=== PATIENT | male | born 1970 | race Caucasian/White ===

== ENCOUNTER 2021-04-01 22:09 | Inpatient (IN) ==
[2021-04-01] MEDS ORDERED: ACETAMINOPHEN 1,000 MG/100 ML VIAL IV STA (23:56)
[2021-04-02 00:09] LABS: Basophils # (auto) 0.03 K/uL (0-0.2); Basophils % (auto) 0.3 %; Eosinophils # (auto) 0.46 K/uL (0-0.5); Hematocrit (blood only) 43.5 % (42-52); Immature Granulocytes # (auto) 0.03 K/uL (0.00-0.02); Immature Granulocytes % (auto) 0.3 %; Lymphocytes # (auto) 1.76 K/uL (1.2-3.4); Lymphocytes % (auto) 15.3 %; Mean Corpuscular Hemoglobin 31.4 pg (25-34); Mean Corpuscular Hgb Conc 34.5 g/dL (32-36); Mean Corpuscular Volume 91.2 fL (80-100); Mean Platelet Volume 10.1 fL (7.4-10.4); Monocytes # (auto) 0.94 K/uL (0.11-0.59); Monocytes % (auto) 8.2 %; Neutrophils # (auto) 8.31 K/uL (1.4-6.5); Neutrophils % (auto) 71.9 %; Platelet Count 216 K/uL (130-400); RDW Coefficient of Variation 13.8 % (11.5-14.5); RDW Standard Deviation 46.3 fL (36.4-46.3); Red Blood Count 4.77 M/uL (4.7-6.1); White Blood Count 11.53 K/uL (4.8-10.8)
[2021-04-02 00:21] LABS: INR 2.3 (0.9-1.1); Partial Thromboplastin Ratio 1.5; Partial Thromboplastin Time 40.1 Seconds (21.0-31.0); Prothrombin Time 21.9 Seconds (9.0-12.0)
[2021-04-02 00:26] LABS: Alanine Aminotransferase 25 U/L (12-78); Albumin Level 3.6 gm/dl (3.4-5.0); Aspartate Aminotransferase 14 U/L (15-37); BUN Creatinine Ratio 17.1 (10-20); Blood Urea Nitrogen 12 mg/dl (7-18); Calcium 8.7 mg/dl (8.5-10.1); Carbon Dioxide 29 mmol/L (21-32); Chloride 108 mmol/L (98-107); Creatinine Clr Calc Pharmacy 124.6 ml/min; Est GFR (African American) 122.7 ml/min; Est GFR (Non-African American) 105.9 ml/min; Glucose 91 mg/dl (70-99); Potassium 3.7 mmol/L (3.5-5.1); Sodium 141 mmol/L (136-145)
[2021-04-02 00:31] LABS: Albumin Globulin Ratio 0.9 (0.9-2); Alkaline Phosphatase 95 U/L (45-117); Bilirubin,Total 0.6 mg/dl (0.2-1); Total Protein 7.6 gm/dl (6.4-8.2); Troponin I < 0.015 ng/ml (0-0.045)
--- NOTE | 2021-04-02 01:58 | Emergency Department Note ---
History of Present Illness General Chief complaint: Leg Injury/Pain Stated complaint: LEFT LEG PAIN SWELLING TINGLING-JUST GOT OFF FLHT Time Seen by Provider: 04/01/21 23:45 History of Present Illness Maximum Pain Intensity: 2 This 51-year-old currently on Coumadin for DVT in the right leg presents to the ER complaining of left leg pain and swelling with ongoing cough and congestion who is an appointment later this month with pulmonology and is supposed to have a CAT scan of his chest Location: Left leg and chest Quality: Uncomfortable Severity: Moderate Duration: Leg pain started today Timing: Patient flew back from [place] today Context: Family was concerned and came in Modifying factors: better with elevation of the leg; worse with activity Patient states he still has a cough and has some breathing issues. He has a scheduled CT of his chest later this month. He would like to have it now. Patient is on Coumadin for DVT of the right leg. Symptoms today are now in the left leg. He has not missed a dose. Patient denies abdominal pain, fever, chills, numbness, tingling. No trauma to the area. He does not smoke. Home Medications Medication Instructions Recorded Confirmed Type amoxicillin-pot clavulanate 1 tab PO BID #20 tab 01/09/21 Rx [Augmentin] ibuprofen [Advil] 400 mg PO DIRECTED PRN 01/09/21 01/09/21 History Allergies Allergy/AdvReac Type Severity Reaction Status Date / Time No Known Allergies Allergy Verified 01/09/21 16:11 Past Med/Surg History Medical History (Updated 04/02/21 @ 14:31 by Petar Lehman MD) Abnormal CT scan, chest COVID-19 Fatigue Superficial thrombophlebitis of right leg Surgical History No pertinent past surgical history Social History Smoking Status: Never smoker Hx Alcohol Use: Yes Alcohol type: beer Hx Substance Use: No Preferred Language: Ukrainian Material Handler Required: No Beliefs That Will Affect Care: None Current Living Situation: Spouse Other Information That Helps Us Care for You: No Feels Safe at Home: Yes Safety Concerns: Feels Safe At This Time Review of Systems A total of 10 systems reviewed and were otherwise negative Physical Exam Vital Signs Vital Signs - 24 hr 04/02/21 01:31 04/02/21 02:32 04/02/21 02:59 Pulse Rate [Right Finger] 73 70 72 Respiratory Rate 20 20 20 Blood Pressure [Left Arm] 153/103 H 125/81 139/84 Blood Pressure Mean [Left Arm] 119 95 102 Pulse Oximetry 93 92 95 Oxygen Delivery Method Room Air Room Air Room Air 04/02/21 04:10 04/02/21 04:58 Pulse Rate [Right Finger] 77 70 Respiratory Rate 20 20 Blood Pressure [Left Arm] 144/85 H 134/87 Blood Pressure Mean [Left Arm] 104 102 Pulse Oximetry 92 93 Oxygen Delivery Method Room Air Room Air VITALS: Vitals are noted on the nurse's note and reviewed by myself. Vital signs stable. GENERAL: Pleasant male, in no acute distress, nondiaphoretic, well-developed we ll-nourished. SKIN: The skin was without rashes, erythema, edema, or bruising. There is no tenting of the skin. Capillary reflex less than 2 seconds. HEAD: Normocephalic atraumatic. EARS: External auditory canals clear EYES: Pupils equal round and reactive to light and accommodation. Conjunctivae without injection, sclerae without icterus. Extraocular movements intact. NOSE: Patent, turbinates without inflammation or discharge. MOUTH: Mucous membranes moist. Pharynx without erythema or exudate. Uvula midline. Airway patent. Tongue does not deviate. NECK: Supple without nuchal rigidity. No lymphadenopathy. No thyromegaly. Cervical spine is nontender. No JVD. HEART: Regular rate and rhythm LUNGS: Clear to auscultation bilaterally without wheezes, rales or rhonchi. No retractions or accessory muscle use. ABDOMEN: Positive bowel sounds x 4. Normal tympanic percussion. Soft, nontender, without masses or organomegaly. Richardson sign negative. No guarding or rebound tenderness. No CVA tenderness MUSCULOSKELETAL: No muscle atrophy, erythema, or edema noted. Left calf tender to palpation. NEURO: Patient was alert and oriented to person place and time. Normal sensat ion to light and sharp touch. No focal neurological deficits. Course Administered Medications Heparin Sodium/Dextrose (Heparin Sodium/Dextrose) 25,000 units in 500 mls @ 29 mls/hr IV .[id number] [facility]; Protocol Stop: 05/02/21 04:42 Last Admin: 04/02/21 22:15 Dose: 1,450 units/hr, 29 mls/hr Documented by: [id number] Cosigned by: [id number] Titration: 04/02/21 22:15 Dose: 1,450 units/hr, 29 mls/hr Documented by: [id number] Cosigned by: [id number] Titration: 04/02/21 19:06 Dose: 1,450 units/hr, 29 mls/hr Documented by: [id number] Cosigned by: [id number] Titration: 04/02/21 11:00 Dose: 1,450 units/hr, 29 mls/hr Documented by: [id number] Cosigned by: [id number] Admin: 04/02/21 06:50 Dose: 1,450 units/hr, 29 mls/hr Documented by: [id number] Cosigned by: [id number] Admin: 04/02/21 04:57 Dose: Not Given Documented by: [id number] Lactated Ringer's (Lr) 1,000 mls @ 50 mls/hr IV .Q20H ONE Stop: 04/03/21 02:47 Last Admin: 04/02/21 08:41 Dose: 50 mls/hr Documented by: [id number] Discontinued Medications Heparin Sodium/Dextrose (Heparin 45885 Unit/500 Ml D5w) Confirm Administered Dose 25,000 units IV .STK-MED ONE Stop: 04/02/21 04:39 Last Admin: 04/02/21 04:43 Dose: 1,450 units Documented by: [id number] Cosigned by: [id number] Acetaminophen (Ofirmev) 1,000 mg in 100 mls @ 400 mls/hr IV NOW STA Stop: 04/02/21 00:10 Last Infusion: 04/02/21 00:30 Dose: 0 mls/hr Documented by: [id number] Admin: 04/02/21 00:07 Dose: 400 mls/hr Documented by: [id number] Ioversol (Optiray 350 500ml) 117 ml IV ONCE ONE Stop: 04/02/21 04:02 Last Admin: 04/02/21 04:01 Dose: 117 ml Documented by: [id number] Medical Decision Making Medical Records Attestation: I reviewed the patient's medical records. Home Medications Current Medication List: was personally reviewed by me Laboratory Data Attestation: I reviewed the patient's lab results. Result diagrams: 04/02/21 10:22 04/02/21 10:22 Lab Results 04/01/21 04/01/21 04/01/21 Range/Units 23:58 23:58 23:58 WBC 11.53 H (4.8-10.8) K/uL RBC 4.77 (4.7-6.1) M/uL Hgb 15.0 (14.0-18.0) g/dL Hct 43.5 (42-52) % MCV 91.2 (80-100) fL MCH 31.4 (25-34) pg MCHC 34.5 (32-36) g/dL RDW Std Deviation 46.3 (36.4-46.3) fL RDW Coeff of Jose 13.8 (11.5-14.5) % Plt Count 216 (130-400) K/uL MPV 10.1 (7.4-10.4) fL Immature Gran % (Auto) 0.3 % Neut % (Auto) 71.9 % Lymph % (Auto) 15.3 % Banner % (Auto) 8.2 % Eos % (Auto) 4.0 % Baso % (Auto) 0.3 % Neut # (Auto) 8.31 H (1.4-6.5) K/uL Lymph # (Auto) 1.76 (1.2-3.4) K/uL Banner # (Auto) 0.94 H (0.11-0.59) K/uL Eos # (Auto) 0.46 (0-0.5) K/uL Baso # (Auto) 0.03 (0-0.2) K/uL Immature Gran # (Auto) 0.03 H (0.00-0.02) K/uL PT 21.9 H (9.0-12.0) Seconds INR 2.3 H (0.9-1.1) APTT 40.1 H (21.0-31.0) Seconds PTT Ratio 1.5 Sodium 141 (136-145) mmol/L Potassium 3.7 (3.5-5.1) mmol/L Chloride 108 H (98-107) mmol/L Carbon Dioxide 29 (21-32) mmol/L Anion Gap 4.0 (3-11) BUN 12 (7-18) mg/dl Creatinine 0.73 (0.6-1.4) mg/dl Est Cr Clr Drug Dosing 124.6 ml/min Est GFR ( Amer) 122.7 ml/min Est GFR (Non-Af Amer) 105.9 ml/min BUN/Creatinine Ratio 17.1 (10-20) Glucose 91 (70-99) mg/dl Calcium 8.7 (8.5-10.1) mg/dl Magnesium (1.8-2.4) mg/dl Total Bilirubin 0.6 (0.2-1) mg/dl AST 14 L (15-37) U/L ALT 25 (12-78) U/L Alkaline Phosphatase 95 (45-117) U/L Troponin I < 0.015 (0-0.045) ng/ml NT-Pro-B Natriuret Pep (0-900) pg/ml Total Protein 7.6 (6.4-8.2) gm/dl Albumin 3.6 (3.4-5.0) gm/dl Globulin 4.0 (2.5-4.0) gm/dl Albumin/Globulin Ratio 0.9 (0.9-2) COVID-19 Eval Order SARS-CoV-2 (PCR) (Negative) 04/01/21 04/02/21 04/02/21 Range/Units 23:58 04:10 04:10 WBC (4.8-10.8) K/uL RBC (4.7-6.1) M/uL Hgb (14.0-18.0) g/dL Hct (42-52) % MCV (80-100) fL MCH (25-34) pg MCHC (32-36) g/dL RDW Std Deviation (36.4-46.3) fL RDW Coeff of Jose (11.5-14.5) % Plt Count (130-400) K/uL MPV (7.4-10.4) fL Immature Gran % (Auto) % Neut % (Auto) % Lymph % (Auto) % Banner % (Auto) % Eos % (Auto) % Baso % (Auto) % Neut # (Auto) (1.4-6.5) K/uL Lymph # (Auto) (1.2-3.4) K/uL Banner # (Auto) (0.11-0.59) K/uL Eos # (Auto) (0-0.5) K/uL Baso # (Auto) (0-0.2) K/uL Immature Gran # (Auto) (0.00-0.02) K/uL PT (9.0-12.0) Seconds INR (0.9-1.1) APTT (21.0-31.0) Seconds PTT Ratio Sodium (136-145) mmol/L Potassium (3.5-5.1) mmol/L Chloride (98-107) mmol/L Carbon Dioxide (21-32) mmol/L Anion Gap (3-11) BUN (7-18) mg/dl Creatinine (0.6-1.4) mg/dl Est Cr Clr Drug Dosing ml/min Est GFR ( Amer) ml/min Est GFR (Non-Af Amer) ml/min BUN/Creatinine Ratio (10-20) Glucose (70-99) mg/dl Calcium (8.5-10.1) mg/dl Magnesium 2.4 (1.8-2.4) mg/dl Total Bilirubin (0.2-1) mg/dl AST (15-37) U/L ALT (12-78) U/L Alkaline Phosphatase (45-117) U/L Troponin I (0-0.045) ng/ml NT-Pro-B Natriuret Pep 27 (0-900) pg/ml Total Protein (6.4-8.2) gm/dl Albumin (3.4-5.0) gm/dl Globulin (2.5-4.0) gm/dl Albumin/Globulin Ratio (0.9-2) COVID-19 Eval Order Covid19 at [facility] SARS-CoV-2 (PCR) NEGATIVE (Negative) Imaging Data Attestation: I personally reviewed and interpreted this imaging study as follows: Radiologist's Impression: Chest CTA 04/01/21 23:57 CT ANGIOGRAM OF THE CHEST CLINICAL HISTORY: Eval for PE COMPARISON STUDY: January 09, 2021 TECHNIQUE: Following the IV administration of 110 mL of Optiray, CT angiogram of the thorax was performed from the thoracic inlet to the lung bases utilizing the pulmonary embolus protocol. Images are reviewed in the axial, sagittal, and coronal planes. IV contrast was administered without complication. MIP imaging was performed. A dose lowering technique was utilized adhering to the principles of ALARA. CT DOSE: 358.63 mGy.cm FINDINGS: No definite pulmonary filling defects are seen within pulmonary artery and its branches to suggest pulmonary embolus however opacification of the main pulmonary artery is insufficient for adequate evaluation for pulmonary embolus. There is no axillary, supra clavicle or internal mammary lymphadenopathy seen. Mottled mediastinal lymph nodes are seen measuring up to 1.4 cm in short axis in AP window, 1.6 cm in the right axilla and 0.8 cm and subcarinal region. Few calcifications within hilar and subcarinal lymph nodes are seen which could be sequela from prior granulomatous process. Visualized portion of thyroid gland shows no evidence of focal lesions. Minimal hiatal hernia is seen. Aorta is normal in caliber. Main pulmonary artery is slightly dilated measuring 2.9 cm in diameter. There is minimal four-chamber cardiomegaly. No right heart strain is seen. Minimal pericardial effusion is demonstrated. Tracheobronchial tree is patent. Diffuse septal thickening, peribronchial vascular edema and patchy areas of groundglass attenuation predominantly within bilateral upper lobes are worsening within the left upper and lower lobes and new within right upper and lower right lobes. Involvement of the left lung is worse than right. Limited evaluation of upper abdominal viscera shows no evidence of acute abnormalities. Evaluation of osseous structures shows mild degenerative changes of the spine and thoracic scoliosis IMPRESSION: 1. No definite pulmonary embolus is seen however opacification within main pulmonary artery is insufficient for adequate evaluation for pulmonary embolus. 2. Interval worsening of diffuse septal thickening, peribronchial vascular edema and patchy areas of groundglass attenuation which likely represent pulmonary edema. No definite compression of pulmonary veins by enlarged mediastinal lymph nodes. Lymphangiectatic carcinomatosis is less likely due to nonnodular appearance of septal thickening. Please correlate above-mentioned findings was prior history of neoplastic process. Short-term follow-up is per clinical protocol. 3. Minimal pericardial effusion. ACT 112: Positive. There are findings on this exam that require communication between the performing entity and the patient following Patient Test Result Information Act ([place] Act 112) guidelines. The above report was generated using voice recognition software. It may contain grammatical, syntax or spelling errors. Electronically signed by: Sujey Moura DO 04/02/2021 1:46 PM MDM Narrative Prior records reviewed and summarized above. Triage Nursing notes reviewed. Additional history obtained from the family. The patient's history was concerning for swelling and pain in the leg along with ongoing cough and chest issues Differential diagnosis: Etiologies such as DVT, musculoskeletal, infection, joint effusion, trauma, lymphedema, idiopathic, CHF,pulmonary, cardiac, as well as others were entertained.. Physical examination: The physical examination revealed no signs of infection. Neurovascularly intact. ER treatment provided: An order was placed for continuous cardiac monitoring. The monitor shows a rate of 60-1 10 with a sinus rhythm. Tylenol On reassessment the patient felt better. Diagnostics interpreted by me: EKG: Normal sinus, normal intervals, no acute ST-T wave changes. Impression normal sinus rhythm interpreted by myself EKG ordered for chest I think arrhythmia is unlikely. EKG shows normal sinus rhythm with no interval abnormalities such as QT prolongation or WPW. There are no findings to suggest Brugada syndrome. Cardiac monitoring in the emergency department reveals no tachycardic or bradycardic dysrhythmia. Hypertrophic cardiomyopathy was considered but there are no clear historical elements pointing toward this. EKG is not suggestive. The QRS voltage is not extremely large and there are no suggestive Q waves. The labs revealed stable H&H, mild leukocytosis Therapeutic INR Imaging studies: US VENOUS BILATERAL LOWER EXTREMITIES: RIGHT: Nearly occlusive thrombus involving the right popliteal vein, with some partially occlusive changes extending into the calf veins. The thrombus in the calf veins was noted on the examination 01/09/2021 and there was some minimal echogenic material in the popliteal vein at that time. However, there is progression of thrombus in the right popliteal vein from the previous exam. No extension of the popliteal thrombus central into the right femoral or common femoral veins. LEFT: There is partially occlusive to completely occlusive thrombus throughout the left posterior tibial veins and the left peroneal veins. There is no extension centrally of the calf veins to involve the left popliteal vein, femoral vein or common femoral vein. Radiologist: Wilfred Cheng MD CTA CHEST: No evidence for pulmonary embolism. Advancing ground-glass opacities throughout the lungs. Also progressing prominent interstitial, perivascular and peribronchial interstitial thickening when compared to the examination 01/09/2021. 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 Similar AP window and bilateral hilar lymphadenopathy. The thoracic aorta and cardiac chambers are unremarkable and stable in appearance. Trace pericardial effusion. No acute osseous or significant overlying soft tissue abnormality. Consultation: A consultation was placed with Dr Nereyda badillo. The case was discussed and diagnostics were reviewed. The patient was evaluated in the ER for further treatment. This appears to be consistent with worsening bilateral DVTs with lung opacities concerning for cancer. Patient's Coumadin level is therapeutic. He developed DVTs while on Coumadin. Medicine was consulted. He will be evaluated for possible admission. By the evaluation outlined above emergent etiologies such as septic joint, trauma, CHF, as well as others were deemed relatively unlikely. The pt informed about the findings as listed above. All questions were answered and pleased with the treatment. The chart was completed utilizing [employer] Speech voice recognition software. Grammatical errors, random word insertions, pronoun errors, and incomplete sentences are an occassional consequence of this system due to software limitations, ambient noise, and hardware issues. Any formal questions or concerns about the content, text, or information contained within the body of this dictation should be directly addressed to the physician media assistant for clarification. Impression & Plan DVT (deep venous thrombosis), Ground glass opacity present on imaging of lung Discharge Plan Visit Data Chief Complaint: Leg Injury/Pain Stated Complaint: LEFT LEG PAIN SWELLING TINGLING-JUST GOT OFF FLHT ED Provider: Avery German ED Midlevel Provider: Madelyn Kwong Discharge Problem: DVT (deep venous thrombosis), Ground glass opacity present on imaging of lung Patient Disposition: Admitted As Inpatient Condition: Good Discharge Instructions Interventions: ED Discharge Assessment Last Done: 04/02/21 06:21 Discharge Problem: DVT (deep venous thrombosis) Qualifiers: DVT location: lower extremity Affected thrombotic vein of extremity: unspecified vein of extremity Chronicity: acute Laterality: bilateral Qualified Code(s): I82.403 - Acute embolism and thrombosis of unspecified deep veins of lower extremity, bilateral
[2021-04-02] MEDS ORDERED: OPTIRAY 350 500ml IV ONE (04:01)
[2021-04-02] MEDS ORDERED: Heparin IV Adult Wt-Based Standard *NO* Bolus Protocol IV STA (04:29)
--- NOTE | 2021-04-02 04:30 | History & Physical Report ---
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 Pulmonary consult Re: second opinion/inpatient work-up for progressive lung pathology as per patient/ request May benefit from Hematology consultation regarding recommendations for anticoagulation upon discharge given Coumadin failure. DVT prophylaxis. IV Heparin Full code Patient's requesting updates from providers. Ms. Rose Mary Brothers, contact #[phone]. Text document was generated using [employer] voice recognition software. It may contain grammatical or spelling errors. Kindly contact undersigned for clarification of any documentation item in question. History of Present Illness Chief Complaint: Left leg swelling/pain Primary Care Provider: Matthew Spivey PA-C History obtained from patient, family, and records. Medical history significant for recent RLE DVT on Coumadin, pulmonary nodules on recent CT imaging. Patient has had chronic cough since Covid 19 infection from September 2020. Denies headache, weight loss, night sweats, abdominal pain. Denies aspiration. No improvement despite multiple outpatient antibiotic and steroid courses. 3 months ago, patient noted right leg swelling after plane travel to [place] for a in the family. Patient seen at the [facility] ER. CT chest showed no pulmonary embolism. Nonspecific mediastinal and hilar lymphadenopathy. Scattered solid right lung pulmonary nodules measuring up to 4 mm in diameter. 13 mm groundglass right upper lobe nodule. Diffuse left lung interlobular edema as well as an area of masslike nodular consolidation within left lower lobe measuring 4 to 6 mm. Pronounced thickening bronchovascular bu ndles most pronounced within left lower lobe with prominent bronchial wall thickening and soft tissue encasing left lower lobe pulmonary arteries. Diagnostic entities include sarcoidosis, lymphangitic carcinomatosis and certain types of pneumonia. Right LE venous Dopplers showed right popliteal vein and posterior tibial vein DVT and probable thrombus within right peroneal vein. Thrombus varicosities of the right calf. Patient discharged on weight-based Lovenox. Patient eventually bridged to Coumadin by outpatient anticoagulation clinic. Patient tolerated Coumadin well as per . Recent outpatient INR was 2.5 (03/15/21). 2 months ago, patient seen at the office by [facility] [place] state farm agent team member for abnormal CT results. As per documentation, lung opacities and adenopathy on CT with broad differenti al diagnosis. (Resolving COVID-19 pneumonia vs other pneumonias vs advanced lung malignancy) Parks And Recreation Manager recommended full PFTs including DLCO, lung volumes, spirometry, 6- minute walk on room air. Repeat CT chest in 3 months before next appointment third week of March,. Levaquin course prescribed. As per specialist documentation, patient offered bronchoscopy with EBUS and transbronchial biopsies but patient would like to defer until repeat imaging in 3 months. 3 weeks ago, patient noted RLE pain with persistent cough symptoms. Outpatient ultrasound requested by PCP negative for DVT. Worsening cough symptoms on follow-up visit at PCPs office 2 weeks ago. Outpatient chest x-ray showed worsening diffuse interstitial and airspace opacification throughout both lungs with small left effusion concerning for pulmonary edema and multifocal pneumonia in the correct setting. Patient and family were on a vacation in [place] when abnormal CXR was communicated by PCPs office. Azithromycin course prescribed with some improvement in cough symptoms. Patient left [place] to go back to [facility] 2 days ago. Patient noted achy swelling this time involving left leg in addition to chronic right leg discomfort/swelling. Patient compliant with home medications. Usual shortness of breath on exertion. Patient denies chest pain. Patient brought to ER by upon arrival back home for evaluation. 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 Allergies Allergy/AdvReac Type Severity Reaction Status Date / Time No Known Allergies Allergy Verified 01/09/21 16:11 Home Medications Medication Instructions Recorded Confirmed Type amoxicillin-pot clavulanate 1 tab PO BID #20 tab 01/09/21 Rx [Augmentin] ibuprofen [Advil] 400 mg PO DIRECTED PRN 01/09/21 01/09/21 History Past Med/Surg History Medical History (Updated 04/02/21 @ 05:13 by Anthony Dawn MD) COVID-19 Superficial thrombophlebitis of right leg Surgical History (Updated 04/02/21 @ 01:58 by Madelyn Kwong PA-C) No pertinent past surgical history Social History Smoking Status: Never smoker Preferred Language: Cameroonian Feels Safe at Home: Yes Review of Systems Review of Systems: As per HPI, all 10 systems reviewed, all other ROS negative Physical Exam Physical Exam: GENERAL: Comfortable, pleasant, no respiratory distress SKIN: suntanned, warm HEENT: Opp palpebral conjunctivae, no ptosis, dry buccal mucosa NECK : Supple, no tenderness CHEST : Decreased breath sounds, no tenderness HEART : RRR, no obvious murmurs ABDOMEN: Some distention, nontender EXTREMITIES : LE swelling right greater than the left, bilateral LE tenderness, no other conspicuous deformities noted NEUROLOGIC : Coherent, no facial asymmetry, no other gross focality Results & Data Results & Data ([facility]) Vital Signs (Past 12 Hours) Vital Signs Temp Pulse Pulse Resp BP BP Pulse Ox 04/02/21 04:10 77 20 144/85 H 92 04/02/21 02:59 72 20 139/84 95 04/02/21 02:32 70 20 125/81 92 04/02/21 01:31 73 20 153/103 H 93 04/01/21 23:50 85 20 153/103 H 95 04/01/21 22:12 37.1 C 85 18 147/95 H 95 Laboratory Results Laboratory Results WBC 11.53 K/uL (4.8-10.8) H 04/01/21 23:58 RBC 4.77 M/uL (4.7-6.1) 04/01/21 23:58 Hgb 15.0 g/dL (14.0-18.0) 04/01/21 23:58 Hct 43.5 % (42-52) 04/01/21 23:58 MCV 91.2 fL (80-100) 04/01/21 23:58 MCH 31.4 pg (25-34) 04/01/21 23:58 MCHC 34.5 g/dL (32-36) 04/01/21 23:58 RDW Std Deviation 46.3 fL (36.4-46.3) 04/01/21 23:58 RDW Coeff of Jose 13.8 % (11.5-14.5) 04/01/21 23:58 Plt Count 216 K/uL (130-400) 04/01/21 23:58 MPV 10.1 fL (7.4-10.4) 04/01/21 23:58 Immature Gran % (Auto) 0.3 % 04/01/21 23:58 Neut % (Auto) 71.9 % 04/01/21 23:58 Lymph % (Auto) 15.3 % 04/01/21 23:58 Barren % (Auto) 8.2 % 04/01/21 23:58 Eos % (Auto) 4.0 % 04/01/21 23:58 Baso % (Auto) 0.3 % 04/01/21 23:58 Neut # (Auto) 8.31 K/uL (1.4-6.5) H 04/01/21 23:58 Lymph # (Auto) 1.76 K/uL (1.2-3.4) 04/01/21 23:58 Barren # (Auto) 0.94 K/uL (0.11-0.59) H 04/01/21 23:58 Eos # (Auto) 0.46 K/uL (0-0.5) 04/01/21 23:58 Baso # (Auto) 0.03 K/uL (0-0.2) 04/01/21 23:58 Immature Gran # (Auto) 0.03 K/uL (0.00-0.02) H 04/01/21 23:58 PT 21.9 Seconds (9.0-12.0) H 04/01/21 23:58 INR 2.3 (0.9-1.1) H 04/01/21 23:58 APTT 40.1 Seconds (21.0-31.0) H 04/01/21 23:58 PTT Ratio 1.5 04/01/21 23:58 Sodium 141 mmol/L (136-145) 04/01/21 23:58 Potassium 3.7 mmol/L (3.5-5.1) 04/01/21 23:58 Chloride 108 mmol/L (98-107) H 04/01/21 23:58 Carbon Dioxide 29 mmol/L (21-32) 04/01/21 23:58 Anion Gap 4.0 (3-11) 04/01/21 23:58 BUN 12 mg/dl (7-18) 04/01/21 23:58 Creatinine 0.73 mg/dl (0.6-1.4) 04/01/21 23:58 Est Cr Clr Drug Dosing 124.6 ml/min 04/01/21 23:58 Est GFR ( Amer) 122.7 ml/min 04/01/21 23:58 Est GFR (Non-Af Amer) 105.9 ml/min 04/01/21 23:58 BUN/Creatinine Ratio 17.1 (10-20) 04/01/21 23:58 Glucose 91 mg/dl (70-99) 04/01/21 23:58 Calcium 8.7 mg/dl (8.5-10.1) 04/01/21 23:58 Total Bilirubin 0.6 mg/dl (0.2-1) 04/01/21 23:58 AST 14 U/L (15-37) L 04/01/21 23:58 ALT 25 U/L (12-78) 04/01/21 23:58 Alkaline Phosphatase 95 U/L (45-117) 04/01/21 23:58 Troponin I < 0.015 ng/ml (0-0.045) 04/01/21 23:58 Total Protein 7.6 gm/dl (6.4-8.2) 04/01/21 23:58 Albumin 3.6 gm/dl (3.4-5.0) 04/01/21 23:58 Globulin 4.0 gm/dl (2.5-4.0) 04/01/21 23:58 Albumin/Globulin Ratio 0.9 (0.9-2) 04/01/21 23:58 COVID-19 Eval Order Covid19 at [facility] 04/02/21 04:[address] chest initial read: No evidence for pulmonary embolism. Advancing ground-glass opacities throughout the lungs. Also progressing prominent interstitial, perivascular and peribronchial interstitial thickening when compared to the examination 01/09/2021. 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 Similar AP window and bilateral hilar lymphadenopathy. The thoracic aorta and cardiac chambers are unremarkable and stable in appearance. Trace pericardial effusion. No acute osseous or significant overlying soft tissue abnormality. LE venous Dopplers initial read: RIGHT: Nearly occlusive thrombus involving the right popliteal vein, with some partially occlusive changes extending into the calf veins. The thrombus in the calf veins was noted on the examination 01/09/2021 and there was some minimal echogenic material in the popliteal vein at that time. However, there is progression of thrombus in the right popliteal vein from the previous exam. No extension of the popliteal thrombus central into the right femoral or common femoral veins. LEFT: There is partially occlusive to completely occlusive thrombus throughout the left posterior tibial veins and the left peroneal veins. There is no extension centrally of the calf veins to involve the left popliteal vein, femoral vein or common femoral vein. EKG as per my interpretation rate 70, NSR, normal axis, no ischemia
[2021-04-02] MEDS ORDERED: HEPARIN 25000 UNIT/500 ML D5W IV ONE (04:38)
[2021-04-02] MEDS: HEPARIN SODIUM/DEXTROSE 25,000 UNITS/500 ML BAG IV SCH ×3 (04:57→22:15)
[2021-04-02 05:59] LABS: Magnesium 2.4 mg/dl (1.8-2.4)
[2021-04-02] MEDS ORDERED: LACTATED RINGER'S 1,000 ML IV ONE (06:48)
[2021-04-02] MEDS ORDERED: MoRPHine SULFATE 2 MG/ML CARP IV PRN (06:48)
[2021-04-02] MEDS ORDERED: traMADol HCL 50 MG TABLET PO PRN (06:48)
[2021-04-02] MEDS ORDERED: LORazepam 0.25 MG/0.5 ML VIAL IV PRN (06:48)
[2021-04-02] MEDS ORDERED: ACETAMINOPHEN 325 MG TAB PO PRN (06:48)
[2021-04-02] MEDS ORDERED: PROMETHAZINE HCL 12.5 MG in SODIUM CHLORIDE 0.9% 50 ML IV PRN (06:48)
--- NOTE | 2021-04-02 08:26 | Electrocardiogram Report ---
Test Reason : Blood Pressure : / mmHG Vent. Rate : 069 BPM Atrial Rate : 069 BPM P-R Int : 188 ms QRS Dur : 096 ms QT Int : 406 ms P-R-T Axes : 044 039 040 degrees QTc Int : 435 ms Poor data quality, interpretation may be adversely affected Normal sinus rhythm Normal ECG No previous ECGs available Confirmed by Gio House ([id number]) on 04/02/2021 8:26:40 AM Referred By: REFERRED SELF Confirmed By:Gio House
--- NOTE | 2021-04-02 08:26 | Electrocardiogram Report ---
Test Reason : Blood Pressure : / mmHG Vent. Rate : 068 BPM Atrial Rate : 068 BPM P-R Int : 182 ms QRS Dur : 098 ms QT Int : 416 ms P-R-T Axes : 045 052 034 degrees QTc Int : 442 ms Normal sinus rhythm Normal ECG When compared with ECG of 02-APR-2021 02:23, No significant change was found Confirmed by Gio House ([id number]) on 04/02/2021 8:26:51 AM Referred By: REFERRED SELF Confirmed By:Gio House
--- NOTE | 2021-04-02 09:17 | Ultrasound Report ---
US venous doppler LE BI CLINICAL HISTORY: swelling, hx dvt COMPARISON STUDY: January 09, 2021 FINDINGS: RIGHT: Nonocclusive deep venous thrombosis is seen within mid-distal right popliteal vein as well as in 1 of 2 posterior tibialis veins. Above-mentioned findings were also seen during prior. LEFT: Thrombosis is seen within proximal to midportion of the one of 2 posterior tibialis veins and within distal aspect of the both posterior tibialis veins. Thrombus is also seen within left peroneal veins. The above mentioned findings are new since prior study. IMPRESSION: DVT involving calf veins on the left is new since prior study. Redemonstration of deep venous thrombosis on the right not significantly changed since prior study of ACT 112: Negative or not required by law. The above report was generated using voice recognition software. It may contain grammatical, syntax o r spelling errors. Electronically signed by: Sujey Moura DO 04/02/2021 9:16 AM
[2021-04-02 10:43] LABS: Basophils # (auto) 0.04 K/uL (0-0.2); Basophils % (auto) 0.4 %; Eosinophils # (auto) 0.43 K/uL (0-0.5); Eosinophils % (auto) 4.7 %; Hematocrit (blood only) 42.8 % (42-52); Hemoglobin 14.6 g/dL (14.0-18.0); Immature Granulocytes # (auto) 0.02 K/uL (0.00-0.02); Immature Granulocytes % (auto) 0.2 %; Lymphocytes # (auto) 1.57 K/uL (1.2-3.4); Lymphocytes % (auto) 17.2 %; Mean Corpuscular Hemoglobin 31.6 pg (25-34); Mean Corpuscular Hgb Conc 34.1 g/dL (32-36); Mean Corpuscular Volume 92.6 fL (80-100); Mean Platelet Volume 10.5 fL (7.4-10.4); Monocytes # (auto) 0.68 K/uL (0.11-0.59); Monocytes % (auto) 7.5 %; Neutrophils # (auto) 6.37 K/uL (1.4-6.5); Platelet Count 225 K/uL (130-400); RDW Coefficient of Variation 13.8 % (11.5-14.5); RDW Standard Deviation 47.1 fL (36.4-46.3); Red Blood Count 4.62 M/uL (4.7-6.1); White Blood Count 9.11 K/uL (4.8-10.8)
[2021-04-02 11:05] LABS: INR 1.9 (0.9-1.1); Partial Thromboplastin Ratio 2.3; Prothrombin Time 18.4 Seconds (9.0-12.0)
[2021-04-02 11:08] LABS: Calcium 8.2 mg/dl (8.5-10.1); Creatinine Clr Calc Pharmacy 151.6 ml/min; Est GFR (Non-African American) 114.8 ml/min; Potassium 3.7 mmol/L (3.5-5.1)
--- NOTE | 2021-04-02 13:48 | CT Scan Report ---
CT ANGIOGRAM OF THE CHEST CLINICAL HISTORY: Eval for PE COMPARISON STUDY: January 09, 2021 TECHNIQUE: Following the IV administration of 110 mL of Optiray, CT angiogram of the thorax was perfo rmed from the thoracic inlet to the lung bases utilizing the pulmonary embolus protocol. Images are r eviewed in the axial, sagittal, and coronal planes. IV contrast was administered without complication . MIP imaging was performed. A dose lowering technique was utilized adhering to the principles of AL MELLISSA. CT DOSE: 358.63 mGy.cm FINDINGS: No definite pulmonary filling defects are seen within pulmonary artery and its branches to suggest pu lmonary embolus however opacification of the main pulmonary artery is insufficient for adequate evalu ation for pulmonary embolus. There is no axillary, supra clavicle or internal mammary lymphadenopathy seen. Mottled mediastinal ly mph nodes are seen measuring up to 1.4 cm in short axis in AP window, 1.6 cm in the right axilla and 0.8 cm and subcarinal region. Few calcifications within hilar and subcarinal lymph nodes are seen whi ch could be sequela from prior granulomatous process. Visualized portion of thyroid gland shows no evidence of focal lesions. Minimal hiatal hernia is seen. Aorta is normal in caliber. Main pulmonary artery is slightly dilated measuring 2.9 cm in diameter. There is minimal four-chamber cardiomegaly. No right heart strain is seen. Minimal pericardial effusi on is demonstrated. Tracheobronchial tree is patent. Diffuse septal thickening, peribronchial vascular edema and patchy areas of groundglass attenuation p redominantly within bilateral upper lobes are worsening within the left upper and lower lobes and new within right upper and lower right lobes. Involvement of the left lung is worse than right. Limited evaluation of upper abdominal viscera shows no evidence of acute abnormalities. Evaluation of osseous structures shows mild degenerative changes of the spine and thoracic scoliosis IMPRESSION: 1. No definite pulmonary embolus is seen however opacification within main pulmonary artery is insuf ficient for adequate evaluation for pulmonary embolus. 2. Interval worsening of diffuse septal thickening, peribronchial vascular edema and patchy areas of groundglass attenuation which likely represent pulmonary edema. No definite compression of pulmonary veins by enlarged mediastinal lymph nodes. Lymphangiectatic carcinomatosis is less likely due to n onnodular appearance of septal thickening. Please correlate above-mentioned findings was prior histor y of neoplastic process. Short-term follow-up is per clinical protocol. 3. Minimal pericardial effusion. ACT 112: Positive. There are findings on this exam that require communication between the performing entity and the patient following Patient Test Result Information Act ([place] Act 112) guidelines. The above report was generated using voice recognition software. It may contain grammatical, syntax o r spelling errors. Electronically signed by: Sujey Moura DO 04/02/2021 1:46 PM
--- NOTE | 2021-04-02 14:29 | Hospitalist Progress Note ---
Date of Service April 02, 2021 Assessment & Plan (1) SOB (shortness of breath): Suspected pulmonary edema Mediastinal lymphadenopathy Cannot rule out neoplastic process H/O COVID-19 infection -CTA:No definite pulmonary embolus is seen however opacification within main pulmonary artery is insufficient for adequate evaluation for pulmonary embolus. Interval worsening of diffuse septal thickening, peribronchial vascular edema and patchy areas of groundglass attenuation which likely represent pulmonary edema. No definite compression of pulmonary veins by enlarged mediastinal lymph nodes. Lymphangiectatic carcinomatosis is less likely due to nonnodular appearance of septal thickening. Please correlate above-mentioned findings was prior history of neoplastic process. Short-term follow-up is per clinical protocol. Minimal pericardial effusion. -May need bronchoscopy for further evaluation Pulmonology consulted Saturating low 90s on room air Acute Left LE DVT H/O Right LE DVT on Coumadin (December 2020) -Venous Doppler: Thrombosis is seen within proximal to midportion of the one of 2 posterior tibialis veins and within distal aspect of the both posterior tibialis veins. Thrombus is also seen within left peroneal veins. The above mentioned findings are new since prior study. Nonocclusive deep venous thrombosis is seen within mid-distal right popliteal vein as well as in 1 of 2 posterior tibialis veins. Above-mentioned findings were also seen during prior. -? Coumadin failure -INR therapeutic on presentation -Coumadin held for possible procedure -Continue IV Heparin DVT Px: IV Heparin Code Status Full code Admission and Anticipated Discharge Date Admission Date: April 02, 2021 Subjective Patient is seen and examined at bedside States having cough with no expectoration since many weeks Reports having leg pain Denies chest pain, shortness of breath, dizziness, nausea, abdominal pain Offers no other complaints Discussed with pulmonology today Review of Systems Review of Systems: All systems reviewed & are unremarkable except as noted in HPI & below Physical Exam Physical Exam: Physical Exam: Vitals signs as noted above General Appearance:Moderately built and nourished, no apparent distress Head: normocephalic, Atraumatic Eyes: normal inspection, EOMI Neck: supple, Trachea midline Respiratory/Chest: Normal breath sounds, Basal Crackles Cardiovascular: S1, S2, No murmur Abdomen/GI:Soft, Non tender, Bowel sounds present Extremities/Musculoskeletal:normal inspection, 1+ R>L LE edema Neurologic/Psych:AAOX3, grossly no focal neurological deficits Skin: normal color, warm Results & Data Results & Data ([facility]) Vital Signs (Past 12 Hours) Vital Signs Temp Pulse Pulse Resp BP Pulse Ox 04/02/21 11:31 36.9 C 76 16 133/89 92 04/02/21 07:00 74 04/02/21 06:48 36.6 C 67 20 143/77 H 93 04/02/21 05:57 70 20 141/91 H 92 04/02/21 04:58 70 20 134/87 93 04/02/21 04:10 77 20 144/85 H 92 04/02/21 02:59 72 20 139/84 95 04/02/21 02:32 70 20 125/81 92 Laboratory Results Short CBC 04/01/21 04/02/21 Range/Units 23:58 10:22 WBC 11.53 H 9.11 (4.8-10.8) K/uL Hgb 15.0 14.6 (14.0-18.0) g/dL Hct 43.5 42.8 (42-52) % Plt Count 216 225 (130-400) K/uL BMP 04/01/21 04/02/21 23:58 10:22 Sodium 141 141 Potassium 3.7 3.7 Chloride 108 H 108 H Carbon Dioxide 29 29 BUN 12 10 Creatinine 0.73 0.60 Glucose 91 116 H Calcium 8.7 8.2 L Cardiac Enzymes 04/01/21 Range/Units 23:58 Troponin I < 0.015 (0-0.045) ng/ml Liver Function 04/01/21 Range/Units 23:58 Total Bilirubin 0.6 (0.2-1) mg/dl AST 14 L (15-37) U/L ALT 25 (12-78) U/L Alkaline Phosphatase 95 (45-117) U/L Albumin 3.6 (3.4-5.0) gm/dl
--- NOTE | 2021-04-02 14:37 | Pulmonary Consultation ---
Date of Consultation April 02, 2021 Assessment & Plan (1) Abnormal CT scan, chest: 51-year-old male with COVID-19 illness in September and recurrent DVT on warfarin therapy. Abnormal CT chest: His CT chest findings are highly concerning for malignancy. He is currently on a heparin drip. Bronchoscopy can be performed and will need to be coordinated with the cardiac cath rn will be air operations manager starting Saturday. Other differentials include, but less likely, are sarcoidosis, chronic hyper sensitivity pneumonitis, lymphocytic interstitial pneumonia and other disorders. Notably, his calcium level is within normal limits. Please have the patient be n.p.o. after midnight and hold his heparin drip starting at 6 AM. Shortness of breath and fatigue: Secondary to the underlying pulmonary process. Recurrent DVT: This may also be secondary to an underlying malignancy. Would suggest transitioning him to Lovenox or DOAC therapy as this is superior in the setting of malignancy if indeed malignancy is discovered. Thank you for the consultation. Pulmonary will continue to follow along with you. (2) SOB (shortness of breath): (3) Fatigue: History of Present Illness Reason for Consultation: Abnormal CT chest Attending Physician: Daniel Cervantes MD History of Present Illness 51-year-old male with a past medical history of recent right lower extremity DVT was placed on warfarin and COVID-19 illness in September who presented to the hospital due to lower extremity swelling. He was seen in in the emergency department 3 months ago and found to have a DVT in his right lower extremity. He was placed on warfarin. He also underwent a CT of his chest which demonstrated scattered pulmonary nodules with interlobular thickening and mediastinal adenopathy. He followed up with Dr. Michel who is in [facility] cardiac cath rn. It was recommended that he undergo a CT chest in 3 months for follow-up and bronchoscopy with biopsy was recommended. He was recently given azithromycin for cough and worsening shortness of breath 2 weeks ago. He was also recently on a trip to [place]. He noted aching in his left lower extremity. An ultrasound of his left lower extremity was completed and demonstrated DVT in his calf veins. Chest CTA was also completed no definitive evidence of pulmonary embolism was seen. Interval worsening septal thickening was noted. Enlarged mediastinal lymph nodes were seen as well. There is concern for lymphangitic carcinomatosis. Minimal pericardial effusion was noted. He is a lifelong non-smoker. He denies any personal history of cancer. 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 He notes occasional night sweats. He has been more fatigued as of late. He denies any substantial weight loss. I was able to speak to his via [employer] on the phone. Allergies Allergy/AdvReac Type Severity Reaction Status Date / Time No Known Allergies Allergy Verified 01/09/21 16:11 Home Medications Medication Instructions Recorded Confirmed Type amoxicillin-pot clavulanate 1 tab PO BID #20 tab 01/09/21 Rx [Augmentin] ibuprofen [Advil] 400 mg PO DIRECTED PRN 01/09/21 01/09/21 History Patient History Medical History COVID-19 Superficial thrombophlebitis of right leg Surgical History No pertinent past surgical history Social History Smoking Status: Never smoker Hx Alcohol Use: Yes Alcohol type: beer Hx Substance Use: No Preferred Language: Khmer Hand Former Required: No Beliefs That Will Affect Care: None Current Living Situation: Spouse Other Information That Helps Us Care for You: No Feels Safe at Home: Yes Safety Concerns: Feels Safe At This Time Review of Systems Review of Systems: All systems reviewed & are unremarkable except as noted in HPI & below Physical Exam Constitutional: WD/WN, vitals as above Respiratory: normal respiratory effort, lungs clear to auscultation Cardiovascular: RRR, no murmur, no edema Gastrointestinal (Abdomen): normal bowel sounds, soft, nontender, no hepatosplenomegaly Musculoskeletal: no cyanosis or clubbing, extremities motor strength 5/5 Skin: no rashes, warm and dry Neurologic: PERRL, EOMI, accommodation nl, no face palsy, no dysarthria Psychiatric: A+Ox3, euthymic affect Results & Data Results & Data ([facility]) Vital Signs (Past 12 Hours) Vital Signs Temp Pulse Pulse Resp BP Pulse Ox 04/02/21 11:31 98.4 F 76 16 133/89 92 04/02/21 07:00 74 04/02/21 06:48 97.9 F 67 20 143/77 H 93 04/02/21 05:57 70 20 141/91 H 92 04/02/21 04:58 70 20 134/87 93 04/02/21 04:10 77 20 144/85 H 92 04/02/21 02:59 72 20 139/84 95 04/02/21 02:32 70 20 125/81 92 Vital signs, labs and imaging reviewed PG Care Time/CCT Total # of Minutes Spent Total Time Spent with Patient: Total time spent is greater than 50% in coordination of care (as documented) at patient's floor/unit and/or counseling patient: Coding Level of Care Code 44768 Inpt Consult Level [address] scan, chest R93.89 SOB (shortness of breath) R06.02 Fatigue R53.83
[2021-04-03 08:36] LABS: Hematocrit (blood only) 43.6 % (42-52); Hemoglobin 14.9 g/dL (14.0-18.0); Mean Corpuscular Hemoglobin 31.1 pg (25-34); Mean Corpuscular Hgb Conc 34.2 g/dL (32-36); Mean Platelet Volume 10.4 fL (7.4-10.4); Platelet Count 228 K/uL (130-400); RDW Coefficient of Variation 13.7 % (11.5-14.5); RDW Standard Deviation 45.5 fL (36.4-46.3); Red Blood Count 4.79 M/uL (4.7-6.1); White Blood Count 9.33 K/uL (4.8-10.8)
--- NOTE | 2021-04-03 08:44 | Pulmonology Progress Note ---
Date of Service April 03, 2021 Assessment & Plan (1) Abnormal CT scan, chest: (2) Ground glass opacity present on imaging of lung: (3) SOB (shortness of breath): (4) DVT (deep venous thrombosis): Impression: 51-year-old male with diagnosis of Covid back in September and right lower extremity DVT 3 months ago. He has had persistent cough and an abnormal CT scan despite a course of antibiotics in the outpatient setting. Updated CT scan demonstrated patchy areas of consolidation with adenopathy and septal thickening. Adenopathy appears stable compared to prior CT scan from December 2020. Recommendations: 1. Differential diagnosis would include inflammatory lung disease including sarcoid, bronchocentric granulomatosis, and occupational lung disease. Cannot exclude malignancy. Patient will be scheduled for bronchoscopy with transbronchial biopsies, BAL, and endobronchial ultrasound of mediastinal lymph nodes. Discussed with scheduling today and the soonest that this procedure can be performed is tomorrow at noon. Okay to restart heparin and allow patient to eat today. N.p.o. after midnight and would stop heparin infusion at 04 100 tomorrow morning. 2. DVT: Okay to restart heparin today. Hypercoagulable work-up per primary service. 3. Plan was discussed with the patient at bedside and questions were answered to the best my ability. We will continue to follow with you. Feel free to contact us with additional questions or concerns Affected thrombotic vein of extremity: unspecified vein of extremity Chronicity: acute DVT location: lower extremity Laterality: bilateral Qualified Code(s): I82.403 - Acute embolism and thrombosis of unspecified deep veins of lower extremity, bilateral Admission and Anticipated Discharge Date Admission Date: April 02, 2021 Subjective Patient seen and examined. Discussed with off going advertising specialist. The patient without complaint this morning. He denies shortness of breath chest pain cough or sputum production. No fevers chills night sweats or other constitutional symptoms. He overall feels about the same. Review of Systems Review of Systems: All systems reviewed & are unremarkable except as noted in HPI & below Physical Exam Constitutional: WD/WN, vitals as above Neck: trachea midline, no thyromegaly Respiratory: normal respiratory effort, lungs clear to auscultation Cardiovascular: RRR, no murmur, no edema Gastrointestinal (Abdomen): normal bowel sounds, soft, nontender, no hepatosplenomegaly Musculoskeletal: Extremities: extremities normal to inspection Skin: no rashes, warm and dry Neurologic: Nonfocal exam Lymphatic: no cervical lymphadenopathy Results & Data Results & Data ([facility]) Vital Signs (Past 12 Hours) Vital Signs Temp Pulse Pulse Resp BP Pulse Ox 04/03/21 08:29 72 04/03/21 07:36 36.8 C 81 16 147/91 H 04/03/21 05:06 74 04/03/21 04:00 36.9 C 87 18 137/87 92 04/02/21 23:00 36.8 C 74 18 146/90 H 94 Laboratory Results 04/03/21 08:14 Diagnostic Findings No new imaging PG Care Time/CCT Total # of Minutes Spent Total Time Spent with Patient: Total time spent is greater than 50% in coordination of care (as documented) at patient's floor/unit and/or counseling patient: Coding Level of Care Code 22942 Subseq Hosp Care Lvl [address] scan, chest R93.89 Ground glass opacity present on imaging of lung R91.8 SOB (shortness of breath) R06.02 DVT (deep venous thrombosis) I82.403 Affected thrombotic vein of extremity: unspecified vein of extremity Chronicity: acute DVT location: lower extremity Laterality: bilateral Time Spent (min) 40
[2021-04-03 08:50] LABS: INR 1.3 (0.9-1.1); Partial Thromboplastin Ratio 1.2; Partial Thromboplastin Time 31.3 Seconds (21.0-31.0); Prothrombin Time 12.8 Seconds (9.0-12.0)
[2021-04-03 09:04] LABS: BUN Creatinine Ratio 16.5 (10-20); Calcium 8.6 mg/dl (8.5-10.1); Creatinine Clr Calc Pharmacy 128.2 ml/min; Est GFR (African American) 124.2 ml/min; Est GFR (Non-African American) 107.1 ml/min; Potassium 3.7 mmol/L (3.5-5.1)
--- NOTE | 2021-04-03 16:38 | Hospitalist Progress Note ---
Date of Service April 03, 2021 Assessment & Plan (1) SOB (shortness of breath): Abnormal Chest CT Suspected pulmonary edema Mediastinal lymphadenopathy Cannot rule out neoplastic process DD: Sarcoidosis, granulomatous disease, occupational lung disease H/O COVID-19 infection -CTA:No definite pulmonary embolus is seen however opacification within main pulmonary artery is insufficient for adequate evaluation for pulmonary embolus. Interval worsening of diffuse septal thickening, peribronchial vascular edema and patchy areas of groundglass attenuation which likely represent pulmonary edema. No definite compression of pulmonary veins by enlarged mediastinal lymph nodes. Lymphangiectatic carcinomatosis is less likely due to nonnodular appearance of septal thickening. Please correlate above-mentioned findings was prior history of neoplastic process. Short-term follow-up is per clinical protocol. Minimal pericardial effusion. -Plan for bronchoscopy tomorrow Appreciate Pulmonology Input Saturating well on room air Acute Left LE DVT H/O Right LE DVT on Coumadin (December 2020) -Venous Doppler: Thrombosis is seen within proximal to midportion of the one of 2 posterior tibialis veins and within distal aspect of the both posterior tibialis veins. Thrombus is also seen within left peroneal veins. The above mentioned findings are new since prior study. Nonocclusive deep venous thrombosis is seen within mid-distal right popliteal vein as well as in 1 of 2 posterior tibialis veins. Above-mentioned findings were also seen during prior. -? Coumadin failure -INR therapeutic on presentation -Coumadin held for procedure -Continue IV Heparin DVT Px: IV Heparin Code Status Full code Admission and Anticipated Discharge Date Admission Date: April 02, 2021 Subjective Patient is seen and examined at bedside Persistent cough with minimal expectoration States having left calf pain No new complaints Plan for bronchoscopy tomorrow Denies chest pain, shortness of breath, dizziness, nausea, abdominal pain Review of Systems Review of Systems: As per HPI, all 10 systems reviewed, all other ROS negative Physical Exam Physical Exam: Physical Exam: Vitals signs as noted above General Appearance:Moderately built and nourished, no apparent distress Head: normocephalic, Atraumatic Eyes: normal inspection, EOMI Neck: supple, Trachea midline Respiratory/Chest: Normal breath sounds, Basal Crackles Cardiovascular: S1, S2, No murmur Abdomen/GI:Soft, Non tender, Bowel sounds present Extremities/Musculoskeletal:normal inspection, 1+ R>L LE edema Neurologic/Psych:AAOX3, grossly no focal neurological deficits Skin: normal color, warm Results & Data Results & Data ([facility]) Vital Signs (Past 12 Hours) Vital Signs Temp Pulse Pulse Resp BP Pulse Ox 04/03/21 15:51 36.5 C 82 16 131/77 94 04/03/21 15:25 75 04/03/21 12:16 37.0 C 81 18 134/88 92 04/03/21 08:29 72 04/03/21 07:36 36.8 C 81 16 147/91 H 04/03/21 05:06 74 Laboratory Results Short CBC 04/03/21 Range/Units 08:14 WBC 9.33 (4.8-10.8) K/uL Hgb 14.9 (14.0-18.0) g/dL Hct 43.6 (42-52) % Plt Count 228 (130-400) K/uL BMP 04/03/21 08:14 Sodium 141 Potassium 3.7 Chloride 108 H Carbon Dioxide 26 BUN 12 Creatinine 0.71 Glucose 108 H Calcium 8.6
[2021-04-03 17:12] LABS: Partial Thromboplastin Ratio 1.4; Partial Thromboplastin Time 36.2 Seconds (21.0-31.0)
[2021-04-03] MEDS ORDERED: HEPARIN SOD (PORCINE) 1000 UNIT/ML IV ONE (17:18)
[2021-04-03] MEDS: HEPARIN SODIUM/DEXTROSE 25,000 UNITS/500 ML BAG IV SCH (19:57)
--- NOTE | 2021-04-03 23:38 | Communication Note ---
Date of Service: April 03, 2021 Notified by RN of hemoptysis and epistaxis. AP Hemoptysis Ongoing IV anticoagulation for recurrent DVT CT chest CBC now Hold IV heparin.
[2021-04-04 00:41] LABS: Basophils # (auto) 0.04 K/uL (0-0.2); Basophils % (auto) 0.4 %; Eosinophils # (auto) 0.42 K/uL (0-0.5); Eosinophils % (auto) 4.6 %; Hematocrit (blood only) 42.5 % (42-52); Hemoglobin 14.7 g/dL (14.0-18.0); Immature Granulocytes # (auto) 0.03 K/uL (0.00-0.02); Immature Granulocytes % (auto) 0.3 %; Lymphocytes # (auto) 1.72 K/uL (1.2-3.4); Lymphocytes % (auto) 18.7 %; Mean Corpuscular Hemoglobin 31.5 pg (25-34); Mean Corpuscular Hgb Conc 34.6 g/dL (32-36); Mean Platelet Volume 10.4 fL (7.4-10.4); Monocytes # (auto) 0.69 K/uL (0.11-0.59); Monocytes % (auto) 7.5 %; Neutrophils # (auto) 6.29 K/uL (1.4-6.5); Neutrophils % (auto) 68.5 %; Platelet Count 242 K/uL (130-400); RDW Coefficient of Variation 13.6 % (11.5-14.5); RDW Standard Deviation 45.1 fL (36.4-46.3); Red Blood Count 4.67 M/uL (4.7-6.1); White Blood Count 9.19 K/uL (4.8-10.8)
[2021-04-04 00:50] LABS: Partial Thromboplastin Ratio 1.3; Partial Thromboplastin Time 33.5 Seconds (21.0-31.0)
--- NOTE | 2021-04-04 07:59 | CT Scan Report ---
CT chest diagnostic wo con CT DOSE: 372.90 mGy.cm CLINICAL HISTORY: 51 years-old Male with hemoptysis. Acute hemoptysis TECHNIQUE: Multiaxial CT images of the chest were performed without contrast. A dose lowering techni que was utilized adhering to the principles of ALARA. COMPARISON: CTA chest 04/02/2021, 01/09/2021. FINDINGS: Unremarkable thyroid. There are several prominent mildly enlarged partially calcified media stinal and hilar lymph nodes, unchanged. Mild cardiomegaly with small pericardial effusion. Trace left pleural effusion. No pneumothorax. Left greater than right pronounced intralobular septal thickening. Thickening of the bronchovascular bundles redemonstrated. Pronounced bronchial wall thick ening of the left greater than right lung bases with associated areas of mucous plugging. A perilymph atic distribution of pulmonary micronodules are redemonstrated, left greater than right. A 4.2 cm are a of consolidation is present within the basal left lower lobe on image 220 series 4 which is similar in size dating back to 01/09/2021. Patchy groundglass and nodular consolidative opacities are again n oted within the upper lobes, progressively worsened from 01/09/2021. There is no significant change fr om the study obtained 2 days prior. No acute process of the imaged upper abdomen. Unremarkable soft tissues. No acute fracture. IMPRESSION: 1. Stable exam from the study obtained 04/02/2021. 2. Left greater than right intralobular septal thickening with perilymphatic distribution of micronod ules. This pattern of disease has progressively worsened from 01/09/2021. Lymphangitic carcinomatosis versus a nonspecific infectious or inflammatory pneumonitis are differential considerations. 3. Masslike area of consolidation within the basal left lower lobe measuring 4.2 cm is unchanged. 4. Patchy upper lung zone predominant groundglass and irregular nodular consolidative opacities with bronchial wall thickening again noted. 5. Unchanged mediastinal and hilar adenopathy. 6. Cardiomegaly with small pericardial effusion. ACT 112: Negative or not required by law. Electronically signed by: Hermilo Everett M.D. 04/04/2021 7:57 AM
[2021-04-04 08:03] LABS: Hematocrit (blood only) 43.7 % (42-52); Hemoglobin 14.9 g/dL (14.0-18.0); Mean Corpuscular Hemoglobin 31.4 pg (25-34); Mean Corpuscular Hgb Conc 34.1 g/dL (32-36); Mean Corpuscular Volume 92.2 fL (80-100); Mean Platelet Volume 10.3 fL (7.4-10.4); Platelet Count 249 K/uL (130-400); RDW Coefficient of Variation 13.6 % (11.5-14.5); RDW Standard Deviation 46.2 fL (36.4-46.3); Red Blood Count 4.74 M/uL (4.7-6.1); White Blood Count 9.54 K/uL (4.8-10.8)
[2021-04-04 08:13] LABS: INR 1.1 (0.9-1.1); Prothrombin Time 10.8 Seconds (9.0-12.0)
[2021-04-04 08:30] LABS: BUN Creatinine Ratio 24.2 (10-20); Calcium 8.7 mg/dl (8.5-10.1); Creatinine Clr Calc Pharmacy 118.2 ml/min; Est GFR (African American) 120.1 ml/min; Est GFR (Non-African American) 103.6 ml/min; Potassium 3.9 mmol/L (3.5-5.1)
[2021-04-04] MEDS ORDERED: fentaNYL citrate 100 MCG/2 ML VIAL ONE ×2 (11:08→12:14)
[2021-04-04] MEDS ORDERED: MIDAZOLAM HCL 5 MG/ML 1 ML VIAL ONE ×2 (11:08→12:23)
--- NOTE | 2021-04-04 11:54 | Pre Anesthesia Assessment ---
Date of Service April 04, 2021 Pre Sedation Assessment Vital Signs Temp Pulse Pulse Pulse Resp BP Pulse Ox 04/04/21 11:15 81 18 135/87 94 04/04/21 07:29 36.6 C 72 18 152/66 H 93 04/04/21 07:23 65 04/04/21 03:33 37.1 C 83 83 20 121/76 87 L 04/04/21 03:06 87 04/03/21 23:00 37.1 C 79 18 128/78 92 04/03/21 19:00 37.0 C 70 18 122/78 92 04/03/21 15:51 36.5 C 82 16 131/77 94 04/03/21 15:25 75 04/03/21 12:16 37.0 C 81 18 134/88 92 Pre-Sedation Airway Assessment Smoking Status: Never smoker Hx Sleep Apnea: No Short, Thick Neck: No Thyromental Distance: < 3.5 Finger Breadths Oral Cavity: + WNL Mallampati Class: II ASA: ASA2 NPO Status Date of Last Intake of Fluids: 04/04/21 Time of Last Intake of Fluids: 00:00 Last Oral Intake of Fluids Comment: atleast since midnight Date of Last Intake of Solid Food: 04/04/21 Time of Last Intake of Solid Foods: 00:00 Last Intake of Solids Comment: atleast since midnight Notes The planned sedation has been discussed with the patient. Informed Consent was obtained. I have identified the patient, determined the appropriateness of sedation and have assessed the patient immediately prior to the procedure. All medicine(s) and interventions are by my order.
--- NOTE | 2021-04-04 11:55 | Pulmonology Progress Note ---
Date of Service April 04, 2021 Assessment & Plan (1) Ground glass opacity present on imaging of lung: (2) SOB (shortness of breath): (3) DVT (deep venous thrombosis): Impression: 51-year-old male with diagnosis of Covid back in September and right lower extremity DVT 3 months ago. He has had persistent cough and an abnormal CT scan despite a course of antibiotics in the outpatient setting. Updated CT scan demonstrated patchy areas of consolidation with adenopathy and septal thickening. Adenopathy appears stable compared to prior CT scan from December 2020. Recommendations: 1. Differential diagnosis would include inflammatory lung disease including sarcoid, bronchocentric granulomatosis, and occupational lung disease. Cannot exclude malignancy. Patient to undergo bronchoscopy with transbronchial biopsies, BAL, and endobronchial ultrasound of mediastinal lymph nodes. We will check serological evaluation if not previously performed. May consider steroids after bronchoscopy. 2. DVT: Per primary service 3. Hemoptysis: We will see what bronchoscopy shows today. We will continue to follow with you. Feel free to contact us with additional questions or concerns Affected thrombotic vein of extremity: unspecified vein of extremity Chronicity: acute DVT location: lower extremity Laterality: bilateral Qualified Code(s): I82.403 - Acute embolism and thrombosis of unspecified deep veins of lower extremity, bilateral Admission and Anticipated Discharge Date Admission Date: April 02, 2021 Subjective Patient seen and examined in the bronchoscopy suite. He reports no acute events overnight. He remains on room air. No chest pain palpitations or significant lower extremity edema. He is n.p.o. and his heparin has been held for bronchoscopy today. Review of Systems Review of Systems: All systems reviewed & are unremarkable except as noted in HPI & below Physical Exam Constitutional: WD/WN, vitals as above ENMT: Mallampati Class: II Neck: trachea midline, no thyromegaly Respiratory: normal respiratory effort, lungs clear to auscultation Cardiovascular: RRR, no murmur, no edema Gastrointestinal (Abdomen): normal bowel sounds, soft, nontender, no hep atosplenomegaly Musculoskeletal: Extremities: extremities normal to inspection Skin: no rashes, warm and dry Lymphatic: no cervical lymphadenopathy Results & Data Results & Data ([facility]) Vital Signs (Past 12 Hours) Vital Signs Temp Pulse Pulse Pulse Resp BP Pulse Ox 04/04/21 11:15 81 18 135/87 94 04/04/21 07:29 36.6 C 72 18 152/66 H 93 04/04/21 07:23 65 04/04/21 03:33 37.1 C 83 83 20 121/76 87 L 04/04/21 03:06 87 Laboratory Results 04/04/21 07:14 04/04/21 07:[address] angiogram performed last night due to hemoptysis showed no definitive PE. Parenchymal abnormalities appeared unchanged. PG Care Time/CCT Total # of Minutes Spent Total Time Spent with Patient: Total time spent is greater than 50% in coordination of care (as documented) at patient's floor/unit and/or counseling patient: Coding Level of Care Code 55977 Subseq Hosp Care Lvl 2 Diagnoses Ground glass opacity present on imaging of lung R91.8 SOB (shortness of breath) R06.02 DVT (deep venous thrombosis) I82.403 Affected thrombotic vein of extremity: unspecified vein of extremity Chronicity: acute DVT location: lower extremity Laterality: bilateral
--- NOTE | 2021-04-04 12:48 | Post Anesthesia Assessment ---
Date of Service April 04, 2021 Post Sedation Assessment Vital Signs Temp Pulse Pulse Pulse Resp BP Pulse Ox 04/04/21 12:40 86 16 118/62 93 04/04/21 12:35 86 16 111/72 93 04/04/21 12:30 88 16 107/66 93 04/04/21 12:25 86 14 119/76 94 04/04/21 12:20 84 14 124/75 94 04/04/21 12:19 87 14 128/88 89 L 04/04/21 12:15 96 H 16 128/88 95 04/04/21 12:10 91 H 16 117/82 97 04/04/21 12:05 81 16 114/74 93 04/04/21 12:00 83 18 128/87 95 04/04/21 11:55 83 18 126/84 95 04/04/21 11:50 81 18 158/90 H 95 04/04/21 11:15 81 18 135/87 94 04/04/21 07:29 36.6 C 72 18 152/66 H 93 04/04/21 07:23 65 04/04/21 03:33 37.1 C 83 83 20 121/76 87 L 04/04/21 03:06 87 04/03/21 23:00 37.1 C 79 18 128/78 92 04/03/21 19:00 37.0 C 70 18 122/78 92 04/03/21 15:51 36.5 C 82 16 131/77 94 04/03/21 15:25 75 Discharge Sedation Level of Care: Fast Track Phase II Post Sedation Plan On clinical assessment, the patient appears to have tolerated the sedation without complications. Patient is recovering as anticipated. Patient will continue to be monitored by nursing and may be discharged when sedation discharge criteria are met per below protocol. Upon Completions of procedure up to 15 minutes continue every 5 minute vital signs and the P.A.R. score; then discharge to a Phase I or Fast Track to Phase II per the following guidelines: * Discharge Patient to appropriate Phase II area if PAR is 8 or greater or return to pre- procedure baseline. The post - procedure orders will be as directed. * If PAR score is less than 8 or not return to pre-procedure baseline then patient will follow Phase I monitoring till PAR is reached for Phase II. The Phase I may be done in procedure room or may call to secure a Phase I area. * If naloxone or flumazenil are used for reversal, hold in Phase I for continued monitoring from when last reversal dose was given for a minimum of 60 minutes or longer pending the nurse and/or physician discretion of patient condition before discharge to Phase II. Please call the Sedation Physician to re-evaluate and complete post-note for discharge to Phase II area. Do NOT discharge from procedure sedation or Phase 1 until post- sedation evaluation note is complete by procedure /sedation MD Sedation Discharge Instructions to be given to the patient at discharge to home.
--- NOTE | 2021-04-04 12:59 | Procedure Note ---
Procedure Note Date of Service April 04, 2021 Procedure: Fiberoptic bronchoscopy Endobronchial ultrasound evaluation during bronchoscopy Endobronchial ultrasound with transbronchial needle aspiration of lymph nodes, 2 station Bronchoalveolar lavage Transbronchial biopsies, single lobe without fluoroscopy Conscious sedation Provider: Jackson Chin MD Consent: Signed by patient and timeout verified prior to procedure. Sedation start: 1154 Sedation end: 1255 Conscious sedation: 250 mcg fentanyl, 10 mg Versed, and topical lidocaine per protocol Procedure: Patient was brought to the bronchoscopy suite. Consent was verified. Appropriate radiographic studies had been reviewed prior to the procedure. Standard monitoring was applied. Oxygen was administered. After topical anesthesia of the airways per respiratory therapy protocol, the fiberoptic scope was advanced through the bite block via the oropharynx. Oropharynx was unremarkable. Vocal cords were visualized and were normal in function and appearance. Topical anesthesia of the cords was achieved with instillation of lidocaine through the scope. Scope was then passed through the vocal cords. The trachea was midline. Main nini was sharp. Anesthesia of the lower airways was achieved with instillation of lidocaine through the scope. A sequential and systematic examination of the lower airways was conducted. The right-sided airways were widely patent with normal anatomic configuration and the mucosa appeared normal. Left-sided airways were widely patent with normal anatomic configuration and the mucosa appeared normal. Once the inspection bronchoscopy was completed, the scope was wedged into the apical posterior segment of the left upper lobe. A BAL was performed with instillation of 2 aliquots of 60 mL sterile saline. Return was adequate. It was slightly foamy and cloudy but there was no evidence of bleeding. After the BAL was completed, the scope was advanced into the left lower lobe, anterior segment. A total of 5 transbronchial biopsies were taken without the use of fluoroscopy. Minimal bleeding was encountered with control blood instilled saline. After the BAL and transbronchial biopsies were completed, the diagnostic scope was removed from the airway. The endobronchial ultrasound was then advanced through the bite-block and through the vocal cords. The scope was directed to the level 4L station where adenopathy was identified on the CT scan. A lymph node was identified under ultrasound guidance and using a 21-gauge needle the lymph node was aspirated using ultrasound guidance. A total of 5 passes was taken of this lymph node with rapid onsite cytologic evaluation confirming cellularity. The scope was then used to examine the 4R, 7, 2R, 2L, and 10 L stations. No significant adenopathy was identified in the stations. In the 11 L station, small lymph node measuring approximately 8 mm was identified. This was also biopsied under ultrasound guidance using a 21-gauge needle with rapid onsite cytology confirming adequacy of specimen. The scope was then withdrawn to the level of the main nini. Hemostasis was confirmed. The scope was withdrawn The patient tolerated the procedure well without obvious complication. Patient was returned to the recovery room. Impression: 1. Normal inspection bronchoscopy. 2. Successful BAL left upper lobe 3. Successful transbronchial biopsies left lower lobe 4. Pathologic adenopathy identified in the 4L and 11 L stations successfully biopsied with 21-gauge needle. Await final pathology and cytologic results. Coding CPT Codes Pulmonary/Thoracic - Pulmonary and Thoracic: 48043 Dx bronchoscopy/BAL ([id number]) Pulmonary/Thoracic - Pulmonary and Thoracic: 83794 Bronchoscopy w/ transbronchial lung bx ([id number]) Pulmonary/Thoracic - Pulmonary and Thoracic: 26322 Bronchoscopy, w/EBUS add on ([id number]) Pulmonary/Thoracic - Pulmonary and Thoracic: 86207 Bronchoscopy, w/EBUS 1 or 2 mediastinal ([id number]) Sedation/Anesthesia - Sedation/Anesthesia: 21564 Mod Sedation by the same physician;Init15 Min Child Age 5 & Up ([id number]) Sedation/Anesthesia - Sedation/Anesthesia: 45364 Mod Sedation by the same physician; Ea [id number] Minutes ([id number]) [facility] Procedure Codes (Charges) Pulmonary/Thoracic Procedure 1: Pulmonary and Thoracic: 86037 Dx bronchoscopy/BAL Procedure 2: Pulmonary and Thoracic: 41257 Bronchoscopy w/ transbronchial lung bx Procedure 3: Pulmonary and Thoracic: 60696 Bronchoscopy, w/EBUS add on Procedure 4: Pulmonary and Thoracic: 08036 Bronchoscopy, w/EBUS 1 or 2 mediastinal Sedation/Anesthesia Procedure 5: Sedation/Anesthesia: 22990 Mod Sedation by the same physician;Init15 Min Child Age 5 & Up Total Sedation Time (minutes): 60 Procedure 6: Sedation/Anesthesia: 13905 Mod Sedation by the same physician; Ea [id number] Minutes Total Sedation Time (minutes): 60
[2021-04-04] MEDS ORDERED: LIDOCAINE 4% INH SOLN 4 ML BTL ONE (13:05)
[2021-04-04] MEDS ORDERED: LIDOCAINE 2% LOCAL 50 ML VIAL ONE (13:06)
--- NOTE | 2021-04-04 13:08 | XRay Report ---
XR chest 1V portable HISTORY: s/p EBUS, Bronchoscopy COMPARISON: Chest 01/09/2021. Chest CT 04/04/2021. FINDINGS: No pneumothorax. No pleural effusions. The heart remains borderline enlarged. Diffuse retic ulonodular interstitial thickening with scattered patchy airspace opacities are again noted. This sim ilar to the prior chest CT. IMPRESSION: No change in the diffuse reticulonodular interstitial thickening and scattered airspace opacities. No pneumothorax. ACT 112: Negative or not required by law. Electronically signed by: Gonsalo Burger M.D. 04/04/2021 1:06 PM
[2021-04-04 14:11] LABS: Eosinophil Body Fluid Man 5 %; Fluid Mono/Macrophage 44 %; Neutrophil Body Fluid Man 1 %
[2021-04-04 14:12] LABS: Lymphocyte Body Fluid Man 50 %
--- NOTE | 2021-04-04 17:11 | Hospitalist Progress Note ---
Date of Service April 04, 2021 Assessment & Plan (1) SOB (shortness of breath): Abnormal Chest CT Suspected pulmonary edema Mediastinal lymphadenopathy Cannot rule out neoplastic process DD: Sarcoidosis, granulomatous disease, occupational lung disease H/O COVID-19 infection -CTA:No definite pulmonary embolus is seen however opacification within main pulmonary artery is insufficient for adequate evaluation for pulmonary embolus. Interval worsening of diffuse septal thickening, peribronchial vascular edema and patchy areas of groundglass attenuation which likely represent pulmonary edema. No definite compression of pulmonary veins by enlarged mediastinal lymph nodes. Lymphangiectatic carcinomatosis is less likely due to nonnodular appearance of septal thickening. Please correlate above-mentioned findings was prior history of neoplastic process. Short-term follow-up is per clinical protocol. Minimal pericardial effusion. -Had Bronchoscopy, BAL, transbronchial biopsies of left upper lobe, lymph node biopsy on 04/04/21 -Appreciate Pulmonology Input -Pathology pending Needs follow-up with pulmonology upon discharge Acute Left LE DVT H/O Right LE DVT on Coumadin (December 2020) -Venous Doppler: Thrombosis is seen within proximal to midportion of the one of 2 posterior tibialis veins and within distal aspect of the both posterior tibialis veins. Thrombus is also seen within left peroneal veins. The above mentioned findings are new since prior study. Nonocclusive deep venous thrombosis is seen within mid-distal right popliteal vein as well as in 1 of 2 posterior tibialis veins. Above-mentioned findings were also seen during prior. -INR therapeutic on presentation -Hold Coumadin for now -Continue IV Heparin -Patient interested in DOACs Hypoxia Continue supplemental oxygen as needed May need 2 step prior to discharge DVT Px: IV Heparin Code Status Full code Admission and Anticipated Discharge Date Admission Date: April 02, 2021 Subjective Patient is seen and examined at bedside Patient had minimal epistaxis overnight Had bronchoscopy earlier today Leg pain, swelling better but persistent No other complaints Denies chest pain, shortness of breath, dizziness, nausea, abdominal pain Updated patient's family at bedside Discussed with pulmonology Review of Systems Review of Systems: All systems reviewed & are unremarkable except as noted in HPI & below Physical Exam Physical Exam: Physical Exam: Vitals signs as noted above General Appearance:Moderately built and nourished, no apparent distress Head: normocephalic, Atraumatic Eyes: normal inspection, EOMI Neck: supple, Trachea midline Respiratory/Chest: Normal breath sounds, CTA Cardiovascular: S1, S2, No murmur Abdomen/GI:Soft, Non tender, Bowel sounds present Extremities/Musculoskeletal:normal inspection, 1+ R>L LE edema Neurologic/Psych:AAOX3, grossly no focal neurological deficits Skin: normal color, warm Results & Data Results & Data ([facility]) Vital Signs (Past 12 Hours) Vital Signs Temp Pulse Pulse Pulse Resp BP Pulse Ox 04/04/21 14:37 36.7 C 89 22 114/77 95 04/04/21 13:39 36.9 C 90 90 20 116/81 93 04/04/21 13:10 87 16 124/75 97 04/04/21 13:05 92 H 16 120/79 93 04/04/21 13:00 92 H 16 106/75 93 04/04/21 12:55 88 16 125/85 94 04/04/21 12:50 92 H 16 133/81 94 04/04/21 12:45 91 H 16 163/85 H 94 04/04/21 12:40 86 16 118/62 93 04/04/21 12:35 86 16 111/72 93 04/04/21 12:30 88 16 107/66 93 04/04/21 12:25 86 14 119/76 94 04/04/21 12:20 84 14 124/75 94 04/04/21 12:19 87 14 128/88 89 L 04/04/21 12:15 96 H 16 128/88 95 04/04/21 12:10 91 H 16 117/82 97 04/04/21 12:05 81 16 114/74 93 04/04/21 12:00 83 18 128/87 95 04/04/21 11:55 83 18 126/84 95 04/04/21 11:50 81 18 158/90 H 95 04/04/21 11:15 81 18 135/87 94 04/04/21 07:29 36.6 C 72 18 152/66 H 93 04/04/21 07:23 65 Laboratory Results Short CBC 04/04/21 04/04/21 Range/Units 00:25 07:14 WBC 9.19 9.54 (4.8-10.8) K/uL Hgb 14.7 14.9 (14.0-18.0) g/dL Hct 42.5 43.7 (42-52) % Plt Count 242 249 (130-400) K/uL BMP 04/04/21 07:14 Sodium 139 Potassium 3.9 Chloride 108 H Carbon Dioxide 25 BUN 19 H D Creatinine 0.77 Glucose 104 H Calcium 8.7
[2021-04-04 22:43] LABS: Partial Thromboplastin Ratio 1.3; Partial Thromboplastin Time 33.4 Seconds (21.0-31.0)
[2021-04-04] MEDS ORDERED: HEPARIN SOD (PORCINE) 1000 UNIT/ML IV STA (23:05)
[2021-04-05] MEDS: HEPARIN SODIUM/DEXTROSE 25,000 UNITS/500 ML BAG IV SCH (02:17)
[2021-04-05 05:56] LABS: Hematocrit (blood only) 41.3 % (42-52); Hemoglobin 14.2 g/dL (14.0-18.0); Mean Corpuscular Hemoglobin 31.2 pg (25-34); Mean Corpuscular Hgb Conc 34.4 g/dL (32-36); Mean Corpuscular Volume 90.8 fL (80-100); Platelet Count 226 K/uL (130-400); RDW Coefficient of Variation 13.6 % (11.5-14.5); Red Blood Count 4.55 M/uL (4.7-6.1); White Blood Count 10.56 K/uL (4.8-10.8)
[2021-04-05 06:14] LABS: BUN Creatinine Ratio 18.6 (10-20); Calcium 8.4 mg/dl (8.5-10.1); Creatinine Clr Calc Pharmacy 131.9 ml/min; Est GFR (African American) 125.6 ml/min; Est GFR (Non-African American) 108.4 ml/min; Magnesium 2.5 mg/dl (1.8-2.4); Potassium 3.7 mmol/L (3.5-5.1)
[2021-04-05 06:22] LABS: Partial Thromboplastin Ratio 1.8; Prothrombin Time 10.3 Seconds (9.0-12.0)
[2021-04-05 06:23] LABS: Partial Thromboplastin Time 46.1 Seconds (21.0-31.0)
--- NOTE | 2021-04-05 10:27 | Pulmonology Progress Note ---
Date of Service April 05, 2021 Assessment & Plan (1) Ground glass opacity present on imaging of lung: (2) SOB (shortness of breath): (3) DVT (deep venous thrombosis): Impression: 51-year-old male with diagnosis of Covid back in September and right lower extremity DVT 3 months ago. Transbronchial biopsy, BAL, and EBUS with TB NA performed 04/04/2021 with findings unfortunately demonstrating what appears to be adenocarcinoma. Special stains are currently pending. Recommendations: 1. Advanced non-small cell cancer, likely lung primary. Preliminary results were relayed to the patient and his . I discussed with pathology and reflex molecular gene rearrangements are pending in addition to immunohistochemical studies to better differentiate the malignancy. Patient needs follow-up with medical oncology and he and his request that this be done through [facility] [place]. They would also like that her pulmonary follow-up to be done in [place]. Given the patient's age, Diffuse nature of the disease, and non- smoking status, it is highly likely that the patient may have an actionable genetic mutation. 2. DVT: Given his underlying malignancy would recommend treatment with either low molecular weight heparin or DOAC.Long-term management can be directed by the patient's medical oncologist 3. Hemoptysis: Resolved Total of 45 minutes was spent in management of this patient including discussion with pathology and extensive discussions with the patient and his . Pulmonary will sign off at this point time. Feel free to contact us if we can be of additional assistance Affected thrombotic vein of extremity: unspecified vein of extremity Chronicity: acute DVT location: lower extremity Laterality: [facility] Qualified Code(s): I82.403 - Acute embolism and thrombosis of unspecified deep veins of lower extremity, bilateral Admission and Anticipated Discharge Date Admission Date: April 02, 2021 Subjective Patient seen and examined. He is status post bronchoscopy from yesterday. He is doing well clinically. He reported some slight blood-tinged phlegm yesterday but this is resolved. No fevers chills or night sweats. No chest pain or palpitations. He is tolerating a diet. He is anxious to go home. Review of Systems Review of Systems: All systems reviewed & are unremarkable except as noted in HPI & below Physical Exam Constitutional: WD/WN, vitals as above Neck: trachea midline, no thyromegaly Respiratory: normal respiratory effort Cardiovascular: RRR, no murmur, no edema Gastrointestinal (Abdomen): normal bowel sounds, soft, nontender, no hepatosplenomegaly Musculoskeletal: Extremities: extremities normal to inspection Skin: no rashes, warm and dry Lymphatic: no cervical lymphadenopathy Results & Data Results & Data ([facility]) Vital Signs (Past 12 Hours) Vital Signs Temp Pulse Pulse Resp BP Pulse Ox 04/05/21 07:18 36.7 C 76 18 123/78 94 04/05/21 07:13 67 04/05/21 04:00 36.5 C 82 18 121/77 90 04/04/21 23:00 37.0 C 72 18 130/78 92 Laboratory Results 04/05/21 05:39 04/05/21 05:39 Pathology reviewed from the bronchoscopy with the pathologist. There are malignant cells identified in the BAL, transbronchial needle aspiration of the lymph node, and on the transbronchial lung biopsies. These appear consistent with an adeno at first glance but special stains and molecular gene rearrangement studies are currently pending. Diagnostic Findings Post bronchoscopy x-ray was reviewed and demonstrated no pneumothorax with persistence of the interstitial markings bilaterally PG Care Time/CCT Total # of Minutes Spent Total Time Spent with Patient: Total time spent is greater than 50% in coordination of care (as documented) at patient's floor/unit and/or counseling patient: Coding Level of Care Code 26074 Subseq Hosp Care Lvl 3 Diagnoses Ground glass opacity present on imaging of lung R91.8 SOB (shortness of breath) R06.02 DVT (deep venous thrombosis) I82.403 Affected thrombotic vein of extremity: unspecified vein of extremity Chronicity: acute DVT location: lower extremity Laterality: bilateral Time Spent (min) 45
[2021-04-05] MEDS ORDERED: ENOXAPARIN 1.5 MG/KG SQ SCH (11:30)
[2021-04-05] MEDS ORDERED: LOVENOX TEACHING KIT ONE (11:40)
[2021-04-05] MEDS ORDERED: ENOXAPARIN 150 MG/ML SYR SQ SCH (12:00)
--- NOTE | 2021-04-05 12:44 | Hospitalist Progress Note ---
Date of Service April 05, 2021 Assessment & Plan (1) SOB (shortness of breath): Abnormal Chest CT: Suspected adenocarcinoma of the lung Suspected pulmonary edema Mediastinal lymphadenopathy H/O COVID-19 infection -CTA:No definite pulmonary embolus is seen however opacification within main pul monary artery is insufficient for adequate evaluation for pulmonary embolus. Interval worsening of diffuse septal thickening, peribronchial vascular edema and patchy areas of groundglass attenuation which likely represent pulmonary edema. No definite compression of pulmonary veins by enlarged mediastinal lymph nodes. Lymphangiectatic carcinomatosis is less likely due to nonnodular appearance of septal thickening. Please correlate above-mentioned findings was prior history of neoplastic process. Short-term follow-up is per clinical protocol. Minimal pericardial effusion. -Had Bronchoscopy, BAL, transbronchial biopsies of left upper lobe, lymph node biopsy on 04/04/21 -Appreciate Pulmonology Input -Pathology pending 2 step: Did not qualify for oxygen Needs follow-up with pulmonology and Oncology upon discharge Acute Left LE DVT H/O Right LE DVT on Coumadin (December 2020) -Venous Doppler: Thrombosis is seen within proximal to midportion of the one of 2 posterior tibialis veins and within distal aspect of the both posterior tibialis veins. Thrombus is also seen within left peroneal veins. The above mentioned findings are new since prior study. Nonocclusive deep venous thrombosis is seen within mid-distal right popliteal vein as well as in 1 of 2 posterior tibialis veins. Above-mentioned findings were also seen during prior. -INR therapeutic on presentation -Coumadin discontinued -Continue IV Heparin >> will be transition to SQ Lovenox Hypoxia Continue supplemental oxygen as needed Resolved DVT Px: Lovenox SQ Code Status Full code Admission and Anticipated Discharge Date Admission Date: April 02, 2021 Subjective Patient is seen and examined at bedside Minimal blood-tinged sputum this morning Left leg pain resolved Discussed with pulmonology today 2 step: Did not qualify for supplemental oxygen Updated patient's family Denies chest pain, shortness of breath, dizziness, nausea, abdominal pain Review of Systems Review of Systems: All systems reviewed & are unremarkable except as noted in HPI & below Physical Exam Physical Exam: Physical Exam: Vitals signs as noted above General Appearance:Moderately built and nourished, no apparent distress Head: normocephalic, Atraumatic Eyes: normal inspection, EOMI Neck: supple, Trachea midline Respiratory/Chest: Normal breath sounds, CTA Cardiovascular: S1, S2, No murmur Abdomen/GI:Soft, Non tender, Bowel sounds present Extremities/Musculoskeletal:normal inspection, 1+ R>L LE edema Neurologic/Psych:AAOX3, grossly no focal neurological deficits Skin: normal color, warm Results & Data Results & Data ([facility]) Vital Signs (Past 12 Hours) Vital Signs Temp Pulse Pulse Pulse Pulse Pulse Resp 04/05/21 11:27 86 95 H 93 H 04/05/21 07:18 36.7 C 76 18 04/05/21 07:13 67 04/05/21 04:00 36.5 C 82 18 Resp Resp Resp BP Pulse Ox Pulse Ox Pulse Ox 04/05/21 11:27 18 18 16 94 94 04/05/21 07:18 123/78 94 04/05/21 07:13 04/05/21 04:00 121/77 90 Pulse Ox 04/05/21 11:27 93 04/05/21 07:18 04/05/21 07:13 04/05/21 04:00 Laboratory Results Short CBC 04/05/21 Range/Units 05:39 WBC 10.56 (4.8-10.8) K/uL Hgb 14.2 (14.0-18.0) g/dL Hct 41.3 L (42-52) % Plt Count 226 (130-400) K/uL BMP 04/05/21 05:39 Sodium 140 Potassium 3.7 Chloride 108 H Carbon Dioxide 27 BUN 13 Creatinine 0.69 Glucose 111 H Calcium 8.4 L
--- NOTE | 2021-04-05 13:23 | Discharge Summary ---
Date of Service April 05, 2021 Admission HPI Per Admitting Provider History obtained from patient, family, and records. Medical history significant for recent RLE DVT on Coumadin, pulmonary nodules on recent CT imaging. Patient has had chronic cough since Covid 19 infection from September 2020. Denies headache, weight loss, night sweats, abdominal pain. Denies aspiration. No improvement despite multiple outpatient antibiotic and steroid courses. 3 months ago, patient noted right leg swelling after plane travel to [place] for a in the family. Patient seen at the [facility] ER. CT chest showed no pulmonary embolism. Nonspecific mediastinal and hilar lymphadenopathy. Scattered solid right lung pulmonary nodules measuring up to 4 mm in diameter. 13 mm groundglass right upper lobe nodule. Diffuse left lung interlobular edema as well as an area of masslike nodular consolidation within left lower lobe measuring 4 to 6 mm. Pronounced thickening bronchovascular bundles most pronounced within left lower lobe with prominent bronchial wall thickening and soft tissue encasing left lower lobe pulmonary arteries. Diagnostic entities include sarcoidosis, lymphangitic carcinomatosis and certain types of pneumonia. Right LE venous Dopplers showed right popliteal vein and posterior tibial vein DVT and probable thrombus within right peroneal vein. Thrombus varicosities of the right calf. Patient discharged on weight-based Lovenox. Patient eventually bridged to Coumadin by outpatient anticoagulation clinic. Patient tolerated Coumadin well as per . Recent outpatient INR was 2.5 (03/15/21). 2 months ago, patient seen at the office by [facility] field spec for abnormal CT results. As per documentation, lung opacities and adenopathy on CT with broad differential diagnosis. (Resolving COVID-19 pneumonia vs other pneumonias vs advanced lung malignancy) Childhood Development Teacher recommended full PFTs including DLCO, lung volumes, spirometry, 6- minute walk on room air. Repeat CT chest in 3 months before next appointment third week of March,. Levaquin course prescribed. As per specialist documentation, patient offered bronchoscopy with EBUS and transbronchial biopsies but patient would like to defer until repeat imaging in 3 months. 3 weeks ago, patient noted RLE pain with persistent cough symptoms. Outpatient ultrasound requested by PCP negative for DVT. Worsening cough symptoms on follow-up visit at PCPs office 2 weeks ago. Outpatient chest x-ray showed worsening diffuse interstitial and airspace opacification throughout both lungs with small left effusion concerning for pulmonary edema and multifocal pneumonia in the correct setting. Patient and family were on a vacation in [place] when abnormal CXR was communicated by PCPs office. Azithromycin course prescribed with some improvement in cough symptoms. Patient left [place] to go back to [facility] 2 days ago. Patient noted achy swelling this time involving left leg in addition to chronic right leg discomfort/swelling. Patient compliant with home medications. Usual shortness of breath on exertion. Patient denies chest pain. Patient brought to ER by upon arrival back home for evaluation. 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 Admission Exam Per Admitting Provider Physical Exam Physical Exam: GENERAL: Comfortable, pleasant, no respiratory distress SKIN: suntanned, warm HEENT: [place] palpebral conjunctivae, no ptosis, dry buccal mucosa NECK : Supple, no tenderness CHEST : Decreased breath sounds, no tenderness HEART : RRR, no obvious murmurs ABDOMEN: Some distention, nontender EXTREMITIES : LE swelling right greater than the left, bilateral LE tenderness, no other conspicuous deformities noted NEUROLOGIC : Coherent, no facial asymmetry, no other gross focality Principal Diagnosis Suspected adenocarcinoma of the lung Acute lower extremity deep vein thrombosis Hypoxia Discharge Data Allergies Allergy/AdvReac Type Severity Reaction Status Date / Time No Known Allergies Allergy Verified 01/09/21 16:11 Consultations 04/02/21 04:15 ED Decision to Admit Stat 04/02/21 06:48 Consult Pulmonology Routine Procedures Performed Operation Date: 04/04/21 12:00 Actual Procedures p Endobronchial Ultrasound (EBUS)(Bilateral) - Jackson Chin MD Ordered Studies 04/01/21 23:56 US venous doppler LE BI Urgent 04/01/21 23:57 CT angio chest PE protocol Urgent 04/03/21 23:38 CT chest diagnostic wo con Urgent -CTA:No definite pulmonary embolus is seen however opacification within main pulmonary artery is insufficient for adequate evaluation for pulmonary embolus. Interval worsening of diffuse septal thickening, peribronchial vascular edema and patchy areas of groundglass attenuation which likely represent pulmonary edema. No definite compression of pulmonary veins by enlarged mediastinal lymph nodes. Lymphangiectatic carcinomatosis is less likely due to nonnodular appearance of septal thickening. Please correlate above-mentioned findings was prior history of neoplastic process. Short-term follow-up is per clinical protocol. Minimal pericardial effusion. Hospital Course (1) SOB (shortness of breath): Abnormal Chest CT: Suspected adenocarcinoma of the lung Suspected pulmonary edema Mediastinal lymphadenopathy H/O COVID-19 infection -CTA:No definite pulmonary embolus is seen however opacification within main pulmonary artery is insufficient for adequate evaluation for pulmonary embolus. Interval worsening of diffuse septal thickening, peribronchial vascular edema and patchy areas of groundglass attenuation which likely represent pulmonary edema. No definite compression of pulmonary veins by enlarged mediastinal lymph nodes. Lymphangiectatic carcinomatosis is less likely due to nonnodular appearance of septal thickening. Please correlate above-mentioned findings was prior history of neoplastic process. Short-term follow-up is per clinical protocol. Minimal pericardial effusion. -Had Bronchoscopy, BAL, transbronchial biopsies of left upper lobe, lymph node biopsy on 04/04/21 -Appreciate Pulmonology Input -Pathology pending 2 step: Did not qualify for oxygen Needs follow-up with pulmonology and Oncology upon discharge Acute Left LE DVT H/O Right LE DVT on Coumadin (December 2020) -Venous Doppler: Thrombosis is seen within proximal to midportion of the one of 2 posterior tibialis veins and within distal aspect of the both posterior tibia lis veins. Thrombus is also seen within left peroneal veins. The above mentioned findings are new since prior study. Nonocclusive deep venous thrombosis is seen within mid-distal right popliteal vein as well as in 1 of 2 posterior tibialis veins. Above-mentioned findings were also seen during prior. -INR therapeutic on presentation -Coumadin discontinued -Continue IV Heparin >> will be transition to SQ Lovenox Hypoxia Continue supplemental oxygen as needed Resolved DVT Px: Lovenox SQ Code Status Full code Total Time Total Time Spent Total Time Spent (In Minutes): 42 minutes Total Time Includes: Examination of the Patient, Discharge Planning, Medication Reconciliation, Communication With Other Providers and Other Discharge Plan Discharge Items Patient Disposition: Home - Self-Care Reason For Visit: SOB, RECURRENT DVT Discharge Diagnosis: Suspected adenocarcinoma of the lung Acute lower extremity deep vein thrombosis Hypoxia Condition on Discharge: Good Activity: Per Instructions section Exercise/Sports: Wait until after follow-up appointment Non-emergency contact: Primary Care Provider, Oncologist and Childhood Development Teacher Call non-emergency contact if: you have any medication questions, your symptoms worsen, your pain is not controlled, your pain is concerning for you and you have a fever Follow-up/Referrals: Matthew Spivey PA-C [Primary Care Provider] - (Date & Time 04/10/2021 2:20 PM Provider Lien Santos PA-C Department [facility] ) Mehrdad Michel MD [Outside Practitioners] - (Date & Time 04/19/2021 2:00 PM Provider Mehrdad Michel MD Department Pulmonary Medicine, [facility] ) Diet: Regular Addtl Attending Provider Instructions: Follow-up with your primary care physician Matthew Spivey PA-C on 04/10/2021 2:20 PM Follow-up with your field spec Dr. Michel on 04/19/2021 2:00 PM Follow up with your Oncologist in 1 week Your pathology is pending at the time of discharge. Follow-up with your physician for results. Do not take group of medications belonging to NSAIDs group -can cause worsening your risk for bleeding List Of these medications includes but not limited to: Aspirin Diclofenac Ibuprofen, Motrin, Advil Toradol,ketorolac Naproxen, Aleve, Naprosyn You can take Tylenol as needed for pain or fever When buying [id number] pain medications please consult with pharmacy if you are not sure regarding ingredients, as a lot of the pain medications have combination of NSAIDs and Tylenol. Seek immediate medical attention if your symptoms reoccur or worsen Please take all medications as instructed on discharge list below. Please call if you have any questions or problems. You can reach a [facility] hospitalist on duty at [facility] 24 hours a day by calling [phone] Pending Studies at Discharge: Yes Studies:: Pathology Stand-Alone Forms: My [facility], Work/School Release, Smoking Cessation Medications and DC Order Prescriptions: New enoxaparin [Lovenox] 150 mg/mL Syringe 129 mg subcut Q24H 30 Days Qty: 25.8 RF: 1 Discontinued ibuprofen [Advil] 200 mg Tablet 400 mg PO DIRECTED PRN (Reason: Pain) RF: 0 amoxicillin-pot clavulanate [Augmentin] 875-125 mg tablet 1 tab PO BID Qty: 20 RF: 0 Discharge Orders: Discharge Order (Routine); Ordered 06/09/21 Ordered By: Daniel Cervantes Admission Data Admit Date/Time: 04/02/21 05:29 Attending Provider: Daniel Cervantes Admit Provider: Anthony Dawn Primary Care Provider: Matthew Spivey Other Providers: Anthony Dawn ; Brandon Kraus ; Claus Bearden ; Jaylin Enriquez ; Uche Valverde ; Gwen Arora ; Petar Lehman ; Jackson Chin ; Lynda Causey Other Interventions: Discharge Summary Assessment (RN) Last Done: 04/05/21 14:09
[2021-04-08 01:03] LABS: ANCA Screen Negative (Negative); Angiotensin Converting Enzyme 28 U/L (9-67); Anti Nuclear Antibody Screen POSITIVE (NEGATIVE); Myeloperoxidase Ab <1.0 AI (<1.0); Proteinase-3 AB <1.0 AI (<1.0)
--- NOTE | 2021-04-09 14:44 | Coding Query ---
PATHOLOGY To promote full compliance with coding requirements relating to patient care, physician participation is requested in all cases of dot etcher apprentice uncertainty. Please assist us with the question(s) below: Please review the Pathology report and please document any relevant diagnosis(es) below: Diagnosis(es): Lung cancer Thank you Swetha GIVENS
--- NOTE | 2021-04-09 14:47 | Coding Query ---
CODING QUERY To promote full compliance with coding requirements relating to patient care, provider participation is requested in all cases of medical billing coder uncertainty. Please assist us with the question(s) below: Coding Question(s): Suspected Pulmonary Edema is documented through the record and on Discharge Summary. Please specify below, in your clinical opinion, regarding Pulmonary Edema. ( ) Acute Pulmonary Edema was treated and/or monitored during this admission ( ) Chronic or Unspecified Pulmonary Edema was treated and/or monitored during this admission ( x) Pulmonary Edema was not treated or monitored during this admission ( ) Other: Please Specify Physician's Response(s): Thank you Swetha Mccrary Principal Diagnosis: "that condition established after study, to be chiefly responsible for occasioning the admission of the patient to the hospital for care." Co-Existing Principal Diagnosis: "when two or more diagnoses equally meet the criteria for principal diagnosis as determined by the circumstances of admission, diagnostic work up, and/or therapy provided, and the Alphabetic Index, Tabular List, or another coding guideline does not provide sequencing direction, any one of the diagnoses may be sequenced first." "When the physician has documented what appears to be a current diagnosis in the body of the record, but has not included the diagnosis in the final diagnostic statement, the physician should be asked whether the diagnosis should be added." ([facility] 2 QTR90. p3-4) TOSHA
[2021-04-10 10:02] LABS: ANA Pattern Nuclear, Speckled; ANA Titer 1:40 titer
[2021-04-10 10:05] LABS: ANA Pattern 2 Nuclear, Homogeneous; ANA Titer 2 1:40 titer
[2021-04-15 03:37] LABS: Source BRONCH WASH
== END 2021-04-05 14:46 | disposition home or self-care (01) | DRG 181 ==
LOC: ED 22:09 → 2W 04-02 05:29

== ENCOUNTER 2023-05-12 11:32 | Inpatient (IN) ==
[2023-05-12] MEDS ORDERED: ASPIRIN CHEW 324 MG ONE (11:44)
[2023-05-12] MEDS ORDERED: NITROGLYCERIN SL 0.4 MG/TAB TAB ONE (11:45)
[2023-05-12] MEDS ORDERED: SODIUM CHLORIDE 0.9% 1000ML 1,000 ML IV STA (11:46)
[2023-05-12] MEDS ORDERED: NITROGLYCERIN SL 0.4 MG/TAB TAB SL PRN (11:46)
[2023-05-12] MEDS ORDERED: ASPIRIN CHEW 324 MG PO STA (11:46)
[2023-05-12 12:19] LABS: Basophils # (auto) 0.06 K/uL (0-0.2); Eosinophils # (auto) 0.17 K/uL (0-0.50); Eosinophils % (auto) 2.9 %; Hematocrit (blood only) 41.2 % (42.0-52.0); Hemoglobin 14.5 g/dl (14.0-18.0); Immature Granulocytes # (auto) 0.01 K/uL (0.01-0.20); Immature Granulocytes % (auto) 0.2 %; Lymphocytes % (auto) 20.8 %; Mean Corpuscular Hgb Conc 35.2 g/dL (32.0-36.0); Mean Corpuscular Volume 93.6 fL (80.0-100.0); Mean Platelet Volume 10.7 fL (9.4-12.4); Monocytes # (auto) 0.24 K/uL (0.11-0.59); Monocytes % (auto) 4.2 %; Neutrophils % (auto) 70.9 %; Platelet Count 230 K/uL (130-400); RDW Coefficient of Variation 13.2 % (11.5-14.5); RDW Standard Deviation 44.9 fL (36.4-46.3); White Blood Count 5.78 K/ul (4.8-10.8)
--- NOTE | 2023-05-12 12:20 | XRay Report ---
XR chest 1V portable CLINICAL HISTORY: Chest pain, nonspecific TECHNIQUE: Single frontal radiograph of the chest was obtained. Comparison: Comparison is made to chest radiograph 04/04/2021 FINDINGS: No lines and tubes are seen. The cardiomediastinal silhouette is normal. The lungs are clear. No evid ence of pleural effusion or pneumothorax. IMPRESSION: No acute chest disease. ACT 112: Negative or not required by law. Electronically signed by: Michael Gomez M.D. 05/12/2023 12:19 PM
[2023-05-12 12:37] LABS: Anion Gap 6 (3-11); BUN Creatinine Ratio 19.6 (10-20); Blood Urea Nitrogen 19 mg/dl (6-23); Calcium 9.1 mg/dl (8.6-10.3); Carbon Dioxide 27 mmol/L (21-32); Chloride 107 mmol/L (98-107); Est GFR (African American) 101.4 ml/min; Est GFR (Non-African American) 87.5 ml/min; Glucose 109 mg/dl (70-99(Fasting)); Lipase 26 U/L (11-82); Potassium 3.8 mmol/L (3.5-5.1); Sodium 140 mmol/L (136-145)
--- NOTE | 2023-05-12 12:44 | Electrocardiogram Report ---
Test Reason : Blood Pressure : / mmHG Vent. Rate : 057 BPM Atrial Rate : 057 BPM P-R Int : 190 ms QRS Dur : 100 ms QT Int : 410 ms P-R-T Axes : 032 006 026 degrees QTc Int : 399 ms Sinus bradycardia Poor R wave progression, consider anterior ND vs. lead placement vs. LVH Abnormal ECG When compared with ECG of 02-APR-2021 07:58, Minimal criteria for Anterior infarct are now Present Confirmed by Brandon Howell ([id number]) on 05/12/2023 12:43:54 PM Referred By: Confirmed By:Brandon Howell
[2023-05-12 12:49] LABS: Prothrombin Time 11.2 Seconds (9.0-12.0)
[2023-05-12 12:50] LABS: Troponin I High Sensitivity 70.9 pg/ml (0-20)
[2023-05-12] MEDS ORDERED: ACETAMINOPHEN 325 MG TAB PO PRN (13:12)
[2023-05-12] MEDS ORDERED: MAGNESIUM HYDROXIDE SUSP 30 ML UDC PO PRN (13:12)
[2023-05-12] MEDS ORDERED: ONDANSETRON INJ 2 MG/ML 2 ML VIAL IV PRN (13:12)
[2023-05-12] MEDS ORDERED: ALUMINUM/MAGNESIUM SUSP 30 ML UDC PO PRN (13:12)
[2023-05-12] MEDS ORDERED: POLYETHYLENE (MIRALAX) 17 GM PACK PO PRN (13:12)
--- NOTE | 2023-05-12 13:20 | History & Physical Report ---
Date of Service May 12, 2023 Assessment & Plan (1) Chest pain: (2) History of DVT (deep vein thrombosis): (3) Stage IV adenocarcinoma of lung: (4) Dizziness: (5) ACS (acute coronary syndrome): Plan 53 Y/O male currently being treated for stage IV adenocarcinoma of the lung d iagnosed 04/2021 (receives Keytruda, Alitma, and Zometa Q 21 days with his last infusion on 05/09) and H/O DVT/PE (On Xarelto) presents with anterior crushing chest pain relieved by Nitro SL x1. He describes sitting in the anabaptism pew and abruptly started to have crushing chest pain ranging 8/10, SOB at rest, with diaphoresis with no provoking or palliative factors. No radiation into jaw, shoulder blades, or upper extremities. ECHO today: EF 60-65%, moderate concentric LVH, no valvular dz, trace MR/TR. CXR negative for acute cardiopulmonary disease. No known CAD. FMH father AMI at 74 y/o. Initial Troponin 70.9; will trend. EKG reveals sinus bradycardia with non-ST elevation in anterior leads. ACS: Chest pain: EKG SB with changes in anterior leads; V1 CP relieved with Nitro SL x1 CXR negative ASA 324 given in ED; will continue Baby ASA daily Initial Trop 70.9; trending upward 74 EKG PRN and QAM ECHO today: EF 60-65%, moderate concentric LVH, no valvular dz, trace MR/TR Mg+ ordered Lipid panel: TG 293, LDL 123, HDL 44; will obtain fasting lipid panel in AM Does not take lipid-lowering agents; will start Atorvastatin 80 mg; adjust as necessary On Xarelto for Anti-Coagulation; per cards recommendation; will hold for now. 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 Foote Current regimen: Keytruda, Alitma, and Zometa Q 21 days Last infusion on 05/09 Dizziness: Intermittent; likely related to cancer treatment Check Orthostatic BP's Normal BP in ED Disposition: PCP: Dr. Schuler Code Status: Full Code VTE Prophylaxis: Takes Xarelto; hold for now I spent a total of 87 minutes coordinating, documenting, and providing care for this patient excluding time spent in the performance of separately billed services. All of the aforementioned completed while collaborating with the assigned attending physician for a full treatment plan. Please see their addendum for further details. History of Present Illness Chief Complaint: chest pain Primary Care Provider: Matthew Michaeljulianne Mr. Brothers is a 53 year old male that presented to the [facility] today with chest pain that started this morning while attending anabaptism at 1100. He describes sitting in the anabaptism pew and abruptly started to have crushing chest pain ranging 8/10, SOB at rest, with diaphoresis with no provoking or palliative factors. No radiation into jaw, shoulder blades, or upper extremities. Has had intermittent reflux symptoms recently, but has not experienced chest pain like this morning. Being followed by Dr. Foote for stage IV adenocarcinoma of the lung diagnosed 04/[address] currently receiving Keytruda, Alitma, and Zometa Q 21 days with his last infusion on 05/09. Labs otherwise unremarkable. Magnesium pending. Additional past medical history includes right lower extremity DVT diagnosed 12/2020 followed by a PE in 07/2021. Patient takes Xarelto daily. Does not take any statins or beta-blockers. Additionally, patient has intermittent 'tunnel' vision that he attributes to position changes coupled with dizziness. States dizziness and vision changes with quick position changes. Does not take any anti-hypertensives. Does correlate these symptoms with chemotherapy. Pt has chronic lower extremity edema related to cancer treatments. ECHO today: EF 60-65%, moderate concentric LVH, no valvular dz, trace MR/TR. Chest x-ray negative for acute cardiopulmonary disease. Patient without without known CAD, no aspirin use over the last week. Family history discussion revealed father due to an AMI at 74 years old. No leukocytosis. Initial Troponin 70.9; will trend. EKG reveals sinus bradycardia with non-ST elevation in anterior leads. Pt denies tobacco, alcohol, or recreational drug use, including medical marijuana. No recent travel. Otherwise, denies ZAMORANO, abdominal pain or tenderness, N/V/D, recent falls or trauma, urinary or bowel changes, auditory changes. Reports having a good appetite without appetite stimulants, overall reports being tired when he receives cancer treatment. Confirmed patient to be a full code. Patient will be admitted for further evaluation and management. Please see A/P for further details. Allergies Allergy/AdvReac Type Severity Reaction Status Date / Time No Known Allergies Allergy Verified 05/12/23 12:40 Home Medications Medication Instructions Recorded Confirmed Type L.acidophilus,rhamnosus-B.breve-S.thermophilus 1 tab PO QAM 05/12/23 05/12/23 History 3 billion cell chew tab folic acid 1 mg tablet 1 mg PO QAM 05/12/23 05/12/23 History meclizine 25 mg tablet 25 mg PO TID PRN Dizziness 05/12/23 05/12/23 History ondansetron HCl 8 mg tablet 8 mg PO Q6H PRN NAUSEA/VOMITING 05/12/23 05/12/23 History rivaroxaban 20 mg tablet (Xarelto) 20 mg PO HS 05/12/23 05/12/23 History vitamin E 400 unit tablet 400 unit PO QAM 05/12/23 05/12/23 History Past Med/Surg History Medical History Abnormal CT scan, chest ACS (acute coronary syndrome) Chest pain COVID-19 Dizziness Fatigue History of DVT (deep vein thrombosis) NSTEMI (non-ST elevated myocardial infarction) Stage IV adenocarcinoma of lung Superficial thrombophlebitis of right leg Surgical History No pertinent past surgical history Family History Mother Dyslipidemia Father Heart disease Hypertension Social History Smoking Status: Never smoker Do You Dip or Chew Tobacco: No; Hx Alcohol Use: Yes Alcohol type: beer Hx Substance Use: No Preferred Language: Bulgarian Moccasin Sewer Required: No Beliefs That Will Affect Care: None Current Living Situation: Spouse Other Information That Helps Us Care for You: No Feels Safe at Home: Yes Safety Concerns: Feels Safe At This Time Assistive Devices: None Review of Systems Review of Systems: Neuro: (-) Falls, trauma, slurred speech HEENT: (-) ZAMORANO, dizziness, dysphagia, visual or auditory changes CV: (-) CP, palpitations, swelling Resp: (-) SOB GI: (-) appetite changes, N/V/D, bowel changes : (-) urinary changes Skin: (-) rashes Psych: (-) anxiety, depression Physical Exam Physical Exam: Neuro: AAOx4, PERRLA, no aphagia, memory changes, CNII-XII grossly intact HEENT: head normocephalic, moist mucus membranes CV: S1/S2, bradycardia, (-) M/G/R, (-) edema, cap refill < 3 seconds. (+1) BL LE edema Resp: Lungs CTA in all george. On RA GI: Abdomen S/NT/ND, Ax4 bowel sounds, (-) CVA tenderness Musculoskeletal: 5/5 B/L UE strength, 5/5 B/L LE strength. No gait disturbance Skin: (-) rashes , (-) erythema. Psych: euthymic mood Results & Data Results & Data Vital Signs (Past 12 Hours) Vital Signs Temp Pulse Pulse Resp BP BP Pulse Ox 05/12/23 12:40 56 L 23 96 05/12/23 12:30 57 L 17 96 05/12/23 12:30 123/80 05/12/23 12:20 57 L 21 95 05/12/23 12:10 65 18 83 L 05/12/23 12:04 100/71 05/12/23 12:04 56 L 21 96 05/12/23 12:00 63 15 95 05/12/23 11:53 64 17 93 05/12/23 11:46 98 05/12/23 11:32 62 17 124/80 96 05/12/23 11:55 64 05/12/23 11:34 36.8 C 62 20 129/81 97 O2 Del Method 05/12/23 12:40 05/12/23 12:30 05/12/23 12:30 05/12/23 12:20 05/12/23 12:10 05/12/23 12:04 05/12/23 12:04 05/12/23 12:00 05/12/23 11:53 05/12/23 11:46 05/12/23 11:32 Room Air 05/12/23 11:55 05/12/23 11:34 Room Air Laboratory Results Short CBC 05/12/23 Range/Units 11:55 WBC 5.78 (4.8-10.8) K/ul Hgb 14.5 (14.0-18.0) g/dl Hct 41.2 L (42.0-52.0) % Plt Count 230 (130-400) K/uL [facility] 05/12/23 11:55 Sodium 140 Potassium 3.8 Chloride 107 Carbon Dioxide 27 BUN 19 Creatinine 0.97 Glucose 109 H Calcium 9.1 Diagnostic Findings Chest X-Ray 05/12/23 11:46 XR chest 1V portable CLINICAL HISTORY: Chest pain, nonspecific TECHNIQUE: Single frontal radiograph of the chest was obtained. Comparison: Comparison is made to chest radiograph 04/04/2021 FINDINGS: No lines and tubes are seen. The cardiomediastinal silhouette is normal. The lungs are clear. No evidence of pleural effusion or pneumothorax. IMPRESSION: No acute chest disease. ACT 112: Negative or not required by law. Electronically signed by: Michael Gomez M.D. 05/12/2023 12:19 PM Code Status & VTE Plan Code Status Full Code in the event of cardiac or respiratory arrest VTE Prophylaxis Plan VTE Prophylaxis will be ordered: Yes Supervising Physician Co-Signing Physician Notes I have seen and examined the patient and have discussed the case with the provider above. I agree with the assessment and plan as stated. 53 yo M with Stage IV lung cancer since 2020 presents with acute chest pain after sitting down in anabaptism. He reports associated diaphoresis with localized pain in his left anterior chest without radiation. He denies feeling this in the past. Workup includes troponin elevated to 70.974.3. EKG with no evidence of acute ischemia. Resting bradycardia noted. On Keytruda for treatment as noted above which can be associated with myocarditis. He was seen by cardiology who has this in the differential. We are continuing to trend trops and monitoring on telemetry. He is currently chest pain-free. On exam he is hemodynamically stable and afebrile, oxygenating well on room air. There is no chest wall TTP and lungs are clear to auscultation bilaterally. Cardiac exam is unremarkable and he is euvolemic. Labs and imaging reviewed. Agree with plan as noted above including ruling out NSTEMI, cont ASA, providing statin for plaque stabilization and keeping myocarditis in the differential. Appreciate cardiology recommendations. Lipid panel will be repeated when fasting in am. DO Kareem
[2023-05-12 14:37] LABS: Chol HDL Ratio 5.1 (0-5); Cholesterol 226 mg/dl (0-200); HDL Cholesterol 44 mg/dl; LDL Cholesterol Calculated 123 mg/dl; Triglycerides 293 mg/dl (0-150); VLDL Cholesterol 59 mg/dl (0-30)
[2023-05-12] MEDS ORDERED: MECLIZINE HCL 25 MG TAB PO PRN (14:50)
--- NOTE | 2023-05-12 15:56 | Cardiology Consultation ---
Date of Consultation May 12, 2023 Assessment & Plan (1) Chest pain: (2) Elevated troponin: (3) Non-small cell carcinoma of lung: Plan 53-year-old male presents with acute symptoms of chest pain and shortness of breath with associated diaphoresis occurring at rest. Initial EKG without injury or ischemic pattern but troponins elevated. Echocardiogram with preserved LV systolic function Plan: Agree with telemetry exclude arrhythmia. Keytruda associated with acute myocarditis/myocardial inflammation. We will trend troponins as ordered. May need further ischemic work-up depending on results of EKG and laboratory testing. Beta-stanislav contraindicated given resting bradycardia atorvastatin ordered. Will hold Xarelto History of Present Illness Reason for Consultation: Chest pain, elevated troponin Requesting Physician: Dr. 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 Patient presented to the ER this morning having developed substernal chest pain while while sedentary. Symptoms associated with diaphoresis and nausea and shortness of breath. Records reflect relief with 1 sublingual nitroglycerin. No sense of tachypalpitations syncope or near syncope. Has been experiencing symptoms of increasing dizziness and vertigo. MRI of the brain 05/06/2023 without lesion Patient denies prior history of cardiac disease rheumatic fever scarlet fever or heart murmur. Familial history of coronary disease in father and later years No prior history of hypertension diabetes renal or hepatic disease no history of hyperlipidemia Past history of DVT/thrombophlebitis on chronic anticoagulation with Xarelto Initial EKG without acute ischemic changes. Echocardiogram with preserved LV systolic function Allergies Allergy/AdvReac Type Severity Reaction Status Date / Time No Known Allergies Allergy Verified 05/12/23 12:40 Home Medications Medication Instructions Recorded Confirmed Type L.acidophilus,rhamnosus-B.breve-S.thermophilus 1 tab PO QAM 05/12/23 05/12/23 History 3 billion cell chew tab folic acid 1 mg tablet 1 mg PO QAM 05/12/23 05/12/23 History meclizine 25 mg tablet 25 mg PO TID PRN Dizziness 05/12/23 05/12/23 History ondansetron HCl 8 mg tablet 8 mg PO Q6H PRN NAUSEA/VOMITING 05/12/23 05/12/23 History rivaroxaban 20 mg tablet (Xarelto) 20 mg PO HS 05/12/23 05/12/23 History vitamin E 400 unit tablet 400 unit PO QAM 05/12/23 05/12/23 History Patient History Medical History Abnormal CT scan, chest ACS (acute coronary syndrome) Chest pain COVID-19 Dizziness Fatigue History of DVT (deep vein thrombosis) NSTEMI (non-ST elevated myocardial infarction) Stage IV adenocarcinoma of lung Superficial thrombophlebitis of right leg Surgical History No pertinent past surgical history Family History Mother Dyslipidemia Father Heart disease Hypertension Social History Smoking Status: Never smoker Hx Alcohol Use: Yes Alcohol type: beer Hx Substance Use: No Preferred Language: Setswana Gameplay Programmer Required: No Beliefs That Will Affect Care: None Current Living Situation: Spouse Feels Safe at Home: Yes Assistive Devices: None Review of Systems Review of Systems: All systems reviewed & are unremarkable except as noted in HPI & below Physical Exam Constitutional: WD/WN, vitals as above Eyes: PERRL, conjunctivae normal, anicteric sclerae ENMT: external ear and nose normal, oropharynx normal Neck: trachea midline, no thyromegaly Respiratory: normal respiratory effort, lungs clear to auscultation Cardiovascular: RRR, no murmur, no edema Gastrointestinal (Abdomen): normal bowel sounds, soft, nontender, no hepatosplenomegaly Skin: no rashes, warm and dry Results & Data Vital Signs (Past 12 Hours) Vital Signs Temp Pulse Pulse Resp BP BP Pulse Ox 05/12/23 15:24 52 L 16 96 05/12/23 14:30 63 26 H 97 05/12/23 14:30 138/92 05/12/23 14:20 57 L 15 100 05/12/23 14:10 55 L 16 97 05/12/23 14:00 51 L 19 97 05/12/23 14:00 128/79 05/12/23 13:50 76 15 99 05/12/23 13:40 52 L 15 97 05/12/23 13:30 58 L 15 98 05/12/23 13:30 124/78 05/12/23 13:20 54 L 14 97 05/12/23 13:10 60 17 96 05/12/23 13:00 51 L 21 96 05/12/23 13:00 113/63 05/12/23 12:50 57 L 18 96 05/12/23 13:32 49 L 18 124/78 98 05/12/23 13:14 49 L 18 97 05/12/23 12:40 56 L 23 96 05/12/23 12:30 57 L 17 96 05/12/23 12:30 123/80 05/12/23 12:20 57 L 21 95 05/12/23 12:10 65 18 83 L 05/12/23 12:04 100/71 05/12/23 12:04 56 L 21 96 05/12/23 12:00 63 15 95 05/12/23 11:53 64 17 93 05/12/23 11:46 98 05/12/23 11:32 62 17 124/80 96 05/12/23 11:55 64 05/12/23 11:34 36.8 C 62 20 129/81 97 O2 Del Method 05/12/23 15:24 Room Air 05/12/23 14:30 05/12/23 14:30 05/12/23 14:20 05/12/23 14:10 05/12/23 14:00 05/12/23 14:00 05/12/23 13:50 05/12/23 13:40 05/12/23 13:30 05/12/23 13:30 05/12/23 13:20 05/12/23 13:10 05/12/23 13:00 05/12/23 13:00 05/12/23 12:50 05/12/23 13:32 05/12/23 13:14 05/12/23 12:40 05/12/23 12:30 05/12/23 12:30 05/12/23 12:20 05/12/23 12:10 05/12/23 12:04 05/12/23 12:04 05/12/23 12:00 05/12/23 11:53 05/12/23 11:46 05/12/23 11:32 Room Air 05/12/23 11:55 05/12/23 11:34 Room Air Laboratory Results Laboratory Results - last 24 hr 05/12/23 05/12/23 05/12/23 11:55 11:55 11:55 WBC 5.78 RBC 4.40 L Hgb 14.5 Hct 41.2 L MCV 93.6 MCH 33.0 MCHC 35.2 RDW Std Deviation 44.9 RDW Coeff of Jose 13.2 Plt Count 230 MPV 10.7 Immature Gran % (Auto) 0.2 Neut % (Auto) 70.9 Lymph % (Auto) 20.8 [place] % (Auto) 4.2 Eos % (Auto) 2.9 Baso % (Auto) 1.0 Neut # (Auto) 4.10 Lymph # (Auto) 1.20 [place] # (Auto) 0.24 Eos # (Auto) 0.17 Baso # (Auto) 0.06 Immature Gran # (Auto) 0.01 PT 11.2 INR 1.0 APTT 29.0 PTT Ratio 1.0 Sodium 140 Potassium 3.8 Chloride 107 Carbon Dioxide 27 Anion Gap 6 BUN 19 Creatinine 0.97 Est Cr Clr Drug Dosing Not Reportable Est GFR ( Amer) 101.4 Est GFR (Non-Af Amer) 87.5 BUN/Creatinine Ratio 19.6 Glucose 109 H Calcium 9.1 Troponin I High Sens 70.9 H* Triglycerides 293 H Cholesterol 226 H LDL Cholesterol, Calc 123 VLDL Cholesterol, Calc 59 H HDL Cholesterol 44 Cholesterol/HDL Ratio 5.1 H Lipase 26 SARS-CoV-2, RNA, NAAT 05/12/23 05/12/23 05/12/23 13:57 14:04 14:19 WBC RBC Hgb Hct MCV MCH MCHC RDW Std Deviation RDW Coeff of Jose Plt Count MPV Immature Gran % (Auto) Neut % (Auto) Lymph % (Auto) [place] % (Auto) Eos % (Auto) Baso % (Auto) Neut # (Auto) Lymph # (Auto) [place] # (Auto) Eos # (Auto) Baso # (Auto) Immature Gran # (Auto) PT INR APTT PTT Ratio Sodium Potassium Chloride Carbon Dioxide Anion Gap BUN Creatinine Est Cr Clr Drug Dosing Est GFR ( Amer) Est GFR (Non-Af Amer) BUN/Creatinine Ratio Glucose Calcium Troponin I High Sens 74.3 H* Triglycerides Cholesterol LDL Cholesterol, Calc VLDL Cholesterol, Calc HDL Cholesterol Cholesterol/HDL Ratio Lipase SARS-CoV-2, RNA, NAAT Cancelled NEGATIVE
--- NOTE | 2023-05-12 17:57 | Emergency Department Note ---
History of Present Illness General Chief Complaint: Chest Pain Stated Complaint: CHEST PAIN, DIFFICULTY BREATHING, SWEATING Time Seen by Provider: 05/12/23 11:40 History of Present Illness Provider Complaint: chest pain Onset (ago): minute(s) 30 Duration: improved Onset: during rest Pain Location: substernal Pain Radiation: none Severity: severe Maximum Pain Intensity: 9 Current Pain Intensity: 4 Quality: + tightness Relieved By: + nothing Exacerbated By: + nothing Context: no recent illness, no recent surgery, no recent immobilization, no recent travel, no trauma/injury, no new medications or no history of DVT/PE Associated symptoms: + diaphoresis, + dyspnea and + palpitations; no nausea, no vomiting, no syncope or no cough Treatments prior to arrival: none Patient on Xarelto. Patient is also on Keytruda and Aletma Home Medications Medication Instructions Recorded Confirmed Type L.acidophilus,rhamnosus-B.breve-S.thermophilus 1 tab PO QAM 05/12/23 05/12/23 History 3 billion cell chew tab folic acid 1 mg tablet 1 mg PO QAM 05/12/23 05/12/23 History meclizine 25 mg tablet 25 mg PO TID PRN Dizziness 05/12/23 05/12/23 History ondansetron HCl 8 mg tablet 8 mg PO Q6H PRN NAUSEA/VOMITING 05/12/23 05/12/23 History rivaroxaban 20 mg tablet (Xarelto) 20 mg PO HS 05/12/23 05/12/23 History vitamin E 400 unit tablet 400 unit PO QAM 05/12/23 05/12/23 History Allergies Allergy/AdvReac Type Severity Reaction Status Date / Time No Known Allergies Allergy Verified 05/12/23 12:40 Past Med/Surg History Medical History Abnormal CT scan, chest ACS (acute coronary syndrome) Chest pain COVID-19 Dizziness Fatigue History of DVT (deep vein thrombosis) NSTEMI (non-ST elevated myocardial infarction) Stage IV adenocarcinoma of lung Superficial thrombophlebitis of right leg Surgical History No pertinent past surgical history Family History Mother Dyslipidemia Father Heart disease Hypertension Social History Smoking Status: Never smoker Do You Dip or Chew Tobacco: No; Hx Alcohol Use: Yes Alcohol type: beer Hx Substance Use: No Preferred Language: 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 Beliefs That Will Affect Care: None Current Living Situation: Spouse Other Information That Helps Us Care for You: No Feels Safe at Home: Yes Safety Concerns: Feels Safe At This Time Assistive Devices: None Physical Exam Vital Signs Vital Signs - 24 hr 05/12/23 11:34 05/12/23 11:55 05/12/23 11:32 Temperature 36.8 C Temperature Source Temporal Artery Scan Pulse Rate 62 64 Pulse Rate [Apical] 62 Pulse Rate from SpO2 Sensor Respiratory Rate 20 17 Respiratory Effort / Characteristics Non-Labored Spontaneous Respiratory Depth Normal Normal Blood Pressure 129/81 Blood Pressure [Right Arm] 124/80 Blood Pressure Mean 97 Blood Pressure Mean [Right Arm] 94 Blood Pressure Position Sitting Pulse Oximetry 97 96 Oxygen Delivery Method Room Air Room Air Sepsis Recent Fever Within 48 Hours No Sepsis New/Unexplained Change in Mental Status No Sepsis Action Taken by Nursing No Action Required 05/12/23 11:46 05/12/23 11:53 05/12/23 12:00 Temperature Temperature Source Pulse Rate 64 63 Pulse Rate [Apical] Pulse Rate from SpO2 Sensor 66 63 Respiratory Rate 17 15 Respiratory Effort / Characteristics Respiratory Depth Blood Pressure Blood Pressure [Right Arm] Blood Pressure Mean Blood Pressure Mean [Right Arm] Blood Pressure Position Pulse Oximetry 98 93 95 Oxygen Delivery Method Sepsis Recent Fever Within 48 Hours Sepsis New/Unexplained Change in Mental Status Sepsis Action Taken by Nursing 05/12/23 12:04 05/12/23 12:04 05/12/23 12:10 Temperature Temperature Source Pulse Rate 56 L 65 Pulse Rate [Apical] Pulse Rate from SpO2 Sensor 55 L 61 Respiratory Rate 21 18 Respiratory Effort / Characteristics Respiratory Depth Blood Pressure 100/71 Blood Pressure [Right Arm] Blood Pressure Mean 79 Blood Pressure Mean [Right Arm] Blood Pressure Position Pulse Oximetry 96 83 L Oxygen Delivery Method Sepsis Recent Fever Within 48 Hours Sepsis New/Unexplained Change in Mental Status Sepsis Action Taken by Nursing 05/12/23 12:20 05/12/23 12:30 05/12/23 12:30 Temperature Temperature Source Pulse Rate 57 L 57 L Pulse Rate [Apical] Pulse Rate from SpO2 Sensor 57 L 59 L Respiratory Rate 21 17 Respiratory Effort / Characteristics Respiratory Depth Blood Pressure 123/80 Blood Pressure [Right Arm] Blood Pressure Mean 96 Blood Pressure Mean [Right Arm] Blood Pressure Position Pulse Oximetry 95 96 Oxygen Delivery Method Sepsis Recent Fever Within 48 Hours Sepsis New/Unexplained Change in Mental Status Sepsis Action Taken by Nursing 05/12/23 12:40 05/12/23 12:50 05/12/23 13:00 Temperature Temperature Source Pulse Rate 56 L 57 L Pulse Rate [Apical] Pulse Rate from SpO2 Sensor 55 L 56 L Respiratory Rate 23 18 Respiratory Effort / Characteristics Respiratory Depth Blood Pressure 113/63 Blood Pressure [Right Arm] Blood Pressure Mean 77 Blood Pressure Mean [Right Arm] Blood Pressure Position Pulse Oximetry 96 96 Oxygen Delivery Method Sepsis Recent Fever Within 48 Hours Sepsis New/Unexplained Change in Mental Status Sepsis Action Taken by Nursing 05/12/23 13:00 05/12/23 13:10 Temperature Temperature Source Pulse Rate 51 L 60 Pulse Rate [Apical] Pulse Rate from SpO2 Sensor 55 L 61 Respiratory Rate 21 17 Respiratory Effort / Characteristics Respiratory Depth Blood Pressure Blood Pressure [Right Arm] Blood Pressure Mean Blood Pressure Mean [Right Arm] Blood Pressure Position Pulse Oximetry 96 96 Oxygen Delivery Method Sepsis Recent Fever Within 48 Hours Sepsis New/Unexplained Change in Mental Status Sepsis Action Taken by Nursing Physical Exam GENERAL: oriented to person, place, and time. appears well-developed and well- nourished. HENT: Exam performed. - Head: Normocephalic and atraumatic. EYES: Conjunctivae and EOM are normal. Right eye exhibits no discharge. Left eye exhibits no discharge. No scleral icterus. NECK: Normal range of motion. Neck supple. No JVD present. CV: Normal rate, regular rhythm, normal heart sounds and intact distal pulses. There is no peripheral edema. Palpable radial pulses bue. PULM/CHEST: Effort normal and breath sounds normal. No respiratory distress. No stridor. no wheezes. no rales. ABD: The abdomen is soft. There is no tenderness. NEURO: Motor and sensation grossly intact. SKIN: Skin is warm and dry. He is not diaphoretic. PSYCH: normal mood and affect. Behavior is normal. Judgment and thought content normal. Course Course 1140: The patient was evaluated in room C4. A complete history and physical exam was performed Cardiac monitoring: An order was placed for continuous cardiac monitoring. The monitor shows a rate of 60 with sinus rhythm interpreted by sd 1205: Patient reports that the chest pain has resolved status post 1 sublingual nitroglycerin. 1255: Vital signs stable. Labs show an elevated troponin of 70.9. Patient will be admitted for NSTEMI. Patient is already on Xarelto and has been compliant no need for heparin. No chest pain after 1 sublingual nitroglycerin. Patient be admitted to the [facility] hospitalist team. Administered Medications Discontinued Medications Aspirin (Aspirin Chew 324 Mg) Confirm Administered Dose 324 mg .ROUTE .STK-MED ONE Stop: 05/12/23 11:45 Last Admin: 05/12/23 11:46 Dose: 324 mg Documented By: ACC Aspirin (Aspirin Chew 324 Mg) 324 mg PO NOW STA Stop: 05/12/23 11:47 Last Admin: 05/12/23 12:02 Dose: Not Given Documented By: MES Sodium Chloride (Nss 1000ml) 1,000 mls @ 999 mls/hr IV .Q1H1M STA Stop: 05/12/23 12:46 Last Infusion: 05/12/23 16:21 Dose: 0 mls/hr Documented By: Admin: 05/12/23 11:56 Dose: 999 mls/hr Documented By: ACC Nitroglycerin (Nitroglycerin Sl 0.4 Mg/Tab Tab) Confirm Administered Dose 0.4 mg .ROUTE .STK-MED ONE Stop: 05/12/23 11:46 Last Admin: 05/12/23 11:47 Dose: 0.4 mg Documented By: ACC Medical Decision Making Laboratory Data Attestation: I reviewed the patient's lab results. 05/12/23 11:55 05/12/23 11:55 Labs: Lab Results 05/12/23 05/12/23 05/12/23 Range/Units 11:55 11:55 11:55 WBC 5.78 (4.8-10.8) K/ul RBC 4.40 L (4.70-6.10) M/uL Hgb 14.5 (14.0-18.0) g/dl Hct 41.2 L (42.0-52.0) % MCV 93.6 (80.0-100.0) fL MCH 33.0 (25.0-34.0) pg MCHC 35.2 (32.0-36.0) g/dL RDW Std Deviation 44.9 (36.4-46.3) fL RDW Coeff of Jose 13.2 (11.5-14.5) % Plt Count 230 (130-400) K/uL MPV 10.7 (9.4-12.4) fL Immature Gran % (Auto) 0.2 % Neut % (Auto) 70.9 % Lymph % (Auto) 20.8 % [place] % (Auto) 4.2 % Eos % (Auto) 2.9 % Baso % (Auto) 1.0 % Neut # (Auto) 4.10 (1.40-6.50) K/uL Lymph # (Auto) 1.20 (1.2-3.4) K/uL [place] # (Auto) 0.24 (0.11-0.59) K/uL Eos # (Auto) 0.17 (0-0.50) K/uL Baso # (Auto) 0.06 (0-0.2) K/uL Immature Gran # (Auto) 0.01 (0.01-0.20) K/uL PT 11.2 (9.0-12.0) Seconds INR 1.0 (0.9-1.1) APTT 29.0 (21.0-31.0) Seconds PTT Ratio 1.0 Sodium 140 (136-145) mmol/L Potassium 3.8 (3.5-5.1) mmol/L Chloride 107 (98-107) mmol/L Carbon Dioxide 27 (21-32) mmol/L Anion Gap 6 (3-11) BUN 19 (6-23) mg/dl Creatinine 0.97 (0.6-1.4) mg/dl Est Cr Clr Drug Dosing Not Reportable Est GFR ( Amer) 101.4 ml/min Est GFR (Non-Af Amer) 87.5 ml/min BUN/Creatinine Ratio 19.6 (10-20) Glucose 109 H (70-99(Fasting)) mg/dl Calcium 9.1 (8.6-10.3) mg/dl Troponin I High Sens 70.9 H* (0-20) pg/ml Triglycerides 293 H (0-150) mg/dl Cholesterol 226 H (0-200) mg/dl LDL Cholesterol, Calc 123 mg/dl VLDL Cholesterol, Calc 59 H (0-30) mg/dl HDL Cholesterol 44 mg/dl Cholesterol/HDL Ratio 5.1 H (0-5) Lipase 26 (11-82) U/L Imaging Data Chest x-ray: Attestation: I personally reviewed and interpreted this imaging study as follows: My impression: Chest x-ray negative. Airway clear. No pneumothorax. No consolidation. No cardiomegaly or cephalization.. No free air under the diaphragm. No fractures of the skeletal structures. Radiologist's impression: Chest X-Ray 05/12/23 11:46 XR chest 1V portable CLINICAL HISTORY: Chest pain, nonspecific TECHNIQUE: Single frontal radiograph of the chest was obtained. Comparison: Comparison is made to chest radiograph 04/04/2021 FINDINGS: No lines and tubes are seen. The cardiomediastinal silhouette is normal. The lungs are clear. No evidence of pleural effusion or pneumothorax. IMPRESSION: No acute chest disease. ACT 112: Negative or not required by law. Electronically signed by: Michael Gomez M.D. 05/12/2023 12:19 PM ECG Data Attestation: I personally reviewed and interpreted this ECG as follows: Additional Comments: EKG 1 at 1141: Sinus rhythm with a rate of 57. AL QRS and QTc intervals within normal limits. No ST elevation or ST depression. EKG #2 at 1202: Sinus rhythm with a rate of 57. AL 202 QRS [address] elevation or ST depression. First-degree AV block present. [facility] Narrative 1140: The patient was evaluated in room C4. A complete history and physical exam was performed Cardiac monitoring: An order was placed for continuous cardiac monitoring. The monitor shows a rate of 60 with sinus rhythm interpreted by me 1205: Patient reports that the chest pain has resolved status post 1 sublingual nitroglycerin. 1255: Vital signs stable. Labs show an elevated troponin of 70.9. Patient will be admitted for NSTEMI. Patient is already on Xarelto and has been compliant no need for heparin. No chest pain after 1 sublingual nitroglycerin. [facility] Impression & Plan NSTEMI (non-ST elevated myocardial infarction) Discharge Plan Visit Data Chief Complaint: Chest Pain Stated Complaint: CHEST PAIN, DIFFICULTY BREATHING, SWEATING ED Provider: Rizwan Kim Discharge Problem: NSTEMI (non-ST elevated myocardial infarction) Patient Disposition: Admitted As Inpatient Discharge Instructions Interventions: ED Discharge Assessment Last Done: 05/12/23 15:24
[2023-05-12] MEDS ORDERED: RIVAROXABAN 20 MG TAB PO SCH (21:00)
[2023-05-13 06:10] LABS: Hematocrit (blood only) 38.6 % (42.0-52.0); Hemoglobin 13.8 g/dl (14.0-18.0); Mean Corpuscular Hemoglobin 32.8 pg (25.0-34.0); Mean Corpuscular Hgb Conc 35.8 g/dL (32.0-36.0); Mean Corpuscular Volume 91.7 fL (80.0-100.0); Mean Platelet Volume 10.3 fL (9.4-12.4); Platelet Count 201 K/uL (130-400); RDW Coefficient of Variation 13.2 % (11.5-14.5); Red Blood Count 4.21 M/uL (4.70-6.10); White Blood Count 6.35 K/ul (4.8-10.8)
[2023-05-13 06:27] LABS: Albumin Globulin Ratio 1.4 (0.9-2); Albumin Level 3.9 gm/dl (3.4-5.0); BUN Creatinine Ratio 17.8 (10-20); Bilirubin,Total 0.9 mg/dl (0.2-1.0); Calcium 8.5 mg/dl (8.6-10.3); Creatinine Clr Calc Pharmacy 110.4 ml/min; Est GFR (Non-African American) 95.8 ml/min; Globulin 2.7 gm/dl (2.5-4.0); Potassium 3.8 mmol/L (3.5-5.1); Total Protein 6.6 gm/dl (6.0-8.3)
[2023-05-13] MEDS ORDERED: ASPIRIN 81 MG CHEW PO SCH (09:00)
[2023-05-13] MEDS ORDERED: TOCOPHERYL, DL-ALPHA 400 UNITS 180 MG CAP PO SCH (09:00)
[2023-05-13] MEDS ORDERED: ATORVASTATIN 40 MG TAB PO SCH (09:00)
[2023-05-13] MEDS ORDERED: FOLIC ACID 1 MG TAB PO SCH (09:00)
--- NOTE | 2023-05-13 11:54 | Discharge Summary ---
Discharge Summary Date of Service May 13, 2023 Notes For Next Care Provider chest pain this admission from possible myocarditis related to Keytruda use close oncology followup recommended Medication Changes From Visit see med rec Admission HPI Per Admitting Provider Mr. Brothers is a 53 year old male that presented to the [facility] today with chest pain that started this morning while attending yarsani at 1100. He describes sitting in the yarsani pew and abruptly started to have crushing chest pain ranging 8/10, SOB at rest, with diaphoresis with no provoking or palliative factors. No radiation into jaw, shoulder blades, or upper extremities. Has had intermittent reflux symptoms recently, but has not experienced chest pain like this morning. Being followed by Dr. Foote for stage IV adenocarcinoma of the lung diagnosed 04/[address] currently receiving Keytruda, Alitma, and Zometa Q 21 days with his last infusion on 05/09. Labs otherwise unremarkable. Magnesium pending. Additional past medical history includes right lower extremity DVT diagnosed 12/2020 followed by a PE in 07/2021. Patient takes Xarelto daily. Does not take any statins or beta-blockers. Additionally, patient has intermittent 'tunnel' vision that he attributes to position changes coupled with dizziness. States dizziness and vision changes with quick position changes. Does not take any anti-hypertensives. Does correlate these symptoms with chemotherapy. Pt has chronic lower extremity edema related to cancer treatments. ECHO today: EF 60-65%, moderate concentric LVH, no valvular dz, trace MR/TR. Chest x-ray negative for acute cardiopulmonary disease. Patient without without known CAD, no aspirin use over the last week. Family history discussion revealed father due to an AMI at 74 years old. No leukocytosis. Initial Troponin 70.9; will trend. EKG reveals sinus bradycardia with non-ST elevation in anterior leads. Pt denies tobacco, alcohol, or recreational drug use, including medical marijuana. No recent travel. Otherwise, denies ZAMORANO, abdominal pain or tenderness, N/V/D, recent falls or trauma, urinary or bowel changes, auditory changes. Reports having a good appetite without appetite stimulants, overall reports being tired when he receives cancer treatment. Confirmed patient to be a full code. Patient will be admitted for further evaluation and management. Please see A/P for further details. Admission Exam Per Admitting Provider Neuro: AAOx4, PERRLA, no aphagia, memory changes, CNII-XII grossly intact HEENT: head normocephalic, moist mucus membranes CV: S1/S2, bradycardia, (-) M/G/R, (-) edema, cap refill < 3 seconds. (+1) BL LE edema Resp: Lungs CTA in all george. On RA GI: Abdomen S/NT/ND, Ax4 bowel sounds, (-) CVA tenderness Musculoskeletal: 5/5 B/L UE strength, 5/5 B/L LE strength. No gait disturbance Skin: (-) rashes , (-) erythema. Psych: euthymic mood Principal Dx & Hospital Course #1 = Principal Diagnosis (1) Chest pain: (2) History of DVT (deep vein thrombosis): (3) Stage IV adenocarcinoma of lung: (4) Dizziness: Plan 53 Y/O male currently being treated for stage IV adenocarcinoma of the lung diagnosed 04/2021 (receives Keytruda, Alitma, and Zometa Q 21 days with his last infusion on 05/09) and H/O DVT/PE (On Xarelto) presents with anterior crushing chest pain relieved by Nitro SL x1. He was admitted to the medicine team and cardiology was consulted. He was initially treated for ACS with full dose aspirin and atorvastatin. Anticoagulated on Xarelto. EKG was not consis tent with ischemic injury. Troponin trend was elevated but flat likely reflecting the use of Keytruda, known to have a side effect of myocarditis. A stress echo revealed no echocardiographic or ECG evidence of myocardial ischemia having achieved a heart rate adequate fro diagnostic purposes. The Keytruda may have been contributing to a mild myocarditis, but it was felt to be providing more benefit than harm as his symptoms were resolved. Keytruda was continued at discharge as a result. Discharge Exam hemodynamically stable and afebrile oxygenating well on room air mentating and ambulating at baseline. Updated Medication List Medication Instructions Recorded Confirmed Type L.acidophilus,rhamnosus-B.breve-S.thermophilus 1 tab PO QAM 05/12/23 05/12/23 History 3 billion cell chew tab folic acid 1 mg tablet 1 mg PO QAM 05/12/23 05/12/23 History meclizine 25 mg tablet 25 mg PO TID PRN Dizziness 05/12/23 05/12/23 History ondansetron HCl 8 mg tablet 8 mg PO Q6H PRN NAUSEA/VOMITING 05/12/23 05/12/23 History rivaroxaban 20 mg tablet (Xarelto) 20 mg PO HS 05/12/23 05/12/23 History vitamin E 400 unit tablet 400 unit PO QAM 05/12/23 05/12/23 History nitroglycerin 0.4 mg sublingual 0.4 mg sublingual UD PRN chest 05/20/23 Rx tablet (Nitrostat) pain #10 tabs pantoprazole 40 mg tablet,delayed 40 mg PO BID #60 tabs 05/20/23 Rx release prednisone 5 mg tablet 5 mg PO UD #69 tabs 05/20/23 Rx Hospital Stay Data Consultations 05/12/23 12:53 ED Decision to Admit Stat 05/12/23 13:12 Consult Cardiology Routine Pending Results Patient Have Any Pending Studies at Discharge: No Discharge Instructions Given to Patient (Per Discharging Provider) Please take all medications as instructed on discharge list below. It is recommended that you follow-up with your primary care physician within one week of discharge from the hospital to [facility] and ensure you are feeling well. OK to continue Keytruda. This episode may have been related to a side effect of this medication. Please discuss with your cancer doctor at next visit. It was a pleasure taking care of you! Please call if you have any questions or problems. You can reach a [facility] hospitalist on duty at [facility] 24 hours a day by calling [phone]. Take care of yourself. Geraldine Serna, [facility] Hospitalist Total Time Total Time Spent Total Time Spent (In Minutes): 60
--- NOTE | 2023-05-13 12:14 | Cardiology Progress Note ---
Date of Service May 13, 2023 Assessment & Plan (1) Chest pain: (2) Elevated troponin: (3) Non-small cell carcinoma of lung: Plan 53-year-old male presents with acute symptoms of chest pain and shortness of breath with associated diaphoresis occurring at rest. Initial EKG without injury or ischemic pattern but troponins elevated. Echocardiogram with preserved LV systolic function Plan: Agree with telemetry exclude arrhythmia. Keytruda associated with acute myocarditis/myocardial inflammation. We will trend troponins as ordered. May need further ischemic work-up depending on results of EKG and laboratory testing. Beta-stanislav contraindicated given resting bradycardia atorvastatin ordered. Will hold Xarelto 05/13/2023 Patient without recurrent of symptoms. Stress echocardiogram is normal to high level work Troponins elevated but flat likely reflecting patient's underlying medication use with Keytruda. LV systolic function is preserved at rest and stress Recommendations: No findings consistent with acute coronary syndrome. Troponins elevated possibly in association with Keytruda use but with preserved LV systolic function at rest and stress. Would not limit use at this time with patient having excellent clinical response Would resume Xarelto. Admission and Anticipated Discharge Date Admission Date: May 12, 2023 Subjective Patient seen and examined, chart, medications, telemetry reviewed. Patient examined both pre and post stress testing. No further chest pain or shortness of breath. No arrhythmias on telemetry. No dizziness or lightheadedness. No edema Review of Systems Review of Systems: All systems reviewed & are unremarkable except as noted in Subjective Physical Exam Constitutional: WD/WN, vitals as above Eyes: PERRL, conjunctivae normal, anicteric sclerae ENMT: external ear and nose normal, oropharynx normal Neck: trachea midline, no thyromegaly Respiratory: normal respiratory effort, lungs clear to auscultation Cardiovascular: RRR, no murmur, no edema Gastrointestinal (Abdomen): normal bowel sounds, soft, nontender, no hepatosplenomegaly Skin: no rashes, warm and dry Results & Data Vital Signs (Past 12 Hours) Vital Signs Temp Pulse Pulse Resp BP BP Pulse Ox 05/13/23 11:20 36.5 C 74 16 103/67 95 05/13/23 07:03 36.5 C 55 L 14 132/78 97 05/13/23 03:13 36.8 C 51 L 12 123/71 96 O2 Del Method 05/13/23 11:20 Room Air 05/13/23 07:03 Room Air 05/13/23 03:13 Room Air Laboratory Results Laboratory Results - last 24 hr 05/12/23 05/12/23 05/12/23 11:55 11:55 11:55 WBC 5.78 RBC 4.40 L Hgb 14.5 Hct 41.2 L MCV 93.6 MCH 33.0 MCHC 35.2 RDW Std Deviation 44.9 RDW Coeff of Jose 13.2 Plt Count 230 MPV 10.7 Immature Gran % (Auto) 0.2 Neut % (Auto) 70.9 Lymph % (Auto) 20.8 [place] % (Auto) 4.2 Eos % (Auto) 2.9 Baso % (Auto) 1.0 Neut # (Auto) 4.10 Lymph # (Auto) 1.20 [place] # (Auto) 0.24 Eos # (Auto) 0.17 Baso # (Auto) 0.06 Immature Gran # (Auto) 0.01 PT 11.2 INR 1.0 APTT 29.0 PTT Ratio 1.0 Sodium 140 Potassium 3.8 Chloride 107 Carbon Dioxide 27 Anion Gap 6 BUN 19 Creatinine 0.97 Est Cr Clr Drug Dosing Not Reportable Est GFR ( Amer) 101.4 Est GFR (Non-Af Amer) 87.5 BUN/Creatinine Ratio 19.6 Glucose 109 H Calcium 9.1 Magnesium 2.0 Total Bilirubin AST ALT Alkaline Phosphatase Troponin I High Sens 70.9 H* Total Protein Albumin Globulin Albumin/Globulin Ratio Triglycerides 293 H Cholesterol 226 H LDL Cholesterol, Calc 123 VLDL Cholesterol, Calc 59 H HDL Cholesterol 44 Cholesterol/HDL Ratio 5.1 H Lipase 26 SARS-CoV-2, RNA, NAAT 05/12/23 05/12/23 05/12/23 13:57 14:04 14:19 WBC RBC Hgb Hct MCV MCH MCHC RDW Std Deviation RDW Coeff of Jose Plt Count MPV Immature Gran % (Auto) Neut % (Auto) Lymph % (Auto) [place] % (Auto) Eos % (Auto) Baso % (Auto) Neut # (Auto) Lymph # (Auto) [place] # (Auto) Eos # (Auto) Baso # (Auto) Immature Gran # (Auto) PT INR APTT PTT Ratio Sodium Potassium Chloride Carbon Dioxide Anion Gap BUN Creatinine Est Cr Clr Drug Dosing Est GFR ( Amer) Est GFR (Non-Af Amer) BUN/Creatinine Ratio Glucose Calcium Magnesium Total Bilirubin AST ALT Alkaline Phosphatase Troponin I High Sens 74.3 H* Total Protein Albumin Globulin Albumin/Globulin Ratio Triglycerides Cholesterol LDL Cholesterol, Calc VLDL Cholesterol, Calc HDL Cholesterol Cholesterol/HDL Ratio Lipase SARS-CoV-2, RNA, NAAT Cancelled NEGATIVE 05/12/23 05/13/23 05/13/23 18:23 05:40 05:40 WBC 6.35 RBC 4.21 L Hgb 13.8 L Hct 38.6 L MCV 91.7 MCH 32.8 MCHC 35.8 RDW Std Deviation 44.0 RDW Coeff of Jose 13.2 Plt Count 201 MPV 10.3 Immature Gran % (Auto) Neut % (Auto) Lymph % (Auto) [place] % (Auto) Eos % (Auto) Baso % (Auto) Neut # (Auto) Lymph # (Auto) [place] # (Auto) Eos # (Auto) Baso # (Auto) Immature Gran # (Auto) PT INR APTT PTT Ratio Sodium 141 Potassium 3.8 Chloride 107 Carbon Dioxide 30 Anion Gap 4 BUN 16 Creatinine 0.90 Est Cr Clr Drug Dosing 110.4 Est GFR ( Amer) 111.0 Est GFR (Non-Af Amer) 95.8 BUN/Creatinine Ratio 17.8 Glucose 102 H Calcium 8.5 L Magnesium Total Bilirubin 0.9 AST 31 ALT 36 Alkaline Phosphatase 59 Troponin I High Sens 56.5 H* D Total Protein 6.6 Albumin 3.9 Globulin 2.7 Albumin/Globulin Ratio 1.4 Triglycerides 161 H Cholesterol 216 H LDL Cholesterol, Calc 141 VLDL Cholesterol, Calc 32 H HDL Cholesterol 43 Cholesterol/HDL Ratio 5.0 Lipase SARS-CoV-2, RNA, NAAT Diagnostic Findings Stress echocardiogram performed 05/13/2023 Patient exercised to a high level workload achieving 11 minutes on a standard Avi protocol for an estimate level of 13.3 METS. Patient achieved greater than 85% age-predicted maximal heart rate. No symptoms of chest pain or discomfort Normal EKG response to stress Normal echocardiographic response to chest without stress-induced wall motion abnormality Study is negative for stress-induced ischemia at high level workload
--- NOTE | 2023-05-13 12:41 | Electrocardiogram Report ---
Test Reason : Blood Pressure : / mmHG Vent. Rate : 057 BPM Atrial Rate : 057 BPM P-R Int : 202 ms QRS Dur : 100 ms QT Int : 420 ms P-R-T Axes : 031 001 024 degrees QTc Int : 408 ms Sinus bradycardia Poor R wave progression, consider anterior AL vs. lead placement vs. LVH Abnormal ECG When compared with ECG of 12-MAY-2023 11:41, No significant change was found Confirmed by Brandon Howell ([id number]) on 05/13/2023 12:40:49 PM Referred By: REFERRED SELF Confirmed By:Brandon Howell
--- NOTE | 2023-05-13 13:12 | Electrocardiogram Report ---
Test Reason : Blood Pressure : / mmHG Vent. Rate : 056 BPM Atrial Rate : 056 BPM P-R Int : 202 ms QRS Dur : 096 ms QT Int : 436 ms P-R-T Axes : 108 -22 000 degrees QTc Int : 420 ms Sinus bradycardia Inferior infarct , age undetermined Poor R wave progression, consider anterior MO vs. lead placement vs. LVH Abnormal ECG When compared with ECG of 12-MAY-2023 12:02, (unconfirmed) Nonspecific T wave abnormality, worse in Inferior leads Confirmed by Brandon Howell ([id number]) on 05/13/2023 1:12:17 PM Referred By: REFERRED SELF Confirmed By:Brandon Howell
--- NOTE | 2023-05-26 05:20 | Coding Query ---
CHEST PAIN To promote full compliance with coding requirements relating to patient care physician participation is requested in all cases of product engineer uncertainty. Please assist us with the question(s) below: Please list a more specific chest pain diagnosis or cause of chest pain if known by placing an X within the parenthesis (x): ( x) Atypical Chest Pain ( ) Chest Wall Pain ( ) Midsternal Chest Pain ( ) Musculoskeletal Chest Pain ( ) Pleuritic Chest Pain ( ) Substernal Chest Pain ( ) Costochondral Chest Pain ( ) Other (please Specify) Thank you MICK Renteria [facility]
== END 2023-05-13 12:40 | disposition home or self-care (01) | DRG 313 ==
LOC: ED 11:32 → 2S 13:12

== ENCOUNTER 2023-05-18 20:25 | Inpatient (IN) ==
[2023-05-18] MEDS ORDERED: SODIUM CHLORIDE 0.9% 1000ML 1,000 ML IV ONE (20:56)
[2023-05-18 21:37] LABS: Albumin Level 4.3 gm/dl (3.4-5.0); Bilirubin,Total 0.5 mg/dl (0.2-1.0); Calcium 9.2 mg/dl (8.6-10.3); Magnesium 2.1 mg/dl (1.7-2.4); Potassium 3.6 mmol/L (3.5-5.1)
[2023-05-18 21:43] LABS: Albumin Globulin Ratio 1.4 (0.9-2); BUN Creatinine Ratio 12.7 (10-20); Creatinine Clr Calc Pharmacy 91.3 ml/min; Est GFR (African American) 87.1 ml/min; Est GFR (Non-African American) 75.2 ml/min; Globulin 3.1 gm/dl (2.5-4.0); Phosphorus 3.1 mg/dl (2.5-4.9); Total Protein 7.4 gm/dl (6.0-8.3)
[2023-05-18 21:53] LABS: Troponin I High Sensitivity 511.1 pg/ml (0-20)
[2023-05-18] MEDS ORDERED: ACETAMINOPHEN 1,000 MG/100 ML VIAL IV STA (22:21)
--- NOTE | 2023-05-18 22:26 | Emergency Department Note ---
Impression & Plan Chest pain, Elevated troponin, Non-small cell carcinoma of lung ED Provider Note NAME: SERENA MANCILLA AGE: 53 SEX: M ARRIVES VIA: Walk-In INFORMANT: Patient ED PROVIDER(S): Rudolph Jarquin MD CHIEF COMPLAINT: Chest pain PLAN: Disposition: Admit MEDICAL DECISION MAKING: The patient is a pleasant 53-year-old gentleman with a past medical history of non-small cell lung cancer undergoing treatment with Keytruda, history of DVT/PE on Xarelto who presents to the emergency department for chest pain that has continued and was severe today and continued until arrival in the setting of being admitted to this facility on 05/12-05/13 for chest pain with elevated tropo jerson where suspicion was raised for possible adverse effect of his Keytruda. Patient did have a stress test that was negative and echocardiogram that was reassuring at that time. Otherwise they deny any fevers, chills, cough, congestion, GI or symptoms. Patient initially reports that he feels w orsening pain when he lay flat however on our evaluation he reported improvement when supine. On arrival emergency department the patient is in no acute distress, afebrile blood pressure 160s/90s and otherwise with stable vital signs. He appears clinically dry. Exam is otherwise unremarkable. EKG without overt acute ischemia. CXR negative for acute cardiopulmonary process. WBC within normal limits. H/H similar to prior. Platelets within normal limits. Chemistry without metabolic acidosis. Electrolytes without significant abnormality. AST 44, nonspecific and LFTs otherwise unremarkable. Initial high-sensitivity troponin 511, significantly elevated from recent hospitalization of 58-[address] of the chest was performed and was negative for PE. Note is made of spiculated nodule left lower lobe consistent with patient's history of lung cancer that is does decrease significantly compared to 202. Basilar scarring at lung bases is seen. Given constant nature of patient's symptoms ACS is considered less likely given his recent negative stress test. Pericarditis/myocarditis is considered. Upon reevaluation the patient was feeling improved and reported feeling significantly better following IV fluid hydration and IV APAP. We did review his findings and the patient and his agree with plan for admission for further evaluation and management. Given constant nature of patient's symptoms ACS is considered less likely given his recent negative stress test. Pericarditis/myocarditis is considered. However, full dose aspirin administered. [facility] for [facility]. Further management per admitting team. Triage Nursing notes reviewed and agree them. Prior/outside medical records reviewed Vital Signs: reviewed Differential diagnosis: Cardiac ischemia, aortic dissection, pulmonary embolism, pneumothorax, pneumonia, pericarditis, myocarditis, esophageal rupture, GERD, cholecystitis, p ancreatitis, musculoskeletal, as well as other pathologies. ER treatment provided: See below. Diagnostics interpreted by me: ECG: Normal sinus rhythm, 64 bpm, no ectopy, no overt ST elevation or depression, QTc 427, QRS 104. Cardiac Monitoring: An order for continuous cardiac monitoring was placed and demonstrated Normal sinus rhythm, 64 bpm, no ectopy. Laboratory studies: See below Imaging studies: See below Consultation(s): [facility] the patient for admission. HPI: The patient is a pleasant 53-year-old gentleman with a past medical history of non-small cell lung cancer undergoing treatment with Keytruda, history of D VT/PE on Xarelto who presents to the emergency department for chest pain that has continued and was severe today and continued until arrival in the setting of being admitted to this facility on 05/12-05/13 for chest pain with elevated troponin where suspicion was raised for possible adverse effect of his Keytruda. Patient did have a stress test that was negative and echocardiogram that was reassuring at that time. Otherwise they deny any fevers, chills, cough, congestion, GI or symptoms. Patient initially reports that he feels worsening pain when he lay flat however on our evaluation he reported improvement when supine. ROS: See above HPI for pertinent positives & negatives. A total of 10 systems reviewed and were otherwise negative. VITALS:See Below PHYSICAL EXAMINATION: GENERAL: Awake, alert, fatigued but well-appearing, in no distress HENT: Normocephalic, atraumatic. Oropharynx with dry mucous membranes and otherwise unremarkable. EYES: Normal conjunctiva. Sclera non-icteric. NECK: Supple. No nuchal rigidity. FROM. No JVD. RESPIRATORY: Clear to auscultation. CARDIAC: Regular rate, normal rhythm. Extremities warm and well perfused. Pulses equal. ABDOMEN: Soft, non-distended. No tenderness to palpation. No rebound or guarding. No masses. RECTAL: Deferred. MUSCULOSKELETAL: Chest examination reveals no tenderness. The back is symmetrical on inspection without obvious abnormality. There is no CVA tenderness to palpation. No joint edema. LOWER EXTREMITIES: Calves are equal size bilaterally and non-tender. No edema. No discoloration. NEURO: Normal sensorium. No sensory or motor deficits noted. SKIN: No rash or jaundice noted. ED COURSE: Critical Care: I have personally spent greater than 35 minutes of critical care time in the direct management of this patient. This includes bedside care, interpretation of diagnostic studies, and testing, discussion with consultants, patient, and family members, and other required patient management activities. This 35 minut es is in excess of all separately billable procedures. Rudolph Jarquin MD Past Med/Surg History Medical History Abnormal CT scan, chest ACS (acute coronary syndrome) Chest pain COVID-19 Dizziness Fatigue History of DVT (deep vein thrombosis) NSTEMI (non-ST elevated myocardial infarction) Stage IV adenocarcinoma of lung Superficial thrombophlebitis of right leg Surgical History No pertinent past surgical history Family History Mother Dyslipidemia Father Heart disease Hypertension Social History Smoking Status: Never smoker Do You Dip or Chew Tobacco: No; Hx Alcohol Use: No Hx Substance Use: No Preferred Language: Danish Communication Ability: Effective Tube Room Cashier Required: No Beliefs That Will Affect Care: None Current Living Situation: Spouse Other Information That Helps Us Care for You: No Feels Safe at Home: Yes Safety Concerns: Feels Safe At This Time Assistive Devices: None Allergies Allergies Allergy/AdvReac Type Severity Reaction Status Date / Time No Known Allergies Allergy Verified 05/12/23 12:40 Home Meds Home Medications Medication Instructions Recorded Confirmed L.acidophilus,rhamnosus-B.breve-S.thermophilus 1 tab PO QAM 05/12/23 05/12/23 3 billion cell chew tab folic acid 1 mg tablet 1 mg PO QAM 05/12/23 05/12/23 meclizine 25 mg tablet 25 mg PO TID PRN Dizziness 05/12/23 05/12/23 ondansetron HCl 8 mg tablet 8 mg PO Q6H PRN NAUSEA/VOMITING 05/12/23 05/12/23 rivaroxaban 20 mg tablet (Xarelto) 20 mg PO HS 05/12/23 05/12/23 vitamin E 400 unit tablet 400 unit PO QAM 05/12/23 05/12/23 Results & Data (ED) Vital Signs Vital Signs - 24 hr 05/18/23 20:26 05/18/23 20:32 05/18/23 20:33 Temperature 36.5 C Temperature Source Temporal Artery Scan Pulse Rate 62 Pulse Rate [Apical] 58 L Pulse Rate from SpO2 Sensor Respiratory Rate 16 17 Respiratory Effort / Characteristics Non-Labored Respiratory Depth Normal Respiratory Pattern Regular Blood Pressure 162/94 H Blood Pressure [Left Arm] 151/97 H Blood Pressure Mean 116 Blood Pressure Mean [Left Arm] 115 Pulse Oximetry 98 96 95 Oxygen Delivery Method Room Air Room Air Room Air Sepsis Recent Fever Within 48 Hours No Sepsis New/Unexplained Change in Mental Status N/A Sepsis Action Taken by Nursing No Action Required 05/18/23 20:59 05/18/23 20:34 05/18/23 20:35 Temperature Temperature Source Pulse Rate 58 L 62 Pulse Rate [Apical] Pulse Rate from SpO2 Sensor 60 Respiratory Rate 26 H Respiratory Effort / Characteristics Respiratory Depth Respiratory Pattern Blood Pressure Blood Pressure [Left Arm] Blood Pressure Mean Blood Pressure Mean [Left Arm] Pulse Oximetry 99 94 Oxygen Delivery Method Room Air Sepsis Recent Fever Within 48 Hours Sepsis New/Unexplained Change in Mental Status Sepsis Action Taken by Nursing 05/18/23 20:36 05/18/23 21:00 05/18/23 21:30 Temperature Temperature Source Pulse Rate 58 L 57 L 54 L Pulse Rate [Apical] Pulse Rate from SpO2 Sensor 57 L 57 L 55 L Respiratory Rate 16 18 15 Respiratory Effort / Characteristics Respiratory Depth Respiratory Pattern Blood Pressure 151/97 H Blood Pressure [Left Arm] Blood Pressure Mean 115 Blood Pressure Mean [Left Arm] Pulse Oximetry 96 99 97 Oxygen Delivery Method Sepsis Recent Fever Within 48 Hours Sepsis New/Unexplained Change in Mental Status Sepsis Action Taken by Nursing 05/18/23 22:00 05/18/23 22:30 05/18/23 23:00 Temperature Temperature Source Pulse Rate 55 L 58 L 69 Pulse Rate [Apical] Pulse Rate from SpO2 Sensor 57 L 61 Respiratory Rate 16 23 20 Respiratory Effort / Characteristics Respiratory Depth Respiratory Pattern Blood Pressure Blood Pressure [Left Arm] Blood Pressure Mean Blood Pressure Mean [Left Arm] Pulse Oximetry 96 97 Oxygen Delivery Method Sepsis Recent Fever Within 48 Hours Sepsis New/Unexplained Change in Mental Status Sepsis Action Taken by Nursing 05/18/23 23:04 05/18/23 23:30 05/19/23 00:00 Temperature Temperature Source Pulse Rate 58 L 57 L 59 L Pulse Rate [Apical] Pulse Rate from SpO2 Sensor 60 57 L 57 L Respiratory Rate 21 15 17 Respiratory Effort / Characteristics Respiratory Depth Respiratory Pattern Blood Pressure 140/94 143/88 H 140/84 Blood Pressure [Left Arm] Blood Pressure Mean 109 106 102 Blood Pressure Mean [Left Arm] Pulse Oximetry 95 97 93 Oxygen Delivery Method Sepsis Recent Fever Within 48 Hours Sepsis New/Unexplained Change in Mental Status Sepsis Action Taken by Nursing 05/19/23 00:30 05/19/23 00:33 05/19/23 01:00 Temperature Temperature Source Pulse Rate 64 61 58 L Pulse Rate [Apical] Pulse Rate from SpO2 Sensor 59 L 54 L Respiratory Rate 19 20 Respiratory Effort / Characteristics Respiratory Depth Respiratory Pattern Blood Pressure 118/82 Blood Pressure [Left Arm] Blood Pressure Mean 94 Blood Pressure Mean [Left Arm] Pulse Oximetry 96 98 Oxygen Delivery Method Sepsis Recent Fever Within 48 Hours Sepsis New/Unexplained Change in Mental Status Sepsis Action Taken by Nursing Laboratory Data Attestation: I reviewed the patient's lab results. 05/18/23 20:40 05/18/23 20:40 Lab Results 05/18/23 05/18/23 05/18/23 Range/Units 20:40 20:40 20:41 WBC 5.85 (4.8-10.8) K/ul RBC 4.48 L (4.70-6.10) M/uL Hgb 14.8 (14.0-18.0) g/dl Hct 42.1 (42.0-52.0) % MCV 94.0 (80.0-100.0) fL MCH 33.0 (25.0-34.0) pg MCHC 35.2 (32.0-36.0) g/dL RDW Std Deviation 45.1 (36.4-46.3) fL RDW Coeff of Jose 13.6 (11.5-14.5) % Plt Count 218 (130-400) K/uL MPV 10.5 (9.4-12.4) fL Immature Gran % (Auto) 1.0 % Neut % (Auto) 47.7 % Lymph % (Auto) 32.5 % Gulf % (Auto) 12.8 % Eos % (Auto) 5.0 % Baso % (Auto) 1.0 % Neut # (Auto) 2.79 (1.40-6.50) K/uL Lymph # (Auto) 1.90 (1.2-3.4) K/uL Gulf # (Auto) 0.75 H (0.11-0.59) K/uL Eos # (Auto) 0.29 (0-0.50) K/uL Baso # (Auto) 0.06 (0-0.2) K/uL Immature Gran # (Auto) 0.06 (0.01-0.20) K/uL Sodium 140 (136-145) mmol/L Potassium 3.6 (3.5-5.1) mmol/L Chloride 106 (98-107) mmol/L Carbon Dioxide 27 (21-32) mmol/L Anion Gap 7 (3-11) BUN 14 (6-23) mg/dl Creatinine 1.10 (0.6-1.4) mg/dl Est Cr Clr Drug Dosing 91.3 ml/min Est GFR ( Amer) 87.1 ml/min Est GFR (Non-Af Amer) 75.2 ml/min BUN/Creatinine Ratio 12.7 (10-20) Glucose 87 (70-99(Fasting)) mg/dl Calcium 9.2 (8.6-10.3) mg/dl Phosphorus 3.1 (2.5-4.9) mg/dl Magnesium 2.1 (1.7-2.4) mg/dl Total Bilirubin 0.5 (0.2-1.0) mg/dl AST 44 H (13-39) U/L ALT 51 (7-52) U/L Alkaline Phosphatase 78 (34-104) U/L Troponin I High Sens 511.1 H* (0-20) pg/ml B-Natriuretic Peptide (0-100) pg/ml Total Protein 7.4 (6.0-8.3) gm/dl Albumin 4.3 (3.4-5.0) gm/dl Globulin 3.1 (2.5-4.0) gm/dl Albumin/Globulin Ratio 1.4 (0.9-2) Lipase 158 H (11-82) U/L SARS-CoV-2, RNA, NAAT NEGATIVE (NEGATIVE) 05/18/23 Range/Units 22:34 WBC (4.8-10.8) K/ul RBC (4.70-6.10) M/uL Hgb (14.0-18.0) g/dl Hct (42.0-52.0) % MCV (80.0-100.0) fL MCH (25.0-34.0) pg MCHC (32.0-36.0) g/dL RDW Std Deviation (36.4-46.3) fL RDW Coeff of Jose (11.5-14.5) % Plt Count (130-400) K/uL MPV (9.4-12.4) fL Immature Gran % (Auto) % Neut % (Auto) % Lymph % (Auto) % Gulf % (Auto) % Eos % (Auto) % Baso % (Auto) % Neut # (Auto) (1.40-6.50) K/uL Lymph # (Auto) (1.2-3.4) K/uL Gulf # (Auto) (0.11-0.59) K/uL Eos # (Auto) (0-0.50) K/uL Baso # (Auto) (0-0.2) K/uL Immature Gran # (Auto) (0.01-0.20) K/uL Sodium (136-145) mmol/L Potassium (3.5-5.1) mmol/L Chloride (98-107) mmol/L Carbon Dioxide (21-32) mmol/L Anion Gap (3-11) BUN (6-23) mg/dl Creatinine (0.6-1.4) mg/dl Est Cr Clr Drug Dosing ml/min Est GFR ( Amer) ml/min Est GFR (Non-Af Amer) ml/min BUN/Creatinine Ratio (10-20) Glucose (70-99(Fasting)) mg/dl Calcium (8.6-10.3) mg/dl Phosphorus (2.5-4.9) mg/dl Magnesium (1.7-2.4) mg/dl Total Bilirubin (0.2-1.0) mg/dl AST (13-39) U/L ALT (7-52) U/L Alkaline Phosphatase (34-104) U/L Troponin I High Sens (0-20) pg/ml B-Natriuretic Peptide 40 (0-100) pg/ml Total Protein (6.0-8.3) gm/dl Albumin (3.4-5.0) gm/dl Globulin (2.5-4.0) gm/dl Albumin/Globulin Ratio (0.9-2) Lipase (11-82) U/L SARS-CoV-2, RNA, NAAT (NEGATIVE) Administered Medications Discontinued Medications Aspirin (Aspirin Chew 324 Mg) 324 mg PO NOW STA Stop: 05/18/23 23:44 Last Admin: 05/18/23 23:58 Dose: 324 mg Documented By: MARK Sodium Chloride (Nss 1000ml) 1,000 mls @ 999 mls/hr IV .Q1H1M ONE Stop: 05/18/23 21:56 Last Infusion: 05/18/23 22:34 Dose: 0 mls/hr Documented By: Admin: 05/18/23 21:03 Dose: 999 mls/hr Documented By: ANAHI Acetaminophen (Ofirmev) 1,000 mg in 100 mls @ 400 mls/hr IV NOW STA Stop: 05/18/23 22:35 Last Infusion: 05/18/23 23:39 Dose: 0 mls/hr Documented By: Admin: 05/18/23 23:18 Dose: 400 mls/hr Documented By: MARK Ioversol (Ioversol 350 Mg 125ml Prefilled Syringe) 119 ml IV ONCE ONE Stop: 05/18/23 22:53 Last Admin: 05/18/23 22:52 Dose: 119 ml Documented By: CARRIE Imaging Data Radiologist's Impression: Chest CTA 05/18/23 22:19 Exam(s): CTA CHEST IV Amt: 119 ml optiray 350 EXAM: CT Angiography Chest With Intravenous Contrast CLINICAL HISTORY: Reason for exam: lung CA, cp, s/o elevated trop, r/o PE. TECHNIQUE: Axial computed tomographic angiography images of the chest with intravenous contrast. CTDI is 26.15 mGy and DLP is 844.41 mGy-cm. Automated exposure control was utilized for the study. A dose lowering technique was utilized adhering to the principles of ALARA. MIP reconstructed images were created and reviewed. COMPARISON: Dated 04/02/21 FINDINGS: Pulmonary arteries: Unremarkable. No pulmonary embolism. Aorta: No acute findings. No thoracic aortic aneurysm. Lungs: There is a spiculated nodule in the left lower lobe measuring 2. 3 x 1.6 and meters (image 34 series 3), this is significantly decreased from the 2020 comparison study. There is some scarring at the lung bases. Pleural space: Unremarkable. No significant effusion. No pneumothorax. Heart: Unremarkable. No cardiomegaly. No significant pericardial effusion. No evidence of RV dysfunction. Bones/joints: No acute fracture. No dislocation. Soft tissues: Unremarkable. Lymph nodes: Unremarkable. No enlarged lymph nodes. IMPRESSION: No evidence for pulmonary embolus. 1.6 cm spiculated nodule in the left lower lobe which appears significant a decreased from the 2020 comparison and correlation with interval oncologic imaging is recommended. Electronically signed by: Kade Kwong MD 05/18/23 23:25 PM Discharge Plan Visit Data Chief Complaint: Chest Pain Stated Complaint: CHEST PAIN,SOB,HBP ED Provider: Rudolph Jarquin Discharge Problem: Chest pain, Elevated troponin, Non-small cell carcinoma of lung Patient Disposition: Admitted As Inpatient Discharge Instructions Interventions: ED Discharge Assessment Last Done: 05/19/23 02:53
[2023-05-18 22:36] LABS: Basophils # (auto) 0.06 K/uL (0-0.2); Eosinophils # (auto) 0.29 K/uL (0-0.50); Hematocrit (blood only) 42.1 % (42.0-52.0); Hemoglobin 14.8 g/dl (14.0-18.0); Immature Granulocytes # (auto) 0.06 K/uL (0.01-0.20); Lymphocytes % (auto) 32.5 %; Mean Corpuscular Hgb Conc 35.2 g/dL (32.0-36.0); Mean Platelet Volume 10.5 fL (9.4-12.4); Monocytes # (auto) 0.75 K/uL (0.11-0.59); Monocytes % (auto) 12.8 %; Neutrophils # (auto) 2.79 K/uL (1.40-6.50); Neutrophils % (auto) 47.7 %; Platelet Count 218 K/uL (130-400); RDW Coefficient of Variation 13.6 % (11.5-14.5); RDW Standard Deviation 45.1 fL (36.4-46.3); Red Blood Count 4.48 M/uL (4.70-6.10); White Blood Count 5.85 K/ul (4.8-10.8)
[2023-05-18] MEDS ORDERED: IOVERSOL 350 MG 125mL Prefilled Syringe IV ONE (22:52)
--- NOTE | 2023-05-18 23:27 | CT Scan Report ---
Exam(s): CTA CHEST IV Amt: 119 ml optiray 350 EXAM: CT Angiography Chest With Intravenous Contrast CLINICAL HISTORY: Reason for exam: lung CA, cp, s/o elevated trop, r/o PE. TECHNIQUE: Axial computed tomographic angiography images of the chest with intravenous contrast. CTDI is 26.15 mGy and DLP is 844.41 mGy-cm. Automated exposure control was utilized for the study. A dose lowering technique was utilized adhering to the principles of ALARA. MIP reconstructed images were created and reviewed. COMPARISON: Dated 04/02/21 FINDINGS: Pulmonary arteries: Unremarkable. No pulmonary embolism. Aorta: No acute findings. No thoracic aortic aneurysm. Lungs: There is a spiculated nodule in the left lower lobe measuring 2. 3 x 1.6 and meters (image 34 series 3), this is significantly decreased from the 2020 comparison study. There is some scarring at the lung bases. Pleural space: Unremarkable. No significant effusion. No pneumothorax. Heart: Unremarkable. No cardiomegaly. No significant pericardial effusion. No evidence of RV dysfunction. Bones/joints: No acute fracture. No dislocation. Soft tissues: Unremarkable. Lymph nodes: Unremarkable. No enlarged lymph nodes. IMPRESSION: No evidence for pulmonary embolus. 1.6 cm spiculated nodule in the left lower lobe which appears significant a decreased from the 2020 comparison and correlation with interval oncologic imaging is recommended. Electronically signed by: Kade Kwong MD 05/18/23 23:25 PM
[2023-05-18] MEDS ORDERED: ASPIRIN CHEW 324 MG PO STA (23:43)
--- NOTE | 2023-05-19 01:33 | History & Physical Report ---
Date of Service May 19, 2023 Assessment & Plan (1) Elevated troponin: Plan: 53-year-old male present with chest pain and have elevated troponin. Chest pain Troponin of 511 EKG okay Currently asymptomatic Recently recently in the hospital for chest pain chest pain and troponins in the range of 70-50 Stress echo was okay Question of Keytruda induced myocardial inflammation Says the pain is more when he lies down and less when he leans forward Patient is already on Xarelto for DVT CTA chest no PE We will keep him n.p.o., serial cardiac enzymes, repeat echo Monitoring telemetry Cardiac consult in a.m. for further recommendations History of DVT Continue Xarelto Stage IV adenocarcinoma of the lung CAT scan showed decrease lesion Follow-up with heme-onc DVT prophylaxis On Xarelto Disposition Monitoring telemetry Full code (2) Chest pain: (3) Non-small cell carcinoma of lung: History of Present Illness Chief Complaint: Chest pain Primary Care Provider: Matthew Spivey 3 Y/O male currently being treated for stage IV adenocarcinoma of the lung diagnosed 04/2021 (receives Keytruda, Alitma, and Zometa Q 21 days )and H/O DVT/PE (On Xarelto) presents with chest pain. Today morning when patient woke up he was having some nausea. At 1:30 PM patient was playing horse shoe game when he developed retrosternal chest pain mild to moderate in severity radiating to his left arm. Lasted several hours and subsided around 10 PM in the ER. Currently no chest pain. Denies any shortness of breath. No sweating. No headache or dizziness. No runny nose or sore throat. Afebrile. No abdominal pain. Normal bowel and bladder movements. Patient was recently in the hospital for chest pain and got discharged on May 13. During that admission he had a stress echo which was unremarkable. His troponins were elevated in 50-70 range. Cardiology thought his troponin elevation probably secondary to Keytruda. Possible Keytruda associated acute myocarditis medical information. But Naheed Prieto was okay and stress was okay advised to continue Keytruda and discharge. Today troponins is 511. Past medical history as mentioned above Past surgical history colonoscopy, Mediport, mastectomy Allergies Allergy/AdvReac Type Severity Reaction Status Date / Time No Known Allergies Allergy Verified 05/12/23 12:40 Home Medications Medication Instructions Recorded Confirmed Type L.acidophilus,rhamnosus-B.breve-S.thermophilus 1 tab PO QAM 05/12/23 05/12/23 History 3 billion cell chew tab folic acid 1 mg tablet 1 mg PO QAM 05/12/23 05/12/23 History meclizine 25 mg tablet 25 mg PO TID PRN Dizziness 05/12/23 05/12/23 History ondansetron HCl 8 mg tablet 8 mg PO Q6H PRN NAUSEA/VOMITING 05/12/23 05/12/23 History rivaroxaban 20 mg tablet (Xarelto) 20 mg PO HS 05/12/23 05/12/23 History vitamin E 400 unit tablet 400 unit PO QAM 05/12/23 05/12/23 History Past Med/Surg History Medical History Abnormal CT scan, chest ACS (acute coronary syndrome) Chest pain COVID-19 Dizziness Fatigue History of DVT (deep vein thrombosis) NSTEMI (non-ST elevated myocardial infarction) Stage IV adenocarcinoma of lung Superficial thrombophlebitis of right leg Surgical History (Updated 05/19/23 @ 01:38 by Cullen Denney MD) No pertinent past surgical history Family History Mother Dyslipidemia Father Heart disease Hypertension Social History Smoking Status: Never smoker Do You Dip or Chew Tobacco: No; Hx Alcohol Use: Yes Alcohol type: beer Hx Substance Use: No Preferred Language: Kyrgyz Communication Ability: Effective Bar Turner Required: No Beliefs That Will Affect Care: None Current Living Situation: Spouse Feels Safe at Home: Yes Assistive Devices: None Review of Systems Review of Systems: All systems reviewed & are unremarkable except as noted in Subjective Physical Exam Physical Exam: General- Not in distress Head- atraumatic Eyes- PERRL. ENT- oropharynx clear Neck- supple, no JVD, Lungs- clear to auscultation and percussion Heart- regular rhythm; no murmur, no gallop, no rub appreciated Abdomen- normal bowel sounds, soft, nontender, no masses or hepatosplenomegaly Extremities- no pretibial edema, no erythema seen Neuro- alert, oriented x 3; PERRL,Non focal. Skin- warm & dry Results & Data Results & Data Vital Signs (Past 12 Hours) Vital Signs Temp Pulse Pulse Resp BP BP Pulse Ox 05/19/23 00:33 61 05/19/23 00:30 64 19 118/82 96 05/19/23 00:00 59 L 17 140/84 93 05/18/23 23:30 57 L 15 143/88 H 97 05/18/23 23:04 58 L 21 140/94 95 05/18/23 23:00 69 20 05/18/23 22:30 58 L 23 97 05/18/23 22:00 55 L 16 96 05/18/23 21:30 54 L 15 97 05/18/23 21:00 57 L 18 99 05/18/23 20:36 58 L 16 151/97 H 96 05/18/23 20:35 62 26 H 94 05/18/23 20:34 58 L 05/18/23 20:59 99 05/18/23 20:33 58 L 17 151/97 H 95 05/18/23 20:32 96 05/18/23 20:26 36.5 C 62 16 162/94 H 98 O2 Del Method 05/19/23 00:33 05/19/23 00:30 05/19/23 00:00 05/18/23 23:30 05/18/23 23:04 05/18/23 23:00 05/18/23 22:30 05/18/23 22:00 05/18/23 21:30 05/18/23 21:00 05/18/23 20:36 05/18/23 20:35 05/18/23 20:34 05/18/23 20:59 Room Air 05/18/23 20:33 Room Air 05/18/23 20:32 Room Air 05/18/23 20:26 Room Air Diagnostic Findings Laboratory Results WBC 5.85 K/ul (4.8-10.8) 05/18/23 20:40 RBC 4.48 M/uL (4.70-6.10) L 05/18/23 20:40 Hgb 14.8 g/dl (14.0-18.0) 05/18/23 20:40 Hct 42.1 % (42.0-52.0) 05/18/23 20:40 MCV 94.0 fL (80.0-100.0) 05/18/23 20:40 MCH 33.0 pg (25.0-34.0) 05/18/23 20:40 MCHC 35.2 g/dL (32.0-36.0) 05/18/23 20:40 RDW Std Deviation 45.1 fL (36.4-46.3) 05/18/23 20:40 RDW Coeff of Jose 13.6 % (11.5-14.5) 05/18/23 20:40 Plt Count 218 K/uL (130-400) 05/18/23 20:40 MPV 10.5 fL (9.4-12.4) 05/18/23 20:40 Immature Gran % (Auto) 1.0 % 05/18/23 20:40 Neut % (Auto) 47.7 % 05/18/23 20:40 Lymph % (Auto) 32.5 % 05/18/23 20:40 [place] % (Auto) 12.8 % 05/18/23 20:40 Eos % (Auto) 5.0 % 05/18/23 20:40 Baso % (Auto) 1.0 % 05/18/23 20:40 Neut # (Auto) 2.79 K/uL (1.40-6.50) 05/18/23 20:40 Lymph # (Auto) 1.90 K/uL (1.2-3.4) 05/18/23 20:40 [place] # (Auto) 0.75 K/uL (0.11-0.59) H 05/18/23 20:40 Eos # (Auto) 0.29 K/uL (0-0.50) 05/18/23 20:40 Baso # (Auto) 0.06 K/uL (0-0.2) 05/18/23 20:40 Immature Gran # (Auto) 0.06 K/uL (0.01-0.20) 05/18/23 20:40 Sodium 140 mmol/L (136-145) 05/18/23 20:40 Potassium 3.6 mmol/L (3.5-5.1) 05/18/23 20:40 Chloride 106 mmol/L (98-107) 05/18/23 20:40 Carbon Dioxide 27 mmol/L (21-32) 05/18/23 20:40 Anion Gap 7 (3-11) 05/18/23 20:40 BUN 14 mg/dl (6-23) 05/18/23 20:40 Creatinine 1.10 mg/dl (0.6-1.4) 05/18/23 20:40 Est Cr Clr Drug Dosing 91.3 ml/min 05/18/23 20:40 Est GFR ( Amer) 87.1 ml/min 05/18/23 20:40 Est GFR (Non-Af Amer) 75.2 ml/min 05/18/23 20:40 BUN/Creatinine Ratio 12.7 (10-20) 05/18/23 20:40 Glucose 87 mg/dl (70-99(Fasting)) 05/18/23 20:40 Calcium 9.2 mg/dl (8.6-10.3) 05/18/23 20:40 Phosphorus 3.1 mg/dl (2.5-4.9) 05/18/23 20:40 Magnesium 2.1 mg/dl (1.7-2.4) 05/18/23 20:40 Total Bilirubin 0.5 mg/dl (0.2-1.0) 05/18/23 20:40 AST 44 U/L (13-39) H 05/18/23 20:40 ALT 51 U/L (7-52) 05/18/23 20:40 Alkaline Phosphatase 78 U/L (34-104) 05/18/23 20:40 Troponin I High Sens 511.1 pg/ml (0-20) H* 05/18/23 20:40 B-Natriuretic Peptide 40 pg/ml (0-100) 05/18/23 22:34 Total Protein 7.4 gm/dl (6.0-8.3) 05/18/23 20:40 Albumin 4.3 gm/dl (3.4-5.0) 05/18/23 20:40 Globulin 3.1 gm/dl (2.5-4.0) 05/18/23 20:40 Albumin/Globulin Ratio 1.4 (0.9-2) 05/18/23 20:40 Lipase 158 U/L (11-82) H 05/18/23 20:40 SARS-CoV-2, RNA, NAAT NEGATIVE (NEGATIVE) 05/18/23 20:41 Impressions Chest CTA 05/18/23 22:19 Exam(s): CTA CHEST IV Amt: 119 ml optiray 350 EXAM: CT Angiography Chest With Intravenous Contrast CLINICAL HISTORY: Reason for exam: lung CA, cp, s/o elevated trop, r/o PE. TECHNIQUE: Axial computed tomographic angiography images of the chest with intravenous contrast. CTDI is 26.15 mGy and DLP is 844.41 mGy-cm. Automated exposure control was utilized for the study. A dose lowering technique was utilized adhering to the principles of ALARA. MIP reconstructed images were created and reviewed. COMPARISON: Dated 04/02/21 FINDINGS: Pulmonary arteries: Unremarkable. No pulmonary embolism. Aorta: No acute findings. No thoracic aortic aneurysm. Lungs: There is a spiculated nodule in the left lower lobe measuring 2. 3 x 1.6 and meters (image 34 series 3), this is significantly decreased from the 2020 comparison study. There is some scarring at the lung bases. Pleural space: Unremarkable. No significant effusion. No pneumothorax. Heart: Unremarkable. No cardiomegaly. No significant pericardial effusion. No evidence of RV dysfunction. Bones/joints: No acute fracture. No dislocation. Soft tissues: Unremarkable. Lymph nodes: Unremarkable. No enlarged lymph nodes. IMPRESSION: No evidence for pulmonary embolus. 1.6 cm spiculated nodule in the left lower lobe which appears significant a decreased from the 2020 comparison and correlation with interval oncologic imaging is recommended. Electronically signed by: Kade Kwong MD 05/18/23 23:25 PM ECG Additional Comments: ECG normal sinus rhythm with rate of 64. Nonspecific ST changes seen Code Status & VTE Plan VTE Prophylaxis Plan VTE Prophylaxis will be ordered: Yes
[2023-05-19] MEDS ORDERED: MECLIZINE HCL 25 MG TAB PO PRN (02:28)
[2023-05-19] MEDS ORDERED: POLYETHYLENE (MIRALAX) 17 GM PACK PO PRN (02:28)
[2023-05-19] MEDS ORDERED: NITROGLYCERIN SL 0.4 MG/TAB TAB SL PRN (02:28)
[2023-05-19] MEDS ORDERED: ONDANSETRON INJ 2 MG/ML 2 ML VIAL IV PRN (02:28)
[2023-05-19] MEDS ORDERED: ACETAMINOPHEN 325 MG TAB PO PRN (02:28)
[2023-05-19 06:00] LABS: Basophils # (auto) 0.03 K/uL (0-0.2); Basophils % (auto) 0.6 %; Eosinophils # (auto) 0.29 K/uL (0-0.50); Eosinophils % (auto) 5.5 %; Hematocrit (blood only) 37.4 % (42.0-52.0); Hemoglobin 13.4 g/dl (14.0-18.0); Immature Granulocytes # (auto) 0.05 K/uL (0.01-0.20); Lymphocytes # (auto) 1.66 K/uL (1.2-3.4); Lymphocytes % (auto) 31.7 %; Mean Corpuscular Hemoglobin 32.8 pg (25.0-34.0); Mean Corpuscular Hgb Conc 35.8 g/dL (32.0-36.0); Mean Corpuscular Volume 91.7 fL (80.0-100.0); Mean Platelet Volume 9.9 fL (9.4-12.4); Monocytes # (auto) 0.71 K/uL (0.11-0.59); Monocytes % (auto) 13.5 %; Neutrophils % (auto) 47.7 %; Platelet Count 169 K/uL (130-400); RDW Coefficient of Variation 13.4 % (11.5-14.5); RDW Standard Deviation 43.8 fL (36.4-46.3); Red Blood Count 4.08 M/uL (4.70-6.10); White Blood Count 5.24 K/ul (4.8-10.8)
[2023-05-19 06:16] LABS: BUN Creatinine Ratio 12.9 (10-20); Calcium 8.5 mg/dl (8.6-10.3); Creatinine Clr Calc Pharmacy 106.4 ml/min; Est GFR (African American) 106.7 ml/min; Est GFR (Non-African American) 92.1 ml/min; Potassium 3.7 mmol/L (3.5-5.1)
--- NOTE | 2023-05-19 07:51 | Electrocardiogram Report ---
Test Reason : Blood Pressure : / mmHG Vent. Rate : 056 BPM Atrial Rate : 056 BPM P-R Int : 212 ms QRS Dur : 104 ms QT Int : 442 ms P-R-T Axes : 039 005 026 degrees QTc Int : 426 ms Sinus bradycardia with 1st degree A-V block Incomplete right bundle branch block Nondiagnostic inferior Q waves Abnormal ECG When compared with ECG of 18-MAY-2023 20:31, No significant change was found Confirmed by Gio House ([id number]) on 05/19/2023 7:50:41 AM Referred By: IVETTE WALLIS Confirmed By:Gio House
--- NOTE | 2023-05-19 08:11 | Electrocardiogram Report ---
Test Reason : Blood Pressure : / mmHG Vent. Rate : 064 BPM Atrial Rate : 064 BPM P-R Int : 204 ms QRS Dur : 104 ms QT Int : 414 ms P-R-T Axes : 044 018 037 degrees QTc Int : 427 ms Normal sinus rhythm Possible Old Inferior infarct Abnormal ECG When compared with ECG of 13-MAY-2023 05:49, Nonspecific T wave abnormality, improved in Inferior leads Confirmed by Gio House ([id number]) on 05/19/2023 8:11:23 AM Referred By: IVETTE WALLIS Confirmed By:Gio House
--- NOTE | 2023-05-19 08:28 | XRay Report ---
XR chest 1V portable CLINICAL HISTORY: Chest pain, nonspecific COMPARISON STUDY: Chest radiograph May 12, 2023. FINDINGS: Lung volumes are normal. Mild left basilar opacity is present. There is no pneumothorax or pleural effusion. Cardiac size is normal. Mediastinal contours are normal. There is no evidence for p ulmonary edema. IMPRESSION: Mild left basilar opacity. This may reflect pneumonia or atelectasis. Radiographic follow -up to ensure resolution and exclude the possibility of an underlying pulmonary lesion is recommended . ACT 112: Negative or not required by law. Electronically signed by: Dimas Tran M.D. 05/19/2023 8:27 AM
[2023-05-19] MEDS ORDERED: NON-FORMULARY MEDICATION (L.Acid-L.Rham-B.Breve-S.Therm 3 billion cell Tablet,Chewable) PO SCH (09:00)
--- NOTE | 2023-05-19 10:05 | Electrocardiogram Report ---
Test Reason : Blood Pressure : / mmHG Vent. Rate : 065 BPM Atrial Rate : 065 BPM P-R Int : 202 ms QRS Dur : 106 ms QT Int : 428 ms P-R-T Axes : 042 008 031 degrees QTc Int : 445 ms Normal sinus rhythm Nondiagnostic inferior Q waves Abnormal ECG When compared with ECG of 19-MAY-2023 03:08, No significant change was found Confirmed by Gio House ([id number]) on 05/19/2023 10:04:39 AM Referred By: IVETTE WALLIS Confirmed By:Gio House
[2023-05-19] MEDS ORDERED: FAMOTIDINE 20 MG in SYRINGE 3 ML IV STA (10:10)
[2023-05-19] MEDS: FOLIC ACID 1 MG TAB PO SCH (10:47)
[2023-05-19] MEDS ORDERED: Heparin IV Adult Wt-Based Standard *NO* Bolus Protocol IV SCH (11:30)
[2023-05-19 11:42] LABS: C Reactive Protein < 0.50 mg/dl (0-0.5)
[2023-05-19 11:50] LABS: Troponin I High Sensitivity 4514.6 pg/ml (0-20)
[2023-05-19] MEDS ORDERED: HEPARIN SODIUM/DEXTROSE 25,000 UNITS/500 ML BAG IV SCH (12:00)
--- NOTE | 2023-05-19 12:33 | Hospitalist Progress Note ---
Date of Service May 19, 2023 Assessment & Plan (1) Chest pain: (2) Elevated troponin: Plan: Recurrence of chest pain and now rising troponin concerning for ACS. He continues on Xarelto but did not receive a dose of this last evening while in the ER. No evidence of PE or pneumonia on CT chest with contrast. Know history of Keytruda for treatment of Stage 4 adenocarcinoma of lung, known to cause myocarditis. It is difficult to discern if pain and troponin elevation may be asociated wt acute plaque rupture vs myocarditis. Resting echo this morning is unremarkable with EF 60-65%. He received ASA 324 around midnight last night. Can cont on ASA 81mg daily at this time. Appreciate cardiology recommendations. Will given pepcid at this time for heartburn symptom. If pain cannot be controlled, consider urgent cardiac catheterization today. (3) Stage IV adenocarcinoma of lung: Plan: Keytruda, Alitma and zometa q21 days. Last infusion was 05/09. Cont per oncology. After last presentation it was felt more beneficial to continue the Keytruda. (4) History of DVT (deep vein thrombosis): Plan: continue on Xarelto. Xarelto Full Code Dispo-cont telemetry monitoring. Geraldine Serna DO [facility] Hospitalist Admission and Anticipated Discharge Date Admission Date: May 19, 2023 Subjective 53 yo M on Keytruda presents with recurrence of chest pain associated nausea with vomiting this morining. He also had a radiation of pain into his left arm which he can still feel reports feeling some heartburn symptoms similar to yesterday he is NPO and reports hunger No SOB or other issues at this time at bedside, reviewed troponin numbers with her, differential diagnosis and possible treatment options Discussed case [facility] Cardiology. Review of Systems Review of Systems: no acute issues outside of that mentioned above. Physical Exam Physical Exam: CONSTITUTIONAL: WNWD, vitals as above, generally well-appearing, NAD EYES: normal conjunctivae, no scleral icterus ENT: external ear and nose normal, NAD NECK: trachea midline RESPIRATORY: clear to auscultation bilaterally, no crackles, rales or wheezes, normal respiratory effort CARDIOVASCULAR: regular rate and rhythm, S1 and 2 heard without murmurs, gallops or rubs, no JVD, no peripheral edema CHEST: inspection of chest was normal GASTROINTESTINAL: soft, nontender, ND, no guarding MUSCULOSKELETAL: strength 5/5 throughout, head is normocephalic and atraumatic SKIN: warm and dry NEUROLOGIC: CN 2-12 grossly intact, no sensory deficit, normal cognition, normal speech, no tremor PSYCHIATRIC: alert cooperative and oriented to person, place and time. Euthymic mood, makes good eye contact, language grossly intact, recent and remote memory grossly intact. Results & Data Results & Data Vital Signs (Past 12 Hours) Vital Signs Temp Pulse Pulse Resp BP BP Pulse Ox 05/19/23 11:41 36.5 C 54 L 18 128/81 95 05/19/23 07:52 36.5 C 61 18 133/86 95 05/19/23 07:00 49 L 05/19/23 02:41 52 L 05/19/23 02:41 52 L 0 L 05/19/23 02:00 52 L 16 129/85 95 05/19/23 02:43 36.5 C 58 L 18 109/70 96 05/19/23 01:30 64 20 124/80 93 05/19/23 01:00 58 L 20 98 05/19/23 00:33 61 05/19/23 00:30 64 19 118/82 96 O2 Del Method 05/19/23 11:41 Room Air 05/19/23 07:52 Room Air 05/19/23 07:00 05/19/23 02:41 05/19/23 02:41 05/19/23 02:00 05/19/23 02:43 Room Air 05/19/23 01:30 05/19/23 01:00 05/19/23 00:33 05/19/23 00:30 Laboratory Results Short CBC 05/18/23 05/19/23 Range/Units 20:40 05:45 WBC 5.85 5.24 (4.8-10.8) K/ul Hgb 14.8 13.4 L (14.0-18.0) g/dl Hct 42.1 37.4 L (42.0-52.0) % Plt Count 218 169 (130-400) K/uL BMP 05/18/23 05/19/23 20:40 05:45 Sodium 140 141 Potassium 3.6 3.7 Chloride 106 109 H Carbon Dioxide 27 27 BUN 14 12 Creatinine 1.10 0.93 Glucose 87 103 H Calcium 9.2 8.5 L Liver Function 05/18/23 Range/Units 20:40 Total Bilirubin 0.5 (0.2-1.0) mg/dl AST 44 H (13-39) U/L ALT 51 (7-52) U/L Alkaline Phosphatase 78 (34-104) U/L Albumin 4.3 (3.4-5.0) gm/dl Diagnostic Findings Chest X-Ray 05/18/23 20:56 XR chest 1V portable CLINICAL HISTORY: Chest pain, nonspecific COMPARISON STUDY: Chest radiograph May 12, 2023. FINDINGS: Lung volumes are normal. Mild left basilar opacity is present. There is no pneumothorax or pleural effusion. Cardiac size is normal. Mediastinal contours are normal. There is no evidence for pulmonary edema. IMPRESSION: Mild left basilar opacity. This may reflect pneumonia or atelecta sis. Radiographic follow-up to ensure resolution and exclude the possibility of an underlying pulmonary lesion is recommended. ACT 112: Negative or not required by law. Electronically signed by: Dimas Tran M.D. 05/19/2023 8:27 AM Medications Administered Current Inpatient Medications Acetaminophen (Acetaminophen 325 Mg Tab) 650 mg PO Q4H PRN PRN Reason: Pain or Fever Stop: 06/18/23 02:27 Aspirin (Aspirin 81 Mg Ectab) [facility] [place] Stop: 06/18/23 11:29 Folic Acid (Folic Acid 1 Mg Tab) [facility] [place] Stop: 06/18/23 08:59 Last Admin: 05/19/23 10:47 Dose: Not Given Heparin Sodium/Dextrose (Heparin Sodium/Dextrose) 25,000 units in 500 mls @ 30 mls/hr IV .[id number] [facility]; Protocol Stop: 06/18/23 11:59 Meclizine HCl (Meclizine Hcl 25 Mg Tab) 25 mg PO TID PRN PRN Reason: Dizziness Stop: 06/18/23 02:27 Nitroglycerin (Nitroglycerin Sl 0.4 Mg/Tab Tab) 0.4 mg SL Q5M PRN PRN Reason: Chest Pain Stop: 06/18/23 02:27 Ondansetron HCl (Ondansetron Inj 2 Mg/Ml 2 Ml Vial) 4 mg IV Q6H PRN PRN Reason: Nausea Stop: 06/18/23 02:27 Polyethylene Glycol (Polyethylene (Miralax) 17 Gm Pack) 17 gm PO DAILY PRN PRN Reason: Constipation Stop: 06/18/23 02:27
[2023-05-19] MEDS: ASPIRIN 81 MG ECTAB PO SCH (12:39)
--- NOTE | 2023-05-19 14:22 | Cardiology Consultation ---
Date of Consultation May 19, 2023 Assessment & Plan (1) Chest pain: (2) Elevated troponin: (3) Non-small cell carcinoma of lung: (4) History of DVT (deep vein thrombosis): - A CT angiogram was performed on 05/18/2023 with no evidence of pulmonary embolism. Radiology report describes a spiculated nodule in the left lower lobe measuring 2.3 x 1.6 cm which was decreased compared to 202 with some scarring in the lung bases. No pericardial effusion. -C-reactive protein is normal as was the erythrocyte sedimentation rate performed with his morning labs. The patient's white blood cell count is normal with normal eosinophil count, and very minimal elevation in the monocytes. -As previously noted, patient is treated with the checkpoint inhibitor agent pembrolizumab (Keytruda) which has been associated with pneumonitis and myocarditis. Review of the literature reveals that often times a myocarditis associated with this agent presents with viral prodrome and fever which the patient does not have. As noted, his inflammatory markers are within normal limits. -This once again raises the concerns of possible underlying coronary heart disease as a cause of his symptoms and elevation in the troponin, but he did just have a normal exercise stress test without provocation of symptoms at that time. -Recommend advancing the patient's diet today and make him n.p.o. after midnight. He is on Xarelto for history of DVT and PE with pulmonary embolism diagnosed in 2020. He did not receive his dose of Xarelto yesterday 05/18/2023, and at this point we will place him on a heparin bridge with plans to hold at 4 AM for plans for invasive coronary angiography tomorrow 05/20/2023. At this point with improvement in his symptoms and no ST segment elevation on EKG, emergent cardiac catheterization today is not felt to be indicated. Will start aspirin. Liver function tests are within normal notes and recent LDL level was drawn on 05/13/2023 was mildly elevated at 141 mg/dL, therefore start atorvastatin. The patient's baseline heart rate is in the 50s to 60s and so therefore beta-stanislav is not indicated. Blood pressure well controlled without indication for the addition of an WILLIS inhibitor or angiotensin receptor stanislav at present. If coronary angiography does not yield explanation for his symptoms, will need to update his oncologist with regards to changing his treatment. At present given his normal ejection fraction I think it is prudent to hold off on adding corticosteroids. If cardiac catheterization is without culprit, future considerations include cardiac MRI which unfortunately is not available as an inpatient at [facility]. Case discussed at length with Dr Serna of the hospitalist service for purpose of coordination of care. History of Present Illness Attending Physician: Geraldine Serna, DO History of Present Illness Mr Brothers is a 53 year old male seen in cardiology consultation per the request of Dr Serna for the evaluation of chest tightness and elevated troponin. Patient has a history of stage IV non-small cell lung carcinoma with metastatic disease to the bone who is on chronic palliative chemotherapy with pembrolizumab (Keytruda), carboplatin, and pemetrexed every 21 days for the last two years with most recent treatment on 05/09/23 at [facility]. On 05/12/2023 he presented to the emergency department at [facility] with chest discomfort, no acute EKG changes to suggest ischemia, and a mild elevation in the high-sensitivity troponin with measurements of 70.9, 74.3, and 56.5 PG per mL respectively. He was seen in consultation by Dr. Bright of our practice. Resting echocardiogram revealed moderate concentric left ventricular hypertrophy, with no regional wall motion abnormalities, normal diastolic dysfunction, no significant valvular heart disease, no pericardial effusion, LVEF in the range of 60-65%. He remained in the hospital for observation and underwent an exercise stress echocardiogram for further assessment on 05/13/2023 that was negative for ischemia having reached a high workload, 11 minutes on Avi protocol. The patient was subsequently discharged in stable condition. Yesterday, 05/18/2023 he was at a gathering playing [employer] when at 1 PM he had sudden onset of left-sided and central chest tightness with occasional pain in his left arm. He thought that it was due to heat or humidity where the it was what he had ate. He rested in his truck and the air conditioning, and his symptoms waxed and waned having been 5/10 intensity. He subsequently presented to the emergency department again last evening where he has been found to have serial EKG tracings without suggestion of acute ischemia. High-sensitivity troponin however has been elevated with measurements of 511, 3,332, 4,893, and most recently 4,514 PG per mL at 1113 this morning. At the time my assessment the patient's symptoms had resolved. Symptoms were not worsened with deep inspiration or lying flat at the time my assessment. Telemetry revealed sinus bradycardia and sinus rhythm with rates ranging from 50 bpm to 70 bpm. A 5 beat run of nonsustained ventricular tachycardia however was observed at 1019 this morning. History is otherwise notable for DVT and subsequent pulmonary embolism diagnosed by outpatient CT angiography in 2020. Patient has been anticoagulated with Xarelto. 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 Family History: Father's history of diabetes and suddenly of a presumed heart related event in his 70s. Allergies Allergy/AdvReac Type Severity Reaction Status Date / Time No Known Allergies Allergy Verified 05/12/23 12:40 Home Medications Medication Instructions Recorded Confirmed Type L.acidophilus,rhamnosus-B.breve-S.thermophilus 1 tab PO QAM 05/12/23 05/12/23 History 3 billion cell chew tab folic acid 1 mg tablet 1 mg PO QAM 05/12/23 05/12/23 History meclizine 25 mg tablet 25 mg PO TID PRN Dizziness 05/12/23 05/12/23 History ondansetron HCl 8 mg tablet 8 mg PO Q6H PRN NAUSEA/VOMITING 05/12/23 05/12/23 History rivaroxaban 20 mg tablet (Xarelto) 20 mg PO HS 05/12/23 05/12/23 History vitamin E 400 unit tablet 400 unit PO QAM 05/12/23 05/12/23 History Patient History Medical History Abnormal CT scan, chest ACS (acute coronary syndrome) Chest pain COVID-19 Dizziness Fatigue History of DVT (deep vein thrombosis) NSTEMI (non-ST elevated myocardial infarction) Stage IV adenocarcinoma of lung Superficial thrombophlebitis of right leg Surgical History No pertinent past surgical history Family History Mother Dyslipidemia Father Heart disease Hypertension Social History Smoking Status: Never smoker Do You Dip or Chew Tobacco: No; Hx Alcohol Use: No Hx Substance Use: No Preferred Language: Kinyarwanda Communication Ability: Effective Academic Specialist Required: No Beliefs That Will Affect Care: None Current Living Situation: Spouse Other Information That Helps Us Care for You: No Feels Safe at Home: Yes Safety Concerns: Feels Safe At This Time Assistive Devices: None Review of Systems Review of Systems: All systems reviewed & are unremarkable except as noted in HPI & below Physical Exam Physical Exam: Temp Pulse Resp BP Pulse Ox O2 Del Method 36.5 C 54 L 18 128/81 95 Room Air 05/19/23 11:41 05/19/23 11:41 05/19/23 11:41 05/19/23 11:41 05/19/23 11:41 05/19/23 11:41 Constitutional: WD/WN, vitals as above Respiratory: normal respiratory effort, lungs clear to auscultation Cardiovascular: RRR, no murmur, no edema Gastrointestinal (Abdomen): normal bowel sounds, soft, nontender, no hepatosplenomegaly Neurologic: PERRL, EOMI, accommodation nl, no face palsy, no dysarthria Psychiatric: A+Ox3, euthymic affect Results & Data Vital Signs (Past 12 Hours) Vital Signs Temp Pulse Pulse Resp BP Pulse Ox O2 Del Method 05/19/23 11:41 36.5 C 54 L 18 128/81 95 Room Air 05/19/23 07:52 36.5 C 61 18 133/86 95 Room Air 05/19/23 07:00 49 L 05/19/23 02:41 52 L 05/19/23 02:41 52 L 0 L 05/19/23 02:43 36.5 C 58 L 18 109/70 96 Room Air Laboratory Results Cardiac Enzymes 05/18/23 05/18/23 05/19/23 Range/Units 20:40 22:34 02:00 AST 44 H (13-39) U/L Troponin I High Sens 511.1 H* 3332.4 H* D (0-20) pg/ml B-Natriuretic Peptide 40 (0-100) pg/ml 05/19/23 05/19/23 Range/Units 05:45 11:13 AST (13-39) U/L Troponin I High Sens 4893.3 H* D 4514.6 H* (0-20) pg/ml B-Natriuretic Peptide (0-100) pg/ml Coagulation 05/18/23 Range/Units 22:34 B-Natriuretic Peptide 40 (0-100) pg/ml CBC 05/18/23 05/19/23 Range/Units 20:40 05:45 WBC 5.85 5.24 (4.8-10.8) K/ul RBC 4.48 L 4.08 L (4.70-6.10) M/uL Hgb 14.8 13.4 L (14.0-18.0) g/dl Hct 42.1 37.4 L (42.0-52.0) % Plt Count 218 169 (130-400) K/uL Neut # (Auto) 2.79 2.50 (1.40-6.50) K/uL Lymph # (Auto) 1.90 1.66 (1.2-3.4) K/uL [place] # (Auto) 0.75 H 0.71 H (0.11-0.59) K/uL Eos # (Auto) 0.29 0.29 (0-0.50) K/uL Baso # (Auto) 0.06 0.03 (0-0.2) K/uL Comprehensive Metabolic Panel 05/18/23 05/19/23 Range/Units 20:40 05:45 Sodium 140 141 (136-145) mmol/L Potassium 3.6 3.7 (3.5-5.1) mmol/L Chloride 106 109 H (98-107) mmol/L Carbon Dioxide 27 27 (21-32) mmol/L BUN 14 12 (6-23) mg/dl Creatinine 1.10 0.93 (0.6-1.4) mg/dl Glucose 87 103 H (70-99(Fasting)) mg/dl Calcium 9.2 8.5 L (8.6-10.3) mg/dl AST 44 H (13-39) U/L ALT 51 (7-52) U/L Alkaline Phosphatase 78 (34-104) U/L Total Protein 7.4 (6.0-8.3) gm/dl Albumin 4.3 (3.4-5.0) gm/dl Intake and Output 05/18/23 05/19/23 05/19/23 22:59 06:59 14:59 Intake Total 1000 / 1100 100 / 1100 Balance 1000 / 1100 100 / 1100 Intake: IV 1000 / 1100 100 / 1100 Acetaminophen 1,000 mg In 100 100 / 100 ml @ 400 mls/hr IV NOW STA Rx#: [id number] Sodium Chloride 0.9% 1000ML 1, 1000 / 1000 000 ml @ 999 mls/hr IV .Q1H1M ONE Rx#:[id number] Oral 0 / 0 Other: Other Intake Source npo Weight 99.8 kg 96.57 kg Weight Measurement Method Built in [facility] Built in [facility] Diagnostic Findings Serial EKG tracings have been performed, the most recent of which was on 05/19/2023 with findings of sinus rhythm at 65 bpm, Q waves noted in the inferior leads III and aVF that are not felt to meet diagnostic criteria for infarct, and there were no repolarization changes to suggest ischemia. Repeat echocardiogram performed today for reassessment of wall motion revealed ongoing moderate concentric (not asymmetric) left ventricular hypertrophy, no regional wall motion abnormalities noted, LVEF in the range of 60 to 65%, no pericardial effusion.
[2023-05-19] MEDS: ATORVASTATIN 40 MG TAB PO SCH (18:18)
[2023-05-19 19:42] LABS: Partial Thromboplastin Ratio 1.5
[2023-05-19 20:05] LABS: Partial Thromboplastin Time 42.9 Seconds (21.0-31.0)
[2023-05-19] MEDS ORDERED: SODIUM CHLORIDE 0.9% 1000ML 1,000 ML IV SCH (21:00)
[2023-05-19] MEDS ORDERED: RIVAROXABAN 20 MG TAB PO SCH (21:00)
--- NOTE | 2023-05-20 08:33 | Electrocardiogram Report ---
Test Reason : Blood Pressure : / mmHG Vent. Rate : 063 BPM Atrial Rate : 063 BPM P-R Int : 200 ms QRS Dur : 104 ms QT Int : 410 ms P-R-T Axes : 044 014 010 degrees QTc Int : 419 ms Normal sinus rhythm Nondiagnostic inferior Q waves Borderline ECG Abnormal ECG When compared with ECG of 19-MAY-2023 06:41, No significant change was found Confirmed by Gio House ([id number]) on 05/20/2023 8:33:02 AM Referred By: IVETTE WALLIS Confirmed By:Gio House
[2023-05-20] MEDS ORDERED: niCARdipine HCL INJ 2.5 MG/ML 10 ML AMP ONE (09:07)
[2023-05-20] MEDS ORDERED: fentaNYL citrate PF 100 MCG/2 ML VIAL ONE (09:07)
[2023-05-20] MEDS ORDERED: MIDAZOLAM HCL 1 MG/ML 2ML VIAL ONE (09:07)
[2023-05-20] MEDS ORDERED: HEPARIN (PORCINE) 1000 UNIT/ML 10 ML (CATH LAB USE ONLY) ONE (09:07)
[2023-05-20] MEDS ORDERED: NITROGLYCERIN/D5W 100MCG/ML 20ML SYR ONE (09:08)
[2023-05-20] MEDS: ATORVASTATIN 40 MG TAB PO SCH (10:23)
[2023-05-20] MEDS: FOLIC ACID 1 MG TAB PO SCH (10:23)
[2023-05-20] MEDS: ASPIRIN 81 MG ECTAB PO SCH (10:24)
[2023-05-20] MEDS ORDERED: predniSONE 20 MG TAB PO ONE (11:45)
[2023-05-20] MEDS ORDERED: PANTOprazole 40 MG TAB PO SCH (11:45)
--- NOTE | 2023-05-20 12:25 | Cardiology Progress Note ---
Date of Service May 20, 2023 Assessment & Plan (1) Myocarditis: Plan: -perhaps idiopathic , or related to pembrolizumab (Keytruda). -ESR , CRP are normal. -Symptoms resolved. -troponin trending toward improvement -Normal LVEF, no pericardial effusion -normal coronaries on cardiac cath. - DC ASA and atorvastatin. -Start prednisone, tapering course, 20 mg x 7 days, 15 mg x 7 days, 10 mg x 7 days, 5 mg x 7 days , 2.5 mg every other day x 5 doses -protonix for GI prophylaxis while on prednisone -I have placed order for expedited cardiac MRI at or [facility] within a week and scheduling is working on this. 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 -Pt should avoid strenuous work or physical exercise pending results of cardiac MRI and outpatient follow up. - Pt with a single 6 beat run of ventricular ectopy at 10:19 am yesterday, 05/19/23. No recurrence. Baseline bradycardia precluded the use of a beta stanislav. LVEF is normal. (2) Non-small cell carcinoma of lung: Plan: - pembrolizumab (Keytruda) will likely need to be held. -Spoke to Dr Foote of Oncology at [facility] who follows the patient and we collaborated with regards to the prednisone therapy. (3) History of DVT (deep vein thrombosis): Plan: h/o PE , DVT in 2020 . Resume Xarelto this evening. Stable for discharge later today. Admission and Anticipated Discharge Date Admission Date: May 19, 2023 Subjective Patient with episode of mild chest discomfort yesterday. None overnight or thus far today. Telemetry reveals sinus rhythm in the 50s to 60s. Afebrile. Physical Exam Physical Exam: Temp Pulse Resp BP Pulse Ox O2 Del Method 36.5 C 60 23 119/73 95 Room Air 05/20/23 07:20 05/20/23 11:30 05/20/23 11:30 05/20/23 11:15 05/20/23 11:30 05/20/23 09:55 Constitutional: WD/WN, vitals as above Respiratory: normal respiratory effort, lungs clear to auscultation Cardiovascular: RRR, no murmur, no edema right wrist, cath site, clean , dry , intact Gastrointestinal (Abdomen): normal bowel sounds, soft, nontender, no hepatosplenomegaly Neurologic: PERRL, EOMI, accommodation nl, no face palsy, no dysarthria Psychiatric: A+Ox3, euthymic affect Results & Data Diagnostic Findings Cardiac Enzymes 05/19/23 Range/Units 18:35 Troponin I High Sens 2875.7 H* D (0-20) pg/ml Coagulation 05/19/23 Range/Units 18:35 APTT 42.9 H* (21.0-31.0) Seconds Intake and Output 05/19/23 05/20/23 05/20/23 22:59 06:59 14:59 Intake Total 726.5 / 1412.0 385.5 / 1412.0 Balance 726.5 / 1412.0 385.5 / 1412.0 Intake: IV 226.5 / 462.0 235.5 / 462.0 Heparin Sodium/Dextrose 25,000 226.5 / 462.0 235.5 / 462.0 units In 500 ml @ 1,500 UNITS/ HR 30 mls/hr IV .[id number] [facility] Rx #:[id number] Oral 500 / 950 150 / 950 Other: Other Intake Source npo # Unmeasured Voids 2 Weight 96.615 kg Weight Measurement Method Built in [facility] Medications Administered EKG this am SR at 63 bpm, with first degree AV block. Otherwise , normal.
--- NOTE | 2023-05-20 12:58 | Discharge Summary ---
Date of Service May 20, 2023 Admission HPI Per Admitting Provider 3 Y/O male currently being treated for stage IV adenocarcinoma of the lung diagnosed 04/2021 (receives Keytruda, Alitma, and Zometa Q 21 days )and H/O DVT/PE (On Xarelto) presents with chest pain. Today morning when patient woke up he was having some nausea. At 1:30 PM patient was playing horse shoe game when he developed retrosternal chest pain mild to moderate in severity radiating to his left arm. Lasted several hours and subsided around 10 PM in the ER. Currently no chest pain. Denies any shortness of breath. No sweating. No headache or dizziness. No runny nose or sore throat. Afebrile. No abdominal pain. Normal bowel and bladder movements. Patient was recently in the hospital for chest pain and got discharged on May 13. During that admission he had a stress echo which was unremarkable. His troponins were elevated in 50-70 range. Cardiology thought his troponin elevation probably secondary to Keytruda. Possible Keytruda associated acute myocarditis medical information. But Naheed Damircain was okay and stress was okay advised to continue Keytruda and discharge. Today troponins is 511. Past medical history as mentioned above Past surgical history colonoscopy, Mediport, mastectomy Admission Exam Per Admitting Provider General- Not in distress Head- atraumatic Eyes- PERRL. ENT- oropharynx clear Neck- supple, no JVD, Lungs- clear to auscultation and percussion Heart- regular rhythm; no murmur, no gallop, no rub appreciated Abdomen- normal bowel sounds, soft, nontender, no masses or hepatosplenomegaly Extremities- no pretibial edema, no erythema seen Neuro- alert, oriented x 3; PERRL,Non focal. Skin- warm & dry Principal Diagnosis Chest pain, ruled out ACS History of stage IV adenocarcinoma of lung on Keytruda Heartburn, possible GERD Discharge Exam GENERAL: Alert and oriented x3. NAD, on RA. HEENT: No pallor, no icterus. Pupils equal, round and reactive to light. Oral mucosa moist. NECK: No JVD, no neck masses. HEART: S1 and S2 heard. Regular rate and rhythm. No murmur, no gallop. RESPIRATORY SYSTEM: Normal AP diameter. No accessory muscle use. No wheezing, no crackles. ABDOMEN: Soft, bowel sounds present, nontender, no distention. CENTRAL NERVOUS SYSTEM: No facial droop. Speech is clear. Obeys simple commands. Moves extremities. EXTREMITIES: No edema, no erythema seen. Discharge Data Allergies Allergy/AdvReac Type Severity Reaction Status Date / Time No Known Allergies Allergy Verified 05/12/23 12:40 Consultations 05/18/23 23:43 ED Decision to Admit Stat 05/19/23 02:28 Consult Cardiology Routine Procedures Performed Operation Date: 05/20/23 08:00 Actual Procedures p Cineradiography w/Routine Exam - William Mcdonnell MD, PhD p Cath, Coronaries ONLY (no LV) - William Mcdonnell MD, PhD Ordered Studies 05/18/23 22:19 CT angio chest PE protocol Stat 05/20/23 06:44 CL Cath Imgs for PACS use only Routine Hospital Course (1) Chest pain: (2) Elevated troponin: Recurrence of chest pain and now rising troponin concerning for ACS. He continues on Xarelto but did not receive a dose of this on the arrival day evening while in the ER. No evidence of PE or pneumonia on CT chest with contrast. Know history of Keytruda for treatment of Stage 4 adenocarcinoma of lung, known to cause myocarditis. It is difficult to discern if pain and troponin elevation may be associated with acute plaque rupture vs myocarditis. Cardiac cath w/ normal coronaries. Resting echo unremarkable with EF 60-65%. Cardio evaled, plan for OP Cardiac MRI; no asa and statin for now. Pt put on tapering dose of prednisone for concern of myocarditis, patient to continue with pantoprazole 40 Mg twice a day for a month and then daily. Patient also complained of some heartburn symptoms after spicy food on the day of arrival. Patient encouraged to have discussion regarding alternatives to Keytruda during his next follow-up visit with his oncology on May 30. (3) Stage IV adenocarcinoma of lung: Keytruda, Alitma and zometa q21 days. Last infusion was 05/09. Cont per oncology. After last presentation it was felt more beneficial to continue the Keytruda. Next visit May 30 per pt. (4) History of DVT (deep vein thrombosis): continue on Xarelto. Xarelto Full Code Patient being discharged home with following instruction at the point of discharge: Follow-up with your primary care physician within a week time and likely you will need labs CBC/CMP/magnesium/phosphorus. Follow-up with your cardiology in 2 to 4 weeks time upon discharge. You are scheduled to get cardiac MRI/follow-up with your cardiology office for cardiac MRI appointment if you don't get call back. Avoid strenuous activity. Stay off of work through 06/07/2023. Follow-up with your oncology as scheduled on May 30 and encourage discussion regarding alternative for Keytruda due to concerns of myocarditis. You are being started on tapering dose of prednisone as: 20 mg x 7 days (first dose given in the hospital), 15 mg x 7 days, 10 mg x 7 days, 5 mg x 7 days , 2.5 mg every other day x 5 doses. Use Protonix 40 mg twice daily for 4 weeks and then once daily. Avoid spicy/sour food for concerns of heartburn. If your heartburn symptoms are not improved/recurring, you might benefit from establishing with GI doctor, in that case coordinate with your PCP office for referral. Please make sure that you are able to get your medications today by calling your pharmacy before you leave the hospital so that your treatment continuity is not broken. Home Health Attestation I certify that this patient is under my care and that I, or a physicians driller's assistant working with me, had a face to-face encounter that meets the home health [id number] encounter requirements with this patient. The encounter with the patient was in whole, or in part, for the following medical condition, which is the primary reason for home health care (list medical condition): I certify that, based on my findings, the following services are medically necessary home health services: My clinical findings support the need for the above services because: Further, I certify that my clinical findings support that this patient is homebound (i.e. absences from home require considerable and taxing effort and are for medical reasons or pentec[employer] services or infrequently or of short duration when for other reasons) because: Certification for Home Health Services: Based on the above findings, I certify that this patient is confined to the home and needs intermittent chcf care, physical therapy and/or speech therapy or continues to need occupational therapy. The patient is under my care, and I have initiated the establishment of the plan of care. This patient will be followed by a physician who will periodically review the plan of care. Total Time Total Time Spent Total Time Spent (In Minutes): 45 Discharge Plan Discharge Items Patient Disposition: Home - Self-Care Reason For Visit: CHEST PAIN Discharge Diagnosis: Chest pain, ruled out ACS History of stage IV adenocarcinoma of lung on Keytruda Heartburn, possible GERD Activity: Resume your previous activity Non-emergency contact: Primary Care Provider Follow-up/Referrals: William Collazo DO [Supervisor [employer]] - (The cardiology office will call you with an appointment.) Matthew Spivey PA-C [Primary Care Provider] - Diet: Heart Healthy Addtl Attending Provider Instructions: Follow-up with your primary care physician within a week time and likely you will need labs CBC/CMP/magnesium/phosphorus. Follow-up with your cardiology in 2 to 4 weeks time upon discharge. You are scheduled to get cardiac MRI/follow-up with your cardiology office for cardiac MRI appointment if you don't get call back. Avoid strenuous activity. Stay off of work through 06/07/2023. Follow-up with your oncology as scheduled on May 30 and encourage discussion regarding alternative for Keytruda due to concerns of myocarditis. You are being started on tapering dose of prednisone as: 20 mg x 7 days (first dose given in the hospital), 15 mg x 7 days, 10 mg x 7 days, 5 mg x 7 days , 2.5 mg every other day x 5 doses. Use Protonix 40 mg twice daily for 4 weeks and then once daily. Avoid spicy/sour food for concerns of heartburn. If your heartburn symptoms are not improved/recurring, you might benefit from establishing with GI doctor, in that case coordinate with your PCP office for referral. Please make sure that you are able to get your medications today by calling your pharmacy before you leave the hospital so that your treatment continuity is not broken. Pending Studies at Discharge: No Stand-Alone Forms: My TUNJI, Work/School Release, Smoking Cessation Medications and DC Order Prescriptions: New nitroglycerin [Nitrostat] 0.4 mg Tablet, Sublingual 0.4 mg sublingual UD PRN (Reason: chest pain) Qty: 10 0RF pantoprazole 40 mg Tablet,Delayed Release (Dr/Ec) 40 mg PO BID Qty: 60 0RF prednisone 5 mg tablet 5 mg PO UD Qty: 69 0RF Rx Instructions: 20 mg x 6 days, 15 mg x 7 days, 10 mg x 7 days, 5 mg x 7 days , 2.5 mg every other day x 5 doses Continued ondansetron HCl 8 mg tablet 8 mg PO Q6H PRN (Reason: NAUSEA/VOMITING) meclizine 25 mg tablet 25 mg PO TID PRN (Reason: Dizziness) vitamin E 400 unit Tablet 400 unit PO QAM folic acid 1 mg tablet 1 mg PO QAM Xarelto 20 mg tablet 20 mg PO HS L.acid-L.rham-B.breve-S.therm 3 billion cell Tablet,Chewable 1 tab PO QAM Discharge Orders: Discharge Order (Routine); Ordered 05/20/23 Ordered By: Juve Cardoso Admission Data Admit Date/Time: 05/19/23 01:30 Attending Provider: Juve Cardoso Admit Provider: Cullen Denney Primary Care Provider: Matthew Spivey Other Providers: Cullen Denney ; William Collazo
[2023-05-20] MEDS ORDERED: RIVAROXABAN 20 MG TAB PO SCH (21:00)
--- NOTE | 2023-05-26 10:17 | Coding Query ---
CHEST PAIN To promote full compliance with coding requirements relating to patient care physician participation is requested in all cases of flattening machine operator uncertainty. Please assist us with the question(s) below: Please list a more specific chest pain diagnosis or cause of chest pain if known by placing an X within the parenthesis (x). 05/20 Cardiology progress note documented possible myocarditis idiopathic or d/t Keytruda ... Thanks for your help! MICK Renteria [facility] (x ) Atypical Chest Pain ( ) Chest Wall Pain ( ) Midsternal Chest Pain ( ) Musculoskeletal Chest Pain ( ) Pleuritic Chest Pain ( ) Substernal Chest Pain ( ) Costochondral Chest Pain ( ) Other (please Specify) MTDD
--- NOTE | 2023-05-28 12:18 | Pre Anesthesia Assessment ---
Date of Service May 20, 2023 Pre Sedation Assessment Cardiovascular RRR, no murmur, no edema Respiratory normal respiratory effort, lungs clear to auscultation Pre-Sedation Airway Assessment Smoking Status: Never smoker Hx Sleep Apnea: No Short, Thick Neck: No Thyromental Distance: > or= 3.5 Finger Breadths Oral Cavity: + WNL Mallampati Class: III ASA: ASA3 NPO Status Date of Last Intake of Fluids: 05/19/23 Time of Last Intake of Fluids: 22:00 Date of Last Intake of Solid Food: 05/19/23 Time of Last Intake of Solid Foods: 22:00 Notes The planned sedation has been discussed with the patient. Informed Consent was obtained. I have identified the patient, determined the appropriateness of sedation and have assessed the patient immediately prior to the procedure. All medicine(s) and interventions are by my order.
--- NOTE | 2023-05-28 12:20 | Post Anesthesia Assessment ---
Date of Service May 20, 2023 Post Sedation Assessment Recovery Score Activity: Moves 4 extremities Respiration: Deep Breath/Cough Circulation: +/-20% PreAnes Value Consciousness: Fully Awake Oxygen Saturation: > 92% On Room Air Post Anesthesia Score: 10 Discharge Sedation Level of Care: Fast Track Phase II Post Sedation Plan On clinical assessment, the patient appears to have tolerated the sedation without complications. Patient is recovering as anticipated. Patient will continue to be monitored by nursing and may be discharged when sedation discharge criteria are met per below protocol. Upon Completions of procedure up to 15 minutes continue every 5 minute vital signs and the P.A.R. score; then discharge to a Phase I or Fast Track to Phase II per the following guidelines: * Discharge Patient to appropriate Phase II area if PAR is 8 or greater or return to pre- procedure baseline. The post - procedure orders will be as directed. * If PAR score is less than 8 or not return to pre-procedure baseline then patient will follow Phase I monitoring till PAR is reached for Phase II. The Phase I may be done in procedure room or may call to secure a Phase I area. * If naloxone or flumazenil are used for reversal, hold in Phase I for continued monitoring from when last reversal dose was given for a minimum of 60 minutes or longer pending the nurse and/or physician discretion of patient condition before discharge to Phase II. Please call the Sedation Physician to re-evaluate and complete post-note for discharge to Phase II area. Do NOT discharge from procedure sedation or Phase 1 until post- sedation evaluation note is complete by procedure /sedation MD Sedation Discharge Instructions to be given to the patient at discharge to home. [facility] Procedure Codes (Charges) Indication for Procedure Indication for procedure: Non-ST elevation MS, chest pain Sedation/Anesthesia Procedure 1: Sedation/Anesthesia: 54539 Mod Sedation by the same physician;Init15 Min Child Age 5 & Up (Start time 923, end time 932) Total Sedation Time (minutes): 9
--- NOTE | 2023-05-28 12:29 | Cardiac Catheterization ---
[facility] Data: [employer] Cardiac Status Clinical evaluation leading to the procedure CAD Presenation: Non STEMI Anginal Classification: CCS IV Heart Failure: No Cardiogenic Shock within 24 Hours: No Cardiac Arrest within 24 Hours: No Imaging Studies Past 6 Months: No Coronary Anatomy Dominant: Right Left Main (% Stenosis): Normal LAD (% Stenosis): Normal D1 (% Stenosis): Normal D2 (% Stenosis): Normal Circumflex (% Stenosis): Normal OM1 (% Stenosis): Normal OM2 (% Stenosis): Normal RCA (% Stenosis): Normal R PDA (% Stenosis): Normal R PL1 (% Stenosis): Normal Diagnostic Physicians Name: William Mcdonnell MD, PhD Closure Device Percutaneous Entry Location: Radial Closure Device: Radial Band Recommendations: Medical Therapy and/or Counseling Cardiac Cath Procedure Full Procedure Date May 20, 2023 Pre-Procedure Diagnosis Pre-Procedure Diagnosis: Non STEMI AUC Score AUC Score: 07 Post-Procedure Diagnosis Post-Procedure Diagnosis: Normal Coronary Arteries Procedure(s) Performed Procedure(s) Performed: Coronary Angiography Guide Setter William Mcdonnell MD, PhD Estimated Blood Loss Estimated Blood Loss: Less than 5 mL Medication(s) Medication(s): Fentanyl, Heparin, Lidocaine 1%, Nicardipine, Nitroglycerin and Versed Summary of Findings Brief description: Patient was brought to the cardiac catheterization suite where he was shaved and prepped in a sterile fashion. Sedated using IV Versed and fentanyl. Soft tissues of the right wrist were anesthetized using 3 mL of 1% Xylocaine. The right radial artery was accessed with a modified Seldinger technique and a 6 [place]ian radial artery glide sheath was placed. Patient was provided anticoa gulation with IV heparin and antispasmodics including nitroglycerin and nicardipine. All catheters were advanced and exchanged over a 0.035 J-tip wire. Left coronary angiography in orthogonal views with a 5 [place] 4 diagnostic catheter. Right coronary angiography in orthogonal views with a 5 [place] 4 diagnostic catheter. Diagnostic catheters were removed. Radial artery sheath was removed. Hemostasis was obtained using the TR band. Patient remained hemodynamically stable and asymptomatic. He was returned to the recovery area. This ended the case. Coronary angiography findings: TCH-vnmot-bpgstmv vessel bifurcating into LAD and circumflex. No angiographically evident disease. LAD-large caliber and transapical. Provides a septal and a diagonal as its first major branches. It then provides a large caliber branching second diagonal. There is no angiographically evident disease in the LAD or its branches. LCx-this is large caliber and nondominant. Proximal and mid AV groove vessel are large in caliber. From the AV groove vessel there is a medium caliber OM1 followed by a large branching OM 2. Then the distal AV groove vessel becomes smaller and terminates. There is no angiographically significant disease in the circumflex or its branches. RCA-this is large caliber and dominant. Distally it bifurcates into a large PDA and a large multi branching posterolateral. There is no more than mild luminal irregularities in the RCA and its branches. Summary: 1. No angiographically significant coronary disease. 2. Elevated troponin likely represents myocarditis 3. Continue guideline directed medical therapy for primary prevention of coronary disease per primary neurology epilepsy physician. Hemodynamics Rest Ao:: 104/77 mmHg Final Ao: 110/66 mmHg LV: Not performed Recommendations Recommendations: Medical Therapy and/or Counseling Radiation Exposure (mGy) 486 mGy, fluoroscopy time 1.5 minutes Contrast (mls) 54 mL Anesthesia 1 mg IV Versed, 25 mcg IV fentanyl. Start time 923, end time 932 Procedural Complication(s) None Disposition Recovery Room\PACU I attest to the content of the Intraoperative Record and any orders documented therein. Any exceptions are noted below. [facility] Card Cath Procedure Codes Cardiac Catheterization Procedure 1: Cardiovascular Cath Procedures: 29008 Coronaries Moderate Sedation Procedure 1: Sedation/Anesthesia: 12574 Mod Sedation by the same physician;Init15 Min Child Age 5 & Up (Initial 15 minutes, start time 923, end time 932) PG Care Time/CCT Total # of Minutes Spent Total Time Spent with Patient: Total time spent is greater than 50% in coordination of care (as documented) at patient's floor/unit and/or counseling patient:
== END 2023-05-20 12:52 | disposition home or self-care (01) | DRG 313 ==
LOC: ED 20:25 → SUATTDRO 05-19 01:30 → 2E 05-19 01:30 → EDINP 05-23 16:39
PROC: CLB.CCO (2023-05-20 08:00)

== ENCOUNTER 2024-04-10 17:13 | Observation (INO) ==
--- NOTE | 2024-04-10 18:00 | Emergency Department Note ---
Impression & Plan Fever, Diarrhea ED Provider Note HISTORY OF PRESENT ILLNESS: Patient is a 54-year-old male presenting with subjective fevers and chills and diarrhea. Patient is a lung cancer patient currently receiving chemotherapy. His last round of chemo infusion was 1 week ago. He states he been doing well up until today. He has had subjective chills throughout the day today and developed a fever around 2 PM. His temperature was 102.7 via tympanic thermometer. He did not take any antipyretics prior to arrival in the emergency department. He did call his oncologist who referred him to the ER for further evaluation. Patient reports he had multiple episodes of watery diarrhea today. Reports more than 6 episodes of diarrhea. He denies any significant abdominal pain. Denies any chest pain, shortness of breath or cough. Denies any recent sick contact exposures. Denies recent travel. He denies any recent antibiotic use. Patient denies any rashes. Denies any radiation treatment for his lung cancer. ROS: as above PHYSICAL EXAM: Constitutional: Patient appears in no acute distress. HENT: Head: Normocephalic and atraumatic. Eyes: EOMI, PERRL Mouth/Throat: Mucous membranes moist. Neck: Trachea midline. Neck supple. Cardiovascular: Tachycardic with regular rhythm. No murmurs, rubs or gallops. Intact distal pulses. Pulmonary/Chest: No respiratory distress. Breath sounds clear and equal bilaterally. No wheezes or rales. Abdominal: Abdomen soft, no tenderness, rebound or guarding. Musculoskeletal: No edema, tenderness or deformity noted. Skin: Warm and dry. No rash, erythema, pallor or cyanosis Psychiatric: Appropriate mood and affect for situation. Neurological: Alert and keenly responsive. CN II-XII grossly intact, moving all extremities equally and fully. MDM: - Vitals signs showed tachycardia. - History obtained via patient and patient's. History as above. - Chronic conditions affecting care: stage IV adenocarcinoma of lung; CVA - Differential diagnoses include, but are not limited to: UTI; pneumonia; bacteremia; viral syndrome; Cdiff - Order placed for continuous cardiac monitoring. At this time, monitor showed rate of 91 bpm with normal sinus rhythm, per my interpretation. - External medical records reviewed. Discharge summary dated 08/22/2023 was reviewed. Patient was admitted that time for acute CVA. - EKG interpreted by myself showed normal sinus rhythm. Rate 87 bpm. QT 338. No acute ischemic changes. - Laboratory workup interpreted by myself showed normal WBC; normal PT/INR; stable electrolytes; normal troponin; normal BNP; normal procalcitonin - CXR negative for pneumonia, per my interpretation - Blood cultures obtained - Patient given 2L NS in ER. - Patient did develop a fever in the ER. Given 1g IV tylenol and IV cefepime empirically. - Stool PCR and Cdiff samples sent. - Considered CT abdomen/pelvis with IV contrast, but patient has no reproducible abdominal pain on examination. His laboratory workup is grossly unremarkable. - Unclear source for fever at this time. Added lyme and anaplasmosis testing to workup. - Discussion was had with cyanide case hardener about patient's case and need for admission - Hospitalist consulted for admission - [facility] to [facility] for further evaluation and management. ASSESSMENT AND PLAN: Diagnosis: fever; diarrhea Plan: admit Past Med/Surg History Problem List (Updated 04/10/24 @ 19:48 by Amita Evans MD) Diarrhea (Acute) Fever (Acute) Acute CVA (cerebrovascular accident) Stroke-like symptoms (Acute) Myocarditis Chest pain (Acute) Elevated troponin (Acute) Vasectomy status Elevated troponin ACS (acute coronary syndrome) Stage IV adenocarcinoma of lung Chest pain Dizziness History of DVT (deep vein thrombosis) NSTEMI (non-ST elevated myocardial infarction) (Acute) Abnormal CT scan, chest DVT (deep venous thrombosis) (Acute) Ground glass opacity present on imaging of lung (Acute) Superficial thrombophlebitis of right leg (Acute) Medical History Abnormal CT scan, chest ACS (acute coronary syndrome) Chest pain COVID-19 Dizziness Fatigue History of DVT (deep vein thrombosis) NSTEMI (non-ST elevated myocardial infarction) Stage IV adenocarcinoma of lung Superficial thrombophlebitis of right leg Surgical History No pertinent past surgical history Family History Mother Dyslipidemia Father Heart disease Hypertension Social History Smoking Status: Never smoker Do You Dip or Chew Tobacco: No; Hx Alcohol Use: No Hx Substance Use: No Preferred Language: German Communication Ability: Effective Ice Cream Scooper Required: No Beliefs That Will Affect Care: None Current Living Situation: Family Feels Safe at Home: Yes Assistive Devices: None Allergies Allergies Allergy/AdvReac Type Severity Reaction Status Date / Time No Known Allergies Allergy Verified 10/08/23 00:06 Home Meds Home Medications Medication Instructions Recorded Confirmed folic acid 1 mg tablet 1 mg PO QAM 05/12/23 10/08/23 ondansetron HCl 8 mg tablet 8 mg PO Q6H PRN NAUSEA/VOMITING 05/12/23 10/08/23 amlodipine 2.5 mg tablet 2.5 mg PO DAILY 08/20/23 10/08/23 dexamethasone 4 mg tablet 4 mg PO QAM 10/08/23 10/08/23 enoxaparin 100 mg/mL subcutaneous 100 mg subcut BID 10/08/23 10/08/23 syringe olanzapine 5 mg tablet 5 mg PO DIRECTED 10/08/23 10/08/23 prochlorperazine maleate 10 mg 10 mg PO Q6H PRN NAUSEA/VOMITING 10/08/23 10/08/23 tablet topiramate 25 mg tablet 25 mg PO HS 10/08/23 10/08/23 vitamin E 268 mg (400 unit) capsule 268 mg PO DAILY 10/08/23 10/08/23 Previous Rx's Medication Instructions Recorded nitroglycerin 0.4 mg sublingual 0.4 mg sublingual UD PRN chest 05/20/23 tablet (Nitrostat) pain #10 tabs atorvastatin 40 mg tablet 40 mg PO DAILY #30 tabs 08/21/23 Results & Data (ED) Vital Signs Vital Signs - 24 hr 04/10/24 17:23 04/10/24 19:25 04/10/24 19:28 Temperature 37.3 C 39.2 C H Temperature Source Oral Oral Pulse Rate 92 H Pulse Rate [Finger] 90 Respiratory Rate 18 15 Respiratory Effort / Characteristics Non-Labored Respiratory Depth Normal Respiratory Pattern Regular Blood Pressure 130/74 Blood Pressure [Right Arm] 115/78 Blood Pressure Mean 92 Blood Pressure Mean [Right Arm] 90 Pulse Oximetry 96 Oxygen Delivery Method Room Air Sepsis Recent Fever Within 48 Hours No Sepsis New/Unexplained Change in Mental Status N/A Sepsis Action Taken by Nursing No Action Required 04/10/24 19:35 04/10/24 19:39 Temperature Temperature Source Pulse Rate 85 88 Pulse Rate [Finger] Respiratory Rate 19 Respiratory Effort / Characteristics Respiratory Depth Respiratory Pattern Blood Pressure Blood Pressure [Right Arm] Blood Pressure Mean Blood Pressure Mean [Right Arm] Pulse Oximetry Oxygen Delivery Method Sepsis Recent Fever Within 48 Hours Sepsis New/Unexplained Change in Mental Status Sepsis Action Taken by Nursing Laboratory Data 04/10/24 17:35 04/10/24 17:35 Lab Results 04/10/24 04/10/24 04/10/24 Range/Units 17:35 17:50 19:05 WBC 5.66 (4.8-10.8) K/ul RBC 4.63 L (4.70-6.10) M/uL Hgb 13.7 L (14.0-18.0) g/dl Hct 41.1 L (42.0-52.0) % MCV 88.8 (80.0-100.0) fL MCH 29.6 (25.0-34.0) pg MCHC 33.3 (32.0-36.0) g/dL RDW Std Deviation 51.4 H (36.4-46.3) fL RDW Coeff of Jose 16.1 H (11.5-14.5) % Plt Count 297 (130-400) K/uL MPV 10.6 (9.4-12.4) fL Immature Gran % (Auto) 0.7 % Neut % (Auto) 80.2 % Lymph % (Auto) 11.7 % [place] % (Auto) 5.1 % Eos % (Auto) 2.1 % Baso % (Auto) 0.2 % Neut # (Auto) 4.54 (1.40-6.50) K/uL Lymph # (Auto) 0.66 L (1.20-3.40) K/uL [place] # (Auto) 0.29 (0.11-0.59) K/uL Eos # (Auto) 0.12 (0.00-0.50) K/uL Baso # (Auto) 0.01 (0.00-0.20) K/uL Immature Gran # (Auto) 0.04 (0.01-0.20) K/uL Absolute Nucleated RBC 0.03 (0.00-0.12) K/uL Nucleated RBC % (auto) 0.5 % PT 10.2 (9.0-12.0) Seconds INR 0.9 (0.9-1.1) APTT 31 (21-31) Seconds PTT Ratio 1.2 Sodium 137 (136-145) mmol/L Potassium 3.6 (3.5-5.1) mmol/L Chloride 107 (98-107) mmol/L Carbon Dioxide 23 (21-32) mmol/L Anion Gap 7 (3-11) BUN 14 (6-23) mg/dl Creatinine 0.89 (0.6-1.4) mg/dl Est Cr Clr Drug Dosing 114.2 ml/min Est GFR ( Amer) 110.8 ml/min Est GFR (Non-Af Amer) 95.6 ml/min BUN/Creatinine Ratio 15.7 (10-20) Glucose 117 H (70-99(Fasting)) mg/dl Calcium 8.8 (8.6-10.3) mg/dl Magnesium 1.8 (1.7-2.4) mg/dl Total Bilirubin 0.5 (0.2-1.0) mg/dl AST 16 (13-39) U/L ALT 28 (7-52) U/L Alkaline Phosphatase 69 (34-104) U/L Troponin I High Sens 4.3 (0-20) pg/ml B-Natriuretic Peptide 16 (0-100) pg/ml Total Protein 6.9 (6.0-8.3) gm/dl Albumin 4.1 (3.4-5.0) gm/dl Globulin 2.8 (2.5-4.0) gm/dl Albumin/Globulin Ratio 1.5 (0.9-2) Procalcitonin 0.12 (0-0.5) ng/ml Urine Color Yellow Urine Appearance Clear (Clear) Urine pH 5.5 (4.5-7.5) Ur Specific [place] 1.012 (1.000-1.030) Urine Protein Negative (Negative) Urine Glucose (UA) Negative (Negative) Urine Ketones Negative (Negative) Urine Blood Negative (Negative) Urine Nitrite Negative (Negative) Urine Bilirubin Negative (Negative) Urine Urobilinogen Negative (Negative) Ur Leukocyte Esterase Negative (Negative) Adenovirus (PCR) Not Detected (NotDetected) B. pertussis DNA (PCR) Not Detected (NotDetected) B.parapertussis DNA PCR Not Detected (NotDetected) C. pneumoniae DNA (PCR) Not Detected (NotDetected) Coronavirus OC43 (PCR) Not Detected (NotDetected) Coronavirus HKU1 (PCR) Not Detected (NotDetected) Coronavirus 229E (PCR) Not Detected (NotDetected) SARS-CoV-2 (PCR) Not Detected (NotDetected) Coronavirus NL63 (PCR) Not Detected (NotDetected) Human Metapneumovir PCR Not Detected (NotDetected) Influenza Type A (PCR) Not Detected (NotDetected) Influenza Type B (PCR) Not Detected (NotDetected) M. pneumoniae (PCR) Not Detected (NotDetected) Parainfluenza 1 (PCR) Not Detected (NotDetected) Parainfluenza 2 (PCR) Not Detected (NotDetected) Parainfluenza 3 (PCR) Not Detected (NotDetected) Parainfluenza 4 (PCR) Not Detected (NotDetected) RSV (PCR) Not Detected (NotDetected) Entero/Rhino (PCR) Not Detected (NotDetected) Administered Medications Sodium Chloride (Nss) 2,000 mls @ 999 mls/hr IV .Q2H1M ONE Stop: 04/10/24 20:00 Last Admin: 04/10/24 18:30 Dose: 999 mls/hr Documented By: ABELINO Discontinued Medications Acetaminophen (Ofirmev) 1,000 mg in 100 mls @ 400 mls/hr IV NOW STA Stop: 04/10/24 19:44 Last Admin: 04/10/24 19:47 Dose: 400 mls/hr Documented By: ABELINO Cefepime HCl (Maxipime) 2,000 mg in 20 mls @ 5 mls/min IV NOW STA; Protocol Stop: 04/10/24 19:33 Last Admin: 04/10/24 19:48 Dose: 5 mls/min Documented By: ABELINO Discharge Plan Visit Data Chief Complaint: Illness Stated Complaint: 102.7 FEVER, CANCER PT, DIARRHEA ED Provider: Amita Evans Discharge Problem: Fever, Diarrhea Forms Stand Alone Forms: [facility] Prescriptions Prescriptions: No Action amlodipine 2.5 mg tablet 2.5 mg PO DAILY atorvastatin 40 mg Tablet 40 mg PO DAILY Qty: 30 0RF olanzapine 5 mg tablet 5 mg PO DIRECTED Rx Instructions: TAKES NIGHT OF CHEMO, THEN FOR 4 MORE DAYS, REPEAT WITH CHEMO RX. topiramate 25 mg tablet 25 mg PO HS Rx Instructions: PER PT'S SPOUSE "STAYING AT 25 MG FOR NOW". prochlorperazine maleate 10 mg tablet 10 mg PO Q6H PRN (Reason: NAUSEA/VOMITING) dexamethasone 4 mg tablet 4 mg PO QAM vitamin E 268 mg (400 unit) Capsule 268 mg PO DAILY enoxaparin 100 mg/mL syringe 100 mg subcut BID ondansetron HCl 8 mg tablet 8 mg PO Q6H PRN (Reason: NAUSEA/VOMITING) folic acid 1 mg tablet 1 mg PO QAM nitroglycerin [Nitrostat] 0.4 mg Tablet, Sublingual 0.4 mg sublingual UD PRN (Reason: chest pain) Qty: 10 0RF Referrals Referrals: Matthew Spivey PA-C [Primary Care Provider] -
[2024-04-10 18:04] LABS: Basophils # (auto) 0.01 K/uL (0.00-0.20); Basophils % (auto) 0.2 %; Eosinophils # (auto) 0.12 K/uL (0.00-0.50); Eosinophils % (auto) 2.1 %; Hematocrit (blood only) 41.1 % (42.0-52.0); Hemoglobin 13.7 g/dl (14.0-18.0); Immature Granulocytes # (auto) 0.04 K/uL (0.01-0.20); Immature Granulocytes % (auto) 0.7 %; Lymphocytes # (auto) 0.66 K/uL (1.20-3.40); Lymphocytes % (auto) 11.7 %; Mean Corpuscular Hemoglobin 29.6 pg (25.0-34.0); Mean Corpuscular Hgb Conc 33.3 g/dL (32.0-36.0); Mean Corpuscular Volume 88.8 fL (80.0-100.0); Mean Platelet Volume 10.6 fL (9.4-12.4); Monocytes # (auto) 0.29 K/uL (0.11-0.59); Monocytes % (auto) 5.1 %; Neutrophils # (auto) 4.54 K/uL (1.40-6.50); Neutrophils % (auto) 80.2 %; Nucleated RBC # (auto) 0.03 K/uL (0.00-0.12); Nucleated RBC % (auto) 0.5 %; Platelet Count 297 K/uL (130-400); RDW Coefficient of Variation 16.1 % (11.5-14.5); RDW Standard Deviation 51.4 fL (36.4-46.3); Red Blood Count 4.63 M/uL (4.70-6.10); White Blood Count 5.66 K/ul (4.8-10.8)
[2024-04-10 18:20] LABS: Albumin Globulin Ratio 1.5 (0.9-2); Albumin Level 4.1 gm/dl (3.4-5.0); BUN Creatinine Ratio 15.7 (10-20); Bilirubin,Total 0.5 mg/dl (0.2-1.0); Calcium 8.8 mg/dl (8.6-10.3); Creatinine Clr Calc Pharmacy 114.2 ml/min; Est GFR (African American) 110.8 ml/min; Est GFR (Non-African American) 95.6 ml/min; Globulin 2.8 gm/dl (2.5-4.0); Magnesium 1.8 mg/dl (1.7-2.4); Potassium 3.6 mmol/L (3.5-5.1); Total Protein 6.9 gm/dl (6.0-8.3)
[2024-04-10 18:26] LABS: Troponin I High Sensitivity 4.3 pg/ml (0-20)
[2024-04-10] MEDS: SODIUM CHLORIDE 0.9% 2,000 ML IV ONE (18:30)
[2024-04-10 18:32] LABS: INR 0.9 (0.9-1.1); Partial Thromboplastin Ratio 1.2; Partial Thromboplastin Time 31 Seconds (21-31); Prothrombin Time 10.2 Seconds (9.0-12.0)
[2024-04-10 18:50] LABS: Adenovirus PCR Not Detected (NotDetected); Bordetella parapertussis PCR Not Detected (NotDetected); Bordetella pertussis PCR Not Detected (NotDetected); Chlamydia pneumoniae PCR Not Detected (NotDetected); Coronavirus 229E PCR Not Detected (NotDetected); Coronavirus CoV-2 (COVID19)PCR Not Detected (NotDetected); Coronavirus HKU1 PCR Not Detected (NotDetected); Coronavirus NL63 PCR Not Detected (NotDetected); Coronavirus OC43PCR Not Detected (NotDetected); Human Metapneumovirus PCR Not Detected (NotDetected); Influenza A PCR Not Detected (NotDetected); Influenza B PCR Not Detected (NotDetected); Mycoplasma pneumoniae PCR Not Detected (NotDetected); Parainfluenza Virus 1 PCR Not Detected (NotDetected); Parainfluenza Virus 2 PCR Not Detected (NotDetected); Parainfluenza Virus 3 PCR Not Detected (NotDetected); Parainfluenza Virus 4 PCR Not Detected (NotDetected); Respiratory Syncytial VirusPCR Not Detected (NotDetected); Rhinovirus/Enterovirus PCR Not Detected (NotDetected)
[2024-04-10 19:26] LABS: Appearance Urine Clear (Clear); Bilirubin Urine Negative (Negative); Blood Urine Negative (Negative); Color Urine Yellow; Glucose Urine UA Negative (Negative); Ketones Urine Negative (Negative); Leukocyte Esterase Urine Negative (Negative); Nitrite Urine Negative (Negative); Protein Urine Negative (Negative); Specific Gravity Urine 1.012 (1.000-1.030); Urobilinogen Urine Negative (Negative); pH Urine 5.5 (4.5-7.5)
[2024-04-10] MEDS: ACETAMINOPHEN 1,000 MG/100 ML VIAL IV STA (19:47)
[2024-04-10] MEDS: CEFEPIME 2,000 MG/20 ML VIAL IV STA (19:48)
--- NOTE | 2024-04-10 20:23 | History & Physical Report ---
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 Xarelto Full code Patient's requesting updates from providers. Ms. Rose Mary Brothers, contact #[phone]. Text document was generated using [employer] voice recognition software. It may contain grammatical or spelling errors. Kindly contact undersigned for clarification of any documentation item in question. History of Present Illness Chief Complaint: Fever, diarrhea Primary Care Provider: Matthew Spivey History obtained from patient, family, and records. 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 Last confinement July 2023 for acute CVA likely thromboembolic in the setting of COVID-19 infection. Patient had chills today associated with fever. Watery diarrhea without abdominal pain. Not sure about sick contacts. No recent antibiotic Rx. No out-of-town travel or new restaurants. No chest pain, no SOB, no dysuria symptoms. No issues with a port site. IV cefepime administered at the ER. 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 Allergies Allergy/AdvReac Type Severity Reaction Status Date / Time No Known Allergies Allergy Verified 10/08/23 00:06 Home Medications Medication Instructions Recorded Confirmed Type folic acid 1 mg tablet 1 mg PO QAM 05/12/23 04/10/24 History ondansetron HCl 8 mg tablet 8 mg PO Q6H PRN NAUSEA/VOMITING 05/12/23 04/10/24 History nitroglycerin 0.4 mg sublingual 0.4 mg sublingual UD PRN chest 05/20/23 04/10/24 Rx tablet (Nitrostat) pain #10 tabs amlodipine 2.5 mg tablet 2.5 mg PO DAILY 08/20/23 04/10/24 History atorvastatin 40 mg tablet 40 mg PO DAILY #30 tabs 08/21/23 04/10/24 Rx dexamethasone 4 mg tablet 4 mg PO UD PRN chemo days 10/08/23 04/10/24 History enoxaparin 100 mg/mL subcutaneous 80 mg subcut BID 10/08/23 04/10/24 History syringe olanzapine 5 mg tablet 5 mg PO DIRECTED 10/08/23 04/10/24 History prochlorperazine maleate 10 mg 10 mg PO Q6H PRN NAUSEA/VOMITING 10/08/23 04/10/24 History tablet topiramate 25 mg tablet 25 mg PO HS 10/08/23 04/10/24 History vitamin E 268 mg (400 unit) capsule 268 mg PO DAILY 10/08/23 04/10/24 History Vitamin D3 50 mcg PO DAILY 04/10/24 04/10/24 History furosemide 20 mg tablet 20 mg PO DAILY 04/10/24 04/10/24 History Past Med/Surg History Problem List (Updated 04/10/24 @ 19:48 by Amita Evans MD) Diarrhea (Acute) Fever (Acute) Acute CVA (cerebrovascular accident) Stroke-like symptoms (Acute) Myocarditis Chest pain (Acute) Elevated troponin (Acute) Vasectomy status Elevated troponin ACS (acute coronary syndrome) Stage IV adenocarcinoma of lung Chest pain Dizziness History of DVT (deep vein thrombosis) NSTEMI (non-ST elevated myocardial infarction) (Acute) Abnormal CT scan, chest DVT (deep venous thrombosis) (Acute) Ground glass opacity present on imaging of lung (Acute) Superficial thrombophlebitis of right leg (Acute) Medical History Abnormal CT scan, chest ACS (acute coronary syndrome) Chest pain COVID-19 Dizziness Fatigue History of DVT (deep vein thrombosis) NSTEMI (non-ST elevated myocardial infarction) Stage IV adenocarcinoma of lung Superficial thrombophlebitis of right leg Surgical History No pertinent past surgical history Family History Mother Dyslipidemia Father Heart disease Hypertension Social History Smoking Status: Never smoker Do You Dip or Chew Tobacco: No; Hx Alcohol Use: No Hx Substance Use: No Preferred Language: Kyrgyz Communication Ability: Effective Marine Services Technician Required: No Beliefs That Will Affect Care: None Current Living Situation: Family Feels Safe at Home: Yes Assistive Devices: None Review of Systems Review of Systems: As per HPI, all other systems reviewed and negative Physical Exam Physical Exam: GENERAL: Slightly uncomfortable, obese, pleasant, no respiratory distress SKIN: Pallor, warm HEENT: Alopecia, pale palpebral conjunctivae, no ptosis, dry buccal mucosa NECK : Supple, no tenderness CHEST : decreased breath sounds, no tenderness HEART : RRR, no obvious murmurs ABDOMEN: Some distention, nontender EXTREMITIES : No LE swelling/tenderness, no other conspicuous deformities noted NEUROLOGIC : Coherent, no facial asymmetry, no other gross focality Results & Data Results & Data Vital Signs (Past 12 Hours) Vital Signs Temp Pulse Pulse Resp BP BP Pulse Ox 04/10/24 19:39 88 19 04/10/24 19:35 85 04/10/24 19:28 39.2 C H 04/10/24 19:25 90 15 115/78 04/10/24 17:23 37.3 C 92 H 18 130/74 96 O2 Del Method 04/10/24 19:39 04/10/24 19:35 04/10/24 19:28 04/10/24 19:25 04/10/24 17:23 Room Air Laboratory Results Laboratory Results WBC 5.66 K/ul (4.8-10.8) 04/10/24 17:35 RBC 4.63 M/uL (4.70-6.10) L 04/10/24 17:35 Hgb 13.7 g/dl (14.0-18.0) L 04/10/24 17:35 Hct 41.1 % (42.0-52.0) L 04/10/24 17:35 MCV 88.8 fL (80.0-100.0) 04/10/24 17:35 MCH 29.6 pg (25.0-34.0) 04/10/24 17:35 MCHC 33.3 g/dL (32.0-36.0) 04/10/24 17:35 RDW Std Deviation 51.4 fL (36.4-46.3) H 04/10/24 17:35 RDW Coeff of Jose 16.1 % (11.5-14.5) H 04/10/24 17:35 Plt Count 297 K/uL (130-400) 04/10/24 17:35 MPV 10.6 fL (9.4-12.4) 04/10/24 17:35 Immature Gran % (Auto) 0.7 % 04/10/24 17:35 Neut % (Auto) 80.2 % 04/10/24 17:35 Lymph % (Auto) 11.7 % 04/10/24 17:35 Casey % (Auto) 5.1 % 04/10/24 17:35 Eos % (Auto) 2.1 % 04/10/24 17:35 Baso % (Auto) 0.2 % 04/10/24 17:35 Neut # (Auto) 4.54 K/uL (1.40-6.50) 04/10/24 17:35 Lymph # (Auto) 0.66 K/uL (1.20-3.40) L 04/10/24 17:35 Casey # (Auto) 0.29 K/uL (0.11-0.59) 04/10/24 17:35 Eos # (Auto) 0.12 K/uL (0.00-0.50) 04/10/24 17:35 Baso # (Auto) 0.01 K/uL (0.00-0.20) 04/10/24 17:35 Immature Gran # (Auto) 0.04 K/uL (0.01-0.20) 04/10/24 17:35 Absolute Nucleated RBC 0.03 K/uL (0.00-0.12) 04/10/24 17:35 Nucleated RBC % (auto) 0.5 % 04/10/24 17:35 PT 10.2 Seconds (9.0-12.0) 04/10/24 17:35 INR 0.9 (0.9-1.1) 04/10/24 17:35 APTT 31 Seconds (21-31) 04/10/24 17:35 PTT Ratio 1.2 04/10/24 17:35 Sodium 137 mmol/L (136-145) 04/10/24 17:35 Potassium 3.6 mmol/L (3.5-5.1) 04/10/24 17:35 Chloride 107 mmol/L (98-107) 04/10/24 17:35 Carbon Dioxide 23 mmol/L (21-32) 04/10/24 17:35 Anion Gap 7 (3-11) 04/10/24 17:35 BUN 14 mg/dl (6-23) 04/10/24 17:35 Creatinine 0.89 mg/dl (0.6-1.4) 04/10/24 17:35 Est Cr Clr Drug Dosing 114.2 ml/min 04/10/24 17:35 Est GFR ( Amer) 110.8 ml/min 04/10/24 17:35 Est GFR (Non-Af Amer) 95.6 ml/min 04/10/24 17:35 BUN/Creatinine Ratio 15.7 (10-20) 04/10/24 17:35 Glucose 117 mg/dl (70-99(Fasting)) H 04/10/24 17:35 Lactate 0.8 mmol/L (0.4-2.0) 04/10/24 19:30 Calcium 8.8 mg/dl (8.6-10.3) 04/10/24 17:35 Magnesium 1.8 mg/dl (1.7-2.4) 04/10/24 17:35 Total Bilirubin 0.5 mg/dl (0.2-1.0) 04/10/24 17:35 AST 16 U/L (13-39) 04/10/24 17:35 ALT 28 U/L (7-52) 04/10/24 17:35 Alkaline Phosphatase 69 U/L (34-104) 04/10/24 17:35 Troponin I High Sens 4.3 pg/ml (0-20) 04/10/24 17:35 B-Natriuretic Peptide 16 pg/ml (0-100) 04/10/24 17:35 Total Protein 6.9 gm/dl (6.0-8.3) 04/10/24 17:35 Albumin 4.1 gm/dl (3.4-5.0) 04/10/24 17:35 Globulin 2.8 gm/dl (2.5-4.0) 04/10/24 17:35 Albumin/Globulin Ratio 1.5 (0.9-2) 04/10/24 17:35 Procalcitonin 0.12 ng/ml (0-0.5) 04/10/24 17:35 Urine Color Yellow 04/10/24 19:05 Urine Appearance Clear (Clear) 04/10/24 19:05 Urine pH 5.5 (4.5-7.5) 04/10/24 19:05 Ur Specific [place] 1.012 (1.000-1.030) 04/10/24 19:05 Urine Protein Negative (Negative) 04/10/24 19:05 Urine Glucose (UA) Negative (Negative) 04/10/24 19:05 Urine Ketones Negative (Negative) 04/10/24 19:05 Urine Blood Negative (Negative) 04/10/24 19:05 Urine Nitrite Negative (Negative) 04/10/24 19:05 Urine Bilirubin Negative (Negative) 04/10/24 19:05 Urine Urobilinogen Negative (Negative) 04/10/24 19:05 Ur Leukocyte Esterase Negative (Negative) 04/10/24 19:05 Stl C. diff Tox B Gene Negative Cdiff Gene (Neg) 04/10/24 19:05 Adenovirus (PCR) Not Detected (NotDetected) 04/10/24 17:50 B. pertussis DNA (PCR) Not Detected (NotDetected) 04/10/24 17:50 B.parapertussis DNA PCR Not Detected (NotDetected) 04/10/24 17:50 C. pneumoniae DNA (PCR) Not Detected (NotDetected) 04/10/24 17:50 Coronavirus OC43 (PCR) Not Detected (NotDetected) 04/10/24 17:50 Coronavirus HKU1 (PCR) Not Detected (NotDetected) 04/10/24 17:50 Coronavirus 229E (PCR) Not Detected (NotDetected) 04/10/24 17:50 SARS-CoV-2 (PCR) Not Detected (NotDetected) 04/10/24 17:50 Coronavirus NL63 (PCR) Not Detected (NotDetected) 04/10/24 17:50 Human Metapneumovir PCR Not Detected (NotDetected) 04/10/24 17:50 Influenza Type A (PCR) Not Detected (NotDetected) 04/10/24 17:50 Influenza Type B (PCR) Not Detected (NotDetected) 04/10/24 17:50 M. pneumoniae (PCR) Not Detected (NotDetected) 04/10/24 17:50 Parainfluenza 1 (PCR) Not Detected (NotDetected) 04/10/24 17:50 Parainfluenza 2 (PCR) Not Detected (NotDetected) 04/10/24 17:50 Parainfluenza 3 (PCR) Not Detected (NotDetected) 04/10/24 17:50 Parainfluenza 4 (PCR) Not Detected (NotDetected) 04/10/24 17:50 RSV (PCR) Not Detected (NotDetected) 04/10/24 17:50 Entero/Rhino (PCR) Not Detected (NotDetected) 04/10/24 17:50
[2024-04-10] MEDS ORDERED: PROMETHAZINE HCL 12.5 MG in SODIUM CHLORIDE 0.9% 50 ML IV PRN (20:26)
[2024-04-10] MEDS ORDERED: oxyCODONE HCL IR 5 MG TAB (IMMEDIATE RELEASE) PO PRN (20:26)
[2024-04-10] MEDS ORDERED: ACETAMINOPHEN 325 MG TAB PO PRN (20:26)
[2024-04-10] MEDS ORDERED: LORazepam 0.5 MG TAB PO PRN (20:26)
[2024-04-10 20:47] LABS: Adenovirus F 40/41 PCR Not Detected (NotDetected); Astrovirus PCR Not Detected (NotDetected); Campylobacter PCR Not Detected (NotDetected); Cryptosporidium PCR Not Detected (NotDetected); Cyclospora cayetanensis PCR Not Detected (NotDetected); Entamoeba histolytica PCR Not Detected (NotDetected); Enteroaggregative E.coli(EAEC) Not Detected (NotDetected); Enteropathogenic E.coli (EPEC) Not Detected (NotDetected); Enterotoxigenic E.coli (ETEC) Not Detected (NotDetected); Giardia lamblia PCR Not Detected (NotDetected); Norovirus GI/GII PCR Not Detected (NotDetected); Plesiomonas shigelloides PCR Not Detected (NotDetected); Rotavirus A PCR Not Detected (NotDetected); Salmonella PCR Not Detected (NotDetected); Sapovirus PCR Not Detected (NotDetected); Shiga-like Toxin E.coli (STEC) Not Detected (NotDetected); Shigella/Enteroinvasive E.coli Not Detected (NotDetected); Vibrio cholerae PCR Not Detected (NotDetected); Vibrio species PCR Not Detected (NotDetected); Yersinia enterocolitica PCR Not Detected (NotDetected)
[2024-04-10] MEDS: NSS + 20MEQ KCL 20 MEQ/1,000 ML BAG IV ONE (21:11)
[2024-04-10] MEDS: ENOXAPARIN 80 MG/0.8 ML SYR SQ ONE (21:11)
[2024-04-10] MEDS: TOPIRAMATE 25 MG TAB PO STA (21:36)
--- NOTE | 2024-04-10 22:00 | XRay Report ---
XR chest 1V portable CLINICAL HISTORY: fever TECHNIQUE: Single frontal radiograph of the chest was obtained. Comparison: Comparison is made to chest radiograph 08/20/2023 FINDINGS: A port catheter is seen. The cardiomediastinal silhouette is normal. The lungs are clear. No evidence of pleural effusion or pneumothorax. IMPRESSION: No acute abnormalities and in particular no radiographic evidence of pneumonia. ACT 112: Negative or not required by law. Electronically signed by: Michael Gomez M.D. 04/10/2024 9:58 PM
[2024-04-10] MEDS ORDERED: LOPERAMIDE HCL 2 MG CAP PO PRN (22:31)
--- NOTE | 2024-04-11 07:19 | Electrocardiogram Report ---
Test Reason : Blood Pressure : / mmHG Vent. Rate : 087 BPM Atrial Rate : 087 BPM P-R Int : 186 ms QRS Dur : 094 ms QT Int : 338 ms P-R-T Axes : 032 001 065 degrees QTc Int : 406 ms Normal sinus rhythm possible Inferior infarct , age undetermined Abnormal ECG When compared with ECG of 07-OCT-2023 23:29, Inferior infarct is now Present Confirmed by Don Kirkland ([id number]) on 04/11/2024 7:19:25 AM Referred By: REFERRED SELF Confirmed By:Robbie Kirkland
[2024-04-11] MEDS: ENOXAPARIN 80 MG/0.8 ML SYR SQ SCH (07:44)
[2024-04-11] MEDS: NSS + 20MEQ KCL 20 MEQ/1,000 ML BAG IV ONE (07:44)
[2024-04-11] MEDS: amLODIPine BESYLATE 5 MG TAB PO SCH (07:45)
[2024-04-11] MEDS: ATORVASTATIN 40 MG TAB PO SCH (07:45)
[2024-04-11] MEDS: FOLIC ACID 1 MG TAB PO SCH (07:45)
[2024-04-11 08:09] LABS: BUN Creatinine Ratio 11.2 (10-20); Calcium 7.8 mg/dl (8.6-10.3); Creatinine Clr Calc Pharmacy 113.3 ml/min; Est GFR (African American) 110.8 ml/min; Est GFR (Non-African American) 95.6 ml/min; Potassium 3.5 mmol/L (3.5-5.1)
[2024-04-11 08:10] LABS: Basophils # (auto) 0.02 K/uL (0.00-0.20); Basophils % (auto) 0.4 %; Eosinophils # (auto) 0.09 K/uL (0.00-0.50); Eosinophils % (auto) 1.6 %; Hematocrit (blood only) 37.7 % (42.0-52.0); Hemoglobin 12.7 g/dl (14.0-18.0); Immature Granulocytes # (auto) 0.05 K/uL (0.01-0.20); Immature Granulocytes % (auto) 0.9 %; Lymphocytes # (auto) 0.98 K/uL (1.20-3.40); Lymphocytes % (auto) 17.9 %; Mean Corpuscular Hemoglobin 29.9 pg (25.0-34.0); Mean Corpuscular Hgb Conc 33.7 g/dL (32.0-36.0); Mean Corpuscular Volume 88.7 fL (80.0-100.0); Mean Platelet Volume 10.6 fL (9.4-12.4); Monocytes # (auto) 0.41 K/uL (0.11-0.59); Monocytes % (auto) 7.5 %; Neutrophils # (auto) 3.91 K/uL (1.40-6.50); Neutrophils % (auto) 71.7 %; Nucleated RBC # (auto) 0.02 K/uL (0.00-0.12); Nucleated RBC % (auto) 0.4 %; Platelet Count 264 K/uL (130-400); RDW Coefficient of Variation 16.3 % (11.5-14.5); RDW Standard Deviation 52.3 fL (36.4-46.3); Red Blood Count 4.25 M/uL (4.70-6.10); White Blood Count 5.46 K/ul (4.8-10.8)
--- NOTE | 2024-04-11 14:01 | Hospitalist Progress Note ---
Date of Service April 11, 2024 Assessment & Plan (1) Fever: Plan: Fever Immunocompromised State Diarrhea Likely due to chemotherapy Vs Viral illness No obvious source of infection currently --BioFire negative --Stool PCR, C. difficile negative --CXR:No acute abnormalities and in particular no radiographic evidence of pneumonia. --UA within normal limits --Normal lactate, procalcitonin level --Blood cultures pending Continue IV fluids, Imodium as needed Will hold off on antibiotics for now unless patient develops fever again H/O Metastatic non-small cell lung CA ongoing chemotherapy Needs follow-up with oncology on discharge Recurrent PE/DVT Was on Xarelto Currently on therapeutic Lovenox--continue HTN Currently hypotensive Hold amlodipine, lasix Monitor BP H/O Coronary vasospasm H/O Embolic CVA Continue Lipitor, Lovenox COPD No signs of exacerbation Monitor Prediabetes Last HbA1c 6.2 Anemia of chronic disease Hb at baseline DVT Px: Lovenox SQ Code Status Full code Admission and Anticipated Discharge Date Admission Date: April 10, 2024 Subjective Patient is seen and examined at bedside Continues to have ongoing diarrhea Also reports minimal cough unchanged chronic Denies any nausea, vomiting, chest pain, dyspnea, abdominal pain Discussed with patient family at bedside No other complaints Review of Systems Review of Systems: All systems reviewed & are unremarkable except as noted in Subjective Physical Exam Physical Exam: Physical Exam: Vitals signs as noted above General Appearance:Moderately built and nourished, no apparent distress Head: normocephalic, Atraumatic Eyes: normal inspection, EOMI Neck: supple, Trachea midline Respiratory/Chest: Decreased breath sounds, CTA, No accessory muscle use Cardiovascular: S1, S2, No murmur Abdomen/GI:Soft, Non tender, Bowel sounds present Extremities/Musculoskeletal:normal inspection, no edema Neurologic/Psych:AAOX3, grossly no focal neurological deficits Skin: normal color, warm Results & Data Results & Data Vital Signs (Past 12 Hours) Vital Signs Temp Pulse Resp BP Pulse Ox O2 Del Method 04/11/24 07:53 36.5 C 70 16 100/62 93 Room Air Laboratory Results Short CBC 04/10/24 04/11/24 Range/Units 17:35 07:04 WBC 5.66 5.46 (4.8-10.8) K/ul Hgb 13.7 L 12.7 L (14.0-18.0) g/dl Hct 41.1 L 37.7 L (42.0-52.0) % Plt Count 297 264 (130-400) K/uL BMP 04/10/24 04/11/24 17:35 07:04 Sodium 137 139 Potassium 3.6 3.5 Chloride 107 112 H Carbon Dioxide 23 21 BUN 14 10 Creatinine 0.89 0.89 Glucose 117 H 106 H Calcium 8.8 7.8 L Liver Function 04/10/24 Range/Units 17:35 Total Bilirubin 0.5 (0.2-1.0) mg/dl AST 16 (13-39) U/L ALT 28 (7-52) U/L Alkaline Phosphatase 69 (34-104) U/L Albumin 4.1 (3.4-5.0) gm/dl Urine 04/10/24 Range/Units 19:05 Urine Color Yellow Urine Appearance Clear (Clear) Urine pH 5.5 (4.5-7.5) Ur Specific [place] 1.012 (1.000-1.030) Urine Protein Negative (Negative) Urine Glucose (UA) Negative (Negative)
--- OUTSIDE RECORDS SUMMARY | 2024-04-11 14:44 | External Medical Summary ---
Author Name Unknown Address Unknown Organization [id number]:[facility] [place] [facility] [address] [facility] [facility] [place] [id number] Laboratory Report Ordering Provider Test Date Status JOSE STEELE 04/02/2024 08:53:22 Final Observation Date Value Abnormality Reference (Units ) Status BUN 04/02/2024 08:53:22 14 6-20 (mg/dL) Final Creatinine 04/02/2024 08:53:22 0.9 0.6-1.2 (mg/dL) Final Glomerular filtration rate/1.73 sq M.predicted [Volume Rate/Area] in Serum, Plasma or Blood by Creatinine-based formula (CKD-EPI) 04/02/2024 08:53:22 >90 >=60 (mL/min) Final eGFR is calculated based on the CKD-EPI 2020 equation Sodium 04/02/2024 08:53:22 142 135-146 (m mol/L) Final Potassium 04/02/2024 08:53:22 3.7 3.5-5.1 (m mol/L) Final Cl 04/02/2024 08:53:22 109 Above high normal 98 -107 (mmol/L) Final CO2 04/02/2024 08:53:22 24 22-32 (mmo l/L) Final Anion gap 04/02/2024 08:53:22 9 7-15 (mmol /L) Final Glucose 04/02/2024 08:53:22 99 70-120 (mg /dL) Final Albumin 04/02/2024 08:53:22 4.0 3.8-5.0 (g /dL) Final AST (Aspartate aminotransferase) 04/02/2024 08:53:22 19 10-50 (U/L) Fin al Alk Phos 04/02/2024 08:53:22 82 35-130 (U/ L) Final Bilirubin, Total 04/02/2024 08:53:22 0.3 <=1 .2 (mg/dL) Final Calcium 04/02/2024 08:53:22 9.1 8.4-10.2 ( mg/dL) Final Protein 04/02/2024 08:53:22 6.8 6.0-8.3 (g /dL) Final ALT (Alanine aminotransferase) 04/02/2024 08:53:22 33 10-50 (U/L) Marvin graham Performing Location LAB[facility]ORY [facility] [place] - [address] [facility] [id number]
--- OUTSIDE RECORDS SUMMARY | 2024-04-11 14:44 | External Medical Summary | Summary of Care ---
Author Name Unknown Organization [facility] Address [address] [place] [address] Phone [phone] Care Team Providers Care Iron Caster Name Role Phone Matthew Herrmnan PA-C Primary Care Provider [phone] Reason for Visit * Reason Comments Treatment * Evaluate & Treat - Unlimited Visits (Within 10 days (routine)) - Pending Review Specialty Diagnoses / Procedures Referred By Yuli seay Referred To Contact Hematology/Oncology Diagnoses Malignant neoplasm of unspecified part of unspecified bronchus or lung (HCC) Yonathan Tomas CRNP [address] [place] [address] Referral ID Status Reason Start Date Expiration Date Visits Requested Visits Authorized [id number] Pending Review Specialty Services Required 11/21/2023 11/20/[phone] Encounter Details Date Type Department Care Team (Latest Contact Info) Description 02/13/2024 11:30 AM EDT Hem/Onc Treatment Hematology Oncology [facility], [place] [address] [place] [address] [place], [facility] 4 Hem/Onc [address] [place] [address] Chemotherapy adverse reaction, initial encounter*; Chemotherapy induced nausea and vomiting; Encounter for antineoplastic chemotherapy; Malignant neoplasm of lower lobe, left bronchus or lung (HCC); 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) Allergies Active Allergy Reactions Criticality Noted Date Comments Carboplatin High 11/14/2021 Dyspnea, chest pain, hypoxia, sore throat, edema throat, flushing, mild hypotension Isosorbide Nitrate Other (Please comment) 07/22/2023 Headache documented as of this encounter (statuses as of 03/31/2024) Medications Medication Sig Dispensed Refills Start Date End Date Status Vitamin E 1000 UNIT Oral Capsule Take 1 Capsule by mouth in the morning. Active Ondansetron HCl 8 MG Oral TabletIndications: Chemotherapy induced nausea and vomiting Take 1 Tablet by mouth in the morning and 1 Tablet at noon and 1 Tablet before bedtime. 30 Tablet 3 3 Active Nitroglycerin 0.4 MG Sublingual Tablet Sublingual (Nitrostat) Place 1 Tablet under the tongue once as needed. As directed for chest pain Active Culturelle Probiotics Oral Tablet Chewable Take 1 Tablet by mouth in the morning. 3 Active amLODIPine Besylate 2.5 MG Oral Tablet (Norvasc) Take 1 Tablet by mouth in the morning. 90 Tablet 3 3 Active Atorvastatin Calcium 40 MG Oral Tablet (Lipitor)Indicatio ns:Acute CVA (cerebrovascular accident) (HCC) Take 1 Tablet by mouth daily. 90 Tablet 3 3 Active Folic Acid 1 MG Oral TabletIndications: 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 90 Tablet 3 3 Active Prochlorperazine Maleate 10 MG Oral Tablet (Compazine)Indicat ions:Chemotherapy induced nausea and vomiting Take 1 Tablet by mouth every 6 hours as needed for Nausea. 30 Tablet 3 3 Active ProAir HFA 108 (90 Base) MCG/ACT Inhalation Aerosol SolutionIndication s:LRTI (lower respiratory tract infection) Inhale 2 Puffs by mouth every 4 hours as needed for Wheezing or Shortness of Breath. 18 g 4 Active Furosemide 20 MG Oral Tablet (Lasix)Indications :Generalized edema due to fluid overload Take 1 Tablet by mouth in the morning. 90 Tablet 3 4 Active Fluticasone Furoate-Vilanterol 100-25 MCG/ACT Inhalation Aerosol Powder Breath Activated (BREO ellipta) Inhale 1 Puff by mouth in the morning. 60 Blister Dosing Unit 2 4 04/01/20 24 Active dexAMETHasone 4 MG Oral Tablet (Decadron)Indicati ons: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),Chemotherapy adverse reaction, initial encounter,Chemothe rapy induced nausea and vomiting,Encounter for antineoplastic chemotherapy,Malig nant neoplasm of lower lobe, left bronchus or lung (HCC) Take 2 tabs in AM with food x 3 days AFTER chemo and as directed prior to chemo. 30 Tablet 4 Active Topiramate 25 MG Oral Tablet (Topamax) Take 1 tablet nightly x 2 weeks then increase to 2 tablets nightly. 60 Tablet 5 3 03/17/20 24 Discontinued OLANZapine 5 MG Oral Tablet (zyPREXA)Indicatio ns: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),Chemotherapy adverse reaction, initial encounter,Chemothe rapy induced nausea and vomiting,Encounter for antineoplastic chemotherapy,Malig nant neoplasm of lower lobe, left bronchus or lung (HCC) Take 1 tab at bedtime starting the night of chemo x 4 nights. Repeat with each treatment. 30 Tablet 3 3 03/12/20 24 Discontinued(Ref ill) Enoxaparin Sodium 80 MG/0.8ML Injection Solution Prefilled Syringe (Lovenox)Indicatio ns:History of pulmonary embolism Inject 80 mg under the skin in the morning and 80 mg before bedtime. 48 mL 4 02/24/20 24 Discontinued(Ref ill) Hospital, Clinic, or Other Facility Administered Medication Ordered Dose Route Frequency Start Date End Date Status Albuterol Sulfate (Proventil) (5 MG/ML) 0.5% *conc* inhalation solution 2.5 mgIndications:Primary malignant neoplasm of left lower lobe of lung (HCC),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),Malignant neoplasm of lower lobe, left bronchus or lung (HCC),Acute deep vein thrombosis (DVT) of proximal vein of right lower extremity (HCC) 2.5 mg NEBULIZER PRN 01/02/2024 01/01/2025 Act elisa Albuterol Sulfate (Proventil) (2.5 MG/3ML) 0.083% inhalation solution 2.5 mgIndications:Primary malignant neoplasm of left lower lobe of lung (HCC),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),Malignant neoplasm of lower lobe, left bronchus or lung (HCC),Acute deep vein thrombosis (DVT) of proximal vein of right lower extremity (HCC) 2.5 mg NEBULIZER PRN 01/02/2024 01/01/2025 Act elisa documented as of this encounter (statuses as of 03/31/2024) Active Problems Problem Noted Date Diagnosed Date Lung disease, restrictive 02/12/2024 Malnutrition of moderate degree 12/09/2023 Acute hypoxic respiratory failure 12/05/2023 Pneumonia 12/04/2023 History of pulmonary embolism 10/03/2023 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 with embolic cerebrovascular accident (CVA) 10/03/2023 Malignant neoplasm of lower lobe, left bronchus or lung 06/13/2023 Immunodeficiency 03/12/2023 Chemotherapy adverse reaction, initial encounter 11/14/2021 Prediabetes 09/22/2021 Multiple subsegmental pulmon andrei emboli without acute cor pulmonale 05/23/2021 Dyspnea on exertion 05/23/2021 Encounter for antineoplastic chemotherapy 2020 Non-small cell lung cancer metastatic to bone Chemotherapy induced nausea and vomiting 021 Primary malignant neoplasm of left lower lobe of lung 04/20/2021 Cancer Staging:Clinical stage from 04/20/2021:Stage IVB(cT4, cN3, cM1c) - Signed by Melissa Beal MD on 06/08/[address] scan of lung 01/10/2021 Acute deep vein thrombosis ( DVT) of proximal vein of right lower extremity 01/10/2021 Generalized osteoarthritis of multiple sites documented as of this encounter (statuses as of 03/31/2024) Resolved Problems Problem Noted Date Diagnosed Date Resolved Date MSSA bacteremia 08/01/2021 08/07/2021 Sepsis 08/01/2021 08/07/2021 COPD, group B, by GOLD 2017 classification 05/08/2021 06/21/2021 Overview: Per COPD GOLD Classification Obstructive lung disease 04/10/2021 Overview: Per COPD GOLD Classification documented as of this encounter (statuses as of 03/31/2024) Immunizations Name Administration Dates Next Due COVID-19 mRNA, LNP-s, No Pre serve, 2-Dose Series (Pfizer) 09/23/2021 Pneumococcal Conjugate Vacci ne, 20-valent ([id number]) 12/12/2023(Deferred: Patient Refused - Renee Duarte MD) Seasonal Influenza, PF, 6 M & above, IM , (FluLaval or Fluzone) 12/12/2023(Deferred: Patient Refused - Renee Duarte MD) documented as of this encounter Social History Tobacco Use Types Packs/Day Years Used Date Smoking Tobacco: Never Smokeless Tobacco: Never Alcohol Use Standard Drinks/Week Comments Not Currently 0 (1 standard drink = 0.6 oz pur e alcohol) occasionally PHQ-2 Answer Date Recorded PHQ Adult Total Score 0 05/30/2021 Hunger Vital Sign Answer Date Recorded Worried About Running Out of Food in the Last Ye ar Never true 03/15/2020 Ran Out of Food in the Last Year Never true 03/15/2020 Sex and Gender Information Value Date Recorded Sex Assigned at Male 02/04/2019 7:46 AM EDT Gender Identity Male 02/04/2019 7:46 AM EDT Sexual Orientation Straight 02/04/2019 7: 46 AM EDT Job Start Date Occupation Industry Not on file Not on file Not on file documented as of this encounter Functional Status Functional Status Response Date of Assess ment Are you deaf or do you have serious difficulty h earing? No 08/01/2021 Are you blind or do you have serious difficulty seeing, even when wearing glasses? No 08/01/2021 Do you have serious difficul ty walking or climbing stairs? (5 years old or older) No 08/01/2021 Do you have difficulty dress ing or bathing? (5 years old or older) No 08/01/2021 Because of a physical, menta l, or emotional condition, do you have difficulty doing errands alone such as visiting a doctor s office or shopping? (15 years old or older) No 08/01/20 21 Cognitive Status Response Date of Assessm ent Because of a physical, menta l, or emotional condition, do you have serious difficulty concentrating, remembering, or making decisions? (5 years old or older) No 08/01/2021 documented as of this encounter Nursing Notes * Wilfred Abdullahi RN - 02/13/2024 3:35 PM EDT Functional status at today's visit: Fully active, able to carry on all pre-disease performance without restriction The drug name, dose, infusion volume, rate and route of administration, expiration date and time, appearance and physical integrity of the drug and rate set on the pump and sequencing of drug administration (as applicable) were verified by me and second sign-in RN. Patient was assessed for symptoms or adverse side effects during treatment. Safety and Risk for Injury Patient will remain free from injury. Ensure appropriate safety devices are available. Provide and maintain safe environment. Goals: as above Possible barriers to meeting goals: none Stability of the patient: Moderately stable - low risk of patient condition declining or worsening Summary regarding today's goals: Met: Pt remains ambulatory Pt. In chair 6 * Ila Cobb RN - 02/13/2024 11:25 AM EDT Pre-chemo checklist Chemo/Immune agents Taxol Consent for chemotherapy drug treatment complete, dated, and signed? Yes - 09-23-23 Is this a research protocol? no Treatment lab parameters met? yes Has treatment weight changed > than 10% No Treatment preauthorized? Yes Return appointment scheduled Yes Orders released Yes, per provider Ok to proceed with treatment per Dr. Cates documented in this encounter Plan of Treatment Upcoming Encounters Date Type Department Care Team (Late st Contact Info) Description 04/01/2024 1:00 PM EDT Rehab Services Speech Therapy, [place] [id number] [place] [address] Lisa Hairston, HOT ROLL INSPECTOR [address] [place] [id number] 04/02/2024 8:15 AM EDT Nurse Only Hematology Oncology [address] [place] [address] [place], Nurse Lab Hem/Onc [address] [place] [address] 04/02/2024 9:00 AM EDT Office Visit Hematology Oncology [facility], [place] [address] [place] [address] Diego Pena CRNP [address] [place] [address] 04/02/2024 10:00 AM EDT Hem/Onc Treatment Hematology Oncology [facility], [place] [address] [place], [place] [phone] [place], Chair 16 Hem/Onc [address] [place] [id number] 04/08/2024 9:00 AM EDT Rehab Services Speech Therapy, [place] [address] [place] [address] Reginaldo Mendoza, HOT ROLL INSPECTOR [address] [place] [address] 04/14/2024 10:30 AM EDT Laboratory [facility] [id number] [address] [address] 04/15/2024 6:15 AM EDT Anticoagulation Pharmacy Call Center [facility] [address] [facility] [place] [address] C[facility], [facility] [address] [facility] [place] [address] 04/23/2024 7:15 AM EDT Nurse Only Hematology Oncology [facility], [place] [address] [place] [address] [place], Nurse Lab Hem/Onc [address] [place] [id number] 04/23/2024 8:00 AM EDT Office Visit Hematology Oncology [facility], [place] [address] [place] [address] Velia Segundo PA-C [address] [place] [address] 04/23/2024 9:00 AM EDT Hem/Onc Treatment Hematology Oncology [facility], [place] [address] [place], [place] [id number] [place], Chair 11 Hem/Onc [facility] [address] [place], [place] [id number] 05/06/2024 9:20 AM EDT Office Visit Neurology [facility] [address] [place] [address] Kathy Pryor PA-C [address] [place] [address] 08/31/2024 8:40 AM EST Office Visit Pulmonary Medicine, [facility] [address] [facility] [place] [address] Wyatt Gallegos MD [address] [facility] [id number] Scheduled Orders Name Type Priority Associated Diagnoses Orde r Schedule GLUCOSE Lab STAT Chemotherapy adverse reaction, initial encounter Chemotherapy induced nausea and vomiting Encounter for antineoplastic chemotherapy Malignant neoplasm of lower lobe, left bronchus or lung (HCC) 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) Expected: 02/13/2024 (Approximate), Expires: 08/11/2024 Health Maintenance Due Date Last Done Comments Pneumococcal Vaccine: Pediatrics (0 to 5 Years) and At-Risk Patients (6 to 64 Years) (1 of 2 - PCV) 02/18/1974 DTaP,Tdap,and Td Vaccines (1 - Tdap) 02/18/1987 Hepatitis B (1 of 3 - 19+ 3-dose series) 02/18/1987 Zoster Vaccines (1 of 2) 02/18/1987 Cologuard 02/18/2013 Fecal Occult Blood Test 02/18/2013 Sigmoidoscopy 02/18/2013 COVID-19 Vaccine (3 - Pfizer risk series) 10/21/2021 09/23/2021, 09/02/2021 Depression Screening 05/30/2022 05/30/2021 Influenza Vaccine (FLU shot) (Season Ended) 2024 HbA1c 11/06/2024 11/06/2023, 04/28, 09/19/2021, Additional history exists Colonoscopy 08/13/2029 08/13/2019, 08/13/2019 Colorectal Cancer Screening 08/13/2029 GARDASIL-HPV IMMUNIZATION SERIES Aged Out No longer eligible based on patient's age to complete this topic MENINGOCOCCAL (MENACTRA/MENVEO) Aged Out No longer eligible based on patient's age to complete this topic documented as of this encounter Medical Devices Implanted Type Area Armhole Presser Device Identifier Shelf Expiration Date Model / Serial / Lot Power Port 8fr Sngl Lumen Plas - [id number] Implanted:Qty: 1 on 04/24/2021 at [facility] CR BARD : PERIPHERAL VASCULAR [id number] 02/24/2022 [id number] / / [id number] Port Implant W/8f Poly Cath - [id number] Implanted:Qty: 1 on 10/15/2023 at [facility] CR BARD : PERIPHERAL VASCULAR [id number] 03/27/2025 [id number] / / [id number] documented as of this encounter Results * (ABNORMAL) COMPREHENSIVE METABOLIC PANEL (03/12/2024 7:49 AM EDT) Pathologist [facility] BUN 12 6 - 20 mg/dL 03/12/2024 8:29 AM EDT LAB[facility]ATORY [facility] Creatinine 0.9 0.6 - 1.2 mg/dL 03/12/2024 8:29 AM EDT [facility] Estimated Glomerular Filtration Rate >90 >=60 mL/min 03/12/2024 8:29 AM EDT [facility] Comment:eGFR is calculated b ased on the CKD-EPI 2020 equation Sodium 145 135 - 146 mmol/L 03/12/2024 8:29 AM EDT [facility] Potassium 3.8 3.5 - 5.1 mmol/L 03/12/2024 8:29 AM EDT [facility] Chloride 109(H) 98 - 107 mmol/L 03/12/2024 8:29 AM EDT [facility] CO2 25 22 - 32 mmol/L 03/12/2024 8:29 AM EDT [facility] Anion Gap 11 7 - 15 mmol/L 03/12/2024 8:29 AM EDT [facility] Glucose 89 70 - 120 mg/dL 03/12/2024 8:29 AM EDT [facility] Albumin 4.3 3.8 - 5.0 g/dL 03/12/2024 8:29 AM EDT [facility] AST 20 10 - 50 U/L 03/12/2024 8:29 AM EDT [facility] Alkaline Phosphatase 90 35 - 130 U/L 03/12/2024 8:29 AM EDT LAB[facility] Bilirubin, Total 0.4 <=1.2 mg/dL 03/12/2024 8:29 AM EDT [facility] Calcium 9.2 8.4 - 10.2 mg/dL 03/12/2024 8:29 AM EDT LAB[facility] Protein 6.8 6.0 - 8.3 g/dL 03/12/2024 8:29 AM EDT LAB[facility]ATORY [facility] ALT 33 10 - 50 U/L 03/12/2024 8:29 AM EDT LABORATORY C Blood Blood sample taken from central line / Unknown Central Line / Unknown 03/12/2024 7:49 AM EDT 03/12/2024 8:00 AM EDT Kerri Foote MD LAB BLOOD ORDERAB LES LABORATORY [facility] [address] [place] [address] * TSH WITH FREE T4 IF INDICATED (03/12/2024 7:49 AM EDT) TSH 2.69 0.27 - 4.20 uIU/mL 03/12/2024 10:03 AM EDT LABORATORY [facility] Blood Blood sample taken from central line / Unknown Central Line / Unknown 03/12/2024 7:49 AM EDT 03/12/2024 8:00 AM EDT Kerri Foote MD LAB BLOOD ORDERAB LES LABORATORY [facility] [address] [place] [address] documented in this encounter Visit Diagnoses Diagnosis Chemotherapy adverse reaction, initial encounter- Primary Chemotherapy induced nausea and vomiting Nausea with vomiting Encounter for antineoplastic chemotherapy Malignant neoplasm of lower lobe, left bronchus or lung (HCC) 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) documented in this encounter Administered Medications Inactive Administered Medications - up to 3 most recent administrations Medication Order MAR Action Action Date Dose Rate Site diphenhydrAMINE (Benadryl) cap 50 mg 50 mg, Oral, ONCE, On Ofe 02/13/24 at 1230, For 1 dose Given 02/13/2024 11:56 AM EDT 50 mg Famotidine (Pepcid) tab 20 mg 20 mg, Oral, ONCE, On Ofe 02/13/24 at 1230, For 1 dose Given 02/13/2024 11:56 AM EDT 20 mg hEParin 100 UNIT/ML Lock Flush inj 500 Units 500 Units (5 mL), IV Lock, PRN Other, IV Flush, Starting on Ofe 02/13/24 at 1129, Until Ofe 02/13/24 at 1944, For 24 hours, Do not flush if lock, PICC, or central line not in place; IV infusing or unable to flush. Given 02/13/2024 3:40 PM EDT 500 Units NSS infusion Intravenous, at 50 mL/hr, PRN, Starting on Ofe 02/13/24 at 1230, Until Ofe 02/13/24 at 1944, Maintenance line Start Infusion 02/13/2024 11:56 AM EDT 50 mL/hr ondansetron (Zofran) tab 8 mg 8 mg, Oral, ONCE, On Ofe 02/13/24 at 1200, For 1 dose Given 02/13/2024 11:56 AM EDT 8 mg PACLitaxel (Taxol) 387 mg in NSS 500 mL infusion 387 mg (rounded from 386.75 mg = 175 mg/m2 2.21 m2 Treatment Plan BSA from Recorded weight), IV Piggyback, at 166.67 mL/hr Administer over 180 Minutes, Administer through 0.22 micron low protein binding filter!, ONCE, 1 dose, On Ofe 02/13/24 at 1330 Start Infusion 02/13/2024 12:32 PM EDT 387 mg 166.67 mL/hr sodium chloride 0.9 % flush central line 10 mL 10 mL, IV Push, PRN Other, IV Flush, Starting on Ofe 02/13/24 at 1129, Until Ofe 02/13/24 at 1944, For 24 hours, Do not flush if lock, PICC, or central line not in place; IV infusing or unable to flush. Given 02/13/2024 3:39 PM EDT 10 mL Zoledronic Acid (Zometa) 4 mg in 100 mL PREMIX ivpb 4 mg, IV Piggyback, ONCE, 1 dose, On Ofe 02/13/24 at 1215, Administer over 15 Minutes Start Infusion 02/13/2024 12:01 PM EDT 4 mg 400 mL/hr documented in this encounter Advance Directives * Full Code (Latest Code Status on File) Date Activated Date Inactivated Comments 12/04/2023 8:24 PM 12/12/2023 4:41 PM This order re flects the patients wishes and were consensually agreed upon. Question Answer Comments Discussion of Advance Directives occurred with: Patient * Full Code Date Activated Date Inactivated Comments 08/01/2021 12:18 AM 08/08/2021 12:10 PM This orde r reflects the patients wishes and were consensually agreed upon. Question Answer Comments Discussion of Advance Directives occurred with: Patient Does the patient have a Living Will? No Does the patient have Health Care Power of Attor trevon? No * Full Code Date Activated Date Inactivated Comments 05/23/2021 12:21 PM 05/24/2021 9:38 PM This order reflects the patients wishes and were consensually agreed upon. Question Answer Comments Discussion of Advance Directives occurred with: Patient Care Teams Iron Caster Relationship Specialty Start Date End Date Matthew Herrmann PA-C [address] [place], [place] [address] [id number] PCP - General Physician Meter Installer 03/22/21 documented as of this encounter
--- OUTSIDE RECORDS SUMMARY | 2024-04-11 14:44 | External Medical Summary ---
Author Name Unknown Address Unknown Organization [address] [address] [address] Laboratory Report Ordering Provider Test Date Status JOSE STEELE 04/02/2024 08:53:22 Final Observation Date Value Abnormality Reference (Units ) Status SYNC LEUKOCYTES IN BLOOD BY AUTOMATED COUNT 04/02/2024 08:53:22 5.07 4.00-10.80 (K/uL) Final Segs 04/02/2024 08:53:22 57.7 40.0-75.0 (%) Final Lymphs % 04/02/2024 08:53:22 29.0 18.0-42.0 (%) Final Monos 04/02/2024 08:53:22 9.1 1.0-11.0 (%) Final Eosinophils 04/02/2024 08:53:22 2.6 0.0-6.0 (%) Final Basos 04/02/2024 08:53:22 1.0 0.0-2.0 (%) Final Immature Granulocyte, Percent 04/02/2024 08:53:22 0.6 0.0-2.0 (%) Final Absolute Segs 04/02/2024 08:53:22 2.93 1.80-7.70 (K/uL) Final Lymphs, absolute 04/02/2024 08:53:22 1.47 1.00-4.80 (K/ul) Final Monos, Abs 04/02/2024 08:53:22 0.46 0.00-1.10 (K/uL) Final Eos, Abs 04/02/2024 08:53:22 0.13 0.00-0.70 (K/uL) Final Basos, Abs 04/02/2024 08:53:22 0.05 0.00-0.20 (K/uL) Final Immature Granulocytes, Number 04/02/2024 08:53:22 0.03 0.00-0.20 (K/uL) Final Performing Location [facility] - [address] [place] [address]
--- OUTSIDE RECORDS SUMMARY | 2024-04-11 14:44 | External Medical Summary | Summary of Care ---
Author Name Unknown Organization [facility] Address [address] [place] [address] Phone [phone] Care Team Providers Care Federal Appellate Clerk Name Role Phone Matthew Herrmann PA-C Primary Care Provider [phone] Reason for Visit * Reason Comments Treatment * Evaluate & Treat - Unlimited Visits (Within 10 days (routine)) - Pending Review Specialty Diagnoses / Procedures Referred By Yuli seay Referred To Contact Hematology/Oncology Diagnoses Malignant neoplasm of unspecified part of unspecified bronchus or lung (HCC) Yonathan Tomas CRNP [address] [place] [address] Referral ID Status Reason Start Date Expiration Date Visits Requested Visits Authorized [id number] Pending Review Specialty Services Required 11/21/2023 11/20/2024 [id number] Encounter Details Date Type Department Care Team (Latest Contact Info) Description 02/13/2024 11:30 AM EDT Hem/Onc Treatment Hematology Oncology [facility], [place] [address] [place] [address] [place], [facility] 4 Hem/Onc [address] [place] [address] Chemotherapy adverse reaction, initial encounter*; Chemotherapy induced [...] (Pfizer) 09/23/2021 Pneumococcal Conjugate Vacci ne, 20-valent ([id number]) 12/12/2023(Deferred: Patient Refused - Renee Duarte MD) [...] 1:00 PM EDT Rehab Services Speech Therapy, [place] [address] [place] [address] Lisa Hairston, PHARMACY INTAKE COORDINATOR [address] [place] [address] 04/02/2024 8:15 AM EDT Nurse Only Hematology Oncology [address] [place] [address] [place], Nurse Lab Hem/Onc [address] [place] [address] 04/02/2024 9:00 AM EDT Office Visit Hematology Oncology [facility], [place] [address] [place] [address] Diego Pena CRNP [address] [place] [address] 04/02/2024 10:00 AM EDT Hem/Onc Treatment Hematology Oncology [facility], [place] [address] [place], [place] [phone] [place], Chair 16 Hem/Onc [address] [place] [id number] 04/08/2024 9:00 AM EDT Rehab Services Speech Therapy, [place] [address] [place] [address] Reginaldo Mendoza, PHARMACY INTAKE COORDINATOR [address] [place] [address] 04/14/2024 10:30 AM EDT Laboratory [facility] [phone] [address] [address] 04/15/2024 6:15 AM EDT Anticoagulation Pharmacy Call Center WB 58[address]60 [facility] [place] [address] [place], [facility] 58 60 [facility] [place] [address] 04/23/2024 7:15 AM EDT Nurse Only Hematology Oncology [facility], [place] [address] [place] [address] [place], Nurse Lab Hem/Onc [address] [place] [address] 04/23/2024 8:00 AM EDT Office Visit Hematology Oncology [facility], [place] [address] [place] [address] Velia Segundo PA-C [address] [place] [address] 04/23/2024 9:00 AM EDT Hem/Onc Treatment Hematology Oncology [facility], [place] [address] [place], [place] [phone] [place], Chair 11 Hem/Onc [facility] [address] [place], [place] [phone] 05/06/2024 9:20 AM EDT Office Visit Neurology [facility] [address] [facility] [place] [address] Kathy Pryor PA-C [address] [facility] [place] [address] 08/31/2024 8:40 AM EST Office Visit Pulmonary Medicine, [facility] [address] [facility] [place] [address] Wyatt Gallegos [facility] [address] [facility] [phone] Scheduled Orders Name Type Priority Associated Diagnoses [...] this encounter Medical Devices Implanted Type Area Primer Assembler Device Identifier Shelf Expiration Date Model / Serial / Lot Power Port 8fr Sngl Lumen Plas - [id number] Implanted:Qty: 1 on 04/24/2021 at [facility] CR BARD : PERIPHERAL VASCULAR [id number] 02/24/2022 [id number] / / [id number] Port Implant W/8f Poly Cath - [id number] Implanted:Qty: 1 on 10/15/2023 at [facility] CR BARD : PERIPHERAL VASCULAR [id number] 03/27/2025 [id number] / / [id number] documented as of this encounter Results * (ABNORMAL) COMPREHENSIVE METABOLIC PANEL (03/12/2024 7:49 AM EDT) Pathologist [facility] BUN 12 6 - 20 mg/dL 03/12/2024 [...] Foote MD LAB BLOOD ORDERAB LES LABORATORY [facility] [address] [place] [address] * TSH WITH FREE T4 IF INDICATED (03/12/2024 7:49 AM EDT) TSH 2.69 0.27 - 4.20 uIU/mL 03/12/2024 10:03 AM EDT LABORATORY [facility] Blood Blood sample taken from central line / Unknown Central Line / Unknown 03/12/2024 7:49 AM EDT 03/12/2024 8:00 AM EDT Kerri Foote MD LAB BLOOD ORDERAB LES LABORATORY [facility] [address] [place] [address] documented in this encounter Visit Diagnoses Diagnosis [...] Advance Directives occurred with: Patient Care Teams Federal Appellate Clerk Relationship Specialty Start Date End Date Matthew Herrmann PA-C [address] [place], [place] [address] [address] PCP - General Physician Education Courses Sales Representative 03/22/21 documented as of this encounter
--- OUTSIDE RECORDS SUMMARY | 2024-04-11 14:44 | External Medical Summary | Summary of Care ---
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) Matthew Herrmann PA-C [address] [place] [id number] Referral ID Status Reason Start Date Expiration Date Visits Requested Visits Authorized [id number] Authorized Specialty Services Required 06/11/2023 06/11/[phone] Encounter Details Date Type Department Care Team (Late st Contact Info) Description 04/02/2024 8:15 AM EDT Nurse Only Hematology Oncology [facility] [address] [place], [place] [phone] [place], Nurse Lab Hem/Onc [address] [place], [place] [phone] Arrived Allergies Active Allergy Reactions Criticality Noted Date Comments Carboplatin High 11/14/2021 Dyspnea, chest pain, hypoxia, sore throat, edema throat, flushing, mild hypotension Isosorbide Nitrate Other (Please comment) 07/22/2023 Headache documented as of this encounter (statuses as of 04/02/2024) Medications Medication Sig Dispensed Refills Start Date End Date Status Vitamin E 1000 UNIT Oral Capsule Take 1 Capsule by mouth in the morning. Active Ondansetron HCl 8 MG Oral TabletIndications:Chem otherapy induced nausea and vomiting Take 1 Tablet by mouth in the morning and 1 Tablet at noon and 1 Tablet before bedtime. 30 Tablet 3 05/09/2023 Active Nitroglycerin 0.4 MG Sublingual Tablet Sublingual (Nitrostat) Place 1 Tablet under the tongue once as needed. As directed for chest pain Active Culturelle Probiotics Oral Tablet Chewable Take 1 Tablet by mouth in the morning. 05/12/2023 Active amLODIPine Besylate 2.5 MG Oral Tablet (Norvasc) Take 1 Tablet by mouth in the morning. 90 Tablet 3 06/03/2023 Active Atorvastatin Calcium 40 MG Oral Tablet (Lipitor)Indications:A cute CVA (cerebrovascular accident) (HCC) Take 1 Tablet by mouth daily. 90 Tablet 3 08/28/2023 Active Folic Acid 1 MG Oral TabletIndications:Non- small cell lung cancer metastatic to bone (HCC) Take 1 Tablet by mouth in the morning. 90 Tablet 3 09/03/2023 Active Prochlorperazine Maleate 10 MG Oral Tablet (Compazine)Indications :Chemotherapy induced nausea and vomiting Take 1 Tablet by mouth every 6 hours as needed for Nausea. 30 Tablet 3 09/22/2023 Active ProAir HFA 108 (90 Base) MCG/ACT Inhalation Aerosol SolutionIndications:LR TI (lower respiratory tract infection) Inhale 2 Puffs by mouth every 4 hours as needed for Wheezing or Shortness of Breath. 18 g 10/29/2023 Active Furosemide 20 MG Oral Tablet (Lasix)Indications:Gen eralized edema due to fluid overload Take 1 Tablet by mouth in the morning. 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 30 Tablet 01/23/2024 Active OLANZapine 5 MG Oral Tablet (zyPREXA)Indications:H istory of pulmonary embolism,Chemotherapy induced nausea and vomiting Take 1 tab at bedtime starting the night of chemo x 4 nights. Repeat with each treatment. 30 Tablet 3 03/12/2024 Active Enoxaparin Sodium 80 MG/0.8ML Injection Solution Prefilled Syringe (Lovenox)Indications:H istory of pulmonary embolism Inject 80 mg under the skin in the morning and 80 mg before bedtime. 48 mL 10 03/12/2024 Active Topiramate 25 MG Oral Tablet (topAMAX) TAKE 1 TABLET NIGHTLY X 2 WEEKS THEN INCREASE TO 2 TABLETS NIGHTLY. 60 Tablet 1 03/17/2024 Active Hospital, Clinic, or Other Facility Administered Medication [...] as of this encounter (statuses as of 04/02/2024) Active Problems Problem Noted Date Diagnosed Date Cerebral infarction 2024 Lung disease, restrictive 02/12/2024 Malnutrition of moderate [...] as of this encounter (statuses as of 04/02/2024) Resolved Problems Problem Noted Date Diagnosed Date Resolved Date MSSA bacteremia 08/01/2021 08/07/2021 Sepsis 08/01/2021 08/07/2021 COPD, group B, by GOLD 2017 classification 05/08/2021 06/21/2021 Overview: Per COPD GOLD Classification Obstructive lung disease 04/10/2021 Overview: Per COPD GOLD Classification documented as of this encounter (statuses as of 04/02/2024) Immunizations Name Administration Dates Next Due COVID-19 mRNA, LNP-s, No Pre serve, 2-Dose Series ([employer]) 09/23/2021 Pneumococcal Conjugate Vacci ne, 20-valent ([id number]) 12/12/2023(Deferred: Patient Refused - Renee Duarte MD) [...] No 08/01/2021 documented as of this encounter Plan of Treatment Upcoming Encounters Date Type Department Care Team (Late st Contact Info) Description 04/02/2024 10:00 AM EDT Hem/Onc Treatment Hematology Oncology [facility], [address] [address] [place], Chair 16 Hem/Onc [facility] [place] [address] Arrived 04/08/2024 9:00 AM EDT Rehab Services Speech Therapy, [address] [address] Reginaldo Mendoza, FAMILY MEDIATOR [address] [place] [address] 04/14/2024 10:30 AM EDT Laboratory Laboratory [facility] [phone] [place], Lab Lock [address] [place] [address] 04/15/2024 6:15 AM EDT Anticoagulation Central[facility] Services, [place] Leal [address] [place] [address] [place] [address] [facility], [address] [place] [address] 04/23/2024 7:15 AM EDT Nurse Only Hematology Oncology [place] [address] [place] [address] [place], Nurse Lab Hem/Onc [address] [place] [address] 04/23/2024 8:00 AM EDT Office Visit Hematology Oncology [facility] [address] [place] [phone] Velia Segundo PA-C [address] [place] [address] 04/23/2024 9:00 AM EDT Hem/Onc Treatment Hematology Oncology [place] [address] [place] [address] [place], Chair 11 Hem/Onc [facility] [place] [address] 05/06/2024 9:20 AM EDT Office Visit Neurology [facility] [address] [place] [address] Kathy Pryor PA-C [address] [place] [address] 08/31/2024 8:40 AM EST Office Visit Pulmonary Medicine, [facility] [address] [place] [address] Wyatt Gallgeos MD [address] [place] [phone] Pending Results Name Type Priority Associated Diagnoses Date /Time COMPREHENSIVE METABOLIC PANEL Lab STAT Chemotherapy adverse reaction, initial encounter Chemotherapy induced nausea and vomiting Encounter for antineoplastic chemotherapy Malignant neoplasm of lower lobe, left bronchus or lung (HCC) 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) 04/02/2024 8:53 AM EDT Health Maintenance Due Date Last Done Comments [...] this encounter Medical Devices Implanted Type Area Phlebotomist Supervisor/Instructor Device Identifier Shelf Expiration Date Model / Serial / Lot Power Port 8fr Sngl Lumen Plas - [id number] Implanted:Qty: 1 on 04/24/2021 at [facility] CR BARD : PERIPHERAL VASCULAR [id number] 02/24/2022 [id number] / / [id number] Port Implant W/8f Poly Cath - [id number] Implanted:Qty: 1 on 10/15/2023 at [facility] CR BARD : PERIPHERAL VASCULAR [id number] 03/27/2025 [id number] / / [id number] documented as of this encounter Procedures Procedure Name Priority Date/Time Associated Diagnosis Comments DIFFERENTIAL, AUTOMATED STAT 04/02/2024 8:53 AM EDT Chemotherapy adverse reaction, initial encounter Chemotherapy induced nausea and vomiting Encounter for antineoplastic chemotherapy Malignant neoplasm of lower lobe, left bronchus or lung (HCC) 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) CBC STAT 04/02/2024 8:53 AM EDT Chemotherapy adverse reaction, initial encounter Chemotherapy induced nausea and vomiting Encounter for antineoplastic chemotherapy Malignant neoplasm of lower lobe, left bronchus or lung (HCC) 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) CBC STAT 04/02/2024 8:53 AM EDT Chemotherapy adverse reaction, initial encounter Chemotherapy induced nausea and vomiting Encounter for antineoplastic chemotherapy Malignant neoplasm of lower lobe, left bronchus or lung (HCC) 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) documented in this encounter Results * DIFFERENTIAL, AUTOMATED (04/02/2024 8:53 AM EDT) WBC 5.07 4.00 - 10.80 K/uL 04/02/2024 9:03 AM EDT [facility] Neutrophils % 57.7 40.0 - 75.0 % 04/02/2024 9:03 AM EDT [facility] Lymphocytes % 29.0 18.0 - 42.0 % 04/02/2024 9:[address] [facility] Monocytes % 9.1 1.0 - 11.0 % 04/02/2024 9:03 AM EDT [facility] Eosinophils % 2.6 0.0 - 6.0 % 04/02/2024 9:[address] [facility] Basophils % 1.0 0.0 - 2.0 % 04/02/2024 9:03 AM EDT LABORATORY [facility] Immature Granulocytes % 0.6 0.0 - 2.0 % 04/02/2024 9:03 AM EDT LABORATORY [facility] Absolute Neutrophils 2.93 1.80 - 7.70 K/uL 04/02/2024 9:03 AM EDT LABORATORY [facility] Absolute Lymphocytes 1.47 1.00 - 4.80 K/ul 04/02/2024 9:03 AM EDT LABORATORY [facility] Absolute Monocytes 0.46 0.00 - 1.10 K/uL 04/02/2024 9:03 AM EDT LABORATORY [facility] Absolute Eosinophils 0.13 0.00 - 0.70 K/uL 04/02/2024 9:03 AM EDT LABORATORY [facility] Absolute Basophils 0.05 0.00 - 0.20 K/uL 04/02/2024 9:03 AM EDT LABORATORY [facility] Absolute Immature Granulocytes 0.03 0.00 - 0.20 K/uL 04/02/2024 9:03 AM EDT LABORATORY [facility] Blood Blood sample taken from central line / Unknown Central Line / Unknown 04/02/2024 8:53 AM EDT 04/02/2024 9:00 AM EDT Kerri Foote MD LAB BLOOD ORDERAB LES LABORATORY [facility] [address] [place] [address] * (ABNORMAL) CBC (04/02/2024 8:53 AM EDT) [facility] WBC 5.07 4.00 - 10.80 K/uL 04/02/2024 9:03 AM EDT LABORATORY [facility] RBC 4.54 4.50 - 5.25 M/uL 04/02/2024 9:03 AM EDT LABORATORY [facility] HGB 13.7(L) 14.0 - 16.8 g/dL 04/02/2024 9:03 AM EDT LABORATORY [facility] HCT 40.8 40.0 - 48.4 % 04/02/2024 9:03 AM EDT LABORATORY [facility] MCV 89.9 82.0 - 99.5 fL 04/02/2024 9:03 AM EDT LABORATORY [facility] MCH 30.2 27.0 - 34.0 pg 04/02/2024 9:03 AM EDT LABORATORY [facility] MCHC 33.6 32.0 - 36.0 g/dL 04/02/2024 9:03 AM EDT LABORATORY [facility] RDW 15.9 11.5 - 15.5 % 04/02/2024 9:03 AM EDT LABORATORY [facility] PLT 271 140 - 400 K/uL 04/02/2024 9:03 AM EDT LABORATORY [facility] MPV 10.5 6.6 - 11.1 fL 04/02/2024 9:03 AM EDT LABORATORY [facility] nRBCs 0 <=0 /100 WBCs 04/02/2024 9:03 AM EDT LABORATORY [facility] Blood Blood sample taken from central line / Unknown Central Line / Unknown 04/02/2024 8:53 AM EDT 04/02/2024 9:00 AM EDT Kerri Foote MD LAB BLOOD ORDERAB LES LABORATORY [facility] [address] [place], [place] [id number] documented in this encounter Visit Diagnoses Diagnosis Chemotherapy adverse reaction, initial encounter- Primary Chemotherapy induced nausea and vomiting Nausea with vomiting Encounter for antineoplastic chemotherapy Malignant neoplasm of lower lobe, left bronchus or lung (HCC) 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) documented in this encounter Advance Directives * [...] Advance Directives occurred with: Patient Care Teams Tower Operator Relationship Specialty Start Date End Date Matthew Herrmann PA-C [address] [place] [address] [phone] PCP - General Physician Special Education Director 03/22/21 documented as of this encounter
--- OUTSIDE RECORDS SUMMARY | 2024-04-11 14:44 | External Medical Summary ---
Author Name Unknown Address Unknown Organization K01:[facility] - [address] [facility] [address] Laboratory Report Ordering Provider Test Date Status JOSE STEELE 04/02/2024 08:53:22 Final Observation Date Value Abnormality Reference (Units ) Status WBC, Total 04/02/2024 08:53:22 5.07 4.00-10.80 (K/uL) Final RBC 04/02/2024 08:53:22 4.54 4.50-5.25 (M/uL) Final Hemoglobin 04/02/2024 08:53:22 13.7 Below low normal 14.0-16.8 (g/dL) Final HCT 04/02/2024 08:53:22 40.8 40.0-48.4 (%) Final MCV 04/02/2024 08:53:22 89.9 82.0-99.5 (fL) Final MCH 04/02/2024 08:53:22 30.2 27.0-34.0 (pg) Final MCHC 04/02/2024 08:53:22 33.6 32.0-36.0 (g/dL) Final RDW 04/02/2024 08:53:22 15.9 11.5-15.5 (%) Final Platelets 04/02/2024 08:53:22 271 140-400 (K/uL) Final MPV 04/02/2024 08:53:22 10.5 6.6-11.1 (fL) Final Nucleated erythrocytes/100 leukocytes [Ratio] in Blood by Automated count 04/02/2024 08:53:22 0 <=0 (/100 WBCs) Final Performing Location [facility] - [address] [place] [address] [address]
--- OUTSIDE RECORDS SUMMARY | 2024-04-11 14:44 | External Medical Summary | Summary of Care ---
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 Active Ondansetron HCl 8 MG Oral TabletIndications:C hemotherapy induced nausea and vomiting Take 1 Tablet [...] Active Atorvastatin Calcium 40 MG Oral Tablet (Lipitor)Indication s:Acute CVA (cerebrovascular accident) (HCC) Take 1 Tablet by mouth daily. 90 Tablet 3 08/28/2023 Active Folic Acid 1 MG Oral TabletIndications:N on-small cell lung cancer metastatic to bone (HCC) Take 1 Tablet by mouth in the morning. 90 Tablet 3 09/03/2023 Active Prochlorperazine Maleate 10 MG Oral Tablet (Compazine)Indicati ons:Chemotherapy induced nausea and vomiting Take 1 Tablet by mouth every 6 hours as needed for Nausea. 30 Tablet 3 09/22/2023 Active ProAir HFA 108 (90 Base) MCG/ACT Inhalation Aerosol SolutionIndications :LRTI (lower respiratory tract infection) Inhale 2 Puffs by mouth every 4 hours as needed for Wheezing or Shortness of Breath. 18 g 10/29/2023 Active Furosemide 20 MG Oral Tablet (Lasix)Indications: Generalized edema due to fluid overload Take 1 Tablet by mouth in the morning. 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 30 Tablet 01/23/2024 Active OLANZapine 5 MG Oral Tablet (zyPREXA)Indication s:History of pulmonary embolism,Chemothera py induced nausea and vomiting Take 1 tab at bedtime starting the night of chemo x 4 nights. Repeat with each treatment. 30 Tablet 3 03/12/2024 Active Enoxaparin Sodium 80 MG/0.8ML Injection Solution Prefilled Syringe (Lovenox)Indication s:History of pulmonary embolism Inject 80 mg under the skin in the morning and 80 mg before bedtime. 48 mL 10 03/12/2024 Active Topiramate 25 MG Oral Tablet (topAMAX) TAKE 1 TABLET NIGHTLY X 2 WEEKS THEN INCREASE TO 2 TABLETS NIGHTLY. 60 Tablet 1 03/17/2024 Active Fluticasone Furoate-Vilanterol 100-25 MCG/ACT Inhalation Aerosol Powder Breath Activated (BREO ellipta) Inhale 1 Puff by mouth in the morning. 60 Blister Dosing Unit 2 01/02/2024 4 Discontinue d(Refill) Hospital, Clinic, or Other Facility Administered Medication [...] mRNA, LNP-s, No Pre serve, 2-Dose Series (Appscio) 09/23/2021 Pneumococcal Conjugate Vacci ne, 20-valent ([id number]) 12/12/2023(Deferred: Patient Refused - Renee Duarte MD) [...] as of this encounter Nursing Notes * Kenya Espinoza RN - 04/02/2024 10:34 AM EDT Patient in chair 20 Safety and Risk for Injury Patient will remain free from injury. Ensure appropriate safety devices are available. Provide and maintain safe environment. Goals: see above Possible barriers to meeting goals: IV Stability of the patient: Moderately stable - low risk of patient condition declining or worsening Summary regarding today's goals: Met: no falls * Nova Smith RN - 04/02/2024 9:40 AM EDT Pre-chemo checklist Chemo/Immune agents :::taxol/zometa Consent for chemotherapy drug treatment complete, dated, and signed? 09/23/2023 Is this a research protocol? no Treatment lab parameters met? Yes Has treatment weight changed > than 10% No Treatment preauthorized? Yes Blood pressure N/A Urine protein N/A Chemo education completed for new therapies? N/A Return appointment scheduled Yes Orders released Yes, per provider per Diego WALKER patient is good to get taxol/zometa today documented in this encounter Plan of Treatment Upcoming Encounters Date Type Department Care Team (Late st Contact Info) Description 04/08/2024 9:00 AM EDT Rehab Services Speech Therapy, [facility] [address] [place] [address] Reginaldo Mendoza, ELECTRICAL ACCESSORIES I ASSEMBLER [address] [place] [address] 04/14/2024 10:30 AM EDT Laboratory [facility], [address] [phone] [place], Lab Lock [address] [place] [address] 04/15/2024 6:15 AM EDT Anticoagulation Centralized Clinical Pharmacy Services, [place] Leal [address] [place] [address] [place] [address] [place] [address] 04/23/2024 7:15 AM EDT Nurse Only Hematology Oncology [facility], [address] [address] [place], Nurse Lab Hem/Onc [address] [place] [address] 04/23/2024 8:00 AM EDT Office Visit Hematology Oncology [facility], [address] [phone] Velia Segundo PA-C [address] [place] [phone] 04/23/2024 9:00 AM EDT Hem/Onc Treatment Hematology Oncology [facility], [address] [address] [place], Chair 11 Hem/Onc [address] [place] [address] [phone] 05/06/2024 9:20 AM EDT Office Visit Neurology [facility] [place] [address] Kathy Pryor PA-C [facility] [place] [address] 08/31/2024 8:40 AM EST Office Visit Pulmonary Medicine, [facility] [address] [facility] [place] [phone] Wyatt Gallegos MD [address] [place] [phone] Scheduled Orders Name Type Priority Associated Diagnoses Orde r Schedule TSH WITH FREE T4 IF INDICATED Lab STAT Chemotherapy adverse reaction, initial encounter Chemotherapy induced nausea and vomiting Encounter for antineoplastic chemotherapy Malignant neoplasm of lower lobe, left bronchus or lung (HCC) 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) Expected: 04/02/2024 (Approximate), Expires: 09/29/2024 GLUCOSE Lab STAT Chemotherapy adverse reaction, initial encounter Chemotherapy induced nausea and vomiting Encounter for antineoplastic chemotherapy Malignant neoplasm of lower lobe, left bronchus or lung (HCC) 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) Expected: 04/02/2024 (Approximate), Expires: 09/29/2024 CBC WITH WBC DIFFERENTIAL Lab STAT Chemotherapy adverse reaction, initial encounter Chemotherapy induced nausea and vomiting Encounter for antineoplastic chemotherapy Malignant neoplasm of lower lobe, left bronchus or lung (HCC) 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) Expected: 04/02/2024 (Approximate), Expires: 09/29/2024 COMPREHENSIVE METABOLIC PANEL Lab STAT Chemotherapy adverse reaction, initial encounter Chemotherapy induced nausea and vomiting Encounter for antineoplastic chemotherapy Malignant neoplasm of lower lobe, left bronchus or lung (HCC) 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) Expected: 04/02/2024 (Approximate), Expires: 09/29/2024 Health Maintenance Due Date Last Done Comments [...] shot) (Season Ended) 2024 HbA1c 11/06/2024 11/06/2023, 07/05/2023, 09/19/2021, Additional history exists Colonoscopy 08/13/2029 08/13/2019, 08/13/2019 Colorectal Cancer Screening 08/13/2029 GARDASIL-HPV IMMUNIZATION SERIES Aged Out No longer eligible based on patient's age to complete this topic MENINGOCOCCAL (MENACTRA/MENVEO) Aged Out No longer eligible based on patient's age to complete this topic documented as of this encounter Medical Devices Implanted Type Area Residential Sales Device Identifier Shelf Expiration Date Model / Serial / Lot Power Port 8fr Sngl Lumen Plas - [id number] Implanted:Qty: 1 on 04/24/2021 at [facility] : PERIPHERAL VASCULAR [id number] 02/24/2022 [id number] / / [id number] Port Implant W/8f Poly Cath - [id number] Implanted:Qty: 1 on 10/15/2023 at [facility] CR [facility] : PERIPHERAL VASCULAR [id number] 03/27/2025 [id number] / / [id number] documented as of this encounter Visit Diagnoses Diagnosis Chemotherapy adverse reaction, initial encounter- Primary Chemotherapy induced nausea and vomiting Nausea with vomiting Encounter for antineoplastic chemotherapy Malignant neoplasm of lower lobe, left bronchus or lung (HCC) 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) documented in this encounter Administered Medications Active Administered Medications - up to 3 most recent administrations Medication Order MAR Action Action Date Dose Rate Site diphenhydrAMINE (Benadryl) inj 50 mg 50 mg, IV Push, ONCE PRN Other, Hypersensitivity Reaction, Starting on Sat04/02/24 at 0941, Until Sat04/03/24 at 0940, For 24 hours EPINEPHrine 1 MG/ML inj 0.3 mg 0.3 mg, Intramuscular, ONCE PRN Other, Hypersensitivity Reaction or Anaphylaxis, Starting on Sat04/02/24 at 0941, Until Sat04/03/24 at 0940, For 24 hours hEParin 100 UNIT/ML Lock Flush inj 500 Units 500 Units (5 mL), IV Lock, PRN Other, IV Flush, Starting on Sat04/02/24 at 0941, Until Sat04/03/24 at 0940, For 24 hours, Do not flush if lock, PICC, or central line not in place; IV infusing or unable to flush. Given 04/02/2024 2:00 PM EDT 500 Units Hydrocortisone Sod Suc (PF) (Solu-Cortef) inj 100 mg 100 mg, IV Push, ONCE PRN Other, Hypersensitivity Reaction, Starting on Sat04/02/24 at 0941, Until Sat04/03/24 at 0940, For 24 hours LORAzepam (Ativan) tab 0.5 mg 0.5 mg, Oral, ONCE PRN Anxiety, Nausea, Starting on Sat04/02/24 at 1045, Until Discontinued NSS infusion Intravenous, at 50 mL/hr, PRN, Starting on Sat04/02/24 at 1045, Until Discontinued, Maintenance line Start Infusion 04/02/2024 10:17 AM EDT 50 mL/hr oxygen GAS Inhalation, OXYGEN, First dose on Ofe 04/02/24 at 1015, Until Discontinued, Device/Managed by: Low Flow Device, Goal SPO2 (%): 91-95, Starting Device: Nasal Cannula, Initial Flow Rate (LPM): 2, Lowest Support: Nasal Cannula: Flow 0-6 LPM. Titrate up/down by 1 LPM., Higher Support: Non-Rebreather (NRB) Mask: Minimum of 10 LPM. Titrate to maintain bag inflation., Titration Interval: Q2 minutes and as needed., Notify Provider: For sudden DECREASE in resting SPO2 to less than 85% and when escalating delivery device. sodium chloride 0.9 % flush central line 10 mL 10 mL, IV Push, PRN Other, IV Flush, Starting on Sat04/02/24 at 0941, Until Sat04/03/24 at 0940, For 24 hours, Do not flush if lock, PICC, or central line not in place; IV infusing or unable to flush. Given 04/02/2024 2:00 PM EDT 10 mL Given 04/02/2024 10:17 AM EDT 10 mL Inactive Administered Medications - up to 3 most recent administrations Medication Order MAR Action Action Date Dose Rate Site diphenhydrAMINE (Benadryl) cap 50 mg 50 mg, Oral, ONCE, On Sat04/02/24 at 1045, For 1 dose Given 04/02/2024 10:15 AM EDT 50 mg Famotidine (Pepcid) tab 20 mg 20 mg, Oral, ONCE, On Ofe 04/02/24 at 1045, For 1 dose Given 04/02/2024 10:15 AM EDT 20 mg ondansetron (Zofran) tab 8 mg 8 mg, Oral, ONCE, On Sat04/02/24 at 1015, For 1 dose Given 04/02/2024 10:15 AM EDT 8 mg PACLitaxel (Taxol) 387 mg in NSS 500 mL infusion 387 mg (rounded from 386.75 mg = 175 mg/m2 2.21 m2 Treatment Plan BSA from Recorded weight), IV Piggyback, at 191.5 mL/hr Administer over 180 Minutes, Administer through 0.22 micron low protein binding filter!, ONCE, 1 dose, On Ofe 04/02/24 at 1145 New Bag 04/02/2024 10:45 AM EDT 387 mg 191.5 mL/hr Zoledronic Acid (Zometa) 4 mg in 100 mL PREMIX ivpb 4 mg, IV Piggyback, ONCE, 1 dose, On Ofe 04/02/24 at 1015, Administer over 15 Minutes Start Infusion 04/02/2024 10:19 AM EDT 4 mg 400 mL/hr documented in [...] Advance Directives occurred with: Patient Care Teams Ceramic Design Engineer Relationship Specialty Start Date End Date Matthew Herrmann PA-C [address] [place] [address] [place] [address] PCP - General Physician [employer] Senior Sergeant 03/22/21 documented as of this encounter
--- OUTSIDE RECORDS SUMMARY | 2024-04-11 14:44 | External Medical Summary | Summary of Care ---
Author Name Unknown Organization [facility] Address [address] [facility] [place] [address] Phone [phone] Care Team Providers Care Spray Machine Tender Name Role Phone Matthew Herrmann PA-C Primary Care Provider [phone] Reason for Visit * Reason Onset Date Comments Medication Refill 04/02/2024 Elena bello Encounter Details Date Type Department Care Team (Late st Contact Info) Description 04/02/2024 Refill Pulmonary Medicine [place] Davies [address] [place] [phone] Wyatt Carrillo MD [address] [place] [address] Allergies Active Allergy Reactions Criticality Noted Date [...] the morning. 60 Blister Dosing Unit 2 04/02/2024 Active Fluticasone Furoate-Vilanterol 100-25 MCG/ACT Inhalation Aerosol Powder Breath Activated (BREO ellipta) Inhale 1 Puff by mouth in the morning. 60 Blister Dosing Unit 2 01/02/2024 Discontinue d(Refill) Hospital, Clinic, or Other Facility [...] mRNA, LNP-s, No Pre serve, 2-Dose Series (makr) 09/23/2021 Pneumococcal Conjugate Vacci ne, 20-valent ([id number]) 12/12/2023(Deferred: Patient Refused - Renee Duarte MD) [...] No 08/01/2021 documented as of this encounter Miscellaneous Notes * Telephone Encounter - Wyatt Carrillo MD - 04/02/2024 2:15 PM EDT Signed Prescriptions: Disp Refills Fluticasone Furoate-Vilanterol 100-25 MCG/*60 Bli*2 Sig: Inhale 1 Puff by mouth in the morning. Authorizing Provider: WYATT CARRILLO * Telephone Encounter - Iza Araiza LPN - 04/02/2024 7:56 AM EDTPending Prescriptions: Disp Refills Fluticasone Furoate-Vilanterol 100-25 MCG/*60 Bli*2 Sig: Inhale 1 Puff by mouth in the morning. documented in this encounter Plan of Treatment Upcoming Encounters Date Type Department Care Team (Late st Contact Info) Description 04/08/2024 9:00 AM EDT Rehab Services Speech Therapy, [address] [address] Reginaldo Mendoza, IGNITION EXPERT [address] [place] [address] 04/14/2024 10:30 AM EDT [facility] [phone] [address] [address] 04/15/2024 6:15 AM EDT Anticoagulation Centralized Clinical Pharmacy Services, [place] Leal [address] [place] [address] [place] [address] [place] [address] [address] [facility] [place] [address] 04/23/2024 7:15 AM EDT Nurse Only Hematology Oncology [facility], [address] [phone] [place], Nurse Lab Hem/Onc [address] [place] [address] 04/23/2024 8:00 AM EDT Office Visit Hematology Oncology apper [facility] [place] [address] [place] [address] Velia Segundo PA-C [address] [place], [place] [phone] 04/23/2024 9:00 AM EDT Hem/Onc Treatment Hematology Oncology [facility] [place] [address] [place] [address] [place], Chair 11 Hem/Onc [address] [place] [address] 05/06/2024 9:20 AM EDT Office Visit Neurology [facility] 200 [facility] [place] [address] Kathy Pryor PA-C [facility] [place] [address] 08/31/2024 8:40 AM EST Office Visit Pulmonary Medicine, [facility] [address] [facility] [place] [phone] Wyatt [facility]illo MD [address] [facility] [phone] Health Maintenance Due Date Last Done Comments [...] this encounter Medical Devices Implanted Type Area Sash Sticker Device Identifier Shelf Expiration Date Model / Serial / Lot Power Port 8fr Sngl Lumen Plas - [id number] Implanted:Qty: 1 on 04/24/2021 at [facility] CR [facility] : PERIPHERAL VASCULAR [id number] 02/24/2022 [id number] / / [id number] Port Implant W/8f Poly Cath - [id number] Implanted:Qty: 1 on 10/15/2023 at [facility] CR BARD : PERIPHERAL VASCULAR [id number] 03/27/2025 [id number] / / [id number] documented as of this encounter Advance Directives * Full Code [...] Advance Directives occurred with: Patient Care Teams Spray Machine Tender Relationship Specialty Start Date End Date Matthew Herrmann PA-C [address] [place], [place] [address] PCP - General Physician Utilization Review Specialist 03/22/21 documented as of this encounter
--- OUTSIDE RECORDS SUMMARY | 2024-04-11 14:44 | External Medical Summary | Summary of Care ---
Author Name Unknown Organization [facility] Address [address] [place] [address] Phone [phone] Care Team Providers Care Open Hearth Laborer Name Role Phone Matthew Herrmann PA-C Primary Care Provider [phone] Reason for Visit * Reason Comments Speech * Evaluate & Treat - Unlimited Visits (Within 10 days (routine)) - Pending Review Specialty Diagnoses / Procedures Referred By Yuli seay Referred To Contact Speech Pathology / Speech Pathology Diagnoses Cerebral infarction, unspecified (HCC) Yonathan Tomas CRNP [address] [place] [address] [address] Referral ID Status Reason Start Date Expiration Date Visits Requested Visits Authorized [id number] Pending Review Specialty Services Required 01/21/2024 07/19/2024 15 15 Encounter Details Date Type Department Care Team (Latest Contact Info) Description 04/01/2024 1:00 PM EDT Rehab Services Speech Therapy, [facility] [address] [place] [address] Lisa Hairston, BISQUE KILN DRAWER [address] [place] [phone] Cerebral infarction, unspecified mechanism (HCC)*; Dysphagia, unspecified type Allergies Active Allergy Reactions Criticality Noted Date Comments Carboplatin High 11/14/2021 Dyspnea, chest pain, hypoxia, sore throat, edema throat, flushing, mild hypotension Isosorbide Nitrate Other (Please comment) 07/22/2023 Headache documented as of this encounter (statuses as of 04/06/2024) Medications Medication Sig Dispensed Refills Start Date [...] as of this encounter (statuses as of 04/06/2024) Active Problems Problem Noted Date Diagnosed Date [...] as of this encounter (statuses as of 04/06/2024) Resolved Problems Problem Noted Date Diagnosed Date Resolved Date MSSA bacteremia 08/01/2021 08/07/2021 Sepsis 08/01/2021 08/07/2021 COPD, group B, by GOLD 2017 classification 05/08/2021 06/21/2021 Overview: Per COPD GOLD Classification Obstructive lung disease 04/10/2021 Overview: Per COPD GOLD Classification documented as of this encounter (statuses as of 04/06/2024) Immunizations Name Administration Dates Next Due COVID-19 mRNA, LNP-s, No Pre serve, 2-Dose Series ([employer]) 09/23/2021 Pneumococcal Conjugate Vacci ne, 20-valent ([id number]) 12/12/2023(Deferred: Patient Refused - Renee Duarte MD) [...] No 08/01/2021 documented as of this encounter Progress Notes * Lisa Hairston, BISQUE KILN DRAWER - 04/06/2024 8:34 AM EDT OUTPATIENT REHABILITATION SPEECH-LANGUAGE PATHOLOGY DAILY PROGRESS NOTE Speech Therapy, [facility] [address] [facility] [address] Patient Name: John Brothers Date: 04/01/2024 Time: 0226-5755 Plan of Care Expiration Date: 05/19/2024 Visit Number: 6 of 15 Dysphagia/ Communication diagnosis: Cerebral infarction, unspecified mechanism (HCC) Subjective: John seen in speech office with his and orienting speech therapist present. Johnindicated that he is concentrating on rate and smaller bolus size while eating and more specifically eating and that he is "coughing a lot less" which was verified by his . They both validate primary concern with memory and additional education provided regarding prognosis and rehabilitation timeline. Short Term Communication Goals: John will name 15 category members in a timed 1 minute period to increase overall naming/thought formulation. Comments: Using visualization John generated 12 category members in 1 minute. There was evidence of categorization within the category suggestive of improved thought organization. John will utilize compensatory memory strategies independently at 90% of opportunities given to recall detail for completion of IADL tasks. Comment: Spouse generated a list of 3 things she says that are important to remember and 3 things that are not important. She then was asked to introduce the important items with an attention cue "this is important, " for delayed recall. During this activity spouse indicated that she is most concerned with John forgetting his injected medication as this is a frequent high importance task John forgets. After analyzing environmental, motivation, and recall/attention factors we determined plan to try an alarm on cell phone with specific label as well as placing the medication in the area where John gets dressed so he can inject it prior to getting dressed. Written cue provided with guidance on these strategies. Follow up with patient regarding effectiveness and potential barriers at next visit. Short Term Dysphagia Goals: 1) John will utilize compensatory swallowing strategies to minimize signs and symptoms of dysphagia to less than 10% of trials. Comments: John used double swallow and small single sips free of cues and overt signs and symptomsof aspiration/penetration. Advised John and to focus on rate and small bolus size. Goal met. 2) John will improve pharyngeal stage function via facilitative techniques including effortful swallow and rianna maneuver with less than 10% signs and symptoms of aspiration/ penetration over 2consecutive sessions. Comments: John completed chin tuck against resistance (CTAR) with use of a rolled up towel for 3 set of 1 minute hold and 30 repetitions of 3 second hold with min cues. John will continue effortfulswallow with dense consistencies and complete CTAR for home exercise program. Plan: Recommend continued therapy to address higher level cognitive tasks including memory and recall of detail as well as word finding and add dysphagia treatment to plan of care. Indicated 1 days/week, 45-60 minutes/session x 10 week(s) Lisa Hairston MS, CCC-BISQUE KILN DRAWER 04/01/2024 documented in this encounter Plan of Treatment Upcoming Encounters Date Type Department Care Team (Late st Contact Info) Description 04/08/2024 9:00 AM EDT Rehab Services Speech Therapy, [address] [address] Reginaldo Mendoza, BISQUE KILN DRAWER [address] [place] [address] 04/14/2024 10:30 AM EDT Laboratory [facility] [phone] [place], [facility] [address] [place] [address] 04/15/2024 6:15 AM EDT Anticoagulation Centralized Clinical Pharmacy Services, [facility] Leal [address] [place] [address] TG Contreras [address] [place] [address] 60 [facility] TG [place] [address] 04/23/2024 7:15 AM EDT Nurse Only Hematology Oncology [facility], [address] [address] [place], Nurse Lab Hem/Onc [facility] [address] [place], [place] [phone] 04/23/2024 8:00 AM EDT Office Visit Hematology Oncology [facility], [place] [address] [place] [address] Velia Segundo PA-C [address] [place] [address] 04/23/2024 9:00 AM EDT Hem/Onc Treatment Hematology Oncology [facility], [place] [address] [place] [address] Pache[place], [facility] 11 Hem/Onc [address] [place] [address] 05/06/2024 9:20 AM EDT Office Visit [facility] [address] [place] [address] Kathy Pryor PA-C [address] [place] [address] 08/31/2024 8:40 AM EST Office Visit Pulmonary Medicine, [facility] [address] [facility] TG [place] [address] Wyatt Gallegos MD [address] [place] [phone] Health Maintenance Due Date Last Done Comments [...] this encounter Medical Devices Implanted Type Area Glass Selector Device Identifier Shelf Expiration Date Model / Serial / Lot Power Port 8fr Sngl Lumen Plas - [id number] Implanted:Qty: 1 on 04/24/2021 at [facility] : PERIPHERAL VASCULAR [id number] 02/24/2022 [id number] / / [id number] Port Implant W/8f Poly Cath - [id number] Implanted:Qty: 1 on 10/15/2023 at [facility] CR BARD : PERIPHERAL VASCULAR [id number] 03/27/2025 [id number] / / [id number] documented as of this encounter Visit Diagnoses Diagnosis Cerebral infarction, unspecified mechanism (HCC)- Primary Dysphagia, unspecified type documented in this encounter Advance Directives * [...] patient have Health Care Power of Attor treovn? No * Full Code Date Activated Date Inactivated Comments 05/23/2021 12:21 PM 05/24/2021 9:38 PM This order reflects the patients wishes and were consensually agreed upon. Question Answer Comments Discussion of Advance Directives occurred with: Patient Care Teams Open Hearth Laborer Relationship Specialty Start Date End Date Matthew Herrmann PA-C [address] [place] [address] [phone] PCP - General Physician E Marketing Specialist 03/22/21 documented as of this encounter
--- OUTSIDE RECORDS SUMMARY | 2024-04-11 14:44 | External Medical Summary | Summary of Care ---
Author Name Unknown Organization [facility] Address [address] [place] [address] Phone [phone] Care Team Providers Care Edge Bonder Name Role Phone Matthew Herrmann PA-C Primary Care Provider [phone] Reason for Visit * Reason Comments Memory Loss * Evaluate & Treat - Unlimited Visits (Within 10 days (routine)) - Pending Review Specialty Diagnoses / Procedures Referred By Yuli seay Referred To Contact Speech Pathology / Speech Pathology Diagnoses Cerebral infarction, unspecified (HCC) Yonathan Tomas CRNP [address] [place] [address] [address] Referral ID Status Reason Start Date Expiration Date Visits Requested Visits Authorized [id number] Pending Review Specialty Services Required 01/21/2024 07/19/2024 15 15 Encounter Details Date Type Department Care Team (Latest Contact Info) Description 04/08/2024 9:00 AM EDT Rehab Services Speech Therapy, [address] [address] Ursula Richardson CCC-ASSISTANT SOFTBALL COACH [address] [place] [address] Cerebrovascular accident (CVA), unspecified mechanism (HCC)* Allergies Active Allergy Reactions Criticality Noted Date Comments Carboplatin High 11/14/2021 Dyspnea, chest pain, hypoxia, sore throat, edema throat, flushing, mild hypotension Isosorbide Nitrate Other (Please comment) 07/22/2023 Headache documented as of this encounter (statuses as of 04/09/2024) Medications Medication Sig Dispensed Refills Start Date End Date Status Vitamin E 1000 UNIT Oral Capsule Take 1 Capsule by mouth in the morning. Active Ondansetron HCl 8 MG Oral TabletIndications:Ch emotherapy induced nausea and vomiting Take 1 Tablet [...] Active Atorvastatin Calcium 40 MG Oral Tablet (Lipitor)Indications :Acute CVA (cerebrovascular accident) (HCC) Take 1 Tablet by mouth daily. 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 90 Tablet 3 09/03/2023 Active Prochlorperazine Maleate 10 MG Oral Tablet (Compazine)Indicatio ns:Chemotherapy induced nausea and vomiting Take 1 Tablet by mouth every 6 hours as needed for Nausea. 30 Tablet 3 09/22/2023 Active ProAir HFA 108 (90 Base) MCG/ACT Inhalation Aerosol SolutionIndications: LRTI (lower respiratory tract infection) Inhale 2 Puffs by mouth every 4 hours as needed for Wheezing or Shortness of Breath. 18 g 10/29/2023 Active Furosemide 20 MG Oral Tablet (Lasix)Indications:G eneralized edema due to fluid overload Take 1 Tablet by mouth in the morning. 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 30 Tablet 01/23/2024 Active OLANZapine 5 MG Oral Tablet (zyPREXA)Indications :History of pulmonary embolism,Chemotherap y induced nausea and vomiting Take 1 tab at bedtime starting the night of chemo x 4 nights. Repeat with each treatment. 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 with embolic cerebrovascular accident (CVA) 10/03/2023 Malignant neoplasm of lower lobe, left bronchus or lung 06/13/2023 Immunodeficiency 03/12/2023 Chemotherapy adverse reaction, initial encounter 11/14/2021 Multiple subsegmental pulmon andrei emboli without acute [...] as of this encounter (statuses as of 04/09/2024) Resolved Problems Problem Noted Date Diagnosed Date Resolved Date Prediabetes 09/22/2021 04/09/2024 MSSA bacteremia 08/01/2021 08/07/2021 Sepsis 08/01/2021 08/07/2021 COPD, group B, by GOLD 2017 classification 05/08/2021 06/21/2021 Overview: Per COPD GOLD Classification Obstructive lung disease 04/10/2021 Overview: Per COPD GOLD Classification documented as of this encounter (statuses as of 04/09/2024) Immunizations Name Administration Dates Next Due COVID-19 mRNA, LNP-s, No Pre serve, 2-Dose Series ([employer]izer) 09/23/2021 Pneumococcal Conjugate Vacci ne, 20-valent ([id number]) 12/12/2023(Deferred: Patient Refused - Renee Duarte MD) [...] as of this encounter Progress Notes * Ursula Richardson, PÉREZ-ASSISTANT SOFTBALL COACH - 04/09/2024 1:56 PM EDT OUTPATIENT REHABILITATION SPEECH-LANGUAGE PATHOLOGY DAILY PROGRESS NOTE Speech Therapy, [address] [place] [address] Patient Name: John Brothers Date: 04/08/2024 Time: [id number] Plan of Care Expiration Date: 05/19/2024 Visit Number: 7 of 15 Dysphagia/ Communication diagnosis: Cerebral infarction, unspecified mechanism (HCC) Subjective: John seen with his present in the session, Orienting ASSISTANT SOFTBALL COACH was present as well. They indicated things are going well and they did not have further concerns. They have been implementing techniques for memory as swallowing techniques that are maintain safe swallow and decreasing coughing during liquids. Short Term Communication Goals: John will name [...] detail for completion of IADL tasks. Comment: during the last completed speech appointment, John's spouse indicated that she is most concerned with John forgetting his injected medication as this is a frequent high importance task John forgets. Analysis of environmental and attention/recall factors they created and implemented strategies including discussion about setting up an alarm for the injectable med. Discussion on putting this med in a common and well noticed area. They did indicated following last session there was not any medication misses this week and they felt things were going very well. A lot of education provided on the use of self identification tasks to identify when he is feeling well or increased fatigue e tc. Due to current chemo therapy treatments and medications. Education provided that his deficit areas will become more prominent when he is not feeling well. 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 Judgement and reasoning were good throughout this, and his indicated he does also have one of his children with him for work to assist with these decisionmaking tasks. Short Term Dysphagia Goals: 1) John will utilize compensatory swallowing strategies to minimize signs and symptoms of dysphagia to less than 10% of trials. Comments: John used double swallow and small single sips free of cues and overt signs and symptomsof aspiration/penetration. Advised John and to focus on rate and small bolus size. Goal met. Plan: Recommend discharge following today's session. He has met goals and is able to maintain a good level of independence at home. Both he and his wish to be discharged and feel his cognitive goals as well as swallowing goals have been met at this time. John is motivated to continue and maintain a positive outlook on his medical condition focusing on the the techniques that were discussed to maintain and remain as independent as possible. Providers Signature: Date: Comments: PLEASE SIGN AND FAX TO [phone] Thank you, Ursula Richardson CCC-ASSISTANT SOFTBALL COACH 04/09/2024 2:15 PM Ursula Richardson CO, CCC-ASSISTANT SOFTBALL COACH documented in this encounter Plan of Treatment Upcoming Encounters Date Type Department Care Team (Late st Contact Info) Description 04/14/2024 10:30 AM EDT Laboratory Laboratory [facility] [place], [place] [address] [place] [address] TG [place] [phone] Shawna Glez [address] [place] [address] TG HOFFMAN [address] 04/15/2024 6:15 AM EDT Anticoagulation Centralized Clinical Pharmacy Services, [facility] Leal [address] [place] [address] TG Contreras [address] [facility] 58 60 [facility] TG [place] [address] 04/23/2024 7:15 AM EDT Nurse Only Hematology Oncology [facility], [place] [address] [address] [place], [place] [phone] [place], Nurse Lab Hem/Onc [facility] [address] [place], [place] [phone] 04/23/2024 8:00 AM EDT Office Visit Hematology Oncology [facility], [place] [address] [place] [phone] Velia Segundo PA-C [address] [place], [place] [phone] 04/23/2024 9:00 AM EDT Hem/Onc Treatment Hematology Oncology [facility], [place] [address] [place] [address] Pacheco, Chair 11 Hem/Onc [address] [place] [id number] 05/06/2024 9:20 AM EDT Office Visit Neurology [facility] [address] [place] [address] Kathy Pryor PA-C [address] [place] [address] 08/31/2024 8:40 AM EST Office Visit Pul[facility] Medicine, [facility] [place] [id number] Wytat Gallegos MD [address] [place] [phone] Health Maintenance Due Date Last Done Comments [...] Influenza Vaccine (FLU shot) (Season Ended) 2024 Diabetes Screening 04/02/2027 04/02/2024, 0 03/12/2024, 02/13/2024, Additional history exists Colonoscopy 08/13/2029 08/13/2019, 08/13/2019 Colorectal Cancer Screening 08/13/2029 GARDASIL-HPV IMMUNIZATION SERIES Aged Out No longer eligible based on patient's age to complete this topic MENINGOCOCCAL (MENACTRA/MENVEO) Aged Out No longer eligible based on patient's age to complete this topic documented as of this encounter Medical Devices Implanted Type Area Stripe Matcher Device Identifier Shelf Expiration Date Model / Serial / Lot Power Port 8fr Sngl Lumen Plas - [id number] Implanted:Qty: 1 on 04/24/2021 at [facility] CR BARD : PERIPHERAL VASCULAR [id number] 02/24/2022 [id number] / / [id number] Port Implant W/8f Poly Cath - [id number] Implanted:Qty: 1 on 10/15/2023 at [facility] CR BARD : PERIPHERAL VASCULAR [id number] 03/27/2025 [id number] / / [id number] documented as of this encounter Visit Diagnoses Diagnosis Cerebrovascular accident (CVA), unspecified mechanism (HCC)- Primary documented in this encounter Advance Directives * [...] Advance Directives occurred with: Patient Care Teams Edge Bonder Relationship Specialty Start Date End Date Matthew Herrmann PA-C [address] [place] [phone] PCP - General Physician Service Or Work Dispatcher 03/22/21 documented as of this encounter
--- OUTSIDE RECORDS SUMMARY | 2024-04-11 14:44 | External Medical Summary | Summary of Care ---
Author Name Unknown Organization [facility] Address [address] [place] [address] Phone [phone] Care Team Providers Care Glass Cutting Machine Feeder Name Role Phone Matthew Herrmann PA-C Primary Care Provider [phone] Reason for Visit * Reason Comments Treatment * Evaluate & Treat - Unlimited Visits (Within 10 days (routine)) - Pending Review Specialty Diagnoses / Procedures Referred By Yuli seay Referred To Contact Hematology/Oncology Diagnoses Malignant neoplasm of unspecified part of unspecified bronchus or lung (HCC) Yonathan Tomas CRNP [address] [place] [address] Referral ID Status Reason Start Date Expiration Date Visits Requested Visits Authorized [id number] Pending Review Specialty Services Required 11/21/2023 11/20/[phone] Encounter Details Date Type Department Care Team (Latest Contact Info) Description 02/13/2024 11:30 AM EDT Hem/Onc Treatment Hematology Oncology [facility], [place] [address] [place] [address] [place], [facility] 4 Hem/Onc [address] [place] [address] Chemotherapy adverse reaction, initial encounter*; Chemotherapy induced [...] (Pfizer) 09/23/2021 Pneumococcal Conjugate Vacci ne, 20-valent ([id number]) 12/12/2023(Deferred: Patient Refused - Renee Duarte MD) [...] 1:00 PM EDT Rehab Services Speech Therapy, [place] [id number] [place] [address] Lisa Hairston, MANAGER LATIN [address] [place] [address] 04/02/2024 8:15 AM EDT Nurse Only Hematology Oncology [address] [place] [address] [place], Nurse Lab Hem/Onc [address] [place] [address] 04/02/2024 9:00 AM EDT Office Visit Hematology Oncology [facility], [place] [address] [place] [address] Diego Pena CRNP [address] [place] [address] 04/02/2024 10:00 AM EDT Hem/Onc Treatment Hematology Oncology [facility], [place] [address], [place] [phone] [place], Chair 16 Hem/Onc [address] [place] [phone] 04/08/2024 9:00 AM EDT Rehab Services Speech Therapy, [place] [address] [place] [address] Reginaldo Mendoza, MANAGER LATIN [address] [place] [address] 04/14/2024 10:30 AM EDT Laboratory Laboratory [facility] [phone] [address] [address] 04/15/2024 6:15 AM EDT Anticoagulation Pharmacy Call Center WB 58-60 [facility] [place] [address] Ccps, [facility] 58 60 [facility] [place] [address] 04/23/2024 7:15 AM EDT Nurse Only Hematology Oncology [facility], [place] [address] [place] [address] [place], Nurse Lab Hem/Onc [address] [place] [address] 04/23/2024 8:00 AM EDT Office Visit Hematology Oncology [facility], [place] [address] [place] [address] Velia Segundo PA-C [address] [place] [address] 04/23/2024 9:00 AM EDT Hem/Onc Treatment Hematology Oncology [facility], [place] [address], [place] [phone] [place], Chair 11 Hem/Onc [facility] [address] [place], [place] [phone] 05/06/2024 9:20 AM EDT Office Visit Neurology [facility] 200 [facility] [place] [address] Kathy Pryor PA-C 200 [facility] [place] [address] 08/31/2024 8:40 AM EST Office Visit Pulmonary Medicine, [facility] 132 [facility] [place] [address] Wyatt Gallegos MD [address] [facility] [phone] Scheduled Orders Name Type Priority Associated Diagnoses [...] this encounter Medical Devices Implanted Type Area Nurse Staff Industrial Device Identifier Shelf Expiration Date Model / Serial / Lot Power Port 8fr Sngl Lumen Plas - [id number] Implanted:Qty: 1 on 04/24/2021 at [facility] CR BARD : PERIPHERAL VASCULAR [id number] 02/24/2022 [id number] / / [id number] Port Implant W/8f Poly Cath - [id number] Implanted:Qty: 1 on 10/15/2023 at [facility] CR BARD : PERIPHERAL VASCULAR [id number] 03/27/2025 [id number] / / [id number] documented as of this encounter Results * (ABNORMAL) COMPREHENSIVE METABOLIC PANEL (03/12/2024 7:49 AM EDT) Pathologist [facility] BUN 12 6 - 20 mg/dL 03/12/2024 [...] Foote MD LAB BLOOD ORDERAB LES LABORATORY [facility] [address] [place] [address] * TSH WITH FREE T4 IF INDICATED (03/12/2024 7:49 AM EDT) TSH 2.69 0.27 - 4.20 uIU/mL 03/12/2024 10:03 AM EDT LABORATORY [facility] Blood Blood sample taken from central line / Unknown Central Line / Unknown 03/12/2024 7:49 AM EDT 03/12/2024 8:00 AM EDT Kerri Foote MD LAB BLOOD ORDERAB LES LABORATORY [facility] [address] [place] [address] documented in this encounter Visit Diagnoses Diagnosis [...] 50 mg 50 mg, Oral, ONCE, On Foe 02/13/24 at 1230, For 1 dose Given [...] Advance Directives occurred with: Patient Care Teams Glass Cutting Machine Feeder Relationship Specialty Start Date End Date Matthew Herrmann PA-C [address] [place], [place] [address]TG white [address] PCP - General Physician Spring Fitter 03/22/21 documented as of this encounter
--- OUTSIDE RECORDS SUMMARY | 2024-04-11 14:44 | External Medical Summary | Summary of Care ---
Author Name Unknown Organization [facility] Address [address] [place] [address] Phone [phone] Care Team Providers Care Director News Name Role Phone Matthew Herrmann PA-C Primary Care Provider [phone] Reason for Visit * Reason Comments Follow Up * Evaluate & Treat - Unlimited Visits (Within 30 days (routine)) - Authorized Specialty Diagnoses / Procedures Referred By Yuli seay Referred To Contact Oncology Diagnoses Malignant neoplasm of unspecified part of unspecified bronchus or lung (HCC) Procedures Eval and Treat Yonathan Tomas CRNP [address] [place] [address] Referral ID Status Reason Start Date Expiration Date Visits Requested Visits Authorized [id number] Authorized Specialty Services Required 3 11/20/[phone] Encounter Details Date Type Department Care Team (Late st Contact Info) Description 04/02/2024 9:00 AM EDT Office Visit Hematology Oncology [facility] [address] [place] [address] Diego Pena CRNP [address] [place] [address] 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)*; Chemotherapy-induced peripheral neuropathy (HCC) Allergies Active Allergy Reactions Criticality Noted Date Comments Carboplatin High 11/14/2021 Dyspnea, chest pain, hypoxia, sore throat, edema throat, flushing, mild hypotension Isosorbide Nitrate Other (Please comment) 07/22/2023 Headache documented as of this encounter (statuses as of 04/05/2024) Medications Medication Sig Dispensed Refills Start Date [...] as of this encounter (statuses as of 04/05/2024) Active Problems Problem Noted Date Diagnosed Date [...] as of this encounter (statuses as of 04/05/2024) Resolved Problems Problem Noted Date Diagnosed Date Resolved Date MSSA bacteremia 08/01/2021 08/07/2021 Sepsis 08/01/2021 08/07/2021 COPD, group B, by GOLD 2017 classification 05/08/2021 06/21/2021 Overview: Per COPD GOLD Classification Obstructive lung disease 04/10/2021 Overview: Per COPD GOLD Classification documented as of this encounter (statuses as of 04/05/2024) Immunizations Name Administration Dates Next Due COVID-19 mRNA, LNP-s, No Pre serve, 2-Dose Series (Pfizer) 09/23/2021 Pneumococcal Conjugate Vacci ne, 20-valent ([id number]) 12/12/2023(Deferred: Patient Refused - Renee Duarte MD) [...] on file documented as of this encounter Last Filed Vital Signs Vital Sign Reading Time Taken Comments Blood Pressure 112/78 04/02/2024 9:00 AM EDT Man ual Pulse 58 04/02/2024 9:00 AM EDT Temperature 36.3 C (97.3 F) 04/02/2024 9:00 AM ED T Respiratory Rate 16 04/02/2024 9:00 AM EDT Oxygen Saturation 96% 04/02/2024 9:00 AM EDT RA Inhaled Oxygen Concentration - - Weight 101.9 kg (224 lb 9.6 oz) 04/02/2024 9:00 AM EDT Height 182 cm (5' 11.65") 04/02/2024 9:00 AM EDT Body Mass Index 30.76 04/02/2024 9:00 AM EDT documented in this encounter Functional Status Functional Status Response [...] No 08/01/2021 documented as of this encounter Patient Instructions * Patient Instructions* Diego Pena CRNP - 04/02/2024 9:27 AM EDT For cancer-fatigue: Mongolian [place] Ginseng 1,000 mg by mouth at breakfast and 1,000 mg by mouth at lunch so it wont affect your sleep. documented in this encounter Progress Notes * Diego Pena CRNP - 04/02/2024 9:15 AM EDT Hematology/Oncology Outpatient Clinic Note [facility] [address] HEMATOLOGY/ONCOLOGY [facility] Name: John Brothers Date: 04/02/2024 CHIEF COMPLAINT: John Brothers is a 54 year old male patient of Dr. Foote here today for f/u visit. HISTORY OF PRESENT ILLNESS: Oncology history from patient chart, copied from Dr. Foote's previous note and updated as appropriate: Cancer Diagnosis: Metastatic lung cancer Cancer Staging Primary malignant neoplasm of left lower lobe of lung (HCC) Staging form: Lung, AJCC 8th Edition - Clinical stage from 04/20/2021: Stage IVB (cT4, cN3, cM1c) - Signed by Melissa Beal MD on 06/08/2021 Oncologic History : Chemotherapy Carboplatin/pemetrexed from 04/27-06/08/21 x 3 cycles followed by carboplatin/pemetrexed/pembrolizumabfrom 06/29/21 to 11/14/21 x 9 cycles ( had 6 cycles of pembrolizumab)- stopped secondary to COVID. Had 5 cycles of pembrolizumab with pemetrexed from 12/04- 03/01/22 Then had 3 cycles of pemetrexed 03/30-05/10/22 Followed by 05/31/22-05/09/23 - pemetrexed with pembrolizumab x 16 cycles Followed by 3 cycles of pemetrexed from 05/30/23- 09/12/23 Followed by 10/03-11/21/23 - had 3 cycles of paclitaxel with pembrolizumab 12/30/23- 02/13/24- paclitaxel single agent. Stopped pembrolizumab secondary to toxicities - GI _ N/V and ? Pneumonitis vs pneumonia Current therapy: paclitaxel Q 21 days C6D1 on 02/13/24 IMPRESSION/PLAN: Metastatic NSCLC Chemotherapy-induced neuropathy, grade 2 Fatigue Taxol 175mg/m2 C8 today. - Continue to monitor neuropathy and consider DR if worsening. Zometa every 6 weeks; due today. Discussed use of [place] Ginseng for treatment of fatigue. Timing of restaging scans as per Dr. Foote; message sent. Patient to follow-up in the clinic in 3 weeks with Velia Segundo PA-C as scheduled for clinical evaluation prior to treatment. INTERVAL HISTORY: John Brothers is a 54 year old male with a history as outlined above. Currently here for f/u visittoday. Presents to the clinic accompanied by his . Complains of fatigue. Notes intermittent neuropathy to feet; uncomfortable at times. Doing cold therapy for management. Not interested in further management at this time. Performance Status: ECOG 1 Current Outpatient Medications Medication Sig Dispense Refill Vitamin E 1000 UNIT Oral Capsule Take 1 Capsule by mouth in the morning. Ondansetron HCl 8 MG Oral Tablet Take 1 Tablet by mouth in the morning and 1 Tablet at noon and 1 Tablet before bedtime. 30 Tablet 3 Nitroglycerin 0.4 MG Sublingual Tablet Sublingual (Nitrostat) Place 1 Tablet under the tongue once as needed. As directed for chest pain Culturelle Probiotics Oral Tablet Chewable Take 1 Tablet by mouth in the morning. amLODIPine Besylate 2.5 MG Oral Tablet (Norvasc) Take 1 Tablet by mouth in the morning. 90 Tablet 3 Atorvastatin Calcium 40 MG Oral Tablet (Lipitor) Take 1 Tablet by mouth daily. 90 Tablet 3 Folic Acid 1 MG Oral Tablet Take 1 Tablet by mouth in the morning. 90 Tablet 3 Prochlorperazine Maleate 10 MG Oral Tablet (Compazine) Take 1 Tablet by mouth every 6 hours as needed for Nausea. 30 Tablet 3 ProAir HFA 108 (90 Base) MCG/ACT Inhalation Aerosol Solution Inhale 2 Puffs by mouth every 4 hours as needed for Wheezing or Shortness of Breath. 18 g 0 Furosemide 20 MG Oral Tablet (Lasix) Take 1 Tablet by mouth in the morning. 90 Tablet 3 dexAMETHasone 4 MG Oral Tablet (Decadron) Take 2 tabs in AM with food x 3 days AFTER chemo and as directed prior to chemo. 30 Tablet 0 OLANZapine 5 MG Oral Tablet (zyPREXA) Take 1 tab at bedtime starting the night of chemo x 4 nights.Repeat with each treatment. 30 Tablet 3 Enoxaparin Sodium 80 MG/0.8ML Injection Solution Prefilled Syringe (Lovenox) Inject 80 mg under theskin in the morning and 80 mg before bedtime. 48 mL 10 Topiramate 25 MG Oral Tablet (topAMAX) TAKE 1 TABLET NIGHTLY X 2 WEEKS THEN INCREASE TO 2 TABLETS NIGHTLY. 60 Tablet 1 Fluticasone Furoate-Vilanterol 100-25 MCG/ACT Inhalation Aerosol Powder Breath Activated (BREO ellipta) Inhale 1 Puff by mouth in the morning. 60 Blister Dosing Unit 2 Current Facility-Administered Medications Medication Dose Route Frequency Provider Last Rate Last Admin Albuterol Sulfate (Proventil) (5 MG/ML) 0.5% *conc* inhalation solution 2.5 mg 2.5 mg Nebulizer Wyatt Crow MD 2.5 mg at 02/12/24 0754 Albuterol Sulfate (Proventil) (2.5 MG/3ML) 0.083% inhalation solution 2.5 mg 2.5 mg Nebulizer PRN Wyatt Gallegos MD REVIEW OF SYSTEMS: See interval history OBJECTIVE: Filed Vitals: 04/02/24 0900 BP: 112/78 Pulse: 58 Resp: 16 Temp: 36.3 C (97.3 F) TempSrc: Tympanic SpO2: 96% Weight: 101.9 kg (224 lb 9.6 oz) Height: 1.82 m (5' 11.65") Wt Readings from Last 5 Encounters: 04/02/24 101.9 kg (224 lb 9.6 oz) 03/12/24 103 kg (227 lb 1.6 oz) 03/05/24 102.6 kg (226 lb 1.6 oz) 02/13/24 102.5 kg (225 lb 14.4 oz) 02/12/24 102.6 kg (226 lb 3.1 oz) Is the pt having any pain related to today's visit?: No (04/02/24 0904) PHYSICAL EXAM: General Appearance: Normal - Healthy appearing patient in no acute distress Lungs/Thorax: Normal - Clear to auscultation Heart: Normal - Regular rate and rhythm, normal S1, S2, no appreciable murmurs, rubs, gallops Abdomen: Normal - Soft, nontender, bowel sounds present, no appreciable hepatosplenomegaly, no palpable masses Neurologic: Normal - Grossly intact LABS: Results for orders placed or performed in visit on 04/02/24 COMPREHENSIVE METABOLIC PANEL Result Value Ref Range BUN 14 6 - 20 mg/dL Creatinine 0.9 0.6 - 1.2 mg/dL Estimated Glomerular Filtration Rate >90 >=60 mL/min Sodium 142 135 - 146 mmol/L Potassium 3.7 3.5 - 5.1 mmol/L Chloride 109 (H) 98 - 107 mmol/L CO2 24 22 - 32 mmol/L Anion Gap 9 7 - 15 mmol/L Glucose 99 70 - 120 mg/dL Albumin 4.0 3.8 - 5.0 g/dL AST 19 10 - 50 U/L Alkaline Phosphatase 82 35 - 130 U/L Bilirubin, Total 0.3 <=1.2 mg/dL Calcium 9.1 8.4 - 10.2 mg/dL Protein 6.8 6.0 - 8.3 g/dL ALT 33 10 - 50 U/L CBC Result Value Ref Range WBC 5.07 4.00 - 10.80 K/uL RBC 4.54 4.50 - 5.25 M/uL HGB 13.7 (L) 14.0 - 16.8 g/dL HCT 40.8 40.0 - 48.4 % MCV 89.9 82.0 - 99.5 fL MCH 30.2 27.0 - 34.0 pg MCHC 33.6 32.0 - 36.0 g/dL RDW 15.9 11.5 - 15.5 % PLT 271 140 - 400 K/uL MPV 10.5 6.6 - 11.1 fL nRBCs 0 <=0 /100 WBCs DIFFERENTIAL, AUTOMATED Result Value Ref Range WBC 5.07 4.00 - 10.80 K/uL Neutrophils % 57.7 40.0 - 75.0 % Lymphocytes % 29.0 18.0 - 42.0 % Monocytes % 9.1 1.0 - 11.0 % Eosinophils % 2.6 0.0 - 6.0 % Basophils % 1.0 0.0 - 2.0 % Immature Granulocytes % 0.6 0.0 - 2.0 % Absolute Neutrophils 2.93 1.80 - 7.70 K/uL Absolute Lymphocytes 1.47 1.00 - 4.80 K/ul Absolute Monocytes 0.46 0.00 - 1.10 K/uL Absolute Eosinophils 0.13 0.00 - 0.70 K/uL Absolute Basophils 0.05 0.00 - 0.20 K/uL Absolute Immature Granulocytes 0.03 0.00 - 0.20 K/uL *Note: Due to a large number of results and/or encounters for the requested time period, some results have not been displayed. A complete set of results can be found in Results Review. I had a discussion with John Brothers regarding the plan of care, treatment and other issues. Please, see top of note for IMPRESSION and PLAN. DENISE Ponce documented in this encounter Nursing Notes * Angelina Cortes MA - 04/02/2024 9:00 AM EDT Room 1 .Patient was instructed to not get up on the exam table/exam chair until directed and assisted by their provider; patient is to remain seated in the chair/ wheelchair/ exam table/ exam chair for fallprevention and safety reasons. Patient is aware to have assistance to step down off exam table/examchair with personnel. Patient voiced full comprehension of instructions. documented in this encounter Plan of Treatment Upcoming Encounters Date Type Department Care Team (Late st Contact Info) Description 04/08/2024 9:00 AM EDT Rehab Services Speech Therapy, [address] [address] Reginaldo Mendoza, STRAIGHTENING ROLL OPERATOR [address] [place] [address] 04/14/2024 10:30 AM EDT Laboratory Laboratory [facility] Center[address] [phone] [place], Lab Lock [address] [place] [address] 04/15/2024 6:15 AM EDT Anticoagulation Centralized Clinical Pharmacy Services, [place]cy Leal [address] [place] [address] [place] [address] [place] [address] 60 [facility] [place] [address] 04/23/2024 7:15 AM EDT Nurse Only Hematology Oncology [facility], [place] [address] [place] [address] [place], Nurse Lab Hem/Onc [address], [place] [phone] 04/23/2024 8:00 AM EDT Office Visit Hematology Oncology apper [facility], [place] [address] [place] [facility] [address] Velia Segundo PA-C [address] [place] [address] 04/23/2024 9:00 AM EDT Hem/Onc Treatment Hematology Oncology [facility], [place] [address] [place] [address] [place], [facility] 11 Hem/Onc [address] [place] [address] 05/06/2024 9:20 AM EDT Office Visit Neurology [facility] [address] [place] [address] Kathy Pryor PA-C [address] [place] [address] 08/31/2024 8:40 AM EST Office Visit Pulmonary Medicine, Health system 132 [facility] [place] [phone] Wyatt Gallegos MD [address] [place] [phone] Health Maintenance Due Date Last Done Comments [...] this encounter Medical Devices Implanted Type Area Transportation Worker Device Identifier Shelf Expiration Date Model / Serial / Lot Power Port 8fr Sngl Lumen Plas - [id number] Implanted:Qty: 1 on 04/24/2021 at [facility] CR BARD : PERIPHERAL VASCULAR [id number] 02/24/2022 [id number] / / [id number] Port Implant W/8f Poly Cath - [id number] Implanted:Qty: 1 on 10/15/2023 at [facility] CR BARD : PERIPHERAL VASCULAR [id number] 03/27/2025 [id number] / / [id number] documented as of this encounter Visit Diagnoses Diagnosis 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
--- OUTSIDE RECORDS SUMMARY | 2024-04-11 14:45 | External Medical Summary | Summary of Care ---
Author Name Unknown Organization [facility] Address [address] [place] [address] Phone [phone] Care Team Providers Care University Professor Name Role Phone Matthew Herrmann PA-C Primary Care Provider [phone] Reason for Visit * Reason Comments Treatment * Evaluate & Treat - Unlimited Visits (Within 10 days (routine)) - Pending Review Specialty Diagnoses / Procedures Referred By Yuli seay Referred To Contact Hematology/Oncology Diagnoses Malignant neoplasm of unspecified part of unspecified bronchus or lung (HCC) Yonathan Tomas CRNP [address] [place] [address] Referral ID Status Reason Start Date Expiration Date Visits Requested Visits Authorized [id number] Pending Review Specialty Services Required 11/21/2023 11/20/[phone] Encounter Details Date Type Department Care Team (Latest Contact Info) Description 02/13/2024 11:30 AM EDT Hem/Onc Treatment Hematology Oncology [facility], [place] [address] [place] [address] [place], [facility] 4 Hem/Onc [address] [place] [address] Chemotherapy adverse reaction, initial encounter*; Chemotherapy induced [...] (Pfizer) 09/23/2021 Pneumococcal Conjugate Vacci ne, 20-valent ([id number]) 12/12/2023(Deferred: Patient Refused - Renee Duarte MD) [...] 1:00 PM EDT Rehab Services Speech Therapy, [place] [address] [place] [address] Lisa Hairston, DRILLING FIELD PROFESSIONAL [address] [place] [address] 04/02/2024 8:15 AM EDT Nurse Only Hematology Oncology [address] [place] [address] [place], Nurse Lab Hem/Onc [address] [place] [address] 04/02/2024 9:00 AM EDT Office Visit Hematology Oncology [facility] [place] [address] [place] [address] Diego Pena CRNP [address] [place] [address] 04/02/2024 10:00 AM EDT Hem/Onc Treatment Hematology Oncology [facility], [place] [address], [place] [phone] [place], Chair 16 Hem/Onc [address] [place] [id number] 04/08/2024 9:00 AM EDT Rehab Services Speech Therapy, [place] [address] [place] [address] Reginaldo Mendoza, DRILLING FIELD PROFESSIONAL [address] [place] [address] 04/14/2024 10:30 AM EDT Laboratory Laboratory [facility] Service Center[address] [phone] [address] [address] 04/15/2024 6:15 AM EDT Anticoagulation Pharmacy Call Center WB 58-60 [facility] [place] [address] Cc[place], [facility] 58 60 [facility] [place] [address] 04/23/2024 7:15 AM EDT Nurse Only Hematology Oncology [facility], [place] [address] [place] [address] [place], Nurse Lab Hem/Onc [address] [place] [address] 04/23/2024 8:00 AM EDT Office Visit Hematology Oncology [facility] [place] [address] [place] [address] Velia Segundo PA-C [address] [place] [address] 04/23/2024 9:00 AM EDT Hem/Onc Treatment Hematology Oncology [facility] [place] [address], [place] [phone] [place], Chair 11 Hem/Onc [facility] [address] [place], [place] [phone] 05/06/2024 9:20 AM EDT Office Visit Neurology [facility] 200 [facility] [address] Kathy Pryor PA-C 200 [facility] [address] 08/31/2024 8:40 AM EST Office Visit Pulmonary Medicine, [facility] 132 [facility] [place] [address] Wyatt Gallegos MD [address] [facility] [phone] Scheduled Orders Name Type Priority Associated Diagnoses [...] this encounter Medical Devices Implanted Type Area Oil Scout Device Identifier Shelf Expiration Date Model / Serial / Lot Power Port 8fr Sngl Lumen Plas - [id number] Implanted:Qty: 1 on 04/24/2021 at [facility] CR BARD : PERIPHERAL VASCULAR [id number] 02/24/2022 [id number] / / [id number] Port Implant W/8f Poly Cath - [id number] Implanted:Qty: 1 on 10/15/2023 at [facility] CR BARD : PERIPHERAL VASCULAR [id number] 03/27/2025 [id number] / / [id number] documented as of this encounter Results * (ABNORMAL) COMPREHENSIVE METABOLIC PANEL (03/12/2024 7:49 AM EDT) Pathologist [facility] BUN 12 6 - 20 mg/dL 03/12/2024 [...] Foote MD LAB BLOOD ORDERAB LES LABORATORY [facility] [address] [place] [address] * TSH WITH FREE T4 IF INDICATED (03/12/2024 7:49 AM EDT) TSH 2.69 0.27 - 4.20 uIU/mL 03/12/2024 10:03 AM EDT LABORATORY [facility] Blood Blood sample taken from central line / Unknown Central Line / Unknown 03/12/2024 7:49 AM EDT 03/12/2024 8:00 AM EDT Kerri Foote MD LAB BLOOD ORDERAB LES LABORATORY [facility] [address] [place] [address] documented in this encounter Visit Diagnoses Diagnosis [...] Advance Directives occurred with: Patient Care Teams University Professor Relationship Specialty Start Date End Date Matthew Herrmann PA-C [address] [place], [place] [address]TG white [address] PCP - General Physician Isobutylene Operator Chief 03/22/21 documented as of this encounter
--- OUTSIDE RECORDS SUMMARY | 2024-04-11 14:45 | External Medical Summary ---
Author Name Unknown Address Unknown Organization K01:[place] [address] [facility] [address] Laboratory Report Ordering Provider Test Date Status JOSE STEELE 03/12/2024 07:49:02 Final Observation Date Value Abnormality Reference (Units ) Status SYNC LEUKOCYTES IN BLOOD BY AUTOMATED COUNT 03/12/2024 07:49:02 5.42 4.00-10.80 (K/uL) Final Segs 03/12/2024 07:49:02 59.2 40.0-75.0 (%) Final Lymphs % 03/12/2024 07:49:02 28.0 18.0-42.0 (%) Final Monos 03/12/2024 07:49:02 8.7 1.0-11.0 (%) Final Eosinophils 03/12/2024 07:49:02 3.0 0.0-6.0 (%) Final Basos 03/12/2024 07:49:02 0.7 0.0-2.0 (%) Final Immature Granulocyte, Percent 03/12/2024 07:49:02 0.4 0.0-2.0 (%) Final Absolute Segs 03/12/2024 07:49:02 3.21 1.80-7.70 (K/uL) Final Lymphs, absolute 03/12/2024 07:49:02 1.52 1.00-4.80 (K/ul) Final Monos, Abs 03/12/2024 07:49:02 0.47 0.00-1.10 (K/uL) Final Eos, Abs 03/12/2024 07:49:02 0.16 0.00-0.70 (K/uL) Final Basos, Abs 03/12/2024 07:49:02 0.04 0.00-0.20 (K/uL) Final Immature Granulocytes, Number 03/12/2024 07:49:02 0.02 0.00-0.20 (K/uL) Final Performing Location [facility] - [address] [place] [address]
--- OUTSIDE RECORDS SUMMARY | 2024-04-11 14:45 | External Medical Summary ---
Author Name Unknown Address Unknown Organization K01:[facility] [place] - [address] [place] [place] [address] Laboratory Report Ordering Provider Test Date Status JOSE STEELE 03/12/2024 07:49:02 Final Observation Date Value Abnormality Reference (Units ) Status TSH 03/12/2024 07:49:02 2.69 0.27-4.20 (uIU/mL) Final Performing Location [facility] - [address] [place] [address]
--- OUTSIDE RECORDS SUMMARY | 2024-04-11 14:45 | External Medical Summary | Summary of Care ---
Author Name Unknown Organization [facility] Address [address] [place] [address] Phone [phone] Care Team Providers Care Right Of Way Cutter Name Role Phone Matthew Herrmann PA-C Primary Care Provider [phone] Reason for Visit * Reason Onset Date Comments Medication Refill 03/12/2024 Encounter Details Date Type Department Care Team (Late st Contact Info) Description 03/12/2024 Refill Hematology Oncology [facility] [address] [place] [address] Ivette Foote MD [address] [place] [address] Chemotherapy induced nausea and vomiting*; History of pulmonary embolism Allergies Active Allergy Reactions Criticality Noted Date Comments Carboplatin High 11/14/2021 Dyspnea, chest pain, hypoxia, sore throat, edema throat, flushing, mild hypotension Isosorbide Nitrate Other (Please comment) 07/22/2023 Headache documented as of this encounter (statuses as of 03/12/2024) Medications Medication Sig Dispensed Refills Start Date End Date Status Vitamin E 1000 UNIT Oral Capsule Take 1 Capsule by mouth in the morning. 0 Active Ondansetron HCl 8 MG Oral TabletIndications:C hemotherapy induced nausea and vomiting Take 1 Tablet by mouth in the morning and 1 Tablet at noon and 1 Tablet before bedtime. 30 Tablet 3 05/09/2023 Active Nitroglycerin 0.4 MG Sublingual Tablet Sublingual (Nitrostat) Place 1 Tablet under the tongue once as needed. As directed for chest pain 0 Active Culturelle Probiotics Oral Tablet Chewable Take 1 Tablet by mouth in the morning. 0 05/12/2023 Active amLODIPine Besylate 2.5 MG Oral [...] the morning. 90 Tablet 3 09/03/2023 Active Topiramate 25 MG Oral Tablet (Topamax) Take 1 tablet nightly x 2 weeks then increase to 2 tablets nightly. 60 Tablet 5 09/10/2023 Active Prochlorperazine Maleate 10 MG Oral Tablet (Compazine)Indicati ons:Chemotherapy induced nausea and vomiting Take 1 Tablet by mouth every 6 hours as needed for Nausea. 30 Tablet 3 09/22/2023 Active ProAir HFA 108 (90 Base) MCG/ACT Inhalation Aerosol SolutionIndications :LRTI (lower respiratory tract infection) Inhale 2 Puffs by mouth every 4 hours as needed for Wheezing or Shortness of Breath. 18 g 0 10/29/2023 Active Furosemide 20 MG Oral Tablet (Lasix)Indications: Generalized edema due to fluid overload Take 1 Tablet by mouth in the morning. 90 Tablet 3 12/30/2023 Active Fluticasone Furoate-Vilanterol 100-25 MCG/ACT Inhalation Aerosol Powder Breath Activated (BREO ellipta) Inhale 1 Puff by mouth in the morning. 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 30 Tablet 0 01/23/2024 Active OLANZapine 5 MG Oral Tablet [...] before bedtime. 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 Repeat with each treatment. 30 Tablet 3 09/30/2023 4 Discontinue d(Refill) Enoxaparin Sodium 80 MG/0.8ML Injection Solution Prefilled Syringe (Lovenox)Indication s:History of pulmonary embolism Inject 80 mg under the skin in the morning and 80 mg before bedtime. 48 mL 10 02/24/2024 4 Discontinue d(Refill) Hospital, Clinic, or Other [...] as of this encounter (statuses as of 03/12/2024) Active Problems Problem Noted Date Diagnosed Date [...] as of this encounter (statuses as of 03/12/2024) Resolved Problems Problem Noted Date Diagnosed Date Resolved Date MSSA bacteremia 08/01/2021 08/07/2021 Sepsis 08/01/2021 08/07/2021 COPD, group B, by GOLD 2017 classification 05/08/2021 06/21/2021 Overview: Per COPD GOLD Classification Obstructive lung disease 04/10/2021 Overview: Per COPD GOLD Classification documented as of this encounter (statuses as of 03/12/2024) Immunizations Name Administration Dates Next Due COVID-19 mRNA, LNP-s, No Pre serve, 2-Dose Series (GoGo Tech) 09/23/2021 Pneumococcal Conjugate Vacci ne, 20-valent ([id number]) 12/12/2023(Deferred: Patient Refused - Renee Duarte MD) [...] encounter Miscellaneous Notes * Telephone Encounter - Ivette Foote MD - 03/12/2024 10:30 AM EDTSigned Prescriptions: Disp Refills OLANZapine 5 MG Oral Tablet (zyPREXA) 30 Tab*3 Sig: Take 1 tab at bedtime starting the night of chemo x 4 nights. Repeat with each treatment.Authorizing Provider: IVETTE FOOTE Enoxaparin Sodium 80 MG/0.8ML Injection So*48 mL 10 Sig: Inject 80 mg under theskin in the morning and 80 mg before bedtime.Authorizing Provider: IVETTE FOOTE documented in this encounter Plan of Treatment Upcoming Encounters Date Type Department Care Team (Late st Contact Info) Description 03/17/2024 9:00 AM EDT Rehab Services Speech [address] [address] Lisa Hairston SLP [address] [place] [address] 03/24/2024 9:00 AM EDT Rehab Services Speech [address] [address] Lisa Hairston SLP [address] [place] [address] 04/01/2024 1:00 PM EDT Rehab Services Speech [address] [address] Lisa Hairston SLP [address] [place] [address] 04/02/2024 8:15 AM EDT Nurse Only Hematology Oncology [address] [address] [place], Nurse Lab Hem/Onc [address] [place] [address] 04/02/2024 9:00 AM EDT Office Visit Hematology Oncology [facility] [place], [place] [address] [place] [address] Diego Pena CRNP [address] [place] [address] 04/02/2024 10:00 AM EDT Hem/Onc Treatment Hematology Oncology [facility] [place], [place] [address] [place] [address] [place], Chair 16 Hem/Onc [address] [place] [address] 04/08/2024 9:00 AM EDT Rehab Services Speech Therapy, [address] [address] Reginaldo Mendoza, ORCHARD PRUNER [facility] [place] [address] 04/14/2024 10:30 AM EDT Laboratory [facility] [id number] [place], Lab [address] [address] 04/15/2024 6:15 AM EDT Anticoagulation Pharmacy Call Center [address] [place] [address] [facility], [facility] [address] [facility] [place] [address] 04/23/2024 7:15 AM EDT Nurse Only Hematology Oncology [facility] [place], [place] [address] [place] [address] [place], Nurse Lab Hem/Onc [address] [place] [address] 04/23/2024 8:00 AM EDT Office Visit Hematology Oncology [facility], [place], [place] [address] [place] [address] Velia Segundo PA-C [address] [place] [address] 04/23/2024 9:00 AM EDT Hem/Onc Treatment Hematology Oncology [facility] [place], [place] [address] [place] [address] [place], Chair 11 Hem/Onc [address] [place], [place] [id number] 05/06/2024 9:20 AM EDT Office Visit Neurology [facility] [address] [place] [address] Kathy Pryor PA-C [address] [place] [address] 08/31/2024 8:40 AM EST Office Visit Pulmonary Medicine, [facility] [address] [facility] [place] [address] Wyatt Gallegos MD [address] [facility] [phone] Health Maintenance Due Date Last Done Comments [...] this encounter Medical Devices Implanted Type Area Combo Welder Device Identifier Shelf Expiration Date Model / Serial / Lot Power Port 8fr Sngl Lumen Plas - [id number] Implanted:Qty: 1 on 04/24/2021 at [facility] : PERIPHERAL VASCULAR [id number] 02/24/2022 [id number] / / [id number] Port Implant W/8f Poly Cath - [id number] Implanted:Qty: 1 on 10/15/2023 at [facility] [employer] : PERIPHERAL VASCULAR [id number] 03/27/2025 [id number] / / [id number] documented as of this encounter Visit Diagnoses Diagnosis Chemotherapy induced nausea and vomiting- Primary Nausea with vomiting History of pulmonary embolism Personal history of pulmonary embolism documented in this encounter Advance Directives Latest Code Status on File Code Status Date Activated Date Inactivated Comments Full Code 12/04/2023 8:24 PM 12/12/2023 4:41 PM This o rder reflects the patients wishes and were consensually agreed upon. Question Answer Comments Discussion of Advance Directives occurred with: Patient Code Status History Code Status Date Activated Date Inactivated Comments Full Code 08/01/2021 12:18 AM 08/08/2021 12:10 PM Th is order reflects the patients wishes and were consensually agreed upon. Question Answer Comments Discussion of Advance Directives occurred with: Patient Does the patient have a Living Will? No Does the patient have Health Care Power of [employer]? No Full Code 05/23/2021 12:21 PM 05/24/2021 9:38 PM This order reflects the patients wishes and were consensually agreed upon. Question Answer Comments Discussion of Advance Directives occurred with: Patient Care Teams Right Of Way Cutter Relationship Specialty Start Date End Date Matthew Herrmann PA-C [address] [place], [place] [address] PCP - General Physician Washroom Operator 03/22/21 documented as of this encounter
--- OUTSIDE RECORDS SUMMARY | 2024-04-11 14:45 | External Medical Summary | Summary of Care ---
Author Name Unknown Organization [facility] Address [address] [place] [address] Phone [phone] Care Team Providers Care Home Fire Alarm Installer Name Role Phone Matthew Herrmann PA-C Primary Care Provider [phone] Reason for Visit * Reason Comments Follow Up * Evaluate & Treat - Unlimited Visits (Within 10 days (routine)) - Pending Review Specialty Diagnoses / Procedures Referred By Yuli seay Referred To Contact Hematology/Oncology Diagnoses Malignant neoplasm of unspecified part of unspecified bronchus or lung (HCC) Yonathan Tomas CRNP [address] [place] [address] Referral ID Status Reason Start Date Expiration Date Visits Requested Visits Authorized [id number] Pending Review Specialty Services Required 11/21/2023 11/20/[phone] Encounter Details Date Type Department Care Team (Latest Contact Info) Description 03/05/2024 10:00 AM EDT Office Visit Hematology Oncology [facility] [address] [place] [address] Kerri Foote MD [address] [place] [address] Malignant neoplasm of lower lobe, left bronchus or lung (HCC)*; History of pulmonary embolism; History of stroke; Nausea and vomiting, unspecified vomiting type; Neuropathy due to chemotherapeutic drug (HCC); Hypophosphatemia; Multiple subsegmental pulmonary emboli without acute cor pulmonale (HCC); 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 48 mL 10 4 03/12/20 24 Discontinued(Ref ill) Hospital, Clinic, or Other [...] as of this encounter (statuses as of 03/17/2024) Active Problems Problem Noted Date Diagnosed Date [...] as of this encounter (statuses as of 03/17/2024) Resolved Problems Problem Noted Date Diagnosed Date Resolved Date MSSA bacteremia 08/01/2021 08/07/2021 Sepsis 08/01/2021 08/07/2021 COPD, group B, by GOLD 2017 classification 05/08/2021 06/21/2021 Overview: Per COPD GOLD Classification Obstructive lung disease 04/10/2021 Overview: Per COPD GOLD Classification documented as of this encounter (statuses as of 03/17/2024) Immunizations Name Administration Dates Next Due COVID-19 mRNA, LNP-s, No Pre serve, 2-Dose Series (ALTHIA) 09/23/2021 Pneumococcal Conjugate Vacci ne, 20-valent ([id number]) 12/12/2023(Deferred: Patient Refused - Renee Duarte MD) Seasonal Influenza, PF, 6 M & above, IM , (FluLaval or Fluzone) 12/12/2023(Deferred: Patient Refused - Renee Duarte MD) documented as of this encounter Social History Tobacco Use Types Packs/Day Years Used Date Smoking Tobacco: Never Smokeless Tobacco: Never Tobacco Cessation:Counseling Given: Not Answered Alcohol Use Standard Drinks/Week Comments Not Currently [...] Sign Reading Time Taken Comments Blood Pressure 114/80 03/05/2024 10:20 AM EDT Pulse 71 03/05/2024 10:20 AM EDT Temperature 36.5 C (97.7 F) 03/05/2024 1 0:20 AM EDT Respiratory Rate 16 03/05/2024 10:2 0 AM EDT Oxygen Saturation 96% 03/05/2024 10: 20 AM EDT RA Inhaled Oxygen Concentration - - Weight 102.6 kg (226 lb 1.6 oz) 024 10:20 AM EDT Height 182 cm (5' 11.65") 03/05/2024 10 :20 AM EDT Body Mass Index 30.96 03/05/2024 10:20 AM EDT documented in this encounter Functional [...] (15 years old or older) No 08/01/20 Cognitive Status Response Date of Assessm ent Because of a physical, menta l, or emotional condition, do you have serious difficulty concentrating, remembering, or making decisions? (5 years old or older) No 08/01/2021 documented as of this encounter Progress Notes * Kerri Foote MD - 03/05/2024 10:25 AM EDT Hematology/Medical Oncology [facility] [place] [address] Outpatient Progress Note Data Source: Patient, Epic record. 03/05/2024 10:25 AM [facility] [id number] 54 year old Patient Encounter: HEMATOLOGY ONCOLOGY [facility] Assessment/Plan: Metastatic non-small cell lung cancer Stable disease. 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 No nausea or vomiting REVIEW OF SYSTEMS: General: No Fever, chills, night sweats, or weight loss. HEENT: No change in visual acuity, blurred or double vision. No epistaxis, facial pain, nasal discharge or change in hearing. Denies dysphagia, no muscosal ulceration, or sores noted. Cardiovascular: No chest pain, ALDRIDGE, or palpitations Respiratory: No shortness of breath, cough, hemoptysis, or pleuritic chest pain Gastrointestinal: No abdominal pain, nausea, vomiting, diarrhea, rectal pain or bleeding Genitourinary: Denies Hematuria or dysuria Musculoskeletal: No bone pain Skin: No skin rash or lesions noted Neurologic: No numbness, weakness, neuropathic pain or change in cognitive function Psychiatric: No vegetative signs of depression Endocrine: No symptoms of hypothyroidism or hyperglycemia Hematologic: No bleeding or lymph nodes noted As mentioned above, all of the systems were reviewed in full and are unremarkable. PHYSICAL EXAMINATION: General Appearance: Healthy appearing patient in no acute distress. ECOG: Performance Status 0 = 100% Normal Activity Ht 1.82 m (5' 11.65") | Wt 102.6 kg (226 lb 1.6 oz) | BMI 30.96 kg/m | BSA 2.28 m Vitals reviewed. HEENT: No oral or pharyngeal masses, ulceration or thrush noted, no sinus tenderness. Neck is supple with no thyromegaly or JVD noted. Lymph Nodes: No lymphadenopathy noted in the occipital, pre and post auricular, cervical, supra andinfraclavicular, axillary, epitrochlear, inguinal, and popliteal region. Lungs/Thorax: Clear to auscultation, no accessory muscles of respiration being used. Heart: Regular rate and rhythm, normal S1, S2, no appreciable murmurs, rubs, gallops Abdomen: Soft, nontender, bowel sounds present, no appreciable hepatosplenomegaly, no palpable masses Extremities: Good pulses bilaterally, no peripheral edema. Skin: Normal skin tone with no rash, petechiae, ecchymosis noted. Musculoskeletal: No pain on palpation over bony prominence, no edema, no evidence of gout, no jointor bony deformity Neurologic: Grossly intact LABS/IMAGING: Results for orders placed or performed in visit on 02/13/24 COMPREHENSIVE METABOLIC PANEL Result Value Ref Range BUN 11 6 - 20 mg/dL Creatinine 0.9 0.6 - 1.2 mg/dL Estimated Glomerular Filtration Rate >90 >=60 mL/min Sodium 143 135 - 146 mmol/L Potassium 3.7 3.5 - 5.1 mmol/L Chloride 108 (H) 98 - 107 mmol/L CO2 27 22 - 32 mmol/L Anion Gap 8 7 - 15 mmol/L Glucose 126 (H) 70 - 120 mg/dL Albumin 4.0 3.8 - 5.0 g/dL AST 24 10 - 50 U/L Alkaline Phosphatase 86 35 - 130 U/L Bilirubin, Total 0.4 <=1.2 mg/dL Calcium 9.2 8.4 - 10.2 mg/dL Protein 6.8 6.0 - 8.3 g/dL ALT 35 10 - 50 U/L CBC Result Value Ref Range WBC 5.26 4.00 - 10.80 K/uL RBC 4.54 4.50 - 5.25 M/uL HGB 14.2 14.0 - 16.8 g/dL HCT 41.9 40.0 - 48.4 % MCV 92.3 82.0 - 99.5 fL MCH 31.3 27.0 - 34.0 pg MCHC 33.9 32.0 - 36.0 g/dL RDW 15.0 11.5 - 15.5 % PLT 263 140 - 400 K/uL MPV 10.2 6.6 - 11.1 fL nRBCs 0 <=0 /100 WBCs DIFFERENTIAL, AUTOMATED Result Value Ref Range WBC 5.26 4.00 - 10.80 K/uL Neutrophils % 57.2 40.0 - 75.0 % Lymphocytes % 29.7 18.0 - 42.0 % Monocytes % 8.9 1.0 - 11.0 % Eosinophils % 2.7 0.0 - 6.0 % Basophils % 1.1 0.0 - 2.0 % Immature Granulocytes % 0.4 0.0 - 2.0 % Absolute Neutrophils 3.01 1.80 - 7.70 K/uL Absolute Lymphocytes 1.56 1.00 - 4.80 K/ul Absolute Monocytes 0.47 0.00 - 1.10 K/uL Absolute Eosinophils 0.14 0.00 - 0.70 K/uL Absolute Basophils 0.06 0.00 - 0.20 K/uL Absolute Immature Granulocytes 0.02 0.00 - 0.20 K/uL *Note: Due to a large number of results and/or encounters for the requested time period, some results have not been displayed. A complete set of results can be found in Results Review. CT CHEST/ABDOMEN/PELVIS WITH IV CONTRAST WITH ORAL CONTRAST Narrative: EXAM: EXAM: CT CHEST/ABDOMEN/PELVIS WITH IV CONTRAST WITH ORAL CONTRAST DATE TIME: 02/25/2024 - 02/25/2024 11:21 am HISTORY: 54 y/o M metastatic lung cancer, pneumonia TECHNIQUE: CT of the Chest, Abdomen and Pelvis was performed with intravenous contrast. COMPARISON: CT chest abdomen pelvis 12/02/2023. FINDINGS: CHEST: LUNGS AND LARGE AIRWAYS: Patent central airways. A left lower lobe nodule measures 2.6 x 1.1 cm, not significantly changed (5, 280). Previously reported scattered patchy/nodular opacities are overallimproving compared to the prior exam. A couple of sub 6 mm pulmonary nodules in the left upper lobeare new compared to the prior exam (series 5, images 164 and 174). PLEURA: No pleural effusion. VESSELS: Normal caliber thoracic aorta and main pulmonary artery. HEART: Heart is normal in size. No pericardial effusion. MEDIASTINUM AND GENOVEVA: No lymphadenopathy. CHEST WALL AND LOWER NECK: Right chest wall port terminates near the superior cavoatrial junction. ABDOMEN AND PELVIS: LIVER: A couple of subcentimeter hypodense hepatic foci are too small to characterize. BILE DUCTS: Normal caliber. GALLBLADDER: Within normal limits. SPLEEN: Within normal limits. PANCREAS: Within normal limits. ADRENALS: Within normal limits. KIDNEYS/URETERS: Symmetric renal enhancement. No focal renal lesion. No hydronephrosis. BLADDER: Within normal limits. REPRODUCTIVE ORGANS: Mildly enlarged prostate. BOWEL: No bowel obstruction.Appendix is normal. PERITONEUM: No ascites. VESSELS: Atherosclerotic changes. No abdominal aortic aneurysm. RETROPERITONEUM: Enlarged upper abdominal/retroperitoneal lymph nodes, similar to the prior exam. For reference, a the portacaval lymph node measures 1.5 cm in short axis, previously 1.4 cm, not significantly changed (5, 430). A peripancreatic lymph node measures 1.7 cm in short axis, previously 1.6 cm, not significantly changed (5, 399). A left para-aortic lymph node measures 10 mm in short axis, not significantly changed (5, 566). ABDOMINAL WALL: Small fat containing umbilical and right inguinal hernia. BONES: Degenerative changes of the spine. Grade 1 retrolisthesis of L4 on L5. Grade 1 anterolisthesis of L5 on S1. Bilateral pars defects at L5. Similar scattered osseous sclerotic lesions (for example in the C7 vertebral body). Impression: IMPRESSION: 1. A left lower lobe nodule measures 2.6 x 1.1 cm, not significantly changed. 2. Previously reported scattered patchy/nodular opacities are overall improving compared to the prior exam. 3. A couple of sub 6 mm pulmonary nodules in the left upper lobe are new compared to the prior exam. 4. Enlarged upper abdominal/retroperitoneal lymph nodes, similar to the prior exam. 5. Similar scattered osseous sclerotic lesions consistent with osseous metastases. Amount and/or Complexity of Data Reviewed with patient from past year Clinical lab tests: Ordered and reviewed Radiology tests: Ordered and reviewed Other medical tests: ordered and reviewed I spent a total of 60 minutes on the date of service in preparation, delivery, and documentation ofthe care provided to [facility]. See above for assessment and plan Dr eKrri Foote [facility], [id number] Fx: [phone] documented in this encounter Nursing Notes * Sarai Mark CNA - 03/05/2024 10:27 AM EDT Patient was instructed to not get up on the exam table/exam chair until directed and assisted by their provider; patient is to remain seated in the chair/ wheelchair/ exam table/ exam chair for fall prevention and safety reasons. Patient is aware to have assistance to step down off exam table/exam chair with personnel. Patient voiced full comprehension of instructions. Room 7 documented in this encounter Plan of Treatment Upcoming Encounters Date Type Department Care Team (Late st Contact Info) Description 03/24/2024 9:00 AM EDT Rehab Services Speech [address] [address] Lisa Hairston SLP [address] [place] [phone] 04/01/2024 1:00 PM EDT Rehab Services Speech [address] [address] Lisa Hairston SLP [address] [place] [phone] 04/02/2024 8:15 AM EDT Nurse Only Hematology Oncology [facility], [address] [address] [place], Nurse Lab Hem/Onc [address] [place] [phone] 04/02/2024 9:00 AM EDT Office Visit Hematology Oncology [facility], [address] [phone] Diego Pena, DENISE [address] [place] [address] [phone] 04/02/2024 10:00 AM EDT Hem/Onc Treatment Hematology Oncology [address] [address] [place], Chair 16 Hem/Onc [address] [place] [address] [phone] 04/08/2024 9:00 AM EDT Rehab Services Speech Therapy, [address] [address] Reginaldo Mendoza, ELECTRIC FRYING PAN REPAIRER [facility] [place] [address] 04/14/2024 10:30 AM EDT Laboratory Laboratory [facility] [phone] [address] [address] 04/15/2024 6:15 AM EDT Anticoagulation Pharmacy Call Center WB 58-60 [facility] [place] [address] [facility] 58 60 [facility] [place] [phone] 04/23/2024 7:15 AM EDT Nurse Only Hematology Oncology [facility], [address] [place] [address] [place], Nurse Lab Hem/Onc [facility] [place] [address] 04/23/2024 8:00 AM EDT Office Visit Hematology Oncology [facility], [place] [address] [place] [address] Velia Segundo PA-C [facility] [address] [place], [place] [phone] 04/23/2024 9:00 AM EDT Hem/Onc Treatment Hematology Oncology [facility], [place] [address] [place] [address] [place], Chair 11 Hem/Onc [address] [place] [phone] 05/06/2024 9:20 AM EDT Office Visit Neurology [facility] [address] [place] [address] Kathy Pryor PA-C [address] [place] [address] 08/31/2024 8:40 AM EST Office Visit Pulmonary Medicine, [facility] [address] [facility], [place] [phone] Wyatt Gallegos MD [address] [facility] [place] [phone] Health Maintenance Due Date Last Done Comments [...] this encounter Medical Devices Implanted Type Area Reed Worker Device Identifier Shelf Expiration Date Model / Serial / Lot Power Port 8fr Sngl Lumen Plas - [id number] Implanted:Qty: 1 on 04/24/2021 at [facility] [employer] : PERIPHERAL VASCULAR [id number] 02/24/2022 [id number] / / [id number] Port Implant W/8f Poly Cath - [id number] Implanted:Qty: 1 on 10/15/2023 at [facility] [employer] : PERIPHERAL VASCULAR [id number] 03/27/2025 [id number] / / [id number] documented as of this encounter Visit Diagnoses Diagnosis Malignant neoplasm of lower lobe, left bronchus or lung (HCC)- Primary History of pulmonary embolism Personal history of pulmonary embolism History of stroke Transient ischemic attack (TIA), and cerebral infarction without residual deficits Nausea and vomiting, unspecified vomiting type 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 Hypophosphatemia Disorders of phosphorus metabolism Multiple subsegmental pulmonary emboli without acute cor pulmonale (HCC) 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
--- OUTSIDE RECORDS SUMMARY | 2024-04-11 14:45 | External Medical Summary ---
Author Name Unknown Address Unknown Organization K01:[facility] - [address] [place] [address] Laboratory Report Ordering Provider Test Date Status JOSE STEELE 03/12/2024 07:49:02 Final Observation Date Value Abnormality Reference (Units ) Status WBC, Total 03/12/2024 07:49:02 5.42 4.00-10.80 (K/uL) Final RBC 03/12/2024 07:49:02 4.67 4.50-5.25 (M/uL) Final Hemoglobin 03/12/2024 07:49:02 14.1 14.0-16.8 (g/dL) Final HCT 03/12/2024 07:49:02 42.0 40.0-48.4 (%) Final MCV 03/12/2024 07:49:02 89.9 82.0-99.5 (fL) Final MCH 03/12/2024 07:49:02 30.2 27.0-34.0 (pg) Final MCHC 03/12/2024 07:49:02 33.6 32.0-36.0 (g/dL) Final RDW 03/12/2024 07:49:02 15.3 11.5-15.5 (%) Final Platelets 03/12/2024 07:49:02 269 140-400 (K/uL) Final MPV 03/12/2024 07:49:02 10.4 6.6-11.1 (fL) Final Nucleated erythrocytes/100 leukocytes [Ratio] in Blood by Automated count 03/12/2024 07:49:02 0 <=0 (/100 WBCs) Final Performing Location [facility] - [address] [place] [address]
--- OUTSIDE RECORDS SUMMARY | 2024-04-11 14:45 | External Medical Summary | Summary of Care ---
Author Name Unknown Organization [facility] Address [address] [facility] [address] Phone [phone] Care Team Providers Care Thoracic Medicine Physician Name Role Phone Matthew Herrmann PA-C Primary Care Provider [phone] [phone] Reason for Visit * Reason Comments eRx-Medication Refill Encounter Details Date Type Department Care Team (Late st Contact Info) Description 03/14/2024 Refill Neurology [facility] [place] [address] Angelina Harp PA-C [facility] [place] [address] Allergies Active Allergy Reactions Criticality Noted Date [...] 3 Active Folic Acid 1 MG Oral TabletIndications:N [...] 4 Active Furosemide 20 MG Oral Tablet (Lasix)Indications: Generalized edema due to fluid overload Take 1 Tablet by mouth in the morning. 90 Tablet 3 4 Active Fluticasone Furoate-Vilanterol 100-25 MCG/ACT Inhalation Aerosol Powder Breath Activated (BREO ellipta) Inhale 1 Puff by mouth in the morning. 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 30 Tablet 4 Active OLANZapine 5 MG Oral Tablet (zyPREXA)Indication s:History of pulmonary embolism,Chemothera py induced nausea and vomiting Take 1 tab at bedtime starting the night of chemo x 4 nights. Repeat with each treatment. 30 Tablet 3 4 Active Enoxaparin Sodium 80 MG/0.8ML Injection Solution Prefilled Syringe (Lovenox)Indication s:History of pulmonary embolism Inject 80 mg under the skin in the morning and 80 mg before bedtime. 48 mL 10 4 Active Topiramate 25 MG Oral Tablet (topAMAX) TAKE 1 TABLET NIGHTLY X 2 WEEKS THEN INCREASE TO 2 TABLETS NIGHTLY. 60 Tablet 1 4 Active Topiramate 25 MG Oral Tablet (Topamax) Take 1 tablet nightly x 2 weeks then increase to 2 tablets nightly. 60 Tablet 5 3 03/17/20 24 Discontinued Hospital, Clinic, or Other Facility Administered Medication [...] 2.5 mg NEBULIZER PRN 01/02/2024 01/01/2025 Act eilsa Albuterol Sulfate (Proventil) (2.5 MG/3ML) 0.083% inhalation [...] mRNA, LNP-s, No Pre serve, 2-Dose Series (Novavax AB) 09/23/2021 Pneumococcal Conjugate Vacci ne, 20-valent ([id number]) 12/12/2023(Deferred: Patient Refused - Renee Duarte MD) [...] encounter Miscellaneous Notes * Telephone Encounter - [facility] - 03/17/2024 11:39 AM EDT Signed Prescriptions: Disp Refills Topiramate 25 MG Oral Tablet (topAMAX) 60 Tab*1 Sig: TAKE 1 TABLET NIGHTLY X 2 WEEKS THEN INCREASE TO 2 TABLETS NIGHTLY.Authorizing Provider: Larissa HARP User: MYRTLE JEFFERSON * Telephone Encounter - [facility]rtle [facility] - 03/17/2024 11:38 AM EDT Refill authorized. Patient has upcoming OV. Thanks, Myrtle Jefferson, PharmD Clinical Pharmacist [facility](formerly telepharmacy) [phone] 03/17/2024, 11:38 AM * Telephone Encounter - Ankita Mejia - 03/14/2024 8:32 PM EDTPending Prescriptions: Disp Refills Topiramate 25 MG Oral Tablet [Pharmacy Med*60 Tab*5 Sig: Take 1 tablet nightly x 2 weeks then increase to 2 tablets nightly. * Telephone Encounter - Ankita Mejia - 03/14/2024 8:30 PM EDT Did you pend patient's preferred pharmacy and medication before forwarding?yes Pharmacy: [id number] [address] Pending Prescriptions: Disp Refills Topiramate 25 MG Oral Tablet (topAMAX) [P*60 Tab*5 Sig: TAKE 1 TABLET NIGHTLY X 2 WEEKS THEN INCREASE TO 2 TABLETS NIGHTLY. Last Visit: 10/30/2023 (in office), Visit date not found (telemedicine) Next Visit: 05/06/2024 If no future appointments scheduled, and last appointment is greater than a year ago, please schedule patient for a follow-up appointment Last date the medication was ordered: 09/10/2023 Is this request for a controlled substance?No Urine Drug Screen:No results found. However, due to the size of the patient record, not all encounters were searched. Please check Results Review for a complete set of results. Patient Phone Numbers Labs: Lab Results Component Value Date/Time CREAT 0.9 03/12/2024 07:49 AM CREAT 1.0 01/03/2017 10:13 AM POTASSIUM 3.8 03/12/2024 07:49 AM POTASSIUM 3.8 01/03/2017 10:13 AM TSH 2.69 03/12/2024 07:49 AM TSH 2.27 01/09/2019 12:02 PM LDLCALC 99 09/19/2021 09:57 AM LDLCALC 111 07/30/2013 10:05 AM ALT 33 03/12/2024 07:49 AM ALT 21 01/03/2017 10:13 AM HGBA1C 6.2 (H) 11/06/2023 12:26 PM HGBA1C 5.5 01/03/2017 10:13 AM documented in this encounter Plan of Treatment Upcoming Encounters Date Type Department Care Team (Late st Contact Info) Description 03/24/2024 9:00 AM EDT Rehab Services Speech [address] [address] Lisa Hairston, WIND TURBINE INSTALLER [address] [place] [address] 04/01/2024 1:00 PM EDT Rehab Services Speech [address] [address] Lisa Hairston, WIND TURBINE INSTALLER [address] [place] [address] 04/02/2024 8:15 AM EDT Nurse Only Hematology Oncology [facility], [place] [address] [place] [address] [place], Nurse Lab Hem/Onc [address] [place], [place] [phone] 04/02/2024 9:00 AM EDT Office Visit Hematology Oncology [facility], [address] [phone] Diego Pena CRNP [facility][note 3] [place] [address] 04/02/2024 10:00 AM EDT Hem/Onc Treatment Hematology Oncology [facility], [address] [phone] [place], Chair 16 Hem/Onc [address] [place] [id number] 04/08/2024 9:00 AM EDT Rehab Services Speech Therapy, [place] [phone] [place] [address] Reginaldo Mendoza, WIND TURBINE INSTALLER [address] [place] [address] [phone] 04/14/2024 10:30 AM EDT Laboratory [facility], [address] [phone] [address] 04/15/2024 6:15 AM EDT Anticoagulation Pharmacy Call Center [address] [place] [address] [facility] 58 [address] [place] [address] 04/23/2024 7:15 AM EDT Nurse Only Hematology Oncology [facility], [address] [phone] [place], Nurse Lab Hem/Onc [address] [place] [address] [phone] 04/23/2024 8:00 AM EDT Office Visit Hematology Oncology [facility], [address] [address] Velia Segundo PA-C [address] [place], [place] [phone] 04/23/2024 9:00 AM EDT Hem/Onc Treatment Hematology Oncology [facility], [place] [address] [place] [address] [place], Chair 11 Hem/Onc [address] [place], [place] [phone] 05/06/2024 9:20 AM EDT Office Visit Neurology [facility] [address] [place] [address] Kathy Pryor PA-C [address] [place] [address] 08/31/2024 8:40 AM EST Office Visit Pulmonary Medicine, [facility] [place] [phone] Wyatt Gallegos MD [address] [facility] [address] Health Maintenance Due Date Last Done Comments [...] shot) (Season Ended) 2024 HbA1c 11/06/2024 11/06/2023, 0705/2023, 09/19/2021, Additional history exists Colonoscopy 08/13/2029 08/13/2019, 08/13/2019 Colorectal Cancer Screening 08/13/2029 GARDASIL-HPV IMMUNIZATION SERIES Aged Out No longer eligible based on patient's age to complete this topic MENINGOCOCCAL (MENACTRA/MENVEO) Aged Out No longer eligible based on patient's age to complete this topic documented as of this encounter Medical Devices Implanted Type Area Self Rising Flour Mixer Device Identifier Shelf Expiration Date Model / Serial / Lot Power Port 8fr Sngl Lumen Plas - [id number] Implanted:Qty: 1 on 04/24/[address] [facility] CR BARD : PERIPHERAL VASCULAR [id number] 02/24/2022 [id number] / / [id number] Port Implant W/8f Poly Cath - [id number] Implanted:Qty: 1 on 10/15/[address] [facility] CR BARD : PERIPHERAL VASCULAR [id number] 03/27/2025 [id number] / / [id number] documented as of this encounter Advance Directives [...] Advance Directives occurred with: Patient Care Teams Thoracic Medicine Physician Relationship Specialty Start Date End Date Matthew Herrmann PA-C [address] [place] [address] PCP - General Physician Casing Man 03/22/21 documented as of this encounter
--- OUTSIDE RECORDS SUMMARY | 2024-04-11 14:45 | External Medical Summary | Summary of Care ---
Author Name Unknown Organization [facility] Address [address] [place] [address] Phone [phone] Care Team Providers Care Belt Operator Name Role Phone Matthew Herrmann PA-C Primary Care Provider [phone] Reason for Visit * Reason Comments Treatment * Evaluate & Treat - Unlimited Visits (Within 10 days (routine)) - Pending Review Specialty Diagnoses / Procedures Referred By Yuli seay Referred To Contact Hematology/Oncology Diagnoses Malignant neoplasm of unspecified part of unspecified bronchus or lung (HCC) Yonathan Tomas CRNP [address] [place] [address] Referral ID Status Reason Start Date Expiration Date Visits Requested Visits Authorized [id number] Pending Review Specialty Services Required 11/21/2023 11/20/[phone] Encounter Details Date Type Department Care Team (Latest Contact Info) Description 02/13/2024 11:30 AM EDT Hem/Onc Treatment Hematology Oncology [facility], [place] [address] [place] [address] [place], [facility] 4 Hem/Onc [address] [place] [address] Chemotherapy adverse reaction, initial encounter*; Chemotherapy induced [...] (Pfizer) 09/23/2021 Pneumococcal Conjugate Vacci ne, 20-valent ([id number]) 12/12/2023(Deferred: Patient Refused - Renee Duarte MD) [...] 1:00 PM EDT Rehab Services Speech Therapy, [place] [address] [place] [address] Lisa Hairston, SADDLE MECHANIC [address] [place] [address] 04/02/2024 8:15 AM EDT Nurse Only Hematology Oncology [address] [place] [address] [place], Nurse Lab Hem/Onc [address] [place] [address] 04/02/2024 9:00 AM EDT Office Visit Hematology Oncology [facility], [place] [address] [place] [address] Diego Pena CRNP [address] [place] [address] 04/02/2024 10:00 AM EDT Hem/Onc Treatment Hematology Oncology [facility], [place] [address] [place], [place] [phone] [place], Chair 16 Hem/Onc [address] [place] [address] [phone] 04/08/2024 9:00 AM EDT Rehab Services Speech Therapy, [place] [address] [place] [address] Reginaldo Mendoza, SADDLE MECHANIC [address] [place] [address] 04/14/2024 10:30 AM EDT Laboratory Laboratory [facility] [phone] [address] [address] 04/15/2024 6:15 AM EDT Anticoagulation Pharmacy Call Center WB [address] [facility] [place] [address] [facility], [facility] 58 60 [facility] [place] [address] 04/23/2024 7:15 AM EDT Nurse Only Hematology Oncology [facility], [place] [address] [place] [address] [place], Nurse Lab Hem/Onc [address] [place] [address] 04/23/2024 8:00 AM EDT Office Visit Hematology Oncology [facility], [place] [address] [place] [address] Velia Segundo PA-C [address] [place] [address] 04/23/2024 9:00 AM EDT Hem/Onc Treatment Hematology Oncology [facility], [place] [address] [place], [place] [phone] [place], Chair 11 Hem/Onc [facility] [address] [place], [place] [phone] 05/06/2024 9:20 AM EDT Office Visit Neurology [facility] 200 [facility] [place] [address] Kathy Pryor PA-C 200 [facility] [place] [address] 08/31/2024 8:40 AM EST Office Visit Pulmonary Medicine, [facility] 132 [facility] [place] [address] Wyatt Gallegos MD [address] [facility] [phone] Scheduled Orders Name Type Priority Associated Diagnoses [...] this encounter Medical Devices Implanted Type Area Proof Press Operator Device Identifier Shelf Expiration Date Model / Serial / Lot Power Port 8fr Sngl Lumen Plas - [id number] Implanted:Qty: 1 on 04/24/2021 at [facility] CR BARD : PERIPHERAL VASCULAR [id number] 02/24/2022 [id number] / / [id number] Port Implant W/8f Poly Cath - [id number] Implanted:Qty: 1 on 10/15/2023 at [facility] CR BARD : PERIPHERAL VASCULAR [id number] 03/27/2025 [id number] / / [id number] documented as of this encounter Results * (ABNORMAL) COMPREHENSIVE METABOLIC PANEL (03/12/2024 7:49 AM EDT) Pathologist [facility] BUN 12 6 - 20 mg/dL 03/12/2024 [...] Foote MD LAB BLOOD ORDERAB LES LABORATORY [facility] [address] [place] [address] * TSH WITH FREE T4 IF INDICATED (03/12/2024 7:49 AM EDT) TSH 2.69 0.27 - 4.20 uIU/mL 03/12/2024 10:03 AM EDT LABORATORY [facility] Blood Blood sample taken from central line / Unknown Central Line / Unknown 03/12/2024 7:49 AM EDT 03/12/2024 8:00 AM EDT Kerri Foote MD LAB BLOOD ORDERAB LES LABORATORY [facility] [address] [place] [address] documented in this encounter Visit Diagnoses Diagnosis [...] 20 mg 20 mg, Oral, ONCE, On Foe 02/13/24 at [...] Advance Directives occurred with: Patient Care Teams Belt Operator Relationship Specialty Start Date End Date Matthew Herrmann PA-C [address] [place], [place] [address] [phone] PCP - General Physician Proofreader 03/22/21 documented as of this encounter
--- OUTSIDE RECORDS SUMMARY | 2024-04-11 14:45 | External Medical Summary | Summary of Care ---
Author Name Unknown Organization [facility] Address [address] [place] [address] Phone [phone] Care Team Providers Care Network Strategist Name Role Phone Matthew Herrmann PA-C Primary Care Provider +1 -[phone] Reason for Visit * Reason Comments dysphagia * Evaluate & Treat - Unlimited Visits (Within 10 days (routine)) - Pending Review Specialty Diagnoses / Procedures Referred By Yuli seay Referred To Contact Speech Pathology / Speech Pathology Diagnoses Cerebral infarction, unspecified (HCC) Yonathan Tomas CRNP [address] [place] [address] [address] Referral ID Status Reason Start Date Expiration Date Visits Requested Visits Authorized [id number] Pending Review Specialty Services Required 01/21/2024 07/19/2024 15 15 Encounter Details Date Type Department Care Team (Latest Contact Info) Description 03/17/2024 9:00 AM EDT Rehab Services Speech Therapy, [address] [address] Lisa Hairston, STAND [place] [address] [place] [address] Cerebral infarction, unspecified mechanism (HCC)*; Dysphagia, unspecified type Allergies Active Allergy Reactions Criticality Noted Date Comments Carboplatin High 11/14/2021 Dyspnea, chest pain, hypoxia, sore throat, edema throat, flushing, mild hypotension Isosorbide Nitrate Other (Please comment) 07/22/2023 Headache documented as of this encounter (statuses as of 03/19/2024) Medications Medication Sig Dispensed Refills Start Date [...] as of this encounter (statuses as of 03/19/2024) Active Problems Problem Noted Date Diagnosed Date [...] as of this encounter (statuses as of 03/19/2024) Resolved Problems Problem Noted Date Diagnosed Date Resolved Date MSSA bacteremia 08/01/2021 08/07/2021 Sepsis 08/01/2021 08/07/2021 COPD, group B, by GOLD 2017 classification 05/08/2021 06/21/2021 Overview: Per COPD GOLD Classification Obstructive lung disease 04/10/2021 Overview: Per COPD GOLD Classification documented as of this encounter (statuses as of 03/19/2024) Immunizations Name Administration Dates Next Due COVID-19 mRNA, LNP-s, No Pre serve, 2-Dose Series (SABIA) 09/23/2021 Pneumococcal Conjugate Vacci ne, 20-valent ([id number]) 12/12/2023(Deferred: Patient Refused - Renee Duarte MD) [...] this encounter Progress Notes * Lisa Hairston, STAND [place] - 03/19/2024 8:15 AM EDT OUTPATIENT REHABILITATION SPEECH-LANGUAGE PATHOLOGY DAILY PROGRESS NOTE Speech Therapy, [facility] [address] [facility] [address] Patient Name: John Brothers Date: 03/17/2024 Time: [id number] Plan of Care Expiration Date: 05/19/2024 Visit Number: 5 of 15 Dysphagia/ Communication diagnosis: Cerebral infarction, unspecified mechanism (HCC) Subjective: John seen in speech office with his present. Focus of this session was dysphagia. Short Term Communication Goals: John will name 15 category members in a timed 1 minute period to increase overall naming/thought formulation. Comments: Not targeted today. Previously: Using visualization John generated 12 category members in 1 minute. There was evidence of categorization within the category suggestive of improved thought organization. He rates this activity at moderate difficulty level and found closing his eyes to be beneficial. John will utilize compensatory memory strategies independently at 90% of opportunities given to recall detail for completion of IADL tasks. Comment: John indicated he used internal memory strategy visualization although it was not useful.With further analysis we determined that attending to the information initially was a potential barrier to successful use of the strategy. Short Term Dysphagia Goals: 1) John will utilize compensatory swallowing strategies to minimize signs and symptoms of dysphagia to less than 10% of trials. Comments: John used double swallow and small single sips with review and verbal cues free of overtsigns and symptoms of aspiration/penetration. With large consecutive drinking from the bottle Johnhad moderate coughing. Advised John and to focus on rate and small bolus size. 2) John will improve pharyngeal stage function [...] minutes/session x 10 week(s) Lisa Hairston MS, CCC-STAND [place] 03/17/2024 documented in this encounter Plan of Treatment Upcoming Encounters Date Type Department Care Team (Late st Contact Info) Description 03/24/2024 9:00 AM EDT Rehab Services Speech [facility], [address] [address] Lisa Hairston, STAND [place] [address] [address] 04/01/2024 1:00 PM EDT Rehab Services Speech [facility], [address] [address] Lisa Hairston, STAND [place] [address] [address] 04/02/2024 8:15 AM EDT Nurse Only Hematology Oncology [facility], [address] [address] [place], Nurse Lab Hem/Onc [address] [place] [address] 04/02/2024 9:00 AM EDT Office Visit Hematology Oncology [facility], [address] [phone] Diego Pena [place] [address] 04/02/2024 10:00 AM EDT Hem/Onc Treatment Hematology Oncology [facility], [address] [address] [place], Chair 16 Hem/Onc [address] [place] [address] 04/08/2024 9:00 AM EDT Rehab Services Speech [facility], [address] [address] Reginaldo Mendoza, STAND [place] [address] [place] [address] 04/14/2024 10:30 AM EDT Laboratory Laboratory [facility], [address] [address] [place], Lab Lock [address] [place] [address] 04/15/2024 6:15 AM EDT Anticoagulation Pharmacy Call Center [address] [place] [address] Cc[address], [facility] [place] [place] [address] [place] [address] 04/23/2024 7:15 AM EDT Nurse Only Hematology Oncology [place] [address] [place], [place] [phone] [place], Nurse Lab Hem/[place]c [place] [address] 04/23/2024 8:00 AM EDT Office Visit Hematology Oncology [place] [address] [place] [address] Velia Segundo PA-C [address] [place], [place] [phone] 04/23/2024 9:00 AM EDT Hem/Onc Treatment Hematology Oncology [facility] [address] [place] [address] [place], Chair 11 Hem/Onc [address] [place], [place] [phone] 05/06/2024 9:20 AM EDT Office Visit Neurology [facility] [address] [place] [address] [address] Kathy Pryor PA-C [address] [address] 08/31/2024 8:40 AM EST Office Visit Pulmonary Medicine, [facility] [address] [place] [address] Wyatt Gallegos MD [address] [place] [address] Health Maintenance Due Date Last Done [...] this encounter Medical Devices Implanted Type Area Foreign Student Adviser Device Identifier Shelf Expiration Date Model / Serial / Lot Power Port 8fr Sngl Lumen Plas - [id number] Implanted:Qty: 1 on 04/24/2021 at [facility] CR BARD : PERIPHERAL VASCULAR [id number] 02/24/2022 [id number] / / [id number] Port Implant W/8f Poly Cath - [id number] Implanted:Qty: 1 on 10/15/2023 at [facility] CR BARD : PERIPHERAL VASCULAR [id number] 03/27/2025 [id number] / / [id number] documented as of this encounter Visit Diagnoses [...] Advance Directives occurred with: Patient Care Teams Network Strategist Relationship Specialty Start Date End Date Matthew Herrmann PA-C [address] [place] [address] [place] [phone] PCP - General Physician Route Sales Specialist 03/22/21 documented as of this encounter
--- OUTSIDE RECORDS SUMMARY | 2024-04-11 14:45 | External Medical Summary | Summary of Care ---
Author Name Unknown Organization [facility] Address [address] [place] [address] Phone [phone] Care Team Providers Care Academic Counselor Name Role Phone Matthew Herrmann PA-C Primary Care Provider [phone] Encounter Details Date Type Department Care Team (Late st Contact Info) Description 03/12/2024 7:30 AM EDT Nurse Only Hematology Oncology [facility] ([facility] [address] [place] [address] [facility], Nurse Lab Hem/Onc [address] [place] [address] Arrived Allergies Active Allergy Reactions Criticality Noted [...] 0 Active Ondansetron HCl 8 MG Oral TabletIndications:Ch [...] for Nausea. 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 Repeat with each treatment. 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 30 Tablet 0 01/23/2024 Active Enoxaparin Sodium 80 MG/0.8ML Injection Solution Prefilled Syringe (Lovenox)Indications :History of pulmonary embolism Inject 80 mg under the skin in the morning and 80 mg before bedtime. 48 mL 10 02/24/2024 Active Hospital, Clinic, or Other Facility Administered [...] mRNA, LNP-s, No Pre serve, 2-Dose Series ([email or web address]) 09/23/2021 Pneumococcal Conjugate Vacci ne, 20-valent ([id number]) 12/12/2023(Deferred: Patient Refused - Renee Duarte MD) [...] 03/17/2024 9:00 AM EDT Rehab Services Speech [address] [address] Lisa Hairston, DAWOOD [address] [address] 03/24/2024 9:00 AM EDT Rehab Services Speech [address] [address] Lisa Hairston, DAWOOD [address] [address] 04/01/2024 1:00 PM EDT Rehab Services Speech Therapy, [address] [address] Lisa Hairston, RADIOLOGY CLERK [address] [place] [address] 04/02/2024 8:15 AM EDT Nurse Only Hematology Oncology [facility], [address] [address] [facility], Nurse Lab Hem/Onc [address] [place] [address] 04/02/2024 9:00 AM EDT Office Visit Hematology Oncology [facility], [address] [phone] Diego Pena CRNP [address] [place] [address] 04/02/2024 10:00 AM EDT Hem/Onc Treatment Hematology Oncology [facility], [address] [address] [facility], Chair 16 Hem/Onc [address] [place] [address] 04/08/2024 9:00 AM EDT Rehab Services Speech Therapy, [address] [address] Reginaldo Mendoza, RADIOLOGY CLERK [address] [place] [address] 04/14/2024 10:30 AM EDT Laboratory [facility] [phone] [place], [address] [address] 04/15/2024 6:15 AM EDT Anticoagulation Pharmacy Call Center 5860 [facility] [place] [address] [facility] 58 60 [facility] [place] [address] 04/23/2024 7:15 AM EDT Nurse Only Hematology Oncology [facility], [place] [address] [place], [place] [phone] [facility], Nurse Lab Hem/Onc [facility] [address] [place], [place] [phone] 04/23/2024 8:00 AM EDT Office Visit Hematology Oncology [facility], [place] [address] [place] [address] Velia Segundo PA-C [facility] [address] [place], [place] [phone] 04/23/2024 9:00 AM EDT Hem/Onc Treatment Hematology Oncology [place] [address] [place] [address] [facility], Chair 11 Hem/Onc [facility] [place] [address] 05/06/2024 9:20 AM EDT Office Visit Neurology [facility] [place] [address] Kathy Pryor PA-C [facility] [place] [address] 08/31/2024 8:40 AM EST Office Visit Pulmonary Medicine, [facility] 132 [facility] [place] [phone] Wyatt Gallegos MD [address] [place] [phone] Pending Results Name Type Priority Associated Diagnoses Date /Time TSH WITH FREE T4 IF INDICATED Lab STAT Chemotherapy adverse reaction, initial encounter Chemotherapy induced nausea and vomiting Encounter for antineoplastic chemotherapy Malignant neoplasm of lower lobe, left bronchus or lung (HCC) 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) 03/12/2024 7:49 AM EDT COMPREHENSIVE METABOLIC PANEL Lab STAT Chemotherapy adverse reaction, initial encounter Chemotherapy induced nausea and vomiting Encounter for antineoplastic chemotherapy Malignant neoplasm of lower lobe, left bronchus or lung (HCC) 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) 03/12/2024 7:49 AM EDT Health Maintenance Due Date Last [...] this encounter Medical Devices Implanted Type Area Lead Welder Device Identifier Shelf Expiration Date Model / Serial / Lot Power Port 8fr Sngl Lumen Plas - [id number] Implanted:Qty: 1 on 04/24/2021 at [facility] CR BARD : PERIPHERAL VASCULAR [id number] 02/24/2022 [id number] / / [id number] Port Implant W/8f Poly Cath - [id number] Implanted:Qty: 1 on 10/15/2023 at [facility] CR BARD : PERIPHERAL VASCULAR [id number] 03/27/2025 [id number] / / [id number] documented as of this encounter Procedures Procedure Name Priority Date/Time Associated Diagnosis Comments DIFFERENTIAL, AUTOMATED STAT 03/12/2024 7:49 AM EDT Chemotherapy adverse reaction, initial encounter Chemotherapy induced nausea and vomiting Encounter for antineoplastic chemotherapy Malignant neoplasm of lower lobe, left bronchus or lung (HCC) 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) CBC STAT 03/12/2024 7:49 AM EDT Chemotherapy adverse reaction, initial encounter Chemotherapy induced nausea and vomiting Encounter for antineoplastic chemotherapy Malignant neoplasm of lower lobe, left bronchus or lung (HCC) 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) CBC STAT 03/12/2024 7:49 AM EDT Chemotherapy adverse reaction, initial encounter Chemotherapy induced nausea and vomiting Encounter for antineoplastic chemotherapy Malignant neoplasm of lower lobe, left bronchus or lung (HCC) 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) documented in this encounter Results * DIFFERENTIAL, AUTOMATED (03/12/2024 7:49 AM EDT) WBC 5.42 4.00 - 10.80 K/uL 03/12/2024 7:54 AM EDT [facility] Neutrophils % 59.2 40.0 - 75.0 % 03/12/2024 7:54 AM EDT [facility] Lymphocytes % 28.0 18.0 - 42.0 % 03/12/2024 7:54 AM EDT [facility] Monocytes % 8.7 1.0 - 11.0 % 03/12/2024 7:54 AM EDT [facility] Eosinophils % 3.0 0.0 - 6.0 % 03/12/2024 7:54 AM EDT [facility] Basophils % 0.7 0.0 - 2.0 % 03/12/2024 7:54 AM EDT [facility] Immature Granulocytes % 0.4 0.0 - 2.0 % 03/12/2024 7:54 AM EDT [facility] Absolute Neutrophils 3.21 1.80 - 7.70 K/uL 03/12/2024 7:54 AM EDT [facility] Absolute Lymphocytes 1.52 1.00 - 4.80 K/ul 03/12/2024 7:54 AM EDT [facility] Absolute Monocytes 0.47 0.00 - 1.10 K/uL 03/12/2024 7:54 AM EDT [facility] Absolute Eosinophils 0.16 0.00 - 0.70 K/uL 03/12/2024 7:54 AM EDT [facility] Absolute Basophils 0.04 0.00 - 0.20 K/uL 03/12/2024 7:54 AM EDT [facility] Absolute Immature Granulocytes 0.02 0.00 - 0.20 K/uL 03/12/2024 7:54 AM EDT [facility] Blood Blood sample taken from central line / Unknown Central Line / Unknown 03/12/2024 7:49 AM EDT 03/12/2024 7:52 AM EDT Kerri Foote MD LAB BLOOD ORDERAB LES [facility] [address] [place] [address] * CBC (03/12/2024 7:49 AM EDT) WBC 5.42 4.00 - 10.80 K/uL 03/12/2024 7:54 AM EDT [facility] RBC 4.67 4.50 - 5.25 M/uL 03/12/2024 7:54 AM EDT [facility] HGB 14.1 14.0 - 16.8 g/dL 03/12/2024 7:54 AM EDT [facility] HCT 42.0 40.0 - 48.4 % 03/12/2024 7:54 AM EDT [facility] MCV 89.9 82.0 - 99.5 fL 03/12/2024 7:54 AM EDT [facility] MCH 30.2 27.0 - 34.0 pg 03/12/2024 7:54 AM EDT [facility] MCHC 33.6 32.0 - 36.0 g/dL 03/12/2024 7:54 AM EDT [facility] RDW 15.3 11.5 - 15.5 % 03/12/2024 7:54 AM EDT [facility] PLT 269 140 - 400 K/uL 03/12/2024 7:54 AM EDT [facility] MPV 10.4 6.6 - 11.1 fL 03/12/2024 7:54 AM EDT [facility] nRBCs 0 <=0 /100 WBCs 03/12/2024 7:54 AM EDT [facility] Blood Blood sample taken from central line / Unknown Central Line / Unknown 03/12/2024 7:49 AM EDT 03/12/2024 7:52 AM EDT Kerri Foote MD LAB BLOOD ORDERAB LES [facility] [address] [place] [address] documented in this encounter Visit Diagnoses Diagnosis Chemotherapy adverse reaction, initial encounter- Primary Chemotherapy induced nausea and vomiting Nausea with vomiting Encounter for antineoplastic chemotherapy Malignant neoplasm of lower lobe, left bronchus or lung (HCC) 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 No Full Code 05/23/2021 12:21 PM 05/24/2021 9:38 PM This order reflects the patients wishes and were consensually agreed upon. Question Answer Comments Discussion of Advance Directives occurred with: Patient Care Teams Academic Counselor Relationship Specialty Start Date End Date Matthew Herrmann PA-C [address] [place] [phone] PCP - General Physician Vocational Director 03/22/21 documented as of this encounter
--- OUTSIDE RECORDS SUMMARY | 2024-04-11 14:45 | External Medical Summary | Summary of Care ---
Author Name Unknown Organization [facility] Address [address] [place] [address] Phone [phone] Care Team Providers Care Retail Training Manager Name Role Phone Matthew Herrmann PA-C Primary Care Provider [phone] Reason for Visit * Reason Comments dysphagia * Evaluate & Treat - Unlimited Visits (Within 10 days (routine)) - Pending Review Specialty Diagnoses / Procedures Referred By Yuli seay Referred To Contact Speech Pathology / Speech Pathology Diagnoses Cerebral infarction, unspecified (HCC) Yonathan Tomas CRNP [address] [place] [address] [address] Referral ID Status Reason Start Date Expiration Date Visits Requested Visits Authorized [id number] Pending Review Specialty Services Required 01/21/2024 07/19/2024 15 15 Encounter Details Date Type Department Care Team (Latest Contact Info) Description 03/17/2024 9:00 AM EDT Rehab Services Speech Therapy, [address] [address] Lisa Hairston, TRACK EQUIPMENT OPERATOR [address] [place] [phone] Cerebral infarction, unspecified mechanism (HCC)*; Dysphagia, [...] mRNA, LNP-s, No Pre serve, 2-Dose Series (Fuzz) 09/23/2021 Pneumococcal Conjugate Vacci ne, 20-valent ([id number]) 12/12/2023(Deferred: Patient Refused - Renee Duarte MD) [...] this encounter Progress Notes * Lisa Hairston, TRACK EQUIPMENT OPERATOR - 03/19/2024 8:15 AM EDT OUTPATIENT REHABILITATION SPEECH-LANGUAGE PATHOLOGY DAILY PROGRESS NOTE Speech Therapy, [facility] [address] [facility] [address] Patient Name: John Brothers Date: 03/17/2024 Time: [id number] Plan of Care Expiration Date: 05/19/2024 Visit [...] minutes/session x 10 week(s) Lisa Hairston MS, CCC-TRACK EQUIPMENT OPERATOR 03/17/2024 documented in this encounter Plan of Treatment Upcoming Encounters Date Type Department Care Team (Late st Contact Info) Description 03/24/2024 9:00 AM EDT Rehab Services Speech [facility], [address] [address] Lisa Hairston, TRACK EQUIPMENT OPERATOR [address] [address] 04/01/2024 1:00 PM EDT Rehab Services Speech [facility], [address] [address] Lisa Hairston, TRACK EQUIPMENT OPERATOR [address] [address] 04/02/2024 8:15 AM EDT Nurse Only Hematology Oncology [facility], [address] [address] [place], Nurse Lab Hem/Onc [address] [place] [address] 04/02/2024 9:00 AM EDT Office Visit Hematology Oncology [facility], [address] [address] Diego Pena CRNP [facility] [place] [address] 04/02/2024 10:00 AM EDT Hem/Onc Treatment Hematology Oncology [facility], [address] [address] [place], Chair 16 Hem/Onc [address] [place] [address] 04/08/2024 9:00 AM EDT Rehab Services Speech [facility], [address] [address] Reginaldo Mendoza, TRACK EQUIPMENT OPERATOR [address] [place] [address] 04/14/2024 10:30 AM EDT Laboratory [facility], [address] [phone] [place], Lab Lock [address] [place] [address] 04/15/2024 6:15 AM EDT Anticoagulation Pharmacy Call Center [address] [place] [address] Ccps, [facility] 58 [address] [place] [address] 04/23/2024 7:15 AM EDT Nurse Only Hematology Oncology [place] [address] [place], [place] [phone] [place], Nurse Lab Hem/Onc [facility] [place] [address] 04/23/2024 8:00 AM EDT Office Visit Hematology Oncology [place] [address] [place] [address] Velia Segundo PA-C [address] [place], [place] [phone] 04/23/2024 9:00 AM EDT Hem/Onc Treatment Hematology Oncology [facility] [address] [place] [address] [place], Chair 11 Hem/Onc [address] [place], [place] [phone] 05/06/2024 9:20 AM EDT Office Visit Neurology [facility] [address] [address] Kathy Pryor PA-C [address] [address] 08/31/2024 8:40 AM EST Office Visit Pulmonary Medicine, [facility] [address] [place] [address] Wyatt [...] this encounter Medical Devices Implanted Type Area Light Bulb Tester Device Identifier Shelf Expiration Date Model / Serial / Lot Power Port 8fr Sngl Lumen Plas - [id number] [facility] CR BARD : PERIPHERAL VASCULAR [id number] 02/24/2022 [id number] / / [id number] Port Implant W/8f Poly Cath - [id number] Implanted:Qty[facility] CR BARD : PERIPHERAL VASCULAR [id number] 03/27/2025 [id number] / / [id number] documented as of this encounter Visit Diagnoses [...] Advance Directives occurred with: Patient Care Teams Retail Training Manager Relationship Specialty Start Date End Date Matthew Herrmann PA-C [address] [place] [address] [place] [phone] PCP - General Physician Fish Stringer Assembler 03/22/21 documented as of this encounter
--- OUTSIDE RECORDS SUMMARY | 2024-04-11 14:45 | External Medical Summary | Summary of Care ---
Author Name Unknown Organization [facility] Address [address] [place] [address] Phone [phone] Care Team Providers Care Log Chipper Name Role Phone Matthew Herrmann PA-C Primary Care Provider [phone] Reason for Visit * Reason Comments Speech * Evaluate & Treat - Unlimited Visits (Within 10 days (routine)) - Pending Review Specialty Diagnoses / Procedures Referred By Yuli seay Referred To Contact Speech Pathology / Speech Pathology Diagnoses Cerebral infarction, unspecified (HCC) Yonathan Tomas CRNP [address] [place] [address] Speech [address] [address] Referral ID Status Reason Start Date Expiration Date Visits Requested Visits Authorized [id number] Pending Review Specialty Services Required 01/21/2024 07/19/2024 15 15 Encounter Details Date Type Department Care Team (Latest Contact Info) Description 03/10/2024 9:00 AM EDT Rehab Services Speech Therapy, [address] [address] Lisa Hairston, PAPER STRIPPER [address] [place] [phone] Cerebral infarction, unspecified mechanism (HCC)* Allergies Active Allergy Reactions [...] 60 Blister Dosing Unit 2 01/02/2024 4 Active dexAMETHasone 4 MG Oral Tablet (Decadron)Indicatio [...] (Pfizer) 09/23/2021 Pneumococcal Conjugate Vacci ne, 20-valent ([id number]) 12/12/2023(Deferred: Patient Refused - Renee Duarte MD) [...] this encounter Progress Notes * Lisa Hairston, PAPER STRIPPER - 03/10/2024 9:14 AM EDT OUTPATIENT REHABILITATION SPEECH-LANGUAGE PATHOLOGY Re-certification Speech Therapy, [facility] [address] [facility] [address] Patient Name: John Brothers Start of Care: 02/05/2024 Plan of Care Expiration Date: 03/04/2024 Visit Number: 4 Dysphagia/ Communication diagnosis: Cerebral infarction, unspecified mechanism (HCC) Subjective: John seen in speech office with his present. John is using external memory aids for short term recall including journal, calendar application on phone, and written notes. Both he and his endorse ongoing difficulty with short term recall as a main concern and at the end of the session his asked about scheduling a swallow study as discussed with another clinician. Short Term Communication Goals: John will name 15 category members in a timed 1 minute period to increase overall naming/thought formulation. Comments: Using visualization John generated 12 category members in 1 minute. There was evidence of categorization within the category suggestive of improved thought organization. He rates this activity at moderate difficulty level and found closing his eyes to be beneficial. Continue goal as John is making progress and demonstrating carryover of wait time, phrase completion, and circumlocutionstrategies in conversation for improved functional communication and word retrieval skills. John will utilize compensatory memory strategies independently at 90% of opportunities given to recall detail for completion of IADL tasks. Comment: John describes external memory aids to facilitate recall of upcoming events, detailed information, and personal information. Focus needed for internal recall strategies to facilitate independence in the absence of external memory aids. John utilized visualization and categorization for short term recall task with 70% success increased to 100% given min descriptive cues. Continue goal. John is making progress toward goal and would benefit from ongoing skilled training and analysis ofinternal recall strategies to maximize independence. New Short Term Dysphagia Goals: 1) John will utilize compensatory swallowing strategies to minimize signs and symptoms of dysphagia to less than 10% of trials. 2) Jonh will improve pharyngeal stage function via facilitative techniques including effortful swallow and rianna maneuver with less than 10% signs and symptoms of aspiration/ penetration over 2consecutive sessions. Plan: Recommend continued therapy to address higher level cognitive tasks including memory and recall of detail as well as word finding and add dysphagia treatment to plan of care. Indicated 1 days/week, 45-60 minutes/session x 10 week(s) Providers Signature: Date: Comments: PLEASE SIGN AND FAX TO [phone] Lisa Hairston MS, CCC-PAPER STRIPPER 03/10/2024 documented in this encounter Plan of Treatment Upcoming Encounters Date Type Department Care Team (Late st Contact Info) Description 03/17/2024 9:00 AM EDT Rehab Services Speech Therapy, [address] [place] [address] Lisa Hairston SLP [address] [place] [address] [place] [phone] 03/24/2024 9:00 AM EDT Rehab Services Speech Therapy, [address] [address] Lisa Hairston SLP [address] [place] [address] [place] [address] 04/01/2024 1:00 PM EDT Rehab Services Speech [facility], [address] [address] Lisa Hairston, PAPER STRIPPER [address] [place] [address] 04/02/2024 8:15 AM EDT Nurse Only Hematology Oncology [facility], [address] [address] [place], Nurse Lab Hem/Onc [address] [place] [address] 04/02/2024 9:00 AM EDT Office Visit Hematology Oncology [facility], [address] [address] Diego Pena CRNP [address] [place] [address] 04/02/2024 10:00 AM EDT Hem/Onc Treatment Hematology Oncology [facility], [address] [address] [place], Chair 16 Hem/Onc [address] [place] [address] 04/08/2024 9:00 AM EDT Rehab Services Speech Therapy, [address] [address] Reginaldo Mendoza, PAPER STRIPPER [address] [place] [address] 04/14/2024 10:30 AM EDT Laboratory [facility] [address] [place], Lab Lock [address] [place] [address] 04/15/2024 6:15 AM EDT Anticoagulation Pharmacy Call Center [address] [place] [address] Ccps, [facility] 58 60 [facility] [place] [address] 04/23/2024 7:15 AM EDT Nurse Only Hematology Oncology [facility], [place] [address] [place], [place] [phone] [place], Nurse Lab Hem/Onc [facility] [address] [place], [place] [phone] 04/23/2024 8:00 AM EDT Office Visit Hematology Oncology [facility], [place] [address] [place] [phone] Velia Segundo PA-C [address] [place], [place] [phone] 04/23/2024 9:00 AM EDT Hem/Onc Treatment Hematology Oncology [facility], [place] [address] [place] [address] [place], Chair 11 Hem/Onc [address] [place] [phone] 05/06/2024 9:20 AM EDT Office Visit Neurology [facility] 200 [facility] [place] [address] Kathy Pryor PA-C [address] [facility] [place] [address] 08/31/2024 8:40 AM EST Office Visit Pulmonary Medicine, [facility] [address] [place] [phone] Wyatt Gallegos MD [address] [place] [address] Health Maintenance Due Date Last Done Comments [...] this encounter Medical Devices Implanted Type Area Semiconductor Packages Sealer Device Identifier Shelf Expiration Date Model / Serial / Lot Power Port 8fr Sngl Lumen Plas - [id number] Implanted:Qty: 1 on 04/24/2021 at [facility] CR BARD : PERIPHERAL VASCULAR [id number] 02/24/2022 [id number] / / [id number] Port Implant W/8f Poly Cath - [id number] Implanted:Qty: 1 on 10/15/2023 at [facility] CR BARD : PERIPHERAL VASCULAR [id number] 03/27/2025 [id number] / / [id number] documented as of this encounter Visit Diagnoses Diagnosis Cerebral infarction, unspecified mechanism (HCC)- Primary documented in this encounter Advance Directives Latest [...] the patient have Health Care Power of Wireless Retail Manager? No Full Code 05/23/2021 12:21 PM 05/24/2021 9:38 PM This order reflects the patients wishes and were consensually agreed upon. Question Answer Comments Discussion of Advance Directives occurred with: Patient Care Teams Log Chipper Relationship Specialty Start Date End Date Matthew Herrmann PA-C [address] [place] [address] PCP - General Physician Saturator Operator 03/22/21 documented as of this encounter
--- OUTSIDE RECORDS SUMMARY | 2024-04-11 14:45 | External Medical Summary | Summary of Care ---
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) Procedures OH FOSAPREPITANT INJECTION OH INJ PEMBROLIZUMAB OH PACLITAXEL INJECTION Kerri Foote MD [address] [place] [address] Anc Hem/Onc Jay [address] [place] [address] Referral ID Status Reason Start Date Expiration Date V isits Requested Visits Authorized [id number] Authorized 09/30/2023 10/27/2099 999 [id number] Encounter Details Date Type Department Care Team (Latest Contact Info) Description 03/12/2024 8:00 AM EDT Hem/Onc Treatment Hematology Oncology [facility], Jay [address] [place] [address] Pacheco, Chair 5 Hem/Onc [address] [place] [address] Chemotherapy adverse reaction, initial encounter*; Chemotherapy induced [...] mRNA, LNP-s, No Pre serve, 2-Dose Series ([employer]) 09/23/2021 Pneumococcal Conjugate Vacci ne, 20-valent ([id number]) 12/12/2023(Deferred: Patient Refused - Renee Duarte MD) [...] Sign Reading Time Taken Comments Blood Pressure 123/77 03/12/2024 7:59 AM EDT Pulse 62 03/12/2024 7:59 AM EDT Temperature 36.2 C (97.2 F) 03/12/2024 7:59 AM ED T Respiratory Rate 16 03/12/2024 7:59 AM EDT Oxygen Saturation 96% 03/12/2024 7:59 AM EDT ra Inhaled Oxygen Concentration - - Weight 103 kg (227 lb 1.6 oz) 03/12/2024 7:59 AM EDT Height 182 cm (5' 11.65") 03/12/2024 7:59 AM EDT Body Mass Index 31.1 03/12/2024 7:59 AM EDT documented in this encounter Functional [...] as of this encounter Nursing Notes * Ursula Bunn, RN - 03/12/2024 12:00 PM EDT Old treatment room Chair 9 Ok to proceed with treatment today per Dr Foote Pt was agreeable to proceed with treatment Safety and Risk for Injury Goals: Patient will remain free from serious injury throughout pit recorder will ensure various appropriate safety devices are available and utilized RN will provide and maintain safe environment. Possible barriers to meeting goals: IV pole/medical equipment, disease process, unfamiliar environment Stability of the patient: Moderately stable - low risk of patient condition declining or worsening Summary/outcome/evaluation of todays goals: MET, pt remained free on injury, harm and falls during today's visit Pt was ambulatory from clinic today Pt tolerated treatment well, pt did not verbalize any complaints Patient verbalized awareness to watch for and agreeable to immediately report to nurse any shortness of breath, difficulty breathing, rash, face/lip/tongue swelling, hives, chest pain/tightness, back pain, itching, abdominal cramps/pain, dizziness, rapid heartbeat, light-headedness, flushing, nausea or vomiting, or any unusual feeling or pain. Working Call dela cruz within pt reach at chairside at all times, pt verbalized understanding how to use. No reactions, injuries, or falls occurred/ observed or reported Pt was oriented to treatment room Functional status at today's visit: Restricted in physically strenuous activity but ambulatory and able to carry out work on a light orsedentary nature, e.g. light house work, office work The drug name, dose, infusion volume, rate and route of administration, expiration date and time, appearance and physical integrity of the drug and rate set on the pump were verified by this keno writer / runner and second sign-in RN Patient was assessed for symptoms or adverse side effects during treatment. * Nova Smith RN - 03/12/2024 8:33 AM EDT Pre-chemo checklist Chemo/Immune agents :::taxol Consent for chemotherapy drug treatment complete, dated, and signed? 09/23/2023 Is this a research protocol? no Treatment lab parameters met? Yes Has treatment weight changed > than 10% No Treatment preauthorized? Yes Blood pressure N/A Urine protein N/A Chemo education completed for new therapies? N/A Return appointment scheduled Yes Orders released Yes, per provider per Dr. Foote it is OK for patient to get taxol today without being seen. documented in this encounter Plan of Treatment Upcoming Encounters Date Type Department Care Team (Late st Contact Info) Description 03/17/2024 9:00 AM EDT Rehab Services Speech [facility], [address] [address] Lisa Hairston SLP [address] [place] [address] 03/24/2024 9:00 AM EDT Rehab Services Speech [facility], [address] [address] Lisa Hairston SLP [address] [place] [address] 04/01/2024 1:00 PM EDT Rehab Services Speech [facility], [address] [address] Lisa Hairston, ADOPTION SOCIAL WORKER [address] [place] [address] 04/02/2024 8:15 AM EDT Nurse Only Hematology Oncology [facility], [address] [address] Jay, Nurse Lab Hem/Onc [address] [place] [address] 04/02/2024 9:00 AM EDT Office Visit Hematology Oncology [facility], [address] [phone] Diego Pena CRNP [facility] [place] [address] 04/02/2024 10:00 AM EDT Hem/Onc Treatment Hematology Oncology [facility], [address] [address] Jay, Chair 16 Hem/Onc [address] [place] [address] 04/08/2024 9:00 AM EDT Rehab Services Speech Therapy, [address] [address] Reginaldo Mendoza, ADOPTION SOCIAL WORKER [address] [place] [address] 04/14/2024 10:30 AM EDT Laboratory [facility] [phone] [place], Lab Lock [address] [place] [address] 04/15/2024 6:15 AM EDT Anticoagulation Pharmacy Call Center WB 58-60 [facility] [place] [address] Ccps, [facility] 58 60 [facility] [place] [address] 04/23/2024 7:15 AM EDT Nurse Only Hematology Oncology [facility], [address] [address] Jay, Nurse Lab Hem/Onc [facility] [place] [address] 04/23/2024 8:00 AM EDT Office Visit Hematology Oncology [facility], [address] [phone] Velia Segundo PA-C [facility] [address] [place], [place] [phone] 04/23/2024 9:00 AM EDT Hem/Onc Treatment Hematology Oncology [facility], [place] [address] [place] [address] Pacheco, Chair 11 Hem/Onc [address] [place] [id number] 05/06/2024 9:20 AM EDT Office Visit Neurology [facility] [place] [address] Kathy Pryor PA-C [address] [facility] [place] [address] 08/31/2024 8:40 AM EST Office Visit Pulmonary Medicine, 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) Expected: 03/12/2024 (Approximate), Expires: 09/08/2024 GLUCOSE Lab STAT Chemotherapy adverse reaction, initial encounter Chemotherapy induced nausea and vomiting Encounter for antineoplastic chemotherapy Malignant neoplasm of lower lobe, left bronchus or lung (HCC) 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) Expected: 03/12/2024 (Approximate), Expires: 09/08/2024 CBC WITH WBC DIFFERENTIAL Lab STAT Chemotherapy adverse reaction, initial encounter Chemotherapy induced nausea and vomiting Encounter for antineoplastic chemotherapy Malignant neoplasm of lower lobe, left bronchus or lung (HCC) 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) Expected: 03/12/2024 (Approximate), Expires: 09/08/2024 COMPREHENSIVE METABOLIC PANEL Lab STAT Chemotherapy adverse reaction, initial encounter Chemotherapy induced nausea and vomiting Encounter for antineoplastic chemotherapy Malignant neoplasm of lower lobe, left bronchus or lung (HCC) 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) Expected: 03/12/2024 (Approximate), Expires: 09/08/2024 Health Maintenance Due Date Last Done Comments [...] this encounter Medical Devices Implanted Type Area Rougher Operator Device Identifier Shelf Expiration Date Model / Serial / Lot Power Port 8fr Sngl Lumen Plas - [id number] Implanted:Qty: 1 on 04/24/2021 at [facility] CR BARD : PERIPHERAL VASCULAR [id number] 02/24/2022 [id number] / / [id number] Port Implant W/8f Poly Cath - [id number] Implanted:Qty: 1 on 10/15/2023 at [facility] CR BARD : PERIPHERAL VASCULAR [id number] 03/27/2025 [id number] / / [id number] documented as of this encounter Visit Diagnoses [...] ONCE PRN Other, Hypersensitivity Reaction, Starting on Sat03/12/24 at 0834, Until Sat03/13/24 at 0833, For 24 hours EPINEPHrine 1 MG/ML inj 0.3 mg 0.3 mg, Intramuscular, ONCE PRN Other, Hypersensitivity Reaction or Anaphylaxis, Starting on Sat03/12/24 at 0834, Until Sat03/13/24 at 0833, For 24 hours hEParin 100 UNIT/ML Lock Flush inj 500 Units 500 Units (5 mL), IV Lock, PRN Other, IV Flush, Starting on Sat03/12/24 at 0834, Until Sat03/13/24 at 0833, For 24 hours, Do not flush if lock, PICC, or central line not in place; IV infusing or unable to flush. Given 03/12/2024 12:15 PM EDT 500 Units Hydrocortisone Sod Suc (PF) (Solu-Cortef) inj 100 mg 100 mg, IV Push, ONCE PRN Other, Hypersensitivity Reaction, Starting on Sat03/12/24 at 0834, Until Sat03/13/24 at 0833, For 24 hours LORAzepam (Ativan) tab 0.5 mg 0.5 mg, Oral, ONCE PRN Anxiety, Nausea, Starting on Ofe 03/12/24 at 0945, Until Discontinued NSS infusion Intravenous, at 50 mL/hr, PRN, Starting on Ofe 03/12/24 at 0945, Until Discontinued, Maintenance line Start Infusion 03/12/2024 8:51 AM EDT 50 mL/hr oxygen GAS Inhalation, OXYGEN, First dose on Ofe 03/12/24 at 0915, Until Discontinued, Device/Managed by: Low Flow Device, [...] PRN Other, IV Flush, Starting on Ofe 03/12/24 at 0834, Until Sat03/13/24 at 0833, For 24 hours, Do not flush if lock, PICC, or central line not in place; IV infusing or unable to flush. Given 03/12/2024 12:15 PM EDT 10 mL Given 03/12/2024 8:49 AM EDT 10 mL Inactive Administered Medications - up to 3 most recent administrations Medication Order MAR Action Action Date Dose Rate Site diphenhydrAMINE (Benadryl) cap 50 mg 50 mg, Oral, ONCE, On Ofe 03/12/24 at 0945, For 1 dose Given 03/12/2024 8:48 AM EDT 50 mg Famotidine (Pepcid) tab 20 mg 20 mg, Oral, ONCE, On Ofe 03/12/24 at 0945, For 1 dose Given 03/12/2024 8:55 AM EDT 20 mg ondansetron (Zofran) tab 8 mg 8 mg, Oral, ONCE, On Ofe 03/12/24 at 0915, For 1 dose Given 03/12/2024 8:48 AM EDT 8 mg PACLitaxel (Taxol) 387 mg in NSS 500 mL infusion 387 mg (rounded from 386.75 mg = 175 mg/m2 2.21 m2 Treatment Plan BSA from Recorded weight), IV Piggyback, at 204.83 mL/hr Administer over 180 Minutes, Administer through 0.22 micron low protein binding filter!, ONCE, 1 dose, On Ofe 03/12/24 at 1045 New Bag 03/12/2024 9:16 AM EDT 387 mg 204.83 mL/hr documented in this encounter Advance Directives Latest [...] the patient have Health Care Power of Cost And Risk Analysis Manager? No Full Code 05/23/2021 12:21 PM 05/24/2021 9:38 PM This order reflects the patients wishes and were consensually agreed upon. Question Answer Comments Discussion of Advance Directives occurred with: Patient Care Teams On Site Nurse Relationship Specialty Start Date End Date Matthew Herrmann PA-C [address] [place] [id number] PCP - General Physician Lime Kiln And Recausticizing Operator 03/22/21 documented as of this encounter
--- OUTSIDE RECORDS SUMMARY | 2024-04-11 14:45 | External Medical Summary | Summary of Care ---
Author Name Unknown Organization [facility] Address [address] [place] [address] Phone [phone] Care Team Providers Care Asp Developer Name Role Phone Matthew Herrmann PA-C Primary Care Provider [phone] Reason for Visit * Reason Comments Treatment * Evaluate & Treat - Unlimited Visits (Within 10 days (routine)) - Pending Review Specialty Diagnoses / Procedures Referred By Yuli seay Referred To Contact Hematology/Oncology Diagnoses Malignant neoplasm of unspecified part of unspecified bronchus or lung (HCC) Yonathan Tomas CRNP [address] [place] [address] Referral ID Status Reason Start Date Expiration Date Visits Requested Visits Authorized [id number] Pending Review Specialty Services Required 11/21/2023 11/20/2024 [id number] Encounter Details Date Type Department Care Team (Latest Contact Info) Description 02/13/2024 11:30 AM EDT Hem/Onc Treatment Hematology Oncology [facility], [place] [address] [place] [address] [place], [facility] 4 Hem/Onc [address] [place] [address] Chemotherapy adverse reaction, initial encounter*; Chemotherapy induced [...] (Pfizer) 09/23/2021 Pneumococcal Conjugate Vacci ne, 20-valent ([id number]) 12/12/2023(Deferred: Patient Refused - Renee Duarte MD) [...] 1:00 PM EDT Rehab Services Speech Therapy, [place] [address] [place] [address] Lisa Hairston, CRAYON PAINTER [address] [place] [address] 04/02/2024 8:15 AM EDT Nurse Only Hematology Oncology [address] [place] [address] [place], Nurse Lab Hem/Onc [address] [place] [address] 04/02/2024 9:00 AM EDT Office Visit Hematology Oncology [facility], [place] [address] [place] [address] Diego Pena CRNP [address] [place] [address] 04/02/2024 10:00 AM EDT Hem/Onc Treatment Hematology Oncology [facility], [place] [address] [place], [place] [phone] [place], Chair 16 Hem/Onc [address] [place] [id number] 04/08/2024 9:00 AM EDT Rehab Services Speech Therapy, [place] [address] [place] [address] Reginaldo Mendoza, CRAYON PAINTER [address] [place] [address] 04/14/2024 10:30 AM EDT Laboratory Laboratory [facility] [phone] [address] [address] 04/15/2024 6:15 AM EDT Anticoagulation Pharmacy Call Center WB 58[address]60 [facility] [place] [address] Ccps, [facility] 58 60 [facility] [place] [address] 04/23/2024 7:15 AM EDT Nurse Only Hematology Oncology [facility], [place] [address] [place] [address] [place], Nurse Lab Hem/Onc [address] [place] [address] 04/23/2024 8:00 AM EDT Office Visit Hematology Oncology [facility], [place] [address] [place] [address] Velia Segundo PA-C [address] [place] [address] 04/23/2024 9:00 AM EDT Hem/Onc Treatment Hematology Oncology [facility], [place] [address] [place], [place] [phone] [place], Chair 11 Hem/Onc [facility] [address] [place], [place] [phone] 05/06/2024 9:20 AM EDT Office Visit Neurology [facility] 200 [facility] [place] [address] Kathy Pryor PA-C 200 [facility] [place] [address] 08/31/2024 8:40 AM EST Office Visit Pulmonary Medicine, [facility] 132 [facility] [place] [address] Wyatt [facility]legos MD [address] [facility] [phone] Scheduled Orders Name Type Priority Associated Diagnoses [...] this encounter Medical Devices Implanted Type Area Sediment Remediation Consultant Device Identifier Shelf Expiration Date Model / Serial / Lot Power Port 8fr Sngl Lumen Plas - [id number] Implanted:Qty: 1 on 04/24/2021 at [facility] CR BARD : PERIPHERAL VASCULAR [id number] 02/24/2022 [id number] / / [id number] Port Implant W/8f Poly Cath - [id number] Implanted:Qty: 1 on 10/15/2023 at [facility] CR BARD : PERIPHERAL VASCULAR [id number] 03/27/2025 [id number] / / [id number] documented as of this encounter Results * (ABNORMAL) COMPREHENSIVE METABOLIC PANEL (03/12/2024 7:49 AM EDT) Pathologist [facility] BUN 12 6 - 20 mg/dL 03/12/2024 [facility] [address] [place] [address] * TSH WITH FREE T4 IF INDICATED (03/12/2024 7:49 AM EDT) TSH 2.69 0.27 - 4.20 uIU/mL 03/12/2024 10:03 AM EDT LABORATORY [facility] Blood Blood sample taken from central line / Unknown Central Line / Unknown 03/12/2024 7:49 AM EDT 03/12/2024 8:00 AM EDT Kerri Foote MD LAB BLOOD ORDERAB LES LABORATORY [facility] [address] [place] [address] documented in this encounter Visit Diagnoses Diagnosis [...] Starting on Ofe 02/13/24 at 1230, Until Oef 02/13/24 at 1944, Maintenance line Start Infusion [...] Advance Directives occurred with: Patient Care Teams Asp Developer Relationship Specialty Start Date End Date Matthew Herrmann PA-C [address] [place], [place] [address] [phone] PCP - General Physician Day Care Provider 03/22/21 documented as of this encounter
--- OUTSIDE RECORDS SUMMARY | 2024-04-11 14:45 | External Medical Summary ---
Author Name Unknown Address Unknown Organization K01:[facility]ATORY [facility] [address] [facility] [place] [address] Laboratory Report Ordering Provider Test Date Status JOSE STEELE 03/12/2024 07:49:02 Final Observation Date Value Abnormality Reference (Units ) Status BUN 03/12/2024 07:49:02 12 6-20 (mg/dL) Final Creatinine 03/12/2024 07:49:02 0.9 0.6-1.2 (mg/dL) Final Glomerular filtration rate/1.73 sq M.predicted [Volume Rate/Area] in Serum, Plasma or Blood by Creatinine-based formula (CKD-EPI) 03/12/2024 07:49:02 >90 >=60 (mL/min) Final eGFR is calculated based on the CKD-EPI 2020 equation Sodium 03/12/2024 07:49:02 145 135-146 (m mol/L) Final Potassium 03/12/2024 07:49:02 3.8 3.5-5.1 (m mol/L) Final Cl 03/12/2024 07:49:02 109 Above high normal 98 -107 (mmol/L) Final CO2 03/12/2024 07:49:02 25 22-32 (mmo l/L) Final Anion gap 03/12/2024 07:49:02 11 7-15 (mmol /L) Final Glucose 03/12/2024 07:49:02 89 70-120 (mg /dL) Final Albumin 03/12/2024 07:49:02 4.3 3.8-5.0 (g /dL) Final AST (Aspartate aminotransferase) 03/12/2024 07:49:02 20 10-50 (U/L) Fin al Alk Phos 03/12/2024 07:49:02 90 35-130 (U/ L) Final Bilirubin, Total 03/12/2024 07:49:02 0.4 <=1 .2 (mg/dL) Final Calcium 03/12/2024 07:49:02 9.2 8.4-10.2 ( mg/dL) Final Protein 03/12/2024 07:49:02 6.8 6.0-8.3 (g /dL) Final ALT (Alanine aminotransferase) 03/12/2024 07:49:02 33 10-50 (U/L) Marvin graham Performing Location LABORATORY [facility] - [address] [facility] [address]
--- OUTSIDE RECORDS SUMMARY | 2024-04-11 14:46 | External Medical Summary | Summary of Care ---
Author Name Unknown Organization [facility] Address [address] [place] [address] Phone [phone] Care Team Providers Care Bookkeeping Service Sales Agent Name Role Phone Matthew Herrmann PA-C Primary Care Provider [phone] [phone] Reason for Visit * Evaluate & Treat - Unlimited Visits (Within 30 days (routine)) - Authorized Specialty Diagnoses / Procedures Referred By Yuli seay Referred To Contact Hematology/Oncology / Hematology Oncology Diagnoses 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) Matthew Herrmann PA-C [address] [place] [address] Referral ID Status Reason Start Date Expiration Date Visits Requested Visits Authorized [id number] Authorized Specialty Services Required 06/11/2023 06/11/[id number] Encounter Details Date Type Department Care Team (Latest Contact Info) Description 01/03/2024 10:30 AM EST Hem/Onc Treatment Hematology Oncology [facility], [place] [address] [place] [address] [place], [facility] 4 Hem/Onc [facility] [place] [address] Chemotherapy adverse reaction, initial encounter*; Chemotherapy induced [...] as of this encounter (statuses as of 02/20/2024) Medications Medication Sig Dispensed Refills Start Date [...] 09/22/2023 Active OLANZapine 5 MG Oral Tablet (zyPREXA)Indication [...] as directed prior to chemo. 30 Tablet 3 09/30/2023 4 Discontinue d(Refill) Enoxaparin Sodium 80 MG/0.8ML Injection Solution Prefilled Syringe (Lovenox) Inject 80 mg under the skin in the morning and 80 mg before bedtime. 8 mL 2 10/11/2023 4 Discontinue d(Refill) Hospital, Clinic, or Other [...] as of this encounter (statuses as of 02/20/2024) Active Problems Problem Noted Date Diagnosed Date Malnutrition of moderate degree 12/09/2023 Acute hypoxic [...] as of this encounter (statuses as of 02/20/2024) Resolved Problems Problem Noted Date Diagnosed Date Resolved Date MSSA bacteremia 08/01/2021 08/07/2021 Sepsis 08/01/2021 08/07/2021 COPD, group B, by GOLD 2017 classification 05/08/2021 06/21/2021 Overview: Per COPD GOLD Classification Obstructive lung disease 04/10/2021 Overview: Per COPD GOLD Classification documented as of this encounter (statuses as of 02/20/2024) Immunizations Name Administration Dates Next Due COVID-19 mRNA, LNP-s, No Pre serve, 2-Dose Series (Pfizer) 09/23/2021 Pneumococcal Conjugate Vacci ne, 20-valent ([id number]) 12/12/2023(Deferred: Patient Refused - Renee Duarte MD) [...] as of this encounter Progress Notes * Zandra Arauz RN - 01/03/2024 12:09 PM EST Chair 16 (treatment room) Safety and Risk for Injury Patient will remain free from injury. Ensure appropriate safety devices are available. Provide and maintain safe environment. Goals: No falls Possible barriers to meeting goals: IV pole Stability of the patient: Moderately stable - low risk of patient condition declining or worsening Summary regarding today's goals: Met: no falls today Functional status at today's visit: Restricted in [...] symptoms or adverse side effects during treatment. documented in this encounter Nursing Notes * Nova Smith RN - 01/03/2024 9:40 AM EST Pre-chemo checklist Chemo/Immune agents ::: taxol Consent for chemotherapy drug treatment complete, dated, and signed? 09/23/2023 Is this a research protocol? no Treatment lab parameters met? Yes Has treatment weight changed > than 10% No Treatment preauthorized? Yes Blood pressure N/A Urine protein N/A Chemo education completed for new therapies? N/A Return appointment scheduled Yes Ok to release order and treat per provider Yes - Per Velia Segundo PA-C it is OK for patient to get taxol and zometa today documented in this encounter Plan of Treatment Upcoming Encounters Date Type Department Care Team (Late st Contact Info) Description 02/25/2024 6:15 AM EDT Anticoagulation Pharmacy Call Center [address] [place] [address] [facility] [address] [place] [address] 02/25/2024 9:30 AM EDT Appointment Radiology, [address] [address] 03/05/2024 10:00 AM EDT Office Visit Hematology Oncology [facility], [place] [address] [place] [address] Kerri Foote MD [address] [place] [address] 03/10/2024 9:00 AM EDT Rehab Services Speech Therapy, [address] [address] Lisa Hairston, OCCUPATIONAL THERAPY ASST [address] [place] [address] 03/17/2024 9:00 AM EDT Rehab Services Speech Therapy, [address] [address] Lisa Hairston, OCCUPATIONAL THERAPY ASST [address] [place] [address] 03/24/2024 9:00 AM EDT Rehab Services Speech [facility], [address] [address] Lisa Hairston, OCCUPATIONAL THERAPY ASST [address] [place] [address] 05/06/2024 9:20 AM EDT Office Visit Neurology [facility] [address] [place] [address] Kathy Pryor PA-C [address] [facility] [place] [address] 08/31/2024 8:40 AM EST Office Visit Pulmonary Medicine, [facility] [address] [facility] [place] [address] Wyatt Gallegos MD [address] [place] [address] Health Maintenance Due Date Last Done Comments [...] this encounter Medical Devices Implanted Type Area Drying Machine Tender Device Identifier Shelf Expiration Date Model / Serial / Lot Power Port 8fr Sngl Lumen Plas - [id number] Implanted:Qty: 1 on 04/24/2021 at [facility] CR BARD : PERIPHERAL VASCULAR [id number] 02/24/2022 [id number] / / [id number] Port Implant W/8f Poly Cath - [id number] Implanted:Qty: 1 on 10/15/2023 at [facility] CR BARD : PERIPHERAL VASCULAR [id number] 03/27/2025 [id number] / / [id number] documented as of this encounter Visit Diagnoses [...] 50 mg 50 mg, Oral, ONCE, On Sat01/03/24 at 1045, For 1 dose Given 01/03/2024 9:59 AM EST 50 mg Famotidine (Pepcid) tab 20 mg 20 mg, Oral, ONCE, On Sat01/03/24 at 1045, For 1 dose Given 01/03/2024 9:59 AM EST 20 mg hEParin 100 UNIT/ML Lock Flush inj 500 Units 500 Units (5 mL), IV Lock, PRN Other, IV Flush, Starting on Sat01/03/24 at 0941, Until Sat01/03/24 at 1814, For 24 hours, Do not flush if lock, PICC, or central line not in place; IV infusing or unable to flush. Given 01/03/2024 1:45 PM EST 500 Units NSS infusion Intravenous, at 50 mL/hr, PRN, Starting on Sat01/03/24 at 1045, Until Sat01/03/24 at 1814, Maintenance line Start Infusion 01/03/2024 10:05 AM EST 50 mL/hr ondansetron (Zofran) tab 8 mg 8 mg, Oral, ONCE, On Sat01/03/24 at 1015, For 1 dose Given 01/03/2024 9:59 AM EST 8 mg PACLitaxel (Taxol) 387 mg in NSS 500 mL infusion 387 mg (rounded from 386.75 mg = 175 mg/m2 2.21 m2 Treatment Plan BSA from Recorded weight), IV Piggyback, at 166.67 mL/hr Administer over 180 Minutes, Administer through 0.22 micron low protein binding filter!, ONCE, 1 dose, On Sat01/03/24 at 1145 Start Infusion 01/03/2024 10:31 AM EST 387 mg 166.67 mL/hr sodium chloride 0.9 % flush central line 10 mL 10 mL, IV Push, PRN Other, IV Flush, Starting on Sat01/03/24 at 0941, Until Sat01/03/24 at 1814, For 24 hours, Do not flush if lock, PICC, or central line not in place; IV infusing or unable to flush. Given 01/03/2024 1:45 PM EST 10 mL Zoledronic Acid (Zometa) 4 mg in 100 mL PREMIX ivpb 4 mg, IV Piggyback, ONCE, 1 dose, On Sat01/03/24 at 1015, Administer over 15 Minutes Start Infusion 01/03/2024 10:08 AM EST 4 mg 400 mL/hr documented in this [...] the patient have Health Care Power of Gift Shop Manager? No Full Code 05/23/2021 12:21 PM 05/24/2021 9:38 PM This order reflects the patients wishes and were consensually agreed upon. Question Answer Comments Discussion of Advance Directives occurred with: Patient Care Teams Bookkeeping Service Sales Agent Relationship Specialty Start Date End Date Matthew Herrmann PA-C [address] [place] [address] PCP - General Physician Meter Reader 03/22/21 documented as of this encounter
--- OUTSIDE RECORDS SUMMARY | 2024-04-11 14:46 | External Medical Summary | Summary of Care ---
Author Name Unknown Organization [facility] Address [address] [place] [address] Phone [phone] Care Team Providers Care Gear Cutting Machine Set Up Operator Name Role Phone Matthew Herrmann PA-C Primary Care Provider [phone] [phone] Reason for Visit * Reason Comments Follow Up * Evaluate & Treat - Unlimited Visits (Within 10 days (routine)) - Pending Review Specialty Diagnoses / Procedures Referred By Yuli seay Referred To Contact Hematology/Oncology Diagnoses Malignant neoplasm of unspecified part of unspecified bronchus or lung (HCC) Yonathan Tomas CRNP [address] [place] [address] Referral ID Status Reason Start Date Expiration Date Visits Requested Visits Authorized [id number] Pending Review Specialty Services Required 11/21/2023 11/20/[phone] Encounter Details Date Type Department Care Team (Latest Contact Info) Description 02/13/2024 10:30 AM EDT Office Visit Hematology Oncology [facility] [address] [place] [address] Kerri Foote MD [address] [place] [address] 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)*; Encounter for antineoplastic chemotherapy; History of pulmonary embolism; Generalized edema due to fluid overload; Bilateral leg edema; Dyspnea, unspecified type; History of stroke; Multiple subsegmental pulmonary emboli without acute cor pulmonale (HCC); Encounter for antineoplastic immunotherapy Allergies Active Allergy Reactions Criticality Noted Date [...] 60 Blister Dosing Unit 2 01/02/2024 Active Enoxaparin Sodium 80 MG/0.8ML Injection Solution Prefilled Syringe (Lovenox)Indications :History of pulmonary embolism Inject 80 mg under the skin in the morning and 80 mg before bedtime. 48 mL 0 01/23/2024 Active dexAMETHasone 4 MG Oral Tablet (Decadron)Indication s: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),Chemotherapy adverse reaction, initial encounter,Chemothera py induced nausea and vomiting,Encounter for antineoplastic chemotherapy,Maligna nt neoplasm of lower lobe, left bronchus or lung (HCC) Take 2 tabs in AM with food x 3 days AFTER chemo and as directed prior to chemo. 30 Tablet 0 01/23/2024 Active Hospital, Clinic, or Other Facility Administered [...] IVB(cT4, cN3, cM1c) - Signed by Melissa Bael MD on 06/08/[address] scan of [...] (Pfizer) 09/23/2021 Pneumococcal Conjugate Vacci ne, 20-valent ([id number]) 12/12/2023(Deferred: Patient Refused - Renee Duarte MD) [...] Sign Reading Time Taken Comments Blood Pressure 108/76 02/13/2024 10:21 AM EDT Pulse 63 02/13/2024 10:21 AM EDT Temperature 36.2 C (97.1 F) 02/13/2024 1 0:21 AM EDT Respiratory Rate 16 02/13/2024 10:2 1 AM EDT Oxygen Saturation 96% 02/13/2024 10: 21 AM EDT Inhaled Oxygen Concentration - - Weight 102.5 kg (225 lb 14.4 oz) 2023 10:21 AM EDT Height 182 cm (5' 11.65") 02/13/2024 10 :21 AM EDT Body Mass Index 30.94 02/13/2024 10:21 AM EDT documented in this encounter Functional [...] as of this encounter Nursing Notes * Jonathan Simental MED ASSIST - 02/13/2024 10:21 AM EDT Room 1 Patient was instructed to not get up [...] Anticoagulation Pharmacy Call Center [address] [place] [address] [facility] 58 60 [facility] [place] [address] 02/25/2024 9:30 AM EDT Appointment Radiology, [address] [address] 03/05/2024 10:00 AM EDT Office Visit Hematology Oncology [facility], [address] [place] [address] Kreri Foote MD [address] [place] [address] 03/10/2024 9:00 AM EDT Rehab Services Speech [facility], [address] [address] Lisa Hairston, SPEECH THERAPY ASSISTANT [address] [place] [address] 03/17/2024 9:00 AM EDT Rehab Services Speech [facility], [address] [address] Lisa Hairston, SPEECH THERAPY ASSISTANT [address] [place] [address] 03/24/2024 9:00 AM EDT Rehab Services Speech [facility], [address] [address] Lisa Hairston, SPEECH THERAPY ASSISTANT [address] [place] [address] 05/06/2024 9:20 AM EDT Office Visit Neurology [facility] 200 [facility] [address] Kathy Pryor PA-C [address] [facility] [address] 08/31/2024 8:40 AM EST Office Visit Pulmonary Medicine, [facility] [address] [place] [address] Wyatt Gallegos MD [address] [place] [id number] Health Maintenance Due Date Last Done Comments [...] this encounter Medical Devices Implanted Type Area Registered Dental Hygienist Device Identifier Shelf Expiration Date Model / Serial / Lot Power Port 8fr Sngl Lumen Plas - [id number] Implanted:Qty: 1 on 04/24/2021 at [facility] CR BARD : PERIPHERAL VASCULAR [id number] 02/24/2022 [id number] / / [id number] Port Implant W/8f Poly Cath - [id number] Implanted:Qty: 1 on 10/15/2023 at [facility] CR BARD : PERIPHERAL VASCULAR [id number] 03/27/2025 [id number] / / [id number] documented as of this encounter Visit Diagnoses Diagnosis 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)- Primary Encounter for antineoplastic chemotherapy History of pulmonary embolism Personal history of pulmonary embolism Generalized edema due to fluid overload Bilateral leg edema Edema Dyspnea, unspecified type History of stroke Transient ischemic attack (TIA), and cerebral infarction without residual deficits Multiple subsegmental pulmonary emboli without acute cor pulmonale (HCC) Encounter for antineoplastic immunotherapy documented in this encounter Advance Directives Latest [...] the patient have Health Care Power of Reactor Fueling Supervisor? No Full Code 05/23/2021 12:21 PM 05/24/2021 9:38 PM This order reflects the patients wishes and were consensually agreed upon. Question Answer Comments Discussion of Advance Directives occurred with: Patient Care Teams Gear Cutting Machine Set Up Operator Relationship Specialty Start Date End Date Matthew Herrmann PA-C [address] [place] [phone] PCP - General Physician Game Programmer 03/22/21 documented as of this encounter
--- OUTSIDE RECORDS SUMMARY | 2024-04-11 14:46 | External Medical Summary | Summary of Care ---
Author Name Unknown Organization [facility] Address [address] [place] [address] Phone [phone] Care Team Providers Care Practicing Dermatologist Name Role Phone Matthew Herrmann PA-C Primary Care Provider [phone] Reason for Visit * Evaluate & Treat - Unlimited Visits (Within 30 days (routine)) - Authorized Specialty Diagnoses / Procedures Referred By Yuli seay Referred To Contact Hematology/Oncology / Hematology Oncology Diagnoses 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) Matthew Herrmann PA-C [address] [place] [address] Referral ID Status Reason Start Date Expiration Date Visits Requested Visits Authorized [id number] Authorized Specialty Services Required 06/11/2023 06/11/[phone] Encounter Details Date Type Department Care Team (Latest Contact Info) Description 01/03/2024 10:30 AM EST Hem/Onc Treatment Hematology Oncology [facility], [place] [address] [place] [address] [place], [facility] 4 Hem/Onc [facility] [place] [address] Chemotherapy adverse reaction, initial encounter*; Chemotherapy induced [...] (Pfizer) 09/23/2021 Pneumococcal Conjugate Vacci ne, 20-valent ([id number]) 12/12/2023(Deferred: Patient Refused - Renee Duarte MD) [...] Center [address] [place] [address] [facility] [address] [place] [address] 02/25/2024 9:30 AM EDT Appointment Radiology, [address] [address] 03/05/2024 10:00 AM EDT Office Visit Hematology Oncology [facility], [place] [address] [place] [address] Kerri Foote MD [address] [place] [address] 03/10/2024 9:00 AM EDT Rehab Services Speech Therapy, [address] [address] Lisa Hairston, [employer]YWOOD LAYUP LINE CORE LAYER [address] [place] [address] 03/17/2024 9:00 AM EDT Rehab Services Speech Therapy, [address] [address] Lisa Hairston, [employer] LAYUP LINE CORE LAYER [address] [place] [address] 03/24/2024 9:00 AM EDT Rehab Services Speech [facility], [address] [address] Lisa Hairston, PLYWOOD LAYUP LINE CORE LAYER [address] [place] [address] 05/06/2024 9:20 AM EDT Office Visit Neurology [facility] 200 [facility] [place] [address] Kathy Pryor PA-C [facility] [place] [address] 08/31/2024 8:40 AM EST Office Visit Pulmonary Medicine, [facility] 132 [facility] [place] [address] Wyatt Gallegos MD [address] [place] [address] Health Maintenance Due Date Last Done Comments [...] this encounter Medical Devices Implanted Type Area Leather Production Artisan Device Identifier Shelf Expiration Date Model / Serial / Lot Power Port 8fr Sngl Lumen Plas - [id number] Implanted:Qty: 1 on 04/24/2021 at [facility] CR BARD : PERIPHERAL VASCULAR [id number] 02/24/2022 [id number] / / [id number] Port Implant W/8f Poly Cath - [id number] Implanted:Qty: 1 on 10/15/2023 at [facility] CR BARD : PERIPHERAL VASCULAR [id number] 03/27/2025 [id number] / / [id number] documented as of this encounter Visit Diagnoses [...] the patient have Health Care Power of Bone Crusher? No Full Code 05/23/2021 12:21 PM 05/24/2021 9:38 PM This order reflects the patients wishes and were consensually agreed upon. Question Answer Comments Discussion of Advance Directives occurred with: Patient Care Teams Practicing Dermatologist Relationship Specialty Start Date End Date Matthew Herrmann PA-C [address] [place] [address] PCP - General Physician Ballaster 03/22/21 documented as of this encounter
--- OUTSIDE RECORDS SUMMARY | 2024-04-11 14:46 | External Medical Summary | Summary of Care ---
Author Name Unknown Organization [facility] Address [address] [place] [address] Phone [phone] Care Team Providers Care Child And Adolescent Psychologist Name Role Phone Matthew Herrmann PA-C Primary Care Provider [phone] Reason for Visit * Evaluate & Treat - Unlimited Visits (Within 30 days (routine)) - Authorized Specialty Diagnoses / Procedures Referred By Yuli seay Referred To Contact Hematology/Oncology / Hematology Oncology Diagnoses 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) Matthew Herrmann PA-C [address] [place] [address] Referral ID Status Reason Start Date Expiration Date Visits Requested Visits Authorized [id number] Authorized Specialty Services Required 06/11/2023 06/11/[phone] Encounter Details Date Type Department Care Team (Latest Contact Info) Description 01/03/2024 10:30 AM EST Hem/Onc Treatment Hematology Oncology [facility] [place] [address] [place] [address] [place], [facility] 4 Hem/Onc [facility] [place] [place] [address] Chemotherapy adverse reaction, initial encounter*; Chemotherapy induced [...] (Pfizer) 09/23/2021 Pneumococcal Conjugate Vacci ne, 20-valent ([id number]) 12/12/2023(Deferred: Patient Refused - Renee Duarte MD) [...] Center [address] [place] [address] [facility] [address] [place] [address] 02/25/2024 9:30 AM EDT Appointment Radiology, [address] [address] 03/05/2024 10:00 AM EDT Office Visit Hematology Oncology [facility], [place] [address] [place] [address] Kerri Foote MD [address] [place] [address] 03/10/2024 9:00 AM EDT Rehab Services Speech Therapy, [address] [address] Lisa Hairston, LEARNING CENTER COORDINATOR [address] [place] [address] 03/17/2024 9:00 AM EDT Rehab Services Speech Therapy, [address] [address] Lisa Hairston, LEARNING CENTER COORDINATOR [address] [place] [address] 03/24/2024 9:00 AM EDT Rehab Services Speech [facility], [address] [address] Lisa Hairston, LEARNING CENTER COORDINATOR [address] [place] [address] 05/06/2024 9:20 AM EDT Office Visit Neurology [facility] 200 [facility] [place] [address] Kathy Pryor PA-C [address] [facility] [place] [address] 08/31/2024 8:40 AM EST Office Visit Pulmonary Medicine, [facility] 132 [facility] [place] [address] Wyatt Gallegos MD [address] [place] [address] Health Maintenance Due Date Last Done Comments [...] this encounter Medical Devices Implanted Type Area Supervisor Grips Device Identifier Shelf Expiration Date Model / Serial / Lot Power Port 8fr Sngl Lumen Plas - [id number] Implanted:Qty: 1 on 04/24/2021 at [facility] CR BARD : PERIPHERAL VASCULAR [id number] 02/24/2022 [id number] / / [id number] Port Implant W/8f Poly Cath - [id number] Implanted:Qty: 1 on 10/15/2023 at [facility] CR BARD : PERIPHERAL VASCULAR [id number] 03/27/2025 [id number] / / [id number] documented as of this encounter Visit Diagnoses [...] the patient have Health Care Power of Student Worker? No Full Code 05/23/2021 12:21 PM 05/24/2021 9:38 PM This order reflects the patients wishes and were consensually agreed upon. Question Answer Comments Discussion of Advance Directives occurred with: Patient Care Teams Child And Adolescent Psychologist Relationship Specialty Start Date End Date Matthew Herrmann PA-C [address] [place] [address] PCP - General Physician Sole Buffer 03/22/21 documented as of this encounter
--- OUTSIDE RECORDS SUMMARY | 2024-04-11 14:46 | External Medical Summary | Summary of Care ---
Author Name Unknown Organization [facility] Address [address] [address] Phone [phone] Care Team Providers Care Square Cutter Name Role Phone Matthew Herrmann PA-C Primary Care Provider [phone] Reason for Visit * Reason Comments Dosage Adjustment Via Phone (anticoag Cl inic) Encounter Details Date Type Department Care Team (Latest Contact Info) Description 03/11/2024 6:15 AM EDT Anticoagulation Pharmacy Call Center 58-60 Public [place] [address] [facility] 58 60 [facility] [place] [address] Acute deep vein thrombosis (DVT) of proximal vein of right lower extremity (HCC)*; Abnormal CT scan of lung; History of pulmonary embolism; 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) Allergies Active Allergy Reactions Criticality Noted Date Comments Carboplatin High 11/14/2021 Dyspnea, chest pain, hypoxia, sore throat, edema throat, flushing, mild hypotension Isosorbide Nitrate Other (Please comment) 07/22/2023 Headache documented as of this encounter (statuses as of 03/11/2024) Medications Medication Sig Dispensed Refills Start Date [...] as of this encounter (statuses as of 03/11/2024) Active Problems Problem Noted Date Diagnosed Date [...] as of this encounter (statuses as of 03/11/2024) Resolved Problems Problem Noted Date Diagnosed Date Resolved Date MSSA bacteremia 08/01/2021 08/07/2021 Sepsis 08/01/2021 08/07/2021 COPD, group B, by GOLD 2017 classification 05/08/2021 06/21/2021 Overview: Per COPD GOLD Classification Obstructive lung disease 04/10/2021 Overview: Per COPD GOLD Classification documented as of this encounter (statuses as of 03/11/2024) Immunizations Name Administration Dates Next Due COVID-19 mRNA, LNP-s, No Pre serve, 2-Dose Series ([employer]) 09/23/2021 Pneumococcal Conjugate Vacci ne, 20-valent ([id number]) 12/12/2023(Deferred: Patient Refused - Renee Duarte MD) [...] as of this encounter Progress Notes * Wilfred Gary, in home nanny - 03/11/2024 12:41 PM EDT Patient Phone Numbers Spoke to [facility] via phone. Unusual Bruising or Bleeding : no Upcoming procedure: no Lovenox dose verified: compliant Labs were drawn ~ 4 hours after dose yes; compliant AntiXa results, Lovenox dose instructions, and next antiXa date communicated as noted by Pharmacist: Yes Thank You, Wilfred Gary [facility] Machine Operator II Centralized Clinical Pharmacy Services (Formerly Telepharmacy) 03/11/2024, 12:41 PM * Betzy Parra RPh - 03/11/2024 11:43 AM EDT Anticoagulation Clinic Current Lovenox Dose: 70mg every 12 hours AntiXa level 1.04 (goal 0.6-1.0) Dose instructions: Lovenox CONTINUE 70mg every 12 hours Repeat antiXa level in 5 weeks on 04/14 at [place]. Remind patient that labs must be drawn 4 hours after dose. SHIRA to contact patient with dose instructions as noted. Betzy Parra RPh 03/11/24, 11:44 AM documented in this encounter Plan of Treatment Upcoming Encounters Date Type Department Care Team (Late st Contact Info) Description 03/12/2024 7:30 AM EDT Nurse Only Hematology Oncology [address] [address] [place], Nurse Lab Hem/Onc [address] [place] [address] 03/12/2024 8:00 AM EDT Hem/Onc Treatment Hematology Oncology [address] [address] [place], Chair 5 Hem/Onc [address] [place] [address] 03/17/2024 9:00 AM EDT Rehab Services Speech Therapy, [place] [id number] [place] [address] Lisa Hairston, EXPLOSIVE ORDNANCE DISPOSAL SPECIALIST [address] [address] 03/24/2024 9:00 AM EDT Rehab Services Speech Therapy, [address] [address] Lisa Hairston, EXPLOSIVE ORDNANCE DISPOSAL SPECIALIST [address] [place] [address] 04/01/2024 1:00 PM EDT Rehab Services Speech [facility], [address] [address] Lisa Hairston, EXPLOSIVE ORDNANCE DISPOSAL SPECIALIST [address] [place] [address] 04/02/2024 8:15 AM EDT Nurse Only Hematology Oncology [address] [address] [place], Nurse Lab Hem/Onc [address] [place] [address] 04/02/2024 9:00 AM EDT Office Visit Hematology Oncology [facility], [address] [address] Diego Pena, SEWING MACHINE [facility] [address] 04/02/2024 10:00 AM EDT Hem/Onc Treatment Hematology Oncology [address] [address] [place], Chair 16 Hem/Onc [address] [place] [address] 04/08/2024 9:00 AM EDT Rehab Services Speech Therapy, [address] [address] Reginaldo Mendoza, EXPLOSIVE ORDNANCE DISPOSAL SPECIALIST [address] [place] [address] 04/14/2024 10:30 AM EDT Laboratory Laboratory [facility] [phone] Amaris, Lab Lock [address] [facility] [place] [address] 04/15/2024 6:15 AM EDT Anticoagulation Pharmacy Call Center WB 58-60 [facility] [place] [address] [facility], [facility] [address] [facility] [place] [address] 04/23/2024 7:15 AM EDT Nurse Only Hematology Oncology [facility], [place] [address] [place] [address] Pacheco, Nurse Lab Hem/Onc [facility] [place] [address] 04/23/2024 8:00 AM EDT Office Visit Hematology Oncology [facility], [place] [address] [place] [address] Velia Segundo PA-C [address] [place] [address] 04/23/2024 9:00 AM EDT Hem/Onc Treatment Hematology Oncology [facility], [place] [address] [place] [address] Pacheco, Chair 11 Hem/Onc [facility] [place] [address] 05/06/2024 9:20 AM EDT Office Visit Neurology [facility] [address] [place] [address] Kathy Pryor PA-C [address] [place] [address] 08/31/2024 8:40 AM EST Office Visit Pulmonary Medicine, [facility] 132 [facility] [place] [address] Wyatt Gallegos MD [address] [place] [address] Health Maintenance Due Date Last Done Comments [...] this encounter Medical Devices Implanted Type Area Project Finance Analyst Device Identifier Shelf Expiration Date Model / Serial / Lot Power Port 8fr Sngl Lumen Plas - [id number] Implanted:Qty: 1 on 04/24/2021 at [facility] CR BARD : PERIPHERAL VASCULAR [id number] 02/24/2022 [id number] / / [id number] Port Implant W/8f Poly Cath - [id number] Implanted:Qty: 1 on 10/15/2023 at [facility] CR BARD : PERIPHERAL VASCULAR [id number] 03/27/2025 [id number] / / [id number] documented as of this encounter Visit Diagnoses Diagnosis Acute deep vein thrombosis (DVT) of proximal vein of right lower extremity (HCC)- Primary Abnormal CT scan of lung Other nonspecific abnormal finding of lung field History of pulmonary embolism Personal history of pulmonary embolism 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 No Full Code 05/23/2021 12:21 PM 05/24/2021 9:38 PM This order reflects the patients wishes and were consensually agreed upon. Question Answer Comments Discussion of Advance Directives occurred with: Patient Care Teams Square Cutter Relationship Specialty Start Date End Date Matthew Herrmann PA-C [address] [place], [place] [address] [phone] PCP - General Physician Logistics Operations Manager 03/22/21 documented as of this encounter
--- OUTSIDE RECORDS SUMMARY | 2024-04-11 14:46 | External Medical Summary | Summary of Care ---
Author Name Unknown Organization [facility] Address [address] [place] [address] Phone [phone] Care Team Providers Care Cab Starter Name Role Phone Matthew Herrmann PA-C Primary Care Provider [phone] Reason for Visit * Reason Comments Memory Loss * Evaluate & Treat - Unlimited Visits (Within 10 days (routine)) - Pending Review Specialty Diagnoses / Procedures Referred By Yuli seay Referred To Contact Speech Pathology / Speech Pathology Diagnoses Cerebral infarction, unspecified (HCC) Yonathan Tomas CRNP [address] [place] [address] [address] Referral ID Status Reason Start Date Expiration Date Visits Requested Visits Authorized [id number] Pending Review Specialty Services Required 01/21/2024 07/19/2024 15 15 Encounter Details Date Type Department Care Team (Late st Contact Info) Description 2024 9:00 AM EDT Rehab Services Speech Therapy, [address] [phone] Reginaldo Mendoza, DAWOOD [address] [place] [address] Cerebral infarction, unspecified mechanism (HCC)* Allergies Active Allergy Reactions Criticality Noted Date Comments Carboplatin High 11/14/2021 Dyspnea, chest pain, hypoxia, sore throat, edema throat, flushing, mild hypotension Isosorbide Nitrate Other (Please comment) 07/22/2023 Headache documented as of this encounter (statuses as of 2024) Medications Medication Sig Dispensed Refills Start Date [...] Blister Dosing Unit 2 01/02/2024 4 Active Enoxaparin Sodium 80 MG/0.8ML Injection [...] as of this encounter (statuses as of 2024) Active Problems Problem Noted Date Diagnosed Date [...] as of this encounter (statuses as of 2024) Resolved Problems Problem Noted Date Diagnosed Date Resolved Date MSSA bacteremia 08/01/2021 08/07/2021 Sepsis 08/01/2021 08/07/2021 COPD, group B, by GOLD 2017 classification 05/08/2021 06/21/2021 Overview: Per COPD GOLD Classification Obstructive lung disease 04/10/2021 Overview: Per COPD GOLD Classification documented as of this encounter (statuses as of 2024) Immunizations Name Administration Dates Next Due COVID-19 mRNA, LNP-s, No Pre serve, 2-Dose Series (Pfizer) 09/23/2021 Pneumococcal Conjugate Vacci ne, 20-valent ([id number]) 12/12/2023(Deferred: Patient Refused - Renee Duarte MD) [...] as of this encounter Progress Notes * Reginaldo Mendoza SLP - 2024 12:31 PM EDT Outpatient Speech Therapy Daily Progress Note Speech Therapy, [place] [address] [facility] [address] Patient Name: John Brothers Date of : 1970 Age: [age] year old Date: Start of Care: 02/05/2024 Plan of Care Expiration Date: 03/04/2024 Visit Number: 3 Subjective: Patient reports he is doing well. Today is his birthday and his daughter is going fishing with him to celebrate when he leaves therapy. . Objective: Patient was given a written in which we provided the set up to a basic fly fishing set up. He was given a visual drawing to help him learn the equipment and set up. After studying the image and given education he was able to recall the information from multiple choice answers with semantic cues with approx. 70% accuracy. Assessment: John had a great session today. He was able to complete all tasks with some verbal cues. He was able to recall tasks from previous session without any cues. Plan: Recommend continued therapy to address higher level cognitive tasks including memory and recall of detail as well as word finding. TOTAL TIMES: 50 MINUTES Reginaldo Mendoza Msub acromial space. [facility]-HOTEL SUPERINTENDENT documented in this encounter Plan of Treatment Upcoming Encounters Date Type Department Care Team (Late st Contact Info) Description 02/25/2024 6:15 AM EDT Anticoagulation Pharmacy Call Center WB [address] [place] [address] [facility] 58 60 Public [facility] [place] [address] 02/25/2024 9:30 AM EDT Appointment Radiology, [address] [address] 03/05/2024 10:00 AM EDT Office Visit Hematology Oncology [facility], [address] [address] Kerri Foote MD [address] [place] [address] 03/10/2024 9:00 AM EDT Rehab Services Speech Therapy, [address] [address] Lisa Hairston, HOTEL SUPERINTENDENT [address] [place] [address] 03/17/2024 9:00 AM EDT Rehab Services Speech [facility], [address] [address] Lisa Hairston, HOTEL SUPERINTENDENT [address] [place] [address] 03/24/2024 9:00 AM EDT Rehab Services Speech [facility], [address] [address] Lisa Hairston, HOTEL SUPERINTENDENT [address] [place] [address] 05/06/2024 9:20 AM EDT Office Visit Neurology [facility] 200 [facility] [place] [address] Kathy Pryor PA-C [facility] [place] [address] 08/31/2024 8:40 AM EST Office Visit Pulmonary Medicine, [facility] [address] [place] [phone] Wyatt Gallegos MD [address] [place] [phone] Health Maintenance Due Date Last Done Comments [...] 11/06/2024 11/06/2023, 04/28, 09/19/2021, Additional history exists Lipid Panel 09/19/2026 09/19/2021, 1012/2012, 04/25/2010 Colonoscopy 08/13/2029 08/13/2019, 08/13/2019 Colorectal Cancer Screening 08/13/2029 GARDASIL-HPV IMMUNIZATION SERIES Aged Out No longer eligible based on patient's age to complete this topic MENINGOCOCCAL (MENACTRA/MENVEO) Aged Out No longer eligible based on patient's age to complete this topic documented as of this encounter Medical Devices Implanted Type Area Financial Adviser Device Identifier Shelf Expiration Date Model / Serial / Lot Power Port 8fr Sngl Lumen Plas - [id number] Implanted:Qty: 1 on 04/24/2021 at [facility] CR BARD : PERIPHERAL VASCULAR [id number] 02/24/2022 [id number] / / [id number] Port Implant W/8f Poly Cath - [id number] Implanted:Qty: 1 on 10/15/2023 at [facility] CR BARD : PERIPHERAL VASCULAR [id number] 03/27/2025 [id number] / / [id number] documented as of this encounter Visit Diagnoses [...] the patient have Health Care Power of Nuclear Operator? No Full Code 05/23/2021 12:21 PM 05/24/2021 9:38 PM This order reflects the patients wishes and were consensually agreed upon. Question Answer Comments Discussion of Advance Directives occurred with: Patient Care Teams Cab Starter Relationship Specialty Start Date End Date Matthew Herrmann PA-C [address] [place] [address] [phone] PCP - General Physician Dye Tub Tender 03/22/21 documented as of this encounter
--- OUTSIDE RECORDS SUMMARY | 2024-04-11 14:46 | External Medical Summary | Summary of Care ---
Author Name Unknown Organization [facility] Address [address] [place] [address] Phone [phone] Care Team Providers Care Fitter Helper Name Role Phone LukeharryMatthew PA-C Primary Care Provider [phone] Reason for Visit * Precert (Within 10 days (routine)) - Authorized Specialty Diagnoses / Procedures Referred By Yuli t Referred To Contact Radiology Diagnoses Primary malignant neoplasm of left lower lobe of lung (HCC) Malignant neoplasm of lower lobe, left bronchus or lung (HCC) Procedures CT CHEST/ABDOMEN/PELVIS WITH IV CONTRAST WITH ORAL CONTRAST Kerri Foote MD [address] [place] [address] Referral ID Status Reason Start Date Expiration Date V isits Requested Visits Authorized [id number] Authorized Precert 10/17/2023 11/20/[phone] Encounter Details Date Type Department Care Team (Latest Contact Info) Description 02/25/2024 9:27 AM EDT - 02/25/2024 11:59 PM EDT Hospital Encounter Radiology, [place] [address] [place] [address] Arrived Discharge Disposition: Home - Self Care Allergies Active Allergy Reactions Criticality Noted Date Comments Carboplatin High 11/14/2021 Dyspnea, chest pain, hypoxia, sore throat, edema throat, flushing, mild hypotension Isosorbide Nitrate Other (Please comment) 07/22/2023 Headache documented as of this encounter (statuses as of 02/26/2024) Medications Medication Sig Dispensed Refills Start Date [...] as of this encounter (statuses as of 02/26/2024) Active Problems Problem Noted Date Diagnosed Date [...] as of this encounter (statuses as of 02/26/2024) Resolved Problems Problem Noted Date Diagnosed Date Resolved Date MSSA bacteremia 08/01/2021 08/07/2021 Sepsis 08/01/2021 08/07/2021 COPD, group B, by GOLD 2017 classification 05/08/2021 06/21/2021 Overview: Per COPD GOLD Classification Obstructive lung disease 04/10/2021 Overview: Per COPD GOLD Classification documented as of this encounter (statuses as of 02/26/2024) Immunizations Name Administration Dates Next Due COVID-19 mRNA, LNP-s, No Pre serve, 2-Dose Series (Pfizer) 09/23/2021 Pneumococcal Conjugate Vacci ne, 20-valent ([id number]) 12/12/2023(Deferred: Patient Refused - Renee Duarte MD) [...] Care Team (Late st Contact Info) Description 03/03/2024 6:15 AM EDT Anticoagulation Pharmacy Call Center 58[address]60 [facility] [place] [address] [facility] 58 60 [place] [address] 03/05/2024 10:00 AM EDT Office Visit Hematology Oncology [facility] [address] [place] [address] Kerri Foote MD [address] [place] [address] 03/10/2024 9:00 AM EDT Rehab Services Speech Therapy, [address] [address] Lisa Hairston, FORESTRY HUNTER [address] [place] [address] 03/17/2024 9:00 AM EDT Rehab Services Speech [facility], [address] [address] Lisa Hairston, FORESTRY HUNTER [address] [place] [address] 03/24/2024 9:00 AM EDT Rehab Services Speech [facility], [address] [address] Lisa Hairston FORESTRY HUNTER [address] [place] [address] 05/06/2024 9:20 AM EDT Office Visit Neurology [facility] [address] [place] [address] Kathy Pryor PA-C [address] [place] [address] 08/31/2024 8:40 AM EST Office Visit Pulmonary Medicine, [facility] 132 [facility] [place] [address] Wyatt Gallegos MD [address] [place] [address] Pending Results Name Type Priority Associated Diagnoses Date /Time CT CHEST/ABDOMEN/PELVI S WITH IV CONTRAST WITH ORAL CONTRAST Medical Imaging Routine Primary malignant neoplasm of left lower lobe of lung (HCC) Malignant neoplasm of lower lobe, left bronchus or lung (HCC) 02/25/2024 11:21 AM EDT Health Maintenance Due Date Last [...] this encounter Medical Devices Implanted Type Area Weigher Bulker Device Identifier Shelf Expiration Date Model / Serial / Lot Power Port 8fr Sngl Lumen Plas - [id number] Implanted:Qty: 1 on 04/24/2021 at [facility] CR BARD : PERIPHERAL VASCULAR [id number] 02/24/2022 [id number] / / [id number] Port Implant W/8f Poly Cath - [id number] Implanted:Qty: 1 on 10/15/2023 at [facility] CR BARD : PERIPHERAL VASCULAR [id number] 03/27/2025 [id number] / / [id number] documented as of this encounter Visit Diagnoses Diagnosis Primary malignant neoplasm of left lower lobe of lung (HCC) Malignant neoplasm of lower lobe, bronchus, or lung Malignant neoplasm of lower lobe, left bronchus or lung (HCC) documented in this encounter Administered Medications Inactive Administered Medications - up to 3 most recent administrations Medication Order MAR Action Action Date Dose Rate Site Iohexol (Omnipaque) 9 MG/ML oral solution 1,000 mL 1,000 mL, Oral, ONCE, On Sat02/25/24 at 1124, For 1 dose, Radiology Medication Routing (Non-IR) Given 02/25/2024 11:24 AM EDT 750 mL Iopamidol (Isovue 370) inj 100 mL 100 mL, Intravenous, ONCE, On Sat02/25/24 at 1124, For 1 dose, Radiology Medication Routing (Non-IR) Given 02/25/2024 11:24 AM EDT 80 mL documented in this encounter Advance Directives Latest [...] the patient have Health Care Power of Audit Clerks Supervisor? No Full Code 05/23/2021 12:21 PM 05/24/2021 9:38 PM This order reflects the patients wishes and were consensually agreed upon. Question Answer Comments Discussion of Advance Directives occurred with: Patient Care Teams Fitter Helper Relationship Specialty Start Date End Date Matthew Herrmann PA-C [address] [place] [address] PCP - General Physician Learning Disabled Teacher 03/22/21 documented as of this encounter
--- OUTSIDE RECORDS SUMMARY | 2024-04-11 14:46 | External Medical Summary | Summary of Care ---
Author Name Unknown Organization [facility] Address [address] [place] [address] Phone [phone] Care Team Providers Care Willow Machine Operator Name Role Phone Matthew Herrmann PA-C Primary Care Provider +1 -[phone] Reason for Visit * Reason Comments Speech * Evaluate & Treat - Unlimited Visits (Within 10 days (routine)) - Pending Review Specialty Diagnoses / Procedures Referred By Yuli seay Referred To Contact Speech Pathology / Speech Pathology Diagnoses Cerebral infarction, unspecified (HCC) Yonathan Tomas CRNP [address] [place] [address] [address] Referral ID Status Reason Start Date Expiration Date Visits Requested Visits Authorized [id number] Pending Review Specialty Services Required 01/21/2024 07/19/2024 15 15 Encounter Details Date Type Department Care Team (Late st Contact Info) Description 02/10/2024 9:00 AM EDT Rehab Services Speech Therapy, [address] [address] Ursula Richardson CCC-FISHING TACKLE REPAIRER [address] [place] [address] Cerebral infarction, unspecified mechanism (HCC)* Allergies Active Allergy Reactions Criticality Noted Date Comments Carboplatin High 11/14/2021 Dyspnea, chest pain, hypoxia, sore throat, edema throat, flushing, mild hypotension Isosorbide Nitrate Other (Please comment) 07/22/2023 Headache documented as of this encounter (statuses as of 02/18/2024) Medications Medication Sig Dispensed Refills Start Date [...] as of this encounter (statuses as of 02/18/2024) Active Problems Problem Noted Date Diagnosed Date [...] as of this encounter (statuses as of 02/18/2024) Resolved Problems Problem Noted Date Diagnosed Date Resolved Date MSSA bacteremia 08/01/2021 08/07/2021 Sepsis 08/01/2021 08/07/2021 COPD, group B, by GOLD 2017 classification 05/08/2021 06/21/2021 Overview: Per COPD GOLD Classification Obstructive lung disease 04/10/2021 Overview: Per COPD GOLD Classification documented as of this encounter (statuses as of 02/18/2024) Immunizations Name Administration Dates Next Due COVID-19 mRNA, LNP-s, No Pre serve, 2-Dose Series (MedServe) 09/23/2021 Pneumococcal Conjugate Vacci ne, 20-valent ([id number]) 12/12/2023(Deferred: Patient Refused - Renee Duarte MD) [...] this encounter Progress Notes * Ursula Richardson, PÉREZ-FISHING TACKLE REPAIRER - 02/18/2024 7:27 AM EDT Outpatient Speech Therapy Daily Progress Note Speech Therapy, [place] [address] [facility] [address] Patient Name: John Brothers Date of : 1970 Age: [age] year old Date: 02/10/2024 Start of Care: 02/05/2024 Plan of Care Expiration Date: 03/04/2024 Visit Number: 2 Subjective: Patient reports he is feeling well, and feels that he is getting better. He also reports he did do a short distance drive with family in the vehicle and feels that went well. He was present for most of the session without his spouse, however she did come in at the end when the results of the CLQT were reviewed. Objective: Patient was given a written task to complete, he was asked to write driving directions from his house to the hospital. Step by step, as detailed as possible. He did extremely well with this task. His also reviewed at the end and noted there were no errors. He did well with turn by turn directions, no cues required. He was also given exercises for word finding and very general broad sentence completion tasks. He was noted to require increase time to complete phrases and sentencesat the beginning of the exercise, however after he began completing and as the task continued he was able to increase the speed at which he was generating a word to fill in the sentence. Increased thought formulation in the beginning of the exercise was noted. Cues for rehearsal,and visual cues were successful with increased speed for completion time. Assessment: Overall today John did well, he was able to complete written directions that were verydetailed to accurately depict directions from one destination to the next. He also worked on exercises to increase thought formulation and the speed of word finding in structured tasks. Results of his assessment were discussed with both John and his , and they were in agreement with the areas of his lower below average scores including language and memory. Plan: Recommend continued therapy to address higher level cognitive tasks including memory and recall of detail as well as word finding. TOTAL TIMES: 45 MINUTES Ursula Richardson M.S. PÉREZ-FISHING TACKLE REPAIRER documented in this encounter Plan of Treatment Upcoming Encounters Date Type Department Care Team (Late st Contact Info) Description 2024 9:00 AM EDT Rehab Services Speech Therapy, [place] [address] [place] [address] Reginaldo Mendoza, FISHING TACKLE REPAIRER [address] [place] [address] 02/25/2024 6:15 AM EDT Anticoagulation Pharmacy Call Center [address] [facility] [place] [address] C[facility], [facility] [address] 02/25/2024 9:30 AM EDT Appointment Radiology, [address] [address] 03/05/2024 10:00 AM EDT Office Visit [facility]ology [facility], [address] [address] Kerri Foote MD [address] [place] [address] 03/05/2024 2:00 PM EDT Rehab Services Speech Therapy, [place] [address] [place] [address] Lisa Hairston, DAWOOD [address] [place] [address] 05/06/2024 9:20 AM EDT Office Visit Neurology [facility] [address] [place] [address] Kathy Pryor PA-C [address] [place] [address] 08/31/2024 8:40 AM EST Office Visit Pulmonary Medicine, [facility] 132 [facility] [place] [address] Wyatt Gallegos MD [address] [facility] [place] [address] Health Maintenance Due Date Last Done [...] Additional history exists Lipid Panel 09/19/2026 09/19/2021, 10/12/2012, 04/25/2010 Colonoscopy 08/13/2029 08/13/2019, 08/13/2019 Colorectal Cancer Screening 08/13/2029 GARDASIL-HPV IMMUNIZATION SERIES Aged Out No longer eligible based on patient's age to complete this topic MENINGOCOCCAL (MENACTRA/MENVEO) Aged Out No longer eligible based on patient's age to complete this topic documented as of this encounter Medical Devices Implanted Type Area Director State Pharmacy Device Identifier Shelf Expiration Date Model / Serial / Lot Power Port 8fr Sngl Lumen Plas - [id number] Implanted:Qty: 1 on 04/24/2021 at [facility] CR BARD : PERIPHERAL VASCULAR [id number] 02/24/2022 [id number] / / [id number] Port Implant W/8f Poly Cath - [id number] Implanted:Qty: 1 on 10/15/2023 at [facility] CR BARD : PERIPHERAL VASCULAR [id number] 03/27/2025 [id number] / / [id number] documented as of this encounter Visit Diagnoses [...] the patient have Health Care Power of Clinical Specialist? No Full Code 05/23/2021 12:21 PM 05/24/2021 9:38 PM This order reflects the patients wishes and were consensually agreed upon. Question Answer Comments Discussion of Advance Directives occurred with: Patient Care Teams Willow Machine Operator Relationship Specialty Start Date End Date Matthew Herrmann PA-C [address] [place] [id number] PCP - General Physician Commissary Steward 03/22/21 documented as of this encounter
--- OUTSIDE RECORDS SUMMARY | 2024-04-11 14:46 | External Medical Summary | Summary of Care ---
Author Name Unknown Organization [facility] Address [address] [place] [address] Phone [phone] Care Team Providers Care Parcel Wrapper Name Role Phone Matthew Herrmann PA-C Primary Care Provider +1 -[phone] Reason for Visit * Evaluate & Treat - Unlimited Visits (Within 30 days (routine)) - Authorized Specialty Diagnoses / Procedures Referred By Yuli seay Referred To Contact Hematology/Oncology / Hematology Oncology Diagnoses 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) Matthew Herrmann PA-C [address] [place] [address] Referral ID Status Reason Start Date Expiration Date Visits Requested Visits Authorized [id number] Authorized Specialty Services Required 06/11/2023 06/11/[phone] Encounter Details Date Type Department Care Team (Latest Contact Info) Description 01/03/2024 10:30 AM EST Hem/Onc Treatment Hematology Oncology [facility], [place] [address] [place] [address] [place], [facility] 4 Hem/Onc [facility]note 2] [place] [address] Chemotherapy adverse reaction, initial encounter*; Chemotherapy induced [...] (Pfizer) 09/23/2021 Pneumococcal Conjugate Vacci ne, 20-valent ([id number]) 12/12/2023(Deferred: Patient Refused - Renee Duarte MD) [...] Center [address] [place] [address] [facility] [address] [place] [address] 02/25/2024 9:30 AM EDT Appointment Radiology, [address] [address] 03/05/2024 10:00 AM EDT Office Visit Hematology Oncology [facility], [place] [address] [place] [address] Kerri Foote MD [address] [place] [address] 03/10/2024 9:00 AM EDT Rehab Services Speech Therapy, [address] [address] Lisa Hairston, GRAIN SCOOPER [address] [place] [address] 03/17/2024 9:00 AM EDT Rehab Services Speech Therapy, [address] [address] Lisa Hairston, GRAIN SCOOPER [address] [place] [address] 03/24/2024 9:00 AM EDT Rehab Services Speech [facility], [address] [address] Lisa Hairston, GRAIN SCOOPER [address] [place] [address] 05/06/2024 9:20 AM EDT Office Visit Neurology [facility] 200 [facility] [place] [address] Kathy Pryor PA-C [address] [facility] [place] [address] 08/31/2024 8:40 AM EST Office Visit Pulmonary Medicine, [facility] 132 [facility] [place] [address] Wyatt Gallegos MD [address] [place] [address] Health Maintenance Due Date Last Done Comments [...] this encounter Medical Devices Implanted Type Area Selling Specialist Device Identifier Shelf Expiration Date Model / Serial / Lot Power Port 8fr Sngl Lumen Plas - [id number] Implanted:Qty: 1 on 04/24/2021 at [facility] CR BARD : PERIPHERAL VASCULAR [id number] 02/24/2022 [id number] / / [id number] Port Implant W/8f Poly Cath - [id number] Implanted:Qty: 1 on 10/15/2023 at [facility] CR BARD : PERIPHERAL VASCULAR [id number] 03/27/2025 [id number] / / [id number] documented as of this encounter Visit Diagnoses [...] the patient have Health Care Power of Curator H[employer]icultural [employer]? No Full Code 05/23/2021 12:21 PM 05/24/2021 9:38 PM This order reflects the patients wishes and were consensually agreed upon. Question Answer Comments Discussion of Advance Directives occurred with: Patient Care Teams Parcel Wrapper Relationship Specialty Start Date End Date Matthew Herrmann PA-C [address] [place] [address] PCP - General Physician Cold Header Operator 03/22/21 documented as of this encounter
--- OUTSIDE RECORDS SUMMARY | 2024-04-11 14:46 | External Medical Summary | Summary of Care ---
Author Name Unknown Organization [facility] Address [address] [facility] [place] [address] Phone [phone] Care Team Providers Care Dairy Powder Mixer Operator Name Role Phone Matthew Herrmann PA-C Primary Care Provider +1 -[phone] Reason for Visit * Reason Onset Date Comments Medication Refill 02/24/2024 Encounter Details Date Type Department Care Team (Late st Contact Info) Description 02/24/2024 Refill Hematology Oncology, [place] [address] [place] [address] Jessica Jeffers CRNP [address] [place] [address] History of pulmonary embolism Allergies Active Allergy Reactions Criticality Noted Date Comments Carboplatin High 11/14/2021 Dyspnea, chest pain, hypoxia, sore throat, edema throat, flushing, mild hypotension Isosorbide Nitrate Other (Please comment) 07/22/2023 Headache documented as of this encounter (statuses as of 02/24/2024) Medications Medication Sig Dispensed Refills Start Date [...] before bedtime. 48 mL 10 02/24/2024 Active Enoxaparin Sodium 80 MG/0.8ML Injection Solution Prefilled Syringe (Lovenox)Indication s:History of pulmonary embolism Inject 80 mg under the skin in the morning and 80 mg before bedtime. 48 mL 0 01/23/2024 Discontinue d(Refill) Hospital, Clinic, or Other Facility [...] as of this encounter (statuses as of 02/24/2024) Active Problems Problem Noted Date Diagnosed Date [...] as of this encounter (statuses as of 02/24/2024) Resolved Problems Problem Noted Date Diagnosed Date Resolved Date MSSA bacteremia 08/01/2021 08/07/2021 Sepsis 08/01/2021 08/07/2021 COPD, group B, by GOLD 2017 classification 05/08/2021 06/21/2021 Overview: Per COPD GOLD Classification Obstructive lung disease 04/10/2021 Overview: Per COPD GOLD Classification documented as of this encounter (statuses as of 02/24/2024) Immunizations Name Administration Dates Next Due COVID-19 mRNA, LNP-s, No Pre serve, 2-Dose Series (Where) 09/23/2021 Pneumococcal Conjugate Vacci ne, 20-valent ([id number]) 12/12/2023(Deferred: Patient Refused - Renee Duarte MD) Seasonal Influenza, PF, 6 M & above, IM , (FluLaval or Fluzone) 12/12/2023(Deferred: Patient Refused - Renee Durate MD) documented as of this encounter Social [...] Telephone Encounter - Ivette Foote MD - 02/24/2024 11:33 AM EDTSigned Prescriptions: Disp Refills Enoxaparin Sodium 80 MG/0.8ML Injection So*48 mL 10 Sig: Vepsgb23 mg under the skin in the morning and 80 mg before bedtime.Authorizing Provider: IVETTE FOOTE INI documented in this encounter Plan of Treatment Upcoming Encounters Date Type Department Care Team (Late st Contact Info) Description 02/25/2024 6:15 AM EDT Anticoagulation Pharmacy Call Center [address] [place] [address] Ccps, [facility] 58 60 [facility] [place] [address] 02/25/2024 9:30 AM EDT Appointment Radiology, [address] [address] 03/05/2024 10:00 AM EDT Office Visit Hematology Oncology [facility], [address] [phone] Ivette Foote MD [facility] [place] [address] 03/10/2024 9:00 AM EDT Rehab Services Speech [facility], [address] [address] Lisa Hairston, DIVISION LEADER [address] [place] [address] 03/17/2024 9:00 AM EDT Rehab Services Speech Therapy, [address] [address] Lisa Hairston, DIVISION LEADER [address] [place] [address] 03/24/2024 9:00 AM EDT Rehab Services Speech [facility], [address] [address] Lisa Hairston, DAWOOD 68 [facility] 205 [place] [address] 05/06/2024 9:20 AM EDT Office Visit Neurology [facility] [address] [place] [address] Kathy Pryor PA-C [address] [place] [address] 08/31/2024 8:40 AM EST Office Visit Pulmonary Medicine, [facility] 132 [facility] [place] [address] Wyatt Gallegos MD [address] [place] [address] Health Maintenance Due Date Last Done Comments [...] this encounter Medical Devices Implanted Type Area Car Hopper Device Identifier Shelf Expiration Date Model / Serial / Lot Power Port 8fr Sngl Lumen Plas - [id number] Implanted:Qty: 1 on 04/24/2021 at [facility] CR BARD : PERIPHERAL VASCULAR [id number] 02/24/2022 [id number] / / [id number] Port Implant W/8f Poly Cath - [id number] Implanted:Qty: 1 on 10/15/2023 at [facility] CR BARD : PERIPHERAL VASCULAR [id number] 03/27/2025 [id number] / / [id number] documented as of this encounter Visit Diagnoses Diagnosis History of pulmonary embolism Personal history of [...] the patient have Health Care Power of Hospice Care Consultant? No Full Code 05/23/2021 12:21 PM 05/24/2021 9:38 PM This order reflects the patients wishes and were consensually agreed upon. Question Answer Comments Discussion of Advance Directives occurred with: Patient Care Teams Dairy Powder Mixer Operator Relationship Specialty Start Date End Date Matthew Herrmann PA-C [address] [place] [address] PCP - General Physician Waste Water Worker 03/22/21 documented as of this encounter
--- OUTSIDE RECORDS SUMMARY | 2024-04-11 14:46 | External Medical Summary | Summary of Care ---
Author Name Unknown Organization [facility] Address [address] [place] [address] Phone [phone] Care Team Providers Care Barn Boss Name Role Phone Matthew Herrmann PA-C Primary Care Provider +1 -[phone] Reason for Visit * Evaluate & Treat - Unlimited Visits (Within 30 days (routine)) - Authorized Specialty Diagnoses / Procedures Referred By Yuli seay Referred To Contact Hematology/Oncology / Hematology Oncology Diagnoses 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) Matthew Herrmann PA-C [address] [place] [id number] Referral ID Status Reason Start Date Expiration Date Visits Requested Visits Authorized [id number] Authorized Specialty Services Required 06/11/2023 06/11/[phone] Encounter Details Date Type Department Care Team (Latest Contact Info) Description 01/03/2024 10:30 AM EST Hem/Onc Treatment Hematology Oncology [facility], [place] [address] [place] [address] [place], [facility] 4 Hem/[place]c [facility] [place] [address] Chemotherapy adverse reaction, initial encounter*; Chemotherapy induced [...] (Pfizer) 09/23/2021 Pneumococcal Conjugate Vacci ne, 20-valent ([id number]) 12/12/2023(Deferred: Patient Refused - Renee Duarte MD) [...] Center [address] [place] [address] [facility] [address] [place] [address] 02/25/2024 9:30 AM EDT Appointment Radiology, [address] [address] 03/05/2024 10:00 AM EDT Office Visit Hematology Oncology [facility], [place] [address] [place] [address] Kerri Foote MD [address] [place] [address] 03/10/2024 9:00 AM EDT Rehab Services Speech Therapy, [address] [address] Lisa Hairston, ELEVATOR BUILDER [address] [place] [address] 03/17/2024 9:00 AM EDT Rehab Services Speech Therapy, [address] [address] Lisa Hairston, ELEVATOR BUILDER [address] [place] [address] 03/24/2024 9:00 AM EDT Rehab Services Speech [facility], [address] [address] Lisa Hairston, ELEVATOR BUILDER [address] [place] [address] 05/06/2024 9:20 AM EDT Office Visit Neurology [facility] 200 [facility] [place] [address] Kathy Pryor PA-C [facility] [place] [address] 08/31/2024 8:40 AM EST Office Visit Pulmonary Medicine, [facility] 132 [facility] [place] [address] Wyatt Gallegos MD [address] [place] [address] Health Maintenance Due Date Last Done Comments [...] encounter Medical Devices Implanted Type Area Director Of Sales Support Device Identifier Shelf Expiration Date Model / Serial / Lot Power Port 8fr Sngl Lumen Plas - [id number] Implanted:Qty: 1 on 04/24/2021 at [facility] CR BARD : PERIPHERAL VASCULAR [id number] 02/24/2022 [id number] / / [id number] Port Implant W/8f Poly Cath - [id number] Implanted:Qty: 1 on 10/15/2023 at [facility] CR BARD : PERIPHERAL VASCULAR [id number] 03/27/2025 [id number] / / [id number] documented as of this encounter Visit Diagnoses [...] the patient have Health Care Power of Waste Transportation Technician? No Full Code 05/23/2021 12:21 PM 05/24/2021 9:38 PM This order reflects the patients wishes and were consensually agreed upon. Question Answer Comments Discussion of Advance Directives occurred with: Patient Care Teams Barn Boss Relationship Specialty Start Date End Date Matthew Herrmann PA-C [address] [place] [address] PCP - General Physician Shaker Operator 03/22/21 documented as of this encounter
--- OUTSIDE RECORDS SUMMARY | 2024-04-11 14:46 | External Medical Summary ---
Author Name Unknown Address Unknown Organization K01:[facility] - [facility] [address] [place] [address] Laboratory Report Ordering Provider Test Date Status PABLO TODD 03/10/2024 10:34:16 Final Standing order for Anti Xa<b r/>Please draw pt/inr every 1 to [address] [facility]
Observation Date Value Abnormality Reference (Units ) Status LMW Heparin [Units/volume] in Platelet poor plasma by Chromogenic method 03/10/2024 10:34:16 1.04 Above high normal <0.10 (IU/mL) Final Low molecular weight heparin 's therapeutic range is 0.6 - 1.00 I.U./mL. Performing Location [facility] - [address] [place] [address]
--- OUTSIDE RECORDS SUMMARY | 2024-04-11 14:46 | External Medical Summary | Summary of Care ---
Author Name Unknown Organization [facility] Address [address] [place] [address] Phone [phone] Care Team Providers Care Spouter Name Role Phone Matthew Herrmann PA-C Primary Care Provider +1 [phone] Reason for Visit * Reason Comments Outpatient Testing Encounter Details Date Type Department Care Team ([facility] st Contact Info) Description 03/10/2024 10:30 AM EDT Laboratory Laboratory Patient Service [address] [phone] [facility] Lab Lock [address] [place] [address] History of pulmonary embolism; Acute deep vein thrombosis (DVT) of proximal vein of right lower extremity (HCC) Allergies Active Allergy Reactions Criticality Noted Date Comments Carboplatin High 11/14/2021 Dyspnea, chest pain, hypoxia, sore throat, edema throat, flushing, mild hypotension Isosorbide Nitrate Other (Please comment) 07/22/2023 Headache documented as of this encounter (statuses as of 03/10/2024) Medications Medication Sig Dispensed Refills Start Date [...] morning. 60 Blister Dosing Unit 2 01/02/2024 06/05/202 4 Active dexAMETHasone 4 MG Oral Tablet (Decadron)Indication [...] as of this encounter (statuses as of 03/10/2024) Active Problems Problem Noted Date Diagnosed Date [...] as of this encounter (statuses as of 03/10/2024) Resolved Problems Problem Noted Date Diagnosed Date Resolved Date MSSA bacteremia 08/01/2021 08/07/2021 Sepsis 08/01/2021 08/07/2021 COPD, group B, by GOLD 2017 classification 05/08/2021 06/21/2021 Overview: Per COPD GOLD Classification Obstructive lung disease 04/10/2021 Overview: Per COPD GOLD Classification documented as of this encounter (statuses as of 03/10/2024) Immunizations Name Administration Dates Next Due COVID-19 mRNA, LNP-s, No Pre serve, 2-Dose Series (Way[place]) 09/23/2021 Pneumococcal Conjugate Vacci ne, 20-valent ([id number]) 12/12/2023(Deferred: Patient Refused - Renee Duarte MD) [...] Care Team (Late st Contact Info) Description 03/11/2024 6:15 AM EDT Anticoagulation Pharmacy Call Center WB 58[address]60 [facility] [place] [address] [facility] 58 60 [facility] [place] [address] 03/12/2024 7:30 AM EDT Nurse Only Hematology Oncology [facility], [place] [address] [place], [place] [phone] [place], Nurse Lab Hem/Onc [address] [place] [address] 03/12/2024 8:00 AM EDT Hem/Onc Treatment Hematology Oncology [facility], [address] [address] [place], Chair 5 Hem/Onc [facility] [place] [address] 03/17/2024 9:00 AM EDT Rehab Services Speech Therapy, [address] [address] Lisa Hairston, LACQUER MACHINE FEEDER [address] [place] [address] 03/24/2024 9:00 AM EDT Rehab Services Speech [facility], [address] [address] Lisa Hairston, LACQUER MACHINE FEEDER [address] [place] [address] 04/01/2024 1:00 PM EDT Rehab Services Speech [facility], [address] [address] Lisa Hairston, LACQUER MACHINE FEEDER [address] [place] [address] 04/02/2024 8:15 AM EDT Nurse Only Hematology Oncology [facility], [place] [address] [place] [address] [place], Nurse Lab Hem/Onc [facility] [place] [address] 04/02/2024 9:00 AM EDT Office Visit Hematology Oncology [facility], [address] [phone] Diego Pena CRNP [facility] [place] [address] 04/02/2024 10:00 AM EDT Hem/Onc Treatment Hematology Oncology [facility], [address] [address] [place], Chair 16 Hem/Onc [address] [place] [address] 04/08/2024 9:00 AM EDT Rehab Services Speech Therapy, [facility] [address] [place] [address] Lisa Hairston, LACQUER MACHINE FEEDER [address] [address] 04/23/2024 7:15 AM EDT Nurse Only Hematology Oncology [facility], [address] [address] [place], Nurse Lab Hem/Onc [address] [place] [address] 04/23/2024 8:00 AM EDT Office Visit Hematology Oncology apper [facility], [address] [phone] Velia Segundo PA-C [address] [place] [address] 04/23/2024 9:00 AM EDT Hem/Onc Treatment Hematology Oncology [facility], [address] [address] [place], Chair 11 Hem/Onc [address] [place] [address] 05/06/2024 9:20 AM EDT Office Visit Neurology [facility] [place] [address] [place] [address] Kathy Pryor PA-C [address] [place] [address] 08/31/2024 8:40 AM EST Office Visit Pulmonary Medicine, [facility] 132 [facility] [place] [address] Wyatt Gallegos MD [address] [place] [phone] Pending Results Name Type Priority Associated Diagnoses Date /Time HEPARIN, LOW MOLECULAR WEIGHT Lab Routine History of pulmonary embolism Acute deep vein thrombosis (DVT) of proximal vein of right lower extremity (HCC) 03/10/2024 10:34 AM EDT Health Maintenance Due Date Last [...] this encounter Medical Devices Implanted Type Area Graphite Grinder Device Identifier Shelf Expiration Date Model / Serial / Lot Power Port 8fr Sngl Lumen Plas - [id number] Implanted:Qty: 1 on 04/24/2021 at [facility] CR BARD : PERIPHERAL VASCULAR [id number] 02/24/2022 [id number] / / [id number] Port Implant W/8f Poly Cath - [id number] Implanted:Qty: 1 on 10/15/2023 at [facility] CR BARD : PERIPHERAL VASCULAR [id number] 03/27/2025 [id number] / / [id number] documented as of this encounter Visit Diagnoses Diagnosis History of pulmonary embolism Personal history of pulmonary embolism Acute deep vein thrombosis (DVT) of proximal vein of right lower extremity (HCC) documented in this encounter Advance Directives [...] the patient have Health Care Power of Paintless Dent Repair Technician? No Full Code 05/23/2021 12:21 PM 05/24/2021 9:38 PM This order reflects the patients wishes and were consensually agreed upon. Question Answer Comments Discussion of Advance Directives occurred with: Patient Care Teams Spouter Relationship Specialty Start Date End Date Matthew Herrmann PA-C [address] [place], [place] [address] [place] [address] PCP - General Physician Web Site Manager 03/22/21 documented as of this encounter
--- OUTSIDE RECORDS SUMMARY | 2024-04-11 14:47 | External Medical Summary ---
Author Name Unknown Address Unknown Organization [address] [address] [facility] [address] Laboratory Report Ordering Provider Test Date Status JOSE STEELE 02/13/2024 09:47:44 Final Observation Date Value Abnormality Reference (Units ) Status SYNC LEUKOCYTES IN BLOOD BY AUTOMATED COUNT 02/13/2024 09:47:44 5.26 4.00-10.80 (K/uL) Final Segs 02/13/2024 09:47:44 57.2 40.0-75.0 (%) Final Lymphs % 02/13/2024 09:47:44 29.7 18.0-42.0 (%) Final Monos 02/13/2024 09:47:44 8.9 1.0-11.0 (%) Final Eosinophils 02/13/2024 09:47:44 2.7 0.0-6.0 (%) Final Basos 02/13/2024 09:47:44 1.1 0.0-2.0 (%) Final Immature Granulocyte, Percent 02/13/2024 09:47:44 0.4 0.0-2.0 (%) Final Absolute Segs 02/13/2024 09:47:44 3.01 1.80-7.70 (K/uL) Final Lymphs, absolute 02/13/2024 09:47:44 1.56 1.00-4.80 (K/ul) Final Monos, Abs 02/13/2024 09:47:44 0.47 0.00-1.10 (K/uL) Final Eos, Abs 02/13/2024 09:47:44 0.14 0.00-0.70 (K/uL) Final Basos, Abs 02/13/2024 09:47:44 0.06 0.00-0.20 (K/uL) Final Immature Granulocytes, Number 02/13/2024 09:47:44 0.02 0.00-0.20 (K/uL) Final Performing Location [facility] - [address] [place] [address]
--- OUTSIDE RECORDS SUMMARY | 2024-04-11 14:47 | External Medical Summary | Summary of Care ---
Author Name Unknown Organization [facility] Address [address] [place] [address] Phone [phone] Care Team Providers Care Boat Officer Name Role Phone Matthew Herrmann PA-C Primary Care Provider [phone] Reason for Visit * Evaluate & Treat - Unlimited Visits (Within 10 days (routine)) - Authorized Specialty Diagnoses / Procedures Referred By Yuli seay Referred To Contact Hematology/Oncology / Hematology Oncology Diagnoses Malignant neoplasm of unspecified part of unspecified bronchus or lung (HCC) Yonathan Tomas CRNP [address] [place] [address] Referral ID Status Reason Start Date Expiration Date Visits Requested Visits Authorized [id number] Authorized Specialty Services Required 11/05/2023 11/04/[phone] Encounter Details Date Type Department Care Team (Latest Contact Info) Description 01/23/2024 9:30 AM EDT Hem/Onc Treatment Hematology Oncology [facility], [place] [address] [place] [address] [place], [facility] 4 Hem/Onc [address] [place] [phone] Chemotherapy adverse reaction, initial encounter*; Chemotherapy induced [...] as of this encounter (statuses as of 02/14/2024) Medications Medication Sig Dispensed Refills Start Date [...] 60 Blister Dosing Unit 2 01/02/2024 Active Hospital, Clinic, or Other Facility Administered [...] as of this encounter (statuses as of 02/14/2024) Active Problems Problem Noted Date Diagnosed Date [...] as of this encounter (statuses as of 02/14/2024) Resolved Problems Problem Noted Date Diagnosed Date Resolved Date MSSA bacteremia 08/01/2021 08/07/2021 Sepsis 08/01/2021 08/07/2021 COPD, group B, by GOLD 2017 classification 05/08/2021 06/21/2021 Overview: Per COPD GOLD Classification Obstructive lung disease 04/10/2021 Overview: Per COPD GOLD Classification documented as of this encounter (statuses as of 02/14/2024) Immunizations Name Administration Dates Next Due COVID-19 mRNA, LNP-s, No Pre serve, 2-Dose Series (Arimaz) 09/23/2021 Pneumococcal Conjugate Vacci ne, 20-valent ([id number]) 12/12/2023(Deferred: Patient Refused - Renee Duarte MD) [...] as of this encounter Nursing Notes * Kamryn Rojas RN - 01/23/2024 10:01 AM EDT Safety and Risk for Injury Patient will remain free from injury. Ensure appropriate safety devices are available. Provide and maintain safe environment. Goals: see above Possible barriers to meeting goals: iv infusion Stability of the patient: Moderately stable - low risk of patient condition declining or worsening Summary regarding today's goals: Met: no falls Functional status at today's visit: Ambulatory and capable of all selfcare but unable to carry out any work activities. Up and about more than 50% of waking hours 0. * Nova Smith RN - 01/23/2024 9:26 AM EDT Pre-chemo checklist Chemo/Immune agents :::taxol Consent for chemotherapy drug treatment complete, dated, and signed? 09/23/2023 Is this a research protocol? no Treatment lab parameters met? Yes Has treatment weight changed > than 10% No Treatment preauthorized? Yes Blood pressure N/A Urine protein N/A Chemo education completed for new therapies? N/A Return appointment scheduled Yes Orders released Per Jessica WALKER patient is good for taxol today documented in this encounter Plan of Treatment Upcoming Encounters Date Type Department Care Team (Late st Contact Info) Description 02/18/2024 6:15 AM EDT Anticoagulation Pharmacy Call Center 58[address] [place] [address] [facility] 58 [address] [place] [address] 2024 9:00 AM EDT Rehab Services Speech Therapy, [address] [address] Reginaldo Mendoza, CHAINSTITCH SEAT JOINER [address] [place] [address] 02/25/2024 9:30 AM EDT Appointment Radiology, [address] [phone] 03/04/2024 9:00 AM EDT Rehab Services Speech Therapy, [address] [address] Reginaldo Mendoza, CHAINSTITCH SEAT JOINER [address] [place] [address] 03/05/2024 10:00 AM EDT Office Visit Hematology Oncology [facility], [address] [phone] Kerri Foote MD [address] [place] [address] 05/06/2024 9:20 AM EDT [facility] [address] Kathy Pryor PA-C [address] [facility] [address] 08/31/2024 8:40 AM EST Office Visit Pulmonary Medicine, [facility] 132 [facility] [place] [address] Wyatt Gallegos MD [address] [facility] [place] [phone] Scheduled Orders Name Type Priority Associated Diagnoses Orde r Schedule TSH WITH FREE T4 IF INDICATED Lab STAT Chemotherapy adverse reaction, initial encounter Chemotherapy induced nausea and vomiting Encounter for antineoplastic chemotherapy Malignant neoplasm of lower lobe, left bronchus or lung (HCC) 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) Expected: 01/23/2024 (Approximate), Expires: 07/21/2024 GLUCOSE Lab STAT Chemotherapy adverse reaction, initial encounter Chemotherapy induced nausea and vomiting Encounter for antineoplastic chemotherapy Malignant neoplasm of lower lobe, left bronchus or lung (HCC) 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) Expected: 01/23/2024 (Approximate), Expires: 07/21/2024 Health Maintenance Due Date Last Done Comments [...] Additional history exists Lipid Panel 09/19/2026 09/19/2021, 10/0 12/2012, 04/25/2010 Colonoscopy 08/13/2029 08/13/2019, 08/13/2019 Colorectal Cancer Screening 08/13/2029 GARDASIL-HPV IMMUNIZATION SERIES Aged Out No longer eligible based on patient's age to complete this topic MENINGOCOCCAL (MENACTRA/MENVEO) Aged Out No longer eligible based on patient's age to complete this topic documented as of this encounter Medical Devices Implanted Type Area Binman Device Identifier Shelf Expiration Date Model / Serial / Lot Power Port 8fr Sngl Lumen Plas - [id number] Implanted:Qty: 1 on 04/24/2021 at [facility] CR BARD : PERIPHERAL VASCULAR [id number] 02/24/2022 [id number] / / [id number] Port Implant W/8f Poly Cath - [id number] Implanted:Qty: 1 on 10/15/2023 at [facility] CR BARD : PERIPHERAL VASCULAR [id number] 03/27/2025 [id number] / / [id number] documented as of this encounter Results * (ABNORMAL) COMPREHENSIVE METABOLIC PANEL (02/13/2024 9:47 AM EDT) BUN 11 6 - 20 mg/dL 02/13/2024 10:26 AM EDT [facility] Creatinine 0.9 0.6 - 1.2 mg/dL 02/13/2024 10:26 AM EDT [facility] Estimated Glomerular Filtration Rate >90 >=60 mL/min 02/13/2024 10:26 AM EDT [facility] Comment:eGFR is calculated b ased on the CKD-EPI 2020 equation Sodium 143 135 - 146 mmol/L 02/13/2024 10:26 AM EDT [facility] Potassium 3.7 3.5 - 5.1 mmol/L 02/13/2024 10:26 AM EDT [facility] Chloride 108(H) 98 - 107 mmol/L 02/13/2024 10:26 AM EDT [facility] CO2 27 22 - 32 mmol/L 02/13/2024 10:26 AM EDT [facility] Anion Gap 8 7 - 15 mmol/L 02/13/2024 10:26 AM EDT [facility] Glucose 126(H) 70 - 120 mg/dL 02/13/2024 10:26 AM EDT [facility] Albumin 4.0 3.8 - 5.0 g/dL 02/13/2024 10:26 AM EDT [facility] AST 24 10 - 50 U/L 02/13/2024 10:26 AM EDT [facility] Alkaline Phosphatase 86 35 - 130 U/L 02/13/2024 10:26 AM EDT [facility] Bilirubin, Total 0.4 <=1.2 mg/dL 02/13/2024 10:26 AM EDT [facility] Calcium 9.2 8.4 - 10.2 mg/dL 02/13/2024 10:26 AM EDT [facility] Protein 6.8 6.0 - 8.3 g/dL 02/13/2024 10:26 AM EDT [facility] ALT 35 10 - 50 U/L 02/13/2024 10:26 AM EDT [facility] Blood Blood sample taken from central line / Unknown Central Line / Unknown 02/13/2024 9:47 AM EDT 02/13/2024 9:55 AM EDT Kerri Foote MD LAB BLOOD ORDERAB LES LABORATORY [facility] [address] [place] [address] documented in this encounter Visit Diagnoses Diagnosis [...] mg 50 mg, Oral, ONCE, On Ofe 01/23/24 at 1030, For 1 dose Given 01/23/2024 9:52 AM EDT 50 mg Famotidine (Pepcid) tab 20 mg 20 mg, Oral, ONCE, On Ofe 01/23/24 at 1030, For 1 dose Given 01/23/2024 9:52 AM EDT 20 mg hEParin 100 UNIT/ML Lock Flush inj 500 Units 500 Units (5 mL), IV Lock, PRN Other, IV Flush, Starting on Ofe 01/23/24 at 0928, Until Sat01/23/24 at 2017, For 24 hours, Do not flush if lock, PICC, or central line not in place; IV infusing or unable to flush. Given 01/23/2024 2:06 PM EDT 500 Units NSS infusion Intravenous, at 50 mL/hr, PRN, Starting on Sat01/23/24 at 1030, Until Sat01/23/24 at 2017, Maintenance line Rate Change 01/23/2024 2:06 PM EDT 350 mL/hr Start Infusion 01/23/2024 9:57 AM EDT 50 mL/hr ondansetron (Zofran) tab 8 mg 8 mg, Oral, ONCE, On Ofe 01/23/24 at 1000, For 1 dose Given 01/23/2024 9:52 AM EDT 8 mg PACLitaxel (Taxol) 387 mg in NSS 500 mL infusion 387 mg (rounded from 386.75 mg = 175 mg/m2 2.21 m2 Treatment Plan BSA from Recorded weight), IV Piggyback, at 166.67 mL/hr Administer over 180 Minutes, Administer through 0.22 micron low protein binding filter!, ONCE, 1 dose, On Ofe 01/23/24 at 1130 Start Infusion 01/23/2024 10:41 AM EDT 387 mg 166.67 mL/hr sodium chloride 0.9 % flush central line 10 mL 10 mL, IV Push, PRN Other, IV Flush, Starting on Sat01/23/24 at 0928, Until Sat01/23/24 at 2017, For 24 hours, Do not flush if lock, PICC, or central line not in place; IV infusing or unable to flush. Given 01/23/2024 2:06 PM EDT 10 mL Given 01/23/2024 9:54 AM EDT 10 mL documented in this encounter Advance Directives [...] the patient have Health Care Power of Audio Visual Secretary? No Full Code 05/23/2021 12:21 PM 05/24/2021 9:38 PM This order reflects the patients wishes and were consensually agreed upon. Question Answer Comments Discussion of Advance Directives occurred with: Patient Care Teams Boat Officer Relationship Specialty Start Date End Date Matthew Herrmann PA-C [address] [place] [address] [place] [address] PCP - General Physician Plastic Parts Fabricator Trimmer 03/22/21 documented as of this encounter
--- OUTSIDE RECORDS SUMMARY | 2024-04-11 14:47 | External Medical Summary | Summary of Care ---
Author Name Unknown Organization [facility] Address [address] [place] [address] Phone [phone] Care Team Providers Care Fish Tender Name Role Phone Matthew Herrmann PA-C Primary Care Provider [phone] Reason for Visit * Evaluate & Treat - Unlimited Visits (Within 10 days (routine)) - Authorized Specialty Diagnoses / Procedures Referred By Yuli seay Referred To Contact Hematology/Oncology / Hematology Oncology Diagnoses Malignant neoplasm of unspecified part of unspecified bronchus or lung (HCC) Yonathan Tomas CRNP [address] [place] [address] Referral ID Status Reason Start Date Expiration Date Visits Requested Visits Authorized [id number] Authorized Specialty Services Required 11/05/2023 11/04/[phone] Encounter Details Date Type Department Care Team (Latest Contact Info) Description 01/23/2024 9:30 AM EDT Hem/Onc Treatment Hematology Oncology [facility], [place] [address] [place] [address] [place], [facility] 4 Hem/Onc [address] [place] [phone] Chemotherapy adverse reaction, initial encounter*; Chemotherapy induced [...] mRNA, LNP-s, No Pre serve, 2-Dose Series (Sigmascreening) 09/23/2021 Pneumococcal Conjugate Vacci ne, 20-valent ([id number]) 12/12/2023(Deferred: Patient Refused - Renee Duarte MD) [...] AM EDT Anticoagulation Pharmacy Call Center [address] [place] [address] [facility] 58 [address] [place] [address] 2024 9:00 AM EDT Rehab Services Speech Therapy, [address] [address] Reginaldo Mendoza, FORESTRY FARM LABORER [address] [place] [address] 02/25/2024 9:30 AM EDT Appointment Radiology, [address] [phone] 03/04/2024 9:00 AM EDT Rehab Services Speech Therapy, [address] [address] Reginaldo Mendoza, FORESTRY FARM LABORER [address] [place] [address] 03/05/2024 10:00 AM EDT Office Visit Hematology Oncology [facility], [address] [phone] Kerri Foote MD [address] [place] [address] 05/06/2024 9:20 AM EDT Office Visit Neurology [facility] [place] [address] Kathy Pryor PA-C 200 [facility] [place] [address] 08/31/2024 8:40 AM EST Office Visit Pulmonary Medicine, [facility] 132 [facility] [place] [address] Wyatt Gallegos MD [address] [facility] [place] [phone] Scheduled Orders Name Type Priority Associated Diagnoses [...] this encounter Medical Devices Implanted Type Area Muck Operator Device Identifier Shelf Expiration Date Model / Serial / Lot Power Port 8fr Sngl Lumen Plas - [id number] Implanted:Qty: 1 on 04/24/2021 at [facility] CR BARD : PERIPHERAL VASCULAR [id number] 02/24/2022 [id number] / / [id number] Port Implant W/8f Poly Cath - [id number] Implanted:Qty: 1 on 10/15/2023 at [facility] CR BARD : PERIPHERAL VASCULAR [id number] 03/27/2025 [id number] / / [id number] documented as of this encounter Results * [...] Foote MD LAB BLOOD ORDERAB LES LABORATORY [facility] [address] [place] [address] documented in this encounter Visit [...] the patient have Health Care Power of Sales Team Member? No Full Code 05/23/2021 12:21 PM 05/24/2021 9:38 PM This order reflects the patients wishes and were consensually agreed upon. Question Answer Comments Discussion of Advance Directives occurred with: Patient Care Teams Fish Tender Relationship Specialty Start Date End Date Matthew Herrmann PA-C [address] [place] [address] [place] [address] PCP - General Physician Plant Protection Superintendent 03/22/21 documented as of this encounter
--- OUTSIDE RECORDS SUMMARY | 2024-04-11 14:47 | External Medical Summary | Summary of Care ---
Author Name Unknown Organization [facility] Address [address] [place] [address] Phone [phone] Care Team Providers Care Manager Search Engine Name Role Phone Matthew Hrermann PA-C Primary Care Provider [phone] [phone] Reason for Visit * Reason Comments Speech * Evaluate & Treat - Unlimited Visits (Within 10 days (routine)) - Authorized Specialty Diagnoses / Procedures Referred By Yuli seay Referred To Contact Speech Pathology / Speech Pathology Diagnoses Cerebral infarction, unspecified (HCC) Yonathan Tomas CRNP [address] [place] [address] [address] Referral ID Status Reason Start Date Expiration Date Visits Requested Visits Authorized [id number] Authorized Specialty Services Required 01/21/2024 07/19/2024 15 15 Encounter Details Date Type Department Care Team (Late st Contact Info) Description 02/05/2024 9:00 AM EDT Rehab Services Speech Therapy, [address] [address] Ursula Richardson CCC-HARBOR BOAT PILOT [address] [place] [address] Cerebral infarction, unspecified mechanism (HCC)* Allergies Active Allergy Reactions Criticality Noted Date Comments Carboplatin High 11/14/2021 Dyspnea, chest pain, hypoxia, sore throat, edema throat, flushing, mild hypotension Isosorbide Nitrate Other (Please comment) 07/22/2023 Headache documented as of this encounter (statuses as of 02/07/2024) Medications Medication Sig Dispensed Refills Start Date [...] as of this encounter (statuses as of 02/07/2024) Active Problems Problem Noted Date Diagnosed Date [...] as of this encounter (statuses as of 02/07/2024) Resolved Problems Problem Noted Date Diagnosed Date Resolved Date MSSA bacteremia 08/01/2021 08/07/2021 Sepsis 08/01/2021 08/07/2021 COPD, group B, by GOLD 2017 classification 05/08/2021 06/21/2021 Overview: Per COPD GOLD Classification Obstructive lung disease 04/10/2021 Overview: Per COPD GOLD Classification documented as of this encounter (statuses as of 02/07/2024) Immunizations Name Administration Dates Next Due COVID-19 mRNA, LNP-s, No Pre serve, 2-Dose Series ([employer]) 09/23/2021 Pneumococcal Conjugate Vacci ne, 20-valent ([id number]) 12/12/2023(Deferred: Patient Refused - Renee Duarte MD) [...] this encounter Progress Notes * Ursula Richardson, PÉREZ-HARBOR BOAT PILOT - 02/07/2024 7:53 AM EDT COGNITIVE COMMUNICATION ASSESSMENT Speech Language Pathology Speech Therapy, [place] [address] [facility] [address] Patient Name: John Brothers Date of : 1970 Age: [age] year old Insurance: Payor: [facility] Plan: [facility] Product Type: *No Product type* Payor: [facility] TPA Plan: [facility] PEBTF [id number] Product Type: *No Product type* Authorization for 15 visits 01/21/24- APPROX. 07/19/24 [id number] Date: 02/07/2024 Patient Verified by: Name and Date of Birthday Onset Date: July 2023 Start of Care: 02/05/2024 Plan of Care Expiration Date: 02/05/2024- 03/04/2024 Visit Number: 1 Referring Physician: DENISE Cleveland Primary Care Physician: Matthew Herrmann PA-C Encounter Diagnosis: ICD-10-CM 1. Cerebral infarction, unspecified mechanism (HCC) I63.9 Reason for Speech Therapy Referral: Memory and word finding difficulties in speech. History: Patient has a significant medical history. 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 In July of 2023. At that time he had increased difficulty with swallowing and speech and language. He did have an evaluation completed here on 10/11/2023. He received one session and then did not continue further services. He is back for re-evaluation with his present. He states his swallowing has improved significantly, but his does note concerns with some memory and expressing language concerns at time. They wish to improve overallcognitive function and hope that he can be come more independent to return to driving, and other ADL tasks independently. Prior Functional Level: Reported by Patient and Family/Friends Communication and Cognition: Within functional limits no concerns prior to stoke in 07/2023. Occupation: Retired Barriers to Learning: None Known and Visual Impairments Hearing Acuity: Within normal limits LEVEL OF ALERTNESS: Alert/Focused: within normal limits Alert/Oriented : within normal limits AUDITORY COMPREHENSION: Yes/No Questions: within normal limits Personal: within normal limits [place]: within normal limits Abstract: within normal limits Body Part Identification: within normal limits Right/Left Discrimination: within normal limits Commands Simple: within normal limits Complex: within normal limits Comprehension Words: within normal limits Sentences: within normal limits Paragraphs: within normal limits Conversation: within normal limits VERBAL EXPRESSION: Automatic Speech: within normal limits Spontaneous Utterances Words: within normal limits Sentences: within normal limits Conversation: within normal limits Sentence formation: within normal limits Naming in categories: mild impairment SPEECH MECHANISM: Oral Motor: within functional limits- mild left facial droop (slight) Speech Intelligibility: within normal limits Dysarthria: absent Apraxia Oral: absent Verbal: absent COGNITIVE-COMMUNICATION SKILLS: The Cognitive Linguistic Quick Test (CLQT) was administered. The CLQT is a criterion-referenced test utilized to assess five cognitive domains including attention, memory, language, executive functions, and visuospatial skills in adults aged 18-89 with acquired neurological dysfunction. Task Scores Personal Facts: 8 Symbol Cancellation: 12 Confrontation Namin Clock Drawin Story Retellin* Symbol Trails: 9 Generative Namin* Design Memory: 6 Mazes: 8 Design Generation: 9 Auditory Comprehension:19 *= scores that fall below the cut score for corresponding age group Domain/Index Scores and Severity Rating (WNL, Mild, Mod, Severe) Attention:196 (WFL) Memory: 144 (MILD) Executive Functions: 30 (WFL) Language: 26 (MILD) Visuospatial Skills:99 (WFL) Clock Drawin (WFL) Non-Linguistic Cognition: 44(WFL) Linguistic/Aphasia: 45 (WFL) Composite Severity Ratin.6 (Within Normal limits) - Assessment / Diagnosis: overall Mild deficits in the areas of memory and language, in which were noted in the CLQT. He had difficulty with generative naming tasks, increased response time for answering overal open ended questions in conversation, and thought formulation time was increased. His memory with recall of detail was decreased, and he was able to identify this task was challenging. Overall his composite score is on the low end of normal. However, he does have mild impairment with the above noted areas of Memory and Language, his scores for both were below the normal range for his age, however is should be noted that his overall normal composite rating score is a result of the higher scores in other areas of design memory, mazes, design generation, and clock drawing. The below average areas are the areas that both he and his are noting difficulty in, It is recommended that he attend skilled ST sessions 1xweek for 4 weeks to instruct on compensatory strategies for word find ing/naming, and techniques for memory and recall of detail. The goal is to increase his overall independence at home in these areas of decline. Swallowing Function. ORAL MECHANISM EXAM: Facial Symmetry Impaired - slight left sided droop Labial Function Within functional limits Lingual Function Within functional limits Dentition: Natural PROTECTIVE MECHANISMS: Volitional Swallow Within Functional Limits Volitional Throat Clearing Within Functional Limits Volitional Cough Within Functional Limits Vocal Quality Within Functional Limits Tracheostomy Tube: Not Present Ventilator Status: Not Applicable SWALLOWING FUNCTION: The following consistencies were evaluated: Regular and thin ORAL PREPARATION PHASE: Difficulty securing bolus: No Anterior loss of bolus: No Mastication: within functional limits/ slightly extended Tongue thrusting: No ORAL PHASE: Increased oral transit time (greater than 1 sec.): No Oral residue after swallow: Minimal PHARYNGEAL PHASE Delayed/absent swallow: No Nasal penetration: No Wet vocal quality after swallow: No Cough after swallow: No Throat clearing after swallow: No Compensatory Strategies Utilized: small sips/slow rate. Overall swallowing function was within functional limits. He does have slight extended mastication,and utilizes self strategies to assist including slow rate of intake. No s/s of aspiration were noted upon evaluation, it is recommended he continue his current diet, if swallowing difficulty increases than an outpatient VFSS would be recommended, however at this time not indicated. Cognitive-Communication Rehab Potential: good RECOMMENDATIONS / TREATMENT PLAN: Pkbbhu-Anblnhsu-Fhbyeowwv-Communication Therapy: Indicated 1x week for 4 weeks buttermaker continuous churn goal- (4 weeks) 03/04/2024 Improve overall cognitive linguistic functioning in the areas of Memory and language to WF. Short Term Communication Goals: John will name 15 category members in a timed 1 minute period to increase overall naming/thought formulation. John will utilize compensatory memory strategies independently at 90% of opportunities given to recall detail for completion of IADL tasks. Providers Signature: Date: Comments: PLEASE SIGN AND FAX TO [phone] Ursula Richardson M.S. PÉREZ-HARBOR BOAT PILOT 02/07/2024 7:53 AM documented in this encounter Plan of Treatment Upcoming Encounters Date Type Department Care Team (Late st Contact Info) Description 02/10/2024 9:00 AM EDT Rehab Services Speech Therapy, [facility] [address] [facility] [place] [address] Ursula Richardson CCC-HARBOR BOAT PILOT [address] [place] [address] 02/11/2024 6:15 AM EDT [facility] Call Center 58[address] [facility] [place] [address] [facility] 58 60 [facility] [place] [address] 02/12/2024 8:00 AM EDT PulmDiagnostic Pulmonary Function Lab, [facility] [address] [place] [address] [place], [address] [place] [address] 02/12/2024 10:20 AM EDT Office Visit Pulmonary Medicine, [facility] [address] [place] [address] Wyatt Gallegos MD [address] [place] [address] 02/13/2024 9:45 AM EDT Nurse Only Hematology Oncology [facility], [address] [address] [place], Nurse Lab Hem/Onc [address] [place] [address] [id number] 02/13/2024 10:30 AM EDT Office Visit Hematology Oncology [address] [address] Kerri Foote MD [facility] [address] [place], [place] [id number] 02/13/2024 11:30 AM EDT Hem/Onc Treatment Hematology Oncology [address] [address] [place], Chair 4 Hem/Onc [address] [place] [address] [id number] 2024 9:00 AM EDT Rehab Services Speech Therapy, [address] [address] Ursula Richardson [facility] P[facility]OT [address] [place] [address] 02/25/2024 9:30 AM EDT Appointment Radiology, [address] [phone] 03/04/2024 9:00 AM EDT Rehab Services Speech Therapy, [address] [address] Reginaldo Mendoza, HARBOR BOAT PILOT [address] [place] [address] 05/06/2024 9:20 AM EDT Office Visit Neurology [address] [place] [address] Kathy Pryor PA-C [address] [place] [address] Health Maintenance Due Date Last Done Comments [...] Additional history exists Lipid Panel 09/19/2026 09/19/2021, 12/2012, 04/25/2010 Colonoscopy 08/13/2029 08/13/2019, 08/13/2019 Colorectal Cancer Screening 08/13/2029 GARDASIL-HPV IMMUNIZATION SERIES Aged Out No longer eligible based on patient's age to complete this topic MENINGOCOCCAL (MENACTRA/MENVEO) Aged Out No longer eligible based on patient's age to complete this topic documented as of this encounter Medical Devices Implanted Type Area Binding Cutter Device Identifier Shelf Expiration Date Model / Serial / Lot Power Port 8fr Sngl Lumen Plas - [id number] Implanted:Qty: 1 on 04/24/2021 at [facility] CR BARD : PERIPHERAL VASCULAR [id number] 02/24/2022 [id number] / / [id number] Port Implant W/8f Poly Cath - [id number] Implanted:Qty: 1 on 10/15/2023 at [facility] CR BARD : PERIPHERAL VASCULAR [id number] 03/27/2025 [id number] / / [id number] documented as of this encounter Visit Diagnoses [...] the patient have Health Care Power of Diffusion Furnace Operator? No Full Code 05/23/2021 12:21 PM 05/24/2021 9:38 PM This order reflects the patients wishes and were consensually agreed upon. Question Answer Comments Discussion of Advance Directives occurred with: Patient Care Teams Manager Search Engine Relationship Specialty Start Date End Date Matthew Herrmann PA-C [address] [place] [address] [phone] PCP - General Physician Transfer Coordinator 03/22/21 documented as of this encounter
--- OUTSIDE RECORDS SUMMARY | 2024-04-11 14:47 | External Medical Summary ---
Author Name Unknown Address Unknown Organization [id number]:[facility] - [address] [facility] [facility] [address] Laboratory Report Ordering Provider Test Date Status JOSE STEELE 02/13/2024 09:47:44 Final Observation Date Value Abnormality Reference (Units ) Status WBC, Total 02/13/2024 09:47:44 5.26 4.00-10.80 (K/uL) Final RBC 02/13/2024 09:47:44 4.54 4.50-5.25 (M/uL) Final Hemoglobin 02/13/2024 09:47:44 14.2 14.0-16.8 (g/dL) Final HCT 02/13/2024 09:47:44 41.9 40.0-48.4 (%) Final MCV 02/13/2024 09:47:44 92.3 82.0-99.5 (fL) Final MCH 02/13/2024 09:47:44 31.3 27.0-34.0 (pg) Final MCHC 02/13/2024 09:47:44 33.9 32.0-36.0 (g/dL) Final RDW 02/13/2024 09:47:44 15.0 11.5-15.5 (%) Final Platelets 02/13/2024 09:47:44 263 140-400 (K/uL) Final MPV 02/13/2024 09:47:44 10.2 6.6-11.1 (fL) Final Nucleated erythrocytes/100 leukocytes [Ratio] in Blood by Automated count 02/13/2024 09:47:44 0 <=0 (/100 WBCs) Final Performing Location [facility] - [address] [facility] [address] [facility] [address]
--- OUTSIDE RECORDS SUMMARY | 2024-04-11 14:47 | External Medical Summary | Summary of Care ---
Author Name Unknown Organization [facility] Address [address] [place] [address] Phone [phone] Care Team Providers Care Quarter Doper Name Role Phone Matthew Herrmann PA-C Primary Care Provider [phone] Reason for Visit * Evaluate & Treat - Unlimited Visits (Within 10 days (routine)) - Authorized Specialty Diagnoses / Procedures Referred By Yuli seay Referred To Contact Hematology/Oncology / Hematology Oncology Diagnoses Malignant neoplasm of unspecified part of unspecified bronchus or lung (HCC) Yonathan Tomas CRNP [address] [place] [address] Referral ID Status Reason Start Date Expiration Date Visits Requested Visits Authorized [id number] Authorized Specialty Services Required 11/05/2023 11/04/[phone] Encounter Details Date Type Department Care Team (Latest Contact Info) Description 01/23/2024 9:30 AM EDT Hem/Onc Treatment Hematology Oncology [facility], [place] [address] [place] [address] [place], [facility] 4 Hem/Onc [address] [place] [address] [phone] Chemotherapy adverse reaction, initial encounter*; Chemotherapy induced [...] mRNA, LNP-s, No Pre serve, 2-Dose Series ([employer]) 09/23/2021 Pneumococcal Conjugate Vacci ne, 20-valent ([id number]) 12/12/2023(Deferred: Patient Refused - Renee Duarte MD) [...] AM EDT Anticoagulation Pharmacy Call Center 58[address] [place] [address] [facility] 58 [address] [place] [address] 2024 9:00 AM EDT Rehab Services Speech Therapy, [address] [address] Reginaldo Mendoza, FISHER POT [address] [place] [address] 02/25/2024 9:30 AM EDT Appointment Radiology, [address] [phone] 03/04/2024 9:00 AM EDT Rehab Services Speech Therapy, [address] [address] Reginaldo Mendoza, FISHER POT [address] [place] [address] 03/05/2024 10:00 AM EDT Office Visit Hematology Oncology [facility], [address] [address] Kerri Foote MD [address] [place] [address] 05/06/2024 9:20 AM EDT Office Visit [facility] [address] [facility] [place] [address] Kathy Pryor PA-C [address] [facility] [place] [address] 08/31/2024 8:40 AM EST Office Visit Pulmonary Medicine, [facility] [address] [facility] [place] [address] Wyatt Gallegos MD [address] [facility] [place] [phone] Scheduled Orders Name Type Priority Associated Diagnoses [...] this encounter Medical Devices Implanted Type Area Core Filer Device Identifier Shelf Expiration Date Model / Serial / Lot Power Port 8fr Sngl Lumen Plas - [id number] Implanted:Qty: 1 on 04/24/2021 at [facility] CR BARD : PERIPHERAL VASCULAR [id number] 02/24/2022 [id number] / / [id number] Port Implant W/8f Poly Cath - [id number] Implanted:Qty: 1 on 10/15/2023 at [facility] CR BARD : PERIPHERAL VASCULAR [id number] 03/27/2025 [id number] / / [id number] documented as of this encounter Results * [...] Foote MD LAB BLOOD ORDERAB LES [facility]ATORY [facility] [address] [place] [address] documented in this encounter Visit [...] the patient have Health Care Power of Sand Bobber? No Full Code 05/23/2021 12:21 PM 05/24/2021 9:38 PM This order reflects the patients wishes and were consensually agreed upon. Question Answer Comments Discussion of Advance Directives occurred with: Patient Care Teams Quarter Doper Relationship Specialty Start Date End Date Matthew Herrmann PA-C [address] [place] [address] [place] [address] PCP - General Physician Lamination Spinner 03/22/21 documented as of this encounter
--- OUTSIDE RECORDS SUMMARY | 2024-04-11 14:47 | External Medical Summary | Summary of Care ---
Author Name Unknown Organization [facility] Address [address] [place] [address] Phone [phone] Care Team Providers Care Racing Manager Name Role Phone Matthew Herrmann PA-C Primary Care Provider [phone] Reason for Visit * Reason Comments Treatment * Evaluate & Treat - Unlimited Visits (Within 10 days (routine)) - Authorized Specialty Diagnoses / Procedures Referred By Yuli seay Referred To Contact Hematology/Oncology Diagnoses Malignant neoplasm of unspecified part of unspecified bronchus or lung (HCC) Yonathan Tomas CRNP [address] [place] [address] Referral ID Status Reason Start Date Expiration Date Visits Requested Visits Authorized [id number] Authorized Specialty Services Required 11/21/2023 11/20/[phone] Encounter Details Date Type Department Care Team (Latest Contact Info) Description 02/13/2024 11:30 AM EDT Hem/Onc Treatment Hematology Oncology [facility], [place] [address] [place] [address] [place], [facility] 4 Hem/Onc [facility] [address] [place], [place] [phone] Chemotherapy adverse reaction, initial encounter*; Chemotherapy induced [...] (Pfizer) 09/23/2021 Pneumococcal Conjugate Vacci ne, 20-valent ([id number]) 12/12/2023(Deferred: Patient Refused - Renee Duarte MD) [...] Call Center WB [address] [place] [address] [facility] [address] [facility] [place] [address] 2024 9:00 AM EDT Rehab Services Speech Therapy, [place] [address] [place], [place] [phone] Reginaldo Mendoza, TRANSITION ASSISTANT [address] [place] [address] 02/25/2024 9:30 AM EDT Appointment Radiology, [address] [phone] 03/04/2024 9:00 AM EDT Rehab Services Speech Therapy, [facility] [address] [place] [address] Reginaldo Mendoza, TRANSITION ASSISTANT [address] [place] [address] 03/05/2024 10:00 AM EDT Office Visit Hematology Oncology [facility], [address] [phone] Kerri Foote MD [address] [place] [address] 05/06/2024 9:20 AM EDT Office Visit Neurology [facility] [address] [facility] [place] [address] Kathy Pryor PA-C [address] [facility] [place] [address] 08/31/2024 8:40 AM EST Office Visit Pulmonary Medicine, [facility] [address] [place], [place] [phone] Wyatt Gallegos MD [address] [place], [place] [phone] Scheduled Orders Name Type Priority Associated Diagnoses Orde r Schedule TSH WITH FREE T4 IF INDICATED Lab STAT Chemotherapy adverse reaction, initial encounter Chemotherapy induced nausea and vomiting Encounter for antineoplastic chemotherapy Malignant neoplasm of lower lobe, left bronchus or lung (HCC) 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) Expected: 02/13/2024 (Approximate), Expires: 08/11/2024 GLUCOSE Lab STAT Chemotherapy adverse reaction, initial encounter Chemotherapy induced nausea and vomiting Encounter for antineoplastic chemotherapy Malignant neoplasm of lower lobe, left bronchus or lung (HCC) 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) Expected: 02/13/2024 (Approximate), Expires: 08/11/2024 CBC WITH WBC DIFFERENTIAL Lab STAT Chemotherapy adverse reaction, initial encounter Chemotherapy induced nausea and vomiting Encounter for antineoplastic chemotherapy Malignant neoplasm of lower lobe, left bronchus or lung (HCC) 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) Expected: 02/13/2024 (Approximate), Expires: 08/11/2024 COMPREHENSIVE METABOLIC PANEL Lab STAT Chemotherapy adverse [...] this encounter Medical Devices Implanted Type Area Quality Control Auditor Device Identifier Shelf Expiration Date Model / Serial / Lot Power Port 8fr Sngl Lumen Plas - [id number] Implanted:Qty: 1 on 04/24/2021 at [facility] CR BARD : PERIPHERAL VASCULAR [id number] 02/24/2022 [id number] / / [id number] Port Implant W/8f Poly Cath - [id number] Implanted:Qty: 1 on 10/15/2023 at [facility] CR BARD : PERIPHERAL VASCULAR [id number] 03/27/2025 [id number] / / [id number] documented as of this encounter Visit Diagnoses [...] the patient have Health Care Power of Food Selector? No Full Code 05/23/2021 12:21 PM 05/24/2021 9:38 PM This order reflects the patients wishes and were consensually agreed upon. Question Answer Comments Discussion of Advance Directives occurred with: Patient Care Teams Racing Manager Relationship Specialty Start Date End Date Matthew Herrmann PA-C [address] [place] [address] PCP - General Physician Wood Carver Hand 03/22/21 documented as of this encounter
--- OUTSIDE RECORDS SUMMARY | 2024-04-11 14:47 | External Medical Summary | Summary of Care ---
Author Name Unknown Organization [facility] Address [address] [place] [address] Phone [phone] Care Team Providers Care Damage Inside Adjuster Name Role Phone Matthew Herrmann PA-C Primary Care Provider [phone] [phone] Reason for Visit * Evaluate & Treat - Unlimited Visits (Within 10 days (routine)) - Authorized Specialty Diagnoses / Procedures Referred By Yuli seay Referred To Contact Hematology/Oncology / Hematology Oncology Diagnoses Malignant neoplasm of unspecified part of unspecified bronchus or lung (HCC) Yonathan Tomas CRNP [address] [place] [address] Referral ID Status Reason Start Date Expiration Date Visits Requested Visits Authorized [id number] Authorized Specialty Services Required 11/05/2023 11/04/[phone] Encounter Details Date Type Department Care Team (Latest Contact Info) Description 01/23/2024 9:30 AM EDT Hem/Onc Treatment Hematology Oncology [facility] [place] [address] [place] [address] [place], [facility] 4 Hem/Onc [address] [place] [address] [phone] Chemotherapy adverse reaction, initial encounter*; Chemotherapy induced [...] mRNA, LNP-s, No Pre serve, 2-Dose Series ([employer]) 09/23/2021 Pneumococcal Conjugate Vacci ne, 20-valent ([id number]) 12/12/2023(Deferred: Patient Refused - Renee Duarte MD) [...] AM EDT Anticoagulation Pharmacy Call Center 58[address] [place] [address] [facility] 58 [address] [place] [address] 2024 9:00 AM EDT Rehab Services Speech Therapy, [address] [address] Reginaldo Mendoza, COMPUTER ENGINEERING TECHNOLOGIST [address] [place] [address] 02/25/2024 9:30 AM EDT Appointment Radiology, [address] [phone] 03/04/2024 9:00 AM EDT Rehab Services Speech Therapy, [address] [address] Reginaldo Mendoza, COMPUTER ENGINEERING TECHNOLOGIST [address] [place] [address] 03/05/2024 10:00 AM EDT Office Visit Hematology Oncology [facility] [address] [address] Kerri Foote MD [address] [place] [address] 05/06/2024 9:20 AM EDT Office Visit [facility] [place] [address] Kathy Pryor PA-C 200 [facility] [place] [address] 08/31/2024 8:40 AM EST Office Visit Pulmonary Medicine, [facility] 132 [facility] [place] [address] Wyatt Gallegos MD [address] [facility] [place] [id number] Scheduled Orders Name Type Priority Associated Diagnoses [...] this encounter Medical Devices Implanted Type Area Workforce Development Vice President Device Identifier Shelf Expiration Date Model / Serial / Lot Power Port 8fr Sngl Lumen Plas - [id number] Implanted:Qty: 1 on 04/24/[address] [facility] CR BARD : PERIPHERAL VASCULAR [id number] 02/24/2022 [id number] / / [id number] Port Implant W/8f Poly Cath - [id number] Implanted:Qty: 1 on 10/15/[address] [facility] CR BARD : PERIPHERAL VASCULAR [id number] 03/27/2025 [id number] / / [id number] documented as of this encounter Results * [...] Foote MD LAB BLOOD ORDERAB LES LABORATORY [facility] [address] [place] [address] documented in this encounter Visit [...] the patient have Health Care Power of Bleach Supervisor? No Full Code 05/23/2021 12:21 PM 05/24/2021 9:38 PM This order reflects the patients wishes and were consensually agreed upon. Question Answer Comments Discussion of Advance Directives occurred with: Patient Care Teams Damage Inside Adjuster Relationship Specialty Start Date End Date Matthew Herrmann PA-C [address] [place] [address] [place] [address] PCP - General Physician Manpower Development Specialist Manager 03/22/21 documented as of this encounter
--- OUTSIDE RECORDS SUMMARY | 2024-04-11 14:47 | External Medical Summary | Summary of Care ---
Author Name Unknown Organization [facility] Address [address] [place] [address] Phone [phone] Care Team Providers Care Morning Show Host Name Role Phone Matthew Herrmann PA-C Primary Care Provider +1 [phone] Reason for Visit * Reason Comments Treatment * Evaluate & Treat - Unlimited Visits (Within 10 days (routine)) - Authorized Specialty Diagnoses / Procedures Referred By Yuli seay Referred To Contact Hematology/Oncology Diagnoses Malignant neoplasm of unspecified part of unspecified bronchus or lung (HCC) Yonathan Tomas CRNP [address] [place] [address] Referral ID Status Reason Start Date Expiration Date Visits Requested Visits Authorized [id number] Authorized Specialty Services Required 11/21/2023 11/20/[phone] Encounter Details Date Type Department Care Team (Latest Contact Info) Description 02/13/2024 11:30 AM EDT Hem/Onc Treatment Hematology Oncology [facility], [place] [address] [place] [address] [place], [facility] 4 Hem/Onc [facility] [address] [place], [place] [phone] Chemotherapy adverse reaction, initial encounter*; Chemotherapy induced [...] as of this encounter (statuses as of 02/13/2024) Medications Medication Sig Dispensed Refills Start Date [...] as of this encounter (statuses as of 02/13/2024) Active Problems Problem Noted Date Diagnosed Date [...] as of this encounter (statuses as of 02/13/2024) Resolved Problems Problem Noted Date Diagnosed Date Resolved Date MSSA bacteremia 08/01/2021 08/07/2021 Sepsis 08/01/2021 08/07/2021 COPD, group B, by GOLD 2017 classification 05/08/2021 06/21/2021 Overview: Per COPD GOLD Classification Obstructive lung disease 04/10/2021 Overview: Per COPD GOLD Classification documented as of this encounter (statuses as of 02/13/2024) Immunizations Name Administration Dates Next Due COVID-19 mRNA, LNP-s, No Pre serve, 2-Dose Series (Pfizer) 09/23/2021 Pneumococcal Conjugate Vacci ne, 20-valent ([id number]) 12/12/2023(Deferred: Patient Refused - Renee Duarte MD) [...] ambulatory Pt. In chair 6 * Ila Cbob RN - 02/13/2024 11:25 AM EDT Pre-chemo [...] Call Center WB [address] [place] [address] [facility] 58 60 [facility] [place] [address] 2024 9:00 AM EDT Rehab Services Speech Therapy, [place] [address] [place], [place] [phone] Reginaldo Mendoza, TELECOMMUNICATIONS REPAIRER [address] [place] [address] 02/25/2024 9:30 AM EDT Appointment Radiology, [address] [phone] 03/04/2024 9:00 AM EDT Rehab Services Speech Therapy, [facility] [address] [place] [address] Reginaldo Mendoza, TELECOMMUNICATIONS REPAIRER [address] [place] [address] 03/05/2024 10:00 AM EDT Office Visit Hematology Oncology [facility], [address] [phone] Kerri Foote MD [address] [place] [address] 05/06/2024 9:20 AM EDT Office Visit Neurology [facility] 200 [facility] [place] [address] Kathy Pryor PA-C 200 [facility] [place] [address] 08/31/2024 8:40 AM EST Office Visit Pulmonary Medicine, [facility] [address] [place], [place] [phone] Wyatt Gallegos MD [address] [place], [place] [phone] Scheduled Orders Name Type Priority Associated Diagnoses [...] this encounter Medical Devices Implanted Type Area Beef Selector Device Identifier Shelf Expiration Date Model / Serial / Lot Power Port 8fr Sngl Lumen Plas - [id number] Implanted:Qty: 1 on 04/24/2021 at [facility] CR BARD : PERIPHERAL VASCULAR [id number] 02/24/2022 [id number] / / [id number] Port Implant W/8f Poly Cath - [id number] Implanted:Qty: 1 on 10/15/2023 at [facility] CR BARD : PERIPHERAL VASCULAR [id number] 03/27/2025 [id number] / / [id number] documented as of this encounter Visit Diagnoses [...] ONCE PRN Other, Hypersensitivity Reaction, Starting on Sat02/13/24 at 1129, Until Sat02/14/24 at 1128, For 24 hours EPINEPHrine 1 MG/ML inj 0.3 mg 0.3 mg, Intramuscular, ONCE PRN Other, Hypersensitivity Reaction or Anaphylaxis, Starting on Sat02/13/24 at 1129, Until Sat02/14/24 at 1128, For 24 hours hEParin 100 UNIT/ML Lock Flush inj 500 Units 500 Units (5 mL), IV Lock, PRN Other, IV Flush, Starting on Sat02/13/24 at 1129, Until Sat02/14/24 at 1128, For 24 hours, Do not flush if lock, PICC, or central line not in place; IV infusing or unable to flush. Given 02/13/2024 3:40 PM EDT 500 Units Hydrocortisone Sod Suc (PF) (Solu-Cortef) inj 100 mg 100 mg, IV Push, ONCE PRN Other, Hypersensitivity Reaction, Starting on Sat02/13/24 at 1129, Until Sat02/14/24 at 1128, For 24 hours LORAzepam (Ativan) tab 0.5 mg 0.5 mg, Oral, ONCE PRN Anxiety, Nausea, Starting on Sat02/13/24 at 1230, Until Discontinued NSS infusion Intravenous, at 50 mL/hr, PRN, Starting on Sat02/13/24 at 1230, Until Discontinued, Maintenance line Start Infusion 02/13/2024 11:56 AM EDT 50 mL/hr oxygen GAS Inhalation, OXYGEN, First dose on Sat02/13/24 at 1600, Until Discontinued, Device/Managed by: Low Flow Device, [...] Push, PRN Other, IV Flush, Starting on Sat02/13/24 at 1129, Until Sat02/14/24 at 1128, For 24 hours, Do not flush if lock, PICC, or central line not in place; IV infusing or unable to flush. Given 02/13/2024 3:39 PM EDT 10 mL Inactive Administered Medications - up to 3 most recent administrations Medication Order MAR Action Action Date Dose Rate Site diphenhydrAMINE (Benadryl) cap 50 mg 50 mg, Oral, ONCE, On Sat02/13/24 at 1230, For 1 dose Given 02/13/2024 11:56 AM EDT 50 mg Famotidine (Pepcid) tab 20 mg 20 mg, Oral, ONCE, On Sat02/13/24 at 1230, For 1 dose Given 02/13/2024 11:56 AM EDT 20 mg ondansetron (Zofran) tab 8 mg 8 mg, Oral, ONCE, On Sat02/13/24 at 1200, For 1 dose Given 02/13/2024 [...] 12:32 PM EDT 387 mg 166.67 mL/hr Zoledronic Acid (Zometa) 4 mg in [...] the patient have Health Care Power of Assembler 1St Shift? No Full Code 05/23/2021 12:21 PM 05/24/2021 9:38 PM This order reflects the patients wishes and were consensually agreed upon. Question Answer Comments Discussion of Advance Directives occurred with: Patient Care Teams Morning Show Host Relationship Specialty Start Date End Date Matthew Herrmann PA-C [address] [place] [address] [place] [address] PCP - General Physician Cloth Printing Back Tender 03/22/21 documented as of this encounter
--- OUTSIDE RECORDS SUMMARY | 2024-04-11 14:47 | External Medical Summary | Summary of Care ---
Author Name Unknown Organization [facility] Address [address] [place] [address] Phone [phone] Care Team Providers Care Poultry Helper Name Role Phone Matthew Herrmann PA-C Primary Care Provider +1 -[phone] Reason for Visit * Evaluate & Treat - Unlimited Visits (Within 10 days (routine)) - Authorized Specialty Diagnoses / Procedures Referred By Yuli seay Referred To Contact Hematology/Oncology / Hematology Oncology Diagnoses Malignant neoplasm of unspecified part of unspecified bronchus or lung (HCC) Yonathan Tomas CRNP [address] [place] [address] Referral ID Status Reason Start Date Expiration Date Visits Requested Visits Authorized [id number] Authorized Specialty Services Required 11/05/2023 11/04/[phone] Encounter Details Date Type Department Care Team (Late st Contact Info) Description 02/13/2024 9:45 AM EDT Nurse Only Hematology Oncology [facility] [address] [place], [place] [phone] [place], Nurse Lab Hem/Onc [address] [place], [place] [phone] Arrived Allergies Active Allergy Reactions Criticality Noted [...] (Pfizer) 09/23/2021 Pneumococcal Conjugate Vacci ne, 20-valent ([id number]) 12/12/2023(Deferred: Patient Refused - Renee Duarte MD) [...] Upcoming Encounters Date Type Department Care Team (Latest Contact Info) Description 02/13/2024 10:30 AM EDT Office Visit Hematology Oncology [address] [address] Kerri Foote MD [address] [place] [address] Hematology/Medical Oncology 02/13/2024 11:30 AM EDT Hem/Onc Treatment Hematology Oncology [facility], [place] [address] [place] [address] [place], Chair 4 Hem/Onc [address] [place] [address] Arrived 02/18/2024 6:15 AM EDT Anticoagulation Pharmacy Call Center WB [address]60 [facility] [place] [address] [place], [facility] 58 60 [facility] [place] [address] 2024 9:00 AM EDT Rehab Services Speech Therapy, [address] [address] Reginaldo Mendoza, ALMOND BLANCHER OPERATOR [address] [place] [address] 02/25/2024 9:30 AM EDT Appointment Radiology, [address] [phone] 03/04/2024 9:00 AM EDT Rehab Services Speech Therapy, [address] [address] Reginaldo Mendoza, ALMOND BLANCHER OPERATOR [address] [place] [address] 05/06/2024 9:20 AM EDT [facility] [address] [place] [address] Kathy Pryor PA-C [address] [place] [address] 08/31/2024 8:40 AM EST Office Visit Pulmonary Medicine, [facility] 132 [place] [address] Wyatt Gallegos MD [address] [place] [phone] Pending Results Name Type Priority Associated Diagnoses Date /Time COMPREHENSIVE METABOLIC PANEL Lab STAT Chemotherapy adverse reaction, initial encounter Chemotherapy induced nausea and vomiting Encounter for antineoplastic chemotherapy Malignant neoplasm of lower lobe, left bronchus or lung (HCC) 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) 02/13/2024 9:47 AM EDT Health Maintenance Due Date Last [...] encounter Medical Devices Implanted Type Area Director Information Security Device Identifier Shelf Expiration Date Model / Serial / Lot Power Port 8fr Sngl Lumen Plas - [id number] Implanted:Qty: 1 on 04/24/2021 at [facility] CR BARD : PERIPHERAL VASCULAR [id number] 02/24/2022 [id number] / / [id number] Port Implant W/8f Poly Cath - [id number] Implanted:Qty: 1 on 10/15/2023 at [facility] CR BARD : PERIPHERAL VASCULAR [id number] 03/27/2025 [id number] / / [id number] documented as of this encounter Procedures Procedure Name Priority Date/Time Associated Diagnosis Comments DIFFERENTIAL, AUTOMATED STAT 02/13/2024 9:47 AM EDT Chemotherapy adverse reaction, initial encounter Chemotherapy induced nausea and vomiting Encounter for antineoplastic chemotherapy Malignant neoplasm of lower lobe, left bronchus or lung (HCC) 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) CBC STAT 02/13/2024 9:47 AM EDT Chemotherapy adverse reaction, initial encounter Chemotherapy induced nausea and vomiting Encounter for antineoplastic chemotherapy Malignant neoplasm of lower lobe, left bronchus or lung (HCC) 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 Neutrophils % 57.2 40.0 - 75.0 % 02/13/2024 9:[address] [facility] Lymphocytes % 29.7 18.0 - 42.0 % 02/13/2024 9:[address] [facility] Monocytes % 8.9 1.0 - 11.0 % 02/13/2024 9:[address] [facility] Eosinophils % 2.7 0.0 - 6.0 % 02/13/2024 9:52 AM EDT LABORATORY [facility] Basophils % 1.1 0.0 - 2.0 % 02/13/2024 9:52 AM EDT LABORATORY [facility] Immature Granulocytes % 0.4 0.0 - 2.0 % 02/13/2024 9:52 AM EDT LABORATORY [facility] Absolute Neutrophils 3.01 1.80 - 7.70 K/uL 02/13/2024 9:52 AM EDT LABORATORY [facility] Absolute Lymphocytes 1.56 1.00 - 4.80 K/ul 02/13/2024 9:52 AM EDT LABORATORY [facility] Absolute Monocytes 0.47 0.00 - 1.10 K/uL 02/13/2024 9:52 AM EDT LABORATORY [facility] Absolute Eosinophils 0.14 0.00 - 0.70 K/uL 02/13/2024 9:52 AM EDT LABORATORY [facility] Absolute Basophils 0.06 0.00 - 0.20 K/uL 02/13/2024 9:52 AM EDT LABORATORY [facility] Absolute Immature Granulocytes 0.02 0.00 - 0.20 K/uL 02/13/2024 9:52 AM EDT LABORATORY [facility] Blood Blood sample taken from central line / Unknown Central Line / Unknown 02/13/2024 9:47 AM EDT 02/13/2024 9:50 AM EDT Kerri Foote MD LAB BLOOD ORDERAB LES Performing Organization Address City/State/[facility] Co de Phone Number LABORATORY [facility] [address] [place], [place] [phone] * CBC (02/13/2024 9:47 AM EDT) WBC 5.26 4.00 - 10.80 K/uL 02/13/2024 9:52 AM EDT LABORATORY [facility] RBC 4.54 4.50 - 5.25 M/uL 02/13/2024 9:52 AM EDT LABORATORY [facility] HGB 14.2 14.0 - 16.8 g/dL 02/13/2024 9:52 AM EDT LABORATORY [facility] HCT 41.9 40.0 - 48.4 % 02/13/2024 9:52 AM EDT LABORATORY [facility] MCV 92.3 82.0 - 99.5 fL 02/13/2024 9:52 AM EDT LABORATORY [facility] MCH 31.3 27.0 - 34.0 pg 02/13/2024 9:52 AM EDT LABORATORY [facility] MCHC 33.9 32.0 - 36.0 g/dL 02/13/2024 9:52 AM EDT LABORATORY [facility] RDW 15.0 11.5 - 15.5 % 02/13/2024 9:52 AM EDT LABORATORY [facility] PLT 263 140 - 400 K/uL 02/13/2024 9:52 AM EDT LABORATORY [facility] MPV 10.2 6.6 - 11.1 fL 02/13/2024 9:52 AM EDT LABORATORY [facility] nRBCs 0 <=0 /100 WBCs 02/13/2024 9:52 AM EDT LABORATORY [facility] Blood Blood sample taken from central line / Unknown Central Line / Unknown 02/13/2024 9:47 AM EDT 02/13/2024 9:50 AM EDT Kerri Foote MD LAB BLOOD ORDERAB LES LABORATORY [facility] [address] [place] [address] documented in this encounter Visit Diagnoses Diagnosis Malignant neoplasm of lower lobe, left bronchus or lung (HCC)- Primary Chemotherapy adverse reaction, initial encounter Chemotherapy induced nausea and vomiting Nausea with vomiting Encounter for antineoplastic chemotherapy Non-small cell lung cancer metastatic to bone [...] the patient have Health Care Power of Vending Machine Collector? No Full Code 05/23/2021 12:21 PM 05/24/2021 9:38 PM This order reflects the patients wishes and were consensually agreed upon. Question Answer Comments Discussion of Advance Directives occurred with: Patient Care Teams Poultry Helper Relationship Specialty Start Date End Date Matthew Herrmann PA-C [address] [place] [address] [phone] PCP - General Physician Director Data Analytics 03/22/21 documented as of this encounter
--- OUTSIDE RECORDS SUMMARY | 2024-04-11 14:47 | External Medical Summary | Summary of Care ---
Author Name Unknown Organization [facility] Address [address] [place] [address] Phone [phone] Care Team Providers Care Cctv Technician Name Role Phone Matthew Herrmann PA-C Primary Care Provider +[phone] -[phone] Reason for Visit * Evaluate & Treat - Unlimited Visits (Within 10 days (routine)) - Authorized Specialty Diagnoses / Procedures Referred By Yuli seay Referred To Contact Hematology/Oncology / Hematology Oncology Diagnoses Malignant neoplasm of unspecified part of unspecified bronchus or lung (HCC) Yonathan Tomas CRNP [address] [place] [address] Referral ID Status Reason Start Date Expiration Date Visits Requested Visits Authorized [id number] Authorized Specialty Services Required 11/05/2023 11/04/[phone] Encounter Details Date Type Department Care Team (Latest Contact Info) Description 01/23/2024 9:30 AM EDT Hem/Onc Treatment Hematology Oncology [facility], [place] [address] [place] [address] [place], [facility] 4 Hem/Onc [address] [place] [phone] Chemotherapy adverse reaction, initial encounter*; Chemotherapy induced [...] mRNA, LNP-s, No Pre serve, 2-Dose Series ([employer]) 09/23/2021 Pneumococcal Conjugate Vacci ne, 20-valent ([id number]) 12/12/2023(Deferred: Patient Refused - Renee Duarte MD) [...] AM EDT Anticoagulation Pharmacy Call Center [address] [place] [address] [facility] 58 [address] [place] [address] 2024 9:00 AM EDT Rehab Services Speech Therapy, [address] [address] Reginaldo Mendoza, TOBACCO DRUMMER [address] [place] [address] 02/25/2024 9:30 AM EDT Appointment Radiology, [address] [phone] 03/04/2024 9:00 AM EDT Rehab Services Speech Therapy, [address] [address] Reginaldo Mendoza, TOBACCO DRUMMER [address] [place] [address] 03/05/2024 10:00 AM EDT Office Visit Hematology Oncology [facility], [address] [address] Kerri Foote MD [address] [place] [address] 05/06/2024 9:20 AM EDT Office [facility] 200 [facility] [place] [address] Kathy Pryor PA-C 200 [facility] [place] [address] 08/31/2024 8:40 AM EST Office Visit Pulmonary Medicine, [facility] 132 [facility] [place] [address] Wyatt Gallegos MD [address] [facility] [place] [phone] Scheduled Orders Name Type Priority Associated Diagnoses [...] this encounter Medical Devices Implanted Type Area Sheet Metal Foreman Device Identifier Shelf Expiration Date Model / Serial / Lot Power Port 8fr Sngl Lumen Plas - [id number] Implanted:Qty: 1 on 04/24/2021 at [facility] CR BARD : PERIPHERAL VASCULAR [id number] 02/24/2022 [id number] / / [id number] Port Implant W/8f Poly Cath - [id number] Implanted:Qty: 1 on 10/15/2023 at [facility] CR BARD : PERIPHERAL VASCULAR [id number] 03/27/2025 [id number] / / [id number] documented as of this encounter Results * [...] Foote MD LAB BLOOD ORDERAB LES LABORATORY [facility] [address] [place] [address] documented in this encounter Visit [...] the patient have Health Care Power of Tooth Cutter Pinion? No Full Code 05/23/2021 12:21 PM 05/24/2021 9:38 PM This order reflects the patients wishes and were consensually agreed upon. Question Answer Comments Discussion of Advance Directives occurred with: Patient Care Teams Cctv Technician Relationship Specialty Start Date End Date Matthew Herrmann PA-C [address] [place] [address] [place] [address] PCP - General Physician Facilities Administrator 03/22/21 documented as of this encounter
--- OUTSIDE RECORDS SUMMARY | 2024-04-11 14:47 | External Medical Summary | Summary of Care ---
Author Name Unknown Organization [facility] Address [address] [facility] [address] Phone [phone] Care Team Providers Care Human Resources Receptionist Name Role Phone Matthew Herrmann PA-C Primary Care Provider [phone] Reason for Visit * Reason Comments Pulmonary Function Test PFT with broncho dilator Oxygen Assessment 6 minute walk Encounter Details Date Type Department Care Team (Latest Contact Info) Description 02/12/2024 8:00 AM EDT PulmDiagnostic Pulmonary Function Lab, [facility] [address] [facility] [place] [address] [address], [address] [facility] [place] [id number] Primary malignant neoplasm of left lower lobe of lung (HCC)*; 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); Malignant neoplasm of lower lobe, left bronchus or lung (HCC); Acute deep vein thrombosis (DVT) of proximal vein of right lower extremity (HCC) Allergies Active Allergy Reactions Criticality Noted Date Comments Carboplatin High 11/14/2021 Dyspnea, chest pain, hypoxia, sore throat, edema throat, flushing, mild hypotension Isosorbide Nitrate Other (Please comment) 07/22/2023 Headache documented as of this encounter (statuses as of 02/12/2024) Medications Medication Sig Dispensed Refills Start Date [...] as of this encounter (statuses as of 02/12/2024) Active Problems Problem Noted Date Diagnosed Date [...] as of this encounter (statuses as of 02/12/2024) Resolved Problems Problem Noted Date Diagnosed Date Resolved Date MSSA bacteremia 08/01/2021 08/07/2021 Sepsis 08/01/2021 08/07/2021 COPD, group B, by GOLD 2017 classification 05/08/2021 06/21/2021 Overview: Per COPD GOLD Classification Obstructive lung disease 04/10/2021 Overview: Per COPD GOLD Classification documented as of this encounter (statuses as of 02/12/2024) Immunizations Name Administration Dates Next Due COVID-19 mRNA, LNP-s, No Pre serve, 2-Dose Series (Pathable) 09/23/2021 Pneumococcal Conjugate Vacci ne, 20-valent ([id number]) 12/12/2023(Deferred: Patient Refused - Renee Duarte MD) [...] Sign Reading Time Taken Comments Blood Pressure 112/68 02/12/2024 8:26 AM EDT Pulse 64 02/12/2024 8:26 AM EDT Temperature - - Respiratory Rate 16 02/12/2024 8:26 AM EDT Oxygen Saturation 97% 02/12/2024 8:26 AM EDT Inhaled Oxygen Concentration - - Weight 102.6 kg (226 lb 3.1 oz) 02/12/2024 8:26 AM EDT Height 182 cm (5' 11.65") 02/12/2024 8:26 AM EDT Body Mass Index 30.97 02/12/2024 8:26 AM EDT documented in this encounter Functional [...] as of this encounter Nursing Notes * Jw Gautam RRT - 02/12/2024 8:27 AM EDT John Brothers was identified by name, Date of : (1970), and . Vitals were obtained for testing. Body mass index is 30.97 kg/m. Pt does not have a smoking history. 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 Pt wears 2 liters of oxygen at night. Spirometry, DLCO, MIP/MEP, MVV, RAW, and TGV performed. A slow volume nebulizer treatment of 0.5ml of albuterol in 3 ml of NSS was given. The proper method of use, as well as anticipated side effects, of this svnare discussed and demonstrated to the patient. Patient demonstrates adequate delivery. Administrations This Visit Albuterol Sulfate (Proventil) (5 MG/ML) 0.5% *conc* inhalation solution 2.5 mg Admin Date 02/12/2024 Action Given Dose 2.5 mg Route Nebulizer Documented By Jw Gautam RRT 6 Minute walk Exercise oximetry performed on room air x 6 minutes. Pt ambulated 1800 feet/ 549 meters. No rest periods were required. Lowest SPO2 on room air was 97%. documented in this encounter Plan of Treatment Upcoming Encounters Date Type Department Care Team (Late st Contact Info) Description 02/12/2024 10:20 AM EDT Office Visit Pulmonary Medicine, [facility] [address] [facility] [place] [address] Wyatt Gallegos MD [address] [place] [phone] 02/13/2024 9:45 AM EDT Nurse Only Hematology Oncology [address] [place] [address] [place], Nurse Lab Hem/Onc [facility] [place] [address] 02/13/2024 10:30 AM EDT Office Visit Hematology Oncology [facility] [place] [address] [place] [phone] Kerri Foote MD [facility] [place] [address] 02/13/2024 11:30 AM EDT Hem/Onc Treatment Hematology Oncology [facility] [address] [address] [place], Chair 4 Hem/Onc [address] [place] [phone] 02/18/2024 6:15 AM EDT Anticoagulation Pharmacy Call Center [address] [place] [address] [facility] [address] [place] [address] 2024 9:00 AM EDT Rehab Services Speech Therapy, [address] [address] Reginaldo Mendoza, TIPPLE REPAIRER [address] [place] [phone] 02/25/2024 9:30 AM EDT Appointment Radiology, [address] [phone] 03/04/2024 9:00 AM EDT Rehab Services Speech Therapy, [address] [address] Reginaldo Mendoza, TIPPLE REPAIRER [address] [place] [phone] 05/06/2024 9:20 AM EDT Office Visit Neurology [facility] [address] [facility] [place] [id number] Kathy Pryor PA-C [address] [facility] [place] [phone] Pending Results Name Type Priority Associated Diagnoses Date /Time DIFFUSION CAPACITY (DLCO) Procedures Routine Primary malignant neoplasm of left lower lobe of lung (HCC) 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) Malignant neoplasm of lower lobe, left bronchus or lung (HCC) Acute deep vein thrombosis (DVT) of proximal vein of right lower extremity (HCC) 02/12/2024 8:01 AM EDT LUNG VOLUMES (PLETHYSMOGRAPHY) Procedures Routine Primary malignant neoplasm of left lower lobe of lung (HCC) 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) Malignant neoplasm of lower lobe, left bronchus or lung (HCC) Acute deep vein thrombosis (DVT) of proximal vein of right lower extremity (HCC) 02/12/2024 8:01 AM EDT SPIROMETRY B/A BRONCHODILATOR Procedures Routine Primary malignant neoplasm of left lower lobe of lung (HCC) 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) Malignant neoplasm of lower lobe, left bronchus or lung (HCC) Acute deep vein thrombosis (DVT) of proximal vein of right lower extremity (HCC) 02/12/2024 8:01 AM EDT Health Maintenance Due Date Last [...] this encounter Medical Devices Implanted Type Area Audio Production Engineer Device Identifier Shelf Expiration Date Model / Serial / Lot Power Port 8fr Sngl Lumen Plas - [id number] Implanted:Qty: 1 on 04/24/2021 at [facility] CR [facility]ARD : PERIPHERAL VASCULAR [id number] 02/24/2022 [id number] / / [id number] Port Implant W/8f Poly Cath - [id number] Implanted:Qty: 1 on 10/15/2023 at [facility] CR BARD : PERIPHERAL VASCULAR [id number] 03/27/2025 [id number] / / [id number] documented as of this encounter Procedures Procedure Name Priority Date/Time Associated Diagnosis Comments DIFFUSION CAPACITY (DLCO) Routine 2023 8:01 AM EDT Primary malignant neoplasm of left lower lobe of lung (HCC) 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) Malignant neoplasm of lower lobe, left bronchus or lung (HCC) Acute deep vein thrombosis (DVT) of proximal vein of right lower extremity (HCC) LUNG VOLUMES (PLETHYSMOGRAPHY) Routine 02/12/2024 8:01 AM EDT Primary malignant neoplasm of left lower lobe of lung (HCC) 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) Malignant neoplasm of lower lobe, left bronchus or lung (HCC) Acute deep vein thrombosis (DVT) of proximal vein of right lower extremity (HCC) SPIROMETRY B/A BRONCHODILATOR Routine 02/12/2024 8:01 AM EDT Primary malignant neoplasm of left lower lobe of lung (HCC) 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) Malignant neoplasm of lower lobe, left bronchus or lung (HCC) Acute deep vein thrombosis (DVT) of proximal vein of right lower extremity (HCC) documented in this encounter Visit Diagnoses Diagnosis Primary malignant neoplasm of left lower lobe of lung (HCC)- Primary Malignant neoplasm of lower lobe, bronchus, or lung 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) Malignant neoplasm of lower lobe, left bronchus or lung (HCC) Acute deep vein thrombosis (DVT) of proximal vein of right lower extremity (HCC) documented in this encounter Administered Medications Active Administered Medications - up to 3 most recent administrations Medication Order MAR Action Action Date Dose Rate Site Albuterol Sulfate (Proventil) (5 MG/ML) 0.5% *conc* inhalation solution 2.5 mg 2.5 mg, Nebulizer, PRN Other, for Pulmonary Function Testing, Starting on Ofe 01/02/24 at 0828, Until Sat01/01/25 at 0827, For 365 days, *Dilute with 0.9% saline IF needed Given 02/12/2024 7:54 AM EDT 2.5 mg documented in this encounter Advance Directives Latest [...] the patient have Health Care Power of Dispatch Lead? No Full Code 05/23/2021 12:21 PM 05/24/2021 9:38 PM This order reflects the patients wishes and were consensually agreed upon. Question Answer Comments Discussion of Advance Directives occurred with: Patient Care Teams Human Resources Receptionist Relationship Specialty Start Date End Date Matthew Herrmann PA-C [address] [place] [address] [phone] PCP - General Physician Automotive Fuel Injection Servicer 03/22/21 documented as of this encounter
--- OUTSIDE RECORDS SUMMARY | 2024-04-11 14:47 | External Medical Summary ---
Author Name Unknown Address Unknown Organization [id number]:[facility] [place] [facility] [address] [place] [address] Laboratory Report Ordering Provider Test Date Status JOSE STEELE 02/13/2024 09:47:44 Final Observation Date Value Abnormality Reference (Units ) Status BUN 02/13/2024 09:47:44 11 6-20 (mg/dL) Final Creatinine 02/13/2024 09:47:44 0.9 0.6-1.2 (mg/dL) Final Glomerular filtration rate/1.73 sq M.predicted [Volume Rate/Area] in Serum, Plasma or Blood by Creatinine-based formula (CKD-EPI) 02/13/2024 09:47:44 >90 >=60 (mL/min) Final eGFR is calculated based on the CKD-EPI 2020 equation Sodium 02/13/2024 09:47:44 143 135-146 (m mol/L) Final Potassium 02/13/2024 09:47:44 3.7 3.5-5.1 (m mol/L) Final Cl 02/13/2024 09:47:44 108 Above high normal 98 -107 (mmol/L) Final CO2 02/13/2024 09:47:44 27 22-32 (mmo l/L) Final Anion gap 02/13/2024 09:47:44 8 7-15 (mmol /L) Final Glucose 02/13/2024 09:47:44 126 Above high normal 70 -120 (mg/dL) Final Albumin 02/13/2024 09:47:44 4.0 3.8-5.0 (g /dL) Final AST (Aspartate aminotransferase) 02/13/2024 09:47:44 24 10-50 (U/L) Fin al Alk Phos 02/13/2024 09:47:44 86 35-130 (U/ L) Final Bilirubin, Total 02/13/2024 09:47:44 0.4 <=1 .2 (mg/dL) Final Calcium 02/13/2024 09:47:44 9.2 8.4-10.2 ( mg/dL) Final Protein 02/13/2024 09:47:44 6.8 6.0-8.3 (g /dL) Final ALT (Alanine aminotransferase) 02/13/2024 09:47:44 35 10-50 (U/L) Marvin graham Performing Location [facility] [place] [address] [facility] [id number]
--- OUTSIDE RECORDS SUMMARY | 2024-04-11 14:47 | External Medical Summary | Summary of Care ---
Author Name Unknown Organization [facility] Address [address] [facility] [place] [address] Phone [phone] Care Team Providers Care Security Consultant Name Role Phone Matthew Herrmann PA-C Primary Care Provider [phone] Reason for Visit * Reason Comments Follow Up Encounter Details Date Type Department Care Team (Late st Contact Info) Description 02/12/2024 10:20 AM EDT Office Visit Pulmonary Medicine, [facility] [address] [facility] [place] [address] Wyatt Gallegos MD [address] 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); Dyspnea on exertion Allergies Active Allergy Reactions Criticality Noted Date [...] mRNA, LNP-s, No Pre serve, 2-Dose Series (R[employer]) 09/23/2021 Pneumococcal Conjugate Vacci ne, 20-valent ([id number]) 12/12/2023(Deferred: Patient Refused - Renee Duarte MD) [...] Time Taken Comments Blood Pressure 112/68 02/12/2024 8:55 AM EDT Pulse 64 02/12/2024 8:55 AM EDT Temperature - - Respiratory Rate 16 02/12/2024 8:55 AM EDT Oxygen Saturation 97% 02/12/2024 8:55 AM EDT Inhaled Oxygen Concentration - - Weight 102.6 kg (226 lb 3.1 oz) 02/12/2024 8:55 AM EDT Height 182 cm (5' 11.65") 02/12/2024 8:55 AM EDT Body Mass Index 30.97 02/12/2024 8:55 AM EDT documented in this encounter Functional [...] as of this encounter Progress Notes * Wyatt Gallegos MD - 02/12/2024 9:09 AM EDT 02/12/2024 Pulmonary Medicine, [facility] [address] [place] [address] [id number] John Orlando Brothers 1970 male 53 year old Attending Physician Documentation: 53-year-old male, 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 Since last evaluation, patient describes stable respiratory symptoms status, compliant with Breo and rescue albuterol therapy. Rare use of nebulized albuterol therapy reported. Denies recent hospitalization or emergency room visits. Denies nocturnal respiratory symptoms. Well-preserved exercise tolerance reported. Patient has been compliant with nighttime 2 L nasal cannula oxygen use. Denies high grade fever, hemoptysis, leg edema. Compliant with nocturnal oxygen. Current bronchodilator regimen is Breo plus ProAir rescue inhaler. Physical examination significant for class 3 throat, scattered coarse wheezing, no dullness, regular cardiac rhythm, no evidence of volume overload and nonlateralizing Neuro examination. Data review PFT data 02/12/2024: shows moderate restrictive ventilatory pattern without bronchodilator responseand mild gas transfer defect. 6 minute walk test 02/12/2024: showed stable oxygen saturation on ambulation without evidence of hypoxia. Lowest oxygen saturation reported 97% on ambulation. CT scan chest 2022 showed residual parenchymal infiltrates in left upper lobe, left lower lobe and right apex. No pleural effusions noted. Right-sided port status noted. Evidence of metastatic disease noted in multiple skeletal sites. Disease burden is reported stable per Oncology evaluation. XR CHEST 2 VIEWS-12/04/2023 7:23 pm FINDINGS Right chest Port-A-Cath tip projects over the right atrium. Similar left upper lung peripheral ill-defined density, likely inflammatory/infectious. Similar bibasilar streaky opacities. Lower lung nodules better demonstrated on CT 12/02/2023. No pleural effusion or discernible pneumothorax. The pulmonary vasculature and cardiomediastinal silhouette are within normal limits. No acute osseous abnormality. IMPRESSION IMPRESSION Similar left upper lung ill-defined density, likely inflammatory/infectious. Lower lobe nodules better demonstrated on prior CT. CT PULMONARY EMBOLUS W CONTRAST; CT ABD/PELVIS W IV CONTRAST - WO ORAL CONTRAST DATE and TIME: 12/02/2023 10:44 am HISTORY CLINICAL INFORMATION: Rule out PE vs CHF vs PNA vs increased tumor burden, new exertional dyspnea and orthopnea; Rule out metastatic disease TECHNIQUE Oral Contrast: Oral contrast was not administered. IV Contrast: IV contrast used. A CT pulmonary angiogram was performed during dynamic intravenous contrast administration. Scanningwas performed during peak enhancement of pulmonary arteries. Multi planar reformatted and MIP reformatted images of the chest were created and reviewed. Scanning of the abdomen and pelvis was performed during the portal venous phase of enhancement. COMPARISON: CT scan of the chest, abdomen and pelvis from 09/16/2023. FINDINGS LINES AND DEVICES: There is a port in the right chest wall. The line from the port terminates in the superior cavoatrial junction. LUNGS: Again identified is a nodule in the right lower lobe measuring 1.1 x 2.6 cm. There are multiple scattered patchy airspace and ground-glass opacities in the lungs, some of these are peribronchial in distribution, which appear worse compared to the prior examination. There are scattered ill-defined nodular opacities in the lungs as well. These findings may represent pneumonia. LARGE AIRWAYS: Unremarkable PLEURA: Unremarkable VESSELS: There is no pulmonary embolism. HEART: The right ventricle is not dilated relative to ventricle. MEDIASTINUM AND GENOVEVA: Unremarkable CHEST WALL/SOFT TISSUES: Unremarkable BONES: There are degenerative changes in the spine. There is mild anterolisthesis of L5 on S1 secondary to bilateral L5 pars defects. Similar appearance of a blastic lesion at L1 and L4. Similar appearance of blastic lesion T12 and the pelvis. IMPRESSION 1. No evidence for pulmonary embolism. 2. Interval worsening of scattered infiltrates in the lungs, which may represent pneumonia. 3. No significant interval change of a 2.6 cm nodule in the left lower lobe. 4. Interval improvement of retroperitoneal adenopathy. 5. 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 01/09/2021 CT thorax noting mediastinal bilateral hilar lymphadenopathy. 13 mm ground-glass right upper lobe pulmonary nodule. There is scattered right lung pulmonary nodules measuring up to 4 mm in diameter. There is a 46 mm area of masslike consolidation within the left lower lobe. There is left lower lobe bronchial wall thickening there are scattered ground-glass left lung opacities. There is left lung interlobular septal edema. 04/04/2021 Bronchoscopy and biopsy of left lower lobe, left hilum and 4L diagnosing NSCLC, Adenocarcinoma - [place] 04/06/2021 CTA thorax, no definitive PE. Interval worsening of diffuse septal thickening peribronchial vascular edema and patchy areas of ground-glass attenuation which likely represent pulmonary edema. No definitive compression of pulmonary veins by enlarged mediastinal lymph nodes. Lymphangitic carcinomatosis is less likely due to none nodular appearance of septal thickening. Please correlate above-mentioned findings with prior history of neoplastic process. Minimal pericardial effusion. 04/18/2021 pet/ct IMPRESSION 1. Markedly worsening masslike opacities throughout both lungs with increasing irregular septal thickening and peribronchial thickening. These have mild FDG activity. These could be neoplastic, however, can also be seen with other underlying disorder such as sarcoidosis. Please confirm with histologic sampling, if not performed already. 2. Multiple FDG avid mediastinal and hilar lymph nodes, some of which are calcified. This can also be seen in a granulomatous setting more commonly the neoplasm. 3. Small mildly avid bilateral supraclavicular lymph node with same differential as given above. 4. Mildly avid retrocrural lymph nodes as well as paraesophageal lymph nodes as detailed above. 5. Remaining findings as above. 04/26/2021 Brain MRI IMPRESSION 1. Small (3 mm) round foci of enhancement within the right frontal white matter and inferolateral right temporal lobe, which may represent metastatic disease. 2. Two areas of indeterminate enhancement within the right frontal lobe, which may represent metastatic disease or vascular enhancement. 3. Nonspecific cerebral white matter and pontine foci of T2/FLAIR hyperintensity, most commonly associated with chronic small vessel disease. 4. Mild mucosal thickening of the left maxillary sinus. Assessment Metastatic lung cancer. He progressed on pemetrexed On Paclitaxel and pembrolizumab. Recommend holding pembrolizumab and continuing with paclitaxel Concern with pembrolizumab pneumonitis though most of his symptoms most likely were secondary to anemia Recommend oxygen with exercise. Repeat restaging ct scans in 2 mos 2. History of pulmonary emboli. No evidence of recurrent disease. Continue Lovenox 3. CVA- thrombotic. Continue Lovenox. Stable. 4. Vertigo. Resolved 5. Coughing fits with vomit in am - recommend he takes amlodipine and lasix in am and other pills later in the day 6. Dyspnea. Secondary to lung cancer and hx of pneumonia. Recommend oxygen with exercise 7. Edema. Improved. Continue furosemide We will continue with current Bronchodilator therapy including Breo along with continue ProAir. Importance of maintaining physical activity status and monitoring for opportunistic infections was discussed. Pulmonary clinic follow-up recommended in 6 months. Patient and spouse were advised to contact the office with any change in respiratory symptoms status. 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 | Check-out note: ity status F/u 6 months Wyatt Gallegos MD Subjective CC: Chief Complaint Patient presents with Follow Up HPI: Nursing Notes: Jw Gautam, PIERCING ARTIST 02/12/24 0902 Signed Interm History/Respiratory Symptoms Cough: No Hemoptysis: No Sinus Symptoms: No Hospitalizations: [facility] Pneumonia November 2023 ED Trips: Was admitted 12/21 Triggers: Exertion Nocturnal: Oxygen @ 2 liters HS CPAP/BiPAP/O2: Oxygen @ 2 liters HS COVID 19: 09/23/21 Myc Visit Accident Related Question Question 02/12/2024 8:58 AM EDT - Filed by Patient Is this visit related to an accident? (i.e work, motor vehicle) No MMRC Dyspnea Scale = 0 (I only get breathless with strenuous exercise) Objective Filed Vitals: 02/12/24 0855 BP: 112/68 Pulse: 64 Resp: 16 SpO2: 97% Weight: 102.6 kg (226 lb 3.1 oz) Height: 1.82 m (5' 11.65") Exam: Const: No signs of acute distress present. Head/Face: Normal on inspection. Eyes: Conjunctivae clear. Pupils equal round and reactive to light. ENMT: Oropharynx: No erythema, exudate or masses. Posterior pharynx is normal. Neck: Supple and symmetric. Resp: Respiratory examination as outlined above CV: Rate is regular. Rhythm is regular. No heart murmur appreciated. Extremities: No edema of the lower limbs bilaterally. Skin: Skin is warm and dry. Neuro: Coordination normal. No involuntary movement. Psych: Patient's attitude is cooperative. Mood is normal. Affect is normal. Tests reviewed with the patient: MRI BRAIN W WO CONTRAST Result Date: 12/05/2023 IMPRESSION 1. No intracranial metastatic disease. 2. 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 XR CHEST 2 VIEWS Result Date: 12/04/2023 IMPRESSION Similar left upper lung ill-defined density, likely inflammatory/infectious. Lower lobe nodules better demonstrated on prior CT. XR CHEST 2 VIEWS Result Date: 12/02/2023 IMPRESSION 1. Left upper lobe ill-defined density likely infectious, inflammatory, or metastatic given history of lung cancer, recommend continued follow-up. 2. Left lower lung nodule better seen on prior CT. I have personally reviewed this examination and agree with the resident/fellow physician's interpretation. CT PULMONARY EMBOLUS W CONTRAST Result Date: 12/02/2023 IMPRESSION 1. No evidence for pulmonary embolism. 2. Interval worsening of scattered infiltrates inthe lungs, which may represent pneumonia. 3. No significant interval change of a 2.6 cm nodule in the left lower lobe. 4. Interval improvement of retroperitoneal adenopathy. 5. Similar appearance of b lastic metastases in the bones. CT ABD/PELVIS W IV CONTRAST - WO ORAL CONTRAST Result Date: 12/02/2023 IMPRESSION 1. No evidence for pulmonary embolism. 2. Interval worsening of scattered infiltrates inthe lungs, which may represent pneumonia. 3. No significant interval change of a 2.6 cm nodule in the left lower lobe. 4. Interval improvement of retroperitoneal adenopathy. 5. Similar appearance of b lastic metastases in the bones. IR VENOUS ACCESS MEDIPORT Result Date: 10/15/2023 IMPRESSION: This impression is a preliminary interpretation by the resident and is subject to changes following review by an attending radiologist. Be sure to review a final report to be signed by a staff radiologist for any discrepancies with this preliminary interpretation. Successful placement of a right chest power injectable medical port. I have personally reviewed this examination and agreewith the resident/fellow physician's interpretation. MRI BRAIN W WO CONTRAST Result Date: 09/30/2023 IMPRESSION 1. Late subacute/early chronic ischemic infarction involving the right MCA territory with associated laminar necrosis and mild volume loss. 2. Multiple additional subacute to chronic infarcts scattered in both cerebral hemispheres. 3. No significant mass effect, midline shift, or hydrocephalus. 4. No convincing evidence of intracranial metastatic disease. Continued MRI surveillance is warranted. 5. Negative MRI evaluation of the IAC's. MRI C SPINE W WO CONTRAST Result Date: 09/30/2023 IMPRESSION 1. Sclerotic bony metastasis within the C7 vertebral body without associated pathologic collapse. 2. No evidence of epidural or intradural extension of tumor. 3. Multilevel degenerative changes causing varying degrees of neural foraminal narrowing without significant spinal canal stenosis. CT CHEST/ABDOMEN/PELVIS WITH IV CONTRAST WITH ORAL CONTRAST Result Date: 09/16/2023 IMPRESSION Progression of disease. 1. Likely increasing disease burden in the lower lobes. 2. Enlarging abdominal lymphadenopathy. 3. Progression of osseous metastasis within the spine and pelvis. 4.Nonspecific infectious/inflammatory changes within both lungs. Immune check point inhibitor pneumonitis can be considered in the correct clinical setting. Underlying additional adenocarcinoma metastatic lesions are a possibility. Follow-up to resolution is recommended. I have personally reviewed this examination and agree with the resident/fellow physician's interpretation. Available Radiologic data was reviewed by me in PACS. The images were shown to the patient and findings were discussed with the patient. HOME MEDICATIONS: dexAMETHasone 4 MG Oral Tablet (Decadron) Enoxaparin Sodium 80 MG/0.8ML Injection Solution Prefilled Syringe (Lovenox) Fluticasone Furoate-Vilanterol 100-25 MCG/ACT Inhalation Aerosol Powder Breath Activated (BREO ellipta) Furosemide 20 MG Oral Tablet (Lasix) OLANZapine 5 MG Oral Tablet (zyPREXA) Topiramate 25 MG Oral Tablet (Topamax) Folic Acid 1 MG Oral Tablet Atorvastatin Calcium 40 MG Oral Tablet (Lipitor) amLODIPine Besylate 2.5 MG Oral Tablet (Norvasc) Culturelle Probiotics Oral Tablet Chewable Vitamin E 1000 UNIT Oral Capsule ProAir HFA 108 (90 Base) MCG/ACT Inhalation Aerosol Solution Prochlorperazine Maleate 10 MG Oral Tablet (Compazine) Nitroglycerin 0.4 MG Sublingual Tablet Sublingual (Nitrostat) Ondansetron HCl 8 MG Oral Tablet Albuterol Sulfate (Proventil) (2.5 MG/3ML) 0.083% inhalation solution 2.5 mg Albuterol Sulfate (Proventil) (5 MG/ML) 0.5% *conc* inhalation solution 2.5 mg ROS: No reported history of Hemoptysis, Hematemesis, Melena No reported history of Dysuria, Hematuria, Flank Pain No reported history of chronic headache, seizures No reported history of Fall or trauma . No reported history of recent change in weight or appetite. Past Medical History: Diagnosis Date Pneumonia Past Surgical History: Procedure Laterality Date BRONCHOSCOPY, DIAGNOSTIC N/A 12/11/2023 BRONCHOSCOPY DIAGNOSTIC WITH OR WITHOUT WASHING performed by Rae Ramirez MD at ENDOSCOPY [facility] COLONOSCOPY, DIAGNOSTIC (RECTUM) N/A 08/13/2019 COLONOSCOPY FLEXIBLE PROXIMAL DIAGNOSTIC performed by Pavan Villaseñor MD at ENDOSCOPY [facility] IR VENOUS ACCESS MEDIPORT 04/24/2021 IR VENOUS ACCESS MEDIPORT 08/01/2021 IR VENOUS ACCESS MEDIPORT 10/15/2023 VASECTOMY Social History Socioeconomic History Marital status: Occupational History 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, [employer] Tobacco Use Smoking status: Never Smokeless tobacco: Never Vaping Use Vaping Use: Never used Substance and Sexual Activity Alcohol use: Not Currently Comment: occasionally Drug use: No Social Determinants of Health Food Insecurity: No Food Insecurity (03/15/2020) Hunger Vital Sign Worried About Running Out of Food in the Last Year: Never true Ran Out of Food in the Last Year: Never true Family History Problem Relation Age of Onset Diabetes Father Hypertension Father Heart attack Father Fatal [place] age 74 No Known Problems Mother No Known Problems Sister No Known Problems Brother Lymphoma Niece Review of patient's allergies indicates: Allergen Reactions Carboplatin Dyspnea, chest pain, hypoxia, sore throat, edema throat, flushing, mild hypotension Isosorbide Nitrate Other (Please comment) Headache documented in this encounter Nursing Notes * Jw Gautam RRT - 02/12/2024 8:58 AM EDT Interm History/Respiratory Symptoms Cough: No Hemoptysis: No Sinus Symptoms: No Hospitalizations: [facility] Pneumonia November 2023 ED Trips: Was admitted 12/21 Triggers: Exertion Nocturnal: Oxygen @ 2 liters HS CPAP/BiPAP/O2: Oxygen @ 2 liters HS COVID 19: 09/23/21 Myc Visit Accident Related Question Question 02/12/2024 8:58 AM EDT - Filed by Patient Is this visit related to an accident? (i.e work, motor vehicle) No MMRC Dyspnea Scale = 0 (I only get breathless with strenuous exercise) documented in this encounter Plan of Treatment Upcoming Encounters Date Type Department Care Team (Late st Contact Info) Description 02/13/2024 9:45 AM EDT Nurse Only Hematology Oncology [facility] [place] [address] [place] [address] [place], Nurse Lab Hem/Onc [address] [place] [address] 02/13/2024 10:30 AM EDT Office Visit Hematology Oncology [facility] [address] [place] [address] Kerri Foote MD [address], [place] [id number] 02/13/2024 11:30 AM EDT Hem/Onc Treatment Hematology Oncology [facility] [place] [address] [place] [address] [place], Chair 4 Hem/Onc [address] [place] [address] 02/18/2024 6:15 AM EDT Anticoagulation Pharmacy Call Center [address] [place] [phone] [facility] [address] [facility] [place] [address] 2024 9:00 AM EDT Rehab Services Speech Therapy, [address] [address] Reginaldo Mendoza, SSRS DEVELOPER [address] [place] [address] 02/25/2024 9:30 AM EDT Appointment Radiology, [address] [phone] 03/04/2024 9:00 AM EDT Rehab Services Speech Therapy, [address] [address] Reginaldo Mendoza, SSRS DEVELOPER [address] [place] [address] 05/06/2024 9:20 AM EDT Office Visit Neurology [facility] [address] [place] [address] Kathy Pryor PA-C [address] [place] [address] 08/31/2024 8:40 AM EST Office Visit Pulmonary Medicine, [facility] [address] [facility] [place] [address] Wyatt Gallegos MD [address] [place] [address] Health Maintenance Due Date Last Done Comments [...] this encounter Medical Devices Implanted Type Area Video Journalist Device Identifier Shelf Expiration Date Model / Serial / Lot Power Port 8fr Sngl Lumen Plas - [id number] Implanted:Qty: 1 on 04/24/2021 at [facility] [place] : PERIPHERAL VASCULAR [id number] 02/24/2022 [id number] / / [id number] Port Implant W/8f Poly Cath - [id number] Implanted:Qty: 1 on 10/15/2023 at [facility] [place] : PERIPHERAL VASCULAR [id number] 03/27/2025 [id number] / / [id number] documented as of this encounter Visit Diagnoses Diagnosis Primary malignant neoplasm of left lower lobe of lung (HCC)- Primary Malignant neoplasm of lower lobe, bronchus, or lung 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 No Full Code 05/23/2021 12:21 PM 05/24/2021 9:38 PM This order reflects the patients wishes and were consensually agreed upon. Question Answer Comments Discussion of Advance Directives occurred with: Patient Care Teams Security Consultant Relationship Specialty Start Date End Date Matthew Herrmann PA-C [address] [place] [id number] PCP - General Physician Picture Copyist 03/22/21 documented as of this encounter
--- OUTSIDE RECORDS SUMMARY | 2024-04-11 14:48 | External Medical Summary | Summary of Care ---
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) Matthew Herrmann PA-C [address] [place] [id number] Referral ID Status Reason Start Date Expiration Date Visits Requested Visits Authorized [id number] Authorized Specialty Services Required 06/11/2023 06/11/[phone] Encounter Details Date Type Department Care Team (Latest Contact Info) Description 01/03/2024 10:30 AM EST Hem/Onc Treatment Hematology Oncology [facility], [place] [address] [place] [address] [place], [facility] 4 Hem/Onc [facility] [place] [address] Chemotherapy adverse reaction, initial encounter*; Chemotherapy induced [...] as of this encounter (statuses as of 01/03/2024) Medications Medication Sig Dispensed Refills Start Date [...] for Nausea. 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 Repeat with each treatment. 30 Tablet 3 09/30/2023 Active Enoxaparin Sodium 80 MG/0.8ML Injection Solution Prefilled Syringe (Lovenox) Inject 80 mg under the skin in the morning and 80 mg before bedtime. 8 mL 2 10/11/2023 Active ProAir HFA 108 (90 Base) MCG/ACT [...] as of this encounter (statuses as of 01/03/2024) Active Problems Problem Noted Date Diagnosed Date [...] as of this encounter (statuses as of 01/03/2024) Resolved Problems Problem Noted Date Diagnosed Date Resolved Date MSSA bacteremia 08/01/2021 08/07/2021 Sepsis 08/01/2021 08/07/2021 COPD, group B, by GOLD 2017 classification 05/08/2021 06/21/2021 Overview: Per COPD GOLD Classification Obstructive lung disease 04/10/2021 Overview: Per COPD GOLD Classification documented as of this encounter (statuses as of 01/03/2024) Immunizations Name Administration Dates Next Due COVID-19 mRNA, LNP-s, No Pre serve, 2-Dose Series ([employer] [place]) 09/23/2021 Pneumococcal Conjugate Vacci ne, 20-valent ([id number]) 12/12/2023(Deferred: Patient Refused - Renee Duarte MD) [...] Care Team (Late st Contact Info) Description 01/10/2024 9:45 AM EDT Scheduled Telephone Care Coordination and Integration [address] [facility] [place] [id number] Mere Peterson, Community [facility] Executive Services Administrator [address] [place] [facility] [id number] 01/23/2024 7:45 AM EDT Nurse Only Hematology Oncology [facility], [place] [address] [place] [address] [place], Nurse Lab Hem/Onc [address] [place] [address] 01/23/2024 8:30 AM EDT Office Visit Hematology Oncology [facility], [place] [address] [place] [address] Nicole Carrillo PA-C [address] [place] [address] 01/23/2024 9:30 AM EDT Hem/Onc Treatment Hematology Oncology [facility], [place] [address] [place] [address] [place], Chair 4 Hem/Onc [address] [place] [address] 02/03/2024 12:40 PM EDT Laboratory [facility] [phone] [address] 02/04/2024 6:15 AM EDT Anticoagulation Pharmacy Call Center [address] [facility] [place] [address] [facility] [address] [facility] [place] [address] 02/12/2024 8:00 AM EDT PulmDiagnostic Pulmonary Function Lab, [facility] [address] [place] [address] [place], [address] [place] [address] 02/12/2024 10:20 AM EDT Office Visit Pulmonary Medicine, [facility] [address] [place] [address] Wyatt Gallegos MD [address] [facility] [place] [id number] 02/13/2024 9:45 AM EDT Nurse Only Hematology Oncology [facility], [address] [address] [place], Nurse Lab Hem/Onc [address] [place] [id number] 02/13/2024 10:30 AM EDT Office Visit Hematology Oncology [facility], [address] [phone] Kerri Foote MD [facility] [address], [place] [id number] 02/13/2024 11:30 AM EDT Hem/Onc Treatment Hematology Oncology [facility], [address] [id number] [place], Chair 4 Hem/Onc [address] [place] [id number] 02/25/2024 9:30 AM EDT Appointment Radiology, [address] [phone] 05/06/2024 9:20 AM EDT Office Visit Neurology [facility] [address] [facility] [place] [address] Kathy Pryor PA-C [address] [facility] [place] [address] Health Maintenance Due Date Last Done Comments [...] Screening 05/30/2022 05/30/2021 Influenza Vaccine (FLU shot) (#1) 2023 HbA1c 11/06/2024 11/06/2023, 07/05/2023, 09/19/2021, Additional history exists Lipid Panel 09/19/2026 09/19/2021, 10/0 12/2012, 04/25/2010 Colonoscopy 08/13/2029 08/13/2019, 08/13/2019 Colorectal Cancer Screening 08/13/2029 GARDASIL-HPV IMMUNIZATION SERIES Aged Out No longer eligible based on patient's age to complete this topic MENINGOCOCCAL (MENACTRA/MENVEO) Aged Out No longer eligible based on patient's age to complete this topic documented as of this encounter Medical Devices Implanted Type Area Surgical Coordinator Device Identifier Shelf Expiration Date Model / Serial / Lot Power Port 8fr Sngl Lumen Plas - [id number] Implanted:Qty: 1 on 04/24/2021 at [facility] : PERIPHERAL VASCULAR [id number] 02/24/2022 [id number] / / [id number] Port Implant W/8f Poly Cath - [id number] Implanted:Qty: 1 on 10/15/2023 at [facility] [employer] : PERIPHERAL VASCULAR [id number] 03/27/2025 [id number] / / [id number] documented as of this encounter Visit Diagnoses [...] ONCE PRN Other, Hypersensitivity Reaction, Starting on Sat01/03/24 at 0941, Until 01/04/24 at 0940, For 24 hours EPINEPHrine 1 MG/ML inj 0.3 mg 0.3 mg, Intramuscular, ONCE PRN Other, Hypersensitivity Reaction or Anaphylaxis, Starting on Sat01/03/24 at 0941, Until 01/04/24 at 0940, For 24 hours hEParin 100 UNIT/ML Lock Flush inj 500 Units 500 Units (5 mL), IV Lock, PRN Other, IV Flush, Starting on Sat01/03/24 at 0941, Until 01/04/24 at 0940, For 24 hours, Do not flush if lock, PICC, or central line not in place; IV infusing or unable to flush. Given 01/03/2024 1:45 PM EST 500 Units Hydrocortisone Sod Suc (PF) (Solu-Cortef) inj 100 mg 100 mg, IV Push, ONCE PRN Other, Hypersensitivity Reaction, Starting on Sat01/03/24 at 0941, Until 01/04/24 at 0940, For 24 hours LORAzepam (Ativan) tab 0.5 mg 0.5 mg, Oral, ONCE PRN Anxiety, Nausea, Starting on Sat01/03/24 at 1045, Until Discontinued NSS infusion Intravenous, at 50 mL/hr, PRN, Starting on Sat01/03/24 at 1045, Until Discontinued, Maintenance line Start Infusion 01/03/2024 10:05 AM EST 50 mL/hr oxygen GAS Inhalation, OXYGEN, First dose on Sat01/03/24 at 1015, Until Discontinued, Device/Managed by: Low [...] Flush, Starting on Sat01/03/24 at 0941, Until 01/04/24 at 0940, For 24 hours, Do not flush if lock, PICC, or central line not in place; IV infusing or unable to flush. Given 01/03/2024 1:45 PM EST 10 mL Inactive Administered Medications - up [...] Given 01/03/2024 9:59 AM EST 20 mg ondansetron (Zofran) tab 8 mg [...] 10:31 AM EST 387 mg 166.67 mL/hr Zoledronic Acid (Zometa) [...] the patient have Health Care Power of Family Support Coordinator? No Full Code 05/23/2021 12:21 PM 05/24/2021 9:38 PM This order reflects the patients wishes and were consensually agreed upon. Question Answer Comments Discussion of Advance Directives occurred with: Patient Care Teams Poultry Farmworker Relationship Specialty Start Date End Date Matthew Herrmann PA-C [address] [place] [id number] PCP - General Physician Executive Services Administrator 03/22/21 documented as of this encounter
--- OUTSIDE RECORDS SUMMARY | 2024-04-11 14:48 | External Medical Summary | Summary of Care ---
Author Name Unknown Organization [facility] Address [address] [place] [address] Phone [phone] Care Team Providers Care Fire Equipment Inspector Helper Name Role Phone Matthew Herrmann PA-C Primary Care Provider [phone] Reason for Visit * Reason Comments Follow Up * Evaluate & Treat - Unlimited Visits (Within 10 days (routine)) - Authorized Specialty Diagnoses / Procedures Referred By Yuli seay Referred To Contact Hematology/Oncology / Hematology Oncology Diagnoses Malignant neoplasm of unspecified part of unspecified bronchus or lung (HCC) Yonathan Tomas CRNP [address] [place] [address] Referral ID Status Reason Start Date Expiration Date Visits Requested Visits Authorized [id number] Authorized Specialty Services Required 11/05/2023 11/04/[phone] Encounter Details Date Type Department Care Team (Latest Contact Info) Description 01/23/2024 8:30 AM EDT Office Visit Hematology Oncology [facility] [address] [place] [address] Jessica Jeffers CRNP [address] [facility] [place] [address] Malignant neoplasm of lower lobe, left bronchus or lung (HCC)*; 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 30 Tablet 0 01/23/2024 Active dexAMETHasone 4 MG Oral Tablet (Decadron)Indicatio [...] as of this encounter (statuses as of 01/23/2024) Active Problems Problem Noted Date Diagnosed Date [...] as of this encounter (statuses as of 01/23/2024) Resolved Problems Problem Noted Date Diagnosed Date Resolved Date MSSA bacteremia 08/01/2021 08/07/2021 Sepsis 08/01/2021 08/07/2021 COPD, group B, by GOLD 2017 classification 05/08/2021 06/21/2021 Overview: Per COPD GOLD Classification Obstructive lung disease 04/10/2021 Overview: Per COPD GOLD Classification documented as of this encounter (statuses as of 01/23/2024) Immunizations Name Administration Dates Next Due COVID-19 mRNA, LNP-s, No Pre serve, 2-Dose Series (QuantuMDx Group) 09/23/2021 Pneumococcal Conjugate Vacci ne, 20-valent ([id number]) 12/12/2023(Deferred: Patient Refused - Renee Duarte MD) [...] Sign Reading Time Taken Comments Blood Pressure 120/84 01/23/2024 8:12 AM EDT man ual Pulse 70 01/23/2024 8:12 AM EDT Temperature 36.2 C (97.2 F) 01/23/2024 8:12 AM ED T Respiratory Rate 16 01/23/2024 8:12 AM EDT Oxygen Saturation 96% 01/23/2024 8:12 AM EDT ra Inhaled Oxygen Concentration - - Weight 103 kg (227 lb) 01/23/2024 8:12 AM EDT Height 180.3 cm (5' 10.98") 01/23/2024 8:12 AM E DT Body Mass Index 31.67 01/23/2024 8:12 AM EDT documented in this encounter Functional [...] as of this encounter Progress Notes * Jessica Jeffers CRNP - 01/23/2024 8:07 AM EDT Hematology/Oncology Outpatient Clinic note [facility] PHYSICIAN: Kerri Foote MD CARE TEAM: Matthew Herrmann PA-C CHIEF COMPLAINT: John Orlando Brothers is seen today in follow up. HEMATOLOGY/ONCOLOGY DIAGNOSIS: Metastatic non-small cell lung cancer to bones. Adenocarcinoma. Molecular markers were not performed. STAGE: Cancer Staging Primary malignant neoplasm of left lower lobe of lung (HCC) Staging form: Lung, AJCC 8th Edition - Clinical stage from 04/20/2021: Stage IVB (cT4, cN3, cM1c) - Signed by Melissa Beal MD on 06/08/2021 HEME/ONC HISTORY (copied from previous Hematology/Oncology OV note and updated as needed): 09/2020 diagnosed COVID+, symptoms of cough Did not require imaging, ED visit, hospitalization Cough persisted and has intensified 12/2020 traveled to [place], when returned diagnosed with DVT, imaging with lung infiltrates treated with abx, unclear if infectious/inflammatory perhaps resolving post COVID interstitial changes, and left lower lobe mass noted 02/2021 traveled to [place], returned another DVT, workup with CTA noting increase in bilateral infiltrates and adenopathy, recommending workup with bronch Treatment Summary Primary malignant neoplasm of left lower lobe of lung (HCC) 04/20/2021 Initial Diagnosis Primary malignant neoplasm of left lower lobe of lung (HCC) 04/20/2021 Cancer Staged Staging form: Lung, AJCC 8th Edition, Clinical stage from 04/20/2021: Stage IVB (cT4, cN3, cM1c) - Signed by Melissa Beal MD on 06/08/2021 10/09/2021 - 09/12/2023 Supportive Therapy SCP - VITAMIN B-12 (CYANOCOBALAMIN) [id number] Plan Provider: Kerri Foote MD Treatment goal: Supportive Line of treatment: [No plan line of treatment] 06/21/2023 - Chemotherapy SCP - HYDRATION [id number] 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) 04/21/2021 Initial Diagnosis 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) 04/27/2021 - 05/19/2021 Chemotherapy CARBOPLATIN AUC 5 PEMETREXED 500 mg/m2 bevacizumab-xxxx 15 mg/kg D1 (Every 21 Days) [id number] 05/18/2021 - Supportive Therapy SCP - ZOLEDRONIC ACID (ZOMETA) [id number] Plan Provider: Kerri Foote MD Treatment goal: Supportive Line of treatment: [No plan line of treatment] 06/08/2021 - 09/12/2023 Chemotherapy PEMBROLIZUMAB 200 mg CARBOPLATIN AUC 5 PEMETREXED 500 mg/m2 (C1-4 D1 Every 21 Days) followed by PEMBROLIZUMAB/PEMETREXED (Every 21 Days) [id number] 10/03/2023 - Chemotherapy OP Pembrolizumab and Paclitaxel and Carboplatin every 21 days (Lung) [id number] Malignant neoplasm of lower lobe, left bronchus or lung (HCC) 06/08/2021 - 09/12/2023 Chemotherapy PEMBROLIZUMAB 200 mg CARBOPLATIN AUC 5 PEMETREXED 500 mg/m2 (C1-4 D1 Every 21 Days) followed by PEMBROLIZUMAB/PEMETREXED (Every 21 Days) [id number] 06/13/2023 Initial Diagnosis Malignant neoplasm of lower lobe, left bronchus or lung (HCC) 10/03/2023 - Chemotherapy OP Pembrolizumab and Paclitaxel and Carboplatin every 21 days (Lung) [id number] CURRENT TREATMENT:Paclitaxel and Pembrolizumab every 21 days (10/03/23 - present) - ED visit at [facility] 10/07/23 - pneumonia - ED visit at [facility] 12/04/23 with admission from 12/04-12/12 for pneumonia, hypoxia - 12/23/23 - saw Dr. Foote who put hold on Keytruda at this time, to continue with Paclitaxel only HISTORY OF PRESENT ILLNESS: John Brothers is a patient of Dr. Foote seen today in follow up. He presents to the visit with his . He is feeling well today. Breathing is much improved. Tolerated taxol only very well. Has ongoing mild LE edema. Has not been wearing compression socks. He states he is trying to be more active. Appetite is good. Denies nausea, vomiting, diarrhea, headache, dizziness, rash, itching. Past Medical History: Diagnosis Date Pneumonia Past Surgical History: Procedure Laterality Date BRONCHOSCOPY, DIAGNOSTIC N/A 12/11/2023 BRONCHOSCOPY DIAGNOSTIC WITH OR WITHOUT WASHING performed by Rae Ramirez MD at ENDOSCOPY [facility] COLONOSCOPY, DIAGNOSTIC (RECTUM) N/A 08/13/2019 COLONOSCOPY FLEXIBLE PROXIMAL DIAGNOSTIC performed by Pavan Villaseñor MD at ENDOSCOPY [facility] IR VENOUS ACCESS MEDIPORT 04/24/2021 IR VENOUS ACCESS MEDIPORT 08/01/2021 IR VENOUS ACCESS MEDIPORT 10/15/2023 VASECTOMY Review of patient's allergies indicates: Allergen Reactions Carboplatin Dyspnea, chest pain, hypoxia, sore throat, edema throat, flushing, mild hypotension Isosorbide Nitrate Other (Please comment) Headache Current Outpatient Medications Medication Sig Dispense Refill amLODIPine Besylate 2.5 MG Oral Tablet (Norvasc) Take 1 Tablet by mouth in the morning. 90 Tablet 3 Atorvastatin Calcium 40 MG Oral Tablet (Lipitor) Take 1 Tablet by mouth daily. 90 Tablet 3 Culturelle Probiotics Oral Tablet Chewable Take 1 Tablet by mouth in the morning. dexAMETHasone 4 MG Oral Tablet (Decadron) Take 2 tabs in AM with food x 3 days AFTER chemo and as directed prior to chemo. 30 Tablet 0 Enoxaparin Sodium 80 MG/0.8ML Injection Solution Prefilled Syringe (Lovenox) Inject 80 mg under theskin in the morning and 80 mg before bedtime. 48 mL 0 Fluticasone Furoate-Vilanterol 100-25 MCG/ACT Inhalation Aerosol Powder Breath Activated (BREO ellipta) Inhale 1 Puff by mouth in the morning. 60 Blister Dosing Unit 2 Folic Acid 1 MG Oral Tablet Take 1 Tablet by mouth in the morning. 90 Tablet 3 Furosemide 20 MG Oral Tablet (Lasix) Take 1 Tablet by mouth in the morning. 90 Tablet 3 Nitroglycerin 0.4 MG Sublingual Tablet Sublingual (Nitrostat) Place 1 Tablet under the tongue once as needed. As directed for chest pain OLANZapine 5 MG Oral Tablet (zyPREXA) Take 1 tab at bedtime starting the night of chemo x 4 nights.Repeat with each treatment. 30 Tablet 3 Ondansetron HCl 8 MG Oral Tablet Take 1 Tablet by mouth in the morning and 1 Tablet at noon and 1 Tablet before bedtime. 30 Tablet 3 ProAir HFA 108 (90 Base) MCG/ACT Inhalation Aerosol Solution Inhale 2 Puffs by mouth every 4 hours as needed for Wheezing or Shortness of Breath. 18 g 0 Prochlorperazine Maleate 10 MG Oral Tablet (Compazine) Take 1 Tablet by mouth every 6 hours as needed for Nausea. 30 Tablet 3 Topiramate 25 MG Oral Tablet (Topamax) Take 1 tablet nightly x 2 weeks then increase to 2 tablets nightly. 60 Tablet 5 Vitamin E 1000 UNIT Oral Capsule Take 1 Capsule by mouth in the morning. Current Facility-Administered Medications Medication Dose Route Frequency Provider Last Rate Last Admin Albuterol Sulfate (Proventil) (2.5 MG/3ML) 0.083% inhalation solution 2.5 mg 2.5 mg Nebulizer PRN Wyatt Gallegos MD Albuterol Sulfate (Proventil) (5 MG/ML) 0.5% *conc* inhalation solution 2.5 mg 2.5 mg Nebulizer Wyatt Crow MD Review of Systems Constitutional: Negative for appetite change, chills, fatigue and fever. HENT: Negative for lump/mass, sore throat and trouble swallowing. Eyes: Negative for eye problems. Respiratory: Positive for shortness of breath (exertion). Negative for cough. Cardiovascular: Positive for leg swelling. Negative for chest pain and palpitations. Gastrointestinal: Negative for abdominal distention, abdominal pain, constipation, diarrhea, nauseaand vomiting. Genitourinary: Negative for difficulty urinating and dysuria. Musculoskeletal: Negative for arthralgias, back pain, gait problem and myalgias. Skin: Negative for itching and rash. Neurological: Positive for numbness (feet). Negative for dizziness, extremity weakness, gait problem, headaches, light-headedness and speech difficulty. Hematological: Negative for adenopathy. Does not bruise/bleed easily. Psychiatric/Behavioral: Negative for confusion and sleep disturbance. The patient is not nervous/anxious. ECOG: Performance Status 0 = 100% Normal Activity Pain assessment: Patient had NO pain Filed Vitals: 01/23/24 0812 BP: 120/84 Pulse: 70 Resp: 16 Temp: 36.2 C (97.2 F) TempSrc: Tympanic SpO2: 96% Weight: 103 kg (227 lb) Height: 1.803 m (5' 10.98") Physical Exam Constitutional: General: He is not in acute distress. Appearance: Normal appearance. He is normal weight. HENT: Head: Normocephalic and atraumatic. Nose: Nose normal. Mouth/Throat: Mouth: Mucous membranes are moist. Pharynx: Oropharynx is clear. Cardiovascular: Rate and Rhythm: Normal rate and regular rhythm. Pulses: Normal pulses. Heart sounds: Normal heart sounds. Pulmonary: Effort: Pulmonary effort is normal. Breath sounds: Wheezing (L lobes mild) present. Abdominal: General: Abdomen is flat. Bowel sounds are normal. There is no distension. Palpations: Abdomen is soft. There is no hepatomegaly or splenomegaly. Tenderness: There is no abdominal tenderness. Musculoskeletal: Cervical back: Normal range of motion and neck supple. Right lower leg: Edema (1+) present. Left lower leg: Edema (1+) present. Lymphadenopathy: Cervical: No cervical adenopathy. Upper Body: Right upper body: No supraclavicular or axillary adenopathy. Left upper body: No supraclavicular or axillary adenopathy. Skin: General: Skin is warm and dry. Findings: No bruising or rash. Neurological: Mental Status: He is alert and oriented to person, place, and time. Motor: No weakness. Gait: Gait normal. Psychiatric: Mood and Affect: Mood normal. Behavior: Behavior normal. Thought Content: Thought content normal. Judgment: Judgment normal. RECENT LABS: Latest Reference Range & Units 01/03/24 08:52 01/23/24 08:00 WBC 4.00 - 10.80 K/uL 5.80 5.87 RBC 4.50 - 5.25 M/uL 4.61 4.55 HGB 14.0 - 16.8 g/dL 14.3 14.1 HCT 40.0 - 48.4 % 43.1 42.3 MCV 82.0 - 99.5 fL 93.5 93.0 MCH 27.0 - 34.0 pg 31.0 31.0 MCHC 32.0 - 36.0 g/dL 33.2 33.3 RDW 11.5 - 15.5 % 15.6 15.1 PLT 140 - 400 K/uL 279 265 MPV 6.6 - 11.1 fL 10.2 10.1 CBC WITH WBC DIFFERENTIAL Rpt Rpt Absolute Neutrophils 1.80 - 7.70 K/uL 3.40 3.22 Absolute Lymphocytes 1.00 - 4.80 K/ul 1.48 1.82 Absolute Monocytes 0.00 - 1.10 K/uL 0.54 0.56 Absolute Eosinophils 0.00 - 0.70 K/uL 0.29 0.16 Absolute Basophils 0.00 - 0.20 K/uL 0.08 0.08 Rpt: View report in Results Review for more information Latest Reference Range & Units 01/03/24 08:52 01/23/24 08:00 Sodium 135 - 146 mmol/L 142 142 Potassium 3.5 - 5.1 mmol/L 3.6 3.5 Chloride 98 - 107 mmol/L 106 106 CO2 22 - 32 mmol/L 25 26 BUN 6 - 20 mg/dL 10 12 Creatinine 0.6 - 1.2 mg/dL 0.9 0.8 Estimated Glomerular Filtration Rate >=60 mL/min >90 >90 Anion Gap 7 - 15 mmol/L 11 10 Glucose 70 - 120 mg/dL 121 (H) 105 Calcium 8.4 - 10.2 mg/dL 9.4 9.1 Protein 6.0 - 8.3 g/dL 7.0 6.7 Albumin 3.8 - 5.0 g/dL 4.3 4.1 AST 10 - 50 U/L 43 22 ALT 10 - 50 U/L 51 (H) 43 Alkaline Phosphatase 35 - 130 U/L 88 92 Bilirubin, Total <=1.2 mg/dL 0.7 0.4 (H): Data is abnormally high RECENT IMAGING: MRI BRAIN W WO CONTRAST Result Date: [...] and agree with the resident/fellow physician's interpretation. ASSESSMENT/ PLAN: John Brothers is a 53 year old male with history as above. Metastatic NSCLC with mets to bone: Doing well, labs reviewed Ok to treat with C5 paclitaxel today Pembrolizumab on hold Refill sent for dexamethasone D2-4 Continue zometa every [address] C/A/P scheduled 02/25/24 F/u [address] Dary Thompson PE: Lovenox BID Refill sent Bilateral leg edema: Stable, advised him to wear compression socks during the day and elevate legs when possible 4. Shortness of breath: Much improved, monitor All questions have been answered and the patient knows to call with any concerns in the interim. Patient in agreement with the plan of care. Jessica WALKER Hematology/ Oncology [facility] documented in this encounter Nursing Notes * Brayden Knight MED ASSIST - 01/23/2024 8:12 AM EDT Patient was instructed to not get up on the exam table/exam chair until directed and assisted by their provider; patient is to remain seated in the chair/ wheelchair/ exam table/ exam chair for fall prevention and safety reasons. Patient is aware to have assistance to step down off exam table/exam chair with personnel. Patient voiced full comprehension of instructions. Room 12 documented in this encounter Plan of Treatment Upcoming Encounters Date Type Department Care Team (Late st Contact Info) Description 02/03/2024 12:40 PM EDT Laboratory Laboratory Patient Service [address] [id number] [address] 02/04/2024 6:15 AM EDT Anticoagulation Pharmacy Call Center [address] [place] [address] [facility] [address] [place] [address] 02/05/2024 9:00 AM EDT Rehab Services Speech Therapy, [facility] [address] [place] [address] Reginaldo Mendoza, CHEST PAINTING AND SEALING SUPERVISOR [address] [place] [address] 02/12/2024 8:00 AM EDT PulmDiagnostic Pulmonary Function Lab, [facility] [address] [place] [address] [place], [address] [place] [address] 02/12/2024 10:20 AM EDT Office Visit Pulmonary Medicine, [facility] [address] [place] [address] Wyatt Gallegos MD [address] [place] [address] 02/13/2024 9:45 AM EDT Nurse Only Hematology Oncology [facility], [address] [address] [place], Nurse Lab Hem/Onc [address] [place] [address] 02/13/2024 10:30 AM EDT Office Visit Hematology Oncology [facility], [address] [address] Kerri Foote MD [facility] [address] [place], [place] [id number] 02/13/2024 11:30 AM EDT Hem/Onc Treatment Hematology Oncology [facility], [address] [id number] [place], Chair 4 Hem/Onc [address] [place] [id number] 02/25/2024 9:30 AM EDT Appointment Radiology, [address] [address] 05/06/2024 9:20 AM EDT Office Visit [facility] [address] [place] [address] Kathy Pryor PA-C [address] [place] [id number] Health Maintenance Due Date Last Done Comments [...] (FLU shot) (#1) 2023 HbA1c 11/06/2024 11/06/2023, 04/28, 09/19/2021, Additional history exists Lipid Panel 09/19/2026 09/19/2021, 12/2012, 04/25/2010 Colonoscopy 08/13/2029 08/13/2019, 08/13/2019 Colorectal Cancer Screening 08/13/2029 GARDASIL-HPV IMMUNIZATION SERIES Aged Out No longer eligible based on patient's age to complete this topic MENINGOCOCCAL (MENACTRA/MENVEO) Aged Out No longer eligible based on patient's age to complete this topic documented as of this encounter Medical Devices Implanted Type Area Hydroelectric Plant Mechanical Engineer Device Identifier Shelf Expiration Date Model / Serial / Lot Power Port 8fr Sngl Lumen Plas - [id number] Implanted:Qty: 1 on 04/24/[address] [facility] CR BARD : PERIPHERAL VASCULAR [id number] 02/24/2022 [id number] / / [id number] Port Implant W/8f Poly Cath - [id number] Implanted:Qty: 1 on 10/15/[address] 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 No Full Code 05/23/2021 12:21 PM 05/24/2021 9:38 PM This order reflects the patients wishes and were consensually agreed upon. Question Answer Comments Discussion of Advance Directives occurred with: Patient Care Teams Fire Equipment Inspector Helper Relationship Specialty Start Date End Date Matthew Herrmann PA-C [address] [place] [id number] PCP - General Physician Clinical Nursing Instructor 03/22/21 documented as of this encounter
--- OUTSIDE RECORDS SUMMARY | 2024-04-11 14:48 | External Medical Summary | Summary of Care ---
Author Name Unknown Organization [facility] Address [address] [place] [address] Phone [phone] Care Team Providers Care Manager Zone Name Role Phone Matthew Herrmann PA-C Primary Care Provider [phone] Encounter Details Date Type Department Care Team (Late st Contact Info) Description 01/03/2024 10:30 AM EST Scheduled Telephone Care Coordination and Integration [address] [place] [address] Mere Peterson Formerly [facility], [facility] Health Public Relations Assistant [address] [place] [address] Allergies Active Allergy Reactions Criticality Noted Date Comments Carboplatin High 11/14/2021 Dyspnea, chest pain, hypoxia, sore throat, edema throat, flushing, mild hypotension Isosorbide Nitrate Other (Please comment) 07/22/2023 Headache documented as of this encounter (statuses as of 01/06/2024) Medications Medication Sig Dispensed Refills Start Date [...] as of this encounter (statuses as of 01/06/2024) Active Problems Problem Noted Date Diagnosed Date [...] as of this encounter (statuses as of 01/06/2024) Resolved Problems Problem Noted Date Diagnosed Date Resolved Date MSSA bacteremia 08/01/2021 08/07/2021 Sepsis 08/01/2021 08/07/2021 COPD, group B, by GOLD 2017 classification 05/08/2021 06/21/2021 Overview: Per COPD GOLD Classification Obstructive lung disease 04/10/2021 Overview: Per COPD GOLD Classification documented as of this encounter (statuses as of 01/06/2024) Immunizations Name Administration Dates Next Due COVID-19 mRNA, LNP-s, No Pre serve, 2-Dose Series ([employer]) 09/23/2021 Pneumococcal Conjugate Vacci ne, 20-valent ([id number]) 12/12/2023(Deferred: Patient Refused - Renee Duarte MD) [...] Telephone Care Coordination and Integration [address] [place] [address] Mere Peterson, [facility] Public Relations Assistant [address], [place] 01/23/2024 7:45 AM EDT Nurse Only Hematology Oncology [address] [address] [place], Nurse Lab Hem/Onc [address] [place] [address] 01/23/2024 8:30 AM EDT Office Visit Hematology Oncology [facility], [address] [phone] Nicole Carrillo PA-C [address] [place] [address] 01/23/2024 9:30 AM EDT Hem/Onc Treatment Hematology Oncology [facility], [place] [address] [place] [address] [place], Chair 4 Hem/Onc [address] [place] [address] 02/03/2024 12:40 PM EDT Laboratory [facility], [address] [phone] [place], [address] [address] 02/04/2024 6:15 AM EDT Anticoagulation Pharmacy Call Center [address] [facility] [place] [address] [facility] [address] [facility] [address] 02/12/2024 8:00 AM EDT PulmDiagnostic Pulmonary Function Lab, [facility] [address] [facility] [place] [address] [place], [address] [place] [address] 02/12/2024 10:20 AM EDT Office Visit Pulmonary Medicine, [facility] [address] [facility] [place] [address] Wyatt Gallegos MD [address] [place] [address] 02/13/2024 9:45 AM EDT Nurse Only Hematology Oncology [facility], [place] [address] [place] [address] [place], Nurse Lab Hem/Onc [address] [place] [address] 02/13/2024 10:30 AM EDT Office Visit Hematology Oncology [facility], [place] [address] [place] [phone] Kerri Foote MD [facility] [address] [place], [place] [id number] 02/13/2024 11:30 AM EDT Hem/Onc Treatment Hematology Oncology [facility], [place] [address] [place] [address] [place], Chair 4 Hem/Onc [address] [place] [address] 02/25/2024 9:30 AM EDT Appointment Radiology, [address] [phone] 05/06/2024 9:20 AM EDT Office Visit Neurology [facility] [address] [facility] [place] [address] Kathy Pryor PA-C [address] [facility] [place], [place] [phone] Health Maintenance Due Date Last Done Comments [...] this encounter Medical Devices Implanted Type Area Inspector Barrel Device Identifier Shelf Expiration Date Model / Serial / Lot Power Port 8fr Sngl Lumen Plas - [id number] Implanted:Qty: 1 on 04/24/2021 at [facility] [employer] : PERIPHERAL VASCULAR [id number] 02/24/2022 [id number] / / [id number] Port Implant W/8f Poly Cath - [id number] Implanted:Qty: 1 on 10/15/2023 at [facility] [employer] : PERIPHERAL VASCULAR [id number] 03/27/2025 [id number] / / [id number] documented as of this encounter Advance Directives Latest Code Status [...] the patient have Health Care Power of Conduit Helper? No Full Code 05/23/2021 12:21 PM 05/24/2021 9:38 PM This order reflects the patients wishes and were consensually agreed upon. Question Answer Comments Discussion of Advance Directives occurred with: Patient Care Teams Manager Zone Relationship Specialty Start Date End Date Matthew Herrmann PA-C [address] [place] [address] PCP - General Physician Public Relations Assistant 03/22/21 documented as of this encounter
--- OUTSIDE RECORDS SUMMARY | 2024-04-11 14:48 | External Medical Summary | Summary of Care ---
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) Matthew Herrmann PA-C [address] [place] [address] Referral ID Status Reason Start Date Expiration Date Visits Requested Visits Authorized [id number] Authorized Specialty Services Required 06/11/2023 06/11/[phone] Encounter Details Date Type Department Care Team (Latest Contact Info) Description 01/03/2024 9:30 AM EST Office Visit Hematology Oncology [facility] ([facility] [address] [place] [address] Velia Segundo PA-C [address] [place] [address] Primary malignant neoplasm of left lower lobe of lung (HCC)*; 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); History of pulmonary embolism; Encounter for antineoplastic chemotherapy; Bilateral leg edema; Dyspnea, unspecified type Allergies Active Allergy Reactions Criticality [...] Blister Dosing Unit 2 01/02/2024 4 Active Hospital, Clinic, or Other Facility Administered [...] mRNA, LNP-s, No Pre serve, 2-Dose Series (Xanitos) 09/23/2021 Pneumococcal Conjugate Vacci ne, 20-valent ([id number]) 12/12/2023(Deferred: Patient Refused - Renee Duarte MD) [...] Sign Reading Time Taken Comments Blood Pressure 105/78 01/03/2024 8:56 AM EST man ual Pulse 66 01/03/2024 8:56 AM EST Temperature 36.5 C (97.7 F) 01/03/2024 8:56 AM ES T Respiratory Rate 16 01/03/2024 8:56 AM EST Oxygen Saturation 97% 01/03/2024 8:56 AM EST RA Inhaled Oxygen Concentration - - Weight 101.2 kg (223 lb 1.6 oz) 01/03/2024 8:56 AM EST Height 180.3 cm (5' 11") 01/03/2024 8:56 AM EST Body Mass Index 31.12 01/03/2024 8:56 AM EST documented in this encounter Functional Status Functional [...] as of this encounter Progress Notes * Velia Segundo PA-C - 01/03/2024 9:13 AM EST Hematology/Oncology Outpatient Clinic note [place] [address] Name: John Brothers Date: 01/03/24 CHIEF COMPLAINT: John Brothers is a 53 year old male patient of Dr. Foote here today for a follow up visit. Pleasesee bottom of note for IMPRESSION and PLAN. HISTORY OF PRESENT ILLNESS Oncology history from patient chart, confirmed with patient. Copied/pasted from my previous note and updated as appropriate. HEMATOLOGY/ONCOLOGY DIAGNOSIS: Metastatic non-small cell lung cancer to bones. Adenocarcinoma. Biopsy done at [facility]. Molecular markers were not performed. SITE OF MALIGNANCY: B/L Lungs/hilum, mediastinum, L SCV HISTOPATHOLOGY: NSCLC, Adenocarcinoma, no further molecular analysis currently STAGE: At least IIIC, [id number], high suspicion and concern for Stage IV due to M1a bilateral disease and lymphangitic carcinomatosis DATE OF DIAGNOSIS: 04/20/2021 TREATMENT RENDERED: No regular chest imaging. 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 No history of tobacco abuse. 09/2020 diagnosed COVID+, symptoms of cough Did not require imaging, ED visit, hospitalization Cough persisted and has intensified 12/2020 traveled to [place], when returned diagnosed with DVT, imaging with lung infiltrates treated with abx, unclear if infectious/inflammatory perhaps resolving post COVID interstitial changes, and left lower lobe mass noted 02/2021 traveled to [place], returned another DVT, workup with CTA noting increase in bilateral infiltrates and adenopathy, recommending workup with bronch 01/09/2021 CT thorax noting mediastinal bilateral hilar [...] hilum and 4L diagnosing NSCLC, Adenocarcinoma - Ms Ceferino 04/06/2021 CTA thorax, no definitive PE. Interval [...] of neoplastic process. Minimal pericardial effusion. 04/18/2021 PET SCAN: Head / Neck: Inflammatory uptake present within the palatine tonsils. Small FDG avid bilateral supraclavicular lymph nodes are present, most intense on the left with a maximum SUV of 3.5. Chest: Multiple areas of nodular consolidation and diffuse irregular septal thickening present throughout both lungs have significantly worsened since the prior CT examination. One of the largest nodules in the left upper lobe measures approximately 2.9 cm in diameter with a maximum SUV of 3.27. One of the largest nodules in the right upper lobe measures 3.3 cm with a maximum SUV of 3.58. Multiple FDG avid mediastinal and bilateral hilar lymph nodes are present, some of which are calcified. AP window lymph nodes have a maximum SUV of 5.34. Maximum SUV at the right hilum is 5.65. FDG avid calcified lymph nodes posterior to the esophagus along the inferior thorax have a maximum SUV of 4.22. 4.2 x 2.3 cm nodule in the anterior left lower lobe has a maximum SUV of 6.54. Musculoskeletal / Other: There is activity within the L4 vertebral body corresponding to osteoblastic lesion with a maximum SUV of 6.26. There is mild activity within a small sclerotic lesion in the posterior left ilium. CT SCAN: Head / Neck: Small bilateral supraclavicular lymph nodes as detailed above. Chest: Findings in chest are as detailed above. Small pericardial effusion is present. Abdomen: Minimal vascular calcifications. Small calcified retrocrural lymph nodes. Pelvis: No acute process identified. Musculoskeletal / Other: Osteoblastic lesions as detailed above. Smaller scattered sclerotic densities have no appreciable FDG activity but are below reliable size threshold for PET evaluation. Degenerative changes are present throughout the bony structures. IMPRESSION 1. Markedly worsening masslike opacities throughout [...] mucosal thickening of the left maxillary sinus. Cough since 09/2020 has continued, intensified, at times coughs so much that he vomits. Denies hemoptysis, or hematemesis. Chronic headache a bit more, thinks from cough, at times in morning. +5-10lbweight loss 07/31/21 - presented with fever, blood cultures grew S. Aureus, was admitted for IV abx, mediport removed 08/01/21 08/17/21 PET/CT IMPRESSION Marked interval decrease in size and metabolic activity of multifocal mass-like pulmonary consolidations, with residual disease in the left lower lobe. Additionally, interval decrease in size and metabolic activity of mediastinal, hilar, and retrocrural lymph nodes. No significant radiotracer activity in sites of osteoblastic metastases. Findings are consistent with positive treatment response. CT CAP 11/13/21 IMPRESSION 1. Slight progressive decrease in size of a left lower lobe mass consistent with partial treatment response. No evidence of new or progressive disease in the chest, abdomen or pelvis. 2. Similar appearing pelvic and lumbar spine metastases without evidence of new suspicious osseous lesions. 10/26/21- Cycle 7 Day 1 delayed due to positive COVID test PRIOR TREATMENT: Palliative intent Carboplatin + Pemetrexed + Pembro (06/08/2021- 09/23/23) C7 - carboplatin stopped due to infusion reaction C8 onward - Pemetrexed/Pembro only Supportive: Zoledronic acid (dental clearance brought in on 05/04/2021, okay to start at next treatment day - 05/18) CURRENT TREATMENT: Paclitaxel and Pembrolizumab every 21 days (10/03/23 - present) - ED visit at [facility] 10/07/23 - pneumonia - ED visit at [facility] 12/04/23 with admission from 12/04-12/12 for pneumonia, hypoxia - 12/23/23 - saw Dr. Foote who put hold on Keytruda at this time, to continue with Paclitaxel only INTERVAL HISTORY: John Brothers is a 53 year old male with a history as outlined above. Currently here today for a f/u visit with his . He notes that he is doing well today. His had questions about whether or not Dr. Foote added an injection for the day after his chemo because she has notes from last visit that they had discussed it. Also wanting to know if he is going to get zometa today. Did have a little blurry vision on the car ride down today - this is resolved. His BP is a little lower today. Continuing to lose weight after being off the dexamethasone. Patient denies fevers, night sweats, appetite changes, lymphadenopathy, nausea, vomiting, chest pain, SOB, ALDRIDGE, cough, abdominal pain, dysuria, hematuria, constipation, hematochezia, melena, difficulty with ambulation, edema, rashes, ecchymosis, petechiae, epistaxis, peripheral neuropathy, muscle/joint/bone pain, recent acute illness, or acute trauma. Vitals stable, labs reviewed and documented below. Review of patient's allergies indicates: Allergen Reactions [...] mouth in the morning. 90 Tablet 3 Topiramate 25 MG Oral Tablet (Topamax) Take 1 tablet nightly x 2 weeks then increase to 2 tablets nightly. 60 Tablet 5 Prochlorperazine Maleate 10 MG Oral Tablet (Compazine) Take 1 Tablet by mouth every 6 hours as needed for Nausea. 30 Tablet 3 dexAMETHasone 4 MG Oral Tablet (Decadron) Take 2 tabs in AM with food x 3 days AFTER chemo and as directed prior to chemo. 30 Tablet 3 OLANZapine 5 MG Oral Tablet (zyPREXA) Take 1 tab at bedtime starting the night of chemo x 4 nights.Repeat with each treatment. 30 Tablet 3 Enoxaparin Sodium 80 MG/0.8ML Injection Solution Prefilled Syringe (Lovenox) Inject 80 mg under theskin in the morning and 80 mg before bedtime. 8 mL 2 ProAir HFA 108 (90 Base) MCG/ACT Inhalation Aerosol Solution Inhale 2 Puffs by mouth every 4 hours as needed for Wheezing or Shortness of Breath. 18 g 0 Furosemide 20 MG Oral Tablet (Lasix) Take 1 Tablet by mouth in the morning. 90 Tablet 3 Fluticasone Furoate-Vilanterol 100-25 MCG/ACT Inhalation Aerosol Powder Breath Activated (BREO ellipta) Inhale 1 Puff by mouth in the morning. 60 Blister Dosing Unit 2 Current Facility-Administered Medications Medication Dose Route Frequency Provider Last Rate Last Admin Albuterol Sulfate (Proventil) (5 MG/ML) 0.5% *conc* inhalation solution 2.5 mg 2.5 mg Nebulizer Wyatt Crow MD Albuterol Sulfate (Proventil) (2.5 MG/3ML) 0.083% inhalation solution 2.5 mg 2.5 mg Nebulizer PRN Wyatt Gallegos MD Family History Problem Relation Age of Onset Diabetes Father Hypertension Father Heart attack Father Fatal CT age 74 No Known Problems Mother No Known Problems Sister No Known Problems Brother Lymphoma Niece REVIEW OF SYSTEMS: Please refer to interval history, otherwise ROS within normal limits. ECOG: Performance Status 1 = 80-90% Symptoms but nearly ambulatory OBJECTIVE: Filed Vitals: 01/03/24 0856 BP: 105/78 Pulse: 66 Resp: 16 Temp: 36.5 C (97.7 F) TempSrc: Tympanic SpO2: 97% Weight: 101.2 kg (223 lb 1.6 oz) Height: 1.803 m (5' 11") Wt Readings from Last 5 Encounters: 01/03/24 101.2 kg (223 lb 1.6 oz) 01/02/24 102.1 kg (225 lb) 12/23/23 102.6 kg (226 lb 3.2 oz) 12/19/23 103.6 kg (228 lb 6.4 oz) 12/05/23 110.7 kg (244 lb) Is the pt having any pain related to today's visit?: No (01/03/24 0900) PHYSICAL EXAM: General Appearance: Normal - Healthy appearing patient in no acute distress HEENT: Normal - No oral or pharyngeal masses, ulceration, or thrush noted; no sinus tenderness Lymph Nodes: Normal - No palpable lymph nodes in the neck or supraclavicular areas Lungs/Thorax: Normal - Clear to auscultation, no wheezes, rales, or rhonchi Heart: Normal - Regular rate and rhythm, normal S1, S2, no appreciable murmurs, rubs, gallops Pulses/Extremities/Skin: Pulses 2+ throughout and symmetrical, ecchymosis, or petechiae, b/l pitting edema R>L Abdomen: Normal - Soft, nontender, bowel sounds present, no appreciable hepatosplenomegaly, no palpable masses Musculoskeletal: Normal - No pain on palpation over bony prominences, no joint or bony deformity Neurologic: Normal - Grossly intact LABS: Results for orders placed or performed in visit on 01/03/24 COMPREHENSIVE METABOLIC PANEL Result Value Ref Range BUN 10 6 - 20 mg/dL Creatinine 0.9 0.6 - 1.2 mg/dL Estimated Glomerular Filtration Rate >90 >=60 mL/min Sodium 142 135 - 146 mmol/L Potassium 3.6 3.5 - 5.1 mmol/L Chloride 106 98 - 107 mmol/L CO2 25 22 - 32 mmol/L Anion Gap 11 7 - 15 mmol/L Glucose 121 (H) 70 - 120 mg/dL Albumin 4.3 3.8 - 5.0 g/dL AST 43 10 - 50 U/L Alkaline Phosphatase 88 35 - 130 U/L Bilirubin, Total 0.7 <=1.2 mg/dL Calcium 9.4 8.4 - 10.2 mg/dL Protein 7.0 6.0 - 8.3 g/dL ALT 51 (H) 10 - 50 U/L CBC Result Value Ref Range WBC 5.80 4.00 - 10.80 K/uL RBC 4.61 4.50 - 5.25 M/uL HGB 14.3 14.0 - 16.8 g/dL HCT 43.1 40.0 - 48.4 % MCV 93.5 82.0 - 99.5 fL MCH 31.0 27.0 - 34.0 pg MCHC 33.2 32.0 - 36.0 g/dL RDW 15.6 11.5 - 15.5 % PLT 279 140 - 400 K/uL MPV 10.2 6.6 - 11.1 fL nRBCs 0 <=0 /100 WBCs DIFFERENTIAL, AUTOMATED Result Value Ref Range WBC 5.80 4.00 - 10.80 K/uL Neutrophils % 58.6 40.0 - 75.0 % Lymphocytes % 25.5 18.0 - 42.0 % Monocytes % 9.3 1.0 - 11.0 % Eosinophils % 5.0 0.0 - 6.0 % Basophils % 1.4 0.0 - 2.0 % Immature Granulocytes % 0.2 0.0 - 2.0 % Absolute Neutrophils 3.40 1.80 - 7.70 K/uL Absolute Lymphocytes 1.48 1.00 - 4.80 K/ul Absolute Monocytes 0.54 0.00 - 1.10 K/uL Absolute Eosinophils 0.29 0.00 - 0.70 K/uL Absolute Basophils 0.08 0.00 - 0.20 K/uL Absolute Immature Granulocytes 0.01 0.00 - 0.20 K/uL IMPRESSION: Metastatic NSCLC with brain/bone mets Encounter for antineoplastic chemotherapy Hx PE Bilateral leg edema, improved ALDRIDGE PLAN: - Labs reviewed: - Hgb 14.3, plts 279k - CMP WNL - Okay to proceed with Paclitaxel only today - Pembrolizumab on hold per MD - Can proceed with Zometa today - likely no longer needs B12 injections as off Pemetrexed, last dose 09/12/24, will confirm with Dr. Foote - pt asking about an "immune shot" that she said Dr. Foote had mentioned - discussed that nothing was ordered, so will hold off at this time - saw pulmonology yesterday - planning for PFTs - continue Lasix for edema, improved - CT CAP scheduled 02/25/24 - RTC 01/22 with Nicole as scheduled - RTC 02/[address] Foote as scheduled - Patient was educated on concerning signs and symptoms and was instructed to call the clinic or goto the ED if they begin to experience any. Patient verbally understood and all questions were addressed. I spent a total of 20-29 minutes (exact time 25 mins) on the date of service in preparation, delivery, and documentation of the care provided to John Brothers excluding any time spent in the performance of separately billed services. 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) 01/03/2024 10:30 AM EST Scheduled Telephone Care Coordination and Integration [address] [place] [address] Mere Peterson [facility] Health Voice Data Communications Engineer [address] [place] [address] 01/23/2024 7:45 AM EDT Nurse Only Hematology Oncology [address] [address] [place], Nurse Lab Hem/Onc [address] [place] [address] 01/23/2024 8:30 AM EDT Office Visit Hematology Oncology [facility], [address] [phone] Nicole Carrillo PA-C [address] [place] [address] 01/23/2024 9:30 AM EDT Hem/Onc Treatment Hematology Oncology [facility], [address] [address] [place], [facility] 4 Hem/Onc [address] [place] [address] 02/03/2024 12:40 PM EDT Laboratory Laboratory [facility], [address] [id number] [facility] [address] [place] [address] 02/04/2024 6:15 AM EDT Anticoagulation Pharmacy Call Center [address] [place] [address] [facility], [facility] [address] [place] [address] 02/12/2024 8:00 AM EDT PulmDiagnostic Pulmonary Function Lab, [facility] [address] [facility] [place] [address] [place], [address] [place] [address] 02/12/2024 10:20 AM EDT Office Visit Pulmonary Medicine, [facility] [address] [place] [address] Wyatt Gallegos MD [address] [place] [address] 02/13/2024 9:45 AM EDT Nurse Only Hematology Oncology [facility], [address] [place] [address] [place], Nurse Lab Hem/Onc [address] [place] [address] 02/13/2024 10:30 AM EDT Office Visit Hematology Oncology [facility], [place] [address] [place] [address] Kerri Foote MD [facility] [place] [address] 02/13/2024 11:30 AM EDT Hem/Onc Treatment Hematology Oncology [facility], [address] [address] [place], Chair 4 Hem/Onc [address] [place] [address] 02/25/2024 9:30 AM EDT Appointment Radiology, [address] [phone] 05/06/2024 9:20 AM EDT Office Visit Neurology [facility] [address] [facility] [place] [address] Kathy Pryor PA-C [address] [facility] [place] [address] Health Maintenance Due Date Last Done Comments [...] (FLU shot) (#1) 2023 HbA1c 11/06/2024 11/06/2023, 07/2 05/2023, 09/19/2021, Additional history exists Lipid Panel 09/19/2026 09/19/2021, 10/0 12/2012, 04/25/2010 Colonoscopy 08/13/2029 08/13/2019, 08/13/2019 Colorectal Cancer Screening 08/13/2029 GARDASIL-HPV IMMUNIZATION SERIES Aged Out No longer eligible based on patient's age to complete this topic MENINGOCOCCAL (MENACTRA/MENVEO) Aged Out No longer eligible based on patient's age to complete this topic documented as of this encounter Medical Devices Implanted Type Area Air Pollution Control Engineer Device Identifier Shelf Expiration Date Model / Serial / Lot Power Port 8fr Sngl Lumen Plas - [id number] Implanted:Qty: 1 on 04/24/2021 at [facility] PERIPHERAL VASCULAR [id number] 02/24/2022 [id number] / / [id number] Port Implant W/8f Poly Cath - [id number] Implanted:Qty: 1 on 10/15/2023 at [facility] : PERIPHERAL VASCULAR [id number] 03/27/2025 [id number] / / [id number] documented as of this encounter Visit Diagnoses Diagnosis Primary malignant neoplasm of left lower lobe of lung (HCC)- Primary Malignant neoplasm of lower lobe, bronchus, or lung 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 No Full Code 05/23/2021 12:21 PM 05/24/2021 9:38 PM This order reflects the patients wishes and were consensually agreed upon. Question Answer Comments Discussion of Advance Directives occurred with: Patient Care Teams Lead Caregiver Relationship Specialty Start Date End Date Matthew Herrmann PA-C [address] [place] [phone] PCP - General Physician Voice Data Communications Engineer 03/22/21 documented as of this encounter
--- OUTSIDE RECORDS SUMMARY | 2024-04-11 14:48 | External Medical Summary | Summary of Care ---
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, [place] [address] [place], [place] [phone] [place], Nurse Lab Hem/Onc [address] [place], [place] [phone] Arrived Allergies Active Allergy Reactions Criticality Noted [...] mRNA, LNP-s, No Pre serve, 2-Dose Series ([place]os [place]) 09/23/2021 Pneumococcal Conjugate Vacci ne, 20-valent ([id number]) 12/12/2023(Deferred: Patient Refused - Renee Duarte MD) [...] 9:30 AM EST Office Visit Hematology Oncology [facility] [address] [place] [phone] Velia Segundo PA-C [address] [place] [address] Hematology/Oncolog y Outpatient Clinic note 01/03/2024 10:30 AM EST Hem/Onc Treatment Hematology Oncology [facility] [place] [address] [place] [address] [place], Chair 4 Hem/Onc [facility] [place] [address] Arrived 01/03/2024 10:30 AM EST Scheduled Telephone Care Coordination and Integration [address] [place] [address] Mere Peterson [facility] Animator [address] [place] [address] 01/23/2024 7:45 AM EDT Nurse Only Hematology Oncology [place] [address] [place] [address] [place], Nurse Lab Hem/Onc [facility] [place] [address] 01/23/2024 8:30 AM EDT Office Visit Hematology Oncology [place] [address] [place] [phone] Nicole Carrillo PA-C [address] [place] [address] 01/23/2024 9:30 AM EDT Hem/Onc Treatment Hematology Oncology [facility], [place] [address] [place] [address] [place], Chair 4 Hem/Onc [facility] [place] [address] 02/03/2024 12:40 PM EDT Laboratory Laboratory [facility], [address] [phone] [facility] [address] [phone] 02/04/2024 6:15 AM EDT Anticoagulation Pharmacy Call Center WB 58[address]60 [facility] [place] [address] [facility], [place] 58 60 [facility] [place] [address] 02/12/2024 8:00 AM EDT PulmDiagnostic Pulmonary Function Lab, [facility] 132 [facility] [place] [address] West, Pft 132 [facility] [place] [address] 02/12/2024 10:20 AM EDT Office Visit Pulmonary Medicine, [facility] [address] [facility] [place] [address] Wyatt Gallegos MD [address] [place], [place] [phone] 02/13/2024 9:45 AM EDT Nurse Only Hematology Oncology [place] [address] [place] [address] [place], Nurse Lab Hem/Onc [facility] [place] [address] 02/13/2024 10:30 AM EDT Office Visit Hematology Oncology [place] [address] [place] [phone] Kerri Foote MD [facility] [place] [address] 02/13/2024 11:30 AM EDT Hem/Onc Treatment Hematology Oncology [place] [address] [place], [place] [phone] [place], Chair 4 Hem/Onc [address] [place], [place] [phone] 02/25/2024 9:30 AM EDT Appointment Radiology, [address] [address] 05/06/2024 9:20 AM EDT Office Visit Neurology State Puneet Lala 200 [facility] [place] [address] Kathy Pryor PA-C 200 [facility] [place] [address] Pending Results Name Type Priority Associated Diagnoses Date /Time COMPREHENSIVE METABOLIC PANEL Lab STAT Malignant neoplasm of lower lobe, left bronchus or lung (HCC) 01/03/2024 8:52 AM EST Health Maintenance Due Date Last Done Comments [...] this encounter Medical Devices Implanted Type Area Foot Tender Device Identifier Shelf Expiration Date Model / Serial / Lot Power Port 8fr Sngl Lumen Plas - [id number] Implanted:Qty: 1 on 04/24/2021 at [facility] CR BARD : PERIPHERAL VASCULAR [id number] 02/24/2022 [id number] / / [id number] Port Implant W/8f Poly Cath - [id number] Implanted:Qty: 1 on 10/15/2023 at [facility] CR BARD : PERIPHERAL VASCULAR [id number] 03/27/2025 [id number] / / [id number] documented as of this encounter Procedures Procedure Name Priority Date/Time Associated Diagnosis Comments DIFFERENTIAL, AUTOMATED STAT 01/03/2024 8:52 AM EST Malignant neoplasm of lower lobe, left bronchus or lung (HCC) CBC STAT 01/03/2024 8:52 AM EST Malignant neoplasm of lower lobe, left bronchus or lung (HCC) CBC STAT 01/03/2024 8:52 AM EST Malignant neoplasm of lower lobe, left bronchus or lung (HCC) documented in this encounter Results * DIFFERENTIAL, AUTOMATED (01/03/2024 8:52 AM EST) WBC 5.80 4.00 - 10.80 K/uL 01/03/2024 8:56 AM EST [facility] Neutrophils % 58.6 40.0 - 75.0 % 01/03/2024 8:56 AM EST [facility] Lymphocytes % 25.5 18.0 - 42.0 % 01/03/2024 8:56 AM EST [facility] Monocytes % 9.3 1.0 - 11.0 % 01/03/2024 8:56 AM EST [facility] Eosinophils % 5.0 0.0 - 6.0 % 01/03/2024 8:56 AM EST [facility] Basophils % 1.4 0.0 - 2.0 % 01/03/2024 8:56 AM EST [facility] Immature Granulocytes % 0.2 0.0 - 2.0 % 01/03/2024 8:56 AM EST [facility] Absolute Neutrophils 3.40 1.80 - 7.70 K/uL 01/03/2024 8:56 AM EST [facility] Absolute Lymphocytes 1.48 1.00 - 4.80 K/ul 01/03/2024 8:56 AM EST [facility] Absolute Monocytes 0.54 0.00 - 1.10 K/uL 01/03/2024 8:56 AM EST [facility] Absolute Eosinophils 0.29 0.00 - 0.70 K/uL 01/03/2024 8:56 AM EST [facility] Absolute Basophils 0.08 0.00 - 0.20 K/uL 01/03/2024 8:56 AM EST [facility] Absolute Immature Granulocytes 0.01 0.00 - 0.20 K/uL 01/03/2024 8:56 AM EST [facility] Blood Blood sample taken from central line / Unknown Central Line / Unknown 01/03/2024 8:52 AM EST 01/03/2024 8:54 AM EST Kerri Foote MD LAB BLOOD ORDERAB LES [facility] [address] [place] [address] * CBC (01/03/2024 8:52 AM EST) WBC 5.80 4.00 - 10.80 K/uL 01/03/2024 8:56 AM EST [facility] RBC 4.61 4.50 - 5.25 M/uL 01/03/2024 8:56 AM EST [facility] HGB 14.3 14.0 - 16.8 g/dL 01/03/2024 8:56 AM EST [facility] HCT 43.1 40.0 - 48.4 % 01/03/2024 8:56 AM EST [facility] MCV 93.5 82.0 - 99.5 fL 01/03/2024 8:56 AM EST [facility] MCH 31.0 27.0 - 34.0 pg 01/03/2024 8:56 AM EST [facility] MCHC 33.2 32.0 - 36.0 g/dL 01/03/2024 8:56 AM EST [facility] RDW 15.6 11.5 - 15.5 % 01/03/2024 8:56 AM EST [facility] PLT 279 140 - 400 K/uL 01/03/2024 8:56 AM EST [facility] MPV 10.2 6.6 - 11.1 fL 01/03/2024 8:56 AM EST [facility] nRBCs 0 <=0 /100 WBCs 01/03/2024 8:56 AM EST [facility] Blood Blood sample taken from central line / Unknown Central Line / Unknown 01/03/2024 8:52 AM EST 01/03/2024 8:54 AM EST Kerri Foote MD LAB BLOOD ORDERAB LES [facility] [address] [place] [address] documented in this encounter Visit Diagnoses Diagnosis Malignant neoplasm of lower lobe, left bronchus or lung (HCC)- Primary documented in this encounter Advance [...] the patient have Health Care Power of Welder Tack? No Full Code 05/23/2021 12:21 PM 05/24/2021 9:38 PM This order reflects the patients wishes and were consensually agreed upon. Question Answer Comments Discussion of Advance Directives occurred with: Patient Care Teams Risk Control Analyst Relationship Specialty Start Date End Date Matthew Herrmann PA-C [address] [place] [phone] PCP - General Physician Animator 03/22/21 documented as of this encounter
--- OUTSIDE RECORDS SUMMARY | 2024-04-11 14:48 | External Medical Summary | Summary of Care ---
Author Name Unknown Organization [facility] Address [address] [place] [address] Phone [phone] Care Team Providers Care Agricultural Engineering Technicians Name Role Phone Matthew Herrmann PA-C Primary Care Provider [phone] Reason for Visit * Evaluate & Treat - Unlimited Visits (Within 10 days (routine)) - Authorized Specialty Diagnoses / Procedures Referred By Yuli seay Referred To Contact Hematology/Oncology / Hematology Oncology Diagnoses Malignant neoplasm of unspecified part of unspecified bronchus or lung (HCC) Yonathan Tomas CRNP [address] [place] [address] Referral ID Status Reason Start Date Expiration Date Visits Requested Visits Authorized [id number] Authorized Specialty Services Required 11/05/2023 11/04/[phone] Encounter Details Date Type Department Care Team (Latest Contact Info) Description 01/23/2024 9:30 AM EDT Hem/Onc Treatment Hematology Oncology [facility], [place] [address] [place] [address] [place], [facility] 4 Hem/Onc [address] [place] [address] [phone] Chemotherapy adverse reaction, initial encounter*; Chemotherapy induced [...] mRNA, LNP-s, No Pre serve, 2-Dose Series (Wrapp) 09/23/2021 Pneumococcal Conjugate Vacci ne, 20-valent ([id number]) 12/12/2023(Deferred: Patient Refused - Renee Duarte MD) [...] 12:40 PM EDT Laboratory Laboratory Patient Service [address] [phone] [address] 02/04/2024 6:15 AM EDT Anticoagulation Pharmacy Call Center [address] [place] [address] [facility] 58 [address] [place] [address] 02/05/2024 9:00 AM EDT Rehab Services Speech Therapy, [facility] [address] [place] [address] Reginaldo Mendoza, SEWER PIPE LAYER [address] [place] [address] 02/12/2024 8:00 AM EDT PulmDiagnostic Pulmonary Function Lab, [facility] 132 [facility] [place] [address] West, Pft 132 [facility] [place] [address] 02/12/2024 10:20 AM EDT Office Visit Pulmonary Medicine, [facility] [address] [place] [address] Wyatt Gallegos MD [address] [place] [address] 02/13/2024 9:45 AM EDT Nurse Only Hematology Oncology [facility], [address] [address] [place], Nurse Lab Hem/Onc [address] [place] [address] 02/13/2024 10:30 AM EDT Office Visit Hematology Oncology [facility], [address] [phone] Kerri Foote MD [facility] [address] [place], [place] [phone] 02/13/2024 11:30 AM EDT Hem/Onc Treatment Hematology Oncology [facility], [address] [phone] [place], Chair 4 Hem/Onc [address] [place] [phone] 02/25/2024 9:30 AM EDT Appointment Radiology, [address] [phone] 05/06/2024 9:20 AM EDT Office Visit Neurology [facility] 200 [place] [address] Kathy Pryor PA-C [address] [facility] [place] [phone] Scheduled Orders Name Type Priority Associated Diagnoses [...] bone (HCC) Expected: 01/23/2024 (Approximate), Expires: 07/21/2024 CBC WITH WBC DIFFERENTIAL Lab STAT Chemotherapy adverse reaction, initial encounter Chemotherapy induced nausea and vomiting Encounter for antineoplastic chemotherapy Malignant neoplasm of lower lobe, left bronchus or lung (HCC) 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) Expected: 01/23/2024 (Approximate), Expires: 07/21/2024 COMPREHENSIVE METABOLIC PANEL Lab STAT Chemotherapy adverse [...] this encounter Medical Devices Implanted Type Area Parking Regulation Enforcement Officer Device Identifier Shelf Expiration Date Model / Serial / Lot Power Port 8fr Sngl Lumen Plas - [id number] Implanted:Qty: 1 on 04/24/2021 at [facility] CR BARD : PERIPHERAL VASCULAR [id number] 02/24/2022 [id number] / / [id number] Port Implant W/8f Poly Cath - [id number] Implanted:Qty: 1 on 10/15/2023 at [facility] CR BARD : PERIPHERAL VASCULAR [id number] 03/27/2025 [id number] / / [id number] documented as of this encounter Visit Diagnoses [...] ONCE PRN Other, Hypersensitivity Reaction, Starting on Sat01/23/24 at 0928, Until Sat01/24/24 at 09, For 24 hours EPINEPHrine 1 MG/ML inj 0.3 mg 0.3 mg, Intramuscular, ONCE PRN Other, Hypersensitivity Reaction or Anaphylaxis, Starting on Sat01/23/24 at 0928, Until Sat01/24/24 at 09, For 24 hours hEParin 100 UNIT/ML Lock Flush inj 500 Units 500 Units (5 mL), IV Lock, PRN Other, IV Flush, Starting on Sat01/23/24 at 0928, Until Sat01/24/24 at 09, For 24 hours, Do not flush if lock, PICC, or central line not in place; IV infusing or unable to flush. Given 01/23/2024 2:06 PM EDT 500 Units Hydrocortisone Sod Suc (PF) (Solu-Cortef) inj 100 mg 100 mg, IV Push, ONCE PRN Other, Hypersensitivity Reaction, Starting on Sat01/23/24 at 0928, Until Sat01/24/24 at 0927, For 24 hours LORAzepam (Ativan) tab 0.5 mg 0.5 mg, Oral, ONCE PRN Anxiety, Nausea, Starting on Ofe 01/23/24 at 1030, Until Discontinued NSS infusion Intravenous, at 50 mL/hr, PRN, Starting on Ofe 01/23/24 at 1030, Until Discontinued, Maintenance line Rate Change 01/23/2024 2:06 PM EDT 350 mL/hr Start Infusion 01/23/2024 9:57 AM EDT 50 mL/hr oxygen GAS Inhalation, OXYGEN, First dose on Ofe 01/23/24 at 1000, Until Discontinued, Device/Managed by: Low Flow Device, [...] Flush, Starting on Sat01/23/24 at 0928, Until Sat01/24/24 at 09, For 24 hours, Do not flush if lock, PICC, or central line not in place; IV infusing or unable to flush. Given 01/23/2024 2:06 PM EDT 10 mL Given 01/23/2024 9:54 AM EDT 10 mL Inactive Administered Medications [...] Given 01/23/2024 9:52 AM EDT 20 mg ondansetron (Zofran) tab [...] 10:41 AM EDT 387 mg 166.67 mL/hr documented in this encounter Advance Directives [...] the patient have Health Care Power of Utility Mechanic Supervisor? No Full Code 05/23/2021 12:21 PM 05/24/2021 9:38 PM This order reflects the patients wishes and were consensually agreed upon. Question Answer Comments Discussion of Advance Directives occurred with: Patient Care Teams Agricultural Engineering Technicians Relationship Specialty Start Date End Date Matthew Herrmann PA-C [address] [place] [address] PCP - General Physician Glass Beveller 03/22/21 documented as of this encounter
--- OUTSIDE RECORDS SUMMARY | 2024-04-11 14:48 | External Medical Summary ---
Author Name Unknown Address Unknown Organization K01:[facility] [address] [place] [address] Laboratory Report Ordering Provider Test Date Status JOSE STEELE 01/23/2024 08:00:02 Final Observation Date Value Abnormality Reference (Units ) Status WBC, Total 01/23/2024 08:00:02 5.87 4.00-10.80 (K/uL) Final RBC 01/23/2024 08:00:02 4.55 4.50-5.25 (M/uL) Final Hemoglobin 01/23/2024 08:00:02 14.1 14.0-16.8 (g/dL) Final HCT 01/23/2024 08:00:02 42.3 40.0-48.4 (%) Final MCV 01/23/2024 08:00:02 93.0 82.0-99.5 (fL) Final MCH 01/23/2024 08:00:02 31.0 27.0-34.0 (pg) Final MCHC 01/23/2024 08:00:02 33.3 32.0-36.0 (g/dL) Final RDW 01/23/2024 08:00:02 15.1 11.5-15.5 (%) Final Platelets 01/23/2024 08:00:02 265 140-400 (K/uL) Final MPV 01/23/2024 08:00:02 10.1 6.6-11.1 (fL) Final Nucleated erythrocytes/100 leukocytes [Ratio] in Blood by Automated count 01/23/2024 08:00:02 0 <=0 (/100 WBCs) Final Performing Location [facility] [address] [facility] [address] [place] [address]
--- OUTSIDE RECORDS SUMMARY | 2024-04-11 14:48 | External Medical Summary | Summary of Care ---
Author Name Unknown Organization [facility] Address [address] [place] [address] Phone [phone] Care Team Providers Care Senior Recruitment Consultant Name Role Phone Matthew Herrmann PA-C Primary Care Provider [phone] Encounter Details Date Type Department Care Team (Late st Contact Info) Description 01/22/2024 Orders Only Hematology Oncology [facility] [address] [place] [address] Kerri Foote MD [address] [place] [address] Primary malignant neoplasm of left lower lobe of lung (HCC)*; 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) Allergies Active Allergy Reactions Criticality Noted Date Comments Carboplatin High 11/14/2021 Dyspnea, chest pain, hypoxia, sore throat, edema throat, flushing, mild hypotension Isosorbide Nitrate Other (Please comment) 07/22/2023 Headache documented as of this encounter (statuses as of 01/22/2024) Medications Medication Sig Dispensed Refills Start Date [...] as of this encounter (statuses as of 01/22/2024) Active Problems Problem Noted Date Diagnosed Date [...] as of this encounter (statuses as of 01/22/2024) Resolved Problems Problem Noted Date Diagnosed Date Resolved Date MSSA bacteremia 08/01/2021 08/07/2021 Sepsis 08/01/2021 08/07/2021 COPD, group B, by GOLD 2017 classification 05/08/2021 06/21/2021 Overview: Per COPD GOLD Classification Obstructive lung disease 04/10/2021 Overview: Per COPD GOLD Classification documented as of this encounter (statuses as of 01/22/2024) Immunizations Name Administration Dates Next Due COVID-19 mRNA, LNP-s, No Pre serve, 2-Dose Series (Bountii) 09/23/2021 Pneumococcal Conjugate Vacci ne, 20-valent ([id number]) 12/12/2023(Deferred: Patient Refused - Renee Duarte MD) [...] Care Team (Late st Contact Info) Description 01/23/2024 7:45 AM EDT Nurse Only Hematology Oncology [facility], [address] [address] [place], Nurse Lab Hem/Onc [address] [place] [address] 01/23/2024 8:30 AM EDT Office Visit Hematology Oncology [place] [address] [place] [phone] Jessica Jeffers CRNP [address] [place] [address] 01/23/2024 9:30 AM EDT Hem[facility]Onc Treatment [facility] [place] [address] [place] [address] [place], [facility] 4 Hem/Onc [address] [place] [address] 02/03/2024 12:40 PM EDT Laboratory Laboratory [facility] Service Center[address] [phone] [place], Lab Lock [address] [place] [address] 02/04/2024 6:15 AM EDT Anticoagulation Pharmacy Call Center 58[address]60 [place] [address] [facility], [facility] 58 60 [facility] [place] [address] 02/05/2024 9:00 AM EDT Rehab Services Speech Therapy, [facility] 10[address] [place] [address] Reginaldo Mendoza, CHANNEL BUSINESS MANAGER [address] [place] [address] 02/12/2024 8:00 AM EDT PulmDiagnostic Pulmonary Function Lab, [facility] 132 [facility] [place] [address] West, Pft [address] [place] [address] 02/12/2024 10:20 AM EDT Office Visit Pulmonary Medicine, [facility] [address] [place] [address] Wyatt Gallegos MD [address] [place] [address] 02/13/2024 9:45 AM EDT Nurse Only Hematology Oncology [facility], [address] [address] [place], Nurse Lab Hem/Onc [address] [place] [address] 02/13/2024 10:30 AM EDT Office Visit Hematology Oncology [facility], [address] [phone] Kerri Foote MD [facility] [address] 02/13/2024 11:30 AM EDT Hem/Onc Treatment Hematology Oncology [facility], [address] [address] [place], Chair 4 Hem/Onc [address] [place] [address] 02/25/2024 9:30 AM EDT Appointment Radiology, [address] [phone] 05/06/2024 9:20 AM EDT Office Visit Neurology [facility] [address] [facility] [place] [address] Kathy Pryor PA-C [address] [facility] [place] [address] Scheduled Orders Name Type Priority Associated Diagnoses Orde r Schedule CBC WITH WBC DIFFERENTIAL Lab Routine Primary malignant neoplasm of left lower lobe of lung (HCC) 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) Expected: 01/22/2024, Expires: 01/21/2025 COMPREHENSIVE METABOLIC PANEL Lab Routine Primary malignant neoplasm of left lower lobe of lung (HCC) 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) Expected: 01/22/2024, Expires: 01/21/2025 Health Maintenance Due Date Last Done Comments [...] (FLU shot) (#1) 2023 HbA1c 11/06/2024 11/06/2023, /05/2023, 09/19/2021, Additional history exists Lipid Panel 09/19/2026 09/19/2021, 12/2012, 04/25/2010 Colonoscopy 08/13/2029 08/13/2019, 08/13/2019 Colorectal Cancer Screening 08/13/2029 GARDASIL-HPV IMMUNIZATION SERIES Aged Out No longer eligible based on patient's age to complete this topic MENINGOCOCCAL (MENACTRA/MENVEO) Aged Out No longer eligible based on patient's age to complete this topic documented as of this encounter Medical Devices Implanted Type Area Software Team Leader Device Identifier Shelf Expiration Date Model / Serial / Lot Power Port 8fr Sngl Lumen Plas - [id number] Implanted:Qty: 1 on 04/24/2021 at [facility] CR BARD : PERIPHERAL VASCULAR [id number] 02/24/2022 [id number] / / [id number] Port Implant W/8f Poly Cath - [id number] Implanted:Qty: 1 on 10/15/2023 at [facility] CR BARD : PERIPHERAL VASCULAR [id number] 03/27/2025 [id number] / / [id number] documented as of this encounter Visit Diagnoses [...] the patient have Health Care Power of Technician Test Systems? No Full Code 05/23/2021 12:21 PM 05/24/2021 9:38 PM This order reflects the patients wishes and were consensually agreed upon. Question Answer Comments Discussion of Advance Directives occurred with: Patient Care Teams Senior Recruitment Consultant Relationship Specialty Start Date End Date Matthew Herrmann PA-C [address] [place], [place] [address] [place] [address] PCP - General Physician Checkout Operator 03/22/21 documented as of this encounter
--- OUTSIDE RECORDS SUMMARY | 2024-04-11 14:48 | External Medical Summary | Summary of Care ---
Author Name Unknown Organization [facility] Address [address] [place] [address] Phone [phone] Care Team Providers Care Sole Ruffer Name Role Phone Matthew Herrmann PA-C Primary Care Provider [phone] Encounter Details Date Type Department Care Team (Late st Contact Info) Description 01/10/2024 9:45 AM EDT Scheduled Telephone Care Coordination and Integration [address] [place] [address] [facility] Substation Wireman [address] [place] [address] Allergies Active Allergy Reactions Criticality Noted Date Comments Carboplatin High 11/14/2021 Dyspnea, chest pain, hypoxia, sore throat, edema throat, flushing, mild hypotension Isosorbide Nitrate Other (Please comment) 07/22/2023 Headache documented as of this encounter (statuses as of 01/10/2024) Medications Medication Sig Dispensed Refills Start Date [...] as of this encounter (statuses as of 01/10/2024) Active Problems Problem Noted Date Diagnosed Date [...] as of this encounter (statuses as of 01/10/2024) Resolved Problems Problem Noted Date Diagnosed Date Resolved Date MSSA bacteremia 08/01/2021 08/07/2021 Sepsis 08/01/2021 08/07/2021 COPD, group B, by GOLD 2017 classification 05/08/2021 06/21/2021 Overview: Per COPD GOLD Classification Obstructive lung disease 04/10/2021 Overview: Per COPD GOLD Classification documented as of this encounter (statuses as of 01/10/2024) Immunizations Name Administration Dates Next Due COVID-19 mRNA, LNP-s, No Pre serve, 2-Dose Series (Odysii) 09/23/2021 Pneumococcal Conjugate Vacci ne, 20-valent ([id number]) 12/12/2023(Deferred: Patient Refused - Renee Duarte MD) [...] as of this encounter Progress Notes * Mere [facility] Wireman - 01/10/2024 10:25 AM EDT Telemedicine visit: No Community [facility] Substation Wireman ([facility]) documentation: [facility] weekly f/u call per RANJIT Lu Denies any new issues or problems. Breathing has improved and he reported that he has gone a couple nights without oxygen. He states he is getting out and building up his strength. Confirmed he has CM contact information documented in this encounter Plan of Treatment Upcoming Encounters Date Type Department Care Team (Late st Contact Info) Description 01/23/2024 7:45 AM EDT Nurse Only Hematology Oncology [facility], [place] [address] [place] [address] [place], Nurse Lab Hem/Onc [address] [place] [address] 01/23/2024 8:30 AM EDT Office Visit Hematology Oncology [facility], [place] [address] [place] [address] Nicole Carrillo PA-C [address] [place] [address] 01/23/2024 9:30 AM EDT Hem/Onc Treatment Hematology Oncology [facility], [place] [address] [place] [address] [place], 4 Hem/[place]c [facility] [place] [address] 02/03/2024 12:40 PM EDT Laboratory [facility], [address] [phone] [address] [address] 02/04/2024 6:15 AM EDT Anticoagulation Pharmacy Call Center [address] [place] [address] [facility], [facility] 58 [address] [place] [address] 02/12/2024 8:00 AM EDT PulmDiagnostic Pulmonary Function Lab, [facility] [address] [facility] [place] [address] [place], [address] [place] [address] 02/12/2024 10:20 AM EDT Office Visit Pulmonary Medicine, [facility] [address] [facility] [place] [address] Wyatt Gallegos MD [address] [facility] [place] [address] 02/13/2024 9:45 AM EDT Nurse Only Hematology Oncology [facility], [address] [address] [place], Nurse Lab Hem/Onc [address] [place] [address] 02/13/2024 10:30 AM EDT Office Visit Hematology Oncology [facility], [address] [phone] Kerri Foote MD [address] [place] [id number] 02/13/2024 11:30 AM EDT Hem/Onc Treatment Hematology Oncology [facility], [address] [address] [place], Chair 4 Hem/Onc [address] [place] [address] 02/25/2024 9:30 AM EDT Appointment Radiology, [address] [address] 05/06/2024 9:20 AM EDT Office Visit Neurology [facility] [address] [facility] [place] [address] Kathy Pryor PA-C [address] [facility] [place], [place] [phone] Health Maintenance Due Date Last Done Comments [...] this encounter Medical Devices Implanted Type Area Pillow Cleaner Device Identifier Shelf Expiration Date Model / Serial / Lot Power Port 8fr Sngl Lumen Plas - [id number] Implanted:Qty: 1 on 04/24/2021 at [facility] CR BARD : PERIPHERAL VASCULAR [id number] 02/24/2022 [id number] / / [id number] Port Implant W/8f Poly Cath - [id number] Implanted:Qty: 1 on 10/15/2023 at [facility] CR BARD : PERIPHERAL VASCULAR [id number] 03/27/2025 [id number] / / [id number] documented as of this encounter Advance Directives [...] the patient have Health Care Power of Computer Network Engineer? No Full Code 05/23/2021 12:21 PM 05/24/2021 9:38 PM This order reflects the patients wishes and were consensually agreed upon. Question Answer Comments Discussion of Advance Directives occurred with: Patient Care Teams Sole Ruffer Relationship Specialty Start Date End Date Matthew Herrmann PA-C [address] [place] [address] PCP - General Physician Substation Wireman 03/22/21 documented as of this encounter
--- OUTSIDE RECORDS SUMMARY | 2024-04-11 14:48 | External Medical Summary ---
Author Name Unknown Address Unknown Organization K01:LABORATORY [facility] - [address] [facility] [place] [place] [address] Laboratory Report Ordering Provider Test Date Status JOSE STEELE 01/23/2024 08:00:02 Final Observation Date Value Abnormality Reference (Units ) Status BUN 01/23/2024 08:00:02 12 6-20 (mg/dL) Final Creatinine 01/23/2024 08:00:02 0.8 0.6-1.2 (mg/dL) Final Glomerular filtration rate/1.73 sq M.predicted [Volume Rate/Area] in Serum, Plasma or Blood by Creatinine-based formula (CKD-EPI) 01/23/2024 08:00:02 >90 >=60 (mL/min) Final eGFR is calculated based on the CKD-EPI 2020 equation Sodium 01/23/2024 08:00:02 142 135-146 (m mol/L) Final Potassium 01/23/2024 08:00:02 3.5 3.5-5.1 (m mol/L) Final Cl 01/23/2024 08:00:02 106 98-107 (mm ol/L) Final CO2 01/23/2024 08:00:02 26 22-32 (mmo l/L) Final Anion gap 01/23/2024 08:00:02 10 7-15 (mmol /L) Final Glucose 01/23/2024 08:00:02 105 70-120 (mg /dL) Final Albumin 01/23/2024 08:00:02 4.1 3.8-5.0 (g /dL) Final AST (Aspartate aminotransferase) 01/23/2024 08:00:02 22 10-50 (U/L) Final Alk Phos 01/23/2024 08:00:02 92 35-130 (U/ L) Final Bilirubin, Total 01/23/2024 08:00:02 0.4 <=1 .2 (mg/dL) Final Calcium 01/23/2024 08:00:02 9.1 8.4-10.2 ( mg/dL) Final Protein 01/23/2024 08:00:02 6.7 6.0-8.3 (g /dL) Final ALT (Alanine aminotransferase) 01/23/2024 08:00:02 43 10-50 (U/L) Final Performing Location [facility]ORY [facility] - [address] [facility] [address]
--- OUTSIDE RECORDS SUMMARY | 2024-04-11 14:48 | External Medical Summary | Summary of Care ---
Author Name Unknown Organization [facility] Address [address] [place] [address] Phone [phone] Care Team Providers Care Pastoral Worker Name Role Phone Matthew Herrmann PA-C Primary Care Provider [phone] Reason for Visit * Reason Comments Speech * Evaluate & Treat - Unlimited Visits (Within 10 days (routine)) - Authorized Specialty Diagnoses / Procedures Referred By Yuli seay Referred To Contact Speech Pathology / Speech Pathology Diagnoses Cerebral infarction, unspecified (HCC) Yonathan Tomas CRNP [address] [place] [address] [address] Referral ID Status Reason Start Date Expiration Date Visits Requested Visits Authorized [id number] Authorized Specialty Services Required 01/21/2024 07/19/2024 15 15 Encounter Details Date Type Department Care Team (Late st Contact Info) Description 02/05/2024 9:00 AM EDT Rehab Services Speech Therapy, [address] [address] Ursula Richardson CCC-MANUSCRIPT EDITOR [address] [place] [address] Cerebral infarction, unspecified mechanism (HCC)* Allergies Active [...] mRNA, LNP-s, No Pre serve, 2-Dose Series (Dynis) 09/23/2021 Pneumococcal Conjugate Vacci ne, 20-valent ([id number]) 12/12/2023(Deferred: Patient Refused - Renee Duarte MD) [...] this encounter Progress Notes * Ursula Richardson, PÉREZ-MANUSCRIPT EDITOR - 02/07/2024 7:53 AM EDT COGNITIVE COMMUNICATION ASSESSMENT Speech Language Pathology Speech Therapy, [place] [address] [facility] [address] Patient Name: John Brothers Date of : 1970 Age: [age] year old Insurance: Payor: [facility] Plan: [facility] Product Type: *No Product type* Payor: [facility] TPA Plan: [facility] [id number] Product Type: *No Product type* Authorization for 15 visits 01/21/24- APPROX. 07/19/24 [id number] Date: 02/07/2024 Patient Verified by: Name and [...] within normal limits Personal: within normal limits Bryan: within normal limits Abstract: within normal limits [...] Rehab Potential: good RECOMMENDATIONS / TREATMENT PLAN: Iiumpo-Soecerab-Dqyrilzzf-Communication Therapy: Indicated 1x week for 4 weeks sld educational aide goal- (4 weeks) 03/04/2024 Improve overall cognitive [...] Date: Comments: PLEASE SIGN AND FAX TO [phone] Ursula Richardson M.S. PÉREZ-MANUSCRIPT EDITOR 02/07/2024 7:53 AM documented in this encounter Plan of Treatment Upcoming Encounters Date Type Department Care Team (Late st Contact Info) Description 02/10/2024 9:00 AM EDT Rehab Services Speech Therapy, [facility] [facility] [address] Ursula Richardson CCC-MANUSCRIPT EDITOR [address] [place] [address] 02/11/2024 6:15 AM EDT [facility] Call Center [address] [facility] [place] [address] [facility] 58 60 [facility] [place] [address] 02/12/2024 8:00 AM EDT PulmDiagnostic Pulmonary Function Lab, [facility] [address] [place] [address] [place], [address] [place] [address] 02/12/2024 10:20 AM EDT Office Visit Pulmonary Medicine, [facility] [address] [place] [address] Wyatt Gallegos MD [address] [facility] [place] [address] 02/13/2024 9:45 AM EDT Nurse Only Hematology Oncology [facility], [address] [address] [place], Nurse Lab Hem/Onc [address] [place] [address] [phone] 02/13/2024 10:30 AM EDT Office Visit Hematology Oncology [address] [address] Kerri Foote MD [facility] [address] [place], [place] [phone] 02/13/2024 11:30 AM EDT Hem/Onc Treatment Hematology Oncology [address] [address] [place], Chair 4 Hem/Onc [address] [place] [address] [id number] 2024 9:00 AM EDT Rehab Services Speech Therapy, [address] [address] Ursula Richardson [facility]-MANUSCRIPT EDITOR [address] [place] [address] 02/25/2024 9:30 AM EDT Appointment Radiology, [address] [phone] 03/04/2024 9:00 AM EDT Rehab Services Speech Therapy, [address] [address] Reginaldo Mendoza, MANUSCRIPT EDITOR [address] [place] [address] 05/06/2024 9:20 AM EDT Office Visit Neurology [address] [place] [address] Kathy Pryor PA-C [address] [place] [address] Health Maintenance Due Date Last Done Comments [...] this encounter Medical Devices Implanted Type Area Blood Splatter Analyst Device Identifier Shelf Expiration Date Model / Serial / Lot Power Port 8fr Sngl Lumen Plas - [id number] Implanted:Qty: 1 on 04/24/2021 at [facility] CR BARD : PERIPHERAL VASCULAR [id number] 02/24/2022 [id number] / / [id number] Port Implant W/8f Poly Cath - [id number] Implanted:Qty: 1 on 10/15/2023 at [facility] CR BARD : PERIPHERAL VASCULAR [id number] 03/27/2025 [id number] / / [id number] documented as of this encounter Visit Diagnoses [...] patient have Health Care Power of Air Sampler? No Full Code 05/23/2021 12:21 PM 05/24/2021 9:38 PM This order reflects the patients wishes and were consensually agreed upon. Question Answer Comments Discussion of Advance Directives occurred with: Patient Care Teams Pastoral Worker Relationship Specialty Start Date End Date Matthew Herrmann PA-C [address] [place] [address] [phone] PCP - General Physician Associate Editor 03/22/21 documented as of this encounter
--- OUTSIDE RECORDS SUMMARY | 2024-04-11 14:48 | External Medical Summary | Summary of Care ---
Author Name Unknown Organization [facility] Address [address] [place] [facility] [place] [address] Phone [phone] Care Team Providers Care Production Shift Supervisor Name Role Phone Matthew Herrmann PA-C Primary Care Provider [phone] Reason for Visit * Reason Onset Date Comments Home Monitoring Orders Only 01/03/2024 Encounter Details Date Type Department Care Team ([facility] Contact Info) Description 01/03/2024 Home Monitoring [address] [phone] Matthew Herrmann PA-C [address] [place] [address] Shortness of breath* Allergies Active Allergy Reactions Criticality Noted Date [...] mRNA, LNP-s, No Pre serve, 2-Dose Series (Kiwiple) 09/23/2021 Pneumococcal Conjugate Vacci ne, 20-valent ([id number]) 12/12/2023(Deferred: Patient Refused - Renee Duarte MD) [...] as of this encounter Progress Notes * Lubna Perez OSA - 01/03/2024 9:25 AM EST Patient has been discharged from the [place] [address] home monitoring program due to Pleased[facility]charge the patient from [facility]. Device(s) to be discontinued: 20/05 WEARABLE due to COMPLETION OF THERAPY. Thank you. documented in this encounter Plan of Treatment Upcoming Encounters Date Type Department Care Team (Late st Contact Info) Description 01/03/2024 10:30 AM EST Hem/Onc Treatment Hematology Oncology [facility], [address] [place] [address] Chair [place] 4 Hem/Onc [address] [place] [address] Arrived 01/03/2024 10:30 AM EST Scheduled Telephone Care Coordination and Integration [facility] [place] [address] Mere Peterson, Community Health Large Engine Assembler [address] [place], [place] 01/23/2024 7:45 AM EDT Nurse Only Hematology Oncology [facility], [place] [address] [place] [address] [place], Nurse Lab Hem/Onc [address] [place] [address] 01/23/2024 8:30 AM EDT Office Visit Hematology Oncology [address] [phone] Nicole Carrillo PA-C [address] [place] [address] 01/23/2024 9:30 AM EDT Hem/Onc Treatment Hematology Oncology [facility], [address] [address] [place], Chair 4 Hem/Onc [address] [place] [address] 02/03/2024 12:40 PM EDT Laboratory Laboratory [facility] [phone] [address] [address] 02/04/2024 6:15 AM EDT Anticoagulation Pharmacy Call Center 58[address]60 [facility] [place] [address] [facility], [facility] 58 60 [facility] [place] [address] 02/12/2024 8:00 AM EDT PulmDiagnostic Pulmonary Function Lab, [facility] 132 [facility] [place] [address] [place], Pft [address] [facility] [place] [address] 02/12/2024 10:20 AM EDT Office Visit Pulmonary Medicine, [facility] [address] [facility] [place] [address] Wyatt Gallegos MD [address] [facility] [address] 02/13/2024 9:45 AM EDT Nurse Only Hematology Oncology [facility], [address] [address] [place], Nurse Lab Hem/Onc [address] [place] [address] 02/13/2024 10:30 AM EDT Office Visit Hematology Oncology [facility], [address] [address] Kerri Foote MD [facility] [place] [address] 02/13/2024 11:30 AM EDT Hem/Onc Treatment Hematology Oncology [facility], [address] [address] [place], Chair 4 Hem/Onc [address] [place] [address] 02/25/2024 9:30 AM EDT Appointment Radiology, [address] [address] 05/06/2024 9:20 AM EDT Office Visit Neurology [address] [place] [address] [place] [phone] Kathy Pryor PA-C [address] [place] [address] Health Maintenance Due Date Last Done Comments [...] this encounter Medical Devices Implanted Type Area Child Support Investigator Device Identifier Shelf Expiration Date Model / Serial / Lot Power Port 8fr Sngl Lumen Plas - [id number] Implanted:Qty: 1 on 04/24/2021 at [facility] CR BARD : PERIPHERAL VASCULAR [id number] 02/24/2022 [id number] / / [id number] Port Implant W/8f Poly Cath - [id number] Implanted:Qty: 1 on 10/15/2023 at [facility] CR BARD : PERIPHERAL VASCULAR [id number] 03/27/2025 [id number] / / [id number] documented as of this encounter Visit Diagnoses Diagnosis Shortness of breath- Primary documented in this encounter Advance Directives [...] the patient have Health Care Power of Heel Stainer? No Full Code 05/23/2021 12:21 PM 05/24/2021 9:38 PM This order reflects the patients wishes and were consensually agreed upon. Question Answer Comments Discussion of Advance Directives occurred with: Patient Care Teams Production Shift Supervisor Relationship Specialty Start Date End Date Matthew Herrmann PA-C [address] [place], [place] [address] [phone] PCP - General Physician Large Engine Assembler 03/22/21 documented as of this encounter
--- OUTSIDE RECORDS SUMMARY | 2024-04-11 14:48 | External Medical Summary ---
Author Name Unknown Address Unknown Organization K01:[address] [address] Laboratory Report Ordering Provider Test Date Status JOSE STEELE 01/23/2024 08:00:02 Final Observation Date Value Abnormality Reference (Units ) Status SYNC LEUKOCYTES IN BLOOD BY AUTOMATED COUNT 01/23/2024 08:00:02 5.87 4.00-10.80 (K/uL) Final Segs 01/23/2024 08:00:02 54.9 40.0-75.0 (%) Final Lymphs % 01/23/2024 08:00:02 31.0 18.0-42.0 (%) Final Monos 01/23/2024 08:00:02 9.5 1.0-11.0 (%) Final Eosinophils 01/23/2024 08:00:02 2.7 0.0-6.0 (%) Final Basos 01/23/2024 08:00:02 1.4 0.0-2.0 (%) Final Immature Granulocyte, Percent 01/23/2024 08:00:02 0.5 0.0-2.0 (%) Final Absolute Segs 01/23/2024 08:00:02 3.22 1.80-7.70 (K/uL) Final Lymphs, absolute 01/23/2024 08:00:02 1.82 1.00-4.80 (K/ul) Final Monos, Abs 01/23/2024 08:00:02 0.56 0.00-1.10 (K/uL) Final Eos, Abs 01/23/2024 08:00:02 0.16 0.00-0.70 (K/uL) Final Basos, Abs 01/23/2024 08:00:02 0.08 0.00-0.20 (K/uL) Final Immature Granulocytes, Number 01/23/2024 08:00:02 0.03 0.00-0.20 (K/uL) Final Performing Location [facility] - [address] [place] [address]
--- OUTSIDE RECORDS SUMMARY | 2024-04-11 14:48 | External Medical Summary ---
Author Name Unknown Address Unknown Organization K01:LABORATORY [facility] - [facility] [place] [address] Laboratory Report Ordering Provider Test Date Status JOSE STEELE 01/23/2024 08:00:02 Final Observation Date Value Abnormality Reference (Units ) Status LMW Heparin [Units/volume] in Platelet poor plasma by Chromogenic method 01/23/2024 08:00:02 0.87 Above high normal <0.10 (IU/mL) Final Low molecular weight heparin 's therapeutic range is 0.6 - 1.00 I.U./mL. Performing Location LABORATORY [facility] - [address] [place] [address]
--- OUTSIDE RECORDS SUMMARY | 2024-04-11 14:48 | External Medical Summary | Summary of Care ---
Author Name Unknown Organization [facility] Address [address] [place] [address] Phone [phone] Care Team Providers Care Photographic Developer And Printer Name Role Phone Matthew Herrmann PA-C Primary Care Provider [phone] Reason for Visit * Evaluate & Treat - Unlimited Visits (Within 10 days (routine)) - Authorized Specialty Diagnoses / Procedures Referred By Yuli seay Referred To Contact Hematology/Oncology / Hematology Oncology Diagnoses Malignant neoplasm of unspecified part of unspecified bronchus or lung (HCC) Yonathan Tomas CRNP [address] [place] [address] Referral ID Status Reason Start Date Expiration Date Visits Requested Visits Authorized [id number] Authorized Specialty Services Required 11/05/2023 11/04/[phone] Encounter Details Date Type Department Care Team (Late st Contact Info) Description 01/23/2024 7:45 AM EDT Nurse Only [facility] [address], [place] [phone] [place], Nurse Lab Hem/Onc [address], [place] [phone] Arrived Allergies Active Allergy Reactions Criticality Noted [...] mRNA, LNP-s, No Pre serve, 2-Dose Series (Munchkin Fun) 09/23/2021 Pneumococcal Conjugate Vacci ne, 20-valent ([id number]) 12/12/2023(Deferred: Patient Refused - Renee Duarte MD) [...] Office Visit Hematology Oncology [facility], [address] [address] Jessica Jeffers CRNP [address] [place] [address] Hematology/Oncology Outpatient Clinic note 01/23/2024 9:30 AM EDT Hem/Onc Treatment Hematology Oncology [facility], [place] [address] [place] [address] [place], Chair 4 Hem/Onc [address] [place] [address] Arrived 02/03/2024 12:40 PM EDT Laboratory [facility], [address] [phone] [address] [address] 02/04/2024 6:15 AM EDT Anticoagulation Pharmacy Call Center 58-60 [facility] [place] [address] [facility] 58 [address] [facility] [place] [address] 02/05/2024 9:00 AM EDT Rehab Services Speech Therapy, [facility] [address] [place] [address] Reginaldo Mendoza, TAR POT MAN [address] [place] [address] 02/12/2024 8:00 AM EDT PulmDiagnostic Pulmonary Function Lab, [facility] 132 [facility] [place] [address] West, Pft 132 [facility] TG [place] [address] 02/12/2024 10:20 AM EDT Office Visit Pulmonary Medicine, [facility] 132 [facility] TG [place] [address] Wyatt Gallegos MD [address] [place] [phone] 02/13/2024 9:45 AM EDT Nurse Only Hematology Oncology [facility], [address] [address] [place], Nurse Lab Hem/Onc [address] [place] [address] 02/13/2024 10:30 AM EDT Office Visit Hematology Oncology [facility], [address] [phone] Kerri Foote MD [address] [place] [phone] 02/13/2024 11:30 AM EDT Hem/Onc Treatment Hematology Oncology [facility], [address] [address] [place], Chair 4 Hem/Onc [address] [place] [phone] 02/25/2024 9:30 AM EDT Appointment Radiology, [address] [address] 05/06/2024 9:20 AM EDT Office Visit Neurology [facility] 200 [facility] [place] [address] Kathy Pryor PA-C [address] [facility] [place] [address] Pending Results Name Type Priority Associated Diagnoses Date /Time HEPARIN, LOW MOLECULAR WEIGHT Lab Routine Primary malignant neoplasm of left lower lobe of lung (HCC) 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) Encounter for antineoplastic chemotherapy 01/23/2024 8:00 AM EDT COMPREHENSIVE METABOLIC PANEL Lab Routine Primary malignant neoplasm of left lower lobe of lung (HCC) 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) 01/23/2024 8:00 AM EDT Scheduled Orders Name Type Priority Associated Diagnoses Orde r Schedule HEPARIN, LOW MOLECULAR WEIGHT Lab Routine Primary malignant neoplasm of left lower lobe of lung (HCC) 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) Encounter for antineoplastic chemotherapy Expected: 01/23/2024, Expires: 01/22/2025 Health Maintenance Due Date Last Done Comments [...] this encounter Medical Devices Implanted Type Area Custodial Operations Manager Device Identifier Shelf Expiration Date Model / Serial / Lot Power Port 8fr Sngl Lumen Plas - [id number] Implanted:Qty: 1 on 04/24/2021 at [facility] CR BARD : PERIPHERAL VASCULAR [id number] 02/24/2022 [id number] / / [id number] Port Implant W/8f Poly Cath - [id number] Implanted:Qty: 1 on 10/15/2023 at [facility] CR BARD : PERIPHERAL VASCULAR [id number] 03/27/2025 [id number] / / [id number] documented as of this encounter Procedures Procedure Name Priority Date/Time Associated Diagnosis Comments DIFFERENTIAL, AUTOMATED Routine 01/23/2024 8:00 AM EDT Primary malignant neoplasm of left lower lobe of lung (HCC) 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) CBC Routine 01/23/2024 8:00 AM EDT Primary malignant neoplasm of left lower lobe of lung (HCC) 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) CBC Routine 01/23/2024 8:00 AM EDT Primary malignant neoplasm of left lower lobe of lung (HCC) 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) documented in this encounter Results * DIFFERENTIAL, AUTOMATED (01/23/2024 8:00 AM EDT) Pathologist [facility] WBC 5.87 4.00 - 10.80 K/uL 01/23/2024 8:05 AM EDT [facility] Neutrophils % 54.9 40.0 - 75.0 % 01/23/2024 8:05 AM EDT [facility] Lymphocytes % 31.0 18.0 - 42.0 % 01/23/2024 8:05 AM EDT [facility] Monocytes % 9.5 1.0 - 11.0 % 01/23/2024 8:05 AM EDT [facility] Eosinophils % 2.7 0.0 - 6.0 % 01/23/2024 8:05 AM EDT [facility] Basophils % 1.4 0.0 - 2.0 % 01/23/2024 8:05 AM EDT [facility] Immature Granulocytes % 0.5 0.0 - 2.0 % 01/23/2024 8:05 AM EDT [facility] Absolute Neutrophils 3.22 1.80 - 7.70 K/uL 01/23/2024 8:05 AM EDT [facility] Absolute Lymphocytes 1.82 1.00 - 4.80 K/ul 01/23/2024 8:05 AM EDT [facility] Absolute Monocytes 0.56 0.00 - 1.10 K/uL 01/23/2024 8:05 AM EDT [facility] Absolute Eosinophils 0.16 0.00 - 0.70 K/uL 01/23/2024 8:05 AM EDT [facility] Absolute Basophils 0.08 0.00 - 0.20 K/uL 01/23/2024 8:05 AM EDT [facility] Absolute Immature Granulocytes 0.03 0.00 - 0.20 K/uL 01/23/2024 8:05 AM EDT [facility] Blood Blood sample taken from central line / Unknown Central Line / Unknown 01/23/2024 8:00 AM EDT 01/23/2024 8:03 AM EDT Kerri Foote MD LAB BLOOD ORDERAB LES [facility] [address] [place] [address] * CBC (01/23/2024 8:00 AM EDT) WBC 5.87 4.00 - 10.80 K/uL 01/23/2024 8:05 AM EDT [facility] RBC 4.55 4.50 - 5.25 M/uL 01/23/2024 8:05 AM EDT [facility] HGB 14.1 14.0 - 16.8 g/dL 01/23/2024 8:05 AM EDT [facility] HCT 42.3 40.0 - 48.4 % 01/23/2024 8:05 AM EDT [facility] MCV 93.0 82.0 - 99.5 fL 01/23/2024 8:05 AM EDT [facility] MCH 31.0 27.0 - 34.0 pg 01/23/2024 8:05 AM EDT [facility] MCHC 33.3 32.0 - 36.0 g/dL 01/23/2024 8:05 AM EDT [facility] RDW 15.1 11.5 - 15.5 % 01/23/2024 8:05 AM EDT [facility] PLT 265 140 - 400 K/uL 01/23/2024 8:05 AM EDT [facility] MPV 10.1 6.6 - 11.1 fL 01/23/2024 8:05 AM EDT [facility] nRBCs 0 <=0 /100 WBCs 01/23/2024 8:05 AM EDT [facility] Blood Blood sample taken from central line / Unknown Central Line / Unknown 01/23/2024 8:00 AM EDT 01/23/2024 8:03 AM EDT Kerri Foote MD LAB BLOOD ORDERAB LES [facility] [address] [place] [address] documented in this encounter Visit Diagnoses Diagnosis Primary malignant neoplasm of left lower lobe of lung (HCC)- Primary Malignant neoplasm of lower lobe, bronchus, or lung 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 No Full Code 05/23/2021 12:21 PM 05/24/2021 9:38 PM This order reflects the patients wishes and were consensually agreed upon. Question Answer Comments Discussion of Advance Directives occurred with: Patient Care Teams Photographic Developer And Printer Relationship Specialty Start Date End Date Matthew Herrmann PA-C [address] [place] [id number] PCP - General Physician Drop Hammer Operator Helper 03/22/21 documented as of this encounter
--- OUTSIDE RECORDS SUMMARY | 2024-04-11 14:49 | External Medical Summary | Summary of Care ---
Author Name Unknown Organization [facility] Address [address] [facility] [address] Phone [phone] Care Team Providers Care Floor Coverings Installer Name Role Phone Matthew Herrmann PA-C Primary Care Provider [phone] Encounter Details Date Type Department Care Team (Late st Contact Info) Description 01/03/2024 Orders Only PATIENT PORTAL DO NOT DELETE THIS DEPT USED BY TG [place] [id number] Allergies Active Allergy Reactions Criticality Noted Date [...] mRNA, LNP-s, No Pre serve, 2-Dose Series (tic) 09/23/2021 Pneumococcal Conjugate Vacci ne, 20-valent ([id number]) 12/12/2023(Deferred: Patient Refused - Renee Duarte MD) [...] Team (Late st Contact Info) Description 01/03/2024 8:45 AM EST Nurse Only Hematology Oncology [facility], [address] [address] [place], Nurse Lab Hem/Onc [facility] [address] 01/03/2024 9:30 AM EST Office Visit Hematology Oncology [facility], [place] [address] [place] [address] Velia Segundo PA-C [address] [place], [place] [phone] 01/03/2024 10:30 AM EST Hem/Onc Treatment Hematology Oncology [facility], [place] [address] [place] [address] [place], Chair 4 Hem/Onc [facility] [place] [address] 01/03/2024 10:30 AM EST Scheduled Telephone Care Coordination and Integration [address] [place] [address] Mere Peterson, [facility] Accounts Receivable Processor [address] [place] [address] 01/23/2024 7:45 AM EDT Nurse Only Hematology Oncology [facility], [place] [address] [place] [address] [place], Nurse Lab Hem/Onc [facility] [place] [address] 01/23/2024 8:30 AM EDT Office Visit Hematology Oncology [facility] [address] [place] [phone] Nicole Carrillo PA-C [address] [place] [address] 01/23/2024 9:30 AM EDT Hem/Onc Treatment Hematology Oncology [facility], [place] [address] [place] [address] [place], Chair 4 Hem/Onc [facility] [place] [address] 02/03/2024 12:40 PM EDT Laboratory [facility], [address] [phone] [address] [address] 02/04/2024 6:15 AM EDT Anticoagulation Pharmacy Call Center WB 58-60 [facility] [place] [address] [facility] 58 60 [facility] [place] [address] 02/12/2024 8:00 AM EDT PulmDiagnostic Pulmonary Function Lab, [facility] 132 [facility] [place] [address] West, Pft 132 [facility] [place] [address] 02/12/2024 10:20 AM EDT Office Visit Pulmonary Medicine, [facility] 132 [facility] [place] [address] Wyatt Gallegos MD [address] [place] [address] 02/13/2024 9:45 AM EDT Nurse Only Hematology Oncology [facility]er [facility], [address] [address] [place], Nurse Lab Hem/Onc [address] [place] [address] 02/13/2024 10:30 AM EDT Office Visit Hematology Oncology [facility], [address] [phone] Kerri Foote MD [facility] [place] [address] 02/13/2024 11:30 AM EDT Hem/Onc Treatment Hematology Oncology [facility], [address] [address] [place], Chair 4 Hem/Onc [address] [place] [address] 02/25/2024 9:30 AM EDT Appointment Radiology, [address] [phone] 05/06/2024 9:20 AM EDT Office Visit Neurology [address] [place] [facility] [place] [address] Kathy Pryor PA-C 200 [facility] [place] [phone] Health Maintenance Due Date Last Done Comments [...] this encounter Medical Devices Implanted Type Area Commissioner Of Officials Device Identifier Shelf Expiration Date Model / Serial / Lot Power Port 8fr Sngl Lumen Plas - [id number] Implanted:Qty: 1 on 04/24/2021 at [facility] CR BARD : PERIPHERAL VASCULAR [id number] 02/24/2022 [id number] / / [id number] Port Implant W/8f Poly Cath - [id number] Implanted:Qty: 1 on 10/15/2023 at [facility] CR BARD : PERIPHERAL VASCULAR [id number] 03/27/2025 [id number] / / [id number] documented as of this encounter Advance Directives [...] the patient have Health Care Power of Liaison Officer? No Full Code 05/23/2021 12:21 PM 05/24/2021 9:38 PM This order reflects the patients wishes and were consensually agreed upon. Question Answer Comments Discussion of Advance Directives occurred with: Patient Care Teams Floor Coverings Installer Relationship Specialty Start Date End Date Matthew Herrmann PA-C [address] [place] [phone] PCP - General Physician Accounts Receivable Processor 03/22/21 documented as of this encounter
--- OUTSIDE RECORDS SUMMARY | 2024-04-11 14:49 | External Medical Summary | Summary of Care ---
Author Name Unknown Organization [facility] Address [address] [place] [address] Phone [phone] Care Team Providers Care Hole Digger Name Role Phone Matthew Herrmann PA-C Primary Care Provider [phone] Encounter Details Date Type Department Care Team (Late st Contact Info) Description 01/01/2024 Orders Only Hematology Oncology [facility] [address] [place] [address] Kerri Foote MD [address] [place] [address] Malignant neoplasm of lower lobe, left bronchus or lung (HCC)* Allergies Active Allergy Reactions Criticality Noted Date Comments Carboplatin High 11/14/2021 Dyspnea, chest pain, hypoxia, sore throat, edema throat, flushing, mild hypotension Isosorbide Nitrate Other (Please comment) 07/22/2023 Headache documented as of this encounter (statuses as of 01/01/2024) Medications Medication Sig Dispensed Refills Start Date End Date Status Vitamin E 1000 UNIT Oral Capsule Take 1 Capsule by mouth in the morning. 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 30 Tablet 3 09/30/2023 Active OLANZapine 5 MG Oral Tablet (zyPREXA)Indications:N on-small cell lung cancer metastatic to bone (HCC),Chemotherapy [...] the morning. 90 Tablet 3 12/30/2023 Active documented as of this encounter (statuses as of 01/01/2024) Active Problems Problem Noted Date Diagnosed Date [...] as of this encounter (statuses as of 01/01/2024) Resolved Problems Problem Noted Date Diagnosed Date Resolved Date MSSA bacteremia 08/01/2021 08/07/2021 Sepsis 08/01/2021 08/07/2021 COPD, group B, by GOLD 2017 classification 05/08/2021 06/21/2021 Overview: Per COPD GOLD Classification Obstructive lung disease 04/10/2021 Overview: Per COPD GOLD Classification documented as of this encounter (statuses as of 01/01/2024) Immunizations Name Administration Dates Next Due COVID-19 mRNA, LNP-s, No Pre serve, 2-Dose Series (Pfizer) 09/23/2021 Pneumococcal Conjugate Vacci ne, 20-valent ([id number]) 12/12/2023(Deferred: Patient Refused - Renee Duarte MD) [...] Care Team (Late st Contact Info) Description 01/02/2024 8:00 AM EST Office Visit Pulmonary Medicine, [facility] [place] [address] Wyatt Gallegos MD [address] [place] [address] 01/03/2024 8:45 AM EST Nurse Only Hematology Oncology [facility] [address] [place] [address] [place], Nurse Lab Hem/Onc [facility] [place] [address] 01/03/2024 9:30 AM EST Office Visit Hematology Oncology [facility] [address] [place] [phone] Velia Segundo PA-C [address] [place], [place] [phone] 01/03/2024 10:30 AM EST Hem/Onc Treatment Hematology Oncology [facility] [address] [place] [address] [place], Chair 4 Hem/Onc [address] [place] [address] 01/03/2024 10:30 AM EST Scheduled Telephone Care Coordination and Integration [address] [place] [address] Mere Peterson [facility] Garnett Fixer [address] [place], [place] [phone] 01/23/2024 7:45 AM EDT Nurse Only Hematology Oncology [facility] [address] [place] [address] [place], Nurse Lab Hem/Onc [address] [place] [address] 01/23/2024 8:30 AM EDT Office Visit Hematology Oncology [facility], [place] [address] [place] [phone] Nicole Carrillo PA-C [address] [place] [address] 01/23/2024 9:30 AM EDT Hem/Onc Treatment Hematology Oncology [facility], [place] [address] [place] [address] [place], Chair 4 Hem/Onc [address] [place] [id number] 02/03/2024 12:40 PM EDT Laboratory [facility], [address] [phone] [address] [address] 02/04/2024 6:15 AM EDT Anticoagulation Pharmacy Call Center 58-[address] [place] [address] [facility] 58 [address] [place] [address] 02/13/2024 9:45 AM EDT Nurse Only Hematology Oncology [address] [address] [place], Nurse Lab Hem/Onc [facility] [place] [address] 02/13/2024 10:30 AM EDT Office Visit Hematology Oncology [address] [phone] Kerri Foote MD [address] [place] [address] 02/13/2024 11:30 AM EDT Hem/Onc Treatment Hematology Oncology [facility], [place] [address] [place] [address] [place], Chair 4 Hem/Onc [address] [place] [facility] [place] [address] 02/25/2024 9:30 AM EDT Appointment Radiology, [place] [address] [place] [facility] [place] [phone] 05/06/2024 9:20 AM EDT Office Visit Neurology [address] [place] [address] [place] [address] Kathy Pryor PA-C [address] [place] [address] Scheduled Orders Name Type Priority Associated Diagnoses Orde r Schedule CBC WITH WBC DIFFERENTIAL Lab STAT Malignant neoplasm of lower lobe, left bronchus or lung (HCC) Expected: 01/01/2024 (Approximate), Expires: 12/31/2024 COMPREHENSIVE METABOLIC PANEL Lab STAT Malignant neoplasm of lower lobe, left bronchus or lung (HCC) Expected: 01/01/2024 (Approximate), Expires: 12/31/2024 Health Maintenance Due Date Last Done Comments [...] this encounter Medical Devices Implanted Type Area Computer Consultant Device Identifier Shelf Expiration Date Model / Serial / Lot Power Port 8fr Sngl Lumen Plas - [id number] Implanted:Qty: 1 on 04/24/2021 at [facility] CR BARD : PERIPHERAL VASCULAR [id number] 02/24/2022 [id number] / / [id number] Port Implant W/8f Poly Cath - [id number] Implanted:Qty: 1 on 10/15/2023 at [facility] CR BARD : PERIPHERAL VASCULAR [id number] 03/27/2025 [id number] / / [id number] documented as of this encounter Visit Diagnoses [...] the patient have Health Care Power of Sorter Packer? No Full Code 05/23/2021 12:21 PM 05/24/2021 9:38 PM This order reflects the patients wishes and were consensually agreed upon. Question Answer Comments Discussion of Advance Directives occurred with: Patient Care Teams Hole Digger Relationship Specialty Start Date End Date Matthew Herrmann PA-C [address] [place] [address] [place] [address] PCP - General Physician Garnett Fixer 03/22/21 documented as of this encounter
--- OUTSIDE RECORDS SUMMARY | 2024-04-11 14:49 | External Medical Summary | Summary of Care ---
Author Name Unknown Organization [facility] Address [address] [facility] [address] Phone [phone] Care Team Providers Care Senior Applications Developer Name Role Phone Matthew Herrmann PA-C Primary Care Provider [phone] [phone] Reason for Visit * Reason Comments Dosage Adjustment Via Phone (anticoag Cl inic) Encounter Details Date Type Department Care Team (Latest Contact Info) Description 12/31/2023 6:[address] [facility] Anticoagulation Pharmacy Call Center WB 58-60 Public [place] [address] [facility] 58 60 Public [facility] [place] [phone] Acute deep vein thrombosis (DVT) of proximal [...] as of this encounter (statuses as of 12/31/2023) Medications Medication Sig Dispensed Refills Start Date [...] as of this encounter (statuses as of 12/31/2023) Active Problems Problem Noted Date Diagnosed Date [...] as of this encounter (statuses as of 12/31/2023) Resolved Problems Problem Noted Date Diagnosed Date Resolved Date MSSA bacteremia 08/01/2021 08/07/2021 Sepsis 08/01/2021 08/07/2021 COPD, group B, by GOLD 2017 classification 05/08/2021 06/21/2021 Overview: Per COPD GOLD Classification Obstructive lung disease 04/10/2021 Overview: Per COPD GOLD Classification documented as of this encounter (statuses as of 12/31/2023) Immunizations Name Administration Dates Next Due COVID-19 mRNA, LNP-s, No Pre serve, 2-Dose Series (Pfizer) 09/23/2021 Pneumococcal Conjugate Vacci ne, 20-valent ([id number]) 12/12/2023(Deferred: Patient Refused - Renee Duarte MD) [...] as of this encounter Progress Notes * Rufina Bearden attraction attendant - 12/31/2023 10:55 AM EST Patient Phone Numbers Spoke to John via phone. Unusual Bruising or Bleeding : no Upcoming procedure: no Lovenox dose verified: compliant Labs were drawn ~ 4 hours after dose yes; AntiXa results, Lovenox dose instructions, and next antiXa date communicated as noted by Pharmacist: Yes Thank you, Rufina Bearden Flatwork Finisher [facility] 12/31/2023,10:55 AM * Margret Hdez RPh - 12/31/2023 8:49 AM EST Anticoagulation Clinic Current Lovenox Dose: 70 mg every 12 hours AntiXa level 0.74 (goal 0.6-1.0) Dose instructions: Lovenox 70 mg every 12 hours Repeat antiXa level in 5 weeks on 02/03/24 at [place]. Remind patient that labs must be drawn 4 hours after dose. SHIRA to contact patient with dose instructions as noted. Margret Hdez RPh 12/31/23, 8:49 AM documented in this encounter Plan of Treatment Upcoming Encounters Date Type Department Care Team (Late st Contact Info) Description 01/02/2024 8:00 AM EST Office Visit Pulmonary Medicine, [facility] 132 [facility] [place] [address] Wyatt Gallegos MD [address] [facility] [place] [address] 01/03/2024 8:45 AM EST Nurse Only Hematology Oncology [facility], [place] [address] [place] [address] [place], Nurse Lab Hem/Onc [address] [place] [address] 01/03/2024 9:30 AM EST Office Visit Hematology Oncology [place] [address] [place] [phone] Velia Segundo PA-C [facility] [place] [address] 01/03/2024 10:30 AM EST Hem/Onc Treatment Hematology Oncology [place] [address] [place] [address] [place], Chair 4 Hem/Onc [address] [place] [address] 01/03/2024 10:30 AM EST Scheduled Telephone Care Coordination and Integration [facility] [place] [address] Mere Peterson, Community Health Clip Loading Machine Feeder [facility] [place] [address] 01/23/2024 7:45 AM EDT Nurse Only Hematology Oncology [facility] [address] [place] [address] [place], Nurse Lab Hem/Onc [address] [place] [address] 01/23/2024 8:30 AM EDT Office Visit Hematology Oncology [address] [phone] Nicole Carrillo PA-C [facility] [address] [place], [place] [phone] 01/23/2024 9:30 AM EDT Hem/Onc Treatment Hematology Oncology [facility] [address] [place] [address] [place], Chair 4 Hem/Onc [address] [place] [address] 02/04/2024 6:15 AM EDT Anticoagulation Pharmacy Call Center WB 58-[address] [place] [address] [facility], [facility] 58 60 [place] [address] 02/13/2024 9:45 AM EDT Nurse Only Hematology Oncology [facility], [place] [address] [place] [address] [place], Nurse Lab Hem/Onc [address] [place] [address] 02/13/2024 10:30 AM EDT Office Visit Hematology Oncology [facility], [place] [address] [place] [address] Kerri Foote MD [facility] [place] [address] 02/13/2024 11:30 AM EDT Hem/Onc Treatment Hematology Oncology [facility], [place] [address] [place] [address] [place], Chair 4 Hem/Onc [address] [place] [address] 02/25/2024 9:30 AM EDT Appointment Radiology, [address] [phone] 05/06/2024 9:20 AM EDT Office Visit Neurology [address] [place] 200 [facility] [place] [phone] Kathy Pryor PA-C [address] [place] [phone] Health Maintenance Due Date Last Done Comments [...] this encounter Medical Devices Implanted Type Area Certified Registered Nurse Practitioner Device Identifier Shelf Expiration Date Model / Serial / Lot Power Port 8fr Sngl Lumen Plas - [id number] Implanted:Qty: 1 on 04/24/2021 at [facility] CR BARD : PERIPHERAL VASCULAR [id number] 02/24/2022 [id number] / / [id number] Port Implant W/8f Poly Cath - [id number] Implanted:Qty: 1 on 10/15/2023 at [facility] CR BARD : PERIPHERAL VASCULAR [id number] 03/27/2025 [id number] / / [id number] documented as of this encounter Visit Diagnoses [...] the patient have Health Care Power of Item Processor? No Full Code 05/23/2021 12:21 PM 05/24/2021 9:38 PM This order reflects the patients wishes and were consensually agreed upon. Question Answer Comments Discussion of Advance Directives occurred with: Patient Care Teams Senior Applications Developer Relationship Specialty Start Date End Date Matthew Herrmann PA-C [address] [place] [address] [place] [address] PCP - General Physician Clip Loading Machine Feeder 03/22/21 documented as of this encounter
--- OUTSIDE RECORDS SUMMARY | 2024-04-11 14:49 | External Medical Summary | Summary of Care ---
Author Name Unknown Organization [facility] Address [address] [place] [address] Phone [phone] Care Team Providers Care Passenger Car Conductor Name Role Phone Matthew Herrmann PA-C Primary Care Provider [phone] Reason for Visit * Reason Onset Date Comments Medication Refill 12/30/2023 Dary Encounter Details Date Type Department Care Team (Late st Contact Info) Description 12/30/2023 Refill Hematology Oncology [facility] [address] [place] [address] Ivette Foote MD [address] [place] [address] Generalized edema due to fluid overload Allergies Active Allergy Reactions Criticality Noted Date Comments Carboplatin High 11/14/2021 Dyspnea, chest pain, hypoxia, sore throat, edema throat, flushing, mild hypotension Isosorbide Nitrate Other (Please comment) 07/22/2023 Headache documented as of this encounter (statuses as of 12/30/2023) Medications Medication Sig Dispensed Refills Start Date [...] the morning. 90 Tablet 3 12/30/2023 Active Furosemide 20 MG Oral Tablet (Lasix)Indications:G eneralized edema due to fluid overload Take 1 Tablet by mouth in the morning. 30 Tablet 0 11/21/2023 Discontinue d(Refill) documented as of this encounter (statuses as of 12/30/2023) Active Problems Problem Noted Date Diagnosed Date [...] as of this encounter (statuses as of 12/30/2023) Resolved Problems Problem Noted Date Diagnosed Date Resolved Date MSSA bacteremia 08/01/2021 08/07/2021 Sepsis 08/01/2021 08/07/2021 COPD, group B, by GOLD 2017 classification 05/08/2021 06/21/2021 Overview: Per COPD GOLD Classification Obstructive lung disease 04/10/2021 Overview: Per COPD GOLD Classification documented as of this encounter (statuses as of 12/30/2023) Immunizations Name Administration Dates Next Due COVID-19 mRNA, LNP-s, No Pre serve, 2-Dose Series (Breeze) 09/23/2021 Pneumococcal Conjugate Vacci ne, 20-valent ([id number]) 12/12/2023(Deferred: Patient Refused - Renee Duarte MD) [...] Telephone Encounter - Ivette Foote MD - 12/30/2023 11:11 AM ESTSigned Prescriptions: Disp Refills Furosemide 20 MG Oral Tablet (Lasix) 90 Tab*3 Sig: Take 1 Tablet by mouth in the morning. Authorizing Provider: IVETTE FOOTE * Telephone Encounter - Robyn Jackson LPN - 12/30/2023 9:52 AM ESTPending Prescriptions: Disp Refills Furosemide 20 MG Oral Tablet (Lasix) 30 Tab*0 Sig: Take 1 Tablet by mouth in the morning. * Telephone Encounter - Robyn Jackson LPN - 12/30/2023 9:50 AM EST [facility] [place] requesting refills of Furosemide for patient. Please review and sign if appropriate. * Telephone Encounter - Kristen Arnold OSA - 12/30/2023 9:05 AM EST Fax request received documented in this encounter Plan of Treatment Upcoming Encounters Date Type Department Care Team (Late st Contact Info) Description 01/02/2024 8:00 AM EST Office Visit Pulmonary Medicine, [facility] 132 [facility] [place] [address] Wyatt Gallegos MD [address] [facility] [address] 01/03/2024 8:45 AM EST Nurse Only Hematology Oncology [facility], [address] [phone] [place], Nurse Lab Hem/Onc [address] [place] [phone] 01/03/2024 9:30 AM EST Office Visit Hematology Oncology [facility], [address] [phone] Velia Segundo PA-C [address] [place] [address] [phone] 01/03/2024 10:30 AM EST Hem/Onc Treatment Hematology Oncology [facility], [address] [phone] [place], Chair 4 Hem/Onc [address] [place] [address] [phone] 01/03/2024 10:30 AM EST Scheduled Telephone Care Coordination and Integration [address] [place] [phone] Mere Peterson, Community Health Storage Battery Inspector [address] [place] [address] 01/23/2024 7:45 AM EDT Nurse Only Hematology Oncology [facility], [address] [address] [place], Nurse Lab Hem/Onc [address] [place] [address] 01/23/2024 8:30 AM EDT Office Visit Hematology Oncology [facility], [place] [address] [place] [address] Nicole Carrillo PA-C [address] [place] [address] 01/23/2024 9:30 AM EDT Hem/Onc Treatment Hematology Oncology [facility], [place] [address] [place] [address] [place], Chair 4 Hem/Onc [address] [place] [address] 01/24/2024 6:15 AM EDT Anticoagulation Pharmacy Call Center 58-[address] [place] [address] [facility], [facility] 58 60 [place] [address] 02/13/2024 9:45 AM EDT Nurse Only Hematology Oncology [facility], [place] [address] [place] [address] [place], Nurse Lab Hem/Onc [facility] [place] [address] 02/13/2024 10:30 AM EDT Office Visit Hematology Oncology [facility], [place] [address] [place] [phone] Ivette Foote MD [address] [place] [address] 02/13/2024 11:30 AM EDT Hem/Onc Treatment Hematology Oncology [facility], [place] [address] [place] [address] [place], Chair 4 Hem/Onc [address] [place] [address] 02/25/2024 9:30 AM EDT Appointment Radiology, [place] [address] [place] [phone] 05/06/2024 9:20 AM EDT [facility] [place] 200 [facility] [place] [address] Kathy Pryor PA-C [address] [facility] [place] [address] Health Maintenance Due Date Last Done Comments [...] this encounter Medical Devices Implanted Type Area Behavioral Medical Director Device Identifier Shelf Expiration Date Model / Serial / Lot Power Port 8fr Sngl Lumen Plas - [id number] Implanted:Qty: 1 on 04/24/2021 at [facility] CR BARD : PERIPHERAL VASCULAR [id number] 02/24/2022 [id number] / / [id number] Port Implant W/8f Poly Cath - [id number] Implanted:Qty: 1 on 10/15/2023 at [facility] CR BARD : PERIPHERAL VASCULAR [id number] 03/27/2025 [id number] / / [id number] documented as of this encounter Visit Diagnoses Diagnosis Generalized edema due to fluid overload documented in this encounter Advance Directives Latest [...] the patient have Health Care Power of Hard Candy Batch Mixer? No Full Code 05/23/2021 12:21 PM 05/24/2021 9:38 PM This order reflects the patients wishes and were consensually agreed upon. Question Answer Comments Discussion of Advance Directives occurred with: Patient Care Teams Passenger Car Conductor Relationship Specialty Start Date End Date Matthew Herrmann PA-C [address] [place] [address] [place] [address] PCP - General Physician Storage Battery Inspector 03/22/21 documented as of this encounter
--- OUTSIDE RECORDS SUMMARY | 2024-04-11 14:49 | External Medical Summary | Summary of Care ---
Author Name Unknown Organization [facility] Address [address] [place] [address] Phone [phone] Care Team Providers Care Sales Promotion Manager Name Role Phone Matthew Herrmann PA-C Primary Care Provider [phone] Reason for Visit * Evaluate & Treat - Unlimited Visits (Within 10 days (routine)) - Authorized Specialty Diagnoses / Procedures Referred By Yuli seay Referred To Contact Hematology/Oncology / Hematology Oncology Diagnoses Malignant neoplasm of unspecified part of unspecified bronchus or lung (HCC) Yonathan Tomas CRNP [address] [place] [address] Referral ID Status Reason Start Date Expiration Date Visits Requested Visits Authorized [id number] Authorized Specialty Services Required 11/05/2023 11/04/[id number] Encounter Details Date Type Department Care Team (Latest Contact Info) Description 11/21/2023 9:00 AM EST Hem/Onc Treatment Hematology Oncology [facility], [place] [address] [place] [address] [place], [facility] 4 Hem/Onc [facility] [address] [place], [place] [phone] Chemotherapy adverse reaction, initial encounter*; Chemotherapy induced [...] 09/22/2023 Active dexAMETHasone 4 MG Oral Tablet (Decadron)Indicatio [...] 09/30/2023 Active OLANZapine 5 MG Oral Tablet (zyPREXA)Indication [...] of Breath. 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 30 Tablet 5 09/23/2023 4 Discontinued Azithromycin 250 MG Oral Tablet (Zithromax)Indicati ons:LRTI (lower respiratory tract infection) Take 2 tabs by mouth on the first day, then 1 tab daily on days two through five 6 Tablet 0 10/29/2023 4 Discontinued Amoxicillin-Pot Clavulanate 875-125 MG Oral Tablet (Augmentin)Indicati ons:LRTI (lower respiratory tract infection) Take 1 Tablet by mouth in the morning and 1 Tablet before bedtime. Do all this for 10 days. 20 Tablet 0 10/29/2023 4 Discontinued documented as of this encounter (statuses as of 12/30/2023) Active Problems Problem Noted Date Diagnosed Date History of pulmonary embolism 10/03/2023 Vertigo due [...] mRNA, LNP-s, No Pre serve, 2-Dose Series (SideStep) 09/23/2021 documented as of this encounter Social History [...] as of this encounter Nursing Notes * Nova Smith RN - 11/21/2023 8:35 AM EST Per Nicole Carrillo PA-C it is OK to get keytruda and taxol today, adding IV lasix to plan documented in this encounter Plan of Treatment Upcoming Encounters Date Type Department Care Team (Late st Contact Info) Description 01/02/2024 8:00 AM EST Office Visit Pulmonary Medicine, [facility] 132 [facility] [place] [address] Wyatt [facility]legos MD [address] [facility] [address] 01/03/2024 8:45 AM EST Nurse Only Hematology Oncology [address] [address] [place], Nurse Lab Hem/Onc [address] [place] [address] 01/03/2024 9:30 AM EST Office Visit Hematology Oncology [address] [place] [address] Velia Segundo PA-C [address] [place] [address] 01/03/2024 10:30 AM EST Hem/Onc Treatment Hematology Oncology [facility], [place] [address] [place] [address] [place], Chair 4 Hem/Onc [address] [place] [address] 01/23/2024 7:45 AM EDT Nurse Only Hematology Oncology [facility], [place] [address] [place] [address] [place], Nurse Lab Hem/Onc [facility] [place] [address] 01/23/2024 8:30 AM EDT Office Visit Hematology Oncology [facility], [place] [address] [place] [address] Nicole Carrillo PA-C [address] [place] [address] 01/23/2024 9:30 AM EDT Hem/Onc Treatment Hematology Oncology [facility], [place] [address] [place] [address] [place], Chair 4 Hem/Onc [address] [place] [address] 01/24/2024 6:15 AM EDT Anticoagulation Pharmacy Call Center WB 58-60 [facility] TG [place] [address] [facility] 58 60 [facility] [place] [address] 02/13/2024 9:45 AM EDT Nurse Only Hematology Oncology [place] [address] [place] [address] [place], Nurse Lab Hem/Onc [address] [place] [address] 02/13/2024 10:30 AM EDT Office Visit Hematology Oncology [facility], [address] [phone] Kerri Foote MD [facility] [address] [place], [place] [phone] 02/13/2024 11:30 AM EDT Hem/Onc Treatment Hematology Oncology [facility], [address] [phone] [place], Chair 4 Hem/Onc [address] [place] [address] [phone] 02/25/2024 9:30 AM EDT Appointment Radiology, [address] [phone] 05/06/2024 9:20 AM EDT Office Visit Neurology [facility] [place] 200 [place] [address] Kathy Pryor PA-C 200 [facility] [place] [phone] Health Maintenance Due Date Last Done Comments [...] this encounter Medical Devices Implanted Type Area Sustainable Systems Analyst Device Identifier Shelf Expiration Date Model / Serial / Lot Power Port 8fr Sngl Lumen Plas - [id number] Implanted:Qty: 1 on 04/24/2021 at [facility] CR BARD : PERIPHERAL VASCULAR [id number] 02/24/2022 [id number] / / [id number] Port Implant W/8f Poly Cath - [id number] Implanted:Qty: 1 on 10/15/2023 at [facility] CR BARD : PERIPHERAL VASCULAR [id number] 03/27/2025 [id number] / / [id number] documented as of this encounter Results * (ABNORMAL) COMPREHENSIVE METABOLIC PANEL (12/19/2023 12:15 PM EST) BUN 9 6 - 20 mg/dL 12/19/2023 7:04 PM EST [facility] Creatinine 0.9 0.6 - 1.2 mg/dL 12/19/2023 7:04 PM EST [facility] Estimated Glomerular Filtration Rate >90 >=60 mL/min 12/19/2023 7:04 PM EST [facility] Comment:eGFR is calculated b ased on the CKD-EPI 2020 equation Sodium 140 135 - 146 mmol/L 12/19/2023 7:04 PM EST [facility] Potassium 3.8 3.5 - 5.1 mmol/L 12/19/2023 7:04 PM EST [facility] Chloride 104 98 - 107 mmol/L 12/19/2023 7:04 PM EST [facility] CO2 26 22 - 32 mmol/L 12/19/2023 7:04 PM EST [facility] Anion Gap 10 7 - 15 mmol/L 12/19/2023 7:04 PM EST [facility] Glucose 100 70 - 120 mg/dL 12/19/2023 7:04 PM EST [facility] Albumin 4.0 3.8 - 5.0 g/dL 12/19/2023 7:04 PM EST [facility] AST 32 10 - 50 U/L 12/19/2023 7:04 PM EST [facility] Alkaline Phosphatase 102 35 - 130 U/L 12/19/2023 7:04 PM EST [facility] Bilirubin, Total 0.4 <=1.2 mg/dL 12/19/2023 7:04 PM EST [facility] Calcium 9.1 8.4 - 10.2 mg/dL 12/19/2023 7:04 PM EST [facility] Protein 6.7 6.0 - 8.3 g/dL 12/19/2023 7:04 PM EST [facility] ALT 52(H) 10 - 50 U/L 12/19/2023 7:04 PM EST [facility] Blood Venous blood specimen / Unknown Venipuncture / Unknown 12/19/2023 12:15 PM EST 12/19/2023 12:15 PM EST Kerri Foote MD LAB BLOOD ORDERAB LES [facility] [address] [place] [address] * TSH WITH FREE T4 IF INDICATED (12/19/2023 12:15 PM EST) TSH 2.10 0.27 - 4.20 uIU/mL 12/19/2023 8:29 PM EST LABORATORY GM Blood Venous blood specimen / Unknown Venipuncture / Unknown 12/19/2023 12:15 PM EST 12/19/2023 12:15 PM EST Kerri Foote MD LAB BLOOD ORDERAB LES [facility] [address] [place] [address] documented in this encounter Visit Diagnoses Diagnosis [...] mg 50 mg, Oral, ONCE, On Ofe 11/21/23 at 1030, For 1 dose Given 11/21/2023 9:30 AM EST 50 mg Famotidine (Pepcid) tab 20 mg 20 mg, Oral, ONCE, On Ofe 11/21/23 at 1030, For 1 dose Given 11/21/2023 9:30 AM EST 20 mg Furosemide (Lasix) inj 40 mg 40 mg, IV Push, ONCE, On Ofe 11/21/23 at 1000, For 1 dose Given 11/21/2023 9:34 AM EST 40 mg hEParin 100 UNIT/ML Lock Flush inj 500 Units 500 Units (5 mL), IV Lock, PRN Other, IV Flush, Starting on Sat11/21/23 at 0916, Until Ofe 11/21/23 at 1806, For 24 hours, Do not flush if lock, PICC, or central line not in place; IV infusing or unable to flush. Given 11/21/2023 1:37 PM EST 500 Units NSS infusion Intravenous, at 50 mL/hr, PRN, Starting on Ofe 11/21/23 at 1030, Until Ofe 11/21/23 at 1806, Maintenance line Start Infusion 11/21/2023 9:30 AM EST 50 mL/hr ondansetron (Zofran) tab 8 mg 8 mg, Oral, ONCE, On Ofe 11/21/23 at 1000, For 1 dose Given 11/21/2023 9:30 AM EST 8 mg PACLitaxel (Taxol) 387 mg in NSS 500 mL infusion 387 mg (rounded from 386.75 mg = 175 mg/m2 2.21 m2 Treatment Plan BSA from Recorded weight), IV Piggyback, at 166.67 mL/hr Administer over 180 Minutes, Administer through 0.22 micron low protein binding filter!, ONCE, 1 dose, On Ofe 11/21/23 at 1130 Start Infusion 11/21/2023 10:29 AM EST 387 mg 166.67 mL/hr Pembrolizumab (Keytruda) 200 mg in NSS 100 mL infusion 200 mg, IV Piggyback, ONCE, 1 dose, On Ofe 11/21/23 at 1100, Administer over 30 Minutes, Infuse through 0.2 micron filter. Start Infusion 11/21/2023 9:48 AM EST 200 mg 200 mL/hr sodium chloride 0.9 % flush central line 10 mL 10 mL, IV Push, PRN Other, IV Flush, Starting on Ofe 11/21/23 at 0916, Until Ofe 11/21/23 at 1806, For 24 hours, Do not flush if lock, PICC, or central line not in place; IV infusing or unable to flush. Given 11/21/2023 1:37 PM EST 10 mL Given 11/21/2023 9:30 AM EST 10 mL documented in this encounter Additional Health Concerns Infection Onset Date Last Indicated Resolved Time COVID-19 (confirmed) 03/19/2022 03/19/2022 024 9:31 PM EST documented as of this encounter Advance Directives [...] the patient have Health Care Power of Store Stock Help? No Full Code 05/23/2021 12:21 PM 05/24/2021 9:38 PM This order reflects the patients wishes and were consensually agreed upon. Question Answer Comments Discussion of Advance Directives occurred with: Patient Care Teams Sales Promotion Manager Relationship Specialty Start Date End Date Matthew Herrmann PA-C [address] [place] [id number] PCP - General Physician Oracle Ebs Developer 03/22/21 documented as of this encounter
--- OUTSIDE RECORDS SUMMARY | 2024-04-11 14:49 | External Medical Summary | Summary of Care ---
Author Name Unknown Organization [facility] Address [address] [place] [address] Phone [phone] Care Team Providers Care Wheel Loader Operator Name Role Phone Matthew Herrmann PA-C Primary Care Provider [phone] Reason for Visit * Reason Onset Date Comments Remote Patient Monitoring Alert 01/03/2024 Encounter Details Date Type Department Care Team (Late st Contact Info) Description 01/03/2024 Telephone Care Coordination and Integration [address] [place], [place] [phone] Eryn Hancock RN [address] [place] [address] Remote Patient Monitoring Alert Allergies Active Allergy Reactions Criticality Noted Date [...] mRNA, LNP-s, No Pre serve, 2-Dose Series (Pocket Change Card) 09/23/2021 Pneumococcal Conjugate Vacci ne, 20-valent ([id number]) 12/12/2023(Deferred: Patient Refused - Renee Duarte MD) [...] encounter Miscellaneous Notes * Telephone Encounter - Eryn Hancock RN - 01/03/2024 9:07 AM EST Please discharge the patient from [facility]. Device(s) to be discontinued: 20/05 WEARABLE due to COMPLETION OF THERAPY. Thank you. documented in this encounter Plan of Treatment Upcoming Encounters Date Type Department Care Team (Latest Contact Info) Description 01/03/2024 9:30 AM EST Office Visit Hematology Oncology [facility] [address] [place] [address] Velia Segundo PA-C [address] [place] [address] Hematology/Oncolog y Outpatient Clinic note 01/03/2024 10:30 AM EST Hem/Onc Treatment Hematology Oncology [facility], [address] [address] [place], Chair 4 Hem/Onc [address] [place] [address] Arrived 01/03/2024 10:30 AM EST Scheduled Telephone Care Coordination and Integration [facility] [place] [address] Mere Peterson [facility] Wastewater Treatment Supervisor [facility] [place] [address] 01/23/2024 7:45 AM EDT Nurse Only Hematology Oncology [address] [address] [place], Nurse Lab Hem/Onc [address] [place] [address] 01/23/2024 8:30 AM EDT Office Visit Hematology Oncology [address] [address] Nicole Carrillo PA-C [facility] [place] [address] 01/23/2024 9:30 AM EDT Hem/Onc Treatment Hematology Oncology [place] [address] [place] [address] [place], Chair 4 Hem/Onc [address] [place] [address] 02/03/2024 12:40 PM EDT Laboratory [facility], [address] [phone] [place], Lab Lock [address] [place] [address] 02/04/2024 6:15 AM EDT Anticoagulation Pharmacy Call Center WB [address] [place] [address] [facility], [facility] 58 60 [facility] [place] [address] 02/12/2024 8:00 AM EDT PulmDiagnostic Pulmonary Function Lab, [facility] [address] [facility] [place] [address] [place], Pft 132 [facility] [place] [address] 02/12/2024 10:20 AM EDT Office Visit Pulmonary Medicine, [facility] [address] [facility] [place] [address] Wyatt Gallegos MD [address] [facility] [place] [phone] 02/13/2024 9:45 AM EDT Nurse Only Hematology Oncology [address] [address] [place], Nurse Lab Hem/Onc [address] [place] [id number] 02/13/2024 10:30 AM EDT Office Visit Hematology Oncology [address] [phone] Kerri Foote MD [facility] [place] [address] 02/13/2024 11:30 AM EDT Hem/Onc Treatment Hematology Oncology [facility], [address] [phone] [place], Chair 4 Hem/Onc [facility] [place], [place] [phone] 02/25/2024 9:30 AM EDT Appointment Radiology, [address] [address] 05/06/2024 9:20 AM EDT Office Visit Neurology [address] [place] [address] [facility] [place] [address] Kathy Pryor PA-C [address] [facility] [place] [address] Health Maintenance Due Date Last Done Comments [...] this encounter Medical Devices Implanted Type Area Boilermaker Helper Device Identifier Shelf Expiration Date Model / Serial / Lot Power Port 8fr Sngl Lumen Plas - [id number] Implanted:Qty: 1 on 04/24/2021 at [facility] BARD : PERIPHERAL VASCULAR [id number] 02/24/2022 [id number] / / [id number] Port Implant W/8f Poly Cath - [id number] Implanted:Qty: 1 on 10/15/2023 at [facility] CR BARD : PERIPHERAL VASCULAR [id number] 03/27/2025 [id number] / / [id number] documented as of this encounter Advance Directives [...] the patient have Health Care Power of Academic Program Specialist? No Full Code 05/23/2021 12:21 PM 05/24/2021 9:38 PM This order reflects the patients wishes and were consensually agreed upon. Question Answer Comments Discussion of Advance Directives occurred with: Patient Care Teams Wheel Loader Operator Relationship Specialty Start Date End Date Matthew Herrmann PA-C [address] [place], [place] [id number] [phone] PCP - General Physician Wastewater Treatment Supervisor 03/22/21 documented as of this encounter
--- OUTSIDE RECORDS SUMMARY | 2024-04-11 14:49 | External Medical Summary | Summary of Care ---
Author Name Unknown Organization [facility] Address [address] [place] [address] Phone [phone] Care Team Providers Care Pot Filler Name Role Phone Matthew Herrmann PA-C Primary Care Provider [phone] Reason for Visit * Evaluate & Treat - Unlimited Visits (Within 10 days (routine)) - Authorized Specialty Diagnoses / Procedures Referred By Yuli seay Referred To Contact Hematology/Oncology / Hematology Oncology Diagnoses Malignant neoplasm of unspecified part of unspecified bronchus or lung (HCC) Yonathan Tomas CRNP [address] [place] [address] Referral ID Status Reason Start Date Expiration Date Visits Requested Visits Authorized [id number] Authorized Specialty Services Required 11/05/2023 11/04/2024 [id number] Encounter Details Date Type Department Care Team (Latest Contact Info) Description 11/21/2023 9:00 AM EST Hem/Onc Treatment Hematology Oncology [facility], [place] [address] [place] [address] [place], [facility] 4 Hem/Onc [facility] [address] [place], [place] [phone] Chemotherapy adverse reaction, initial encounter*; Chemotherapy induced [...] mRNA, LNP-s, No Pre serve, 2-Dose Series (Field Dailies) 09/23/2021 documented as of this encounter Social [...] 8:00 AM EST Office Visit Pulmonary Medicine, [facility] 132 [facility] [place] [address] Wyatt [facility]os [facility] [address] [facility] [address] 01/03/2024 8:45 AM EST Nurse Only Hematology Oncology [address] [address] [place], Nurse Lab Hem/Onc [address] [place] [address] 01/03/2024 9:30 AM EST Office Visit Hematology Oncology [address] [place] [address] Velia Segundo PA-C [address] [place] [address] 01/03/2024 10:30 AM EST Hem/Onc Treatment Hematology Oncology [facility], [place] [address] [place] [address] [place], Chair 4 Hem/Onc [address] [place] [address] 01/23/2024 7:45 AM EDT Nurse Only Hematology Oncology [facility], [place] [address] [place] [address] [place], Nurse Lab Hem/Onc [facility] [place] [address] 01/23/2024 8:30 AM EDT Office Visit Hematology Oncology [facility], [place] [address] [place] [address] Nicole Carrillo PA-C [address] [place] [address] 01/23/2024 9:30 AM EDT Hem/Onc Treatment Hematology Oncology [facility], [place] [address] [place] [address] [place], Chair 4 Hem/Onc [address] [place] [address] 01/24/2024 6:15 AM EDT Anticoagulation Pharmacy Call Center WB 58-60 [facility] [place] [address] [facility] 58 60 [facility] [place] [address] 02/13/2024 9:45 AM EDT Nurse Only Hematology Oncology [place] [address] [place] [address] [place], Nurse Lab Hem/Onc [address] [place] [address] 02/13/2024 10:30 AM EDT Office Visit Hematology Oncology [facility], [address] [phone] Kerri Foote MD [facility] [address] [place], [place] [phone] 02/13/2024 11:30 AM EDT Hem/Onc Treatment Hematology Oncology [facility], [address] [phone] [place], Chair 4 Hem/Onc [address] [place] [phone] 02/25/2024 9:30 AM EDT Appointment Radiology, [address] [address] 05/06/2024 9:20 AM EDT Office Visit Neurology [facility] [place] 200 [facility] [address] Kathy Pryor PA-C 200 [facility] [place] [phone] Health Maintenance Due Date Last Done Comments [...] this encounter Medical Devices Implanted Type Area Regulatory Scientist Device Identifier Shelf Expiration Date Model / Serial / Lot Power Port 8fr Sngl Lumen Plas - [id number] Implanted:Qty: 1 on 04/24/2021 at [facility] CR BARD : PERIPHERAL VASCULAR [id number] 02/24/2022 [id number] / / [id number] Port Implant W/8f Poly Cath - [id number] Implanted:Qty: 1 on 10/15/2023 at [facility] CR BARD : PERIPHERAL VASCULAR [id number] 03/27/2025 [id number] / / [id number] documented as of this encounter Results * [...] Foote MD LAB BLOOD ORDERAB LES LABORATORY [facility] [address] [place] [address] * TSH WITH FREE T4 IF INDICATED (12/19/2023 12:15 PM EST) TSH 2.10 0.27 - 4.20 uIU/mL 12/19/2023 8:29 PM EST LABORATORY GM Blood Venous blood specimen / Unknown Venipuncture / Unknown 12/19/2023 12:15 PM EST 12/19/2023 12:15 PM EST Kerri Foote MD LAB BLOOD ORDERAB LES LABORATORY [facility] [address] [place] [address] documented in this encounter Visit Diagnoses Diagnosis [...] the patient have Health Care Power of Translator? No Full Code 05/23/2021 12:21 PM 05/24/2021 9:38 PM This order reflects the patients wishes and were consensually agreed upon. Question Answer Comments Discussion of Advance Directives occurred with: Patient Care Teams Pot Filler Relationship Specialty Start Date End Date Matthew Herrmann PA-C [address] [place] [id number] PCP - General Physician Healthcare Corporate Account Director 03/22/21 documented as of this encounter
--- OUTSIDE RECORDS SUMMARY | 2024-04-11 14:49 | External Medical Summary | Summary of Care ---
Author Name Unknown Organization [facility] Address [address] [place] [address] Phone [phone] Care Team Providers Care Barrel Ribs Solderer Name Role Phone Matthew Herrmann PA-C Primary Care Provider [phone] Reason for Visit * Reason Comments NEW PATIENT Here hospital discha rge. Encounter Details Date Type Department Care Team (Late st Contact Info) Description 01/02/2024 8:00 AM EST Office Visit Pulmonary Medicine, [facility] [address] [facility] [place] [address] Wyatt Gallegos MD [address] [facility] [place] [id number] Primary malignant neoplasm of left lower lobe [...] as of this encounter (statuses as of 01/02/2024) Medications Medication Sig Dispensed Refills Start Date [...] as of this encounter (statuses as of 01/02/2024) Active Problems Problem Noted Date Diagnosed Date [...] as of this encounter (statuses as of 01/02/2024) Resolved Problems Problem Noted Date Diagnosed Date Resolved Date MSSA bacteremia 08/01/2021 08/07/2021 Sepsis 08/01/2021 08/07/2021 COPD, group B, by GOLD 2017 classification 05/08/2021 06/21/2021 Overview: Per COPD GOLD Classification Obstructive lung disease 04/10/2021 Overview: Per COPD GOLD Classification documented as of this encounter (statuses as of 01/02/2024) Immunizations Name Administration Dates Next Due COVID-19 mRNA, LNP-s, No Pre serve, 2-Dose Series (IntellectSpace) 09/23/2021 Pneumococcal Conjugate Vacci ne, 20-valent ([id number]) 12/12/2023(Deferred: Patient Refused - Renee Duarte MD) [...] Sign Reading Time Taken Comments Blood Pressure 122/70 01/02/2024 8:06 AM EST Pulse 80 01/02/2024 8:06 AM EST Temperature 36.4 C (97.6 F) 01/02/2024 8:06 AM ES T Respiratory Rate 18 01/02/2024 8:06 AM EST Oxygen Saturation 98% 01/02/2024 8:07 AM EST ra-amb Inhaled Oxygen Concentration - - Weight 102.1 kg (225 lb) 01/02/2024 8:06 AM EST Height 180.3 cm (5' 11") 01/02/2024 8:06 AM EST Body Mass Index 31.38 01/02/2024 8:06 AM EST documented in this encounter Functional [...] Progress Notes * Wyatt Gallegos MD - 01/02/2024 8:06 AM EST 01/02/2024 Pulmonary Medicine, [facility] [address] [place] [id number] John Brothers 1970 male 53 year old Attending Physician Documentation: 53-year-old male, 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 Patient describes fatigue, malaise, tiredness, decreased exercise tolerance, improved symptoms status following antibiotic therapy and bronchoscopy during recent hospitalization. Denies high grade fever, hemoptysis, leg edema. Compliant with nocturnal oxygen. Current bronchodilator regimen is ProAir only. Physical examination significant for class 3 throat, scattered coarse wheezing, no dullness, regular cardiac rhythm, no evidence of volume overload and nonlateralizing Neuro examination. CT scan chest 2022 showed residual parenchymal infiltrates in left upper lobe, left lower lobe and right apex. No pleural effusions noted. Right-sided port status noted. Evidence of metastatic disease noted in multiple skeletal sites. Disease burden is reported stable per Oncology evaluation. We will proceed with baseline ventilatory assessment including PFT, 6 minute walk test. Bronchodilator therapy will be optimized to include Breo along with continue ProAir. Importance of maintaining physical activity status and monitoring for opportunistic infections was discussed. Pulmonary clinic follow-up recommended in 4 weeks. Patient and spouse were advised to contact the office with any change in respiratory symptoms status. Data review: XR CHEST 2 VIEWS-12/04/2023 7:23 pm HISTORY fever, concern for pneumonitis COMPARISON Chest radiograph and CT 12/02/2023. TECHNIQUE Frontal and lateral views of the chest are examined. FINDINGS Right chest Port-A-Cath tip projects over [...] and 4L diagnosing NSCLC, Adenocarcinoma - [place] 04/06/2021 CTA thorax, no definitive PE. Interval [...] with exercise 7. Edema. Improved. Continue furosemide Follow-up: Return in about 4 weeks (around 01/30/2024). 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 HPI: Nursing Notes: Iza Araiza LPN 01/02/24 0812 Signed Chief Complaint Patient presents with NEW PATIENT Here hospital discharge. Interm History/Respiratory Symptoms Cough: yes am more, clear phelgm Hemoptysis: no Sinus Symptoms: no Hospitalizations: yes 12-05-23 ED Trips: yes -12/04 Triggers: dust,exhaust fumes Nocturnal: yes CPAP/BiPAP/O2: yes 02 2L for sleeping. Flu Vaccine: 2022 Pneumovax: none Prevnar: none COVID 19: x1 Travel Screening Question 01/02/2024 7:55 AM EST - Filed by Patient Do you have any of the following new or worsening symptoms? None of these Have you recently been in contact with someone who was sick? No / Unsure Myc Visit Accident Related Question Question 01/02/2024 7:55 AM EST - Filed by Patient Is this visit related to an accident? (i.e work, motor vehicle) No Mmrc Cat Question 01/02/2024 8:09 AM EST - Filed by Iza Araiza LPN When do you become breathless? (3) I stop for breath after walking about 100 yards or after a few minutes on level ground How frequently do you cough? (2) Do you have phlegm in your chest? (3) Is your chest tight? (0) - My chest does not feel tight at all How breathless do you become when walking up a hill or steps? (4) How limited are you doing activities at home? (4) How confident are you leaving home with your lung condition? (4) How soundly do you sleep? (4) How much energy do you have? (2) Total MMRC Score (range: 0 - 4) 3 Total CAT Score (range: 0 - 40) 23 Objective Filed Vitals: 01/02/24 0806 01/02/24 0807 BP: 122/70 Pulse: 80 Resp: 18 Temp: 36.4 C (97.6 F) TempSrc: Tympanic SpO2: 98% 98% Weight: 102.1 kg (225 lb) Height: 1.803 m (5' 11") Exam: Const: No signs of acute distress [...] were discussed with the patient. HOME MEDICATIONS: Fluticasone Furoate-Vilanterol 100-25 MCG/ACT Inhalation Aerosol Powder Breath Activated (BREO ellipta) ProAir HFA 108 (90 Base) MCG/ACT Inhalation Aerosol Solution Enoxaparin Sodium 80 MG/0.8ML Injection Solution Prefilled Syringe (Lovenox) dexAMETHasone 4 MG Oral Tablet (Decadron) OLANZapine 5 MG Oral Tablet (zyPREXA) Prochlorperazine Maleate 10 MG Oral Tablet (Compazine) Topiramate 25 MG Oral Tablet (Topamax) Folic Acid 1 MG Oral Tablet Atorvastatin Calcium 40 MG Oral Tablet (Lipitor) amLODIPine Besylate 2.5 MG Oral Tablet (Norvasc) Culturelle Probiotics Oral Tablet Chewable Nitroglycerin 0.4 MG Sublingual Tablet Sublingual (Nitrostat) Ondansetron HCl 8 MG Oral Tablet Vitamin E 1000 UNIT Oral Capsule Furosemide 20 MG Oral Tablet (Lasix) Albuterol Sulfate (Proventil) (2.5 MG/3ML) 0.083% inhalation [...] performed by Rae Ramirez MD at ENDOSCOPY [facility] COLONOSCOPY, DIAGNOSTIC (RECTUM) N/A 08/13/2019 COLONOSCOPY FLEXIBLE PROXIMAL DIAGNOSTIC performed by Pavan Villaseñor MD at ENDOSCOPY [facility] IR VENOUS ACCESS MEDIPORT 04/24/2021 IR VENOUS ACCESS MEDIPORT 08/01/2021 IR VENOUS ACCESS MEDIPORT 10/15/2023 VASECTOMY Social History Socioeconomic History Marital status: Occupational History 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, [employer] Tobacco Use Smoking status: Never Smokeless tobacco: [...] Father Hypertension Father Heart attack Father Fatal [place] age 74 No Known Problems Mother No Known Problems Sister No Known Problems Brother Lymphoma Niece Review of patient's allergies indicates: Allergen Reactions Carboplatin Dyspnea, chest pain, hypoxia, sore throat, edema throat, flushing, mild hypotension Isosorbide Nitrate Other (Please comment) Headache documented in this encounter Nursing Notes * Iza Araiza LPN - 01/02/2024 8:09 AM EST Chief Complaint Patient presents with NEW PATIENT Here hospital discharge. Interm History/Respiratory Symptoms Cough: yes am more, clear phelgm Hemoptysis: no Sinus Symptoms: no Hospitalizations: yes 12-05-23 ED Trips: yes -12/04 Triggers: dust,exhaust fumes Nocturnal: yes CPAP/BiPAP/O2: yes 02 2L for sleeping. Flu Vaccine: 2022 Pneumovax: none Prevnar: none COVID 19: x1 Travel Screening Question 01/02/2024 7:55 AM EST - Filed by Patient Do you have any of the following new or worsening symptoms? None of these Have you recently been in contact with someone who was sick? No / Unsure Myc Visit Accident Related Question Question 01/02/2024 7:55 AM EST - Filed by Patient Is this visit related to an accident? (i.e work, motor vehicle) No Mmrc Cat Question 01/02/2024 8:09 AM EST - Filed by Iza Araiza LPN When do you become breathless? (3) I stop for breath after walking about 100 yards or after a few minutes on level ground How frequently do you cough? (2) Do you have phlegm in your chest? (3) Is your chest tight? (0) - My chest does not feel tight at all How breathless do you become when walking up a hill or steps? (4) How limited are you doing activities at home? (4) How confident are you leaving home with your lung condition? (4) How soundly do you sleep? (4) How much energy do you have? (2) Total MMRC Score (range: 0 - 4) 3 Total CAT Score (range: 0 - 40) 23 documented in this encounter Plan of Treatment Upcoming Encounters Date Type Department Care Team (Late st Contact Info) Description 01/03/2024 8:45 AM EST Nurse Only Hematology Oncology [address] [address] [place], Nurse Lab Hem/Onc [address] [place] [phone] 01/03/2024 9:30 AM EST Office Visit Hematology Oncology [address] [phone] Velia Segundo PA-C [address] [place] [address] 01/03/2024 10:30 AM EST Hem/Onc Treatment Hematology Oncology [address] [address] [place], Chair 4 Hem/Onc [address] [place] [address] 01/03/2024 10:30 AM EST Scheduled Telephone Care Coordination and Integration [address] [place] [phone] Mere Peterson, Community Health Fitness Attendant [address] [place] [address] 01/23/2024 7:45 AM EDT Nurse Only Hematology Oncology [facility], [place] [address] [place] [address] [place], Nurse Lab Hem/Onc [address] [place] [address] 01/23/2024 8:30 AM EDT Office Visit Hematology Oncology [facility], [place] [address] [place] [address] Nicole Carrillo PA-C [address] [place] [address] 01/23/2024 9:30 AM EDT Hem/Onc Treatment Hematology Oncology [facility], [place] [address] [place] [address] [place], Chair 4 Hem/Onc [address] [place] [address] 02/03/2024 12:40 PM EDT Laboratory [facility] [phone] [address] 02/04/2024 6:15 AM EDT Anticoagulation Pharmacy Call Center [address] [facility] [place] [address] [facility] [address] [facility] [place] [address] 02/12/2024 8:00 AM EDT PulmDiagnostic Pulmonary Function Lab, [facility] [address] [facility] [place] [address] [place], [address] [place] [address] 02/12/2024 10:20 AM EDT Office Visit Pulmonary Medicine, [facility] [address] [facility] [place] [address] Wyatt Gallegos MD [address] [facility] [address] 02/13/2024 9:45 AM EDT Nurse Only Hematology Oncology [facility], [address] [address] [place], Nurse Lab Hem/Onc [address] [place] [address] [phone] 02/13/2024 10:30 AM EDT Office Visit Hematology Oncology [address] [phone] Kerri Foote MD [address] [place] [address] 02/13/2024 11:30 AM EDT Hem/Onc Treatment Hematology Oncology [facility], [address] [address] [place], Chair 4 Hem/Onc [address] [place] [address] [phone] 02/25/2024 9:30 AM EDT Appointment Radiology, [address] [phone] 05/06/2024 9:20 AM EDT Office Visit Neurology [address] [place] [address] [facility] [place] [address] Kathy Pryor PA-C [address] [facility] [place] [address] Scheduled Orders Name Type Priority Associated Diagnoses Orde r Schedule DIFFUSION CAPACITY (DLCO) Procedures Routine Primary malignant neoplasm of left lower lobe of lung (HCC) 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) Malignant neoplasm of lower lobe, left bronchus or lung (HCC) Acute deep vein thrombosis (DVT) of proximal vein of right lower extremity (HCC) Expected: 01/09/2024, Expires: 02/01/2025 LUNG VOLUMES (PLETHYSMOGRAPHY) Procedures Routine Primary malignant neoplasm of left lower lobe of lung (HCC) 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) Malignant neoplasm of lower lobe, left bronchus or lung (HCC) Acute deep vein thrombosis (DVT) of proximal vein of right lower extremity (HCC) Expected: 01/09/2024, Expires: 02/01/2025 RESPIRATORY MUSCLE PRESSURES (BUGLE PRESSURES) Procedures Routine Primary malignant neoplasm of left lower lobe of lung (HCC) 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) Malignant neoplasm of lower lobe, left bronchus or lung (HCC) Acute deep vein thrombosis (DVT) of proximal vein of right lower extremity (HCC) Ordered: 01/02/2024 SPIROMETRY B/A BRONCHODILATOR Procedures Routine Primary malignant neoplasm of left lower lobe of lung (HCC) 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) Malignant neoplasm of lower lobe, left bronchus or lung (HCC) Acute deep vein thrombosis (DVT) of proximal vein of right lower extremity (HCC) Expected: 01/09/2024, Expires: 02/01/2025 PULMONARY STRESS TESTING Procedures Routine Primary malignant neoplasm of left lower lobe of lung (HCC) 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) Malignant neoplasm of lower lobe, left bronchus or lung (HCC) Acute deep vein thrombosis (DVT) of proximal vein of right lower extremity (HCC) Expected: 01/03/2024, Expires: 02/01/2025 Health Maintenance Due Date Last Done Comments [...] this encounter Medical Devices Implanted Type Area Heater Operator Device Identifier Shelf Expiration Date Model / Serial / Lot Power Port 8fr Sngl Lumen Plas - [id number] Implanted:Qty: 1 on 04/24/2021 at [facility] [employer] : PERIPHERAL VASCULAR [id number] 02/24/2022 [id number] / / [id number] Port Implant W/8f Poly Cath - [id number] Implanted:Qty: 1 on 10/15/2023 at [facility] [employer] : PERIPHERAL VASCULAR [id number] 03/27/2025 [id number] / / [id number] documented as of this encounter Visit Diagnoses [...] the patient have Health Care Power of Senior Catering Sales Manager? No Full Code 05/23/2021 12:21 PM 05/24/2021 9:38 PM This order reflects the patients wishes and were consensually agreed upon. Question Answer Comments Discussion of Advance Directives occurred with: Patient Care Teams Barrel Ribs Solderer Relationship Specialty Start Date End Date Matthew Herrmann PA-C [address] [place] [phone] PCP - General Physician Fitness Attendant 03/22/21 documented as of this encounter
--- OUTSIDE RECORDS SUMMARY | 2024-04-11 14:49 | External Medical Summary ---
Author Name Unknown Address Unknown Organization K01:[facility] [place] [address] [facility] [place] [place] [address] Laboratory Report Ordering Provider Test Date Status JOSE STEELE 01/03/2024 08:52:52 Final Observation Date Value Abnormality Reference (Units ) Status BUN 01/03/2024 08:52:52 10 6-20 (mg/dL) Final Creatinine 01/03/2024 08:52:52 0.9 0.6-1.2 (mg/dL) Final Glomerular filtration rate/1.73 sq M.predicted [Volume Rate/Area] in Serum, Plasma or Blood by Creatinine-based formula (CKD-EPI) 01/03/2024 08:52:52 >90 >=60 (mL/min) Final eGFR is calculated based on the CKD-EPI 2020 equation SODIUM 01/03/2024 08:52:52 142 135-146 (m mol/L) Final Potassium 01/03/2024 08:52:52 3.6 3.5-5.1 (m mol/L) Final Cl 01/03/2024 08:52:52 106 98-107 (mm ol/L) Final CO2 01/03/2024 08:52:52 25 22-32 (mmo l/L) Final Anion gap 01/03/2024 08:52:52 11 7-15 (mmol /L) Final Glucose 01/03/2024 08:52:52 121 Above high normal 70 -120 (mg/dL) Final Albumin 01/03/2024 08:52:52 4.3 3.8-5.0 (g /dL) Final AST (Aspartate aminotransferase) 01/03/2024 08:52:52 43 10-50 (U/L) Fin al Alk Phos 01/03/2024 08:52:52 88 35-130 (U/ L) Final Bilirubin, Total 01/03/2024 08:52:52 0.7 <=1 .2 (mg/dL) Final Calcium 01/03/2024 08:52:52 9.4 8.4-10.2 ( mg/dL) Final Protein 01/03/2024 08:52:52 7.0 6.0-8.3 (g /dL) Final ALT (Alanine aminotransferase) 01/03/2024 08:52:52 51 Above high normal 10-50 (U/L) Final Performing Location [facility] [place] [address] [facility] [address]
--- OUTSIDE RECORDS SUMMARY | 2024-04-11 14:49 | External Medical Summary ---
Author Name Unknown Address Unknown Organization K01:[place] [address] [facility] [address] [address] Laboratory Report Ordering Provider Test Date Status JOSE STEELE 01/03/2024 08:52:52 Final Observation Date Value Abnormality Reference (Units ) Status SYNC LEUKOCYTES IN BLOOD BY AUTOMATED COUNT 01/03/2024 08:52:52 5.80 4.00-10.80 (K/uL) Final Segs 01/03/2024 08:52:52 58.6 40.0-75.0 (%) Final Lymphs % 01/03/2024 08:52:52 25.5 18.0-42.0 (%) Final Monos 01/03/2024 08:52:52 9.3 1.0-11.0 (%) Final Eosinophils 01/03/2024 08:52:52 5.0 0.0-6.0 (%) Final Basos 01/03/2024 08:52:52 1.4 0.0-2.0 (%) Final Immature Granulocyte, Percent 01/03/2024 08:52:52 0.2 0.0-2.0 (%) Final Absolute Segs 01/03/2024 08:52:52 3.40 1.80-7.70 (K/uL) Final Lymphs, absolute 01/03/2024 08:52:52 1.48 1.00-4.80 (K/ul) Final Monos, Abs 01/03/2024 08:52:52 0.54 0.00-1.10 (K/uL) Final Eos, Abs 01/03/2024 08:52:52 0.29 0.00-0.70 (K/uL) Final Basos, Abs 01/03/2024 08:52:52 0.08 0.00-0.20 (K/uL) Final Immature Granulocytes, Number 01/03/2024 08:52:52 0.01 0.00-0.20 (K/uL) Final Performing Location [facility] - [address] [place] [address]
--- OUTSIDE RECORDS SUMMARY | 2024-04-11 14:49 | External Medical Summary ---
Author Name Unknown Address Unknown Organization K01:[facility] - [address] [facility] [address] Laboratory Report Ordering Provider Test Date Status JOSE STEELE 01/03/2024 08:52:52 Final Observation Date Value Abnormality Reference (Units ) Status WBC, Total 01/03/2024 08:52:52 5.80 4.00-10.80 (K/uL) Final RBC 01/03/2024 08:52:52 4.61 4.50-5.25 (M/uL) Final Hemoglobin 01/03/2024 08:52:52 14.3 14.0-16.8 (g/dL) Final HCT 01/03/2024 08:52:52 43.1 40.0-48.4 (%) Final MCV 01/03/2024 08:52:52 93.5 82.0-99.5 (fL) Final MCH 01/03/2024 08:52:52 31.0 27.0-34.0 (pg) Final MCHC 01/03/2024 08:52:52 33.2 32.0-36.0 (g/dL) Final RDW 01/03/2024 08:52:52 15.6 11.5-15.5 (%) Final Platelets 01/03/2024 08:52:52 279 140-400 (K/uL) Final MPV 01/03/2024 08:52:52 10.2 6.6-11.1 (fL) Final Nucleated erythrocytes/100 leukocytes [Ratio] in Blood by Automated count 01/03/2024 08:52:52 0 <=0 (/100 WBCs) Final Performing Location [facility] - [address] [facility] [address]
--- OUTSIDE RECORDS SUMMARY | 2024-04-11 14:49 | External Medical Summary | Summary of Care ---
Author Name Unknown Organization [facility] Address [address] [place] [address] Phone [phone] Care Team Providers Care Video Surveillance Technician Name Role Phone Matthew Herrmann PA-C Primary Care Provider +1 -[phone] Reason for Visit * Reason Comments Outpatient Testing Encounter Details Date Type Department Care Team (Late st Contact Info) Description 12/30/2023 12:00 PM [facility] Laboratory Laboratory [facility] Center[address] [phone] [facility] [address] [place] [phone] History of pulmonary embolism; Acute deep vein [...] (Pfizer) 09/23/2021 Pneumococcal Conjugate Vacci ne, 20-valent ([id number]) 12/12/2023(Deferred: Patient Refused - Renee Duarte MD) [...] 8:00 AM EST Office Visit Pulmonary Medicine, [facility] 132 [facility] [place] [address] Wyatt Gallegos MD [address] [place] [phone] 01/03/2024 8:45 AM EST Nurse Only Hematology Oncology [address] [address] [place], Nurse Lab Hem/Onc [address] [place] [address] 01/03/2024 9:30 AM EST Office Visit Hematology Oncology [place] [address] [place] [phone] Velia Segundo PA-C [address] [place], [place] [phone] 01/03/2024 10:30 AM EST Hem/Onc Treatment Hematology Oncology [place] [address] [place] [address] [place], Chair 4 Hem/Onc [address] [place] [phone] 01/03/2024 10:30 AM EST Scheduled Telephone Care Coordination and Integration [facility] [place] [address] Mere Peterson, Community Health Sales Service Assistant [facility] [place] [address] 01/23/2024 7:45 AM EDT Nurse Only Hematology Oncology [address] [address] [place] Nurse Lab Hem/Onc [address] [place] [address] 01/23/2024 8:30 AM EDT Office Visit Hematology Oncology [facility], [place] [address] [place] [phone] Nicole Carrillo PA-C [address] [place] [address] 01/23/2024 9:30 AM EDT Hem/Onc Treatment Hematology Oncology [facility], [place] [address] [place] [address] [place], Chair 4 Hem/Onc [facility] [place] [address] 01/24/2024 6:15 AM EDT Anticoagulation Pharmacy Call Center [address] [place] [address] [facility], [facility] 58 [address] [place] [address] 02/13/2024 9:45 AM EDT Nurse Only Hematology Oncology [facility], [place] [address] [place] [address] [place], Nurse Lab Hem/Onc [facility] [place] [address] 02/13/2024 10:30 AM EDT Office Visit Hematology Oncology [facility], [place] [address] [place] [phone] Kerri Foote MD [address] [place] [address] 02/13/2024 11:30 AM EDT Hem/Onc Treatment Hematology Oncology [facility], [place] [address] [place] [address] [place], Chair 4 Hem/Onc [facility] [place] [address] 02/25/2024 9:30 AM EDT Appointment Radiology, [place] 100 [facility] [place] [address] 05/06/2024 9:20 AM EDT Office Visit Neurology [facility] 200 [facility] [place] [address] Kathy Pryor PA-C [address] [place] [address] Pending Results Name Type Priority Associated Diagnoses Date /Time HEPARIN, LOW MOLECULAR WEIGHT Lab Routine History of pulmonary embolism Acute deep vein thrombosis (DVT) of proximal vein of right lower extremity (HCC) 12/30/2023 12:04 PM EST Health Maintenance Due Date Last Done [...] this encounter Medical Devices Implanted Type Area Counselor Aide Device Identifier Shelf Expiration Date Model / Serial / Lot Power Port 8fr Sngl Lumen Plas - [id number] Implanted:Qty: 1 on 04/24/2021 at [facility] CR BARD : PERIPHERAL VASCULAR [id number] 02/24/2022 [id number] / / [id number] Port Implant W/8f Poly Cath - [id number] Implanted:Qty: 1 on 10/15/2023 at [facility] CR BARD : PERIPHERAL VASCULAR [id number] 03/27/2025 [id number] / / [id number] documented as of this encounter Visit Diagnoses [...] patient have Health Care Power of Air Bag Buffer? No Full Code 05/23/2021 12:21 PM 05/24/2021 9:38 PM This order reflects the patients wishes and were consensually agreed upon. Question Answer Comments Discussion of Advance Directives occurred with: Patient Care Teams Video Surveillance Technician Relationship Specialty Start Date End Date Matthew Herrmann PA-C [address] [place] [address] PCP - General Physician Sales Service Assistant 03/22/21 documented as of this encounter
--- OUTSIDE RECORDS SUMMARY | 2024-04-11 14:50 | External Medical Summary ---
Author Name Unknown Address Unknown Organization K01:LABORATORY [facility] - [address] [place] [address] Laboratory Report Ordering Provider Test Date Status JOSE STEELE 12/19/2023 12:15:55 Final Observation Date Value Abnormality Reference (Units ) Status TSH 12/19/2023 12:15:55 2.10 0.27-4.20 (uIU/mL) Final Performing Location LABORATORY [facility] - [address] [place] [address]
--- OUTSIDE RECORDS SUMMARY | 2024-04-11 14:50 | External Medical Summary | Summary of Care ---
Author Name Unknown Organization [facility] Address [address] [place] [address] Phone [phone] Care Team Providers Care Cast Iron Dipper Name Role Phone Matthew Herrmann PA-C Primary Care Provider +1 -[phone] Reason for Visit * Reason Comments Outpatient Testing Encounter Details Date Type Department Care Team (Late st Contact Info) Description 12/19/2023 12:40 PM [email or web address] Laboratory Laboratory [facility] Service Center[address] [phone] [facility] [address] [address] History of pulmonary embolism; Acute deep vein thrombosis (DVT) of proximal vein of right lower extremity (HCC); Chemotherapy adverse reaction, initial encounter; Chemotherapy induced [...] as of this encounter (statuses as of 12/19/2023) Medications Medication Sig Dispensed Refills Start Date [...] in the morning. 30 Tablet 0 11/21/2023 Active documented as of this encounter (statuses as of 12/19/2023) Active Problems Problem Noted Date Diagnosed Date [...] as of this encounter (statuses as of 12/19/2023) Resolved Problems Problem Noted Date Diagnosed Date Resolved Date MSSA bacteremia 08/01/2021 08/07/2021 Sepsis 08/01/2021 08/07/2021 COPD, group B, by GOLD 2017 classification 05/08/2021 06/21/2021 Overview: Per COPD GOLD Classification Obstructive lung disease 04/10/2021 Overview: Per COPD GOLD Classification documented as of this encounter (statuses as of 12/19/2023) Immunizations Name Administration Dates Next Due COVID-19 mRNA, LNP-s, No Pre serve, 2-Dose Series (Pfizer) 09/23/2021 Pneumococcal Conjugate Vacci ne, 20-valent ([id number]) 12/12/2023(Deferred: Patient Refused - Renee Duarte MD) [...] Upcoming Encounters Date Type Department Care Team ([facility] st Contact Info) Description 12/19/2023 2:00 PM EST Office Visit [facility] [address] [place] [address] Matthew Herrmann PA-C [address] [place] [address] 12/20/2023 6:15 AM EST Anticoagulation Pharmacy Call Center WB [address] [place] [address] [facility] 58 [address] [place] [address] 12/23/2023 8:30 AM EST Office Visit Hematology Oncology [facility] [address] [place] [address] Kerri Foote MD [address] [place], [place] [phone] 01/02/2024 8:00 AM EST Office Visit Pulmonary Medicine, [facility] 132 [facility] [place] [address] Wyatt Gallegos MD [address] [facility] [place] [address] 05/06/2024 9:20 AM EDT Office Visit Neurology [facility] [place] [address] [place] [address] Kathy Pryor PA-C 200 [facility] [place] [address] Pending Results Name Type Priority Associated Diagnoses Date /Time HEPARIN, LOW MOLECULAR WEIGHT Lab Routine History of pulmonary embolism Acute deep vein thrombosis (DVT) of proximal vein of right lower extremity (HCC) 12/19/2023 12:15 PM EST TSH WITH FREE T4 IF INDICATED Lab STAT Chemotherapy adverse reaction, initial encounter Chemotherapy induced nausea and vomiting Encounter for antineoplastic chemotherapy Malignant neoplasm of lower lobe, left bronchus or lung (HCC) 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) 12/19/2023 12:15 PM EST CBC WITH WBC DIFFERENTIAL Lab STAT Chemotherapy adverse reaction, initial encounter Chemotherapy induced nausea and vomiting Encounter for antineoplastic chemotherapy Malignant neoplasm of lower lobe, left bronchus or lung (HCC) 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) 12/19/2023 12:15 PM EST COMPREHENSIVE METABOLIC PANEL Lab STAT Chemotherapy adverse reaction, initial encounter Chemotherapy induced nausea and vomiting Encounter for antineoplastic chemotherapy Malignant neoplasm of lower lobe, left bronchus or lung (HCC) 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) 12/19/2023 12:15 PM EST CBC Lab STAT Chemotherapy adverse reaction, initial encounter Chemotherapy induced nausea and vomiting Encounter for antineoplastic chemotherapy Malignant neoplasm of lower lobe, left bronchus or lung (HCC) 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) 12/19/2023 12:15 PM EST DIFFERENTIAL, AUTOMATED Lab STAT Chemotherapy adverse reaction, initial encounter Chemotherapy induced nausea and vomiting Encounter for antineoplastic chemotherapy Malignant neoplasm of lower lobe, left bronchus or lung (HCC) 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) 12/19/2023 12:15 PM EST Health Maintenance Due Date Last [...] this encounter Medical Devices Implanted Type Area Order Dispatcher Device Identifier Shelf Expiration Date Model / Serial / Lot Power Port 8fr Sngl Lumen Plas - [id number] Implanted:Qty: 1 on 04/24/2021 at [facility] CR BARD : PERIPHERAL VASCULAR [id number] 02/24/2022 [id number] / / [id number] Port Implant W/8f Poly Cath - [id number] Implanted:Qty: 1 on 10/15/2023 at [facility] CR BARD : PERIPHERAL VASCULAR [id number] 03/27/2025 [id number] / / [id number] documented as of this encounter Visit Diagnoses Diagnosis History of pulmonary embolism Personal history of pulmonary embolism Acute deep vein thrombosis (DVT) of proximal vein of right lower extremity (HCC) Chemotherapy adverse reaction, initial encounter Chemotherapy induced [...] the patient have Health Care Power of Medicare Contact Specialist? No Full Code 05/23/2021 12:21 PM 05/24/2021 9:38 PM This order reflects the patients wishes and were consensually agreed upon. Question Answer Comments Discussion of Advance Directives occurred with: Patient Care Teams Cast Iron Dipper Relationship Specialty Start Date End Date Matthew Herrmann PA-C [address] [place] [address] [phone] PCP - General Physician Child Development Instructor 03/22/21 documented as of this encounter
--- OUTSIDE RECORDS SUMMARY | 2024-04-11 14:50 | External Medical Summary ---
Author Name Unknown Address Unknown Organization K01:LABORATORY [facility] - [facility] [address] [facility] [address] Laboratory Report Ordering Provider Test Date Status JOSE STEELE 12/19/2023 12:15:55 Final Observation Date Value Abnormality Reference (Units ) Status WBC, Total 12/19/2023 12:15:55 8.32 4.00-10.80 (K/uL) Final RBC 12/19/2023 12:15:55 4.45 4.50-5.25 (M/uL) Final Hemoglobin 12/19/2023 12:15:55 14.0 14.0-16.8 (g/dL) Final HCT 12/19/2023 12:15:55 43.2 40.0-48.4 (%) Final MCV 12/19/2023 12:15:55 97.1 82.0-99.5 (fL) Final MCH 12/19/2023 12:15:55 31.5 27.0-34.0 (pg) Final MCHC 12/19/2023 12:15:55 32.4 32.0-36.0 (g/dL) Final RDW 12/19/2023 12:15:55 16.0 11.5-15.5 (%) Final Platelets 12/19/2023 12:15:55 429 Above high normal 140-400 (K/uL) Final MPV 12/19/2023 12:15:55 10.3 6.6-11.1 (fL) Final Nucleated erythrocytes/100 leukocytes [Ratio] in Blood by Automated count 12/19/2023 12:15:55 0 <=0 (/100 WBCs) Final Performing Location LABORATORY [facility] - [address] [place] [address]
--- OUTSIDE RECORDS SUMMARY | 2024-04-11 14:50 | External Medical Summary | Summary of Care ---
Author Name Unknown Organization [facility] Address [address] [facility] [address] Phone [phone] Care Team Providers Care Rehabilitation Counsellor Name Role Phone Matthew Herrmann PA-C Primary Care Provider +1 -[phone] Reason for Visit * Reason Comments Dosage Adjustment Via Phone (anticoag Cl inic) Encounter Details Date Type Department Care Team (Latest Contact Info) Description 12/13/2023 6:45 AM [facility] Anticoagulation Pharmacy Call Center WB [address] [place] [address] [facility] 58 [address] Public [facility] [place] [address] Acute deep vein thrombosis (DVT) of proximal [...] as of this encounter (statuses as of 12/13/2023) Medications Medication Sig Dispensed Refills Start Date [...] as of this encounter (statuses as of 12/13/2023) Active Problems Problem Noted Date Diagnosed Date [...] as of this encounter (statuses as of 12/13/2023) Resolved Problems Problem Noted Date Diagnosed Date Resolved Date MSSA bacteremia 08/01/2021 08/07/2021 Sepsis 08/01/2021 08/07/2021 COPD, group B, by GOLD 2017 classification 05/08/2021 06/21/2021 Overview: Per COPD GOLD Classification Obstructive lung disease 04/10/2021 Overview: Per COPD GOLD Classification documented as of this encounter (statuses as of 12/13/2023) Immunizations Name Administration Dates Next Due COVID-19 mRNA, LNP-s, No Pre serve, 2-Dose Series (Pfizer) 09/23/2021 Pneumococcal Conjugate Vacci ne, 20-valent ([id number]) 12/12/2023(Deferred: Patient Refused - Renee Duarte MD) [...] as of this encounter Progress Notes * Betzy Parra RPh - 12/13/2023 11:29 AM EST Date/Time Type Contact Phone/Fax 12/13/2023 11:35 AM EST by Betzy Parra RPh Outgoing [employer] (Self) Remove Spoke to Patient Pt discharged from [facility] to home. Pt was admitted for Pneumonia. Pt underwent bronchoscopy during admission. PT was discharged Lovenox 80mg every 12 hours (previously ACC had decreased to 70mg every 12 hours). No AntiXa levels checked during admission. Advised pt to resume 70mg every 12 hours. Pt to repeat AntiXa on 12/19 to match PCP appt. Betzy Parra Rph, Pharm.D. Clinical Pharmacist [facility] ([facility]) (formerly Telepharmacy) [phone] 12/13/2023,11:34 AM documented in this encounter Plan of Treatment Upcoming Encounters Date Type Department Care Team ([facility] st Contact Info) Description 12/19/2023 2:00 PM EST Office Visit [address] [phone] Mtathew Herrmann PA-C [address] [place] [address] 12/23/2023 8:30 AM EST Office Visit Hematology Oncology [facility] [address] [place] [phone] Kerri Foote MD [address] [place], [place] [phone] 01/02/2024 8:00 AM EST Office Visit Pulmonary Medicine, [facility] [address] [place] [address] Wyatt Gallegos MD [address] [place] [address] 05/06/2024 9:20 AM EDT Office Visit Neurology [facility] [place] [address] Kathy Pryor PA-C [facility] [place] [address] Health Maintenance Due Date Last Done Comments [...] this encounter Medical Devices Implanted Type Area Facilities Maintenance Engineer Device Identifier Shelf Expiration Date Model / Serial / Lot Power Port 8fr Sngl Lumen Plas - [id number] Implanted:Qty: 1 on 04/24/2021 at [facility] CR BARD : PERIPHERAL VASCULAR [id number] 02/24/2022 [id number] / / [id number] Port Implant W/8f Poly Cath - [id number] Implanted:Qty: 1 on 10/15/2023 at [facility] CR BARD : PERIPHERAL VASCULAR [id number] 03/27/2025 [id number] / / [id number] documented as of this encounter Visit Diagnoses [...] the patient have Health Care Power of Logging Engineer? No Full Code 05/23/2021 12:21 PM 05/24/2021 9:38 PM This order reflects the patients wishes and were consensually agreed upon. Question Answer Comments Discussion of Advance Directives occurred with: Patient Care Teams Rehabilitation Counsellor Relationship Specialty Start Date End Date Matthew Herrmann PA-C [address] [place], [place] [address] [phone] PCP - General Physician Poster 03/22/21 documented as of this encounter
--- OUTSIDE RECORDS SUMMARY | 2024-04-11 14:50 | External Medical Summary ---
Author Name Unknown Address Unknown Organization K01:LABORATORY [facility] - [facility] [address] [place] [address] Laboratory Report Ordering Provider Test Date Status PABLO TODD 12/19/2023 12:15:55 Final Standing order for Anti Xa<b r/>Please draw pt/inr every 1 to 4 weeks
Results to [facility] Anticoagulation Clinic
Observation Date Value Abnormality Reference (Units ) Status LMW Heparin [Units/volume] in Platelet poor plasma by Chromogenic method 12/19/2023 12:15:55 0.84 Above high normal <0.10 (IU/mL) Final Low molecular weight heparin 's therapeutic range is 0.6 - 1.00 I.U./mL. Performing Location LABORATORY [facility] - [facility] [address] [place] [place] [address]
--- OUTSIDE RECORDS SUMMARY | 2024-04-11 14:50 | External Medical Summary | Summary of Care ---
Author Name Unknown Organization [facility] Address [address] [place] [address] Phone [phone] Care Team Providers Care Styrene Dehydration Reactor Operator Name Role Phone Matthew Herrmann PA-C Primary Care Provider +1 -[phone] Reason for Visit * Evaluate & Treat - Unlimited Visits (Within 10 days (routine)) - Authorized Specialty Diagnoses / Procedures Referred By Yuli seay Referred To Contact Hematology/Oncology / Hematology Oncology Diagnoses Malignant neoplasm of unspecified part of unspecified bronchus or lung (HCC) Yonathan Tomas CRNP [address] [place] [address] Referral ID Status Reason Start Date Expiration Date Visits Requested Visits Authorized [id number] Authorized Specialty Services Required 11/05/2023 11/04/2024 [id number] Encounter Details Date Type Department Care Team (Latest Contact Info) Description 11/21/2023 9:00 AM EST Hem/Onc Treatment Hematology Oncology [facility], [place] [address] [place] [address] [place], [facility] 4 Hem/Onc [facility] [address] [place], [place] [phone] Chemotherapy adverse reaction, initial encounter*; Chemotherapy induced [...] mRNA, LNP-s, No Pre serve, 2-Dose Series ([facility]) 09/23/2021 documented as of this encounter Social [...] 8:00 AM EST Office Visit Pulmonary Medicine, [facility] 132 [facility] [place] [address] Wyatt Gallegos MD [address] [facility] [address] 01/03/2024 8:45 AM EST Nurse Only Hematology Oncology [address] [address] [place], Nurse Lab Hem/Onc [address] [place] [address] 01/03/2024 9:30 AM EST Office Visit Hematology Oncology [address] [place] [address] Velia Segundo PA-C [address] [place] [address] 01/03/2024 10:30 AM EST Hem/Onc Treatment Hematology Oncology [facility], [place] [address] [place] [address] [place], Chair 4 Hem/Onc [address] [place] [address] 01/23/2024 7:45 AM EDT Nurse Only Hematology Oncology [facility], [place] [address] [place] [address] [place], Nurse Lab Hem/Onc [facility] [place] [address] 01/23/2024 8:30 AM EDT Office Visit Hematology Oncology [facility], [place] [address] [place] [address] Nicole Carrillo PA-C [address] [place] [address] 01/23/2024 9:30 AM EDT Hem/Onc Treatment Hematology Oncology [facility], [place] [address] [place] [address] [place], Chair 4 Hem/Onc [address] [place] [address] 01/24/2024 6:15 AM EDT Anticoagulation Pharmacy Call Center WB [address] [facility] [place] [address] [facility] 58 60 [facility] [place] [address] 02/13/2024 9:45 AM EDT Nurse Only Hematology Oncology [place] [address] [place] [address] [place], Nurse Lab Hem/Onc [address] [place] [address] 02/13/2024 10:30 AM EDT Office Visit Hematology Oncology [facility], [address] [phone] Kerri Foote MD [facility] [address] [place], [place] [phone] 02/13/2024 11:30 AM EDT Hem/Onc Treatment Hematology Oncology [facility], [address] [phone] [place], Chair 4 Hem/Onc [address] [place] [address] [phone] 02/25/2024 9:30 AM EDT Appointment Radiology, [address] [address] 05/06/2024 9:20 AM EDT Office Visit Neurology [facility] [place] 200 [facility] [place] [address] Kathy Pryor PA-C 200 [facility] [place] [phone] Health Maintenance Due Date Last Done Comments [...] this encounter Medical Devices Implanted Type Area Manufacturer Representative Device Identifier Shelf Expiration Date Model / Serial / Lot Power Port 8fr Sngl Lumen Plas - [id number] Implanted:Qty: 1 on 04/24/2021 at [facility] CR BARD : PERIPHERAL VASCULAR [id number] 02/24/2022 [id number] / / [id number] Port Implant W/8f Poly Cath - [id number] Implanted:Qty: 1 on 10/15/2023 at [facility] CR BARD : PERIPHERAL VASCULAR [id number] 03/27/2025 [id number] / / [id number] documented as of this encounter Results * [...] Foote MD LAB BLOOD ORDERAB LES LABORATORY [facility] [address] [place] [address] * TSH WITH FREE T4 IF INDICATED (12/19/2023 12:15 PM EST) TSH 2.10 0.27 - 4.20 uIU/mL 12/19/2023 8:29 PM EST LABORATORY GM Blood Venous blood specimen / Unknown Venipuncture / Unknown 12/19/2023 12:15 PM EST 12/19/2023 12:15 PM EST Kerri Foote MD LAB BLOOD ORDERAB LES LABORATORY [facility] [address] [place] [address] documented in this encounter Visit Diagnoses Diagnosis [...] the patient have Health Care Power of Power Brake Operator? No Full Code 05/23/2021 12:21 PM 05/24/2021 9:38 PM This order reflects the patients wishes and were consensually agreed upon. Question Answer Comments Discussion of Advance Directives occurred with: Patient Care Teams Styrene Dehydration Reactor Operator Relationship Specialty Start Date End Date Matthew Herrmann PA-C [address] [place] [address] PCP - General Physician Program Management Analyst 03/22/21 documented as of this encounter
--- OUTSIDE RECORDS SUMMARY | 2024-04-11 14:50 | External Medical Summary ---
Author Name Unknown Address Unknown Organization K01:[facility] [place] [address] [facility] [place] [address] Laboratory Report Ordering Provider Test Date Status JOSE STEELE 12/19/2023 12:15:55 Final Observation Date Value Abnormality Reference (Units ) Status SYNC LEUKOCYTES IN BLOOD BY AUTOMATED COUNT 12/19/2023 12:15:55 8.32 4.00-10.80 (K/uL) Final Segs 12/19/2023 12:15:55 60.6 40.0-75.0 (%) Final Lymphs % 12/19/2023 12:15:55 21.5 18.0-42.0 (%) Final Monos 12/19/2023 12:15:55 13.8 Above high normal 1.0-11.0 (%) Final Eosinophils 12/19/2023 12:15:55 2.3 0.0-6.0 (%) Final Basos 12/19/2023 12:15:55 1.0 0.0-2.0 (%) Final Immature Granulocyte, Percent 12/19/2023 12:15:55 0.8 0.0-2.0 (%) Final Absolute Segs 12/19/2023 12:15:55 5.04 1.80-7.70 (K/uL) Final Lymphs, absolute 12/19/2023 12:15:55 1.79 1.00-4.80 (K/ul) Final Monos, Abs 12/19/2023 12:15:55 1.15 Above high normal 0.00-1.10 (K/uL) Final Eos, Abs 12/19/2023 12:15:55 0.19 0.00-0.70 (K/uL) Final Basos, Abs 12/19/2023 12:15:55 0.08 0.00-0.20 (K/uL) Final Immature Granulocytes, Number 12/19/2023 12:15:55 0.07 0.00-0.20 (K/uL) Final Performing Location [facility] [place] [address]
--- OUTSIDE RECORDS SUMMARY | 2024-04-11 14:50 | External Medical Summary ---
Author Name Unknown Address Unknown Organization K01:LABORAT[facility] [place] - [facility] [address] [place] [address] Laboratory Report Ordering Provider Test Date Status PABLO TODD 12/30/2023 12:04:25 Final Standing order for Anti Xa<b r/>Please draw pt/inr every 1 to 4 weeks
Results to [facility]
Observation Date Value Abnormality Reference (Units ) Status LMW Heparin [Units/volume] in Platelet poor plasma by Chromogenic method 12/30/2023 12:04:25 0.74 Above high normal <0.10 (IU/mL) Final Low molecular weight heparin 's therapeutic range is 0.6 - 1.00 I.U./mL. Performing Location [facility] - [address] [place] [address]
--- OUTSIDE RECORDS SUMMARY | 2024-04-11 14:50 | External Medical Summary | Summary of Care ---
Author Name Unknown Organization [facility] Address [address] [place] [address] Phone [phone] Care Team Providers Care Marine Engine Machinist Apprentice Name Role Phone Lukeharry Matthew Narayanan PA-C Primary Care Provider [phone] Reason for Referral * Precert (Within 10 days (routine)) - Pending Review Specialty Diagnoses / Procedures Referred By Yuli seay Referred To Contact Radiology Diagnoses Primary malignant neoplasm of left lower lobe of lung (HCC) Malignant neoplasm of lower lobe, left bronchus or lung (HCC) Procedures CT CHEST/ABDOMEN/PELVIS WITH IV CONTRAST WITH ORAL CONTRAST Kerri Foote MD [address] [place] [address] Referral ID Status Reason Start Date Expiration Date V isits Requested Visits Authorized [id number] Pending Review 02/25/2024 999 999 Reason for Visit * Reason Comments Follow Up * Evaluate & Treat - Unlimited Visits (Within 10 days (routine)) - Authorized Specialty Diagnoses / Procedures Referred By Yuli seay Referred To Contact Hematology/Oncology / Hematology Oncology Diagnoses Malignant neoplasm of unspecified part of unspecified bronchus or lung (HCC) Yonathan Tomas CRNP [address] [place] [address] Referral ID Status Reason Start Date Expiration Date Visits Requested Visits Authorized [id number] Authorized Specialty Services Required 11/05/2023 11/04/2024 999 [id number] Encounter Details Date Type Department Care Team (Latest Contact Info) Description 12/23/2023 8:30 AM EST Office Visit Hematology [facility] [address] [place] [address] Kerri Foote MD [address] [place] [address] 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)*; Primary malignant neoplasm of left lower lobe of lung (HCC); Malignant neoplasm of lower lobe, left bronchus or lung (HCC); Dizziness; Dyspnea, unspecified type; History of stroke; History of pulmonary embolism; 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); Multiple subsegmental pulmonary emboli without acute cor pulmonale (HCC); Nausea and vomiting, unspecified vomiting type; Generalized edema due to fluid overload Allergies Active Allergy Reactions Criticality Noted Date Comments Carboplatin High 11/14/2021 Dyspnea, chest pain, hypoxia, sore throat, edema throat, flushing, mild hypotension Isosorbide Nitrate Other (Please comment) 07/22/2023 Headache documented as of this encounter (statuses as of 12/23/2023) Medications Medication Sig Dispensed Refills Start Date [...] as of this encounter (statuses as of 12/23/2023) Active Problems Problem Noted Date Diagnosed Date [...] as of this encounter (statuses as of 12/23/2023) Resolved Problems Problem Noted Date Diagnosed Date Resolved Date MSSA bacteremia 08/01/2021 08/07/2021 Sepsis 08/01/2021 08/07/2021 COPD, group B, by GOLD 2017 classification 05/08/2021 06/21/2021 Overview: Per COPD GOLD Classification Obstructive lung disease 04/10/2021 Overview: Per COPD GOLD Classification documented as of this encounter (statuses as of 12/23/2023) Immunizations Name Administration Dates Next Due COVID-19 mRNA, LNP-s, No Pre serve, 2-Dose Series ([employer]) 09/23/2021 Pneumococcal Conjugate Vacci ne, 20-valent ([id number]) 12/12/2023(Deferred: Patient Refused - Renee Duarte MD) [...] Sign Reading Time Taken Comments Blood Pressure 110/76 12/23/2023 8:34 AM EST Pulse 80 12/23/2023 8:34 AM EST Temperature 36.9 C (98.5 F) 12/23/2023 8:34 AM ES T Respiratory Rate 17 12/23/2023 8:34 AM EST Oxygen Saturation 96% 12/23/2023 8:34 AM EST RA Inhaled Oxygen Concentration - - Weight 102.6 kg (226 lb 3.2 oz) 12/23/2023 8:34 AM EST Height 180.3 cm (5' 11") 12/23/2023 8:34 AM EST Body Mass Index 31.55 12/23/2023 8:34 AM EST documented in this encounter Functional [...] Progress Notes * Kerri Foote MD - 12/23/2023 8:58 AM EST Hematology/Medical Oncology [place] [address] Outpatient Progress Note Data Source: Patient, Epic record. 12/13/23 5 pm John Orlando Brothers [id number] 53 year old Patient Encounter: HEMATOLOGY ONCOLOGY [facility] [place] Assessment/Plan: 1. Metastatic lung cancer. He progressed on pemetrexed [...] with exercise 7. Edema. Improved. 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) Multiple subsegmental pulmonary emboli without acute cor pulmonale (HCC) Nausea and vomiting, unspecified vomiting type Generalized edema due to fluid overload Check-out note: Rx 4 hrs next week and 01/22 and 4/18 Cbcd cmp pre treatment with leela or 9 on 02/12 Shot on Saturday after chemo Ct of chest abd and pelvis end of January History of Present Illness: Cancer Diagnosis: Cancer Staging Primary malignant neoplasm of left lower lobe of lung (HCC) Staging form: Lung, AJCC 8th Edition - Clinical stage from 04/20/2021: Stage IVB (cT4, cN3, cM1c) - Signed by Melissa Beal MD on 06/08/2021 Metastatic non-small cell lung cancer to bones. Adenocarcinoma. Biopsy done at [facility]. Molecular markers were not performed. Oncology history No regular chest imaging. 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 No history of tobacco abuse. 09/2020 diagnosed COVID+, symptoms of cough Did not require imaging, ED visit, hospitalization Cough persisted and has intensified 12/2020 traveled to [place], when returned diagnosed with DVT, imaging with lung infiltrates treated with abx, unclear if infectious/inflammatory perhaps resolving post COVID interstitial changes, and left lower lobe mass noted 02/2021 traveled to [place], returned another DVT, workup with CTA noting [...] hilum and 4L diagnosing NSCLC, Adenocarcinoma - [facility] 04/06/2021 CTA thorax, no definitive PE. Interval [...] mucosal thickening of the left maxillary sinus. CURRENT TREATMENT:PEMETREXED (Every 21 days) 06/08/2021 09/14/21 Please add Carboplatin back into chemo plan 10/05/[address] Foote add 6 more cycles of chemo to plan. 11/15/21 STOP Carboplatin - due to reaction 05/31/22 to 04/2023 - Keytruda Supportive: Vitamin B12 every 9 weeks Zoledronic acid Last cycle of chemo/immuno 11/21/2023 Chemotherapy Meds Day, Cycle Day 1, Cycle 3 CARBOplatin (Paraplatin) IVPB PACLitaxel (Taxol) IVPB PACLitaxel (Taxol) IVPB 175 mg/m2 = 387 mg Pembrolizumab (Keytruda) IVPB 200 mg PEMEtrexed Disodium (Alimta) IVPB /- 12/12/23 hospitalized Active Hospital Problems Diagnosis *Principal Diagnosis - Acute hypoxic respiratory failure (HCC) Malnutrition of moderate degree (HCC) Pneumonia History of pulmonary embolism Immunodeficiency (HCC) Dyspnea on exertion Primary malignant neoplasm of left lower lobe of lung (HCC) Carboplatin stopped secondary to drug reaction - moderate Interval History Chief Complaint Patient presents with Follow Up On 2 L Oxygen at night. Short of breath with walking Vomiting in am after coughing. Occurs after he takes his pills. Fatigue. No appetite REVIEW OF SYSTEMS: General: No Fever, chills, night sweats, or weight loss. HEENT: No change in visual acuity, blurred or double vision. No epistaxis, facial pain, nasal discharge or change in hearing. Denies dysphagia, no muscosal ulceration, or sores noted. Cardiovascular: No chest pain, ALDRIDGE, or palpitations Respiratory: No hemoptysis, or pleuritic chest pain Gastrointestinal: No abdominal pain, diarrhea, rectal pain or bleeding Genitourinary: Denies Hematuria or dysuria Musculoskeletal: No bone pain Skin: No skin rash or lesions noted Neurologic: No neuropathic pain Psychiatric: No vegetative signs of depression Endocrine: No symptoms of hypothyroidism or hyperglycemia Hematologic: No bleeding or lymph nodes noted As mentioned above, all of the systems were reviewed in full and are unremarkable. PHYSICAL EXAMINATION: General Appearance: Healthy appearing patient in no acute distress. ECOG: Performance Status 0 BP 110/76 | Pulse 80 | Temp 36.9 C (98.5 F) (Tympanic) | Resp 17 | Ht 1.803 m (5' 11") | Wt 102.6 kg (226 lb 3.2 oz) | SpO2 96% Comment: RA | BMI 31.55 kg/m | BSA 2.27 m Vitals reviewed. HEENT: No oral or [...] of gout, no jointor bony deformity Neurologic: left facial numbness. LABS/IMAGING: Results for orders placed or performed in visit on 12/19/23 HEPARIN, LOW MOLECULAR WEIGHT Result Value Ref Range Heparin, Low Molecular Weight 0.84 (H) <0.10 IU/mL TSH WITH FREE T4 IF INDICATED Result Value Ref Range TSH 2.10 0.27 - 4.20 uIU/mL COMPREHENSIVE METABOLIC PANEL Result Value Ref Range BUN 9 6 - 20 mg/dL Creatinine 0.9 0.6 - 1.2 mg/dL Estimated Glomerular Filtration Rate >90 >=60 mL/min Sodium 140 135 - 146 mmol/L Potassium 3.8 3.5 - 5.1 mmol/L Chloride 104 98 - 107 mmol/L CO2 26 22 - 32 mmol/L Anion Gap 10 7 - 15 mmol/L Glucose 100 70 - 120 mg/dL Albumin 4.0 3.8 - 5.0 g/dL AST 32 10 - 50 U/L Alkaline Phosphatase 102 35 - 130 U/L Bilirubin, Total 0.4 <=1.2 mg/dL Calcium 9.1 8.4 - 10.2 mg/dL Protein 6.7 6.0 - 8.3 g/dL ALT 52 (H) 10 - 50 U/L CBC Result Value Ref Range WBC 8.32 4.00 - 10.80 K/uL RBC 4.45 4.50 - 5.25 M/uL HGB 14.0 14.0 - 16.8 g/dL HCT 43.2 40.0 - 48.4 % MCV 97.1 82.0 - 99.5 fL MCH 31.5 27.0 - 34.0 pg MCHC 32.4 32.0 - 36.0 g/dL RDW 16.0 11.5 - 15.5 % PLT 429 (H) 140 - 400 K/uL MPV 10.3 6.6 - 11.1 fL nRBCs 0 <=0 /100 WBCs DIFFERENTIAL, AUTOMATED Result Value Ref Range WBC 8.32 4.00 - 10.80 K/uL Neutrophils % 60.6 40.0 - 75.0 % Lymphocytes % 21.5 18.0 - 42.0 % Monocytes % 13.8 (H) 1.0 - 11.0 % Eosinophils % 2.3 0.0 - 6.0 % Basophils % 1.0 0.0 - 2.0 % Immature Granulocytes % 0.8 0.0 - 2.0 % Absolute Neutrophils 5.04 1.80 - 7.70 K/uL Absolute Lymphocytes 1.79 1.00 - 4.80 K/ul Absolute Monocytes 1.15 (H) 0.00 - 1.10 K/uL Absolute Eosinophils 0.19 0.00 - 0.70 K/uL Absolute Basophils 0.08 0.00 - 0.20 K/uL Absolute Immature Granulocytes 0.07 0.00 - 0.20 K/uL MRI BRAIN W WO CONTRAST Narrative: EXAM BRAIN MRI WITHOUT AND WITH CONTRAST - 12/05/2023 HISTORY Metastatic workup. Known history of lung cancer. COMPARISON MRI brain dated 09/30/2023. TECHNIQUE Multiplanar, multisequence MRI of the brain was performed without and with intravenous contrast. FINDINGS No acute infarct, acute intracranial hemorrhage, mass effect, midline shift, hydrocephalus, or extra-axial fluid collection. Mild volume loss with proportionate prominence of the ventricles and sulci. Subacute to chronic right MCA territory infarct is noted associated with gyriform enhancement. A few patchy foci of T2 prolongation in the subcortical and periventricular white matter are nonspecific and may reflect sequelaof chronic microvascular ischemia. The larger intracranial vascular flow voids are maintained. Mild mucosal thickening in the bilateral ethmoid air cells. Bilateral mastoid air cells are clear. Impression: IMPRESSION 1. No intracranial metastatic disease. 2. 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 Amount and/or Complexity of Data Reviewed independently by me and with patient from past year Clinical lab tests: Ordered and reviewed including recent cbcd, cmp . Phos Radiology tests: Ordered and reviewed including recent Mri of brain Other medical tests: ordered and reviewed Physician notes: reviewed past year including note by Dr Collazo All data in this note reviewed with patient I spent a total of 59 minutes on the date of service in preparation, delivery, and documentation ofthe care provided to John Brothers. See above for assessment and plan Kerri Foote MD Hematology Oncology [address] [address] documented in this encounter Nursing Notes * Sarai Mark CNA - 12/23/2023 8:41 AM EST Patient was instructed to not get up on the exam table/exam chair until directed and assisted by their provider; patient is to remain seated in the chair/ wheelchair/ exam table/ exam chair for fall prevention and safety reasons. Patient is aware to have assistance to step down off exam table/exam chair with personnel. Patient voiced full comprehension of instructions. Room 22 documented in this encounter Plan of Treatment Upcoming Encounters Date Type Department Care Team (Late st Contact Info) Description 01/02/2024 8:00 AM EST Office Visit Pulmonary Medicine, [facility] [address] [facility] [place] [address] Wyatt Gallegos MD [address] [place] [address] 01/03/2024 8:45 AM EST Nurse Only Hematology Oncology [facility], [address] [id number] [place], Nurse Lab Hem/Onc [address] [place] [address] 01/03/2024 9:30 AM EST Office Visit Hematology Oncology apper [facility], [place] [address] [place] [address] Velia Segundo PA-[place] [facility] [place] [address] 01/03/2024 10:30 AM EST Hem/Onc Treatment Hematology Oncology [facility], [place] [address] [place] [address] [place], Chair 4 Hem/Onc [address] [place] [address] 01/23/2024 7:45 AM EDT Nurse Only Hematology Oncology [facility], [address] [id number] [place], Nurse Lab Hem/Onc [address] [place] [address] 01/23/2024 8:30 AM EDT [facility], [address] [address] Nicole Carrillo PA-C [facility] [place] [address] 01/23/2024 9:30 AM EDT Hem/Onc Treatment Hematology Oncology [facility], [address] [address] [place], Chair 4 Hem/Onc [address] [place] [address] 01/24/2024 6:15 AM EDT Anticoagulation Pharmacy Call Center [address] [place] [address] [facility] [address] [place] [address] 02/25/2024 9:30 AM EDT Appointment Radiology, [address] [address] 05/06/2024 9:20 AM EDT Office Visit Neurology [facility] [address] [place] [address] Kathy Pryor PA-C [address] [place] [address] Scheduled Orders Name Type Priority Associated Diagnoses Orde r Schedule CT CHEST/ABDOMEN/PELVIS WITH IV CONTRAST WITH ORAL CONTRAST Medical Imaging Routine Primary malignant neoplasm of left lower lobe of lung (HCC) Malignant neoplasm of lower lobe, left bronchus or lung (HCC) Expected: 02/25/2024, Expires: 01/20/2025 Health Maintenance Due Date Last Done Comments [...] Additional history exists Lipid Panel 09/19/2026 09/19/2021, 100 12/2012, 04/25/2010 Colonoscopy 08/13/2029 08/13/2019, 08/13/2019 Colorectal Cancer Screening 08/13/2029 GARDASIL-HPV IMMUNIZATION SERIES Aged Out No longer eligible based on patient's age to complete this topic MENINGOCOCCAL (MENACTRA/MENVEO) Aged Out No longer eligible based on patient's age to complete this topic documented as of this encounter Medical Devices Implanted Type Area Painter Ordnance Device Identifier Shelf Expiration Date Model / Serial / Lot Power Port 8fr Sngl Lumen Plas - [id number] Implanted:Qty: 1 on 04/24/2021 at [facility] CR BARD : PERIPHERAL VASCULAR [id number] 02/24/2022 [id number] / / [id number] Port Implant W/8f Poly Cath - [id number] Implanted:Qty: 1 on 10/15/2023 at [facility] CR BARD : PERIPHERAL VASCULAR [id number] 03/27/2025 [id number] / / [id number] documented as of this encounter Visit Diagnoses Diagnosis 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)- Primary Primary malignant neoplasm of left lower lobe of lung (HCC) Malignant neoplasm of lower lobe, bronchus, or lung Malignant neoplasm of lower lobe, left bronchus or lung (HCC) Dizziness Dizziness and giddiness Dyspnea, unspecified type History of stroke Transient ischemic attack (TIA), and cerebral infarction without residual deficits History of pulmonary embolism Personal history of pulmonary embolism 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) Multiple subsegmental pulmonary emboli without acute cor pulmonale (HCC) Nausea and vomiting, unspecified vomiting type Generalized edema due to fluid overload documented [...] the patient have Health Care Power of Video Technician? No Full Code 05/23/2021 12:21 PM 05/24/2021 9:38 PM This order reflects the patients wishes and were consensually agreed upon. Question Answer Comments Discussion of Advance Directives occurred with: Patient Care Teams Marine Engine Machinist Apprentice Relationship Specialty Start Date End Date Matthew Herrmann PA-C [address] [place] [address] [place] [address] PCP - General Physician Pals Nurse 03/22/21 documented as of this encounter
--- OUTSIDE RECORDS SUMMARY | 2024-04-11 14:50 | External Medical Summary | Summary of Care ---
Author Name Unknown Organization [facility] Address [address] [facility] [address] Phone [phone] Care Team Providers Care Paper Gluing Operator Name Role Phone Matthew Herrmann PA-C Primary Care Provider [phone] Reason for Visit * Reason Comments Dosage Adjustment Via Phone (anticoag Cl inic) Encounter Details Date Type Department Care Team (Latest Contact Info) Description 12/20/2023 6:15 AM [facility] Anticoagulation Pharmacy Call Center [phone] [place] [address] [facility] [address] [facility] [place] [address] Acute deep vein thrombosis (DVT) of proximal [...] as of this encounter (statuses as of 12/20/2023) Medications Medication Sig Dispensed Refills Start Date [...] as of this encounter (statuses as of 12/20/2023) Active Problems Problem Noted Date Diagnosed Date [...] as of this encounter (statuses as of 12/20/2023) Resolved Problems Problem Noted Date Diagnosed Date Resolved Date MSSA bacteremia 08/01/2021 08/07/2021 Sepsis 08/01/2021 08/07/2021 COPD, group B, by GOLD 2017 classification 05/08/2021 06/21/2021 Overview: Per COPD GOLD Classification Obstructive lung disease 04/10/2021 Overview: Per COPD GOLD Classification documented as of this encounter (statuses as of 12/20/2023) Immunizations Name Administration Dates Next Due COVID-19 mRNA, LNP-s, No Pre serve, 2-Dose Series ([employer]) 09/23/2021 Pneumococcal Conjugate Vacci ne, 20-valent ([id number]) 12/12/2023(Deferred: Patient Refused - Renee Duarte MD) [...] as of this encounter Progress Notes * Candi Stallworth RPh - 12/20/2023 11:01 AM EST Patient Phone Numbers Spoke to John via phone. Unusual Bruising or Bleeding : no Upcoming procedure: no Lovenox dose verified: compliant Labs were drawn ~ 4 hours after dose yes; 815 AntiXa results, Lovenox dose instructions, and next antiXa date communicated as noted by Pharmacist: Yes Candi Bauer PharmD, MS Clinical Pharmacist [facility] [phone] 12/20/2023 11:01 AM * Betzy Parra RPh - 12/20/2023 9:05 AM EST Anticoagulation Clinic Current Lovenox Dose: 70mg every 12 hours AntiXa level 0.84 (goal 0.6-1.0) Dose instructions: Lovenox CONTINUE 70mg every 12 hours Repeat antiXa level in 5 weeks on 01/22 at [facility]. Remind patient that labs must be drawn 4 hours after dose. SHIRA to contact patient with dose instructions as noted. Betzy Parra RPh 12/20/23, 9:05 AM documented in this encounter Plan of Treatment Upcoming Encounters Date Type Department Care Team (Late st Contact Info) Description 12/23/2023 8:30 AM EST Office Visit Hematology Oncology [facility] [address] [place] [address] Kerri Foote MD [address] [facility] [place] [address] 01/02/2024 8:00 AM EST Office Visit Pulmonary Medicine, [facility] [address] [place] [address] Wyatt Gallegos MD [address] [facility] [place] [address] 05/06/2024 9:20 AM EDT Office Visit Neurology [facility] [address] [place] [address] Kathy Pryor PA-C [address] [facility] [place] [address] Health Maintenance Due Date Last Done Comments [...] this encounter Medical Devices Implanted Type Area Rcp Device Identifier Shelf Expiration Date Model / Serial / Lot Power Port 8fr Sngl Lumen Plas - [id number] Implanted:Qty: 1 on 04/24/2021 at [facility] CR BARD : PERIPHERAL VASCULAR [id number] 02/24/2022 [id number] / / [id number] Port Implant W/8f Poly Cath - [id number] Implanted:Qty: 1 on 10/15/2023 at [facility] CR BARD : PERIPHERAL VASCULAR [id number] 03/27/2025 [id number] / / [id number] documented as of this encounter Visit Diagnoses [...] the patient have Health Care Power of Chief Operating Engineer? No Full Code 05/23/2021 12:21 PM 05/24/2021 9:38 PM This order reflects the patients wishes and were consensually agreed upon. Question Answer Comments Discussion of Advance Directives occurred with: Patient Care Teams Paper Gluing Operator Relationship Specialty Start Date End Date Matthew Herrmann PA-C [address] [place], [place] [address] [place] [address] PCP - General Physician Automatic Glove Turner And Former 03/22/21 documented as of this encounter
--- OUTSIDE RECORDS SUMMARY | 2024-04-11 14:50 | External Medical Summary ---
Author Name Unknown Address Unknown Organization K01:[facility] [place] [address] [place] [address] Laboratory Report Ordering Provider Test Date Status JOSE STEELE 12/19/2023 12:15:55 Final Observation Date Value Abnormality Reference (Units ) Status BUN 12/19/2023 12:15:55 9 6-20 (mg/dL) Final Creatinine 12/19/2023 12:15:55 0.9 0.6-1.2 (mg/dL) Final Glomerular filtration rate/1.73 sq M.predicted [Volume Rate/Area] in Serum, Plasma or Blood by Creatinine-based formula (CKD-EPI) 12/19/2023 12:15:55 >90 >=60 (mL/min) Final eGFR is calculated based on the CKD-EPI 2020 equation SODIUM 12/19/2023 12:15:55 140 135-146 (m mol/L) Final Potassium 12/19/2023 12:15:55 3.8 3.5-5.1 (m mol/L) Final Cl 12/19/2023 12:15:55 104 98-107 (mm ol/L) Final CO2 12/19/2023 12:15:55 26 22-32 (mmo l/L) Final Anion gap 12/19/2023 12:15:55 10 7-15 (mmol /L) Final Glucose 12/19/2023 12:15:55 100 70-120 (mg /dL) Final Albumin 12/19/2023 12:15:55 4.0 3.8-5.0 (g /dL) Final AST (Aspartate aminotransferase) 12/19/2023 12:15:55 32 10-50 (U/L) Fin al Alk Phos 12/19/2023 12:15:55 102 35-130 (U/ L) Final Bilirubin, Total 12/19/2023 12:15:55 0.4 <=1 .2 (mg/dL) Final Calcium 12/19/2023 12:15:55 9.1 8.4-10.2 ( mg/dL) Final Protein 12/19/2023 12:15:55 6.7 6.0-8.3 (g /dL) Final ALT (Alanine aminotransferase) 12/19/2023 12:15:55 52 Above high normal 10-50 (U/L) Final Performing Location LABOR[facility]ORY [facility] - [address] [facility] [address]
--- OUTSIDE RECORDS SUMMARY | 2024-04-11 14:50 | External Medical Summary | Summary of Care ---
Author Name Unknown Organization [facility] Address [address] [place] [address] Phone [phone] Care Team Providers Care Corpsman Name Role Phone Matthew Herrmann PA-C Primary Care Provider [phone] Reason for Visit * Reason Onset Date Comments Hospital Follow-Up [facility] follow up see epic notes. Hospital Follow-Up 12/19/2023 Encounter Details Date Type Department Care Team ([facility] st Contact Info) Description 12/19/2023 2:00 PM EST Office Visit [address] [phone] Matthew Herrmann PA-C [address] [place] [address] Hospital discharge follow-up*; Non-small cell lung cancer metastatic to bone [...] (Pfizer) 09/23/2021 Pneumococcal Conjugate Vacci ne, 20-valent ([id number]) 12/12/2023(Deferred: Patient Refused - Renee Duarte MD) [...] Sign Reading Time Taken Comments Blood Pressure 108/74 12/19/2023 2:03 PM EST Pulse 94 12/19/2023 2:03 PM EST Temperature 37.2 C (98.9 F) 12/19/2023 2:03 PM ES T Respiratory Rate 20 12/19/2023 2:03 PM EST Oxygen Saturation 95% 12/19/2023 2:03 PM EST Inhaled Oxygen Concentration - - Weight 103.6 kg (228 lb 6.4 oz) 12/19/2023 2:03 PM EST Height - - Body Mass Index 31.86 12/05/2023 6:09 PM EST documented in this encounter Functional Status [...] as of this encounter Progress Notes * Matthew Herrmann PA-C - 12/19/2023 2:06 PM EST SUBJECTIVE: John Brothers is a 53 year old male. Chief Complaint Patient presents with Hospital Follow-Up [facility] follow up see epic notes. Recent Admission: Patient was recently admitted to [facility] 12/04/23. The date of discharge was 12/12/23. Discharge report received and reviewed. Dx multifocal pneumonia, hypersensitivity pneumonitis. ID, thoracic medicine, Oncology consulted. Respiratory status improved on IV antibiotics. A bronchoscopy was without any significant findings. Final cultures and cytology were pending at the time of discharge - thus far I see no abnormal findings, results still in preliminary status. He had an ambulatory pulse oximetry that did not show any significant desaturations. Nocturnal oximetry showed desaturations and was discharged oxygen at night. To follow up with thoracic medicine and Oncology as an outpatient for follow-up of results. Case management following. Using O2 at night, has continuous monitoring through case management program. Admits generally still SOB and tires easily, not worsening. Did find some breathing improvement with albuterol inhaler previously Rx'd, has not discussed any other inhaled medication treatments with Pulmonology - encouraged. 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) C34.90, C79.51 Chemotherapy induced nausea and vomiting R11.2, T45.1X5A Multiple subsegmental pulmonary emboli without acute cor pulmonale (HCC) I26.94 Dyspnea on exertion R06.09 Prediabetes R73.03 Chemotherapy adverse reaction, initial encounter T45.1X5A Immunodeficiency (HCC) D84.9 Malignant neoplasm of lower lobe, left bronchus or lung (HCC) C34.32 History of pulmonary embolism Z86.711 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 Ondansetron HCl 8 MG Oral Tablet Take 1 Tablet by mouth in the morning and 1 Tablet at noon and 1 Tablet before bedtime. 30 Tablet 3 Culturelle Probiotics Oral Tablet Chewable [...] mouth in the morning. 30 Tablet 0 Nitroglycerin 0.4 MG Sublingual Tablet Sublingual (Nitrostat) Place 1 Tablet under the tongue once as needed. As directed for chest pain (Patient not taking: Reported on 12/19/2023) No current facility-administered medications for this visit. Current and discharge medications have been reconciled. Review of patient's allergies indicates: Allergen Reactions Carboplatin Dyspnea, chest pain, hypoxia, sore throat, edema throat, flushing, mild hypotension Isosorbide Nitrate Other (Please comment) Headache OBJECTIVE: BP 108/74 | Pulse 94 | Temp 37.2 C (98.9 F) | Resp 20 | Wt 103.6 kg (228 lb 6.4 oz) | SpO2 95% | BMI 31.86 kg/m | BSA 2.28 m PHYSICAL EXAM: General: alert, no distress, well nourished, and well developed Head: Normocephalic, No masses, lesions, tenderness or abnormalities Heart: regular rate & rhythm, no murmur, and no gallops Lungs: Nonlabored breathing. Diminished breath sounds throughout. No wheezes/rales/rhonchi Extremities: no edema ASSESSMENT/PLAN: Hospital discharge follow-up (Primary) - DISCH MED RECON CUR MED LIS 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) Dyspnea on exertion Encouraged to discuss PFTs and/or inhaler/nebulizer recommendations at upcoming Pulmonology appointment. FOLLOW-UP: Follow Up: Return in about 4 months (around 04/18/2024). I spent a total of 30-39 minutes (exact time 30 mins) minutes on the date of service in preparation, delivery, and documentation of the care provided to John Brothers excluding any time spent in performance of separately billed services. Matthew Herrmann PA-C [address] [address] documented in this encounter Nursing Notes * Fausto Polanco LPN - 12/19/2023 1:59 PM EST The patient has been properly identified by confirmation of name and date of . Chief Complaint Patient presents with Hospital Follow-Up [facility] follow up see epic notes. Oxygen 2ml at night and as needed for sob. documented in this encounter Plan of Treatment Upcoming Encounters Date Type Department Care Team (Late st Contact Info) Description 12/20/2023 6:15 AM EST Anticoagulation Pharmacy Call Center WB [address] [place] [address] [facility] 58 [address] [place] [address] 12/23/2023 8:30 AM EST Office Visit Hematology Oncology [facility] [address] [place] [address] Kerri Foote MD [address] [place] [address] 01/02/2024 8:00 AM EST Office Visit Pulmonary Medicine, [facility] [address] [facility] [place] [address] Wyatt Gallegos [facility] [address] [facility] [address] 05/06/2024 9:20 AM EDT Office Visit Neurology [facility] [address] [place] [address] Kathy Pryor PA-C 200 [facility] [place] [address] Health Maintenance Due Date Last Done Comments [...] this encounter Medical Devices Implanted Type Area Lubricating Specialist Device Identifier Shelf Expiration Date Model / Serial / Lot Power Port 8fr Sngl Lumen Plas - [id number] Implanted:Qty: 1 on 04/24/2021 at [facility] CR BARD : PERIPHERAL VASCULAR [id number] 02/24/2022 [id number] / / [id number] Port Implant W/8f Poly Cath - [id number] Implanted:Qty: 1 on 10/15/2023 at [facility] CR BARD : PERIPHERAL VASCULAR [id number] 03/27/2025 [id number] / / [id number] documented as of this encounter Visit Diagnoses Diagnosis Hospital discharge follow-up- Primary Other follow-up examination Non-small cell lung cancer metastatic to bone [...] the patient have Health Care Power of Quality Control Microbiology Supervisor? No Full Code 05/23/2021 12:21 PM 05/24/2021 9:38 PM This order reflects the patients wishes and were consensually agreed upon. Question Answer Comments Discussion of Advance Directives occurred with: Patient Care Teams Corpsman Relationship Specialty Start Date End Date Matthew Herrmann PA-C [address] [place] [address] [phone] PCP - General Physician Refinery Operator Gas Plant 03/22/21 documented as of this encounter"
--- OUTSIDE RECORDS SUMMARY | 2024-04-11 14:50 | External Medical Summary | Summary of Care ---
Author Name Unknown Organization [facility] Address [address] [place] [address] Phone [phone] Care Team Providers Care Cement Crusher Operator Name Role Phone Matthew Herrmann PA-C Primary Care Provider [phone] Reason for Visit * Evaluate & Treat - Unlimited Visits (Within 10 days (routine)) - Authorized Specialty Diagnoses / Procedures Referred By Yuli seay Referred To Contact Hematology/Oncology / Hematology Oncology Diagnoses Malignant neoplasm of unspecified part of unspecified bronchus or lung (HCC) Yonathan Tomas CRNP [address] [place] [address] Referral ID Status Reason Start Date Expiration Date Visits Requested Visits Authorized [id number] Authorized Specialty Services Required 11/05/2023 11/04/2024 [id number] Encounter Details Date Type Department Care Team (Latest Contact Info) Description 11/21/2023 9:00 AM EST Hem/Onc Treatment Hematology Oncology [facility], [place] [address] [place] [address] [place], [facility] 4 Hem/Onc [facility] [place] [address] [place], [place] [phone] Chemotherapy adverse reaction, initial encounter*; Chemotherapy induced [...] mRNA, LNP-s, No Pre serve, 2-Dose Series (ChoozOn (d.b.a. Blue Kangaroo)) 09/23/2021 documented as of this encounter Social [...] 8:00 AM EST Office Visit Pulmonary Medicine, [facility] 132 [facility] [place] [address] Wyatt Gallegos MD [address] [facility] [address] 01/03/2024 8:45 AM EST Nurse Only Hematology Oncology [address] [address] [place], Nurse Lab Hem/Onc [address] [place] [address] 01/03/2024 9:30 AM EST Office Visit Hematology Oncology [address] [place] [address] Velia Segundo PA-C [address] [place] [address] 01/03/2024 10:30 AM EST Hem/Onc Treatment Hematology Oncology [facility], [place] [address] [place] [address] [place], Chair 4 Hem/Onc [address] [place] [address] 01/23/2024 7:45 AM EDT Nurse Only Hematology Oncology [facility], [place] [address] [place] [address] [place], Nurse Lab Hem/Onc [facility] [place] [address] 01/23/2024 8:30 AM EDT Office Visit Hematology Oncology [facility], [place] [address] [place] [address] Nicole Carrillo PA-C [address] [place] [address] 01/23/2024 9:30 AM EDT Hem/Onc Treatment Hematology Oncology [facility], [place] [address] [place] [address] [place], Chair 4 Hem/Onc [address] [place] [address] 01/24/2024 6:15 AM EDT Anticoagulation Pharmacy Call Center WB [address]60 [facility] [place] [address] [facility] 58 60 [facility] [place] [address] 02/13/2024 9:45 AM EDT Nurse Only Hematology Oncology [place] [address] [place] [address] [place], Nurse Lab Hem/Onc [address] [place] [address] 02/13/2024 10:30 AM EDT Office Visit Hematology Oncology [facility], [address] [phone] Kerri Foote MD [facility] [place] [address] [place], [place] [phone] 02/13/2024 11:30 AM EDT Hem/Onc Treatment Hematology Oncology [facility], [address] [phone] [place], Chair 4 Hem/Onc [address] [place] [phone] 02/25/2024 9:30 AM EDT Appointment Radiology, [address] [address] 05/06/2024 9:20 AM EDT Office Visit Neurology [facility] [place] 200 [facility] [place] [address] Kathy Pryor PA-C 200 [facility] [place] [phone] Health Maintenance Due Date Last Done Comments [...] this encounter Medical Devices Implanted Type Area Brickmason Device Identifier Shelf Expiration Date Model / Serial / Lot Power Port 8fr Sngl Lumen Plas - [id number] Implanted:Qty: 1 on 04/24/2021 at [facility] CR BARD : PERIPHERAL VASCULAR [id number] 02/24/2022 [id number] / / [id number] Port Implant W/8f Poly Cath - [id number] Implanted:Qty: 1 on 10/15/2023 at [facility] CR BARD : PERIPHERAL VASCULAR [id number] 03/27/2025 [id number] / / [id number] documented as of this encounter Results * [...] Foote MD LAB BLOOD ORDERAB LES LAB[facility]ATORY [facility] [address] [place] [address] * TSH WITH FREE T4 IF INDICATED (12/19/2023 12:15 PM EST) TSH 2.10 0.27 - 4.20 uIU/mL 12/19/2023 8:29 PM EST LABORATORY GM Blood Venous blood specimen / Unknown Venipuncture / Unknown 12/19/2023 12:15 PM EST 12/19/2023 12:15 PM EST Kerri Foote MD LAB BLOOD ORDERAB LES LABORATORY [facility] [address] [place] [address] documented in this encounter Visit Diagnoses Diagnosis [...] the patient have Health Care Power of Box Toe Cementer? No Full Code 05/23/2021 12:21 PM 05/24/2021 9:38 PM This order reflects the patients wishes and were consensually agreed upon. Question Answer Comments Discussion of Advance Directives occurred with: Patient Care Teams Cement Crusher Operator Relationship Specialty Start Date End Date Matthew Herrmann PA-C [address] [place] [address] PCP - General Physician Keymodule Assembly Supervisor 03/22/21 documented as of this encounter
--- OUTSIDE RECORDS SUMMARY | 2024-04-11 14:50 | External Medical Summary | Summary of Care ---
Author Name Unknown Organization [facility] Address [address] [place] [address] Phone [phone] Care Team Providers Care Business Office Representative Name Role Phone Matthew Herrmann PA-C Primary Care Provider [phone] Reason for Visit * Reason Onset Date Comments Hospital Follow-Up 12/16/2023 Encounter Details Date Type Department Care Team (Late st Contact Info) Description 12/16/2023 Telephone Hematology Oncology [facility] [place] [address] [place] [address] Kerri Foote MD [address] [place] [address] Hospital Follow-Up Allergies Active Allergy Reactions Criticality Noted Date Comments Carboplatin High 11/14/2021 Dyspnea, chest pain, hypoxia, sore throat, edema throat, flushing, mild hypotension Isosorbide Nitrate Other (Please comment) 07/22/2023 Headache documented as of this encounter (statuses as of 12/16/2023) Medications Medication Sig Dispensed Refills Start Date [...] as of this encounter (statuses as of 12/16/2023) Active Problems Problem Noted Date Diagnosed Date [...] as of this encounter (statuses as of 12/16/2023) Resolved Problems Problem Noted Date Diagnosed Date Resolved Date MSSA bacteremia 08/01/2021 08/07/2021 Sepsis 08/01/2021 08/07/2021 COPD, group B, by GOLD 2017 classification 05/08/2021 06/21/2021 Overview: Per COPD GOLD Classification Obstructive lung disease 04/10/2021 Overview: Per COPD GOLD Classification documented as of this encounter (statuses as of 12/16/2023) Immunizations Name Administration Dates Next Due COVID-19 mRNA, LNP-s, No Pre serve, 2-Dose Series (Pfizer) 09/23/2021 Pneumococcal Conjugate Vacci ne, 20-valent ([id number]) 12/12/2023(Deferred: Patient Refused - Renee Duarte MD) [...] encounter Miscellaneous Notes * Telephone Encounter - Yoselin Bhatt RN - 12/16/2023 2:03 PM EST HEMATOLOGY/ONCOLOGY HOSPITAL DISCHARGE FOLLOW-UP Call placed to patient to follow up after hospital discharge. Spoke with patient's . Dates patient was admitted: 12/04/23 to 12/12/23 with a primary diagnosis of Acute hypoxic respiratoryfailure. Currently has the following complaints: Still has some SOB with exertion, has home oxygen to use PRN . Denies any fevers or headaches All current medications reviewed with patient. Patient verbalizes understanding of regimen. Post discharge hospital visit is scheduled and patient is aware. documented in this encounter Plan of Treatment Upcoming Encounters Date Type Department Care Team ([facility] st Contact Info) Description 12/19/2023 12:40 PM EST Laboratory [facility] [phone] [address] [address] 12/19/2023 2:00 PM EST Office Visit [address] [phone] Matthew Herrmann PA-C [address] [place] [address] 12/20/2023 6:15 AM EST Anticoagulation Pharmacy Call Center WB [address] [facility] [place] [address] [facility] 58 60 [facility] [place] [address] 12/23/2023 8:30 AM EST Office Visit Hematology Oncology [facility] [place] [address] [place] [address] Kerri Foote MD [address] [place] [address] 01/02/2024 8:00 AM EST Office Visit Pulmonary Medicine, [facility] [address] [place] [address] Wyatt Gallegos MD [address] [place] [address] 05/06/2024 9:20 AM EDT Office Visit Neurology [facility] [address] [facility] [place] [address] Kathy Pryor PA-C [address] [facility] [place] [address] Health Maintenance Due Date Last Done Comments [...] this encounter Medical Devices Implanted Type Area Document Processor Device Identifier Shelf Expiration Date Model / Serial / Lot Power Port 8fr Sngl Lumen Plas - [id number] Implanted:Qty: 1 on 04/24/[address] [facility] CR BARD : PERIPHERAL VASCULAR [id number] 02/24/2022 [id number] / / [id number] Port Implant W/8f Poly Cath - [id number] Implanted:Qty: 1 on 10/15/[address] [facility] CR BARD : PERIPHERAL VASCULAR [id number] 03/27/2025 [id number] / / [id number] documented as of this encounter Advance Directives [...] the patient have Health Care Power of Sink Maker? No Full Code 05/23/2021 12:21 PM 05/24/2021 9:38 PM This order reflects the patients wishes and were consensually agreed upon. Question Answer Comments Discussion of Advance Directives occurred with: Patient Care Teams Business Office Representative Relationship Specialty Start Date End Date Matthew Herrmann PA-C [address] [place] [address] PCP - General Physician Business Banker 03/22/21 documented as of this encounter
--- OUTSIDE RECORDS SUMMARY | 2024-04-11 14:51 | External Medical Summary ---
Author Name Unknown Address Unknown Organization K01:[facility] [address] [facility] [address] [place] [address] Laboratory Report Ordering Provider Test Date Status RENETTA BASURTO 12/11/2023 13:19:00 Final Observation Date Value Abnormality Reference (Units ) Status BUN 12/11/2023 13:19:00 10 6-20 (mg/dL) Final Creatinine 12/11/2023 13:19:00 0.9 0.6-1.2 (mg/dL) Final Glomerular filtration rate/1.73 sq M.predicted [Volume Rate/Area] in Serum, Plasma or Blood by Creatinine-based formula (CKD-EPI) 12/11/2023 13:19:00 >90 >=60 (mL/min) Final eGFR is calculated based on the CKD-EPI 2020 equation SODIUM 12/11/2023 13:19:00 140 135-146 (m mol/L) Final Potassium 12/11/2023 13:19:00 3.9 3.5-5.1 (m mol/L) Final Cl 12/11/2023 13:19:00 106 98-107 (mm ol/L) Final CO2 12/11/2023 13:19:00 25 22-32 (mmo l/L) Final Anion gap 12/11/2023 13:19:00 9 7-15 (mmol /L) Final Glucose 12/11/2023 13:19:00 141 Above high normal 70 -120 (mg/dL) Final Calcium 12/11/2023 13:19:00 8.9 8.4-10.2 ( mg/dL) Final Performing Location [facility] [place] [address] [place] [address]
--- OUTSIDE RECORDS SUMMARY | 2024-04-11 14:51 | External Medical Summary ---
Author Name Unknown Address Unknown Organization K01:LAB[facility]ATORY [place] [address] [place] [address] Laboratory Report Ordering Provider Test Date Status RENETTA BASURTO 12/11/2023 13:19:00 Final Observation Date Value Abnormality Reference (Units ) Status WBC, Total 12/11/2023 13:19:00 7.64 4.00-10.80 (K/uL) Final RBC 12/11/2023 13:19:00 3.96 4.50-5.25 (M/uL) Final Hemoglobin 12/11/2023 13:19:00 12.5 Below low normal 14.0-16.8 (g/dL) Final HCT 12/11/2023 13:19:00 38.3 Below low normal 40.0-48.4 (%) Final MCV 12/11/2023 13:19:00 96.7 82.0-99.5 (fL) Final MCH 12/11/2023 13:19:00 31.6 27.0-34.0 (pg) Final MCHC 12/11/2023 13:19:00 32.6 32.0-36.0 (g/dL) Final RDW 12/11/2023 13:19:00 16.5 11.5-15.5 (%) Final Platelets 12/11/2023 13:19:00 477 Above high normal 140-400 (K/uL) Final MPV 12/11/2023 13:19:00 9.2 6.6-11.1 (fL) Final Nucleated erythrocytes/100 leukocytes [Ratio] in Blood by Automated count 12/11/2023 13:19:00 0 <=0 (/100 WBCs) Final Performing Location [facility] [place] [address] [place] [address]
--- OUTSIDE RECORDS SUMMARY | 2024-04-11 14:51 | External Medical Summary ---
Author Name Unknown Address Unknown Organization : Laboratory Report Ordering Provider Test Date Status GEORGE,ZAMORANO 12/11/2023 11:34:28 Final Observation Date Value Abnormality Reference (Units ) Status Galactomannan Ag [Units/volume] in Serum or Plasma by Immunoassay 12/11/2023 11:34:28 0.14 <0.50 Final Galactomannan Ag [Units/volume] in Serum or Plasma by Immunoassay 12/11/2023 11:34:28 Not Detected Not Detected Final A negative result does not e xclude invasive
aspergillosis. Follow-up testing may be
indicated for high-risk patients.
An Index <0.50 is considered to be negative.
An Index >=0.50 is considered to be positive.
A positive result for patients being treated with
piperacillin-tazobactam and other beta-lactam
antibiotics such as amoxicillin-clavulanate may be
a false positive due to cross reactivity and should
be viewed in conjunction with all clinical findings.
Positive results with this assay has also been reported
in patients infected with Penicillium marneffei and
Cryptococcus.

Test Performed at:
[facility]
[address] [facility]
[place] [address]
Gonsalo Silva M.D., Ph.D.,Director of Laboratories Performing Location
--- OUTSIDE RECORDS SUMMARY | 2024-04-11 14:51 | External Medical Summary ---
Author Name Unknown Address Unknown Organization K01:[facility] [place] [address] [place] [address] Laboratory Report Ordering Provider Test Date Status RENETTA BASURTO 12/12/2023 06:51:00 Final Observation Date Value Abnormality Reference (Units ) Status WBC, Total 12/12/2023 06:51:00 9.47 4.00-10.80 (K/uL) Final RBC 12/12/2023 06:51:00 3.70 4.50-5.25 (M/uL) Final Hemoglobin 12/12/2023 06:51:00 11.8 Below low normal 14.0-16.8 (g/dL) Final HCT 12/12/2023 06:51:00 34.9 Below low normal 40.0-48.4 (%) Final MCV 12/12/2023 06:51:00 94.3 82.0-99.5 (fL) Final MCH 12/12/2023 06:51:00 31.9 27.0-34.0 (pg) Final MCHC 12/12/2023 06:51:00 33.8 32.0-36.0 (g/dL) Final RDW 12/12/2023 06:51:00 16.0 11.5-15.5 (%) Final Platelets 12/12/2023 06:51:00 480 Above high normal 140-400 (K/uL) Final MPV 12/12/2023 06:51:00 9.1 6.6-11.1 (fL) Final Nucleated erythrocytes/100 leukocytes [Ratio] in Blood by Automated count 12/12/2023 06:51:00 0 <=0 (/100 WBCs) Final Performing Location [facility] [place] [address] [place] [address]
--- OUTSIDE RECORDS SUMMARY | 2024-04-11 14:51 | External Medical Summary | Summary of Care ---
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 No appt avail. Please assist patient with scheduling. Thank you. Encounter Details Date Type Department Care Team (Late st Contact Info) Description 12/12/2023 Telephone Infectious Disease, [place] [address] [place] [address] Specified, [place] No Resource [address] [place] [address] Hospital Follow-Up ([facility] 12/12/23 1 wk ... Allergies Active Allergy Reactions Criticality Noted Date Comments Carboplatin High 11/14/2021 Dyspnea, chest pain, hypoxia, sore throat, edema throat, flushing, mild hypotension Isosorbide Nitrate Other (Please comment) 07/22/2023 Headache documented as of this encounter (statuses as of 12/12/2023) Medications Medication Sig Dispensed Refills Start Date End Date Status Vitamin E 1000 UNIT Oral Capsule Take 1 Capsule by mouth in the morning. 0 Suspended Ondansetron HCl 8 MG Oral TabletIndications:Ch emotherapy induced nausea and vomiting Take 1 Tablet by mouth in the morning and 1 Tablet at noon and 1 Tablet before bedtime. 30 Tablet 3 05/09/2023 Suspended Additional Information Nitroglycerin 0.4 MG Sublingual Tablet Sublingual (Nitrostat) Place 1 Tablet under the tongue once as needed. As directed for chest pain 0 Suspended Culturelle Probiotics Oral Tablet Chewable Take 1 Tablet by mouth in the morning. 0 05/12/2023 Suspended amLODIPine Besylate 2.5 MG Oral Tablet (Norvasc) Take 1 Tablet by mouth in the morning. 90 Tablet 3 06/03/2023 Suspended Additional Information Atorvastatin Calcium 40 MG Oral Tablet (Lipitor)Indications :Acute CVA (cerebrovascular accident) (HCC) Take 1 Tablet by mouth daily. 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 90 Tablet 3 09/03/2023 Suspended Additional Information Topiramate 25 MG Oral Tablet (Topamax) Take 1 tablet nightly x 2 weeks then increase to 2 tablets nightly. 60 Tablet 5 09/10/2023 Suspended Additional Information Prochlorperazine Maleate 10 MG Oral Tablet (Compazine)Indicatio ns:Chemotherapy induced nausea and vomiting Take 1 Tablet by mouth every 6 hours as needed for Nausea. 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 Repeat with each treatment. 30 Tablet 3 09/30/2023 Suspended Additional Information Enoxaparin Sodium 80 MG/0.8ML Injection Solution Prefilled Syringe (Lovenox) Inject 80 mg under the skin in the morning and 80 mg before bedtime. 8 mL 2 10/11/2023 Suspended Additional Information ProAir HFA 108 (90 Base) MCG/ACT Inhalation Aerosol SolutionIndications: LRTI (lower respiratory tract infection) Inhale 2 Puffs by mouth every 4 hours as needed for Wheezing or Shortness of Breath. 18 g 0 10/29/2023 Suspended Additional Information Furosemide 20 MG Oral Tablet (Lasix)Indications:G eneralized edema due to fluid overload Take 1 Tablet by mouth in the morning. 30 Tablet 0 11/21/2023 Suspended Additional Information documented as of this encounter (statuses as of 12/12/2023) Active Problems Problem Noted Date Diagnosed Date [...] as of this encounter (statuses as of 12/12/2023) Resolved Problems Problem Noted Date Diagnosed Date Resolved Date MSSA bacteremia 08/01/2021 08/07/2021 Sepsis 08/01/2021 08/07/2021 COPD, group B, by GOLD 2017 classification 05/08/2021 06/21/2021 Overview: Per COPD GOLD Classification Obstructive lung disease 04/10/2021 Overview: Per COPD GOLD Classification documented as of this encounter (statuses as of 12/12/2023) Immunizations Name Administration Dates Next Due COVID-19 mRNA, LNP-s, No Pre serve, 2-Dose Series (Stackify) 09/23/2021 Pneumococcal Conjugate Vacci ne, 20-valent ([id number]) 12/12/2023(Deferred: Patient Refused - Renee Duarte MD) [...] encounter Miscellaneous Notes * Telephone Encounter - Nikia Alonso OSA - 12/12/2023 12:01 PM EST [facility] 12/12/23 1 wk f/u needed. No appt avail. Please assist patient with scheduling. Thank you. Serena Brothers 12/04/2023 6:13 PM ED to Hosp-Admission Description: 53 year old male Department: BP7 IP [facility] Message Patient Name: SERENA BROTHERS([id number]) Sex: Male : 1970 PCP: MONICA HERRMANN Center: [facility] Level of Service:06252 [place] EMERGENCY DEPT VISIT HIGH SEVERITY&THREAT FUNJ (TP01) Types of orders made on 12/12/2023: Communication, Diet, IP Discharge, IP Post Discharge , Lab, Medications, Respiratory, Supplies Order Date:12/12/2023 Ordering User:AHSAN ROMO [[id number]] Attending Provider:Lavell Jeter MD [[id number]] Authorizing Provider: Ahsan Romo MD [[id number]] Department:BP7 IP [facility][[id number]] Order Specific Information Order: RETURN APPT [CUSTOM: IP355] Order #: [id number] Priority: Routine Class: Nursing Unit Department (Single Entry) -> Infectious Disease Appt Needed Within: (Specify # of Days, Weeks, Months) -> 1 Wk Released on: 12/12/2023 11:50 AM Priority: Routine Class: Nursing Unit Department (Single Entry) -> Infectious Disease Appt Needed Within: (Specify # of Days, Weeks, Months) -> 1 Wk Released on: 12/12/2023 11:50 AM documented in this encounter Plan of Treatment Upcoming Encounters Date Type Department Care Team (Late st Contact Info) Description 12/13/2023 6:45 AM EST Anticoagulation Pharmacy Call Center WB [phone] [facility] [place] [phone] Ccps, [facility] [phone] [facility] [place] [phone] 12/19/2023 2:00 PM EST Office Visit [facility] [address] [place] [phone] Monica Herrmann PA-C [address] [place] [phone] 12/23/2023 8:30 AM EST Office Visit Hematology Oncology [facility] [address] [place] [address] Kerri Foote MD [address], [place] [phone] 01/02/2024 8:00 AM EST Office Visit Pulmonary Medicine, [facility] [address] [facility] [place] [address] Wyatt Gallegos MD [address] [place] [facility] [place] [address] 05/06/2024 9:20 AM EDT Office Visit Neurology [facility] [place] [address] [place] [address] Kathy Pryor PA-C [address] [facility] [place] [phone] Health Maintenance Due Date Last Done Comments Hepatitis B (1 of 3 - 3-dose series) 1970 Pneumococcal Vaccine: Pediatrics (0 to 5 Years) and At-Risk Patients (6 to 64 Years) (1 - PCV) 02/18/1974 DTaP,Tdap,and Td Vaccines (1 - Tdap) 02/18/1987 Zoster Vaccines (1 of 2) 02/18/1987 [...] this encounter Medical Devices Implanted Type Area Suction Plate Carrier Cleaner Device Identifier Shelf Expiration Date Model / Serial / Lot Power Port 8fr Sngl Lumen Plas - [id number] Implanted:Qty: 1 on 04/24/2021 at [facility] : PERIPHERAL VASCULAR [id number] 02/24/2022 [id number] / / [id number] Port Implant W/8f Poly Cath - [id number] Implanted:Qty: 1 on 10/15/2023 at [facility] CR [employer]ARD : PERIPHERAL VASCULAR [id number] 03/27/2025 [id number] / / [id number] documented as of this encounter Advance Directives Latest Code Status on File Code Status Date Activated Date Inactivated Comments Full Code 12/04/2023 8:24 PM This order reflects the patients wishes [...] the patient have Health Care Power of Hub Borer? No Full Code 05/23/2021 12:21 PM 05/24/2021 9:38 PM This order reflects the patients wishes and were consensually agreed upon. Question Answer Comments Discussion of Advance Directives occurred with: Patient Care Teams Hydroelectric Plant Operator Relationship Specialty Start Date End Date Monica Herrmann PA-C [address] [place] [address] [place] [address] PCP - General Physician Peanut Cleaner 03/22/21 documented as of this encounter
--- OUTSIDE RECORDS SUMMARY | 2024-04-11 14:51 | External Medical Summary ---
Author Name Unknown Address Unknown Organization K01:[facility] [place] [address] [address] [facility] [place] [address] Laboratory Report Ordering Provider Test Date Status GEORGE,ZAMORANO 12/11/2023 11:34:28 Final Observation Date Value Abnormality Reference (Units) Status Bacteria identified in Specimen by Culture 12/11/2023 11:34:28 < 1,000 colonies/ml (no growth) Final Gram Stain 12/11/2023 11:34:28 No polymorphonuclear leukocytes seen Final Gram Stain 12/11/2023 11:34:28 No organisms seen Final Test: Culture, Bronchial, Qu antitative
Specimen Source: Lung, Left upper lobe
Specimen Type: Bronchoalveolar Lavage (BAL)
Specimen Date: 12/11/2023 11:34 AM
Result Date: 12/13/2023 7:52 AM
Result Status: Final result
Resulting Lab: [facility]
[address]
[place] [address]

CULTURE

< 1,000 colonies/ml (no growth)

STAIN

No polymorphonuclear leukocytes seen

No organisms seen

null Performing Location LABORATORY [facility] [address] [facility] [address]
--- OUTSIDE RECORDS SUMMARY | 2024-04-11 14:51 | External Medical Summary ---
Author Name Unknown Address Unknown Organization K01:[facility] - [address] [place] [address] Laboratory Report Ordering Provider Test Date Status RENETTA BASURTO 12/12/2023 06:51:00 Final Observation Date Value Abnormality Reference (Units ) Status Phosphate 12/12/2023 06:51:00 2.6 2.5-4.8 (m g/dL) Final Performing Location [facility] - [address] [place] [address]
--- OUTSIDE RECORDS SUMMARY | 2024-04-11 14:51 | External Medical Summary ---
Author Name Unknown Address Unknown Organization K01:[facility] - [address] [facility] [address] [place] [address] Laboratory Report Ordering Provider Test Date Status RENETTA BASURTO 12/12/2023 06:51:00 Final Observation Date Value Abnormality Reference (Units ) Status Magnesium 12/12/2023 06:51:00 2.6 1.5-2.6 (m g/dL) Final Performing Location [facility] - [address] [place] [address]
--- OUTSIDE RECORDS SUMMARY | 2024-04-11 14:51 | External Medical Summary ---
Author Name Unknown Address Unknown Organization K01:[facility] - [address] [facility] [address] [place] [id number] Laboratory Report Ordering Provider Test Date Status GEORGEJAUN LAWSON 12/11/2023 11:34:28 Final Unable to evaluate fully due to supply shortage. Observation Date Value Abnormality Reference (Units ) Status Bacteria identified in Specimen by Culture 12/11/2023 11:34:28 No Legionella species isolated Final Test: Culture, Legionella
Specimen Source: Lung, Left upper lobe
Specimen Type: Bronchoalveolar Lavage (BAL)
Specimen Date: 12/11/2023 11:34 AM
Result Date: 12/21/2023 12:18 PM
Result Status: Final result
Resulting Lab: [facility]
[address]
[place] [id number]

CULTURE

No Legionella species isolated

Unable to evaluate fully due to supply shortage.

null Performing Location [facility] - [address] [facility] [place] [place] [id number]
--- OUTSIDE RECORDS SUMMARY | 2024-04-11 14:51 | External Medical Summary ---
Author Name Unknown Address Unknown Organization K01:[facility] - [address] [address] [place] [address] Laboratory Report Ordering Provider Test Date Status RENETTA BASURTO 12/11/2023 13:19:00 Final Observation Date Value Abnormality Reference (Units ) Status Magnesium 12/11/2023 13:19:00 2.6 1.5-2.6 (m g/dL) Final Performing Location [facility] - [address] [place] [address]
--- OUTSIDE RECORDS SUMMARY | 2024-04-11 14:51 | External Medical Summary ---
Author Name Unknown Address Unknown Organization K01:[facility]ORY [facility] - [address] [place] [address] Laboratory Report Ordering Provider Test Date Status GEORGE,ZAMORANO 12/11/2023 11:34:28 Final Observation Date Value Abnormality Reference (Units ) Status Bacteria identified in Specimen by Culture 12/11/2023 11:34:28 No acid fast bacilli isolated Final Microscopic observation [Identifier] in Specimen by Rhodamine-auramine fluorochrome stain 12/11/2023 11:34:28 No acid fast bacilli seen Final Test: Culture, AFB
Speci men Source: Lung, Left upper lobe
Specimen Type: Bronchoalveolar Lavage (BAL)
Specimen Date: 12/11/2023 11:34 AM
Result Date: 02/11/2024 11:25 AM
Result Status: Final result
Resulting Lab: [facility]
[address]
[place] [address]

CULTURE

No acid fast bacilli isolated

STAIN

No acid fast bacilli seen

null Performing Location [facility]ATORY [facility] - [address] [place] [address]
--- OUTSIDE RECORDS SUMMARY | 2024-04-11 14:51 | External Medical Summary ---
Author Name Unknown Address Unknown Organization K01:[facility] - [address] [place] [address] Laboratory Report Ordering Provider Test Date Status RENETTA BASURTO 12/11/2023 13:19:00 Final Observation Date Value Abnormality Reference (Units ) Status Phosphate 12/11/2023 13:19:00 3.0 2.5-4.8 (m g/dL) Final Performing Location [facility] - [address] [place] [address]
--- OUTSIDE RECORDS SUMMARY | 2024-04-11 14:51 | External Medical Summary ---
Author Name Unknown Address Unknown Organization K01:[facility] [address] [place] [address] Laboratory Report Ordering Provider Test Date Status GEORGE,ZAMORANO 12/11/2023 11:34:28 Final Observation Date Value Abnormality Reference (Units ) Status Pneumocystis sp identified in Specimen by Light microscopy 12/11/2023 11:34:28 No Pneumocystis jirovecii (formerly P. carinii) seen No Pneumocystis jirovecii (formerly P. carinii) seen Final Performing Location [facility] - [address] [place] [address]
--- OUTSIDE RECORDS SUMMARY | 2024-04-11 14:51 | External Medical Summary ---
Author Name Unknown Address Unknown Organization K01:[facility] [place] [address] [place] [id number] Laboratory Report Ordering Provider Test Date Status GEORGE,ZAMORANO 12/11/2023 11:34:28 Final Unable to evaluate fully due to supply shortage.

null Observation Date Value Abnormality Reference (Units) Status Bacteria identified in Specimen by Culture 12/11/2023 11:34:28 No Aerobic Actinomycetes isolated Final Gram Stain 12/11/2023 11:34:28 No Gram positive bacilli resembling Nocardia/aerobic Actinomycetes seen. Final Test: Culture, Nocardia
Specimen Source: Lung, Left upper lobe
Specimen Type: Bronchoalveolar Lavage (BAL)
Specimen Date: 12/11/2023 11:34 AM
Result Date: 01/03/2024 7:51 AM
Result Status: Final result
Resulting Lab: [facility]
[address]
[facility] [address]

CULTURE

No Aerobic Actinomycetes isolated

Unable to evaluate fully due to supply shortage.

STAIN

No Gram positive bacilli resembling Nocardia/aerobic Actinomycetes seen.

null Performing Location [facility] [place] [address] [facility] [address]
--- OUTSIDE RECORDS SUMMARY | 2024-04-11 14:51 | External Medical Summary ---
Author Name Unknown Address Unknown Organization K01:[facility]ORY [facility] [place] - [address] [address] [place] [address] Laboratory Report Ordering Provider Test Date Status RENETTA BASURTO 12/12/2023 06:51:00 Final Observation Date Value Abnormality Reference (Units ) Status BUN 12/12/2023 06:51:00 15 6-20 (mg/dL) Final Creatinine 12/12/2023 06:51:00 0.8 0.6-1.2 (mg/dL) Final Glomerular filtration rate/1.73 sq M.predicted [Volume Rate/Area] in Serum, Plasma or Blood by Creatinine-based formula (CKD-EPI) 12/12/2023 06:51:00 >90 >=60 (mL/min) Final eGFR is calculated based on the CKD-EPI 2020 equation SODIUM 12/12/2023 06:51:00 142 135-146 (m mol/L) Final Potassium 12/12/2023 06:51:00 3.5 3.5-5.1 (m mol/L) Final Cl 12/12/2023 06:51:00 108 Above high normal 98 -107 (mmol/L) Final CO2 12/12/2023 06:51:00 23 22-32 (mmo l/L) Final Anion gap 12/12/2023 06:51:00 11 7-15 (mmol /L) Final Glucose 12/12/2023 06:51:00 120 70-120 (mg /dL) Final Calcium 12/12/2023 06:51:00 8.8 8.4-10.2 ( mg/dL) Final Performing Location LAB[facility]ORY [facility] [place] - [address] [place] [address]
--- OUTSIDE RECORDS SUMMARY | 2024-04-11 14:51 | External Medical Summary | Summary of Care ---
Author Name Unknown Organization [facility] Address [address] [place] [address] Phone [phone] Care Team Providers Care Fruit Canner Name Role Phone Lukeharry Monica Narayanan PA-C Primary Care Provider [phone] Reason for Visit * Reason Comments Fever Headache * Auth/Cert Specialty Diagnoses / Procedures Referred By Yuli t Referred To Contact Referral ID Status Reason Start Date Expiration Date Visits Re quested Visits Authorized [id number] Encounter Details Date Type Department Care Team (Latest Contact Info) Description 12/04/2023 6:13 PM EST - 12/12/2023 12:41 PM EST Hospital Encounter [id number] [facility], [facility] 7th Floor [address], [place] [id number] Lavell Jeter MD [address], [place] [id number] Amanda Green DO [address] [facility] [place] [address] Fernando Salcido MD [address] [facility] [place] [address] Viet Mccartney MD [address] [facility] [place] [address] Ahsan Duran MD [address] [facility] [place] [address] Various: KATINA MONTIEL Discharge Disposition: Home - Self Care Allergies [...] the morning. 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 30 Tablet 5 09/23/2023 12/12/19 24 Discontinued Azithromycin 250 MG Oral Tablet (Zithromax)Indicati ons:LRTI (lower respiratory tract infection) Take 2 tabs by mouth on the first day, then 1 tab daily on days two through five 6 Tablet 0 10/29/2023 12/12/19 24 Discontinued Amoxicillin-Pot Clavulanate 875-125 MG Oral Tablet (Augmentin)Indicati ons:LRTI (lower respiratory tract infection) Take 1 Tablet by mouth in the morning and 1 Tablet before bedtime. Do all this for 10 days. 20 Tablet 0 10/29/2023 12/12/19 24 Discontinued Amoxicillin-Pot Clavulanate 875-125 MG Oral Tablet (Augmentin) Take 1 Tablet by mouth in the morning and 1 Tablet before bedtime. Do all this for 5 days. 10 Tablet 0 12/02/2023 12/12/19 24 Discontinued Doxycycline Hyclate 100 MG Oral Capsule Take 1 Capsule by mouth in the morning and 1 Capsule before bedtime. Do all this for 5 days. 10 Capsule 0 12/02/2023 12/12/19 24 Discontinued documented as of this encounter (statuses [...] (Pfizer) 09/23/2021 Pneumococcal Conjugate Vacci ne, 20-valent ([id number]) 12/12/2023(Deferred: Patient Refused - Renee Duarte MD) [...] Sign Reading Time Taken Comments Blood Pressure 126/69 12/12/2023 10:32 AM EST Pulse 81 12/12/2023 10:32 AM EST Temperature 36.4 C (97.5 F) 12/12/2023 10:[address] Respiratory Rate 20 12/12/2023 6:25 AM EST Oxygen Saturation 100% 12/12/2023 6:25 AM EST Inhaled Oxygen Concentration - - Weight 110.7 kg (244 lb) 12/05/2023 6:09 PM EST Height 180.3 cm (5' 11") 12/05/2023 6:09 PM EST Body Mass Index 34.03 12/05/2023 6:09 PM EST documented in this [...] No 08/01/2021 documented as of this encounter Discharge Summaries * Ahsan Duran MD - 12/12/2023 11:51 AM EST [facility] [address] Admission Date: 12/04/2023 Discharge Date: 12/12/2023 RECOMMENDED TO DO FOR NEXT PROVIDER(S): Please follow up on bronch studies REASON(S) FOR MEDICATION CHANGE(S): none DISPOSITION ON DISCHARGE: Home with Services ([employer]-oxygen needs) Active Hospital Problems Diagnosis *Principal Diagnosis - Acute hypoxic respiratory failure (HCC) Malnutrition of moderate degree (HCC) Pneumonia History of pulmonary embolism Immunodeficiency (HCC) Dyspnea on exertion Primary malignant neoplasm of left lower lobe of lung (HCC) Resolved Hospital Problems No resolved problems to display. 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 Started with SOB with exertion over weekend with low grade fever which came and went. Saturday night could not catch breath and was experiencing shortness of breath while at rest. Called director of compensation oncologist, was seen in ER Mon. Had CT scan and xray. No clot, diagnosed with pneumonia, given antibiotics (amoxicillin and doxycycline) taking BID since Sat. Today reports that he is not feeling any better. Very fatigued and lethargic. Still running fever, yesterday 101 all day. Today temp 100.5, feels cold, no shaking chills, headache which has had sinceFri. Taking tylenol every 6 hrs. Patient and his called oncology office and they were told to come to [facility] ED for IV anti-biotics. Has significant orthopnea and has noted some increased ankle swelling. But denies any other symptoms such as N/V/D, abdominal pain, chest pain, dizziness, or palpitations. Of note, Last chemo treatment 11/21. Was taking Decadron 4 mg PO daily, however, this was discontinued on 11/24. No taper completed. Back in July was admitted to [facility] for CVA. Thought to be due to hypercoagulability in setting ofCOVID and malignancy. Also, had elevated troponin and concern for ACS, however underwent Cardiac MRI which showed normal Coronary arteries. Elevated troponins thought to be due to vasospasm per outpat ient cardiology note. Patient wishes to be a FULL CODE and for his to be his surrogate decision maker in the event he cannot make decisions for himself. Review of Systems: Review of systems was conducted with pertinent positives and negatives as statedabove, otherwise negative. ED Course: Presenting Vitals: Afebrile, normotensive, nontachy, saturating well on RA Significant Labs: K 3.3, Cr 0.9, WBCs wnl, RVP negative, Imaging: CT PE: No PE, Interval worsening of scattered infiltrates in the lungs, which may represent pneumonia, No significant interval change of a 2.6 cm nodule in the left lower lobe Meds Given: Potassium, Tylenol, Vanc/Zosyn HOSPITAL COURSE (focused): Since he was admitted to the hospital he was started on broad-spectrum IV antibiotics for multifocal pneumonia and suspected hypersensitivity pneumonitis. Infectious Disease was consulted due to his immunosuppressed state and his antibiotics were narrowed down to ceftriaxone for community-acquired pneumonia. Thoracic medicine and Oncology were consulted with concerns for inflammatory lung infiltrates secondary to chemotherapy versus keytruda. During his course in the hospital his respiratory status improved on IV antibiotics. A bronchoscopy was done without any significant findings. His prelim cultures from bronch were negative. Final cultures and cytology were pending at the time of discharge. He had an ambulatory pulse oximetry that did not show any significant desaturations. Nocturnaloximetry showed desaturations and was discharged oxygen at night. He needs to follow up with thoracic medicine and Oncology as an outpatient for follow-up of results. He was discharged in stable condition. Operations & Procedures: bronchoscopy Complications: none significant Significant Lab and Imaging Results: As mentioned above Results Pending at Discharge: Lab Results Pending at Discharge: ASPERGILLUS ANTIGEN, EIA, BAL Routine Q FEVER (COXIELLA BURNETII)AB (IGG,M)W/REFL TITERS Routine BASIC METABOLIC PANEL Routine CBC Routine MAGNESIUM Routine PHOSPHORUS Routine MEDICATION UPDATES AT DISCHARGE CHANGE how you take these medications INSTRUCTIONS dexAMETHasone 4 MG Tabs Tablet Commonly known as: Decadron What changed: Another medication with the same name was removed. Continue taking this medication, and follow the directions you see here. Take 2 tabs in AM with food x 3 days AFTER chemo and as directed prior to chemo. CONTINUE taking these medications INSTRUCTIONS amLODIPine 2.5 MG Tablet Commonly known as: Norvasc Take 1 Tablet by mouth in the morning. atorvaSTATin 40 MG Tablet Commonly known as: Lipitor Take 1 Tablet by mouth daily. Culturelle Probiotics Chew Take 1 Tablet by mouth in the morning. Enoxaparin 80 MG/0.8ML injection Commonly known as: Lovenox Inject 80 mg under the skin in the morning and 80 mg before bedtime. folic acid 1 MG Tablet Take 1 Tablet by mouth in the morning. Furosemide 20 MG Tablet Commonly known as: Lasix Take 1 Tablet by mouth in the morning. Nitroglycerin 0.4 MG Subl Commonly known as: Nitrostat Place 1 Tablet under the tongue once as needed. As directed for chest pain OLANZapine 5 MG Tablet Commonly known as: zyPREXA Take 1 tab at bedtime starting the night of chemo x 4 nights. Repeat with each treatment. ondansetron 8 MG Tablet Commonly known as: Zofran Take 1 Tablet by mouth in the morning and 1 Tablet at noon and 1 Tablet before bedtime. ProAir HFA 108 (90 Base) MCG/ACT Aers Inhale 2 Puffs by mouth every 4 hours as needed for Wheezing or Shortness of Breath. prochlorperazine 10 MG Tablet Commonly known as: Compazine Take 1 Tablet by mouth every 6 hours as needed for Nausea. topiramate 25 MG Tabs Commonly known as: Topamax Take 1 tablet nightly x 2 weeks then increase to 2 tablets nightly. Vitamin E 1000 units Capsule Take 1 Capsule by mouth in the morning. STOP taking these medications amoxicillin-clavulanate 875-125 MG per Tablet Commonly known as: Augmentin Azithromycin 250 MG Tablet Commonly known as: Zithromax doxycycline hyclate 100 MG Capsule SCHEDULED FOLLOW-UP: Future Appointments Appt Date/Time Provider Department 12/13/2023 6:45 AM [facility] Call Center 12/19/2023 2:00 PM Monica Spivey PA-C [facility] 12/23/2023 8:30 AM Kerri Foote MD Hematology Oncology [facility] 01/02/2024 8:00 AM Wyatt Gallegos MD Pulmonary Medicine, [facility] 05/06/2024 9:20 AM Kathy Pryor PA-C Neurology [facility] Other Information Indwelling Devices: LINES ALL Duration Implanted IV Device Right Chest 58 days Airway 1 day Vital Signs (last recorded): Most Recent Systolic BP: 126 mmHg (12/12/23 1032) Most Recent Diastolic BP: 69 mmHg (12/12/23 1032) Pulse: 81 (12/12/23 1032) Resp: 20 (12/12/23 0625) Most Recent Temperature: 36.39 C (12/12/23 1032) Weight: 110.7 kg (244 lb) (12/05/23 1809) SpO2: 100 % (12/12/23 0625) O2 flow rate: 1 L/MIN (12/12/23 0625) Allergies: Carboplatin and Isosorbide nitrate Activity: as tolerated Diet: age appropriate diet Code Status: Full Code Condition on Discharge: stable Isolation status: None Cognition: normal HOSPITAL CONSULTS ORDERED: ONCOLOGY CONSULT IP INFECTIOUS DISEASE CONSULT IP THORACIC MEDICINE / PULMONOLOGY CONSULT IP REFERRING PHYSICIAN: Ref: [id number]] NO STREET ADDRESS AVAILABLE None (office) None (fax) PRIMARY CARE PROVIDER: PCP: Monica Spivey PA-C [address] [place] [address] / [facility] [phone] (office) [phone] (fax) Note: To contact a physician responsible for this patients hospital care, please call [employer] [phone]. I certify this patient is confined to the home and needs intermittent shelter care, physical therapy and/or speech therapy, or continues to need occupational therapy. The patient is under my care and I have authorized services on this plan of care. The clinical findings of decrease in functional mobility secondary to decreased strength, decreased balance, and decreased endurance due to recent hospitalization and overall medical condition support the need for home health, and the patientdemonstrates a considerable and taxing effort when attempting to leave the home. The patient had a [id number] encounter with an allowed provider type on 12/12/2023 and the encounter was related to the primary reason for home health care. Under situations in whichI am an acute/post acute facility physician who will not be following the patient's plan of care, Iauthorized services on this plan of care and I transfer the patient for plan of care certification to the primary care physician named below who will follow the patient and update the plan of care. Primary care physician Monica Spivey PA-C I spent a total of 35 minutes coordinating, documenting, and providing care for this patient excluding time spent in the performance of separately billed services. documented in this encounter Discharge Instructions * Discharge Instr - AVS* Ahsan Duran MD - 12/12/2023 11:51 AM EST Discharge Date: 12/12/2023 The information below provides you with the instructions and the list of medications you need to betaking following discharge from the hospital. If you have any questions, please ask before leaving. If you have questions after leaving, you can reach us at the numbers below. YOUR HOSPITAL PROVIDERS: Discharging Provider: Ahsan Duran MD Provider Department: Hospital Medicine To reach this Provider Saturday through Saturday (8:00 AM to 4:30 PM) for any questions or test results: Call [phone] For after-hours concerns: Call [phone] and have your provider paged, or the provider director of compensation for the Department of Hospital Medicine paged. Please note, the discharging provider will not be able to provide you with any medications refills.Please discuss these with your primary care provider. Worsening Symptoms: If you have new symptoms, or your symptoms get worse, please contact your Discharge Provider or Primary Care Provider (PCP). If these providers are not available, you can go to your local [facility] or [facility] Clinic during their business hours. In an EMERGENCY situation: Call 911 or go to the nearest emergency room. A BRIEF SUMMARY OF YOUR HOSPITAL STAY: You came to the hospital with: complaint of shortness of breath Your main diagnosis at discharge was: suspected community acquired pneumonia vs chemotherapy induced Operations & Procedures performed: Bronchoscopy Complications: none significant Inpatient test results that are pending at discharge: final bronch cultures, cytology results. Please fu with oncology team and thoracic medicine team to discuss the results once they are finalized Advance Directive Documented: Advance Directive Does the Patient have an Advance Directive? Not Addressed YOUR FOLLOW UP APPOINTMENTS: Primary Care Provider Information: PCP: Monica Spivey PA-C [address] [place] [phone] (office) [phone] (fax) An appointment was requested with your PCP (Monica Spivey PA-C) within 3 days. (Please take this form to this visit with your primary care physician.) You need the following studies in the future: none INSTRUCTIONS: Diet: Previous diet Activity: As tolerated documented in this encounter Progress Notes * Ahsan Duran MD - 12/11/2023 2:15 PM EST Images from the original note were not included. ATTENDING PROGRESS NOTE - Hospital Medicine [facility] [address] Name: John Mancilla Location: [facility] B735/A Date: 12/11/2023 Time: 2:15 PM SUBJECTIVE: No acute events overnight . His breathing feels better but has some difficulty when ambulating and wanted to see how he does while ambulating. Tolerated bronch well . Denies any chest pain . Has been afebrile ROS: All other systems were reviewed and negative other than stated above Most Recent Vital Signs: BP: 131 mmHg/82 mmHg (12/11/231311) Pulse: 80 (12/11/231311) Temp: 36.78 C (12/11/231311) Temp Summary: Temp Min: 36.3 C (97.3 F) Max: 37.4 C (99.3 F) SpO2: 97 % (12/11/231311) O2 flow rate: 2 L/MIN (12/11/231311) Supplemental O2 Delivery: Nasal Cannula (12/11/231311) Vital Signs Last 24 Hours: Systolic BP: Most Recent Systolic BP Av.5 mmHg Min: 119 mmHg Max: 142 mmHg Temperature: Most Recent Temperature Av.8 C Min: 36.28 C Max: 37.39 C Pulse: Pulse Av Min: 80 Max: 90 Respirations: Resp Av.4 Min: 16 Max: 31 SpO2: SpO2 Av.9 % Min: 91 % Max: 97 % Intake/Output: Intake/Output Summary (Last 24 hours) at 12/11/2023 1415 Last data filed at 12/11/2023 1140 Gross per 24 hour Intake 300 ml Output -- Net 300 ml Weight: Patient Vitals for the past 240 hrs: Weight 12/05/231808 110.7 kg (244 lb) Weight: 110.7 kg (244 lb) (12/05/231808) PHYSICAL EXAMINATION: General : No acute distress, alert, awake. HEENT: Normocephalic, atraumatic Neck : supple Cardiovascular: s1 s2 normal Lungs: occasional rales, no wheezing Abdomen: Soft Extremities: no significant edema Neuro: alert ,oriented LABS Blood Gas: Lab results within last 7 days (see chart for full results) Units 12/05/23 0048 12/04/23 1825 pH, Venous units 7.448* 7.384 pCO2, Venous mmHg 35.9* 47.0 pO2, Venous mmHg 48.1 22.2* Base Excess, Venous mmol/L 1.2 2.5* Chemistry Panel: Lab results within last 7 days (see chart for full results) Units 12/11/23 1319 12/10/23 0812 12/09/23 0910 12/08/23 0755 12/07/23 0744 12/06/23 0804 12/05/23 0527 Sodium mmol/L 140 139 138 139 140 139 140 Potassium mmol/L 3.9 3.5 3.2* 3.6 3.6 3.2* 3.1* Chloride mmol/L 106 104 102 103 105 106 106 CO2 mmol/L 25 23 24 25 24 23 BUN mg/dL 10 10 10 8 8 9 10 Creatinine mg/dL 0.9 0.9 0.9 1.0 0.9 0.9 0.9 Estimated Glomerular Filtration Rate mL/min >90 >90 >90 88 >90 >90 >90 Glucose mg/dL 141* 127* 149* 132* 139* 115 125* Calcium mg/dL 8.9 8.7 8.5 8.6 8.4 8.3* 8.1* Magnesium mg/dL 2.6 2.6 2.6 2.6 2.3 2.3 2.2 Phosphorus mg/dL 3.0 2.6 2.1* 2.6 2.9 1.9* 3.4 Anion Gap mmol/L 9 12 12 11 11 11 11 Complete Blood Count: Lab results within last 7 days (see chart for full results) Units 12/11/23 1319 12/10/23 0812 12/09/23 0910 12/08/23 0755 12/07/23 0744 12/06/23 0804 12/05/23 0527 WBC K/uL 7.64 7.21 6.59 6.52 5.82 5.48 4.87 HGB g/dL 12.5* 13.0* 12.5* 12.6* 12.1* 11.4* 12.2* HCT % 38.3* 39.6* 37.5* 38.0* 36.9* 34.1* 36.1* PLT K/uL 477* 499* 451* 419* 353 331 289 MCV fL 96.7 97.1 95.9 95.2 96.1 95.0 95.0 Cardiac Studies: Lab results within last 7 days (see chart for full results) Units 12/04/23 1825 Troponin T, High Sensitivity ng/L 11 Coagulation Studies: No results in the last 7 days - inpatent use only Liver Function Panel: Lab results within last 7 days (see chart for full results) Units 12/04/23 1825 Albumin g/dL 4.1 Protein g/dL 7.1 Bilirubin, Total mg/dL 0.4 AST U/L 35 ALT U/L 68* Alkaline Phosphatase U/L 81 Infectious Studies: No results in the last 7 days - inpatent use only Cultures: reviewed. Lab results within last 7 days (see chart for full results) Units 12/04/23 1834 Coronavirus SARS-CoV-2 by PCR Negative Recent Cultures (2 Weeks) 12/05/2023 12/04/2023 12/04/2023 12/02/2023 12/02/2023 09/04/2021 08/02/2021 08/01/2021 10:54 AM 6:30 PM 6:25 PM 10:07 AM 10:03 AM 4:29 PM 8:18 AM 7:30 AM STAIN DESCRIPTION No purulence detected. <25 neutrophils/low power microscopic field. -- -- -- -- -- -- Aerobic bottle Gram positive cocci in clusters Occasional Polymorphonuclear leukocytes Aerobic bottle Gram positive cocci in clusters Few Gram positive cocci in clusters Rare Budding yeast with pseudohyphae CULTURE GROWTH Moderate Yeast -- -- -- -- -- -- -- BLOOD CULTURE GROWTH -- No growth No growth No growth No growth -- No growth Aerobic bottle Staphylococcus aureus No growth Aerobic bottle Staphylococcus aureus QUANT URINE CULTURE GROWTH -- -- -- -- -- < 100 colonies/ml (no growth) -- -- Radiographic Studies (last 72 hours): reviewed. No imaging results in the last 72 hours IMPRESSION and PLAN: Principal Problem: Acute hypoxic respiratory failure (HCC) (POA: Unknown) Active Problems: Primary malignant neoplasm of left lower lobe of lung (HCC) (POA: Yes) Dyspnea on exertion (POA: Yes) Immunodeficiency (HCC) (POA: Yes) History of pulmonary embolism (POA: Yes) Pneumonia (POA: Yes) Malnutrition of moderate degree (HCC) (POA: Unknown) Resolved Problems: * No resolved hospital problems. * POA = Present On Admission Acute hypoxic respiratory failure Multifocal pneumonia/?pneumonitis secondary to chemotherapy Stage IV NSCLC (last chemo 11/21) -Legionella antigen negative, streptococcal pneumoniae antigen negative, MRI without metastasis presence of chronic right MCA territory infarct Oncology following -infectious Disease recommends BAL to check for bacterial culture, fungal culture, AFB, PJP, coxiella burnetti pcr -coxiella antibody pending - s/p bronch on 12/11/23 . Awaiting bronch cultures. Completed ceftriaxone course. Will monitor off antibiotics for now - sputum cultures show Occasional Polymorphonuclear leukocytes Few Gram positive cocci in clusters Rare Budding yeast with pseudohyphae Check ambulatory pulse ox and noc ox today Hypokalemia improved Hypophosphatemia improved Supplemented will monitor GERD Started Prilosec Chronic Problems: HTN: Continue [employer] Norvasc HLD: Continue [employer] Lipitor DVT/PE: can be restarted if ok from thoracic medicine stand point Headaches: Continue [employer] Topamax Orders Placed This Encounter Procedures Consistent Carbohydrate Diet : Number of Choices: 4 (60 grams) I have examined the patient and consistent with the dietitian's findings found malnutrition presentof Moderate (12/09/23 1433) degree. This is consistent with such due to Fat loss;Muscle loss;Inadequate energy intake (12/09/23 1433). I have also reviewed and agree with the dietitian's plan of carewhich include Oral nutritional supplement ordered/adjusted (12/09/23 1433). Please refer to the documented findings and plan of care. The patient's service consisted of an evaluation. I have seen and evaluated the patient. I spent a total of 45 minutes coordinating, documenting, and providing care for this patient excluding time spent in the performance of separately billed services or time spent by another provider/QHP. * Viet Mccartney MD - 12/10/2023 12:05 PM EST Images from the original note were not included. [facility] B735/A INTERVAL HISTORY: Patient was seen and examined he was resting comfortably. Reports of episode of nausea, continues to have loss of taste, having poor appetite. Still gets winded and short of breath his oxygen dropped at night. Continues to have productive cough. No high-grade fever reported, reports of abdominal distention and gas Daughter was by the bedside Objective Physical Exam Most Recent Vital Signs: BP: 126 mmHg/67 mmHg (12/10/23 1009) Pulse: 85 (12/10/23 1009) Temp: 37 C (12/10/23 1009) Temp Summary: Temp Min: 36.1 C (97 F) Max: 37.7 C (99.9 F) SpO2: 96 % (12/10/23 1022) O2 flow rate: 2 L/MIN (12/10/23 1022) Supplemental O2 Delivery: Nasal Cannula (12/10/23 1022) Constitutional: NAD, AAO x 3 Neck: Supple, Normal ROM Eyes: Sclera normal, PERRLA Cardiovascular: RRR, no murmurs/rubs/gallops appreciated Pulmonary: Presence of rales and rhonchi GI: Nontender to palpation, normal bowel sounds, soft Extremities: No lower extremity edema, no clubbing Skin: Appears warm and dry Neurological: AAO x 3, No gross focal neurologic deficit on exam Peripheral Line Left Antecubital 20 Gauge (Active) Number of days: 6 Implanted IV Device Right Chest (Active) Number of days: 56 STUDIES: Encounter Orders Labs and other studies reviewed with pertinent findings noted below: Chemistry with potassium 3.5, phosphorus 2.6, others within normal limit CBC without leukocytosis hemoglobin 13 platelets 499 Recent Cultures (2 Weeks) 12/05/2023 12/04/2023 12/04/2023 12/02/2023 12/02/2023 09/04/2021 08/02/2021 08/01/2021 10:54 AM 6:30 PM 6:25 PM 10:07 AM 10:03 AM 4:29 PM 8:18 AM 7:30 AM STAIN DESCRIPTION No purulence detected. <25 neutrophils/low power microscopic field. -- -- -- -- -- -- Aerobic bottle Gram positive cocci in clusters Occasional Polymorphonuclear leukocytes Aerobic bottle Gram positive cocci in clusters Few Gram positive cocci in clusters Rare Budding yeast with pseudohyphae CULTURE GROWTH Moderate Yeast -- -- -- -- -- -- -- BLOOD CULTURE GROWTH -- No growth No growth No growth No growth -- No growth Aerobic bottle Staphylococcus aureus No growth Aerobic bottle Staphylococcus aureus QUANT URINE CULTURE GROWTH -- -- -- -- -- < 100 colonies/ml (no growth) -- -- Assessment and Plan IMPRESSION : Principal Problem: Acute hypoxic respiratory failure (HCC) Active Problems: Primary malignant neoplasm of left lower lobe of lung (HCC) Dyspnea on exertion Immunodeficiency (HCC) History of pulmonary embolism Pneumonia Malnutrition of moderate degree (HCC) Resolved Problems: * No resolved hospital problems. * I have examined the patient and consistent with the dietitian's findings found malnutrition presentof Moderate (12/09/23 1433) degree. This is consistent with such due to Fat loss;Muscle loss;Inadequate energy intake (12/09/23 143). I have also reviewed and agree with the dietitian's plan of carewhich include Oral nutritional supplement ordered/adjusted (12/09/23 143). 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 Patient was on longer duration of dexamethasone. Patient admitted for acute hypoxic respiratory failure likely in setting of multifocal community-acquired pneumonia versus pneumonitis or inflammatory lung changes secondary to chemotherapy. Patient is awaiting bronchoscopy DIFFERENTIAL AND PLAN: Acute hypoxic respiratory failure Multifocal pneumonia/?pneumonitis secondary to chemotherapy Stage IV NSCLC (last chemo 11/21) -Legionella antigen negative, streptococcal pneumoniae antigen negative, -negative negative Patient driven respiratory protocol, flutter therapy MRI without metastasis presence of chronic right MCA territory infarct Oncology following -infectious Disease recommends BAL to check for bacterial culture, fungal culture, AFB, PJP, coxiella burnetti pcr -coxiella antibody pending, and continue ceftriaxone for now -plan for bronchoscopy tomorrow, NPO from midnight Hypokalemia improved Hypophosphatemia improved Supplemented will monitor GERD Started Prilosec Chronic Problems: HTN: Continue COMMANDING OFFICER GARAGE Norvasc HLD: Continue COMMANDING OFF[employer]ER GARAGE Lipitor DVT/PE: Continue COMMANDING OFFICER GARAGE Lovenox 80 BID Headaches: Continue COMMANDING OFFICER GARAGE Topamax PHARMACOLOGIC VTE PROPHYLAXIS: Enoxaparin CODE STATUS: Full Code EXPECTED DISCHARGE DATE: 12/12/2023 I spent a total of 53 minutes coordinating, documenting, and providing care for this patient excluding time spent in the performance of separately billed services. * Grayson Bello PA-C - 12/09/2023 7:42 PM EST PROGRESS NOTE - Oncology [facility] [place]-[address] [place] [id number] Name: John Mancilla Location: [facility] B735/A Date: 12/09/2023 Time: 7:42 PM SUBJECTIVE: Seen w , feeling ok and says SOB slightly improved but not convinced. Hypoxic into 80's just going to BR and not walking out of the room. NO O2 at rest in bed but SOB OOB. Small fever overnight. Denies n/v/d/cp/ OBJECTIVE: Most Recent Vital Signs: BP: 127 mmHg/75 mmHg (12/09/231914) Pulse: 91 (12/09/231914) Temp: 36.72 C (12/09/231914) Temp Summary: Temp Min: 36.6 C (97.9 F) Max: 38 C (100.4 F) SpO2: 95 % (12/09/231914) O2 flow rate: 0 L/MIN (12/09/231914) Supplemental O2 Delivery: Room Air, None (12/09/231914) Vital Signs Last 24 Hours: Systolic BP: Most Recent Systolic BP Av.8 mmHg Min: 124 mmHg Max: 132 mmHg Temperature: Most Recent Temperature Av.2 C Min: 36.61 C Max: 38 C Pulse: Pulse Av.2 Min: 84 Max: 95 Respirations: Resp Av Min: 18 Max: 22 SpO2: SpO2 Av.2 % Min: 86 % Max: 96 % Constitutional: NAD, some dyspnea w talking but off O2 and able to answer ROS Head: NC/AT, no masses Ears/Nose/Eyes: No nasal drainage, Sclera clear and EOMI, Pupils equal and round Mouth/Throat: No lip/oral lesions, dentition good, MMM Neck: supple, trachea midline, no lymphadenopathy CV: Regular rhythm and rate, no murmur appreciated, +2 radial and posterior tib pulses, no peripheral edema Respiratory: Normal resp rate and effort on RA, some scatt rhonchi, RLL crackles Abdomen: Soft, nontender, nondistended, normoactive bowel sounds Musculoskeletal: Normal ROM in extremities, normal strength, No joint pain, no signs of trauma Skin: Dry, warm, intact, no rashes or masses noticed Neuro: AAOx3, no focal neurological deficits, follow commands Psych: Appropriate mood/affect, answers question appropriately LABS: CHEMISTRY: BUN, Creatinine, GFR Estimated, Sodium, Potassium, Chloride, Carbon Dioxide, Glucose, Calcium (see below for most recent value): Lab Results Component Value Date/Time BUN 10 12/09/2023 09:10 AM BUN 15 01/03/2017 10:13 AM CREAT 0.9 12/09/2023 09:10 AM CREAT 1.0 01/03/2017 10:13 AM GFRESTIMATED >60.0 01/03/2017 10:13 AM NA 138 12/09/2023 09:10 AM NA 141 01/03/2017 10:13 AM POTASSIUM 3.2 (L) 12/09/2023 09:10 AM POTASSIUM 3.8 01/03/2017 10:13 AM CL 102 12/09/2023 09:10 AM CL 101 01/03/2017 10:13 AM CO2 24 12/09/2023 09:10 AM CO2 28 01/03/2017 10:13 AM CA 8.5 12/09/2023 09:10 AM CA 8.9 01/03/2017 10:13 AM BLOOD COUNT: WBC, Hgb, Platelets (see below for most recent value): Lab Results Component Value Date/Time WBC 6.59 12/09/2023 09:10 AM WBC 5.03 01/09/2019 12:02 PM HGB 12.5 (L) 12/09/2023 09:10 AM HGB 13.8 (L) 01/09/2019 12:02 PM PLT 451 (H) 12/09/2023 09:10 AM PLT 222 01/09/2019 12:02 PM RADIOLOGY: IMPRESSION 1. No evidence for pulmonary embolism. 2. Interval worsening of scattered infiltrates in the lungs, which may represent pneumonia. 3. No significant interval change of a 2.6 cm nodule in the left lower lobe. 4. Interval improvement of retroperitoneal adenopathy. 5. 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 ASSESSMENT: Stage IV Metastatic adenocarcinoma NSCLC Acute hypoxic respiratory failure, on 2 L nasal cannula Multifocal pneumonia verses pneumonitis History of DVT and PE, on Lovenox Headaches RECOMMENDATIONS: Mr. Mancilla is a 53 y/o w a pmhx of PE and stroke on lovenox w a pmhx of metastatic NSCLung ca currently on carbo/paclitaxel/ pembro and admitted w SOB and fevers. Bacterial vs viral vs atypical vs keytruda pneumonitis Seen in follow up today. Although SOB slightly improved he is only OOB to BR and in 80's after walking back from BR. Still w RLL crackles. noted on admit that he has been taking decadron 4 mg daily since August (was only for duringchemo but took it daily) so some concern for early PJP He still has RAMIREZ and are bothering him, would ask neurology for opinion. Still on CTX Given concern for possible taxol or keytruda pneumonitis vs atypical pna or PJP and need for possible steroids in the near term future, would recommend bronchoscopy for infectious BAL and biopsy if indicated. Pt and agreeable and pulm to likely due on Sat. Seen and discussed w Dr. Godinez. I have reviewed the advanced practitioner's documentation on the date of service referenced in note, and I agree with, and take responsibility for the plan of care. I spent a total of 40 minutes coordinating, documenting, and providing care for this patient excluding time spent in the performance of separately billed services or time spent by another provider/QHP. Associated attestation - Betzy Godinez MD - 12/09/2023 8:36 PM EST I have reviewed the advanced practitioner's documentation on the date of service referenced in note, and I agree with, and take responsibility for the plan of care. I spent a total of 30 minutes coordinating, documenting, and providing care for this patient excluding time spent in the performance of separately billed services or time spent by another provider/QHP. * Amish Pinto MD - 12/09/2023 2:41 PM EST Images from the original note were not included. PROGRESS NOTE - Infectious Disease [address] [id number] Name: John Mancilla Location: [facility] [place] B735/A Date: 12/09/2023 Time: 2:42 PM SUBJECTIVE: Intermittently febrile, still experiencing shortness of breath and hypoxia with ambulation. On CTX. OBJECTIVE: Most Recent Vital Signs: BP: 126 mmHg/82 mmHg (12/09/23 06) Pulse: 86 (12/09/23641) Temp: 37.22 C (12/09/23 0642) Temp Summary: Temp Min: 36.6 C (97.9 F) Max: 38 C (100.4 F) SpO2: 93 % (12/09/23 1238) O2 flow rate: 2 L/MIN (12/09/23 1018) Supplemental O2 Delivery: Room Air, None (12/09/23 1238) Vital Signs Last 24 Hours: Systolic BP: Most Recent Systolic BP Av mmHg Min: 122 mmHg Max: 126 mmHg Temperature: Most Recent Temperature Av.3 C Min: 36.61 C Max: 38 C Pulse: Pulse Av.3 Min: 84 Max: 95 Respirations: Resp Av Min: 18 Max: 22 SpO2: SpO2 Av.3 % Min: 86 % Max: 95 % General: alert, healthy and no distress HEENT: No cervical, preauricular, submandibular lymphadenopathy, oral mucosa unremarkable Cardio: RRR, well perfused, no murmurs/rubs/gallops, no JVD Pulm: CTA bilaterally, normal resp effort GI: Abdomen soft, non-tender, positive bowel sounds : deferred MSK: joints unremarkable without erythema or swelling Extremities: No pitting edema, well perfused Neuro: AAOx3, cranial nerves grossly intact Psych: Normal mood/affect Skin: no rashes noted LABS: Serum creatinine: 0.9 mg/dL 12/09/23 0910 Estimated creatinine clearance: 117.4 mL/min CBC Results: Results for orders placed or performed during the hospital encounter of 12/04/23 CBC Result Value Ref Range WBC 6.59 4.00 - 10.80 K/uL RBC 3.91 4.50 - 5.25 M/uL HGB 12.5 (L) 14.0 - 16.8 g/dL HCT 37.5 (L) 40.0 - 48.4 % MCV 95.9 82.0 - 99.5 fL MCH 32.0 27.0 - 34.0 pg MCHC 33.3 32.0 - 36.0 g/dL RDW 16.4 11.5 - 15.5 % PLT 451 (H) 140 - 400 K/uL MPV 9.4 6.6 - 11.1 fL nRBCs 0 <=0 /100 WBCs MICROBIOLOGY DATA: Recent Cultures (2 Weeks) 12/05/2023 12/04/2023 12/04/2023 12/02/2023 12/02/2023 09/04/2021 08/02/2021 08/01/2021 10:54 AM 6:30 PM 6:25 PM 10:07 AM 10:03 AM 4:29 PM 8:18 AM 7:30 AM STAIN DESCRIPTION No purulence detected. <25 neutrophils/low power microscopic field. -- -- -- -- -- -- Aerobic bottle Gram positive cocci in clusters Occasional Polymorphonuclear leukocytes Aerobic bottle Gram positive cocci in clusters Few Gram positive cocci in clusters Rare Budding yeast with pseudohyphae CULTURE GROWTH Moderate Yeast -- -- -- -- -- -- -- BLOOD CULTURE GROWTH -- No growth to date No growth to date No growth No growth -- No growth Aerobic bottle Staphylococcus aureus No growth Aerobic bottle Staphylococcus aureus QUANT URINE CULTURE GROWTH -- -- -- -- -- < 100 colonies/ml (no growth) -- -- IMAGING: Reviewed IMPRESSION: #Fever #PNA #NSCLC on chemotherapy #SOB Patient presenting with 1 week of intermittent fever, cough, headaches. Workup thus far has been unremarkable. It is unclear if this is an infectious source or related to his chemotherapy or Keytruda. Sputum culture unremarkable. He has improved slightly on ceftriaxone however continues to have intermittent fevers. He does report that he recently butchered pigs increasing risk for q-fever. RECOMMENDATIONS: -recommend BAL to check for bacterial culture, fungal culture, AFB, PJP, coxiella burnetti pcr -Coxiella antibody ordered -Continue ctx for now Associated attestation - Willy Conner MD - 12/09/2023 4:58 PM EST I did not see the patient, but I have reviewed the trainee documentation and was readily available on date of service. No real clinical improvement with empiric CTX. Need to consider bronch/BAL. Willy Conner MD * Kentrell Dee MD - 12/09/2023 1:46 PM EST Patient evaluated at bedside. No acute events overnight. Patient notes slight improvement in his dyspnea at rest. However there were a couple of episodes yesterday and today when he found himself catching his breath with exertion. He was briefly placed on 2 L of oxygen during these occasions. Patient also admits to significant anxiety. Last vital signs show temperature of 37.2, BP of 126/82, heart rate of 86, respiratory rate of 18, saturating 95% on 2 L of oxygen via nasal cannula. Examination shows bilateral equal air entry with no crackles. Heart sounds regular with no murmurs Abdomen soft nontender nondistended Extremities with 1+ pitting edema. Review of labs show potassium of 3.2. Hemoglobin of 12.5 with no leukocytosis. Infectious workup shows moderate yeast from respiratory cultures. Review of imaging shows CT chest from 12/02/2023 with no evidence of pulmonary embolism. Scattered infiltrates with peripheral predominance particularly in the upper lobes. Repeat chest x-ray from 12/04/2023 shows no significant changes compared to prior x-rays. ASSESSMENT 1. Acute hypoxic respiratory failure 2. Bilateral pulmonary infiltrates, infectious versus inflammatory infiltrates on background of Keytruda use 3. Anxiety 4. History of metastatic [id number] lung carcinoma Plan 1. Patient's clinical picture shows some improvement since presentation. His dyspnea has improved while at rest however patient is more concerned about episodes of dyspnea that happened when he is exerting himself. Radiology does not show progression in his infiltrates. 2. I went over implications of available data and possible diagnostic options with the patient and his at the bedside. The differential would be community-acquired pneumonia versus organizing pneumonia from Keytruda use. We could theoretically pursue a bronchoscopy in the next 1-2 days, however based on appearance and location of infiltrates, positive yield from bronchoscopy at this time will be quite low. Alternatively we could pursue empiric antibacterial therapy for community- acquired pneumonia, hold off Keytruda and repeat CT scan in 8 weeks' time and plan further diagnostic workup based on CT scanfindings. Patient and his are extremely nervous about pursuing a bronchoscopy at this time and they are leaning towards 2nd option of repeating CT scan in 8 weeks. I would encourage discussion with patient's Oncology team regarding feasibility of this approach. Pulmonary team will be available, please call us with any further questions. I spent a total of 65 minutes coordinating, documenting, and providing care for this patient excluding time spent in the performance of separately billed services. * Viet Mccartney MD - 12/09/2023 7:49 AM EST Images from the original note were not included. [facility] B735/A INTERVAL HISTORY: Patient was seen and examined he was resting comfortably. Patient feels his breathing has improved at rest but he still gets winded even on exertion walking to the bathroom. Had an episode of worsening shortness of breath yesterday. Having low-grade fever. Denies constipation nausea vomiting was by the bedside updated on regarding current plan Objective Physical Exam Most Recent Vital Signs: BP: 126 mmHg/82 mmHg (12/09/23641) Pulse: 86 (12/09/23641) Temp: 37.22 C (12/09/23641) Temp Summary: Temp Min: 36.6 C (97.9 F) Max: 38 C (100.4 F) SpO2: 95 % (12/09/23641) O2 flow rate: 2 L/MIN (12/09/23641) Supplemental O2 Delivery: Nasal Cannula (12/09/23641) Constitutional: NAD, AAO x 3 Neck: Supple, Normal ROM Eyes: Sclera normal, PERRLA Cardiovascular: RRR, no murmurs/rubs/gallops appreciated Pulmonary: Presence of occasional rales and rhonchi GI: Nontender to palpation, normal bowel sounds, soft Extremities: No lower extremity edema, no clubbing Skin: Appears warm and dry Neurological: AAO x 3, No gross focal neurologic deficit on exam Peripheral Line Left Antecubital 20 Gauge (Active) Number of days: 5 Implanted IV Device Right Chest (Active) Number of days: 55 STUDIES: Encounter Orders Labs and other studies reviewed with pertinent findings noted below: Chemistry with potassium 3.6, phosphorus 2.9, calcium 8.4 others within normal limit CBC without leukocytosis hemoglobin 12.1 platelets 353 Recent Cultures (2 Weeks) 12/05/2023 12/04/2023 12/04/2023 12/02/2023 12/02/2023 09/04/2021 08/02/2021 08/01/2021 10:54 AM 6:30 PM 6:25 PM 10:07 AM 10:03 AM 4:29 PM 8:18 AM 7:30 AM STAIN DESCRIPTION No purulence detected. <25 neutrophils/low power microscopic field. -- -- -- -- -- -- Aerobic bottle Gram positive cocci in clusters Occasional Polymorphonuclear leukocytes Aerobic bottle Gram positive cocci in clusters Few Gram positive cocci in clusters Rare Budding yeast with pseudohyphae CULTURE GROWTH Moderate Yeast -- -- -- -- -- -- -- BLOOD CULTURE GROWTH -- No growth to date No growth to date No growth No growth -- No growth Aerobic bottle Staphylococcus aureus No growth Aerobic bottle Staphylococcus aureus QUANT URINE CULTURE GROWTH -- -- -- -- -- < 100 colonies/ml (no growth) -- -- Assessment and Plan IMPRESSION : Principal Problem: Acute hypoxic respiratory failure (HCC) Active Problems: Primary malignant neoplasm of left lower lobe of lung (HCC) Dyspnea on exertion Immunodeficiency (HCC) History of pulmonary embolism Pneumonia Resolved Problems: * No resolved hospital problems. 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 Patient was on longer duration of dexamethasone. DIFFERENTIAL AND PLAN: Acute hypoxic respiratory failure Multifocal pneumonia/?pneumonitis secondary to chemotherapy Stage IV NSCLC (last chemo 11/21) currently on chemotherapy -Legionella antigen negative, streptococcal pneumoniae antigen pending, sputum culture growing someGram-positive cocci Patient driven respiratory protocol, flutter therapy MRI without metastasis presence of chronic right MCA territory infarct Oncology following -pulmonary followed up today, patient and family leaning towards bronchoscopy outpatient -infectious Disease recommends BAL to check for bacterial culture, fungal culture, AFB, PJP, coxiella burnetti pcr -coxiella antibody, and continue ceftriaxone for now -Oncology to discuss with patient and family regarding bronchoscopy Hypokalemia Hypophosphatemia Supplemented will monitor Chronic Problems: HTN: 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 * Viet Mccartney MD - 12/08/2023 7:47 AM EST Images from the original note were not included. [facility] B735/A INTERVAL HISTORY: Patient was seen and examined he was resting comfortably. Patient and by the bedside, patient feels somewhat improved in his breathing. But still gets winded when he walks. Feel he is at his baseline yet. No fever no chills appetite is poor. Objective Physical Exam Most Recent Vital Signs: BP: 131 mmHg/88 mmHg (12/08/23726) Pulse: 88 (12/08/23726) Temp: 36.72 C (12/08/23726) Temp Summary: Temp Min: 36.7 C (98.1 F) Max: 37.5 C (99.5 F) SpO2: 91 % (12/08/23726) O2 flow rate: 2 L/MIN (12/08/23253) Supplemental O2 Delivery: Room Air, None (12/08/23726) Constitutional: NAD, AAO x 3 Neck: Supple, Normal ROM Eyes: Sclera normal, PERRLA Cardiovascular: RRR, no murmurs/rubs/gallops appreciated Pulmonary: Lungs clear to auscultation bilaterally, No rales/rhonchi/wheezes appreciated GI: Nontender to palpation, normal bowel sounds, soft Extremities: No lower extremity edema, no clubbing Skin: Appears warm and dry Neurological: AAO x 3, No gross focal neurologic deficit on exam Peripheral Line Left Antecubital 20 Gauge (Active) Number of days: 4 Implanted IV Device Right Chest (Active) Number of days: 54 STUDIES: Encounter Orders Labs and other studies reviewed with pertinent findings noted below: Chemistry with potassium 3.6, phosphorus 2.9, calcium 8.4 others within normal limit CBC without leukocytosis hemoglobin 12.1 platelets 353 Recent Cultures (2 Weeks) 12/05/2023 12/04/2023 12/04/2023 12/02/2023 12/02/2023 09/04/2021 08/02/2021 08/01/2021 10:54 AM 6:30 PM 6:25 PM 10:07 AM 10:03 AM 4:29 PM 8:18 AM 7:30 AM STAIN DESCRIPTION No purulence detected. <25 neutrophils/low power microscopic field. -- -- -- -- -- -- Aerobic bottle Gram positive cocci in clusters Occasional Polymorphonuclear leukocytes Aerobic bottle Gram positive cocci in clusters Few Gram positive cocci in clusters Rare Budding yeast with pseudohyphae CULTURE GROWTH Moderate Yeast -- -- -- -- -- -- -- BLOOD CULTURE GROWTH -- No growth to date No growth to date No growth No growth -- No growth Aerobic bottle Staphylococcus aureus No growth Aerobic bottle Staphylococcus aureus QUANT URINE CULTURE GROWTH -- -- -- -- -- < 100 colonies/ml (no growth) -- -- Assessment and Plan IMPRESSION : Principal Problem: Acute hypoxic respiratory failure (HCC) Active Problems: Primary malignant neoplasm of left lower lobe of lung (HCC) Dyspnea on exertion Immunodeficiency (HCC) History of pulmonary embolism Pneumonia Resolved Problems: * No resolved hospital problems. 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 Patient was on longer duration of dexamethasone. DIFFERENTIAL AND PLAN: Acute hypoxic respiratory failure Multifocal pneumonia/?pneumonitis secondary to chemotherapy Stage IV NSCLC (last chemo 11/21) currently on chemotherapy Legionella antigen negative, streptococcal pneumoniae antigen pending, sputum culture growing some Gram-positive bacteremia Infectious Disease recommend ceftriaxone 2 g every 24 hours for cap, if no significant clinical improvement in 24-48 hours recommended BAL Thoracic medicine following, currently bronchoscopy is on hold as per Pulmonary Medicine Patient driven respiratory protocol, flutter therapy MRI without metastasis presence of chronic right MCA territory infarct Oncology following Will consider IV Lasix for concern of volume overload Infectious disease will follow-up tomorrow Hypokalemia resolved Hypophosphatemia resolved Supplemented will monitor Chronic Problems: HTN: 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 * Viet Mccartney MD - 12/07/2023 7:39 AM EST Images from the original note were not included. [facility] B735/A INTERVAL HISTORY: Patient was seen and examined he was resting comfortably. Had episode of vomiting this morning while he was taking potassium phosphate. He reports somewhat improved shortness of breath. Still gets short of breath even ongoing to the bathroom. No high-grade fever reported. Daughter was by the bedside. Objective Physical Exam Most Recent Vital Signs: BP: 132 mmHg/87 mmHg (12/07/23638) Pulse: 96 (12/07/23638) Temp: 37.5 C (12/07/23638) Temp Summary: Temp Min: 36.7 C (98.1 F) Max: 37.8 C (100 F) SpO2: 92 % (12/07/23638) O2 flow rate: 0 L/MIN (12/07/23638) Supplemental O2 Delivery: Room Air, None (12/07/23638) Constitutional: NAD, AAO x 3 Neck: Supple, Normal ROM Eyes: Sclera normal, PERRLA Cardiovascular: RRR, no murmurs/rubs/gallops appreciated Pulmonary: Lungs clear to auscultation bilaterally, No rales/rhonchi/wheezes appreciated GI: Nontender to palpation, normal bowel sounds, soft Extremities: No lower extremity edema, no clubbing Skin: Appears warm and dry Neurological: AAO x 3, No gross focal neurologic deficit on exam Peripheral Line Left Antecubital 20 Gauge (Active) Number of days: 3 Implanted IV Device Right Chest (Active) Number of days: 53 STUDIES: Encounter Orders Labs and other studies reviewed with pertinent findings noted below: Chemistry with potassium 3.6, phosphorus 2.9, calcium 8.4 others within normal limit CBC without leukocytosis hemoglobin 12.1 platelets 353 Recent Cultures (2 Weeks) 12/05/2023 12/04/2023 12/04/2023 12/02/2023 12/02/2023 09/04/2021 08/02/2021 08/01/2021 10:54 AM 6:30 PM 6:25 PM 10:07 AM 10:03 AM 4:29 PM 8:18 AM 7:30 AM STAIN DESCRIPTION No purulence detected. <25 neutrophils/low power microscopic field. -- -- -- -- -- -- Aerobic bottle Gram positive cocci in clusters Occasional Polymorphonuclear leukocytes Aerobic bottle Gram positive cocci in clusters Few Gram positive cocci in clusters Rare Budding yeast with pseudohyphae CULTURE GROWTH Moderate Yeast -- -- -- -- -- -- -- BLOOD CULTURE GROWTH -- No growth to date No growth to date No growth to date No growth to date -- No growth Aerobic bottle Staphylococcus aureus No growth Aerobic bottle Staphylococcus aureus QUANT URINE CULTURE GROWTH -- -- -- -- -- < 100 colonies/ml (no growth) -- -- Assessment and Plan IMPRESSION : Principal Problem: Acute hypoxic respiratory failure (HCC) Active Problems: Primary malignant neoplasm of left lower lobe of lung (HCC) Dyspnea on exertion Immunodeficiency (HCC) History of pulmonary embolism Pneumonia Resolved Problems: * No resolved hospital problems. 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 Patient was on longer duration of dexamethasone. DIFFERENTIAL AND PLAN: Acute hypoxic respiratory failure Multifocal pneumonia/?pneumonitis secondary to chemotherapy Stage IV NSCLC (last chemo 11/21) currently on chemotherapy Legionella antigen negative, streptococcal pneumoniae antigen pending, sputum culture growing some Gram-positive bacteremia Infectious Disease recommend ceftriaxone 2 g every 24 hours for cap, if no significant clinical improvement in 24-48 hours recommended BAL Thoracic medicine following, currently bronchoscopy is on hold as per Pulmonary Medicine Patient driven respiratory protocol, flutter therapy MRI without metastasis presence of chronic right MCA territory infarct Oncology following Will consider IV Lasix for concern of volume overload Hypokalemia Hypophosphatemia Supplemented will monitor Chronic Problems: HTN: 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 * Pj Chi MD - 12/06/2023 1:53 PM EST PROGRESS NOTE - Infectious Disease [address] [address] Name: John Mancilla Location: [facility] B735/A Date: 12/06/2023 Time: 1:53 PM SUBJECTIVE: Patient seen and examined at bedside. Yesterday evening T-max 100.6 F, WBC stable 5.48 this morning. Patient states his respiratory status slightly improved, he no longer feels significantly short of breath. Apparently had an episode of anxiety yesterday evening, this is development has occurred over the course of his cancer treatment. Remains on room air. Denies any N/V/D, CP/palpitations, chills, vision changes, numbness tingling. OBJECTIVE: Most Recent Vital Signs: BP: 124 mmHg/72 mmHg (12/06/23 1111) Pulse: 82 (12/06/23 1111) Temp: 36.89 C (12/06/23 1111) Temp Summary: Temp Min: 36.9 C (98.4 F) Max: 38.1 C (100.6 F) SpO2: 96 % (12/06/23 1111) O2 flow rate: 0 L/MIN (12/06/23 0218) Supplemental O2 Delivery: Room Air, None (12/06/23 1111) Vital Signs Last 24 Hours: Systolic BP: Most Recent Systolic BP Av.3 mmHg Min: 111 mmHg Max: 133 mmHg Temperature: Most Recent Temperature Av.6 C Min: 36.89 C Max: 38.11 C Pulse: Pulse Av.7 Min: 82 Max: 91 Respirations: Resp Av.3 Min: 20 Max: 28 SpO2: SpO2 Av % Min: 90 % Max: 98 % General: Appears in no acute distress Eyes: Pupils equal and reactive to light, no photophobia Cardiovascular: S1/S2, no murmurs appreciated Respiratory: Equal air exchange bilaterally, no wheezing/rhonchi/rales Abdomen: Soft, nontender to palpation, non-distended Musculoskeletal: No gross deformity, no neck stiffness Skin: No rashes, lesions Neurological: AAOx3, clear speech, sensory intact, motor 5/5, no focality, LABS: Labs reviewed as indicated below: Lab results within last 7 days (see chart for full results) Units 12/06/23 0804 12/05/23 0527 12/04/23 1825 12/02/23 1003 WBC K/uL 5.48 4.87 5.06 4.44 Creatinine mg/dL 0.9 0.9 0.9 1.0 BUN mg/dL 9 10 12 8 Estimated Glomerular Filtration Rate mL/min >90 >90 >90 >90 MICROBIOLOGY DATA: 12/02 Bclx: No growth to date 12/04 Bclx: no growth to date 12/05 Sputum culture: No purulence, stain with few GPC clusters/rare budding yeast with pseudohyphae 12/04 Strep P. Urine antigen pending, legionella Uag negative 12/04 RPP: negative IMAGING: CTA Chest: 1. No evidence for pulmonary embolism. 2. Interval worsening of scattered infiltrates in the lungs, which may represent pneumonia. 3. No significant interval change of a 2.6 cm nodule in the left lower lobe. 4. Interval improvement of retroperitoneal adenopathy. 5. 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 IMPRESSION: 53-year-old man with active NSCLC on chemotherapy with bony Mets cervical spine presenting for approximately 1 week intermittent fever/cough/headaches. Patient had exposure to daily dexamethasone from the months of August to October 2023. Differential at this time includes community-acquired pneumonia, drug-induced pneumonitis, more nefarious pathologies which may present to to his immunocompromise state. Okay to treat as community-acquired pneumonia for this time, if pending sputum cultures non revealing we will likely recommend need for BAL to further define the causative agent. Bilateral upper lobe opacities likely CAP vs. Drug-induced pneumonitis, r/o opportunistic organisms NSCLC on chemotherapy, with bony metastasis Hx PE on lovenox Hx CVA RECOMMENDATIONS: -Continue Ceftriaxone 2g IV qd -sputum culture with stain GPC in clusters in likely Charity -If sputum culture is not revealing will have to consider BAL -ID will continue to follow Case discussed with ID Attending Dr. Ubaldo Chi MD Infectious Disease PGY-4 [facility] Associated attestation - Willy Conner MD - 12/06/2023 5:07 PM EST I saw and evaluated the patient today. I have reviewed the trainee note and agree. Unclear if any improvement with empiric CTX just yet. Respiratory culture unremarkable so far. Will continue empiricCTX, but if no improvement in next 24-48 hours, will need to consider bronch/BAL. Willy Conner MD * Viet Mccartney MD - 12/06/2023 7:57 AM EST Images from the original note were not included. [facility] B735/A INTERVAL HISTORY: Patient was seen and examined he was resting comfortably in the bed he also reported he had some shortness of breaths on and off cough. present at the bedside reported patient likely had anxiety episode in the morning which significantly improved with small dose of Ativan. Nausea also improved, also reports of headache Having low-grade fever no new onset numbness tingling paresthesia or weakness Objective Physical Exam Most Recent Vital Signs: BP: 133 mmHg/85 mmHg (12/06/23 0506) Pulse: 90 (12/06/23 0506) Temp: 37.5 C (12/06/23 0549) Temp Summary: Temp Min: 37.5 C (99.5 F) Max: 38.1 C (100.6 F) SpO2: 97 % (12/06/23505) O2 flow rate: 0 L/MIN (12/06/23 021) Supplemental O2 Delivery: Room Air, None (12/06/23 050) Constitutional: NAD, AAO x 3 Neck: Supple, Normal ROM Eyes: Sclera normal, PERRLA Cardiovascular: RRR, no murmurs/rubs/gallops appreciated Pulmonary: Lungs clear to auscultation bilaterally, No rales/rhonchi/wheezes appreciated GI: Nontender to palpation, normal bowel sounds, soft Extremities: No lower extremity edema, no clubbing Skin: Appears warm and dry Neurological: AAO x 3, No gross focal neurologic deficit on exam Peripheral Line Left Antecubital 20 Gauge (Active) Number of days: 2 Implanted IV Device Right Chest (Active) Number of days: 52 STUDIES: Encounter Orders Labs and other studies reviewed with pertinent findings noted below: Chemistry with potassium 3.2, phosphorus 1.9, calcium 8.3 others within normal limit CBC without leukocytosis hemoglobin 11.4, platelets 331 Recent Cultures (2 Weeks) 12/05/2023 12/04/2023 12/04/2023 12/02/2023 12/02/2023 09/04/2021 08/02/2021 08/01/2021 10:54 AM 6:30 PM 6:25 PM 10:07 AM 10:03 AM 4:29 PM 8:18 AM 7:30 AM STAIN DESCRIPTION No purulence detected. <25 neutrophils/low power microscopic field. -- -- -- -- -- -- Aerobic bottle Gram positive cocci in clusters Occasional Polymorphonuclear leukocytes Aerobic bottle Gram positive cocci in clusters Few Gram positive cocci in clusters Rare Budding yeast with pseudohyphae BLOOD CULTURE GROWTH -- No growth to date No growth to date No growth to date No growth to date -- No growth Aerobic bottle Staphylococcus aureus No growth Aerobic bottle Staphylococcus aureus QUANT URINE CULTURE GROWTH -- -- -- -- -- < 100 colonies/ml (no growth) -- -- Assessment and Plan IMPRESSION : Principal Problem: Acute hypoxic respiratory failure (HCC) Active Problems: Primary malignant neoplasm of left lower lobe of lung (HCC) Dyspnea on exertion Immunodeficiency (HCC) History of pulmonary embolism Pneumonia Resolved Problems: * No resolved hospital problems. 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 Patient was on longer duration of dexamethasone. DIFFERENTIAL AND PLAN: Acute hypoxic respiratory failure Multifocal pneumonia/?pneumonitis secondary to chemotherapy Stage IV NSCLC (last chemo 11/21) currently on chemotherapy Legionella antigen negative, streptococcal pneumoniae antigen pending, sputum culture growing some Gram-positive bacteremia Infectious Disease recommend ceftriaxone 2 g every 24 hours for cap Thoracic medicine following, currently bronchoscopy is on hold as per Pulmonary Medicine Patient driven respiratory protocol, flutter therapy MRI without metastasis presence of chronic right MCA territory infarct Oncology following Hypokalemia Hypophosphatemia Supplemented will monitor Chronic Problems: HTN: 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 * Law Bethea, [facility] - 12/05/2023 12:19 AM EST PHARMACY PHARMACOKINETIC CONSULT [address] [address] Name: John Mancilla Location: X Date: 12/05/2023 Time: 12:19 AM Requesting Service: medicine Bacteria being treated: unknown - empiric Source of infection: unknown Medication(s) being managed: Vancomycin Pharmacokinetic calculations will be performed utilizing [employer] software. Lab information: Lab Results Component Value Date/Time WBC 5.06 12/04/2023 06:25 PM WBC 4.44 12/02/2023 10:03 AM WBC 14.12 (H) 11/21/2023 08:14 AM WBC 6.97 11/06/2023 12:26 PM WBC 16.68 (H) 10/24/2023 07:51 AM WBC 5.03 01/09/2019 12:02 PM WBC 7.25 01/03/2017 10:13 AM WBC 5.58 07/30/2013 10:05 AM WBC 5.39 05/09/2009 02:04 PM Lab Results Component Value Date/Time BUN 12 12/04/2023 06:25 PM BUN 8 12/02/2023 10:03 AM BUN 20 11/21/2023 08:14 AM BUN 15 11/06/2023 12:26 PM BUN 15 10/24/2023 07:51 AM BUN 15 01/03/2017 10:13 AM BUN 20 07/30/2013 10:05 AM BUN 16 04/25/2010 12:03 PM BUN 20 05/09/2009 02:04 PM Lab Results Component Value Date/Time CREAT 0.9 12/04/2023 06:25 PM CREAT 1.0 12/02/2023 10:03 AM CREAT 0.9 11/21/2023 08:14 AM CREAT 0.9 11/06/2023 12:26 PM CREAT 0.8 10/24/2023 07:51 AM CREAT 1.0 01/03/2017 10:13 AM CREAT 0.8 07/30/2013 10:05 AM CREAT 0.8 04/25/2010 12:03 PM CREAT 0.8 05/09/2009 02:04 PM ANTIMICROBIALS GIVEN (last 28 hours) Date/Time Action Medication Dose Rate 12/04/232122 New Bag vancomycin (Vancocin) 2,500 mg in NSS 500 mL ivpb 2,500 mg 220 mL/hr 12/04/232043 New Bag Piperacillin-Tazobactam (Zosyn) 4.5 g in 100 mL NSS ivpb (HALF hour infusion) 4.5 g 220 mL/hr Wt Readings from Last 1 Encounters: 12/04/23 105.2 kg (232 lb) Levels to date: No results found for: "VANCO", "VANCOPEAK", "VANCORANDOM", "VANCOTROUGH", "GENTPEAK", "GENTRANDOM","GENTTROUGH", "TOBRAPEAK", "TOBRARANDOM", "TOBRATROUGH", "AMIKAPEAK", "AMIKARANDOM", "AMIKATROUGH" Impression: John D Mancilla is a/an 53 year old male receiving vancomycin therapy. The pharmacokinetic target for therapy is AUC24,SS (range) 400-600mg/L.hr Assessment and Plan: Assessment: Analysis using [employer] gives the following patient-specific pharmacokinetic parameters: CL: 5.17 L/hr V: 71 L T1/2: 9.78 hours At this time we recommend a regimen of 1500 mg IV every 12 hours, which is predicted to result in asteady-state trough of 15.4 mg/L and AUC24 of 551 mg/L.hr. Recommendations: - Vancomycin 1500 mg IV every 12 hours - Obtain Vancomycin level 2 to 3 days - Continue to monitor serum creatinine Obtain next vancomycin level 2 to 3 days. Pharmacy will continue to follow and dose as appropriate by renal function, culture results, infectious disease input, and overall clinical status. Contact the Pharmacy at extension [phone] if there are any questions. Law Bethea RPh documented in this encounter H&P Notes * Brandon Monreal, DO - 12/11/2023 8:05 AM EST Endoscopy Pre-Procedure Assessment Name: John Mancilla Date: 12/11/2023 Time: 8:05 AM Procedure(s): Bronchoscopy; with Indication(s) of abnormal CT Endoscopy Pre-Procedure Assessment: Prior to the procedure, the patient is identified. The patient's history, medications and allergieshave been reviewed. The patient is competent. The risks and benefits of the proposed procedure and the planned sedation have been discussed with the patient. All questions have been answered and informed consent for the procedure has been obtained. Prior to Admission medications Medication Sig Last Dose Discont. Doxycycline Hyclate 100 MG Oral Capsule Take 1 Capsule by mouth in the morning and 1 Capsule beforebedtime. Do all this for 5 days. Past Week Furosemide 20 MG Oral Tablet (Lasix) Take 1 Tablet by mouth in the morning. 12/03/2023 ProAir HFA 108 (90 Base) MCG/ACT Inhalation Aerosol Solution Inhale 2 Puffs by mouth every 4 hours as needed for Wheezing or Shortness of Breath. Past Week Enoxaparin Sodium 80 MG/0.8ML Injection Solution Prefilled Syringe (Lovenox) Inject 80 mg under theskin in the morning and 80 mg before bedtime. 12/04/2023 dexAMETHasone 4 MG Oral Tablet (Decadron) Take 2 tabs in AM with food x 3 days AFTER chemo and as directed prior to chemo. Past Month OLANZapine 5 MG Oral Tablet (zyPREXA) Take 1 tab at bedtime starting the night of chemo x 4 nights.Repeat with each treatment. Past Week dexAMETHasone 4 MG Oral Tablet (Decadron) Take 1 Tablet by mouth in the morning. Past Month Prochlorperazine Maleate 10 MG Oral Tablet (Compazine) Take 1 Tablet by mouth every 6 hours as needed for Nausea. Past Week Topiramate 25 MG Oral Tablet (Topamax) Take 1 tablet nightly x 2 weeks then increase to 2 tablets nightly. 12/03/2023 Folic Acid 1 MG Oral Tablet Take 1 Tablet by mouth in the morning. 12/04/2023 Atorvastatin Calcium 40 MG Oral Tablet (Lipitor) Take 1 Tablet by mouth daily. 12/04/2023 amLODIPine Besylate 2.5 MG Oral Tablet (Norvasc) Take 1 Tablet by mouth in the morning. 12/04/2023 Culturelle Probiotics Oral Tablet Chewable Take 1 Tablet by mouth in the morning. Past Week Nitroglycerin 0.4 MG Sublingual Tablet Sublingual (Nitrostat) Place 1 Tablet under the tongue once as needed. As directed for chest pain Past Month Ondansetron HCl 8 MG Oral Tablet Take 1 Tablet by mouth in the morning and 1 Tablet at noon and 1 Tablet before bedtime. 12/03/2023 Vitamin E 1000 UNIT Oral Capsule Take 1 Capsule by mouth in the morning. Past Week Amoxicillin-Pot Clavulanate 875-125 MG Oral Tablet (Augmentin) Take 1 Tablet by mouth in the morning and 1 Tablet before bedtime. Do all this for 5 days. Amoxicillin-Pot Clavulanate 875-125 MG Oral Tablet (Augmentin) Take 1 Tablet by mouth in the morning and 1 Tablet before bedtime. Do all this for 10 days. Azithromycin 250 MG Oral Tablet (Zithromax) Take 2 tabs by mouth on the first day, then 1 tab dailyon days two through five Review of patient's allergies indicates: Allergen Reactions Carboplatin Dyspnea, chest pain, hypoxia, sore throat, edema throat, flushing, mild hypotension Isosorbide Nitrate Other (Please comment) Headache BP 131/77 | Pulse 80 | Temp 36.6 C (97.9 F) (Tympanic) | Resp 18 | Ht 1.803 m (5' 11") | Wt 110.7 kg (244 lb) | SpO2 93% | BMI 34.03 kg/m | BSA 2.35 m Physical Exam: Mental Status Examination: alert and oriented. Airway Examination: normal oropharyngeal airway and neck mobility. Respiratory Examination: poor air movement. CV Examination: regular rate and rhythm. ASA Grade: IV - A patient with severe systemic disease that is a constant threat to life. Abdomen: negative This patient has undergone a preprocedural evaluation. A determination has been made to proceed with the planned procedure under [facility] procedural guidelines and the [facility] Non-Emergent, Elective Medical Services and Treatment Recommendations (published on 02-02-20). The community and hospital prevalence of COVID-19 has been discussed as well as this patient's specific risks associated with SARS-CoV-19 infection. Based upon the clinical acuity and patient-specific care considerations, this procedure is deemed a Tier I - High acuity treatment or service with immediate threat to life or threat of severe progressive disease. Lack of treatment or service would result in patient harm. After reviewing the risks and benefits, the patient is deemed in satisfactory condition to undergo the procedure. The anesthesia plan is to use general anesthesia. Brandon Monreal DO 12/11/[address] Ramirez. 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 Started with SOB with exertion over weekend with low grade fever which came and went. Saturday night could not catch breath and was experiencing shortness of breath while at rest. Called director of compensation oncologist, was seen in ER Sat. Had CT scan and xray. No clot, diagnosed with pneumonia, given antibiotics (amoxicillin and doxycycline) taking BID since Sat. Today reports that he is not feeling any better. Very fatigued and lethargic. Still running fever, yesterday 101 all day. Today temp 100.5, feels cold, no shaking chills, headache which has had sinceFri. Taking tylenol every 6 hrs. Patient and his called oncology office and they were told to come to [facility] ED for IV anti-biotics. Has significant orthopnea and has noted some increased ankle swelling. But denies any other symptoms such as N/V/D, abdominal pain, chest pain, dizziness, or palpitations. Of note, Last chemo treatment 11/21. Was taking Decadron 4 mg PO daily, however, this was discontinued on 11/24. No taper completed. Back in July was admitted to [facility] for CVA. Thought to be due to hypercoagulability in setting ofCOVID and malignancy. Also, had elevated troponin and concern for ACS, however underwent Cardiac MRI which showed normal Coronary arteries. Elevated troponins thought to be due to vasospasm per outpat ient cardiology note. Patient wishes to be a FULL CODE and for his to be his surrogate decision maker in the event he cannot make decisions for himself. Review of Systems: Review of systems was conducted with pertinent positives and negatives as statedabove, otherwise negative. ED Course: Presenting Vitals: Afebrile, normotensive, nontachy, saturating well on RA Significant Labs: K 3.3, Cr 0.9, WBCs wnl, RVP negative, Imaging: CT PE: No PE, Interval worsening of scattered infiltrates in the lungs, which may represent pneumonia, No significant interval change of a 2.6 cm nodule in the left lower lobe Meds Given: Potassium, Tylenol, Vanc/Zosyn Past Medical History: Past Medical History: Diagnosis Date Pneumonia Past Surgical History: Past Surgical History: Procedure Laterality Date COLONOSCOPY, DIAGNOSTIC (RECTUM) N/A 08/13/2019 COLONOSCOPY FLEXIBLE PROXIMAL DIAGNOSTIC performed by Pavan Villaseñor MD at ENDOSCOPY [facility] IR VENOUS ACCESS MEDIPORT 04/24/2021 IR VENOUS ACCESS MEDIPORT 08/01/2021 IR VENOUS ACCESS MEDIPORT 10/15/2023 VASECTOMY Family Medical History: obtained and not relevant in this case Family History Problem Relation Age of Onset Diabetes Father Hypertension Father Heart attack Father Fatal [place] age 74 No Known Problems Mother No Known Problems Sister No Known Problems Brother Lymphoma Niece Social History: Social History Tobacco Use Smoking status: Never Smokeless tobacco: Never Vaping Use Vaping Use: Never used Substance Use Topics Alcohol use: Not Currently Comment: occasionally Drug use: No Allergies: Carboplatin and Isosorbide nitrate Home Medications: reviewed Prior to Admission medications Medication Sig Last Dose Discont. Amoxicillin-Pot Clavulanate 875-125 MG Oral Tablet (Augmentin) Take 1 Tablet by mouth in the morning and 1 Tablet before bedtime. Do all this for 5 days. Doxycycline Hyclate 100 MG Oral Capsule Take 1 Capsule by mouth in the morning and 1 Capsule beforebedtime. Do all this for 5 days. Furosemide 20 MG Oral Tablet (Lasix) Take 1 Tablet by mouth in the morning. Amoxicillin-Pot Clavulanate 875-125 MG Oral Tablet (Augmentin) Take 1 Tablet by mouth in the morning and 1 Tablet before bedtime. Do all this for 10 days. Azithromycin 250 MG Oral Tablet (Zithromax) Take 2 tabs by mouth on the first day, then 1 tab dailyon days two through five ProAir HFA 108 (90 Base) MCG/ACT Inhalation Aerosol Solution Inhale 2 Puffs by mouth every 4 hours as needed for Wheezing or Shortness of Breath. Enoxaparin Sodium 80 MG/0.8ML Injection Solution Prefilled Syringe (Lovenox) Inject 80 mg under theskin in the morning and 80 mg before bedtime. dexAMETHasone 4 MG Oral Tablet (Decadron) Take 2 tabs in AM with food x 3 days AFTER chemo and as directed prior to chemo. OLANZapine 5 MG Oral Tablet (zyPREXA) Take 1 tab at bedtime starting the night of chemo x 4 nights.Repeat with each treatment. dexAMETHasone 4 MG Oral Tablet (Decadron) Take 1 Tablet by mouth in the morning. Prochlorperazine Maleate 10 MG Oral Tablet (Compazine) Take 1 Tablet by mouth every 6 hours as needed for Nausea. Topiramate 25 MG Oral Tablet (Topamax) Take 1 tablet nightly x 2 weeks then increase to 2 tablets nightly. Folic Acid 1 MG Oral Tablet Take 1 Tablet by mouth in the morning. Atorvastatin Calcium 40 MG Oral Tablet (Lipitor) Take 1 Tablet by mouth daily. amLODIPine Besylate 2.5 MG Oral Tablet (Norvasc) Take 1 Tablet by mouth in the morning. Culturelle Probiotics Oral Tablet Chewable Take 1 Tablet by mouth in the morning. Nitroglycerin 0.4 MG Sublingual Tablet Sublingual (Nitrostat) Place 1 Tablet under the tongue once as needed. As directed for chest pain Ondansetron HCl 8 MG Oral Tablet Take 1 Tablet by mouth in the morning and 1 Tablet at noon and 1 Tablet before bedtime. Vitamin E 1000 UNIT Oral Capsule Take 1 Capsule by mouth in the morning. Objective: BP 127/78 | Pulse 83 | Temp 37.7 C (99.9 F) (Tympanic) | Resp 17 | SpO2 96% Vitals: -- Last 24 Hours -- Systolic BP: Most Recent Systolic BP Av mmHg Min: 127 mmHg Max: 127 mmHg Temperature: Most Recent Temperature Av.3 C Min: 36.89 C Max: 37.72 C Pulse: Pulse Av Min: 82 Max: 87 Respirations: Resp Av.3 Min: 17 Max: 20 SpO2: SpO2 Av.7 % Min: 95 % Max: 96 % No intake or output data in the 24 hours ending 12/04/232046 Wt Readings from Last 3 Encounters: 12/04/23 105.2 kg (232 lb) 12/02/23 101.2 kg (223 lb) 11/21/23 105.6 kg (232 lb 12.8 oz) PHYSICAL EXAM General: Pleasant middle aged male resting in bed, awake, no acute distress HEENT: Sclera white, extraocular muscles intact, oral mucosa pink and moist Neck: No obvious thyromegaly or JVD Cardiovascular: RRR, no murmur, rubs, or gallops Respiratory: Bibasilar crackles (worse on R), decreased breath sounds in L upper [place], no wheezing, no increased respiratory effort Abdomen: Soft, non-tender, non-distended, normal bowel sounds Musculoskeletal: No joint deformity Extremities: Trace lower extremity edema bilaterally, 2/4 pedal pulses bilaterally Neuro: Moves all extremities equally, no focal deficits Psych: normal affect, responds to questions appropriately Skin: No rashes, no skin lesions Laboratory Values: reviewed Recent Results (from the past 24 hour(s)) COMPREHENSIVE METABOLIC PANEL Collection Time: 12/04/23 6:25 PM Result Value Ref Range BUN 12 6 - 20 mg/dL Creatinine 0.9 0.6 - 1.2 mg/dL Estimated Glomerular Filtration Rate >90 >=60 mL/min Sodium 138 135 - 146 mmol/L Potassium 3.3 (L) 3.5 - 5.1 mmol/L Chloride 102 98 - 107 mmol/L CO2 25 22 - 32 mmol/L Anion Gap 11 7 - 15 mmol/L Glucose 122 (H) 70 - 120 mg/dL Albumin 4.1 3.8 - 5.0 g/dL AST 35 10 - 50 U/L Alkaline Phosphatase 81 35 - 130 U/L Bilirubin, Total 0.4 <=1.2 mg/dL Calcium 9.0 8.4 - 10.2 mg/dL Protein 7.1 6.0 - 8.3 g/dL ALT 68 (H) 10 - 50 U/L BLOOD GAS, VENOUS Collection Time: 12/04/23 6:25 PM Result Value Ref Range Temperature 37.0 C pH, Venous 7.384 7.320 - 7.430 units pCO2, Venous 47.0 40.0 - 60.0 mmHg pO2, Venous 22.2 (L) 25.0 - 50.0 mmHg Base Excess, Venous 2.5 (H) -2.0 - 2.0 mmol/L Hemoglobin, Whole Blood 9.5 (L) 14.0 - 16.8 g/dL Oxyhemoglobin, Venous 30.4 (L) 40.0 - 85.0 % total Hgb Carboxyhemoglobin, Whole Blood 0.9 <=1.5 % total Hgb Methemoglobin, Whole Blood 0.7 <=1.5 % total Hgb Reduced Hemoglobin, Venous 68.0 % total Hgb O2 Content, Venous 4.1 (L) 7.0 - 18.0 %vol Bicarbonate, Whole Blood 27.4 23.0 - 31.0 mmol/L TROPONIN T, HIGH SENSITIVITY Collection Time: 12/04/23 6:25 PM Result Value Ref Range Troponin T, High Sensitivity 11 <=22 ng/L CBC Collection Time: 12/04/23 6:25 PM Result Value Ref Range WBC 5.06 4.00 - 10.80 K/uL RBC 4.05 4.50 - 5.25 M/uL HGB 13.2 (L) 14.0 - 16.8 g/dL HCT 39.0 (L) 40.0 - 48.4 % MCV 96.3 82.0 - 99.5 fL MCH 32.6 27.0 - 34.0 pg MCHC 33.8 32.0 - 36.0 g/dL RDW 16.5 11.5 - 15.5 % PLT 332 140 - 400 K/uL MPV 9.2 6.6 - 11.1 fL nRBCs 1 (H) <=0 /100 WBCs DIFFERENTIAL, AUTOMATED Collection Time: 12/04/23 6:25 PM Result Value Ref Range WBC 5.06 4.00 - 10.80 K/uL Neutrophils % 53.3 40.0 - 75.0 % Lymphocytes % 26.9 18.0 - 42.0 % Monocytes % 15.2 (H) 1.0 - 11.0 % Eosinophils % 2.0 0.0 - 6.0 % Basophils % 1.2 0.0 - 2.0 % Immature Granulocytes % 1.4 0.0 - 2.0 % Absolute Neutrophils 2.70 1.80 - 7.70 K/uL Absolute Lymphocytes 1.36 1.00 - 4.80 K/ul Absolute Monocytes 0.77 0.00 - 1.10 K/uL Absolute Eosinophils 0.10 0.00 - 0.70 K/uL Absolute Basophils 0.06 0.00 - 0.20 K/uL Absolute Immature Granulocytes 0.07 0.00 - 0.20 K/uL RESPIRATORY PATHOGEN PANEL, PCR Collection Time: 12/04/23 6:34 PM Result Value Ref Range Adenovirus by PCR Negative Negative Coronavirus 229E by PCR Negative Negative Coronavirus HKU1 by PCR Negative Negative Coronavirus NL63 by PCR Negative Negative Coronavirus OC43 by PCR Negative Negative Coronavirus SARS-CoV-2 by PCR Negative Negative Human Metapneumovirus by PCR Negative Negative Rhinovirus/Enterovirus by PCR Negative Negative Influenza A Virus by PCR Negative Negative Influenza B Virus by PCR Negative Negative Parainfluenza Virus 1 by PCR Negative Negative Parainfluenza Virus 2 by PCR Negative Negative Parainfluenza Virus 3 by PCR Negative Negative Parainfluenza Virus 4 by PCR Negative Negative Respiratory Syncytial Virus by PCR Negative Negative Bordetella pertussis by PCR Negative Negative Chlamydia pneumoniae by PCR Negative Negative Mycoplasma pneumoniae by PCR Negative Negative Bordetella parapertussis by PCR Negative Negative Radiographic & Other Studies: reviewed XR CHEST 2 VIEWS Result Date: 12/04/2023 [...] of b lastic metastases in the bones. MRI CARDIAC, ADULT W WO CONTRAST - 07/2023 Interpretation Summary 1. Cardiac MRI findings of normal biventricular systolic function. There is subendocardial infarction noted in the distal inferior segment with associated hypokinesis in the segment. Myocardial edema is also noted in these segments suggesting that infarction is not chronic. There is no evidence of myocarditis. These findings are indicative of an occult infarction. 2. The left ventricle is of normal size. The left ventricular wall thickness is mildly increased in the basal septum. The left ventricle systolic function is normal. The calculated LV ejection fraction is 55%. 3. The right ventricle is of normal size and systolic function The calculated RV ejection fraction is 56%. 4. Focal myocardial infarction is noted in the distal inferior segment. Impression and Plan: Active Problems: Primary malignant neoplasm of left lower lobe of lung (HCC) (POA: Yes) Immunodeficiency (HCC) (POA: Yes) History of pulmonary embolism (POA: Yes) Pneumonia (POA: Yes) Resolved Problems: * No resolved hospital problems. 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 CT imaging significant for multi-focal patchy infiltrates concerning for Pneumonia vs Pneumonitis in setting of recently discontinued steroids and ongoing chemo. Multi-focal Pneumonia vs Hypersensitivity Pneumonitis Hx of Stage IV NSCLC (last chemo 11/21) Currently HDS, afebrile. No signs of sepsis. Saturating well on RA. Other infectious workup negative thus far. CT concerning for patchy infiltrates which could represent pneumonitis in setting of recently withheld steroids and ongoing chemo. Will start broad spectrum coverage in setting of immunosuppression. Oncology consulted. Patient does examine mildly hypervolemic, will diurese. Had cardiac MRI in Jul 2023 w/ normal EF. Suspect volume could be related to mcc steroid use? Start Vanc, Zosyn, and Azithromycin If no improvement in 24 hours or any signs of respiratory decompensation, low threshold to start Steroids and c/s Pulmonology Oncology consulted - recs appreciated Give Lasix 40 mg IV x1 Assess output tomorrow. Consider resuming [employer] dose vs repeat IV Albuterol nebs Q4H PRN FU Blood & Sputum cultures, MRSA nares Strep Pneumon and legionella urine antigens sent Trend CBC daily Chronic Problems: HTN: Continue [employer] Norvasc HLD: Continue [employer] Lipitor DVT/PE: Continue [employer] Lovenox 80 BID Headaches: Continue [employer] Topamax MISC -Access: Peripheral Line Left Antecubital 20 Gauge (Active) Number of days: 0 -Diet: Regular -Stress Ulcer ppx: None -Bowel Regimen: Senna, colace -Whiting: None -Rehab: PT/OT--recs pending -VTE ppx: Lovenox -Code Status: FULL CODE -Disposition: Med-Surg Patient will be seen and examined by attending physician, DO Ricardo Murray DO Resident, Internal Medicine This note has been completed using dictation software M Modal Fluency Direct. Grammatical errors, missed words, incorrect word insertion may occur when dictating using this software. Should there be any questions, concerns or confusion about the information contained in this note, please reach out to the mortgage or loan underwriter for clarification via TT or phone number below. Thank you. Associated attestation - Amanda Green DO - 12/05/2023 12:07 AM EST I have seen and evaluated the patient on 12/04/2023. I have discussed the case/treatment plan, reviewed the trainee note, labs, imaging, and agree with the documented findings and plan of care. I spent a total of 75 minutes coordinating, documenting, and providing care for this patient excluding time spent in the performance of separately billed services or time spent by another provider/QHP. documented in this encounter Procedure Notes * Monica Spivey PA-C - 12/11/2023 7:43 AM ESTAssociated Order(s): BRONCHOSCOPY [facility] Patient Name: John Mancilla Procedure Date: 12/11/2023 7:43 AM Date of : 1970 Admit Type: Inpatient Note Status: Finalized Date of : 1970 Admit Type: Inpatient Age: 53 Room: ENDO - ROOM 10 Gender: Male Note Status: Finalized Procedure: Bronchoscopy (with BAL) Indications: Abnormal CT scan of chest Providers: Lino Ramirez MD, Brandon Monreal, [facility] (Fellow) Referring MD: Monica Spivey (Referring ), Kentrell Dee MD (Referring MD), Ahsan Duran (Referring ) Medicines: General Anesthesia Complications: No immediate complications Procedure: Pre-Anesthesia Assessment: - ASA Grade Assessment: IV - A patient with severe systemic disease that is a constant threat to life. - The heart rate, respiratory rate, oxygen saturations, blood pressure, adequacy of pulmonary ventilation, and response to care were monitored throughout the procedure. - The supervising physician was present for the entire procedure from scope insertion until scope withdrawal. After obtaining informed consent,The procedure was accomplished without difficulty. The patient tolerated the procedure well. the BF-P180 Bronchoscope ([id number]) was introduced through the mouth, via the endotracheal tube (the patient was intubated for the procedure) and advanced to the tracheobronchial tree of both lungs. All instruments were visually inspected immediately before and after removal from the patient to ensure they are fully intact. Findings & Specimens: The endotracheal tube is in good position. The visualized portion of the trachea is of normal caliber. The nini is sharp. The tracheobronchial tree was examined to at least the first subsegmental level. Bronchial mucosa and anatomy are normal; there are no endobronchial lesions, and no secretions. The bronchoscope was advanced until wedged at the desired location for bronchoalveolar lavage. BAL was performed in the SHI apical posterior segments (B1 & B2) of the lung and sent for cell count, bacterial culture, smears & culture, and fungal & AFB analysis and cytology, bacterial, AFB and fungal analysis, Legionella (DFA & culture), Nocardia, fungal analysis, Aspergillus antigen and Pneumocystis (PCP/PJP) analysis. 100 mL of fluid were instilled. 41 mL were returned. The return was cellular and cloudy. Mucous plugs were present in the return fluid. Multiple specimens were obtained and pooled into one specimen, which was sent for analysis. The microbiology specimen was placed in Bottle A. The cytology specimen was placed in Bottle B. Impression: - Abnormal CT scan of chest - The airway examination was as above. - Bronchoalveolar lavage was performed. Recommendation: - Await BAL results. Rae-Erna Ramirez MD 12/11/2023 11:38:27 AM This report has been signed electronically. Brandon Monreal, [facility] 12/11/2023 11:38:15 AM documented in this encounter Consult Notes * Kentrell Dee MD - 12/10/2023 1:58 PM EST Images from the original note were not included. THORACIC / PULMONARY MEDICINE PROGRESS NOTE [address] [address] Name: John Mancilla Date: 12/10/2023 Time: 1:58 PM HISTORY OF PRESENT ILLNESS: 53-year-old male with past medical history significant for stage IV [id number] lung cancer withmetastatic disease to bone (currently managed on Taxol/pembro), DVT/PE on Lovenox, CVA prediabetes admitted 12/04/2023 for concern of progressive shortness of breath with exertion and low-grade feverwith imaging suggestive of multifocal pneumonia. Patient states that his shortness of breath began over the weekend insidiously with a transient low-grade fever; however, patient had more profound dyspnea on Saturday and on the recommendation of his primary oncologist, reported to the ED on Saturday. Chest imaging was suggestive of multifocal pneumonia, of which he was prescribed amoxicillin and doxycycline. He returned to the ED today stating thathe was not feeling any better, most concerning to him was feeling more fatigue and lethargy. Yesterday he had a more persistent fever of T-max 101 at home. Patient states he has been taking Tylenolaround the clock. Again by urging of primary Oncology, patient was recommended to present to the emergency department for IV antibiotic therapy. On presentation to ED again today, imaging is suggestive of worsening of bilateral infiltrates Of note, patient's last chemotherapy treatment was 11/21/2023. Incidentally, he was also taking Decadron 4 mg oral daily, however, this was discontinued on 11/24. No taper was completed, and medication was not intended to be a daily med but patient misunderstood and did take it daily by mistake. INTERIM HISTORY Patient is still complaining of dyspnea upon exertion. ID and Heme/Onc are recommending with bronchoscopy at this time. Patient and family at bedside would like to go ahead with the bronchoscopy. He denies any fever, chills, nausea, vomiting, constipation, diarrhea, chest pain. PAST MEDICAL HISTORY: Past Medical History: Diagnosis Date Pneumonia PAST SURGICAL HISTORY: Past Surgical History: Procedure Laterality Date COLONOSCOPY, DIAGNOSTIC (RECTUM) N/A 08/13/2019 COLONOSCOPY FLEXIBLE PROXIMAL DIAGNOSTIC performed by Pavan Villaseñor MD at ENDOSCOPY [facility] IR VENOUS ACCESS MEDIPORT 04/24/2021 IR VENOUS ACCESS MEDIPORT 08/01/2021 IR VENOUS ACCESS MEDIPORT 10/15/2023 VASECTOMY FAMILY HISTORY: Family History Problem Relation Age of Onset Diabetes Father Hypertension Father Heart attack Father Fatal [place] age 74 No Known Problems Mother No Known Problems Sister No Known Problems Brother Lymphoma Niece SOCIAL HISTORY: Social History Tobacco Use Smoking status: Never Smokeless tobacco: Never Vaping Use Vaping Use: Never used Substance Use Topics Alcohol use: Not Currently Comment: occasionally Drug use: No ALLERGIES: Carboplatin and Isosorbide nitrate ROS: As above PHYSICAL EXAMINATION: Oxygen Requirements: O2 Mode: O2 %: O2 Flow Rate: O2 flow rate: 2 L/MIN (12/10/23 1022) IPAP: CPAP/EPAP: Vital Signs Last 24 Hours: Systolic BP: Most Recent Systolic BP Av.7 mmHg Min: 107 mmHg Max: 132 mmHg Temperature: Most Recent Temperature Av C Min: 36.11 C Max: 37.72 C Pulse: Pulse Av.4 Min: 80 Max: 92 Respirations: Resp Av Min: 18 Max: 18 SpO2: SpO2 Av.3 % Min: 88 % Max: 100 % Eyes - PERRLA, EOM intact ENT - dry mucosa Neck - No noticeable or palpable swelling, redness or rash around throat or on face Cardiovascular - RRR no JVD Lungs - good inspiratory effort with bilateral air entry appreciated. Coarse breath sounds noted throughout all lung george. No use of accessory muscles. Crackles noted to bibasilar regions. No wheezing. Skin - No rashes, skin warm and dry, no erythematous areas Abdomen - Normal bowel sounds, abdomen soft and nontender Extremeties - No edema, cyanosis or clubbing Musculo Skeletal - No overt abnormality Neurological - Alert and oriented x 3 LABS: Blood Gas: Lab results within last 7 days (see chart for full results) Units 12/05/23 0048 12/04/23 1825 pH, Venous units 7.448* 7.384 pCO2, Venous mmHg 35.9* 47.0 pO2, Venous mmHg 48.1 22.2* Base Excess, Venous mmol/L 1.2 2.5* Chemistry Panel: Lab results within last 7 days (see chart for full results) Units 12/10/23 0812 12/09/23 0910 12/08/23 0755 12/07/23 0744 12/06/23 0804 12/05/23 0512/04/23 1825 Sodium mmol/L 139 138 139 140 139 140 138 Potassium mmol/L 3.5 3.2* 3.6 3.6 3.2* 3.1* 3.3* Chloride mmol/L 104 102 103 105 106 106 102 CO2 mmol/L 23 24 25 24 22 23 25 BUN mg/dL 10 10 8 8 9 10 12 Creatinine mg/dL 0.9 0.9 1.0 0.9 0.9 0.9 0.9 Estimated Glomerular Filtration Rate mL/min >90 >90 88 >90 >90 >90 >90 Glucose mg/dL 127* 149* 132* 139* 115 125* 122* Calcium mg/dL 8.7 8.5 8.6 8.4 8.3* 8.1* 9.0 Magnesium mg/dL 2.6 2.6 2.6 2.3 2.3 2.2 -- Phosphorus mg/dL 2.6 2.1* 2.6 2.9 1.9* 3.4 -- Anion Gap mmol/L 12 12 11 11 11 11 11 Complete Blood Count: Lab results within last 7 days (see chart for full results) Units 12/10/23 0812 12/09/23 0910 12/08/23 0755 12/07/23 0744 12/06/23 0804 12/05/23 0512/04/23 1825 WBC K/uL 7.21 6.59 6.52 5.82 5.48 4.87 5.06 HGB g/dL 13.0* 12.5* 12.6* 12.1* 11.4* 12.2* 13.2* HCT % 39.6* 37.5* 38.0* 36.9* 34.1* 36.1* 39.0* PLT K/uL 499* 451* 419* 353 331 289 332 MCV fL 97.1 95.9 95.2 96.1 95.0 95.0 96.3 Cardiac Studies: Lab results within last 7 days (see chart for full results) Units 12/04/23 1825 Troponin T, High Sensitivity ng/L 11 Coagulation Studies: No results in the last 7 days - inpatent use only Liver Function Panel: Lab results within last 7 days (see chart for full results) Units 12/04/23 1825 Albumin g/dL 4.1 Protein g/dL 7.1 Bilirubin, Total mg/dL 0.4 AST U/L 35 ALT U/L 68* Alkaline Phosphatase U/L 81 Infectious Studies: No results in the last 7 days - inpatent use only Cultures: reviewed. Lab results within last 7 days (see chart for full results) Units 12/04/23 1834 Coronavirus SARS-CoV-2 by PCR Negative Recent Cultures (2 Weeks) 12/05/2023 12/04/2023 12/04/2023 12/02/2023 12/02/2023 09/04/2021 08/02/2021 08/01/2021 10:54 AM 6:30 PM 6:25 PM 10:07 AM 10:03 AM 4:29 PM 8:18 AM 7:30 AM STAIN DESCRIPTION No purulence detected. <25 neutrophils/low power microscopic field. -- -- -- -- -- -- Aerobic bottle Gram positive cocci in clusters Occasional Polymorphonuclear leukocytes Aerobic bottle Gram positive cocci in clusters Few Gram positive cocci in clusters Rare Budding yeast with pseudohyphae CULTURE GROWTH Moderate Yeast -- -- -- -- -- -- -- BLOOD CULTURE GROWTH -- No growth No growth No growth No growth -- No growth Aerobic bottle Staphylococcus aureus No growth Aerobic bottle Staphylococcus aureus QUANT URINE CULTURE GROWTH -- -- -- -- -- < 100 colonies/ml (no growth) -- -- PFT 04/07/2021:No additional studies for comparison CHEST X-RAY: EXAM XR CHEST 2 VIEWS-12/04/2023 7:23 pm HISTORY [...] nodules better demonstrated on prior CT. CT CHEST: 1. No evidence for pulmonary embolism. 2. Interval worsening of scattered infiltrates in the lungs, which may represent pneumonia. 3. No significant interval change of a 2.6 cm nodule in the left lower lobe. 4. Interval improvement of retroperitoneal adenopathy. 5. 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 PULMONARY IMPRESSION: Acute hypoxemic respiratory insufficiency in the setting metastatic NSCLC (on Keytruda) - concerning for medication induced pneumonitis vs infectious pneumonia Hx of metastatic NSCLC PULMONARY SUGGESTION(S): Keep SpO2 >92% Can continue with Rocephin as per primary team Recommend to D/C Keytruda NPO except meds after midnight tonight and hold further lovenox doses today. Plan for bronchoscopy tomorrow AM. Flutter valve, incentive spirometry for on going pulmonary hygiene Patient seen and discussed with Dr Dee, Pulmonary / Thoracic Medicine Attending. Anahy Wren MD Fellow Pulmonary & Critical Care Medicine I saw and evaluated the patient today. I have reviewed the trainee note and agree. I spent a total of 50 minutes coordinating, documenting, and providing care for this patient excluding time spent in the performance of separately billed services. * Pj Chi MD - 12/05/2023 2:54 PM ESTAssociated Order(s): INFECTIOUS DISEASE CONSULT IP CONSULT - Infectious Disease [facility]-[address] [id number] Name: John Mancilla Location: Date: 12/05/2023 Time: 2:54 PM REQUESTING SERVICE: Medicine REASON FOR CONSULT: 53 yo male with NSCLS on chemo, immunosuppresed, new patchy infiltrates lung findings, would you please evaluate for abx and need to get a bronchscopy HPI: Patient is a 53 year old male medical history of active NSCLC, PE on Lovenox, CVA admitted to the hospital on 12/04/2023. Patient's family at bedside to assist with history. Since last Saturday patient experiencing shortness of breath and intermittent fever (tympanic measurements) and headache at home to Tmax 101F. Patient without sputum production during this time. Furthermore, states that at times he seems confused and is unable to express himself clearly, this is brief but was noticeable to the while family. Was seen in the [facility] ED 12/02 morning, CXR showing SHI density likely infections and LLL nodule as previously seen. Pt was afebrile and with normal WBC, sent home on Azithromycin/Doxycycline for CAP. At home patient still having intermittent fevers this time with chillsand worse SOB worsened with exertion. became concerned and brought patient to the ER this morning. Of note patient had been on Keytruda and there was concern from the Heme/Onc team for pneumonitis. There was a miscommunication between the patient and the oncology team and patient took Dexamethasone 4mg po daily from the end of August through end of October 2023. He has subsequently been taken off this medication. 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 Has cats and dogs at home, n[place] travel outside [place], no known sick contacts. Since admission patient has been afebrile with WBC 4.87. Legionella urine antigen negative, Streptococcus pneumoniae antigen pending, Respiratory pathogen panel negative. CTA chest showing no evidence of pulmonary embolism, interval worsening scattered infiltrates in the lungs which may represent pneumonia. No significant change of the 2.6 cm nodule in the left lower lobe. Patient given 1 dose ofZosyn and switch to cefepime, also on azithromycin and vancomycin. ALLERGIES: Carboplatin and Isosorbide nitrate PAST MEDICAL HISTORY: Past Medical History: Diagnosis Date Pneumonia PAST SURGICAL HISTORY: Past Surgical History: Procedure Laterality Date COLONOSCOPY, DIAGNOSTIC (RECTUM) N/A 08/13/2019 COLONOSCOPY FLEXIBLE PROXIMAL DIAGNOSTIC performed by Pavan Villaseñor MD at ENDOSCOPY [facility] IR VENOUS ACCESS MEDIPORT 04/24/2021 IR VENOUS ACCESS MEDIPORT 08/01/2021 IR VENOUS ACCESS MEDIPORT 10/15/2023 VASECTOMY SOCIAL HISTORY: Social History Tobacco Use Smoking status: Never Smokeless tobacco: Never Vaping Use Vaping Use: Never used Substance Use Topics Alcohol use: Not Currently Comment: occasionally Drug use: No FAMILY HISTORY and FAMILY STATUS: Family History Problem Relation Age of Onset Diabetes Father Hypertension Father Heart attack Father Fatal [place] age 74 No Known Problems Mother No Known Problems Sister No Known Problems Brother Lymphoma Niece Family Status Relation Status Fa Mo Alive Sis Alive Bro Alive Aries Alive AUNT Alive UNCLE Alive MGMA MGFA PGMA PGFA Aries Alive Niece Alive ROS: Constitutional: Fever/chills Eyes: No pain, drainage, vision change HENT: Intermittent headache Cardiovascular: No chest pain, palpitations, lower extremity swelling Respiratory: Shortness of breath, no cough or sputum production Gastrointestinal: No abdominal pain, nausea/vomiting, indigestion/heartburn Skin: No rash, lesions Neurological: No dizziness, weakness, confusion, sensory changes PHYSICAL EXAMINATION: Most Recent Vital Signs: BP: 133 mmHg/79 mmHg (12/05/23 1400) Pulse: 84 (12/05/23 1200) Temp: 37.61 C (12/05/231199) Temp Summary: Temp Min: 36.9 C (98.4 F) Max: 37.8 C (100 F) SpO2: 93 % (12/05/231399) O2 flow rate: 0 L/MIN (12/05/231399) Supplemental O2 Delivery: Room Air, None (12/05/231399) Vital Signs Last 24 Hours: Systolic BP: Most Recent Systolic BP Av mmHg Min: 102 mmHg Max: 133 mmHg Temperature: Most Recent Temperature Av.5 C Min: 36.89 C Max: 37.78 C Pulse: Pulse Av.8 Min: 77 Max: 91 Respirations: Resp Av.3 Min: 16 Max: 24 SpO2: SpO2 Av.5 % Min: 92 % Max: 98 % General: Appears in no acute distress Eyes: Pupils equal and reactive to light, no photophobia Cardiovascular: S1/S2, no murmurs appreciated Respiratory: Equal air exchange bilaterally, no wheezing/rhonchi/rales Abdomen: Soft, nontender to palpation, non-distended Musculoskeletal: No gross deformity, no neck stiffness Skin: No rashes, lesions Neurological: AAOx3, clear speech, sensory intact, motor 5/5, no focality, LABS: Labs reviewed as indicated below: Lab results within last 7 days (see chart for full results) Units 12/05/23 0527 12/04/23 1825 12/02/23 1003 WBC K/uL 4.87 5.06 4.44 Creatinine mg/dL 0.9 0.9 1.0 BUN mg/dL 10 12 8 Estimated Glomerular Filtration Rate mL/min >90 >90 >90 MICROBIOLOGY DATA: 12/02 Bclx: No growth to date 12/04 Bclx: no growth to date 12/05 Sputum culture: Pending 12/04 Strep P. Urine antigen pending, legionella Uag negative 12/04 RPP: negative IMAGING: CTA Chest: 1. No evidence for pulmonary embolism. 2. Interval worsening of scattered infiltrates in the lungs, which may represent pneumonia. 3. No significant interval change of a 2.6 cm nodule in the left lower lobe. 4. Interval improvement of retroperitoneal adenopathy. 5. 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 IMPRESSION: 53-year-old man with active NSCLC on chemotherapy with bony Mets cervical spine presenting for approximately 1 week intermittent fever/cough/headaches. Patient had exposure to daily dexamethasone from the months of August to October 2023. Differential at this time includes community-acquired pneumonia, drug-induced pneumonitis, more nefarious pathologies which may present to to his immunocompromise state. Okay to treat as community-acquired pneumonia for this time, if pending sputum cultures non revealing we will likely recommend need for BAL to further define the causative agent. Bilateral upper lobe opacities likely CAP vs. Drug-induced pneumonitis, r/o opportunistic organisms NSCLC on chemotherapy, with bony metastasis Hx PE on lovenox Hx CVA RECOMMENDATIONS: -Discontinue cefepime -Start Ceftriaxone 2g IV qd -Discontinue Azithromycin, Legionella Urine antigen is negative -If sputum culture is not revealing will have to consider BAL -ID will continue to follow Case discussed with ID Attending Dr. Ubaldo Chi MD Infectious Disease PGY-4 [facility] Associated attestation - Willy Conner MD - 12/05/2023 3:58 PM EST I saw and evaluated the patient today. I have reviewed the trainee note and agree. Patient admittedwith progressive dyspnea and fever. No significant cough. Today on room air, but still feels limited. CT non-specific-- not an obvious case of CAP. WBC normal with normal diff and procal not significantly elevated. OK to treat for CAP now, but if no ongoing improvement, will need bronch. Final abx plans pending. Willy Conner MD * Dav Ramires, DO - 12/05/2023 12:27 PM ESTAssociated Order(s): THORACIC MEDICINE / PULMONOLOGY CONSULT IP Images from the original note were not included. THORACIC / PULMONARY MEDICINE CONSULT [address] [address] Name: John Mancilla Date: 12/05/2023 Time: 12:28 PM REQUESTING SERVICE: Tony Campovered REASON FOR CONSULT: "53 yo male with NSCLC on chemo, immunosuppressed, new patchy infiltrates lung findings, would you please evaluate for need to get a bronchoscopy" ADMIT DATE: 12/04/2023 HISTORY OF PRESENT ILLNESS: History obtain bedside from patient and collateral via chart review. 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 Patient states that his shortness of breath began over the weekend insidiously with a transient low-grade fever; however, patient had more profound dyspnea on Saturday and on the recommendation of his primary oncologist, reported to the ED on Saturday. Chest imaging was suggestive of multifocal pneumonia, of which he was prescribed amoxicillin and doxycycline. He returned to the ED today stating thathe was not feeling any better, most concerning to him was feeling more fatigue and lethargy. Yesterday he had a more persistent fever of T-max 101 at home. Patient states he has been taking Tylenolaround the clock. Again by urging of primary Oncology, patient was recommended to present to the emergency department for IV antibiotic therapy. On presentation to ED again today, imaging is suggestive of worsening of bilateral infiltrates Of note, patient's last chemotherapy treatment was 11/21/2023. Incidentally, he was also taking Decadron 4 mg oral daily, however, this was discontinued on 11/24. No taper was completed, and medication was not intended to be a daily med but patient misunderstood and did take it daily by mistake. PAST MEDICAL HISTORY: Past Medical History: Diagnosis Date Pneumonia PAST SURGICAL HISTORY: Past Surgical History: Procedure Laterality Date COLONOSCOPY, DIAGNOSTIC (RECTUM) N/A 08/13/2019 COLONOSCOPY FLEXIBLE PROXIMAL DIAGNOSTIC performed by Pavan Villaseñor MD at ENDOSCOPY [facility] IR VENOUS ACCESS MEDIPORT 04/24/2021 IR VENOUS ACCESS MEDIPORT 08/01/2021 IR VENOUS ACCESS MEDIPORT 10/15/2023 VASECTOMY FAMILY HISTORY: Family History Problem Relation Age of Onset Diabetes Father Hypertension Father Heart attack Father Fatal [place] age 74 No Known Problems Mother No Known Problems Sister No Known Problems Brother Lymphoma Niece SOCIAL HISTORY: Social History Tobacco Use Smoking status: Never Smokeless tobacco: Never Vaping Use Vaping Use: Never used Substance Use Topics Alcohol use: Not Currently Comment: occasionally Drug use: No ALLERGIES: Carboplatin and Isosorbide nitrate ROS: Constitutional: (-) weight change, (-) chills (+) fever ENT: (-) negative: no headaches, vertigo, hearing loss, sinus, ear, or throat problems Cardiovascular: (-) chest pain, (-) lower extremity edema Pulmonary: (+) dyspnea with exertion, (+) shortness of breath, (+) cough with phlegm Abdominal/GI: (-) negative: no pain, heartburn, dysphagia, bleeding, change in bowel habits, nauseaor vomiting Musculoskeletal: (-) negative: no pain Hematology/oncology: (-) negative: no fever, night sweats, masses, or swollen nodes Skin: (-) negative: no rash or new or changing moles Neurology: (-) negative: no focal neurologic defect Psychiatry: (-) negative: no depression or anxiety Endocrine: (-) polyuria, (-) polydipsia, (-) temperature Intolerance Genitourinary: (-) dysuria, (-) urinary frequency, (-) hematuria, (-) flank pain PHYSICAL EXAMINATION: Oxygen Requirements: O2 Mode: O2 %: O2 Flow Rate: O2 flow rate: 2 L/MIN (12/05/23 0800) IPAP: CPAP/EPAP: Vital Signs Last 24 Hours: Systolic BP: Most Recent Systolic BP Av.5 mmHg Min: 102 mmHg Max: 127 mmHg Temperature: Most Recent Temperature Av.5 C Min: 36.89 C Max: 37.78 C Pulse: Pulse Av.8 Min: 77 Max: 91 Respirations: Resp Av.3 Min: 16 Max: 24 SpO2: SpO2 Av.6 % Min: 92 % Max: 98 % Eyes - PERRLA, EOM intact ENT - dry mucosa Neck - No noticeable or palpable swelling, redness or rash around throat or on face Cardiovascular - RRR no JVD Lungs - good inspiratory effort with bilateral air entry appreciated. Coarse breath sounds noted throughout all lung george. No use of accessory muscles. Crackles noted to bibasilar regions. No wheezing. Skin - No rashes, skin warm and dry, no erythematous areas Abdomen - Normal bowel sounds, abdomen soft and nontender Extremeties - No edema, cyanosis or clubbing Musculo Skeletal - No overt abnormality Neurological - Alert and oriented x 3 LABS: Reviewed as below Latest Reference Range & Units 12/05/23 00:48 12/05/23 05:27 Temperature C 37.0 pH, Venous 7.320 - 7.430 units 7.448 (H) pCO2, Venous 40.0 - 60.0 mmHg 35.9 (L) pO2, Venous 25.0 - 50.0 mmHg 48.1 O2 Content, Venous 7.0 - 18.0 %vol 14.3 Oxyhemoglobin, Venous 40.0 - 85.0 % total Hgb 82.0 Base Excess, Venous -2.0 - 2.0 mmol/L 1.2 Carboxyhemoglobin, Whole Blood <=1.5 % total Hgb 1.5 Methemoglobin, Whole Blood <=1.5 % total Hgb 0.6 Reduced Hemoglobin, Venous % total Hgb 15.9 Sodium 135 - 146 mmol/L 140 Potassium 3.5 - 5.1 mmol/L 3.1 (L) Chloride 98 - 107 mmol/L 106 CO2 22 - 32 mmol/L 23 BUN 6 - 20 mg/dL 10 Creatinine 0.6 - 1.2 mg/dL 0.9 Estimated Glomerular Filtration Rate >=60 mL/min >90 Anion Gap 7 - 15 mmol/L 11 Glucose 70 - 120 mg/dL 125 (H) Calcium 8.4 - 10.2 mg/dL 8.1 (L) Magnesium 1.5 - 2.6 mg/dL 2.2 Phosphorus 2.5 - 4.8 mg/dL 3.4 Bicarbonate, Whole Blood 23.0 - 31.0 mmol/L 24.5 LD <=250 U/L 440 (H) CBC Rpt ! WBC 4.00 - 10.80 K/uL 4.87 HGB 14.0 - 16.8 g/dL 12.2 (L) Hemoglobin, Whole Blood 14.0 - 16.8 g/dL 12.4 (L) HCT 40.0 - 48.4 % 36.1 (L) MCV 82.0 - 99.5 fL 95.0 PLT 140 - 400 K/uL 289 (H): Data is abnormally high (L): Data is abnormally low !: Data is abnormal Rpt: View report in Results Review for more information PFT 04/07/2021:No additional studies for comparison CHEST X-RAY: EXAM XR CHEST 2 VIEWS-12/04/2023 7:23 pm HISTORY [...] nodules better demonstrated on prior CT. CT CHEST: EXAM EXAM: CT PULMONARY EMBOLUS W CONTRAST; CT ABD/PELVIS [...] AND GENOVEVA: Unremarkable CHEST WALL/SOFT TISSUES: Unremarkable ABDOMEN/PELVIS: LIVER: Again identified is a tiny hypodense lesion in the right hepatic lobe which is too small to accurately characterize but may represent a cyst. BILE DUCTS: Unremarkable GALLBLADDER: Unremarkable PANCREAS: Unremarkable SPLEEN: Unremarkable ADRENALS: Unremarkable KIDNEYS/URETERS: Unremarkable BLADDER: Unremarkable BOWEL: Unremarkable LYMPH NODES: Previously described retroperitoneal adenopathy is improved. For example, a left periaortic lymph node previously measuring 1.3 cm in short axis now measures 0.8 cm. No new adenopathy isidentified. A prominent periportal lymph node appears unchanged. VESSELS: Unremarkable REPRODUCTIVE ORGANS: Unremarkable PERITONEUM/RETROPERITONEUM: Unremarkable ABDOMINAL WALL/SOFT TISSUES: There is a small fat containing umbilical hernia. BONES: There are degenerative changes in the spine. There is mild anterolisthesis of L5 on S1 secondary to bilateral L5 pars defects. Similar appearance of a blastic lesion at L1 and L4. Similar appearance of blastic lesion T12 and the pelvis. IMPRESSION IMPRESSION 1. No evidence for pulmonary embolism. 2. Interval worsening of scattered infiltrates in the lungs, which may represent pneumonia. 3. No significant interval change of a 2.6 cm nodule in the left lower lobe. 4. Interval improvement of retroperitoneal adenopathy. 5. 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 PULMONARY IMPRESSION: Acute hypoxemic respiratory insufficiency in the setting of likely infectious etiology of community-acquired pneumonia, with underlying metastatic NSCLC, less likely OP/HP/EP PULMONARY SUGGESTION(S): Agree with continuation of broad-spectrum antibiotics, defer final agent choice to Infectious Disease colleagues, including institution of PJP therapy; recommend sending lower respiratory culture if able to produce sputum, blood cultures and strep pneumo antigen pending and negative RVP/Legionella Recommend holding off on invasive bronchoscopy at this time, with re-evaluation of utility if patient has worsening of clinical deterioration despite being on broad-spectrum agents/persistent fevers on appropriate therapy Flutter valve, incentive spirometry for on going pulmonary hygiene Patient seen and discussed with Dr Ramires, Pulmonary / Thoracic Medicine Attending. Nirmala Rousseau MD Fellow Pulmonary & Critical Care Medicine Attending Attestation: I have discussed the patient's management with the medical trainee and agree with the note. Please refer to the documented findings and plan of care. The patient's bedside service today consisted of an evaluation. I was present and confirmed the findings of the history and exam. CT chest personallyvisualized, new patchy primarily SHI airspace opacities with peribronchial thickening, stable bilateral lower lobe opacities related to known malignancy. Differential includes infectious pneumonia including typical CAP vs more opportunistic pathogens given immunocompromised state, progressive malignancy, checkpoint inhibitor pneumonitis, there may be a component of pulmonary edema as well (has been gaining fluid weight/swelling on prednisone). He feels improved with initiation of iv antibioticsas well as diuresis. Would continue treating with antibiotics and diuresis. If he does not improve as expected can consider bronchoscopy for further evaluation. * Grayson Bello PA-C - 12/05/2023 7:10 AM ESTAssociated Order(s): ONCOLOGY CONSULT IP CONSULT - Oncology [facility] [place]-[address] [id number] Name: John Mancilla Location: Date: 12/05/2023 Time: 7:17 AM REQUESTING SERVICE: medicine REASON FOR CONSULT: pneumonia REFERRING PHYSICIAN: Loly DIAGNOSIS: pneumonia HISTORY OF PRESENT ILLNESS: Mr. Mancilla is a 53 y/o w a pmhx of PE on lovenox, stroke, and metastatic NSCLung ca LLL w mets to hilum, mediastinum, L SCV followed by Dr. Foote. She was dx in 01/15 and tx w carbo/alimta/avastin starting in 05/17 x 4C and followed w pembro/alimta. Due to progressive disease, he was placed on carbo/paclitaxel/ pembro in 10/19 due to progressive disease and he received C3 on 11/21/23. He was admitted to medicine after presenting w fevers and SOB since Saturday. Seen w and daughter in ER. Pt w increasing SOB and fevers that started on Saturday. Went to the ER on Saturday night/Saturday and was dx w pna and discharged on doxy/azithromax. Continued to have fevers, worsening SOB/ALDRIDGE, and fatigue. He is not improved this am but now has O2 off. Also notes recentrecurrent RAMIREZ and yesterday notes he had a episode of staring/confusion vs panic attack yesterday w SOB that was brief and he is not confused now and no episodes like this at home. Denies recent n/v/d/cp. Of note, mentioned that he has been on decadron from 09/19-11/24/23 by mistake as they thought it was every day. PAST MEDICAL HISTORY: Past Medical History: Diagnosis Date Pneumonia PAST SURGICAL HISTORY: Past Surgical History: Procedure Laterality Date COLONOSCOPY, DIAGNOSTIC (RECTUM) N/A 08/13/2019 COLONOSCOPY FLEXIBLE PROXIMAL DIAGNOSTIC performed by Pavan Villaseñor MD at ENDOSCOPY [facility] IR VENOUS ACCESS MEDIPORT 04/24/2021 IR VENOUS ACCESS MEDIPORT 08/01/2021 IR VENOUS ACCESS MEDIPORT 10/15/2023 VASECTOMY FAMILY HISTORY: Family History Problem Relation Age of Onset Diabetes Father Hypertension Father Heart attack Father Fatal [place] age 74 No Known Problems Mother No Known Problems Sister No Known Problems Brother Lymphoma Niece SOCIAL HISTORY: Social History Tobacco Use Smoking status: Never Smokeless tobacco: Never Vaping Use Vaping Use: Never used Substance Use Topics Alcohol use: Not Currently Comment: occasionally Drug use: No ALLERGIES: Carboplatin and Isosorbide nitrate ROS: see hpi. all others negative PHYSICAL EXAM: Most Recent Vital Signs: BP: 121 mmHg/74 mmHg (12/05/23 0200) Pulse: 91 (12/05/23 0200) Temp: 37.61 C (12/05/23 0000) Temp Summary: Temp Min: 36.9 C (98.4 F) Max: 37.7 C (99.9 F) SpO2: 98 % (12/05/23 020) O2 flow rate: 2 L/MIN (12/05/23 0300) Supplemental O2 Delivery: Nasal Cannula (12/05/23 030) Constitutional: NAD, some dyspnea w talking but off O2 and able to answer ROS Head: NC/AT, no masses Ears/Nose/Eyes: No nasal drainage, Sclera clear and EOMI, Pupils equal and round Mouth/Throat: No lip/oral lesions, dentition good, MMM Neck: supple, trachea midline, no lymphadenopathy CV: Regular rhythm and rate, no murmur appreciated, +2 radial and posterior tib pulses, no peripheral edema Respiratory: Normal resp rate and effort on RA, some scatt rhonchi, RLL crackles Abdomen: Soft, nontender, nondistended, normoactive bowel sounds Musculoskeletal: Normal ROM in extremities, normal strength, No joint pain, no signs of trauma Skin: Dry, warm, intact, no rashes or masses noticed Neuro: AAOx3, no focal neurological deficits, follow commands Psych: Appropriate mood/affect, answers question appropriately PE: ECOG PS 2 LABS: CHEMISTRY: BUN, Creatinine, GFR Estimated, Sodium, Potassium, Chloride, Carbon Dioxide, Glucose, Calcium (see below for most recent value): Lab Results Component Value Date/Time BUN 10 12/05/2023 05:27 AM BUN 15 01/03/2017 10:13 AM CREAT 0.9 12/05/2023 05:27 AM CREAT 1.0 01/03/2017 10:13 AM GFRESTIMATED >60.0 01/03/2017 10:13 AM NA 140 12/05/2023 05:27 AM NA 141 01/03/2017 10:13 AM POTASSIUM 3.1 (L) 12/05/2023 05:27 AM POTASSIUM 3.8 01/03/2017 10:13 AM CL 106 12/05/2023 05:27 AM CL 101 01/03/2017 10:13 AM CO2 23 12/05/2023 05:27 AM CO2 28 01/03/2017 10:13 AM CA 8.1 (L) 12/05/2023 05:27 AM CA 8.9 01/03/2017 10:13 AM BLOOD COUNT: WBC, Hgb, Platelets (see below for most recent value): Lab Results Component Value Date/Time WBC 4.87 12/05/2023 05:27 AM WBC 5.03 01/09/2019 12:02 PM HGB 12.2 (L) 12/05/2023 05:27 AM HGB 13.8 (L) 01/09/2019 12:02 PM PLT 289 12/05/2023 05:27 AM PLT 222 01/09/2019 12:02 PM RADIOLOGY: IMPRESSION 1. No evidence for pulmonary embolism. 2. Interval worsening of scattered infiltrates in the lungs, which may represent pneumonia. 3. No significant interval change of a 2.6 cm nodule in the left lower lobe. 4. Interval improvement of retroperitoneal adenopathy. 5. 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 ASSESSMENT: Stage IV Metastatic adenocarcinoma NSCLC Acute hypoxic respiratory failure, on 2 L nasal cannula Multifocal pneumonia verses pneumonitis History of DVT and PE, on Lovenox Headaches RECOMMENDATIONS: Mr. Mancilla is a 53 y/o w a pmhx of PE and stroke on lovenox w a pmhx of metastatic NSCLung ca currently on carbo/paclitaxel/ pembro and admitted w SOB and fevers. Worsening SOB fevers since Saturday and non responsive to doxycycline/ zithromax and CT w scattered infiltrates and exam w RLL crackles. Bacterial vs viral vs atypical vs keytruda pneumonitis notes that he has been taking decadron 4 mg daily since August (was only for during chemo but took it daily). Given this I am concerned about possible PJP. LD done is 440. Would consult ID and pulmonary for possible bronch. Will defer to ID but may want to hold on PJP tx until bronch is done. Would hold on steroids for now as keytruda pneumonitis is not top in differential but can revisit this is pt clinically declines. Recommend MRI brain given RAMIREZ. If further strokes or confusion episodes would get neurology and possible TTE w bubble/EEG. Overall his disease appears stable at this time. Will continue to follow. To be seen and discussed w Dr. Dong. I spent a total of 60 minutes coordinating, documenting, and providing care for this patient excluding time spent in the performance of separately billed services or time spent by another provider/QHP. Associated attestation - Yovani Dong MD - 12/05/2023 9:48 PM EST Images from the original note were not included. I have reviewed the advanced practitioner's documentation on the date of service referenced in note, and I agree with, and take responsibility for the plan of care. I spent a total of 85 minutes coordinating, documenting, and providing care for this patient excluding time spent in the performance of separately billed services or time spent by another provider/HP. D.D. include: 1- Pneumonia (CAP Vs PJP (has been on Decadron 4 mg po Q daily since Aug 2023) 2- irAE/pneumonitis 2/2 Pempro (Exacerbated after he stopped steroids last week) 3- Paclitaxil induced pneumonitis-less likely (Worsening SOB on the first few days of each chemo cycle) Plan: 1- Agree on Abx for now to treat infection, and watch for response 2- I discussed with Dr. Ramires from Pul, Will consider Bronch if no improvement. 3- Sputum culture was sent, will follow Plan discussed in details with patient, and his daughter at bedside. All questions answered. documented in this encounter Nursing Notes * Jessica Schwarz LPN - 12/12/2023 10:19 AM EST NURSING AMBULATION OXYGEN TEST [address] [address] Name: John Mancilla Location: [facility] B735/A Date: 12/12/2023 Time: 10:20 AM Date of test: 12/12/2023 (needs to be completed within 48 hours of discharge) O2 saturation on room air at rest: 97 % O2 saturation at rest is less than or equal to 88 %: no O2 saturation on room air during ambulation: 95 % O2 saturation during ambulation is less than or equal to 88 %: no * Jessica Schwarz LPN - 12/11/2023 3:46 PM EST NURSING AMBULATION OXYGEN TEST [address] [address] Name: John Mancilla Location: [facility] B735/A Date: 12/11/2023 Time: 3:46 PM Date of test: 12/11/2023 (needs to be completed within 48 hours of discharge) O2 saturation on room air at rest: 97 % on 2 Liters 90% on RA O2 saturation at rest is less than or equal to 88 %: no O2 saturation on room air during ambulation: 96% on 2 Liters 91 % on RA O2 saturation during ambulation is less than or equal to 88 %: no * Shanae Quinteros RN - 12/11/2023 1:00 PM EST Dual Licensed Skin Assessment completed by Patriica Quinteros rn and Jessica Chan LPN. The patient is/has a N/A Skin Breakdown (includes non blanchable erythema): No (small cut right side of lip ) * Levon Harman RN - 12/11/2023 12:13 PM EST Per verbal order, the physician has examined the patient, prescribed and verified the charted medication, and certified that he is recovered and may return to the nursing duffy. DISCHARGE PROGRESS NOTE - ENDOSCOPY [address] [address] Name: John Mancilla Location: ENDO [facility] HFAM/Endo Date: 12/11/2023 Time: 12:14 PM Patient is discharged under the care of : Jessica LARKIN and transport Report called to Inpatient unit [id number] Means of transportation: stretcher Bronchoscopy: N/A Oxygen support: Yes - Patient placed back on portable O2 tank at 2 liter prior to Patient Transports arrival. Oxygen tank checked for appropriate level of oxygen storage. * Ariella Brewer RN - 12/11/2023 11:35 AM EST Specimen(s) and location(s) verified with physician post procedure 11:35 AM * Ariella Brewer RN - 12/11/2023 11:09 AM EST Procedure being completed under general anesthesia. Please see anesthesia record for medications and vital signs. * Tricia Bright RN - 12/06/2023 7:43 AM EST 0630 pt reported dizziness and nausea, vs stable, Neuro checks at baseline, pt had just tom up to the restroom with assistance. Pt states he "just doesn't feel right". Notified director of compensation Shereen MAS at [phone], waited for response, checking on pt, states pt is having a lot of anxiety and has been having "these panic attack" since he started with the shortness of breath. Pt spo2 92%, lungsdiminished, helping with relaxation techniques. New order given by Dr Viet Mccartney for zofran and ativan, administered, pt laying in bed with doing some breathing exercises and appears to be calming down, report given to day shift nurse CHAYA Gordon. * Tricia Bright RN - 12/06/2023 7:42 AM EST Dual Licensed Skin Assessment completed by Tricia Rodriguez RN and Gurwinder Mcgovern RN. The patient is/has a N/A Skin Breakdown (includes non blanchable erythema): No * Flavia Sanches RN - 12/05/2023 5:21 PM EST Hand-Off - Nurse Communication Note Name: John Mancilla Location: Date: 12/05/2023 Time: 5:22 PM Sending to: [id number] Safety Concerns: None Allergies: Carboplatin and Isosorbide nitrate Code Status: Full Code Isolation: None Isolation flowsheet: Special Needs: Special Needs comments: Attention to: BP7 charge nurse Report from: FLAVIA SANCHES RN Phone extension: Patient arriving via: Stretcher Reason for SBAR handoff: Admission Situation/Background Patient is a 53 year old male medical history of active NSCLC, PE on Lovenox, CVA admitted to the hospital on 12/04/2023. Patient's family at bedside to assist with history. Since last Saturday patientexperiencing shortness of breath and intermittent fever (tympanic measurements) and headache at home to Tmax 101F. Patient without sputum production during this time. Furthermore, states that attimes he seems confused and is unable to express himself clearly, this is brief but was noticeable to the while family. Was seen in the [facility] ED 12/02 morning, CXR showing SHI density likely infections and LLL nodule as previously seen. Pt was afebrile and with normal WBC, sent home on Azithromyc in/Doxycycline for CAP. At home patient still having intermittent fevers this time with chills and worse SOB worsened with exertion. became concerned and brought patient to the ER this morning. Of note patient had been on Keytruda and there was concern from the Heme/Onc team for pneumonitis. There was a miscommunication between the patient and the oncology team and patient took Dexamethasone 4mg po daily from the end of August through end of October 2023. He has subsequently been taken off this medication. 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 Has cats and dogs at home, n[place] travel outside [place], no known sick contacts. Since admission patient has been afebrile with WBC 4.87. Legionella urine antigen negative, Streptococcus pneumoniae antigen pending, Respiratory pathogen panel negative. CTA chest showing no evidence of pulmonary embolism, interval worsening scattered infiltrates in the lungs which may represent pneumonia. No significant change of the 2.6 cm nodule in the left lower lobe. Patient given 1 dose ofZosyn and switch to cefepime, also on azithromycin and vancomycin. 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 * Level of Care: Med Surg [3] Assessment Vital Signs: BP: 124/65 (12/05/23 1600) Temp: 37.6 C (99.7 F) (12/05/23 1200) Pulse: 84 (12/05/23 1200) Resp: 20 (12/05/23 1200) SpO2: 98 % (12/05/23 1600) Fall Scale: Fall Score: 20 (12/05/23 1000) Fall Interventions: Bed at low level;Yellow armband applied/intact and on patient;Floor free of clutter;Non-skid foot covering on (12/05/23 1000) Neurological: Gerardo Coma Scale Eyes Open: Spontaneous (12/05/23 1400) Best Verbal Response: Verbally appropriate for age (12/05/23 1400) Best Motor Response: Obeys commands appropriate for age (12/05/23 1400) Coma Score: 15 (12/05/23 1400) Additional Neurological Information: Respiratory: Respiratory WNL: X - Exceptions to WNL as documented below (12/04/231805) Cough: (S) Hacking (12/05/23899) Depth/Rhythm: Regular (12/05/23899) Dyspnea Occurance: None (12/05/23899) Effort: Unlabored (12/05/23899) Oxygen therapy/ Mechanical vent O2 flow rate: 0 L/MIN (12/05/23 1600) Supplemental O2 Delivery: Room Air, None (12/05/23 1600) O2 flow rate: 0 L/MIN (12/05/23 1600) Additional Respiratory Information: Cardiac: Rhythm: Regular;NSR (12/05/23899) Pulses Right: Radial +;Palpable (12/04/231805) Pulses Left: Radial +;Palpable (12/04/23 180) Capillary Refill: 2 sec (12/05/23899) Additional Cardiac Information: GI/: Abdomen: Soft;Non-tender (12/05/23899) External Male Catheter Output (mL): 800 mL (12/05/23 1000) Additional GI/ Information: Integumentary: Skin Description: Dry;Warm (12/05/23899) Skin Color: Flesh Tone (12/05/23899) Additional Integumentary Information: Restraints: No orders of the defined types were placed in this encounter. Lines: Peripheral Line Left Antecubital 20 Gauge (Active) Status Fluids infusing 12/05/23 1000 Tubing Changed N/A 12/05/23 1000 Phlebitis Scale 0 12/05/23 1000 Infiltration Scale 0 12/05/23 1000 Site Description (Other) Without redness, swelling or drainage 12/05/23 1000 Site Intervention None required 12/05/23 1000 Dressing Assessment Dressing clean, dry, and intact 12/05/23 1000 Dressing Intervention None required 12/05/23 1000 Number of days: 1 Implanted IV Device Right Chest (Active) Status Not Accessed 12/05/23 1000 Number of days: 51 Labs: Labs This Encounter COMPREHENSIVE METABOLIC PANEL - Abnormal; Notable for the following components: Result Value Ref Range Potassium 3.3 3.5 - 5.1 mmol/L Glucose 122 70 - 120 mg/dL ALT 68 10 - 50 U/L All other components within normal limits BLOOD GAS, VENOUS - Abnormal; Notable for the following components: pO2, Venous 22.2 25.0 - 50.0 mmHg Base Excess, Venous 2.5 -2.0 - 2.0 mmol/L Hemoglobin, Whole Blood 9.5 14.0 - 16.8 g/dL Oxyhemoglobin, Venous 30.4 40.0 - 85.0 % total Hgb O2 Content, Venous 4.1 7.0 - 18.0 %vol All other components within normal limits CBC - Abnormal; Notable for the following components: HGB 13.2 14.0 - 16.8 g/dL HCT 39.0 40.0 - 48.4 % nRBCs 1 <=0 /100 WBCs All other components within normal limits DIFFERENTIAL, AUTOMATED - Abnormal; Notable for the following components: Monocytes % 15.2 1.0 - 11.0 % All other components within normal limits URINALYSIS, REFLEX TO CULTURE - Abnormal; Notable for the following components: WBC, Urine 3-5 0 - 2 /HPF Transitional Epithelial Cells, Urine 1-4 None /HPF All other components within normal limits BLOOD GAS, VENOUS - Abnormal; Notable for the following components: pH, Venous 7.448 7.320 - 7.430 units pCO2, Venous 35.9 40.0 - 60.0 mmHg Hemoglobin, Whole Blood 12.4 14.0 - 16.8 g/dL All other components within normal limits BASIC METABOLIC PANEL - Abnormal; Notable for the following components: Potassium 3.1 3.5 - 5.1 mmol/L Glucose 125 70 - 120 mg/dL Calcium 8.1 8.4 - 10.2 mg/dL All other components within normal limits CBC - Abnormal; Notable for the following components: HGB 12.2 14.0 - 16.8 g/dL HCT 36.1 40.0 - 48.4 % All other components within normal limits LD - Abnormal; Notable for the following components: LD 440 <=250 U/L All other components within normal limits RESPIRATORY PATHOGEN PANEL, PCR - Normal TROPONIN T, HIGH SENSITIVITY - Normal LEGIONELLA ANTIGEN, URINE - Normal MAGNESIUM - Normal PHOSPHORUS - Normal CBC WITH WBC DIFFERENTIAL Narrative: The following orders were created for panel order CBC WITH WBC DIFFERENTIAL. Procedure Abnormality Status --------- ------ CBC[[id number]] Abnormal Final result DIFFERENTIAL, AUTOMATED[[id number]] Abnormal Final result Please view results for these tests on the individual orders. CULTURE, BLOOD CULTURE, BLOOD URINALYSIS, REFLEX TO CULTURE (NOT FOR NEUTROPENIC PATIENTS) Narrative: The following orders were created for panel order URINALYSIS, REFLEX TO CULTURE (NOT FOR NEUTROPENIC PATIENTS). Procedure Abnormality Status --------- ------ URINALYSIS, REFLEX TO CU...[[id number]] Final result URINALYSIS, REFLEX TO CU...[[id number]] Abnormal Final result Please view results for these tests on the individual orders. URINALYSIS, REFLEX TO CULTURE (CUP ONLY) CULTURE, RESPIRATORY, LOWER, AEROBIC STREPTOCOCCUS PNEUMONIAE ANTIGENS, URINE MRSA SCREEN, PCR Diet: Orders Placed This Encounter Procedures Regular Diet Additional Diet Information: Intake and Output: Intake/Output Summary (Last 24 hours) at 12/05/2023 1722 Last data filed at 12/05/2023 1401 Gross per 24 hour Intake 723.33 ml Output 1300 ml Net -576.67 ml Patient Belongings and Home Medications Patient Belongings at Bedside Belongings at Bedside: Clothing (12/05/23899) Clothing: Shirt;Pants;Footwear (12/05/23899) Patient Belongings Sent Home (Does not apply to Ambulatory areas) Belongings Sent Home: None (12/05/23899) Patient Belongings Sent to Safe/Locker Belongings Sent to Safe: None (12/05/23899) Patient Medications Medications Brought by Patient?: No (12/05/23899) Recommendations/Follow up Goals/Plan of Care: -Discontinue cefepime -Start Ceftriaxone 2g IV qd -Discontinue Azithromycin, Legionella Urine antigen is negative -If sputum culture is not revealing will have to consider BAL -ID will continue to follow Consults not completed: heme/onc Anticipated tests/studies/procedures: sputum culture Medication Reconcilliation completed for this Admission? 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 The patient was seen at 12/04/231815. Patient is presenting to the emergency department for evaluation of fevers and shortness of breath.His states that his symptoms started on Saturday and got progressively worse prompting them tocome to the emergency department on Saturday where he was found to have pneumonia. Patient was started on Augmentin and doxycycline and was discharged with instruction to return for any persistence or worsening of his symptoms. Patient states that his shortness of breath has worsened and he will develop fevers and headaches every 6 hours. Prompting them to come back to the emergency department for evaluation. He denies any chest pain, abdominal pain, nausea or vomiting Review of Systems All other systems reviewed and are negative. The patient's allergies, past history, and medications were reviewed. PHYSICAL EXAM Initial Vitals (see all): BP 127/78 | Pulse 82 | Resp 18 | Temp 98.4 | O2 95 %, Room Air, None | Weight 105.24 kg | Height 180.3 cm | BMI 32.38 kg/m2 Initial Pain Assessment (see all): 0 (no pain)/10, Aching, location: head ([facility] Adult Scale 0-10) Physical Exam Constitutional: General: He is not in acute distress. Appearance: He is not ill-appearing. HENT: Head: Normocephalic and atraumatic. Mouth/Throat: Mouth: Mucous membranes are moist. Pharynx: No posterior oropharyngeal erythema. Eyes: Extraocular Movements: Extraocular movements intact. Pupils: Pupils are equal, round, and reactive to light. Cardiovascular: Rate and Rhythm: Normal rate and regular rhythm. Pulmonary: Effort: Pulmonary effort is normal. Breath sounds: Decreased breath sounds and rales present. Abdominal: General: Abdomen is flat. Bowel sounds are normal. Palpations: Abdomen is soft. Tenderness: There is no abdominal tenderness. Musculoskeletal: General: Normal range of motion. Cervical back: Normal range of motion and neck supple. Skin: General: Skin is warm and dry. Capillary Refill: Capillary refill takes less than 2 seconds. Neurological: General: No focal deficit present. Mental Status: He is alert and oriented to person, place, and time. PROCEDURES AND TREATMENTS ED Orders | ED Results MEDICAL DECISION MAKING Nursing notes and vital signs were reviewed. ED consults were placed. ED Course as of 12/05/23 1409 SatDec 04, [id number] Temp: 36.9 C (98.4 F) Received Tylenol at 2:00 a.m. this afternoon [FM] 1914 CBC with WBC Differential(!) No significant leukocytosis or leukopenia. Hemoglobin stable [FM] 1914 Comprehensive Metabolic Panel(!) Slightly hypokalemic without any other significant electrolyte abnormalities. No significant rise in his LFTs [FM] 1915 Troponin T, High Sensitivity: 11 [FM] 1915 pH, Venous: 7.384 [FM] 1999 XR Chest 2 Views I interpreted the chest x-ray to be similar previous with left upper lobe opacity. [FM] 2126 Respiratory Pathogen Panel, PCR Negative [FM] 2126 Urinalysis, Reflex to Culture (Not for Neutropenic Patients)(!) No evidence of infection [FM] ED Course User Index [FM] Bean Pak DO Differential Diagnoses Based on my history, physical exam, and evaluation, the differential includes, but is not limited, to the following diagnoses: dysrhythmia, myocardial infarction, pneumonia, pulmonary embolism, sepsis, URI and viral syndrome. In summary, John Mancilla is a 53 year old male who presented with shortness of breath and fevers.Differential as above. Nursing notes and pertinent past medical records reviewed. Vital signs reviewed and stable. Detailed history obtained as above and significant for past medical history significant for metastatic lung cancer who was found to have pneumonia and started on outpatient treatment. Patient failed his initial oral antibiotics having persistent fevers and worsening shortness of breath prompting him to come to the emergency department for evaluation. Physical exam was remarkable for diminished breath sounds with rales bilaterally. Patient completed laboratory studies and imaging. The pertinent lab/imaging results are seen above.I reviewed and interpreted the imaging which was significant for stable opacities from previous chest x-rays. I discussed the patient with Oncology who recommended a medicine admission with Oncology follow- up in the morning. Patient was started on Zosyn for broad-spectrum coverage as we await his blood cultures. Sputum culture unable to be obtained. I discussed the patient with the medicine team to evaluate potential admission. Patient was admitted to the medicine service for further workup and evaluation of his pneumonia Amount and/or Complexity of Data Reviewed Labs: ordered. Decision-making details documented in ED Course. Radiology: ordered and independent interpretation performed. Decision-making details documented in ED Course. Details: My interpretation of the x-ray reveals no fractured ribs Risk OTC drugs. Prescription drug management. Decision regarding hospitalization. Clinical Impressions Pneumonia Disposition Admitted. I discussed the management of this patient with the admitting provider and I made a decision to admit the patient. Admission Order Ordered Status . 12/04/232023 Admit for Inpatient Services (incl ZPO) ONCE Completed 12/04/232019 Admit for Inpatient Services (incl ZPO) ONCE Completed Lavell Jeter was the attending physician who supervised the care of this patient. Bean Pak DO ATTENDING ATTESTATION I have seen and examined this patient on the 12/04/2023 visit. I have discussed the patient's management with the provider listed above and agree with the note, findings, and plan of care. documented in this encounter Miscellaneous Notes * Ancillary Progress Note - Moises Sheffield RN - 12/12/2023 12:34 PM EST CARE MANAGEMENT - ADULT DISCHARGE NOTE [facility]-[address] [address] Name: John Mancilla Location: [facility] B735/A Date: 12/12/2023 Time: 12:34 PM The following coordination of care and discharge plan has been coordinated with the care team, patient, family and/or caregiver according to the patients needs and preferences. Discharge Discharge Second Notice Important Message from Medicare delivered: Not Applicable (12/12/23 123) Was Caregiver/Family/Facility contacted regarding discharge: Yes (12/12/23 123) Discharge Transportation: Family/Friends drive (12/12/23 123) Patient declined post-hospital transition of care recommendation: N/A (12/06/23 1402) Final Discharge Plan (Complete only at time of Discharge): Home with Services ([employer] [facility]-oxygen needs) (12/12/231233) Destination - Admitted Since 12/04/2023 No services have been selected for the patient. Destination - Episodes Includes Destination providers with selected services from the active episodes listed below Level 2 Complex Case Management Episode start date: 08/21/2023 There are no active outsourced providers for this episode. Durable Medical Equipment - Admitted Since 12/04/2023 Service Provider Selected Services Address Phone Fax Patient Preferred Last Updated [facility] Medical Equipment [facility] [employer]urable Medical Equipment [facility] [id number] -- Moises Sheffield, RN 12/12/2023 1223 Durable Medical Equipment - Episodes Includes Durable Medical Equipment providers with selected services from the active episodes listed below Level 2 Complex Case Management Episode start date: 08/21/2023 There are no active outsourced providers for this episode. Narrative: Patient discharged home with [employer] [facility] for oxygen needs at home. Pt's transporting pt home at discharge. [employer] made aware of pt's discharge. [facility] at discharge- [facility] made aware via Erika. I have conducted the discharge appointment with the patient (ph: at bedside, provider- Tian Duran), Care Management, nursing, and provider on 12/12/2023 at 1100 . This discussion occurred bedside, phone, and other IDTs . Meds to beds offered: yes. The following post care is planned: PCP follow up. I encouraged the patient and/or family to call the hospital with any questions or concerns about the hospital admission. * Ancillary Progress Note - Moises Sheffield RN - 12/12/2023 11:57 AM EST CARE MANAGEMENT - ADULT TRANSITION NOTE [address] [address] Name: John Mancilla Location: [facility] B735/A Date: 12/12/2023 Time: 11:58 AM Risk Stratification Risk Stratification Psycho Social / Medical Concerns Identified: Multiple Comorbidities (12/06/23 140) Readmission Risk Score: 15.91 (12/12/23 0801) AM-PAC Score With Stairs : 23 (12/12/23 0725) Caregiver Information Patient Contacts Name Relation Home Work Mobile ROSE MARY MANCILLA Spouse [phone] IDRIS GRIJALVA Mother [phone] Transition of Care Checklist Transition of Care Checklist (aka Readmission Risk Score) Discharge Disposition: Home w/Home Health (12/06/231401) Home or Home w/Home Health: Moderate (12-17%) (12/06/231401) Narrative: CM spoke pt/pt's concerning oxygen needs at discharge. Pt has no preference for oxygen DME company. CM made referral to [facility] for oxygen with preference for [employer] [facility] for oxygen. Anticipated Transportation at Discharge: pt's Patient/Family Expectations: Pt to be discharged when medically stable. Transition Planning Transition Planning Transition Plan/Considerations: Needs uncertain at this time - Continue monitoring for needs (12/06/231401) Transition plan discussed with - Enter name and phone #: pt and bedside (12/06/231401) Insurance Considerations: N/A (12/06/231401) Referral to Community Agency : N/A (12/06/231401) Post-Acute Care needs identified and Referrals Completed: IV Infusion;Other - Comment (home health pending ID recs) (12/06/231401) Additional Considerations: Care Management will continue to monitor and assist with discharge planning needs * Care Plan - Karla Garcia RN - 12/12/2023 6:28 AM EST Problem: Pain & Impaired Comfort Goal: Patient's pain & discomfort is manageable. Outcome: Progressing Problem: Safety & Risk for Injury Goal: Patient will remain free from injury. Outcome: Progressing Problem: Daily Care & Potential Self-Care Deficit Goal: Patient's daily care needs are met. Outcome: Progressing Problem: Risk for Impaired Physical Mobility Goal: Patient will maintain optimal mobility level. Outcome: Progressing Problem: Knowledge Deficit Goal: Patient & caregiver will demonstrate understanding. Outcome: Progressing Problem: Discharge Barriers Goal: Patient's discharge needs are met. Outcome: Progressing Problem: Actual & Potential for Impaired Skin Integrity Goal: Patient will maintain skin integrity. Outcome: Progressing Goal: Patient will maintain adequate nutritional intake. Outcome: Progressing Problem: Actual & Potential for Falls Goal: Patient will remain free of falls. Outcome: Progressing Clinical Goal(s): Pt will maintain SpO2> 90% this shift. (12/11/23 2300) Possible barriers to meeting goal(s)/advancing plan of care: diagnosis on admission. Stability of the patient: Moderately unstable - medium risk of patient condition declining or worsening Summary regarding today's goal(s): Met: Recommendations: continue current POC * Care Plan - Shanae Quinteros RN - 12/11/2023 4:06 PM EST Problem: Daily Care & Potential Self-Care Deficit Goal: Patient's daily care needs are met. Outcome: Progressing Clinical Goal(s): pt will remain free from falls and injury this shift (12/11/23 0700) Possible barriers to meeting goal(s)/advancing plan of care: Disease process Stability of the patient: Moderately stable - low risk of patient condition declining or worsening Summary regarding today's goal(s): Met: Recommendations: Continue with plan of care * Ancillary Progress Note - Moises Sheffield RN - 12/11/2023 10:51 AM EST CARE MANAGEMENT - ADULT TRANSITION NOTE [facility] [address] Name: John aMncilla Location: [facility]/Endo Date: 12/11/2023 Time: 10:51 AM Risk Stratification Risk Stratification Psycho Social / Medical Concerns Identified: Multiple Comorbidities (12/06/23 1401) Readmission Risk Score: 15.68 (12/11/23 0801) AM-PAC Score With Stairs : 22 (12/10/23 1009) Caregiver Information Patient Contacts Name Relation Home Work Mobile ROSE MARY MANCILLA Spouse [phone] IDRIS GRIJALVA Mother [phone] Transition of Care Checklist Transition of Care Checklist (aka Readmission Risk Score) Discharge Disposition: Home w/Home Health (12/06/23 140) Home or Home w/Home Health: Moderate (12-17%) (12/06/23 140) Narrative: Patient discussed in IDT's today. Bronch done 12/11/23, cultures pending. Pt referral made to [facility]/accepted and IS referral made- need to update both as needed. CM will continue to follow pt to assess discharge needs. Encouraged pt to contact CM with any questions/concerns. Anticipated Transportation at Discharge: family/TBD Patient/Family Expectations: Pt to be discharged when medically stable. Transition Planning Transition Planning Transition Plan/Considerations: Needs uncertain at this time - Continue monitoring for needs (12/06/231401) Transition plan discussed with - Enter name and phone #: pt and bedside (12/06/231401) Insurance Considerations: N/A (12/06/231401) Referral to Community Agency : N/A (12/06/231401) Post-Acute Care needs identified and Referrals Completed: IV Infusion;Other - Comment (home health pending ID recs) (12/06/231401) Additional Considerations: Care Management will continue to monitor and assist with discharge planning needs * Care Plan - Bridgett Aponte RN - 12/10/2023 11:03 PM EST Clinical Goal(s): pt will remain free from falls (12/10/23 2300) Possible barriers to meeting goal(s)/advancing plan of care: environment Stability of the patient: Moderately stable - low risk of patient condition declining or worsening Summary regarding today's goal(s): Met: no fall this shift Recommendations: assist oob * Care Plan - Kellee Velazquez RN - 12/10/2023 7:46 PM EST Clinical Goal(s): Pt will maintian spo2 >92%. (12/10/23 1009) Possible barriers to meeting goal(s)/advancing plan of care: none Stability of the patient: Moderately stable - low risk of patient condition declining or worsening Summary regarding today's goal(s): Not Met: SpO2 drops to 86% on room air at times. Recommendations: Continue oxygen 2L/nc as needed. * Care Tanya - Bridgett Aponte RN - 12/10/2023 12:37 AM EST Clinical Goal(s): pt will be free from injury (12/09/23 2300) Possible barriers to meeting goal(s)/advancing plan of care: environment Stability of the patient: Moderately stable - low risk of patient condition declining or worsening Summary regarding today's goal(s): Met: no injuries this shift Recommendations: assist oob * Care Tanya - Kellee Velazquez RN - 12/09/2023 6:01 PM EST Clinical Goal(s): Pt will remain free from falls/injury this shift. (12/09/23 0814) Possible barriers to meeting goal(s)/advancing plan of care: weakness Stability of the patient: Moderately stable - low risk of patient condition declining or worsening Summary regarding today's goal(s): Met: no falls/injury this shift. SpO2 drops to 80's when sleeping. Pt was started on oxygen at 2L/nc while sleeping. Recommendations: Fall precautions. Continuous pulse ox monitoring. 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 presents at bedside, Reports that his appetite and oral intake has been fluctuating. Has been having taste changes due to chemo. He has mouth sores as well. Having intermittent nausea/vomiting. Last BM was on 12/07. He doesn't prefers thick supplements. He prefers juice and water, thin liquids. No chewing/swallowing difficulty reported. As per EHR, not a significant wt loss noted over a year, however, some wt gain noted over a month. Discussed and reviewed food preferences. Agreeable to try boost breeze. Encouraged to call the kitchen for food preferences. NUTRITION ASSESSMENT: Past medical/surgical history and medications reviewed. Food/Nutrition-Related History Diet: Regular Previously followed diet: Regular Food Allergies/Intolerances: None Adult Energy Intake: Less than 75% of estimated energy requirement for greater than 3 months (moderate, social/environmental). Pertinent medications/vitamins/minerals/supplements: Folic acid, potassium and sodium phosphate, potassium chloride, Pertinent Biochemical Data: Latest Reference Range & Units 12/09/23 09:10 Phosphorus 2.5 - 4.8 mg/dL 2.1 (L) (L): Data is abnormally low Supplemented Nutrition-Focused Physical Findings: Appearance: Ill-appearing Respiratory support: Supplemental O2 Delivery: Room Air, None Nasal/Oral: No issues identified Digestive: Appetite poor Last Bowel Movement: 12/07/23 (12/08/23 0900) Cognition: Awake, alert and Oriented Skin: Intact Nutrition Focused Physical Exam: NFPE completed on 12/09/23 Subcutaneous Fat Loss: Orbital fat pads: Moderate Buccal fat: WNL Tricep: Mild Muscle Loss: Temples: Mild Clavicles: WNL Shoulders: Mild Quadriceps: WNL Calves: WNL Anthropometrics Measurements Height: 180.3 cm (5' 11") (12/05/231808) Admission weight: 110.678 kg (244 lb) Weight: 110.7 kg (244 lb) (12/05/231808) BMI: 34.05 (12/05/231808) Usual Body Weight: 94 -101 kg per EHR [place] weight: 81 kg [place] Weight Based on BMI: 24.9 Adjusted ideal weight: 88.4 kg per EHR Interpretation of Weight Change Prior to Admission: Weight gain Nutrition Prescription: Energy needs: 25-30 Kcal/kg Kcal/day: 2775 -3330 Based on admission weight Protein needs: 1.25-1.5 gm/kg Protein: 101 -121 GM Based on [place] weight - 81 KG Fluid needs: 35 ml/kg Fluid: 3094 ml/day Based on adjusted ideal weight - 88.4 KG Malnutrition: Malnutrition Present: Yes (12/09/231432) Adult Malnutrition Classification: Moderate (12/09/231432) Malnutrition Characteristics: Fat loss;Muscle loss;Inadequate energy intake (12/09/231432) NUTRITION DIAGNOSIS: Suboptimal oral intake related to chemo related taste changes as evidenced by decreased oral intakeand appetite Increased nutrient needs calorie and protein related to cancer dx as evidenced by nutrient demands of the condition Malnutrition moderate related to chronic illness as evidenced by patient consuming less than 75% ofestimated energy requirements x 1 month, mild fat loss, and mild muscle loss. Goals: Patient to consume greater than >75 % of daily meals and >75% of daily supplements within 3-5days. NUTRITION INTERVENTION/PLAN: Orders: Oral nutrition supplement added Boost Breeze (1 cup provides 250 calories, 9 grams protein, 54 grams carbohydrate) BID Continue current care plan Clinical Nutrition Recommendations: Diet: Continue current nutrition plan NUTRITION MONITORING AND EVALUATION: Nursing documentation flowsheets for percent meal intake Tolerance of supplement per patient/nursing report Lab values warranting change with MNT Weight for trends Plan follow-up: Will follow and adjust nutrition plan of care as medical condition requires. Please contact for change(s) in patient condition requiring earlier intervention. Ruchi Oconnor MS, DAYLINN, LDN Clinical Dietitian [facility] text * Ancillary Progress Note - Moises Sheffield RN - 12/09/2023 10:37 AM EST CARE MANAGEMENT - ADULT TRANSITION NOTE [facility] [address] Name: John Mancilla Location: [facility] B735/A Date: 12/09/2023 Time: 10:37 AM Risk Stratification Risk Stratification Psycho Social / Medical Concerns Identified: Multiple Comorbidities (12/06/23 1401) Readmission Risk Score: 14.85 (12/09/23 0801) AM-PAC Score With Stairs : 22 (12/09/23 0814) Caregiver Information Patient Contacts Name Relation Home Work [place] ROSE MARY MANCILLA Spouse [phone] IDRIS GRIJALVA Mother [phone] Transition of Care Checklist Transition of Care Checklist (aka Readmission Risk Score) Discharge Disposition: Home w/Home Health (12/06/23 140) Home or Home w/Home Health: Moderate (12-17%) (12/06/23 140) Narrative: Patient discussed in IDT's today. Waiting on ID recs, possible need for Bronch, IV access placement if needed. [facility] accepted patient. CM will continue to follow pt to assess discharge needs. Encouraged pt to contact CM with any questions/concerns. Anticipated Transportation at Discharge: family Patient/Family Expectations: Pt to be discharged when medically stable. Transition Planning Transition Planning Transition Plan/Considerations: Needs uncertain at this time - Continue monitoring for needs (12/06/231401) Transition plan discussed with - Enter name and phone #: pt and bedside (12/06/231401) Insurance Considerations: N/A (12/06/23 140) Referral to Community Agency : N/A (12/06/23 140) Post-Acute Care needs identified and Referrals Completed: IV Infusion;Other - Comment (home health pending ID recs) (12/06/23 140) Additional Considerations: Care Management will continue to monitor and assist with discharge planning needs * Care Plan - Tricia Bright RN - 12/09/2023 5:10 AM EST Clinical Goal(s): pt will remain free from falls this shift (12/08/23 2300) Possible barriers to meeting goal(s)/advancing plan of care: infection Stability of the patient: Moderately unstable - medium risk of patient condition declining or worsening Summary regarding today's goal(s): Met: pt free from falls this shift Recommendations: hourly rounding, call dela cruz in reach, * Ancillary Progress Note - Raven Vazquez RRT - 12/08/2023 2:16 PM EST PATIENT DRIVEN PROTOCOL - Respiratory Care Services [address] [address] Name: John Mancilla Location: [facility] B735/A Date: 12/08/2023 Time: 2:16 PM Patient Driven Protocol Summary: Initial evaluation performed. This Treatment Plan and medications will be reviewed by the Primary Care Team for any contraindications. Respiratory Care Treatment Plan Aerosol Therapy Treatment:: Hand Held Nebulizer Tx PRN with Albuterol Sulfate: Unit dose 0.083%. to reduce work of breathing and improve pulmonary gas exchange. . Secretion Management Treatment: Flutter TherapyPRN to enhance mobilization of secretions. . The patient will be re-evaluated: No re-evaluation needed. Indications for treatment met. The Triage Level is: (Assessment Score = 0 - 5) Level 5. Triage Level Definitions: Level 1 Severe Respiratory/Airway Compromise Level 2 Moderate Respiratory/Airway Compromise or high risk for pulmonary complications Level 3 Mild Respiratory/Airway Compromise or moderate risk for pulmonary complications Level 4 Episodic Respiratory/Airway Compromise or low risk for pulmonary complications Level 5 No Respiratory/Airway Compromise Triage 1 Triage 2 Triage 3 Triage 4 Triage 5 greater than 20 16 - 20 11 - 15 6 - 10 0 - 5 Medical Record Assessment Clinical Findings Pulmonary Status: 0 - No History Surgical Status: 0 - No Surgical History Chest X-Ray: 0 - Not Performed or performed greater than 3 days ago Assessment Score: 0 Patient Assessment Clinical Findings Respiratory Pattern: 1 - RR 21 - 25; Patient gets short of breath when hurrying on level ground or walking up a slight hill. Breath Sounds: 0 - Clear to auscultation Cough Effectiveness: 0 - Strong non-productive Sputum Production: 0 - No sputum production Level of Activity: 1 - Ambulatory with assist O2 needed to keep SpO2 greater than or equal to 92%: 0 - Room Air Assessment Score: 2 Total Assessment Score: 2 Breath Sounds: Inspiratory and expiratory clear bilaterally.. Cough and Sputum: An effective cough produced no sputum... CXR: not performed. Vital Signs: Resp: 20 (12/08/23940) Pulse: 89 (12/08/23940) Temp: 37 C (98.6 F) (12/08/23940) BP: 119/77 (12/08/23940) SpO2: 95 % (12/08/23940) Primary Service: Med R. Admitting Diagnosis: Pneumonia [J18.9] Pulmonary Diagnosis: Lung Mass. * Care Plan - Heidi Cordova RN - 12/07/2023 1:42 PM EST Clinical Goal(s): patient will not fall this shift (12/07/23 0700) Possible barriers to meeting goal(s)/advancing plan of care: Problem: Actual & Potential for Falls Goal: Patient will remain free of falls. Outcome: Progressing Stability of the patient: Moderately stable - low risk of patient condition declining or worsening Summary regarding today's goal(s): Met: patient has not fallen this shift Recommendations: Continue current POC. * Care Plan - Tricia Bright RN - 12/07/2023 5:17 AM EST Clinical Goal(s): pt will remain freefrom falls this shift (12/07/23 0210) Possible barriers to meeting goal(s)/advancing plan of care: infection Stability of the patient: Moderately unstable - medium risk of patient condition declining or worsening Summary regarding today's goal(s): Met: pt free from falls this shift Recommendations: fall precautions in place, hourly rounding, call dela cruz in reach * Care Plan - Heidi Cordova RN - 12/06/2023 4:02 PM EST Clinical Goal(s): patient will not fall this shift (12/06/23 0700) Possible barriers to meeting goal(s)/advancing plan of care: Problem: Actual & Potential for Falls Goal: Patient will remain free of falls. Outcome: Progressing Stability of the patient: Moderately stable - low risk of patient condition declining or worsening Summary regarding today's goal(s): Met: patient has not fallen this shift Recommendations: Continue current POC. * Ancillary Progress Note - Joslyn Mckeon RN - 12/06/2023 2:06 PM EST CARE MANAGEMENT - ADULT INITIAL SCREENING [facility]-[address] [address] Name: John Mancilla Location: [facility] B735/A Date: 12/06/2023 Time: 2:06 PM Discussed patient with the interdisciplinary care team. This Animal Behaviorist performed a chart review and met with pt and bedside at bedside to complete admission screen and assessed needs for transition planning. The client care representative role and services were explained and emotional support was provided. Chief Complaint: Fever and Headache Prior Living Arrangements What was your living situation prior to admission/observation?: With Spouse (12/05/23 2241) Living Quarters: House (12/06/23 1401) Number of steps to enter living quarters:: 2 (12/06/231400) History of falling: No (12/06/23 0300) Prior Level of Functioning Describe the patient's ability prior to admission/observation to perform ADLs: Performs independently (12/05/232240) Describe the patient's mobility status prior to admission: Patient ambulates independently (12/05/232240) Patient uses assistive device: No (12/05/232240) Caregiver Information Patient Contacts Name Relation Home Work [place] ROSE MARY MANCILLA Spouse [phone] IDRIS GRIJALVA Mother [phone] Risk Stratification/Psychosocial/Care Gaps Risk Stratification Psycho Social / Medical Concerns Identified: Multiple Comorbidities (12/06/231400) Readmission Risk Score: 16.9 (12/06/23 1200) AM-PAC Score With Stairs : 20 (12/06/23 0300) Prior to Admission Services Services Prior to Admission COMMANDING OFFICER GARAGE Services (Services received within the last 30 days with exception, Psych within last two years): N/A (12/06/231400) [place] Dept[place] of Aging (PDA) Waiver Program: N/A (12/06/231400) [employer] Transportation (Services received within the last 30 days): Family/Friends Personal Vehicle (12/06/231400) Outpatient Animal Behaviorist: Patient Care Team: Eryn Hancock RN as Director Blood Bank (Registered Nurse) Patient/Family Expectations: Spoke w & pt. Plan is home. They are ok with IV abx and HH ifneeded as they have done in in the past (2020). Awaiting final cultures and ID recs. Chart review pt had [facility] and [facility] in 2020. CM reached to Adilia Wright and made referral to [facility]. CM placed HH referral & asked CM to start with [facility] to see if able to follow and if not to continue with search. For further screening information, please refer to the Care Management flow document. * Ancillary Progress Note - Moises Sheffield RN - 12/06/2023 12:12 PM EST HOME HEALTH REFERRAL FORM CARE MANAGEMENT [facility] [address] Referred By: Joslyn Mckeon RN Admission Date: 12/04/2023 Discharge Date: tbd Discharge Time: tbd Start Date: Same day v next pending abx and plan Agency Referred To: [facility] PATIENT INFORMATION: Name: John Mancilla [address]: [address] [place] [id number] : 1970 (home) SSN: [id number] County: [place] Emergency Contacts: Extended Emergency Contact Information Primary Emergency Contact: ROSE MARY MANCILLA [place] Relation: Spouse Preferred language: [place] Product Development Specialist needed? No Secondary Emergency Contact: IDRIS GRIJALVA Relation: Mother Preferred language: [place] Product Development Specialist needed? No MEDICAL INFORMATION: Principal Diagnosis: pneumonia Other Diagnosis: See attached History and Physical Surgery and Dates: Past Surgical History: Procedure Laterality Date COLONOSCOPY, DIAGNOSTIC (RECTUM) N/A 08/13/2019 COLONOSCOPY FLEXIBLE PROXIMAL DIAGNOSTIC performed by Pavan Villaseñor MD at ENDOSCOPY [facility] IR VENOUS ACCESS MEDIPORT 04/24/2021 IR VENOUS ACCESS MEDIPORT 08/01/2021 IR VENOUS ACCESS MEDIPORT 10/15/2023 VASECTOMY Diet: Adults: As tolerated Allergies: Carboplatin and Isosorbide nitrate Isolation Type: None Activity Restrictions: Activity as tolerated Isolation For: None HOME CARE ORDERS: (Discipline and Frequency): [facility] for general assessment and evaluation, vital signs, medication teaching and compliance. PICC/Midline Care and follow Teaching for line and iv antibiotics to pt and family: Pt and is learner Dressing changes for line and labs as ordered by ID final recommendations ~AWAITING FINAL CULTURES AND ID RECS Medications Dose, Frequency, & Route: Refer to Physician's Discharge Instructions Equipment and Supplies: N/A Ordering Physician and Contact Information: Dr Viet Mccartney Comments: na PCP: PCP: MONICA SPIVEY [address] [place] [id number] D/C Physician: Dr Viet Mccartney Insurance: See attached facesheet. * Care Plan - Tricia Bright RN - 12/06/2023 7:12 AM EST Clinical Goal(s): pt will remain free from falls/injury this shift (12/05/23 2300) Possible barriers to meeting goal(s)/advancing plan of care: infection Stability of the patient: Moderately unstable - medium risk of patient condition declining or worsening Summary regarding today's goal(s): Met: free from falls/injurythis shift Recommendations: hourly rounding, call dela cruz in reach and ensure fall precautions in place * Ancillary Progress Note - Rufina Bryant RRT - 12/05/2023 8:09 PM EST PATIENT DRIVEN PROTOCOL - Respiratory Care Services [address] [address] Name: John Mancilla Location: [facility] B735/A Date: 12/05/2023 Time: 8:09 PM Patient Driven Protocol Summary: Initial evaluation performed. This Treatment Plan and medications will be reviewed by the Primary Care Team for any contraindications. Respiratory Care Treatment Plan Aerosol Therapy Treatment:: Hand Held Nebulizer Tx PRN with Albuterol Sulfate: Unit dose 0.083%. to reduce work of breathing and improve pulmonary gas exchange. . Pulmonary Volume Expansion Therapy: Deep Breathing/Cough PRN to enhance mobilization of secretions and prevent or treat alveolar consolidation and atelectasis. . The patient will be re-evaluated: No re-evaluation needed. Indications for treatment met. The Triage Level is: (Assessment Score = 0 - 5) Level 5. Triage Level Definitions: Level 1 Severe Respiratory/Airway Compromise Level 2 Moderate Respiratory/Airway Compromise or high risk for pulmonary complications Level 3 Mild Respiratory/Airway Compromise or moderate risk for pulmonary complications Level 4 Episodic Respiratory/Airway Compromise or low risk for pulmonary complications Level 5 No Respiratory/Airway Compromise Triage 1 Triage 2 Triage 3 Triage 4 Triage 5 greater than 20 16 - 20 11 - 15 6 - 10 0 - 5 Medical Record Assessment Clinical Findings Pulmonary Status: 0 - No History Surgical Status: 0 - No Surgical History Chest X-Ray: 2 - Infiltrates and/or Atelectasis Assessment Score: 2 Patient Assessment Clinical Findings Respiratory Pattern: 0 - RR 12 - 20; Patient only gets breathless with strenuous exercise. Breath Sounds: 0 - Clear to auscultation Cough Effectiveness: 0 - Strong non-productive Sputum Production: 0 - No sputum production Level of Activity: 1 - Ambulatory with assist O2 needed to keep SpO2 greater than or equal to 92%: 0 - Room Air Assessment Score: 1 Total Assessment Score: 3 Breath Sounds: Inspiratory and expiratory clear bilaterally.. Cough and Sputum: An effective cough produced no sputum... CXR: EXAM XR CHEST 2 VIEWS-12/04/2023 7:23 pm HISTORY [...] Lower lobe nodules better demonstrated on prior CT.. Vital Signs: Resp: 28 (12/05/23 1809) Pulse: 84 (12/05/23 1200) Temp: (!) 38.1 C (100.6 F) (12/05/23 1809) BP: 124/76 (12/05/23 1809) SpO2: 96 % (12/05/23 180) PFT: Minimal Predicted IC: 1.14 L. Primary Service: Med R. Admitting Diagnosis: Pneumonia [J18.9] Pulmonary Diagnosis: Pneumonia, Lung CA Prescriptions/Home Medications/Durable Medical Equipment: Albuterol PRN. * Communication - Ricardo Berg DO - 12/05/2023 1:01 AM EST Received page from nursing at 0030 AM regarding patient having increasing anxiety and distress. Patient seen and examined promptly at bedside. Patient appeared in obvious distress with noted tachypnea and increased respiratory effort. Spo2 91-93%. Other vitals otherwise stable. worried about stroke due to presenting like this in July when found to have small CVA. Fullphysical exam completed - no focal neurologic deficits. 5/5 strength in upper and lower extremities. Lung exam unchanged from prior - bibasilar crackles, worse on R. No wheezing. Patient placed on 2Lnc and almost immediately patient appeared more comfortable and verbalized thathe felt much better. Saturations increased to 96% and tachypnea improved. and daughter at bedside noted that he is back to his baseline after the addition of supplemental O2. Plan: Suspect patient was compensating at presentation and this is why his Spo2 was normal and he was notrequiring Supplemental O2 earlier this evening. However, patient has now likely tired out and has progressed into acute hypoxic respiratory failure. - Continue supplemental O2 for goal Spo2 >95% - Wean as tolerated - Check VBG to ensure no new hypercapnia - Albuterol nebs PRN * ED Cutting Table Operator Note - Pattie Mcneill RN - 12/05/2023 12:[address] Berg at bedside * ED Cutting Table Operator Note - Pattie Mcneill RN - 12/05/2023 12:[address] Berg requested at bedside due to concerns for a stroke or other worsening condition * ED Cutting Table Operator Note - Pattie Mcneill RN - 12/05/2023 12:15 AM EST Patient reporting difficulty breathing but all VSS. PRN nebs given. * Medical Necessity - Mayda Lugo RN - 12/04/2023 9:08 PM EST AdmissionCare Guideline: Pneumonia - INPT, Inpatient Based on the indications selected for the patient, the bed status of Inpatient was determined to beMET The following indications were selected as present at the time of evaluation of the patient: - Presence of risk factor for poor outcome (eg, gross hemoptysis, cavitary infiltrate, neuromuscular weakness, cystic fibrosis) Additional Information: Recommend admission to medicine team with IV antibiotics Chemotherapy will be held in the setting of active infection and immunotherapy held in the setting of possible pneumonitis. Sepsis work up including respiratory pathogen panel Oncology consult If patient not improving with IV antibiotics and supportive care, recommend pulmonology consult and consideration of steroids for pneumonitis. AdmissionCare documentation entered by: Mayda Lugo [facility] G3, 27th edition, Copyright 2022 [facility] [employer] All Rights Reserved. [id number] Solely for purpose of utilization review and payment; not a diagnostic tool * Communication - Kasandra Cates DO - 12/04/2023 7:51 PM EST ONCOLOGY COMMUNICATION NOTE John Mancilla is a 53 year old male with: Metastatic non-small cell lung cancer (adenocarcinoma) cT4 cN3 cM1c = Stage IVB 04/27/21 - 09/12/23: Carboplatin/Pemetrexed/Pembrolizumab initiated Pembrolizumab initiated on 06/29/21 Carboplatin discontinued on 12/04/21 05/18/21 - current: Zometa initiated, last dose 10/24/23 10/03/23 - current: Pembro/Paclitaxel, last dose C3D1 on 11/21/23 2. 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 Chest Xray and CT PE were performed showing no evidence of PE but with interval worsening of infiltrates in the lung. He was given IV lasix 40mg for concerns of pulmonary edema with some improvement. He was discharged from the ED with doxycycline and augmentin for complicated pneumonia in the setting of malignancy. CT A/P was also performed as scans were due for restaging purposes which showed interval improvement of retroperitoneal adenopathy. The patient's contacted our office earlier today reporting that the patient was continuing to have fevers and not having much progress with symptom improvement. He was advised to go back to the ER for concern for pneumonitis and/or infection. The ED contacted our team for recommendations. Upon review of imaging, there is evidence of pneumonia. However, pneumonitis in the setting of immunotherapy with Pembrolizumab cannot be excluded. RECOMMENDATIONS: Recommend admission to medicine team with IV antibiotics Chemotherapy will be held in the setting of active infection and immunotherapy held in the setting of possible pneumonitis. Sepsis work up including respiratory pathogen panel Oncology consult If patient not improving with IV antibiotics and supportive care, recommend pulmonology consult andconsideration of steroids for pneumonitis. If patient decompensates, recommend empiric treatment for pneumonitis. Official oncology consult to follow tomorrow. Patient care discussed with attending, Dr. Godinez. Kasandra Cates DO Hematology Oncology Fellow Physician, PGY-4 * ED Cutting Table Operator Note - Tanesha Lima RN - 12/04/2023 7:01 PM EST Pt getting chemotherapy for metastatic lung ca. Had blood work and ct on Saturday and was dx with pneumonia. Pt placed on antibiotics. Today pt still running low grade fevers with headaches and his heme/onc doctor instructed to come to ED. documented in this encounter Plan of Treatment Upcoming Encounters Date Type Department Care Team (Late st Contact Info) Description 12/13/2023 6:45 AM EST Anticoagulation Pharmacy Call Center [address] [facility] [place] [id number] [facility] [address] [facility] [place] [id number] 12/19/2023 2:00 PM EST Office Visit [address] [address] Monica Spivey PA-C [address] [place] [address] 12/23/2023 8:30 AM EST Office Visit Hematology Oncology [facility] [address] [place] [address] Kerri Foote MD [address], [place] [id number] 01/02/2024 8:00 AM EST Office Visit Pulmonary Medicine, [facility] [address] [facility] [place] [address] Wyatt Gallegos MD [address] [place] [facility] [place] [address] 05/06/2024 9:20 AM EDT Office Visit Neurology [facility] [address] [place] [address] Kathy Pryor PA-C [address] [facility] [place], [place] [id number] Pending Results Name Type Priority Associated Diagnoses Date /Time Q FEVER (COXIELLA BURNETII)AB (IGG,M)W/REFL TITERS Lab Routine 12/09/2023 3:08 PM EST CULTURE, AFB Lab Routine 12/11/2023 1 1:34 AM EST CULTURE,FUNGUS,NON-DERM Lab Routine 0 12/11/2023 11:34 AM EST CULTURE, BRONCHIAL, QUANTITATIVE Lab Routine 12/11/2023 11:34 AM EST CULTURE LEGIONELLA Lab Routine 2023 11:34 AM EST ASPERGILLUS ANTIGEN, EIA, BAL Lab Routine 12/11/2023 11:34 AM EST CULTURE, NOCARDIA Lab Routine 024 11:34 AM EST Scheduled Orders Name Type Priority Associated Diagnoses Orde r Schedule Q FEVER (COXIELLA BURNETII)AB (IGG,M)W/REFL TITERS Lab Routine One Time for 1 Occurrences starting 12/09/2023 until 12/09/2023 ASPERGILLUS ANTIGEN, EIA, BAL Lab Routine One Time for 1 Occurrences starting 12/11/2023 until 12/11/2023 Health Maintenance Due Date Last Done Comments [...] this encounter Medical Devices Implanted Type Area Drum Tender Device Identifier Shelf Expiration Date Model / Serial / Lot Power Port 8fr Sngl Lumen Plas - [id number] Implanted:Qty: 1 on 04/24/2021 at [facility] CR BARD : PERIPHERAL VASCULAR [id number] 02/24/2022 [id number] / / [id number] Port Implant W/8f Poly Cath - [id number] Implanted:Qty: 1 on 10/15/2023 at [facility] CR BARD : PERIPHERAL VASCULAR [id number] 03/27/2025 [id number] / / [id number] documented as of this encounter Procedures Procedure Name Priority Date/Time Associated Diagnosis Comments NOCTURNAL OXIMETRY (INPATIENT) Routine 12/12/2023 7:42 AM EST BASIC METABOLIC PANEL Routine 12/12/2023 6:51 AM EST PHOSPHORUS Routine 12/12/2023 6:51 AM EST CBC Routine 12/12/2023 6:51 AM EST MAGNESIUM Routine 12/12/2023 6:51 AM EST BASIC METABOLIC PANEL Routine 12/11/2023 1:19 PM EST PHOSPHORUS Routine 12/11/2023 1:19 PM EST CBC Routine 12/11/2023 1:19 PM EST MAGNESIUM Routine 12/11/2023 1:19 PM EST CULTURE, NOCARDIA Routine 12/11/2023 11: 34 AM EST CULTURE, BRONCHIAL, QUANTITATIVE Routine 12/11/2023 11:34 AM EST CULTURE, AFB Routine 12/11/2023 11:34 AM EST CULTURE LEGIONELLA Routine 12/11/2023 11 :34 AM EST CYTOLOGY Routine 12/11/2023 11:34 AM EST PNEUMOCYSTIS SMEAR Routine 12/11/2023 11 :34 AM EST CULTURE,FUNGUS,NON-TANK M Routine 12/11/2023 11:34 AM EST BRONCHOSCOPY 12/11/2023 7:43 AM EST BASIC METABOLIC PANEL Routine 12/10/2023 8:12 AM EST PHOSPHORUS Routine 12/10/2023 8:12 AM EST CBC Routine 12/10/2023 8:12 AM EST MAGNESIUM Routine 12/10/2023 8:12 AM EST BASIC METABOLIC PANEL Routine 12/09/2023 9:10 AM EST PHOSPHORUS Routine 12/09/2023 9:10 AM EST CBC Routine 12/09/2023 9:10 AM EST MAGNESIUM Routine 12/09/2023 9:10 AM EST BASIC METABOLIC PANEL Routine 12/08/2023 7:55 AM EST PHOSPHORUS Routine 12/08/2023 7:55 AM EST CBC Routine 12/08/2023 7:55 AM EST MAGNESIUM Routine 12/08/2023 7:55 AM EST BASIC METABOLIC PANEL Routine 12/07/2023 7:44 AM EST PHOSPHORUS Routine 12/07/2023 7:44 AM EST CBC Routine 12/07/2023 7:44 AM EST MAGNESIUM Routine 12/07/2023 7:44 AM EST BASIC METABOLIC PANEL Routine 12/06/2023 8:04 AM EST PHOSPHORUS Routine 12/06/2023 8:04 AM EST CBC Routine 12/06/2023 8:04 AM EST MAGNESIUM Routine 12/06/2023 8:04 AM EST CORTISOL Add-on 12/06/2023 8:04 AM EST MRSA SCREEN, PCR STAT 12/05/2023 8:44 PM EST MRI BRAIN W WO CONTRAST Routine 12/05/2023 5:38 PM EST CULTURE, RESPIRATORY, LOWER, AEROBIC Routine 12/05/2023 10:54 AM EST BASIC METABOLIC PANEL Routine 12/05/2023 5:27 AM EST PHOSPHORUS Routine 12/05/2023 5:27 AM EST LD Add-on 12/05/2023 5:27 AM EST CBC Routine 12/05/2023 5:27 AM EST MAGNESIUM Routine 12/05/2023 5:27 AM EST BLOOD GAS, VENOUS Routine 12/05/2023 12: 48 AM EST URINALYSIS, REFLEX TO CULTURE STAT 12/04/2023 8:12 PM EST URINALYSIS, REFLEX TO CULTURE (CUP ONLY) STAT 12/04/2023 8:12 PM EST URINALYSIS, REFLEX TO CULTURE (NOT FOR NEUTROPENIC PATIENTS) STAT 12/04/2023 8:12 PM EST STREPTOCOCCUS PNEUMONIAE ANTIGENS, URINE Add-on 12/04/2023 8:12 PM EST LEGIONELLA ANTIGEN, URINE Add-on 12/04/2023 8:12 PM EST XR CHEST 2 VIEWS STAT 12/04/2023 7:23 PM EST RESPIRATORY PATHOGEN PANEL, PCR STAT 12/04/2023 6:34 PM EST CULTURE, BLOOD STAT 12/04/2023 6:30 PM EST DIFFERENTIAL, AUTOMATED STAT 12/04/2023 6:25 PM EST TROPONIN T, HIGH SENSITIVITY STAT 12/04/2023 6:25 PM EST BLOOD GAS, VENOUS STAT 12/04/2023 6:2 5 PM EST COMPREHENSIVE METABOLIC PANEL STAT 12/04/2023 6:25 PM EST CBC STAT 12/04/2023 6:25 PM EST CULTURE, BLOOD STAT 12/04/2023 6:25 PM EST CBC STAT 12/04/2023 6:25 PM EST documented in this encounter Results * NOCTURNAL OXIMETRY (INPATIENT) (12/12/2023 7:42 AM EST) 12/12/2023 7:42 AM EST Ahsan Duran MD RESPIRA TORJim * PHOSPHORUS (12/12/2023 6:51 AM EST) Phosphorus 2.6 2.5 - 4.8 mg/dL 12/12/2023 7:37 AM EST LABORATORY C Blood Venous blood specimen / Unknown Venipuncture / Unknown 12/12/2023 6:51 AM EST 12/12/2023 7:10 AM EST Ricardo Berg DO LAB BLOOD ORDERABLE S Performing Organization Address City/[facility]/ZIP Co de Phone Number LABORATORY C [address] [place] [address] * MAGNESIUM (12/12/2023 6:51 AM EST) Magnesium 2.6 1.5 - 2.6 mg/dL 12/12/2023 7:37 AM EST LABORATORY G[facility] Blood Venous blood specimen / Unknown Venipuncture / Unknown 12/12/2023 6:51 AM EST 12/12/2023 7:10 AM EST Ricardo Berg LAB BLOOD ORDERABLE S LABORATORY GM [address] [place] [address] * (ABNORMAL) CBC (12/12/2023 6:51 AM EST) WBC 9.47 4.00 - 10.80 K/uL 12/12/2023 7:23 AM EST LABORATORY [facility] RBC 3.70 4.50 - 5.25 M/uL 12/12/2023 7:23 AM EST LABORATORY [facility] HGB 11.8(L) 14.0 - 16.8 g/dL 12/12/2023 7:23 AM EST LABORATORY G[facility] HCT 34.9(L) 40.0 - 48.4 % 12/12/2023 7:23 AM EST LABORATORY [facility] MCV 94.3 82.0 - 99.5 fL 12/12/2023 7:23 AM EST LABORATORY G[facility] MCH 31.9 27.0 - 34.0 pg 12/12/2023 7:23 AM EST LABORATORY G[facility] MCHC 33.8 32.0 - 36.0 g/dL 12/12/2023 7:23 AM EST LABORATORY G[facility] RDW 16.0 11.5 - 15.5 % 12/12/2023 7:23 AM EST LABORATORY G[facility] PLT 480(H) 140 - 400 K/uL 12/12/2023 7:23 AM EST LABORATORY G[facility] MPV 9.1 6.6 - 11.1 fL 12/12/2023 7:23 AM EST LABORATORY G[facility] nRBCs 0 <=0 /100 WBCs 12/12/2023 7:23 AM EST LABORATORY G[facility] Blood Venous blood specimen / Unknown Venipuncture / Unknown 12/12/2023 6:51 AM EST 12/12/2023 7:10 AM EST Ricardo Berg DO LAB BLOOD ORDERABLE S LABORATORY G[facility] [address] [facility] [place] [id number] * (ABNORMAL) BASIC METABOLIC PANEL (12/12/2023 6:51 AM EST) BUN 15 6 - 20 mg/dL 12/12/2023 7:37 AM EST LABORATORY G[facility] Creatinine 0.8 0.6 - 1.2 mg/dL 12/12/2023 7:37 AM EST LABORATORY G[facility] Estimated Glomerular Filtration Rate >90 >=60 mL/min 12/12/2023 7:37 AM EST LABORATORY G[facility] Comment:eGFR is calculated b ased on the CKD-EPI 2020 equation Sodium 142 135 - 146 mmol/L 12/12/2023 7:37 AM EST LABORATORY G[facility] Potassium 3.5 3.5 - 5.1 mmol/L 12/12/2023 7:37 AM EST LABORATORY G[facility] Chloride 108(H) 98 - 107 mmol/L 12/12/2023 7:37 AM EST LABORATORY [facility] CO2 23 22 - 32 mmol/L 12/12/2023 7:37 AM EST LABORATORY G[facility] Anion Gap 11 7 - 15 mmol/L 12/12/2023 7:37 AM EST LABORATORY G[facility] Glucose 120 70 - 120 mg/dL 12/12/2023 7:37 AM EST LABORATORY G[facility] Calcium 8.8 8.4 - 10.2 mg/dL 12/12/2023 7:37 AM EST LABORATORY G[facility] Blood Venous blood specimen / Unknown Venipuncture / Unknown 12/12/2023 6:51 AM EST 12/12/2023 7:10 AM EST Ricardo Berg LAB BLOOD ORDERABLE S Performing Organization Address City/[facility]/ZIP Co de Phone Number LABORATORY G[facility] [address] [place] [address] * PHOSPHORUS (12/11/2023 1:19 PM EST) Phosphorus 3.0 2.5 - 4.8 mg/dL 12/11/2023 1:56 PM EST LABORATORY G[facility] Blood Venous blood specimen / Unknown Venipuncture / Unknown 12/11/2023 1:19 PM EST 12/11/2023 1:30 PM EST Ricardo Gio Berg LAB BLOOD ORDERABLE S Performing Organization Address City/[facility]/ZIP Co de Phone Number LABORATORY G[facility] [address] [place] [address] * MAGNESIUM (12/11/2023 1:19 PM EST) Magnesium 2.6 1.5 - 2.6 mg/dL 12/11/2023 1:56 PM EST LABORATORY G[facility] Blood Venous blood specimen / Unknown Venipuncture / Unknown 12/11/2023 1:19 PM EST 12/11/2023 1:30 PM EST Ricardo Gio Otis FAY LAB BLOOD ORDERABLE S Performing Organization Address City/State/[facility] Co de Phone Number LABORATORY [facility] [address] [place] [address] * (ABNORMAL) CBC (12/11/2023 1:19 PM EST) WBC 7.64 4.00 - 10.80 K/uL 12/11/2023 1:43 PM EST LABORATORY [facility] RBC 3.96 4.50 - 5.25 M/uL 12/11/2023 1:43 PM EST LABORATORY G[facility] HGB 12.5(L) 14.0 - 16.8 g/dL 12/11/2023 1:43 PM EST LABORATORY [facility] HCT 38.3(L) 40.0 - 48.4 % 12/11/2023 1:43 PM EST LABORATORY [facility] MCV 96.7 82.0 - 99.5 fL 12/11/2023 1:43 PM EST LABORATORY [facility] MCH 31.6 27.0 - 34.0 pg 12/11/2023 1:43 PM EST LABORATORY [facility] MCHC 32.6 32.0 - 36.0 g/dL 12/11/2023 1:43 PM EST LABORATORY [facility] RDW 16.5 11.5 - 15.5 % 12/11/2023 1:43 PM EST LABORATORY [facility] PLT 477(H) 140 - 400 K/uL 12/11/2023 1:43 PM EST LABORATORY [facility] MPV 9.2 6.6 - 11.1 fL 12/11/2023 1:43 PM EST LABORATORY G[facility] nRBCs 0 <=0 /100 WBCs 12/11/2023 1:43 PM EST LABORATORY G[facility] Blood Venous blood specimen / Unknown Venipuncture / Unknown 12/11/2023 1:19 PM EST 12/11/2023 1:29 PM EST Ricardo Berg DO LAB BLOOD ORDERABLE S Performing Organization Address City/[facility]/ZIP Co de Phone Number LABORATORY [facility] [address] [place] [address] * (ABNORMAL) BASIC METABOLIC PANEL (12/11/2023 1:19 PM EST) BUN 10 6 - 20 mg/dL 12/11/2023 1:56 PM EST LABORATORY [facility] Creatinine 0.9 0.6 - 1.2 mg/dL 12/11/2023 1:56 PM EST LABORATORY [facility] Estimated Glomerular Filtration Rate >90 >=60 mL/min 12/11/2023 1:56 PM EST LABORATORY G[facility] Comment:eGFR is calculated b ased on the CKD-EPI 2020 equation Sodium 140 135 - 146 mmol/L 12/11/2023 1:56 PM EST LABORATORY [facility] Potassium 3.9 3.5 - 5.1 mmol/L 12/11/2023 1:56 PM EST LABORATORY [facility] Chloride 106 98 - 107 mmol/L 12/11/2023 1:56 PM EST LABORATORY [facility] CO2 25 22 - 32 mmol/L 12/11/2023 1:56 PM EST LABORATORY G[facility] Anion Gap 9 7 - 15 mmol/L 12/11/2023 1:56 PM EST LABORATORY [facility] Glucose 141(H) 70 - 120 mg/dL 12/11/2023 1:56 PM EST LABORATORY [facility] Calcium 8.9 8.4 - 10.2 mg/dL 12/11/2023 1:56 PM EST LABORATORY [facility] Blood Venous blood specimen / Unknown Venipuncture / Unknown 12/11/2023 1:19 PM EST 12/11/2023 1:30 PM EST Ricardo Berg DO LAB BLOOD ORDERABLE S Performing Organization Address City/[facility]/ZIP Co de Phone Number LABORATORY [facility] [address] [place] [address] * PNEUMOCYSTIS SMEAR (12/11/2023 11:34 AM EST) Pneumocystis Smear Result No Pneumocystis jirovecii (formerly P. carinii) seen No Pneumocystis jirovecii (formerly P. carinii) seen 12/11/2023 11:34 PM EST LABORATORY [facility] Bronchoalveolar Lavage (BAL) Structure of upper lobe of left lung / Unknown 12/11/2023 11:34 AM EST 12/11/2023 12:00 PM EST Rae Erna Ramirez MD LAB MICRO - GENERAL ORDERABLES LABORATORY [facility] [address] [place] [address] * CYTOLOGY (12/11/2023 11:34 AM EST) Final Diagnosis A. Lung, Left upper lobe, Bronchoalveolar lavage: Adequacy: Satisfactory for evaluation. Category: Benign. Interpretation: Squamous cells, neutrophils, respiratory epithelial cells and pulmonary macrophages. Other: Comment: No viral inclusions identified., Cellblock: The histological sections of the cellblock preparation show similar findings., GMS stain on the cell block is negative for pneumocystis and negative for other fungal elements. Differential cell count: Lymphocytes 37%, Neutrophils 27%, Monocytes 32%, Eosinophils 4%. 12/12/2023 3:11 PM EST LABORATORY [facility] Prior Cancer Lung Cancer 12/12/2023 3:11 PM EST LABORATORY [facility] Indication for Procedure Lung infiltrate 12/12/2023 3:11 PM EST LABORATORY [facility] Gross Description A. Lung, Left upper lobe. Received fresh labeled with name:John Mancilla and lung, left upper lobe, and verified with the patient's name and date of . Received 20mls of cloudy colored fluid. The specimen is prepared for ThinPrep and cell block at [facility]. The cell block is submitted in cassette A1 and processed at [facility]. Prepared by: VIVI Formalin fixation time: 7 hours 12/12/2023 3:11 PM EST LABORATORY [facility] Performing Labs [employer] Laborer screening performed at [facility] ([facility]), [facility] [place] [address]. Pathologist sign out performed at [facility] ([facility]), [facility] [place] [address]. 12/12/2023 3:11 PM EST LABORATORY [facility] Photographic images and diagrams represent lam findings in this case; they are not intended to replace a complete review of the final diagnostic report. The following statement applies to Flow Cytometry, Histology, In situ Hybridization Assays and Molecular Genetics. This test was developed and performed at [facility] and its performance characteristics determined by [facility]. It has not been cleared or approved by the U.S. Food and Drug Administration. The FDA has determined that such clearance or approval is not necessary. This test is used for clinical purposes. It should not be regarded as investigational or for research. Special stains, including histochemical stains, and studies using immunologic and SHILOH methodology (where applicable) are performed with appropriate positive and negative control reactions. 12/12/2023 3:11 PM EST LABORATORY [facility] Bronchoalveolar Lavage (BAL) Structure of upper lobe of left lung / Unknown 12/11/2023 11:34 AM EST 12/11/2023 12:09 PM EST Rae Ramirez MD LAB CYTOLOGY ORDERAB LES LABORATORY [place] [address] [place] [address] * BRONCHOSCOPY (12/11/2023 7:43 AM EST) 12/11/2023 7:43 AM EST Narrative Procedure Note Monica Spivey PA-C - 12/11/2023 7:43 AM EST [facility] Patient Name: John Mancilla Procedure Date: 12/11/2023 7:43 AM Date of : 1970 Admit Type: Inpatient Note Status:Finalized Date of : 1970 Admit Type: Inpatient Age: 53 Room: ENDO - ROOM 10 Gender: Male Note Status: Finalized Procedure: Bronchoscopy (with BAL) Indications: Abnormal CT scan of chest Providers: Lino Ramirez MD, Brandon Monreal, [facility] (Fellow) Referring MD: Monica Spivey (Referring MD), MD Magdalena (Referring MD), Ahsan Duran (Referring MD) Medicines: General Anesthesia Complications: No immediate complications Procedure: Pre-Anesthesia Assessment: - ASA Grade Assessment: IV - 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 - The heart rate, respiratory rate, oxygensaturations, blood pressure, adequacy of pulmonary ventilation, and response to care weremonitored throughout the procedure. - The supervising physician was present for theentire procedure from scope insertion until scope withdrawal. After obtaining informed consent,The procedure wasaccomplished without difficulty. The patient tolerated the procedure well. [id number] Bronchoscope ([id number]) was introduced through the mouth, via the endotrachealtube (the patient was intubated for the procedure) and advanced to thetracheobronchial tree of both lungs. All instruments were visually inspected immediatelybefore and after removal from the patient to ensure they are fully intact. Findings & Specimens: The endotracheal tube is in good position. The visualized portion ofthe trachea is of normal caliber. The nini is sharp. The tracheobronchial tree was examined to atleast the first subsegmental level. Bronchial mucosa and anatomy are normal; there are no endobronchiallesions, and no secretions. The bronchoscope was advanced until wedged at the desired locationfor bronchoalveolar lavage. BAL was performed in the SHI apical posterior segments (B1 & B2) of the lungand sent for cell count, bacterial culture, smears & culture, and fungal & AFB analysis and cytology,bacterial, AFB and fungal analysis, Legionella (DFA & culture), Nocardia, fungal analysis, Aspergillusantigen and Pneumocystis (PCP/PJP) analysis. 100 mL of fluid were instilled. 41 mL were returned. Thereturn was cellular and cloudy. Mucous plugs were present in the return fluid. Multiple specimenswere obtained and pooled into one specimen, which was sent for analysis. The microbiology specimen was placed in Bottle A. The cytology specimen was placed in Bottle B. Impression: - Abnormal CT scan of chest - The airway examination was as above. - Bronchoalveolar lavage was performed. Recommendation: - Await BAL results. Lino Ramirez MD 12/11/2023 11:38:27 AM This report has been signed electronically. Brandon Monreal, [facility] 12/11/2023 11:38:15 AM Monica Spivey PA-C GASTRO UPPER * PHOSPHORUS (12/10/2023 8:12 AM EST) Phosphorus 2.6 2.5 - 4.8 mg/dL 12/10/2023 8:59 AM EST LABORATORY [facility] Blood Venous blood specimen / Unknown Venipuncture / Unknown 12/10/2023 8:12 AM EST 12/10/2023 8:25 AM EST [facility] S Performing Organization Address City/[facility]/ZIP Co de Phone Number LABORATORY [facility] [address] [place] [address] * MAGNESIUM (12/10/2023 8:12 AM EST) Magnesium 2.6 1.5 - 2.6 mg/dL 12/10/2023 8:59 AM EST LABORATORY [facility] Blood Venous blood specimen / Unknown Venipuncture / Unknown 12/10/2023 8:12 AM EST 12/10/2023 8:25 AM EST Ricardo Berg LAB BLOOD ORDERABLE S Performing Organization Address City/[facility]/ZIP Co de Phone Number LABORATORY [facility] [address] [place] [address] * (ABNORMAL) CBC (12/10/2023 8:12 AM EST) WBC 7.21 4.00 - 10.80 K/uL 12/10/2023 8:40 AM EST LABORATORY [facility] RBC 4.08 4.50 - 5.25 M/uL 12/10/2023 8:40 AM EST LABORATORY [facility] HGB 13.0(L) 14.0 - 16.8 g/dL 12/10/2023 8:40 AM EST LABORATORY [facility] HCT 39.6(L) 40.0 - 48.4 % 12/10/2023 8:40 AM EST LABORATORY [facility] MCV 97.1 82.0 - 99.5 fL 12/10/2023 8:40 AM EST LABORATORY [facility] MCH 31.9 27.0 - 34.0 pg 12/10/2023 8:40 AM EST LABORATORY [facility] MCHC 32.8 32.0 - 36.0 g/dL 12/10/2023 8:40 AM EST LABORATORY [facility] RDW 16.5 11.5 - 15.5 % 12/10/2023 8:40 AM EST LABORATORY [facility] PLT 499(H) 140 - 400 K/uL 12/10/2023 8:40 AM EST LABORATORY [facility] MPV 9.1 6.6 - 11.1 fL 12/10/2023 8:40 AM EST LABORATORY [facility] nRBCs 0 <=0 /100 WBCs 12/10/2023 8:40 AM EST LABORATORY [facility] Blood Venous blood specimen / Unknown Venipuncture / Unknown 12/10/2023 8:12 AM EST 12/10/2023 8:25 AM EST Ricardo Berg DO LAB BLOOD ORDERABLE S LABORATORY [address] [place] [address] * (ABNORMAL) BASIC METABOLIC PANEL (12/10/2023 8:12 AM EST) BUN 10 6 - 20 mg/dL 12/10/2023 8:59 AM EST LABORATORY [facility] Creatinine 0.9 0.6 - 1.2 mg/dL 12/10/2023 8:59 AM EST LABORATORY [facility] Estimated Glomerular Filtration Rate >90 >=60 mL/min 12/10/2023 8:59 AM EST LABORATORY [facility] Comment:eGFR is calculated b ased on the CKD-EPI 2020 equation Sodium 139 135 - 146 mmol/L 12/10/2023 8:59 AM EST LABORATORY [facility] Potassium 3.5 3.5 - 5.1 mmol/L 12/10/2023 8:59 AM EST LABORATORY [facility] Chloride 104 98 - 107 mmol/L 12/10/2023 8:59 AM EST LABORATORY [facility] CO2 23 22 - 32 mmol/L 12/10/2023 8:59 AM EST LABORATORY [facility] Anion Gap 12 7 - 15 mmol/L 12/10/2023 8:59 AM EST LABORATORY [facility] Glucose 127(H) 70 - 120 mg/dL 12/10/2023 8:59 AM EST LABORATORY [facility] Calcium 8.7 8.4 - 10.2 mg/dL 12/10/2023 8:59 AM EST LABORATORY [facility] Blood Venous blood specimen / Unknown Venipuncture / Unknown 12/10/2023 8:12 AM EST 12/10/2023 8:25 AM EST Ricardo Berg LAB BLOOD ORDERABLE S Performing Organization Address City/[facility]/ZIP Co de Phone Number LABORATORY [facility] [address] [place] [address] * (ABNORMAL) PHOSPHORUS (12/09/2023 9:10 AM EST) Phosphorus 2.1(L) 2.5 - 4.8 mg/dL 12/09/2023 10:06 AM EST LABORATORY [facility] Blood Venous blood specimen / Unknown Venipuncture / Unknown 12/09/2023 9:10 AM EST 12/09/2023 9:40 AM EST Ricardo Berg LAB BLOOD ORDERABLE S Performing Organization Address [facility] Co de Phone Number LABORATORY [facility] [address] [place] [address] * MAGNESIUM (12/09/2023 9:10 AM EST) Magnesium 2.6 1.5 - 2.6 mg/dL 12/09/2023 10:06 AM EST LABORATORY [facility] Blood Venous blood specimen / Unknown Venipuncture / Unknown 12/09/2023 9:10 AM EST 12/09/2023 9:40 AM EST Ricardo Powers Otis LAB BLOOD ORDERABLE S Performing Organization Address City/[facility]/ZIP Co de Phone Number LABORATORY [facility] [address] [place] [address] * (ABNORMAL) CBC (12/09/2023 9:10 AM EST) WBC 6.59 4.00 - 10.80 K/uL 12/09/2023 9:48 AM EST LABORATORY [facility] RBC 3.91 4.50 - 5.25 M/uL 12/09/2023 9:48 AM EST LABORATORY [facility] HGB 12.5(L) 14.0 - 16.8 g/dL 12/09/2023 9:48 AM EST LABORATORY [facility] HCT 37.5(L) 40.0 - 48.4 % 12/09/2023 9:48 AM EST LABORATORY [facility] MCV 95.9 82.0 - 99.5 fL 12/09/2023 9:48 AM EST LABORATORY [facility] MCH 32.0 27.0 - 34.0 pg 12/09/2023 9:48 AM EST LABORATORY [facility] MCHC 33.3 32.0 - 36.0 g/dL 12/09/2023 9:48 AM EST LABORATORY [facility] RDW 16.4 11.5 - 15.5 % 12/09/2023 9:48 AM EST LABORATORY [facility] PLT 451(H) 140 - 400 K/uL 12/09/2023 9:48 AM EST LABORATORY [facility] MPV 9.4 6.6 - 11.1 fL 12/09/2023 9:48 AM EST LABORATORY [facility] nRBCs 0 <=0 /100 WBCs 12/09/2023 9:48 AM EST LABORATORY [facility] Blood Venous blood specimen / Unknown Venipuncture / Unknown 12/09/2023 9:10 AM EST 12/09/2023 9:40 AM EST Ricardo Berg DO LAB BLOOD ORDERABLE S LABORATORY [facility] [address] [place] [address] * (ABNORMAL) BASIC METABOLIC PANEL (12/09/2023 9:10 AM EST) BUN 10 6 - 20 mg/dL 12/09/2023 10:06 AM EST LABORATORY [facility] Creatinine 0.9 0.6 - 1.2 mg/dL 12/09/2023 10:06 AM EST LABORATORY [facility] Estimated Glomerular Filtration Rate >90 >=60 mL/min 12/09/2023 10:06 AM EST LABORATORY [facility] Comment:eGFR is calculated b ased on the CKD-EPI 2020 equation Sodium 138 135 - 146 mmol/L 12/09/2023 10:06 AM EST LABORATORY [facility] Potassium 3.2(L) 3.5 - 5.1 mmol/L 12/09/2023 10:06 AM EST LABORATORY [facility] Chloride 102 98 - 107 mmol/L 12/09/2023 10:06 AM EST LABORATORY [facility] CO2 24 22 - 32 mmol/L 12/09/2023 10:06 AM EST LABORATORY [facility] Anion Gap 12 7 - 15 mmol/L 12/09/2023 10:06 AM EST LABORATORY [facility] Glucose 149(H) 70 - 120 mg/dL 12/09/2023 10:06 AM EST LABORATORY [facility] Calcium 8.5 8.4 - 10.2 mg/dL 12/09/2023 10:06 AM EST LABORATORY [facility] Blood Venous blood specimen / Unknown Venipuncture / Unknown 12/09/2023 9:10 AM EST 12/09/2023 9:40 AM EST Ricardo Berg LAB BLOOD ORDERABLE S LABORATORY [facility] [address] [place] [address] * PHOSPHORUS (12/08/2023 7:55 AM EST) Phosphorus 2.6 2.5 - 4.8 mg/dL 12/08/2023 8:52 AM EST LABORATORY [facility] Blood Venous blood specimen / Unknown Venipuncture / Unknown 12/08/2023 7:55 AM EST 12/08/2023 8:25 AM EST Ricardo Berg DO LAB BLOOD ORDERABLE S Performing Organization Address City/[facility]/ZIP Co de Phone Number LABORATORY [facility] [address] [place] [address] * MAGNESIUM (12/08/2023 7:55 AM EST) Magnesium 2.6 1.5 - 2.6 mg/dL 12/08/2023 8:52 AM EST [facility] Blood Venous blood specimen / Unknown Venipuncture / Unknown 12/08/2023 7:55 AM EST 12/08/2023 8:25 AM EST Ricardo Berg DO LAB BLOOD ORDERABLE S [facility] [address] [place] [address] * (ABNORMAL) CBC (12/08/2023 7:55 AM EST) WBC 6.52 4.00 - 10.80 K/uL 12/08/2023 8:32 AM EST [facility] RBC 3.99 4.50 - 5.25 M/uL 12/08/2023 8:32 AM EST [facility] HGB 12.6(L) 14.0 - 16.8 g/dL 12/08/2023 8:32 AM EST [facility] HCT 38.0(L) 40.0 - 48.4 % 12/08/2023 8:32 AM EST [facility] MCV 95.2 82.0 - 99.5 fL 12/08/2023 8:32 AM EST [facility] MCH 31.6 27.0 - 34.0 pg 12/08/2023 8:32 AM EST [facility] MCHC 33.2 32.0 - 36.0 g/dL 12/08/2023 8:32 AM EST [facility] RDW 16.6 11.5 - 15.5 % 12/08/2023 8:32 AM EST [facility] PLT 419(H) 140 - 400 K/uL 12/08/2023 8:32 AM EST [facility] MPV 9.0 6.6 - 11.1 fL 12/08/2023 8:32 AM EST [facility] nRBCs 0 <=0 /100 WBCs 12/08/2023 8:32 AM EST [facility] Blood Venous blood specimen / Unknown Venipuncture / Unknown 12/08/2023 7:55 AM EST 12/08/2023 8:25 AM EST Ricadro Berg DO LAB BLOOD ORDERABLE S [facility] [address], [place] [id number] * (ABNORMAL) BASIC METABOLIC PANEL (12/08/2023 7:55 AM EST) BUN 8 6 - 20 mg/dL 12/08/2023 8:52 AM EST [facility] Creatinine 1.0 0.6 - 1.2 mg/dL 12/08/2023 8:52 AM EST [facility] Estimated Glomerular Filtration Rate 88 >=60 mL/min 12/08/2023 8:52 AM EST [facility] Comment:eGFR is calculated b ased on the CKD-EPI 2020 equation Sodium 139 135 - 146 mmol/L 12/08/2023 8:52 AM EST [facility] Potassium 3.6 3.5 - 5.1 mmol/L 12/08/2023 8:52 AM EST [facility] Chloride 103 98 - 107 mmol/L 12/08/2023 8:52 AM EST [facility] CO2 25 22 - 32 mmol/L 12/08/2023 8:52 AM EST [facility] Anion Gap 11 7 - 15 mmol/L 12/08/2023 8:52 AM EST [facility] Glucose 132(H) 70 - 120 mg/dL 12/08/2023 8:52 AM EST [facility] Calcium 8.6 8.4 - 10.2 mg/dL 12/08/2023 8:52 AM EST [facility] Blood Venous blood specimen / Unknown Venipuncture / Unknown 12/08/2023 7:55 AM EST 12/08/2023 8:25 AM EST Ricardo Berg DO LAB BLOOD ORDERABLE S Performing Organization Address City/[facility]/ZIP Co de Phone Number LABORATORY [facility] [address] [place] [address] * PHOSPHORUS (12/07/2023 7:44 AM EST) Phosphorus 2.9 2.5 - 4.8 mg/dL 12/07/2023 8:28 AM EST [facility] Blood Venous blood specimen / Unknown Venipuncture / Unknown 12/07/2023 7:44 AM EST 12/07/2023 7:57 AM EST [facility] S Performing Organization Address City/[facility]/ZIP Co de Phone Number LAB[facility]ATORY [facility] [address] [place] [address] * MAGNESIUM (12/07/2023 7:44 AM EST) Magnesium 2.3 1.5 - 2.6 mg/dL 12/07/2023 8:28 AM EST [facility] Blood Venous blood specimen / Unknown Venipuncture / Unknown 12/07/2023 7:44 AM EST 12/07/2023 7:57 AM EST Ricardo Berg LAB BLOOD ORDERABLE S Performing Organization Address [facility] de Phone Number [facility]ORY [facility] [address] [place] [address] * (ABNORMAL) CBC (12/07/2023 7:44 AM EST) WBC 5.82 4.00 - 10.80 K/uL 12/07/2023 8:11 AM EST [facility] RBC 3.84 4.50 - 5.25 M/uL 12/07/2023 8:11 AM EST [facility] HGB 12.1(L) 14.0 - 16.8 g/dL 12/07/2023 8:11 AM EST [facility] HCT 36.9(L) 40.0 - 48.4 % 12/07/2023 8:11 AM EST [facility] MCV 96.1 82.0 - 99.5 fL 12/07/2023 8:11 AM EST [facility] MCH 31.5 27.0 - 34.0 pg 12/07/2023 8:11 AM EST [facility] MCHC 32.8 32.0 - 36.0 g/dL 12/07/2023 8:11 AM EST [facility] RDW 16.6 11.5 - 15.5 % 12/07/2023 8:11 AM EST [facility] PLT 353 140 - 400 K/uL 12/07/2023 8:11 AM EST [facility] MPV 9.4 6.6 - 11.1 fL 12/07/2023 8:11 AM EST [facility] nRBCs 0 <=0 /100 WBCs 12/07/2023 8:11 AM EST [facility] Blood Venous blood specimen / Unknown Venipuncture / Unknown 12/07/2023 7:44 AM EST 12/07/2023 7:57 AM EST Ricardo Berg DO LAB BLOOD ORDERABLE S [facility] [address] [place] [address] * (ABNORMAL) BASIC METABOLIC PANEL (12/07/2023 7:44 AM EST) BUN 8 6 - 20 mg/dL 12/07/2023 8:28 AM EST [facility] Creatinine 0.9 0.6 - 1.2 mg/dL 12/07/2023 8:28 AM EST [facility] Estimated Glomerular Filtration Rate >90 >=60 mL/min 12/07/2023 8:28 AM EST [facility] Comment:eGFR is calculated b ased on the CKD-EPI 2020 equation Sodium 140 135 - 146 mmol/L 12/07/2023 8:28 AM EST [facility] Potassium 3.6 3.5 - 5.1 mmol/L 12/07/2023 8:28 AM EST [facility] Chloride 105 98 - 107 mmol/L 12/07/2023 8:28 AM EST [facility] CO2 24 22 - 32 mmol/L 12/07/2023 8:28 AM EST [facility] Anion Gap 11 7 - 15 mmol/L 12/07/2023 8:28 AM EST [facility] Glucose 139(H) 70 - 120 mg/dL 12/07/2023 8:28 AM EST [facility] Calcium 8.4 8.4 - 10.2 mg/dL 12/07/2023 8:28 AM EST [facility] Blood Venous blood specimen / Unknown Venipuncture / Unknown 12/07/2023 7:44 AM EST 12/07/2023 7:57 AM EST Ricardo Berg DO LAB BLOOD ORDERABLE S Performing Organization Address [facility] Co de Phone Number LABORATORY [facility] [address] [place] [address] * CORTISOL (12/06/2023 8:04 AM EST) Cortisol 11.2 2.5 - 19.5 ug/dL 12/06/2023 11:14 PM EST [facility] Comment: AM Reference Range: 4.8 - 19.5 ug/dL PM Reference Range: 2.5 - 11.9 ug/dL Blood Venous blood specimen / Unknown Venipuncture / Unknown 12/06/2023 8:04 AM EST 12/06/2023 8:41 AM EST Grayson Bello PA-C LAB BLOOD ORDE RABLES Performing Organization Address [facility] Co de Phone Number LABORATORY [facility] [address] [place] [address] * (ABNORMAL) PHOSPHORUS (12/06/2023 8:04 AM EST) Phosphorus 1.9(L) 2.5 - 4.8 mg/dL 12/06/2023 9:16 AM EST [facility] Blood Venous blood specimen / Unknown Venipuncture / Unknown 12/06/2023 8:04 AM EST 12/06/2023 8:41 AM EST Ricardo Berg DO LAB BLOOD ORDERABLE S Performing Organization Address [facility] de Phone Number LABORATORY [facility] [address] [place] [address] * MAGNESIUM (12/06/2023 8:04 AM EST) Magnesium 2.3 1.5 - 2.6 mg/dL 12/06/2023 9:16 AM EST [facility] Blood Venous blood specimen / Unknown Venipuncture / Unknown 12/06/2023 8:04 AM EST 12/06/2023 8:41 AM EST Ricardo Gio Berg DO LAB BLOOD ORDERABLE S [facility] [address] [place] [address] * (ABNORMAL) CBC (12/06/2023 8:04 AM EST) Pathologist [facility] WBC 5.48 4.00 - 10.80 K/uL 12/06/2023 8:48 AM EST [facility] RBC 3.59 4.50 - 5.25 M/uL 12/06/2023 8:48 AM EST [facility] HGB 11.4(L) 14.0 - 16.8 g/dL 12/06/2023 8:48 AM EST [facility] HCT 34.1(L) 40.0 - 48.4 % 12/06/2023 8:48 AM EST [facility] MCV 95.0 82.0 - 99.5 fL 12/06/2023 8:48 AM EST [facility] MCH 31.8 27.0 - 34.0 pg 12/06/2023 8:48 AM EST [facility] MCHC 33.4 32.0 - 36.0 g/dL 12/06/2023 8:48 AM EST [facility] RDW 16.5 11.5 - 15.5 % 12/06/2023 8:48 AM EST [facility] PLT 331 140 - 400 K/uL 12/06/2023 8:48 AM EST [facility] MPV 9.5 6.6 - 11.1 fL 12/06/2023 8:48 AM EST [facility] nRBCs 0 <=0 /100 WBCs 12/06/2023 8:48 AM EST [facility] Blood Venous blood specimen / Unknown Venipuncture / Unknown 12/06/2023 8:04 AM EST 12/06/2023 8:41 AM EST Ricardo Powers Jeff DO LAB BLOOD ORDERABLE S LABORATORY [facility] [address] [place] [address] * (ABNORMAL) BASIC METABOLIC PANEL (12/06/2023 8:04 AM EST) BUN 9 6 - 20 mg/dL 12/06/2023 9:16 AM EST [facility] Creatinine 0.9 0.6 - 1.2 mg/dL 12/06/2023 9:16 AM EST [facility] Estimated Glomerular Filtration Rate >90 >=60 mL/min 12/06/2023 9:16 AM EST [facility] Comment:eGFR is calculated b ased on the CKD-EPI 2020 equation Sodium 139 135 - 146 mmol/L 12/06/2023 9:16 AM EST [facility] Potassium 3.2(L) 3.5 - 5.1 mmol/L 12/06/2023 9:16 AM EST [facility] Chloride 106 98 - 107 mmol/L 12/06/2023 9:16 AM EST [facility] CO2 22 22 - 32 mmol/L 12/06/2023 9:16 AM EST [facility] Anion Gap 11 7 - 15 mmol/L 12/06/2023 9:16 AM EST [facility] Glucose 115 70 - 120 mg/dL 12/06/2023 9:16 AM EST [facility] Calcium 8.3(L) 8.4 - 10.2 mg/dL 12/06/2023 9:16 AM EST [facility] Blood Venous blood specimen / Unknown Venipuncture / Unknown 12/06/2023 8:04 AM EST 12/06/2023 8:41 AM EST Ricardo Berg DO LAB BLOOD ORDERABLE S LABORATORY [facility] [address] [place] [address] * MRSA SCREEN, PCR (12/05/2023 8:44 PM EST) Pathologist [facility] MRSA PCR Result Negative Negative 12:15 AM EST LAB[facility] Comment:No Methicillin resis tant Staphylococcus aureus detected by PCR (amplified probe). Upper Respiratory Swab of internal nose / Unknown Non-blood Collection / Unknown 12/05/2023 8:44 PM EST 12/05/2023 9:08 PM EST Rufina Dougherty LAB MICRO - GENERAL ORDERABLES LABORATORY [facility] [address] [place] [address] * MRI BRAIN W WO CONTRAST (12/05/2023 5:38 PM EST) Anatomical Region Laterality Modality Neuro, Head Magnetic Resonan ce 12/05/2023 7:22 PM EST Impressions 12/05/2023 7:20 PM EST IMPRESSION 1. No intracranial metastatic disease. 2. 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 Narrative 12/05/2023 7:20 PM EST EXAM BRAIN MRI WITHOUT AND WITH CONTRAST [...] white matter are nonspecific and may reflect sequela of chronic microvascular ischemia. The larger intracranial vascular flow voids are maintained. Mild mucosal thickening in the bilateral ethmoid air cells. Bilateral mastoid air cells are clear. Procedure Note Ofe Nguyen DO - 12/05/2023 EXAM BRAIN MRI WITHOUT AND WITH CONTRAST - 12/05/2023 HISTORY Metastatic workup. Known history of lung cancer. COMPARISON MRI brain dated 09/30/2023. TECHNIQUE Multiplanar, multisequence MRI of the brain was performed without and withintravenous contrast. FINDINGS No acute infarct, acute intracranial hemorrhage, mass effect, midlineshift, hydrocephalus, or extra-axial fluid collection. Mild volume loss with proportionate prominence of the ventricles andsulci. Subacute to chronic right MCA territory infarct is notedassociated with gyriform enhancement. A few patchy foci of [id number] in the subcortical and periventricular white matter arenonspecific and may reflect sequela of chronic microvascular ischemia.The larger intracranial vascular flow voids are maintained. Mild mucosal thickening in the bilateral ethmoid air cells. Bilateralmastoid air cells are clear. IMPRESSION IMPRESSION 1. No intracranial metastatic disease. 2. 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 Gonslao Fernando MD RAD MRI-MRA * (ABNORMAL) CULTURE, RESPIRATORY, LOWER, AEROBIC (12/05/2023 10:54 AM EST) Culture Growth Moderate Yeast(A) 07/2024 1:15 PM EST [facility] Stain Description No purulence detected. <25 neutrophils/low power microscopic field. 12/07/2023 1:15 PM EST [facility] Stain Description Occasional Polymorphonuclear leukocytes 12/07/2023 1:15 PM EST [facility] Stain Description Few Gram positive cocci in clusters 12/07/2023 1:15 PM EST [facility] Stain Description Rare Budding yeast with pseudohyphae 12/07/2023 1:15 PM EST [facility] Lower Respiratory Sputum specimen / Unknown Non-blood Collection / Unknown 12/05/2023 10:54 AM EST 12/05/2023 11:12 AM EST Narrative LAB[facility]ORY [facility] - 12/07/2023 1:15 PM EST Moderate growth normal héctor Bean Pak DO LAB MICRO - GENERAL ORDERABLES Performing Organization Address City/State/[facility] Co de Phone Number LABORATORY [facility] [address] [place] [address] * (ABNORMAL) LD (12/05/2023 5:27 AM EST) LD 440(H) <=250 U/L 12/05/2023 10:21 AM EST [facility] Comment:Result may be falsel y elevated due to hemolysis. Blood Venous blood specimen / Unknown Venipuncture / Unknown 12/05/2023 5:27 AM EST 12/05/2023 5:48 AM EST Grayson Bello PA-C LAB BLOOD ORDE JANINA LAB[facility]AT[facility] [address] [place] [address] * PHOSPHORUS (12/05/2023 5:27 AM EST) Phosphorus 3.4 2.5 - 4.8 mg/dL 12/05/2023 6:07 AM EST [facility] Blood Venous blood specimen / Unknown Venipuncture / Unknown 12/05/2023 5:27 AM EST 12/05/2023 5:48 AM EST Ricardo Berg DO LAB BLOOD ORDERABLE S Performing Organization Address City/[facility]/ZIP Co de Phone Number LABORATORY [facility] [address] [place] [address] * MAGNESIUM (12/05/2023 5:27 AM EST) Magnesium 2.2 1.5 - 2.6 mg/dL 12/05/2023 6:07 AM EST [facility] Blood Venous blood specimen / Unknown Venipuncture / Unknown 12/05/2023 5:27 AM EST 12/05/2023 5:48 AM EST Ricardo Berg DO LAB BLOOD ORDERABLE S Performing Organization Address City/[facility]/ZIP Co de Phone Number LAB[facility]ATORY [facility] [address] [place] [address] * (ABNORMAL) CBC (12/05/2023 5:27 AM EST) WBC 4.87 4.00 - 10.80 K/uL 12/05/2023 6:04 AM EST [facility] RBC 3.80 4.50 - 5.25 M/uL 12/05/2023 6:04 AM EST [facility] HGB 12.2(L) 14.0 - 16.8 g/dL 12/05/2023 6:04 AM EST [facility] HCT 36.1(L) 40.0 - 48.4 % 12/05/2023 6:04 AM EST [facility] MCV 95.0 82.0 - 99.5 fL 12/05/2023 6:04 AM EST [facility] MCH 32.1 27.0 - 34.0 pg 12/05/2023 6:04 AM EST LABORATORY GM MCHC 33.8 32.0 - 36.0 g/dL 12/05/2023 6:04 AM EST LABORATORY [facility] RDW 16.3 11.5 - 15.5 % 12/05/2023 6:04 AM EST LABORATORY [facility] PLT 289 140 - 400 K/uL 12/05/2023 6:04 AM EST LABORATORY GM MPV 9.6 6.6 - 11.1 fL 12/05/2023 6:04 AM EST LABORATORY [facility] nRBCs 0 <=0 /100 WBCs 12/05/2023 6:04 AM EST LABORATORY GM Blood Venous blood specimen / Unknown Venipuncture / Unknown 12/05/2023 5:27 AM EST 12/05/2023 5:48 AM EST Ricardo Berg DO LAB BLOOD ORDERABLE S LABORATORY [facility] [address] [place] [address] * (ABNORMAL) BASIC METABOLIC PANEL (12/05/2023 5:27 AM EST) BUN 10 6 - 20 mg/dL 12/05/2023 6:07 AM EST [facility] Creatinine 0.9 0.6 - 1.2 mg/dL 12/05/2023 6:07 AM EST [facility] Estimated Glomerular Filtration Rate >90 >=60 mL/min 12/05/2023 6:07 AM EST [facility] Comment:eGFR is calculated b ased on the CKD-EPI 2020 equation Sodium 140 135 - 146 mmol/L 12/05/2023 6:07 AM EST [facility] Potassium 3.1(L) 3.5 - 5.1 mmol/L 12/05/2023 6:07 AM EST [facility] Chloride 106 98 - 107 mmol/L 12/05/2023 6:07 AM EST [facility] CO2 23 22 - 32 mmol/L 12/05/2023 6:07 AM EST [facility] Anion Gap 11 7 - 15 mmol/L 12/05/2023 6:07 AM EST [facility] Glucose 125(H) 70 - 120 mg/dL 12/05/2023 6:07 AM EST [facility] Calcium 8.1(L) 8.4 - 10.2 mg/dL 12/05/2023 6:07 AM EST [facility] Blood Venous blood specimen / Unknown Venipuncture / Unknown 12/05/2023 5:27 AM EST 12/05/2023 5:48 AM EST Ricardo Berg LAB BLOOD ORDERABLE S LABORATORY [facility] [address] [place] [address] * (ABNORMAL) BLOOD GAS, VENOUS (12/05/2023 12:48 AM EST) Temperature 37.0 C 12/05/2023 12:58 AM EST LAB[facility] pH, Venous 7.448(H) 7.320 - 7.430 units 12/05/2023 12:58 AM EST LAB[facility] pCO2, Venous 35.9(L) 40.0 - 60.0 mmHg 12/05/2023 12:58 AM EST LAB[facility] pO2, Venous 48.1 25.0 - 50.0 mmHg 12/05/2023 12:58 AM EST [facility] Base Excess, Venous 1.2 -2.0 - 2.0 mmol/L 12/05/2023 12:58 AM EST [facility] Hemoglobin, Whole Blood 12.4(L) 14.0 - 16.8 g/dL 12/05/2023 12:58 AM EST [facility] Oxyhemoglobin, Venous 82.0 40.0 - 85.0 % total Hgb 12/05/2023 12:58 AM EST [facility] Carboxyhemoglobi n, Whole Blood 1.5 <=1.5 % total Hgb 12/05/2023 12:58 AM EST [facility] Comment:Smokers: 0-9.0 % Methemoglobin, Whole Blood 0.6 <=1.5 % total Hgb 12/05/2023 12:58 AM EST [facility] Reduced Hemoglobin, Venous 15.9 % total Hgb 12/05/2023 12:58 AM EST [facility] O2 Content, Venous 14.3 7.0 - 18.0 %vol 12/05/2023 12:58 AM EST [facility] Bicarbonate, Whole Blood 24.5 23.0 - 31.0 mmol/L 12/05/2023 12:58 AM EST [facility] Blood Venous blood specimen / Unknown Venipuncture / Unknown 12/05/2023 12:48 AM EST 12/05/2023 12:54 AM EST Ricardo Piercefeli Berg LAB BLOOD ORDERABLE S LABORATORY C [address] [place] [address] * STREPTOCOCCUS PNEUMONIAE ANTIGENS, URINE (12/04/2023 8:12 PM EST) S. Pneumoniae Ag, Urine Not Detected Not Detected 12/07/2023 6:20 AM EST [place] [place] [facility] Comment: Test Performed at: [employer] [address] [id number] Gonsalo Silva M.D., Ph.D.,Director of Laboratories Urine Urine specimen obtained by clean catch procedure / Unknown Non-blood Collection / Unknown 12/04/2023 8:12 PM EST 12/04/2023 8:21 PM EST Ricardo Powers [facility] LAB URINE ORDERABLE S [place] [address] [place] [address] * LEGIONELLA ANTIGEN, URINE (12/04/2023 8:12 PM EST) Legionella Antigen, Urine Negative Negative 12/05/2023 9:09 AM EST LABORATORY [facility] Comment:Presumptive negative for L. pneumophila serogroup 1 antigens. A negative result does not rule out the possibility of Legionella infection due to other serogroups or species of Legionella. Urine Urine specimen obtained by clean catch procedure / Unknown Non-blood Collection / Unknown 12/04/2023 8:12 PM EST 12/04/2023 8:21 PM EST Ricardo Gio Otis FAY LAB URINE ORDERABLE S LABORATORY [facility] [address] [place] [address] * (ABNORMAL) URINALYSIS, REFLEX TO CULTURE (12/04/2023 8:12 PM EST) Color, Urine Colorless Colorless, Light Yellow, Yellow, Dark Yellow 12/04/2023 8:49 PM EST LAB[facility]ORY [facility] Clarity, Urine Clear Clear 12/04/2023 8:49 PM EST [facility] Glucose, Urine Negative Negative mg/dL 12/04/2023 8:49 PM EST [facility] Bilirubin, Urine Negative Negative 12/04/19 8:49 PM EST [facility] Ketone, Urine Negative Negative mg/dL 12/04/2023 8:49 PM EST LAB[facility] Specific [place], Urine 1.010 1.003 - 1.030 12/04/2023 8:49 PM EST [facility] Blood, Urine Negative Negative 12/04/2023 8:49 PM EST [facility] pH, Urine 6.0 5.0 - 7.5 Units 12/04/2023 8:49 PM EST [facility] Protein, Urine Negative Negative mg/dL 12/04/2023 8:49 PM EST [facility] Urobilinogen, Urine Normal Normal mg/dL 12/04/2023 8:49 PM EST [facility] Nitrite, Urine Negative Negative 12/04/2023 8:49 PM EST [facility] Esterase, Urine Negative Negative 8:49 PM EST LAB[facility] RBC, Urine 0-2 0 - 2 /HPF 12/04/2023 8:49 PM EST [facility] WBC, Urine 3-5(A) 0 - 2 /HPF 12/04/2023 8:49 PM EST LAB[facility] Bacteria, Urine 0-25 0 - 25 /HPF 12/04/19 24 8:49 PM EST LAB[facility]ATORY [facility] Transitional Epithelial Cells, Urine 1-4(A) None /HPF 12/04/2023 8:49 PM EST [facility] Culture, Urine 12/04/2023 8:49 PM EST LABORATORY [facility] Comment:Culture not indicate d by urinalysis results Urine Urine specimen obtained by clean catch procedure / Unknown Non-blood Collection / Unknown 12/04/2023 8:12 PM EST 12/04/2023 8:21 PM EST Milena Mcdaniels DO LAB URINE ORDER YANA Performing Organization Address City/[facility]/ZIP Co de Phone Number LABORATORY [facility] [address] [place] [address] * URINALYSIS, REFLEX TO CULTURE (CUP ONLY) (12/04/2023 8:12 PM EST) Urinalysis, Reflex to Culture Specimen Specimen collected and received 12/04/2023 10:01 PM EST LABORATORY [facility] Urine Urine specimen obtained by clean catch procedure / Unknown Non-blood Collection / Unknown 12/04/2023 8:12 PM EST 12/04/2023 8:21 PM EST Milena Mcdaniels DO LAB URINE ORDER YAAN Performing Organization Address [facility] de Phone Number LABORATORY [facility] [address] [place] [address] * XR CHEST 2 VIEWS (12/04/2023 7:23 PM EST) Anatomical Region Laterality Modality Chest Digital Radiogra phy 12/04/2023 8:16 PM EST Impressions 12/04/2023 8:13 PM EST IMPRESSION Similar left upper lung ill-defined density, likely inflammatory/infectious. Lower lobe nodules better demonstrated on prior CT. Narrative 12/04/2023 8:13 PM EST EXAM XR CHEST 2 VIEWS-12/04/2023 7:23 pm HISTORY [...] within normal limits. No acute osseous abnormality. Procedure Note Sabas Mccormack MD - 12/04/2023 EXAM XR CHEST 2 VIEWS-12/04/2023 7:23 pm HISTORY fever, concern for pneumonitis COMPARISON Chest radiograph and CT 12/02/2023. TECHNIQUE Frontal and lateral views of the chest are examined. FINDINGS Right chest Port-A-Cath tip projects over the right atrium. Similar leftupper lung peripheral ill-defined density, likely inflammatory/infectious.Similar bibasilar streaky opacities. Lower lung nodules betterdemonstrated on CT 12/02/2023. No pleural effusion or discerniblepneumothorax. The pulmonary vasculature and cardiomediastinal silhouetteare within normal limits. No acute osseous abnormality. IMPRESSION IMPRESSION Similar left upper lung ill-defined density, likelyinflammatory/infectious. Lower lobe nodules better demonstrated on priorCT. Milena Mcdaniels DO RADIOLOGY (RAD GENERAL) * RESPIRATORY PATHOGEN PANEL, PCR (12/04/2023 6:34 PM EST) Adenovirus by PCR Negative Negative 024 8:30 PM EST LABORATORY [facility] Coronavirus 229E by PCR Negative Negative 12/04/2023 8:30 PM EST LABORATORY [facility] Coronavirus HKU1 by PCR Negative Negative 12/04/2023 8:30 PM EST LABORATORY [facility] Coronavirus NL63 by PCR Negative Negative 12/04/2023 8:30 PM EST LABORATORY [facility] Coronavirus OC43 by PCR Negative Negative 12/04/2023 8:30 PM EST LABORATORY [facility] Coronavirus SARS-CoV-2 by PCR Negative Negative 12/04/2023 8:30 PM EST LABORATORY [facility] Human Metapneumovirus by PCR Negative Negative 12/04/2023 8:30 PM EST LABORATORY [facility] Rhinovirus/Enterovi yuan by PCR Negative Negative 12/04/2023 8:30 PM EST LABORATORY [facility] Influenza A Virus by PCR Negative Negative 12/04/2023 8:30 PM EST LABORATORY [facility] Influenza B Virus by PCR Negative Negative 12/04/2023 8:30 PM EST LABORATORY [facility] Parainfluenza Virus 1 by PCR Negative Negative 12/04/2023 8:30 PM EST LABORATORY [facility] Parainfluenza Virus 2 by PCR Negative Negative 12/04/2023 8:30 PM EST LABORATORY [facility] Parainfluenza Virus 3 by PCR Negative Negative 12/04/2023 8:30 PM EST LABORATORY [facility] Parainfluenza Virus 4 by PCR Negative Negative 12/04/2023 8:30 PM EST LABORATORY [facility] Respiratory Syncytial Virus by PCR Negative Negative 12/04/2023 8:30 PM EST LABORATORY [facility] Bordetella pertussis by PCR Negative Negative 12/04/2023 8:30 PM EST LABORATORY [facility] Chlamydia pneumoniae by PCR Negative Negative 12/04/2023 8:30 PM EST LABORATORY [facility] Mycoplasma pneumoniae by PCR Negative Negative 12/04/2023 8:30 PM EST LABORATORY [facility] Bordetella parapertussis by PCR Negative Negative 12/04/2023 8:30 PM EST LABORATORY [facility] Comment: The primers that detect Rhinovirus may cross react with some Enterorviruses. The validation of bronchial specimens, tracheal aspirates, and throats for this assay was developed and performance characteristics determined by [facility]. The validation of alternate specimen types has not been cleared or approved by the U.S. Food and Drug Administration (FDA). It has been determined that such clearance or approval is not necessary. Upper Respiratory Mid-turbinate nasal swab / Unknown Non-blood Collection / Unknown 12/04/2023 6:34 PM EST 12/04/2023 7:05 PM EST Milena Mcdaniels DO LAB MICRO - GEN ERAL ORDERABLES LABORATORY [facility] [address] [place] [address] * CULTURE, BLOOD (12/04/2023 6:30 PM EST) Blood Culture Growth No growth 12/09/2023 8:01 PM EST LABORATORY [facility] Blood Venous blood specimen / Unknown Venipuncture / Unknown 12/04/2023 6:30 PM EST 12/04/2023 7:09 PM EST Milena Reese Arslan FYA LAB MICRO - GEN ERAL ORDERABLES LAB[facility]ATORY [facility] [address] [place] [address] * (ABNORMAL) DIFFERENTIAL, AUTOMATED (12/04/2023 6:25 PM EST) WBC 5.06 4.00 - 10.80 K/uL 12/04/2023 6:57 PM EST [facility] Neutrophils % 53.3 40.0 - 75.0 % 12/04/2023 6:57 PM EST [facility] Lymphocytes % 26.9 18.0 - 42.0 % 12/04/2023 6:57 PM EST [facility] Monocytes % 15.2(H) 1.0 - 11.0 % 12/04/2023 6:57 PM EST [facility] Eosinophils % 2.0 0.0 - 6.0 % 12/04/2023 6:57 PM EST [facility] Basophils % 1.2 0.0 - 2.0 % 12/04/2023 6:57 PM EST [facility] Immature Granulocytes % 1.4 0.0 - 2.0 % 12/04/2023 6:57 PM EST [facility] Absolute Neutrophils 2.70 1.80 - 7.70 K/uL 12/04/2023 6:57 PM EST [facility] Absolute Lymphocytes 1.36 1.00 - 4.80 K/ul 12/04/2023 6:57 PM EST [facility] Absolute Monocytes 0.77 0.00 - 1.10 K/uL 12/04/2023 6:57 PM EST [facility] Absolute Eosinophils 0.10 0.00 - 0.70 K/uL 12/04/2023 6:57 PM EST [facility] Absolute Basophils 0.06 0.00 - 0.20 K/uL 12/04/2023 6:57 PM EST [facility] Absolute Immature Granulocytes 0.07 0.00 - 0.20 K/uL 12/04/2023 6:57 PM EST [facility] Blood Venous blood specimen / Unknown Venipuncture / Unknown 12/04/2023 6:25 PM EST 12/04/2023 6:45 PM EST Milena Mary Annloi Mcdaniels LAB BLOOD ORDER YANA Performing Organization Address City/[facility]/ZIP Co de Phone Number [facility] [address], [place] [id number] * (ABNORMAL) CBC (12/04/2023 6:25 PM EST) WBC 5.06 4.00 - 10.80 K/uL 12/04/2023 6:57 PM EST [facility] RBC 4.05 4.50 - 5.25 M/uL 12/04/2023 6:57 PM EST [facility] HGB 13.2(L) 14.0 - 16.8 g/dL 12/04/2023 6:57 PM EST [facility] HCT 39.0(L) 40.0 - 48.4 % 12/04/2023 6:57 PM EST [facility] MCV 96.3 82.0 - 99.5 fL 12/04/2023 6:57 PM EST [facility] MCH 32.6 27.0 - 34.0 pg 12/04/2023 6:57 PM EST [facility] MCHC 33.8 32.0 - 36.0 g/dL 12/04/2023 6:57 PM EST [facility] RDW 16.5 11.5 - 15.5 % 12/04/2023 6:57 PM EST [facility] PLT 332 140 - 400 K/uL 12/04/2023 6:57 PM EST [facility] MPV 9.2 6.6 - 11.1 fL 12/04/2023 6:57 PM EST [facility] nRBCs 1(H) <=0 /100 WBCs 12/04/2023 6:57 PM EST [facility] Blood Venous blood specimen / Unknown Venipuncture / Unknown 12/04/2023 6:25 PM EST 12/04/2023 6:45 PM EST Milena Mary Ann Mcdaniels DO LAB BLOOD ORDER YANA [facility] [address] [place] [address] * TROPONIN T, HIGH SENSITIVITY (12/04/2023 6:25 PM EST) [facility] Troponin T, High Sensitivity 11 <=22 ng/L 12/04/2023 7:05 PM EST [facility] Blood Venous blood specimen / Unknown Venipuncture / Unknown 12/04/2023 6:25 PM EST 12/04/2023 6:45 PM EST Milena Mcdaniels DO LAB BLOOD ORDER YANA [facility] [address] [place] [address] * (ABNORMAL) BLOOD GAS, VENOUS (12/04/2023 6:25 PM EST) [facility] Temperature 37.0 C 12/04/2023 6:51 PM EST [facility] pH, Venous 7.384 7.320 - 7.430 units 12/04/2023 6:51 PM EST [facility] pCO2, Venous 47.0 40.0 - 60.0 mmHg 12/04/2023 6:51 PM EST [facility] pO2, Venous 22.2(L) 25.0 - 50.0 mmHg 12/04/2023 6:51 PM EST [facility] Base Excess, Venous 2.5(H) -2.0 - 2.0 mmol/L 12/04/2023 6:51 PM EST [facility] Hemoglobin, Whole Blood 9.5(L) 14.0 - 16.8 g/dL 12/04/2023 6:51 PM EST [facility] Oxyhemoglobin, Venous 30.4(L) 40.0 - 85.0 % total Hgb 12/04/2023 6:51 PM EST [facility] Carboxyhemoglobi n, Whole Blood 0.9 <=1.5 % total Hgb 12/04/2023 6:51 PM EST [facility] Comment:Smokers: 0-9.0 % Methemoglobin, Whole Blood 0.7 <=1.5 % total Hgb 12/04/2023 6:51 PM EST [facility] Reduced Hemoglobin, Venous 68.0 % total Hgb 12/04/2023 6:51 PM EST [facility] O2 Content, Venous 4.1(L) 7.0 - 18.0 %vol 12/04/2023 6:51 PM EST LABORATORY [facility] Bicarbonate, Whole Blood 27.4 23.0 - 31.0 mmol/L 12/04/2023 6:51 PM EST LABORATORY [facility] Blood Venous blood specimen / Unknown Venipuncture / Unknown 12/04/2023 6:25 PM EST 12/04/2023 6:45 PM EST Milena Mary Annloi Mcdaniels LAB BLOOD ORDER YANA Performing Organization Address [facility]/ZIP Co de Phone Number LABORATORY [facility] [address] [place] [address] * CULTURE, BLOOD (12/04/2023 6:25 PM EST) [facility] Blood Culture Growth No growth 12/09/2023 8:01 PM EST LABORATORY [facility] Blood Venous blood specimen / Unknown Venipuncture / Unknown 12/04/2023 6:25 PM EST 12/04/2023 7:09 PM EST Milena Mcdaniels LAB MICRO - GEN ERAL ORDERABLES Performing Organization Address [facility] Co de Phone Number LABORATORY [facility] [address] [place] [address] * (ABNORMAL) COMPREHENSIVE METABOLIC PANEL (12/04/2023 6:25 PM EST) Pathologist [facility] BUN 12 6 - 20 mg/dL 12/04/2023 7:05 PM EST LABORATORY [facility] Creatinine 0.9 0.6 - 1.2 mg/dL 12/04/2023 7:05 PM EST LAB[facility]ATORY [facility] Estimated Glomerular Filtration Rate >90 >=60 mL/min 12/04/2023 7:05 PM EST LABORATORY [facility] Comment:eGFR is calculated b ased on the CKD-EPI 2020 equation Sodium 138 135 - 146 mmol/L 12/04/2023 7:05 PM EST [facility] Potassium 3.3(L) 3.5 - 5.1 mmol/L 12/04/2023 7:05 PM EST [facility] Chloride 102 98 - 107 mmol/L 12/04/2023 7:05 PM EST [facility] CO2 25 22 - 32 mmol/L 12/04/2023 7:05 PM EST [facility] Anion Gap 11 7 - 15 mmol/L 12/04/2023 7:05 PM EST [facility] Glucose 122(H) 70 - 120 mg/dL 12/04/2023 7:05 PM EST [facility] Albumin 4.1 3.8 - 5.0 g/dL 12/04/2023 7:05 PM EST [facility] AST 35 10 - 50 U/L 12/04/2023 7:05 PM EST [facility] Alkaline Phosphatase 81 35 - 130 U/L 12/04/2023 7:05 PM EST [facility] Bilirubin, Total 0.4 <=1.2 mg/dL 12/04/2023 7:05 PM EST [facility] Calcium 9.0 8.4 - 10.2 mg/dL 12/04/2023 7:05 PM EST [facility] Protein 7.1 6.0 - 8.3 g/dL 12/04/2023 7:05 PM EST [facility] ALT 68(H) 10 - 50 U/L 12/04/2023 7:05 PM EST [facility] Blood Venous blood specimen / Unknown Venipuncture / Unknown 12/04/2023 6:25 PM EST 12/04/2023 6:45 PM EST Milena Mcdaniels DO LAB BLOOD ORDER YANA Performing Organization Address City/State/[facility] Co de Phone Number LABORATORY [facility] [address] [place] [address] documented in this encounter Visit Diagnoses Diagnosis Acute hypoxic respiratory failure (HCC)- Primary Pneumonia Pneumonia, organism unspecified Chest pain Chest pain, unspecified Acute hypoxic respiratory failure (HCC) Other nonspecific abnormal finding of lung field Other foreign object in bronchus causing asphyxiation, initial encounter Primary malignant neoplasm of left lower lobe of lung (HCC) Malignant neoplasm of lower lobe, bronchus, or lung Immunodeficiency (HCC) Unspecified immunity deficiency History of pulmonary embolism Personal history of pulmonary embolism Pneumonia Pneumonia, organism unspecified Dyspnea on exertion Other dyspnea and respiratory abnormality Malnutrition of moderate degree (HCC) Malnutrition of moderate degree documented in this encounter Administered Medications Inactive Administered Medications - up to 3 most recent administrations Medication Order MAR Action Action Date Dose Rate Site Acetaminophen (Tylenol) tab 975 mg 975 mg, Oral, ONCE, On Sat12/04/23 at 2100, For 1 dose, Maximum of 4 grams (4000 mg) per day. Given 12/04/2023 8:21 PM EST 975 mg Acetaminophen (Tylenol) tab 975 mg 975 mg, Oral, Q6H PRN Pain, Mild, Pain, Moderate, Fever >38C(100.5F), Pain, Severe, Starting on Sat12/05/23 at 0222, Until Sat12/12/23 at 1641, Maximum of 4 grams (4000 mg) per day. Given 12/11/2023 12:19 PM EST 975 mg Given 12/10/2023 10:42 PM EST 975 mg Given 12/10/2023 8:46 AM EST 975 mg Albuterol Sulfate (Proventil) (2.5 MG/3ML) 0.083% inhalation solution 2.5 mg 2.5 mg, Nebulizer, Q4H PRN Dyspnea, Starting on Sat12/04/23 at 2200, Until Sat12/12/23 at 1641 Given 12/05/2023 12:18 AM EST 2.5 mg amLODIPine (Norvasc) tab 2.5 mg 2.5 mg, Oral, Daily(AM), First dose on Sat12/05/23 at 0900, Until Discontinued Given 12/12/2023 8:06 AM EST 2.5 mg Given 12/11/2023 1:18 PM EST 2.5 mg Given 12/10/2023 10:09 AM EST 2.5 mg atorvaSTATin (Lipitor) tab 40 mg 40 mg, Oral, Daily(AM), First dose on Sat12/05/23 at 0900, Until Discontinued Given 12/12/2023 8:06 AM EST 40 mg Given 12/11/2023 1:18 PM EST 40 mg Given 12/10/2023 10:09 AM EST 40 mg Azithromycin (Zithromax) tab 250 mg 250 mg, Oral, Daily(AM), First dose on Sat12/05/23 at 0900, Last dose on Sat12/09/23 at 0900, For 5 days Given 12/05/2023 10:13 AM EST 250 mg cefepime in D5W (Maxipime) ivpb (THREE hour infusion) 1 g 1 g, IV Piggyback, Q6HNOW, 19 doses, First dose (after last modification) on Sat12/05/23 at 1830, Last dose on Sat12/10/23 at 0630, THREE HOUR INFUSION New Bag 12/06/2023 5:04 AM EST 1 g 16.67 mL/hr New Bag 12/06/2023 12:30 AM EST 1 g 16.67 mL/hr Start Infusion 12/05/2023 6:37 PM EST 1 g 16.67 mL/ hr cefepime in dextrose premix ivpb 2 g 2 g, IV Piggyback, ONCE, 1 dose, On Sat12/05/23 at 1115, Administer over 30 Minutes New Bag 12/05/2023 1:31 PM EST 2 g 100 mL/hr cefTRIAXone in dextrose (Rocephin) IVPB 2 g IV Piggyback, 2 g, Q24H, 5 doses, First dose on Sat12/06/23 at 1200, Last dose on Sat12/10/23 at 1200, Administer over 30 Minutes New Bag 12/10/2023 1:59 PM EST 2 g 100 mL/hr New Bag 12/09/2023 12:29 PM EST 2 g 100 mL/hr New Bag 12/08/2023 12:10 PM EST 2 g 100 mL/hr Enoxaparin (Lovenox) inj 80 mg 80 mg, Subcutaneous, Q12H, First dose on Sat12/04/23 at 2245, Until Discontinued, If patient is on warfarin, inform provider if daily INR value is 2 or greater! Given 12/10/2023 10:09 AM EST 80 mg Abdomen Left Lower Given 12/09/2023 9:06 PM EST 80 mg Ab domen Left Lower Given 12/09/2023 8:13 AM EST 80 mg Ab domen Right Upper Enoxaparin (Lovenox) inj 80 mg 80 mg, Subcutaneous, Q12H, First dose (after last modification) on Sat12/11/23 at 2100, Until Discontinued, If patient is on warfarin, inform provider if daily INR value is 2 or greater! Given 12/12/2023 8:06 AM EST 80 mg Abdomen Left Lower Given 12/11/2023 8:58 PM EST 80 mg Ab domen Left Lower folic acid tab 1 mg 1 mg, Oral, Daily(AM), First dose on Sat12/05/23 at 0900, Until Discontinued Given 12/12/2023 8:06 AM EST 1 mg Given 12/11/2023 1:18 PM EST 1 mg Given 12/10/2023 10:09 AM EST 1 mg Furosemide (Lasix) inj 40 mg 40 mg, IV Push, ONCE, On Sat12/04/23 at 2245, For 1 dose Given 12/04/2023 11:14 PM EST 40 mg Furosemide (Lasix) inj 40 mg 40 mg, IV Push, ONCE, On 12/07/23 at 1045, For 1 dose Given 12/07/2023 10:35 AM EST 40 mg Furosemide (Lasix) inj 40 mg 40 mg, IV Push, ONCE, On 12/08/23 at 0830, For 1 dose Given 12/08/2023 8:53 AM EST 40 mg gadobutrol (Gadavist) inj 10.5 mL 10.5 mL (rounded from 10.52 mL = 0.1 mL/kg 105.2 kg), Intravenous, ONCE, On Sat12/05/23 at 1830, For 1 dose, Radiology Medication Routing (Non-IR) Given 12/05/2023 6:30 PM EST 10.5 mL hydrOXYzine HCl tab 25 mg 25 mg, Oral, TID PRN Anxiety, Agitation, Starting on Sat12/08/23 at 0749, Until Sat12/12/23 at 1641 hydrOXYzine HCl tab 50 mg 50 mg, Oral, ONCE, On Sat12/05/23 at 0345, For 1 dose Given 12/05/2023 3:08 AM EST 50 mg LORAzepam (Ativan) tab 0.5 mg 0.5 mg, Oral, Q12H PRN Anxiety, Starting on Sat12/06/23 at 0711, Until Sat12/08/23 at 0749 Given 12/07/2023 9:16 PM EST 0.5 mg Given 12/06/2023 11:31 PM EST 0.5 mg Given 12/06/2023 7:26 AM EST 0.5 mg omeprazole (PriLOSEC) cap 40 mg 40 mg, Oral, Daily(AM), First dose on Sat12/10/23 at 0930, Until Discontinued, This med should NOT be Crushed or Chewed Given 12/12/2023 8:06 AM EST 40 mg Given 12/11/2023 1:18 PM EST 40 mg Given 12/10/2023 10:15 AM EST 40 mg ondansetron (Zofran) inj 4 mg 4 mg, IV Push, Q6H PRN Nausea, Vomiting, Starting on Sat12/06/23 at 0711, Until Sat12/12/23 at 1641 Given 12/10/2023 7:58 AM EST 4 mg Given 12/08/2023 10:17 PM EST 4 mg Given 12/08/2023 7:43 AM EST 4 mg oxygen GAS Inhalation, OXYGEN, First dose on Sat12/09/23 at 1100, Until Discontinued, Device/Managed by: Low Flow Device, [...] less than 85% and when escalating delivery device., Wean patient off Oxygen when the oxygen saturation is greater than or equal to 93% Oxygen On 12/12/2023 8:00 AM EST 2 L/min(Oxygen) Oxygen On 12/12/2023 12:00 AM EST 2 L/min(Oxygen) Oxygen On 12/11/2023 4:00 PM EST 2 L/min(Oxygen) Piperacillin-Tazobactam (Zosyn) 4.5 g in 100 mL NSS ivpb (FOUR hour infusion) IV Piggyback, 4.5 g, Q8HNOW, 15 doses, First dose on Sat12/05/23 at 0115, Last dose on Sat12/09/23 at 1715, Administer over 4 Hours, at 27.5 mL/hr New Bag 12/05/2023 5:03 AM EST 4.5 g 27. 5 mL/hr Piperacillin-Tazobactam (Zosyn) 4.5 g in 100 mL NSS ivpb (HALF hour infusion) IV Piggyback, 4.5 g, ONCE, 1 dose, On Sat12/04/23 at 2044, Administer over 30 Minutes New Bag 12/04/2023 8:44 PM EST 4.5 g 220 mL/hr potassium and sodium phosphate (Phos-Nak) oral powder 2 Packet 2 Packet, Oral, TID 06;12;18, First dose on Sat12/06/23 at 1000, Last dose on Sat12/07/23 at 0600, For 3 doses, Mix 1 packet in 2.5 ounces (75 mL) of water, stir well and administer promptly. 1 packet contains Phosphorus 250 mg (~8 mMoles) + potassium 280 mg (~7.125 mEq) + sodium 160mg (~7.125 mEq) Given 12/07/2023 6:23 AM EST 2 Packets Given 12/06/2023 6:16 PM EST 2 Packets Given 12/06/2023 10:09 AM EST 2 Packets potassium and sodium phosphate (Phos-Nak) oral powder 2 Packet 2 Packet, Oral, BID (.AM/PM), First dose on Sat12/09/23 at 1100, Last dose on Sat12/09/23 at 2100, For 2 doses, Mix 1 packet in 2.5 ounces (75 mL) of water, stir well and administer promptly. 1 packet contains Phosphorus 250 mg (~8 mMoles) + potassium 280 mg (~7.125 mEq) + sodium 160mg (~7.125 mEq) Given 12/09/2023 9:06 PM EST 2 Packets Given 12/09/2023 12:28 PM EST 2 Packets potassium chloride ER tab 10 mEq 10 mEq, Oral, ONCE, On Sat12/06/23 at 1000, For 1 dose, This med should NOT be Crushed or Chewed Given 12/06/2023 10:09 AM EST 10 mEq potassium chloride ER tab 20 mEq 20 mEq, Oral, ONCE, On Sat12/04/23 at 2000, For 1 dose, This med should NOT be Crushed or Chewed Given 12/04/2023 8:07 PM EST 20 mEq potassium chloride ER tab 40 mEq 40 mEq, Oral, ONCE, On Sat12/05/23 at 0800, For 1 dose, This med should NOT be Crushed or Chewed Given 12/05/2023 10:13 AM EST 40 mEq potassium chloride ER tab 40 mEq 40 mEq, Oral, ONCE, On Sat12/09/23 at 1100, For 1 dose, This med should NOT be Crushed or Chewed Given 12/09/2023 12:28 PM EST 40 mEq sodium chloride 0.9 % flush/inj 3 mL 3 mL, IV Push, PRN Other, Line Patency, Starting on Sat12/04/23 at 2019, Until Sat12/12/23 at 1641, Do not flush if lock, PICC, or central line not in place, IV infusing or unable to flush topiramate (topAMAX) tab 50 mg 50 mg, Oral, QHS, First dose on Sat12/04/23 at 2245, Until Discontinued Given 12/11/2023 8:58 PM EST 50 mg Given 12/10/2023 9:30 PM EST 50 mg Given 12/09/2023 9:06 PM EST 50 mg vancomycin (Vancocin) 1,500 mg in NSS 250 mL ivpb 1,500 mg, IV Piggyback, [id number], First dose on Sat12/05/23 at 0900, Until Discontinued New Bag 12/05/2023 9:00 AM EST 1,500 mg 183.33 mL/hr vancomycin (Vancocin) 2,500 mg in NSS 500 mL ivpb 2,500 mg, IV Piggyback, ONCE, 1 dose, On Sat12/04/23 at 2045 New Bag 12/04/2023 9:23 PM EST 2,500 mg 220 mL/hr documented in this encounter Active and Recently Administered Medications Times are shown in EST. Scheduled Medication Order 12/10/2023 12/11/2023 12/12/2023 amLODIPine (Norvasc) tab 2.5 mg 2.5 mg, Oral, Daily(AM), First dose on Sat12/05/23 at 0900, Until Discontinued 1009 (Given - Provider: Kellee Velazquez RN) 1318 (Given - Provider: Jessica Schwarz LPN) 0806 (Given - Provider: Jessica Schwarz LPN) atorvaSTATin (Lipitor) tab 40 mg 40 mg, Oral, Daily(AM), First dose on Sat12/05/23 at 0900, Until Discontinued 1009 (Given - Provider: Kellee Velazquez RN) 1318 (Given - Provider: Jessica Schwarz LPN) 0806 (Given - Provider: Jessica Schwarz LPN) cefTRIAXone in dextrose (Rocephin) IVPB 2 g (COMPLETED) IV Piggyback, 2 g, Q24H, 5 doses, First dose on Sat12/06/23 at 1200, Last dose on Sat12/10/23 at 1200, Administer over 30 Minutes 1359 (New Bag - Provider: Kellee Velazquez RN) Enoxaparin (Lovenox) inj 80 mg (CANCELED) 80 mg, Subcutaneous, Q12H, First dose on Sat12/04/23 at 2245, Until Discontinued, If patient is on warfarin, inform provider if daily INR value is 2 or greater! 1009 (Given - Provider: Kellee Velazquez RN)1316 (Held by provider - Provider: Viet Mccartney MD - Reason: Awaiting Procedure)2100 (Automatically Held - Provider: Viet Mccartney MD) 0900 (Automatically Held - Provider: Viet Mccartney MD)1656 (Hold Dose Removed - Provider: Ahsan Duran MD) 0300 (Hold Dose Removed - Provider: Viet Mccartney MD - Reason: Awaiting Procedure) Enoxaparin (Lovenox) inj 80 mg 80 mg, Subcutaneous, Q12H, First dose (after last modification) on Sat12/11/23 at 2100, Until Discontinued, If patient is on warfarin, inform provider if daily INR value is 2 or greater! 2057 (Given - Provider: Karla Garcia RN) 0806 (Given - Provider: Jessica Schwarz LPN) folic acid tab 1 mg 1 mg, Oral, Daily(AM), First dose on Sat12/05/23 at 0900, Until Discontinued 1009 (Given - Provider: Kellee Velazquez RN) 1318 (Given - Provider: Jessica Schwarz LPN) 0806 (Given - Provider: Jessica Schwarz LPN) omeprazole (PriLOSEC) cap 40 mg 40 mg, Oral, Daily(AM), First dose on Sat12/10/23 at 0930, Until Discontinued, This med should NOT be Crushed or Chewed 1015 (Given - Provider: Kellee Velazquez RN) 1318 (Given - Provider: Jessica Schwarz LPN) 0806 (Given - Provider: Jessica Schwarz LPN) oxygen GAS Inhalation, OXYGEN, First dose on Sat12/09/23 at 1100, Until Discontinued, Device/Managed by: Low Flow Device, [...] less than 85% and when escalating delivery device., Wean patient off Oxygen when the oxygen saturation is greater than or equal to 93% 0000 (Oxygen On - Provider: Ledy Rios RN)0800 (Oxygen Off - Provider: Shelby Sharp RN)1600 (Oxygen On - Provider: Kellee Velazquez RN) 0000 (Oxygen On - Provider: Ledy Rios RN)1326 (Oxygen On - Provider: Jessica Schwarz LPN)1600 (Oxygen On - Provider: Jessica Schwarz LPN) 0000 (Oxygen On - Provider: Karla Garcia RN)0800 (Oxygen On - Provider: Jessica Schwarz LPN) topiramate (topAMAX) tab 50 mg 50 mg, Oral, QHS, First dose on Sat12/04/23 at 2245, Until Discontinued 2129 (Given - Provider: Bridgett Aponte RN) 2057 (Given - Provider: Karla Garcia RN) Continuous Medication Order 12/10/2023 12/11/2023 12/12/2023 isolyte-S pH 7.4 infusion () Intravenous, at 25 mL/hr, Plasma-LYTE 148, isolyte-S, and isolyte-S pH 7.4 are considered equivalent - including for MAR barcode scanning., CONTINUOUS, Starting on Sat12/11/23 at 0915, Until Sat12/11/23 at 1214, Pre-Op 1117 (New Bag - Provider: Tammi Taylor CRNA)1132 (Anes Intra-Op Fluid - Provider: Tammi Taylor CRNA)1140 (Anes Intra-Op Fluid - Provider: Tammi Taylor CRNA) PRN Medication Order 12/10/2023 12/11/2023 12/12/2023 Acetaminophen (Tylenol) tab 975 mg 975 mg, Oral, Q6H PRN Pain, Mild, Pain, Moderate, Fever >38C(100.5F), Pain, Severe, Starting on Ofe 12/05/23 at 0222, Until Ofe 12/12/23 at 1641, Maximum of 4 grams (4000 mg) per day. 0846 (Given - Provider: Shelby Sharp RN)2242 (Given - Provider: Ledy Rios RN) 1219 (Given - Provider: Amparo Vizcaino RN) Albuterol Sulfate (Proventil) (2.5 MG/3ML) 0.083% inhalation solution 2.5 mg 2.5 mg, Nebulizer, Q4H PRN Dyspnea, Starting on Sat12/04/23 at 2200, Until Ofe 12/12/23 at 1641 hydrOXYzine HCl tab 25 mg 25 mg, Oral, TID PRN Anxiety, Agitation, Starting on Sat12/08/23 at 0749, Until Ofe 12/12/23 at 1641 ondansetron (Zofran) inj 4 mg 4 mg, IV Push, Q6H PRN Nausea, Vomiting, Starting on Sat12/06/23 at 0711, Until Ofe 12/12/23 at 1641 0758 (Given - Provider: Kellee Velazquez RN) sodium chloride 0.9 % flush/inj 3 mL 3 mL, IV Push, PRN Other, Line Patency, Starting on Sat12/04/23 at 2019, Until Ofe 12/12/23 at 1641, Do not flush if lock, PICC, or central line not in place, IV infusing or unable to flush documented in this encounter Additional Health Concerns Infection Onset Date Last Indicated Resolved Time COVID-19 (confirmed) 03/19/2022 03/19/2022 9:31 PM EST Respiratory Rule-Out 12/04/2023 12/04/2023 024 8:30 PM EST COVID-19 Rule-Out 12/04/2023 12/04/2023 12/04/2023 8:30 PM EST documented as of this encounter [...] the patient have Health Care Power of Mirror Machine Feeder? No Full Code 05/23/2021 12:21 PM 05/24/2021 9:38 PM This order reflects the patients wishes and were consensually agreed upon. 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
--- OUTSIDE RECORDS SUMMARY | 2024-04-11 14:52 | External Medical Summary ---
Author Name Unknown Address Unknown Organization [id number]:LABORATORY [facility] [place] - [address] [facility] [place] [address] Laboratory Report Ordering Provider Test Date Status POOJA LAWLER 12/04/2023 18:34:10 Final ADMITTED patient Observation Date Value Abnormality Reference (Units ) Status Adenovirus DNA [Presence] in Nasopharynx by ANDRIA with non-probe detection 12/04/2023 18:34:10 Negative Negative Final Human coronavirus 229E RNA [Presence] in Nasopharynx by ANDRIA with non-probe detection 12/04/2023 18:34:10 Negative Negative Final Human coronavirus HKU1 RNA [Presence] in Nasopharynx by ANDRIA with non-probe detection 12/04/2023 18:34:10 Negative Negative Final Human coronavirus NL63 RNA [Presence] in Nasopharynx by ANDRIA with non-probe detection 12/04/2023 18:34:10 Negative Negative Final Human coronavirus OC43 RNA [Presence] in Nasopharynx by ANDRIA with non-probe detection 12/04/2023 18:34:10 Negative Negative Final SARS-CoV-2 (COVID-19) RNA [Presence] in Nasopharynx by ANDRIA with non-probe detection 12/04/2023 18:34:10 Negative Negative Final Human metapneumovirus RNA [Presence] in Nasopharynx by ANDRIA with non-probe detection 12/04/2023 18:34:10 Negative Negative Final Rhinovirus+Enterovirus RNA [Presence] in Nasopharynx by ANDRIA with non-probe detection 12/04/2023 18:34:10 Negative Negative Final Influenza virus A RNA [Presence] in Nasopharynx by ANDRIA with non-probe detection 12/04/2023 18:34:10 Negative Negative Final Influenza virus B RNA [Presence] in Nasopharynx by ANDRIA with non-probe detection 12/04/2023 18:34:10 Negative Negative Final Parainfluenza virus 1 RNA [Presence] in Nasopharynx by ANDRIA with non-probe detection 12/04/2023 18:34:10 Negative Negative Final Parainfluenza virus 2 RNA [Presence] in Nasopharynx by ANDRIA with non-probe detection 12/04/2023 18:34:10 Negative Negative Final Parainfluenza virus 3 RNA [Presence] in Nasopharynx by ANDRIA with non-probe detection 12/04/2023 18:34:10 Negative Negative Final Parainfluenza virus 4 RNA [Presence] in Nasopharynx by ANDRIA with non-probe detection 12/04/2023 18:34:10 Negative Negative Final Respiratory syncytial virus RNA [Presence] in Nasopharynx by ANDRIA with non-probe detection 12/04/2023 18:34:10 Negative Negative Final Bordetella pertussis.pertussis toxin promoter region [Presence] in Nasopharynx by ANDRIA with non-probe detection 12/04/2023 18:34:10 Negative Negative Final Chlamydophila pneumoniae DNA [Presence] in Nasopharynx by ANDRIA with non-probe detection 12/04/2023 18:34:10 Negative Negative Final Mycoplasma pneumoniae DNA [Presence] in Nasopharynx by ANDRIA with non-probe detection 12/04/2023 18:34:10 Negative Negative Final Bordetella parapertussis [id number] DNA [Presence] in Nasopharynx by ANDRIA with non-probe detection 12/04/2023 18:34:10 Negative Negative Final
The primers that detect Rhinovirus may cross react with some Enterorviruses. The validation of bronchial specimens, tracheal aspirates, and throats for this assay was developed and performance characteristics determined by [employer]. The validation of alternate specimen types has not been cleared or approved by the U.S. Food and Drug Administration (FDA). It has been determined that such clearance or approval is not necessary. Performing Location LABORATORY [place] [address] [facility] [place] [facility] [address]
--- OUTSIDE RECORDS SUMMARY | 2024-04-11 14:52 | External Medical Summary ---
Author Name Unknown Address Unknown Organization K01:LABORATORY [facility] - [address] [facility] [facility] [address] [place] [address] Laboratory Report Ordering Provider Test Date Status RENETTA BASURTO 12/05/2023 05:27:00 Final Observation Date Value Abnormality Reference (Units ) Status Magnesium 12/05/2023 05:27:00 2.2 1.5-2.6 (m g/dL) Final Performing Location LAB[facility]ATORY [facility] - [address] [place] [address]
--- OUTSIDE RECORDS SUMMARY | 2024-04-11 14:52 | External Medical Summary ---
Author Name Unknown Address Unknown Organization K01:LABORATORY [facility] [place] - [address] [place] [address] Laboratory Report Ordering Provider Test Date Status KAMLESH HANSON 12/06/2023 08:04:00 Final Observation Date Value Abnormality Reference (Units ) Status Cortisol 12/06/2023 08:04:00 11.2 2.5-19.5 ( ug/dL) Final AM Reference Range: 4.8 - 19 .5 ug/dL
PM Reference Range: 2.5 - 11.9 ug/dL Performing Location LABORATORY C - [address] [place] [address]
--- OUTSIDE RECORDS SUMMARY | 2024-04-11 14:52 | External Medical Summary ---
Author Name Unknown Address Unknown Organization K01:LABORATORY C - [address] [place] [address] Laboratory Report Ordering Provider Test Date Status RENETTA BASURTO 12/07/2023 07:44:00 Final Observation Date Value Abnormality Reference (Units ) Status Magnesium 12/07/2023 07:44:00 2.3 1.5-2.6 (m g/dL) Final Performing Location [facility] - [address] [place] [address]
--- OUTSIDE RECORDS SUMMARY | 2024-04-11 14:52 | External Medical Summary ---
Author Name Unknown Address Unknown Organization [id number]:[place]ORY [facility] [place] [address] [address] Laboratory Report Ordering Provider Test Date Status POOJA LAWLER 12/04/2023 20:12:57 Final Observation Date Value Abnormality Reference (Units ) Status Color of Urine by Auto 12/04/2023 20:12:57 Colorless Colorless, Light Yellow, Yellow, Dark Yellow Final Clarity, Urine 12/04/2023 20:12:57 Clear Clear Final Glucose [Mass/volume] in Urine by Automated test strip 12/04/2023 20:12:57 Negative Negative (mg/dL) Final Bilirubin.total [Presence] in Urine by Automated test strip 12/04/2023 20:12:57 Negative Negative Final Ketones [Mass/volume] in Urine by Automated test strip 12/04/2023 20:12:57 Negative Negative (mg/dL) Final Specific gravity, Urine 12/04/2023 20:12:57 1.010 1.003-1.030 Final Hemoglobin [Presence] in Urine by Automated test strip 12/04/2023 20:12:57 Negative Negative Final pH, Urine 12/04/2023 20:12:57 6.0 5.0-7.5 (Units) Final Protein [Mass/volume] in Urine by Automated test strip 12/04/2023 20:12:57 Negative Negative (mg/dL) Final Urobilinogen [Mass/volume] in Urine by Automated test strip 12/04/2023 20:12:57 Normal Normal (mg/dL) Final Nitrite [Presence] in Urine by Automated test strip 12/04/2023 20:12:57 Negative Negative Final Leukocyte esterase [Presence] in Urine by Automated test strip 12/04/2023 20:12:57 Negative Negative Final RBC, Urine 12/04/2023 20:12:57 0-2 0-2 (/HPF) Final WBC, Urine 12/04/2023 20:12:57 3-5 Abnormal 0-2 (/HPF) Final Bacteria [#/area] in Urine sediment by Microscopy high power field 12/04/2023 20:12:57 0-25 0-25 (/HPF) Final Transitional cells [#/area] in Urine sediment by Microscopy high power field 12/04/2023 20:12:57 1-4 Abnormal None (/HPF) Final CULTURE, URINE - [facility] 12/04/2023 20:12:57 Final Culture not indicated by uri nalysis results\X09\ Performing Location [facility]ORY [facility] [place] [address] [facility] [address]
--- OUTSIDE RECORDS SUMMARY | 2024-04-11 14:52 | External Medical Summary ---
Author Name Unknown Address Unknown Organization [id number]:LABORATORY [facility] [place] - [address] [place] [address] Laboratory Report Ordering Provider Test Date Status RENETTA BASURTO 12/07/2023 07:44:00 Final Observation Date Value Abnormality Reference (Units ) Status WBC, Total 12/07/2023 07:44:00 5.82 4.00-10.80 (K/uL) Final RBC 12/07/2023 07:44:00 3.84 4.50-5.25 (M/uL) Final Hemoglobin 12/07/2023 07:44:00 12.1 Below low normal 14.0-16.8 (g/dL) Final HCT 12/07/2023 07:44:00 36.9 Below low normal 40.0-48.4 (%) Final MCV 12/07/2023 07:44:00 96.1 82.0-99.5 (fL) Final MCH 12/07/2023 07:44:00 31.5 27.0-34.0 (pg) Final MCHC 12/07/2023 07:44:00 32.8 32.0-36.0 (g/dL) Final RDW 12/07/2023 07:44:00 16.6 11.5-15.5 (%) Final Platelets 12/07/2023 07:44:00 353 140-400 (K/uL) Final MPV 12/07/2023 07:44:00 9.4 6.6-11.1 (fL) Final Nucleated erythrocytes/100 leukocytes [Ratio] in Blood by Automated count 12/07/2023 07:44:00 0 <=0 (/100 WBCs) Final Performing Location LABORATORY [facility] [place] - [address] [place] [address]
--- OUTSIDE RECORDS SUMMARY | 2024-04-11 14:52 | External Medical Summary ---
Author Name Unknown Address Unknown Organization K01:[place] [facility] [place] [facility] [address] [place] [address] Laboratory Report Ordering Provider Test Date Status RENETTA BASURTO 12/09/2023 09:10:00 Final Observation Date Value Abnormality Reference (Units ) Status WBC, Total 12/09/2023 09:10:00 6.59 4.00-10.80 (K/uL) Final RBC 12/09/2023 09:10:00 3.91 4.50-5.25 (M/uL) Final Hemoglobin 12/09/2023 09:10:00 12.5 Below low normal 14.0-16.8 (g/dL) Final HCT 12/09/2023 09:10:00 37.5 Below low normal 40.0-48.4 (%) Final MCV 12/09/2023 09:10:00 95.9 82.0-99.5 (fL) Final MCH 12/09/2023 09:10:00 32.0 27.0-34.0 (pg) Final MCHC 12/09/2023 09:10:00 33.3 32.0-36.0 (g/dL) Final RDW 12/09/2023 09:10:00 16.4 11.5-15.5 (%) Final Platelets 12/09/2023 09:10:00 451 Above high normal 140-400 (K/uL) Final MPV 12/09/2023 09:10:00 9.4 6.6-11.1 (fL) Final Nucleated erythrocytes/100 leukocytes [Ratio] in Blood by Automated count 12/09/2023 09:10:00 0 <=0 (/100 WBCs) Final Performing Location [place] [facility] [address] [place] [address]
--- OUTSIDE RECORDS SUMMARY | 2024-04-11 14:52 | External Medical Summary ---
Author Name Unknown Address Unknown Organization K01:[place] [facility] [place] [address] [place] [address] Laboratory Report Ordering Provider Test Date Status LUIS MITCHELL 12/05/2023 20:44:53 Final Observation Date Value Abnormality Reference (Units ) Status Methicillin resistant Staphylococcus aureus (MRSA) DNA [Presence] in Nose by ANDRIA with probe detection 12/05/2023 20:44:53 Negative Negative Final No Methicillin resistant Sta phylococcus aureus detected by PCR (amplified probe). Performing Location [place] [facility] [place] [address] [place] [address]
--- OUTSIDE RECORDS SUMMARY | 2024-04-11 14:52 | External Medical Summary ---
Author Name Unknown Address Unknown Organization : Laboratory Report Ordering Provider Test Date Status RENETTA BASURTO 12/04/2023 20:12:57 Final Observation Date Value Abnormality Reference (Units ) Status Streptococcus pneumoniae Ag [Presence] in Urine 12/04/2023 20:12:57 Not Detected Not Detected Final
Test Performed at:
[facility]
[address] [place] [address]
Gonsalo Silva M.D., Ph.D.,Director of Laboratories Performing Location
--- OUTSIDE RECORDS SUMMARY | 2024-04-11 14:52 | External Medical Summary ---
Author Name Unknown Address Unknown Organization K01:LABORATORY C - [address] [place] [address] Laboratory Report Ordering Provider Test Date Status RENETTA BASURTO 12/08/2023 07:55:00 Final Observation Date Value Abnormality Reference (Units ) Status Magnesium 12/08/2023 07:55:00 2.6 1.5-2.6 (m g/dL) Final Performing Location [facility] - [address] [place] [address]
--- OUTSIDE RECORDS SUMMARY | 2024-04-11 14:52 | External Medical Summary ---
Author Name Unknown Address Unknown Organization K01:LABORATORY [facility] - [address] [place] [address] Laboratory Report Ordering Provider Test Date Status RENETTA BASURTO 12/08/2023 07:55:00 Final Observation Date Value Abnormality Reference (Units ) Status Phosphate 12/08/2023 07:55:00 2.6 2.5-4.8 (m g/dL) Final Performing Location [facility] - [address] [place] [address]
--- OUTSIDE RECORDS SUMMARY | 2024-04-11 14:52 | External Medical Summary ---
Author Name Unknown Address Unknown Organization K01:[place] [facility] [place] [address] [place] [address] Laboratory Report Ordering Provider Test Date Status RENETTA BASURTO 12/08/2023 07:55:00 Final Observation Date Value Abnormality Reference (Units ) Status BUN 12/08/2023 07:55:00 8 6-20 (mg/dL) Final Creatinine 12/08/2023 07:55:00 1.0 0.6-1.2 (mg/dL) Final Glomerular filtration rate/1.73 sq M.predicted [Volume Rate/Area] in Serum, Plasma or Blood by Creatinine-based formula (CKD-EPI) 12/08/2023 07:55:00 88 >=60 (mL/min) Final eGFR is calculated based on the CKD-EPI 2020 equation SODIUM 12/08/2023 07:55:00 139 135-146 (m mol/L) Final Potassium 12/08/2023 07:55:00 3.6 3.5-5.1 (m mol/L) Final Cl 12/08/2023 07:55:00 103 98-107 (mm ol/L) Final CO2 12/08/2023 07:55:00 25 22-32 (mmo l/L) Final Anion gap 12/08/2023 07:55:00 11 7-15 (mmol /L) Final Glucose 12/08/2023 07:55:00 132 Above high normal 70 -120 (mg/dL) Final Calcium 12/08/2023 07:55:00 8.6 8.4-10.2 ( mg/dL) Final Performing Location [place] [facility] [place] [address] [place] [address]
--- OUTSIDE RECORDS SUMMARY | 2024-04-11 14:52 | External Medical Summary ---
Author Name Unknown Address Unknown Organization K01:LABORATORY [facility] - [address] [place] [address] Laboratory Report Ordering Provider Test Date Status RENETTA BASURTO 12/07/2023 07:44:00 Final Observation Date Value Abnormality Reference (Units ) Status Phosphate 12/07/2023 07:44:00 2.9 2.5-4.8 (m g/dL) Final Performing Location [facility] - [address] [place] [address]
--- OUTSIDE RECORDS SUMMARY | 2024-04-11 14:52 | External Medical Summary ---
Author Name Unknown Address Unknown Organization K01:[place] [facility] [facility] [address] [place] [address] Laboratory Report Ordering Provider Test Date Status RENETTA BASURTO 12/09/2023 09:10:00 Final Observation Date Value Abnormality Reference (Units ) Status BUN 12/09/2023 09:10:00 10 6-20 (mg/dL) Final Creatinine 12/09/2023 09:10:00 0.9 0.6-1.2 (mg/dL) Final Glomerular filtration rate/1.73 sq M.predicted [Volume Rate/Area] in Serum, Plasma or Blood by Creatinine-based formula (CKD-EPI) 12/09/2023 09:10:00 >90 >=60 (mL/min) Final eGFR is calculated based on the CKD-EPI 2020 equation SODIUM 12/09/2023 09:10:00 138 135-146 (m mol/L) Final Potassium 12/09/2023 09:10:00 3.2 Below low normal 3.5 -5.1 (mmol/L) Final Cl 12/09/2023 09:10:00 102 98-107 (mm ol/L) Final CO2 12/09/2023 09:10:00 24 22-32 (mmo l/L) Final Anion gap 12/09/2023 09:10:00 12 7-15 (mmol /L) Final Glucose 12/09/2023 09:10:00 149 Above high normal 70 -120 (mg/dL) Final Calcium 12/09/2023 09:10:00 8.5 8.4-10.2 ( mg/dL) Final Performing Location [place] [facility] [place] [address] [place] [address]
--- OUTSIDE RECORDS SUMMARY | 2024-04-11 14:52 | External Medical Summary ---
Author Name Unknown Address Unknown Organization K01:[place] [facility] [place] [address] [place] [address] Laboratory Report Ordering Provider Test Date Status RENETTA BASURTO 12/10/2023 08:12:00 Final Observation Date Value Abnormality Reference (Units ) Status BUN 12/10/2023 08:12:00 10 6-20 (mg/dL) Final Creatinine 12/10/2023 08:12:00 0.9 0.6-1.2 (mg/dL) Final Glomerular filtration rate/1.73 sq M.predicted [Volume Rate/Area] in Serum, Plasma or Blood by Creatinine-based formula (CKD-EPI) 12/10/2023 08:12:00 >90 >=60 (mL/min) Final eGFR is calculated based on the CKD-EPI 2020 equation SODIUM 12/10/2023 08:12:00 139 135-146 (m mol/L) Final Potassium 12/10/2023 08:12:00 3.5 3.5-5.1 (m mol/L) Final Cl 12/10/2023 08:12:00 104 98-107 (mm ol/L) Final CO2 12/10/2023 08:12:00 23 22-32 (mmo l/L) Final Anion gap 12/10/2023 08:12:00 12 7-15 (mmol /L) Final Glucose 12/10/2023 08:12:00 127 Above high normal 70 -120 (mg/dL) Final Calcium 12/10/2023 08:12:00 8.7 8.4-10.2 ( mg/dL) Final Performing Location [place] [facility] [place] [address] [place] [address]
--- OUTSIDE RECORDS SUMMARY | 2024-04-11 14:52 | External Medical Summary ---
Author Name Unknown Address Unknown Organization K01:LAB[place]ORY [facility] [place] - [address] [place] [address] Laboratory Report Ordering Provider Test Date Status RENETTA BASURTO 12/05/2023 05:27:00 Final Observation Date Value Abnormality Reference (Units ) Status BUN 12/05/2023 05:27:00 10 6-20 (mg/dL) Final Creatinine 12/05/2023 05:27:00 0.9 0.6-1.2 (mg/dL) Final Glomerular filtration rate/1.73 sq M.predicted [Volume Rate/Area] in Serum, Plasma or Blood by Creatinine-based formula (CKD-EPI) 12/05/2023 05:27:00 >90 >=60 (mL/min) Final eGFR is calculated based on the CKD-EPI 2020 equation SODIUM 12/05/2023 05:27:00 140 135-146 (m mol/L) Final Potassium 12/05/2023 05:27:00 3.1 Below low normal 3.5 -5.1 (mmol/L) Final Cl 12/05/2023 05:27:00 106 98-107 (mm ol/L) Final CO2 12/05/2023 05:27:00 23 22-32 (mmo l/L) Final Anion gap 12/05/2023 05:27:00 11 7-15 (mmol /L) Final Glucose 12/05/2023 05:27:00 125 Above high normal 70 -120 (mg/dL) Final Calcium 12/05/2023 05:27:00 8.1 Below low normal 8.4 -10.2 (mg/dL) Final Performing Location LAB[place]ORY [facility] [place] [address] [place] [address]
--- OUTSIDE RECORDS SUMMARY | 2024-04-11 14:52 | External Medical Summary ---
Author Name Unknown Address Unknown Organization K01:LABORATORY [place] [address] [place] [address] Laboratory Report Ordering Provider Test Date Status RENETTA BASURTO 12/08/2023 07:55:00 Final Observation Date Value Abnormality Reference (Units ) Status WBC, Total 12/08/2023 07:55:00 6.52 4.00-10.80 (K/uL) Final RBC 12/08/2023 07:55:00 3.99 4.50-5.25 (M/uL) Final Hemoglobin 12/08/2023 07:55:00 12.6 Below low normal 14.0-16.8 (g/dL) Final HCT 12/08/2023 07:55:00 38.0 Below low normal 40.0-48.4 (%) Final MCV 12/08/2023 07:55:00 95.2 82.0-99.5 (fL) Final MCH 12/08/2023 07:55:00 31.6 27.0-34.0 (pg) Final MCHC 12/08/2023 07:55:00 33.2 32.0-36.0 (g/dL) Final RDW 12/08/2023 07:55:00 16.6 11.5-15.5 (%) Final Platelets 12/08/2023 07:55:00 419 Above high normal 140-400 (K/uL) Final MPV 12/08/2023 07:55:00 9.0 6.6-11.1 (fL) Final Nucleated erythrocytes/100 leukocytes [Ratio] in Blood by Automated count 12/08/2023 07:55:00 0 <=0 (/100 WBCs) Final Performing Location LABORATORY [facility] [place] [address] [place] [address]
--- OUTSIDE RECORDS SUMMARY | 2024-04-11 14:52 | External Medical Summary | Summary of Care ---
Author Name Unknown Organization [facility] Address [address] [place] [address] Phone [phone] Care Team Providers Care Carton Forming Machine Adjuster Name Role Phone Matthew Herrmann PA-C Primary Care Provider [phone] Reason for Visit * Reason Onset Date Comments Advice 12/04/2023 Ramdin-Fever Encounter Details Date Type Department Care Team (Late st Contact Info) Description 12/04/2023 Telephone Hematology Oncology [facility] [address] [place] [address] Kerri Foote MD [address] [place] [address] Advice (Ramdin-Fever) Allergies Active Allergy Reactions Criticality Noted Date Comments Carboplatin High 11/14/2021 Dyspnea, chest pain, hypoxia, sore throat, edema throat, flushing, mild hypotension Isosorbide Nitrate Other (Please comment) 07/22/2023 Headache documented as of this encounter (statuses as of 12/04/2023) Medications Medication Sig Dispensed Refills Start Date End Date Status Vitamin E 1000 UNIT Oral Capsule Take 1 Capsule by mouth in the morning. 0 Active Ondansetron HCl 8 MG Oral TabletIndications:Cyndy motherapy induced nausea and vomiting Take 1 Tablet [...] Active Atorvastatin Calcium 40 MG Oral Tablet (Lipitor)Indications: Acute CVA (cerebrovascular accident) (HCC) Take 1 Tablet by mouth daily. 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 90 Tablet 3 09/03/2023 Active Topiramate 25 MG Oral Tablet (Topamax) Take 1 tablet nightly x 2 weeks then increase to 2 tablets nightly. 60 Tablet 5 09/10/2023 Active Prochlorperazine Maleate 10 MG Oral Tablet (Compazine)Indication s:Chemotherapy induced nausea and vomiting Take 1 Tablet by mouth every 6 hours as needed for Nausea. 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 18 g 0 10/29/2023 Active Furosemide 20 MG Oral Tablet (Lasix)Indications:Ge neralized edema due to fluid overload Take 1 Tablet by mouth in the morning. 30 Tablet 0 11/21/2023 Active Amoxicillin-Pot Clavulanate 875-125 MG Oral Tablet (Augmentin) Take 1 Tablet by mouth in the morning and 1 Tablet before bedtime. Do all this for 5 days. 10 Tablet 0 12/02/2023 12/07/2023 Active Doxycycline Hyclate 100 MG Oral Capsule Take 1 Capsule by mouth in the morning and 1 Capsule before bedtime. Do all this for 5 days. 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) 10/03/2023 Malignant neoplasm of lower lobe, left bronchus or lung 06/13/2023 Immunodeficiency 03/12/2023 Chemotherapy adverse reaction, initial encounter 11/14/2021 Prediabetes 09/22/2021 Multiple subsegmental pulmon andrei emboli without acute cor pulmonale 05/23/2021 Shortness of breath 05/23/2021 Encounter for antineoplastic chemotherapy 2020 Non-small [...] as of this encounter (statuses as of 12/04/2023) Resolved Problems Problem Noted Date Diagnosed Date Resolved Date MSSA bacteremia 08/01/2021 08/07/2021 Sepsis 08/01/2021 08/07/2021 COPD, group B, by GOLD 2017 classification 05/08/2021 06/21/2021 Overview: Per COPD GOLD Classification Obstructive lung disease 04/10/2021 Overview: Per COPD GOLD Classification documented as of this encounter (statuses as of 12/04/2023) Immunizations Name Administration Dates Next Due COVID-19 mRNA, LNP-s, No Pre serve, 2-Dose Series (Digly) 09/23/2021 documented as of this encounter Social [...] encounter Miscellaneous Notes * Telephone Encounter - Lubna Kemp RN - 12/04/2023 4:11 PM EST Called, spoke with , reviewed Dr. Foote's recommendation to take to ER as concerned about possible pneumonitis and/or infection. She repeated info and said will take to [facility] [place]. I let her know we will call report to ER. She expressed thanks and understanding. Report called to Bernardo charge nurse in ER. * Telephone Encounter - Lubna Kemp RN - 12/04/2023 3:[address] Foote Dx NSCLC with bone mets 11/21 C1C3 Taxol/Pembrolizumab 12/12 has f/u apt Called, spoke with who reports: Started with SOB over weekend with low grade fever which came and went. Saturday night could not catch breath, breathing heavy, called education associate oncologist, was seen in ER Sat. Had echo, CT scan and xray. No clot, dx pneumonia, given antibiotics (amoxicillin and doxycycline) taking BID since Sat. Reports still running fever, yesterday 101 all day. Today temp 100.5, feels cold, no shaking chills, headache which has had since Sat. Taking tylenol every 6 hrs. not sure what to do since not making progress. Urgent care or ER ? 12/02 blood culture prelim no growth to date. * Telephone Encounter - Gabbi Abreu OSA - 12/04/2023 3:16 PM EST What is the reason for call? Pts Rose Mary called stating that pt is on day 3 of a fever (100.5),pt taking OTC Tylenol Q 6hrs. Pt was seen in the ED on 12.02.23 and treated with antibiotics for pneumonia however pt is still running temp and complaining of headache What Clinic is the patient trying to reach? [facility] - see Audrey- click on the [facility] Caller: other: Rose Mary Hawkins Phone #: [phone] Call routed as High Priority to Nurse stanford per Ms. Sinha[place]delmar [phone] documented in this encounter Plan of Treatment Upcoming Encounters Date Type Department Care Team (Late st Contact Info) Description 12/05/2023 6:15 AM EST Anticoagulation Pharmacy Call Center [address] [place] [address] [facility], [facility] [place] [address] [place] [address] 12/05/2023 11:00 AM EST Office Visit [address] [phone] Matthew Herrmann PA-C [address] [place] [phone] 12/12/2023 8:45 AM EST Nurse Only Hematology Oncology [facility], [address] [address] [place], Nurse Lab Hem/Onc [address] [place] [phone] 12/12/2023 9:30 AM EST Office Visit Hematology Oncology [facility], [place] [address] [place] [address] Kerri Foote MD [address], [place] [phone] 12/12/2023 10:30 AM EST Hem/Onc Treatment Hematology Oncology [facility], [address] [phone] [place], Chair 4 Hem/Onc [address] [place] [id number] 05/06/2024 9:20 AM EDT Office Visit [facility] [place] [address] [facility] [place] [address] Kathy Pryor PA-C [address] [place] [address] Health Maintenance Due Date Last Done Comments [...] this encounter Medical Devices Implanted Type Area Database Reporting Consultant Device Identifier Shelf Expiration Date Model / Serial / Lot Power Port 8fr Sngl Lumen Plas - [id number] Implanted:Qty: 1 on 04/24/2021 at [facility] : PERIPHERAL VASCULAR [id number] 02/24/2022 [id number] / / [id number] Port Implant W/8f Poly Cath - [id number] Implanted:Qty: 1 on 10/15/2023 at [facility] [employer]ARD : PERIPHERAL VASCULAR [id number] 03/27/2025 [id number] / / [id number] documented as of this encounter Additional Health Concerns Infection Onset Date Last Indicated Resolved Time COVID-19 (confirmed) 03/19/2022 03/19/2022 documented as of this encounter Advance Directives [...] the patient have Health Care Power of Valve Grinder? No Code Status History Code Status Date Activated Date Inactivated Comments Full Code 05/23/2021 12:21 PM 05/24/2021 9:38 PM This order reflects the patients wishes and were consensually agreed upon. Question Answer Comments Discussion of Advance Directives occurred with: Patient Healthcare Agents on File Name Relationship Healthcare Agent Relationssd p Communication Rose Mary Brothers Spouse Health Care Agent [phone] (Mobile) Care Teams Carton Forming Machine Adjuster Relationship Specialty Start Date End Date Matthew Herrmann PA-C [address] [place], [place] [address] [place] [address] PCP - General Physician Bow Machine Operator 03/22/21 documented as of this encounter
--- OUTSIDE RECORDS SUMMARY | 2024-04-11 14:52 | External Medical Summary ---
Author Name Unknown Address Unknown Organization K01:LABORATORY C - [address] [place] [address] Laboratory Report Ordering Provider Test Date Status RENETTA BASURTO 12/06/2023 08:04:00 Final Observation Date Value Abnormality Reference (Units ) Status Magnesium 12/06/2023 08:04:00 2.3 1.5-2.6 (m g/dL) Final Performing Location [facility] - [address] [place] [address]
--- OUTSIDE RECORDS SUMMARY | 2024-04-11 14:52 | External Medical Summary ---
Author Name Unknown Address Unknown Organization K01:LABORATORY [facility] - [address] [place] [address] Laboratory Report Ordering Provider Test Date Status RENETTA BASURTO 12/10/2023 08:12:00 Final Observation Date Value Abnormality Reference (Units ) Status Magnesium 12/10/2023 08:12:00 2.6 1.5-2.6 (m g/dL) Final Performing Location [facility] - [address] [place] [address]
--- OUTSIDE RECORDS SUMMARY | 2024-04-11 14:52 | External Medical Summary ---
Author Name Unknown Address Unknown Organization [id number]:LABORATORY [facility] [place] - [address] [place] [address] Laboratory Report Ordering Provider Test Date Status RENETTA BASURTO 12/05/2023 05:27:00 Final Observation Date Value Abnormality Reference (Units ) Status WBC, Total 12/05/2023 05:27:00 4.87 4.00-10.80 (K/uL) Final RBC 12/05/2023 05:27:00 3.80 4.50-5.25 (M/uL) Final Hemoglobin 12/05/2023 05:27:00 12.2 Below low normal 14.0-16.8 (g/dL) Final HCT 12/05/2023 05:27:00 36.1 Below low normal 40.0-48.4 (%) Final MCV 12/05/2023 05:27:00 95.0 82.0-99.5 (fL) Final MCH 12/05/2023 05:27:00 32.1 27.0-34.0 (pg) Final MCHC 12/05/2023 05:27:00 33.8 32.0-36.0 (g/dL) Final RDW 12/05/2023 05:27:00 16.3 11.5-15.5 (%) Final Platelets 12/05/2023 05:27:00 289 140-400 (K/uL) Final MPV 12/05/2023 05:27:00 9.6 6.6-11.1 (fL) Final Nucleated erythrocytes/100 leukocytes [Ratio] in Blood by Automated count 12/05/2023 05:27:00 0 <=0 (/100 WBCs) Final Performing Location LABORATORY [facility] - [address] [place] [address]
--- OUTSIDE RECORDS SUMMARY | 2024-04-11 14:52 | External Medical Summary ---
Author Name Unknown Address Unknown Organization K01:LABORATORY [facility] - [address] [place] [address] Laboratory Report Ordering Provider Test Date Status BASHIRSIMÓN 12/05/2023 10:54:55 Final Moderate growth normal héctor Observation Date Value Abnormality Reference (Units ) Status Bacteria identified in Specimen by Culture 12/05/2023 10:54:55 [id number]^YEAST Abnormal Final Moderate Yeast Gram Stain 12/05/2023 10:54:55 No purulence detected. <25 neutrophils/low power microscopic field. Final Gram Stain 12/05/2023 10:54:55 Occasional Polymorphonuclear leukocytes Final Gram Stain 12/05/2023 10:54:55 Few Gram positive cocci in cl usters Final Gram Stain 12/05/2023 10:54:55 Rare Budding yeast with pseud ohyphae Final Test: Culture, Respiratory, Lower, Aerobic
Specimen Source: Sputum
Specimen Type: Lower Respiratory
Specimen Date: 12/05/2023 10:54 AM
Result Date: 12/07/2023 1:15 PM
Result Status: Final result
Abnormal: Yes
Resulting Lab: LABORATORY [facility]
[address]
[place] [address]

CULTURE

Moderate Yeast (Abnormal)

Moderate growth normal héctor

STAIN

No purulence detected. <25 neutrophils/low power microscopic field.

Occasional Polymorphonuclear leukocytes

Few Gram positive cocci in clusters

Rare Budding yeast with pseudohyphae

null Performing Location LABORATORY [facility] - [address] [facility] [address] [facility] [place] [address]
--- OUTSIDE RECORDS SUMMARY | 2024-04-11 14:52 | External Medical Summary ---
Author Name Unknown Address Unknown Organization K01:LABORATORY [facility] - [address] [place] [address] Laboratory Report Ordering Provider Test Date Status POOJA LAWLER 12/04/2023 18:30:00 Final Observation Date Value Abnormality Reference (Units ) Status Bacteria identified in Specimen by Culture 12/04/2023 18:30:00 No growth Final Test: Culture, Blood (Site 2)
Specimen Source: Blood, Venous
Specimen Type: Blood
Specimen Date: 12/04/2023 6:30 PM
Result Date: 12/09/2023 8:01 PM
Result Status: Final result
Resulting Lab: LABORATORY [facility]
[address]
[place] [address]

CULTURE

No growth

null Performing Location LABORATORY [facility] - [address] [place] [address]
--- OUTSIDE RECORDS SUMMARY | 2024-04-11 14:52 | External Medical Summary ---
Author Name Unknown Address Unknown Organization K01:LABORATORY [facility] - [address] [place] [address] Laboratory Report Ordering Provider Test Date Status RENETTA BASURTO 12/06/2023 08:04:00 Final Observation Date Value Abnormality Reference (Units ) Status Phosphate 12/06/2023 08:04:00 1.9 Below low normal 2.5 -4.8 (mg/dL) Final Performing Location [facility] - [address] [place] [address]
--- OUTSIDE RECORDS SUMMARY | 2024-04-11 14:52 | External Medical Summary ---
Author Name Unknown Address Unknown Organization K01:LABORATORY [facility] - [address] [place] [id number] Laboratory Report Ordering Provider Test Date Status GEORGE,ZAMORANO 12/11/2023 11:34:28 Final Observation Date Value Abnormality Reference (Units ) Status Bacteria identified in Specimen by Culture 12/11/2023 11:34:28 No fungus isolated Final Fungal Smear 12/11/2023 11:34:28 No yeast or hyphae seen. Final Test: Culture Fungus Other<b r/>Specimen Source: Lung, Left upper lobe
Specimen Type: Bronchoalveolar Lavage (BAL)
Specimen Date: 12/11/2023 11:34 AM
Result Date: 01/01/2024 8:44 AM
Result Status: Final result
Resulting Lab: LABORATORY [facility]
[address]
[place] [address]

CULTURE

No fungus isolated

STAIN

No yeast or hyphae seen.

null Performing Location LABORATORY [facility] - [address] [facility] [address]
--- OUTSIDE RECORDS SUMMARY | 2024-04-11 14:52 | External Medical Summary ---
Author Name Unknown Address Unknown Organization K01:LABORATORY [facility] - [address] [place] [address] Laboratory Report Ordering Provider Test Date Status RENETTA BASURTO 12/05/2023 05:27:00 Final Observation Date Value Abnormality Reference (Units ) Status Phosphate 12/05/2023 05:27:00 3.4 2.5-4.8 (m g/dL) Final Performing Location [facility] - [address] [place] [address]
--- OUTSIDE RECORDS SUMMARY | 2024-04-11 14:52 | External Medical Summary ---
Author Name Unknown Address Unknown Organization K01:LABORATORY [facility] - [address] [place] [address] Laboratory Report Ordering Provider Test Date Status KAMLESH HANSON 12/05/2023 05:27:00 Final Observation Date Value Abnormality Reference (Units ) Status LDH 12/05/2023 05:27:00 440 Above high normal <= 250 (U/L) Final Result may be falsely elevat ed due to hemolysis. Performing Location LABORATORY [facility] - [address] [place] [address]
--- OUTSIDE RECORDS SUMMARY | 2024-04-11 14:52 | External Medical Summary | Summary of Care ---
Author Name Unknown Organization [facility] Address [address] [place] [address] Phone [phone] Care Team Providers Care Triple Valve Mechanic Name Role Phone Matthew Herrmann PA-C Primary Care Provider [phone] Reason for Visit * Reason Onset Date Comments Advice 12/02/2023 Encounter Details Date Type Department Care Team ([facility] st Contact Info) Description 12/02/[address] [facility] Hematology [address] [place] [address] Grayson Bello PA-C [address] [place] [address] Advice Allergies Active Allergy Reactions Criticality Noted Date Comments Carboplatin High 11/14/2021 Dyspnea, chest pain, hypoxia, sore throat, edema throat, flushing, mild hypotension Isosorbide Nitrate Other (Please comment) 07/22/2023 Headache documented as of this encounter (statuses as of 12/05/2023) Medications Medication Sig Dispensed Refills Start Date [...] 09/23/2023 Active dexAMETHasone 4 MG Oral Tablet (Decadron)Indications: [...] as of this encounter (statuses as of 12/05/2023) Active Problems Problem Noted Date Diagnosed Date Acute hypoxic respiratory failure 12/05/2023 Pneumonia 12/04/2023 [...] as of this encounter (statuses as of 12/05/2023) Resolved Problems Problem Noted Date Diagnosed Date Resolved Date MSSA bacteremia 08/01/2021 08/07/2021 Sepsis 08/01/2021 08/07/2021 COPD, group B, by GOLD 2017 classification 05/08/2021 06/21/2021 Overview: Per COPD GOLD Classification Obstructive lung disease 04/10/2021 Overview: Per COPD GOLD Classification documented as of this encounter (statuses as of 12/05/2023) Immunizations Name Administration Dates Next Due COVID-19 mRNA, LNP-s, No Pre serve, 2-Dose Series (Ninua) 09/23/2021 documented as of this encounter Social [...] encounter Miscellaneous Notes * Telephone Encounter - Grayson Bello PA-C - 12/05/2023 12:54 PM EST Late entry note called stating that ritika is having worsening SOB/ALDRIDGE since Saturday and tonight is very labored. Also w fevers. No CP and not on O2 at baseline. Recently had pembro paclitaxel carbo for lung ca. is concerned something is wrong. I agree that it is concerning and I advised evaluation in the ER, either [facility] or [facility] but may be best to go to [facility] if very SOB. to bring pt in. documented in this encounter Plan of Treatment Upcoming Encounters Date Type Department Care Team (Late st Contact Info) Description 12/06/2023 6:45 AM EST Anticoagulation Pharmacy Call Center [address] [place] [address] Ccps, [facility] [address] [place] [address] 12/12/2023 8:45 AM EST Nurse Only Hematology Oncology [facility], [place] [address] [place] [address] [place], Nurse Lab Hem/Onc [facility] [place] [address] 12/12/2023 9:30 AM EST Office Visit Hematology Oncology [facility], [place] [address] [place] [phone] Kerri Foote MD [address] [place], [place] [phone] 12/12/2023 10:30 AM EST Hem/Onc Treatment Hematology Oncology [facility], [place] [address] [place], [place] [phone] [place], Chair 4 Hem/Onc [address] [place] [phone] 05/06/2024 9:20 AM EDT Office Visit Neurology [facility] [place] [address] [place] [address] Kathy Pryor PA-C [address] [place] [address] Health Maintenance Due Date Last Done Comments [...] this encounter Medical Devices Implanted Type Area Farm Manager Device Identifier Shelf Expiration Date Model / Serial / Lot Power Port 8fr Sngl Lumen Plas - [id number] Implanted:Qty: 1 on 04/24/2021 at [facility] : PERIPHERAL VASCULAR [id number] 02/24/2022 [id number] / / [id number] Port Implant W/8f Poly Cath - [id number] Implanted:Qty: 1 on 10/15/2023 at [facility] : PERIPHERAL VASCULAR [id number] 03/27/2025 [id number] / / [id number] documented as of this encounter Additional Health Concerns Infection Onset Date Last Indicated Resolved Time COVID-19 (confirmed) 03/19/2022 03/19/2022 9:31 PM EST Respiratory Rule-Out 12/02/2023 12/02/2023 11:36 AM EST COVID-19 Rule-Out 12/02/2023 12/02/2023 12/02/2023 11:36 AM EST Respiratory Rule-Out 12/04/2023 12/04/2023 8:30 PM EST COVID-19 Rule-Out 12/04/2023 12/04/2023 [...] the patient have Health Care Power of Band Saw Filer? No Full Code 05/23/2021 12:21 PM 05/24/2021 9:38 PM This order reflects the patients wishes and were consensually agreed upon. Question Answer Comments Discussion of Advance Directives occurred with: Patient Care Teams Triple Valve Mechanic Relationship Specialty Start Date End Date Matthew Herrmann PA-C [address] [place] [address] PCP - General Physician Reading Efficiency Course Director 03/22/21 documented as of this encounter
--- OUTSIDE RECORDS SUMMARY | 2024-04-11 14:52 | External Medical Summary ---
Author Name Unknown Address Unknown Organization : Laboratory Report Ordering Provider Test Date Status TEA DENNIS 12/09/2023 15:08:00 Final Observation Date Value Abnormality Reference (Units ) Status Q FEVER IGG PHASE I SCR 12/09/2023 15:08:00 NEGATIVE Final REFERENCE RANGE: NEGATIVE Q FEVER IGG PHASE II SCR 12/09/2023 15:08:00 NEGATIVE Final REFERENCE RANGE: NEGATIVE Q FEVER IGM PHASE I SCR 12/09/2023 15:08:00 NEGATIVE Final REFERENCE RANGE: NEGATIVE Q FEVER IGM PHASE II SCR 12/09/2023 15:08:00 NEGATIVE Final REFERENCE RANGE: NEGATIVE
Q Fever Antibody testing includes differentiation
of antibodies to Phase I and Phase II antigenic
variants. Coxiella burnetii, which causes Q Fever,
undergoes transitions between Phase I and Phase II
states. These phases are serologically
distinguishable and useful in the serodiagnosis of
acute and chronic disease.
In some cases, the ratio of titer of Phase II to
Phase I may indicate the stage of the disease.
A ratio of greater than 1 may indicate the acute
stage; greater than or equal to 1, granulomatous
hepatitis; and less than 1, the chronic stage or
endocarditis.
As with other infectious diseases, IgM antibodies
are the first to appear. Usually they are
detectable for a few weeks or, at the most, for a
few months. IgG antibodies appear somewhat later
but can persist for years, even for life.
Although single Phase II IgG titers of 1:256 or
greater are considered evidence of acute C.
burnetii disease, the best criterion for a
dependable diagnosis is still the demonstration of
a fourfold or higher increase in antibody titer
between the acute and convalescent serum samples.
Test performed by [facility]
[address],
[place] [address]

Business Process Engineer: Sandrine Ambriz MD,PHD,COLIN
Test Reported by [employer],
[employer] [facility],
[address] [place], [place]
Gonsalo Silva M.D., Ph.D., Director of Laboratories
, [facility] [id number] Performing Location
--- OUTSIDE RECORDS SUMMARY | 2024-04-11 14:52 | External Medical Summary ---
Author Name Unknown Address Unknown Organization K01:LABORATORY C - [address] [place] [address] Laboratory Report Ordering Provider Test Date Status RENETTA BASURTO 12/10/2023 08:12:00 Final Observation Date Value Abnormality Reference (Units ) Status Phosphate 12/10/2023 08:12:00 2.6 2.5-4.8 (m g/dL) Final Performing Location [facility] - [address] [place] [address]
--- OUTSIDE RECORDS SUMMARY | 2024-04-11 14:52 | External Medical Summary ---
Author Name Unknown Address Unknown Organization K01:LABORATORY [facility] - [facility] [address] [place] [address] Laboratory Report Ordering Provider Test Date Status RENETTA BASURTO 12/10/2023 08:12:00 Final Observation Date Value Abnormality Reference (Units ) Status WBC, Total 12/10/2023 08:12:00 7.21 4.00-10.80 (K/uL) Final RBC 12/10/2023 08:12:00 4.08 4.50-5.25 (M/uL) Final Hemoglobin 12/10/2023 08:12:00 13.0 Below low normal 14.0-16.8 (g/dL) Final HCT 12/10/2023 08:12:00 39.6 Below low normal 40.0-48.4 (%) Final MCV 12/10/2023 08:12:00 97.1 82.0-99.5 (fL) Final MCH 12/10/2023 08:12:00 31.9 27.0-34.0 (pg) Final MCHC 12/10/2023 08:12:00 32.8 32.0-36.0 (g/dL) Final RDW 12/10/2023 08:12:00 16.5 11.5-15.5 (%) Final Platelets 12/10/2023 08:12:00 499 Above high normal 140-400 (K/uL) Final MPV 12/10/2023 08:12:00 9.1 6.6-11.1 (fL) Final Nucleated erythrocytes/100 leukocytes [Ratio] in Blood by Automated count 12/10/2023 08:12:00 0 <=0 (/100 WBCs) Final Performing Location LABORATORY [facility] - [address] [place] [address]
--- OUTSIDE RECORDS SUMMARY | 2024-04-11 14:52 | External Medical Summary ---
Author Name Unknown Address Unknown Organization K01:LABORATORY [facility] - [address] [place] [address] Laboratory Report Ordering Provider Test Date Status RENETTA BASURTO 12/07/2023 07:44:00 Final Observation Date Value Abnormality Reference (Units ) Status BUN 12/07/2023 07:44:00 8 6-20 (mg/dL) Final Creatinine 12/07/2023 07:44:00 0.9 0.6-1.2 (mg/dL) Final Glomerular filtration rate/1.73 sq M.predicted [Volume Rate/Area] in Serum, Plasma or Blood by Creatinine-based formula (CKD-EPI) 12/07/2023 07:44:00 >90 >=60 (mL/min) Final eGFR is calculated based on the CKD-EPI 2020 equation SODIUM 12/07/2023 07:44:00 140 135-146 (m mol/L) Final Potassium 12/07/2023 07:44:00 3.6 3.5-5.1 (m mol/L) Final Cl 12/07/2023 07:44:00 105 98-107 (mm ol/L) Final CO2 12/07/2023 07:44:00 24 22-32 (mmo l/L) Final Anion gap 12/07/2023 07:44:00 11 7-15 (mmol /L) Final Glucose 12/07/2023 07:44:00 139 Above high normal 70 -120 (mg/dL) Final Calcium 12/07/2023 07:44:00 8.4 8.4-10.2 ( mg/dL) Final Performing Location LABORATORY [facility] - [address] [place] [address]
--- OUTSIDE RECORDS SUMMARY | 2024-04-11 14:52 | External Medical Summary ---
Author Name Unknown Address Unknown Organization K01:LABORATORY [facility] - [facility] [address] [place] [address] Laboratory Report Ordering Provider Test Date Status RENETTA BASURTO 12/06/2023 08:04:00 Final Observation Date Value Abnormality Reference (Units ) Status BUN 12/06/2023 08:04:00 9 6-20 (mg/dL) Final Creatinine 12/06/2023 08:04:00 0.9 0.6-1.2 (mg/dL) Final Glomerular filtration rate/1.73 sq M.predicted [Volume Rate/Area] in Serum, Plasma or Blood by Creatinine-based formula (CKD-EPI) 12/06/2023 08:04:00 >90 >=60 (mL/min) Final eGFR is calculated based on the CKD-EPI 2020 equation SODIUM 12/06/2023 08:04:00 139 135-146 (m mol/L) Final Potassium 12/06/2023 08:04:00 3.2 Below low normal 3.5 -5.1 (mmol/L) Final Cl 12/06/2023 08:04:00 106 98-107 (mm ol/L) Final CO2 12/06/2023 08:04:00 22 22-32 (mmo l/L) Final Anion gap 12/06/2023 08:04:00 11 7-15 (mmol /L) Final Glucose 12/06/2023 08:04:00 115 70-120 (mg /dL) Final Calcium 12/06/2023 08:04:00 8.3 Below low normal 8.4 -10.2 (mg/dL) Final Performing Location LABORATORY [facility] - [address] [place] [address]
--- OUTSIDE RECORDS SUMMARY | 2024-04-11 14:52 | External Medical Summary | Summary of Care ---
Author Name Unknown Organization [facility] Address [address] [place] [address] Phone [phone] Care Team Providers Care Auditing Control Clerk Name Role Phone Matthew Herrmann PA-C Primary Care Provider [phone] Reason for Visit * Reason Onset Date Comments Hospital Follow-Up 12/09/2023 Encounter Details Date Type Department Care Team (Late st Contact Info) Description 12/09/2023 Telephone Hematology Oncology [facility] [address] [place] [address] Kerri Foote MD [address] [place] [address] Hospital Follow-Up Allergies Active Allergy Reactions Criticality Noted Date Comments Carboplatin High 11/14/2021 Dyspnea, chest pain, hypoxia, sore throat, edema throat, flushing, mild hypotension Isosorbide Nitrate Other (Please comment) 07/22/2023 Headache documented as of this encounter (statuses as of 12/09/2023) Medications Medication Sig Dispensed Refills Start Date [...] s: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 30 Tablet 5 09/23/2023 Suspended Additional Information dexAMETHasone 4 MG Oral [...] as of this encounter (statuses as of 12/09/2023) Active Problems Problem Noted Date Diagnosed Date [...] as of this encounter (statuses as of 12/09/2023) Resolved Problems Problem Noted Date Diagnosed Date Resolved Date MSSA bacteremia 08/01/2021 08/07/2021 Sepsis 08/01/2021 08/07/2021 COPD, group B, by GOLD 2017 classification 05/08/2021 06/21/2021 Overview: Per COPD GOLD Classification Obstructive lung disease 04/10/2021 Overview: Per COPD GOLD Classification documented as of this encounter (statuses as of 12/09/2023) Immunizations Name Administration Dates Next Due COVID-19 mRNA, LNP-s, No Pre serve, 2-Dose Series (threadsy) 09/23/2021 documented as of this encounter Social [...] Department Care Team (Latest Contact Info) Description 12/10/2023 6:45 AM EST Anticoagulation Pharmacy Call Center [address] [place] [address] Ccps, [facility] [address] [place] [address] 12/11/2023 2:30 PM EST - 12/11/2023 4:00 PM EST Surgery [facility]O [facility], Endoscopy Suite, [facility] [address], [address] [place], [place] [phone] Ramirez, Rae Umanzor MD [address] [place], [place] [phone] BRONCHOSCOPY DIAGNOSTIC WITH OR WITHOUT WASHING 12/12/2023 8:45 AM EST Nurse Only Hematology Oncology [facility], [place] [address] [place], [place] [phone] [place], Nurse Lab Hem/Onc [facility] [address] [place], [place] [phone] 12/12/2023 9:30 AM EST Office Visit Hematology Oncology [facility], [place] [address] [place] [address] Kerri Foote MD [address] [place], [place] [phone] 12/12/2023 10:30 AM EST Hem/Onc Treatment Hematology Oncology [facility], [place] [address] [place], [place] [phone] [place], Chair 4 Hem/Onc [facility] [address] [place], [place] [phone] 05/06/2024 9:20 AM EDT Office Visit Neurology [facility] [place] [address] [place] [address] Kathy Pryor PA-C [address] [place] [address] Scheduled Procedures Name Priority Associated Diagnoses Date/Ti me BRONCHOSCOPY DIAGNOSTIC WITH OR WITHOUT WASHING Lung disorder 12/11/2023 2:30 PM EST Health Maintenance Due Date Last [...] this encounter Medical Devices Implanted Type Area Furniture Rental Consultant Device Identifier Shelf Expiration Date Model / Serial / Lot Power Port 8fr Sngl Lumen Plas - [id number] Implanted:Qty: 1 on 04/24/2021 at [facility] : PERIPHERAL VASCULAR [id number] 02/24/2022 [id number] / / [id number] Port Implant W/8f Poly Cath - [id number] Implanted:Qty: 1 on 10/15/2023 at [facility] [employer] : PERIPHERAL VASCULAR [id number] 03/27/2025 [id number] / / [id number] documented as of this encounter Advance Directives [...] the patient have Health Care Power of Airplane Rental Clerk? No Full Code 05/23/2021 12:21 PM 05/24/2021 9:38 PM This order reflects the patients wishes and were consensually agreed upon. Question Answer Comments Discussion of Advance Directives occurred with: Patient Care Teams Auditing Control Clerk Relationship Specialty Start Date End Date Matthew Herrmann PA-C [address] [place] [address] PCP - General Physician Cafe Attendant 03/22/21 documented as of this encounter
--- OUTSIDE RECORDS SUMMARY | 2024-04-11 14:52 | External Medical Summary ---
Author Name Unknown Address Unknown Organization K01:[place]ORY [facility] [place] [address] [place] [address] Laboratory Report Ordering Provider Test Date Status RENETTA BSAURTO 12/06/2023 08:04:00 Final Observation Date Value Abnormality Reference (Units ) Status WBC, Total 12/06/2023 08:04:00 5.48 4.00-10.80 (K/uL) Final RBC 12/06/2023 08:04:00 3.59 4.50-5.25 (M/uL) Final Hemoglobin 12/06/2023 08:04:00 11.4 Below low normal 14.0-16.8 (g/dL) Final HCT 12/06/2023 08:04:00 34.1 Below low normal 40.0-48.4 (%) Final MCV 12/06/2023 08:04:00 95.0 82.0-99.5 (fL) Final MCH 12/06/2023 08:04:00 31.8 27.0-34.0 (pg) Final MCHC 12/06/2023 08:04:00 33.4 32.0-36.0 (g/dL) Final RDW 12/06/2023 08:04:00 16.5 11.5-15.5 (%) Final Platelets 12/06/2023 08:04:00 331 140-400 (K/uL) Final MPV 12/06/2023 08:04:00 9.5 6.6-11.1 (fL) Final Nucleated erythrocytes/100 leukocytes [Ratio] in Blood by Automated count 12/06/2023 08:04:00 0 <=0 (/100 WBCs) Final Performing Location [place] [facility] [place] [address] [place] [address]
--- OUTSIDE RECORDS SUMMARY | 2024-04-11 14:52 | External Medical Summary | Summary of Care ---
Author Name Unknown Organization [facility] Address [address] [place] [address] Phone [phone] Care Team Providers Care Prescription Clerk Lenses Name Role Phone Matthew Herrmann PA-C Primary Care Provider +1 [phone] Encounter Details Date Type Department Care Team (Late st Contact Info) Description 12/05/2023 Population Health External Data Unspecified Department Allergies Active Allergy Reactions Criticality Noted Date [...] mRNA, LNP-s, No Pre serve, 2-Dose Series (iContact) 09/23/2021 documented as of this encounter Social [...] Team (Late st Contact Info) Description 12/12/2023 8:45 AM EST Nurse Only Hematology Oncology [facility], [place] [address] [place] [address] [place], Nurse Lab Hem/Onc [address] [place] [address] 12/12/2023 9:30 AM EST Office Visit Hematology Oncology [facility], [address] [phone] Kerri Foote MD [facility] [address] [place], [place] [phone] 12/12/2023 10:30 AM EST Hem/Onc Treatment Hematology Oncology [facility], [place] [address] [place], [place] [phone] [place], Chair 4 Hem/Onc [address] [place] [address] [phone] 05/06/2024 9:20 AM EDT Office Visit Neurology [facility] [address] [place] [address] Kathy Pryor PA-C [address] [facility], [place] [address] Health Maintenance Due Date Last Done Comments [...] this encounter Medical Devices Implanted Type Area Dietitian Device Identifier Shelf Expiration Date Model / Serial / Lot Power Port 8fr Sngl Lumen Plas - [id number] Implanted:Qty: 1 on 04/24/2021 at [facility] CR BARD : PERIPHERAL VASCULAR [id number] 02/24/2022 [id number] / / [id number] Port Implant W/8f Poly Cath - [id number] Implanted:Qty: 1 on 10/15/2023 at [facility] CR BARD : PERIPHERAL VASCULAR [id number] 03/27/2025 [id number] / / [id number] documented as of this encounter Advance Directives [...] the patient have Health Care Power of Supervisor Sewer System? No Full Code 05/23/2021 12:21 PM 05/24/2021 9:38 PM This order reflects the patients wishes and were consensually agreed upon. Question Answer Comments Discussion of Advance Directives occurred with: Patient Healthcare Agents on File Name Relationship Healthcare Agent [facility] p Communication Rose Mary Brothers Spouse Health Care Agent Care Teams Prescription Clerk Lenses Relationship Specialty Start Date End Date Matthew Herrmann PA-C [address] [place], [place] [address]TG [phone] PCP - General Physician Urban Sociologist 03/22/21 documented as of this encounter
--- OUTSIDE RECORDS SUMMARY | 2024-04-11 14:52 | External Medical Summary ---
Author Name Unknown Address Unknown Organization K01:LABORATORY [place] [address] [place] [address] Laboratory Report Ordering Provider Test Date Status POOJA LAWLER 12/04/2023 18:25:00 Final Observation Date Value Abnormality Reference (Units ) Status WBC, Total 12/04/2023 18:25:00 5.06 4.00-10.80 (K/uL) Final RBC 12/04/2023 18:25:00 4.05 4.50-5.25 (M/uL) Final Hemoglobin 12/04/2023 18:25:00 13.2 Below low normal 14.0-16.8 (g/dL) Final HCT 12/04/2023 18:25:00 39.0 Below low normal 40.0-48.4 (%) Final MCV 12/04/2023 18:25:00 96.3 82.0-99.5 (fL) Final MCH 12/04/2023 18:25:00 32.6 27.0-34.0 (pg) Final MCHC 12/04/2023 18:25:00 33.8 32.0-36.0 (g/dL) Final RDW 12/04/2023 18:25:00 16.5 11.5-15.5 (%) Final Platelets 12/04/2023 18:25:00 332 140-400 (K/uL) Final MPV 12/04/2023 18:25:00 9.2 6.6-11.1 (fL) Final Nucleated erythrocytes/100 leukocytes [Ratio] in Blood by Automated count 12/04/2023 18:25:00 1 Above high normal <=0 (/100 WBCs) Final Performing Location LABORATORY [facility] [place] - [address] [place] [address]
--- OUTSIDE RECORDS SUMMARY | 2024-04-11 14:52 | External Medical Summary ---
Author Name Unknown Address Unknown Organization K01:LABORATORY [facility] [place] - [address] [facility] [address] [place] [address] Laboratory Report Ordering Provider Test Date Status RENETTA BASURTO 12/04/2023 20:12:57 Final Observation Date Value Abnormality Reference (Units ) Status Legionella pneumophila 1 Ag [Presence] in Urine 12/04/2023 20:12:57 Negative Negative Final Presumptive negative for L. pneumophila serogroup 1 antigens. A negative result does not rule out the possibility of Legionella infection due to other serogroups or species of Legionella. Performing Location LABORATORY [facility] [place] - [address] [facility] [address]
--- OUTSIDE RECORDS SUMMARY | 2024-04-11 14:52 | External Medical Summary ---
Author Name Unknown Address Unknown Organization [id number]:[place]ORY [facility] [place] [address] [facility] [place] [address] Laboratory Report Ordering Provider Test Date Status RENETTA BASURTO 12/05/2023 00:48:00 Final Observation Date Value Abnormality Reference (Units ) Status Body temperature 12/05/2023 00:48:00 37.0 (C) Final pH of Venous blood 12/05/2023 00:48:00 7.448 Above high normal 7.320-7.430 (units) Final Carbon dioxide [Partial pressure] in Venous blood 12/05/2023 00:48:00 35.9 Below low normal 40.0-60.0 (mmHg) Final Oxygen [Partial pressure] in Venous blood 12/05/2023 00:48:00 48.1 25.0-50.0 (mmHg) Final Base excess, Capillary 12/05/2023 00:48:00 1.2 -2.0-2.0 (mmol/L) Final Hemoglobin [Mass/volume] in Blood by Oximetry 12/05/2023 00:48:00 12.4 Below low normal 14.0-16.8 (g/dL) Final Oxyhemoglobin, Venous (FO2HB) 12/05/2023 00:48:00 82.0 40.0-85.0 (% total Hgb) Final Carboxyhemoglobin 12/05/2023 00:48:00 1.5 <=1.5 (% total Hgb) Final Smokers: 0-9.0 % Methemoglobin 12/05/2023 00:48:00 0.6 <=1.5 (% total Hgb) Final Deoxyhemoglobin/Hemoglobin.t otal in Venous blood 12/05/2023 00:48:00 15.9 (% total Hgb) Emily l Oxygen content in Venous blood 12/05/2023 00:48:00 14.3 7.0-18.0 (%vol) Final Bicarbonate, Venous, POC (i-STAT) 12/05/2023 00:48:00 24.5 23.0-31.0 (mmol/L) [facility] Performing Location LAB[facility] [place] [facility] [place] [address]
--- OUTSIDE RECORDS SUMMARY | 2024-04-11 14:52 | External Medical Summary ---
Author Name Unknown Address Unknown Organization K01:LABORATORY C - [address] [place] [address] Laboratory Report Ordering Provider Test Date Status RENETTA BASURTO 12/09/2023 09:10:00 Final Observation Date Value Abnormality Reference (Units ) Status Phosphate 12/09/2023 09:10:00 2.1 Below low normal 2.5 -4.8 (mg/dL) Final Performing Location LABORATORY [facility] - [address] [place] [address]
--- OUTSIDE RECORDS SUMMARY | 2024-04-11 14:52 | External Medical Summary ---
Author Name Unknown Address Unknown Organization K01:[place]ORY [facility] [place] [address] [facility] [place] [address] Laboratory Report Ordering Provider Test Date Status POOJA LAWLER 12/04/2023 18:25:00 Final Observation Date Value Abnormality Reference (Units ) Status SYNC LEUKOCYTES IN BLOOD BY AUTOMATED COUNT 12/04/2023 18:25:00 5.06 4.00-10.80 (K/uL) Final Segs 12/04/2023 18:25:00 53.3 40.0-75.0 (%) Final Lymphs % 12/04/2023 18:25:00 26.9 18.0-42.0 (%) Final Monos 12/04/2023 18:25:00 15.2 Above high normal 1.0-11.0 (%) Final Eosinophils 12/04/2023 18:25:00 2.0 0.0-6.0 (%) Final Basos 12/04/2023 18:25:00 1.2 0.0-2.0 (%) Final Immature Granulocyte, Percent 12/04/2023 18:25:00 1.4 0.0-2.0 (%) Final Absolute Segs 12/04/2023 18:25:00 2.70 1.80-7.70 (K/uL) Final Lymphs, absolute 12/04/2023 18:25:00 1.36 1.00-4.80 (K/ul) Final Monos, Abs 12/04/2023 18:25:00 0.77 0.00-1.10 (K/uL) Final Eos, Abs 12/04/2023 18:25:00 0.10 0.00-0.70 (K/uL) Final Basos, Abs 12/04/2023 18:25:00 0.06 0.00-0.20 (K/uL) Final Immature Granulocytes, Number 12/04/2023 18:25:00 0.07 0.00-0.20 (K/uL) Final Performing Location [place] [facility] [place] [facility] [address] [facility] [address]
--- OUTSIDE RECORDS SUMMARY | 2024-04-11 14:53 | External Medical Summary ---
Author Name Unknown Address Unknown Organization K01:LABORATORY [facility] [place] - [address] [place] [address] Laboratory Report Ordering Provider Test Date Status SIMÓN COHEN 12/02/2023 10:03:00 Final Observation Date Value Abnormality Reference (Units ) Status Troponin T 12/02/2023 10:03:00 13 <=22 (ng/ L) Final Performing Location LABORATORY [facility] [place] - [address] [place] [address]
--- OUTSIDE RECORDS SUMMARY | 2024-04-11 14:53 | External Medical Summary ---
Author Name Unknown Address Unknown Organization K01:LABORATORY [facility] [place] - [address] [place] [address] Laboratory Report Ordering Provider Test Date Status POOJA LAWLER 12/04/2023 18:25:00 Final Observation Date Value Abnormality Reference (Units ) Status Bacteria identified in Specimen by Culture 12/04/2023 18:25:00 No growth Final Test: Culture, Blood
Sp ecimen Source: Blood, Venous
Specimen Type: Blood
Specimen Date: 12/04/2023 6:25 PM
Result Date: 12/09/2023 8:01 PM
Result Status: Final result
Resulting Lab: LABORATORY [facility]
[address]
[place] [address]

CULTURE

No growth

null Performing Location LABORATORY [facility] [place] - [address] [place] [address]
--- OUTSIDE RECORDS SUMMARY | 2024-04-11 14:53 | External Medical Summary | Summary of Care ---
Author Name Unknown Organization [facility] Address [address] [place] [address] Phone [phone] Care Team Providers Care Wage And Salary Administrator Name Role Phone Matthew Herrmann PA-C Primary Care Provider [phone] Reason for Visit * Reason Onset Date Comments Home Monitoring Orders Only 12/03/2023 Encounter Details Date Type Department Care Team ([facility] st Contact Info) Description 12/03/2023 Home Monitoring [facility] [address] [place] [address] Matthew Herrmann PA-C [address] [place] [address] Shortness of breath*; Malignant neoplasm of lower lobe, left bronchus or lung (HCC) Allergies Active Allergy Reactions Criticality Noted Date Comments Carboplatin High 11/14/2021 Dyspnea, chest pain, hypoxia, sore throat, edema throat, flushing, mild hypotension Isosorbide Nitrate Other (Please comment) 07/22/2023 Headache documented as of this encounter (statuses as of 12/03/2023) Medications Medication Sig Dispensed Refills Start Date [...] as of this encounter (statuses as of 12/03/2023) Active Problems Problem Noted Date Diagnosed Date [...] as of this encounter (statuses as of 12/03/2023) Resolved Problems Problem Noted Date Diagnosed Date Resolved Date MSSA bacteremia 08/01/2021 08/07/2021 Sepsis 08/01/2021 08/07/2021 COPD, group B, by GOLD 2017 classification 05/08/2021 06/21/2021 Overview: Per COPD GOLD Classification Obstructive lung disease 04/10/2021 Overview: Per COPD GOLD Classification documented as of this encounter (statuses as of 12/03/2023) Immunizations Name Administration Dates Next Due COVID-19 mRNA, LNP-s, No Pre serve, 2-Dose Series (CrowdSource) 09/23/2021 documented as of this encounter Social [...] as of this encounter Progress Notes * Shereen Fairchild OSA - 12/03/2023 9:45 AM EST Patient has been successfully enrolled to the [place] [address] Care Coordination and Integration (CCI) program and will be provided with the Current Health Wearable device to facilitate their participation in remote monitoring: Population Health Pathway: Wearable Only Patient has been oriented to remote patient monitoring by their French Binder. The case management associate has also provided the patient with instruction and education regarding the program. Current health to assist with initial device set-up. Delivery Method: Mail Patient understands that this monitoring should not be used as a replacement for emergency and/or urgent care. If patient experiences any urgent symptoms, they are aware to call their manager medicare for additional instructions. In emergency situations, they will either call 911 or report directly to the ED for further evaluation. documented in this encounter Plan of Treatment Upcoming Encounters Date Type Department Care Team ([facility] st Contact Info) Description 12/04/2023 11:00 AM EST Office Visit [facility] [address] [facility] [address] [place] [address] [place] CRNP [address] [facility] [address] [place] [address] 12/05/2023 6:15 AM EST Anticoagulation Pharmacy Call Center WB [address] [facility] [place] [address] [facility] 58 [address] [facility] [place] [address] 12/05/2023 11:00 AM EST Office Visit [address] [phone] Matthew Herrmann PA-C [address] [place] [address] 12/12/2023 8:45 AM EST Nurse Only Hematology Oncology [facility], [place] [address] [place], [place] [phone] [place], Nurse Lab Hem/Onc [address] [place] [address] 12/12/2023 9:30 AM EST Office Visit Hematology Oncology [facility], [place] [address] [place] [phone] Kerri Foote MD [facility] [place] [address] 12/12/2023 10:30 AM EST Hem/Onc Treatment Hematology Oncology [facility], [address] [address] [place], Chair 4 Hem/Onc [address] [place] [address] 05/06/2024 9:20 AM EDT Office Visit Neurology [facility] [place] [address] [facility] [place], [place] [phone] Kathy Pryor PA-C [address] [facility] [place], [place] [phone] Health Maintenance Due Date Last Done Comments [...] this encounter Medical Devices Implanted Type Area Household Personal Assistant Device Identifier Shelf Expiration Date Model / Serial / Lot Power Port 8fr Sngl Lumen Plas - [id number] Implanted:Qty: 1 on 04/24/2021 at [facility] CR BARD : PERIPHERAL VASCULAR [id number] 02/24/2022 [id number] / / [id number] Port Implant W/8f Poly Cath - [id number] Implanted:Qty: 1 on 10/15/2023 at [facility] CR BARD : PERIPHERAL VASCULAR [id number] 03/27/2025 [id number] / / [id number] documented as of this encounter Visit Diagnoses Diagnosis Shortness of breath- Primary Malignant neoplasm of lower lobe, left bronchus or lung (HCC) documented in this encounter Additional Health Concerns [...] the patient have Health Care Power of Quickbooks Bookkeeper? No Code Status History Code Status Date Activated Date Inactivated Comments Full Code 05/23/2021 12:21 PM 05/24/2021 9:38 PM This order reflects the patients wishes and were consensually agreed upon. Question Answer Comments Discussion of Advance Directives occurred with: Patient Healthcare Agents on File Name Relationship Healthcare Agent [facility] delmar Communication Rose Mary Brothers Spouse Health Care Agent Care Teams Wage And Salary Administrator Relationship Specialty Start Date End Date Matthew Herrmann PA-C [address] [place] [address] PCP - General Physician Refrigeration Mechanic 03/22/21 documented as of this encounter
--- OUTSIDE RECORDS SUMMARY | 2024-04-11 14:53 | External Medical Summary ---
Author Name Unknown Address Unknown Organization K01:[place] [place] [address] [place] [place] [address] Laboratory Report Ordering Provider Test Date Status AUDELIA OBRIEN 12/02/2023 11:20:00 Final Observation Date Value Abnormality Reference (Units ) Status Troponin T 12/02/2023 11:20:00 13 <=22 (ng/ L) Final Performing Location [place] [facility] [place] [address] [place] [address]
--- OUTSIDE RECORDS SUMMARY | 2024-04-11 14:53 | External Medical Summary ---
Author Name Unknown Address Unknown Organization K01:LABORATORY [facility] - [address] [place] [address] Laboratory Report Ordering Provider Test Date Status SIMÓN COHEN 12/02/2023 10:03:00 Final Observation Date Value Abnormality Reference (Units ) Status ABO 12/02/2023 10:03:00 A Final RH 12/02/2023 10:03:00 Negative Final RED BLOOD CELL ANTIBODY SCREEN 12/02/2023 10:03:00 Negative Final SPECIMEN EXPIRATION DATE 12/02/2023 10:03:00 12/05/2023 23:59 Final Performing Location LABORATORY [facility] - [address] [place] [address]
--- OUTSIDE RECORDS SUMMARY | 2024-04-11 14:53 | External Medical Summary ---
Author Name Unknown Address Unknown Organization K01:LABORATORY [facility] [place] - [address] [place] [address] Laboratory Report Ordering Provider Test Date Status SIMÓN COHEN 12/02/2023 10:03:00 Final Observation Date Value Abnormality Reference (Units ) Status Bacteria identified in Specimen by Culture 12/02/2023 10:03:00 No growth Final Test: Culture, Blood
Gail durham Source: Blood, Venous
Specimen Type: Blood
Specimen Date: 12/02/2023 10:03 AM
Result Date: 12/07/2023 11:01 AM
Result Status: Final result
Resulting Lab: LABORATORY [facility] [place]
[address]
[place] [address]

CULTURE

No growth

null Performing Location LABORATORY [facility] [place] - [address] [place] [address]
--- OUTSIDE RECORDS SUMMARY | 2024-04-11 14:53 | External Medical Summary | Summary of Care ---
Author Name Unknown Organization [facility] Address [address] [place] [address] Phone [phone] Care Team Providers Care Kitchen Hand Name Role Phone Matthew Herrmann PA-C Primary Care Provider +[phone] Encounter Details Date Type Department Care Team (Late st Contact Info) Description 12/03/2023 Population Health External Data Unspecified Department Allergies [...] mRNA, LNP-s, No Pre serve, 2-Dose Series (Lumeta) 09/23/2021 documented as of this encounter Social [...] Team (Late st Contact Info) Description 12/04/2023 11:00 AM EST Office Visit Cardiology, [facility] [address] [place] [address] [place] Qu[place] CRNP [address] [place] [address] 12/05/2023 6:15 AM EST Anticoagulation Pharmacy Call Center [address] [place] [address] [facility] 58 [address] [facility] [place] [address] 12/05/2023 4:00 PM EST Appointment Radiology, [address] [phone] 12/12/2023 8:45 AM EST Nurse Only Hematology Oncology [facility] [address] [address] [place], Nurse Lab Hem/Onc [address] [place] [address] 12/12/2023 9:30 AM EST Office Visit Hematology Oncology [facility] [address] [phone] Kerri Foote MD [facility] [address] 12/12/2023 10:30 AM EST Hem/Onc Treatment Hematology Oncology [facility] [place] [address] [place] [address] [place], Chair 4 Hem/Onc [address] [place] [address] 05/06/2024 9:20 AM EDT Office Visit Neurology [address] [place] [address] [place] [address] Kathy Pryor PA-C [address] [place] [phone] Health Maintenance Due Date Last Done Comments [...] this encounter Medical Devices Implanted Type Area Mba Intern Device Identifier Shelf Expiration Date Model / Serial / Lot Power Port 8fr Sngl Lumen Plas - [id number] Implanted:Qty: 1 on 04/24/2021 at [facility] CR BARD : PERIPHERAL VASCULAR [id number] 02/24/2022 [id number] / / [id number] Port Implant W/8f Poly Cath - [id number] Implanted:Qty: 1 on 10/15/2023 at [facility] CR BARD : PERIPHERAL VASCULAR [id number] 03/27/2025 [id number] / / [id number] documented as of this encounter Additional Health [...] the patient have Health Care Power of Hot Plate Plywood Press Feeder? No Code Status History Code Status Date Activated Date Inactivated Comments Full Code 05/23/2021 12:21 PM 05/24/2021 9:38 PM This order reflects the patients wishes and were consensually agreed upon. Question Answer Comments Discussion of Advance Directives occurred with: Patient Healthcare Agents on File Name Relationship Healthcare Agent Relationshi p Communication Rose Mary Brothers Spouse Health Care Agent Care Teams Kitchen Hand Relationship Specialty Start Date End Date Matthew Herrmann PA-C [address] [place] [address] [phone] PCP - General Physician Float Builder 03/22/21 documented as of this encounter
--- OUTSIDE RECORDS SUMMARY | 2024-04-11 14:53 | External Medical Summary ---
Author Name Unknown Address Unknown Organization K01:LABORATORY [facility] [place] [address] [facility] [place] [address] Laboratory Report Ordering Provider Test Date Status POOJA LAWLER 12/04/2023 18:25:00 Final Observation Date Value Abnormality Reference (Units ) Status Body temperature 12/04/2023 18:25:00 37.0 (C) Final pH of Venous blood 12/04/2023 18:25:00 7.384 7.320-7.430 (units) Final Carbon dioxide [Partial pressure] in Venous blood 12/04/2023 18:25:00 47.0 40.0-60.0 (mmHg) Final Oxygen [Partial pressure] in Venous blood 12/04/2023 18:25:00 22.2 Below low normal 25.0-50.0 (mmHg) Final Base excess, Capillary 12/04/2023 18:25:00 2.5 Above high normal -2.0-2.0 (mmol/L) Final Hemoglobin [Mass/volume] in Blood by Oximetry 12/04/2023 18:25:00 9.5 Below low normal 14.0-16.8 (g/dL) Final Oxyhemoglobin, Venous (FO2HB) 12/04/2023 18:25:00 30.4 Below low normal 40.0-85.0 (% total Hgb) Final Carboxyhemoglobin 12/04/2023 18:25:00 0.9 <=1.5 (% total Hgb) Final Smokers: 0-9.0 % Methemoglobin 12/04/2023 18:25:00 0.7 <= 1.5 (% total Hgb) Final Deoxyhemoglobin/Hemoglo bin.total in Venous blood 12/04/2023 18:25:00 68.0 (% total Hgb) Final Oxygen content in Venous blood 12/04/2023 18:25:00 4.1 Below low normal 7.0-18.0 (%vol) F inal Bicarbonate, Venous, POC (i-STAT) 12/04/2023 18:25:00 27.4 23.0-31.0 (mmol/L) Final Performing Location LABORATORY [facility] [place] - [address] [facility] [address]
--- OUTSIDE RECORDS SUMMARY | 2024-04-11 14:53 | External Medical Summary ---
Author Name Unknown Address Unknown Organization K01:[facility]ORY [facility] [place] [address] [facility] [place] [address] Laboratory Report Ordering Provider Test Date Status SIMÓN COHEN 12/02/2023 10:03:00 Final Observation Date Value Abnormality Reference (Units ) Status SYNC LEUKOCYTES IN BLOOD BY AUTOMATED COUNT 12/02/2023 10:03:00 4.44 4.00-10.80 (K/uL) Final Segs 12/02/2023 10:03:00 56.6 40.0-75.0 (%) Final Lymphs % 12/02/2023 10:03:00 24.3 18.0-42.0 (%) Final Monos 12/02/2023 10:03:00 14.6 Above high normal 1.0-11.0 (%) Final Eosinophils 12/02/2023 10:03:00 2.9 0.0-6.0 (%) Final Basos 12/02/2023 10:03:00 0.7 0.0-2.0 (%) Final Immature Granulocyte, Percent 12/02/2023 10:03:00 0.9 0.0-2.0 (%) Final Absolute Segs 12/02/2023 10:03:00 2.51 1.80-7.70 (K/uL) Final Lymphs, absolute 12/02/2023 10:03:00 1.08 1.00-4.80 (K/ul) Final Monos, Abs 12/02/2023 10:03:00 0.65 0.00-1.10 (K/uL) Final Eos, Abs 12/02/2023 10:03:00 0.13 0.00-0.70 (K/uL) Final Basos, Abs 12/02/2023 10:03:00 0.03 0.00-0.20 (K/uL) Final Immature Granulocytes, Number 12/02/2023 10:03:00 0.04 0.00-0.20 (K/uL) Final Performing Location LABOR[place]ORY [facility] [place] [facility] [place] [address]
--- OUTSIDE RECORDS SUMMARY | 2024-04-11 14:53 | External Medical Summary ---
Author Name Unknown Address Unknown Organization K01:[facility] – [place] - [address] [place] [address] Laboratory Report Ordering Provider Test Date Status POOJA LAWLER 12/04/2023 18:25:00 Final Observation Date Value Abnormality Reference (Units ) Status BUN 12/04/2023 18:25:00 12 6-20 (mg/dL) Final Creatinine 12/04/2023 18:25:00 0.9 0.6-1.2 (mg/dL) Final Glomerular filtration rate/1.73 sq M.predicted [Volume Rate/Area] in Serum, Plasma or Blood by Creatinine-based formula (CKD-EPI) 12/04/2023 18:25:00 >90 >=60 (mL/min) Final eGFR is calculated based on the CKD-EPI 2020 equation SODIUM 12/04/2023 18:25:00 138 135-146 (m mol/L) Final Potassium 12/04/2023 18:25:00 3.3 Below low normal 3.5 -5.1 (mmol/L) Final Cl 12/04/2023 18:25:00 102 98-107 (mm ol/L) Final CO2 12/04/2023 18:25:00 25 22-32 (mmo l/L) Final Anion gap 12/04/2023 18:25:00 11 7-15 (mmol /L) Final Glucose 12/04/2023 18:25:00 122 Above high normal 70 -120 (mg/dL) Final Albumin 12/04/2023 18:25:00 4.1 3.8-5.0 (g /dL) Final AST (Aspartate aminotransferase) 12/04/2023 18:25:00 35 10-50 (U/L) Fin al Alk Phos 12/04/2023 18:25:00 81 35-130 (U/ L) Final Bilirubin, Total 12/04/2023 18:25:00 0.4 <=1 .2 (mg/dL) Final Calcium 12/04/2023 18:25:00 9.0 8.4-10.2 ( mg/dL) Final Protein 12/04/2023 18:25:00 7.1 6.0-8.3 (g /dL) Final ALT (Alanine aminotransferase) 12/04/2023 18:25:00 68 Above high normal 10-50 (U/L) Final Performing Location [facility] – [place] - [address] [facility] [address]
--- OUTSIDE RECORDS SUMMARY | 2024-04-11 14:53 | External Medical Summary | Summary of Care ---
Author Name Unknown Organization [facility] Address [address] [place] [address] Phone [phone] Care Team Providers Care Splicer Helper Name Role Phone Matthew Herrmann PA-C Primary Care Provider [phone] Reason for Visit * Reason Comments Follow Up * Evaluate & Treat - Unlimited Visits (Within 30 days (routine)) - Authorized Specialty Diagnoses / Procedures Referred By Yuli t Referred To Contact Cardiovascular Medicine / Cardiology Diagnoses Myocarditis, unspecified chronicity, unspecified myocarditis type (HCC) Coronary vasospasm (HCC) Matthew Herrmann PA-C [address] [place] [phone] Referral ID Status Reason Start Date Expiration Date Visits Requested Visits Authorized [id number] Authorized Specialty Services Required 3 [phone] Encounter Details Date Type Department Care Team (Late st Contact Info) Description 12/04/2023 11:00 AM EST Office Visit [facility]iology, [facility] [address] [place] [address] Santa Quintero CRNP [address] [place] [address] Coronary vasospasm (HCC)*; Pneumonia of left upper lobe due to infectious organism; 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); Recent cerebrovascular accident (CVA); Vertigo Allergies Active Allergy Reactions Criticality Noted Date [...] mRNA, LNP-s, No Pre serve, 2-Dose Series (Avolent) 09/23/2021 documented as of this encounter Social [...] Sign Reading Time Taken Comments Blood Pressure 118/80 12/04/2023 11:07 AM EST Pulse 92 12/04/2023 11:07 AM EST Temperature - - Respiratory Rate - - Oxygen Saturation 91% 12/04/2023 11:07 AM EST Inhaled Oxygen Concentration - - Weight 105.2 kg (232 lb) 12/04/2023 11:07 AM EST Height - - Body Mass Index 32.38 11/21/2023 7:59 AM EST documented in this encounter Functional [...] as of this encounter Progress Notes * Santa Quintero CRNP - 12/04/2023 11:12 AM EST 09/03/2023 Cardiology Follow Up Primary Supervisor Of Research: Dr. Collazo Cardiac Problems: Atypical chest pain (Negative stress, s/p [facility] 05/20/23 angiographically normal coronaries) 2. Stage IV non-small cell lung cancer 3. CVA in the setting of malignancy and Covid 19 (MRI showed acute right MCA territory infarct within right frontotemporal region, adjacent smaller acute infarcts within right frontal lobe. Small focus of cortical signal abnormality within the left frontoparietal region with associated laminar necrosis, favors subacute to chronic infarct) HPI: Johnmichael Brothers is a 53 year old male presents for close follow up. Patient was last seen by the undersigned on 09/03/23. He has a complex history with Stage IV non-small cell lung CA, compliacated by a CVA on 08/20/23 in which he was hospitalizaed at [facility]. This occurred in the setting of Covid and was thought to be s/t an hypercoagability state due to Covid and malignancy. When seen in August, he continued with persistent dizziness, vomiting spells, and persistent headaches Patient presents today feeling "ok". This gentleman has been through so much over the past year. Since last visit, the following has occurred: 1)increased growth of cancer in the lung as well as a spot on his spine and hip. Following very closely with Heme/Onc and has started a new regimen of chemotherapy. Next treatment in one week. 2)Seen and evaluated by [facility]. During course of examination, he demonstrated a strong head shake induced beating nystagmus which was not suppressed with held tilt. He was recommended forbrain MRI with thin DWI and FLAIR in the brainstem to further assess. MRI shows the following: IMPRESSION 1. Late subacute/early chronic ischemic infarction involving the right MCA territory with associated laminar necrosis and mild volume loss. 2. Multiple additional subacute to chronic infarcts scattered in both cerebral hemispheres. 3. No significant mass effect, midline shift, or hydrocephalus. 4. No convincing evidence of intracranial metastatic disease. Continued MRI surveillance is warranted. 5. Negative MRI evaluation of the IAC's. Since this time, his dizziness and vomiting has completely resolved. 3)Recurrent pneumonia requiring hospitalization. Currently on Second antibiotic course. 4) significant fluid retention with a unchanged echocardiogram, but has been on fci increaseddose steroid use. He denies any chest pain, pressure or palpitations. He received IV lasix on Saturday and has bee started of furosemide daily with plans for labs in one week. Reports good urine output. He has lost his hair since starting the new round of chemo and is frozen constantly, but overall isstable. states that since starting the next round of antibiotics that his breathing has started to improve. VS stable today. Reports compliance on all medications with no untoward effects. REVIEW OF SYSTEMS: See HPI for pertinent positives. All others negative other than those noted in the HPI. CONSTITUTIONAL: No change in weight, No weakness, No fatigue and No fevers, No sweats or chills. PULMONARY: No cough, sputum, or hemoptysis, No wheezing, No shortness or breath and No recent change in breathing. CARDIOVASCULAR: No chest pain, No dyspnea on exertion, No edema, No palpitations and No syncope. GASTROINTESTINAL: No abdominal pain, No change in bowel habits, No significant heartburn, No nausea, No vomiting, No diarrhea, No constipation, No blood in stools or black tarry stools. No dysphagia. HEMATOLOGIC: No abnormal bleeding and No bruising. NEUROLOGICAL: Normal balance, No headaches and No weakness. Review of patient's allergies indicates: Allergen Reactions [...] mouth in the morning. 30 Tablet 5 dexAMETHasone 4 MG Oral Tablet (Decadron) Take [...] mouth in the morning. 30 Tablet 0 Amoxicillin-Pot Clavulanate 875-125 MG Oral Tablet (Augmentin) Take 1 Tablet by mouth in the morning and 1 Tablet before bedtime. Do all this for 5 days. 10 Tablet 0 Doxycycline Hyclate 100 MG Oral Capsule Take 1 Capsule by mouth in the morning and 1 Capsule beforebedtime. Do all this for 5 days. 10 Capsule 0 Nitroglycerin 0.4 MG Sublingual Tablet Sublingual (Nitrostat) Place 1 Tablet under the tongue once as needed. As directed for chest pain No current facility-administered medications for this visit. 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 A+Ox3. HEENT: Normocephalic. Atraumatic. PERRL. EOMI. Conjunctiva and sclera clear. NECK: No carotid bruits. No JVD. Carotid upstrokes are brisk. Heart: RRR. S1 and S2 noted. No murmur. No rubs or gallops. PMI non displaced. Lungs: Clear to auscultation. No wheezes.No rhonchi. No rales. Abdomen: Normal bowel sounds. Soft. Nontender. No masses or organomegaly. No abdominal bruits. Extremities: No edema. No clubbing or cyanosis. Pulses: radial=2/4, posterior tibial=2/4, dorsalis pedis = 2/4. NEURO: No focal deficits. PSYCH: Appropriate affect and insight. DATA Labs & Imaging Reviewed Below: EKG 06/10/23 Normal sinus rhythm Possible Inferior infarct , age undetermined Abnormal ECG When compared with ECG of 14-NOV-2021 15:56, Inverted T waves have replaced nonspecific T wave abnormality in Inferior leads QT has shortened Ventricular Rate: 62 Left heart cath 05/20/23 No angiographically significant coronary disease Elevated troponin likely represents myocarditis Continue GDMT for primary prevention. Echocardiogram (08/20/23 [facility] due to CVA) LVEF normal 55-60% Left ventricular wall motion is normal Mild aortic regurgitation Stress Echocardiogram 05/13/23 Normal exercise stress echo. No echocardiographic or ECG evidence of ischemia. High workload achieved. ASSESSMENT/PLAN: 53 year old year old male Coronary vasospasm (HCC) (Primary) -reports complete resolution of symptoms. -doing well from a cardiac standpoint. -Continue low dose amlodipine Pneumonia of left upper lobe due to infectious organism -Continued management per primary team. 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 -recent echo shows no acute changes. Recent cerebrovascular accident (CVA) Vertigo -As noted above. -with likely prior infarct explaining his vertigo symptoms which have now resolved. -Continues on SC Lovenox as managed by Heme/Onc -Continues on Topamax per neurology for headaches Follow-up: Return in about 3 months (around 03/03/2024). | Check-out note: 3 month follow up. Must evelyne 60 minute appointment!! DISPOSITION: Follow up 3 months or if symptoms worsen/fail to improve. All questions were answered to the patients satisfaction. Patient advised to report to ED with any and all emergencies. The patient agrees to the above plan and will call with additional questions or concerns. DENISE Ramirez Cardiology, [facility] [address] [facility] [place] [address] I spent a total of 52 minutes on the date of service in preparation, delivery, and documentation ofthe care provided to John Brothers excluding any time spent in the performance of separately billed services. This chart was completed in part utilizing [employer] Speech Voice Recognition Software. Grammatical errors, random word insertions, pronoun errors, and incomplete sentences are an occasional consequence of this system due to software limitations, ambient noise, and hardware issues. Any formal questions or concerns about the content, text, or information contained within the body of this dictation should be directly addressed to the provider for clarification. documented in this encounter Nursing Notes * Carito Wick CMA - 12/04/2023 11:05 AM EST Examination Room: 1 Name: John Brothers Date of : (1970) Reason for Visit: 3m Interim Hospitalization(s): [facility] September- pneumonia, [place] Saturday Pneumonia Problems/Concerns: fatigued Chest Pain/SOB: SOB, has pneumonia and from chemo, denied chest pain My [facility] is a way you can talk to your provider online through e-mail. Would you like to sign up? I can activate it for you? ALREADY ACTIVE Patient was instructed to not get up on the exam table until directed and assisted by their provider; patient is to remain seated in the chair/ wheelchair/ exam table for fall prevention and safety reasons. Patient is aware to have assistance to step down off exam table with personnel. Patient voiced full comprehension of instructions. documented in this encounter Plan of Treatment Upcoming Encounters Date Type Department Care Team (Late st Contact Info) Description 12/05/2023 6:15 AM EST Anticoagulation Pharmacy Call Center WB [address] [facility] [place] [address] [facility] [address] [facility] [place] [phone] 12/05/2023 11:00 AM EST Office Visit [facility] [address] [place] [phone] Matthew Herrmann PA-C [address] [place] [address] 12/12/2023 8:45 AM EST Nurse Only Hematology Oncology [facility], [address] [address] [place], Nurse Lab Hem/Onc [address] [place] [address] 12/12/2023 9:30 AM EST Office Visit Hematology Oncology [facility], [address] [phone] Kerri Foote MD [address] [place] [address] 12/12/2023 10:30 AM EST Hem/Onc Treatment Hematology Oncology [facility], [address] [address] [place], Chair 4 Hem/Onc [address] [place] [place] [phone] 05/06/2024 9:20 AM EDT Office Visit Neurology [facility] [address] [facility] [place] [address] Kathy Pryor PA-C [address] [place] [address] Scheduled Referrals Name Type Priority Associated Diagnoses Orde r Schedule CARDIOLOGY REFERRAL OP Referral Within 30 days (routine) Myocarditis, unspecified chronicity, unspecified myocarditis type (HCC) Coronary vasospasm (HCC) Ordered: 10/24/2023 Health Maintenance Due Date Last Done Comments [...] this encounter Medical Devices Implanted Type Area Lease Purchase Truck Driver Device Identifier Shelf Expiration Date Model / Serial / Lot Power Port 8fr Sngl Lumen Plas - [id number] Implanted:Qty: 1 on 04/24/2021 at [facility] CR [facility]ARD : PERIPHERAL VASCULAR [id number] 02/24/2022 [id number] / / [id number] Port Implant W/8f Poly Cath - [id number] Implanted:Qty: 1 on 10/15/2023 at [facility] CR [employer]ARD : PERIPHERAL VASCULAR [id number] 03/27/2025 [id number] / / [id number] documented as of this encounter Visit Diagnoses Diagnosis Coronary vasospasm (HCC)- Primary Prinzmetal angina Pneumonia of left upper lobe due to infectious organism 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 No Code Status History Code Status Date Activated Date Inactivated Comments Full Code 05/23/2021 12:21 PM 05/24/2021 9:38 PM This order reflects the patients wishes and were consensually agreed upon. Question Answer Comments Discussion of Advance Directives occurred with: Patient Healthcare Agents on File Name Relationship Healthcare Agent [facility] p Communication Rose Mary Brothers Spouse Health Care Agent Care Teams Splicer Helper Relationship Specialty Start Date End Date Matthew Herrmann PA-C [address] [place] [phone] PCP - General Physician Adult Psychiatrist 03/22/21 documented as of this encounter
--- OUTSIDE RECORDS SUMMARY | 2024-04-11 14:53 | External Medical Summary ---
Author Name Unknown Address Unknown Organization K01:[facility] [place] [address] [place] [address] Laboratory Report Ordering Provider Test Date Status SIMÓN COHEN 12/02/2023 10:04:00 Final Warfarin Therapy
INR: 2 .0-3.0 conventional anticoagulation
INR: 2.5- 3.5 high intensity anticoagulation Observation Date Value Abnormality Reference (Units ) Status PT 12/02/2023 10:04:00 12.7 11.6-15.2 (seconds) Final INR 12/02/2023 10:04:00 1.0 0.8-1.2 Final Performing Location [facility] [place] [address] [place] [address]
--- OUTSIDE RECORDS SUMMARY | 2024-04-11 14:53 | External Medical Summary | Summary of Care ---
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) Procedures DE FOSAPREPITANT INJECTION DE INJ PEMBROLIZUMAB DE PACLITAXEL INJECTION Kerri Foote MD [address] [place] [address] Anc Hem/Onc [place] [address] [place] [address] Referral ID Status Reason Start Date Expiration Date V isits Requested Visits Authorized [id number] Authorized 09/30/2023 04/25/2024 999 [id number] Encounter Details Date Type Department Care Team (Latest Contact Info) Description 10/03/2023 11:00 AM EST Hem/Onc Treatment Hematology Oncology [facility], [place] [address] [place] [address] [place], Chair 14 Hem/Onc [address] [place] [address] Chemotherapy adverse reaction, initial encounter*; Chemotherapy induced [...] as of this encounter (statuses as of 11/30/2023) Medications Medication Sig Dispensed Refills Start Date [...] 09/23/2023 Active dexAMETHasone 4 MG Oral Tablet (Decadron)Indication [...] each treatment. 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 90 Tablet 1 08/22/2023 3 Discontinue d(Medicatio n List Clean Up) documented as of this encounter (statuses as of 11/30/2023) Active Problems Problem Noted Date Diagnosed Date [...] as of this encounter (statuses as of 11/30/2023) Resolved Problems Problem Noted Date Diagnosed Date Resolved Date MSSA bacteremia 08/01/2021 08/07/2021 Sepsis 08/01/2021 08/07/2021 COPD, group B, by GOLD 2017 classification 05/08/2021 06/21/2021 Overview: Per COPD GOLD Classification Obstructive lung disease 04/10/2021 Overview: Per COPD GOLD Classification documented as of this encounter (statuses as of 11/30/2023) Immunizations Name Administration Dates Next Due COVID-19 mRNA, LNP-s, No Pre serve, 2-Dose Series (EUDOWEB) 09/23/2021 documented as of this encounter Social [...] Nursing Notes * Nova Smith RN - 10/03/2023 12:44 PM EST Functional status at today's visit: Fully active, [...] during treatment. * Nova Smith RN - 10/03/2023 12:44 PM EST Patient is in chair 22 in old treatment room Safety and Risk for Injury Patient will remain free from injury. Ensure appropriate safety devices are available. Provide and maintain safe environment Goals: as above Possible barriers to meeting goals: IV pole, medications Stability of the patient: Moderately stable - low risk of patient condition declining or worsening Summary regarding today's goals: Patient remained free from injury throughout stay in our clinic . documented in this encounter Plan of Treatment Upcoming Encounters Date Type Department Care Team (Late st Contact Info) Description 12/02/2023 12:30 PM EST Laboratory [facility] [phone] [place], [facility] [place] [address] [place] [id number] 12/03/2023 6:15 AM EST Anticoagulation Pharmacy Call Center [address] [facility] [place] [address] [facility], [facility] [address] [facility] [place] [address] 12/04/2023 11:00 AM EST Office Visit Cardiology, [facility] [address] [place] [address] [place] CRNP [address] [facility] [place] [address] 12/05/2023 4:00 PM EST Appointment Radiology, [address] [phone] 12/12/2023 8:45 AM EST Nurse Only Hematology Oncology [facility], [address] [address] [place], Nurse Lab Hem/Onc [address] [place] [id number] 12/12/2023 9:30 AM EST Office Visit Hematology Oncology [facility], [address] [phone] Kerri Foote MD [facility] [place] [address] 12/12/2023 10:30 AM EST Hem/Onc Treatment Hematology Oncology [facility], [place] [address] [place] [address] Pacheco, Chair 4 Hem/Onc [address] [place] [id number] 05/06/2024 9:20 AM EDT Office Visit Neurology [address] [place] [address] [place] [address] Kathy Pryor PA-C [address] [place] [address] Health Maintenance Due Date Last Done Comments [...] this encounter Medical Devices Implanted Type Area Pluck Trimmer Device Identifier Shelf Expiration Date Model / Serial / Lot Power Port 8fr Sngl Lumen Plas - [id number] Implanted:Qty: 1 on 04/24/2021 at [facility] CR [facility]ARD : PERIPHERAL VASCULAR [id number] 02/24/2022 [id number] / / [id number] documented as of this encounter Results * (ABNORMAL) TSH WITH FREE T4 IF INDICATED (10/08/2023 1:16 PM EST) TSH 0.09(L) 0.27 - 4.20 uIU/mL 10/09/2023 3:52 AM EST LABORATORY [facility] Blood Venous blood specimen / Unknown Venipuncture / Unknown 10/08/2023 1:16 PM EST 10/08/2023 1:16 PM EST Kerri Foote MD [place] [address] documented in this encounter Visit Diagnoses Diagnosis [...] mg 50 mg, Oral, ONCE, On Ofe 10/03/23 at 1245, For 1 dose Given 10/03/2023 11:51 AM EST 50 mg Famotidine (Pepcid) tab 20 mg 20 mg, Oral, ONCE, On Ofe 10/03/23 at 1245, For 1 dose Given 10/03/2023 11:51 AM EST 20 mg Fosaprepitant Dimeglumine (Emend) 150 mg, ondansetron (Zofran) 16 mg, dexamethasone sodium phosphate 12 mg in NSS 250 mL Infusion 150 mg, IV Piggyback, ONCE, 1 dose, On Ofe 10/03/23 at 1245, Administer over 30 Minutes, Give 30 minutes prior to chemotherapy. Infuse over 30 minutes. Start Infusion 10/03/2023 12:30 PM EST 150 mg 550 mL/hr NSS infusion Intravenous, at 50 mL/hr, PRN, Starting on Ofe 10/03/23 at 1245, Until Ofe 10/03/23 at 2101, Maintenance line Start Infusion 10/03/2023 12:29 PM EST 50 mL/hr PACLitaxel (Taxol) 387 mg in NSS 500 mL infusion 387 mg (rounded from 386.75 mg = 175 mg/m2 2.21 m2 Treatment Plan BSA from Recorded weight), IV Piggyback, at 166.67 mL/hr Administer over 180 Minutes, Administer through 0.22 micron low protein binding filter!, ONCE, 1 dose, On Ofe 10/03/23 at 1345 Start Infusion 10/03/2023 1:37 PM EST 387 mg 166.67 mL/hr Pembrolizumab (Keytruda) 200 mg in NSS 100 mL infusion 200 mg, IV Piggyback, ONCE, 1 dose, On Ofe 10/03/23 at 1315, Administer over 30 Minutes, Infuse through 0.2 micron filter. Start Infusion 10/03/2023 1:01 PM EST 200 mg 200 mL/hr documented in this encounter Additional Health Concerns [...] patient have Health Care Power of Wireless Operator? No Code Status History Code Status Date Activated Date Inactivated Comments Full Code 05/23/2021 12:21 PM 05/24/2021 9:38 PM This order reflects the patients wishes and were consensually agreed upon. Question Answer Comments Discussion of Advance Directives occurred with: Patient Healthcare Agents on File Name Relationship Healthcare Agent [facility] p Communication Rose Mary Brothers Spouse Health Care Agent Care Teams Medical Scribe Relationship Specialty Start Date End Date Matthew Herrmann PA-C [address] [place] [id number] PCP - General Physician Sales Support Technician 03/22/21 documented as of this encounter
--- OUTSIDE RECORDS SUMMARY | 2024-04-11 14:53 | External Medical Summary | Summary of Care ---
Author Name Unknown Organization [facility] Address [address] [place] [address] Phone [phone] Care Team Providers Care Harness Cutter Name Role Phone Matthew Herrmann PA-C Primary Care Provider [phone] Reason for Visit * Reason Comments Short of Breath * Auth/Cert Specialty Diagnoses / Procedures Referred By Yuli t Referred To Contact Referral ID Status Reason Start Date Expiration Date Visits Re quested Visits Authorized [id number] Encounter Details Date Type Department Care Team (Late st Contact Info) Description 12/02/2023 9:03 AM EST - 12/02/2023 1:53 PM [facility] Emergency [facility] ([place] Emergency Department ([facility]) [address], [place] [id number] Pavan Razo, DO [address] [place] [address] Pneumonia of both lungs due to infectious organism, unspecified part of lung (Primary Dx); SOB (shortness of breath) Discharge Disposition: Home - Self Care Allergies [...] mRNA, LNP-s, No Pre serve, 2-Dose Series ([employer] ([place] 09/23/2021 documented as of this encounter Social [...] Sign Reading Time Taken Comments Blood Pressure 122/62 12/02/2023 1:00 PM EST Pulse 99 12/02/2023 1:00 PM EST Temperature 37.5 C (99.5 F) 12/02/2023 1:00 PM ES T Respiratory Rate 19 12/02/2023 1:00 PM EST Oxygen Saturation 93% 12/02/2023 1:00 PM EST Inhaled Oxygen Concentration - - Weight 101.2 kg (223 lb) 12/02/2023 8:54 AM EST Height - - Body Mass Index 31.12 11/21/2023 7:59 AM EST documented in this [...] 08/01/2021 documented as of this encounter Discharge Instructions * Discharge Instructions* Ladarius Bailon DO - 12/02/2023 1:23 PM EST ER Visit Summary: Today you were seen in the [facility] Emergency Department for shortness of breath. We are treating you for pneumonia. You got your first dose of antibiotics here and a prescription forAugmentin and doxycycline was sent to your pharmacy. You will take both twice a day for 5 days. Return Precautions: Please return to the emergency room if you develop fevers, severe headache, sudden weakness/numbness, shortness of breath, chest pain, severe abdominal pain/nausea/vomiting, or blood in your stool and/or urine. Follow Up/Continuation Of Care: Please follow up with your specialists at the appointments already scheduled. documented in this encounter ED Notes * Pavan Razo DO - 12/02/2023 9:05 AM EST HISTORY OF PRESENT ILLNESS John Brothers is a 53 year old male who presents to the ED for evaluation of Short of Breath. The patient was seen at 12/02/23 0856. PMHx NSC lung cancer on chemotherapy, DVT and PE on Lovenox injections, and prediabetes. His SOB started one week ago the day after his last chemotherapy session. Heis experiencing dyspnea with exertion where reports he has to sit down after walking a short distance. The SOB has been progressively worsening since then culminating in some respiratory distress while asleep last night. The SOB is worse when laying flat culminating in severe dyspnea necessitating use of an inhaler per early this morning. He also endorses worsening lower extremity edemaover the same time interval above his baseline and slight non-productive cough. He has had periodiclow-grade fevers over the last few days as well per with Tmax of 101F. No other symptoms including change in bowel/bladder, abdominal pain, flu-like symptoms, sick-contacts. Patient just discontinued daily dexamethasone on 11/21, was taking since August. He is on pembrolizumab and paclitaxel every 21 days starting on 10/03/23. He has had self-resolving episodes of fatigue, oral ulcers, and dyspnea lasting for a few days however this time it is persistent. Short of Breath Associated symptoms: cough, fever and headaches Associated symptoms: no abdominal pain, no chest pain, no rash, no sore throat, no vomiting and no wheezing Review of Systems Constitutional: Positive for chills, fatigue and fever. HENT: Positive for mouth sores. Negative for congestion, rhinorrhea, sneezing and sore throat. Respiratory: Positive for cough and shortness of breath. Negative for apnea, chest tightness, wheezing and stridor. Cardiovascular: Positive for leg swelling. Negative for chest pain and palpitations. Gastrointestinal: Positive for abdominal distention. Negative for abdominal pain, blood in stool, diarrhea, nausea and vomiting. Endocrine: Positive for cold intolerance. Genitourinary: Negative for dysuria, frequency, hematuria and urgency. Skin: Negative for pallor and rash. Neurological: Positive for headaches. The patient's allergies, past history, and medications were reviewed. PHYSICAL EXAM Initial Vitals (see all): BP 129/103 | Pulse 90 | Resp 22 | Temp 99.3 | O2 95 %, Room Air, None | Weight 101.15 kg | Height 180.3 cm | BMI 31.12 kg/m2 Initial Pain Assessment (see all): 0 (no pain)/10 ([facility] Adult Scale 0-10) Physical Exam Vitals reviewed. Constitutional: General: He is not in acute distress. Appearance: He is well-developed. He is obese. He is not ill-appearing, toxic- appearing or diaphoretic. HENT: Head: Normocephalic and atraumatic. Mouth/Throat: Mouth: Mucous membranes are moist. Pharynx: Oropharynx is clear. No pharyngeal swelling or oropharyngeal exudate. Neck: Vascular: No hepatojugular reflux or JVD. Cardiovascular: Rate and Rhythm: Normal rate and regular rhythm. Heart sounds: No murmur heard. No friction rub. No gallop. Pulmonary: Effort: Pulmonary effort is normal. No tachypnea or respiratory distress. Breath sounds: No stridor. No decreased breath sounds, wheezing, rhonchi or rales. Chest: Chest wall: No mass or tenderness. Abdominal: General: Bowel sounds are normal. Tenderness: There is no abdominal tenderness. There is no guarding. Musculoskeletal: Cervical back: Neck supple. Right lower leg: Edema present. Left lower leg: Edema present. Skin: General: Skin is warm and dry. Capillary Refill: Capillary refill takes less than 2 seconds. Coloration: Skin is not pale. Findings: No erythema. Nails: There is no clubbing. Neurological: Mental Status: He is alert. PROCEDURES AND TREATMENTS ED Orders | ED Results MEDICAL DECISION MAKING Nursing notes and vital signs were reviewed. ED Course as of 12/02/23 1336 Mon Dec 02, 2023 0938 XR Chest 2 Views Per my interpretation, mild pulmonary vascular congestion. [VT] 1022 Lactate, Whole Blood: 1.1 Normal. [VT] 1023 Blood Gas, Venous(!) Unremarkable. [VT] 1031 CBC with WBC Differential(!) WBC and Hgb mildly decreased, likley related [VT] 1117 Procalcitonin(!): 0.13 Mildly elevated. [VT] 1117 BNP, NT-Pro: 82 Normal. [VT] 1118 Potassium(!): 3.4 Mild hypokalemia. [VT] 1118 ALT(!): 73 At baseline. [VT] 1119 Urinalysis, Reflex to Culture (Not for Neutropenic Patients) Normal UA. [VT] 1119 CT Pulmonary Embolus with IV contrast Per my interpretation, diffuse opacities suggestive of pulmonary edema vs atypical infection. [VT] 1216 Troponin T, High Sensitivity: 13 Troponins x 2 flat. [VT] 1216 Respiratory Pathogen Panel, PCR Negative. [VT] 1216 CT Pulmonary Embolus with IV contrast "IMPRESSION 1. No evidence for pulmonary embolism. 2. Interval worsening of scattered infiltrates in the lungs, which may represent pneumonia. 3. No significant interval change of a 2.6 cm nodule in the left lower lobe. 4. Interval improvement of retroperitoneal adenopathy. 5. Similar appearance of blastic metastases in the bones." [VT] [address] PE: no acute PE. Mild pulmonary edema. Scattered infiltrates. [MO] 1220 EKG: My interpretation of the EKG is the following: Indication: Shortness of Breath. See EKG tracing for digital print out of ventricular rate, CT interval, QRS duration and P-R-T axes. I have reviewed these measurements and agree with them. Rhythm: Normal sinus rhythm. Other findings: normal EKG, normal axis, and no acute ischemic changes. Comparison to prior EKG: EKG shows no significant changes from a prior EKG. [MO] ED Course User Index [MO] Pavan Razo DO [VT] Ladarius Bailon DO Differential Diagnoses Based on my history, physical exam, and evaluation, the differential includes, but is not limited, to the following diagnoses: acute coronary syndrome, carbon monoxide poisioning, CHF, pneumonia, pulmonary embolism, URI and anemia. IMPRESSION: John is a 53yo male with PMHx of NSCLC metastatic to bone, prior PE currently on lovenox presenting with subacute, progressive, exertional dypsnea along with orthopnea, intermittent low grade fever,and worsening LE edema. He is hemodynamically stable, afebrile, with examination significant for 2+LE pitting edema. Bedside ultrasound identified B-lines without obvious pericardial effusion, systolic dysfunction, wall motion abnormalities, or evidence of RV dilation or strain. Given examination,CXR, and ultrasound features this is most likely consistent with CHF exacerbation, however difficult to differentiate from pneumonia with CXR alone. IV Lasix 40mg ordered for concerns for pulmonary ed anup and patient noted improvement of his dyspnea following multiple episodes of urination. CT PE study ordered and abdomen/pelvis added due to upcoming scans ordered for staging purposes and need to acutely differentiate infection from pulmonary edema from tumor burden. CT PE was negative for PE, but did show infectious process, so Augmentin and doxycycline was given here for complicated pneumonia in a patient with cancer. I discussed with the patient and his and they feel comfortable withdischarge, so prescriptions sent to his pharmacy. May continue lasix prn at home as well. Amount and/or Complexity of Data Reviewed Labs: ordered. Decision-making details documented in ED Course. Radiology: ordered. Decision-making details documented in ED Course. Risk OTC drugs. Prescription drug management. Clinical Impressions SOB (shortness of breath) Pneumonia of both lungs due to infectious organism, unspecified part of lung Disposition Discharged. The patient's condition at disposition was: stable. Discharge Medications Disp Refills Start End Amoxicillin-Pot Clavulanate 875-125 MG Oral Tablet (Augmentin) 10 Tablet 0 12/02/2023 12/07/2023 Sig - Route: Take 1 Tablet by mouth in the morning and 1 Tablet before bedtime. Do all this for 5 days. - Oral Class: ePrescribing Renewals Renewal requests to authorizing provider (Ladarius Bailon DO) <b>prohibited</b> Doxycycline Hyclate 100 MG Oral Capsule 10 Capsule 0 12/02/2023 12/07/2023 Sig - Route: Take 1 Capsule by mouth in the morning and 1 Capsule before bedtime. Do all this for 5days. - Oral Class: ePrescribing Renewals Renewal requests to authorizing provider (Ladarius Bailon DO) <b>prohibited</b> Pavan Razo was the attending physician who supervised the care of this patient. Dario Patterson, MS4 I attest that I have reviewed the student note and that the components of the history, the physicalexam, and the assessment and plan documented were performed in my presence with the student where Iverified the documentation and performed (or re-performed) the exam and medical decision making. Jacki Bailon DO ATTENDING ATTESTATION I have seen and examined this patient at 12/02/2023 visit. I have discussed the patient's management with the provider listed above and agree with the note, findings, and plan of care. I personally made/approved the management plan and take responsibility for patient management. Pavan Razo DO documented in this encounter Miscellaneous Notes * Pt Handout (on AVS) - Ladarius Bailon DO - 12/02/2023 1:34 PM EST Images from the original note were not included. [id number] Treating Pneumonia Pneumonia is an infection of one or both of the lungs. Pneumonia is caused by either a virus, fungus, or bacteria. Your treatment depends on the cause of your pneumonia. Pneumonia can be very serious, especially in babies, young children, and older adults. It?s alsoserious for those with other long-term health problems or weakened immune systems. Pneumonia is sometimes treated at home and sometimes in the hospital. Antibiotic medicines Antibiotics are needed for pneumonia caused by bacteria. They may be pills (oral medicines), shots (injections), or given by IV (intravenous) into a vein. If you are taking pills at home: Fill your prescription and start taking your medicine as soon as you can. You will likely start to feel better in a day or two. But don?t stop taking the antibiotic. Takeyour medicine as prescribed by your healthcare provider. If you stop too soon, your pneumonia may come back. Or the bacteria may become resistant to treatment in the future. Use a pill organizer or set an alarm to help you remember to take your medicine. Let your healthcare provider know if you have side effects. Take your medicine exactly as directed on the label. Talk with your provider or pharmacist if you have any questions. Antiviral medicines Antiviral medicine may be prescribed for pneumonia caused by a virus. For example, antiviral medicine may be prescribed for pneumonia caused by the flu virus. Antibiotics don't work against viruses. If you are taking antiviral medicine at home: Fill your prescription and start taking your medicine as soon as you can. Talk with your provider or pharmacist about possible side effects. Let your healthcare provider know if you have side effects. Take the medicine exactly as instructed. Talk with your provider or pharmacist if you have any questions. Use a pill organizer or set an alarm to help you remember to take your medicine. To relieve symptoms There are many medicines that can help relieve symptoms of pneumonia. Some are prescription and some are over the counter. Your healthcare provider may advise: Acetaminophen or ibuprofen to lower your fever and to reduce headache or other pain Cough medicine to loosen mucus or to reduce coughing Check with your healthcare provider or pharmacist before taking any eddd-jia-tnagamd medicines suchas cough and cold medicines. Some tvde-jax-xrrkede medicines should not be used if you have certainhealth conditions. Don't give aspirin to those under age 19. It can cause a serious illness called Yulisa syndrome. Special treatments If you are hospitalized for pneumonia, you may have other therapies, including: Inhaled medicines to help with breathing or chest congestion Supplemental oxygen to increase low oxygen levels or a machine such as a ventilator to help you breathe if your pneumonia is serious IV fluids or medicines Drink fluids and eat healthily You should eat healthily to help your body fight the infection. Drinking a lot of fluids helps to replace fluids lost from fever and to loosen mucus in your chest. Diet. Make healthy food choices. These include fruits and vegetables, lean meats and other proteins, 100% whole grain, and low-fat or no-fat dairy products. Fluids. Drink at least 6 to 8 tall glasses a day. Water and 100% fruit or vegetable juice are best. Get plenty of rest and sleep You may be more tired than normal for a while. It's important to get enough sleep at night. It?s also important to rest during the day. Talk with your healthcare provider if coughing or other symptoms are interfering with your sleep. Preventing the spread of germs The best thing you can do to prevent spreading germs is to wash your hands often. You should: Scrub your hands with soap and clean water for at least 20 seconds. Clean in between your fingers, the backs of your hands, and around your nails. Dry your hands on a separate towel or use paper towels. You should also: Keep alcohol-based hand senior engineer with at least 60% alcohol nearby. Use it when soap and water aren't available. Make sure you also clean surfaces that you touch. Use a product that kills all types of germs. Stay away from others until you are feeling better. Cover your nose and mouth when coughing or sneezing. Wash your hands afterwards. Get vaccinated Vaccines help protect you from getting pneumonia in the future. Ask your healthcare provider what vaccines are right for you and when you should get them. This may include the pneumococcal, flu, and COVID-19 vaccines. When to call your healthcare provider Call your healthcare provider if you have any of these: Symptoms get worse or don't get better New symptoms develop Fever continues Shortness of breath with normal daily activities Side effects from your medicine Increased mucus or mucus that is darker in color Coughing gets worse Call 911 Call 911 if any of these occur: Chest pain Lips or fingers are bluish, purple, or joseph in color Trouble breathing or wheezing Shortness of breath that gets worse and doesn't improve with treatment Feeling faint or dizzy Loss of consciousness Trouble talking or swallowing Feeling of doom Last Reviewed Date: 09/27/202219993589-3690 [employer]. All rights reserved. This information is not intended as a substitute for professional medical care. Always follow your healthcare professional's instructions. documented in this encounter Plan of Treatment Upcoming Encounters Date Type Department Care Team (Late st Contact Info) Description 12/03/2023 6:15 AM EST Anticoagulation Pharmacy Call Center [address] [place] [address] [facility] [address] [place] [address] 12/04/2023 11:00 AM EST Office Visit [facility], [facility] [address] [facility] [place] [address] Santa Quintero CRNP [address] [place] [address] 12/05/2023 4:00 PM EST Appointment Radiology, [address] [phone] 12/12/2023 8:45 AM EST Nurse Only Hematology Oncology [facility], [address] [address] P[place]co, Nurse Lab Hem/Onc [address] [place] [address] 12/12/2023 9:30 AM EST Office Visit Hematology Oncology [facility] [place] [address] [place] [address] Kerri Foote MD [address] [place] [address] 12/12/2023 10:30 AM EST Hem/Onc Treatment Hematology Oncology [facility], [place] [address] [place] [address] Pacheco, Chair 4 Hem/Onc [facility] [place] [address] 05/06/2024 9:20 AM EDT Office Visit [facility] [address] [place] [address] Kathy Pryor PA-C [address] [facility] [place] [address] Pending Results Name Type Priority Associated Diagnoses Date /Time CULTURE, BLOOD Lab Routine 12/02/2023 10:03 AM EST CULTURE, BLOOD Lab Routine 12/02/2023 10:07 AM EST Scheduled Orders Name Type Priority Associated Diagnoses Orde r Schedule EKG EKG STAT SOB (shortness of breath) Perform Now for 1 Occurrences starting 12/02/2023 until 12/02/2023 Health Maintenance Due Date Last Done Comments [...] this encounter Medical Devices Implanted Type Area Department Editor Device Identifier Shelf Expiration Date Model / Serial / Lot Power Port 8fr Sngl Lumen Plas - [id number] Implanted:Qty: 1 on 04/24/2021 at [facility] : PERIPHERAL VASCULAR [id number] 02/24/2022 [id number] / / [id number] Port Implant W/8f Poly Cath - [id number] Implanted:Qty: 1 on 10/15/2023 at [facility] : PERIPHERAL VASCULAR [id number] 03/27/2025 [id number] / / [id number] documented as of this encounter Procedures Procedure Name Priority Date/Time Associated Diagnosis Comments TROPONIN T, HIGH SENSITIVITY STAT 12/02/2023 11:[address] PULMONARY EMBOLUS W CONTRAST STAT 12/02/2023 10:[address] ABD/PELVIS W IV CONTRAST - WO ORAL CONTRAST STAT 12/02/2023 10:44 AM EST CULTURE, BLOOD Routine 12/02/2023 10:07 AM EST PT INR STAT 12/02/2023 10:04 AM EST LACTATE, WHOLE BLOOD WITH REFLEX IF ABNORMAL STAT 12/02/2023 10:03 AM EST DIFFERENTIAL, AUTOMATED STAT 12/02/2023 10:03 AM EST TROPONIN T, HIGH SENSITIVITY STAT 12/02/2023 10:03 AM EST PROCALCITONIN STAT 12/02/2023 10:03 AM EST BLOOD GAS, VENOUS STAT 12/02/2023 10: 03 AM EST BNP (NT-PROBNP) STAT 12/02/2023 10:03 AM EST COMPREHENSIVE METABOLIC PANEL STAT 12/02/2023 10:03 AM EST ABO/RH STAT 12/02/2023 10:03 AM EST TYPE AND SCREEN STAT 12/02/2023 10:03 AM EST CBC STAT 12/02/2023 10:03 AM EST CULTURE, BLOOD Routine 12/02/2023 10:03 AM EST CBC STAT 12/02/2023 10:03 AM EST URINALYSIS, REFLEX TO CULTURE STAT 12/02/2023 9:43 AM EST URINALYSIS, REFLEX TO CULTURE (CUP ONLY) STAT 12/02/2023 9:43 AM EST URINALYSIS, REFLEX TO CULTURE (NOT FOR NEUTROPENIC PATIENTS) STAT 12/02/2023 9:43 AM EST XR CHEST 2 VIEWS STAT 12/02/2023 9:36 AM EST RESPIRATORY PATHOGEN PANEL, PCR STAT 12/02/2023 9:06 AM EST documented in this encounter Results * TROPONIN T, HIGH SENSITIVITY (12/02/2023 11:20 AM EST) Troponin T, High Sensitivity 13 <=22 ng/L 12/02/2023 11:47 AM EST LAB[facility]ORY [facility] Blood Venous blood specimen / Unknown Venipuncture / Unknown 12/02/2023 11:20 AM EST 12/02/2023 11:25 AM EST Ladarius Bailon DO LAB BLOOD OR DERABLES [facility] [address] [place] [address] * CT ABD/PELVIS W IV CONTRAST - WO ORAL CONTRAST (12/02/2023 10:44 AM EST) Anatomical Region Laterality Modality Body, Abdomen, Pelvis Computed T omography 12/02/2023 11:5 0 AM EST Impressions 12/02/2023 11:47 AM EST IMPRESSION 1. No evidence for pulmonary embolism. 2. Interval worsening of scattered infiltrates in the lungs, which may represent pneumonia. 3. No significant interval change of a 2.6 cm nodule in the left lower lobe. 4. Interval improvement of retroperitoneal adenopathy. 5. 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 Narrative 12/02/2023 11:47 AM EST EXAM EXAM: CT PULMONARY EMBOLUS W CONTRAST; [...] was performed during dynamic intravenous contrast administration. Scanning was performed during peak enhancement of pulmonary arteries. [...] now measures 0.8 cm. No new adenopathy is identified. A prominent periportal lymph node appears unchanged. [...] of blastic lesion T12 and the pelvis. Procedure Note Go, Tacho Winston MD - 12/02/2023 EXAM EXAM: CT PULMONARY EMBOLUS W CONTRAST; CT ABD/PELVIS W IV CONTRAST - WOORAL CONTRAST DATE and TIME: 12/02/2023 10:44 am HISTORY CLINICAL INFORMATION: Rule out PE vs CHF vs PNA vs increased tumor burden,new exertional dyspnea and orthopnea; Rule out metastatic disease TECHNIQUE Oral Contrast: Oral contrast was not administered. IV Contrast: IV contrast used. A CT pulmonary angiogram was performed during dynamic intravenous contrastadministration. Scanning was performed during peak enhancement ofpulmonary arteries. Multi planar reformatted and MIP reformatted imagesof the chest were created and reviewed. Scanning of the abdomen and pelvis was performed during the portal venousphase of enhancement. COMPARISON: CT scan of the chest, abdomen and pelvis from 09/16/2023. FINDINGS LINES AND DEVICES: There is a port in the right chest wall. The line fromthe port terminates in the superior cavoatrial junction. LUNGS: Again identified is a nodule in the right lower lobe measuring 1.1x 2.6 cm. There are multiple scattered patchy airspace and ground-glassopacities in the lungs, some of these are peribronchial in distribution,which appear worse compared to the prior examination. There are scatteredill-defined nodular opacities in the lungs as well. These findings mayrepresent pneumonia. LARGE AIRWAYS: Unremarkable PLEURA: Unremarkable VESSELS: There is no pulmonary embolism. HEART: The right ventricle is not dilated relative to ventricle. MEDIASTINUM AND GENOVEVA: Unremarkable CHEST WALL/SOFT TISSUES: Unremarkable ABDOMEN/PELVIS: LIVER: Again identified is a tiny hypodense lesion in the right hepaticlobe which is too small to accurately characterize but may represent acyst. BILE DUCTS: Unremarkable GALLBLADDER: Unremarkable PANCREAS: Unremarkable SPLEEN: Unremarkable ADRENALS: Unremarkable KIDNEYS/URETERS: Unremarkable BLADDER: Unremarkable BOWEL: Unremarkable LYMPH NODES: Previously described retroperitoneal adenopathy is improved.For example, a left periaortic lymph node previously measuring 1.3 cm inshort axis now measures 0.8 cm. No new adenopathy is identified. Aprominent periportal lymph node appears unchanged. VESSELS: Unremarkable REPRODUCTIVE ORGANS: Unremarkable PERITONEUM/RETROPERITONEUM: Unremarkable ABDOMINAL WALL/SOFT TISSUES: There is a small fat containing umbilicalhernia. BONES: There are degenerative changes in the spine. There is mildanterolisthesis of L5 on S1 secondary to bilateral L5 pars defects.Similar appearance of a blastic lesion at L1 and L4. Similar appearance ofblastic lesion T12 and the pelvis. IMPRESSION IMPRESSION 1. No evidence for pulmonary embolism. 2. Interval worsening of scattered infiltrates in the lungs, which mayrepresent pneumonia. 3. No significant interval change of a 2.6 cm nodule in the left lowerlobe. 4. Interval improvement of retroperitoneal adenopathy. 5. 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 Ladarius Bailon DO RAD CT * CT PULMONARY EMBOLUS W CONTRAST (12/02/2023 10:44 AM EST) Anatomical Region Laterality Modality Chest, Cardio, Body Computed Wojciech ography 12/02/2023 11:5 0 AM EST Impressions 12/02/2023 11:47 AM EST IMPRESSION 1. No evidence for pulmonary embolism. 2. Interval worsening of scattered infiltrates in the lungs, which may represent pneumonia. 3. No significant interval change of a 2.6 cm nodule in the left lower lobe. 4. Interval improvement of retroperitoneal adenopathy. 5. 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 Narrative 12/02/2023 11:47 AM EST EXAM EXAM: CT PULMONARY EMBOLUS W CONTRAST; [...] was performed during dynamic intravenous contrast administration. Scanning was performed during peak enhancement of pulmonary arteries. [...] now measures 0.8 cm. No new adenopathy is identified. A prominent periportal lymph node appears unchanged. [...] of blastic lesion T12 and the pelvis. Procedure Note Tacho Phillips MD - 12/02/2023 EXAM EXAM: CT PULMONARY EMBOLUS W CONTRAST; CT ABD/PELVIS W IV CONTRAST - WOORAL CONTRAST DATE and TIME: 12/02/2023 10:44 am HISTORY CLINICAL INFORMATION: Rule out PE vs CHF vs PNA vs increased tumor burden,new exertional dyspnea and orthopnea; Rule out metastatic disease TECHNIQUE Oral Contrast: Oral contrast was not administered. IV Contrast: IV contrast used. A CT pulmonary angiogram was performed during dynamic intravenous contrastadministration. Scanning was performed during peak enhancement ofpulmonary arteries. Multi planar reformatted and MIP reformatted imagesof the chest were created and reviewed. Scanning of the abdomen and pelvis was performed during the portal venousphase of enhancement. COMPARISON: CT scan of the chest, abdomen and pelvis from 09/16/2023. FINDINGS LINES AND DEVICES: There is a port in the right chest wall. The line fromthe port terminates in the superior cavoatrial junction. LUNGS: Again identified is a nodule in the right lower lobe measuring 1.1x 2.6 cm. There are multiple scattered patchy airspace and ground-glassopacities in the lungs, some of these are peribronchial in distribution,which appear worse compared to the prior examination. There are scatteredill-defined nodular opacities in the lungs as well. These findings mayrepresent pneumonia. LARGE AIRWAYS: Unremarkable PLEURA: Unremarkable VESSELS: There is no pulmonary embolism. HEART: The right ventricle is not dilated relative to ventricle. MEDIASTINUM AND GENOVEVA: Unremarkable CHEST WALL/SOFT TISSUES: Unremarkable ABDOMEN/PELVIS: LIVER: Again identified is a tiny hypodense lesion in the right hepaticlobe which is too small to accurately characterize but may represent acyst. BILE DUCTS: Unremarkable GALLBLADDER: Unremarkable PANCREAS: Unremarkable SPLEEN: Unremarkable ADRENALS: Unremarkable KIDNEYS/URETERS: Unremarkable BLADDER: Unremarkable BOWEL: Unremarkable LYMPH NODES: Previously described retroperitoneal adenopathy is improved.For example, a left periaortic lymph node previously measuring 1.3 cm inshort axis now measures 0.8 cm. No new adenopathy is identified. Aprominent periportal lymph node appears unchanged. VESSELS: Unremarkable REPRODUCTIVE ORGANS: Unremarkable PERITONEUM/RETROPERITONEUM: Unremarkable ABDOMINAL WALL/SOFT TISSUES: There is a small fat containing umbilicalhernia. BONES: There are degenerative changes in the spine. There is mildanterolisthesis of L5 on S1 secondary to bilateral L5 pars defects.Similar appearance of a blastic lesion at L1 and L4. Similar appearance ofblastic lesion T12 and the pelvis. IMPRESSION IMPRESSION 1. No evidence for pulmonary embolism. 2. Interval worsening of scattered infiltrates in the lungs, which mayrepresent pneumonia. 3. No significant interval change of a 2.6 cm nodule in the left lowerlobe. 4. Interval improvement of retroperitoneal adenopathy. 5. 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 Matildechristophe Levili Bailon DO RAD CT * PT INR (12/02/2023 10:04 AM EST) Prothrombin Time 12.7 11.6 - 15.2 seconds 12/02/2023 10:37 AM EST LAB[facility] INR 1.0 0.8 - 1.2 12/02/2023 10:37 AM EST [facility] [place] Blood Venous blood specimen / Unknown Venipuncture / Unknown 12/02/2023 10:04 AM EST 12/02/2023 10:16 AM EST Narrative [facility] [place] [facility] - 12/02/2023 10:37 AM EST Warfarin Therapy INR: 2.0-3.0 conventional anticoagulation INR: 2.5-3.5 high intensity anticoagulation Betzy Pak PA-C LAB BLOOD ORDERABL ES LAB[facility]ATORY [facility] [address], [place] [id number] * ABO/RH (12/02/2023 10:03 AM EST) ABO A 12/02/2023 12:12 PM EST [facility] [place] BLOOD BANK Rh Negative 12/02/2023 12:12 PM EST LAB[facility] [place] BLOOD BANK Blood Venous blood specimen / Unknown Venipuncture / Unknown 12/02/2023 10:03 AM EST 12/02/2023 10:16 AM EST Betzy Pak PA-C LAB BLOOD BANK [facility] T ORDERABLES [facility] BLOOD BANK [address] [place] [address] * (ABNORMAL) DIFFERENTIAL, AUTOMATED (12/02/2023 10:03 AM EST) WBC 4.44 4.00 - 10.80 K/uL 12/02/2023 10:25 AM EST [facility] Neutrophils % 56.6 40.0 - 75.0 % 12/02/2023 10:25 AM EST [facility] Lymphocytes % 24.3 18.0 - 42.0 % 12/02/2023 10:25 AM EST [facility] Monocytes % 14.6(H) 1.0 - 11.0 % 12/02/2023 10:25 AM EST [facility] Eosinophils % 2.9 0.0 - 6.0 % 12/02/2023 10:25 AM EST [facility] Basophils % 0.7 0.0 - 2.0 % 12/02/2023 10:25 AM EST [facility] Immature Granulocytes % 0.9 0.0 - 2.0 % 12/02/2023 10:25 AM EST [facility] Absolute Neutrophils 2.51 1.80 - 7.70 K/uL 12/02/2023 10:25 AM EST [facility] Absolute Lymphocytes 1.08 1.00 - 4.80 K/ul 12/02/2023 10:25 AM EST [facility] Absolute Monocytes 0.65 0.00 - 1.10 K/uL 12/02/2023 10:25 AM EST [facility] Absolute Eosinophils 0.13 0.00 - 0.70 K/uL 12/02/2023 10:25 AM EST [facility] Absolute Basophils 0.03 0.00 - 0.20 K/uL 12/02/2023 10:25 AM EST [facility] Absolute Immature Granulocytes 0.04 0.00 - 0.20 K/uL 12/02/2023 10:25 AM EST [facility] Blood Venous blood specimen / Unknown Venipuncture / Unknown 12/02/2023 10:03 AM EST 12/02/2023 10:16 AM EST Betzy Pak PA-C LAB BLOOD ORDERABL ES Performing Organization Address City/[facility]/ZIP Co de Phone Number LAB[facility]ATORY [facility] [address] [place] [address] * (ABNORMAL) CBC (12/02/2023 10:03 AM EST) WBC 4.44 4.00 - 10.80 K/uL 12/02/2023 10:25 AM EST [facility] RBC 3.98 4.50 - 5.25 M/uL 12/02/2023 10:25 AM EST [facility] HGB 12.8(L) 14.0 - 16.8 g/dL 12/02/2023 10:25 AM EST [facility] HCT 38.6(L) 40.0 - 48.4 % 12/02/2023 10:25 AM EST [facility] MCV 97.0 82.0 - 99.5 fL 12/02/2023 10:25 AM EST [facility] MCH 32.2 27.0 - 34.0 pg 12/02/2023 10:25 AM EST [facility] MCHC 33.2 32.0 - 36.0 g/dL 12/02/2023 10:25 AM EST [facility] RDW 16.9 11.5 - 15.5 % 12/02/2023 10:25 AM EST [facility] PLT 274 140 - 400 K/uL 12/02/2023 10:25 AM EST [facility] MPV 9.5 6.6 - 11.1 fL 12/02/2023 10:25 AM EST [facility] nRBCs 1(H) <=0 /100 WBCs 12/02/2023 10:25 AM EST [facility] Blood Venous blood specimen / Unknown Venipuncture / Unknown 12/02/2023 10:03 AM EST 12/02/2023 10:16 AM EST Betzy Pak PA-C LAB BLOOD ORDERABL ES Performing Organization Address City/[facility]/ZIP Co de Phone Number LAB[facility]ORY [facility] [address] [place] [address] * (ABNORMAL) BLOOD GAS, VENOUS (12/02/2023 10:03 AM EST) Temperature 37.0 C 12/02/2023 10:21 AM EST [facility] pH, Venous 7.416 7.320 - 7.430 units 12/02/2023 10:21 AM EST [facility] pCO2, Venous 45.3 40.0 - 60.0 mmHg 12/02/2023 10:21 AM EST [facility] pO2, Venous 20.7(L) 25.0 - 50.0 mmHg 12/02/2023 10:21 AM EST [facility] Base Excess, Venous 3.9(H) -2.0 - 2.0 mmol/L 12/02/2023 10:21 AM EST [facility] Hemoglobin, Whole Blood 13.4(L) 14.0 - 16.8 g/dL 12/02/2023 10:21 AM EST [facility] Oxyhemoglobin, Venous 29.9(L) 40.0 - 85.0 % total Hgb 12/02/2023 10:21 AM EST [facility] Carboxyhemoglobi n, Whole Blood 0.7 <=1.5 % total Hgb 12/02/2023 10:21 AM EST [facility] Comment:Smokers: 0-9.0 % Methemoglobin, Whole Blood 0.7 <=1.5 % total Hgb 12/02/2023 10:21 AM EST [facility] Reduced Hemoglobin, Venous 68.7 % total Hgb 12/02/2023 10:21 AM EST [facility] O2 Content, Venous 5.6(L) 7.0 - 18.0 %vol 12/02/2023 10:21 AM EST [facility] Bicarbonate, Whole Blood 28.6 23.0 - 31.0 mmol/L 12/02/2023 10:21 AM EST [facility] Blood Venous blood specimen / Unknown Venipuncture / Unknown 12/02/2023 10:03 AM EST 12/02/2023 10:15 AM EST Betzy Pak PA-C LAB BLOOD ORDERABL ES LAB[facility] [address] [place] [address] * (ABNORMAL) PROCALCITONIN (12/02/2023 10:03 AM EST) [facility] Procalcitonin 0.13(H) <0.10 ng/mL 12/02/2023 10:50 AM EST LAB[facility]ATORY [facility] [place] [facility] Blood Venous blood specimen / Unknown Venipuncture / Unknown 12/02/2023 10:03 AM EST 12/02/2023 10:16 AM EST Narrative [facility]ORY [facility] [place] - 12/02/2023 10:50 AM EST Less than 0.5 ng/mL: Low risk for progression to sepsis. Review patients condition for localized infections. 0.5 to 2.0 ng/mL: Intermediate risk for progresion to sepsis. Review underlying conditions. Recommend repeat PCT after 6 hours has elapsed. Greater than 2.0 ng/mL: high risk for progression to sepsis unless other causes are known. Betzy Pak PA-C LAB BLOOD ORDERABL ES LAB[facility]ATORY [facility] [address] [place] [address] * TYPE AND SCREEN (12/02/2023 10:03 AM EST) [facility] ABO A 12/02/2023 11:26 AM EST [facility] BLOOD BANK Rh Negative 12/02/2023 11:26 AM EST [facility] BLOOD BANK Red Blood Cell Antibody Screen Negative 12/02/2023 11:26 AM EST [facility] BLOOD BANK Specimen Expiration Date 12/05/2023 23:59 12/02/2023 11:26 AM EST LAB[facility] BLOOD BANK Blood Venous blood specimen / Unknown Venipuncture / Unknown 12/02/2023 10:03 AM EST 12/02/2023 10:16 AM EST Betzy Pak PA-C LAB BLOOD BANK [facility] T ORDERABLES [facility] BLOOD BANK [address] [place] [address] * TROPONIN T, HIGH SENSITIVITY (12/02/2023 10:03 AM EST) Troponin T, High Sensitivity 13 <=22 ng/L 12/02/2023 10:50 AM EST [facility] Blood Venous blood specimen / Unknown Venipuncture / Unknown 12/02/2023 10:03 AM EST 12/02/2023 10:16 AM EST Betzy Pak PA-C LAB BLOOD ORDERABL ES Performing Organization Address City/[facility]/ZIP Co de Phone Number LABORATORY [address] [address] * LACTATE, WHOLE BLOOD WITH REFLEX IF ABNORMAL (12/02/2023 10:03 AM EST) Lactate, Whole Blood 1.1 0.4 - 2.0 mmol/L 12/02/2023 10:21 AM EST [facility] Blood Venous blood specimen / Unknown Venipuncture / Unknown 12/02/2023 10:03 AM EST 12/02/2023 10:15 AM EST Betzy Pak PA-C LAB BLOOD ORDERABL ES Performing Organization Address [facility]/ZIP Co de Phone Number LABORATORY [address] [address] * BNP, NT-PRO (12/02/2023 10:03 AM EST) BNP, NT-Pro 82 <300 pg/mL 12/02/2023 10:50 AM EST [facility]ORY [facility] [place] Blood Venous blood specimen / Unknown Venipuncture / Unknown 12/02/2023 10:03 AM EST 12/02/2023 10:16 AM EST Narrative LAB[facility]ATORY [facility] [place] - 12/02/2023 10:50 AM EST Exclude Heart Failure: <300 pg/mL Diagnose Heart Failure: Age <50 yr: >450 pg/mL 50-75 yr: >900 pg/mL >75 yr: >1800 pg/mL GFR is 30-59 mL/min: >1200 pg/mL or Age-adjusted values GFR <30 mL/min: do not use, not reliable Prognostic threshold: 1000 pg/mL Betzy Pak PA-C LAB BLOOD ORDERABL ES LABORATORY [facility] [address] [place] [address] * (ABNORMAL) COMPREHENSIVE METABOLIC PANEL (12/02/2023 10:03 AM EST) BUN 8 6 - 20 mg/dL 12/02/2023 10:50 AM EST [facility] Creatinine 1.0 0.6 - 1.2 mg/dL 12/02/2023 10:50 AM EST [facility] Estimated Glomerular Filtration Rate >90 >=60 mL/min 12/02/2023 10:50 AM EST [facility] Comment:eGFR is calculated b ased on the CKD-EPI 2020 equation Sodium 140 135 - 146 mmol/L 12/02/2023 10:50 AM EST [facility] Potassium 3.4(L) 3.5 - 5.1 mmol/L 12/02/2023 10:50 AM EST [facility] Chloride 102 98 - 107 mmol/L 12/02/2023 10:50 AM EST [facility] CO2 27 22 - 32 mmol/L 12/02/2023 10:50 AM EST [facility] Anion Gap 11 7 - 15 mmol/L 12/02/2023 10:50 AM EST [facility] Glucose 114 70 - 120 mg/dL 12/02/2023 10:50 AM EST [facility] Albumin 3.9 3.8 - 5.0 g/dL 12/02/2023 10:50 AM EST [facility] AST 36 10 - 50 U/L 12/02/2023 10:50 AM EST [facility] Alkaline Phosphatase 75 35 - 130 U/L 12/02/2023 10:50 AM EST [facility] Bilirubin, Total 0.7 <=1.2 mg/dL 12/02/2023 10:50 AM EST [facility] Calcium 8.9 8.4 - 10.2 mg/dL 12/02/2023 10:50 AM EST [facility] Protein 6.8 6.0 - 8.3 g/dL 12/02/2023 10:50 AM EST [facility] ALT 73(H) 10 - 50 U/L 12/02/2023 10:50 AM EST LABORATORY [facility] Blood Venous blood specimen / Unknown Venipuncture / Unknown 12/02/2023 10:03 AM EST 12/02/2023 10:16 AM EST Betzy Pak PA-C LAB BLOOD ORDERABL ES LAB[facility]ATORY [facility] [facility] [address] [place] [address] * URINALYSIS, REFLEX TO CULTURE (12/02/2023 9:43 AM EST) Color, Urine Colorless Colorless, Light Yellow, Yellow, Dark Yellow 12/02/2023 10:38 AM EST [facility] Clarity, Urine Clear Clear 12/02/2023 10:38 AM EST [facility] Glucose, Urine Negative Negative mg/dL 12/02/2023 10:38 AM EST [facility] Bilirubin, Urine Negative Negative 12/02/2023 10:38 AM EST [facility] Ketone, Urine Negative Negative mg/dL 12/02/2023 10:38 AM EST LABORATORY C Specific [place], Urine 1.007 1.003 - 1.030 12/02/2023 10:38 AM EST [facility] Blood, Urine Negative Negative 12/02/2023 10:38 AM EST [facility] pH, Urine 7.5 5.0 - 7.5 Units 12/02/2023 10:38 AM EST [facility] Protein, Urine Negative Negative mg/dL 12/02/2023 10:38 AM EST [facility] Urobilinogen, Urine Normal Normal mg/dL 12/02/2023 10:38 AM EST [facility] Nitrite, Urine Negative Negative 12/02/2023 10:38 AM EST [facility] Esterase, Urine Negative Negative 12/02/2023 10:38 AM EST [facility] RBC, Urine 0-2 0 - 2 /HPF 12/02/2023 10:38 AM EST [facility] WBC, Urine 0-2 0 - 2 /HPF 12/02/2023 10:38 AM EST [facility] Bacteria, Urine 0-25 0 - 25 /HPF 12/02/2023 10:38 AM EST [facility] Culture, Urine 12/02/2023 10:38 AM EST [facility] Comment:Culture not indicate d by urinalysis results Urine Urine specimen obtained by clean catch procedure / Unknown 12/02/2023 9:43 AM EST 12/02/2023 10:22 AM EST Betzy Pak PA-C LAB URINE ORDERABL ES Performing Organization Address [facility] Co de Phone Number LABORATORY [facility] [address] [place] [address] * URINALYSIS, REFLEX TO CULTURE (CUP ONLY) (12/02/2023 9:43 AM EST) Urinalysis, Reflex to Culture Specimen Specimen collected and received 12/02/2023 12:01 PM EST LAB[facility]ORY [facility] Urine Urine specimen obtained by clean catch procedure / Unknown 12/02/2023 9:43 AM EST 12/02/2023 10:22 AM EST Betzy Pak PA-C LAB URINE ORDERABL ES Performing Organization Address [facility] de Phone Number LABORATORY [address] [address] * XR CHEST 2 VIEWS (12/02/2023 9:36 AM EST) Anatomical Region Laterality Modality Chest Digital Radiogra phy 12/02/2023 11:2 9 AM EST Impressions 12/02/2023 4:12 PM EST IMPRESSION 1. Left upper lobe ill-defined density likely infectious, inflammatory, or metastatic given history of lung cancer, recommend continued follow-up. 2. Left lower lung nodule better seen on prior CT. I have personally reviewed this examination and agree with the resident/fellow physician's interpretation. Narrative 12/02/2023 4:12 PM EST EXAM XR CHEST 2 VIEWS - 12/02/2023 9:36 am HISTORY sob, h/o lung ca TECHNIQUE Frontal and lateral radiographs of the chest were obtained. COMPARISON CT chest, abdomen pelvis 09/16/2023. FINDINGS FOREIGN BODIES, SUPPORT TUBES, LINES, DEVICES: Right chest MediPort with tip terminating at the distal superior vena cava. LUNGS, PLEURA: Bibasilar streaky opacity, left greater than right, likely atelectasis versus scarring. Left lower lung ill-defined density may correspond to lung nodule seen on prior CT. Ill-defined left upper lung peripheral density likely inflammatory/infectious. No pneumothorax or effusion. CARDIOVASCULAR, MEDIASTINUM: Mild cardiomegaly. OTHER: None. Procedure Note Go, Tacho Winston MD - 12/02/2023 EXAM XR CHEST 2 VIEWS - 12/02/2023 9:36 am HISTORY sob, h/o lung ca TECHNIQUE Frontal and lateral radiographs of the chest were obtained. COMPARISON CT chest, abdomen pelvis 09/16/2023. FINDINGS FOREIGN BODIES, SUPPORT TUBES, LINES, DEVICES: Right chest MediPort withtip terminating at the distal superior vena cava. LUNGS, PLEURA: Bibasilar streaky opacity, left greater than right, likelyatelectasis versus scarring. Left lower lung ill-defined density maycorrespond to lung nodule seen on prior CT. Ill-defined left upper lungperipheral density likely inflammatory/infectious. No pneumothorax oreffusion. CARDIOVASCULAR, MEDIASTINUM: Mild cardiomegaly. OTHER: None. IMPRESSION IMPRESSION 1. Left upper lobe ill-defined density likely infectious, inflammatory, ormetastatic given history of lung cancer, recommend continued follow-up. 2. Left lower lung nodule better seen on prior CT. I have personally reviewed this examination and agree with the resident/fellow physician's interpretation. Betzy Pak PA-C RADIOLOGY (RAD GEN ERAL) * RESPIRATORY PATHOGEN PANEL, PCR (12/02/2023 9:06 AM EST) Adenovirus by PCR Negative Negative 024 11:36 AM EST LAB[facility]ATORY [facility] [facility] Coronavirus 229E by PCR Negative Negative 12/02/2023 11:36 AM EST LAB[facility] Coronavirus HKU1 by PCR Negative Negative 12/02/2023 11:36 AM EST LAB[facility] Coronavirus NL63 by PCR Negative Negative 12/02/2023 11:36 AM EST LAB[facility]ORY [facility] [facility] Coronavirus OC43 by PCR Negative Negative 12/02/2023 11:36 AM EST LAB[facility]ORY [facility] Coronavirus SARS-CoV-2 by PCR Negative Negative 12/02/2023 11:36 AM EST LAB[facility]ORY [facility] Human Metapneumovirus by PCR Negative Negative 12/02/2023 11:36 AM EST LAB[facility]ORY [facility] Rhinovirus/Enterovi yuan by PCR Negative Negative 12/02/2023 11:36 AM EST LAB[facility]ORY [facility] Influenza A Virus by PCR Negative Negative 12/02/2023 11:36 AM EST LAB[facility]ORY [facility] Influenza B Virus by PCR Negative Negative 12/02/2023 11:36 AM EST LAB[facility]ORY [facility] Parainfluenza Virus 1 by PCR Negative Negative 12/02/2023 11:36 AM EST LAB[facility]ORY [facility] Parainfluenza Virus 2 by PCR Negative Negative 12/02/2023 11:36 AM EST LAB[facility]ORY [facility] Parainfluenza Virus 3 by PCR Negative Negative 12/02/2023 11:36 AM EST LAB[facility]ORY [facility] Parainfluenza Virus 4 by PCR Negative Negative 12/02/2023 11:36 AM EST LAB[facility]ORY [facility] Respiratory Syncytial Virus by PCR Negative Negative 12/02/2023 11:36 AM EST LAB[facility] Bordetella pertussis by PCR Negative Negative 12/02/2023 11:36 AM EST LAB[facility]ORY [facility] Chlamydia pneumoniae by PCR Negative Negative 12/02/2023 11:36 AM EST LAB[facility]ORY [facility] Mycoplasma pneumoniae by PCR Negative Negative 12/02/2023 11:36 AM EST LAB[facility]ORY [facility] Bordetella parapertussis by PCR Negative Negative 12/02/2023 11:36 AM EST LAB[facility]ATORY [facility] Comment: The primers that detect Rhinovirus may cross react with some Enterorviruses. The validation of bronchial specimens, tracheal aspirates, and throats for this assay was developed and performance characteristics determined by [employer]. The validation of alternate specimen types has not been cleared or approved by the U.S. Food and Drug Administration (FDA). It has been determined that such clearance or approval is not necessary. Upper Respiratory Mid-turbinate nasal swab / Unknown 12/02/2023 9:06 AM EST 12/02/2023 10:28 AM EST Betzy Pak PA-C LAB MICRO - GENERA L ORDERABLES LABORATORY [facility] [address] [place] [address] documented in this encounter Visit Diagnoses Diagnosis Pneumonia of both lungs due to infectious organism, unspecified part of lung- Primary SOB (shortness of breath) Shortness of breath documented in this encounter Administered Medications Inactive Administered Medications - up to 3 most recent administrations Medication Order MAR Action Action Date Dose Rate Site Acetaminophen (Tylenol) tab 975 mg 975 mg, Oral, ONCE, On Sat12/02/23 at 1200, For 1 dose, Maximum of 4 grams (4000 mg) per day. Given 12/02/2023 11:58 AM EST 975 mg amoxicillin-clavulanate (Augmentin) tab 875 mg 875 mg, Oral, ONCE, On Sat12/02/23 at 1400, For 1 dose Given 12/02/2023 1:28 PM EST 875 mg doxycycline tab 100 mg 100 mg, Oral, ONCE, On Sat12/02/23 at 1400, For 1 dose Given 12/02/2023 1:28 PM EST 100 mg Furosemide (Lasix) inj 40 mg 40 mg, IV Push, ONCE, On Sat12/02/23 at 1045, For 1 dose Given 12/02/2023 10:51 AM EST 40 mg Ioversol (Optiray 350) 74 % inj 100 mL 100 mL, Intravenous, ONCE, On Sat12/02/23 at 1115, For 1 dose, Radiology Medication Routing (Non-IR) Given 12/02/2023 11:15 AM EST 87 mL documented in this encounter Active and Recently Administered Medications Times are shown in EST. Scheduled Medication Order 11/30/2023 12/01/2023 12/02/2023 Acetaminophen (Tylenol) tab 975 mg (COMPLETED) 975 mg, Oral, ONCE, On Sat12/02/23 at 1200, For 1 dose, Maximum of 4 grams (4000 mg) per day. 1158 (Given - Provid er: Hermilo Drew RN) amoxicillin-clavulanate (Augmentin) tab 875 mg (COMPLETED) 875 mg, Oral, ONCE, On Sat12/02/23 at 1400, For 1 dose 1328 (Given - Provid er: Hermilo Drew RN) doxycycline tab 100 mg (COMPLETED) 100 mg, Oral, ONCE, On Sat12/02/23 at 1400, For 1 dose 1328 (Given - Provid er: Hermilo Drew RN) Furosemide (Lasix) inj 40 mg (COMPLETED) 40 mg, IV Push, ONCE, On Sat12/02/23 at 1045, For 1 dose 1051 (Given - Provid er: Hermilo Drew RN) Ioversol (Optiray 350) 74 % inj 100 mL (COMPLETED) 100 mL, Intravenous, ONCE, On Sat12/02/23 at 1115, For 1 dose, Radiology Medication Routing (Non-IR) 1115 (Given - Provid er: KELLY Rose) documented in this encounter Additional Health Concerns Infection Onset Date Last Indicated Resolved Time COVID-19 (confirmed) 03/19/2022 03/19/2022 Respiratory Rule-Out 12/02/2023 12/02/2023 024 11:36 AM EST COVID-19 Rule-Out 12/02/2023 12/02/2023 12/02/2023 11:36 AM EST documented as of this encounter Advance [...] the patient have Health Care Power of Lead Sql Developer? No Code Status History Code Status Date Activated Date Inactivated Comments Full Code 05/23/2021 12:21 PM 05/24/2021 9:38 PM This order reflects the patients wishes and were consensually agreed upon. Question Answer Comments Discussion of Advance Directives occurred with: Patient Healthcare Agents on File Name Relationship Healthcare Agent [facility] Communication Rose Mary Brothers Spouse Health Care Agent Care Teams Harness Cutter Relationship Specialty Start Date End Date Matthew Herrmann PA-C [address] [place] [address] [phone] PCP - General Physician Geologist 03/22/21 documented as of this encounter
--- OUTSIDE RECORDS SUMMARY | 2024-04-11 14:53 | External Medical Summary ---
Author Name Unknown Address Unknown Organization K01:LABORATORY [place] [address] [facility] [address] [place] [address] Laboratory Report Ordering Provider Test Date Status SIMÓN COHEN 12/02/2023 10:03:00 Final Observation Date Value Abnormality Reference (Units ) Status WBC, Total 12/02/2023 10:03:00 4.44 4.00-10.80 (K/uL) Final RBC 12/02/2023 10:03:00 3.98 4.50-5.25 (M/uL) Final Hemoglobin 12/02/2023 10:03:00 12.8 Below low normal 14.0-16.8 (g/dL) Final HCT 12/02/2023 10:03:00 38.6 Below low normal 40.0-48.4 (%) Final MCV 12/02/2023 10:03:00 97.0 82.0-99.5 (fL) Final MCH 12/02/2023 10:03:00 32.2 27.0-34.0 (pg) Final MCHC 12/02/2023 10:03:00 33.2 32.0-36.0 (g/dL) Final RDW 12/02/2023 10:03:00 16.9 11.5-15.5 (%) Final Platelets 12/02/2023 10:03:00 274 140-400 (K/uL) Final MPV 12/02/2023 10:03:00 9.5 6.6-11.1 (fL) Final Nucleated erythrocytes/100 leukocytes [Ratio] in Blood by Automated count 12/02/2023 10:03:00 1 Above high normal <=0 (/100 WBCs) Final Performing Location LABORATORY [facility] [place] - [address] [place] [address]
--- OUTSIDE RECORDS SUMMARY | 2024-04-11 14:53 | External Medical Summary ---
Author Name Unknown Address Unknown Organization [id number]:[place] [place] [address] [place] [address] Laboratory Report Ordering Provider Test Date Status SIMÓN COHEN 12/02/2023 10:03:00 Final Less than 0.5 ng/mL: Low ris k for progression to sepsis. Review patients condition for localized infections.

0.5 to 2.0 ng/mL: Intermediate risk for progresion to sepsis. Review underlying conditions. Recommend repeat PCT after 6 hours has elapsed.

Greater than 2.0 ng/mL: high risk for progression to sepsis unless other causes are known. Observation Date Value Abnormality Reference (Units ) Status Procalcitonin [Mass/volume] in Serum or Plasma by Immunoassay 12/02/2023 10:03:00 0.13 Above high normal <0.10 (ng/mL) Final Performing Location [facility] [place] [facility] [address] [place] [address]
--- OUTSIDE RECORDS SUMMARY | 2024-04-11 14:53 | External Medical Summary ---
Author Name Unknown Address Unknown Organization [id number]:[facility] [place] [address] [place] [address] Laboratory Report Ordering Provider Test Date Status SIMÓN COHEN 12/02/2023 10:03:00 Final Observation Date Value Abnormality Reference (Units ) Status ABO 12/02/2023 10:03:00 A Final RH 12/02/2023 10:03:00 Negative Final Performing Location [facility] - [address] [place] [address]
--- OUTSIDE RECORDS SUMMARY | 2024-04-11 14:53 | External Medical Summary ---
Author Name Unknown Address Unknown Organization K01:LABORATORY [facility] [place] - [address] [facility] [place] [address] Laboratory Report Ordering Provider Test Date Status SIMÓN COHEN 12/02/2023 09:06:00 Final ADMITTED patient Observation Date Value Abnormality Reference (Units ) Status Adenovirus DNA [Presence] in Nasopharynx by ANDRIA with non-probe detection 12/02/2023 09:06:00 Negative Negative Final Human coronavirus 229E RNA [Presence] in Nasopharynx by ANDRIA with non-probe detection 12/02/2023 09:06:00 Negative Negative Final Human coronavirus HKU1 RNA [Presence] in Nasopharynx by ANDRIA with non-probe detection 12/02/2023 09:06:00 Negative Negative Final Human coronavirus NL63 RNA [Presence] in Nasopharynx by ANDRIA with non-probe detection 12/02/2023 09:06:00 Negative Negative Final Human coronavirus OC43 RNA [Presence] in Nasopharynx by ANDRIA with non-probe detection 12/02/2023 09:06:00 Negative Negative Final SARS-CoV-2 (COVID-19) RNA [Presence] in Nasopharynx by ANDRIA with non-probe detection 12/02/2023 09:06:00 Negative Negative Final Human metapneumovirus RNA [Presence] in Nasopharynx by ANDRIA with non-probe detection 12/02/2023 09:06:00 Negative Negative Final Rhinovirus+Enterovirus RNA [Presence] in Nasopharynx by ANDRIA with non-probe detection 12/02/2023 09:06:00 Negative Negative Final Influenza virus A RNA [Presence] in Nasopharynx by ANDRIA with non-probe detection 12/02/2023 09:06:00 Negative Negative Final Influenza virus B RNA [Presence] in Nasopharynx by ANDRIA with non-probe detection 12/02/2023 09:06:00 Negative Negative Final Parainfluenza virus 1 RNA [Presence] in Nasopharynx by ANDRIA with non-probe detection 12/02/2023 09:06:00 Negative Negative Final Parainfluenza virus 2 RNA [Presence] in Nasopharynx by ANDRIA with non-probe detection 12/02/2023 09:06:00 Negative Negative Final Parainfluenza virus 3 RNA [Presence] in Nasopharynx by ANDRIA with non-probe detection 12/02/2023 09:06:00 Negative Negative Final Parainfluenza virus 4 RNA [Presence] in Nasopharynx by ANDRIA with non-probe detection 12/02/2023 09:06:00 Negative Negative Final Respiratory syncytial virus RNA [Presence] in Nasopharynx by ANDRIA with non-probe detection 12/02/2023 09:06:00 Negative Negative Final Bordetella pertussis.pertussis toxin promoter region [Presence] in Nasopharynx by ANDRIA with non-probe detection 12/02/2023 09:06:00 Negative Negative Final Chlamydophila pneumoniae DNA [Presence] in Nasopharynx by ANDRIA with non-probe detection 12/02/2023 09:06:00 Negative Negative Final Mycoplasma pneumoniae DNA [Presence] in Nasopharynx by ANDRIA with non-probe detection 12/02/2023 09:06:00 Negative Negative Final Bordetella parapertussis [id number] DNA [Presence] in Nasopharynx by NADRIA with non-probe detection 12/02/2023 09:06:00 Negative Negative Final
The primers that detect Rhinovirus may cross react with some Enterorviruses. The validation of bronchial specimens, tracheal aspirates, and throats for this assay was developed and performance characteristics determined by [employer]. The validation of alternate specimen types has not been cleared or approved by the U.S. Food and Drug Administration (FDA). It has been determined that such clearance or approval is not necessary. Performing Location LABORATORY [place] [address] [facility] [address] [facility] [address]
--- OUTSIDE RECORDS SUMMARY | 2024-04-11 14:53 | External Medical Summary | Summary of Care ---
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) Procedures [place] FOSAPREPITANT INJECTION MI INJ PEMBROLIZUMAB MI PACLITAXEL INJECTION Kerri Foote MD [address] [place] [address] Anc Hem/Onc [place] [address] [place] [address] Referral ID Status Reason Start Date Expiration Date V isits Requested Visits Authorized [id number] Authorized 09/30/2023 04/25/2024 999 99 Encounter Details Date Type Department Care Team (Latest Contact Info) Description 10/03/2023 11:00 AM EST Hem/Onc Treatment Hematology Oncology [facility], [place] [address] [place] [address] [place], Chair 14 Hem/Onc [address] [place] [address] Chemotherapy adverse reaction, initial encounter*; Chemotherapy induced [...] mRNA, LNP-s, No Pre serve, 2-Dose Series ([employer]) 09/23/2021 documented as of this encounter Social [...] 7:46 AM EDT Sexual Orientation Straight 02/04/2019 7 :46 AM EDT Job Start Date Occupation Industry [...] 12:30 PM EST Laboratory [facility] [phone] [place], Lab Lock [address] [place] [address] 12/03/2023 6:15 AM EST Anticoagulation Pharmacy Call Center [address] [place] [address] [facility], [facility] [address] [facility] [place] [address] 12/04/2023 11:00 AM EST Office Visit Cardiology, [facility] [address] [place] [address] Santa Quintero CRNP [address] [facility] [address] 12/05/2023 4:00 PM EST Appointment Radiology, [address] [phone] 12/12/2023 8:45 AM EST Nurse Only Hematology Oncology [facility], [address] [address] [place], Nurse Lab Hem/Onc [address] [place] [address] 12/12/2023 9:30 AM EST Office Visit Hematology Oncology [facility], [address] [phone] Kerri Foote MD [facility] [place] [place] [address] 12/12/2023 10:30 AM EST Hem/Onc Treatment Hematology Oncology [facility], [place] [address] [place] [address] [place], Chair 4 Hem/Onc [address] [place] [address] [phone] 05/06/2024 9:20 AM EDT Office Visit Neurology [address] [place] [address] [place] [address] Kathy Pryor PA-C [address] [place] [address] Health Maintenance Due Date Last [...] this encounter Medical Devices Implanted Type Area Servicenow Administrator Device Identifier Shelf Expiration Date Model / Serial / Lot Power Port 8fr Sngl Lumen Plas - [id number] Implanted:Qty: 1 on 04/24/2021 at [facility] CR [facility]ARD : PERIPHERAL VASCULAR [id number] 02/24/2022 [id number] / / [id number] documented as of this encounter Results * (ABNORMAL) TSH WITH FREE T4 IF INDICATED (10/08/2023 1:16 PM EST) TSH 0.09(L) 0.27 - 4.20 uIU/mL 10/09/2023 3:52 AM EST LABORATORY [facility] Blood Venous blood specimen / Unknown Venipuncture / Unknown 10/08/2023 1:16 PM EST 10/08/2023 1:16 PM EST Kerri Foote [place] [phone] documented in this encounter Visit Diagnoses Diagnosis [...] the patient have Health Care Power of Licensed Sales Producer? No Code Status History Code Status Date Activated Date Inactivated Comments Full Code 05/23/2021 12:21 PM 05/24/2021 9:38 PM This order reflects the patients wishes and were consensually agreed upon. Question Answer Comments Discussion of Advance Directives occurred with: Patient Healthcare Agents on File Name Relationship Healthcare Agent [facility] p Communication Rose Mary Brothers Spouse Health Care Agent Care Teams Acid Patroller Relationship Specialty Start Date End Date Matthew Herrmann PA-C [address] [place] [phone] PCP - General Physician Technologist Development 03/22/21 documented as of this encounter
--- OUTSIDE RECORDS SUMMARY | 2024-04-11 14:53 | External Medical Summary ---
Author Name Unknown Address Unknown Organization K01:LABORATORY [facility] [place] - [address] [facility] [place] [address] Laboratory Report Ordering Provider Test Date Status SIMÓN COHEN 12/02/2023 10:03:00 Final Observation Date Value Abnormality Reference (Units ) Status BUN 12/02/2023 10:03:00 8 6-20 (mg/dL) Final Creatinine 12/02/2023 10:03:00 1.0 0.6-1.2 (mg/dL) Final Glomerular filtration rate/1.73 sq M.predicted [Volume Rate/Area] in Serum, Plasma or Blood by Creatinine-based formula (CKD-EPI) 12/02/2023 10:03:00 >90 >=60 (mL/min) Final eGFR is calculated based on the CKD-EPI 2020 equation SODIUM 12/02/2023 10:03:00 140 135-146 (m mol/L) Final Potassium 12/02/2023 10:03:00 3.4 Below low normal 3.5 -5.1 (mmol/L) Final Cl 12/02/2023 10:03:00 102 98-107 (mm ol/L) Final CO2 12/02/2023 10:03:00 27 22-32 (mmo l/L) Final Anion gap 12/02/2023 10:03:00 11 7-15 (mmol /L) Final Glucose 12/02/2023 10:03:00 114 70-120 (mg /dL) Final Albumin 12/02/2023 10:03:00 3.9 3.8-5.0 (g /dL) Final AST (Aspartate aminotransferase) 12/02/2023 10:03:00 36 10-50 (U/L) Fin al Alk Phos 12/02/2023 10:03:00 75 35-130 (U/ L) Final Bilirubin, Total 12/02/2023 10:03:00 0.7 <=1 .2 (mg/dL) Final Calcium 12/02/2023 10:03:00 8.9 8.4-10.2 ( mg/dL) Final Protein 12/02/2023 10:03:00 6.8 6.0-8.3 (g /dL) Final ALT (Alanine aminotransferase) 12/02/2023 10:03:00 73 Above high normal 10-50 (U/L) Final Performing Location LABORATORY [facility] [place] - [address] [facility] [address]
--- OUTSIDE RECORDS SUMMARY | 2024-04-11 14:53 | External Medical Summary ---
Author Name Unknown Address Unknown Organization K01:LABORATORY [facility] [place] - [address] [place] [address] Laboratory Report Ordering Provider Test Date Status POOJA LAWLER 12/04/2023 18:25:00 Final Observation Date Value Abnormality Reference (Units ) Status Troponin T 12/04/2023 18:25:00 11 <=22 (ng/ L) Final Performing Location LABORATORY [facility] [place] - [address] [place] [address]
--- OUTSIDE RECORDS SUMMARY | 2024-04-11 14:53 | External Medical Summary ---
Author Name Unknown Address Unknown Organization K01:LABORATORY [facility] [place] - [address] [facility] [address] Laboratory Report Ordering Provider Test Date Status SIMÓN COHEN 12/02/2023 09:43:00 Final Observation Date Value Abnormality Reference (Units ) Status Color of Urine by Auto 12/02/2023 09:43:00 Colorless Colorless, Light Yellow, Yellow, Dark Yellow Final Clarity, Urine 12/02/2023 09:43:00 Clear Clear Final Glucose [Mass/volume] in Urine by Automated test strip 12/02/2023 09:43:00 Negative Negative (mg/dL) Final Bilirubin.total [Presence] in Urine by Automated test strip 12/02/2023 09:43:00 Negative Negative Final Ketones [Mass/volume] in Urine by Automated test strip 12/02/2023 09:43:00 Negative Negative (mg/dL) Final Specific gravity, Urine 12/02/2023 09:43:00 1.007 1.003-1.030 Final Hemoglobin [Presence] in Urine by Automated test strip 12/02/2023 09:43:00 Negative Negative Final pH, Urine 12/02/2023 09:43:00 7.5 5.0-7.5 (Units) Final Protein [Mass/volume] in Urine by Automated test strip 12/02/2023 09:43:00 Negative Negative (mg/dL) Final Urobilinogen [Mass/volume] in Urine by Automated test strip 12/02/2023 09:43:00 Normal Normal (mg/dL) Final Nitrite [Presence] in Urine by Automated test strip 12/02/2023 09:43:00 Negative Negative Final Leukocyte esterase [Presence] in Urine by Automated test strip 12/02/2023 09:43:00 Negative Negative Final RBC, Urine 12/02/2023 09:43:00 0-2 0-2 (/HPF) Final WBC, Urine 12/02/2023 09:43:00 0-2 0-2 (/HPF) Final Bacteria [#/area] in Urine sediment by Microscopy high power field 12/02/2023 09:43:00 0-25 0-25 (/HPF) Final CULTURE, URINE - [facility] 12/02/2023 09:43:00 Final Culture not indicated by uri nalysis results\X09\ Performing Location LABORATORY [facility] [place] - [facility] [address] [facility] [address]
--- OUTSIDE RECORDS SUMMARY | 2024-04-11 14:53 | External Medical Summary ---
Author Name Unknown Address Unknown Organization K01:LABORATORY [facility] [place] - [facility] [address] [place] [address] Laboratory Report Ordering Provider Test Date Status SIMÓN COHEN 12/02/2023 10:03:00 Final Exclude Heart Failure: <300 pg/mL
Diagnose Heart Failure:
Age <50 yr: >450 pg/mL
50-75 yr: >900 pg/mL
>75 yr: >1800 pg/mL
GFR is 30-59 mL/min: >1200 pg/mL or Age- adjusted values
GFR <30 mL/min: do not use, not reliable

Prognostic threshold: 1000 pg/mL Observation Date Value Abnormality Reference (Units ) Status BNP, Pro-hormone 12/02/2023 10:03:00 82 <30 0 (pg/mL) Final Performing Location LABORATORY [facility] [place] - [facility] [address] [place] [address]
--- OUTSIDE RECORDS SUMMARY | 2024-04-11 14:53 | External Medical Summary ---
Author Name Unknown Address Unknown Organization K01:LABORATORY [facility] [place] - [address] [place] [address] Laboratory Report Ordering Provider Test Date Status SIMÓN COHEN 12/02/2023 10:03:00 Final Observation Date Value Abnormality Reference (Units ) Status Lactic Acid, Whole Blood 12/02/2023 10:03:00 1.1 0.4-2.0 (mmol/L) Final Performing Location LABORATORY [facility] [place] - [address] [place] [address]
--- OUTSIDE RECORDS SUMMARY | 2024-04-11 14:53 | External Medical Summary ---
Author Name Unknown Address Unknown Organization K01:LABORATORY [facility] [place] - [address] [place] [address] Laboratory Report Ordering Provider Test Date Status SIMÓN COHEN 12/02/2023 10:07:00 Final Observation Date Value Abnormality Reference (Units ) Status Bacteria identified in Specimen by Culture 12/02/2023 10:07:00 No growth Final Test: Culture, Blood (Site 2 )
Specimen Source: Blood, Venous
Specimen Type: Blood
Specimen Date: 12/02/2023 10:07 AM
Result Date: 12/07/2023 11:01 AM
Result Status: Final result
Resulting Lab: LABORATORY [facility]
[address]
[place] [address]

CULTURE

No growth

null Performing Location LABORATORY [place] - [address] [place] [address]
--- OUTSIDE RECORDS SUMMARY | 2024-04-11 14:54 | External Medical Summary | Summary of Care ---
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) Procedures [place] FOSAPREPITANT INJECTION [place] INJ PEMBROLIZUMAB [place] PACLITAXEL INJECTION Kerri Foote MD [address] [place] [address] Anc Hem/Onc [place] [address] [place] [address] Referral ID Status Reason Start Date Expiration Date V isits Requested Visits Authorized [id number] Authorized 09/30/2023 04/25/2024 999 99 Encounter Details Date Type Department Care Team (Latest Contact Info) Description 10/03/2023 11:00 AM EST Hem/Onc Treatment Hematology [facility], [place] [address] [place] [address] [place], Chair 14 Hem/Onc [address] [place] [address] Chemotherapy adverse reaction, initial encounter*; Chemotherapy induced [...] as of this encounter (statuses as of 11/28/2023) Medications Medication Sig Dispensed Refills Start Date [...] as of this encounter (statuses as of 11/28/2023) Active Problems Problem Noted Date Diagnosed Date [...] as of this encounter (statuses as of 11/28/2023) Resolved Problems Problem Noted Date Diagnosed Date Resolved Date MSSA bacteremia 08/01/2021 08/07/2021 Sepsis 08/01/2021 08/07/2021 COPD, group B, by GOLD 2017 classification 05/08/2021 06/21/2021 Overview: Per COPD GOLD Classification Obstructive lung disease 04/10/2021 Overview: Per COPD GOLD Classification documented as of this encounter (statuses as of 11/28/2023) Immunizations Name Administration Dates Next Due COVID-19 mRNA, LNP-s, No Pre serve, 2-Dose Series ([employer]) 09/23/2021 documented as of this encounter Social [...] 12:30 PM EST Laboratory [facility] [phone] [place], Lab Lock [address] [place] [address] 12/03/2023 6:15 AM EST Anticoagulation Pharmacy Call Center [address] [place] [address] [facility], [facility] [address] [facility] [place] [address] 12/04/2023 11:00 AM EST Office Visit Cardiology, [facility] [address] [place] [address] Santa Quintero CRNP [address] [place] [address] 12/05/2023 4:00 PM EST Appointment Radiology, [address] [phone] 12/12/2023 8:45 AM EST Nurse Only Hematology [facility], [address] [address] [place], Nurse Lab Hem/Onc [address] [place] [address] 12/12/2023 9:30 AM EST Office Visit [facility]ematology [facility], [address] [phone] Kerri Foote MD [facility] [place] [address] 12/12/2023 10:30 AM EST Hem/Onc Treatment Hematology [facility]cology [facility], [place] [address] [place] [address] [place], Chair 4 Hem/Onc [address] [place] [phone] 05/06/2024 9:20 AM EDT Office Visit Neurology [address] [place] [address] [place] [address] Kathy Pryor PA-C [address] [place] [address] Health Maintenance Due Date Last [...] this encounter Medical Devices Implanted Type Area Gastroenterology Technician Device Identifier Shelf Expiration Date Model / Serial / Lot Power Port 8fr Sngl Lumen Plas - [id number] Implanted:Qty: 1 on 04/24/2021 at [facility] CR BARD : PERIPHERAL VASCULAR [id number] 02/24/2022 [id number] / / [id number] documented as of this encounter Results * (ABNORMAL) TSH WITH FREE T4 IF INDICATED (10/08/2023 1:16 PM EST) TSH 0.09(L) 0.27 - 4.20 uIU/mL 10/09/2023 3:52 AM EST LABORATORY [facility] [place] Blood Venous blood specimen / Unknown Venipuncture / Unknown 10/08/2023 1:16 PM EST 10/08/2023 1:16 PM EST Kerri Foote MD [place] [address] documented in this encounter Visit Diagnoses Diagnosis [...] the patient have Health Care Power of Staff Educator? No Code Status History Code Status Date Activated Date Inactivated Comments Full Code 05/23/2021 12:21 PM 05/24/2021 9:38 PM This order reflects the patients wishes and were consensually agreed upon. Question Answer Comments Discussion of Advance Directives occurred with: Patient Healthcare Agents on File Name Relationship Healthcare Agent [facility] p Communication Rose Mary Brothers Spouse Health Care Agent Care Teams Flatbed Owner Operator Relationship Specialty Start Date End Date Matthew Herrmann PA-C [address] [place] [phone] PCP - General Physician Director Of Primary Care 03/22/21 documented as of this encounter
--- OUTSIDE RECORDS SUMMARY | 2024-04-11 14:54 | External Medical Summary | Summary of Care ---
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) Procedures MO FOSAPREPITANT INJECTION MO INJ PEMBROLIZUMAB MO PACLITAXEL INJECTION Kerri Foote MD [address] [place] [address] Anc Hem/Onc [place] [address] [place] [address] Referral ID Status Reason Start Date Expiration Date V isits Requested Visits Authorized [id number] Authorized 09/30/2023 04/25/2024 999 99 Encounter Details Date Type Department Care Team (Latest Contact Info) Description 10/03/2023 11:00 AM EST Hem/Onc Treatment Hematology Oncology [facility], [place] [address] [place] [address] [place], Chair 14 Hem/Onc [address] [place] [address] Chemotherapy adverse reaction, initial encounter*; Chemotherapy induced [...] mRNA, LNP-s, No Pre serve, 2-Dose Series ([employer]) 09/23/2021 documented as of this encounter Social [...] 12:30 PM EST Laboratory Laboratory [facility] [phone] [place], Lab Lock [address] [place] [address] 12/03/2023 6:15 AM EST Anticoagulation Pharmacy Call Center 58-60 [place] [address] [facility], [facility] 58 60 [facility] [place] [address] 12/04/2023 11:00 AM EST Office Visit Cardiology, [facility] [address] [place] [address] Santa Quintero CRNP [address] [facility] [place] [address] 12/05/2023 4:00 PM EST Appointment Radiology, [address] [address] 12/12/2023 8:45 AM EST Nurse Only Hematology Oncology [facility], [address] [address] [place], Nurse Lab Hem/Onc [address] [place] [address] 12/12/2023 9:30 AM EST Office Visit Hematology Oncology [facility], [address] [phone] Kerri Foote MD [facility] [place] [address] 12/12/2023 10:30 AM EST Hem/Onc Treatment Hematology Oncology [facility], [place] [address] [place] [address] [place], Chair 4 Hem/Onc [address] [place] [phone] 05/06/2024 9:20 AM EDT Office Visit Neurology [address] [place] [address] [place] [address] Kathy Pryor PA-C [address] [place] [address] Health Maintenance Due Date Last [...] this encounter Medical Devices Implanted Type Area Solid Glass Rod Dowel Machine Operator Device Identifier Shelf Expiration Date Model / Serial / Lot Power Port 8fr Sngl Lumen Plas - [id number] Implanted:Qty: 1 on 04/24/2021 at [facility] CR BARD : PERIPHERAL VASCULAR [id number] 02/24/2022 [id number] / / [id number] documented as of this encounter Results * (ABNORMAL) TSH WITH FREE T4 IF INDICATED (10/08/2023 1:16 PM EST) TSH 0.09(L) 0.27 - 4.20 uIU/mL 10/09/2023 3:52 AM EST LABORATORY [facility] Blood Venous blood specimen / Unknown Venipuncture / Unknown 10/08/2023 1:16 PM EST 10/08/2023 1:16 PM EST Kerri Foote MD [place] [address] documented in this encounter Visit Diagnoses Diagnosis [...] the patient have Health Care Power of Manager Credit Risk? No Code Status History Code Status Date Activated Date Inactivated Comments Full Code 05/23/2021 12:21 PM 05/24/2021 9:38 PM This order reflects the patients wishes and were consensually agreed upon. Question Answer Comments Discussion of Advance Directives occurred with: Patient Healthcare Agents on File Name Relationship Healthcare Agent [facility] p Communication Rose Mary Brothers Spouse Health Care Agent Care Teams Tawer Relationship Specialty Start Date End Date Matthew Herrmann PA-C [address] [place] [phone] PCP - General Physician Rn Complex Care 03/22/21 documented as of this encounter
--- OUTSIDE RECORDS SUMMARY | 2024-04-11 14:54 | External Medical Summary | Summary of Care ---
Author Name Unknown Organization [facility] Address [address] [facility] [address] Phone [phone] Care Team Providers Care Load Dispatcher Name Role Phone Matthew Herrmann PA-C Primary Care Provider +1 [phone] Reason for Visit * Reason Comments Dosage Adjustment Via Phone (anticoag Cl inic) Encounter Details Date Type Department Care Team (Latest Contact Info) Description 11/26/2023 6:30 AM [facility] Anticoagulation Pharmacy Call Center WB [phone] Public [place] [address] [facility] 58 60 Public [facility] [place] [address] Acute deep vein thrombosis (DVT) of proximal [...] as of this encounter (statuses as of 11/26/2023) Medications Medication Sig Dispensed Refills Start Date [...] as of this encounter (statuses as of 11/26/2023) Active Problems Problem Noted Date Diagnosed Date [...] as of this encounter (statuses as of 11/26/2023) Resolved Problems Problem Noted Date Diagnosed Date Resolved Date MSSA bacteremia 08/01/2021 08/07/2021 Sepsis 08/01/2021 08/07/2021 COPD, group B, by GOLD 2017 classification 05/08/2021 06/21/2021 Overview: Per COPD GOLD Classification Obstructive lung disease 04/10/2021 Overview: Per COPD GOLD Classification documented as of this encounter (statuses as of 11/26/2023) Immunizations Name Administration Dates Next Due COVID-19 mRNA, LNP-s, No Pre serve, 2-Dose Series ([email or web address]) 09/23/2021 documented as of this encounter Social [...] as of this encounter Progress Notes * Michelle Shook, shipwright helper - 11/26/2023 8:19 AM EST Patient Phone Numbers Spoke to Rose Mary via phone. Unusual Bruising or Bleeding : no Upcoming procedure: no Lovenox dose verified: compliant Labs were drawn ~ 4 hours after dose yes; 10:56 AM AntiXa results, Lovenox dose instructions, and next antiXa date communicated as noted by Pharmacist: Yes Thank you, Michelle Shook [facility] ([facility]) (formerly [employer]) [phone] 11/26/2023,8:19 AM * Margret Hdez [facility] - 11/26/2023 8:02 AM EST Anticoagulation Clinic Current Lovenox Dose: 80 mg every 12 hours AntiXa level 1.14 (goal 0.6-1.0) at 10:56 AM Dose instructions: SKIP 1 dose of lovenox, then begin decreased dose of Lovenox 70 mg every 12 hours Repeat antiXa level in 1 weeks on 12/02/23 at [place]. Remind patient that labs must be drawn 4 hours after dose. SHIRA to contact patient with dose instructions as noted. Margret Hdez RPh 11/26/23, 8:03 AM documented in this encounter Plan of Treatment Upcoming Encounters Date Type Department Care Team (Late st Contact Info) Description 12/02/2023 12:30 PM EST Laboratory Laboratory Patient Service [address] [phone] [place], [address] [address] 12/03/2023 6:15 AM EST Anticoagulation Pharmacy Call Center [phone] Public [place] [address] [facility] 58 [address] [place] [address] 12/04/2023 11:00 AM EST Office Visit Cardiology, [facility] [address] [facility] [address] [facility] [place] [address] 12/05/2023 4:00 PM EST Appointment Radiology, [address] [address] 12/12/2023 8:45 AM EST Nurse Only Hematology Oncology [facility], [address] [address] [place], Nurse Lab Hem/Onc [address] [place] [address] 12/12/2023 9:30 AM EST Office Visit Hematology Oncology [facility], [place] [address] [place] [address] Kerri Foote MD [facility] [address] [place], [place] [phone] 12/12/2023 10:30 AM EST Hem/Onc Treatment Hematology Oncology [facility], [place] [address] [address] [place], [place] [phone] [place], Chair 4 Hem/Onc [address] [place] [phone] 05/06/2024 9:20 AM EDT Office Visit Neurology [address] [place] [address] [place] [address] Kathy Pryor PA-C [address] [place] [address] Health Maintenance Due Date Last Done Comments [...] encounter Medical Devices Implanted Type Area Financial Sales Professional Device Identifier Shelf Expiration Date Model / Serial / Lot Power Port 8fr Sngl Lumen Plas - [id number] Implanted:Qty: 1 on 04/24/2021 at [facility] CR BARD : PERIPHERAL VASCULAR [id number] 02/24/2022 [id number] / / [id number] Port Implant W/8f Poly Cath - [id number] Implanted:Qty: 1 on 10/15/2023 at [facility] CR BARD : PERIPHERAL VASCULAR [id number] 03/27/2025 [id number] / / [id number] documented as of this encounter Visit Diagnoses Diagnosis Acute deep vein thrombosis (DVT) of proximal vein of right lower extremity (HCC)- Primary Abnormal CT scan of lung Other nonspecific abnormal finding of lung field History of pulmonary embolism Personal history of pulmonary embolism 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 No Code Status History Code Status Date Activated Date Inactivated Comments Full Code 05/23/2021 12:21 PM 05/24/2021 9:38 PM This order reflects the patients wishes and were consensually agreed upon. Question Answer Comments Discussion of Advance Directives occurred with: Patient Healthcare Agents on File Name Relationship Healthcare Agent [facility] p Communication Rose Mary Brothers Spouse Health Care Agent Care Teams Load Dispatcher Relationship Specialty Start Date End Date Matthew Herrmann PA-C [address] [place] [address] [place] [phone] PCP - General Physician Vice President Of Communications 03/22/21 documented as of this encounter
--- OUTSIDE RECORDS SUMMARY | 2024-04-11 14:54 | External Medical Summary | Summary of Care ---
Author Name Unknown Organization [facility] Address [address] [place] [address] Phone [phone] Care Team Providers Care Director Of Procurement Name Role Phone Matthew Herrmann PA-C Primary Care Provider [phone] [phone] Reason for Visit * Reason Comments Outpatient Testing Encounter Details Date Type Department Care Team (Late st Contact Info) Description 11/25/2023 12:30 PM [facility] Laboratory Laboratory Patient Service Center[address] [phone] [place], Lab Lock [address] [place] [address] History of pulmonary embolism; Acute deep vein thrombosis (DVT) of proximal vein of right lower extremity (HCC) Allergies Active Allergy Reactions Criticality Noted Date Comments Carboplatin High 11/14/2021 Dyspnea, chest pain, hypoxia, sore throat, edema throat, flushing, mild hypotension Isosorbide Nitrate Other (Please comment) 07/22/2023 Headache documented as of this encounter (statuses as of 11/25/2023) Medications Medication Sig Dispensed Refills Start Date [...] as of this encounter (statuses as of 11/25/2023) Active Problems Problem Noted Date Diagnosed Date [...] as of this encounter (statuses as of 11/25/2023) Resolved Problems Problem Noted Date Diagnosed Date Resolved Date MSSA bacteremia 08/01/2021 08/07/2021 Sepsis 08/01/2021 08/07/2021 COPD, group B, by GOLD 2017 classification 05/08/2021 06/21/2021 Overview: Per COPD GOLD Classification Obstructive lung disease 04/10/2021 Overview: Per COPD GOLD Classification documented as of this encounter (statuses as of 11/25/2023) Immunizations Name Administration Dates Next Due COVID-19 mRNA, LNP-s, No Pre serve, 2-Dose Series ([employer]) 09/23/2021 documented as of this encounter Social [...] Care Team (Late st Contact Info) Description 11/25/2023 6:00 PM EST Anticoagulation Pharmacy Call Center 58-60 Public [place] [address] [facility] 58 60 [facility] [place] [address] 12/04/2023 11:00 AM EST Office Visit Cardiology, [facility] [address] [facility] [place] [address] Santa Quintero CRNP [address] [facility] [place] [address] 12/05/2023 4:00 PM EST Appointment Radiology, [address] [phone] 12/12/2023 8:45 AM EST Nurse Only Hematology Oncology [facility], [address] [phone] [place], Nurse Lab Hem/Onc [address] [place] [phone] 12/12/2023 9:30 AM EST Office Visit Hematology [facility], [address] [address] Kerri Foote MD [facility] [place], [place] [phone] 12/12/2023 10:30 AM EST Hem/Onc Treatment Hematology Oncology [facility], [address] [phone] [place], Chair 4 Hem/Onc [address] [place] [address] [phone] 05/06/2024 9:20 AM EDT Office Visit Neurology [address] [place] [address] [place] [address] Kathy Pryor PA-C [address] [place] [address] Pending Results Name Type Priority Associated Diagnoses Date /Time HEPARIN, LOW MOLECULAR WEIGHT Lab Routine History of pulmonary embolism Acute deep vein thrombosis (DVT) of proximal vein of right lower extremity (HCC) 11/25/2023 10:56 AM EST Health Maintenance Due Date Last [...] this encounter Medical Devices Implanted Type Area Dermatology Nurse Practitioner Device Identifier Shelf Expiration Date Model / Serial / Lot Power Port 8fr Sngl Lumen Plas - [id number] Implanted:Qty: 1 on 04/24/2021 at [facility] CR BARD : PERIPHERAL VASCULAR [id number] 02/24/2022 [id number] / / [id number] Port Implant W/8f Poly Cath - [id number] Implanted:Qty: 1 on 10/15/2023 at [facility] CR BARD : PERIPHERAL VASCULAR [id number] 03/27/2025 [id number] / / [id number] documented as of this encounter Visit Diagnoses Diagnosis History of pulmonary embolism Personal history of pulmonary embolism Acute deep vein thrombosis (DVT) of proximal vein of right lower extremity (HCC) documented in this encounter Additional Health [...] the patient have Health Care Power of Credit And Collection Manager? No Code Status History Code Status Date Activated Date Inactivated Comments Full Code 05/23/2021 12:21 PM 05/24/2021 9:38 PM This order reflects the patients wishes and were consensually agreed upon. Question Answer Comments Discussion of Advance Directives occurred with: Patient Healthcare Agents on File Name Relationship [facility] p Communication Rose Mary Brothers Spouse Health Care Agent [phone] (Mobile) Care Teams Director Of Procurement Relationship Specialty Start Date End Date Matthew Herrmann PA-C [address] [place] [address] PCP - General Physician Mission Analyst 03/22/21 documented as of this encounter
--- OUTSIDE RECORDS SUMMARY | 2024-04-11 14:54 | External Medical Summary | Summary of Care ---
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) Procedures [place] FOSAPREPITANT INJECTION [place] INJ PEMBROLIZUMAB [place] PACLITAXEL INJECTION Kerri Foote MD [address] [place] [address] Anc Hem/Onc [place] [address] [place] [address] Referral ID Status Reason Start Date Expiration Date V isits Requested Visits Authorized [id number] Authorized 09/30/2023 04/25/2024 999 99 Encounter Details Date Type Department Care Team (Latest Contact Info) Description 10/03/2023 11:00 AM EST Hem/Onc Treatment Hematology Oncology [facility], [place] [address] [place] [address] [place], Chair 14 Hem/Onc [address] [place] [address] Chemotherapy adverse reaction, initial encounter*; Chemotherapy induced [...] as of this encounter (statuses as of 11/29/2023) Medications Medication Sig Dispensed Refills Start Date [...] as of this encounter (statuses as of 11/29/2023) Active Problems Problem Noted Date Diagnosed Date [...] as of this encounter (statuses as of 11/29/2023) Resolved Problems Problem Noted Date Diagnosed Date Resolved Date MSSA bacteremia 08/01/2021 08/07/2021 Sepsis 08/01/2021 08/07/2021 COPD, group B, by GOLD 2017 classification 05/08/2021 06/21/2021 Overview: Per COPD GOLD Classification Obstructive lung disease 04/10/2021 Overview: Per COPD GOLD Classification documented as of this encounter (statuses as of 11/29/2023) Immunizations Name Administration Dates Next Due COVID-19 mRNA, LNP-s, No Pre serve, 2-Dose Series ([employer]) 09/23/2021 documented as of this encounter Social [...] 12:30 PM EST Laboratory Laboratory [facility] Service Center[address] [phone] [place], Lab Lock [address] [place] [address] 12/03/2023 6:15 AM EST Anticoagulation Pharmacy Call Center 58-60 [place] [address] [facility], [facility] 58 60 [facility] [place] [address] 12/04/2023 11:00 AM EST Office Visit Cardiology, [facility] [address] [place] [address] Santa Quintero CRNP [address] [facility] [place] [address] 12/05/2023 4:00 PM EST Appointment Radiology, [address] [address] 12/12/2023 8:45 AM EST Nurse Only Hematology Oncology [facility], [address] [address] [place], Nurse Lab Hem/Onc [address] [place] [address] 12/12/2023 9:30 AM EST Office Visit Hematology Oncology [facility], [address] [phone] Kerri Foote MD [facility] [place] [address] 12/12/2023 10:30 AM EST Hem/Onc Treatment Hematology Oncology [facility], [place] [address] [place] [address] [place], Chair 4 Hem/Onc [address] [place] [phone] 05/06/2024 9:20 AM EDT Office Visit Neurology [address] [place] [address] [place] [address] Kathy Pryor PA-C [address] [place] [address] Health Maintenance Due Date Last [...] this encounter Medical Devices Implanted Type Area Washer Engineer Helper Device Identifier Shelf Expiration Date Model / Serial / Lot Power Port 8fr Sngl Lumen Plas - [id number] Implanted:Qty: 1 on 04/24/2021 at [facility] CR BARD : PERIPHERAL VASCULAR [id number] 02/24/2022 [id number] / / [id number] documented as of this encounter Results * (ABNORMAL) TSH WITH FREE T4 IF INDICATED (10/08/2023 1:16 PM EST) TSH 0.09(L) 0.27 - 4.20 uIU/mL 10/09/2023 3:52 AM EST LAB[facility]ATORY [facility] Blood Venous blood specimen / Unknown Venipuncture / Unknown 10/08/2023 1:16 PM EST 10/08/2023 1:16 PM EST Kerri Foote MD [place] [address] documented in this encounter Visit Diagnoses Diagnosis [...] the patient have Health Care Power of President Commercial Bank? No Code Status History Code Status Date Activated Date Inactivated Comments Full Code 05/23/2021 12:21 PM 05/24/2021 9:38 PM This order reflects the patients wishes and were consensually agreed upon. Question Answer Comments Discussion of Advance Directives occurred with: Patient Healthcare Agents on File Name Relationship Healthcare Agent [facility] p Communication Rose Mary Brothers Spouse Health Care Agent Care Teams Forklift Picker Relationship Specialty Start Date End Date Matthew Herrmann PA-C [address] [place] [address] PCP - General Physician Curtain Cleaner 03/22/21 documented as of this encounter
--- OUTSIDE RECORDS SUMMARY | 2024-04-11 14:54 | External Medical Summary ---
Author Name Unknown Address Unknown Organization K01:LABORATORY [facility] [place] [address] [place] [address] Laboratory Report Ordering Provider Test Date Status PABLO TODD 11/25/2023 10:56:06 Final Standing order for Anti Xa<b r/>Please draw pt/inr every 1 to 4 weeks
Results to [facility]tico[facility]
Observation Date Value Abnormality Reference (Units ) Status LMW Heparin [Units/volume] in Platelet poor plasma by Chromogenic method 11/25/2023 10:56:06 1.14 Above high normal <0.10 (IU/mL) Final Low molecular weight heparin 's therapeutic range is 0.6 - 1.00 I.U./mL. Performing Location LABORATORY [facility] - [address] [place] [address]
--- OUTSIDE RECORDS SUMMARY | 2024-04-11 14:54 | External Medical Summary | Summary of Care ---
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) Procedures CA FOSAPREPITANT INJECTION CA INJ PEMBROLIZUMAB CA PACLITAXEL INJECTION Kerri Foote MD [address] [place] [address] Anc Hem/Onc [place] [address] [place] [address] Referral ID Status Reason Start Date Expiration Date V isits Requested Visits Authorized [id number] Authorized 09/30/2023 04/25/2024 999 99 Encounter Details Date Type Department Care Team (Latest Contact Info) Description 10/03/2023 11:00 AM EST Hem/Onc Treatment Hematology Oncology [facility], [place] [address] [place] [address] Pacheco, Chair 14 Hem/Onc [address] [place] [address] Chemotherapy adverse reaction, initial encounter*; Chemotherapy induced [...] mRNA, LNP-s, No Pre serve, 2-Dose Series (Ibetor) 09/23/2021 documented as of this encounter Social [...] 12:30 PM EST Laboratory [facility] [phone] [place], Lab Lock [address] [place] [address] 12/03/2023 6:15 AM EST Anticoagulation Pharmacy Call Center 58-60 [place] [address] [facility], [facility] 58 60 [facility] [place] [address] 12/04/2023 11:00 AM EST Office Visit Cardiology, [facility] [address] [place] [address] Santa Quintero CRNP [address] [facility] [place] [address] 12/05/2023 4:00 PM EST Appointment Radiology, [address] [address] 12/12/2023 8:45 AM EST Nurse Only Hematology Oncology [facility], [address] [address] [place], Nurse Lab Hem/Onc [address] [place] [address] 12/12/2023 9:30 AM EST Office Visit Hematology Oncology [facility], [address] [phone] Kerri Foote MD [facility] [address] 12/12/2023 10:30 AM EST Hem/Onc Treatment Hematology Oncology [facility], [place] [address] [place] [address] Pacheco, Chair 4 Hem/Onc [address] [place] [address] [phone] 05/06/2024 9:20 AM EDT Office Visit Neurology [address] [place] [address] [place] [address] Kathy Pryor PA-C [address] [place] [address] Health Maintenance Due Date Last [...] this encounter Medical Devices Implanted Type Area Advertising Account Representative Device Identifier Shelf Expiration Date Model / Serial / Lot Power Port 8fr Sngl Lumen Plas - [id number] Implanted:Qty: 1 on 04/24/2021 at [facility] CR BARD : PERIPHERAL VASCULAR [id number] 02/24/2022 [id number] / / [id number] documented as of this encounter Results * (ABNORMAL) TSH WITH FREE T4 IF INDICATED (10/08/2023 1:16 PM EST) TSH 0.09(L) 0.27 - 4.20 uIU/mL 10/09/2023 3:52 AM EST LABORATORY [facility] Blood Venous blood specimen / Unknown Venipuncture / Unknown 10/08/2023 1:16 PM EST 10/08/2023 1:16 PM EST Kerri Foote MD [place] [address] documented in this encounter Visit Diagnoses Diagnosis [...] the patient have Health Care Power of Spool Sorter? No Code Status History Code Status Date Activated Date Inactivated Comments Full Code 05/23/2021 12:21 PM 05/24/2021 9:38 PM This order reflects the patients wishes and were consensually agreed upon. Question Answer Comments Discussion of Advance Directives occurred with: Patient Healthcare Agents on File Name Relationship Healthcare Agent [facility] p Communication Rose Mary Brothers Spouse Health Care Agent [phone] (Mobile) Care Teams Real Estate Intern Relationship Specialty Start Date End Date Matthew Herrmann PA-C [address] [place] [address] PCP - General Physician Geological Aide 03/22/21 documented as of this encounter
--- OUTSIDE RECORDS SUMMARY | 2024-04-11 14:54 | External Medical Summary | Summary of Care ---
Author Name Unknown Organization [facility] Address [address] [place] [address] Phone [phone] Care Team Providers Care Network Operations Manager Name Role Phone Matthew Herrmann PA-C Primary Care Provider [phone] [phone] Reason for Visit * Episode Based Medications (Routine) - Authorized Specialty Diagnoses / Procedures Referred By Yuli seay Referred To Contact Diagnoses Chemotherapy adverse reaction, initial encounter Chemotherapy induced nausea and vomiting Encounter for antineoplastic chemotherapy Malignant neoplasm of lower lobe, left bronchus or lung (HCC) 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) Procedures RI FOSAPREPITANT INJECTION RI INJ PEMBROLIZUMAB RI PACLITAXEL INJECTION Kerri Foote MD [address] [place] [address] Anc Hem/Onc [place] [address] [place] [address] Referral ID Status Reason Start Date Expiration Date V isits Requested Visits Authorized [id number] Authorized 09/30/2023 04/25/2024 999 99 Encounter Details Date Type Department Care Team (Latest Contact Info) Description 10/03/2023 11:00 AM EST Hem/Onc Treatment Hematology Oncology [facility], [place] [address] [place] [address] Pacheco, Chair 14 Hem/Onc [address] [place] [address] Chemotherapy adverse reaction, initial encounter*; Chemotherapy induced [...] mRNA, LNP-s, No Pre serve, 2-Dose Series (Eastbeam) 09/23/2021 documented as of this encounter Social [...] 12:30 PM EST Laboratory [facility] [phone] [place], Lab Lock [address] [place] [address] 12/03/2023 6:15 AM EST Anticoagulation Pharmacy Call Center 58-60 [place] [address] [facility], [facility] 58 60 [facility] [place] [address] 12/04/2023 11:00 AM EST Office Visit Cardiology, [facility] [address] [place] [address] Santa Quintero CRNP [address] [place] [address] 12/05/2023 4:00 PM EST Appointment Radiology, [address] [address] 12/12/2023 8:45 AM EST Nurse Only Hematology Oncology [facility], [address] [address] [place], Nurse Lab Hem/Onc [address] [place] [address] 12/12/2023 9:30 AM EST Office Visit Hematology Oncology [facility], [address] [phone] Kerri Foote MD [facility] [place] [address] 12/12/2023 10:30 AM EST Hem/Onc Treatment Hematology Oncology [facility], [place] [address] [place] [address] Pacheco, Chair 4 Hem/Onc [address] [place] [address] [phone] 05/06/2024 9:20 AM EDT Office Visit Neurology [address] [place] [address] [place] [address] Kathy Pryor PA-C [address] [place] [address] Health Maintenance Due Date Last [...] this encounter Medical Devices Implanted Type Area Payroll And Benefits Analyst Device Identifier Shelf Expiration Date Model / Serial / Lot Power Port 8fr Sngl Lumen Plas - [id number] Implanted:Qty: 1 on 04/24/2021 at [facility] CR BARD : PERIPHERAL VASCULAR [id number] 02/24/2022 [id number] / / [id number] documented as of this encounter Results * (ABNORMAL) TSH WITH FREE T4 IF INDICATED (10/08/2023 1:16 PM EST) TSH 0.09(L) 0.27 - 4.20 uIU/mL 10/09/2023 3:52 AM EST LAB[facility]ATORY [facility] Blood Venous blood specimen / Unknown Venipuncture / Unknown 10/08/2023 1:16 PM EST 10/08/2023 1:16 PM EST Kerri Foote MD [place] [address] documented in this encounter Visit Diagnoses Diagnosis [...] the patient have Health Care Power of Ex Assistant/Program Director? No Code Status History Code Status Date Activated Date Inactivated Comments Full Code 05/23/2021 12:21 PM 05/24/2021 9:38 PM This order reflects the patients wishes and were consensually agreed upon. Question Answer Comments Discussion of Advance Directives occurred with: Patient Healthcare Agents on File Name Relationship Healthcare Agent [facility] p Communication Rose Mary Brothers Spouse Health Care Agent Care Teams Network Operations Manager Relationship Specialty Start Date End Date Matthew Herrmann PA-C [address] [place] [address] PCP - General Physician Spool Cleaner Hand 03/22/21 documented as of this encounter
--- OUTSIDE RECORDS SUMMARY | 2024-04-11 14:54 | External Medical Summary | Summary of Care ---
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) Procedures ID FOSAPREPITANT INJECTION ID INJ PEMBROLIZUMAB ID PACLITAXEL INJECTION Kerri Foote MD [address] [place] [address] Anc Hem/Onc [place] [address] [place] [address] Referral ID Status Reason Start Date Expiration Date V isits Requested Visits Authorized [id number] Authorized 09/30/2023 04/25/2024 999 99 Encounter Details Date Type Department Care Team (Latest Contact Info) Description 10/03/2023 11:00 AM EST Hem/Onc Treatment Hematology Oncology [facility], [place] [address] [place] [address] Pacheco, Chair 14 Hem/Onc [address] [place] [address] Chemotherapy adverse reaction, initial encounter*; Chemotherapy induced [...] mRNA, LNP-s, No Pre serve, 2-Dose Series ([employer]) 09/23/2021 documented as of this encounter Social [...] 12:30 PM EST Laboratory Laboratory [facility] Center[address] [phone] [place], Lab Lock [address] [place] [address] 12/03/2023 6:15 AM EST Anticoagulation Pharmacy Call Center 58-60 [place] [address] [facility], [facility] 58 60 [facility] [place] [address] 12/04/2023 11:00 AM EST Office Visit Cardiology, [facility] [address] [place] [address] Santa Quintero CRNP [address] [place] [address] 12/05/2023 4:00 PM EST Appointment Radiology, [address] [address] 12/12/2023 8:45 AM EST Nurse Only Hematology Oncology [facility], [address] [address] [place], Nurse Lab Hem/Onc [address] [place] [address] 12/12/2023 9:30 AM EST Office Visit Hematology Oncology [facility], [address] [phone] Kerri Foote MD [facility] [address] 12/12/2023 10:30 AM EST Hem/Onc Treatment Hematology Oncology [facility], [place] [address] [place] [address] Pacheco, Chair 4 Hem/Onc [address] [place] [phone] 05/06/2024 9:20 AM EDT Office Visit Neurology [address] [place] [address] [place] [address] Kathy Pryor PA-C [address] [place] [address] Health Maintenance Due Date Last [...] encounter Medical Devices Implanted Type Area Washer Meat Device Identifier Shelf Expiration Date Model / Serial / Lot Power Port 8fr Sngl Lumen Plas - [id number] Implanted:Qty: 1 on 04/24/2021 at [facility] CR BARD : PERIPHERAL VASCULAR [id number] 02/24/2022 [id number] / / [id number] documented as of this encounter Results * (ABNORMAL) TSH WITH FREE T4 IF INDICATED (10/08/2023 1:16 PM EST) TSH 0.09(L) 0.27 - 4.20 uIU/mL 10/09/2023 3:52 AM EST LABORATORY [facility] Blood Venous blood specimen / Unknown Venipuncture / Unknown 10/08/2023 1:16 PM EST 10/08/2023 1:16 PM EST Kerri Foote MD [place] [address] documented in this encounter Visit Diagnoses Diagnosis [...] the patient have Health Care Power of Strip Picker? No Code Status History Code Status Date Activated Date Inactivated Comments Full Code 05/23/2021 12:21 PM 05/24/2021 9:38 PM This order reflects the patients wishes and were consensually agreed upon. Question Answer Comments Discussion of Advance Directives occurred with: Patient Healthcare Agents on File Name Relationship Healthcare Agent [facility] p Communication Rose Mary Brothers Spouse Health Care Agent Care Teams Rug Inspector Helper Relationship Specialty Start Date End Date Matthew Herrmann PA-C [address] [place] [address] PCP - General Physician Multi Craft Maintenance Technician 03/22/21 documented as of this encounter
--- OUTSIDE RECORDS SUMMARY | 2024-04-11 14:54 | External Medical Summary | Summary of Care ---
Author Name Unknown Organization [facility] Address [address] [place] [address] Phone [phone] Care Team Providers Care Director Of Math Name Role Phone Matthew Herrmann PA-C Primary Care Provider +1 -[phone] Reason for Visit * Reason Comments Outpatient Testing Encounter Details Date Type Department Care Team (Late st Contact Info) Description 11/25/2023 12:[address] [facility] Laboratory Laboratory Patient Service Center[address] [phone] [place], Lab Lock [address] [place] [address] History of pulmonary embolism; Acute deep vein [...] mRNA, LNP-s, No Pre serve, 2-Dose Series (Intellisense) 09/23/2021 documented as of this encounter Social [...] Pharmacy Call Center 58-60 Public [place] [address] [facility] 58 60 [facility] [place] [address] 12/04/2023 11:00 AM EST Office Visit Cardiology, [facility] [address] [facility] [place] [address] Snata Quintero CRNP [address] [place] [address] 12/05/2023 4:00 PM EST Appointment Radiology, [address] [address] 12/12/2023 8:45 AM EST Nurse Only Hematology Oncology [facility], [address] [phone] [place], Nurse Lab Hem/Onc [address] [place] [address] [phone] 12/12/2023 9:30 AM EST Office Visit Hematology Oncology [facility], [address] [address] Kerri Foote MD [facility] [place], [place] [phone] 12/12/2023 10:30 AM EST Hem/Onc Treatment Hematology Oncology [facility], [address] [phone] [place], Chair 4 Hem/Onc [address] [place] [address] [phone] 05/06/2024 9:20 AM EDT Office Visit Neurology [address] [place] [address] [place] [address] Kathy Pryor PA-C [address] [place] [address] Pending Results Name Type Priority Associated Diagnoses [...] this encounter Medical Devices Implanted Type Area Page Technician Device Identifier Shelf Expiration Date Model / Serial / Lot Power Port 8fr Sngl Lumen Plas - [id number] Implanted:Qty: 1 on 04/24/2021 at [facility] CR BARD : PERIPHERAL VASCULAR [id number] 02/24/2022 [id number] / / [id number] Port Implant W/8f Poly Cath - [id number] Implanted:Qty: 1 on 10/15/2023 at [facility] CR BARD : PERIPHERAL VASCULAR [id number] 03/27/2025 [id number] / / [id number] documented as of this encounter Visit Diagnoses [...] the patient have Health Care Power of Donations Attendant? No Code Status History Code Status Date Activated Date Inactivated Comments Full Code 05/23/2021 12:21 PM 05/24/2021 9:38 PM This order reflects the patients wishes and were consensually agreed upon. Question Answer Comments Discussion of Advance Directives occurred with: Patient Healthcare Agents on File Name Relationship [facility] Communication Rose Mary Brothers Spouse Health Care Agent [phone] (Mobile) Care Teams Director Of Math Relationship Specialty Start Date End Date Matthew Herrmann PA-C [address] [place] [address] PCP - General Physician Puncher And Fastener 03/22/21 documented as of this encounter
--- OUTSIDE RECORDS SUMMARY | 2024-04-11 14:54 | External Medical Summary | Summary of Care ---
Author Name Unknown Organization [facility] Address [address] [place] [address] Phone [phone] Care Team Providers Care Edger Hand Name Role Phone Matthew Herrmann PA-C Primary Care Provider +1 -[phone] Reason for Visit * Reason Onset Date Comments Appointment 08/28/2023 [facility] Encounter Details Date Type Department Care Team (Late st Contact Info) Description 08/28/2023 Telephone Balance [facility] [address] [place] [address] Brandon Machado, DPT [address] [place] [address] Appointment ([facility] appt ) Allergies Active Allergy Reactions Criticality Noted Date Comments Carboplatin High 11/14/2021 Dyspnea, chest pain, hypoxia, sore throat, edema throat, flushing, mild hypotension Isosorbide Nitrate Other (Please comment) 07/22/2023 Headache documented as of this encounter (statuses as of 11/27/2023) Medications Medication Sig Dispensed Refills Start Date [...] mouth daily. 90 Tablet 3 08/28/2023 Active documented as of this encounter (statuses as of 11/27/2023) Active Problems Problem Noted Date Diagnosed Date [...] as of this encounter (statuses as of 11/27/2023) Resolved Problems Problem Noted Date Diagnosed Date Resolved Date MSSA bacteremia 08/01/2021 08/07/2021 Sepsis 08/01/2021 08/07/2021 COPD, group B, by GOLD 2017 classification 05/08/2021 06/21/2021 Overview: Per COPD GOLD Classification Obstructive lung disease 04/10/2021 Overview: Per COPD GOLD Classification documented as of this encounter (statuses as of 11/27/2023) Immunizations Name Administration Dates Next Due COVID-19 mRNA, LNP-s, No Pre serve, 2-Dose Series (CodeNgo) 09/23/2021 documented as of this encounter Social [...] encounter Miscellaneous Notes * Telephone Encounter - Rose Mary Godinez OSA - 08/28/2023 12:38 PM EDT Patient's calling asking for sooner appt with Balance ? He is on for 09/26 & said he is so dizzy daily he is throwing up and they had to cancel before because he had a stroke. [phone] documented in this encounter Plan of Treatment Upcoming Encounters Date Type Department Care Team (Late st Contact Info) Description 12/02/2023 12:30 PM EST Laboratory Laboratory [facility] Service Center[address] [phone] [facility] Lock [address] [place] [address] 12/03/2023 6:15 AM EST Anticoagulation Pharmacy Call Center 58[address] [place] [address] [facility], [facility] 58 [address] [place] [address] 12/04/2023 11:00 AM EST Office Visit Cardiology, [facility] 132 [facility] [place] [address] Santa Quintero CRNP 132 [facility] [place] [address] 12/05/2023 4:00 PM EST Appointment Radiology, [place] [address] [place] [phone] 12/12/2023 8:45 AM EST Nurse Only Hematology Oncology [facility], [place] [address] [place] [address] [place], Nurse Lab Hem/Onc [facility] [address] [place], [place] [phone] 12/12/2023 9:30 AM EST Office Visit Hematology Oncology [facility], [place] [address] [place] [phone] Kerri Foote MD [facility] [place] [address] 12/12/2023 10:30 AM EST Hem/Onc Treatment Hematology Oncology [facility], [place] [address] [facility] [place] [address] Pacheco, Chair 4 Hem/Onc [address] [place] [address] 05/06/2024 9:20 AM EDT Office Visit Neurology [address] [place] [address] [place] [address] Kathy Pryor PA-C [address] [place] [address] Health Maintenance Due Date Last Done Comments [...] (FLU shot) (#1) 2023 HbA1c 11/06/2024 11/06/2023, 0705/2023, 09/19/2021, Additional history exists Lipid Panel 09/19/2026 09/19/2021, 10/0 12/2012, 04/25/2010 Colonoscopy 08/13/2029 08/13/2019, 08/13/2019 Colorectal Cancer Screening 08/13/2029 GARDASIL-HPV IMMUNIZATION SERIES Aged Out No longer eligible based on patient's age to complete this topic MENINGOCOCCAL (MENACTRA/MENVEO) Aged Out No longer eligible based on patient's age to complete this topic documented as of this encounter Medical Devices Implanted Type Area Cable Layer Device Identifier Shelf Expiration Date Model / Serial / Lot Power Port 8fr Sngl Lumen Plas - [id number] Implanted:Qty: 1 on 04/24/2021 at [facility] CR BARD : PERIPHERAL VASCULAR [id number] 02/24/2022 [id number] / / [id number] Port Implant W/8f Poly Cath - [id number] Implanted:Qty: 1 on 10/15/2023 at [facility] CR BARD : PERIPHERAL VASCULAR [id number] 03/27/2025 [id number] / / [id number] documented as of this encounter Additional Health Concerns Infection Onset Date Last Indicated Resolved Time COVID-19 (confirmed) 03/19/2022 03/19/2022 Respiratory Rule-Out 10/29/2023 10/29/2023 024 3:34 AM EST documented as of this encounter [...] the patient have Health Care Power of Business Computers Teacher? No Code Status History Code Status Date Activated Date Inactivated Comments Full Code 05/23/2021 12:21 PM 05/24/2021 9:38 PM This order reflects the patients wishes and were consensually agreed upon. Question Answer Comments Discussion of Advance Directives occurred with: Patient Healthcare Agents on File Name Relationship Healthcare Agent Relationshi p Communication Rose Mary Brothers Spouse Health Care Agent Care Teams Edger Hand Relationship Specialty Start Date End Date Matthew Herrmann PA-C [address] [place], [place] [address] [phone] PCP - General Physician Fine Arts Chair 03/22/21 documented as of this encounter
--- OUTSIDE RECORDS SUMMARY | 2024-04-11 14:54 | External Medical Summary | Summary of Care ---
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) Procedures MT FOSAPREPITANT INJECTION MT INJ PEMBROLIZUMAB MT PACLITAXEL INJECTION Kerri Foote MD [address] [place] [address] Anc Hem/Onc [place] [address] [place] [address] Referral ID Status Reason Start Date Expiration Date V isits Requested Visits Authorized [id number] Authorized 09/30/2023 04/25/2024 999 99 Encounter Details Date Type Department Care Team (Latest Contact Info) Description 10/03/2023 11:00 AM EST Hem/Onc Treatment Hematology Oncology [facility], [place], [place] [address] [place] [address] [place], Chair 14 Hem/Onc [address] [place] [address] Chemotherapy adverse reaction, initial encounter*; Chemotherapy induced [...] mRNA, LNP-s, No Pre serve, 2-Dose Series ([employer]) 09/23/2021 documented as of this encounter Social [...] 12:30 PM EST Laboratory [facility] [phone] [place], Lab [place] [address] [place] [address] 12/03/2023 6:15 AM EST Anticoagulation Pharmacy Call Center [address] [place] [address] [facility], [facility] 58 60 [facility] [place] [address] 12/04/2023 11:00 AM EST Office Visit Cardiology, [facility] [address] [place] [address] Santa Quintero CRNP [address] [facility] [place] [address] 12/05/2023 4:00 PM EST Appointment Radiology, [address] [phone] 12/12/2023 8:45 AM EST Nurse Only Hematology Oncology [facility] [place], [address] [address] [place], Nurse Lab Hem/Onc [address] [place] [address] 12/12/2023 9:30 AM EST Office Visit Hematology Oncology [facility] [place], [address] [phone] Kerri Foote MD [facility] [place] [address] 12/12/2023 10:30 AM EST Hem/Onc Treatment Hematology Oncology [facility] [place], [place] [address] [place] [address] [place], Chair 4 Hem/Onc [address] [place] [phone] 05/06/2024 9:20 AM EDT Office Visit Neurology [address] [place] [address] [place] [address] Kathy Pryor PA-C [address] [place] [address] Health Maintenance Due Date Last [...] this encounter Medical Devices Implanted Type Area Apron Worker Device Identifier Shelf Expiration Date Model / Serial / Lot Power Port 8fr Sngl Lumen Plas - [id number] Implanted:Qty: 1 on 04/24/2021 at [facility] CR BARD : PERIPHERAL VASCULAR [id number] 02/24/2022 [id number] / / [id number] documented as of this encounter Results * (ABNORMAL) TSH WITH FREE T4 IF INDICATED (10/08/2023 1:16 PM EST) TSH 0.09(L) 0.27 - 4.20 uIU/mL 10/09/2023 3:52 AM EST LABORATORY [facility] Blood Venous blood specimen / Unknown Venipuncture / Unknown 10/08/2023 1:16 PM EST 10/08/2023 1:16 PM EST Kerri Foote MD [place] [address] documented in this encounter Visit Diagnoses Diagnosis [...] the patient have Health Care Power of Psychologists? No Code Status History Code Status Date Activated Date Inactivated Comments Full Code 05/23/2021 12:21 PM 05/24/2021 9:38 PM This order reflects the patients wishes and were consensually agreed upon. Question Answer Comments Discussion of Advance Directives occurred with: Patient Healthcare Agents on File Name Relationship Healthcare Agent [facility] p Communication Rose Mary Brothers Spouse Health Care Agent Care Teams Alternative Education Teacher Relationship Specialty Start Date End Date Matthew Herrmann PA-C [address] [place] [phone] PCP - General Physician Unleavened Dough Mixer 03/22/21 documented as of this encounter
--- OUTSIDE RECORDS SUMMARY | 2024-04-11 14:55 | External Medical Summary ---
Author Name Unknown Address Unknown Organization K01:[facility] [place] [address] [place] [address] Laboratory Report Ordering Provider Test Date Status CAIN STEELEBRITTANY 11/21/2023 08:14:44 Final Observation Date Value Abnormality Reference (Units ) Status Magnesium 11/21/2023 08:14:44 2.1 1.5-2.6 (m g/dL) Final Performing Location [facility] [address] [place] [address]
--- OUTSIDE RECORDS SUMMARY | 2024-04-11 14:55 | External Medical Summary ---
Author Name Unknown Address Unknown Organization [facility] [address] [place] [address] Laboratory Report Ordering Provider Test Date Status JOSE STEELE 11/21/2023 08:14:44 Final Observation Date Value Abnormality Reference (Units ) Status Phosphate 11/21/2023 08:14:44 3.5 2.5-4.8 (m g/dL) Final Performing Location [facility] - [address] [place] [address]
--- OUTSIDE RECORDS SUMMARY | 2024-04-11 14:55 | External Medical Summary | Summary of Care ---
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) Matthew Herrmann PA-C [address] [place] [id number] Referral ID Status Reason Start Date Expiration Date Visits Requested Visits Authorized [id number] Authorized Specialty Services Required 06/11/2023 06/11/2024 999 [id number] Encounter Details Date Type Department Care Team ([facility] st Contact Info) Description 11/21/2023 8:00 AM EST Nurse Only Hematology Oncology [facility], [place] [address] [place], [place] [phone] [place], Nurse Lab Hem/Onc [address] [place], [place] [phone] Arrived Allergies Active Allergy Reactions Criticality Noted Date Comments Carboplatin High 11/14/2021 Dyspnea, chest pain, hypoxia, sore throat, edema throat, flushing, mild hypotension Isosorbide Nitrate Other (Please comment) 07/22/2023 Headache documented as of this encounter (statuses as of 11/21/2023) Medications Medication Sig Dispensed Refills Start Date [...] of Breath. 18 g 0 10/29/2023 Active documented as of this encounter (statuses as of 11/21/2023) Active Problems Problem Noted Date Diagnosed Date [...] as of this encounter (statuses as of 11/21/2023) Resolved Problems Problem Noted Date Diagnosed Date Resolved Date MSSA bacteremia 08/01/2021 08/07/2021 Sepsis 08/01/2021 08/07/2021 COPD, group B, by GOLD 2017 classification 05/08/2021 06/21/2021 Overview: Per COPD GOLD Classification Obstructive lung disease 04/10/2021 Overview: Per COPD GOLD Classification documented as of this encounter (statuses as of 11/21/2023) Immunizations Name Administration Dates Next Due COVID-19 mRNA, LNP-s, No Pre serve, 2-Dose Series ([employer]) 09/23/2021 documented as of this encounter Social [...] Care Team (Late st Contact Info) Description 11/21/2023 9:00 AM EST Hem/Onc Treatment Hematology Oncology [facility], [address] [address] [place], Chair 4 Hem/Onc [address] [place] [address] [phone] Arrived 11/25/2023 6:15 AM EST Anticoagulation Pharmacy Call Center WB [address] [place] [address] Ccps, [facility] 58 60 [place] [address] 12/04/2023 11:00 AM EST Office Visit Cardiology, [facility] [address] [place] [address] Santa Quintero CRNP [address] [place] [address] 12/12/2023 8:45 AM EST Nurse Only Hematology Oncology [facility], [address] [phone] [place], Nurse Lab Hem/Onc [address] [place] [address] 12/12/2023 9:30 AM EST Office Visit Hematology Oncology apper [facility], [address] [phone] Kerri Foote MD [facility] [address] [place], [place] [phone] 12/12/2023 10:30 AM EST Hem/Onc Treatment Hematology Oncology [facility], [place] [address] [place] [address] [place], Chair 4 Hem/Onc [address] [place] [phone] 05/06/2024 9:20 AM EDT Office Visit Neurology [place] [address] [facility] [place] [address] Kathy Pryor PA-C 200 [facility] [place] [address] Health Maintenance Due Date Last Done Comments [...] encounter Medical Devices Implanted Type Area Lead Caster Helper Device Identifier Shelf Expiration Date Model / Serial / Lot Power Port 8fr Sngl Lumen Plas - [id number] Implanted:Qty: 1 on 04/24/2021 at [facility] CR BARD : PERIPHERAL VASCULAR [id number] 02/24/2022 [id number] / / [id number] Port Implant W/8f Poly Cath - [id number] Implanted:Qty: 1 on 10/15/2023 at [facility] CR BARD : PERIPHERAL VASCULAR [id number] 03/27/2025 [id number] / / [id number] documented as of this encounter Procedures Procedure Name Priority Date/Time Associated Diagnosis Comments DIFFERENTIAL, AUTOMATED STAT 11/21/2023 8:14 AM EST Primary malignant neoplasm of left lower lobe of lung (HCC) 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) Malignant neoplasm of lower lobe, left bronchus or lung (HCC) CBC STAT 11/21/2023 8:14 AM EST Primary malignant neoplasm of left lower lobe of lung (HCC) 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 Neutrophils % 75.0 40.0 - 75.0 % 11/21/2023 8:[address] [facility] Lymphocytes % 16.1(L) 18.0 - 42.0 % 11/21/2023 8:[address] [facility] Monocytes % 6.0 1.0 - 11.0 % 11/21/2023 8:[address] [facility] Eosinophils % 0.2 0.0 - 6.0 % 11/21/2023 8:20 AM EST LABORATORY [facility] Basophils % 0.5 0.0 - 2.0 % 11/21/2023 8:20 AM EST LABORATORY [facility] Immature Granulocytes % 2.2(H) 0.0 - 2.0 % 11/21/2023 8:20 AM EST LABORATORY [facility] Absolute Neutrophils 10.58(H) 1.80 - 7.70 K/uL 11/21/2023 8:20 AM EST LABORATORY [facility] Absolute Lymphocytes 2.28 1.00 - 4.80 K/ul 11/21/2023 8:20 AM EST LABORATORY [facility] Absolute Monocytes 0.85 0.00 - 1.10 K/uL 11/21/2023 8:20 AM EST LABORATORY [facility] Absolute Eosinophils 0.03 0.00 - 0.70 K/uL 11/21/2023 8:20 AM EST LABORATORY [facility] Absolute Basophils 0.07 0.00 - 0.20 K/uL 11/21/2023 8:20 AM EST LABORATORY [facility] Absolute Immature Granulocytes 0.31(H) 0.00 - 0.20 K/uL 11/21/2023 8:20 AM EST LABORATORY [facility] Blood Blood sample taken from central line / Unknown Central Line / Unknown 11/21/2023 8:14 AM EST 11/21/2023 8:18 AM EST Kerri Foote MD LAB BLOOD ORDERAB LES Performing Organization Address City/State/[facility] Co de Phone Number LABORATORY [facility] [address] [place] [address] * (ABNORMAL) CBC (11/21/2023 8:14 AM EST) WBC 14.12(H) 4.00 - 10.80 K/uL 11/21/2023 8:20 AM EST LABORATORY [facility] RBC 4.25 4.50 - 5.25 M/uL 11/21/2023 8:20 AM EST LABORATORY [facility] HGB 13.7(L) 14.0 - 16.8 g/dL 11/21/2023 8:20 AM EST LABORATORY [facility] HCT 41.1 40.0 - 48.4 % 11/21/2023 8:20 AM EST LABORATORY [facility] MCV 96.7 82.0 - 99.5 fL 11/21/2023 8:20 AM EST LABORATORY [facility] MCH 32.2 27.0 - 34.0 pg 11/21/2023 8:20 AM EST LABORATORY [facility] MCHC 33.3 32.0 - 36.0 g/dL 11/21/2023 8:20 AM EST LABORATORY [facility] RDW 17.2 11.5 - 15.5 % 11/21/2023 8:20 AM EST LABORATORY [facility] PLT 229 140 - 400 K/uL 11/21/2023 8:20 AM EST LABORATORY [facility] MPV 9.5 6.6 - 11.1 fL 11/21/2023 8:20 AM EST LABORATORY [facility] nRBCs 0 <=0 /100 WBCs 11/21/2023 8:20 AM EST LABORATORY [facility] Blood Blood sample taken from central line / Unknown Central Line / Unknown 11/21/2023 8:14 AM EST 11/21/2023 8:18 AM EST Kerri Foote MD LAB BLOOD ORDERAB LES LABORATORY [facility] [address] [place], [place] [phone] documented in this encounter Visit Diagnoses Diagnosis Non-small cell [...] the patient have Health Care Power of Trailer Rental Clerk? No Code Status History Code Status Date Activated Date Inactivated Comments Full Code 05/23/2021 12:21 PM 05/24/2021 9:38 PM This order reflects the patients wishes and were consensually agreed upon. Question Answer Comments Discussion of Advance Directives occurred with: Patient Healthcare Agents on File Name Relationship Healthcare Agent [facility] Communication Rose Mary Brothers Spouse Health Care Agent [id number] (Mobile) Care Teams Web Site Developer Relationship Specialty Start Date End Date Matthew Herrmann PA-C [address] [place], [place] [phone] [id number] PCP - General Physician Electrifier Operator 03/22/21 documented as of this encounter
--- OUTSIDE RECORDS SUMMARY | 2024-04-11 14:55 | External Medical Summary | Summary of Care ---
Author Name Unknown Organization [facility] Address [address] [place] [address] Phone [phone] Care Team Providers Care Merchandise Associate Name Role Phone Matthew Herrmann PA-C Primary Care Provider [phone] Encounter Details Date Type Department Care Team (Late st Contact Info) Description 11/20/2023 Orders Only Hematology Oncology [facility] [address] [place] [address] Kerri Foote MD [address] [place] [address] Primary malignant neoplasm of left [...] as of this encounter (statuses as of 11/20/2023) Medications Medication Sig Dispensed Refills Start Date [...] as of this encounter (statuses as of 11/20/2023) Active Problems Problem Noted Date Diagnosed Date [...] as of this encounter (statuses as of 11/20/2023) Resolved Problems Problem Noted Date Diagnosed Date Resolved Date MSSA bacteremia 08/01/2021 08/07/2021 Sepsis 08/01/2021 08/07/2021 COPD, group B, by GOLD 2017 classification 05/08/2021 06/21/2021 Overview: Per COPD GOLD Classification Obstructive lung disease 04/10/2021 Overview: Per COPD GOLD Classification documented as of this encounter (statuses as of 11/20/2023) Immunizations Name Administration Dates Next Due COVID-19 mRNA, LNP-s, No Pre serve, 2-Dose Series ([employer]) 09/23/2021 documented as of this encounter Social [...] Team (Late st Contact Info) Description 11/21/2023 6:15 AM EST Anticoagulation Pharmacy Call Center [address] [place] [address] [facility] [address] [place] [address] 11/21/2023 7:20 AM EST Laboratory Laboratory Hem/Onc [facility], [address] [phone] [place], Lab Med4 [address] [place] [address] [phone] 11/21/2023 8:00 AM EST Office Visit Hematology Oncology [facility], [address] [phone] Nicole Carrillo PA-C [facility] [place] [address] 11/21/2023 9:00 AM EST Hem/Onc Treatment Hematology Oncology [facility], [address] [phone] [place], Chair 4 Hem/Onc [address] [place] [address] [phone] 12/04/2023 11:00 AM EST Office Visit Cardiology, [facility] [address] [place] [address] Santa Quintero CRNP [address] [place] [address] 12/12/2023 8:45 AM EST Nurse Only Hematology Oncology [address] [phone] [place], Nurse Lab Hem/Onc [address] [place] [address] [phone] 12/12/2023 9:30 AM EST Office Visit Hematology Oncology [facility], [address] [phone] Kerri Foote MD [facility] [place] [address] 12/12/2023 10:30 AM EST Hem/Onc Treatment Hematology Oncology [facility], [place] [address] [place] [address] [place], Chair 4 Hem/Onc [address] [place] [address] 05/06/2024 9:20 AM EDT Office Visit Neurology [address] [place] [address] [place] [address] Kathy Pryor PA-C [address] [place] [address] Scheduled Orders Name Type Priority Associated Diagnoses Orde r Schedule CBC WITH WBC DIFFERENTIAL Lab STAT Primary malignant neoplasm of left lower lobe of lung (HCC) 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) Malignant neoplasm of lower lobe, left bronchus or lung (HCC) Expected: 11/20/2023 (Approximate), Expires: 11/20/2024 COMPREHENSIVE METABOLIC PANEL Lab STAT Primary malignant neoplasm of left lower lobe of lung (HCC) 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) Malignant neoplasm of lower lobe, left bronchus or lung (HCC) Expected: 11/20/2023 (Approximate), Expires: 11/20/2024 MAGNESIUM Lab STAT Primary malignant neoplasm of left lower lobe of lung (HCC) 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) Malignant neoplasm of lower lobe, left bronchus or lung (HCC) Expected: 11/20/2023 (Approximate), Expires: 11/20/2024 PHOSPHORUS Lab STAT Primary malignant neoplasm of left lower lobe of lung (HCC) 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) Malignant neoplasm of lower lobe, left bronchus or lung (HCC) Expected: 11/20/2023 (Approximate), Expires: 11/20/2024 TSH Lab STAT Primary malignant neoplasm of left lower lobe of lung (HCC) 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) Malignant neoplasm of lower lobe, left bronchus or lung (HCC) Expected: 11/20/2023 (Approximate), Expires: 11/20/2024 Health Maintenance Due Date Last Done Comments [...] this encounter Medical Devices Implanted Type Area Shipwright Device Identifier Shelf Expiration Date Model / Serial / Lot Power Port 8fr Sngl Lumen Plas - [id number] Implanted:Qty: 1 on 04/24/2021 at [facility] CR BARD : PERIPHERAL VASCULAR [id number] 02/24/2022 [id number] / / [id number] Port Implant W/8f Poly Cath - [id number] Implanted:Qty: 1 on 10/15/2023 at [facility] CR BARD : PERIPHERAL VASCULAR [id number] 03/27/2025 [id number] / / [id number] documented as of this encounter Visit Diagnoses [...] the patient have Health Care Power of Evaluation Analyst? No Code Status History Code Status Date Activated Date Inactivated Comments Full Code 05/23/2021 12:21 PM 05/24/2021 9:38 PM This order reflects the patients wishes and were consensually agreed upon. Question Answer Comments Discussion of Advance Directives occurred with: Patient Healthcare Agents on File Name Relationship Healthcare Agent Relationshi p Communication Rose Mary Brothers Spouse Health Care Agent [phone] (Mobile) Care Teams Merchandise Associate Relationship Specialty Start Date End Date Matthew Herrmann PA-C [address] [place] [address] [place] [address] PCP - General Physician General Accountant 03/22/21 documented as of this encounter
--- OUTSIDE RECORDS SUMMARY | 2024-04-11 14:55 | External Medical Summary | Summary of Care ---
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) Matthew Herrmann PA-C [address] [place] [id number] Referral ID Status Reason Start Date Expiration Date Visits Requested Visits Authorized [id number] Authorized Specialty Services Required 06/11/2023 06/11/2024 [id number] Encounter Details Date Type Department Care Team (Latest Contact Info) Description 11/21/2023 9:00 AM EST Hem/Onc Treatment Hematology Oncology [facility] [place] [facility], [place] [address] [place] [address] [place], [facility] 4 Hem/Onc [facility] [address] [place], [place] [id number] Chemotherapy adverse reaction, initial encounter*; Chemotherapy induced [...] mRNA, LNP-s, No Pre serve, 2-Dose Series (iMusicTweet) 09/23/2021 documented as of this encounter Social [...] of this encounter Nursing Notes * Nova Smith, RN - 11/21/2023 8:35 AM EST Per Nicole Carrillo PA-C it is OK to get keytruda and taxol today, adding IV lasix to plan documented in this encounter Plan of Treatment Upcoming Encounters Date Type Department Care Team (Latest Contact Info) Description 11/21/2023 6:15 PM EST Anticoagulation Pharmacy Call Center [address] [place] [address] [address] [place] [address] Acute deep vein thrombosis (DVT) of proximal vein of right lower extremity (HCC)*; Abnormal CT scan of lung; History of pulmonary embolism; 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) 11/25/2023 12:30 PM EST [facility] [phone] [address] 11/25/2023 6:00 PM EST Anticoagulation Pharmacy Call Center [address] [place] [address] [address] [place] [address] 12/04/2023 11:00 AM EST Office Visit Cardiology, [facility] [address] [facility] [place] [address] Santa Quintero CRNP [address] [place] [address] 12/05/2023 4:00 PM EST Appointment Radiology, [address] [phone] 12/12/2023 8:45 AM EST Nurse Only Hematology Oncology [facility], [address] [address] [place], Nurse Lab Hem/Onc [address] [place] [address] 12/12/2023 9:30 AM EST Office Visit Hematology Oncology [facility], [address] [phone] Kerri Foote MD [address] [place] [address] 12/12/2023 10:30 AM EST Hem/Onc Treatment Hematology Oncology [facility], [address] [address] [place], Chair 4 Hem/Onc [address] [place] [address] 05/06/2024 9:20 AM EDT Office Visit Neurology 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) Expected: 11/21/2023 (Approximate), Expires: 05/19/2024 GLUCOSE Lab STAT Chemotherapy adverse reaction, initial encounter Chemotherapy induced nausea and vomiting Encounter for antineoplastic chemotherapy Malignant neoplasm of lower lobe, left bronchus or lung (HCC) 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) Expected: 11/21/2023 (Approximate), Expires: 05/19/2024 CBC WITH WBC DIFFERENTIAL Lab STAT Chemotherapy adverse reaction, initial encounter Chemotherapy induced nausea and vomiting Encounter for antineoplastic chemotherapy Malignant neoplasm of lower lobe, left bronchus or lung (HCC) 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) Expected: 11/21/2023 (Approximate), Expires: 05/19/2024 COMPREHENSIVE METABOLIC PANEL Lab STAT Chemotherapy adverse reaction, initial encounter Chemotherapy induced nausea and vomiting Encounter for antineoplastic chemotherapy Malignant neoplasm of lower lobe, left bronchus or lung (HCC) 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) Expected: 11/21/2023 (Approximate), Expires: 05/19/2024 Health Maintenance Due Date Last Done Comments [...] this encounter Medical Devices Implanted Type Area Food Mixer Repairer Device Identifier Shelf Expiration Date Model / Serial / Lot Power Port 8fr Sngl Lumen Plas - [id number] Implanted:Qty: 1 on 04/24/2021 at [facility] CR BARD : PERIPHERAL VASCULAR [id number] 02/24/2022 [id number] / / [id number] Port Implant W/8f Poly Cath - [id number] Implanted:Qty: 1 on 10/15/2023 at [facility] CR BARD : PERIPHERAL VASCULAR [id number] 03/27/2025 [id number] / / [id number] documented as of this encounter Visit Diagnoses Diagnosis Chemotherapy adverse reaction, initial encounter- Primary Chemotherapy induced nausea and vomiting Nausea with vomiting Encounter for antineoplastic chemotherapy Malignant neoplasm of lower lobe, left bronchus or lung (HCC) 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) Acute deep vein thrombosis (DVT) of proximal vein of right lower extremity (HCC)- Primary Abnormal CT scan of lung Other nonspecific abnormal finding of lung field History of pulmonary embolism Personal history of pulmonary embolism 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) documented in this encounter Administered Medications Active Administered Medications - up to 3 most recent administrations Medication Order MAR Action Action Date Dose Rate Site diphenhydrAMINE (Benadryl) inj 50 mg 50 mg, IV Push, ONCE PRN Other, Hypersensitivity Reaction, Starting on Sat11/21/23 at 0916, Until Sat11/22/23 at 0915, For 24 hours EPINEPHrine 1 MG/ML inj 0.3 mg 0.3 mg, Intramuscular, ONCE PRN Other, Hypersensitivity Reaction or Anaphylaxis, Starting on Sat11/21/23 at 0916, Until Sat11/22/23 at 0915, For 24 hours hEParin 100 UNIT/ML Lock Flush inj 500 Units 500 Units (5 mL), IV Lock, PRN Other, IV Flush, Starting on Sat11/21/23 at 0916, Until Sat11/22/23 at 0915, For 24 hours, Do not flush if lock, PICC, or central line not in place; IV infusing or unable to flush. Given 11/21/2023 1:37 PM EST 500 Units Hydrocortisone Sod Suc (PF) (Solu-Cortef) inj 100 mg 100 mg, IV Push, ONCE PRN Other, Hypersensitivity Reaction, Starting on Sat11/21/23 at 0916, Until Sat11/22/23 at 0915, For 24 hours LORAzepam (Ativan) tab 0.5 mg 0.5 mg, Oral, ONCE PRN Anxiety, Nausea, Starting on Sat11/21/23 at 1030, Until Discontinued NSS infusion Intravenous, at 50 mL/hr, PRN, Starting on Sat11/21/23 at 1030, Until Discontinued, Maintenance line Start Infusion 11/21/2023 9:30 AM EST 50 mL/hr oxygen GAS Inhalation, OXYGEN, First dose on Sat11/21/23 at 1000, Until Discontinued, Device/Managed by: Low [...] Push, PRN Other, IV Flush, Starting on Sat11/21/23 at 0916, Until Sat11/22/23 at 0915, For 24 hours, Do not flush if lock, PICC, or central line not in place; IV infusing or unable to flush. Given 11/21/2023 1:37 PM EST 10 mL Given 11/21/2023 9:30 AM EST 10 mL Inactive Administered Medications - up to 3 most recent administrations Medication Order MAR Action Action Date Dose Rate Site diphenhydrAMINE (Benadryl) cap 50 mg 50 mg, Oral, ONCE, On Sat11/21/23 at 1030, For 1 dose Given 11/21/2023 9:30 AM EST 50 mg Famotidine (Pepcid) tab 20 mg 20 mg, Oral, ONCE, On Sat11/21/23 at 1030, For 1 dose Given 11/21/2023 9:30 AM EST 20 mg Furosemide (Lasix) inj 40 mg 40 mg, IV Push, ONCE, On Sat11/21/23 at 1000, For 1 dose Given 11/21/2023 9:34 AM EST 40 mg ondansetron (Zofran) tab 8 mg 8 [...] 9:48 AM EST 200 mg 200 mL/hr documented in [...] the patient have Health Care Power of [place]? No Code Status History Code Status Date Activated Date Inactivated Comments Full Code 05/23/2021 12:21 PM 05/24/2021 9:38 PM This order reflects the patients wishes and were consensually agreed upon. Question Answer Comments Discussion of Advance Directives occurred with: Patient Healthcare Agents on File Name Relationship [facility] Rose Mary Brothers Spouse Health Care Agent [id number] [id number] (Mobile) Care Teams Cloth Bleaching Range Tender Relationship Specialty Start Date End Date Matthew Herrmann PA-C [address] [place] [phone] PCP - General Physician Records Custodian 03/22/21 documented as of this encounter
--- OUTSIDE RECORDS SUMMARY | 2024-04-11 14:55 | External Medical Summary | Summary of Care ---
Author Name Unknown Organization [facility] Address [address] [place] [address] Phone [phone] Care Team Providers Care Client Onboarding Analyst Name Role Phone Matthew Herrmann PA-C Primary Care Provider [phone] Reason for Visit * Reason Onset Date Comments Appointment 08/20/2023 Encounter Details Date Type Department Care Team (Late st Contact Info) Description 08/20/2023 Telephone Balance [facility] [address], [place] [phone] Services, Scheduling [address] [place] [address] Appointment Allergies Active Allergy Reactions Criticality Noted Date Comments Carboplatin High 11/14/2021 Dyspnea, chest pain, hypoxia, sore throat, edema throat, flushing, mild hypotension Isosorbide Nitrate Other (Please comment) 07/22/2023 Headache documented as of this encounter (statuses as of 11/19/2023) Medications Medication Sig Dispensed Refills Start Date [...] the morning. 90 Tablet 3 06/03/2023 Active documented as of this encounter (statuses as of 11/19/2023) Active Problems Problem Noted Date Diagnosed Date [...] as of this encounter (statuses as of 11/19/2023) Resolved Problems Problem Noted Date Diagnosed Date Resolved Date MSSA bacteremia 08/01/2021 08/07/2021 Sepsis 08/01/2021 08/07/2021 COPD, group B, by GOLD 2017 classification 05/08/2021 06/21/2021 Overview: Per COPD GOLD Classification Obstructive lung disease 04/10/2021 Overview: Per COPD GOLD Classification documented as of this encounter (statuses as of 11/19/2023) Immunizations Name Administration Dates Next Due COVID-19 mRNA, LNP-s, No Pre serve, 2-Dose Series (Parametric Sound) 09/23/2021 documented as of this encounter Social [...] encounter Miscellaneous Notes * Telephone Encounter - Ursula Singleton OSA - 08/20/2023 8:25 AM EDT Pt is in the ED at [facility] and will likely be admitted. Rose Mary calling to cancel appt for today. Please call [phone] to reschedule. She has his phone and should be able to answer. documented in this encounter Plan of Treatment Upcoming Encounters Date Type Department Care Team (Late st Contact Info) Description 11/21/2023 6:15 AM EST Anticoagulation Pharmacy Call Center [address] [place] [address] C[address], [facility] [address] [place] [address] 11/21/2023 7:20 AM EST Laboratory Laboratory Hem/Onc [facility] [place] [address] [place] [phone] [place], Lab Med4 [facility] [address] [place], [place] [phone] 11/21/2023 8:00 AM EST Office Visit Hematology Oncology [facility], [place] [address] [place] [phone] Nicole Carrillo PA-C [facility] [address] [place], [place] [phone] 11/21/2023 9:00 AM EST Hem/Onc Treatment Hematology Oncology [facility], [address] [phone] [place], Chair 4 Hem/Onc [address] [place] [phone] 12/04/2023 11:00 AM EST Office Visit Cardiology, [facility] [address] [facility] [place] [address] Santa Quintero CRNP [address] [facility] [place] [address] 12/12/2023 8:45 AM EST Nurse Only Hematology Oncology [facility], [place] [address] [place], [place] [phone] [place], Nurse Lab Hem/Onc [address] [place] [phone] 12/12/2023 9:30 AM EST Office Visit Hematology Oncology [facility], [place] [address] [place] [facility] [place] [address] Kerri Foote MD [address] [place], [place] [phone] 12/12/2023 10:30 AM EST Hem/Onc Treatment Hematology Oncology [facility], [place] [address] [place], [place] [phone] [place], Chair 4 Hem/Onc [facility] [address] [place], [place] [phone] 05/06/2024 9:20 AM EDT Office Visit Neurology [address] [place] [address] [place] [address] Kathy Pryor PA-C [address] [place] [phone] Health Maintenance Due Date Last Done Comments [...] this encounter Medical Devices Implanted Type Area Stamp Machine Servicer Device Identifier Shelf Expiration Date Model / Serial / Lot Power Port 8fr Sngl Lumen Plas - [id number] Implanted:Qty: 1 on 04/24/2021 at [facility] CR BARD : PERIPHERAL VASCULAR [id number] 02/24/2022 [id number] / / [id number] Port Implant W/8f Poly Cath - [id number] Implanted:Qty: 1 on 10/15/2023 at [facility] CR BARD : PERIPHERAL VASCULAR [id number] 03/27/2025 [id number] / / [id number] documented as of this encounter Additional Health [...] the patient have Health Care Power of Ocean Import Representative? No Code Status History Code Status Date Activated Date Inactivated Comments Full Code 05/23/2021 12:21 PM 05/24/2021 9:38 PM This order reflects the patients wishes and were consensually agreed upon. Question Answer Comments Discussion of Advance Directives occurred with: Patient Healthcare Agents on File Name Relationship Healthcare Agent [facility] p Communication Rose Mary Brothers Spouse Health Care Agent Care Teams Client Onboarding Analyst Relationship Specialty Start Date End Date Matthew Herrmann PA-C [address] [place] [phone] PCP - General Physician Pantograph Machine Set Up Operator 03/22/21 documented as of this encounter
--- OUTSIDE RECORDS SUMMARY | 2024-04-11 14:55 | External Medical Summary | Summary of Care ---
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) Matthew Herrmann PA-C [address] [place] [address] Referral ID Status Reason Start Date Expiration Date Visits Requested Visits Authorized [id number] Authorized Specialty Services Required 06/11/2023 06/11/[phone] Encounter Details Date Type Department Care Team (Latest Contact Info) Description 10/24/2023 9:00 AM EST Hem/Onc Treatment Hematology Oncology [facility], [place] [address] [place] [address] [place], [facility] 4 Hem/Onc [facility] [address] [place], [place] [phone] 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 8 mL 2 10/11/2023 Active Amoxicillin-Pot Clavulanate 875-125 MG Oral Tablet (Augmentin) 1 Tablet in the morning and 1 Tablet before bedtime. 0 10/08/2023 4 Discontinue d(Medicatio n List Clean Up) documented as of this encounter (statuses as of 11/16/2023) Active Problems Problem Noted Date Diagnosed Date [...] as of this encounter (statuses as of 11/16/2023) Resolved Problems Problem Noted Date Diagnosed Date Resolved Date MSSA bacteremia 08/01/2021 08/07/2021 Sepsis 08/01/2021 08/07/2021 COPD, group B, by GOLD 2017 classification 05/08/2021 06/21/2021 Overview: Per COPD GOLD Classification Obstructive lung disease 04/10/2021 Overview: Per COPD GOLD Classification documented as of this encounter (statuses as of 11/16/2023) Immunizations Name Administration Dates Next Due COVID-19 mRNA, LNP-s, No Pre serve, 2-Dose Series ([employer]) 09/23/2021 documented as of this encounter Social [...] as of this encounter Nursing Notes * Nalini Sinclair RN - 10/24/2023 9:10 AM EST Safety and Risk for Injury Patient will remain free from injury. Ensure appropriate safety devices are available. Provide and maintain safe environment. Goals: see above Possible barriers to meeting goals: iv pole Stability of the patient: Moderately stable - low risk of patient condition declining or worsening Summary regarding today's goals: Met: patient remained injury free and was ambulatory from the clinic. Functional status at today's visit: Fully active, [...] symptoms or adverse side effects during treatment. PATIENT SAT IN CHAIR 16 IN THE OLD TREATMENT ROM. * Nova Smith RN - 10/24/2023 8:39 AM EST Per Yanni WALKER it is OK to treat today with keytruda/taxol and zometa documented in this encounter Plan of Treatment Upcoming Encounters Date Type Department Care Team (Late st Contact Info) Description 11/21/2023 6:15 AM EST Anticoagulation Pharmacy Call Center WB 58-60 [facility] [place] [address] [facility] 58 60 [facility] [place] [address] 11/21/2023 7:20 AM EST Laboratory Laboratory Hem/Onc [address] [place] [address] [place], [facility] [address] [place] [address] 11/21/2023 8:00 AM EST Office Visit Hematology Oncology [facility], [place] [address] [place] [phone] Nicole Carrillo PA-C [address] [place] [address] 11/21/2023 9:00 AM EST Hem/Onc Treatment Hematology Oncology [facility], [place] [address] [place] [address] [place], Chair 4 Hem/Onc [address] [place] [address] 12/04/2023 11:00 AM EST Office Visit Cardiology, [facility] [address] [place] [address] Santa Quintero CRNP [address] [place] [address] 12/12/2023 8:45 AM EST Nurse Only Hematology Oncology [facility], [place] [address] [place] [address] [place], Nurse Lab Hem/Onc [facility] [place] [address] 12/12/2023 9:30 AM EST Office Visit Hematology Oncology [facility], [place] [address] [place] [phone] Kerri Foote MD [facility] [place] [address] 12/12/2023 10:30 AM EST Hem/Onc Treatment Hematology Oncology [facility], [place] [address] [address] [place], [place] [phone] [place], Chair 4 Hem/Onc [address] [facility] [place] [address] 05/06/2024 9:20 AM EDT Office Visit Neurology [facility] [address] [place] [address] Kathy Pryor PA-C [address] [place] [address] Health Maintenance Due Date Last Done Comments [...] this encounter Medical Devices Implanted Type Area Field Sales Agent Device Identifier Shelf Expiration Date Model / Serial / Lot Power Port 8fr Sngl Lumen Plas - [id number] Implanted:Qty: 1 on 04/24/2021 at [facility] BARD : PERIPHERAL VASCULAR [id number] 02/24/2022 [id number] / / [id number] Port Implant W/8f Poly Cath - [id number] Implanted:Qty: 1 on 10/15/2023 at [facility] BARD : PERIPHERAL VASCULAR [id number] 03/27/2025 [id number] / / [id number] documented as of this encounter Results * (ABNORMAL) COMPREHENSIVE METABOLIC PANEL (11/06/2023 12:26 PM EST) BUN 15 6 - 20 mg/dL 11/07/2023 12:20 AM EST [facility] Creatinine 0.9 0.6 - 1.2 mg/dL 11/07/2023 12:20 AM EST [facility] Estimated Glomerular Filtration Rate >90 >=60 mL/min 11/07/2023 12:20 AM EST [facility] Comment:eGFR is calculated b ased on the CKD-EPI 2020 equation Sodium 142 135 - 146 mmol/L 11/07/2023 12:20 AM EST [facility] Potassium 4.0 3.5 - 5.1 mmol/L 11/07/2023 12:20 AM EST [facility] Chloride 104 98 - 107 mmol/L 11/07/2023 12:20 AM EST [facility] CO2 25 22 - 32 mmol/L 11/07/2023 12:20 AM EST [facility] Anion Gap 13 7 - 15 mmol/L 11/07/2023 12:20 AM EST [facility] Glucose 144(H) 70 - 120 mg/dL 11/07/2023 12:20 AM EST [facility] Albumin 4.2 3.8 - 5.0 g/dL 11/07/2023 12:20 AM EST [facility] AST 26 10 - 50 U/L 11/07/2023 12:20 AM EST [facility] Alkaline Phosphatase 69 35 - 130 U/L 11/07/2023 12:20 AM EST [facility] Bilirubin, Total 0.4 <=1.2 mg/dL 11/07/2023 12:20 AM EST [facility] Calcium 9.0 8.4 - 10.2 mg/dL 11/07/2023 12:20 AM EST [facility] Protein 6.4 6.0 - 8.3 g/dL 11/07/2023 12:20 AM EST [facility] ALT 79(H) 10 - 50 U/L 11/07/2023 12:20 AM EST LABORATORY [facility] Blood Venous blood specimen / Unknown Venipuncture / Unknown 11/06/2023 12:26 PM EST 11/06/2023 12:26 PM EST Kerri Foote MD LAB BLOOD ORDERAB LES Performing Organization Address City/[facility]/ZIP Co de Phone Number LABORATORY [facility] [address] [place] [address] * TSH WITH FREE T4 IF INDICATED (11/06/2023 12:26 PM EST) TSH 1.51 0.27 - 4.20 uIU/mL 11/07/2023 12:47 AM EST LABORATORY [facility] Blood Venous blood specimen / Unknown Venipuncture / Unknown 11/06/2023 12:26 PM EST 11/06/2023 12:26 PM EST Kerri Foote MD LAB BLOOD ORDERAB LES Performing Organization Address [facility] Co de Phone Number LABORATORY [facility] [address] [place] [address] * (ABNORMAL) HEPARIN, LOW MOLECULAR WEIGHT (10/24/2023 9:50 AM EST) Heparin, Low Molecular Weight 1.10(H) <0.10 IU/mL 10/24/2023 10:25 AM EST LABORATORY [facility] Comment:Low molecular weight heparin's therapeutic range is 0.6 - 1.00 I.U./mL. 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 Given 10/24/2023 1:02 PM EST 500 Units ondansetron (Zofran) tab 8 mg 8 mg, Oral, ONCE, On Ofe 10/24/23 at 0915, For 1 dose Given 10/24/2023 8:53 AM EST 8 mg PACLitaxel (Taxol) 387 mg in NSS 500 mL infusion 387 mg (rounded from 386.75 mg = 175 mg/m2 2.21 m2 Treatment Plan BSA from Recorded weight), IV Piggyback, at 166.67 mL/hr Administer over 180 Minutes, Administer through 0.22 micron low protein binding filter!, ONCE, 1 dose, On Ofe 10/24/23 at 1045 Start Infusion 10/24/2023 10:02 AM EST 387 mg 166.67 mL/hr Pembrolizumab (Keytruda) 200 mg in NSS 100 mL infusion 200 mg, IV Piggyback, ONCE, 1 dose, On Ofe 10/24/23 at 1015, Administer over 30 Minutes, Infuse through 0.2 micron filter. Start Infusion 10/24/2023 9:28 AM EST 200 mg 200 mL/hr sodium chloride 0.9 % flush central line 10 mL 10 mL, IV Push, PRN Other, IV Flush, Starting on Ofe 10/24/23 at 0839, Until Ofe 10/24/23 at 1339, For 24 hours, Do not flush if lock, PICC, or central line not in place; IV infusing or unable to flush. Given 10/24/2023 1:02 PM EST 10 mL Zoledronic Acid (Zometa) 4 mg in 100 mL PREMIX ivpb 4 mg, IV Piggyback, ONCE, 1 dose, On Oef 10/24/23 at 0915, Administer over 15 Minutes Start Infusion 10/24/2023 8:52 AM EST 4 mg 400 mL/hr documented in this encounter Additional Health [...] the patient have Health Care Power of Shot Peen Operator? No Code Status History Code Status Date Activated Date Inactivated Comments Full Code 05/23/2021 12:21 PM 05/24/2021 9:38 PM This order reflects the patients wishes and were consensually agreed upon. Question Answer Comments Discussion of Advance Directives occurred with: Patient Healthcare Agents on File Name Relationship Healthcare Agent [facility] Communication Rose Mary Brothers Spouse Health Care Agent Care Teams Promotion Specialist Relationship Specialty Start Date End Date Matthew Herrmann PA-C [address] [place] [phone] PCP - General Physician Pump Installer 03/22/21 documented as of this encounter
--- OUTSIDE RECORDS SUMMARY | 2024-04-11 14:55 | External Medical Summary ---
Author Name Unknown Address Unknown Organization [id number]:[facility] [address] [facility] [address] Laboratory Report Ordering Provider Test Date Status JOSE STEELE 11/21/2023 08:14:44 Final Observation Date Value Abnormality Reference (Units ) Status WBC, Total 11/21/2023 08:14:44 14.12 Above high normal 4.00-10.80 (K/uL) Final RBC 11/21/2023 08:14:44 4.25 4.50-5.25 (M/uL) Final Hemoglobin 11/21/2023 08:14:44 13.7 Below low normal 14.0-16.8 (g/dL) Final HCT 11/21/2023 08:14:44 41.1 40.0-48.4 (%) Final MCV 11/21/2023 08:14:44 96.7 82.0-99.5 (fL) Final MCH 11/21/2023 08:14:44 32.2 27.0-34.0 (pg) Final MCHC 11/21/2023 08:14:44 33.3 32.0-36.0 (g/dL) Final RDW 11/21/2023 08:14:44 17.2 11.5-15.5 (%) Final Platelets 11/21/2023 08:14:44 229 140-400 (K/uL) Final MPV 11/21/2023 08:14:44 9.5 6.6-11.1 (fL) Final Nucleated erythrocytes/100 leukocytes [Ratio] in Blood by Automated count 11/21/2023 08:14:44 0 <=0 (/100 WBCs) Final Performing Location [facility] - [address] [facility] [address]
--- OUTSIDE RECORDS SUMMARY | 2024-04-11 14:55 | External Medical Summary | Summary of Care ---
Author Name Unknown Organization [facility] Address [address] [place] [address] Phone [phone] Care Team Providers Care Meat Lugger Name Role Phone Matthew Herrmann PA-C Primary Care Provider [phone] Reason for Visit * Evaluate & Treat - Unlimited Visits (Within 30 days (routine)) - Authorized Specialty Diagnoses / Procedures Referred By Yuli seay Referred To Contact Hematology/Oncology / Hematology Oncology Diagnoses 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) Matthew Herrmann PA-C [address] [place] [address] Referral ID Status Reason Start Date Expiration Date Visits Requested Visits Authorized [id number] Authorized Specialty Services Required 06/11/2023 06/11/[phone] Encounter Details Date Type Department Care Team (Latest Contact Info) Description 10/24/2023 9:00 AM EST Hem/Onc Treatment Hematology Oncology [facility], [place] [address] [place] [address] [place], [facility] 4 Hem/Onc [facility] [address] [place], [place] [phone] Non-small cell lung cancer metastatic to bone [...] mRNA, LNP-s, No Pre serve, 2-Dose Series ([employer]) 09/23/2021 documented as of this encounter Social [...] EST Anticoagulation Pharmacy Call Center WB 58[address] [facility] [place] [address] [facility] 58 60 [facility] [place] [address] 11/21/2023 7:20 AM EST Laboratory Laboratory Hem/Onc [address] [place] [address] [place], Lab Med[facility] [address] [place] [address] 11/21/2023 8:00 AM EST Office Visit Hematology Oncology [facility] [place] [address] [place] [phone] Nicole Carrillo PA-C [address] [place] [address] 11/21/2023 9:00 AM EST Hem/Onc Treatment Hematology Oncology [facility] [place] [address] [place] [address] [place], Chair 4 Hem/Onc [address] [place] [address] 12/04/2023 11:00 AM EST Office Visit Cardiology, [facility] [address] [place] [address] Santa Quintero CRNP [address] [place] [address] 12/12/2023 8:45 AM EST Nurse Only Hematology Oncology [facility] [place] [address] [place] [address] [place], Nurse Lab Hem/Onc [facility] [place] [address] 12/12/2023 9:30 AM EST Office Visit Hematology Oncology [facility] [place] [address] [place] [phone] Kerri Foote MD [facility] [place] [address] 12/12/2023 10:30 AM EST Hem/Onc Treatment Hematology Oncology [facility] [place] [address] [address] [place], [place] [phone] [place], Chair 4 Hem/Onc [address] [facility] [place] [address] 05/06/2024 9:20 AM EDT Office Visit Neurology [facility] [address] [place] [address] Kathy Pryor PA-C [address] [place] [address] Health Maintenance Due Date Last Done Comments [...] this encounter Medical Devices Implanted Type Area Dry Mill Operator Device Identifier Shelf Expiration Date Model / Serial / Lot Power Port 8fr Sngl Lumen Plas - [id number] Implanted:Qty: 1 on 04/24/2021 at [facility] BARD : PERIPHERAL VASCULAR [id number] 02/24/2022 [id number] / / [id number] Port Implant W/8f Poly Cath - [id number] Implanted:Qty: 1 on 10/15/2023 at [facility] CR BARD : PERIPHERAL VASCULAR [id number] 03/27/2025 [id number] / / [id number] documented as of this encounter Results * [...] 50 U/L 11/07/2023 12:20 AM EST LABORATORY [facility] Blood Venous blood specimen / Unknown Venipuncture / Unknown 11/06/2023 12:26 PM EST 11/06/2023 12:26 PM EST Kerri Foote MD LAB BLOOD ORDERAB LES Performing Organization Address City/[facility]/ZIP Co de Phone Number LABORATORY [facility] [address] [place] [address] * TSH WITH FREE T4 IF INDICATED (11/06/2023 12:26 PM EST) TSH 1.51 0.27 - 4.20 uIU/mL 11/07/2023 12:47 AM EST LABORATORY [facility] Blood Venous blood specimen / Unknown Venipuncture / Unknown 11/06/2023 12:26 PM EST 11/06/2023 12:26 PM EST Kerri Foote MD LAB BLOOD ORDERAB LES Performing Organization Address [facility] Co de Phone Number LABORATORY [facility] [address] [place] [address] * (ABNORMAL) HEPARIN, LOW MOLECULAR WEIGHT (10/24/2023 9:50 AM EST) Heparin, Low Molecular Weight 1.10(H) <0.10 IU/mL 10/24/2023 10:25 AM EST LABORATORY [facility] Comment:Low molecular weight heparin's therapeutic range is 0.6 - 1.00 I.U./mL. Blood Venous blood specimen / Unknown Venipuncture / Unknown 10/24/2023 9:50 AM EST 10/24/2023 9:58 AM EST Kerri Foote MD LAB BLOOD ORDERAB LES Performing Organization Address City/[facility]/ZIP Co de Phone Number LABORATORY [facility] [address] [place] [address] documented in this encounter Visit Diagnoses Diagnosis [...] Lock, PRN Other, IV Flush, Starting on Oef 10/24/23 at 0839, Until Ofe 10/24/23 at [...] ONCE, 1 dose, On Ofe 10/24/23 at 0915, Administer over 15 Minutes [...] the patient have Health Care Power of Precipitator Operator? No Code Status History Code Status Date Activated Date Inactivated Comments Full Code 05/23/2021 12:21 PM 05/24/2021 9:38 PM This order reflects the patients wishes and were consensually agreed upon. Question Answer Comments Discussion of Advance Directives occurred with: Patient Healthcare Agents on File Name Relationship Healthcare Agent [facility] Communication Rose Mary Brothers Spouse Health Care Agent Care Teams Meat Lugger Relationship Specialty Start Date End Date Matthew Herrmann PA-C [address] [place] [id number] PCP - General Physician Oil Rigger 03/22/21 documented as of this encounter
--- OUTSIDE RECORDS SUMMARY | 2024-04-11 14:55 | External Medical Summary ---
Author Name Unknown Address Unknown Organization K01:[facility] [address] [facility] [place] [address] Laboratory Report Ordering Provider Test Date Status JOSE STEELE 11/21/2023 08:14:44 Final Observation Date Value Abnormality Reference (Units ) Status TSH 11/21/2023 08:14:44 2.42 0.27-4.20 (uIU/mL) Final Performing Location [facility] - [address] [place] [address]
--- OUTSIDE RECORDS SUMMARY | 2024-04-11 14:55 | External Medical Summary | Summary of Care ---
Author Name Unknown Organization [facility] Address [address] [facility] [address] Phone [phone] Care Team Providers Care Deicer Tester Name Role Phone Matthew Herrmann PA-C Primary Care Provider [phone] Reason for Visit * Reason Comments Dosage Adjustment Via Phone (anticoag Cl inic) Encounter Details Date Type Department Care Team (Latest Contact Info) Description 11/21/2023 6:15 PM EST Anticoagulation Pharmacy Call Center [address] [place] [address] [facility] [address] [facility] [place] [phone] Acute deep vein thrombosis (DVT) of proximal [...] mRNA, LNP-s, No Pre serve, 2-Dose Series ([employer]) 09/23/2021 documented as of this encounter [...] of this encounter Progress Notes * Betzy Parra, [facility] - 11/21/2023 3:10 PM EST Date/Time Type Contact Phone/Fax 11/21/2023 03:08 PM EST by Betzy Parra RPh Outgoing John Brothers (Self) Remove Spoke to Patient Confirmed lab was drawn 2 hours after injection. Advised lab needs to be drawn 4 hours after the injection for an accurate level. Advised pt to hold dose tonight then continue 80mg every 12 hours. Pt will still repeat AntiXa level on 11/25 and reminded him to have it drawn 4 hours after the injection. Betzy Parra Rph, Pharm.D. Clinical Pharmacist [facility] ([facility]) [phone] 11/21/2023,3:12 PM * Betzy Saavedra CPhT - 11/21/2023 11:20 AM EST Patient Phone Numbers Spoke to pt via phone. Unusual Bruising or Bleeding : no Upcoming procedure: no Lovenox dose verified: compliant Labs were drawn ~ 4 hours after dose yes and no he took is dose at 6 am AntiXa results, Lovenox dose instructions, and next antiXa date communicated as noted by Pharmacist: Yes Thank you, Betzy Haskins CPhT [facility] ([facility]) 11/21/2023,11:20 AM * Betzy Parra RPh - 11/21/2023 11:10 AM EST Anticoagulation Clinic Current Lovenox Dose: 80mg every 12 hours -confirm time of last injection, lab drawn at 8:14AM. AntiXa level 1.44 (goal 0.6-1.0) Dose instructions: Lovenox HOLD x 1 dose then DECREASE to 70mg every 12 hours Repeat antiXa level in 5 weeks on 11/25 at [place] . Remind patient that labs must be drawn 4 hours after dose. SHIRA to contact patient with dose instructions as noted. Betzy Parra RPh 11/21/23, 11:11 AM documented in this encounter Plan of Treatment Upcoming Encounters Date Type Department Care Team (Late st Contact Info) Description 11/25/2023 12:30 PM EST Laboratory [facility], [address] [phone] [address] [address] 11/25/2023 6:00 PM EST Anticoagulation Pharmacy Call Center [address] [place] [address] [facility] 58 [address] [place] [address] 12/04/2023 11:00 AM EST Office Visit Cardiology, [facility] [address] [place] [address] Santa Quintero CRNP [address] [place] [address] 12/05/2023 4:00 PM EST Appointment Radiology, [address] [phone] 12/12/2023 8:45 AM EST Nurse Only Hematology Oncology [facility] [address] [phone] [place], Nurse Lab Hem/Onc [address] [place] [phone] 12/12/2023 9:30 AM EST Office Visit Hematology Oncology [facility] [address] [phone] Kerri Foote MD [address] [place], [place] [phone] 12/12/2023 10:30 AM EST Hem/Onc Treatment Hematology Oncology [facility] [place] [address] [place] [address] [place], Chair 4 Hem/Onc [address] [place], [place] [phone] 05/06/2024 9:20 AM EDT Office Visit Neurology [facility] [address] [place] [address] Kathy Pryor PA-C [address] [place] [address] Health Maintenance Due Date Last Done Comments [...] this encounter Medical Devices Implanted Type Area Executive Admin Device Identifier Shelf Expiration Date Model / Serial / Lot Power Port 8fr Sngl Lumen Plas - [id number] Implanted:Qty: 1 on 04/24/2021 at [facility] CR [facility]ARD : PERIPHERAL VASCULAR [id number] 02/24/2022 [id number] / / [id number] Port Implant W/8f Poly Cath - [id number] Implanted:Qty: 1 on 10/15/2023 at [facility] CR BARD : PERIPHERAL VASCULAR [id number] 03/27/2025 [id number] / / [id number] documented as of this encounter Visit Diagnoses [...] the patient have Health Care Power of Party Director? No Code Status History Code Status Date Activated Date Inactivated Comments Full Code 05/23/2021 12:21 PM 05/24/2021 9:38 PM This order reflects the patients wishes and were consensually agreed upon. Question Answer Comments Discussion of Advance Directives occurred with: Patient Healthcare Agents on File Name Relationship Healthcare Agent Asuncion jacobsen Communication Rose Mary Brothers Spouse Health Care Agent Care Teams Deicer Tester Relationship Specialty Start Date End Date Matthew Herrmann PA-C [address] [place] [address] [place] [address] PCP - General Physician Pet Walker 03/22/21 documented as of this encounter
--- OUTSIDE RECORDS SUMMARY | 2024-04-11 14:55 | External Medical Summary | Summary of Care ---
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) Malignant neoplasm of lower lobe, left bronchus or lung (HCC) Procedures CT CHEST/ABDOMEN/PELVIS WITH IV CONTRAST WITH ORAL CONTRAST Nicole Carrillo PA-C [address] [place] [address] Referral ID Status Reason Start Date Expiration Date V isits Requested Visits Authorized [id number] Pending Review 12/05/2023 999 999 Reason for Visit * Reason Comments Follow Up * Evaluate & Treat - Unlimited Visits (Within 30 days (routine)) - Authorized Specialty Diagnoses / Procedures Referred By Yuli seay Referred To Contact Hematology/Oncology / Hematology Oncology Diagnoses 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) Matthew Herrmann PA-C [address] [place] [phone] Referral ID Status Reason Start Date Expiration Date Visits Requested Visits Authorized [id number] Authorized Specialty Services Required 06/11/2023 06/11/2024 999 999 Encounter Details Date Type Department Care Team (Latest Contact Info) Description 11/21/2023 8:00 AM EST Office Visit Hematology Oncology [facility] [place] [address] [place] [facility] [place] [address] Nicole Carrillo PA-C [address] [facility] [place] [phone] 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)*; Malignant neoplasm of lower lobe, left bronchus or lung (HCC); Encounter for antineoplastic chemotherapy and immunotherapy; Generalized edema due to fluid overload; History of pulmonary embolism; History of stroke Allergies Active Allergy Reactions Criticality Noted Date [...] mRNA, LNP-s, No Pre serve, 2-Dose Series ([employer]) 09/23/2021 documented as of this encounter Social [...] Sign Reading Time Taken Comments Blood Pressure 126/80 11/21/2023 7:59 AM EST man ual Pulse 67 11/21/2023 7:59 AM EST Temperature 36.3 C (97.4 F) 11/21/2023 7:59 AM ES T Respiratory Rate 16 11/21/2023 7:59 AM EST Oxygen Saturation 99% 11/21/2023 7:59 AM EST RA Inhaled Oxygen Concentration - - Weight 105.6 kg (232 lb 12.8 oz) 11/21/2023 7:59 AM EST Height 180.3 cm (5' 10.98") 11/21/2023 7:[address] Body Mass Index 32.49 11/21/2023 7:59 AM EST documented in this [...] as of this encounter Progress Notes * Nicole Carrillo PA-C - 11/21/2023 8:00 AM EST Hematology/Oncology Outpatient Clinic note [place] [address] Name: John Brothers Date: 11/21/2023 CHIEF COMPLAINT: John Brothers is a 53 year old male patient of Dr. Foote here today for f/u visit. HISTORY OF PRESENT ILLNESS: Oncology history from patient chart, copied from previous note and updated as appropriate: HEMATOLOGY/ONCOLOGY DIAGNOSIS: Metastatic non-small cell lung cancer to bones. Adenocarcinoma. Biopsy done at [facility]. Molecular markers were not performed. SITE OF MALIGNANCY: B/L Lungs/hilum, mediastinum, L SCV HISTOPATHOLOGY: NSCLC, Adenocarcinoma, no further molecular analysis currently STAGE: At least IIIC, [id number], high suspicion and concern for Stage IV due to M1a bilateral disease and lymphangitic carcinomatosis DATE OF DIAGNOSIS: Primary malignant neoplasm of left lower lobe of lung (HCC) Staging form: Lung, AJCC 8th Edition - Clinical stage from 04/20/2021: cT4, cN3 - Unsigned TREATMENT RENDERED: No regular chest imaging. 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 Interval [...] cough, at times in morning. 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) 04/21/2021 Initial Diagnosis 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) 04/27/2021 - 05/19/2021 Chemotherapy CARBOPLATIN AUC 5 PEMETREXED 500 mg/m2 bevacizumab-xxxx 15 mg/kg D1 (Every 21 Days) [id number] 05/18/2021 - Supportive Therapy SCP - ZOLEDRONIC ACID (ZOMETA) [id number] Plan Provider: Kerri Foote MD Treatment goal: Supportive Line of treatment: [No plan line of treatment] 06/08/2021 - 09/12/2023 Chemotherapy PEMBROLIZUMAB 200 mg CARBOPLATIN AUC 5 PEMETREXED 500 mg/m2 (C1-4 D1 Every 21 Days) followed by PEMBROLIZUMAB/PEMETREXED (Every 21 Days) [id number] 10/03/2023 - Chemotherapy OP Pembrolizumab and Paclitaxel and Carboplatin every 21 days (Lung) [id number] Malignant neoplasm of lower lobe, left bronchus or lung (HCC) 06/08/2021 - 09/12/2023 Chemotherapy PEMBROLIZUMAB 200 mg CARBOPLATIN AUC 5 PEMETREXED 500 mg/m2 (C1-4 D1 Every 21 Days) followed by PEMBROLIZUMAB/PEMETREXED (Every 21 Days) [id number] 06/13/2023 Initial Diagnosis Malignant neoplasm of lower lobe, left bronchus or lung (HCC) 10/03/2023 - Chemotherapy OP Pembrolizumab and Paclitaxel and Carboplatin every 21 days (Lung) [id number] CURRENT TREATMENT: OP pembrolizumab and paclitaxel every 21 days started on 10/03/23. INTERVAL HISTORY: John Brothers is a 53 year old male with a history as outlined above. Currently here for f/u visittoday. Today, patient states they are feeling well. Their appetite is intact, and weight is increased. He notes abdominal bloating and generalized edema as he has been taking Dexamethasone daily since August. His respiratory status is at baseline. He has no further concerns at this time. Review of patient's allergies indicates: Allergen Reactions [...] chest pain (Patient not taking: Reported on 10/29/2023) Culturelle Probiotics Oral Tablet Chewable Take 1 [...] or Shortness of Breath. 18 g 0 No current facility-administered medications for this visit. 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, [employer] Tobacco Use Smoking status: Never Smokeless tobacco: Never Vaping Use Vaping Use: Never used Substance and Sexual Activity Alcohol use: Not Currently Comment: occasionally Drug use: No Sexual activity: Not on file Other Topics Concern Not on file Social History Narrative Not on file Social Determinants of Health Financial Resource Strain: Not on file Food Insecurity: No Food Insecurity (03/15/2020) Hunger Vital Sign Worried About Running Out of Food in the Last Year: Never true Ran Out of Food in the Last Year: Never true Transportation Needs: Not on file Physical Activity: Not on file Stress: Not on file Social Connections: Not on file Intimate Partner Violence: Not on file Housing Stability: Not on file Family History Problem Relation Age of Onset Diabetes Father Hypertension Father Heart attack Father Fatal DC age 74 No Known Problems Mother No Known Problems Sister No Known Problems Brother Lymphoma Niece REVIEW OF SYSTEMS: See interval history, otherwise within normal limits Performance Status: Abnormal - ECOG 1 OBJECTIVE: Filed Vitals: 11/21/23 0759 BP: 126/80 Pulse: 67 Resp: 16 Temp: 36.3 C (97.4 F) TempSrc: Tympanic SpO2: 99% Weight: 105.6 kg (232 lb 12.8 oz) Height: 1.803 m (5' 10.98") Wt Readings from Last 5 Encounters: 11/21/23 105.6 kg (232 lb 12.8 oz) 10/30/23 102.4 kg (225 lb 12.8 oz) 10/29/23 103.4 kg (228 lb) 10/24/23 101.3 kg (223 lb 4.8 oz) 10/03/23 98.3 kg (216 lb 11.2 oz) PHYSICAL EXAM: General Appearance: Normal - Healthy appearing patient in no acute distress Skin: Normal- No rashes, lesions or petechiae. Port without signs of infection. HEENT: Normal - No oral or pharyngeal masses, ulceration or thrush noted, no sinus tenderness Lymph Nodes: Normal - No palpable lymph nodes in the neck or supraclavicular areas Lungs/Thorax: Normal - Clear to auscultation Heart: Normal - Regular rate and rhythm, normal S1, S2, no appreciable murmurs, rubs, gallops Pulses/Extremities: Abnormal - 2+ throughout and symmetrical, +2 edema in b/l LE Abdomen: Normal - Soft, nontender, bowel sounds present, no appreciable hepatosplenomegaly, no palpable masses Musculoskeletal: Normal - No pain on palpation over bony prominence, no joint or bony deformity Neurologic: Normal - Grossly intact Psyche: No vegetative signs of depression. LABS: Results for orders placed or performed in visit on 11/21/23 COMPREHENSIVE METABOLIC PANEL Result Value Ref Range BUN 20 6 - 20 mg/dL Creatinine 0.9 0.6 - 1.2 mg/dL Estimated Glomerular Filtration Rate >90 >=60 mL/min Sodium 140 135 - 146 mmol/L Potassium 4.0 3.5 - 5.1 mmol/L Chloride 102 98 - 107 mmol/L CO2 29 22 - 32 mmol/L Anion Gap 9 7 - 15 mmol/L Glucose 96 70 - 120 mg/dL Albumin 4.2 3.8 - 5.0 g/dL AST 32 10 - 50 U/L Alkaline Phosphatase 69 35 - 130 U/L Bilirubin, Total 0.3 <=1.2 mg/dL Calcium 9.6 8.4 - 10.2 mg/dL Protein 6.7 6.0 - 8.3 g/dL ALT 61 (H) 10 - 50 U/L MAGNESIUM Result Value Ref Range Magnesium 2.1 1.5 - 2.6 mg/dL PHOSPHORUS Result Value Ref Range Phosphorus 3.5 2.5 - 4.8 mg/dL CBC Result Value Ref Range WBC 14.12 (H) 4.00 - 10.80 K/uL RBC 4.25 4.50 - 5.25 M/uL HGB 13.7 (L) 14.0 - 16.8 g/dL HCT 41.1 40.0 - 48.4 % MCV 96.7 82.0 - 99.5 fL MCH 32.2 27.0 - 34.0 pg MCHC 33.3 32.0 - 36.0 g/dL RDW 17.2 11.5 - 15.5 % PLT 229 140 - 400 K/uL MPV 9.5 6.6 - 11.1 fL nRBCs 0 <=0 /100 WBCs DIFFERENTIAL, AUTOMATED Result Value Ref Range WBC 14.12 (H) 4.00 - 10.80 K/uL Neutrophils % 75.0 40.0 - 75.0 % Lymphocytes % 16.1 (L) 18.0 - 42.0 % Monocytes % 6.0 1.0 - 11.0 % Eosinophils % 0.2 0.0 - 6.0 % Basophils % 0.5 0.0 - 2.0 % Immature Granulocytes % 2.2 (H) 0.0 - 2.0 % Absolute Neutrophils 10.58 (H) 1.80 - 7.70 K/uL Absolute Lymphocytes 2.28 1.00 - 4.80 K/ul Absolute Monocytes 0.85 0.00 - 1.10 K/uL Absolute Eosinophils 0.03 0.00 - 0.70 K/uL Absolute Basophils 0.07 0.00 - 0.20 K/uL Absolute Immature Granulocytes 0.31 (H) 0.00 - 0.20 K/uL HEPARIN, LOW MOLECULAR WEIGHT Result Value Ref Range Heparin, Low Molecular Weight 1.44 (H) <0.10 IU/mL IMPRESSION/PLAN: Metastatic NSCLC Encounter for Antineoplastic Chemotherapy and Immunotherapy Fluid Overload History of Pulmonary Embolism History of Recent CVA Patient feeling overall well. +Fluid overload due to daily Dexamethasone use since August. -Discontinue daily Dexamethasone. -To receive IV lasix in clinic. -Oral lasix sent to pharmacy to take PRN. -Respiratory status at baseline. -Continue Lovenox for VTE history. -Continue following with Neurology. C3D1 Taxol+Keytruda. Labs reviewed and overall stable. TSH is pending, monitor. Zometa to be given every 6 weeks- due 12/05/23. Restaging imaging ordered- please schedule in 1-2 weeks. RTC as scheduled. Patient was educated on signs and symptoms of concern and were instructed to call our office shouldthey experience any. Patient expressed an understanding, all questions were addressed. I spent a total of 30-39 minutes (exact time 30 mins) on the date of service in preparation, delivery, and documentation of the care provided to John Brothers excluding any time spent in the performance of separately billed services. Nicole Carrillo PA-C documented in this encounter Nursing Notes * Fabi Montejo MED ASSIST - 11/21/2023 8:12 AM EST Room 2 Patient was instructed to not get up [...] (Late st Contact Info) Description 11/21/2023 6:15 PM EST Anticoagulation Pharmacy Call Center [address] [place] [address] [facility] 58 60 [facility] [place] [address] 12/04/2023 11:00 AM EST [facility] [place] [address] Santa Quintero CRNP [address] [place] [address] 12/05/2023 4:00 PM EST Appointment Radiology, [address] [address] 12/12/2023 8:45 AM EST Nurse Only Hematology Oncology [facility], [address] [address] [place], Nurse Lab Hem/Onc [address] [place] [address] 12/12/2023 9:30 AM EST Office Visit Hematology Oncology [facility] [place] [address] [place] [address] Kerri Foote MD [address] [place] [address] 12/12/2023 10:30 AM EST Hem/Onc Treatment Hematology Oncology [facility] [place] [address] [place] [address] [place], Chair 4 Hem/Onc [address] [place] [address] 05/06/2024 9:20 AM EDT Office Visit Neurology [address] [place] [address] [facility] [place], [place] [phone] Kathy Pryor PA-C [address] [facility] [place] [address] Scheduled Orders Name Type Priority Associated Diagnoses Orde r Schedule CT CHEST/ABDOMEN/PELVIS WITH IV CONTRAST WITH ORAL CONTRAST Medical Imaging STAT 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) Malignant neoplasm of lower lobe, left bronchus or lung (HCC) Expected: 12/05/2023 (Approximate), Expires: 12/22/2024 Health Maintenance Due Date Last Done Comments [...] this encounter Medical Devices Implanted Type Area Personal Banking Officer Device Identifier Shelf Expiration Date Model / Serial / Lot Power Port 8fr Sngl Lumen Plas - [id number] Implanted:Qty: 1 on 04/24/2021 at [facility] CR [facility]ARD : PERIPHERAL VASCULAR [id number] 02/24/2022 [id number] / / [id number] Port Implant W/8f Poly Cath - [id number] Implanted:Qty: 1 on 10/15/2023 at [facility] CR BARD : PERIPHERAL VASCULAR [id number] 03/27/2025 [id number] / / [id number] documented as of this encounter Visit Diagnoses Diagnosis 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 No Code Status History Code Status Date Activated Date Inactivated Comments Full Code 05/23/2021 12:21 PM 05/24/2021 9:38 PM This order reflects the patients wishes and were consensually agreed upon. Question Answer Comments Discussion of Advance Directives occurred with: Patient Healthcare Agents on File Name Relationship Healthcare Agent [facility] Communication Rose Mary Brothers Spouse Health Care Agent Care Teams Mediation Commissioner Relationship Specialty Start Date End Date Matthew Herrmann PA-C [address] [place] [id number] PCP - General Physician Dye Mixer 03/22/21 documented as of this encounter
--- OUTSIDE RECORDS SUMMARY | 2024-04-11 14:55 | External Medical Summary ---
Author Name Unknown Address Unknown Organization [id number]:[address] [address] Laboratory Report Ordering Provider Test Date Status JOSE STEELE 11/21/2023 08:14:44 Final Observation Date Value Abnormality Reference (Units ) Status SYNC LEUKOCYTES IN BLOOD BY AUTOMATED COUNT 11/21/2023 08:14:44 14.12 Above high normal 4.00-10.80 (K/uL) Final Segs 11/21/2023 08:14:44 75.0 40.0-75.0 (%) Final Lymphs % 11/21/2023 08:14:44 16.1 Below low normal 18.0-42.0 (%) Final Monos 11/21/2023 08:14:44 6.0 1.0-11.0 (%) Final Eosinophils 11/21/2023 08:14:44 0.2 0.0-6.0 (%) Final Basos 11/21/2023 08:14:44 0.5 0.0-2.0 (%) Final Immature Granulocyte, Percent 11/21/2023 08:14:44 2.2 Above high normal 0.0-2.0 (%) Final Absolute Segs 11/21/2023 08:14:44 10.58 Above high normal 1.80-7.70 (K/uL) Final Lymphs, absolute 11/21/2023 08:14:44 2.28 1.00-4.80 (K/ul) Final Monos, Abs 11/21/2023 08:14:44 0.85 0.00-1.10 (K/uL) Final Eos, Abs 11/21/2023 08:14:44 0.03 0.00-0.70 (K/uL) Final Basos, Abs 11/21/2023 08:14:44 0.07 0.00-0.20 (K/uL) Final Immature Granulocytes, Number 11/21/2023 08:14:44 0.31 Above high normal 0.00-0.20 (K/uL) Final Performing Location [facility] - [address] [place] [address]
--- OUTSIDE RECORDS SUMMARY | 2024-04-11 14:55 | External Medical Summary ---
Author Name Unknown Address Unknown Organization [id number]:[facility] [address] [facility] [place] [address] Laboratory Report Ordering Provider Test Date Status JOSE STEELE 11/21/2023 08:14:44 Final Observation Date Value Abnormality Reference (Units ) Status BUN 11/21/2023 08:14:44 20 6-20 (mg/dL) Final Creatinine 11/21/2023 08:14:44 0.9 0.6-1.2 (mg/dL) Final Glomerular filtration rate/1.73 sq M.predicted [Volume Rate/Area] in Serum, Plasma or Blood by Creatinine-based formula (CKD-EPI) 11/21/2023 08:14:44 >90 >=60 (mL/min) Final eGFR is calculated based on the CKD-EPI 2020 equation SODIUM 11/21/2023 08:14:44 140 135-146 (m mol/L) Final Potassium 11/21/2023 08:14:44 4.0 3.5-5.1 (m mol/L) Final Cl 11/21/2023 08:14:44 102 98-107 (mm ol/L) Final CO2 11/21/2023 08:14:44 29 22-32 (mmo l/L) Final Anion gap 11/21/2023 08:14:44 9 7-15 (mmol /L) Final Glucose 11/21/2023 08:14:44 96 70-120 (mg /dL) Final Albumin 11/21/2023 08:14:44 4.2 3.8-5.0 (g /dL) Final AST (Aspartate aminotransferase) 11/21/2023 08:14:44 32 10-50 (U/L) Final Result may be falsely elevat ed due to hemolysis. Alk Phos 11/21/2023 08:14:44 69 35-130 (U/ L) Final Bilirubin, Total 11/21/2023 08:14:44 0.3 <=1 .2 (mg/dL) Final Calcium 11/21/2023 08:14:44 9.6 8.4-10.2 ( mg/dL) Final Protein 11/21/2023 08:14:44 6.7 6.0-8.3 (g /dL) Final ALT (Alanine aminotransferase) 11/21/2023 08:14:44 61 Above high normal 10-50 (U/L) Final Performing Location [facility] [address] [facility] [address]
--- OUTSIDE RECORDS SUMMARY | 2024-04-11 14:55 | External Medical Summary ---
Author Name Unknown Address Unknown Organization [id number]:[facility] [facility] [address] [place] [address] Laboratory Report Ordering Provider Test Date Status JOSE STEELE 11/21/2023 08:14:44 Final Observation Date Value Abnormality Reference (Units ) Status LMW Heparin [Units/volume] in Platelet poor plasma by Chromogenic method 11/21/2023 08:14:44 1.44 Above high normal <0.10 (IU/mL) Final Low molecular weight heparin 's therapeutic range is 0.6 - 1.00 I.U./mL. Performing Location [facility] [place] [address] [place] [address]
--- OUTSIDE RECORDS SUMMARY | 2024-04-11 14:55 | External Medical Summary | Summary of Care ---
Author Name Unknown Organization [facility] Address [address] [place] [address] Phone [phone] Care Team Providers Care Ski Patrol Name Role Phone Matthew Herrmann PA-C Primary Care Provider +1 [phone] Reason for Visit * Evaluate & Treat - Unlimited Visits (Within 30 days (routine)) - Authorized Specialty Diagnoses / Procedures Referred By Yuli seay Referred To Contact Hematology/Oncology / Hematology Oncology Diagnoses 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) Matthew Herrmann PA-C [address] [place] [address] Referral ID Status Reason Start Date Expiration Date Visits Requested Visits Authorized [id number] Authorized Specialty Services Required 06/11/2023 06/11/[phone] Encounter Details Date Type Department Care Team (Latest Contact Info) Description 10/24/2023 9:00 AM EST Hem/Onc Treatment Hematology Oncology [facility], [place] [address] [place] [address] [place], [facility] 4 Hem/Onc [facility] [address] [place], [place] [phone] Non-small cell lung cancer metastatic to bone [...] mRNA, LNP-s, No Pre serve, 2-Dose Series ([employer]) 09/23/2021 documented as of this encounter Social [...] EST Anticoagulation Pharmacy Call Center WB 58-60 [facility] [place] [address] [facility] 58 60 [facility] [place] [address] 11/21/2023 7:20 AM EST Laboratory Laboratory Hem/Onc [address] [place] [address] [place], Lab [facility] [address] [place] [address] 11/21/2023 8:00 AM EST Office Visit Hematology [facility]cology [facility], [place] [address] [place] [phone] Nicole Carrillo PA-C [address] [place] [address] 11/21/2023 9:00 AM EST Hem/Onc Treatment Hematology Oncology [facility], [place] [address] [place] [address] [place], Chair 4 Hem/Onc [address] [place] [address] 12/04/2023 11:00 AM EST Office Visit Cardiology, [facility] [address] [place] [address] Santa Quintero CRNP [address] [place] [address] 12/12/2023 8:45 AM EST Nurse Only Hematology Oncology [facility], [place] [address] [place] [address] [place], Nurse Lab Hem/Onc [facility] [place] [address] 12/12/2023 9:30 AM EST Office Visit Hematology Oncology [facility], [place] [address] [place] [phone] Kerri Foote MD [facility] [place] [address] 12/12/2023 10:30 AM EST Hem/Onc Treatment Hematology Oncology [facility], [place] [address] [address] [place], [place] [phone] [place], Chair 4 Hem/Onc 100 [address] [facility] [place] [address] 05/06/2024 9:20 AM EDT Office Visit Neurology [facility] [address] [place] [address] Kathy Pryor PA-C [address] [place] [address] Health Maintenance Due Date Last Done Comments [...] this encounter Medical Devices Implanted Type Area Custom Stock Maker Device Identifier Shelf Expiration Date Model / Serial / Lot Power Port 8fr Sngl Lumen Plas - [id number] Implanted:Qty: 1 on 04/24/2021 at [facility] BARD : PERIPHERAL VASCULAR [id number] 02/24/2022 [id number] / / [id number] Port Implant W/8f Poly Cath - [id number] Implanted:Qty: 1 on 10/15/2023 at [facility] BARD : PERIPHERAL VASCULAR [id number] 03/27/2025 [id number] / / [id number] documented as of this encounter Results * [...] 50 U/L 11/07/2023 12:20 AM EST [facility] Blood Venous blood specimen / Unknown Venipuncture / Unknown 11/06/2023 12:26 PM EST 11/06/2023 12:26 PM EST Kerri Foote MD LAB BLOOD ORDERAB LES Performing Organization Address City/[facility]/ZIP Co de Phone Number [facility] [address] [place] [address] * TSH WITH FREE T4 IF INDICATED (11/06/2023 12:26 PM EST) TSH 1.51 0.27 - 4.20 uIU/mL 11/07/2023 12:47 AM EST [facility] Blood Venous blood specimen / Unknown Venipuncture / Unknown 11/06/2023 12:26 PM EST 11/06/2023 12:26 PM EST Kerri Foote MD LAB BLOOD ORDERAB LES Performing Organization Address [facility] Co de Phone Number [facility] [address] [place] [address] * (ABNORMAL) HEPARIN, LOW MOLECULAR WEIGHT (10/24/2023 9:50 AM EST) Heparin, Low Molecular Weight 1.10(H) <0.10 IU/mL 10/24/2023 10:25 AM EST [facility] Comment:Low molecular weight heparin's therapeutic range is 0.6 - 1.00 I.U./mL. Blood Venous blood specimen / Unknown Venipuncture / Unknown 10/24/2023 9:50 AM EST 10/24/2023 9:58 AM EST Kerri Foote MD LAB BLOOD ORDERAB LES Performing Organization Address City/[facility]/ZIP Co de Phone Number [facility] [address] [place] [address] documented in this encounter Visit Diagnoses Diagnosis [...] the patient have Health Care Power of Outsole Cementer Machine? No Code Status History Code Status Date Activated Date Inactivated Comments Full Code 05/23/2021 12:21 PM 05/24/2021 9:38 PM This order reflects the patients wishes and were consensually agreed upon. Question Answer Comments Discussion of Advance Directives occurred with: Patient Healthcare Agents on File Name Relationship Healthcare Agent [facility] p Communication Rose Mary Brothers Spouse Health Care Agent Care Teams Ski Patrol Relationship Specialty Start Date End Date Matthew Herrmann PA-C [address] [place] [phone] PCP - General Physician Director Regulatory Agency 03/22/21 documented as of this encounter
--- OUTSIDE RECORDS SUMMARY | 2024-04-11 14:55 | External Medical Summary | Summary of Care ---
Author Name Unknown Organization [facility] Address [address] [place] [address] Phone [phone] Care Team Providers Care Management Manager Name Role Phone Matthew Herrmann PA-C Primary Care Provider [phone] [phone] Reason for Visit * Evaluate & Treat - Unlimited Visits (Within 30 days (routine)) - Authorized Specialty Diagnoses / Procedures Referred By Yuli seay Referred To Contact Hematology/Oncology / Hematology Oncology Diagnoses 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) Matthew Herrmann PA-C [address] [place] [address] Referral ID Status Reason Start Date Expiration Date Visits Requested Visits Authorized [id number] Authorized Specialty Services Required 06/11/2023 06/11/[phone] Encounter Details Date Type Department Care Team (Latest Contact Info) Description 11/21/2023 9:00 AM EST Hem/Onc Treatment Hematology Oncology [facility], [place] [address] [place] [address] [place], [facility] 4 Hem/Onc [address] [place] [id number] Chemotherapy adverse reaction, initial encounter*; Chemotherapy induced [...] as of this encounter (statuses as of 11/22/2023) Medications Medication Sig Dispensed Refills Start Date [...] as of this encounter (statuses as of 11/22/2023) Active Problems Problem Noted Date Diagnosed Date [...] as of this encounter (statuses as of 11/22/2023) Resolved Problems Problem Noted Date Diagnosed Date Resolved Date MSSA bacteremia 08/01/2021 08/07/2021 Sepsis 08/01/2021 08/07/2021 COPD, group B, by GOLD 2017 classification 05/08/2021 06/21/2021 Overview: Per COPD GOLD Classification Obstructive lung disease 04/10/2021 Overview: Per COPD GOLD Classification documented as of this encounter (statuses as of 11/22/2023) Immunizations Name Administration Dates Next Due COVID-19 mRNA, LNP-s, No Pre serve, 2-Dose Series ([employer] 09/23/2021 documented as of this encounter Social [...] PM EST Laboratory [facility] [phone] [place], [address] [address] 11/25/2023 6:00 PM EST Anticoagulation Pharmacy Call Center 58-60 [place] [address] [place], [facility] 58 60 [facility] [place] [address] 12/04/2023 11:00 AM EST Office Visit Cardiology, [facility] 132 [facility] [place] [address] Santa Quintero CRNP [address] [place] [address] 12/05/2023 4:00 PM EST Appointment Radiology, [place] 100 [facility] [place] [address] 12/12/2023 8:45 AM EST Nurse Only Hematology Oncology [facility] [place] [address] [place], [place] [phone] [place], Nurse Lab Hem/Onc [address] [place], [place] [address] 12/12/2023 9:30 AM EST Office Visit Hematology Oncology [facility] [place] [address] [place] [address] Kerri Foote MD [address] [place] [address] 12/12/2023 10:30 AM EST Hem/Onc Treatment Hematology Oncology [facility] [place] [address] [place] [address] [place], Chair 4 Hem/Onc [address] [place] [address] 05/06/2024 9:20 AM EDT Office Visit Neurology [facility] [address] [facility] [place] [address] Kathy Pryor PA-C [address] [facility] [place], [place] [phone] Scheduled Orders Name Type Priority Associated Diagnoses [...] this encounter Medical Devices Implanted Type Area Sales Engagement Manager Device Identifier Shelf Expiration Date Model / Serial / Lot Power Port 8fr Sngl Lumen Plas - [id number] Implanted:Qty: 1 on 04/24/2021 at [facility] BARD : PERIPHERAL VASCULAR [id number] 02/24/2022 [id number] / / [id number] Port Implant W/8f Poly Cath - [id number] Implanted:Qty: 1 on 10/15/2023 at [facility] BARD : PERIPHERAL VASCULAR [id number] 03/27/2025 [id number] / / [id number] documented as of this encounter Visit Diagnoses [...] the patient have Health Care Power of Film Crew Member? No Code Status History Code Status Date Activated Date Inactivated Comments Full Code 05/23/2021 12:21 PM 05/24/2021 9:38 PM This order reflects the patients wishes and were consensually agreed upon. Question Answer Comments Discussion of Advance Directives occurred with: Patient Healthcare Agents on File Name Relationship [facility] Communication Rose Mary Brothers Spouse Health Care Agent Care Teams Management Manager Relationship Specialty Start Date End Date Matthew Herrmann PA-C [address] [place] [address] PCP - General Physician Aviation Ordnance Officer 03/22/21 documented as of this encounter
--- OUTSIDE RECORDS SUMMARY | 2024-04-11 14:55 | External Medical Summary | Summary of Care ---
Author Name Unknown Organization [facility] Address [address] [place] [address] Phone [phone] Care Team Providers Care Shock Absorption Floor Layer Name Role Phone Matthew Herrmann PA-C Primary Care Provider [phone] -[phone] Reason for Visit * Evaluate & Treat - Unlimited Visits (Within 30 days (routine)) - Authorized Specialty Diagnoses / Procedures Referred By Yuli seay Referred To Contact Hematology/Oncology / Hematology Oncology Diagnoses 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) Matthew Herrmann PA-C [address] [place] [address] Referral ID Status Reason Start Date Expiration Date Visits Requested Visits Authorized [id number] Authorized Specialty Services Required 06/11/2023 06/11/[phone] Encounter Details Date Type Department Care Team (Latest Contact Info) Description 10/24/2023 9:00 AM EST Hem/Onc Treatment Hematology Oncology [facility], [place] [address] [place] [address] [place], [facility] 4 Hem/Onc [facility] [address] [place], [place] [phone] Non-small cell lung cancer metastatic to bone [...] mRNA, LNP-s, No Pre serve, 2-Dose Series ([employer]) 09/23/2021 documented as of this encounter Social [...] EST Anticoagulation Pharmacy Call Center WB 58-60 [facility] [place] [address] [facility] 58 60 [facility] [place] [address] 11/21/2023 7:20 AM EST Laboratory Laboratory Hem/Onc [address] [place] [address] [place], Lab Med4 [address] [place] [address] 11/21/2023 8:00 AM EST Office Visit Hematology Oncology [facility], [place] [address] [place] [phone] Nicole Carrillo PA-C [address] [place] [address] 11/21/2023 9:00 AM EST Hem/Onc Treatment Hematology Oncology [facility], [place] [address] [place] [address] [place], Chair 4 Hem/Onc [address] [place] [address] 12/04/2023 11:00 AM EST Office Visit Cardiology, [facility] [address] [place] [address] Santa Quintero CRNP [address] [place] [address] 12/12/2023 8:45 AM EST Nurse Only Hematology Oncology [facility], [place] [address] [place] [address] [place], Nurse Lab Hem/Onc [facility] [place] [address] 12/12/2023 9:30 AM EST Office Visit Hematology Oncology [facility], [place] [address] [place] [phone] Kerri Foote MD [facility] [place] [address] 12/12/2023 10:30 AM EST Hem/Onc Treatment Hematology Oncology [facility], [place] [address] [address] [place], [place] [phone] [place], Chair 4 Hem/Onc 100 N [facility] [place] [address] 05/06/2024 9:20 AM EDT Office Visit Neurology [facility] [address] [place] [address] Kathy Pryor PA-C [address] [place] [address] Health Maintenance Due Date Last Done Comments [...] this encounter Medical Devices Implanted Type Area Tape Cutting Machine Operator Device Identifier Shelf Expiration Date Model / Serial / Lot Power Port 8fr Sngl Lumen Plas - [id number] Implanted:Qty: 1 on 04/24/2021 at [facility] BARD : PERIPHERAL VASCULAR [id number] 02/24/2022 [id number] / / [id number] Port Implant W/8f Poly Cath - [id number] Implanted:Qty: 1 on 10/15/2023 at [facility] CR BARD : PERIPHERAL VASCULAR [id number] 03/27/2025 [id number] / / [id number] documented as of this encounter Results * [...] 50 U/L 11/07/2023 12:20 AM EST LAB[facility]ATORY [facility] Blood Venous blood specimen / Unknown Venipuncture / Unknown 11/06/2023 12:26 PM EST 11/06/2023 12:26 PM EST Kerri Foote MD LAB BLOOD ORDERAB LES Performing Organization Address City/[facility]/ZIP Co de Phone Number LAB[facility]ATORY [facility] [address] [place] [address] * TSH WITH FREE T4 IF INDICATED (11/06/2023 12:26 PM EST) TSH 1.51 0.27 - 4.20 uIU/mL 11/07/2023 12:47 AM EST LAB[facility]ATORY [facility] Blood Venous blood specimen / Unknown Venipuncture / Unknown 11/06/2023 12:26 PM EST 11/06/2023 12:26 PM EST Kerri Foote MD LAB BLOOD ORDERAB LES Performing Organization Address [facility] Co de Phone Number LABORATORY [facility] [address] [place] [address] * (ABNORMAL) HEPARIN, LOW MOLECULAR WEIGHT (10/24/2023 9:50 AM EST) Heparin, Low Molecular Weight 1.10(H) <0.10 IU/mL 10/24/2023 10:25 AM EST LAB[facility]ATORY [facility] Comment:Low molecular weight heparin's therapeutic range is 0.6 - 1.00 I.U./mL. Blood Venous blood specimen / Unknown Venipuncture / Unknown 10/24/2023 9:50 AM EST 10/24/2023 9:58 AM EST Kerri Foote MD LAB BLOOD ORDERAB LES Performing Organization Address City/[facility]/ZIP Co de Phone Number LAB[facility]ATORY [facility] [address] [place] [address] documented in this encounter Visit Diagnoses Diagnosis [...] the patient have Health Care Power of Chemical Plant Manager? No Code Status History Code Status Date Activated Date Inactivated Comments Full Code 05/23/2021 12:21 PM 05/24/2021 9:38 PM This order reflects the patients wishes and were consensually agreed upon. Question Answer Comments Discussion of Advance Directives occurred with: Patient Healthcare Agents on File Name Relationship Healthcare Agent [facility] Communication Rose Mary Brothers Spouse Health Care Agent Care Teams Shock Absorption Floor Layer Relationship Specialty Start Date End Date Matthew Herrmann PA-C [address] [place] [phone] PCP - General Physician Veterinary Bacteriologist 03/22/21 documented as of this encounter
--- OUTSIDE RECORDS SUMMARY | 2024-04-11 14:56 | External Medical Summary | Summary of Care ---
Author Name Unknown Organization [facility] Address [address] [place] [address] Phone [phone] Care Team Providers Care Refund Specialist Name Role Phone Matthew Herrmann PA-C Primary Care Provider +1 -[phone] Reason for Visit * Reason Onset Date Comments Order Request 11/07/2023 Encounter Details Date Type Department Care Team ([facility] Contact Info) Description 11/07/2023 Telephone Family [address] [phone] Matthew Herrmann PA-C [address] [place] [address] Order Request Allergies Active Allergy Reactions Criticality Noted Date Comments Carboplatin High 11/14/2021 Dyspnea, chest pain, hypoxia, sore throat, edema throat, flushing, mild hypotension Isosorbide Nitrate Other (Please comment) 07/22/2023 Headache documented as of this encounter (statuses as of 11/07/2023) Medications Medication Sig Dispensed Refills Start Date [...] Active Amoxicillin-Pot Clavulanate 875-125 MG Oral Tablet (Augmentin)Indication s:LRTI (lower respiratory tract infection) Take 1 Tablet by mouth in the morning and 1 Tablet before bedtime. Do all this for 10 days. 20 Tablet 0 10/29/2023 11/08/2023 Active ProAir HFA 108 (90 Base) MCG/ACT Inhalation Aerosol SolutionIndications:L RTI (lower respiratory tract infection) Inhale 2 Puffs by mouth every 4 hours as needed for Wheezing or Shortness of Breath. 18 g 0 10/29/2023 Active documented as of this encounter (statuses as of 11/07/2023) Active Problems Problem Noted Date Diagnosed Date [...] as of this encounter (statuses as of 11/07/2023) Resolved Problems Problem Noted Date Diagnosed Date Resolved Date MSSA bacteremia 08/01/2021 08/07/2021 Sepsis 08/01/2021 08/07/2021 COPD, group B, by GOLD 2017 classification 05/08/2021 06/21/2021 Overview: Per COPD GOLD Classification Obstructive lung disease 04/10/2021 Overview: Per COPD GOLD Classification documented as of this encounter (statuses as of 11/07/2023) Immunizations Name Administration Dates Next Due COVID-19 mRNA, LNP-s, No Pre serve, 2-Dose Series ([employer]) 09/23/2021 documented as of this encounter Social [...] Care Team (Late st Contact Info) Description 11/07/2023 6:00 PM EST Anticoagulation Pharmacy Call Center WB 58-[address] [place] [address] Ccps, [facility] 58 60 [place] [address] 11/21/2023 7:20 AM EST Laboratory Laboratory Hem/Onc [address] [address] [place], Lab Med4 [facility] [place], [place] [address] 11/21/2023 8:00 AM EST Office Visit Hematology Oncology [address] [address] Nicole Carrillo PA-C [facility] [place] [address] 11/21/2023 9:00 AM EST Hem/Onc Treatment Hematology Oncology [facility], [address] [phone] [place], Chair 4 Hem/Onc [address] [place] [address] 12/04/2023 11:00 AM EST Office Visit Cardiology, [facility] 132 [facility] [place] [address] Santa Quintero CRNP 132 [facility] [place] [address] 12/12/2023 8:45 AM EST Nurse Only Hematology Oncology [address] [phone] [place], Nurse Lab Hem/Onc [address] [place] [address] 12/12/2023 9:30 AM EST Office Visit Hematology Oncology [address] [address] Kerri Foote MD [address] [place] [address] 12/12/2023 10:30 AM EST Hem/Onc Treatment Hematology Oncology [facility], [place] [address] [place] [address] [place], Chair 4 Hem/Onc [address] [place] [address] 05/06/2024 9:20 AM EDT Office Visit [facility] 200 [place] [address] Kathy Pryor PA-C [address] [place] [address] Scheduled Orders Name Type Priority Associated Diagnoses Orde r Schedule HEMOGLOBIN A1C Lab Routine Prediabetes Expected: 02/06/2024 (Approximate), Expires: 11/06/2024 Health Maintenance Due Date Last Done Comments [...] 05/30/2021 Influenza Vaccine (FLU shot) (#1) 2023 Lipid Panel 09/19/2026 09/19/2021, 10/0 12/2012, 04/25/2010 Diabetes Screening 11/06/2026 11/06/2023, 0 11/06/2023, 10/24/2023, Additional history exists Colonoscopy 08/13/2029 08/13/2019, 08/13/2019 Colorectal Cancer Screening 08/13/2029 GARDASIL-HPV IMMUNIZATION SERIES Aged Out No longer eligible based on patient's age to complete this topic MENINGOCOCCAL (MENACTRA/MENVEO) Aged Out No longer eligible based on patient's age to complete this topic documented as of this encounter Medical Devices Implanted Type Area Flaker Operator Device Identifier Shelf Expiration Date Model / Serial / Lot Power Port 8fr Sngl Lumen Plas - [id number] Implanted:Qty: 1 on 04/24/2021 at [facility] CR BARD : PERIPHERAL VASCULAR [id number] 02/24/2022 [id number] / / [id number] Port Implant W/8f Poly Cath - [id number] Implanted:Qty: 1 on 10/15/2023 at [facility] CR BARD : PERIPHERAL VASCULAR [id number] 03/27/2025 [id number] / / [id number] documented as of this encounter Visit Diagnoses Diagnosis Prediabetes- Primary Other abnormal glucose documented in this encounter Additional Health Concerns [...] patient have Health Care Power of Lead Electrician? No Code Status History Code Status Date Activated Date Inactivated Comments Full Code 05/23/2021 12:21 PM 05/24/2021 9:38 PM This order reflects the patients wishes and were consensually agreed upon. Question Answer Comments Discussion of Advance Directives occurred with: Patient Healthcare Agents on File Name Relationship Healthcare Agent [facility] p Communication Rose Mary Brothers Spouse Health Care Agent Care Teams Refund Specialist Relationship Specialty Start Date End Date Matthew Herrmann PA-C [address] [place], [place] [address] [address] PCP - General Physician Tire Buster 03/22/21 documented as of this encounter
--- OUTSIDE RECORDS SUMMARY | 2024-04-11 14:56 | External Medical Summary | Summary of Care ---
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) Matthew Herrmann PA-C [address] [place] [address] Referral ID Status Reason Start Date Expiration Date Visits Requested Visits Authorized [id number] Authorized Specialty Services Required 06/11/2023 06/11/[phone] Encounter Details Date Type Department Care Team (Latest Contact Info) Description 10/24/2023 9:00 AM EST Hem/Onc Treatment Hematology Oncology [facility], [place] [address] [place] [address] [place], [facility] 4 Hem/Onc [facility] [address] [place], [place] [phone] Non-small cell lung cancer metastatic to bone [...] as of this encounter (statuses as of 11/15/2023) Medications Medication Sig Dispensed Refills Start Date [...] as of this encounter (statuses as of 11/15/2023) Active Problems Problem Noted Date Diagnosed Date [...] as of this encounter (statuses as of 11/15/2023) Resolved Problems Problem Noted Date Diagnosed Date Resolved Date MSSA bacteremia 08/01/2021 08/07/2021 Sepsis 08/01/2021 08/07/2021 COPD, group B, by GOLD 2017 classification 05/08/2021 06/21/2021 Overview: Per COPD GOLD Classification Obstructive lung disease 04/10/2021 Overview: Per COPD GOLD Classification documented as of this encounter (statuses as of 11/15/2023) Immunizations Name Administration Dates Next Due COVID-19 mRNA, LNP-s, No Pre serve, 2-Dose Series (Vimagino) 09/23/2021 documented as of this encounter Social [...] EST Anticoagulation Pharmacy Call Center WB 58[address]60 [facility] [place] [address] [facility] 58 60 [facility] [place] [address] 11/21/2023 7:20 AM EST Laboratory Laboratory Hem/Onc [address] [place] [address] [place], Lab Med4 [address] [place] [address] 11/21/2023 8:00 AM EST Office Visit Hematology Oncology [facility] [place] [address] [place] [address] Nicole Carrillo PA-C [address] [place] [address] 11/21/2023 9:00 AM EST Hem/Onc Treatment Hematology Oncology [facility] [place] [address] [place] [address] [place], Chair 4 Hem/Onc [address] [place] [address] 12/04/2023 11:00 AM EST Office Visit Cardiology, [facility] [address] [place] [address] Santa Quintero CRNP [address] [place] [address] 12/12/2023 8:45 AM EST Nurse Only Hematology Oncology [facility] [place] [address] [place] [address] [place], Nurse Lab Hem/Onc [facility] [place] [address] 12/12/2023 9:30 AM EST Office Visit Hematology Oncology [facility] [place] [address] [place] [phone] Kerri Foote MD [facility] [place] [address] 12/12/2023 10:30 AM EST Hem/Onc Treatment Hematology Oncology [facility] [place] [address] [place], [place] [phone] [place], Chair 4 Hem/Onc [address] [facility] [place] [address] 05/06/2024 9:20 AM EDT Office Visit Neurology [facility] [address] [place] [address] Kathy Pryor PA-C [address] [place] [address] Health Maintenance Due Date Last Done Comments [...] this encounter Medical Devices Implanted Type Area Medical Management Trainer Device Identifier Shelf Expiration Date Model / Serial / Lot Power Port 8fr Sngl Lumen Plas - [id number] Implanted:Qty: 1 on 04/24/2021 at [facility] BARD : PERIPHERAL VASCULAR [id number] 02/24/2022 [id number] / / [id number] Port Implant W/8f Poly Cath - [id number] Implanted:Qty: 1 on 10/15/2023 at [facility] BARD : PERIPHERAL VASCULAR [id number] 03/27/2025 [id number] / / [id number] documented as of this encounter Results * [...] 50 U/L 11/07/2023 12:20 AM EST LABORATORY [facility] Blood Venous blood specimen / Unknown Venipuncture / Unknown 11/06/2023 12:26 PM EST 11/06/2023 12:26 PM EST Kerri Foote MD LAB BLOOD ORDERAB LES Performing Organization Address City/[facility]/ZIP Co de Phone Number LABORATORY [facility] [address] [place] [address] * TSH WITH FREE T4 IF INDICATED (11/06/2023 12:26 PM EST) TSH 1.51 0.27 - 4.20 uIU/mL 11/07/2023 12:47 AM EST LABORATORY [facility] Blood Venous blood specimen / Unknown Venipuncture / Unknown 11/06/2023 12:26 PM EST 11/06/2023 12:26 PM EST Kerri Foote MD LAB BLOOD ORDERAB LES Performing Organization Address [facility] Co de Phone Number LABORATORY [facility] [address] [place] [address] * (ABNORMAL) HEPARIN, LOW MOLECULAR WEIGHT (10/24/2023 9:50 AM EST) Heparin, Low Molecular Weight 1.10(H) <0.10 IU/mL 10/24/2023 10:25 AM EST LABORATORY [facility] Comment:Low molecular weight heparin's therapeutic range is 0.6 - 1.00 I.U./mL. Blood Venous blood specimen / Unknown Venipuncture / Unknown 10/24/2023 9:50 AM EST 10/24/2023 9:58 AM EST Kerri Foote MD LAB BLOOD ORDERAB LES Performing Organization Address City/[facility]/ZIP Co de Phone Number LABORATORY [facility] [address] [place] [address] documented in this encounter Visit Diagnoses Diagnosis [...] the patient have Health Care Power of Horticultural Agent? No Code Status History Code Status Date Activated Date Inactivated Comments Full Code 05/23/2021 12:21 PM 05/24/2021 9:38 PM This order reflects the patients wishes and were consensually agreed upon. Question Answer Comments Discussion of Advance Directives occurred with: Patient Healthcare Agents on File Name Relationship [facility] Rose Mary Brothers Spouse Health Care Agent Care Teams System Technologist Relationship Specialty Start Date End Date Matthew Herrmann PA-C [address] [place] [address] PCP - General Physician Desizing Machine Offbearer 03/22/21 documented as of this encounter
--- OUTSIDE RECORDS SUMMARY | 2024-04-11 14:56 | External Medical Summary | Summary of Care ---
Author Name Unknown Organization [facility] Address [address] [place] [address] Phone [phone] Care Team Providers Care Senior Nuclear Medicine Technologist Name Role Phone Matthew Herrmann PA-C Primary Care Provider [phone] Reason for Visit * Reason Onset Date Comments Films 11/13/2023 Encounter Details Date Type Department Care Team (Late st Contact Info) Description 11/13/2023 Telephone Radiology Film File [address] [place] [address] Kerri Foote MD [address] [place] [address] Films Allergies Active Allergy Reactions Criticality Noted Date Comments Carboplatin High 11/14/2021 Dyspnea, chest pain, hypoxia, sore throat, edema throat, flushing, mild hypotension Isosorbide Nitrate Other (Please comment) 07/22/2023 Headache documented as of this encounter (statuses as of 11/13/2023) Medications Medication Sig Dispensed Refills Start Date [...] as of this encounter (statuses as of 11/13/2023) Active Problems Problem Noted Date Diagnosed Date [...] as of this encounter (statuses as of 11/13/2023) Resolved Problems Problem Noted Date Diagnosed Date Resolved Date MSSA bacteremia 08/01/2021 08/07/2021 Sepsis 08/01/2021 08/07/2021 COPD, group B, by GOLD 2017 classification 05/08/2021 06/21/2021 Overview: Per COPD GOLD Classification Obstructive lung disease 04/10/2021 Overview: Per COPD GOLD Classification documented as of this encounter (statuses as of 11/13/2023) Immunizations Name Administration Dates Next Due COVID-19 mRNA, LNP-s, No Pre serve, 2-Dose Series (GameMix) 09/23/2021 documented as of this encounter Social [...] encounter Miscellaneous Notes * Telephone Encounter - Rufina Mahan OSA - 11/13/2023 10:11 AM EST Patient signed patient right of access form to release 02-25-23 to present image(s) to self. Images pushed to patient Life Image account Job ID: [id number] documented in this encounter Plan of Treatment Upcoming Encounters Date Type Department Care Team (Late st Contact Info) Description 11/13/2023 12:30 PM EST Laboratory [facility], [address] [phone] [place], Lab [place] [address] [place], [place] [address] [address] 11/14/2023 6:15 AM EST Anticoagulation Pharmacy Call Center [address] [place] [address] [facility], [facility] 58 60 [place] [address] 11/21/2023 7:20 AM EST Laboratory Laboratory Hem/Onc [facility], [place] [address] [place] [address] [place], Lab Med4 [address] [place], [place] [address] 11/21/2023 8:00 AM EST Office Visit Hematology Oncology [facility], [place] [address] [place] [address] Nicole Carrillo PA-C [address] [place] [address] 11/21/2023 9:00 AM EST Hem/Onc Treatment Hematology Oncology [facility], [place] [address] [place], [place] [phone] [place], Chair 4 Hem/Onc [address] [place], [place] [phone] 12/04/2023 11:00 AM EST Office Visit Cardiology, [facility] [address] [place] [address] Santa Quintero CRNP [address] [place] [address] 12/12/2023 8:45 AM EST Nurse Only Hematology Oncology [facility], [place] [address] [place] [address] [place], Nurse Lab Hem/[place]c [facility] [place] [address] 12/12/2023 9:30 AM EST Office Visit Hematology Oncology [facility], [place] [address] [place] [phone] Kerri Foote MD [address] [place] [address] 12/12/2023 10:30 AM EST Hem/Onc Treatment Hematology Oncology [facility], [place] [address] [place] [address] [place], Chair 4 Hem/Onc [address] [place] [address] 05/06/2024 9:20 AM EDT Office Visit Neurology [facility] [place] 200 [facility] [place] [phone] Kathy Pryor PA-C 200 [facility] [place] [address] Health Maintenance Due Date Last Done [...] this encounter Medical Devices Implanted Type Area Cathode Ray Tube Salvage Processor Device Identifier Shelf Expiration Date Model / Serial / Lot Power Port 8fr Sngl Lumen Plas - [id number] Implanted:Qty: 1 on 04/24/2021 at [facility] BARD : PERIPHERAL VASCULAR [id number] 02/24/2022 [id number] / / [id number] Port Implant W/8f Poly Cath - [id number] Implanted:Qty: 1 on 10/15/2023 at [facility] CR BARD : PERIPHERAL VASCULAR [id number] 03/27/2025 [id number] / / [id number] documented as of this encounter Additional Health [...] the patient have Health Care Power of Media Law Faculty Member? No Code Status History Code Status Date Activated Date Inactivated Comments Full Code 05/23/2021 12:21 PM 05/24/2021 9:38 PM This order reflects the patients wishes and were consensually agreed upon. Question Answer Comments Discussion of Advance Directives occurred with: Patient Healthcare Agents on File Name Relationship Healthcare Agent [facility] Communication Rose Mary Brothers Spouse Health Care Agent [phone] (Mobile) Care Teams Senior Nuclear Medicine Technologist Relationship Specialty Start Date End Date Matthew Herrmann PA-C [address] [place] [address] PCP - General Physician Senior Office Assistant 03/22/21 documented as of this encounter
--- OUTSIDE RECORDS SUMMARY | 2024-04-11 14:56 | External Medical Summary | Summary of Care ---
Author Name Unknown Organization [facility] Address [address] [place] [address] Phone [phone] Care Team Providers Care Chemical Plant Worker Name Role Phone Matthew Herrmann PA-C Primary Care Provider [phone] Encounter Details Date Type Department Care Team (Late st Contact Info) Description 11/06/2023 Orders Only Hematology Oncology [facility] [address] [place] [address] Kerri Foote MD [address] [place] [address] Acute deep vein thrombosis (DVT) of proximal vein of right lower extremity (HCC)* Allergies Active Allergy Reactions Criticality Noted Date Comments Carboplatin High 11/14/2021 Dyspnea, chest pain, hypoxia, sore throat, edema throat, flushing, mild hypotension Isosorbide Nitrate Other (Please comment) 07/22/2023 Headache documented as of this encounter (statuses as of 11/06/2023) Medications Medication Sig Dispensed Refills Start Date [...] as of this encounter (statuses as of 11/06/2023) Active Problems Problem Noted Date Diagnosed Date [...] as of this encounter (statuses as of 11/06/2023) Resolved Problems Problem Noted Date Diagnosed Date Resolved Date Prediabetes 09/22/2021 08/09/2022 MSSA bacteremia 08/01/2021 08/07/2021 Sepsis 08/01/2021 08/07/2021 COPD, group B, by GOLD 2017 classification 05/08/2021 06/21/2021 Overview: Per COPD GOLD Classification Obstructive lung disease 04/10/2021 Overview: Per COPD GOLD Classification documented as of this encounter (statuses as of 11/06/2023) Immunizations Name Administration Dates Next Due COVID-19 mRNA, LNP-s, No Pre serve, 2-Dose Series (iconDial) 09/23/2021 documented as of this encounter Social [...] Team (Late st Contact Info) Description 11/13/2023 6:45 PM EST Anticoagulation Pharmacy Call Center WB [address] [place] [address] [facility], [facility] 58 60 [facility] [address] 11/21/2023 7:20 AM EST Laboratory Laboratory Hem/Onc [address] [address] [place], Lab Med4 [facility] [address] [place], [place] [address] 11/21/2023 8:00 AM EST Office Visit Hematology Oncology [address] [phone] Nicole Carrillo PA-C [address] [place] [address] 11/21/2023 9:00 AM EST Hem/Onc Treatment Hematology Oncology [address] [phone] [place], Chair 4 Hem/Onc [address] [place] [address] 12/04/2023 11:00 AM EST Office Visit Cardiology, [facility] [address] [facility] [address] [facility] [address] 12/12/2023 8:45 AM EST Nurse Only Hematology Oncology [address] [phone] [place], Nurse Lab Hem/Onc [address] [address] 12/12/2023 9:30 AM EST Office Visit Hematology Oncology [address] [place] [address] Kerri Foote MD [address] [place] [address] 12/12/2023 10:30 AM EST Hem/Onc Treatment Hematology Oncology [facility], [place] [address] [place] [address] [place], Chair 4 Hem/Onc [facility] [address] [place], [place] [phone] 05/06/2024 9:20 AM EDT Office Visit Neurology [address] [place] 200 [facility] [place] [phone] Kathy Pryor PA-C [address] [place] [address] Scheduled Orders Name Type Priority Associated Diagnoses Orde r Schedule HEPARIN, LOW MOLECULAR WEIGHT Lab STAT Acute deep vein thrombosis (DVT) of proximal vein of right lower extremity (HCC) 1 Occurrences starting 11/06/2023 until 11/06/2024 Health Maintenance Due Date Last Done [...] 09/19/2026 09/19/2021, 10/0 12/2012, 04/25/2010 Diabetes Screening 10/24/2026 10/24/2023, 1 12/11/2022, 10/08/2023, Additional history exists Colonoscopy 08/13/2029 08/13/2019, 08/13/2019 Colorectal Cancer Screening 08/13/2029 GARDASIL-HPV IMMUNIZATION SERIES Aged Out No longer eligible based on patient's age to complete this topic MENINGOCOCCAL (MENACTRA/MENVEO) Aged Out No longer eligible based on patient's age to complete this topic documented as of this encounter Medical Devices Implanted Type Area Photocopying Equipment Repairer Device Identifier Shelf Expiration Date Model / Serial / Lot Power Port 8fr Sngl Lumen Plas - [id number] Implanted:Qty: 1 on 04/24/2021 at [facility] BARD : PERIPHERAL VASCULAR [id number] 02/24/2022 [id number] / / [id number] Port Implant W/8f Poly Cath - [id number] Implanted:Qty: 1 on 10/15/2023 at [facility] BARD : PERIPHERAL VASCULAR [id number] 03/27/2025 [id number] / / [id number] documented as of this encounter Visit Diagnoses Diagnosis Acute deep vein thrombosis (DVT) of proximal vein of right lower extremity (HCC)- Primary documented in this encounter Additional Health Concerns [...] the patient have Health Care Power of Treasurer? No Code Status History Code Status Date Activated Date Inactivated Comments Full Code 05/23/2021 12:21 PM 05/24/2021 9:38 PM This order reflects the patients wishes and were consensually agreed upon. Question Answer Comments Discussion of Advance Directives occurred with: Patient Healthcare Agents on File Name Relationship Healthcare Agent [facility] Communication Rose Mary Brothers Spouse Health Care Agent [phone] (Mobile) Care Teams Chemical Plant Worker Relationship Specialty Start Date End Date Matthew Herrmann PA-C [address] [place] [address] PCP - General Physician Set Decorator 03/22/21 documented as of this encounter
--- OUTSIDE RECORDS SUMMARY | 2024-04-11 14:56 | External Medical Summary | Summary of Care ---
Author Name Unknown Organization [facility] Address [address] [place] [address] Phone [phone] Care Team Providers Care Hand Buffer Name Role Phone MichaelAdam Matthew Narayanan PA-C Primary Care Provider [phone] Reason for Visit * Reason Onset Date Comments Advice 11/06/2023 Encounter Details Date Type Department Care Team (Late st Contact Info) Description 11/06/2023 Telephone Hematology Oncology [facility] [address] [place] [address] Kerri Foote MD [address] [place] [address] Advice () Allergies Active Allergy Reactions Criticality Noted Date [...] mRNA, LNP-s, No Pre serve, 2-Dose Series ([employer]Parade [employer]) 09/23/2021 documented as of this encounter Social [...] Telephone Encounter - Lubna Kemp RN - 11/06/2023 12:45 PM EST Order placed * Telephone Encounter - Shereen Diaz OSA - 11/06/2023 12:34 PM EST [facility] that they do not have an order for the patient's Heparin,Low Molecular Weight lab. Ovi states that the order would need to be placed for the patient. documented in this encounter Plan of Treatment Upcoming Encounters Date Type Department Care Team (Late st Contact Info) Description 11/13/2023 6:45 PM EST Anticoagulation Pharmacy Call Center [address] [place] [address] [facility] 58 [address] [place] [address] 11/21/2023 7:20 AM EST Laboratory Laboratory Hem/Onc [address] [phone] [place], Lab Med4 [facility] [place] [address] 11/21/2023 8:00 AM EST Office Visit Hematology Oncology [facility], [place] [address] [place] [address] Nicole Carrillo PA-C [address] [place] [address] 11/21/2023 9:00 AM EST Hem/Onc Treatment Hematology Oncology [facility], [place] [address] [place] [address] [place], Chair 4 Hem/Onc [address] [place] [address] 12/04/2023 11:00 AM EST Office Visit Cardiology, [facility] [address] [facility] [place] [address] Santa Quintero CRNP [address] [place] [address] 12/12/2023 8:45 AM EST Nurse Only Hematology Oncology [facility], [address] [phone] [place], Nurse Lab Hem/Onc [address] [place] [address] 12/12/2023 9:30 AM EST Office Visit Hematology Oncology [facility], [place] [address] [place] [address] Kerri Foote MD [address] [place], [place] [phone] 12/12/2023 10:30 AM EST Hem/Onc Treatment Hematology Oncology [place] [address] [place], [place] [phone] [place], Chair 4 Hem/Onc [address] [place] [address] [id number] 05/06/2024 9:20 AM EDT Office Visit [facility] 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) 11/06/2023 12:52 PM EST Scheduled Orders Name Type Priority Associated Diagnoses Orde r Schedule HEPARIN, LOW MOLECULAR WEIGHT Lab STAT Primary malignant neoplasm of left lower lobe of lung (HCC) Expected: 11/06/2023, Expires: 11/06/2024 Health Maintenance Due Date Last [...] shot) (#1) 2023 Lipid Panel 09/19/2026 09/19/2021, 1012/2012, 04/25/2010 Diabetes Screening 10/24/2026 10/24/2023, 1 12/11/2022, 10/08/2023, Additional history exists Colonoscopy 08/13/2029 08/13/2019, 08/13/2019 Colorectal Cancer Screening 08/13/2029 GARDASIL-HPV IMMUNIZATION SERIES Aged Out No longer eligible based on patient's age to complete this topic MENINGOCOCCAL (MENACTRA/MENVEO) Aged Out No longer eligible based on patient's age to complete this topic documented as of this encounter Medical Devices Implanted Type Area Warehouse Clerk Device Identifier Shelf Expiration Date Model / Serial / Lot Power Port 8fr Sngl Lumen Plas - [id number] Implanted:Qty: 1 on 04/24/2021 at [facility] CR BARD : PERIPHERAL VASCULAR [id number] 02/24/2022 [id number] / / [id number] Port Implant W/8f Poly Cath - [id number] Implanted:Qty: 1 on 10/15/2023 at [facility] CR BARD : PERIPHERAL VASCULAR [id number] 03/27/2025 [id number] / / [id number] documented as of this encounter Visit Diagnoses Diagnosis 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 No Code Status History Code Status Date Activated Date Inactivated Comments Full Code 05/23/2021 12:21 PM 05/24/2021 9:38 PM This order reflects the patients wishes and were consensually agreed upon. Question Answer Comments Discussion of Advance Directives occurred with: Patient Healthcare Agents on File Name Relationship Healthcare Agent Relationshi p Communication Rose Mary Brothers Spouse Health Care Agent Care Teams Hand Buffer Relationship Specialty Start Date End Date Matthew Herrmann PA-C [address] [place] [address] [place] [address] PCP - General Physician Cavalry Officer 03/22/21 documented as of this encounter
--- OUTSIDE RECORDS SUMMARY | 2024-04-11 14:56 | External Medical Summary | Summary of Care ---
Author Name Unknown Organization [facility] Address [address] [place] [address] Phone [phone] Care Team Providers Care Printing Pressman Name Role Phone Matthew Herrmann PA-C Primary Care Provider +1 -[phone] Reason for Visit * Reason Comments Outpatient Testing Encounter Details Date Type Department Care Team (Late st Contact Info) Description 11/06/2023 12:30 PM [facility] Laboratory Laboratory [facility] [phone] [facility] Lock [address] [place] [address] Primary malignant neoplasm of left lower lobe of lung (HCC); 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); Chemotherapy adverse reaction, initial encounter; Chemotherapy induced nausea and vomiting; Encounter for antineoplastic chemotherapy; Malignant neoplasm of lower lobe, left bronchus or lung (HCC); Excessive thirst Allergies Active Allergy Reactions Criticality Noted Date [...] mRNA, LNP-s, No Pre serve, 2-Dose Series ([employer]) 09/23/2021 documented as of this encounter Social [...] EST Anticoagulation Pharmacy Call Center WB 58-60 [facility] [place] [address] Ccps, [facility] 58 60 [facility] [place] [address] 11/21/2023 7:20 AM EST Laboratory Laboratory Hem/Onc [place] [address] [place] [address] [place], Lab Med4 [facility] [address] [place], [place] [phone] 11/21/2023 8:00 AM EST Office Visit Hematology Oncology [facility], [place] [address] [place] [address] Nicole Carrillo PA-C [address] [place], [place] [phone] 11/21/2023 9:00 AM EST Hem/Onc Treatment Hematology Oncology [facility], [place] [address] [place], [place] [phone] [place], Chair 4 Hem/Onc [facility] [address] [place], [place] [phone] 12/04/2023 11:00 AM EST Office Visit Cardiology, [facility] [address] [place] [address] Santa Quintero CRNP [address] [place] [address] 12/12/2023 8:45 AM EST Nurse Only Hematology Oncology [place] [address] [place], [place] [phone] [place], Nurse Lab Hem/Onc [facility] [place] [address] 12/12/2023 9:30 AM EST Office Visit Hematology Oncology [facility], [place] [address] [place] [address] 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) 11/06/2023 12:26 PM EST PHOSPHORUS Lab STAT Primary malignant neoplasm of left lower lobe of lung (HCC) 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) 11/06/2023 12:26 PM EST TSH WITH FREE T4 IF INDICATED Lab STAT Chemotherapy adverse reaction, initial encounter Chemotherapy induced nausea and vomiting Encounter for antineoplastic chemotherapy Malignant neoplasm of lower lobe, left bronchus or lung (HCC) 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) 11/06/2023 12:26 PM EST CBC WITH WBC DIFFERENTIAL Lab STAT Chemotherapy adverse reaction, initial encounter Chemotherapy induced nausea and vomiting Encounter for antineoplastic chemotherapy Malignant neoplasm of lower lobe, left bronchus or lung (HCC) 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) 11/06/2023 12:26 PM EST COMPREHENSIVE METABOLIC PANEL Lab STAT Chemotherapy adverse reaction, initial encounter Chemotherapy induced nausea and vomiting Encounter for antineoplastic chemotherapy Malignant neoplasm of lower lobe, left bronchus or lung (HCC) 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) 11/06/2023 12:26 PM EST HEMOGLOBIN A1C Lab Routine Excessive thirst 11/06/2023 12:26 PM EST CBC Lab STAT Chemotherapy adverse reaction, initial encounter Chemotherapy induced nausea and vomiting Encounter for antineoplastic chemotherapy Malignant neoplasm of lower lobe, left bronchus or lung (HCC) 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) 11/06/2023 12:26 PM EST DIFFERENTIAL, AUTOMATED Lab STAT Chemotherapy adverse reaction, initial encounter Chemotherapy induced nausea and vomiting Encounter for antineoplastic chemotherapy Malignant neoplasm of lower lobe, left bronchus or lung (HCC) 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) 11/06/2023 12:26 PM EST Health Maintenance Due Date Last [...] shot) (#1) 2023 Lipid Panel 09/19/2026 09/19/2021, 12/2012, 04/25/2010 Diabetes Screening 10/24/2026 10/24/2023, 1 12/11/2022, 10/08/2023, Additional history exists Colonoscopy 08/13/2029 08/13/2019, 08/13/2019 Colorectal Cancer Screening 08/13/2029 GARDASIL-HPV IMMUNIZATION SERIES Aged Out No longer eligible based on patient's age to complete this topic MENINGOCOCCAL (MENACTRA/MENVEO) Aged Out No longer eligible based on patient's age to complete this topic documented as of this encounter Medical Devices Implanted Type Area Adult Parole Officer Device Identifier Shelf Expiration Date Model / Serial / Lot Power Port 8fr Sngl Lumen Plas - [id number] Implanted:Qty: 1 on 04/24/[address] [facility] CR BARD : PERIPHERAL VASCULAR [id number] 02/24/2022 [id number] / / [id number] Port Implant W/8f Poly Cath - [id number] Implanted:Qty: 1 on 10/15/[address] 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 No Code Status History Code Status Date Activated Date Inactivated Comments Full Code 05/23/2021 12:21 PM 05/24/2021 9:38 PM This order reflects the patients wishes and were consensually agreed upon. Question Answer Comments Discussion of Advance Directives occurred with: Patient Healthcare Agents on File Name Relationship Healthcare Agent Relationshi p Communication Rose Mary Brothers Spouse Health Care Agent Care Teams Printing Pressman Relationship Specialty Start Date End Date Matthew Herrmann PA-C [address] [place] [address] PCP - General Physician Testing And Regulating Technician 03/22/21 documented as of this encounter
--- OUTSIDE RECORDS SUMMARY | 2024-04-11 14:56 | External Medical Summary | Summary of Care ---
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) Matthew Herrmann PA-C [address] [place] [address] Referral ID Status Reason Start Date Expiration Date Visits Requested Visits Authorized [id number] Authorized Specialty Services Required 06/11/2023 06/11/2024 [id number] Encounter Details Date Type Department Care Team (Latest Contact Info) Description 10/24/2023 9:00 AM EST Hem/Onc Treatment Hematology Oncology [facility], [place] [address] [place] [address] [place], [facility] 4 Hem/Onc [facility] [address] [place], [place] [phone] Non-small cell lung cancer metastatic to bone [...] mRNA, LNP-s, No Pre serve, 2-Dose Series ([employer]) 09/23/2021 documented as of this encounter Social [...] EST Anticoagulation Pharmacy Call Center WB 58-60 [facility] [place] [address] [facility] 58 60 [facility] [place] [address] 11/21/2023 7:20 AM EST Laboratory Laboratory Hem/Onc [address] [place] [address] [place], Lab Med4 [address] [place] [address] 11/21/2023 8:00 AM EST Office Visit Hematology Oncology [facility], [place] [address] [place] [phone] Nicoel Carrillo PA-C [address] [place] [address] 11/21/2023 9:00 AM EST Hem/Onc Treatment Hematology Oncology [facility], [place] [address] [place] [address] [place], Chair 4 Hem/Onc [address] [place] [address] 12/04/2023 11:00 AM EST Office Visit Cardiology, [facility] [address] [place] [address] Santa Quintero CRNP [address] [place] [address] 12/12/2023 8:45 AM EST Nurse Only Hematology Oncology [facility], [place] [address] [place] [address] [place], Nurse Lab Hem/Onc [facility] [place] [address] 12/12/2023 9:30 AM EST Office Visit Hematology Oncology [facility], [place] [address] [place] [phone] Kerri Foote MD [facility] [place] [address] 12/12/2023 10:30 AM EST Hem/Onc Treatment Hematology Oncology [facility], [place] [address] [place], [place] [phone] [place], Chair 4 Hem/Onc [address] [facility] [place] [address] 05/06/2024 9:20 AM EDT Office Visit Neurology [facility] [place] [address] [place] [address] Kathy Pryor PA-C [address] [place] [address] Health Maintenance Due Date Last Done Comments [...] Power Port 8fr Sngl Lumen Plas - [id number] Implanted:Qty: 1 on 04/24/2021 at [facility] BARD : PERIPHERAL VASCULAR [id number] 02/24/2022 [id number] / / [id number] Port Implant W/8f Poly Cath - [id number] Implanted:Qty: 1 on 10/15/2023 at [facility] CR BARD : PERIPHERAL VASCULAR [id number] 03/27/2025 [id number] / / [id number] documented as of this encounter Results * [...] 50 U/L 11/07/2023 12:20 AM EST LABORATORY [facility] Blood Venous blood specimen / Unknown Venipuncture / Unknown 11/06/2023 12:26 PM EST 11/06/2023 12:26 PM EST Kerri Foote MD LAB BLOOD ORDERAB LES Performing Organization Address City/[facility]/ZIP Co de Phone Number LABORATORY [facility] [address] [place] [address] * TSH WITH FREE T4 IF INDICATED (11/06/2023 12:26 PM EST) TSH 1.51 0.27 - 4.20 uIU/mL 11/07/2023 12:47 AM EST LABORATORY [facility] Blood Venous blood specimen / Unknown Venipuncture / Unknown 11/06/2023 12:26 PM EST 11/06/2023 12:26 PM EST Kerri Foote MD LAB BLOOD ORDERAB LES Performing Organization Address [facility] Co de Phone Number LABORATORY [facility] [address] [place] [address] * (ABNORMAL) HEPARIN, LOW MOLECULAR WEIGHT (10/24/2023 9:50 AM EST) Heparin, Low Molecular Weight 1.10(H) <0.10 IU/mL 10/24/2023 10:25 AM EST LABORATORY [facility] Comment:Low molecular weight heparin's therapeutic range is 0.6 - 1.00 I.U./mL. Blood Venous blood specimen / Unknown Venipuncture / Unknown 10/24/2023 9:50 AM EST 10/24/2023 9:58 AM EST Kerri Foote MD LAB BLOOD ORDERAB LES Performing Organization Address City/[facility]/ZIP Co de Phone Number LABORATORY [facility] [address] [place] [address] documented in this encounter Visit Diagnoses Diagnosis [...] the patient have Health Care Power of Search Developer? No Code Status History Code Status Date Activated Date Inactivated Comments Full Code 05/23/2021 12:21 PM 05/24/2021 9:38 PM This order reflects the patients wishes and were consensually agreed upon. Question Answer Comments Discussion of Advance Directives occurred with: Patient Healthcare Agents on File Name Relationship Healthcare Agent [facility] p Communication Rose Mary Brothers Spouse Health Care Agent Care Teams Disability Rater Relationship Specialty Start Date End Date Matthew Herrmann PA-C [address] [place] [address] PCP - General Physician Specialty Development Consultant 03/22/21 documented as of this encounter
--- OUTSIDE RECORDS SUMMARY | 2024-04-11 14:56 | External Medical Summary | Summary of Care ---
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) Matthew Herrmann PA-C [address] [place] [address] Referral ID Status Reason Start Date Expiration Date Visits Requested Visits Authorized [id number] Authorized Specialty Services Required 06/11/2023 06/11/[phone] Encounter Details Date Type Department Care Team (Latest Contact Info) Description 10/24/2023 9:00 AM EST Hem/Onc Treatment Hematology Oncology [facility], [place] [address] [place] [address] [place], [facility] 4 Hem/Onc [facility] [address] [place], [place] [phone] Non-small cell lung cancer metastatic to bone [...] mRNA, LNP-s, No Pre serve, 2-Dose Series ([employer]) 09/23/2021 documented as of this encounter [...] EST Anticoagulation Pharmacy Call Center WB 58-60 [facility] [place] [address] [facility] 58 60 [facility] [place] [address] 11/21/2023 7:20 AM EST Laboratory Laboratory Hem/Onc [address] [place] [address] [place], Lab Med4 [address] [place] [address] 11/21/2023 8:00 AM EST Office Visit Hematology Oncology [facility], [place] [address] [place] [phone] Nicole Carrillo PA-C [address] [place] [address] 11/21/2023 9:00 AM EST Hem/Onc Treatment Hematology Oncology [facility], [place] [address] [place] [address] [place], Chair 4 Hem/Onc [address] [place] [address] 12/04/2023 11:00 AM EST Office Visit Cardiology, [facility] [address] [place] [address] Santa Quintero CRNP [address] [place] [address] 12/12/2023 8:45 AM EST Nurse Only Hematology Oncology [facility], [place] [address] [place] [address] [place], Nurse Lab Hem/Onc [facility] [place] [address] 12/12/2023 9:30 AM EST Office Visit Hematology Oncology [facility], [place] [address] [place] [phone] Kerri Foote MD [facility] [place] [address] 12/12/2023 10:30 AM EST Hem/Onc Treatment Hematology Oncology [facility], [place] [address] [place], [place] [phone] [place], Chair 4 Hem/Onc [address] [facility] [place] [address] 05/06/2024 9:20 AM EDT Office Visit Neurology [facility] [place] [address] [place] [address] Kathy Pryor PA-C [address] [place] [address] Health Maintenance Due Date Last Done Comments [...] this encounter Medical Devices Implanted Type Area Log Handling Equipment Operator Device Identifier Shelf Expiration Date Model / Serial / Lot Power Port 8fr Sngl Lumen Plas - [id number] Implanted:Qty: 1 on 04/24/2021 at [facility] BARD : PERIPHERAL VASCULAR [id number] 02/24/2022 [id number] / / [id number] Port Implant W/8f Poly Cath - [id number] Implanted:Qty: 1 on 10/15/2023 at [facility] CR BARD : PERIPHERAL VASCULAR [id number] 03/27/2025 [id number] / / [id number] documented as of this encounter Results * [...] 50 U/L 11/07/2023 12:20 AM EST LABORATORY [facility] Blood Venous blood specimen / Unknown Venipuncture / Unknown 11/06/2023 12:26 PM EST 11/06/2023 12:26 PM EST Kerri Foote MD LAB BLOOD ORDERAB LES Performing Organization Address City/[facility]/ZIP Co de Phone Number LABORATORY [facility] [address] [place] [address] * TSH WITH FREE T4 IF INDICATED (11/06/2023 12:26 PM EST) TSH 1.51 0.27 - 4.20 uIU/mL 11/07/2023 12:47 AM EST LABORATORY [facility] Blood Venous blood specimen / Unknown Venipuncture / Unknown 11/06/2023 12:26 PM EST 11/06/2023 12:26 PM EST Kerri Foote MD LAB BLOOD ORDERAB LES Performing Organization Address [facility] Co de Phone Number LABORATORY [facility] [address] [place] [address] * (ABNORMAL) HEPARIN, LOW MOLECULAR WEIGHT (10/24/2023 9:50 AM EST) Heparin, Low Molecular Weight 1.10(H) <0.10 IU/mL 10/24/2023 10:25 AM EST LABORATORY [facility] Comment:Low molecular weight heparin's therapeutic range is 0.6 - 1.00 I.U./mL. Blood Venous blood specimen / Unknown Venipuncture / Unknown 10/24/2023 9:50 AM EST 10/24/2023 9:58 AM EST Kerri Foote MD LAB BLOOD ORDERAB LES Performing Organization Address City/[facility]/ZIP Co de Phone Number LABORATORY [facility] [address] [place] [address] documented in this encounter Visit Diagnoses Diagnosis [...] the patient have Health Care Power of Teachers Assistant? No Code Status History Code Status Date Activated Date Inactivated Comments Full Code 05/23/2021 12:21 PM 05/24/2021 9:38 PM This order reflects the patients wishes and were consensually agreed upon. Question Answer Comments Discussion of Advance Directives occurred with: Patient Healthcare Agents on File Name Relationship Healthcare Agent [facility] Communication Rose Mary Brothers Spouse Health Care Agent Care Teams Tire Sorter Relationship Specialty Start Date End Date Matthew Herrmann PA-C [address] [place] [address] PCP - General Physician Evp 03/22/21 documented as of this encounter
--- OUTSIDE RECORDS SUMMARY | 2024-04-11 14:56 | External Medical Summary ---
Author Name Unknown Address Unknown Organization K01:LABORATORY C - [address] [place] [address] Laboratory Report Ordering Provider Test Date Status IVETTECAINBRITTANY 11/06/2023 12:26:53 Final Observation Date Value Abnormality Reference (Units ) Status Magnesium 11/06/2023 12:26:53 2.3 1.5-2.6 (m g/dL) Final Performing Location LABORATORY [facility] - [address] [place] [address]
--- OUTSIDE RECORDS SUMMARY | 2024-04-11 14:56 | External Medical Summary | Summary of Care ---
Author Name Unknown Organization [facility] Address [address] [place] [address] Phone [phone] Care Team Providers Care Sales Commissions Analyst Name Role Phone Matthew Herrmann PA-C Primary Care Provider +[phone] Reason for Visit * Reason Comments Outpatient Testing Encounter Details Date Type Department Care Team (Late st Contact Info) Description 11/06/2023 12:30 PM [facility] Laboratory Laboratory Patient Service Center[address] [phone] [facility] Lab Lock [address] [place] [address] Primary malignant neoplasm of left lower lobe [...] mRNA, LNP-s, No Pre serve, 2-Dose Series ([employer]) 09/23/2021 documented as of this encounter Social [...] EST Anticoagulation Pharmacy Call Center WB 58-60 [facility] [place] [address] Ccps, [facility] 58 60 [facility] [place] [address] 11/21/2023 7:20 AM EST Laboratory Laboratory Hem/Onc [place] [address] [place] [address] [place], Lab Med4 [facility] [address] [place], [place] [phone] 11/21/2023 8:00 AM EST Office Visit Hematology Oncology [facility], [place] [address] [place] [address] Nicole Carrillo PA-C [address] [place], [place] [phone] 11/21/2023 9:00 AM EST Hem/Onc Treatment Hematology Oncology [facility], [place] [address] [place], [place] [phone] [place], Chair 4 Hem/Onc [facility] [address] [place], [place] [address] 12/04/2023 11:00 AM EST Office Visit Cardiology, [facility] [address] [address] Santa Quintero CRNP [address] [place] [address] 12/12/2023 8:45 AM EST Nurse Only Hematology Oncology [place] [address] [place], [place] [phone] [place], Nurse Lab Hem/[place] [address] 12/12/2023 9:30 AM EST Office Visit Hematology Oncology [facility], [place] [address] [place] [address] Kerri Foote MD [facility] [address] 12/12/2023 10:30 AM EST Hem/Onc Treatment Hematology Oncology [facility], [place] [address] [place] [address] [place], Chair 4 Hem/Onc [address] [place] [address] 05/06/2024 9:20 AM EDT Office [facility] [address] [facility] [place] [address] Kathy Pryor PA-C [address] [place] [address] Pending Results Name Type Priority Associated Diagnoses [...] this encounter Medical Devices Implanted Type Area Electrical And Instrument Engineer Device Identifier Shelf Expiration Date Model / Serial / Lot Power Port 8fr Sngl Lumen Plas - [id number] Implanted:Qty: 1 on 04/24/2021 at [facility] CR BARD : PERIPHERAL VASCULAR [id number] 02/24/2022 [id number] / / [id number] Port Implant W/8f Poly Cath - [id number] Implanted:Qty: 1 on 10/15/2023 at [facility] CR BARD : PERIPHERAL VASCULAR [id number] 03/27/2025 [id number] / / [id number] documented as of this encounter Visit Diagnoses [...] the patient have Health Care Power of Forestry Faculty Member? No Code Status History Code Status Date Activated Date Inactivated Comments Full Code 05/23/2021 12:21 PM 05/24/2021 9:38 PM This order reflects the patients wishes and were consensually agreed upon. Question Answer Comments Discussion of Advance Directives occurred with: Patient Healthcare Agents on File Name Relationship Healthcare Agent Relationshi p Communication Rose Mary Brothers Spouse Health Care Agent Care Teams Sales Commissions Analyst Relationship Specialty Start Date End Date Matthew Herrmann PA-C [address] [place] [phone] PCP - General Physician Director Of Catering 03/22/21 documented as of this encounter
--- OUTSIDE RECORDS SUMMARY | 2024-04-11 14:56 | External Medical Summary | Summary of Care ---
Author Name Unknown Organization [facility] Address [address] [place] [address] Phone [phone] Care Team Providers Care Corporate Executive Name Role Phone Matthew Herrmann PA-C Primary Care Provider +1 -[phone] Reason for Visit * Reason Onset Date Comments Order Request 11/07/2023 Encounter Details Date Type Department Care Team (Late st Contact Info) Description 11/07/2023 Telephone Pharmacy Call Center [address] [place] [address] [facility] [address] [place] [address] Order Request Allergies Active Allergy Reactions Criticality [...] mRNA, LNP-s, No Pre serve, 2-Dose Series ([employer]) 09/23/2021 documented as of this encounter Social [...] encounter Miscellaneous Notes * Telephone Encounter - Shereen Evans [facility] - 11/07/2023 8:29 AM EST Standing LMWH level placed. Thank You Shereen Evans PharmD Clinical Pharmacist [facility] ([facility]PS) (formerly Telepharmacy) [phone] / [phone] 11/07/2023, 8:29 AM * Telephone Encounter - Madelyn Cordoba PHARM Tech - 11/07/2023 8:06 AM EST Caller's name: Rose Mary Gallegos call back number(OFFICE NUMBER FOR ): [phone] Reason for call: Pts calling to let [facility] know the Heparin orders aren't in epic. Please place orders. Thank you, Madelyn Cordoba Anesthesiologist Physician [facility] 11/07/2023,8:06 AM documented in this encounter Plan of Treatment Upcoming Encounters Date Type Department Care Team (Late st Contact Info) Description 11/07/2023 6:00 PM EST Anticoagulation Pharmacy Call Center WB [address] [place] [address] [facility], [facility] 58 [address] [place] [address] 11/21/2023 7:20 AM EST Laboratory Laboratory Hem/Onc [place] [address] [place] [phone] [place] [place] [address] 11/21/2023 8:00 AM EST Office Visit Hematology Oncology [facility] [address] [place] [phone] Nicole Carrillo PA-C [address] [place] [address] 11/21/2023 9:00 AM EST Hem/Onc Treatment Hematology Oncology [facility], [place] [address] [place] [address] P[place]co, Chair 4 Hem/Onc [address] [place] [address] 12/04/2023 11:00 AM EST Office Visit Cardiology, [facility] [address] [facility] [place] [address] [place] CRNP [address] [facility] [place] [address] 12/12/2023 8:45 AM EST Nurse Only Hematology Oncology [facility], [place] [address] [place] [address] [place], Nurse Lab Hem/Onc [address] [place] [address] 12/12/2023 9:30 AM EST Office Visit Hematology Oncology [facility], [address] [phone] Kerri Foote MD [facility] [place] [address] 12/12/2023 10:30 AM EST Hem/Onc Treatment Hematology Oncology [facility], [place] [address] [place] [address] Pacheco, Chair 4 Hem/Onc [address] [place] [address] 05/06/2024 9:20 AM EDT Office Visit Neurology [address] [facility] [place] [phone] Kathy Pryor PA-C 200 [facility] [place] [address] Scheduled Orders Name Type Priority Associated Diagnoses Orde r Schedule HEPARIN, LOW MOLECULAR WEIGHT Lab Routine History of pulmonary embolism Acute deep vein thrombosis (DVT) of proximal vein of right lower extremity (HCC) Other, Please specify in Comments field for 26 Occurrences starting 11/07/2023 until 11/07/2024 Health Maintenance Due Date Last Done Comments [...] this encounter Medical Devices Implanted Type Area Phone Counselor Device Identifier Shelf Expiration Date Model / Serial / Lot Power Port 8fr Sngl Lumen Plas - [id number] Implanted:Qty: 1 on 04/24/[address] [facility] CR BARD : PERIPHERAL VASCULAR [id number] 02/24/2022 [id number] / / [id number] Port Implant W/8f Poly Cath - [id number] Implanted:Qty: 1 on 10/15/[address] [facility] CR BARD : PERIPHERAL VASCULAR [id number] 03/27/2025 [id number] / / [id number] documented as of this encounter Visit Diagnoses Diagnosis History of pulmonary embolism- Primary Personal history of pulmonary embolism Acute deep [...] the patient have Health Care Power of Eap Counselor? No Code Status History Code Status Date Activated Date Inactivated Comments Full Code 05/23/2021 12:21 PM 05/24/2021 9:38 PM This order reflects the patients wishes and were consensually agreed upon. Question Answer Comments Discussion of Advance Directives occurred with: Patient Healthcare Agents on File Name Relationship Healthcare Agent [facility] Communication Rose Mary Brothers Spouse Health Care Agent Care Teams Corporate Executive Relationship Specialty Start Date End Date Matthew Herrmann PA-C [address] [place] [address] PCP - General Physician Forklift Truck Mechanic 03/22/21 documented as of this encounter
--- OUTSIDE RECORDS SUMMARY | 2024-04-11 14:56 | External Medical Summary | Summary of Care ---
Author Name Unknown Organization [facility] Address [address] [facility] [address] Phone [phone] Care Team Providers Care Pulp And Paper Tester Name Role Phone Matthew Herrmann PA-C Primary Care Provider [phone] Reason for Visit * Reason Comments Dosage Adjustment Via Phone (anticoag Cl inic) Encounter Details Date Type Department Care Team (Latest Contact Info) Description 11/07/2023 6:00 PM [facility] Anticoagulation Pharmacy Call Center WB [address] [place] [address] [facility] [address] [facility] [place] [address] Acute deep vein thrombosis (DVT) of proximal [...] mRNA, LNP-s, No Pre serve, 2-Dose Series ([employer]) 09/23/2021 documented as of this encounter [...] as of this encounter Progress Notes * Elba Schreiber PHARM Tech - 11/07/2023 12:57 PM EST Contacts Type Contact Phone/Fax 11/07/2023 12:55 PM EST Phone (Outgoing) [employer] [place] (Self) [phone] (M) Subjective Advised patient to contact Anticoagulation Clinic if any unusual bruising or bleeding, recent illness, changes in medication, or questions/concerns. PT/INR results, Coumadin dose instructions, and next PT/INR date communicated as noted by Pharmacist: Yes ESDRAS NICHOLS 11/07/2023, 12:57 PM * Betzy Parra RPh - 11/07/2023 10:44 AM EST Anticoagulation Clinic Current Lovenox Dose: 80mg every 12 hours AntiXa level 1.26 (goal 0.6-1.0) Dose instructions: Lovenox HOLD x 1 dose then CONTINUE 80mg every 12 hours Repeat antiXa level in 1 weeks on 11/13 at [place]. Remind patient that labs must be drawn 4 hours after dose. SHIRA to contact patient with dose instructions as noted. Betzy Parra RPh 11/07/23, 10:44 AM documented in this encounter Plan of Treatment Upcoming Encounters Date Type Department Care Team (Late st Contact Info) Description 11/21/2023 7:20 AM EST Laboratory Laboratory Hem/Onc [address] [phone] [address] 11/21/2023 8:00 AM EST Office Visit Hematology Oncology [address] [phone] Nicole Carrillo PA-C [address] [place], [place] [phone] 11/21/2023 9:00 AM EST Hem/Onc Treatment Hematology Oncology [facility], [place] [address] [place] [address] Pacheco, Chair 4 Hem/Onc [address] [place], [place] [address] 12/04/2023 11:00 AM EST Office Visit Cardiology, [facility] [address] [facility] [address] [place] CRNP [address] [place] [address] 12/12/2023 8:45 AM EST Nurse Only Hematology Oncology [facility], [place] [address] [place] [address] [place], Nurse Lab Hem/Onc [address] [place] [address] 12/12/2023 9:30 AM EST Office Visit Hematology Oncology [facility], [place] [address] [place] [phone] Kerri Foote MD [address] [place], [place] [phone] 12/12/2023 10:30 AM EST Hem/Onc Treatment Hematology Oncology [facility], [place] [address] [place] [address] Pacheco, Chair 4 Hem/Onc [facility] [address] [place], [place] [phone] 05/06/2024 9:20 AM EDT Office Visit Neurology [address] [place] [address] [place] [address] Kathy Pryor PA-C [address] [place] [address] Health Maintenance Due Date Last Done Comments [...] shot) (#1) 2023 Lipid Panel 09/19/2026 09/19/2021, 10/12/2012, 04/25/2010 Diabetes Screening 11/06/2026 11/06/2023, 0 11/06/2023, 10/24/2023, Additional history exists Colonoscopy 08/13/2029 08/13/2019, 08/13/2019 Colorectal Cancer Screening 08/13/2029 GARDASIL-HPV IMMUNIZATION SERIES Aged Out No longer eligible based on patient's age to complete this topic MENINGOCOCCAL (MENACTRA/MENVEO) Aged Out No longer eligible based on patient's age to complete this topic documented as of this encounter Medical Devices Implanted Type Area Human Resources District Manager Device Identifier Shelf Expiration Date Model / Serial / Lot Power Port 8fr Sngl Lumen Plas - [id number] Implanted:Qty: 1 on 04/24/2021 at [facility] CR BARD : PERIPHERAL VASCULAR [id number] 02/24/2022 [id number] / / [id number] Port Implant W/8f Poly Cath - [id number] Implanted:Qty: 1 on 10/15/2023 at [facility] CR BARD : PERIPHERAL VASCULAR [id number] 03/27/2025 [id number] / / [id number] documented as of this encounter Visit Diagnoses [...] the patient have Health Care Power of Impregnator Electrolytic Capacitors? No Code Status History Code Status Date Activated Date Inactivated Comments Full Code 05/23/2021 12:21 PM 05/24/2021 9:38 PM This order reflects the patients wishes and were consensually agreed upon. Question Answer Comments Discussion of Advance Directives occurred with: Patient Healthcare Agents on File Name Relationship Healthcare Agent [facility] Communication Rose Mary Brothers Spouse Health Care Agent Care Teams Pulp And Paper Tester Relationship Specialty Start Date End Date Matthew Herrmann PA-C [address] [place] [address] PCP - General Physician Machine Sprayer 03/22/21 documented as of this encounter
--- OUTSIDE RECORDS SUMMARY | 2024-04-11 14:56 | External Medical Summary | Summary of Care ---
Author Name Unknown Organization [facility] Address [address] [place] [address] Phone [phone] Care Team Providers Care Exterior Interior Specialist Name Role Phone Matthew Herrmann PA-C Primary Care Provider +1 [phone] Reason for Visit * Reason Comments Outpatient Testing Encounter Details Date Type Department Care Team (Late st Contact Info) Description 11/06/2023 12:30 PM [facility] Laboratory Laboratory Patient Service Center[address] [phone] [facility] Lab Lock [address] [place] [address] Primary malignant neoplasm of left lower lobe [...] mRNA, LNP-s, No Pre serve, 2-Dose Series ([employer]) 09/23/2021 documented as of this encounter Social [...] EST Anticoagulation Pharmacy Call Center WB [address] [facility] [place] [address] Ccps, [facility] 58 60 [facility] [place] [address] 11/21/2023 7:20 AM EST Laboratory Laboratory Hem/Onc [place] [address] [place] [address] [place], Lab Med4 [facility] [address] [place], [place] [address] 11/21/2023 8:00 AM EST Office Visit Hematology Oncology [facility], [place] [address] [place] [address] Nicole Carrillo PA-C [address] [place], [place] [phone] 11/21/2023 9:00 AM EST Hem/Onc Treatment Hematology Oncology [facility], [place] [address] [place], [place] [phone] P[place]co, Chair 4 Hem/Onc [facility] [address] [place], [place] [address] 12/04/2023 11:00 AM EST Office Visit Cardiology, [facility] [address] [place] [address] [place] CRNP [address] [place] [address] 12/12/2023 8:45 AM EST Nurse Only Hematology Oncology [place] [address] [place], [place] [phone] [place], Nurse Lab Hem/Onc [facility] [place] [address] 12/12/2023 9:30 AM EST Office Visit Hematology Oncology [facility], [place] [address] [place] [address] Kerri Foote MD [facility] [place] [address] 12/12/2023 10:30 AM EST Hem/Onc Treatment Hematology Oncology [facility], [place] [address] [place] [address] Pacheco, Chair 4 Hem/Onc [address] [place] [address] 05/06/2024 9:20 AM EDT Office Visit Neurology [facility] 200 [facility] [place] [address] Kathy Pryor PA-C [address] [place] [address] Pending Results Name Type Priority Associated Diagnoses [...] to bone (HCC) 11/06/2023 12:26 PM EST HEPARIN, LOW MOLECULAR WEIGHT Lab STAT Primary malignant neoplasm of left lower lobe of lung (HCC) 11/06/2023 12:52 PM EST Health Maintenance Due Date Last [...] Panel 09/19/2026 09/19/2021, 10/12/2012, 04/25/2010 Diabetes Screening 10/24/2026 10/24/2023, 1 12/11/2022, 10/08/2023, Additional history exists Colonoscopy 08/13/2029 08/13/2019, 08/13/2019 Colorectal Cancer Screening 08/13/2029 GARDASIL-HPV IMMUNIZATION SERIES Aged Out No longer eligible based on patient's age to complete this topic MENINGOCOCCAL (MENACTRA/MENVEO) Aged Out No longer eligible based on patient's age to complete this topic documented as of this encounter Medical Devices Implanted Type Area Green Marketing Analyst Device Identifier Shelf Expiration Date Model / Serial / Lot Power Port 8fr Sngl Lumen Plas - [id number] Implanted:Qty: 1 on 04/24/2021 at [facility] CR BARD : PERIPHERAL VASCULAR [id number] 02/24/2022 [id number] / / [id number] Port Implant W/8f Poly Cath - [id number] Implanted:Qty: 1 on 10/15/2023 at [facility] CR BARD : PERIPHERAL VASCULAR [id number] 03/27/2025 [id number] / / [id number] documented as of this encounter Visit Diagnoses [...] the patient have Health Care Power of Wind Field Service Manager? No Code Status History Code Status [...] Care Agent [phone] (Mobile) Care Teams Exterior Interior Specialist Relationship Specialty Start Date End Date Matthew Herrmann PA-C [address] [place] [address] [place] [address] PCP - General Physician Production Painter 03/22/21 documented as of this encounter
--- OUTSIDE RECORDS SUMMARY | 2024-04-11 14:56 | External Medical Summary ---
Author Name Unknown Address Unknown Organization K01:[facility] - [facility] [place] [address] Laboratory Report Ordering Provider Test Date Status JOSE STEELE 11/06/2023 12:52:51 Final Observation Date Value Abnormality Reference (Units ) Status LMW Heparin [Units/volume] in Platelet poor plasma by Chromogenic method 11/06/2023 12:52:51 1.26 Above high normal <0.10 (IU/mL) Final Low molecular weight heparin 's therapeutic range is 0.6 - 1.00 I.U./mL. Performing Location [facility] - [address] [place] [address]
--- OUTSIDE RECORDS SUMMARY | 2024-04-11 14:56 | External Medical Summary ---
Author Name Unknown Address Unknown Organization K01:[facility] - [address] [facility] [place] [address] Laboratory Report Ordering Provider Test Date Status JOSE STEELE 11/06/2023 12:26:53 Final Observation Date Value Abnormality Reference (Units ) Status BUN 11/06/2023 12:26:53 15 6-20 (mg/dL) Final Creatinine 11/06/2023 12:26:53 0.9 0.6-1.2 (mg/dL) Final Glomerular filtration rate/1.73 sq M.predicted [Volume Rate/Area] in Serum, Plasma or Blood by Creatinine-based formula (CKD-EPI) 11/06/2023 12:26:53 >90 >=60 (mL/min) Final eGFR is calculated based on the CKD-EPI 2020 equation SODIUM 11/06/2023 12:26:53 142 135-146 (m mol/L) Final Potassium 11/06/2023 12:26:53 4.0 3.5-5.1 (m mol/L) Final Cl 11/06/2023 12:26:53 104 98-107 (mm ol/L) Final CO2 11/06/2023 12:26:53 25 22-32 (mmo l/L) Final Anion gap 11/06/2023 12:26:53 13 7-15 (mmol /L) Final Glucose 11/06/2023 12:26:53 144 Above high normal 70 -120 (mg/dL) Final Albumin 11/06/2023 12:26:53 4.2 3.8-5.0 (g /dL) Final AST (Aspartate aminotransferase) 11/06/2023 12:26:53 26 10-50 (U/L) Fin al Alk Phos 11/06/2023 12:26:53 69 35-130 (U/ L) Final Bilirubin, Total 11/06/2023 12:26:53 0.4 <=1 .2 (mg/dL) Final Calcium 11/06/2023 12:26:53 9.0 8.4-10.2 ( mg/dL) Final Protein 11/06/2023 12:26:53 6.4 6.0-8.3 (g /dL) Final ALT (Alanine aminotransferase) 11/06/2023 12:26:53 79 Above high normal 10-50 (U/L) Final Performing Location LAB[facility]ORY [facility] - [address] [facility] [address]
--- OUTSIDE RECORDS SUMMARY | 2024-04-11 14:56 | External Medical Summary | Summary of Care ---
Author Name Unknown Organization [facility] Address [address] [place] [address] Phone [phone] Care Team Providers Care Pot Builder Name Role Phone Matthew Herrmann PA-C Primary Care Provider [phone] Reason for Visit * Reason Comments Outpatient Testing Encounter Details Date Type Department Care Team (Late st Contact Info) Description 11/06/2023 12:30 PM [facility] Laboratory Laboratory Patient Service Center[address] [phone] [facility] Lab Lock [address] [place] [address] Primary malignant neoplasm of left lower lobe [...] mRNA, LNP-s, No Pre serve, 2-Dose Series ([employer]) 09/23/2021 documented as of this encounter Social [...] EST Anticoagulation Pharmacy Call Center [address] [facility] [place] [address] Ccps, [facility] 58 60 [facility] [place] [address] 11/21/2023 7:20 AM EST Laboratory Laboratory Hem/Onc [place] [address] [place] [address] P[place], Lab Med4 [facility] [address] [place], [place] [address] 11/21/2023 8:00 AM EST Office Visit Hematology Oncology [facility], [place] [address] [place] [address] Nicole Carrillo PA-C [address] [place], [place] [phone] 11/21/2023 9:00 AM EST Hem/Onc Treatment Hematology Oncology [facility], [place] [address] [place], [place] [address] Pacheco, Chair 4 Hem/Onc [facility] [address] [place], [place] [address] 12/04/2023 11:00 AM EST Office Visit Cardiology, [facility] [address] [address] [place] Quintero CRNP [address] [place] [address] 12/12/2023 8:45 AM EST Nurse Only Hematology Oncology [place] [address] [place], [place] [address] [place], Nurse Lab Hem/[place]c [facility] [address] 12/12/2023 9:30 AM EST Office Visit Hematology Oncology [facility], [place] [address] [place] [address] Kerri Foote MD [facility] [place] [address] 12/12/2023 10:30 AM EST Hem/Onc Treatment Hematology Oncology [facility], [place] [address] [place] [address] Pacheco, Chair 4 Hem/Onc [address] [place] [address] 05/06/2024 9:20 AM EDT Office Visit [facility] 200 [facility] [place] [address] Kathy Pryor PA-C [address] [place] [address] Pending Results Name Type Priority Associated Diagnoses [...] this encounter Medical Devices Implanted Type Area In Mold Coater Device Identifier Shelf Expiration Date Model / Serial / Lot Power Port 8fr Sngl Lumen Plas - [id number] Implanted:Qty: 1 on 04/24/2021 at [facility] CR BARD : PERIPHERAL VASCULAR [id number] 02/24/2022 [id number] / / [id number] Port Implant W/8f Poly Cath - [id number] Implanted:Qty: 1 on 10/15/2023 at [facility] CR BARD : PERIPHERAL VASCULAR [id number] 03/27/2025 [id number] / / [id number] documented as of this encounter Visit Diagnoses [...] the patient have Health Care Power of Special Projects Coordinator? No Code Status History Code Status Date Activated Date Inactivated Comments Full Code 05/23/2021 12:21 PM 05/24/2021 9:38 PM This order reflects the patients wishes and were consensually agreed upon. Question Answer Comments Discussion of Advance Directives occurred with: Patient Healthcare Agents on File Name Relationship Healthcare Agent Relationshi p Communication Rose Mary Brothers Spouse Health Care Agent Care Teams Pot Builder Relationship Specialty Start Date End Date Matthew Herrmann PA-C [address] [place] [address] PCP - General Physician Child Support Case Officer 03/22/21 documented as of this encounter
--- OUTSIDE RECORDS SUMMARY | 2024-04-11 14:57 | External Medical Summary | Summary of Care ---
Author Name Unknown Organization [facility] Address [address] [place] [address] Phone [phone] Care Team Providers Care Package Line Relief Operator Name Role Phone Matthew Herrmann PA-C Primary Care Provider [phone] Reason for Visit * Reason Comments Cough Recently had chemo t reatment. Had covid 07/30/2023. Encounter Details Date Type Department Care Team ([facility] st Contact Info) Description 10/29/2023 3:00 PM EST Office Visit [address] [phone] Matthew Herrmann PA-C [address] [place] [address] LRTI (lower respiratory tract infection)*; 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); Immunodeficiency (HCC); Excessive thirst Allergies Active Allergy Reactions Criticality Noted Date Comments Carboplatin High 11/14/2021 Dyspnea, chest pain, hypoxia, sore throat, edema throat, flushing, mild hypotension Isosorbide Nitrate Other (Please comment) 07/22/2023 Headache documented as of this encounter (statuses as of 10/30/2023) Medications Medication Sig Dispensed Refills Start Date [...] before bedtime. 8 mL 2 10/11/2023 Active Azithromycin 250 MG Oral Tablet (Zithromax)Indicatio ns:LRTI (lower respiratory tract infection) Take 2 tabs by mouth on the first day, then 1 tab daily on days two through five 6 Tablet 0 10/29/2023 4 Active Amoxicillin-Pot Clavulanate 875-125 MG Oral Tablet (Augmentin)Indicatio ns:LRTI (lower respiratory tract infection) Take 1 Tablet by mouth in the morning and 1 Tablet before bedtime. Do all this for 10 days. 20 Tablet 0 10/29/2023 4 Active ProAir HFA 108 (90 Base) MCG/ACT Inhalation Aerosol SolutionIndications: LRTI (lower respiratory tract infection) Inhale 2 Puffs by mouth every 4 hours as needed for Wheezing or Shortness of Breath. 18 g 0 10/29/2023 Active Amoxicillin-Pot Clavulanate 875-125 MG Oral Tablet (Augmentin) 1 Tablet in the morning and 1 Tablet before bedtime. 0 10/08/2023 4 Discontinue d(Medicatio n List Clean Up) documented as of this encounter (statuses as of 10/30/2023) Active Problems Problem Noted Date Diagnosed Date [...] as of this encounter (statuses as of 10/30/2023) Resolved Problems Problem Noted Date Diagnosed Date Resolved Date Prediabetes 09/22/2021 08/09/2022 MSSA bacteremia 08/01/2021 08/07/2021 Sepsis 08/01/2021 08/07/2021 COPD, group B, by GOLD 2017 classification 05/08/2021 06/21/2021 Overview: Per COPD GOLD Classification Obstructive lung disease 04/10/2021 Overview: Per COPD GOLD Classification documented as of this encounter (statuses as of 10/30/2023) Immunizations Name Administration Dates Next Due COVID-19 mRNA, LNP-s, No Pre serve, 2-Dose Series (RadioFrame) 09/23/2021 documented as of this encounter Social [...] Sign Reading Time Taken Comments Blood Pressure 132/80 10/29/2023 3:04 PM EST Pulse 84 10/29/2023 3:04 PM EST Temperature 36.4 C (97.6 F) 10/29/2023 3:04 PM ES T Respiratory Rate 17 10/29/2023 3:04 PM EST Oxygen Saturation 97% 10/29/2023 3:04 PM EST Inhaled Oxygen Concentration - - Weight 103.4 kg (228 lb) 10/29/2023 3:04 PM EST Height - - Body Mass Index 31.82 10/24/2023 8:01 AM EST documented in this encounter Functional [...] Progress Notes * Matthew Herrmann PA-C - 10/29/2023 3:20 PM EST Images from the original note were not included. History of Present Illness John Brothers is a 53 year old male that presents for Cough (Recently had chemo treatment. Had covid 07/30/2023.) Was seen at [facility] 10/07/23 due to SOB, dx pneumonia, Rx'd Augmentin which he completed. Seemed toimprove some. Had chemo again last and again developed productive cough. No fever. No acute change in breathing, but does admit wheezing at times. On 4mg Dexamethasone daily. No inhaler use. Not currentlyfollowing with Pulmonology - encouraged to discuss with Analysis Specialist. No known ill exposures, worries about sanjay COVID-19 again - last time early July 2023. Admits excessive thirst and weight gain attributed to medication(s) including dexamethasone 4mg/day. Not up to date with immunizations - encouraged to discuss with Hematology if/when indicated. Physical Exam Vitals: 10/29/23 1504 Temp: 36.4 C (97.6 F) Pulse: 84 Resp: 17 SpO2: 97% BP: 132/80 Wt Readings from Last 3 Encounters: 10/29/23 103.4 kg (228 lb) 10/24/23 101.3 kg (223 lb 4.8 oz) 10/03/23 98.3 kg (216 lb 11.2 oz) Physical Exam Vitals and nursing note reviewed. Constitutional: General: He is not in acute distress. HENT: Head: Normocephalic and atraumatic. Right Ear: Tympanic membrane, ear canal and external ear normal. Left Ear: Tympanic membrane, ear canal and external ear normal. Mouth/Throat: Mouth: Mucous membranes are moist. Cardiovascular: Rate and Rhythm: Normal rate and regular rhythm. Pulmonary: Effort: Pulmonary effort is normal. Breath sounds: No wheezing, rhonchi or rales. Comments: Diminished breath sounds throughout. Musculoskeletal: Cervical back: Neck supple. Comments: Trace LE edema Lymphadenopathy: Cervical: No cervical adenopathy. Neurological: Mental Status: He is alert and oriented to person, place, and time. I have reviewed the following results: Hemoglobin AIC Results: Lab Results Component Value Date/Time HEMOGLOBIN A1C - [facility] 5.5 05/24/2023 11:08 AM HEMOGLOBIN A1C - [facility] 5.7 (H) 09/19/2021 09:57 AM HEMOGLOBIN A1C - [facility] 5.5 01/03/2017 10:13 AM HEMOGLOBIN A1C - [facility] 5.5 07/30/2013 10:05 AM Assessment and Plan LRTI (lower respiratory tract infection) - RESPIRATORY PATHOGEN PANEL, PCR; Future - Azithromycin 250 MG Oral Tablet (Zithromax); Take 2 tabs by mouth on the first day, then 1 tab daily on days two through five - Amoxicillin-Pot Clavulanate 875-125 MG Oral Tablet (Augmentin); Take 1 Tablet by mouth in the morning and 1 Tablet before bedtime. Do all this for 10 days. - ProAir HFA 108 (90 Base) MCG/ACT Inhalation Aerosol Solution; Inhale 2 Puffs by mouth every 4 hours as needed for Wheezing or Shortness of Breath. 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) Immunodeficiency (HCC) Wrap-Up Follow Up: Return if symptoms worsen or fail to improve. Time: I spent a total of 30-39 minutes (exact time 30 mins) on the date of service in preparation, delivery, and documentation of the care provided to John Brothers excluding any time spent in the performance of separately billed services. documented in this encounter Nursing Notes * Fausto Polanco LPN - 10/29/2023 3:05 PM EST The patient has been properly identified by confirmation of name and date of . Chief Complaint Patient presents with Cough Recently had chemo treatment. Had covid 07/30/2023. Would like to discuss lab work regarding Heparin Level. documented in this encounter Plan of Treatment Upcoming Encounters Date Type Department Care Team (Latest Contact Info) Description 10/30/2023 11:20 AM EST Office Visit Neurology [facility] [address] [facility] [place] [address] Kathy Pryor PA-C [address] [facility] [place] [address] 11/05/2023 6:15 AM EST Hospital Encounter [address], [address] [place] [address] Canceled (Clinician Appt Cancel Appt Not Needed) 11/06/2023 6:15 AM EST Anticoagulation Pharmacy Call Center WB [phone] [facility] [place] [phone] [facility] 60 [facility] [place] [address] 11/18/2023 7:30 AM EST NeuroDiagnostic Study Neurophysiology, [address] [place] [id number] 1, Neurophys Tech [address] [place], [place] [address] [address] 11/21/2023 7:20 AM EST Laboratory Laboratory Hem/Onc [facility], [place] [address] [place] [phone] [place], Lab Med4 [facility] [place] [address] 11/21/2023 8:00 AM EST Office Visit Hematology Oncology [facility], [place] [address] [place] [phone] Nicole Carrillo PA-C [address], [place] [phone] 11/21/2023 9:00 AM EST Hem/Onc Treatment Hematology Oncology [facility], [place] [address] [place] [address] Pacheco, Chair 4 Hem/Onc [address] [place] [address] 12/04/2023 11:00 AM EST Office Visit Cardiology, [facility] [address] [place] [address] Santa Quintero CRNP [address] [facility] [place] [address] 12/12/2023 8:45 AM EST Nurse Only Hematology Oncology [place] [address] [place] [address] [place], Nurse Lab Hem/Onc [address] [place] [address] 12/12/2023 9:30 AM EST Office Visit Hematology Oncology [facility], [address] [phone] Kerri Foote MD [facility] [address], [place] [phone] 12/12/2023 10:30 AM EST Hem/Onc Treatment Hematology Oncology [facility], [place] [address] [place] [address] [place], Chair 4 Hem/Onc [address] [place] [address] Scheduled Orders Name Type Priority Associated Diagnoses Orde r Schedule HEMOGLOBIN A1C Lab Routine Excessive thirst Expected: 10/29/2023 (Approximate), Expires: 10/28/2024 Health Maintenance Due Date Last Done Comments [...] this encounter Medical Devices Implanted Type Area Welder And Fitter Device Identifier Shelf Expiration Date Model / Serial / Lot Power Port 8fr Sngl Lumen Plas - [id number] Implanted:Qty: 1 on 04/24/2021 at [facility] BARD : PERIPHERAL VASCULAR [id number] 02/24/2022 [id number] / / [id number] Port Implant W/8f Poly Cath - [id number] Implanted:Qty: 1 on 10/15/2023 at [facility] BARD : PERIPHERAL VASCULAR [id number] 03/27/2025 [id number] / / [id number] documented as of this encounter Procedures Procedure Name Priority Date/Time Associated Diagnosis Comments RESPIRATORY PATHOGEN PANEL, PCR Routine 10/29/2023 4:05 PM EST LRTI (lower respiratory tract infection) documented in this encounter Results * RESPIRATORY PATHOGEN PANEL, PCR (10/29/2023 4:05 PM EST) Adenovirus by PCR Negative Negative 024 3:34 AM EST [place] [facility] Coronavirus 229E by PCR Negative Negative 10/30/2023 3:34 AM EST [facility] Coronavirus HKU1 by PCR Negative Negative 10/30/2023 3:34 AM EST [facility] [facility] Coronavirus NL63 by PCR Negative Negative 10/30/2023 3:34 AM EST [facility] Coronavirus OC43 by PCR Negative Negative 10/30/2023 3:34 AM EST [facility] Coronavirus SARS-CoV-2 by PCR Negative Negative 10/30/2023 3:34 AM EST [facility] Human Metapneumovirus by PCR Negative Negative 10/30/2023 3:34 AM EST [facility] Rhinovirus/Enterovi yuan by PCR Negative Negative 10/30/2023 3:34 AM EST [facility] Influenza A Virus by PCR Negative Negative 10/30/2023 3:34 AM EST [facility] Influenza B Virus by PCR Negative Negative 10/30/2023 3:34 AM EST [facility] Parainfluenza Virus 1 by PCR Negative Negative 10/30/2023 3:34 AM EST LABORATORY [facility] Parainfluenza Virus 2 by PCR Negative Negative 10/30/2023 3:34 AM EST [facility] Parainfluenza Virus 3 by PCR Negative Negative 10/30/2023 3:34 AM EST [facility] Parainfluenza Virus 4 by PCR Negative Negative 10/30/2023 3:34 AM EST [facility] Respiratory Syncytial Virus by PCR Negative Negative 10/30/2023 3:34 AM EST LAB[facility]ATORY [facility] Bordetella pertussis by PCR Negative Negative 10/30/2023 3:34 AM EST LABORATORY [facility] Chlamydia pneumoniae by PCR Negative Negative 10/30/2023 3:34 AM EST LAB[facility]ATORY [facility] Mycoplasma pneumoniae by PCR Negative Negative 10/30/2023 3:34 AM EST LABORATORY [facility] Bordetella parapertussis by PCR Negative Negative 10/30/2023 3:34 AM EST [facility] Comment: The primers that detect Rhinovirus may cross react with some Enterorviruses. The validation of bronchial specimens, tracheal aspirates, and throats for this assay was developed and performance characteristics determined by [employer]. The validation of alternate specimen types has not been cleared or approved by the U.S. Food and Drug Administration (FDA). It has been determined that such clearance or approval is not necessary. Upper Respiratory Mid-turbinate nasal swab / Unknown Non-blood Collection / Unknown 10/29/2023 4:05 PM EST 10/29/2023 4:54 PM EST Matthew Herrmann PA-C LAB MICRO - GENER AL ORDERABLES [facility] [address] [place] [address] documented in this encounter Visit Diagnoses Diagnosis LRTI (lower respiratory tract infection)- Primary Other diseases of respiratory system, not elsewhere classified 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) Immunodeficiency (HCC) Unspecified immunity deficiency Excessive thirst Polydipsia documented in this encounter [...] the patient have Health Care Power of Combat Control Manager? No Code Status History Code Status Date Activated Date Inactivated Comments Full Code 05/23/2021 12:21 PM 05/24/2021 9:38 PM This order reflects the patients wishes and were consensually agreed upon. Question Answer Comments Discussion of Advance Directives occurred with: Patient Healthcare Agents on File Name Relationship Healthcare Agent [facility] Communication Rose Mary Brothers Spouse Health Care Agent Care Teams Package Line Relief Operator Relationship Specialty Start Date End Date Matthew Herrmann PA-C [address] [place] [phone] PCP - General Physician Assistant Center Director 03/22/21 documented as of this encounter
--- OUTSIDE RECORDS SUMMARY | 2024-04-11 14:57 | External Medical Summary | Summary of Care ---
Author Name Unknown Organization [facility] Address [address] [place] [address] Phone [phone] Care Team Providers Care Vegetable Scullion Name Role Phone Matthew Herrmann PA-C Primary Care Provider [phone] Reason for Visit * Evaluate & Treat - Unlimited Visits (Within 30 days (routine)) - Authorized Specialty Diagnoses / Procedures Referred By Yuli seay Referred To Contact Hematology/Oncology / Hematology Oncology Diagnoses 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) Matthew Herrmann PA-C [address] [place] [address] Referral ID Status Reason Start Date Expiration Date Visits Requested Visits Authorized [id number] Authorized Specialty Services Required 06/11/2023 06/11/[phone] Encounter Details Date Type Department Care Team (Latest Contact Info) Description 10/24/2023 9:00 AM EST Hem/Onc Treatment Hematology Oncology [facility], [place] [address] [place] [address] [place], [facility] 4 Hem/Onc [facility] [address] [place], [place] [phone] Non-small cell lung cancer metastatic to bone [...] as of this encounter (statuses as of 10/24/2023) Medications Medication Sig Dispensed Refills Start Date [...] each treatment. 30 Tablet 3 09/30/2023 Active Amoxicillin-Pot Clavulanate 875-125 MG Oral Tablet (Augmentin) 1 Tablet in the morning and 1 Tablet before bedtime. 0 10/08/2023 Active Enoxaparin Sodium 80 MG/0.8ML Injection Solution Prefilled Syringe (Lovenox) Inject 80 mg under the skin in the morning and 80 mg before bedtime. 8 mL 2 10/11/2023 Active documented as of this encounter (statuses as of 10/24/2023) Active Problems Problem Noted Date Diagnosed Date [...] as of this encounter (statuses as of 10/24/2023) Resolved Problems Problem Noted Date Diagnosed Date Resolved Date Prediabetes 09/22/2021 08/09/2022 MSSA bacteremia 08/01/2021 08/07/2021 Sepsis 08/01/2021 08/07/2021 COPD, group B, by GOLD 2017 classification 05/08/2021 06/21/2021 Overview: Per COPD GOLD Classification Obstructive lung disease 04/10/2021 Overview: Per COPD GOLD Classification documented as of this encounter (statuses as of 10/24/2023) Immunizations Name Administration Dates Next Due COVID-19 mRNA, LNP-s, No Pre serve, 2-Dose Series (MaidSafe) 09/23/2021 documented as of this encounter Social [...] Care Team (Latest Contact Info) Description 10/30/2023 6:15 AM EST Anticoagulation Pharmacy Call Center WB [phone] [facility] [place] [address] [facility] 58 60 [facility] [place] [address] 10/30/2023 11:20 AM EST Office Visit Neurology [facility] [place] [address] [place] [address] Kathy Pryor PA-C [address] [place] [address] 11/01/2023 10:00 AM EST Rehab Services Speech Therapy, [address] [address] Lisa Hairston, RETAIL LOSS PREVENTION INVESTIGATOR [address] [place] [address] 11/05/2023 6:15 AM EST Hospital Encounter MRI, [address] [id number] Canceled (Clinician Appt Cancel Appt Not Needed) 11/15/2023 9:40 AM EST Office Visit [facility] [address] [place] [phone] Matthew Herrmann PA-C [address] [place] [address] 11/18/2023 7:30 AM EST NeuroDiagnostic Study Neurophysiology, [address] [id number] 1, Neurophys Tech [address], [place] [id number] 11/21/2023 7:20 AM EST Laboratory Laboratory Hem/Onc [facility], [place] [address] [place] [phone] [place], [facility] Med [address] [place], [place] [phone] 11/21/2023 8:00 AM EST Office Visit Hematology Oncology [facility], [place] [address] [place] [phone] Nicole Carrillo PA-C [facility] [address] [place], [place] [phone] 11/21/2023 9:00 AM EST Hem/Onc Treatment Hematology Oncology [facility], [place] [address] [address] [place], [place] [phone] [place], Chair 4 Hem/[place] [address] 12/04/2023 11:00 AM EST Office Visit Cardiology, [facility] [address] [place] [address] Santa Quintero CRNP [address] [place] [address] 12/12/2023 8:45 AM EST Nurse Only Hematology Oncology [facility], [place] [address] [place] [address] [place], Nurse Lab Hem/Onc [address] [place] [address] 12/12/2023 9:30 AM EST Office Visit Hematology Oncology [facility], [place] [address] [place] [phone] Kerri Foote MD [place] [address] 12/12/2023 10:30 AM EST Hem/Onc Treatment Hematology Oncology [facility], [place] [address] [place] [address] P[place], Chair 4 Hem/Onc [address] [place] [address] Scheduled Orders Name Type Priority Associated Diagnoses Orde r Schedule TSH WITH FREE T4 IF INDICATED Lab STAT Chemotherapy adverse reaction, initial encounter Chemotherapy induced nausea and vomiting Encounter for antineoplastic chemotherapy Malignant neoplasm of lower lobe, left bronchus or lung (HCC) 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) Expected: 10/24/2023 (Approximate), Expires: 04/21/2024 GLUCOSE Lab STAT Chemotherapy adverse reaction, initial encounter Chemotherapy induced nausea and vomiting Encounter for antineoplastic chemotherapy Malignant neoplasm of lower lobe, left bronchus or lung (HCC) 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) Expected: 10/24/2023 (Approximate), Expires: 04/21/2024 CBC WITH WBC DIFFERENTIAL Lab STAT Chemotherapy adverse reaction, initial encounter Chemotherapy induced nausea and vomiting Encounter for antineoplastic chemotherapy Malignant neoplasm of lower lobe, left bronchus or lung (HCC) 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) Expected: 10/24/2023 (Approximate), Expires: 04/21/2024 COMPREHENSIVE METABOLIC PANEL Lab STAT Chemotherapy adverse reaction, initial encounter Chemotherapy induced nausea and vomiting Encounter for antineoplastic chemotherapy Malignant neoplasm of lower lobe, left bronchus or lung (HCC) 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) Expected: 10/24/2023 (Approximate), Expires: 04/21/2024 Health Maintenance Due Date Last Done Comments [...] this encounter Medical Devices Implanted Type Area Amplifier Mechanic Device Identifier Shelf Expiration Date Model / Serial / Lot Power Port 8fr Sngl Lumen Plas - [id number] Implanted:Qty: 1 on 04/24/2021 at [facility] BARD : PERIPHERAL VASCULAR [id number] 02/24/2022 [id number] / / [id number] Port Implant W/8f Poly Cath - [id number] Implanted:Qty: 1 on 10/15/2023 at [facility] CR BARD : PERIPHERAL VASCULAR [id number] 03/27/2025 [id number] / / [id number] documented as of this encounter Results * (ABNORMAL) HEPARIN, LOW MOLECULAR WEIGHT (10/24/2023 9:50 AM EST) Heparin, Low Molecular Weight 1.10(H) <0.10 IU/mL 10/24/2023 10:25 AM EST LAB[facility]ATORY [facility] [place] Comment:Low molecular weight heparin's therapeutic range is 0.6 - 1.00 I.U./mL. Blood Venous blood specimen / Unknown Venipuncture / Unknown 10/24/2023 9:50 AM EST 10/24/2023 9:58 AM EST Kerri Foote MD LAB BLOOD ORDERAB LES LAB[facility]AT[facility] [place] [facility] [address] [place] [address] documented in this encounter Visit [...] ONCE PRN Other, Hypersensitivity Reaction, Starting on Ofe 10/24/23 at 0839, Until Sat10/25/23 at 0838, For 24 hours EPINEPHrine 1 MG/ML inj 0.3 mg 0.3 mg, Intramuscular, ONCE PRN Other, Hypersensitivity Reaction or Anaphylaxis, Starting on Ofe 10/24/23 at 0839, Until Sat10/25/23 at 0838, For 24 hours hEParin 100 UNIT/ML Lock Flush inj 500 Units 500 Units (5 mL), IV Lock, PRN Other, IV Flush, Starting on Ofe 10/24/23 at 0839, Until Sat10/25/23 at 0838, For 24 hours, Do not flush if lock, PICC, or central line not in place; IV infusing or unable to flush. Hydrocortisone Sod Suc (PF) (Solu-Cortef) inj 100 mg 100 mg, IV Push, ONCE PRN Other, Hypersensitivity Reaction, Starting on Sat10/24/23 at 0839, Until Sat10/25/23 at 0838, For 24 hours LORAzepam (Ativan) tab 0.5 mg 0.5 mg, Oral, ONCE PRN Anxiety, Nausea, Starting on Ofe 10/24/23 at 0945, Until Discontinued NSS infusion Intravenous, at 50 mL/hr, PRN, Starting on Sat10/24/23 at 0945, Until Discontinued, Maintenance line oxygen GAS Inhalation, OXYGEN, First dose on Ofe 10/24/23 at 0915, Until Discontinued, Device/Managed by: Low [...] Push, PRN Other, IV Flush, Starting on Sat10/24/23 at 0839, Until Sat10/25/23 at 0838, For 24 hours, Do not flush if lock, PICC, or central line not in place; IV infusing or unable to flush. Inactive Administered Medications - up to 3 [...] Given 10/24/2023 8:52 AM EST 20 mg ondansetron (Zofran) tab [...] 9:28 AM EST 200 mg 200 mL/hr Zoledronic Acid (Zometa) 4 mg in [...] the patient have Health Care Power of Trucker Hand? No Code Status History Code Status Date Activated Date Inactivated Comments Full Code 05/23/2021 12:21 PM 05/24/2021 9:38 PM This order reflects the patients wishes and were consensually agreed upon. Question Answer Comments Discussion of Advance Directives occurred with: Patient Healthcare Agents on File Name Relationship Healthcare Agent [facility] p Communication Rose Mary Brothers Spouse Health Care Agent Care Teams Vegetable Scullion Relationship Specialty Start Date End Date Matthew Herrmann PA-C [address] [place] [phone] PCP - General Physician Stranding Machine Operator 03/22/21 documented as of this encounter
--- OUTSIDE RECORDS SUMMARY | 2024-04-11 14:57 | External Medical Summary | Summary of Care ---
Author Name Unknown Organization [facility] Address [address] [place] [address] Phone [phone] Care Team Providers Care Home Care Scheduler Name Role Phone Matthew Herrmann PA-C Primary Care Provider [phone] Reason for Visit * Reason Comments Return Neuro * Evaluate & Treat - Unlimited Visits (Within 10 days (routine)) - Authorized Specialty Diagnoses / Procedures Referred By Yuli t Referred To Contact Neurology Diagnoses Acute CVA (cerebrovascular accident) (HCC) Matthew Herrmann PA-C [address] [place] [id number] Referral ID Status Reason Start Date Expiration Date Visits Requested Visits Authorized [id number] Authorized Specialty Services Required 3 [phone] Encounter Details Date Type Department Care Team (Late st Contact Info) Description 10/30/2023 11:20 AM EST Office Visit Neurology [facility] [address] [place] [address] Kathy Pryor PA-C [address] [place] [address] Other vascular headache*; Vertigo; Primary malignant neoplasm of left lower lobe of lung (HCC); Chemotherapy adverse reaction, initial encounter Allergies Active Allergy Reactions Criticality Noted Date [...] 10/11/2023 Active Azithromycin 250 MG Oral Tablet (Zithromax)Indication s:LRTI (lower respiratory tract infection) Take 2 tabs by mouth on the first day, then 1 tab daily on days two through five 6 Tablet 0 10/29/2023 11/03/2023 Active Amoxicillin-Pot Clavulanate 875-125 MG Oral Tablet [...] to bone Chemotherapy induced nausea and vomiting 06/25/2 021 Primary malignant neoplasm of left lower [...] mRNA, LNP-s, No Pre serve, 2-Dose Series (Tapgage) 09/23/2021 documented as of this encounter Social [...] Sign Reading Time Taken Comments Blood Pressure 124/82 10/30/2023 11:22 AM EST Pulse 90 10/30/2023 11:22 AM EST Temperature 37.2 C (99 F) 10/30/2023 11: 22 AM EST Respiratory Rate 18 10/30/2023 11:2 2 AM EST Oxygen Saturation 100% 10/30/2023 11: 22 AM EST Inhaled Oxygen Concentration - - Weight 102.4 kg (225 lb 12.8 oz) 2023 11:22 AM EST Height - - Body Mass Index 31.51 10/24/2023 8:01 AM EST documented in this [...] as of this encounter Progress Notes * Kathy Pryor PA-C - 10/30/2023 11:23 AM EST HISTORY & PHYSICAL EXAMINATION - NEUROLOGY Name: John Brothers Date: 10/30/2023 Time: 11:26 AM Referring Provider: aMtthew Herrmann PA-C Chief Complaint: Chief Complaint Patient presents with Return Neuro This is a 53 year old right handed gentleman returns today for follow up for headache and dizziness. HPI & Source of HPI The patient and family member was the historian, and they are reliable. He was last seen in our office by Angelina SAUNDERS 09/10/23. He was admitted to [facility] 08/20/23 for acute CVA likely related to hypercoagulable state secondary to malignancy, and recent COVID infection. found him standing trying to cook; had dropped food/water on floor. He had left facial droop; slurred speech, amnestic to the event. A brain MRI brain showed an acute right MCA territory infarct within right frontotemporal region. Adjacent smaller acute infarcts within the right frontal lobe. He was started on Eliquis but then it was discovered he has small infarcts which were likely embolic during his heart attack in April 2023. [facility] and a repeat MRI withthin cuts revealed small infarcts in the alejandro. He was switched from Eliquis to lovenox which he is still currently taking. He is no longer having the vertigo episodes and the vomiting has stopped andno longer having headaches. He did have a large nose bleed this am which was stopped with pressure and afrin his daughter had on hand. It was found that his cancer is spreading so his chemo therapy regime was changed. He lost his hair. He is now also being treated for pneumonia and is feeling fatigued. [facility] but at the time he was vomiting with any movement. So that was postponed. He is scheduled for an EEG but his wanders if this can be cancelled. Denies CP, N, V. I have reviewed the patient's medications and allergies, past medical, surgical, social and family history, updating these as appropriate. See Histories section of the electronic medical record for adisplay of this information. 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 yes Current Outpatient Medications Medication Sig Dispense Refill [...] 80 mg before bedtime. 8 mL 2 Azithromycin 250 MG Oral Tablet (Zithromax) Take 2 tabs by mouth on the first day, then 1 tab dailyon days two through five 6 Tablet 0 Amoxicillin-Pot Clavulanate 875-125 MG Oral Tablet (Augmentin) Take 1 Tablet by mouth in the morning and 1 Tablet before bedtime. Do all this for 10 days. 20 Tablet 0 ProAir HFA 108 (90 Base) MCG/ACT Inhalation Aerosol Solution Inhale 2 Puffs by mouth every 4 hours as needed for Wheezing or Shortness of Breath. 18 g 0 Nitroglycerin 0.4 MG Sublingual Tablet Sublingual (Nitrostat) Place 1 Tablet under the tongue once as needed. As directed for chest pain (Patient not taking: Reported on 10/29/2023) No current facility-administered medications for this visit. Review of patient's allergies indicates: Allergen Reactions Carboplatin Dyspnea, chest pain, hypoxia, sore throat, edema throat, flushing, mild hypotension Isosorbide Nitrate Other (Please comment) Headache Review of Systems: A total number of 10 systems were reviewed pertinent negative and positives not addressed in HPI are listed in the following review. Physical Exam: Constitutional: BP 124/82 (BP Site: Right Arm, BP Position: Sitting, BP Cuff Size: Regular) | Pulse90 | Temp 37.2 C (99 F) (Tympanic) | Resp 18 | Wt 102.4 kg (225 lb 12.8 oz) | SpO2 100% | BMI 31.51 kg/m | BSA 2.26 m , appearance nourished and ill appearing Ears, Nose, Mouth and Throat: mucous membranes moist, no injection and skin normal, eyes normal Cardiovascular: normal S-1 and S-2 and regular rate and rhythm Respiratory: course breath sounds Musculoskeletal: non pitting peripheral edema, mediport palpable right chest wall Skin: normal and intact Eyes: extraocular muscles intact (EOMI) left lateral vision cut NEUROLOGIC EXAMINATION: Mental status: Alert and interactive Oriented to person Speech fluent with no evidence of aphasia Cranial Nerves Normal findings for Cranial Nerves II - XII Gait/Stance: Posture abnormal: forward head and rounded shoulders. Gait normal: with steady with steps, base, and tandem gait. Motor: Negative for abnormal muscle bulk and abnormal muscle tone. Strength: generalized weakness and deconditioned LABORATORY: Recent labs reviewed Review of prior Studies: MRI brain-Late subacute/early chronic ischemic infarction involving the right MCA territory with associated laminar necrosis and mild volume loss. Multiple additional subacute to chronic infarcts scattered in both cerebral hemispheres. No significant mass effect, midline shift, or hydrocephalus.No convincing evidence of intracranial metastatic disease. Continued MRI surveillance is warranted. Negative MRI evaluation of the IAC's. MRI c spine-Sclerotic bony metastasis within the C7 vertebral body without associated pathologic collapse. No evidence of epidural or intradural extension of tumor. Multilevel degenerative changes causing varying degrees of neural foraminal narrowing without significant spinal canal stenosis. Impression: John Brothers is a 53 year old gentleman with a history of metastatic CA vertigo, strokes. His neurologic examination today reveals no new focal deficit. The history and examination are suggestive of diagnosis/problem list. Testing and Referrals ordered: none ICD-10-CM 1. Other vascular headache G44.1 2. Vertigo R42 3. Primary malignant neoplasm of left lower lobe of lung (HCC) C34.32 4. Chemotherapy adverse reaction, initial encounter T45.1X5A Return in 6 months or sooner if needed Ok to try holiday off topamax 25 mg (1 tab) hs if headaches reoccur can restart Follow up with ophthalmology, hem/onc/PCP as scheduled Keep well hydrated EEG ordered will hold off for now- symptoms have resolved Call with questions concerns. Medical Decision Making (determined by lowest of 2 of 3 elements): The medical decision making element of the number and complexity of problems addressed included at least 1 or more chronic illnesses with exacerbation, progression, or side effects of treatment (level 4). The medical decision making element of risk of complications, morbidity, and mortality of patient management is moderate (level 4) due to prescription drug management (moderate risk). The medical decision making element of the amount and complexity of data reviewed and analyzed included an independent interpretation of a test (level 4 at least). When 2 of 3 reach level 4, then this element is considered extensive (level 5). I personally spent a total of 30 minutes. This time was for a new office or established visit and was on the same calendar day. Education / Consultation - Topics covered as I spent 20 minutes, which is greater than 50% of this visit, counseling the patient on: Diagnostic Results Prognosis Importance of compliance with chosen treatment options Risk factor reductions Patient and family education Consulted with physician: Mehrdad Haq DO was available for direct supervision. Copy of note sent to PCP and Referring Provider. Total time of visit: 30 minutes. Kathy Pryor PA-C Neurology [address] [place] [address] 10/30/2023 11:26 AM documented in this encounter Nursing Notes * Lynette Bennett LPN - 10/30/2023 11:21 AM EST Patient verified identity by spelling of last name and date. Chief Complaint Patient presents with Return Neuro documented in this encounter Plan of Treatment Upcoming Encounters Date Type Department Care Team (Latest Contact Info) Description 11/05/2023 6:15 AM EST Hospital Encounter MRI, [place] [address] [place] [address] Canceled (Clinician Appt Cancel Appt Not Needed) 11/06/2023 6:15 AM EST Anticoagulation Pharmacy Call Center [address] [place] [address] [facility], [facility] [address] [place] [address] 11/21/2023 7:20 AM EST Laboratory Laboratory Hem/Onc [facility], [address] [phone] [place], Lab Med4 [facility] [address] [place], [place] [phone] 11/21/2023 8:00 AM EST Office Visit Hematology Oncology [facility], [place] [address] [place] [phone] Nicole Carrillo PA-C [address] [place], [place] [phone] 11/21/2023 9:00 AM EST Hem/Onc Treatment Hematology Oncology [facility], [place] [address] [place] [address] [place], Chair 4 Hem/Onc [address] [place] [address] 12/04/2023 11:00 AM EST Office Visit Cardiology, [facility] [address] [place] [id number] [place] Quintero CRNP [address] [place] [id number] 12/12/2023 8:45 AM EST Nurse Only Hematology Oncology [facility], [address] [address] [place], Nurse Lab Hem/Onc [address] [place] [address] 12/12/2023 9:30 AM EST Office Visit Hematology Oncology [facility], [address] [phone] Kerri Foote MD [facility] [address] [place], [place] [phone] 12/12/2023 10:30 AM EST Hem/Onc Treatment Hematology Oncology [facility], [address] [address] [place], Chair 4 Hem/Onc [address] [place] [address] 05/06/2024 9:20 AM EDT Office Visit [facility] [address] [facility] [place] [address] Kathy Pryor PA-C [address] [place] [address] Scheduled Referrals Name Type Priority Associated Diagnoses Orde r Schedule NEUROLOGY REFERRAL OP Referral Within 10 days (routine) Acute CVA (cerebrovascular accident) (HCC) Ordered: 10/24/2023 Health Maintenance Due Date [...] this encounter Medical Devices Implanted Type Area Operater Device Identifier Shelf Expiration Date Model / Serial / Lot Power Port 8fr Sngl Lumen Plas - [id number] Implanted:Qty: 1 on 04/24/2021 at [facility] : PERIPHERAL VASCULAR [id number] 02/24/2022 [id number] / / [id number] Port Implant W/8f Poly Cath - [id number] Implanted:Qty: 1 on 10/15/2023 at [facility] : PERIPHERAL VASCULAR [id number] 03/27/2025 [id number] / / [id number] documented as of this encounter Visit Diagnoses Diagnosis Other vascular headache- Primary Vertigo Dizziness and giddiness Primary malignant neoplasm of left lower lobe of lung (HCC) Malignant neoplasm of lower lobe, bronchus, or lung Chemotherapy adverse reaction, initial encounter documented in this encounter Additional Health Concerns [...] the patient have Health Care Power of Pound Attendant? No Code Status History Code Status Date Activated Date Inactivated Comments Full Code 05/23/2021 12:21 PM 05/24/2021 9:38 PM This order reflects the patients wishes and were consensually agreed upon. Question Answer Comments Discussion of Advance Directives occurred with: Patient Healthcare Agents on File Name Relationship Healthcare Agent [facility] Communication Rose Mary Brothers Spouse Health Care Agent Care Teams Home Care Scheduler Relationship Specialty Start Date End Date Matthew Herrmann PA-C [address] [place] [id number] PCP - General Physician Toll Repairer Central Office 03/22/21 documented as of this encounter"
--- OUTSIDE RECORDS SUMMARY | 2024-04-11 14:57 | External Medical Summary ---
Author Name Unknown Address Unknown Organization K01:[facility] - [address] [facility] [address] Laboratory Report Ordering Provider Test Date Status ANDERSON,MACPINEDA 11/06/2023 12:26:53 Final Observation Date Value Abnormality Reference (Units ) Status HbA1C 11/06/2023 12:26:53 6.2 Above high normal 4. 0-5.6 (%) Final The use of HbA1c to monitor glycemic status is based on normal hemoglobin and HbA composition. This test should not be used in patients with abnormal hemoglobin that affects the half life of the red blood cell or the in vivo glycation rates. Glucose, estimated average 11/06/2023 12:26:53 131 Above high normal <126 (mg/dL) Marvin graham Performing Location [facility] - [address] [facility] [address]
--- OUTSIDE RECORDS SUMMARY | 2024-04-11 14:57 | External Medical Summary ---
Author Name Unknown Address Unknown Organization [id number]:[facility] - [address] [facility] [place] [id number] Laboratory Report Ordering Provider Test Date Status PETRA ANDERSON 10/29/2023 16:05:40 Final Observation Date Value Abnormality Reference (Units ) Status Adenovirus DNA [Presence] in Nasopharynx by ANDRIA with non-probe detection 10/29/2023 16:05:40 Negative Negative Final Human coronavirus 229E RNA [Presence] in Nasopharynx by ANDRIA with non-probe detection 10/29/2023 16:05:40 Negative Negative Final Human coronavirus HKU1 RNA [Presence] in Nasopharynx by ANDRIA with non-probe detection 10/29/2023 16:05:40 Negative Negative Final Human coronavirus NL63 RNA [Presence] in Nasopharynx by ANDRIA with non-probe detection 10/29/2023 16:05:40 Negative Negative Final Human coronavirus OC43 RNA [Presence] in Nasopharynx by ANDRIA with non-probe detection 10/29/2023 16:05:40 Negative Negative Final SARS-CoV-2 (COVID-19) RNA [Presence] in Nasopharynx by ANDRIA with non-probe detection 10/29/2023 16:05:40 Negative Negative Final Human metapneumovirus RNA [Presence] in Nasopharynx by ANDRIA with non-probe detection 10/29/2023 16:05:40 Negative Negative Final Rhinovirus+Enterovirus RNA [Presence] in Nasopharynx by ANDRIA with non-probe detection 10/29/2023 16:05:40 Negative Negative Final Influenza virus A RNA [Presence] in Nasopharynx by ANDRIA with non-probe detection 10/29/2023 16:05:40 Negative Negative Final Influenza virus B RNA [Presence] in Nasopharynx by ANDRIA with non-probe detection 10/29/2023 16:05:40 Negative Negative Final Parainfluenza virus 1 RNA [Presence] in Nasopharynx by ANDRIA with non-probe detection 10/29/2023 16:05:40 Negative Negative Final Parainfluenza virus 2 RNA [Presence] in Nasopharynx by ANDRIA with non-probe detection 10/29/2023 16:05:40 Negative Negative Final Parainfluenza virus 3 RNA [Presence] in Nasopharynx by ANDRIA with non-probe detection 10/29/2023 16:05:40 Negative Negative Final Parainfluenza virus 4 RNA [Presence] in Nasopharynx by ANDRIA with non-probe detection 10/29/2023 16:05:40 Negative Negative Final Respiratory syncytial virus RNA [Presence] in Nasopharynx by ANDRIA with non-probe detection 10/29/2023 16:05:40 Negative Negative Final Bordetella pertussis.pertussis toxin promoter region [Presence] in Nasopharynx by NADRIA with non-probe detection 10/29/2023 16:05:40 Negative Negative Final Chlamydophila pneumoniae DNA [Presence] in Nasopharynx by ANDRIA with non-probe detection 10/29/2023 16:05:40 Negative Negative Final Mycoplasma pneumoniae DNA [Presence] in Nasopharynx by ANDRIA with non-probe detection 10/29/2023 16:05:40 Negative Negative Final Bordetella parapertussis [id number] DNA [Presence] in Nasopharynx by ANDRIA with non-probe detection 10/29/2023 16:05:40 Negative Negative Final
The primers that detect Rhinovirus may cross react with some Enterorviruses. The validation of bronchial specimens, tracheal aspirates, and throats for this assay was developed and performance characteristics determined by [employer]. The validation of alternate specimen types has not been cleared or approved by the U.S. Food and Drug Administration (FDA). It has been determined that such clearance or approval is not necessary. Performing Location [facility] [place] [address] [address] [facility] [place] [address]
--- OUTSIDE RECORDS SUMMARY | 2024-04-11 14:57 | External Medical Summary | Summary of Care ---
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) Matthew Herrmann PA-C [address] [place] [address] Referral ID Status Reason Start Date Expiration Date Visits Requested Visits Authorized [id number] Authorized Specialty Services Required 06/11/2023 06/11/[phone] Encounter Details Date Type Department Care Team (Latest Contact Info) Description 10/24/2023 9:00 AM EST Hem/Onc Treatment Hematology Oncology [facility] [place] [address] [place] [address] [place], [facility] 4 Hem/Onc [facility] [address] [place], [place] [phone] Non-small cell lung cancer metastatic to bone [...] mRNA, LNP-s, No Pre serve, 2-Dose Series (Cinepapaya) 09/23/2021 documented as of this encounter Social [...] Call Center WB [phone] Public [place] [address] [facility] 58 60 [facility] [place] [address] 10/30/2023 11:20 AM EST Office Visit Neurology [facility] [address] [place] [address] Kathy Pryor PA-C [address] [place] [address] 11/01/2023 10:00 AM EST Rehab Services Speech Therapy, [address] [address] Lisa Hairston, RESIDENTIAL BUILDER [address] [place] [address] 11/05/2023 6:15 AM EST Hospital Encounter MRI, [address] [id number] Canceled (Clinician Appt Cancel Appt Not Needed) 11/15/2023 9:40 [address] EST Office [address] [facility] [address] [place] [phone] Matthew Herrmann PA-C [address] [place] [address] 11/18/2023 7:30 AM EST NeuroDiagnostic Study Neurophysiology, [address] [id number] 1, Neurophys Tech [address] [place], [place] [phone] 11/21/2023 7:20 AM EST Laboratory Laboratory Hem/Onc [facility], [place] [address] [place] [phone] [place], [facility] [address] [place], [place] [phone] 11/21/2023 8:00 AM EST Office Visit Hematology Oncology [facility], [place] [address] [place] [phone] Nicole Carrillo PA-C [facility] [address] [place], [place] [phone] 11/21/2023 9:00 AM EST Hem/Onc Treatment Hematology Oncology [facility], [place] [address] [place], [place] [phone] [place], Chair 4 Hem/Onc [facility] [place] [address] 12/04/2023 11:00 AM EST Office Visit Cardiology, [facility] [address] [place] [address] Santa Quintero CRNP [address] [place] [address] 12/12/2023 8:45 AM EST Nurse Only Hematology Oncology [facility], [place] [address] [place] [address] [place], Nurse Lab Hem/Onc [address] [place] [address] 12/12/2023 9:30 AM EST Office Visit Hematology Oncology [facility], [place] [address] [place] [phone] Kerri Foote MD [facility] [place] [address] 12/12/2023 10:30 AM EST Hem/Onc Treatment Hematology Oncology [facility], [place] [address] [place] [address] [place], Chair 4 Hem/Onc [address] [place] [address] Scheduled Orders Name Type Priority Associated Diagnoses [...] this encounter Medical Devices Implanted Type Area Ash Kier Boiler Device Identifier Shelf Expiration Date Model / Serial / Lot Power Port 8fr Sngl Lumen Plas - [id number] Implanted:Qty: 1 on 04/24/2021 at [facility] CR BARD : PERIPHERAL VASCULAR [id number] 02/24/2022 [id number] / / [id number] Port Implant W/8f Poly Cath - [id number] Implanted:Qty: 1 on 10/15/2023 at [facility] CR BARD : PERIPHERAL VASCULAR [id number] 03/27/2025 [id number] / / [id number] documented as of this encounter Results * (ABNORMAL) HEPARIN, LOW MOLECULAR WEIGHT (10/24/2023 9:50 AM EST) Heparin, Low Molecular Weight 1.10(H) <0.10 IU/mL 10/24/2023 10:25 AM EST LABORATORY [facility] Comment:Low molecular weight heparin's therapeutic range is 0.6 - 1.00 I.U./mL. Blood Venous blood specimen / Unknown Venipuncture / Unknown 10/24/2023 9:50 AM EST 10/24/2023 9:58 AM EST Kerri Foote MD LAB BLOOD ORDERAB LES LAB[facility]ATORY [facility] [address] [place] [address] documented in this encounter Visit [...] Given 10/24/2023 1:02 PM EST 500 Units Hydrocortisone Sod Suc (PF) (Solu-Cortef) inj 100 mg 100 mg, IV Push, ONCE PRN Other, Hypersensitivity Reaction, Starting on Ofe 10/24/23 at 0839, Until Sat10/25/23 at 0838, For 24 hours LORAzepam (Ativan) tab 0.5 mg 0.5 mg, Oral, ONCE PRN Anxiety, Nausea, Starting on Sat10/24/23 at 0945, Until Discontinued NSS infusion Intravenous, at 50 mL/hr, PRN, Starting on Ofe 10/24/23 at 0945, Until Discontinued, Maintenance line oxygen [...] Given 10/24/2023 1:02 PM EST 10 mL Inactive Administered Medications [...] the patient have Health Care Power of Camp Dining Room Attendant? No Code Status History Code Status Date Activated Date Inactivated Comments Full Code 05/23/2021 12:21 PM 05/24/2021 9:38 PM This order reflects the patients wishes and were consensually agreed upon. Question Answer Comments Discussion of Advance Directives occurred with: Patient Healthcare Agents on File Name Relationship Healthcare Agent [employer] [facility] Communication Rose Mary Brothers Spouse Health Care Agent [id number] (Mobile) Care Teams Hematology Nurse Relationship Specialty Start Date End Date Matthew Herrmann PA-C [address] [place] [phone] PCP - General Physician Centrifugal Station Operator 03/22/21 documented as of this encounter
--- OUTSIDE RECORDS SUMMARY | 2024-04-11 14:57 | External Medical Summary | Summary of Care ---
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) Matthew Herrmann PA-C [address] [place] [address] Referral ID Status Reason Start Date Expiration Date Visits Requested Visits Authorized [id number] Authorized Specialty Services Required 06/11/2023 06/11/[phone] Encounter Details Date Type Department Care Team (Latest Contact Info) Description 09/12/2023 10:30 AM EST Hem/Onc Treatment Hematology Oncology [facility], [place] [address] [place] [address] [place], [facility] 10 Hem/Onc [facility] [address] [place], [place] [phone] Encounter for antineoplastic chemotherapy*; 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); Chemotherapy induced nausea and vomiting; Chemotherapy adverse reaction, initial encounter; Malignant neoplasm of lower lobe, left bronchus or lung (HCC); Primary malignant neoplasm of left lower lobe of lung (HCC) Allergies Active Allergy Reactions Criticality Noted Date Comments Carboplatin High 11/14/2021 Dyspnea, chest pain, hypoxia, sore throat, edema throat, flushing, mild hypotension Isosorbide Nitrate Other (Please comment) 07/22/2023 Headache documented as of this encounter (statuses as of 11/02/2023) Medications Medication Sig Dispensed Refills Start Date End Date Status Vitamin E 1000 UNIT Oral Capsule Take 1 Capsule by mouth in the morning. 0 Active Ondansetron HCl 8 MG Oral TabletIndications :Chemotherapy induced nausea and vomiting Take 1 [...] Active Atorvastatin Calcium 40 MG Oral Tablet (Lipitor)Indicati ons:Acute CVA (cerebrovascular accident) (HCC) Take 1 Tablet by mouth daily. 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 90 Tablet 3 09/03/2023 Active Topiramate 25 MG Oral Tablet (Topamax) Take 1 tablet nightly x 2 weeks then increase to 2 tablets nightly. 60 Tablet 5 09/10/2023 Active Prochlorperazine Maleate 10 MG Oral Tablet (Compazine)Indica tions:Chemotherap y induced nausea and vomiting Take 1 Tablet (10 mg) by mouth every 6 hours as needed for Nausea. 30 Tablet 3 09/14/2022 09/20/2023 Discontinued (Refill) Rivaroxaban 20 MG Oral Tablet (Xarelto)Indicati ons:History of pulmonary embolism,Non-smal l cell lung cancer metastatic to bone (HCC) Take 1 Tablet by mouth daily with dinner. 90 Tablet 1 08/22/2023 10/11/2023 Discontinued (Medication List Clean Up) documented as of this encounter (statuses as of 11/02/2023) Active Problems Problem Noted Date Diagnosed Date Malignant neoplasm of lower lobe, left bronchus [...] as of this encounter (statuses as of 11/02/2023) Resolved Problems Problem Noted Date Diagnosed Date Resolved Date Prediabetes 09/22/2021 08/09/2022 MSSA bacteremia 08/01/2021 08/07/2021 Sepsis 08/01/2021 08/07/2021 COPD, group B, by GOLD 2017 classification 05/08/2021 06/21/2021 Overview: Per COPD GOLD Classification Obstructive lung disease 04/10/2021 Overview: Per COPD GOLD Classification documented as of this encounter (statuses as of 11/02/2023) Immunizations Name Administration Dates Next Due COVID-19 mRNA, LNP-s, No Pre serve, 2-Dose Series (Food Runner) 09/23/2021 documented as of this encounter Social [...] as of this encounter Nursing Notes * Zandra Arauz, RN - 09/12/2023 10:38 AM EST Chair 5 (old treatment room) Safety and Risk for Injury Patient will remain free from injury. Ensure appropriate safety devices are available. Provide and maintain safe environment. Goals: No falls Possible barriers to meeting goals: IV pole, weakness, recent stroke Stability of the patient: Moderately stable - [...] effects during treatment. documented in this encounter Plan of Treatment Upcoming Encounters Date Type Department Care Team (Latest Contact Info) Description 11/05/2023 6:15 AM EST Hospital Encounter MRI, [place] [address] [place] [address] Canceled (Clinician Appt Cancel Appt Not Needed) 11/06/2023 6:15 AM EST Anticoagulation Pharmacy Call Center WB 58-[address] [place] [address] [facility], [facility] 58 [address] [place] [address] 11/21/2023 7:20 AM EST Laboratory Laboratory Hem/Onc [facility], [place] [address] [place] [phone] [place], [facility] Med[facility] [address] [place] [address] 11/21/2023 8:00 AM EST Office Visit Hematology Oncology [facility], [address] [phone] Nicole Carrillo PA-C [address] [place], [place] [phone] 11/21/2023 9:00 AM EST Hem/Onc Treatment Hematology Oncology [facility], [place] [address] [place] [address] [place], Chair 4 Hem/Onc [address] [place] [phone] 12/04/2023 11:00 AM EST Office Visit Cardiology, [facility] [address] [place] [address] Santa Quintero CRNP [address] [place] [address] 12/12/2023 8:45 AM EST Nurse Only Hematology Oncology [facility], [address] [address] [place], Nurse Lab Hem/Onc [address] [place] [address] 12/12/2023 9:30 AM EST Office Visit Hematology Oncology [facility], [place] [address] [place] [address] Kerri Foote MD [facility] [address] [place], [place] [phone] 12/12/2023 10:30 AM EST Hem/Onc Treatment Hematology Oncology [facility], [place] [address] [place] [address] [place], Chair 4 Hem/Onc [address] [place] [address] 05/06/2024 9:20 AM EDT Office Visit Neurology [facility] 200 [facility] [place] [address] Kathy Pryor PA-C [address] [facility] [place] [address] Health Maintenance Due Date Last Done Comments [...] this encounter Medical Devices Implanted Type Area Zyglo Technician Device Identifier Shelf Expiration Date Model / Serial / Lot Power Port 8fr Sngl Lumen Plas - [id number] Implanted:Qty: 1 on 04/24/[address] 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) Chemotherapy induced nausea and vomiting Nausea with vomiting Chemotherapy adverse reaction, initial encounter Malignant neoplasm of lower lobe, left bronchus or lung (HCC) Primary malignant neoplasm of left lower lobe of lung (HCC) Malignant neoplasm of lower lobe, bronchus, or lung documented in this encounter Administered Medications Inactive Administered Medications - up to 3 most recent administrations Medication Order MAR Action Action Date Dose Rate Site NSS infusion 500 mL, Intravenous, at 50 mL/hr, CONTINUOUS, Starting on Sat09/12/23 at 1115, Until Sat09/12/23 at 1524 Start Infusion 09/12/2023 10:22 AM EST 500 mL 50 mL/hr ondansetron (Zofran) tab 8 mg 8 mg, Oral, ONCE, On Sat09/12/23 at 1115, For 1 dose, Give 30 minutes prior to chemotherapy. Given 09/12/2023 10:22 AM EST 8 mg PEMEtrexed Disodium (Alimta) 1,000 mg in NSS 100 mL infusion 1,000 mg (rounded from 1,045 mg = 500 mg/m2 2.09 m2 Treatment Plan BSA from Recorded weight), IV Piggyback, ONCE, 1 dose, On Ofe 09/12/23 at 1145, Administer over 10 Minutes Start Infusion 09/12/2023 10:50 AM EST 1,000 mg 600 mL/hr sodium chloride 0.9 % flush central line 10 mL 10 mL, IV Push, PRN Other, IV Flush, Starting on Ofe 09/12/23 at 1008, Until Ofe 09/12/23 at 1524, For 24 hours, Do not flush if lock, PICC, or central line not in place; IV infusing or unable to flush. Given 09/12/2023 10:22 AM EST 10 mL vitamin b-12 (Cyanocobalamin) inj 1,000 mcg 1,000 mcg, Intramuscular, ONCE, On Ofe 09/12/23 at 1100, For 1 dose Given 09/12/2023 10:22 AM EST 1,000 mcg Arm Left Upper Zoledronic Acid (Zometa) 4 mg in 100 mL PREMIX ivpb 4 mg, IV Piggyback, ONCE, 1 dose, On Ofe 09/12/23 at 1045, Administer over 15 Minutes Start Infusion 09/12/2023 10:31 AM EST 4 mg 400 mL/hr documented [...] the patient have Health Care Power of Agribusiness Professor? No Code Status History Code Status Date Activated Date Inactivated Comments Full Code 05/23/2021 12:21 PM 05/24/2021 9:38 PM This order reflects the patients wishes and were consensually agreed upon. Question Answer Comments Discussion of Advance Directives occurred with: Patient Healthcare Agents on File Name Relationship Healthcare Agent [facility] Communication Rose Mary Brothers Spouse Health Care Agent Care Teams Engine Installer Relationship Specialty Start Date End Date Matthew Herrmann PA-C [address] [place] [phone] PCP - General Physician Plating Machine Operator 03/22/21 documented as of this encounter
--- OUTSIDE RECORDS SUMMARY | 2024-04-11 14:57 | External Medical Summary | Summary of Care ---
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) Matthew Herrmann PA-C [address] [place] [address] Referral ID Status Reason Start Date Expiration Date Visits Requested Visits Authorized [id number] Authorized Specialty Services Required 06/11/2023 06/11/[phone] Encounter Details Date Type Department Care Team (Latest Contact Info) Description 10/24/2023 9:00 AM EST Hem/Onc Treatment Hematology Oncology [facility], [place] [address] [place] [address] [place], [facility] 4 Hem/Onc [facility] [address] [place], [place] [phone] Non-small cell lung cancer metastatic to bone [...] mRNA, LNP-s, No Pre serve, 2-Dose Series ([place]al[place]) 09/23/2021 documented as of this encounter Social [...] Call Center WB 58-60 Public [place] [address] [facility] 58 60 [facility] [place] [address] 10/30/2023 11:20 AM EST Office Visit Neurology [facility] [place] [address] [place] [address] Kathy Pryor PA-C [address] [place] [address] 11/01/2023 10:00 AM EST Rehab Services Speech Therapy, [address] [address] Lisa Hairston, RADIO COMMUNICATION COORDINATOR [address] [place] [address] 11/05/2023 6:15 AM EST Hospital Encounter MRI, [address] [id number] Canceled (Clinician Appt Cancel Appt Not Needed) 11/15/2023 9:40 AM EST Office Visit [facility] [address] [place] [phone] Matthew Herrmann PA-C [address] [place] [address] 11/18/2023 7:30 AM EST NeuroDiagnostic Study Neurophysiology, [address] [id number] 1, Neurophys Tech [address] [place], [place] [phone] 11/21/2023 7:20 AM EST Laboratory Laboratory Hem/Onc [facility], [place] [address] [place] [phone] [place], [facility] Med [address] [place], [place] [phone] 11/21/2023 8:00 AM EST Office Visit Hematology Oncology [facility], [place] [address] [place] [phone] Nicole Carrillo PA-C [facility] [address] [place], [place] [phone] 11/21/2023 9:00 AM EST Hem/Onc Treatment Hematology Oncology [facility], [place] [address] [place], [place] [phone] [place], Chair 4 Hem/Onc [facility] [place] [address] 12/04/2023 11:00 AM EST Office Visit Cardiology, [facility] [address] [place] [address] Santa Quintero CRNP [address] [place] [address] 12/12/2023 8:45 AM EST Nurse Only Hematology Oncology [facility], [place] [address] [place] [address] [place], Nurse Lab Hem/Onc [address] [place] [address] 12/12/2023 9:30 AM EST Office Visit Hematology Oncology [facility], [place] [address] [place] [phone] Kerri Foote MD [facility] [place] [address] 12/12/2023 10:30 AM EST Hem/Onc Treatment Hematology Oncology [facility], [place] [address] [place] [address] [place], Chair 4 Hem/Onc [address] [place] [address] Scheduled Orders Name Type Priority Associated Diagnoses [...] this encounter Medical Devices Implanted Type Area Hook And Eye Attacher Device Identifier Shelf Expiration Date Model / Serial / Lot Power Port 8fr Sngl Lumen Plas - [id number] Implanted:Qty: 1 on 04/24/2021 at [facility] CR BARD : PERIPHERAL VASCULAR [id number] 02/24/2022 [id number] / / [id number] Port Implant W/8f Poly Cath - [id number] Implanted:Qty: 1 on 10/15/2023 at [facility] CR BARD : PERIPHERAL VASCULAR [id number] 03/27/2025 [id number] / / [id number] documented as of this encounter Results * (ABNORMAL) HEPARIN, LOW MOLECULAR WEIGHT (10/24/2023 9:50 AM EST) Heparin, Low Molecular Weight 1.10(H) <0.10 IU/mL 10/24/2023 10:25 AM EST LABORATORY [facility] Comment:Low molecular weight heparin's therapeutic range is 0.6 - 1.00 I.U./mL. Blood Venous blood specimen / Unknown Venipuncture / Unknown 10/24/2023 9:50 AM EST 10/24/2023 9:58 AM EST Kerri Foote MD LAB BLOOD ORDERAB LES [facility]AT[facility] [address] [place] [address] documented in this encounter Visit [...] the patient have Health Care Power of Environmental Associate? No Code Status History Code Status Date Activated Date Inactivated Comments Full Code 05/23/2021 12:21 PM 05/24/2021 9:38 PM This order reflects the patients wishes and were consensually agreed upon. Question Answer Comments Discussion of Advance Directives occurred with: Patient Healthcare Agents on File Name Relationship [facility] Communication Rose Mary Brothers Spouse Health Care Agent Care Teams Chip Applying Machine Tender Relationship Specialty Start Date End Date Matthew Herrmann PA-C [address] [place] [phone] PCP - General Physician Plant Anatomist 03/22/21 documented as of this encounter
--- OUTSIDE RECORDS SUMMARY | 2024-04-11 14:57 | External Medical Summary ---
Author Name Unknown Address Unknown Organization K01:LABORATORY [facility] - [address] [place] [address] Laboratory Report Ordering Provider Test Date Status CAIN STEELEBRITTANY 11/06/2023 12:26:53 Final Observation Date Value Abnormality Reference (Units ) Status Phosphate 11/06/2023 12:26:53 3.1 2.5-4.8 (m g/dL) Final Performing Location LABORATORY [facility] - [address] [place] [address]
--- OUTSIDE RECORDS SUMMARY | 2024-04-11 14:57 | External Medical Summary | Summary of Care ---
Author Name Unknown Organization [facility] Address [address] [place] [address] Phone [phone] Care Team Providers Care Steam Clean Machine Operator Name Role Phone Matthew Herrmann PA-C Primary Care Provider +1 -[phone] Reason for Visit * Evaluate & Treat - Unlimited Visits (Within 30 days (routine)) - Authorized Specialty Diagnoses / Procedures Referred By Yuli seay Referred To Contact Hematology/Oncology / Hematology Oncology Diagnoses 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) Matthew Herrmann PA-C [address] [place] [address] Referral ID Status Reason Start Date Expiration Date Visits Requested Visits Authorized [id number] Authorized Specialty Services Required 06/11/2023 06/11/[phone] Encounter Details Date Type Department Care Team (Latest Contact Info) Description 10/24/2023 9:00 AM EST Hem/Onc Treatment Hematology Oncology [facility], [place] [address] [place] [address] [place], [facility] 4 Hem/Onc [facility] [address] [place], [place] [phone] Non-small cell lung cancer metastatic to bone [...] mRNA, LNP-s, No Pre serve, 2-Dose Series ([employer]) 09/23/2021 documented as of this encounter Social [...] Call Center WB 58-60 Public [place] [address] [facility] 58 60 [facility] [place] [address] 10/30/2023 11:20 AM EST Office Visit Neurology [facility] [address] [place] [address] Kathy Pryor PA-C [address] [place] [address] 11/01/2023 10:00 AM EST Rehab Services Speech Therapy, [address] [address] Lisa Hairston, ENVIRONMENTAL LAWYER [address] [place] [address] 11/05/2023 6:15 AM EST Hospital Encounter MRI, [address] [phone] Canceled (Clinician Appt Cancel Appt Not Needed) 11/15/2023 9:40 AM EST Office Visit [facility] [address] [place] [phone] Matthew Herrmann PA-C [address] [place] [address] 11/18/2023 7:30 AM EST NeuroDiagnostic Study Neurophysiology, [address] [id number] 1, Neurophys Tech [address] [place], [place] [phone] 11/21/2023 7:20 AM EST Laboratory Laboratory Hem/Onc [facility], [place] [address] [place] [phone] [place], [facility] Med [address] [place], [place] [phone] 11/21/2023 8:00 AM EST Office Visit Hematology Oncology [facility], [place] [address] [place] [phone] Nicole Carrillo PA-C [facility] [address] [place], [place] [phone] 11/21/2023 9:00 AM EST Hem/Onc Treatment Hematology Oncology [facility], [place] [address] [place], [place] [phone] [place], Chair 4 Hem/Onc [facility] [place] [address] 12/04/2023 11:00 AM EST Office Visit Cardiology, [facility] [address] [place] [address] Santa Quintero CRNP [address] [place] [address] 12/12/2023 8:45 AM EST Nurse Only Hematology Oncology [facility], [place] [address] [place] [address] [place], Nurse Lab Hem/Onc [address] [place] [address] 12/12/2023 9:30 AM EST Office Visit Hematology Oncology [facility], [place] [address] [place] [phone] Kerri Foote MD [facility] [place] [address] 12/12/2023 10:30 AM EST Hem/Onc Treatment Hematology Oncology [facility], [place] [address] [place] [address] [place], Chair 4 Hem/Onc [address] [place] [address] Scheduled Orders Name Type Priority Associated Diagnoses [...] this encounter Medical Devices Implanted Type Area It Investment/Portfolio Manager Device Identifier Shelf Expiration Date Model / Serial / Lot Power Port 8fr Sngl Lumen Plas - [id number] Implanted:Qty: 1 on 04/24/2021 at [facility] CR BARD : PERIPHERAL VASCULAR [id number] 02/24/2022 [id number] / / [id number] Port Implant W/8f Poly Cath - [id number] Implanted:Qty: 1 on 10/15/2023 at [facility] CR BARD : PERIPHERAL VASCULAR [id number] 03/27/2025 [id number] / / [id number] documented as of this encounter Results * (ABNORMAL) HEPARIN, LOW MOLECULAR WEIGHT (10/24/2023 9:50 AM EST) Heparin, Low Molecular Weight 1.10(H) <0.10 IU/mL 10/24/2023 10:[address] [facility] Comment:Low molecular weight heparin's therapeutic range is 0.6 - 1.00 I.U./mL. Blood Venous blood specimen / Unknown Venipuncture / Unknown 10/24/2023 9:50 AM EST 10/24/2023 9:58 AM EST Kerri Foote MD LAB BLOOD ORDERAB LES [facility] [address] [place] [address] documented in this encounter Visit [...] the patient have Health Care Power of Altitude Chamber Technician? No Code Status History Code Status Date Activated Date Inactivated Comments Full Code 05/23/2021 12:21 PM 05/24/2021 9:38 PM This order reflects the patients wishes and were consensually agreed upon. Question Answer Comments Discussion of Advance Directives occurred with: Patient Healthcare Agents on File Name Relationship Healthcare Agent [place] [facility] Communication Rose Mary Brothers Spouse Health Care Agent [phone] (Mobile) Care Teams Steam Clean Machine Operator Relationship Specialty Start Date End Date Matthew Herrmann PA-C [address] [place] [phone] PCP - General Physician Tour Conductor 03/22/21 documented as of this encounter
--- OUTSIDE RECORDS SUMMARY | 2024-04-11 14:57 | External Medical Summary | Summary of Care ---
Author Name Unknown Organization [facility] Address [address] [place] [address] Phone [phone] Care Team Providers Care Industrial Eng Name Role Phone Matthew Herrmann PA-C Primary Care Provider [phone] -[phone] Reason for Visit * Evaluate & Treat - Unlimited Visits (Within 30 days (routine)) - Authorized Specialty Diagnoses / Procedures Referred By Yuli seay Referred To Contact Hematology/Oncology / Hematology Oncology Diagnoses 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) Matthew Herrmann PA-C [address] [place] [address] Referral ID Status Reason Start Date Expiration Date Visits Requested Visits Authorized [id number] Authorized Specialty Services Required 06/11/2023 06/11/[phone] Encounter Details Date Type Department Care Team (Latest Contact Info) Description 09/12/2023 10:30 AM EST Hem/Onc Treatment Hematology Oncology [facility], [place] [address] [place] [address] [place], [facility] 10 Hem/Onc [facility] [address] [place], [place] [phone] Encounter for antineoplastic chemotherapy*; Non-small cell lung [...] mRNA, LNP-s, No Pre serve, 2-Dose Series (Showpad) 09/23/2021 documented as of this encounter Social [...] 11/05/2023 6:15 AM EST Hospital Encounter MRI, [place] [address] [place] [address] Canceled (Clinician Appt Cancel Appt Not Needed) 11/06/2023 6:15 AM EST Anticoagulation Pharmacy Call Center WB 58-[address] [place] [address] [facility], [place], [facility] 58 60 [place] [address] 11/21/2023 7:20 AM EST Laboratory Laboratory Hem/Onc [facility], [place] [address] [place] [phone] [place], Lab Med4 [address] [place] [address] 11/21/2023 8:00 AM EST Office Visit Hematology Oncology [facility], [address] [phone] Nicole Carrillo PA-C [address] [place], [place] [phone] 11/21/2023 9:00 AM EST Hem/Onc Treatment Hematology Oncology [facility], [place] [address] [place] [address] [place], Chair 4 Hem/Onc [address] [place] [phone] 12/04/2023 11:00 AM EST Office Visit Cardiology, [facility] [address] [place] [address] Santa Quintero CRNP [address] [place] [address] 12/12/2023 8:45 AM EST Nurse Only Hematology Oncology [facility], [address] [address] [place], Nurse Lab Hem/Onc [address] [place] [address] 12/12/2023 9:30 AM EST Office Visit Hematology Oncology [facility], [place] [address] [place] [address] Kerri Foote MD [facility] [address] [place], [place] 1467[address] 12/12/2023 10:30 AM EST Hem/Onc Treatment Hematology Oncology [facility], [place] [address] [place] [address] [place], Chair 4 Hem/Onc [address] [place] [address] 05/06/2024 9:20 AM EDT Office Visit Neurology [facility] [address] [place] [address] Kathy Pryor PA-C [address] [place] [address] Health Maintenance Due Date Last Done Comments [...] this encounter Medical Devices Implanted Type Area Watch Repairer Device Identifier Shelf Expiration Date Model / Serial / Lot Power Port 8fr Sngl Lumen Plas - [id number] Implanted:Qty: 1 on 04/24/2021 at [facility] CR BARD : PERIPHERAL VASCULAR [id number] 02/24/2022 [id number] / / [id number] documented as of this encounter Visit Diagnoses [...] the patient have Health Care Power of University Extension Specialist? No Code Status History Code Status Date Activated Date Inactivated Comments Full Code 05/23/2021 12:21 PM 05/24/2021 9:38 PM This order reflects the patients wishes and were consensually agreed upon. Question Answer Comments Discussion of Advance Directives occurred with: Patient Healthcare Agents on File Name Relationship Healthcare Agent [facility] Communication Rose Mary Brothers Spouse Health Care Agent Care Teams Industrial Eng Relationship Specialty Start Date End Date Matthew Herrmann PA-C [address] [place] [address] PCP - General Physician Diesel Service Technician 03/22/21 documented as of this encounter
--- OUTSIDE RECORDS SUMMARY | 2024-04-11 14:57 | External Medical Summary | Summary of Care ---
Author Name Unknown Organization [facility] Address [address] [place] [address] Phone [phone] Care Team Providers Care Airbrush Artist Photography Name Role Phone Matthew Herrmann PA-C Primary Care Provider +1 [phone] Reason for Visit * Evaluate & Treat - Unlimited Visits (Within 30 days (routine)) - Authorized Specialty Diagnoses / Procedures Referred By Yuli seay Referred To Contact Hematology/Oncology / Hematology Oncology Diagnoses 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) Matthew Herrmann PA-C [address] [place] [address] Referral ID Status Reason Start Date Expiration Date Visits Requested Visits Authorized [id number] Authorized Specialty Services Required 06/11/2023 06/11/[phone] Encounter Details Date Type Department Care Team (Latest Contact Info) Description 09/12/2023 10:30 AM EST Hem/Onc Treatment Hematology Oncology [facility], [place] [address] [place] [address] [place], [facility] 10 Hem/Onc [facility] [address] [place], [place] [phone] Encounter for antineoplastic chemotherapy*; Non-small cell lung [...] mRNA, LNP-s, No Pre serve, 2-Dose Series (Covacsis) 09/23/2021 documented as of this encounter Social [...] 11/05/2023 6:15 AM EST Hospital Encounter MRI, [place] [address] [place] [address] Canceled (Clinician Appt Cancel Appt Not Needed) 11/06/2023 6:15 AM EST Anticoagulation Pharmacy Call Center WB 58-[address] [place] [address] [facility], [facility] 58 [address] [place] [address] 11/21/2023 7:20 AM EST Laboratory Laboratory Hem/Onc [facility], [place] [address] [place] [phone] [place], Lab Med4 [address] [place] [address] 11/21/2023 8:00 AM EST Office Visit Hematology Oncology [facility], [address] [phone] Nicole Carrillo PA-C [address] [place], [place] [phone] 11/21/2023 9:00 AM EST Hem/Onc Treatment Hematology Oncology [facility], [place] [address] [place] [address] [place], Chair 4 Hem/Onc [address] [place] [address]3008[address] 12/04/2023 11:00 AM EST Office Visit Cardiology, [facility] [address] [place] [address] Santa Quintero CRNP [address] [place] [address] 12/12/2023 8:45 AM EST Nurse Only Hematology Oncology [facility], [address] [address] [place], Nurse Lab Hem/Onc [address] [place] [address] 12/12/2023 9:30 AM EST Office Visit Hematology Oncology [facility], [place] [address] [place] [address] Kerri Foote MD [facility] [address] [place], [place] [address]608[address] 12/12/2023 10:30 AM EST Hem/Onc Treatment Hematology Oncology [facility], [place] [address] [place] [address] [place], Chair 4 Hem/Onc [address] [place] [address] 05/06/2024 9:20 AM EDT Office Visit Neurology [facility] 200 [facility] [place] [place] [address] Kathy Pryor PA-C 200 [facility] [place] [place] [address] Health Maintenance Due Date Last Done Comments [...] this encounter Medical Devices Implanted Type Area Needle Loom Operator Helper Device Identifier Shelf Expiration Date Model / Serial / Lot Power Port 8fr Sngl Lumen Plas - [id number] Implanted:Qty: 1 on 04/24/2021 at [facility] CR BARD : PERIPHERAL VASCULAR [id number] 02/24/2022 [id number] / / [id number] documented as of this encounter Visit Diagnoses [...] the patient have Health Care Power of Customer Service Technician? No Code Status History Code Status Date Activated Date Inactivated Comments Full Code 05/23/2021 12:21 PM 05/24/2021 9:38 PM This order reflects the patients wishes and were consensually agreed upon. Question Answer Comments Discussion of Advance Directives occurred with: Patient Healthcare Agents on File Name Relationship Healthcare Agent [facility] Communication Rose Mary Brothers Spouse Health Care Agent Care Teams Airbrush Artist Photography Relationship Specialty Start Date End Date Matthew Herrmann PA-C [address] [place] [address] PCP - General Physician Hog Handler 03/22/21 documented as of this encounter
--- OUTSIDE RECORDS SUMMARY | 2024-04-11 14:57 | External Medical Summary ---
Author Name Unknown Address Unknown Organization K01:LAB[facility]ATORY [facility] - [address] [place] [address] Laboratory Report Ordering Provider Test Date Status JOSE STEELE 11/06/2023 12:26:53 Final Observation Date Value Abnormality Reference (Units ) Status TSH 11/06/2023 12:26:53 1.51 0.27-4.20 (uIU/mL) Final Performing Location [facility]ORY [facility] - [address] [place] [address]
--- OUTSIDE RECORDS SUMMARY | 2024-04-11 14:57 | External Medical Summary ---
Author Name Unknown Address Unknown Organization K01:LABORATORY C - [address] [facility] [place] [address] Laboratory Report Ordering Provider Test Date Status JOSE STEELE 11/06/2023 12:26:53 Final Observation Date Value Abnormality Reference (Units ) Status SYNC LEUKOCYTES IN BLOOD BY AUTOMATED COUNT 11/06/2023 12:26:53 6.97 4.00-10.80 (K/uL) Final Neutrophils/100 leukocytes in Blood by Manual count 11/06/2023 12:26:53 65.0 40.0-75.0 (%) Final Lymphocytes/100 leukocytes in Blood by Manual count 11/06/2023 12:26:53 21.0 18.0-42.0 (%) Final Monocytes/100 leukocytes in Blood by Manual count 11/06/2023 12:26:53 8.0 1.0-11.0 (%) Final Basophils/100 leukocytes in Blood by Manual count 11/06/2023 12:26:53 2.0 0.0-2.0 (%) Final Metamyelocytes/100 leukocytes in Blood by Manual count 11/06/2023 12:26:53 4.0 Above high normal <=0.0 (%) Final Neutrophils [#/volume] in Blood by Manual count 11/06/2023 12:26:53 4.53 1.80-7.70 (K/uL) Final Lymphocytes [#/volume] in Blood by Manual count 11/06/2023 12:26:53 1.46 1.00-4.80 (K/uL) Final Monocytes [#/volume] in Blood by Manual count 11/06/2023 12:26:53 0.56 0.00-1.10 (K/uL) Final Basophils [#/volume] in Blood by Manual count 11/06/2023 12:26:53 0.14 0.00-0.20 (K/uL) Final Metamyelocytes [#/volume] in Blood by Manual count 11/06/2023 12:26:53 0.28 Above high normal <=0.00 (K/uL) Final Ovalocytes [Presence] in Blood by Light microscopy 11/06/2023 12:26:53 Moderate Abnormal None Seen Final Schistocytes 11/06/2023 12:26:53 Few Abnormal None Seen Final Neutrophils.vacuolated [Presence] in Blood by Light microscopy 11/06/2023 12:26:53 Present Abnormal None Seen Final Performing Location LABORATORY [facility] - [address] [facility] [address]
--- OUTSIDE RECORDS SUMMARY | 2024-04-11 14:57 | External Medical Summary | Summary of Care ---
Author Name Unknown Organization [facility] Address [address] [place] [address] Phone [phone] Care Team Providers Care Systems Architect Name Role Phone Matthew Herrmann PA-C Primary Care Provider +1 [phone] Encounter Details Date Type Department Care Team (Late st Contact Info) Description 10/29/2023 Orders Only Outcomes Research Department [address] [place], [place] [phone] Madelyn Mcclendon CHRA [facility] Research Other*[id number] Allergies Active Allergy Reactions Criticality Noted Date Comments Carboplatin High 11/14/2021 Dyspnea, chest pain, hypoxia, sore throat, edema throat, flushing, mild hypotension Isosorbide Nitrate Other (Please comment) 07/22/2023 Headache documented as of this encounter (statuses as of 10/29/2023) Medications Medication Sig Dispensed Refills Start Date [...] as of this encounter (statuses as of 10/29/2023) Active Problems Problem Noted Date Diagnosed Date [...] as of this encounter (statuses as of 10/29/2023) Resolved Problems Problem Noted Date Diagnosed Date Resolved Date Prediabetes 09/22/2021 08/09/2022 MSSA bacteremia 08/01/2021 08/07/2021 Sepsis 08/01/2021 08/07/2021 COPD, group B, by GOLD 2017 classification 05/08/2021 06/21/2021 Overview: Per COPD GOLD Classification Obstructive lung disease 04/10/2021 Overview: Per COPD GOLD Classification documented as of this encounter (statuses as of 10/29/2023) Immunizations Name Administration Dates Next Due COVID-19 mRNA, LNP-s, No Pre serve, 2-Dose Series (Influx) 09/23/2021 documented as of this encounter Social [...] Call Center WB 58-60 Public [place] [address] [facility] 58 60 [facility] [place] [address] 10/30/2023 11:20 AM EST Office Visit Neurology [place] [address] [place] [place] [address] Kathy Pryor PA-C [address] [place] [address] 11/01/2023 10:00 AM EST Rehab Services Speech Therapy, [place] [address] [place] [address] Lisa Hairston, STONE RIGGER [address] [place] [address] 11/05/2023 6:15 AM EST Hospital Encounter MRI, [address] [address] Canceled (Clinician Appt Cancel Appt Not Needed) 11/15/2023 9:40 AM EST Office Visit [facility] [address] [place] [phone] Matthew Herrmann PA-C [address] [place] [address] 11/18/2023 7:30 AM EST NeuroDiagnostic Study Neurophysiology, [address] [id number] 1, Neurophys Tech [address] [place] [address] [phone] 11/21/2023 7:20 AM EST Laboratory Laboratory Hem/Onc [facility], [address] [phone] [place], Lab Med4 [address] [place] [address] 2286422 11/21/2023 8:00 AM EST Office Visit Hematology Oncology [facility], [address] [phone] Nicole Carrillo PA-C [facility] [address] [place], [place] [phone] 11/21/2023 9:00 AM EST Hem/Onc Treatment Hematology Oncology [facility], [address] [phone] [place], Chair 4 Hem/Onc [address] [place] [address] 12/04/2023 11:00 AM EST Office Visit Cardiology, [facility] [address] [facility] [place] [address] Santa Quintero CRNP [address] [place] [address] 12/12/2023 8:45 AM EST Nurse Only Hematology Oncology [facility], [place] [address] [place], [place] [phone] [place], Nurse Lab Hem/Onc [facility] [place] [address] 12/12/2023 9:30 AM EST Office Visit Hematology Oncology [facility], [place] [address] [place] [phone] Kerri Foote MD [address] [place] [address] 12/12/2023 10:30 AM EST Hem/Onc Treatment Hematology Oncology [place] [address] [address] [place], [place] [phone] [place], Chair 4 Hem/Onc [facility] [address] [place], [place] [phone] Scheduled Orders Name Type Priority Associated Diagnoses Orde r Schedule MYCODE SUBSEQUENT ADULT Lab Routine MyCode Research Other*[id number] Every 6 Months for 2 Occurrences starting 10/29/2023 until 11/17/2024 Health Maintenance Due Date Last Done Comments [...] this encounter Medical Devices Implanted Type Area Soldering Machine Feeder Device Identifier Shelf Expiration Date Model / Serial / Lot Power Port 8fr Sngl Lumen Plas - [id number] Implanted:Qty: 1 on 04/24/2021 at [facility] CR BARD : PERIPHERAL VASCULAR [id number] 02/24/2022 [id number] / / [id number] Port Implant W/8f Poly Cath - [id number] Implanted:Qty: 1 on 10/15/2023 at [facility] CR BARD : PERIPHERAL VASCULAR [id number] 03/27/2025 [id number] / / [id number] documented as of this encounter Visit Diagnoses Diagnosis [facility] Research Other*[id number] documented in this encounter Additional Health Concerns [...] the patient have Health Care Power of Dental Assistant? No Code Status History Code Status Date Activated Date Inactivated Comments Full Code 05/23/2021 12:21 PM 05/24/2021 9:38 PM This order reflects the patients wishes and were consensually agreed upon. Question Answer Comments Discussion of Advance Directives occurred with: Patient Healthcare Agents on File Name Relationship Healthcare Agent [facility] delmar Communication Rose Mary Brothers Spouse Health Care Agent Care Teams Systems Architect Relationship Specialty Start Date End Date Matthew Herrmann PA-C [address] [place] [address] PCP - General Physician Superintendent Job 03/22/21 documented as of this encounter
--- OUTSIDE RECORDS SUMMARY | 2024-04-11 14:57 | External Medical Summary ---
Author Name Unknown Address Unknown Organization K01:LAB[facility]ATORY [facility] [place] [address] [place] [address] Laboratory Report Ordering Provider Test Date Status JOSE STEELE 11/06/2023 12:26:53 Final Observation Date Value Abnormality Reference (Units ) Status WBC, Total 11/06/2023 12:26:53 6.97 4.00-10.80 (K/uL) Final RBC 11/06/2023 12:26:53 4.17 4.50-5.25 (M/uL) Final Hemoglobin 11/06/2023 12:26:53 13.4 Below low normal 14.0-16.8 (g/dL) Final HCT 11/06/2023 12:26:53 40.7 40.0-48.4 (%) Final MCV 11/06/2023 12:26:53 97.6 82.0-99.5 (fL) Final MCH 11/06/2023 12:26:53 32.1 27.0-34.0 (pg) Final MCHC 11/06/2023 12:26:53 32.9 32.0-36.0 (g/dL) Final RDW 11/06/2023 12:26:53 17.5 11.5-15.5 (%) Final Platelets 11/06/2023 12:26:53 268 140-400 (K/uL) Final MPV 11/06/2023 12:26:53 10.5 6.6-11.1 (fL) Final Nucleated erythrocytes/100 leukocytes [Ratio] in Blood by Automated count 11/06/2023 12:26:53 1 Above high normal <=0 (/100 WBCs) Final Performing Location LAB[facility]ORY [facility] [place] - [address] [place] [address]
--- OUTSIDE RECORDS SUMMARY | 2024-04-11 14:58 | External Medical Summary ---
Author Name Unknown Address Unknown Organization K01:[facility] - [address] [place] [address] Laboratory Report Ordering Provider Test Date Status TERRI SKINNER 10/22/2023 11:48:46 Final Observation Date Value Abnormality Reference (Units ) Status MYCODE SPECIMEN-SST 10/22/2023 11:48:46 Freezing of extracted DNA, whole blood and/or serum. Final Performing Location [facility] - [address] [place] [address]
--- OUTSIDE RECORDS SUMMARY | 2024-04-11 14:58 | External Medical Summary ---
Author Name Unknown Address Unknown Organization K01:[facility] - [address] [facility] [address] Laboratory Report Ordering Provider Test Date Status JOSE STEELE 10/24/2023 07:51:49 Final Observation Date Value Abnormality Reference (Units ) Status WBC, Total 10/24/2023 07:51:49 16.68 Above high normal 4.00-10.80 (K/uL) Final RBC 10/24/2023 07:51:49 4.31 4.50-5.25 (M/uL) Final Hemoglobin 10/24/2023 07:51:49 13.9 Below low normal 14.0-16.8 (g/dL) Final HCT 10/24/2023 07:51:49 40.6 40.0-48.4 (%) Final MCV 10/24/2023 07:51:49 94.2 82.0-99.5 (fL) Final MCH 10/24/2023 07:51:49 32.3 27.0-34.0 (pg) Final MCHC 10/24/2023 07:51:49 34.2 32.0-36.0 (g/dL) Final RDW 10/24/2023 07:51:49 16.5 11.5-15.5 (%) Final Platelets 10/24/2023 07:51:49 190 140-400 (K/uL) Final MPV 10/24/2023 07:51:49 10.2 6.6-11.1 (fL) Final Nucleated erythrocytes/100 leukocytes [Ratio] in Blood by Automated count 10/24/2023 07:51:49 0 <=0 (/100 WBCs) Final Performing Location [facility] - [address] [facility] [address]
--- OUTSIDE RECORDS SUMMARY | 2024-04-11 14:58 | External Medical Summary | Summary of Care ---
Author Name Unknown Organization [facility] Address [address] [place] [address] Phone [phone] Care Team Providers Care Video Software Engineer Name Role Phone Matthew Herrmann PA-C Primary Care Provider [phone] [phone] Reason for Visit * Evaluate & Treat - Unlimited Visits (Within 30 days (routine)) - Authorized Specialty Diagnoses / Procedures Referred By Yuli seay Referred To Contact Hematology/Oncology / Hematology Oncology Diagnoses 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) Matthew Herrmann PA-C [address] [place] [address] Referral ID Status Reason Start Date Expiration Date Visits Requested Visits Authorized [id number] Authorized Specialty Services Required 06/11/2023 06/11/[phone] Encounter Details Date Type Department Care Team (Latest Contact Info) Description 10/24/2023 9:00 AM EST Hem/Onc Treatment Hematology Oncology [facility], [place] [address] [place] [address] [place], [facility] 4 Hem/Onc [facility] [address], [place] [phone] Non-small cell lung cancer metastatic to bone [...] mRNA, LNP-s, No Pre serve, 2-Dose Series (CommonFloor) 09/23/2021 documented as of this encounter Social [...] Call Center WB 58-60 Public [place] [address] [facility] 58 60 [facility] [place] [address] 10/30/2023 11:20 AM EST Office Visit Neu[facility] [address] [place] [address] Kathy Pryor PA-C [address] [place] [address] 11/01/2023 10:00 AM EST Rehab Services Speech Therapy, [address] [address] Lisa Hairston, BANQUET MANAGER [address] [place] [address] 11/05/2023 6:15 AM EST Hospital Encounter MRI, [address] [id number] Canceled (Clinician Appt Cancel Appt Not Needed) 11/15/2023 9:40 AM EST Office Visit [facility] [address] [place] [phone] Matthew Herrmann PA-C [address] [place] [address] 11/18/2023 7:30 AM EST NeuroDiagnostic Study Neurophysiology, [address] [id number] 1, Neurophys Tech [address] [place], [place] [phone] 11/21/2023 7:20 AM EST Laboratory Laboratory Hem/Onc [facility], [place] [address] [place] [phone] [place], [facility] Med [address], [place] [phone] 11/21/2023 8:00 AM EST Office Visit Hematology Oncology [facility], [place] [address] [place] [phone] Nicole Carrillo PA-C [facility] [address], [place] [phone] 11/21/2023 9:00 AM EST Hem/Onc Treatment Hematology Oncology [facility], [place] [address] [place], [place] [phone] [place], Chair 4 Hem/Onc [address] [place] [address] 12/04/2023 11:00 AM EST Office Visit Cardiology, [facility] [address] [place] [address] Santa Quintero CRNP [address] [place] [address] 12/12/2023 8:45 AM EST Nurse Only Hematology Oncology [facility], [address] [address] [place], Nurse Lab Hem/Onc [address] [place] [address] 12/12/2023 9:30 AM EST Office Visit Hematology Oncology [facility], [place] [address] [place] [phone] Kerri Foote MD [facility] [place] [address] 12/12/2023 10:30 AM EST Hem/Onc Treatment Hematology Oncology [facility], [place] [address] [place] [address] [place], Chair 4 Hem/Onc [address] [place] [address] Pending Results Name Type Priority Associated Diagnoses Date /Time HEPARIN, LOW MOLECULAR WEIGHT Lab Routine 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) 10/24/2023 9:50 AM EST Scheduled Orders Name Type Priority [...] bone (HCC) Expected: 10/24/2023 (Approximate), Expires: 04/21/2024 HEPARIN, LOW MOLECULAR WEIGHT Lab Routine 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) Expected: 10/24/2023, Expires: 10/24/2024 Health Maintenance Due Date Last Done Comments [...] encounter Medical Devices Implanted Type Area Child And Family Therapist Device Identifier Shelf Expiration Date Model / Serial / Lot Power Port 8fr Sngl Lumen Plas - [id number] Implanted:Qty: 1 on 04/24/2021 at [facility] CR BARD : PERIPHERAL VASCULAR [id number] 02/24/2022 [id number] / / [id number] Port Implant W/8f Poly Cath - [id number] Implanted:Qty: 1 on 10/15/2023 at [facility] CR BARD : PERIPHERAL VASCULAR [id number] 03/27/2025 [id number] / / [id number] documented as of this encounter Visit Diagnoses [...] Other, Hypersensitivity Reaction or Anaphylaxis, Starting on Sat10/24/23 at 0839, Until Sat10/25/23 at 0838, For 24 hours hEParin 100 UNIT/ML Lock Flush inj 500 Units 500 Units (5 mL), IV Lock, PRN Other, IV Flush, Starting on Sat10/24/23 [...] oxygen GAS Inhalation, OXYGEN, First dose on Sat10/24/23 at 0915, Until Discontinued, Device/Managed by: Low [...] than 85% and when escalating delivery device. PACLitaxel (Taxol) 387 mg in NSS 500 mL infusion 387 mg (rounded from 386.75 mg = 175 mg/m2 2.21 m2 Treatment Plan BSA from Recorded weight), IV Piggyback, at 166.67 mL/hr Administer over 180 Minutes, Administer through 0.22 micron low protein binding filter!, ONCE, 1 dose, On Sat10/24/23 at 1045 sodium chloride 0.9 % flush central line [...] 50 mg 50 mg, Oral, ONCE, On Sat10/24/23 at 0945, For 1 dose Given 10/24/2023 8:53 AM EST 50 mg Famotidine (Pepcid) tab 20 mg 20 mg, Oral, ONCE, On Sat10/24/23 at 0945, For 1 dose Given 10/24/2023 8:52 AM EST 20 mg ondansetron (Zofran) tab 8 mg 8 mg, Oral, ONCE, On Ofe 10/24/23 at 0915, For 1 dose Given 10/24/2023 8:53 AM EST 8 mg Pembrolizumab (Keytruda) 200 mg in NSS 100 [...] the patient have Health Care Power of Head Of It? No Code Status History Code Status Date Activated Date Inactivated Comments Full Code 05/23/2021 12:21 PM 05/24/2021 9:38 PM This order reflects the patients wishes and were consensually agreed upon. Question Answer Comments Discussion of Advance Directives occurred with: Patient Healthcare Agents on File Name Relationship Healthcare Agent Relationshi p Communication Rose Mary Brothers Spouse Health Care Agent [phone] (Mobile) Care Teams Video Software Engineer Relationship Specialty Start Date End Date Matthew Herrmann PA-C [address] [place] [address] PCP - General Physician Refrigerating Engineer 03/22/21 documented as of this encounter
--- OUTSIDE RECORDS SUMMARY | 2024-04-11 14:58 | External Medical Summary ---
Author Name Unknown Address Unknown Organization K01:[facility]ATORY [facility] - [address] [place] [address] Laboratory Report Ordering Provider Test Date Status JOSE STEELE 10/24/2023 07:51:49 Final Observation Date Value Abnormality Reference (Units ) Status TSH 10/24/2023 07:51:49 0.77 0.27-4.20 (uIU/mL) Final Performing Location [facility] - [address] [place] [address]
--- OUTSIDE RECORDS SUMMARY | 2024-04-11 14:58 | External Medical Summary | Summary of Care ---
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) Matthew Herrmann PA-C [address] [place] [address] Referral ID Status Reason Start Date Expiration Date Visits Requested Visits Authorized [id number] Authorized Specialty Services Required 06/11/2023 06/11/[phone] Encounter Details Date Type Department Care Team (Latest Contact Info) Description 10/24/2023 9:00 AM EST Hem/Onc Treatment Hematology Oncology [facility], [place] [address] [place] [address] [place], [facility] 4 Hem/Onc [facility] [address] [place], [place] [phone] Non-small cell lung cancer metastatic to bone [...] mRNA, LNP-s, No Pre serve, 2-Dose Series (Knimbus) 09/23/2021 documented as of this encounter Social [...] Call Center WB 58-60 Public [place] [address] [facility] 58 60 [facility] [place] [address] 10/30/2023 11:20 AM EST Office Visit Neurology [facility] [place] [address] [place] [address] Kathy Pryor PA-C [address] [place] [address] 11/01/2023 10:00 AM EST Rehab Services Speech Therapy, [address] [address] Lisa Hairston, FOOD SERVICES MANAGER [address] [place] [address] 11/05/2023 6:15 AM EST Hospital Encounter MRI, [address] [id number] Canceled (Clinician Appt Cancel Appt Not Needed) 11/15/2023 9:40 AM EST Office Visit [facility] [address] [place] [phone] Matthew Herrmann PA-C [address] [place] [address] 11/18/2023 7:30 AM EST NeuroDiagnostic Study Neurophysiology, [address] [phone] 1, Neurophys Tech [address] [place], [place] [phone] 11/21/2023 7:20 AM EST Laboratory Laboratory Hem/Onc [facility], [place] [address] [place] [phone] [place], [facility] Med [address] [place], [place] [phone] 11/21/2023 8:00 AM EST Office Visit Hematology Oncology [facility], [place] [address] [place] [phone] Nicole Carrillo PA-C [facility] [address] [place], [place] [phone] 11/21/2023 9:00 AM EST Hem/Onc Treatment Hematology Oncology [facility], [place] [address] [address] [place], [place] [phone] [place], Chair 4 Hem/Onc [facility] [place] [address] 12/04/2023 11:00 AM EST Office Visit Cardiology, [facility] [address] [place] [address] Santa Quintero CRNP [address] [place] [address] 12/12/2023 8:45 AM EST Nurse Only Hematology Oncology [facility], [place] [address] [place] [address] [place], Nurse Lab Hem/Onc [address] [place] [address] 12/12/2023 9:30 AM EST Office Visit Hematology Oncology [facility], [place] [address] [place] [phone] Kerri Foote MD [facility] [place] [address] 12/12/2023 10:30 AM EST Hem/Onc Treatment Hematology Oncology [facility], [place] [address] [place] [address] [place], Chair 4 Hem/Onc [address] [place] [address] Scheduled Orders Name Type Priority Associated Diagnoses [...] this encounter Medical Devices Implanted Type Area Web Programmer Device Identifier Shelf Expiration Date Model / Serial / Lot Power Port 8fr Sngl Lumen Plas - [id number] Implanted:Qty: 1 on 04/24/2021 at [facility] CR BARD : PERIPHERAL VASCULAR [id number] 02/24/2022 [id number] / / [id number] Port Implant W/8f Poly Cath - [id number] Implanted:Qty: 1 on 10/15/2023 at [facility] CR BARD : PERIPHERAL VASCULAR [id number] 03/27/2025 [id number] / / [id number] documented as of this encounter Visit Diagnoses [...] 8 mg 8 mg, Oral, ONCE, On Sat10/24/23 at 0915, For 1 dose Given 10/24/2023 [...] the patient have Health Care Power of Labor/Excavator? No Code Status History Code Status Date Activated Date Inactivated Comments Full Code 05/23/2021 12:21 PM 05/24/2021 9:38 PM This order reflects the patients wishes and were consensually agreed upon. Question Answer Comments Discussion of Advance Directives occurred with: Patient Healthcare Agents on File Name Relationship Healthcare Agent [facility] Communication Rose Mary Brothers Spouse Health Care Agent Care Teams Enterprise Solutions Architect Relationship Specialty Start Date End Date Matthew Herrmann PA-C [address] [place] [address] PCP - General Physician Tourist Home Keeper 03/22/21 documented as of this encounter
--- OUTSIDE RECORDS SUMMARY | 2024-04-11 14:58 | External Medical Summary ---
Author Name Unknown Address Unknown Organization K01:[facility] - [address] [place] [address] Laboratory Report Ordering Provider Test Date Status TERRI SKINNER 10/22/2023 11:48:46 Final Observation Date Value Abnormality Reference (Units ) Status MYCODE SPECIMEN-SST 10/22/2023 11:48:46 Freezing of extracted DNA, whole blood and/or serum. Final Performing Location [facility] - [address] [place] [address]
--- OUTSIDE RECORDS SUMMARY | 2024-04-11 14:58 | External Medical Summary | Summary of Care ---
Author Name Unknown Organization [facility] Address [address] [place] [address] Phone [phone] Care Team Providers Care School Athletic Director Name Role Phone Matthew Herrmann PA-C Primary Care Provider [phone] [phone] Encounter Details Date Type Department Care Team (Late st Contact Info) Description 10/22/2023 Orders Only Hematology Oncology [facility] [address] [place] [address] Kerri Foote MD [address] [place] [address] Malignant neoplasm of lower lobe, left bronchus or lung (HCC)* Allergies Active Allergy Reactions Criticality Noted Date Comments Carboplatin High 11/14/2021 Dyspnea, chest pain, hypoxia, sore throat, edema throat, flushing, mild hypotension Isosorbide Nitrate Other (Please comment) 07/22/2023 Headache documented as of this encounter (statuses as of 10/22/2023) Medications Medication Sig Dispensed Refills Start Date [...] as of this encounter (statuses as of 10/22/2023) Active Problems Problem Noted Date Diagnosed Date [...] as of this encounter (statuses as of 10/22/2023) Resolved Problems Problem Noted Date Diagnosed Date Resolved Date Prediabetes 09/22/2021 08/09/2022 MSSA bacteremia 08/01/2021 08/07/2021 Sepsis 08/01/2021 08/07/2021 COPD, group B, by GOLD 2017 classification 05/08/2021 06/21/2021 Overview: Per COPD GOLD Classification Obstructive lung disease 04/10/2021 Overview: Per COPD GOLD Classification documented as of this encounter (statuses as of 10/22/2023) Immunizations Name Administration Dates Next Due COVID-19 mRNA, LNP-s, No Pre serve, 2-Dose Series (Retail Rocket) 09/23/2021 documented as of this encounter Social [...] Care Team (Late st Contact Info) Description 10/23/2023 6:15 AM EST Anticoagulation Pharmacy Call Center WB 58-60 [facility] [place] [address] [facility] 58 60 [facility] [place] [address] 10/24/2023 7:20 AM EST Laboratory Laboratory Hem/Onc [address] [place] [phone] [place], Lab Med4 [facility] [place] [address] 10/24/2023 8:00 AM EST Office Visit Hematology Oncology [facility], [place] [address] [place] [phone] Yanni Yao CRNP [address] [place] [address] 10/24/2023 9:00 AM EST Hem/Onc Treatment Hematology Oncology [facility], [place] [address] [address] [place], [place] [phone] [place], Chair 4 Hem/Onc [address] [place] [place] [address] 10/30/2023 11:20 AM EST Office Visit Neurology [facility] 200 [facility] [place] [address] Kathy Pryor PA-C [address] [place] [address] 11/01/2023 10:00 AM EST Rehab Services Speech Therapy, [address] [address] Lisa Hairston, MACHINE PLATE STACKER [address] [place] [address] 11/05/2023 6:15 AM EST Hospital Encounter MRI, [address] [address] 11/05/2023 8:00 AM EST Appointment MRI, [address] [address] 11/15/2023 9:40 AM EST Office Visit [address] [phone] Matthew Herrmann PA-C [address] [place] [address] 11/18/2023 7:30 AM EST NeuroDiagnostic Study Neurophysiology, [address] [id number] 1, Neurophys Tech [address] [place] [address] [phone] 11/21/2023 7:20 AM EST Laboratory Laboratory Hem/Onc [facility], [address] [phone] [place], Lab Med4 [address] [place] [place] [address] [phone] 11/21/2023 8:00 AM EST Office Visit Hematology Oncology [facility], [address] [phone] Nicole Carrillo PA-C [address] [place] [place] [address] [phone] 11/21/2023 9:00 AM EST Hem/Onc Treatment Hematology Oncology [facility], [address] [phone] [place], Chair 4 Hem/Onc [address] [place] [place] [address] [phone] 12/04/2023 11:00 AM EST Office Visit Cardiology, [facility] 132 [facility] [place] [address] Santa Quintero CRNP 132 [facility] [place] [address] Scheduled Orders Name Type Priority Associated Diagnoses Orde r Schedule CBC WITH WBC DIFFERENTIAL Lab STAT Malignant neoplasm of lower lobe, left bronchus or lung (HCC) Expected: 10/23/2023, Expires: 10/22/2024 COMPREHENSIVE METABOLIC PANEL Lab STAT Malignant neoplasm of lower lobe, left bronchus or lung (HCC) Expected: 10/23/2023, Expires: 10/22/2024 Health Maintenance Due Date Last Done Comments [...] 09/19/2026 09/19/2021, 10/0 12/2012, 04/25/2010 Diabetes Screening 10/10/2026 10/10/2023, 1 12/09/2022, 10/03/2023, Additional history exists Colonoscopy 08/13/2029 08/13/2019, 08/13/2019 Colorectal Cancer Screening 08/13/2029 GARDASIL-HPV IMMUNIZATION SERIES Aged Out No longer eligible based on patient's age to complete this topic MENINGOCOCCAL (MENACTRA/MENVEO) Aged Out No longer eligible based on patient's age to complete this topic documented as of this encounter Medical Devices Implanted Type Area Hoof Trimmer Device Identifier Shelf Expiration Date Model / Serial / Lot Power Port 8fr Sngl Lumen Plas - [id number] Implanted:Qty: 1 on 04/24/2021 at [facility] CR BARD : PERIPHERAL VASCULAR [id number] 02/24/2022 [id number] / / [id number] Port Implant W/8f Poly Cath - [id number] Implanted:Qty: 1 on 10/15/2023 at [facility] CR BARD : PERIPHERAL VASCULAR [id number] 03/27/2025 [id number] / / [id number] documented as of this encounter Visit Diagnoses Diagnosis Malignant neoplasm of lower lobe, left bronchus or lung (HCC)- Primary documented in this encounter Additional [...] the patient have Health Care Power of Rolling Machine Tender? No Code Status History Code Status Date Activated Date Inactivated Comments Full Code 05/23/2021 12:21 PM 05/24/2021 9:38 PM This order reflects the patients wishes and were consensually agreed upon. Question Answer Comments Discussion of Advance Directives occurred with: Patient Healthcare Agents on File Name Relationship Healthcare Agent Relationshi p Communication Rose Mary Brothers Spouse Health Care Agent Care Teams School Athletic Director Relationship Specialty Start Date End Date Matthew Herrmann PA-C [address] [place], [place] [phone] PCP - General Physician Piping Designer 03/22/21 documented as of this encounter
--- OUTSIDE RECORDS SUMMARY | 2024-04-11 14:58 | External Medical Summary ---
Author Name Unknown Address Unknown Organization K01:[facility] [place] [address] [place] [address] Laboratory Report Ordering Provider Test Date Status JOSE STEELE 10/22/2023 11:48:46 Final Observation Date Value Abnormality Reference (Units ) Status Phosphate 10/22/2023 11:48:46 2.7 2.5-4.8 (m g/dL) Final Performing Location [facility] - [address] [place] [address]
--- OUTSIDE RECORDS SUMMARY | 2024-04-11 14:58 | External Medical Summary ---
Author Name Unknown Address Unknown Organization K01:[facility] - [address] [place] [address] Laboratory Report Ordering Provider Test Date Status CAIN STEELEBRITTANY 10/22/2023 11:48:46 Final Observation Date Value Abnormality Reference (Units ) Status Magnesium 10/22/2023 11:48:46 2.0 1.5-2.6 (m g/dL) Final Performing Location [facility] - [address] [place] [address]
--- OUTSIDE RECORDS SUMMARY | 2024-04-11 14:58 | External Medical Summary ---
Author Name Unknown Address Unknown Organization K01:[facility] - [address] [place] [address] Laboratory Report Ordering Provider Test Date Status JOSE STEELE 10/24/2023 07:51:49 Final Observation Date Value Abnormality Reference (Units ) Status Phosphate 10/24/2023 07:51:49 3.7 2.5-4.8 (m g/dL) Final Performing Location [facility] - [address] [place] [address]
--- OUTSIDE RECORDS SUMMARY | 2024-04-11 14:58 | External Medical Summary ---
Author Name Unknown Address Unknown Organization K01:[facility] [address] [place] [address] Laboratory Report Ordering Provider Test Date Status JOSE STEELE 10/24/2023 07:51:49 Final Observation Date Value Abnormality Reference (Units ) Status BUN 10/24/2023 07:51:49 15 6-20 (mg/dL) Final Creatinine 10/24/2023 07:51:49 0.8 0.6-1.2 (mg/dL) Final Glomerular filtration rate/1.73 sq M.predicted [Volume Rate/Area] in Serum, Plasma or Blood by Creatinine-based formula (CKD-EPI) 10/24/2023 07:51:49 >90 >=60 (mL/min) Final eGFR is calculated based on the CKD-EPI 2020 equation SODIUM 10/24/2023 07:51:49 138 135-146 (m mol/L) Final Potassium 10/24/2023 07:51:49 3.5 3.5-5.1 (m mol/L) Final Cl 10/24/2023 07:51:49 101 98-107 (mm ol/L) Final CO2 10/24/2023 07:51:49 26 22-32 (mmo l/L) Final Anion gap 10/24/2023 07:51:49 11 7-15 (mmol /L) Final Glucose 10/24/2023 07:51:49 152 Above high normal 70 -120 (mg/dL) Final Albumin 10/24/2023 07:51:49 4.5 3.8-5.0 (g /dL) Final AST (Aspartate aminotransferase) 10/24/2023 07:51:49 30 10-50 (U/L) Fin al Alk Phos 10/24/2023 07:51:49 82 35-130 (U/ L) Final Bilirubin, Total 10/24/2023 07:51:49 0.4 <=1 .2 (mg/dL) Final Calcium 10/24/2023 07:51:49 8.8 8.4-10.2 ( mg/dL) Final Protein 10/24/2023 07:51:49 6.9 6.0-8.3 (g /dL) Final ALT (Alanine aminotransferase) 10/24/2023 07:51:49 98 Above high normal 10-50 (U/L) Final Performing Location [facility] [place] [address] [facility] [address]
--- OUTSIDE RECORDS SUMMARY | 2024-04-11 14:58 | External Medical Summary | Summary of Care ---
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) Matthew Spivey PA-C [address] [place] [address] Referral ID Status Reason Start Date Expiration Date Visits Requested Visits Authorized [id number] Authorized Specialty Services Required 06/11/2023 06/11/[phone] Encounter Details Date Type Department Care Team (Latest Contact Info) Description 10/24/2023 8:00 AM EST Office Visit Hematology Oncology [facility] [address] [place] [address] Yanni Yao CRNP [address] [place] [address] Malignant neoplasm of lower lobe, left bronchus or lung (HCC)*; History of pulmonary embolism; Neuropathy due to chemotherapeutic drug ; Balance problem Allergies Active Allergy Reactions Criticality Noted Date [...] mRNA, LNP-s, No Pre serve, 2-Dose Series (Stylefie) 09/23/2021 documented as of this encounter Social [...] Sign Reading Time Taken Comments Blood Pressure 136/90 10/24/2023 8:01 AM EST Pulse 69 10/24/2023 8:01 AM EST Temperature 36.2 C (97.1 F) 10/24/2023 8:01 AM ES T Respiratory Rate 15 10/24/2023 8:01 AM EST Oxygen Saturation 99% 10/24/2023 8:01 AM EST RA Inhaled Oxygen Concentration - - Weight 101.3 kg (223 lb 4.8 oz) 10/24/2023 8:01 AM EST Height 180.3 cm (5' 10.98") 10/24/2023 8:[address] Body Mass Index 31.16 10/24/2023 8:01 AM EST documented in this [...] this encounter Patient Instructions * Patient Instructions* Yanni Yao CRNP - 10/24/2023 8:23 AM EST Baking Soda Mouth Rinse - 1 teaspoon baking soda - 1 teaspoon salt - 1 quart warm water documented in this encounter Progress Notes * Yanni Yao CRNP - 10/24/2023 8:00 AM EST Hematology/Oncology Outpatient Clinic Note [facility] HEMATOLOGY[facility]ONCOL[facility]Y [facility] Name: Serena Brothers Date: 10/24/2023 CHIEF COMPLAINT: Serena Brothers is a 53 year old male patient of Dr. Foote here today for f/u visit. HISTORY OF PRESENT ILLNESS: Oncology history from patient chart, copied from previous note and updated as appropriate: HEMATOLOGY/ONCOLOGY DIAGNOSIS: Metastatic non-small cell lung cancer to bones. Adenocarcinoma. Biopsy done at [facility]. Molecular markers were not performed. SITE OF MALIGNANCY: B/L Lungs/hilum, mediastinum, L SCV HISTOPATHOLOGY: NSCLC, Adenocarcinoma, no further molecular analysis currently STAGE: At least IIIC, [id number], high suspicion and concern for Stage IV due to M1a bilateral disease and lymphangitic carcinomatosis DATE OF DIAGNOSIS: Primary malignant neoplasm of left lower lobe of lung (HCC) Staging form: Lung, AJCC 8th Edition - Clinical stage from 04/20/2021: cT4, cN3 - Unsigned TREATMENT RENDERED: No regular chest imaging. 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 No history of tobacco abuse. 09/2020 diagnosed COVID+, symptoms of cough Did not require imaging, ED visit, hospitalization Cough persisted and has intensified 12/2020 traveled to [place], when returned diagnosed with DVT, imaging with lung infiltrates treated with abx, unclear if infectious/inflammatory perhaps resolving post COVID interstitial changes, and left lower lobe mass noted 02/2021 traveled to [place], returned another DVT, workup with CTA noting [...] hilum and 4L diagnosing NSCLC, Adenocarcinoma - [facility] 04/06/2021 CTA thorax, no definitive PE. 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) 04/27/2021 - 05/19/2021 Chemotherapy CARBOPLATIN AUC 5 PEMETREXED 500 mg/m2 bevacizumab-xxxx 15 mg/kg D1 (Every 21 Days) [id number] 05/18/2021 - Supportive Therapy SCP - ZOLEDRONIC ACID (ZOMETA) [id number] Plan Provider: Kerri Foote MD Treatment goal: Supportive Line of treatment: [No plan line of treatment] 06/08/2021 - 09/12/2023 Chemotherapy PEMBROLIZUMAB 200 mg CARBOPLATIN AUC 5 PEMETREXED 500 mg/m2 (C1-4 D1 Every 21 Days) followed by PEMBROLIZUMAB/PEMETREXED (Every 21 Days) [id number] 10/03/2023 - Chemotherapy OP Pembrolizumab and Paclitaxel and Carboplatin every 21 days (Lung) [id number] Malignant neoplasm of lower lobe, left bronchus or lung (HCC) 06/08/2021 - 09/12/2023 Chemotherapy PEMBROLIZUMAB 200 mg CARBOPLATIN AUC 5 PEMETREXED 500 mg/m2 (C1-4 D1 Every 21 Days) followed by PEMBROLIZUMAB/PEMETREXED (Every 21 Days) [id number] 06/13/2023 Initial Diagnosis Malignant neoplasm of lower lobe, left bronchus or lung (HCC) 10/03/2023 - Chemotherapy OP Pembrolizumab and Paclitaxel and Carboplatin every 21 days (Lung) [id number] CURRENT TREATMENT: OP pembrolizumab and paclitaxel every 21 days started on 10/03/23. IMPRESSION/PLAN: Mr. Brothers is a 53 year old male with a history of primary adenocarcinoma of left lower lobe of lung metastatic to bone. He was recently hospitalized due to stroke -Right frontotemporal region consistent with an acute right MCA territory infarct. Labs reviewed and they are overall stable, mild anemia, no other cytopenias, or electrolyte imbalances. Renal and liver function test within normal limits. Okay to proceed with pembrolizumab and paclitaxel today Patient to continue Zometa every 6 weeks, due today Patient to continue Lovenox for hx DVTs and PE-following with MT for anticoaugulation Last MRI brain-09/30/2023 -reviewed Patient to continue following with neurology Mediport placed on 10/15/2023-clean and intact Completed antibiotics for recent pneumonia, Respiratory status back to baseline Malignant neoplasm of lower lobe, left bronchus or lung (HCC) (Primary) History of pulmonary embolism Neuropathy due to chemotherapeutic drug Balance problem Improved Check-out note: RTC in 3, 6 weeks in / DARIANA cbc with diff, cmp, tsh, rx5 Patient already scheduled 11/21 due to traveling on the week of the 11/14 INTERVAL HISTORY: Serena Brothers is a 53 year old male with a history as outlined above. Currently here for f/u visittoday. Accompanied by his , Rose Mary He completed his antibiotics recently for pneumonia. He denies SOB at rest. He endorses fatigue. He has been very thirsty. Mouth sores with last treatment. He has been drinking lots of water. Dizziness has improved Mild edema lower extremities, resolves with rest. He denies pain, or erythema. The patient denies fevers, night sweats, lymphadenopathy, SOB, cough, chest pain, palpitations, acute trauma, diarrhea, constipation, hematochezia, melena, abdominal pain, dysuria, hematuria, difficulty with ambulation, edema, rashes, ecchymosis, peripheral neuropathy, or muscle/joint/bone pain. Vitals, labs and meds reviewed ECOG: Performance Status 1 = 80-90% Symptoms but nearly ambulatory Current Outpatient Medications Medication Sig Dispense Refill [...] nights.Repeat with each treatment. 30 Tablet 3 Amoxicillin-Pot Clavulanate 875-125 MG Oral Tablet (Augmentin) 1 Tablet in the morning and 1 Tabletbefore bedtime. Enoxaparin Sodium 80 MG/0.8ML Injection Solution Prefilled Syringe (Lovenox) Inject 80 mg under theskin in the morning and 80 mg before bedtime. 8 mL 2 No current facility-administered medications for this visit. REVIEW OF SYSTEMS: See interval history, otherwise within normal limits OBJECTIVE: BP 136/90 | Pulse 69 | Temp 36.2 C (97.1 F) (Tympanic) | Resp 15 | Ht 1.803 m (5' 10.98") | Wt 101.3 kg (223 lb 4.8 oz) | SpO2 99% Comment: RA | BMI 31.16 kg/m | BSA 2.25 m Wt Readings from Last 5 Encounters: 10/24/23 101.3 kg (223 lb 4.8 oz) 10/03/23 98.3 kg (216 lb 11.2 oz) 09/27/23 97.1 kg (214 lb) 09/23/23 97.2 kg (214 lb 4.8 oz) 09/12/23 98.4 kg (216 lb 14.4 oz) PHYSICAL EXAM: General Appearance: Normal - Healthy appearing patient in no acute distress, cooperative and pleasant HEENT: No oral or pharyngeal masses, ulceration or thrush noted, no sinus tenderness. Left facial droop dry buccalmucosa Lymph Nodes: Normal - No palpable lymph nodes in the neck or supraclavicular areas Lungs/Thorax: Normal respiratory effort, no wheezing, rales or rhonchi Heart: Normal - Regular rate and rhythm, normal S1, S2, no appreciable murmurs, rubs, gallops Pulses/Extremities: Normal - 2+ throughout and symmetrical, no edema Abdomen: Normal - Soft, nontender, bowel sounds present, no appreciable hepatosplenomegaly, no palpable masses Musculoskeletal: Normal - No pain on palpation over bony prominence, no joint or bony deformity Neurologic: Normal - Grossly intact, appropriate behavior IMAGING Relevant Diagnostic Tests and/or Laboratory Data Author Dimas [facility] August 20, 2023 1:34pm Report Date/Time August 20, 2023 1:36pm [place], [place] [phone] Magnetic Resonance Report Patient: SERENA BROTHERS Admit Date: 08/20/23 MR#: [id number] Address1: [address] [place], [place] [address] Acct ID:[id number] Address2: Date: 1970 [facility] Zip: [place] [address] Age: 53 Location: [facility] Sex: M Room/Bed: [facility] 113 Att Phy: Stuart Hernandez MD Diagnosis: CVA Keesha Phy: Matthew Spivey PA-C Service Date: 08/20/23 Fam Phy: Interpreting Phy: Dimas Tran MD Admit Phy: Anthony Dawn MD Ordering Phy: Anthony Dawn MD cc: ~ MRI OF THE BRAIN WITHOUT CONTRAST CLINICAL HISTORY: Slurred speech. Left-sided facial droop. Cerebrovascular accident. COMPARISON STUDY: Head CT and CTA of the head performed earlier today. TECHNIQUE: Utilizing a 1.5 Kailey magnet and dedicated coil, multiplanar, multiecho imaging of the brain was performed without IV contrast. FINDINGS: There is a 4.8 x 3.1 cm focus of restricted diffusion within the rightfrontotemporal region, within the anterior right MCA territory. This is hypointense on the ADC map consistent with acute infarct. Corresponding FLAIR signal abnormality is noted with mild gyral swelling. There is minimal mass effect. There is no evidence for hemorrhagic conversion. Smaller foci of acute infarction within the right frontal lobe are also present. Note is made of a small focus of cortical T2 hyperintensity within the left frontoparietal region shown on coronal FLAIR image . There is associated gyral T1 hyperintensity suggestive of laminar necrosis. This focus does not demonstrate significant restricted diffusion. There is a small adjacent T2 hyperintense focus within the posterior left frontal lobe on axial diffusion-weighted sequence image . Ventricular system is unremarkable.Basal cisterns are patent. There are no extra axial collections. Calvarial signal is unremarkable. IMPRESSION: 1. 4.8 x 3.1 cm focus of restricted diffusion within the right frontotemporal region consistent with an acute right MCA territory infarct. Adjacent smaller acute infarcts within the right frontal lobe. Minimal mass effect with gyral swelling. No hemorrhagic conversion. The findings on this study raise the possibility of an embolic etiology. This finding will be called/faxed to the ordering provider at time of dictation. 2. Small focus of cortical signal abnormality within the left frontoparietal region with associatedlaminar necrosis. This favors a subacute to chronic infarct. LABS: Results for orders placed or performed in visit on 10/22/23 MAGNESIUM Result Value Ref Range Magnesium 2.0 1.5 - 2.6 mg/dL PHOSPHORUS Result Value Ref Range Phosphorus 2.7 2.5 - 4.8 mg/dL MYCODE SST1 Result Value Ref Range MyCode Specimen Freezing of extracted DNA, whole blood and/or serum. MYCODE SST2 Result Value Ref Range MyCode Specimen Freezing of extracted DNA, whole blood and/or serum. Results for orders placed or performed in visit on 10/24/23 MAGNESIUM Result Value Ref Range Magnesium 2.1 1.5 - 2.6 mg/dL PHOSPHORUS Result Value Ref Range Phosphorus 3.7 2.5 - 4.8 mg/dL COMPREHENSIVE METABOLIC PANEL Result Value Ref Range BUN 15 6 - 20 mg/dL Creatinine 0.8 0.6 - 1.2 mg/dL Estimated Glomerular Filtration Rate >90 >=60 mL/min Sodium 138 135 - 146 mmol/L Potassium 3.5 3.5 - 5.1 mmol/L Chloride 101 98 - 107 mmol/L CO2 26 22 - 32 mmol/L Anion Gap 11 7 - 15 mmol/L Glucose 152 (H) 70 - 120 mg/dL Albumin 4.5 3.8 - 5.0 g/dL AST 30 10 - 50 U/L Alkaline Phosphatase 82 35 - 130 U/L Bilirubin, Total 0.4 <=1.2 mg/dL Calcium 8.8 8.4 - 10.2 mg/dL Protein 6.9 6.0 - 8.3 g/dL ALT 98 (H) 10 - 50 U/L TSH Result Value Ref Range TSH 0.77 0.27 - 4.20 uIU/mL CBC Result Value Ref Range WBC 16.68 (H) 4.00 - 10.80 K/uL RBC 4.31 4.50 - 5.25 M/uL HGB 13.9 (L) 14.0 - 16.8 g/dL HCT 40.6 40.0 - 48.4 % MCV 94.2 82.0 - 99.5 fL MCH 32.3 27.0 - 34.0 pg MCHC 34.2 32.0 - 36.0 g/dL RDW 16.5 11.5 - 15.5 % PLT 190 140 - 400 K/uL MPV 10.2 6.6 - 11.1 fL nRBCs 0 <=0 /100 WBCs DIFFERENTIAL, AUTOMATED Result Value Ref Range WBC 16.68 (H) 4.00 - 10.80 K/uL Neutrophils % 78.6 (H) 40.0 - 75.0 % Lymphocytes % 10.2 (L) 18.0 - 42.0 % Monocytes % 2.9 1.0 - 11.0 % Eosinophils % 0.1 0.0 - 6.0 % Basophils % 0.6 0.0 - 2.0 % Immature Granulocytes % 7.6 (H) 0.0 - 2.0 % Absolute Neutrophils 13.11 (H) 1.80 - 7.70 K/uL Absolute Lymphocytes 1.70 1.00 - 4.80 K/ul Absolute Monocytes 0.49 0.00 - 1.10 K/uL Absolute Eosinophils 0.01 0.00 - 0.70 K/uL Absolute Basophils 0.10 0.00 - 0.20 K/uL Absolute Immature Granulocytes 1.27 (H) 0.00 - 0.20 K/uL I had a discussion with Serena Brothers regarding the plan of care, treatment and other issues. Patient was educated on signs and symptoms of concern and were instructed to call our office should theyexperience any. Patient expressed an understanding, all questions were addressed. Please, see top of note for IMPRESSION and PLAN. DENISE Allen documented in this encounter Nursing Notes * Sarai Mark CNA - 10/24/2023 8:12 AM EST Patient was instructed to not get up on the exam table/exam chair until directed and assisted by their provider; patient is to remain seated in the chair/ wheelchair/ exam table/ exam chair for fall prevention and safety reasons. Patient is aware to have assistance to step down off exam table/exam chair with personnel. Patient voiced full comprehension of instructions. Room 17 documented in this encounter Plan of Treatment Upcoming Encounters Date Type Department Care Team (Latest Contact Info) Description 10/30/2023 6:15 AM EST Anticoagulation Pharmacy Call Center WB [phone] [place] [phone] [facility], [facility] 58 60 [facility] [place] [phone] 10/30/2023 11:20 AM EST Office Visit [facility] [address] [place] [address] Kathy Pryor PA-C [address] [place] [address] 11/01/2023 10:00 AM EST Rehab Services Speech Therapy, [place] [address] [place] [address] Lisa Hairston, HISTOLOGIST [address] [place] [address] 11/05/2023 6:15 AM EST Hospital Encounter MRI, [address] [id number] Canceled (Clinician Appt Cancel Appt Not Needed) 11/15/2023 9:40 AM EST Office Visit [facility] [address] [place] [address] Matthew Spivey PA-C [address] [place] [address] 11/18/2023 7:30 AM EST NeuroDiagnostic Study Neurophysiology, [address] [id number] 1, Neurophys Tech [facility] [address] [place], [place] [phone] 11/21/2023 7:20 AM EST Laboratory Laboratory Hem/Onc [facility], [place] [address] [place] [phone] [place], Lab Med4 [facility] [place] [address] 11/21/2023 8:00 AM EST Office Visit Hematology Oncology [facility], [place] [address] [place] [phone] Nicole Carrillo PA-C [facility] [place] [address] 11/21/2023 9:00 AM EST Hem/Onc Treatment Hematology Oncology [facility], [address] [phone] [place], Chair 4 Hem/Onc [address] [place] [address] 12/04/2023 11:00 AM EST Office Visit Cardiology, [facility] [address] [place] [address] Santa Quintero CRNP [address] [place] [address] 12/12/2023 8:45 AM EST Nurse Only Hematology Oncology [address] [phone] [place], Nurse Lab Hem/Onc [address] [place] [address] 12/12/2023 9:30 AM EST Office Visit Hematology Oncology [address] [phone] Kerri Foote MD [facility] [place] [address] 12/12/2023 10:30 AM EST Hem/Onc Treatment Hematology Oncology [address] [address] [place], Chair 4 Hem/Onc [address] [place] [address] Health Maintenance Due Date Last Done Comments [...] this encounter Medical Devices Implanted Type Area Metal Stud Framer Device Identifier Shelf Expiration Date Model / Serial / Lot Power Port 8fr Sngl Lumen Plas - [id number] Implanted:Qty: 1 on 04/24/2021 at [facility] CR BARD : PERIPHERAL VASCULAR [id number] 02/24/2022 [id number] / / [id number] Port Implant W/8f Poly Cath - [id number] Implanted:Qty: 1 on 10/15/2023 at [facility] CR BARD : PERIPHERAL VASCULAR [id number] 03/27/2025 [id number] / / [id number] documented as of this encounter Visit Diagnoses Diagnosis Malignant neoplasm of lower lobe, left bronchus or lung (HCC)- Primary History of pulmonary embolism Personal history of pulmonary embolism Neuropathy due to chemotherapeutic drug Polyneuropathy due to drugs Balance problem Other symptoms involving nervous and musculoskeletal systems documented in this encounter Additional Health Concerns [...] the patient have Health Care Power of Tire Fabricator? No Code Status History Code Status Date Activated Date Inactivated Comments Full Code 05/23/2021 12:21 PM 05/24/2021 9:38 PM This order reflects the patients wishes and were consensually agreed upon. Question Answer Comments Discussion of Advance Directives occurred with: Patient Healthcare Agents on File Name Relationship Healthcare Agent [facility] p Communication Rose Mary Brothers Spouse Health Care Agent [id number] (Mobile) Care Teams Colors Custodian Relationship Specialty Start Date End Date Matthew Spivey PA-C [address] [place] [address] PCP - General Physician Juvenile Justice Specialist 03/22/21 documented as of this encounter
--- OUTSIDE RECORDS SUMMARY | 2024-04-11 14:58 | External Medical Summary | Summary of Care ---
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) Matthew Herrmann PA-C [address] [place] [address] Referral ID Status Reason Start Date Expiration Date Visits Requested Visits Authorized [id number] Authorized Specialty Services Required 06/11/2023 06/11/[phone] Encounter Details Date Type Department Care Team (Latest Contact Info) Description 10/24/2023 9:00 AM EST Hem/Onc Treatment Hematology Oncology [facility], [facility] [address] [place] [address] [facility], [facility] 4 Hem/Onc [facility] [address] [place], [place] [phone] Non-small cell lung cancer metastatic to bone [...] mRNA, LNP-s, No Pre serve, 2-Dose Series ([employer]) 09/23/2021 documented as of this encounter Social [...] Call Center WB [phone] [address] [facility] 58 60 [facility] [place] [phone] 10/30/2023 11:20 AM EST Office Visit Neurology [facility] [address] [place] [address] Kathy Pryor PA-C [address] [place] [address] 11/01/2023 10:00 AM EST Rehab Services Speech Therapy, [address] [address] Lisa Hairston, WHEEL LOADER OPERATOR [address] [place] [address] 11/05/2023 6:15 AM EST Hospital Encounter MRI, [address] [id number] Canceled (Clinician Appt Cancel Appt Not Needed) 11/15/2023 9:40 AM EST Office Visit [facility] [address] [place] [phone] Matthew Herrmann PA-C [address] [place] [address] 11/18/2023 7:30 AM EST NeuroDiagnostic Study Neurophysiology, [address] [id number] 1, Neurophys Tech [address] [place], [place] [phone] 11/21/2023 7:20 AM EST Laboratory Laboratory Hem/Onc [facility], [place] [address] [place] [phone] [facility], [facility] Med [address] [place], [place] [phone] 11/21/2023 8:00 AM EST Office Visit Hematology Oncology [facility], [place] [address] [place] [phone] Nicole Carrillo PA-C [facility] [address] [place], [place] [phone] 11/21/2023 9:00 AM EST Hem/Onc Treatment Hematology Oncology [facility], [place] [address] [place], [place] [phone] [place], Chair 4 Hem/Onc [facility] [place] [address] 12/04/2023 11:00 AM EST Office Visit Cardiology, [facility] [address] [place] [address] Santa Quintero CRNP [address] [place] [address] 12/12/2023 8:45 AM EST Nurse Only Hematology Oncology [facility], [place] [address] [place] [address] [place], Nurse Lab Hem/Onc [address] [place] [address] 12/12/2023 9:30 AM EST Office Visit Hematology Oncology [facility], [place] [address] [place] [phone] Kerri Foote MD [facility] [place] [address] 12/12/2023 10:30 AM EST Hem/Onc Treatment Hematology Oncology [facility], [place] [address] [place] [address] [place], Chair 4 Hem/Onc [address] [place] [address] Scheduled Orders Name Type Priority Associated Diagnoses [...] this encounter Medical Devices Implanted Type Area Manager Site Device Identifier Shelf Expiration Date Model / Serial / Lot Power Port 8fr Sngl Lumen Plas - [id number] Implanted:Qty: 1 on 04/24/2021 at [facility] CR BARD : PERIPHERAL VASCULAR [id number] 02/24/2022 [id number] / / [id number] Port Implant W/8f Poly Cath - [id number] Implanted:Qty: 1 on 10/15/2023 at [facility] CR BARD : PERIPHERAL VASCULAR [id number] 03/27/2025 [id number] / / [id number] documented as of this encounter Results * (ABNORMAL) HEPARIN, LOW MOLECULAR WEIGHT (10/24/2023 9:50 AM EST) Heparin, Low Molecular Weight 1.10(H) <0.10 IU/mL 10/24/2023 10:25 AM EST LAB[facility] Comment:Low molecular weight heparin's therapeutic range is 0.6 - 1.00 I.U./mL. Blood Venous blood specimen / Unknown Venipuncture / Unknown 10/24/2023 9:50 AM EST 10/24/2023 9:58 AM EST Kerri Foote MD LAB BLOOD ORDERAB LES [facility] [address] [place] [address] documented in this encounter Visit [...] the patient have Health Care Power of Floor Specialist? No Code Status History Code Status Date Activated Date Inactivated Comments Full Code 05/23/2021 12:21 PM 05/24/2021 9:38 PM This order reflects the patients wishes and were consensually agreed upon. Question Answer Comments Discussion of Advance Directives occurred with: Patient Healthcare Agents on File Name Relationship Healthcare Agent [facility] p Communication Rose Mary Brothers Spouse Health Care Agent Care Teams Hot Man Relationship Specialty Start Date End Date Matthew Herrmann PA-C [address] [place] [address] PCP - General Physician Java Web Architect 03/22/21 documented as of this encounter
--- OUTSIDE RECORDS SUMMARY | 2024-04-11 14:58 | External Medical Summary | Summary of Care ---
Author Name Unknown Organization [facility] Address [address] [place] [address] Phone [phone] Care Team Providers Care Boiler Room Helper Name Role Phone Matthew Herrmann PA-C Primary Care Provider [phone] Reason for Visit * Reason Comments Trouble Swallowing * Evaluate & Treat - Unlimited Visits (Within 10 days (routine)) - Authorized Specialty Diagnoses / Procedures Referred By Yuli t Referred To Contact Speech Pathology Diagnoses Dysphagia, unspecified Yonathan Tomas CRNP [address] [place] [address] Referral ID Status Reason Start Date Expiration Date Visits Requested Visits Authorized [id number] Authorized Specialty Services Required 10/04/2023 03/03/2024 15 15 Encounter Details Date Type Department Care Team (Latest Contact Info) Description 10/18/2023 11:00 AM EST Rehab Services Speech Therapy, [facility] [address] [place] [address] Lisa Hairston, LOCKSTITCH COLLAR SETTER [address] [address] Dysphagia, unspecified type* Allergies Active Allergy Reactions Criticality Noted Date Comments Carboplatin High 11/14/2021 Dyspnea, chest pain, hypoxia, sore throat, edema throat, flushing, mild hypotension Isosorbide Nitrate Other (Please comment) 07/22/2023 Headache documented as of this encounter (statuses as of 10/18/2023) Medications Medication Sig Dispensed Refills Start Date [...] as of this encounter (statuses as of 10/18/2023) Active Problems Problem Noted Date Diagnosed Date [...] as of this encounter (statuses as of 10/18/2023) Resolved Problems Problem Noted Date Diagnosed Date Resolved Date Prediabetes 09/22/2021 08/09/2022 MSSA bacteremia 08/01/2021 08/07/2021 Sepsis 08/01/2021 08/07/2021 COPD, group B, by GOLD 2017 classification 05/08/2021 06/21/2021 Overview: Per COPD GOLD Classification Obstructive lung disease 04/10/2021 Overview: Per COPD GOLD Classification documented as of this encounter (statuses as of 10/18/2023) Immunizations Name Administration Dates Next Due COVID-19 mRNA, LNP-s, No Pre serve, 2-Dose Series (Jumio) 09/23/2021 documented as of this encounter Social [...] this encounter Progress Notes * Lisa Hairston, LOCKSTITCH COLLAR SETTER - 10/18/2023 5:25 PM EST OUTPATIENT REHABILITATION SPEECH-LANGUAGE PATHOLOGY DAILY PROGRESS NOTE Speech Therapy, [place] [id number] [facility] [address] John [place] [id number] Visit Number 2 of 15 Authorization number: AUTH# [id number] Date: 10/18/2023 Time: 8495-2275 Plan of Care Expiration Date: 12/20/2023 Encounter Diagnosis: R13.10 Dysphagia, unspecified Precautions: Chemo treatment, immunocompromised Treatment Type: Individual Short Term Treatment Goals: (To be met by: 12/20/2023) 1) John will improve use of compensatory swallowing strategies to minimize signs and symptoms of dysphagia to less than 10% of trials. Comments: John indicated that effortful swallow has been beneficial in reducing coughing during intakes. Today he tolerated 8 ounces of thin water and applesauce with less throat clearing less than 5% of trials. 2) John will improve oral stage function via facilitative techniques (buccal resistance, labial resistance) as evidenced by no anterior spillage or buccal pocketing over 2 consecutive sessions. Comments: John is completing buccal pulls and labial resistance exercises and both he and his daughter report less anterior spillage at home. John had no anterior spillage this date. Goal met over 1 session. 3) John will improve pharyngeal stage function via facilitative techniques including effortful swallow and rianna maneuver with less than 10% signs and symptoms of aspiration/ penetration over 2consecutive sessions. Comments: Reviewed, demonstrated (visual and tactile) and provided written description of effortfulswallow, rianna maneuver, and chin tuck against resistance. John completed all with persistentdifficulty with laryngeal elevation and hold for rianna although improved over consecutive attempts with clinician providing tactile model in unison with patient performing. John exhibited less than 10% signs and symptoms of aspiration/penetration for water and puree consistency in treatment today. Plan: Swallowing Treatment: Indicated 1 days/week, 45-60 minutes/session x 10 week(s) Lisa Hairston MS, CCC-LOCKSTITCH COLLAR SETTER 10/18/2023 documented in this encounter Plan of Treatment Upcoming Encounters Date Type Department Care Team (Late st Contact Info) Description 10/23/2023 6:15 AM EST Anticoagulation Pharmacy Call Center WB [phone] [facility] [place] [address] [facility], [facility] 58 60 [facility] [place] [address] 10/24/2023 7:20 AM EST Laboratory Laboratory Hem/Onc [facility], [place] [address] [place] [address] [place], Lab Med4 [address], [place] [phone] 10/24/2023 8:00 AM EST Office Visit Hematology Oncology [facility] [place] [address] [place] [address] Yanni Yao CRNP [address], [place] [phone] 10/24/2023 9:00 AM EST Hem/Onc Treatment Hematology Oncology [facility] [place] [address], [place] [phone] [place], Chair 4 Hem/Onc [address], [place] [phone] 10/30/2023 11:20 AM EST Office Visit Neurology [facility] 200 [facility] [place] [address] Kathy Pryor PA-C [address] [place] [address] 11/01/2023 10:00 AM EST Rehab Services Speech Therapy, [place] [address] [place] [address] Lisa Hairston, LOCKSTITCH COLLAR SETTER [address] [place] [address] 11/05/2023 6:15 AM EST Hospital Encounter MRI, [address] [address] 11/05/2023 8:00 AM EST Appointment MRI, [address] [address] 11/15/2023 9:40 AM EST Office Visit [facility] [address] [place] [address] Matthew Herrmann PA-C [address] [place] [address] 11/18/2023 7:30 AM EST NeuroDiagnostic Study Neurophysiology, [address] [id number] 1, Neurophys Tech [address] [place] [address] [id number] 11/21/2023 7:20 AM EST Laboratory Laboratory Hem/Onc [facility], [address] [phone] [place], Lab Med4 [address] [place] [phone] 11/21/2023 8:00 AM EST Office Visit Hematology Oncology [facility], [address] [phone] Nicole Carrillo PA-C [address] [place] [address] [phone] 11/21/2023 9:00 AM EST Hem/Onc Treatment Hematology Oncology [facility], [address] [phone] [place], Chair 4 Hem/Onc [address] [place] [address] [phone] 12/04/2023 11:00 AM EST Office Visit Cardiology, [facility] 132 [facility] [place] [address] Santa Quintero, NAPPER TENDER [address] [place] [address] Health Maintenance Due Date Last Done Comments [...] encounter Medical Devices Implanted Type Area Field Advisor Device Identifier Shelf Expiration Date Model / Serial / Lot Power Port 8fr Sngl Lumen Plas - [id number] Implanted:Qty: 1 on 04/24/2021 at [facility] CR BARD : PERIPHERAL VASCULAR [id number] 02/24/2022 [id number] / / [id number] Port Implant W/8f Poly Cath - [id number] Implanted:Qty: 1 on 10/15/2023 at [facility] CR BARD : PERIPHERAL VASCULAR [id number] 03/27/2025 [id number] / / [id number] documented as of this encounter Visit Diagnoses Diagnosis Dysphagia, unspecified type- Primary documented in this encounter Additional Health [...] the patient have Health Care Power of Beaver Trapper? No Code Status History Code Status Date Activated Date Inactivated Comments Full Code 05/23/2021 12:21 PM 05/24/2021 9:38 PM This order reflects the patients wishes and were consensually agreed upon. Question Answer Comments Discussion of Advance Directives occurred with: Patient Healthcare Agents on File Name Relationship Healthcare Agent [facility] p Communication Rose Mary Brothers Spouse Health Care Agent Care Teams Boiler Room Helper Relationship Specialty Start Date End Date Matthew Herrmann PA-C [address] [place] [address] PCP - General Physician Music Publisher 03/22/21 documented as of this encounter
--- OUTSIDE RECORDS SUMMARY | 2024-04-11 14:58 | External Medical Summary | Summary of Care ---
Author Name Unknown Organization [facility] Address [address] [place] [address] Phone [phone] Care Team Providers Care Drier Name Role Phone Matthew Herrmann PA-C Primary Care Provider [phone] Reason for Visit * Evaluate & Treat - Unlimited Visits (Within 30 days (routine)) - Authorized Specialty Diagnoses / Procedures Referred By Yuli seay Referred To Contact Hematology/Oncology / Hematology Oncology Diagnoses 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) Matthew Herrmann PA-C [address] [place] [address] Referral ID Status Reason Start Date Expiration Date Visits Requested Visits Authorized [id number] Authorized Specialty Services Required 06/11/2023 06/11/[phone] Encounter Details Date Type Department Care Team ([facility] st Contact Info) Description 10/24/2023 7:30 AM EST Nurse Only Hematology Oncology [facility] [place] [address] [place] [address] [place], Nurse Lab Hem/Onc [address], [place] [phone] Arrived Allergies Active Allergy Reactions Criticality Noted [...] mRNA, LNP-s, No Pre serve, 2-Dose Series (Innoviti) 09/23/2021 documented as of this encounter Social [...] Care Team (Late st Contact Info) Description 10/24/2023 9:00 AM EST Hem/Onc Treatment Hematology Oncology [facility], [address] [place] [address] [place], Chair 4 Hem/Onc [address] [place] [address] [phone] Arrived 10/30/2023 6:15 AM EST Anticoagulation Pharmacy Call Center WB [phone] [facility] [place] [address] [facility], [facility] 58 60 [facility] [place] [address] 10/30/2023 11:20 AM EST Office Visit Neurology [facility] 200 [facility] [place] [address] Kathy Pryor PA-C 200 [facility] [place] [address] 11/01/2023 10:00 AM EST Rehab Services Speech Therapy, [address] [address] Lisa Hairston, HIM CODER [address] [place] [address] 11/05/2023 6:15 AM EST Hospital Encounter MRI, [address] [address] 11/05/2023 8:00 AM EST Appointment MRI, [address] [address] 11/15/2023 9:40 AM EST Office Visit [facility] [address] [place] [phone] Matthew Herrmann PA-C [address] [place] [address] 11/18/2023 7:30 AM EST NeuroDiagnostic Study Neurophysiology, [address] [address] 1, Neurophys Tech [address] [place] [address] 11/21/2023 7:20 AM EST Laboratory Laboratory Hem/Onc [facility], [place] [address] [place] [phone] [place], Lab Med4 [address] [place], [place] [phone] 11/21/2023 8:00 AM EST Office Visit Hematology Oncology [facility], [place] [address] [place] [address] Nicole Carrillo PA-C [address] [place] [address] 11/21/2023 9:00 AM EST Hem/Onc Treatment Hematology Oncology [facility], [place] [address] [place], [place] [phone] [place], Chair 4 Hem/Onc [facility] [address] [place], [place] [phone] 12/04/2023 11:00 AM EST Office Visit Cardiology, [facility] [address] [place] [address] Santa Quintero CRNP [address] [place] [address] Pending Results Name Type Priority Associated Diagnoses Date /Time TSH Lab Routine Malignant neoplasm of lower lobe, left bronchus or lung (HCC) 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) 10/24/2023 7:51 AM EST MAGNESIUM Lab STAT Primary malignant neoplasm of left lower lobe of lung (HCC) 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) 10/24/2023 7:51 AM EST PHOSPHORUS Lab STAT Primary malignant neoplasm of left lower lobe of lung (HCC) Non-small cell lung cancer metastatic to bone (HCC) 10/24/2023 7:51 AM EST COMPREHENSIVE METABOLIC PANEL Lab STAT Malignant neoplasm of lower lobe, left bronchus or lung (HCC) 10/24/2023 7:51 AM EST Scheduled Orders Name Type Priority Associated Diagnoses Orde r Schedule TSH Lab Routine Malignant neoplasm of lower lobe, left bronchus [...] encounter Medical Devices Implanted Type Area Electrical Engineering Technician Device Identifier Shelf Expiration Date Model / Serial / Lot Power Port 8fr Sngl Lumen Plas - [id number] Implanted:Qty: 1 on 04/24/2021 at [facility] CR BARD : PERIPHERAL VASCULAR [id number] 02/24/2022 [id number] / / [id number] Port Implant W/8f Poly Cath - [id number] Implanted:Qty: 1 on 10/15/2023 at [facility] CR BARD : PERIPHERAL VASCULAR [id number] 03/27/2025 [id number] / / [id number] documented as of this encounter Procedures Procedure Name Priority Date/Time Associated Diagnosis Comments DIFFERENTIAL, AUTOMATED STAT 10/24/2023 7:51 AM EST Malignant neoplasm of lower lobe, left bronchus or lung (HCC) CBC STAT 10/24/2023 7:51 AM EST Malignant neoplasm of lower lobe, left bronchus or lung (HCC) CBC STAT 10/24/2023 7:51 AM EST Malignant neoplasm of lower lobe, left bronchus or lung (HCC) documented in this encounter Results * (ABNORMAL) DIFFERENTIAL, AUTOMATED (10/24/2023 7:51 AM EST) WBC 16.68(H) 4.00 - 10.80 K/uL 10/24/2023 7:55 AM EST [facility]ORY [facility] Neutrophils % 78.6(H) 40.0 - 75.0 % 10/24/2023 7:55 AM EST LABORATORY [facility] Lymphocytes % 10.2(L) 18.0 - 42.0 % 10/24/2023 7:55 AM EST LABORATORY [facility] Monocytes % 2.9 1.0 - 11.0 % 10/24/2023 7:55 AM EST LABORATORY [facility] Eosinophils % 0.1 0.0 - 6.0 % 10/24/2023 7:55 AM EST LABORATORY [facility] Basophils % 0.6 0.0 - 2.0 % 10/24/2023 7:55 AM EST LABORATORY [facility] Immature Granulocytes % 7.6(H) 0.0 - 2.0 % 10/24/2023 7:55 AM EST LABORATORY [facility] Absolute Neutrophils 13.11(H) 1.80 - 7.70 K/uL 10/24/2023 7:55 AM EST LABORATORY [facility] Absolute Lymphocytes 1.70 1.00 - 4.80 K/ul 10/24/2023 7:55 AM EST LABORATORY [facility] Absolute Monocytes 0.49 0.00 - 1.10 K/uL 10/24/2023 7:55 AM EST LABORATORY [facility] Absolute Eosinophils 0.01 0.00 - 0.70 K/uL 10/24/2023 7:55 AM EST LABORATORY [facility] Absolute Basophils 0.10 0.00 - 0.20 K/uL 10/24/2023 7:55 AM EST LABORATORY [facility] Absolute Immature Granulocytes 1.27(H) 0.00 - 0.20 K/uL 10/24/2023 7:55 AM EST LABORATORY [facility] Blood Blood sample taken from central line / Unknown Central Line / Unknown 10/24/2023 7:51 AM EST 10/24/2023 7:52 AM EST Kerri Foote MD LAB BLOOD ORDERAB LES LABORATORY [facility] [address] [place] [address] * (ABNORMAL) CBC (10/24/2023 7:51 AM EST) WBC 16.68(H) 4.00 - 10.80 K/uL 10/24/2023 7:55 AM EST LABORATORY [facility] RBC 4.31 4.50 - 5.25 M/uL 10/24/2023 7:55 AM EST LABORATORY [facility] HGB 13.9(L) 14.0 - 16.8 g/dL 10/24/2023 7:55 AM EST LABORATORY [facility] HCT 40.6 40.0 - 48.4 % 10/24/2023 7:55 AM EST LABORATORY [facility] MCV 94.2 82.0 - 99.5 fL 10/24/2023 7:55 AM EST LABORATORY [facility] MCH 32.3 27.0 - 34.0 pg 10/24/2023 7:55 AM EST LABORATORY [facility] MCHC 34.2 32.0 - 36.0 g/dL 10/24/2023 7:55 AM EST LABORATORY [facility] RDW 16.5 11.5 - 15.5 % 10/24/2023 7:55 AM EST LABORATORY [facility] PLT 190 140 - 400 K/uL 10/24/2023 7:55 AM EST LABORATORY [facility] MPV 10.2 6.6 - 11.1 fL 10/24/2023 7:55 AM EST LABORATORY [facility] nRBCs 0 <=0 /100 WBCs 10/24/2023 7:55 AM EST LABORATORY [facility] Blood Blood sample taken from central line / Unknown Central Line / Unknown 10/24/2023 7:51 AM EST 10/24/2023 7:52 AM EST Kerri Foote MD LAB BLOOD ORDERAB LES LABORATORY [facility] [address] [place] [address] documented in this encounter Visit Diagnoses Diagnosis [...] the patient have Health Care Power of Document Review Specialist? No Code Status History Code Status Date Activated Date Inactivated Comments Full Code 05/23/2021 12:21 PM 05/24/2021 9:38 PM This order reflects the patients wishes and were consensually agreed upon. Question Answer Comments Discussion of Advance Directives occurred with: Patient Healthcare Agents on File Name Relationship Healthcare Agent [facility] p Communication Rose Mary Brothers Spouse Health Care Agent Care Teams Drier Relationship Specialty Start Date End Date Matthew Herrmann PA-C [address] [place], [place] [id number] PCP - General Physician Grain Distributor 03/22/21 documented as of this encounter
--- OUTSIDE RECORDS SUMMARY | 2024-04-11 14:58 | External Medical Summary ---
Author Name Unknown Address Unknown Organization K01:LABORATORY [facility] [place] [address] [place] [address] Laboratory Report Ordering Provider Test Date Status CAIN STEELEBRITTANY 10/24/2023 07:51:49 Final Observation Date Value Abnormality Reference (Units ) Status Magnesium 10/24/2023 07:51:49 2.1 1.5-2.6 (m g/dL) Final Performing Location LABORATORY [facility] - [address] [place] [address]
--- OUTSIDE RECORDS SUMMARY | 2024-04-11 14:58 | External Medical Summary ---
Author Name Unknown Address Unknown Organization K01:[place] [address] [facility] [address] Laboratory Report Ordering Provider Test Date Status JOSE STEELE 10/24/2023 07:51:49 Final Observation Date Value Abnormality Reference (Units ) Status SYNC LEUKOCYTES IN BLOOD BY AUTOMATED COUNT 10/24/2023 07:51:49 16.68 Above high normal 4.00-10.80 (K/uL) Final Segs 10/24/2023 07:51:49 78.6 Above high normal 40.0-75.0 (%) Final Lymphs % 10/24/2023 07:51:49 10.2 Below low normal 18.0-42.0 (%) Final Monos 10/24/2023 07:51:49 2.9 1.0-11.0 (%) Final Eosinophils 10/24/2023 07:51:49 0.1 0.0-6.0 (%) Final Basos 10/24/2023 07:51:49 0.6 0.0-2.0 (%) Final Immature Granulocyte, Percent 10/24/2023 07:51:49 7.6 Above high normal 0.0-2.0 (%) Final Absolute Segs 10/24/2023 07:51:49 13.11 Above high normal 1.80-7.70 (K/uL) Final Lymphs, absolute 10/24/2023 07:51:49 1.70 1.00-4.80 (K/ul) Final Monos, Abs 10/24/2023 07:51:49 0.49 0.00-1.10 (K/uL) Final Eos, Abs 10/24/2023 07:51:49 0.01 0.00-0.70 (K/uL) Final Basos, Abs 10/24/2023 07:51:49 0.10 0.00-0.20 (K/uL) Final Immature Granulocytes, Number 10/24/2023 07:51:49 1.27 Above high normal 0.00-0.20 (K/uL) Final Performing Location [facility] - [address] [facility] [place]. [facility] [place] [address]
--- OUTSIDE RECORDS SUMMARY | 2024-04-11 14:58 | External Medical Summary ---
Author Name Unknown Address Unknown Organization K01:LAB[facility]ATORY [facility] [place] [address] Laboratory Report Ordering Provider Test Date Status JOSE STEELE 10/24/2023 09:50:02 Final Observation Date Value Abnormality Reference (Units ) Status LMW Heparin [Units/volume] in Platelet poor plasma by Chromogenic method 10/24/2023 09:50:02 1.10 Above high normal <0.10 (IU/mL) Final Low molecular weight heparin 's therapeutic range is 0.6 - 1.00 I.U./mL. Performing Location LABORATORY [facility] - [address] [place] [address]
--- OUTSIDE RECORDS SUMMARY | 2024-04-11 14:58 | External Medical Summary | Summary of Care ---
Author Name Unknown Organization [facility] Address [address] [place] [address] Phone [phone] Care Team Providers Care Fur Sorter Name Role Phone Matthew Herrmann PA-C Primary Care Provider +1 [phone] Encounter Details Date Type Department Care Team (Late st Contact Info) Description 10/24/2023 Orders Only Hematology Oncology [facility] [address] [place] [address] Yanni Yao CRNP [address] [place] [address] Non-small cell lung cancer metastatic to bone (HCC)* Allergies Active Allergy Reactions Criticality Noted [...] mRNA, LNP-s, No Pre serve, 2-Dose Series (Stratasan) 09/23/2021 documented as of this encounter Social [...] AM EST Hem/Onc Treatment Hematology Oncology [facility], [place] [address] [place] [address] [place], Chair 4 Hem/Onc [facility] [place] [address] Chemotherapy adverse reaction, initial encounter*; Chemotherapy induced nausea and vomiting; Encounter for antineoplastic chemotherapy; Malignant neoplasm of lower lobe, left bronchus or lung (HCC); Non-small cell lung cancer metastatic to bone (HCC) 10/30/2023 6:15 AM EST Anticoagulation Pharmacy Call Center WB 58-60 [facility] [place] [address] [facility] 58 60 [facility] [place] [address] 10/30/2023 11:20 AM EST Office Visit Neurology [facility] Rayna Pony 200 [facility] [place] [address] Kathy Pryor PA-C 200 [facility] [place] [address] 11/01/2023 10:00 AM EST Rehab Services Speech Therapy, [address] [address] Lisa Hairston, LINE PRODUCER [address] [place] [address] 11/05/2023 6:15 AM EST Hospital Encounter MRI, [address] [address] Canceled (Clinician Appt Cancel Appt Not Needed) 11/15/2023 9:40 AM EST Office Visit [address] [phone] Matthew Herrmann PAJaquiC [address] [place] [address] 11/18/2023 7:30 AM EST NeuroDiagnostic Study Neurophysiology, [address] [address] 1, Neurophys Tech [facility] [place] [address] 11/21/2023 7:20 AM EST Laboratory Laboratory Hem/Onc [facility], [address] [phone] [place] [place] [address] 11/21/2023 8:00 AM EST Office Visit Hematology Oncology [facility], [place] [address] [place] [phone] Nicole Carrillo PA-C [address], [place] [phone] 11/21/2023 9:00 AM EST Hem/Onc Treatment Hematology Oncology [facility], [place] [address] [place], [place] [phone] [place], Chair 4 Hem/Onc [address] [place] [phone] 12/04/2023 11:00 AM EST Office Visit Cardiology, [facility] [address] [place] [address] Santa Quintero CRNP [address] [facility] [address] 12/12/2023 8:45 AM EST Nurse Only Hematology Oncology [place] [address] [place], [place] [phone] [place], Nurse Lab Hem/Onc [facility] [address] [place], [place] [phone] 12/12/2023 9:30 AM EST Office Visit Hematology Oncology [facility], [place] [address] [place] [phone] Kerri Foote MD [facility] [address] [place], [place] [phone] 12/12/2023 10:30 AM EST Hem/Onc Treatment Hematology Oncology [facility], [place] [address] [place], [place] [phone] [place], Chair 4 Hem/Onc [address] [place] [phone] Health Maintenance Due Date Last Done Comments [...] this encounter Medical Devices Implanted Type Area Stone Product Fabricator Device Identifier Shelf Expiration Date Model / Serial / Lot Power Port 8fr Sngl Lumen Plas - [id number] Implanted:Qty: 1 on 04/24/2021 at [facility] CR BARD : PERIPHERAL VASCULAR [id number] 02/24/2022 [id number] / / [id number] Port Implant W/8f Poly Cath - [id number] Implanted:Qty: 1 on 10/15/2023 at [facility] CR BARD : PERIPHERAL VASCULAR [id number] 03/27/2025 [id number] / / [id number] documented as of this encounter Visit Diagnoses Diagnosis Chemotherapy adverse reaction, initial encounter- Primary Chemotherapy induced nausea and vomiting Nausea with vomiting Encounter for antineoplastic chemotherapy Malignant neoplasm of lower lobe, left bronchus or lung (HCC) Non-small cell lung cancer metastatic to bone (HCC) Non-small cell lung cancer metastatic to bone (HCC)- Primary documented in this encounter Additional [...] the patient have Health Care Power of Dispatcher Radio? No Code Status History Code Status Date Activated Date Inactivated Comments Full Code 05/23/2021 12:21 PM 05/24/2021 9:38 PM This order reflects the patients wishes and were consensually agreed upon. Question Answer Comments Discussion of Advance Directives occurred with: Patient Healthcare Agents on File Name Relationship Healthcare Agent [facility] p Communication Rose Mary Brothers Spouse Health Care Agent Care Teams Fur Sorter Relationship Specialty Start Date End Date Matthew Herrmann PA-C [address] [place] [address] [place] [id number] PCP - General Physician Urban Renewal Manager 03/22/21 documented as of this encounter
--- OUTSIDE RECORDS SUMMARY | 2024-04-11 14:58 | External Medical Summary | Summary of Care ---
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 [place] [address] [place], [place] [phone] Non-small cell lung cancer metastatic to bone [...] mRNA, LNP-s, No Pre serve, 2-Dose Series (Lignol) 09/23/2021 documented as of this encounter Social [...] Call Center WB 58-60 Public [place] [address] [facility] 58 60 [facility] [place] [address] 10/30/2023 11:20 AM EST Office Visit Neurology [facility] [address] [place] [address] Kathy Pryor PA-C [address] [place] [address] 11/01/2023 10:00 AM EST Rehab Services Speech Therapy, [address] [address] Lisa Hairston, YARN WORKER [address] [place] [address] 11/05/2023 6:15 AM EST Hospital Encounter MRI, [address] [phone] Canceled (Clinician Appt Cancel Appt Not Needed) 11/15/2023 9:40 AM EST Office Visit [facility] [address] [place] [phone] Matthew Herrmann PA-C [address] [place] [address] 11/18/2023 7:30 AM EST NeuroDiagnostic Study Neurophysiology, [address] [phone] 1, Neurophys Tech [address], [place] [phone] 11/21/2023 7:20 AM EST Laboratory Laboratory Hem/Onc [facility], [place] [address] [place] [phone] [place], [facility] Med [address], [place] [phone] 11/21/2023 8:00 AM EST Office Visit Hematology Oncology [facility], [place] [address] [place] [phone] Nicole Carrillo PA-C [facility] [address] [place], [place] [phone] 11/21/2023 9:00 AM EST Hem/Onc Treatment Hematology Oncology [facility], [place] [address], [place] [phone] [place], Chair 4 Hem/Onc [address] [place] [address] 12/04/2023 11:00 AM EST Office Visit Cardiology, [facility] [address] [place] [address] Santa Quintero CRNP [address] [place] [address] 12/12/2023 8:45 AM EST Nurse Only Hematology Oncology [facility], [address] [address] [place], Nurse Lab Hem/Onc [address] [place] [address] 12/12/2023 9:30 AM EST Office Visit Hematology Oncology [facility], [place] [address] [place] [phone] Kerri Foote MD [facility] [place] [address] 12/12/2023 10:30 AM EST Hem/Onc Treatment Hematology Oncology [facility], [place] [address] [place] [address] [place], Chair 4 Hem/Onc [address] [place] [address] Pending Results Name Type Priority Associated Diagnoses [...] this encounter Medical Devices Implanted Type Area Fast Food Crew Member Device Identifier Shelf Expiration Date Model / Serial / Lot Power Port 8fr Sngl Lumen Plas - [id number] Implanted:Qty: 1 on 04/24/2021 at [facility] CR BARD : PERIPHERAL VASCULAR [id number] 02/24/2022 [id number] / / [id number] Port Implant W/8f Poly Cath - [id number] Implanted:Qty: 1 on 10/15/2023 at [facility] CR BARD : PERIPHERAL VASCULAR [id number] 03/27/2025 [id number] / / [id number] documented as of this encounter Visit Diagnoses [...] the patient have Health Care Power of Regional Retail Sales Manager? No Code Status History Code Status Date Activated Date Inactivated Comments Full Code 05/23/2021 12:21 PM 05/24/2021 9:38 PM This order reflects the patients wishes and were consensually agreed upon. Question Answer Comments Discussion of Advance Directives occurred with: Patient Healthcare Agents on File Name Relationship Healthcare Agent Relationshi p Communication Rose Mary Brothers Spouse Health Care Agent Care Teams Bus Matron Relationship Specialty Start Date End Date Matthew Herrmann PA-C [address] [place] [address] PCP - General Physician Anchorer 03/22/21 documented as of this encounter
--- OUTSIDE RECORDS SUMMARY | 2024-04-11 14:58 | External Medical Summary | Summary of Care ---
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); MyCode Research Other*[id number] Allergies Active Allergy Reactions Criticality Noted Date [...] mRNA, LNP-s, No Pre serve, 2-Dose Series (Achieve X) 09/23/2021 documented as of this encounter Social [...] Call Center WB 58-60 Public [place] [address] [facility] 58 60 [facility] [place] [address] 10/24/2023 7:20 AM EST Laboratory Laboratory Hem/Onc [facility], [address] [phone] [place], Lab Med4 [facility] [place] [address] 10/24/2023 8:00 AM EST Office Visit Hematology Oncology [facility], [address] [phone] Yanni Yao, DENISE [facility] [address] [place], [place] [phone] 10/24/2023 9:00 AM EST Hem/Onc Treatment Hematology Oncology [facility], [address] [phone] [place], Chair 4 Hem/Onc [address] [place] [address] [phone] 10/30/2023 11:20 AM EST Office Visit Neurology [facility] 200 [facility] [place] [address] Kathy Pryor PA-C 200 [facility] [place] [address] 11/01/2023 10:00 AM EST Rehab Services Speech Therapy, [address] [address] Lisa Hairston, CHAIRMAN & CO FOUNDER [address] [place] [address] 11/05/2023 6:15 AM EST Hospital Encounter MRI, [address] [id number] 11/05/2023 8:00 AM EST Appointment MRI, [address] [address] 11/15/2023 9:40 AM EST Office Visit [address] [address] Matthew Herrmann PA-C [address] [place] [address] 11/18/2023 7:30 AM EST NeuroDiagnostic Study Neurophysiology, [address] [phone] 1, Neurophys Tech [address] [place] [address] 11/21/2023 7:20 AM EST Laboratory Laboratory Hem/Onc [facility], [address] [phone] [place], Lab Med4 [address] [place] [address] [phone] 11/21/2023 8:00 AM EST Office Visit Hematology Oncology [facility], [address] [address] Nicole Carrillo PA-C [address] [place] [address] [phone] 11/21/2023 9:00 AM EST Hem/Onc Treatment Hematology Oncology [facility], [address] [phone] [place], Chair 4 Hem/Onc [address] [place] [phone] 12/04/2023 11:00 AM EST Office Visit Cardiology, [facility] 132 [facility] [place] [address] Santa Quintero CRNP 132 [facility] [place] [address] Pending Results Name Type Priority Associated Diagnoses Date /Time MAGNESIUM Lab STAT Primary malignant neoplasm of left lower lobe of lung (HCC) Non-small cell lung cancer metastatic to bone (HCC) 10/22/2023 11:48 AM EST PHOSPHORUS Lab STAT Primary malignant neoplasm of left lower lobe of lung (HCC) Non-small cell lung cancer metastatic to bone (HCC) 10/22/2023 11:48 AM EST MYCODE SUBSEQUENT ADULT Lab Routine [employer] Other*[id number] 10/22/2023 11:48 AM EST MYCODE SST1 Lab Routine [employer] Other*[id number] 10/22/2023 11:48 AM EST MYCODE SST2 Lab Routine [employer] Other*[id number] 10/22/2023 11:48 AM EST Health Maintenance Due Date Last [...] this encounter Medical Devices Implanted Type Area Hand Spray Operator Device Identifier Shelf Expiration Date Model / Serial / Lot Power Port 8fr Sngl Lumen Plas - [id number] Implanted:Qty: 1 on 04/24/2021 at [facility] BARD : PERIPHERAL VASCULAR [id number] 02/24/2022 [id number] / / [id number] Port Implant W/8f Poly Cath - [id number] Implanted:Qty: 1 on 10/15/2023 at [facility] CR BARD : PERIPHERAL VASCULAR [id number] 03/27/2025 [id number] / / [id number] documented as of this encounter Visit Diagnoses Diagnosis Primary malignant neoplasm of left lower lobe of lung (HCC) Malignant neoplasm of lower lobe, bronchus, or lung 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 No Code Status History Code Status Date Activated Date Inactivated Comments Full Code 05/23/2021 12:21 PM 05/24/2021 9:38 PM This order reflects the patients wishes and were consensually agreed upon. Question Answer Comments Discussion of Advance Directives occurred with: Patient Healthcare Agents on File Name Relationship Healthcare Agent [facility] Communication Rose Mary Brothers Spouse Health Care Agent Care Teams Door Builder Relationship Specialty Start Date End Date Matthew Herrmann PA-C [address] [place], [place] [address]TG white [address] PCP - General Physician Bowstring Maker 03/22/21 documented as of this encounter
--- OUTSIDE RECORDS SUMMARY | 2024-04-11 14:59 | External Medical Summary | Summary of Care ---
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) Procedures IR VENOUS ACCESS MEDIPORT DE INSJ TUNNELED CTR VAD W/SUBQ PORT AGE 5 YR OR MORE Kerri Foote MD [address] [place] [address] Referral ID Status Reason Start Date Expiration Date V isits Requested Visits Authorized [id number] Authorized Precert 10/13/2023 07/04/2026 999 999 Reason for Visit * Precert (Within 10 days (routine)) - Authorized Specialty Diagnoses / Procedures Referred By Contac t Referred To Contact Radiology Diagnoses Non-small cell lung cancer metastatic to bone (HCC) Procedures IR VENOUS ACCESS MEDIPORT DE INSJ TUNNELED CTR VAD W/SUBQ PORT AGE 5 YR OR MORE Kerri Foote MD [address] [place] [address] Referral ID Status Reason Start Date Expiration Date V isits Requested Visits Authorized [id number] Authorized Precert 10/13/2023 07/04/2026 999 999 Encounter Details Date Type Department Care Team (Latest Contact Info) Description 10/15/2023 11:46 AM EST - 10/15/2023 3:27 PM EST Hospital Encounter Radiology Waiting Room Fiorella Gomez [address] [place] [address] Grey Cho MD [address], [place] [id number] Arrived Discharge Disposition: Home - Self Care Allergies Active Allergy Reactions Criticality Noted Date Comments Carboplatin High 11/14/2021 Dyspnea, chest pain, hypoxia, sore throat, edema throat, flushing, mild hypotension Isosorbide Nitrate Other (Please comment) 07/22/2023 Headache documented as of this encounter (statuses as of 10/16/2023) Medications Medication Sig Dispensed Refills Start Date [...] as of this encounter (statuses as of 10/16/2023) Active Problems Problem Noted Date Diagnosed Date [...] as of this encounter (statuses as of 10/16/2023) Resolved Problems Problem Noted Date Diagnosed Date Resolved Date Prediabetes 09/22/2021 08/09/2022 MSSA bacteremia 08/01/2021 08/07/2021 Sepsis 08/01/2021 08/07/2021 COPD, group B, by GOLD 2017 classification 05/08/2021 06/21/2021 Overview: Per COPD GOLD Classification Obstructive lung disease 04/10/2021 Overview: Per COPD GOLD Classification documented as of this encounter (statuses as of 10/16/2023) Immunizations Name Administration Dates Next Due COVID-19 mRNA, LNP-s, No Pre serve, 2-Dose Series (Faction Skis) 09/23/2021 documented as of this encounter Social [...] Sign Reading Time Taken Comments Blood Pressure 138/95 10/15/2023 3:15 PM EST Pulse 67 10/15/2023 3:15 PM EST Temperature 35.7 C (96.3 F) 10/15/2023 2:50 PM ES T Respiratory Rate 12 10/15/2023 3:15 PM EST Oxygen Saturation 100% 10/15/2023 3:15 PM EST Inhaled Oxygen Concentration - - Weight - - Height - - Body Mass Index - - documented in this encounter Functional Status Functional [...] of this encounter Discharge Instructions * Discharge Instr - AVS* Amy Guerrero DO - 10/15/2023 2:41 PM EST Discharge Date: 10/15/2023 Provider: Dr. Grey Cho If you are experiencing any problems related to your procedure, please contact Interventional Radiology at [phone] during normal business hours: Saturday - Saturday, 8:00 am - 4:00 pm. If a problem occurs outside of normal business hours, please call the hospital grinder operator automatic at [phone] and ask for the Interventional Radiologist corrections cadet. Contact scheduling for Interventional Radiology at [phone] during normal business hours: Saturday - Saturday, 8:00 am - 4:00 pm. The information below provides you with the instructions and the list of medications you need to betaking following discharge from the hospital. If you have any questions, please ask before leaving.Please carry this letter with you when you see your doctor in the clinic. If you have questions, you can reach us at the numbers above. SPECIAL INSTRUCTIONS Mediport Insertion (Implanted Central Venous Access) A Mediport is a sealed chamber covered by a silicone disc that is surgically placed in a pocket under the skin on the upper chest, just below the collarbone. This chamber connects to a flexible tube that goes into a large vein in the neck. The tip is near the heart. The port provides direct access to the bloodstream and can be used in drawing blood samples and giving intravenous fluids and medications. Some ports allow CT scan injections; these ports are referred to as "Power Ports." The port will be visible only as a small raised area beneath your skin. Home Care If you experience pain or discomfort at the site you may use a cold pack on the site and/or take acetaminophen (Tylenol) or your preferred pain medicine as directed. Avoid contact sports or any activity that may cause blunt force impact to the port area, as it may damage your port. Avoid strenuous activity for 24 to 48 hours after the procedure. Do not lift anything heavier than 10 pounds for 3 days after the procedure. Gradually increase your activity after 24 to 48 hours after the procedure. No dressing changes or wound care are needed at the insertion site. Your wound is closed with sutures on the inside and then sealed on the outside with a special "skin glue" called Dermabond (a surgical glue). Depending on your physician's preference, there may also be "steri strips" applied. It isvery important to let these special bandages fall off on their own. Please do not scrub or pull these bandages off. You may gently wash the area with soap and water. Depending on your physician's preference, there may also be gauze and Tegaderm (clear) bandage overthe Mediport insertion site. You may remove this bandage in 24 hours. You may shower in 24 hours. Gently wash the area and pat it dry. Please DO NOT take a bath, soak in a hot tub, or swim until the wound is completely healed. Your port must be accessed and flushed/heparinized every 30 days if it is not currently being used. When to Call Interventional Radiology Call Interventional Radiology right away if you have any of the following: Fever above 100 degrees Fahrenheit Increased bleeding, redness, swelling, warmth, or discharge at the incision site. Constant or increasing pain, numbness, coldness, or tingling around the incision area. Vomiting or nausea that does not go away If at any time you experience any of the following or feel you are having a medical emergency, [id number] for emergency assistance. Chest Pain Sudden, severe shortness of breath Rapid heart rate Sudden onset of weakness Do not smoke or use tobacco products in any way! If you feel suicidal or homicidal, please call the crisis hotline at [phone] ([phone]) MODERATE SEDATION You may have received medication that made you comfortable/sedated you during your procedure. This is considered moderate sedation. This medication was given to relax you. You may also not remember having the procedure done. It may take up to 24 hours for this medication to be out of your system. Because of this, you should observe the following for the next 24 hours: Do not drink alcohol or take depressant drugs. Do not operate any type of machinery that requires hand-eye coordination. Do not sign any legal papers or documents. Do not make any financial decisions. You should be in the presence of an adult for the remainder of the day. If you are experiencing any problems related to your procedure, you should contact the Interventional Radiology physician unless otherwise directed. Driving: You may resume driving in 24h or as directed by your primary physician. Diet: You may resume your current diet as tolerated. Return to work or school: You may return to school or work 24 hours after the procedure, unless otherwise instructed by the physician. documented in this encounter Progress Notes * Kellee Almeida RN - 10/15/2023 3:23 PM EST DISCHARGE - POST INTERVENTIONAL RADIOLOGY PROCEDURE Patient meets discharge criteria for Interventional Radiology. Vital signs stable. Dressing clean, dry, and intact. IV site removed. Patient awake and oriented to pre procedure baseline. Discharge instructions given, no questions at this time. Patient tolerating liquids, with no nausea/vomiting. All belongings sent with patient. Discharged to home. Vital Signs: BP: 138/95 (10/15/23 1515) Temp: 35.7 C (96.3 F) (10/15/23 1450) Pulse: 67 (10/15/23 1515) Resp: 12 (10/15/23 1515) SpO2: 100 % (10/15/23 1515) Neurological: Gerardo Coma Scale Eyes Open: Spontaneous (10/15/23 1205) Best Verbal Response: Verbally appropriate for age (10/15/23 1205) Best Motor Response: Obeys commands appropriate for age (10/15/23 1205) Coma Score: 15 (10/15/23 1205) Activity: Four Extremities LOC: Fully Awake or Pre-Anesthetic Level of Consciousness BP: Less than (+/-) 20% Resp: Deep Breathe and Cough Freely (10/15 1445) Respiratory: Pain Assessment Flowsheet Row Most Recent Value Pain Assessment Scale [facility] Adult Scale 0-10 Pain Score 0 (no pain) * Amy Guerrero DO - 10/15/2023 2:41 PM EST PROCEDURE NOTE - Interventional Radiology [address] [address] Name: John Brothers Location: RADIOLOGY WAITING ROOM/IR Date: 10/15/2023 Time: 2:41 PM PROCEDURE: Mediport insertion SUPERVISOR HOME ECONOMICS: Dr. Grey Cho ASSISTANTS: Dr. Amy Guerrero and David CORTEZ ANESTHESIA: local and moderate sedation COMPLICATIONS: none SPECIMEN: none ESTIMATED BLOOD LOSS: negligible FINDINGS: Right chest mediport insertion documented in this encounter H&P Notes * Amy Guerrero DO - 10/15/2023 1:05 PM EST HISTORY & PHYSICAL - Vascular and Interventional Radiology Name: John Brothers Location: IR HISTORY OF PRESENT ILLNESS: John Brothers 53 year old male with history of left lower lobe lung cancer, bone metastases, stroke, and history of DVT on lovenox seen in IR today for mediport. He recently had pneumonia and is still taking antibiotics for it. SOB improved. He had a right chest Mediport in March 2021 that became infected and was removed in July 2021. Patient denies fever, chills, nausea, vomiting or diarrhea. 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 REVIEW OF SYSTEMS: Per HPI. OBJECTIVE: PHYSICAL EXAM: BP 125/84 | Pulse 57 | Temp 36.4 C (97.5 F) (Tympanic) | Resp 23 | SpO2 100% Constitutional: Awake, alert, no acute distress HEENT: Conjunctiva normal, no nasal discharge, mucous membranes moist. Neck: Midline trachea and no jugular venous distension. CV: Regular rate and rhythm. No extremity edema. Chest: Normal respiratory effort on room air. No cough. Abdomen: Nondistended, nontender. Neuro: Alert and oriented, moves extremities spontaneously. Medications, labs and imaging were reviewed. PRE-SEDATION ASSESSMENT: Level of sedation planned: Moderate Patient's allergies reviewed: Yes H&P Review / Interval Note Documentation: I have reviewed the H&P previously performed, examined the patient today, and there are no new findings. Difficulty with sedation / anesthesia: No Sleep apnea: No History of snoring: No History of difficult intubation: No Decreased ROM neck flexion/extension: No Tracheal deviation: No Decreased ability to open mouth / TMJ: No Loose teeth / dentures / partial: No Congenital deformities / abnormalities: No Dysphagia: Yes Mallampati Classification: III - soft palate, base of uvula visible Chest: Clear Heart: Regular Rhythm ASA Risk Stratification (Select One): ASA 3 - Severe systemic disease, definite functional limitations IMPRESSION/PLAN: John Brothers 53 year old male with history of left lower lobe lung cancer, bone metastases, stroke, and history of DVT on lovenox seen in IR today for mediport. Mediport insertion today. Plan to proceed under moderate sedation. documented in this encounter Procedure Notes * Jazzy Shields RN - 10/15/2023 1:09 PM ESTAssociated Order(s): Central Line - Mediport PROCEDURE NOTE [address] [address] Name: John Brothers Location: RADIOLOGY WAITING ROOM/IR Date: 10/15/2023 Time: 1:09 PM Central Line - Mediport General Information and Staff: Performed by: Amy Guerrero DO Assisted by: Ramu Mckeon RT Supervised by: Grey Cho MD Procedure Date/Time: 10/15/2023 2:00 PM Patient Location: IR Indication: Chemotherapy Patient identity confirmed: Verbally with patient and arm band Verbal confirmation: Name and date of Written consent obtained: Yes Consent given by: Patient Understanding of procedure being performed: Yes Understanding of procedure matches verbalized consent: Yes Procedure consent matches procedure scheduled: Yes Allergies reviewed: Yes Site marked: n/a Verify correct position: Yes Radiology Studies available/reviewed: yes Relevant Lab Results available/reviewed: yes Required items available: yes Other healthcare professional(s) verbalize(s) agreement with time out: Yes Time out: Immediately prior to the procedure a time out was completed Anticoagulation therapy: Yes Medication: Enoxaparin (Lovenox) Procedure Detail: Sterility Preparation: mask worn, sterile gloves worn, cap worn, sterile sheet used, sterile gown worn and full body drape Provider Hand Hygiene: antimicrobial soap and water Placement conditions: Elective Patient Position: Supine Prep: Chlorhexidine Local Anesthetic Used: Yes Catheter Type: Implanted Port Implanted Port Location: Chest Implanted Port Laterality: Right Power Port: Yes Catheter Total Length (cm): 21 Lot Number: [id number]; Exp. 03/27/2025 Number of Lumens: Single lumen Number of Needle Passes: 1 Placement: target vein identified, needle advanced into vein and blood aspirated and guidewire advanced into vein Radiologic Support with Sterile Technique: surface landmarks Identified, ultrasound guidance used and live fluoroscopy Sterile gel and probe cover used for ultrasound?: Yes Intravenous Verification: verified by ultrasound, venous blood return and live fluoroscopy Outcomes/Complications: patient tolerated procedure well with no complications Post Insertion: Post Insertion Details: all ports aspirated, all ports flushed easily and guidewire was removed, examined and appears intact Line secured with: Braided Suture Dressing applied: Other (describe) (medipore) Tip Confirmation: Radiologic Tip Location: Line Ok to use and Other Location Other: right atrium documented in this encounter Nursing Notes * Jazzy Shields RN - 10/15/2023 1:09 PM EST hat sprayer note Name: John Brothers Procedure: Mediport Insertion Patient ID band checked using two identifiers. Patient placed on procedure table in the supine position with comfort measures intact and safety strap in place. Hemodynamic monitoring initiated. Patient denies any complaints at current time. RT staff preparing patient for procedure. 1:53 PM Pre counts completed. Reevaluation statement: RN received verbal confirmation that the patient was reevaluated by Dr. Grey Cho immediately prior to the sedation at 1:54 PM . 1:54 PM Timeout performed by Dr. Grey Cho 1:56 PM 50 mcg Fentanyl administered. 1:57 PM Procedure started by Dr. Grey Cho, Dr. Guerrero and Ramu, scrubbed RT. Ultrasound utilized for anatomical analysis of patient and access needle guidance. 1% buffered lidocaine being given at the right neck. 2:06 PM Access obtained. Guidewire inserted. Imaging ongoing. 2:08 PM 50 mcg Fentanyl and 1 mg Versed administered. 1% buffered lidocaine and lidocaine with Epi being given at the right chest. 2:10 PM Incision made. 2:23 PM 50 mcg Fentanyl administered. 2:24 PM Mediport placed, see Central Line Note. Images obtained. Mediport has positive blood return, has been flushed, and locked with Heparin. 2:25 PM First closure counts completed. Counts verified and correct. 2:36 PM Final closure sutures placed. Final Count completed. Counts verified and correct. Dermabondapplied. 2:41 PM Area cleaned. Medipore dressing applied. All wires, catheters, sheaths and other devices have been inspected prior to the procedure for damage. This has been confirmed by the scrubbed RT and the operating physician. All items not intended to remain in the patient have been inspected, accounted for and have been removed from the patient atthe end of the procedure. This has been confirmed by the scrubbed RT and the operating physician. Pt did receive conscious sedation for their procedure, and was sedated from 1:56 PM to 2:43 PM. Total Medications Versed: 3 mg Fentanyl: 150 mcg 1% buffered lidocaine: 8 mL Heparin: 5 mL Please see doctor's operative note for additional details. * Ernestine Bearden RN - 10/15/2023 1:00 PM EST Attempted to contact patient to complete pre operative instructions for Interventional Radiology procedure, did not answer the phone. Message left with instructions regarding arrival time of 1200, medications and NPO status. Made aware of need for a taxi driver supervisor. Instructed to return call to IR nurse at 1 [phone] and leave a message on voicemail if necessary. Will attempt again at later time. documented in this encounter Plan of Treatment Upcoming Encounters Date Type Department Care Team (Late st Contact Info) Description 10/18/2023 11:00 AM EST Rehab Services Speech Therapy, [facility] [address] [place] [address] Lisa Hairston, CYCLE ANALYST [address] [address] 10/23/2023 6:15 AM EST Anticoagulation Pharmacy Call Center [address] [place] [address] [facility] [address] [place] [address] 10/24/2023 7:20 AM EST Laboratory Laboratory Hem/Onc [place] [address] [place] [phone] [place], Lab Med4 [address], [place] [id number] 10/24/2023 8:00 AM EST Office Visit Hematology Oncology [facility], [place] [address] [place] [phone] Yanni Yao CRNP [address], [place] [phone] 10/24/2023 9:00 AM EST Hem/Onc Treatment Hematology Oncology [facility], [place] [address], [place] [phone] [place], Chair 4 Hem/Onc [address], [place] [id number] 10/30/2023 11:20 AM EST Office Visit Neurology [facility] [place] [address] [facility] [address] Kathy Pryor PA-C [address] [facility] [place] [address] 11/01/2023 10:00 AM EST Rehab Services Speech Therapy, [address] [address] Lisa Hairston, CYCLE ANALYST [address] [place] [address] 11/05/2023 6:15 AM EST Hospital Encounter MRI, [address] [id number] 11/05/2023 8:00 AM EST Appointment MRI, [address] [address] 11/15/2023 9:40 AM EST Office Visit [address] [phone] Matthew Herrmann PA-C [address] [place] [address] 11/18/2023 7:30 AM EST NeuroDiagnostic Study Neurophysiology, [address] [id number] 1, Neurophys Tech [address] [place] [address] 11/21/2023 7:20 AM EST Laboratory Laboratory Hem/Onc [facility], [address] [phone] [place] [place] [address] 11/21/2023 8:00 AM EST Office Visit Hematology Oncology [facility], [address] [phone] Nicole Carrillo PA-C [facility] [address], [place] [phone] 11/21/2023 9:00 AM EST Hem/Onc Treatment Hematology Oncology [facility], [place] [address] [place] [facility] [address] Pacheco, Chair 4 Hem/Onc [address] [place] [facility] [place] [address] 12/04/2023 11:00 AM EST Office Visit Cardiology, [facility] [address] [place] [address] [place] CRNP [address] [place] [address] Health Maintenance Due Date Last Done Comments [...] this encounter Medical Devices Implanted Type Area Senior Ui Web Developer Device Identifier Shelf Expiration Date Model / Serial / Lot Power Port 8fr Sngl Lumen Plas - [id number] Implanted:Qty: 1 on 04/24/2021 at [facility] CR BARD : PERIPHERAL VASCULAR [id number] 02/24/2022 [id number] / / [id number] Port Implant W/8f Poly Cath - [id number] Implanted:Qty: 1 on 10/15/2023 at [facility] CR BARD : PERIPHERAL VASCULAR [id number] 03/27/2025 [id number] / / [id number] documented as of this encounter Procedures Procedure Name Priority Date/Time Associated Diagnosis Comments IR VENOUS ACCESS MEDIPORT Routine 10/15/2023 2:34 PM EST Non-small cell lung cancer metastatic to bone (HCC) [facility]E [facility] CENTRAL LINE Routine 10/15/2023 1:09 PM EST documented in this encounter Results * IR VENOUS ACCESS MEDIPORT (10/15/2023 2:34 PM EST) Anatomical Region Laterality Modality Any X-Ray Angiograph y 10/15/2023 5:54 PM EST Impressions 10/15/2023 6:15 PM EST IMPRESSION: This impression is a preliminary interpretation [...] agree with the resident/fellow physician's interpretation. Narrative 10/15/2023 6:15 PM EST PROCEDURE: Right chest medical port placement INDICATION: 53-year-old male with metastatic lung cancer in need of central intravenous access for chemotherapy. ATTENDING (OPERATING PHYSICIAN): Dr. Grey Cho SCRUBBED RESIDENT (OPERATING PHYSICIAN): Dr. Amy Guerrero SUPPORTING PROVIDER (PSYCHOLOGIST MILITARY PERSONNEL): None. CONSENT: After a detailed discussion of the procedure, risks, benefits and alternative treatment options, informed consent was obtained. TIME OUT: A time out procedure was performed. The patient's identification was verified. Informed consent with agreement of procedure, site and position was obtained. All necessary equipment was available prior to procedure. CONTRAST: No contrast was administered. COMPLICATIONS: None. ANESTHESIA: Local lidocaine. IV Versed. IV Fentanyl. SEDATION TIME: Start to end: 1356 to 1443. Qualified nurse sedation observer Ursula Shields RN. MEDICATIONS: See [facility] PROCEDURE DESCRIPTION: The right neck and chest were prepped and draped in the usual sterile fashion. Using real-time ultrasound guidance, the right internal jugular vein was punctured with a micro puncture needle. Digital ultrasound images were acquired and digitally archived. A wire and sheath were used to secure access to the internal jugular vein access using fluoroscopic guidance. An 8 Fr catheter was tunneled subcutaneously through a second incision in the upper chest to the internal jugular access and advanced through a peel-away sheath and positioned under fluoroscopic guidance. The catheter was then measured to 21 cm, cut, and attached to a power injectable medical port. Once the medical port and catheter were in satisfactory position, the medical port was accessed, had appropriate blood return, and easily flushed and was locked with dilute heparin. The incision was then closed with absorbable suture and surgical glue. The venotomy site was closed with surgical glue. The procedure was performed under the personal supervision of Dr. Grey Cho who was present for the entire procedure. FINDINGS: Ultrasound shows an anechoic and compressible right internal jugular vein. The medical port is in the right upper chest with the catheter tip at the mid right atrium. Procedure Note Grey Cho MD - 10/15/2023 PROCEDURE: Right chest medical port placement INDICATION: 53-year-old male with metastatic lung cancer in need ofcentral intravenous access for chemotherapy. ATTENDING (OPERATING PHYSICIAN): Dr. Grey Cho SCRUBBED RESIDENT (OPERATING PHYSICIAN): Dr. Amy Guerrero SUPPORTING PROVIDER (PSYCHOLOGIST MILITARY PERSONNEL): None. CONSENT: After a detailed discussion of the procedure, risks, benefits andalternative treatment options, informed consent was obtained. TIME OUT: A time out procedure was performed. The patient's identificationwas verified. Informed consent with agreement of procedure, site andposition was obtained. All necessary equipment was available prior toprocedure. CONTRAST: No contrast was administered. COMPLICATIONS: None. ANESTHESIA: Local lidocaine. IV Versed. IV Fentanyl. SEDATION TIME: Start to end: 1356 to 1443. Qualified nurse sedationobserver Ursula Shields RN. MEDICATIONS: See MAR PROCEDURE DESCRIPTION: The right neck and chest were prepped and draped inthe usual sterile fashion. Using real-time ultrasound guidance, the rightinternal jugular vein was punctured with a micro puncture needle. Digitalultrasound images were acquired and digitally archived. A wire and sheathwere used to secure access to the internal jugular vein access usingfluoroscopic guidance. An 8 Fr catheter was tunneled subcutaneously through a second incision inthe upper chest to the internal jugular access and advanced through apeel-away sheath and positioned under fluoroscopic guidance. The catheterwas then measured to 21 cm, cut, and attached to a power injectablemedical port. Once the medical port and catheter were in satisfactory position, themedical port was accessed, had appropriate blood return, and easilyflushed and was locked with dilute heparin. The incision was then closedwith absorbable suture and surgical glue. The venotomy site was closedwith surgical glue. The procedure was performed under the personal supervision of Dr. Grey Spencer who was present for the entire procedure. FINDINGS: Ultrasound shows an anechoic and compressible right internal jugular vein.The medical port is in the right upper chest with the catheter tip at themid right atrium. IMPRESSION IMPRESSION: This impression is a preliminary interpretation by the resident and issubject to changes following review by an attending radiologist. Be sureto review a final report to be signed by a staff radiologist for anydiscrepancies with this preliminary interpretation. Successful placement of a right chest power injectable medical port. I have personally reviewed this examination and agree with the resident/fellow physician's interpretation. Kerri Foote MD RAD SPECIAL PROCE DURES * Central Line - Mediport (10/15/2023 1:09 PM EST) Narrative Grey Cho MD - 10/15/2023 1:09 PM EST Jazzy Shields RN 10/15/2023 2:26 PM Central Line - Mediport General Information and Staff: Performed by: Amy Guerrero DO Assisted by: Ramu Mckeon RT Supervised by: Grey Cho MD Procedure Date/Time: 10/15/2023 2:00 PM Patient Location: IR Indication: Chemotherapy Patient identity confirmed: Verbally with patient and arm band Verbal confirmation: Name and date of Written consent obtained: Yes Consent given by: Patient Understanding of procedure being performed: Yes Understanding of procedure matches verbalized consent: Yes Procedure consent matches procedure scheduled: Yes Allergies reviewed: Yes Site marked: n/a Verify correct position: Yes Radiology Studies available/reviewed: yes Relevant Lab Results available/reviewed: yes Required items available: yes Other healthcare professional(s) verbalize(s) agreement with time out: Yes Time out: Immediately prior to the procedure a time out was completed Anticoagulation therapy: Yes Medication: Enoxaparin (Lovenox) Procedure Detail: Sterility Preparation: mask worn, sterile gloves worn, cap worn, sterile sheet used, sterile gown worn and full body drape Provider Hand Hygiene: antimicrobial soap and water Placement conditions: Elective Patient Position: Supine Prep: Chlorhexidine Local Anesthetic Used: Yes Catheter Type: Implanted Port Implanted Port Location: Chest Implanted Port Laterality: Right Power Port: Yes Catheter Total Length (cm): 21 Lot Number: [id number]; Exp. 03/27/2025 Number of Lumens: Single lumen Number of Needle Passes: 1 Placement: target vein identified, needle advanced into vein and blood aspirated and guidewire advanced into vein Radiologic Support with Sterile Technique: surface landmarks Identified, ultrasound guidance used and live fluoroscopy Sterile gel and probe cover used for ultrasound?: Yes Intravenous Verification: verified by ultrasound, venous blood return and live fluoroscopy Outcomes/Complications: patient tolerated procedure well with no complications Post Insertion: Post Insertion Details: all ports aspirated, all ports flushed easily and guidewire was removed, examined and appears intact Line secured with: Braided Suture Dressing applied: Other (describe) (medipore) Tip Confirmation: Radiologic Tip Location: Line Ok to use and Other Location Other: right atrium Grey Cho MD ANESTHESIA documented in this encounter Visit Diagnoses Diagnosis Non-small cell lung cancer metastatic to bone (HCC) documented in this encounter Administered Medications Inactive Administered Medications - up to 3 most recent administrations Medication Order MAR Action Action Date Dose Rate Site buffered lidocaine 1 % inj Intradermal, ONCE PRN INTRA PROCEDURE, Starting on Sat10/15/23 at 1427, Until Sat10/15/23 at 1427, Intra-Op Given 10/15/2023 2:27 PM EST 8 mL fentaNYL (PF) inj ONCE PRN INTRA PROCEDURE, Starting on Sat10/15/23 at 1356, Until Sat10/15/23 at 1423, Intra-Op Given 10/15/2023 2:23 PM EST 50 mcg Given 10/15/2023 2:08 PM EST 50 mcg Given 10/15/2023 1:56 PM EST 50 mcg hEParin 100 UNIT/ML Lock Flush inj ONCE PRN INTRA PROCEDURE, Starting on Sat10/15/23 at 1424, Until Sat10/15/23 at 1424, Intra-Op Given 10/15/2023 2:24 PM EST 5 mL midazolam (Versed) 2 MG/2ML inj ONCE PRN INTRA PROCEDURE, Starting on Sat10/15/23 at 1352, Until Sat10/15/23 at 1408, Intra-Op Given 10/15/2023 2:08 PM EST 1 mg Given 10/15/2023 1:52 PM EST 2 mg documented in this encounter Active and Recently Administered Medications Times are shown in EST. PRN Medication Order 10/13/2023 10/14/2023 10/15/2023 buffered lidocaine 1 % inj (COMPLETED) Intradermal, ONCE PRN INTRA PROCEDURE, Starting on Sat10/15/23 at 1427, Until Sat10/15/23 at 1427, Intra-Op 1427 (Given - Provid er: Amy Guerrero DO - Comment: right neck/chesttotal used during IR procedure) fentaNYL (PF) inj (COMPLETED) ONCE PRN INTRA PROCEDURE, Starting on Sat10/15/23 at 1356, Until Sat10/15/23 at 1423, Intra-Op 1356 (Given - Provid er: Jazzy Shields RN)1408 (Given - Provider: Jazzy Shields RN)1423 (Given - Provider: Jazzy Shields RN) hEParin 100 UNIT/ML Lock Flush inj (COMPLETED) ONCE PRN INTRA PROCEDURE, Starting on Sat10/15/23 at 1424, Until Sat10/15/23 at 1424, Intra-Op 1424 (Given - Provid er: Amy Guerrero DO) midazolam (Versed) 2 MG/2ML inj (COMPLETED) ONCE PRN INTRA PROCEDURE, Starting on Sat10/15/23 at 1352, Until Sat10/15/23 at 1408, Intra-Op 1352 (Given - Provid er: Jazzy Shields RN)1408 (Given - Provider: Jazzy Shields RN) documented in this encounter Additional Health Concerns [...] the patient have Health Care Power of Brand Ambassadors Promotional Sales? No Code Status History Code Status Date Activated Date Inactivated Comments Full Code 05/23/2021 12:21 PM 05/24/2021 9:38 PM This order reflects the patients wishes and were consensually agreed upon. Question Answer Comments Discussion of Advance Directives occurred with: Patient Healthcare Agents on File Name Relationship Healthcare Agent [facility] p Communication Rose Mary Brothers Spouse Health Care Agent [phone] (Mobile) Care Teams Accounting Coordinator Relationship Specialty Start Date End Date Matthew Herrmann PA-C [address] [place], [place] [id number] [phone] PCP - General Physician General Dentist/Owner 03/22/21 documented as of this encounter
--- OUTSIDE RECORDS SUMMARY | 2024-04-11 14:59 | External Medical Summary | Summary of Care ---
Author Name Unknown Organization [facility] Address [address] [facility] [address] Phone [phone] Care Team Providers Care Sheet Rock Applier Name Role Phone Matthew Herrmann PA-C Primary Care Provider [phone] Reason for Visit * Reason Comments Dosage Adjustment Via Phone (anticoag Cl inic) Encounter Details Date Type Department Care Team (Latest Contact Info) Description 10/15/2023 6:[address] [facility] Anticoagulation Pharmacy Call Center WB [phone] Public [place] [phone] [facility] [address] [facility] [place] [phone] Acute deep vein thrombosis (DVT) of proximal [...] as of this encounter (statuses as of 10/15/2023) Medications Medication Sig Dispensed Refills Start Date [...] 30 Tablet 3 09/30/2023 Suspended Additional Information Amoxicillin-Pot Clavulanate 875-125 MG Oral Tablet (Augmentin) 1 Tablet in the morning and 1 Tablet before bedtime. 0 10/08/2023 Suspended Enoxaparin Sodium 80 MG/0.8ML Injection Solution Prefilled Syringe (Lovenox) Inject 80 mg under the skin in the morning and 80 mg before bedtime. 8 mL 2 10/11/2023 Suspended Additional Information documented as of this encounter (statuses as of 10/15/2023) Active Problems Problem Noted Date Diagnosed Date [...] as of this encounter (statuses as of 10/15/2023) Resolved Problems Problem Noted Date Diagnosed Date Resolved Date Prediabetes 09/22/2021 08/09/2022 MSSA bacteremia 08/01/2021 08/07/2021 Sepsis 08/01/2021 08/07/2021 COPD, group B, by GOLD 2017 classification 05/08/2021 06/21/2021 Overview: Per COPD GOLD Classification Obstructive lung disease 04/10/2021 Overview: Per COPD GOLD Classification documented as of this encounter (statuses as of 10/15/2023) Immunizations Name Administration Dates Next Due COVID-19 mRNA, LNP-s, No Pre serve, 2-Dose Series (Legions) 09/23/2021 documented as of this encounter Social [...] this encounter Progress Notes * Wilfred Gary, turnaround engineer - 10/15/2023 2:54 PM EST Patient Phone Numbers Left message on patient's answering machine. AntiXa Level 1.2 (goal 0.6-1.0) Advised patient to contact Anticoagulation Clinic if any unusual bruising or bleeding, recent illness, changes in medication, or questions/concerns. AntiXa level results, Lovenox dose instructions, and next AntiXa level date communicated as noted by Pharmacist. Thank You, Wilfred Gary [facility] Pipe Recovery Specialist II Centralized Clinical Pharmacy Services (Formerly Telepharmacy) 10/15/2023, 2:54 PM * Betzy Parra RPh - 10/15/2023 11:49 AM EST Anticoagulation Clinic Current Lovenox Dose: 80mg every 12 hours AntiXa level 1.02 (goal 0.6-1.0) Dose instructions: Lovenox CONTINUE 80mg every 12 hours Repeat antiXa level in 1 weeks on 10/22 at [place]. Remind patient that labs must be drawn 4 hours after dose. SHIRA to contact patient with dose instructions as noted. Betzy Parra RPh 10/15/23, 11:50 AM documented in this encounter Plan of Treatment Upcoming Encounters Date Type Department Care Team (Late st Contact Info) Description 10/18/2023 11:00 AM EST Rehab Services Speech Therapy, [address] [place] [address] Lisa Hairston, INTERNATIONAL SALES MANAGER [address] [facility] [address] [place] [address] 10/24/2023 7:20 AM EST Laboratory Laboratory Hem/Onc [facility] [address] [place] [phone] [place] [address] [place], [place] [phone] 10/24/2023 8:00 AM EST Office Visit Hematology Oncology [facility], [place] [address] [place] [address] Yanni Yao CRNP [address] [place] [address] 10/24/2023 9:00 AM EST Hem/Onc Treatment Hematology Oncology [facility], [place] [address] [place] [address] [place], Chair 4 Hem/Onc [facility] [place] [address] 10/30/2023 11:20 AM EST Office Visit Neurology [facility] [address] [facility] [place] [address] Kathy Pryor PA-C [address] [facility] [place] [address] 11/01/2023 10:00 AM EST Rehab Services Speech Therapy, [address] [address] Lisa Hairston, INTERNATIONAL SALES MANAGER [address] [place] [address] 11/05/2023 6:15 AM EST Hospital Encounter MRI, [address] [address] 11/05/2023 8:00 AM EST Appointment MRI, [address] [address] 11/11/2023 11:30 AM EST Telemedicine Radiation Oncology, [address] [address] Melissa Beal MD [address] [place] [address] [place] [address] 11/15/2023 9:40 AM EST Office Visit [address] [address] Matthew Herrmann PA-C [address] [place] [address] 11/18/2023 7:30 AM EST NeuroDiagnostic Study Neurophysiology, [address] [phone] 1, Neurophys Tech [address] [place] [address] 11/21/2023 7:20 AM EST Laboratory Laboratory Hem/Onc [facility], [address] [address] [place], Lab Med4 [address] [place] [address] [phone] 11/21/2023 8:00 AM EST Office Visit Hematology Oncology [facility], [address] [address] Nicole Carrillo PA-C [address] [place] [address] [phone] 11/21/2023 9:00 AM EST Hem/Onc Treatment Hematology Oncology [facility], [address] [phone] [place], Chair 4 Hem/Onc [address] [place] [address] [phone] 12/04/2023 11:00 AM EST Office Visit [facility], [facility] [place] [address] Santa Quintero CRNP [address] [place] [address] Health Maintenance Due Date Last Done Comments [...] this encounter Medical Devices Implanted Type Area Heel Seat Filler Device Identifier Shelf Expiration Date Model / Serial / Lot Power Port 8fr Sngl Lumen Plas - [id number] Implanted:Qty: 1 on 04/24/2021 at [facility] CR BARD : PERIPHERAL VASCULAR [id number] 02/24/2022 [id number] / / [id number] Port Implant W/8f Poly Cath - [id number] Implanted:Qty: 1 on 10/15/2023 at [facility] CR BARD : PERIPHERAL VASCULAR [id number] 03/27/2025 [id number] / / [id number] documented as of this encounter Visit Diagnoses [...] the patient have Health Care Power of Java Grails Developer? No Code Status History Code Status Date Activated Date Inactivated Comments Full Code 05/23/2021 12:21 PM 05/24/2021 9:38 PM This order reflects the patients wishes and were consensually agreed upon. Question Answer Comments Discussion of Advance Directives occurred with: Patient Healthcare Agents on File Name Relationship Healthcare Agent Relationshi p Communication Rose Mary Brothers Spouse Health Care Agent Care Teams Sheet Rock Applier Relationship Specialty Start Date End Date Matthew Herrmann PA-C [address] [place] [address] [phone] PCP - General Physician Paper Bag Maker 03/22/21 documented as of this encounter
--- OUTSIDE RECORDS SUMMARY | 2024-04-11 14:59 | External Medical Summary | Summary of Care ---
Author Name Unknown Organization [facility] Address [address] [place] [facility] [place] [address] Phone [phone] Care Team Providers Care Chemist Physical Name Role Phone Matthew Herrmann PA-C Primary Care Provider [phone] Reason for Referral * Evaluate & Treat - Unlimited Visits (Within 10 days (routine)) - Authorized Specialty Diagnoses / Procedures Referred By Yuli seay Referred To Contact Hematology/Oncology / Hematology Oncology Diagnoses Malignant neoplasm of unspecified part of unspecified bronchus or lung (HCC) Yonathan Tomas CRNP [address] [place] [address] Referral ID Status Reason Start Date Expiration Date Visits Requested Visits Authorized [id number] Authorized Specialty Services Required 3 11/04/2024 999 999 Question Answer Referral Priority Within 10 days (routine) Where should this appointment be scheduled? [facility] Reason for Referral Other - Please Comment Comments Adenocarcinoma Encounter Details Date Type Department Care Team (Late st Contact Info) Description 10/18/2023 Orders Only Access Martin, [facility] [address] [facility] *DO NOT REMOVE THIS DEPARTMENT* [place] [address] Request, External Referral Malignant neoplasm of unspecified part of unspecified bronchus or lung (HCC)* Allergies Active Allergy [...] mRNA, LNP-s, No Pre serve, 2-Dose Series ([employer]Wise) 09/23/2021 documented as of this encounter Social [...] 11:00 AM EST Rehab Services Speech Therapy, [facility] [address] [place] [address] Lisa Hairston, VENEER REDRIER [address] [facility] 205 [place], [place] [phone] 10/23/2023 6:15 AM EST [facility]ticoagulation [facility] Call Center [facility] [address] [facility], [facility] 58 60 [facility] [place] [address] 10/24/2023 7:20 AM EST Laboratory Laboratory Hem/Onc [address] [address] [place], Lab Med4 [facility] [address] [place], [place] [phone] 10/24/2023 8:00 AM EST Office Visit Hematology Oncology [facility], [place] [address] [place] [address] Yanni Yao CRNP [address] [place], [place] [phone] 10/24/2023 9:00 AM EST Hem/Onc Treatment Hematology Oncology [facility], [place] [address] [place], [place] [phone] [place], Chair 4 Hem/Onc [facility] [place] [address] 10/30/2023 11:20 AM EST Office Visit Neurology [facility] [address] [facility] [address] Kathy Pryor PA-C [address] [facility] [address] 11/01/2023 10:00 AM EST Rehab Services Speech Therapy, [address] [address] Lisa Hairston, VENEER REDRIER [address] [place] [address] 11/05/2023 6:15 AM EST Hospital Encounter MRI, [address] [address] 11/05/2023 8:00 AM EST Appointment MRI, [address] [address] 11/15/2023 9:40 AM EST Office Visit [facility] [address] [place] [phone] Matthew Herrmann PA-C [address] [place] [address] 11/18/2023 7:30 AM EST NeuroDiagnostic Study Neurophysiology, [address] [phone] 1, Neurophys Tech [address] [place] [address] [phone] 11/21/2023 7:20 AM EST Laboratory Laboratory Hem/Onc [facility], [address] [phone] [place], Lab [address] [address] 11/21/2023 8:00 AM EST Office Visit Hematology Oncology [facility], [address] [phone] Carr[address] PA-C [facility] [place] [address] 11/21/2023 9:00 AM EST Hem/Onc Treatment Hematology Oncology [facility], [address] [address] [place], Chair 4 Hem/Onc [address] [place] [address] 12/04/2023 11:00 AM EST Office Visit Cardiology, [facility] [address] [place] [address] Santa Quintero CRNP [address] [place] [address] Scheduled Referrals Name Type Priority Associated Diagnoses Orde r Schedule HEMATOLOGY/ONCOLOGY REFERRAL OP Referral Within 10 days (routine) Malignant neoplasm of unspecified part of unspecified bronchus or lung (HCC) Ordered: 10/18/2023 Health Maintenance Due Date Last Done Comments [...] Panel 09/19/2026 09/19/2021, 1012/2012, 04/25/2010 Diabetes Screening 10/10/2026 10/10/2023, 1 12/09/2022, 10/03/2023, Additional history exists Colonoscopy 08/13/2029 08/13/2019, 08/13/2019 Colorectal Cancer Screening 08/13/2029 GARDASIL-HPV IMMUNIZATION SERIES Aged Out No longer eligible based on patient's age to complete this topic MENINGOCOCCAL (MENACTRA/MENVEO) Aged Out No longer eligible based on patient's age to complete this topic documented as of this encounter Medical Devices Implanted Type Area Yacht Captain Device Identifier Shelf Expiration Date Model / Serial / Lot Power Port 8fr Sngl Lumen Plas - [id number] Implanted:Qty: 1 on 04/24/2021 at [facility] CR BARD : PERIPHERAL VASCULAR [id number] 02/24/2022 [id number] / / [id number] Port Implant W/8f Poly Cath - [id number] Implanted:Qty: 1 on 10/15/2023 at [facility] CR BARD : PERIPHERAL VASCULAR [id number] 03/27/2025 [id number] / / [id number] documented as of this encounter Visit Diagnoses Diagnosis Malignant neoplasm of unspecified part of unspecified bronchus or lung (HCC)- Primary documented in [...] the patient have Health Care Power of Lens Cementer? No Code Status History Code Status Date Activated Date Inactivated Comments Full Code 05/23/2021 12:21 PM 05/24/2021 9:38 PM This order reflects the patients wishes and were consensually agreed upon. Question Answer Comments Discussion of Advance Directives occurred with: Patient Healthcare Agents on File Name Relationship Healthcare Agent [facility] Communication Rose Mary Brothers Spouse Health Care Agent Care Teams Chemist Physical Relationship Specialty Start Date End Date Matthew Herrmann PA-C [address] [place], [place] [address]TG white [phone] PCP - General Physician Cut Out Marker 03/22/21 documented as of this encounter
--- OUTSIDE RECORDS SUMMARY | 2024-04-11 14:59 | External Medical Summary | Summary of Care ---
Author Name Unknown Organization [facility] Address [address] [place] [address] Phone [phone] Care Team Providers Care Nursing Unit Coordinator Name Role Phone Lukeharry Matthew Narayanan PA-C Primary Care Provider [phone] Reason for Visit * Reason Onset Date Comments Advice 10/07/2023 Dr. Dary peterson nt Encounter Details Date Type Department Care Team (Late st Contact Info) Description 10/07/[address] [facility] [address] [place] [address] Services, [facility] [address] [place] [address] Advice (Dr. Foote patient ) Allergies Active Allergy Reactions Criticality Noted [...] 3 Discontinue d(Medicatio n List Clean Up) Enoxaparin Sodium 100 MG/ML Injection Solution Prefilled Syringe (Lovenox)Indications :Acute deep vein thrombosis (DVT) of proximal vein of right lower extremity (HCC) Inject 100 mg under the skin in the morning and 100 mg before bedtime. 180 mL 3 10/03/2023 3 Discontinue d(Medicatio n/Dose Changed) documented as of this encounter (statuses as [...] mRNA, LNP-s, No Pre serve, 2-Dose Series ([employer]) 09/23/2021 documented as of this encounter Social [...] Telephone Encounter - Yoselin Bhatt RN - 10/08/2023 10:38 AM EST Per review of EPIC note from case management documentation pt did go to [facility] ER yesterday, scan was negative for PE but positive for pneumonia and pt was started on an antibiotic. PT is scheduled for televisit with our office tomorrow. * Telephone Encounter - Yoselin Bhatt RN - 10/07/2023 4:25 PM EST Returned call to after speaking with Dr. Foote. She said if he is very SOB he should go to ERto r/o PE. said she mentioned this to pt earlier that he might have to go to ER and he told her he didn't want to go. She said he was upset that she even called the doctor. Pt has been through so much and is tired of being in the ER and hospital. said if he doesn't want to go she will keep a very close eye on him and if the SOB gets worse she will definitely make him go. She said that they are both aware he could have a clot in his lung and it could be a matter of life and . She will call tomorrow to let us know what he decided to do, she feels he will likely agree to go to ER. * Telephone Encounter - Yoselin Bhatt RN - 10/07/2023 1:31 PM EST 10/03/23 Dominique Cruz/Sadie Spoke with , she reports pt started with SOB on Saturday. He is having SOB with exertion only and sometimes when he is drinking fluids. Denies any SOB at rest or when eating. She said he was onlyable to start his Lovenox on Saturday as they had issues with getting it from the pharmacy. He has had 3 doses so far. She said she was not sure if this was just related to him restarting chemo or if it's something more. Told her I would discuss with Dr. Foote and get back to her, she is appreciative of same. * Telephone Encounter - Shereen Lucia OSA - 10/07/2023 12:36 PM EST What is the reason for call? Shortness of breath that started Saturday or Saturday. Patient had new chemo treatment on . What [facility] is the patient trying to reach? [facility] - see Audrey- click on the [facility] Caller: other: Rose Mary- Return Phone #: [phone] Caller was offered a call back. documented in this encounter Plan of Treatment Upcoming Encounters Date Type Department Care Team (Late st Contact Info) Description 10/15/2023 1:00 PM EST Hospital Encounter Interventional Radiology [facility], [facility] 1st Floor [address] [place] [phone] 10/18/2023 11:00 AM EST Rehab Services Speech Therapy, [id number] [place] [address] Lisa Hairston, MANAGER PRINT [address] [place] [address] 10/24/2023 7:20 AM EST Laboratory Laboratory Hem/Onc [facility], [address] [phone] [place], Lab Med4 [address] [place], [place] [phone] 10/24/2023 8:00 AM EST Office Visit Hematology Oncology [facility] [address] [place] [phone] Yanni Yao CRNP [address] [place], [place] [phone] 10/24/2023 9:00 AM EST Hem/Onc Treatment Hematology Oncology [facility] [address] [place], [place] [phone] [place], Chair 4 Hem/Onc [address] [place] [address] 10/30/2023 11:20 AM EST Office Visit Neurology [facility] [address] [facility] [place] [address] Kathy Pryor PA-C [address] [place] [address] 11/01/2023 10:00 AM EST Rehab Services Speech Therapy, [address] [place] [address] Lisa Hairston, MANAGER PRINT [address] [place] [address] 11/05/2023 6:15 AM EST Hospital Encounter MRI, [address] [address] 11/05/2023 8:00 AM EST Appointment MRI, [address] [address] 11/11/2023 11:30 AM EST Telemedicine Radiation Oncology, [address] [address] Melissa Beal MD [address] [place] [address] [place] [address] 11/15/2023 9:40 AM EST Office Visit [address] [phone] Matthew Herrmann PA-C [address] [place] [address] 11/18/2023 7:30 AM EST NeuroDiagnostic Study Neurophysiology, [address] [address] 1, Neurophys Tech [address] [place] [address] 11/21/2023 7:20 AM EST Laboratory Laboratory Hem/Onc [facility], [address] [phone] [place], Lab Med4 [address] [place] [address] 11/21/2023 8:00 AM EST Office Visit Hematology Oncology [facility], [place] [address] [place] [phone] Nicole Carrillo PA-C [address] [place], [place] [phone] 11/21/2023 9:00 AM EST Hem/Onc Treatment Hematology Oncology [facility], [place] [address] [place] [address] [place], Chair 4 Hem/Onc [facility] [place] [address] 12/04/2023 11:00 AM EST Office Visit Cardiology, [facility] [address] [place] [address] Santa Quintero CRNP [address] [place] [address] Health Maintenance Due Date Last Done Comments [...] encounter Medical Devices Implanted Type Area Medical Office Receptionist Device Identifier Shelf Expiration Date Model / Serial / Lot Power Port 8fr Sngl Lumen Plas - [id number] Implanted:Qty: 1 on 04/24/2021 at [facility] CR BARD : PERIPHERAL VASCULAR [id number] 02/24/2022 [id number] / / [id number] documented as of this encounter Additional Health [...] the patient have Health Care Power of Director Marketing Communications? No Code Status History Code Status Date Activated Date Inactivated Comments Full Code 05/23/2021 12:21 PM 05/24/2021 9:38 PM This order reflects the patients wishes and were consensually agreed upon. Question Answer Comments Discussion of Advance Directives occurred with: Patient Healthcare Agents on File Name Relationship Healthcare Agent Relationsok p Communication Rose Mary Brothers Spouse Health Care Agent Care Teams Nursing Unit Coordinator Relationship Specialty Start Date End Date Matthew Herrmann PA-C [address] [place] [address] [place] [address] PCP - General Physician Client Program Manager 03/22/21 documented as of this encounter
--- OUTSIDE RECORDS SUMMARY | 2024-04-11 14:59 | External Medical Summary ---
Author Name Unknown Address Unknown Organization K01:LABORATORY [facility] - [facility] [address] [place] [address] Laboratory Report Ordering Provider Test Date Status ABDIFATAH MCQUEEN 10/14/2023 12:36:21 Final Observation Date Value Abnormality Reference (Units ) Status LMW Heparin [Units/volume] in Platelet poor plasma by Chromogenic method 10/14/2023 12:36:21 1.02 Above high normal <0.10 (IU/mL) Final Low molecular weight heparin 's therapeutic range is 0.6 - 1.00 I.U./mL. Performing Location LABORATORY [facility] - [address] [place] [address]
--- OUTSIDE RECORDS SUMMARY | 2024-04-11 14:59 | External Medical Summary | Summary of Care ---
Author Name Unknown Organization [facility] Address [address] [facility] [address] Phone [phone] Care Team Providers Care Lockstitch Collar Setter Name Role Phone Matthew Herrmann PA-C Primary Care Provider [phone] Reason for Visit * Reason Comments Dosage Adjustment Via Phone (anticoag Cl inic) Encounter Details Date Type Department Care Team (Latest Contact Info) Description 10/15/2023 6:45 AM [facility] Anticoagulation Pharmacy Call Center [phone] [place] [address] [facility] [address] [facility] [place] [address] Acute deep vein thrombosis (DVT) of proximal [...] mRNA, LNP-s, No Pre serve, 2-Dose Series ([employer]) 09/23/2021 documented as of this encounter Social [...] as of this encounter Progress Notes * Margret Hdez, [facility] - 10/15/2023 5:03 PM EST Pt seen in IR 10/15/23 for mediport insertion procedure (ACC unaware previously). No changes to lovenox dosing/monitoring plan from within this encounter. Thanks, Margret Hdez PharmD Clinical Pharmacist [facility] Services ([facility]) (Formerly Telepharmacy) [phone] 10/15/2023 5:04 PM * Wilfred Gary carton catcher - 10/15/2023 2:54 PM EST Patient Phone Numbers Left message on patient's answering machine. AntiXa Level 1.2 (goal 0.6-1.0) Advised patient to contact Anticoagulation Clinic if any unusual bruising or bleeding, recent illness, changes in medication, or questions/concerns. AntiXa level results, Lovenox dose instructions, and next AntiXa level date communicated as noted by Pharmacist. Thank You, Wilfred Gary [facility] Director Of Surgery II Central[facility] Clinical Pharmacy Services (Formerly Telepharmacy) 10/15/2023, 2:54 PM * Betzy Parra RPh - 10/15/2023 11:49 AM EST Anticoagulation Clinic Current Lovenox Dose: 80mg every 12 hours AntiXa level 1.02 (goal 0.6-1.0) Dose instructions: Lovenox CONTINUE 80mg every 12 hours Repeat antiXa level in 1 weeks on 10/22 at [place]. Remind patient that labs must be drawn 4 hours after dose. SHIRA to contact patient with dose instructions as noted. Betzy Parra RPh 10/15/23, 11:50 AM documented in this encounter Plan of Treatment Upcoming Encounters Date Type Department Care Team (Late st Contact Info) Description 10/18/2023 11:00 AM EST Rehab Services Speech Therapy, [place] [address] Lisa Hairston, STRATEGIC ACCOUNT EXECUTIVE [address] [address] 10/23/2023 6:15 AM EST Anticoagulation Pharmacy Call Center [address] [place] [address] [facility], [facility] [address] [place] [address] 10/24/2023 7:20 AM EST Laboratory Laboratory Hem/Onc [place] [address] [place] [address] [place], Lab Med4 [facility] [address] [place], [place] [phone] 10/24/2023 8:00 AM EST Office Visit Hematology Oncology [address] [place] [address] Yanni Yao CRNP [address] [place] [address] 10/24/2023 9:00 AM EST Hem/Onc Treatment Hematology Oncology [address] [place] [address] [place], Chair 4 Hem/Onc [address] [place] [address] 10/30/2023 11:20 AM EST Office Visit Neurology [facility] [place] [address] [facility] [place] [address] Kathy Pryor PA-C [address] [place] [address] 11/01/2023 10:00 AM EST Rehab Services Speech Therapy, [address] [place] [address] Lisa Hairston, STRATEGIC ACCOUNT EXECUTIVE [address] [address] 11/05/2023 6:15 AM EST Hospital Encounter MRI, [address] [phone] 11/05/2023 8:00 AM EST Appointment MRI, [address] [address] 11/15/2023 9:40 AM EST Office Visit [facility] [address] [place] [phone] Matthew Herrmann PA-C [address] [place] [address] 11/18/2023 7:30 AM EST NeuroDiagnostic Study Neurophysiology, [address] [phone] 1, Neurophys Tech [address] [place] [id number] 11/21/2023 7:20 AM EST Laboratory Laboratory Hem/Onc [facility], [address] [phone] [place], Lab Med4 [address] [place] [phone] 11/21/2023 8:00 AM EST Office Visit Hematology Oncology [facility], [address] [phone] Nicole Carrillo PA-C [address] [place] [phone] 11/21/2023 9:00 AM EST Hem/Onc Treatment Hematology Oncology [facility], [address] [phone] [place], Chair 4 Hem/Onc [address] [place] [id number] 12/04/2023 11:00 AM EST Office Visit Cardiology, [facility] [address] [address] Santa Wang CRNP [address] [place] [address] Health Maintenance Due Date Last Done Comments [...] encounter Medical Devices Implanted Type Area Child Daycare Worker Device Identifier Shelf Expiration Date Model / Serial / Lot Power Port 8fr Sngl Lumen Plas - [id number] Implanted:Qty: 1 on 04/24/2021 at [facility] CR BARD : PERIPHERAL VASCULAR [id number] 02/24/2022 [id number] / / [id number] Port Implant W/8f Poly Cath - [id number] Implanted:Qty: 1 on 10/15/2023 at [facility] CR BARD : PERIPHERAL VASCULAR [id number] 03/27/2025 [id number] / / [id number] documented as of this encounter Visit Diagnoses [...] the patient have Health Care Power of School Librarian? No Code Status History Code Status Date Activated Date Inactivated Comments Full Code 05/23/2021 12:21 PM 05/24/2021 9:38 PM This order reflects the patients wishes and were consensually agreed upon. Question Answer Comments Discussion of Advance Directives occurred with: Patient Healthcare Agents on File Name Relationship Healthcare Agent Relationshi p Communication Rose Mary Brothers Spouse Health Care Agent [phone] ([place]) Care Teams Lockstitch Collar Setter Relationship Specialty Start Date End Date Matthew Herrmann PA-C [address] [place] [address] PCP - General Physician Phlebotomy Technologist 03/22/21 documented as of this encounter
--- OUTSIDE RECORDS SUMMARY | 2024-04-11 14:59 | External Medical Summary | Summary of Care ---
Author Name Unknown Organization [facility] Address [address] [place] [address] Phone [phone] Care Team Providers Care Transmission Repairer Name Role Phone Matthew Herrmann PA-C Primary Care Provider [phone] Reason for Visit * Reason Comments Evaluation * Evaluate & Treat - Unlimited Visits (Within 10 days (routine)) - Authorized Specialty Diagnoses / Procedures Referred By Yuli seay Referred To Contact Speech Pathology Diagnoses Dysphagia, unspecified Yonathan Tomas CRNP [address] [place] [address] Referral ID Status Reason Start Date Expiration Date Visits Requested Visits Authorized [id number] Authorized Specialty Services Required 10/04/2023 03/03/2024 15 15 Encounter Details Date Type Department Care Team (Latest Contact Info) Description 10/11/2023 11:00 AM EST Rehab Services Speech Therapy, [facility] [address] [place] [address] Lisa Hairston, CLAMMER [address] [address] Dysphagia, unspecified type* Allergies Active [...] mRNA, LNP-s, No Pre serve, 2-Dose Series (MaintenanceNet) 09/23/2021 documented as of this encounter Social [...] this encounter Progress Notes * Lisa Hairston, DAWOOD - 10/11/2023 11:15 AM EST CLINICAL SWALLOW EVALUATION - Speech Speech Therapy, [address] [address] Patient Name: John Brothers Date of : 1970 Age: [age] year old Insurance: Payor: [facility] TPA Plan: [facility] PEBTF O [id number] Product Type: *No Product type* Payor: [facility] Plan: [facility] Product Type: *No Product type* Date: 10/11/2023 Patient Verified by: Name and Date of Onset Date: 07/2023 Start of Care: 10/11/2023 Plan of Care Expiration Date: 12/20/2023 Visit Number: Authorization number: AUTH# [id number] Referring Physician: DENISE Cleveland Primary Care Physician: Matthew Herrmann PA-C Encounter Diagnosis: R13.10 Dysphagia, unspecified Orders: Dysphagia Evaluation Precautions: Chemo treatment, immunocompromised Reason for Speech Therapy Referral: Coughing at meals History: stage 4 lung cancer- chemo treatment stronger dose was progressing on prior chemo for metastatic adenocarcinoma of the lung x 2 years, current pneumonia with some shortness of breath - antibiotics, recent covid, heart attack, July 2023 CVA -MRI brain wo contrast: Acute right MCA territory infarct within right frontotemporal region. Adjacent smaller acute infarcts within the right frontal lobe. Raise the possibility of an embolic etiology. Small focus of cortical signal abnormality within the left frontoparietal region with associatedlaminar necrosis. Favors a subacute to chronic infarct. Pertinent Medical History: Past Medical History: Diagnosis Date Pneumonia Past Surgical History: Procedure Laterality Date COLONOSCOPY, DIAGNOSTIC (RECTUM) N/A 08/13/2019 COLONOSCOPY FLEXIBLE PROXIMAL DIAGNOSTIC performed by Pavan Villaseñor MD at ENDOSCOPY [facility] IR VENOUS ACCESS MEDIPORT 04/24/2021 IR VENOUS ACCESS MEDIPORT 08/01/2021 VASECTOMY Review of patient's allergies indicates: Allergen Reactions Carboplatin Dyspnea, chest pain, hypoxia, sore throat, edema throat, flushing, mild hypotension Isosorbide Nitrate Other (Please comment) Headache Current Diet/Dysphagia History: Regular diet - onset of dysphagia symptoms with CVA in July of 2023. Cognitive-Communication: patient with subjective complaints of memory difficulty which his daughtervalidates again with onset following CVA in July 2023 including misplacing items and forgetting appointments. In addition he notes delayed processing and occasional slurred speech. Barriers to Learning: medically complex Best Learning Method: Other patient reports he is a hands on learner ORAL MECHANISM EXAM: Facial Symmetry: Impaired- left facial droop with weakness Labial Function: Impaired weakness and decreased range of motion - anterior spillage and pocketing Lingual Function: Within functional limits Velar Function: Within functional limits Dentition: Natural PROTECTIVE MECHANISMS: Volitional Swallow: Impaired- decreased laryngeal elevation Volitional Throat Clearing: Within Functional Limits Volitional Cough: Did not test Gag Reflex: Did not test Vocal Quality: Within Functional Limits Tracheostomy Tube: Not Present Ventilator Status: Not Applicable ORAL PREPARATION PHASE: Difficulty securing bolus: pocketing in left lateral sulci Anterior loss of bolus: Yes Mastication: WFL Tongue thrusting: No ORAL PHASE: Increased Oral transit time (greater than 1 sec.): No Oral residue after swallow: Yes PHARYNGEAL PHASE: Delayed/absent swallow: No Nasal penetration: No Wet vocal quality after swallow: No Cough after swallow: Not observed during assessment however both patient and daughter indicate thatthey would expect to have had coughing Throat clearing after swallow: Yes Compensatory Strategies Utilized: effortful swallow Additional findings: Facial Cranial nerve impaired as evidenced by decreased tone and movement of cheeks, lips as well as decreased hyoid elevation and decreased taste of anterior 2/3 of the tongue Diagnosis/Impressions: John presents with mild to moderate oral stage dysphagia complicated by xerostomia and characterized by left facial weakness with anterior loss and pocketing as well as lingual residue post swallow. He exhibits mild phayrngeal stage dysphagia characterized by multiple swallows consistent with decreased hyolaryngeal elevation upon palpitation and decreased airway protection(epiglottic inversion) although this cannot be confirmed within the scope of a clinical evaluation.John has complaints of cognitive communication deficits as well however primary focus on swallow function given medical history and personal preference. Rehab Potential: fair given good response to compensations including effortful swallow and trial ofMendelsohn. Recommendations/Plan: Videofluoroscopy: Not indicated at this time Diet Level: Regular, moistened Liquid Level: Thin Presentation of Medication: As tolerated in a medium Positioning: Seated with 90 hip flexion Level of Supervision: None Compensatory Techniques to be Utilized During PO Intake: Effortful swallow Swallowing Treatment: Indicated 1 days/week, 45-60 minutes/session x 10 week(s) Short Term Treatment Goals: (To be met by: 12/20/2023) 1) John will improve use of compensatory swallowing strategies to minimize signs and symptoms of dysphagia to less than 10% of trials. 2) John will improve oral stage function via facilitative techniques (buccal resistance, labial resistance) as evidenced by no anterior spillage or buccal pocketing over 2 consecutive sessions. 3) John will improve pharyngeal stage function via facilitative techniques including effortful swallow and rianna maneuver with less than 10% signs and symptoms of aspiration/ penetration over 2consecutive sessions. Custodial Treatment Goals: 1) John will consume least restricitive diet without signs/symptoms of dysphagia. The above information was discusses with the patient/family. Yes The patient/family was in Agreement Providers Signature: Date: Comments: PLEASE SIGN AND FAX TO [phone] Lisa Hairston MS, PÉREZ-CLAMMER 10/11/2023 11:16 AM documented in this encounter Plan of Treatment Upcoming Encounters Date Type Department Care Team (Late st Contact Info) Description 10/15/2023 1:00 PM EST Hospital Encounter Interventional Radiology [facility], [address] [place] [address] 10/18/2023 11:00 AM EST Rehab Services Speech Therapy, [address] [address] Lisa Hairston, CLAMMER [address] [address] 10/24/2023 7:20 AM EST Laboratory Laboratory Hem/Onc [place] [address] [place] [phone] [place], Lab Med4 [facility] [address], [place] [id number] 10/24/2023 8:00 AM EST Office Visit Hematology Oncology [facility], [place] [address] [place] [phone] Yanni Yao CRNP [address], [place] [id number] 10/24/2023 9:00 AM EST Hem/Onc Treatment Hematology Oncology [facility], [place] [address] [place] [address] [place], Chair 4 Hem/Onc [facility] [place] [place] [address] 10/30/2023 11:20 AM EST Office Visit Neurology [address] [place] [address] [place] [address] Kathy Pryor PA-C [address] [facility] [place] [address] 11/01/2023 10:00 AM EST Rehab Services Speech Therapy, [address] [address] Lisa Hairston, CLAMMER [address] [place] [address] 11/05/2023 6:15 AM EST Hospital Encounter MRI, [address] [address] 11/05/2023 8:00 AM EST Appointment MRI, [address] [address] 11/11/2023 11:30 AM EST Telemedicine Radiation Oncology, [address] [address] Melissa Beal MD [address] [place] [address] [place] [address] 11/15/2023 9:40 AM EST Office Visit [address] [phone] Matthew Herrmann PA-C [address] [place] [address] 11/18/2023 7:30 AM EST NeuroDiagnostic Study Neurophysiology, [address] [id number] 1, Neurophys Tech [address] [place] [id number] 11/21/2023 7:20 AM EST Laboratory Laboratory Hem/Onc [facility], [address] [phone] [place], Lab Med4 [address] [place] [address] 11/21/2023 8:00 AM EST Office Visit Hematology Oncology [facility], [address] [phone] Nicole Carrillo PA-C [address] [place] [id number] 11/21/2023 9:00 AM EST Hem/Onc Treatment Hematology Oncology [facility], [place] [address] [place] [address] [place], Chair 4 Hem/Onc [address] [place] [address] 12/04/2023 11:00 AM EST Office Visit Cardiology, [facility] [address] [place] [address] Santa Quintero CRNP [address] [place] [address] Health Maintenance Due Date Last Done Comments [...] this encounter Medical Devices Implanted Type Area Photographer Motion Picture Device Identifier Shelf Expiration Date Model / Serial / Lot Power Port 8fr Sngl Lumen Plas - [id number] Implanted:Qty: 1 on 04/24/2021 at [facility] CR BARD : PERIPHERAL VASCULAR [id number] 02/24/2022 [id number] / / [id number] documented as of this encounter Visit Diagnoses [...] the patient have Health Care Power of Electromechanical Technologist? No Code Status History Code Status Date Activated Date Inactivated Comments Full Code 05/23/2021 12:21 PM 05/24/2021 9:38 PM This order reflects the patients wishes and were consensually agreed upon. Question Answer Comments Discussion of Advance Directives occurred with: Patient Healthcare Agents on File Name Relationship Healthcare Agent Relationshi p Communication Rose Mary Brothers Spouse Health Care Agent [phone] (Mobile) Care Teams Transmission Repairer Relationship Specialty Start Date End Date Matthew Herrmann PA-C [address] [place] [address] PCP - General Physician Outside Parts Salesman 03/22/21 documented as of this encounter
--- OUTSIDE RECORDS SUMMARY | 2024-04-11 14:59 | External Medical Summary | Summary of Care ---
Author Name Unknown Organization [facility] Address [address] [place] [address] Phone [phone] Care Team Providers Care Manufacturing Tech Name Role Phone Matthew Herrmann PA-C Primary Care Provider [phone] Reason for Visit * Reason Comments Outpatient Testing Encounter Details Date Type Department Care Team (Late st Contact Info) Description 10/14/2023 12:40 PM [facility] Laboratory Laboratory [facility] [phone] [facility] [address] [place] [address] Acute deep vein thrombosis (DVT) of proximal vein of right lower extremity (HCC) Allergies Active Allergy Reactions Criticality Noted Date Comments Carboplatin High 11/14/2021 Dyspnea, chest pain, hypoxia, sore throat, edema throat, flushing, mild hypotension Isosorbide Nitrate Other (Please comment) 07/22/2023 Headache documented as of this encounter (statuses as of 10/14/2023) Medications Medication Sig Dispensed Refills Start Date [...] as of this encounter (statuses as of 10/14/2023) Active Problems Problem Noted Date Diagnosed Date [...] as of this encounter (statuses as of 10/14/2023) Resolved Problems Problem Noted Date Diagnosed Date Resolved Date Prediabetes 09/22/2021 08/09/2022 MSSA bacteremia 08/01/2021 08/07/2021 Sepsis 08/01/2021 08/07/2021 COPD, group B, by GOLD 2017 classification 05/08/2021 06/21/2021 Overview: Per COPD GOLD Classification Obstructive lung disease 04/10/2021 Overview: Per COPD GOLD Classification documented as of this encounter (statuses as of 10/14/2023) Immunizations Name Administration Dates Next Due COVID-19 mRNA, LNP-s, No Pre serve, 2-Dose Series (Neurotrack) 09/23/2021 documented as of this encounter Social [...] Team (Late st Contact Info) Description 10/15/2023 6:45 AM EST Anticoagulation Pharmacy Call Center WB 58[address]60 [facility] [place] [address] [facility] 58 60 [facility] [place] [address] 10/15/2023 1:00 PM EST Hospital Encounter Interventional Radiology [facility], [address] [place] [address] 10/18/2023 11:00 AM EST Rehab Services Speech Therapy, [address] [address] Lisa Hairston, JUNIOR NETWORK ENGINEER [address] [place] [address] 10/24/2023 7:20 AM EST Laboratory Laboratory Hem/Onc [facility], [place] [address] [place] [phone] [place], Lab Med4 [address] [place] [address] 10/24/2023 8:00 AM EST Office Visit Hematology Oncology [facility], [place] [address] [place] [phone] Yanni Yao CRNP [address] [place] [address] 10/24/2023 9:00 AM EST Hem/Onc Treatment Hematology Oncology [facility], [place] [address] [place] [address] [place], Chair 4 Hem/Onc [address] [place] [address] 10/30/2023 11:20 AM EST Office Visit Neurology [facility] [place] [address] [facility] [place] [address] Kathy Pryor PA-C [address] [facility] [place] [address] 11/01/2023 10:00 AM EST Rehab Services Speech Therapy, [address] [address] Lisa Hairston, JUNIOR NETWORK ENGINEER [address] [place] [address] 11/05/2023 6:15 AM EST Hospital Encounter MRI, [address] [address] 11/05/2023 8:00 AM EST Appointment MRI, [address] [address] 11/11/2023 11:30 AM EST Telemedicine Radiation Oncology, [address] [address] Melissa Beal MD [address] [place] [address] [place] [address] 11/15/2023 9:40 AM EST Office Visit [address] [phone] Matthew Herrmann PA-C [address] [place] [address] 11/18/2023 7:30 AM EST NeuroDiagnostic Study Neurophysiology, [address] [id number] 1, Neurophys Tech [address] [place] [id number] 11/21/2023 7:20 AM EST Laboratory Laboratory Hem/Onc [facility], [address] [phone] [place], Lab Med4 [address] [place] [address] 11/21/2023 8:00 AM EST Office Visit Hematology Oncology [facility], [address] [phone] Nicole Carrillo PA-C [address] [place] [id number] 11/21/2023 9:00 AM EST Hem/Onc Treatment Hematology Oncology [facility], [address] [phone] [place], Chair 4 Hem/Onc [address] [facility] [place] [address] 12/04/2023 11:00 AM EST Office Visit Cardiology, [facility] [address] [place] [address] Santa Quintero CRNP [address] [place] [address] Pending Results Name Type Priority Associated Diagnoses Date /Time HEPARIN, LOW MOLECULAR WEIGHT Lab Routine Acute deep vein thrombosis (DVT) of proximal vein of right lower extremity (HCC) 10/14/2023 12:36 PM EST Health Maintenance Due Date Last [...] this encounter Medical Devices Implanted Type Area Color Depositing Machine Tender Device Identifier Shelf Expiration Date Model / Serial / Lot Power Port 8fr Sngl Lumen Plas - [id number] Implanted:Qty: 1 on 04/24/2021 at [facility] CR BARD : PERIPHERAL VASCULAR [id number] 02/24/2022 [id number] / / [id number] documented as of this encounter Visit Diagnoses [...] the patient have Health Care Power of Content Strategy Lead? No Code Status History Code Status Date Activated Date Inactivated Comments Full Code 05/23/2021 12:21 PM 05/24/2021 9:38 PM This order reflects the patients wishes and were consensually agreed upon. Question Answer Comments Discussion of Advance Directives occurred with: Patient Healthcare Agents on File Name Relationship Healthcare Agent Relationshi p Communication Rose Mary Brothers Spouse Health Care Agent Care Teams Manufacturing Tech Relationship Specialty Start Date End Date Matthew Herrmann PA-C [address] [place] [address] [phone] PCP - General Physician Member Service Representative 03/22/21 documented as of this encounter
[2024-04-11] MEDS: TOPIRAMATE 25 MG TAB PO SCH (20:11)
[2024-04-11] MEDS: HEPARIN 100 UNIT/ML 5ML FLUSH FLUSH PRN (20:14)
[2024-04-12] MEDS: NSS + 20MEQ KCL 20 MEQ/1,000 ML BAG IV ONE (00:20)
[2024-04-12 07:28] LABS: BUN Creatinine Ratio 14.6 (10-20); Calcium 8.2 mg/dl (8.6-10.3); Creatinine Clr Calc Pharmacy 113.3 ml/min; Est GFR (African American) 110.8 ml/min; Est GFR (Non-African American) 95.6 ml/min; Potassium 3.8 mmol/L (3.5-5.1)
--- NOTE | 2024-04-12 12:12 | Hospitalist Progress Note ---
Date of Service April 12, 2024 Assessment & Plan (1) Fever: Plan: Fever Immunocompromised State Diarrhea Likely due to chemotherapy Vs Viral illness No obvious source of infection currently --BioFire negative --Stool PCR, C. difficile negative --CXR:No acute abnormalities and in particular no radiographic evidence of pneumonia. --UA within normal limits --Normal lactate, procalcitonin level --Blood cultures: Negative to date received IV fluids Imodium as needed Will hold off on antibiotics for now unless patient develops fever again No recurrence of fever, diarrhea resolved Plan to be discharged home today H/O Metastatic non-small cell lung CA ongoing chemotherapy Needs follow-up with oncology on discharge Recurrent PE/DVT Was on Xarelto Currently on therapeutic Lovenox--continue HTN Currently hypotensive Hold amlodipine, lasix Monitor BP H/O Coronary vasospasm H/O Embolic CVA Continue Lipitor, Lovenox COPD No signs of exacerbation Monitor Prediabetes Last HbA1c 6.2 Anemia of chronic disease Hb at baseline DVT Px: Lovenox SQ Code Status Full code Disposition Home Admission and Anticipated Discharge Date Admission Date: April 10, 2024 Subjective Patient is seen and examined at bedside Doing well today Eager to get discharged Diarrhea resolved Offers no new complaints Patient family at bedside Denies any nausea, vomiting, chest pain, dyspnea, abdominal pain Review of Systems Review of Systems: All systems reviewed & are unremarkable except as noted in Subjective Physical Exam Physical Exam: Physical Exam: Vitals signs as noted above General Appearance:Moderately built and nourished, no apparent distress Head: normocephalic, Atraumatic Eyes: normal inspection, EOMI Neck: supple, Trachea midline Respiratory/Chest: Decreased breath sounds, CTA, No accessory muscle use Cardiovascular: S1, S2, No murmur Abdomen/GI:Soft, Non tender, Bowel sounds present Extremities/Musculoskeletal:normal inspection, no edema Neurologic/Psych:AAOX3, grossly no focal neurological deficits Skin: normal color, warm Results & Data Results & Data Vital Signs (Past 12 Hours) Vital Signs Temp Pulse Resp BP Pulse Ox O2 Del Method 04/12/24 07:20 36.6 C 62 16 115/75 95 Room Air Laboratory Results [facility] 04/12/24 06:30 Sodium 143 Potassium 3.8 Chloride 114 H Carbon Dioxide 26 BUN 13 Creatinine 0.89 Glucose 104 H Calcium 8.2 L
--- NOTE | 2024-04-12 12:17 | Discharge Summary ---
Date of Service April 12, 2024 Admission HPI Per Admitting Provider History obtained from patient, family, and records. 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 Last confinement July 2023 for acute CVA likely thromboembolic in the setting of COVID-19 infection. Patient had chills today associated with fever. Watery diarrhea without abdominal pain. Not sure about sick contacts. No recent antibiotic Rx. No out-of-town travel or new restaurants. No chest pain, no SOB, no dysuria symptoms. No issues with a port site. IV cefepime administered at the ER. 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 Admission Exam Per Admitting Provider GENERAL: Slightly uncomfortable, obese, pleasant, no respiratory distress SKIN: Pallor, warm HEENT: Alopecia, pale palpebral conjunctivae, no ptosis, dry buccal mucosa NECK : Supple, no tenderness CHEST : decreased breath sounds, no tenderness HEART : RRR, no obvious murmurs ABDOMEN: Some distention, nontender EXTREMITIES : No LE swelling/tenderness, no other conspicuous deformities noted NEUROLOGIC : Coherent, no facial asymmetry, no other gross focality Principal Diagnosis Fever Immunocompromised State Diarrhea Discharge Data Allergies Allergy/AdvReac Type Severity Reaction Status Date / Time No Known Allergies Allergy Verified 10/08/23 00:06 Consultations 04/10/24 19:43 ED Decision to Admit Stat Procedures Performed Laboratory Results WBC 5.46 K/ul (4.8-10.8) 04/11/24 07:04 RBC 4.25 M/uL (4.70-6.10) L 04/11/24 07:04 Hgb 12.7 g/dl (14.0-18.0) L 04/11/24 07:04 Hct 37.7 % (42.0-52.0) L 04/11/24 07:04 MCV 88.7 fL (80.0-100.0) 04/11/24 07:04 MCH 29.9 pg (25.0-34.0) 04/11/24 07:04 MCHC 33.7 g/dL (32.0-36.0) 04/11/24 07:04 RDW Std Deviation 52.3 fL (36.4-46.3) H 04/11/24 07:04 RDW Coeff of Jose 16.3 % (11.5-14.5) H 04/11/24 07:04 Plt Count 264 K/uL (130-400) 04/11/24 07:04 MPV 10.6 fL (9.4-12.4) 04/11/24 07:04 Immature Gran % (Auto) 0.9 % 04/11/24 07:04 Neut % (Auto) 71.7 % 04/11/24 07:04 Lymph % (Auto) 17.9 % 04/11/24 07:04 Ashley % (Auto) 7.5 % 04/11/24 07:04 Eos % (Auto) 1.6 % 04/11/24 07:04 Baso % (Auto) 0.4 % 04/11/24 07:04 Neut # (Auto) 3.91 K/uL (1.40-6.50) 04/11/24 07:04 Lymph # (Auto) 0.98 K/uL (1.20-3.40) L 04/11/24 07:04 Ashley # (Auto) 0.41 K/uL (0.11-0.59) 04/11/24 07:04 Eos # (Auto) 0.09 K/uL (0.00-0.50) 04/11/24 07:04 Baso # (Auto) 0.02 K/uL (0.00-0.20) 04/11/24 07:04 Immature Gran # (Auto) 0.05 K/uL (0.01-0.20) 04/11/24 07:04 Absolute Nucleated RBC 0.02 K/uL (0.00-0.12) 04/11/24 07:04 Nucleated RBC % (auto) 0.4 % 04/11/24 07:04 PT 10.2 Seconds (9.0-12.0) 04/10/24 17:35 INR 0.9 (0.9-1.1) 04/10/24 17:35 APTT 31 Seconds (21-31) 04/10/24 17:35 PTT Ratio 1.2 04/10/24 17:35 Sodium 143 mmol/L (136-145) 04/12/24 06:30 Potassium 3.8 mmol/L (3.5-5.1) 04/12/24 06:30 Chloride 114 mmol/L (98-107) H 04/12/24 06:30 Carbon Dioxide 26 mmol/L (21-32) 04/12/24 06:30 Anion Gap 3 (3-11) 04/12/24 06:30 BUN 13 mg/dl (6-23) 04/12/24 06:30 Creatinine 0.89 mg/dl (0.6-1.4) 04/12/24 06:30 Est Cr Clr Drug Dosing 113.3 ml/min 04/12/24 06:30 Est GFR ( Amer) 110.8 ml/min 04/12/24 06:30 Est GFR (Non-Af Amer) 95.6 ml/min 04/12/24 06:30 BUN/Creatinine Ratio 14.6 (10-20) 04/12/24 06:30 Glucose 104 mg/dl (70-99(Fasting)) H 04/12/24 06:30 Lactate 0.8 mmol/L (0.4-2.0) 04/10/24 19:30 Calcium 8.2 mg/dl (8.6-10.3) L 04/12/24 06:30 Magnesium 1.8 mg/dl (1.7-2.4) 04/10/24 17:35 Total Bilirubin 0.5 mg/dl (0.2-1.0) 04/10/24 17:35 AST 16 U/L (13-39) 04/10/24 17:35 ALT 28 U/L (7-52) 04/10/24 17:35 Alkaline Phosphatase 69 U/L (34-104) 04/10/24 17:35 Troponin I High Sens 4.3 pg/ml (0-20) 04/10/24 17:35 B-Natriuretic Peptide 16 pg/ml (0-100) 04/10/24 17:35 Total Protein 6.9 gm/dl (6.0-8.3) 04/10/24 17:35 Albumin 4.1 gm/dl (3.4-5.0) 04/10/24 17:35 Globulin 2.8 gm/dl (2.5-4.0) 04/10/24 17:35 Albumin/Globulin Ratio 1.5 (0.9-2) 04/10/24 17:35 Procalcitonin 0.12 ng/ml (0-0.5) 04/10/24 17:35 Urine Color Yellow 04/10/24 19:05 Urine Appearance Clear (Clear) 04/10/24 19:05 Urine pH 5.5 (4.5-7.5) 04/10/24 19:05 Ur Specific Hutchinson 1.012 (1.000-1.030) 04/10/24 19:05 Urine Protein Negative (Negative) 04/10/24 19:05 Urine Glucose (UA) Negative (Negative) 04/10/24 19:05 Urine Ketones Negative (Negative) 04/10/24 19:05 Urine Blood Negative (Negative) 04/10/24 19:05 Urine Nitrite Negative (Negative) 04/10/24 19:05 Urine Bilirubin Negative (Negative) 04/10/24 19:05 Urine Urobilinogen Negative (Negative) 04/10/24 19:05 Ur Leukocyte Esterase Negative (Negative) 04/10/24 19:05 Stl C. cayetanensis PCR Not Detected (NotDetected) 04/10/24 19:05 Stool Rotavirus A PCR Not Detected (NotDetected) 04/10/24 19:05 Stl Adenov F 40/41 PCR Not Detected (NotDetected) 04/10/24 19:05 Stool Astrovirus (PCR) Not Detected (NotDetected) 04/10/24 19:05 Stool Campylobacter PCR Not Detected (NotDetected) 04/10/24 19:05 Stl C. diff Tox B Gene Negative Cdiff Gene (Neg) 04/10/24 19:05 Stool Cryptosporidium PCR Not Detected (NotDetected) 04/10/24 19:05 Stl E.coli Shiga Tox PCR Not Detected (NotDetected) 04/10/24 19:05 Stl Enterotoxigenic E PCR Not Detected (NotDetected) 04/10/24 19:05 Stool EPEC (PCR) Not Detected (NotDetected) 04/10/24 19:05 Stool EAEC (PCR) Not Detected (NotDetected) 04/10/24 19:05 Stl E. histolytica PCR Not Detected (NotDetected) 04/10/24 19:05 Stool Giardia Lamblia PCR Not Detected (NotDetected) 04/10/24 19:05 Stool Salmonella PCR Not Detected (NotDetected) 04/10/24 19:05 Stool Sapovirus (PCR) Not Detected (NotDetected) 04/10/24 19:05 Stl P. shigelloides PCR Not Detected (NotDetected) 04/10/24 19:05 Stl Shigella/EIEC PCR Not Detected (NotDetected) 04/10/24 19:05 St Y.enterocolitica PCR Not Detected (NotDetected) 04/10/24 19:05 Stool Vibrio (PCR) Not Detected (NotDetected) 04/10/24 19:05 Stl Vibrio cholerae PCR Not Detected (NotDetected) 04/10/24 19:05 Stl Norovirus GI/GII PCR Not Detected (NotDetected) 04/10/24 19:05 Adenovirus (PCR) Not Detected (NotDetected) 04/10/24 17:50 Anaplasma Smear See Comment 04/10/24 19:38 B. pertussis DNA (PCR) Not Detected (NotDetected) 04/10/24 17:50 B.parapertussis DNA PCR Not Detected (NotDetected) 04/10/24 17:50 Lyme Disease Screen Negative (Negative) 04/10/24 19:38 C. pneumoniae DNA (PCR) Not Detected (NotDetected) 04/10/24 17:50 Coronavirus OC43 (PCR) Not Detected (NotDetected) 04/10/24 17:50 Coronavirus HKU1 (PCR) Not Detected (NotDetected) 04/10/24 17:50 Coronavirus 229E (PCR) Not Detected (NotDetected) 04/10/24 17:50 SARS-CoV-2 (PCR) Not Detected (NotDetected) 04/10/24 17:50 Coronavirus NL63 (PCR) Not Detected (NotDetected) 04/10/24 17:50 Human Metapneumovir PCR Not Detected (NotDetected) 04/10/24 17:50 Influenza Type A (PCR) Not Detected (NotDetected) 04/10/24 17:50 Influenza Type B (PCR) Not Detected (NotDetected) 04/10/24 17:50 M. pneumoniae (PCR) Not Detected (NotDetected) 04/10/24 17:50 Parainfluenza 1 (PCR) Not Detected (NotDetected) 04/10/24 17:50 Parainfluenza 2 (PCR) Not Detected (NotDetected) 04/10/24 17:50 Parainfluenza 3 (PCR) Not Detected (NotDetected) 04/10/24 17:50 Parainfluenza 4 (PCR) Not Detected (NotDetected) 04/10/24 17:50 RSV (PCR) Not Detected (NotDetected) 04/10/24 17:50 Entero/Rhino (PCR) Not Detected (NotDetected) 04/10/24 17:50 Impressions Chest X-Ray 04/10/24 18:43 XR chest 1V portable CLINICAL HISTORY: fever TECHNIQUE: Single frontal radiograph of the chest was obtained. Comparison: Comparison is made to chest radiograph 08/20/2023 FINDINGS: A port catheter is seen. The cardiomediastinal silhouette is normal. The lungs are clear. No evidence of pleural effusion or pneumothorax. IMPRESSION: No acute abnormalities and in particular no radiographic evidence of pneumonia. ACT 112: Negative or not required by law. Electronically signed by: Michael Gomez M.D. 04/10/2024 9:58 PM Hospital Course (1) Fever: Fever Immunocompromised State Diarrhea Likely due to chemotherapy Vs Viral illness No obvious source of infection currently --BioFire negative --Stool PCR, C. difficile negative --CXR:No acute abnormalities and in particular no radiographic evidence of pneumonia. --UA within normal limits --Normal lactate, procalcitonin level --Blood cultures: Negative to date received IV fluids Imodium as needed Will hold off on antibiotics for now unless patient develops fever again No recurrence of fever, diarrhea resolved Plan to be discharged home today H/O Metastatic non-small cell lung CA ongoing chemotherapy Needs follow-up with oncology on discharge Recurrent PE/DVT Was on Xarelto Currently on therapeutic Lovenox--continue HTN Currently hypotensive Hold amlodipine, lasix Monitor BP H/O Coronary vasospasm H/O Embolic CVA Continue Lipitor, Lovenox COPD No signs of exacerbation Monitor Prediabetes Last HbA1c 6.2 Anemia of chronic disease Hb at baseline DVT Px: Lovenox SQ Code Status Full code Disposition Home Total Time Total Time Spent Total Time Spent (In Minutes): 51 minutes Discharge Plan Discharge Items Patient Disposition: Home - Self-Care Reason For Visit: FEVER, PRIVATE RM PER [facility] RE[facility] Discharge Diagnosis: Fever Immunocompromised State Diarrhea Activity: Per Instructions section Exercise/Sports: Wait until after follow-up appointment Non-emergency contact: Primary Care Provider and Oncologist Call non-emergency contact if: you have any medication questions, your symptoms worsen, your pain is concerning for you and you have a fever Follow-up/Referrals: Matthew Spivey PA-C [Primary Care Provider] - Diet: Heart Healthy Addtl Attending Provider Instructions: Follow-up with your primary care physician in 1 week Follow-up with your oncologist as advised --Hold taking your amlodipine, Lasix for 3 days. Monitor your blood pressure regularly and discuss with your physician for further adjustment of medications as needed. --Your final blood cultures are pending at the time of discharge. Follow-up with your physician for results. Seek immediate medical attention if your symptoms reoccur or worsen Please take all medications as instructed on discharge list below. Please call if you have any questions or problems. You can reach a [facility] hospitalist on duty at [facility] 24 hours a day by calling [phone] Pending Studies at Discharge: Yes Studies:: Blood culture Stand-Alone Forms: My [facility], Smoking Cessation Medications and DC Order Prescriptions: New loperamide 2 mg Capsule 2 mg PO Q6H PRN (Reason: loose stool) Qty: 15 0RF Continued atorvastatin 40 mg Tablet 40 mg PO DAILY Qty: 30 0RF olanzapine 5 mg tablet 5 mg PO DIRECTED Rx Instructions: TAKES NIGHT OF CHEMO, THEN FOR 4 MORE DAYS, REPEAT WITH CHEMO RX. topiramate 25 mg tablet 25 mg PO HS Rx Instructions: PER PT'S SPOUSE "STAYING AT 25 MG FOR NOW". prochlorperazine maleate 10 mg tablet 10 mg PO Q6H PRN (Reason: NAUSEA/VOMITING) dexamethasone 4 mg tablet 4 mg PO UD PRN (Reason: chemo days) vitamin E 268 mg (400 unit) Capsule 268 mg PO DAILY enoxaparin 100 mg/mL syringe 80 mg subcut BID ondansetron HCl 8 mg tablet 8 mg PO Q6H PRN (Reason: NAUSEA/VOMITING) folic acid 1 mg tablet 1 mg PO QAM nitroglycerin [Nitrostat] 0.4 mg Tablet, Sublingual 0.4 mg sublingual UD PRN (Reason: chest pain) Qty: 10 0RF Vitamin D3 50 mcg PO DAILY Held amlodipine 2.5 mg tablet 2.5 mg PO DAILY Hold Instructions: For 3 days furosemide 20 mg tablet 20 mg PO DAILY Hold Instructions: for 3 days Discharge Orders: Discharge Order (Routine); Ordered 04/12/24 Ordered By: Daniel Cervantes Admission Data Admit Date/Time: 04/10/24 20:25 Attending Provider: Daniel Cervantes Admit Provider: Anthony Dawn Primary Care Provider: Matthew Spivey Other Providers: Anthony Dawn; [facility]
== END 2024-04-12 12:54 | disposition home or self-care (01) ==
LOC: 3W 17:13 → ED 17:13 → 3W 22:17